=== PATIENT | male | born 1940 | race Caucasian/White ===

== ENCOUNTER → 2016-12-01 | Outpatient (CLI) | payer OTHER ==
[~2016-12-01] MED LIST: ASPI81TA48 PO; ATEN50TA PO; CYCL0.05 OPB; FEXO1TAB46 PO; GLIP-199 PO; HYG/25 PO; LISI-729 PO; MAGN200T4 PO; METF1000 PO; OMEGCAP2 PO; OMEP20CA9 PO; TRET0.0522 TOP; WLC625 PO
[2016-12-01 11:06] LABS: BLOOD UREA NITROGEN 22 mg/dl (7-18); BUN/CREATININE RATIO 21.7 (10-20)
== END | disposition home or self-care (01) ==
LOC: C.LAB 09:12
PROVIDERS: ATTEND Urology
DX: N28.1 Cyst of kidney, acquired (principal); N40.1 Benign prostatic hyperplasia with lower urinary tract symptoms

== ENCOUNTER → 2016-12-17 | Outpatient (CLI) | payer OTHER ==
[~2016-12-17] MED LIST changes: +GADAVIST IV PRN
--- NOTE | 2016-12-17 11:37 | DIAGNOSTIC IMAGING REPORT ---
ABDOMINAL MRI WITH AND WITHOUT INTRAVENOUS CONTRAST HISTORY: N28.1 Renal cyst, [id number] Benign prostatic hyperplasia wit TECHNIQUE: Multiplanar multisequence MRI of the abdomen were performed both before and after the intravenous administration of contrast to evaluate the kidneys. COMPARISON STUDY: None. FINDINGS: Multiple bilateral T2 hyperintense lesions seen throughout the kidneys. The majority of these are T1 hypointense. However, there is a 2 cm T1 hyperintense lesion within the lower pole of the right kidney and a 3.9 cm T1 hyperintense lesion within the upper pole the left kidney. No lesions demonstrate enhancement and are therefore consistent with a combination of simple and hemorrhagic/proteinaceous cyst. No solid enhancing renal masses identified. No hydronephrosis. The visualized gallbladder, spleen, pancreas, and adrenal glands are unremarkable. No retroperitoneal lymphadenopathy. A 7 mm cyst within the left hepatic lobe. IMPRESSION: Multiple bilateral renal cysts as described above. No solid enhancing renal masses. Electronically signed by: Nathan Buchanan M.D. 12/17/2016 11:35 AM Dictated Date/Time: 12/17/2016 11:28 AM
== END ==
LOC: C.MRI 08:32
PROVIDERS: ATTEND Urology
DX: N28.1 Cyst of kidney, acquired (principal); N40.1 Benign prostatic hyperplasia with lower urinary tract symptoms

== ENCOUNTER → 2017-09-30 | Outpatient (CLI) | payer OTHER ==
[~2017-09-30] MED LIST changes: -GADAVIST IV PRN; +TRET-55 TOP; -TRET0.0522 TOP
== END | disposition home or self-care (01) ==
LOC: C.LAB 10:51
PROVIDERS: ATTEND Urology
DX: N28.1 Cyst of kidney, acquired (principal)

== ENCOUNTER 2022-11-12 12:29 | Inpatient (IN) ==
[2022-11-12 13:36] LABS: Basophils # (auto) 0.03 K/uL (0.00-0.20); Basophils % (auto) 0.7 %; Eosinophils # (auto) 0.12 K/uL (0.00-0.50); Eosinophils % (auto) 2.6 %; Hematocrit (blood only) 43.9 % (42.0-52.0); Hemoglobin 15.5 g/dl (14.0-18.0); Immature Granulocytes # (auto) 0.01 K/uL (0.01-0.20); Immature Granulocytes % (auto) 0.2 %; Lymphocytes # (auto) 1.08 K/uL (1.20-3.40); Lymphocytes % (auto) 23.4 %; Mean Corpuscular Hemoglobin 33.9 pg (25.0-34.0); Mean Corpuscular Hgb Conc 35.3 g/dL (32.0-36.0); Mean Corpuscular Volume 96.1 fL (80.0-100.0); Mean Platelet Volume 10.2 fL (9.4-12.4); Monocytes # (auto) 0.39 K/uL (0.11-0.59); Monocytes % (auto) 8.5 %; Neutrophils # (auto) 2.98 K/uL (1.40-6.50); Neutrophils % (auto) 64.6 %; Platelet Count 163 K/uL (130-400); RDW Standard Deviation 45.8 fL (36.4-46.3); Red Blood Count 4.57 M/uL (4.70-6.10); White Blood Count 4.61 K/ul (4.8-10.8)
--- NOTE | 2022-11-12 13:46 | XRay Report ---
SINGLE VIEW CHEST CLINICAL HISTORY: Atypical chest pain. FINDINGS: A PA chest radiograph is compared to study dated 03/17/2013. The patient is status post midli ne sternotomy.The heart is enlarged noting atherosclerotic calcification of the thoracic aorta. The p ulmonary vasculature is noncongested. There is an indeterminant 4 cm opacity at the right lung base a t the left lung appears clear. No pleural effusion or pneumothorax is seen. The skeletal structures a re osteopenic. The bony thorax is grossly intact. IMPRESSION: 1. Cardiomegaly without radiographic evidence of congestive failure. 2. There is a 4 cm opacity at the right lung base. This is indeterminant and could represent a round pneumonia. A mass lesion is not excluded. A CT scan of the chest is recommended for further assessmen t ACT 112: Positive. There are findings on this exam that require communication between the performing entity and the patient following Patient Test Result Information Act ([place] Act 112) guidelines. Electronically signed by: Kris Gonzalez M.D. 11/12/2022 1:44 PM
[2022-11-12 14:00] LABS: Albumin Globulin Ratio 1.4 (0.9-2); Albumin Level 4.2 gm/dl (3.4-5.0); BUN Creatinine Ratio 23.8 (10-20); Bilirubin,Total 0.7 mg/dl (0.2-1.0); Calcium 9.7 mg/dl (8.6-10.3); Creatinine Clr Calc Pharmacy 49.1 ml/min; Est GFR (African American) 79.9 ml/min; Est GFR (Non-African American) 68.9 ml/min; Potassium 4.1 mmol/L (3.5-5.1); Total Protein 7.2 gm/dl (6.0-8.3)
[2022-11-12 14:06] LABS: Partial Thromboplastin Time 28.2 Seconds (21.0-31.0); Prothrombin Time 11.2 Seconds (9.0-12.0)
--- NOTE | 2022-11-12 15:14 | Emergency Department Note ---
Impression & Plan Non-ST elevation NV (NSTEMI) ED Provider Note HISTORY OF PRESENT ILLNESS: Patient is an 82-year-old male presenting for admission. 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 Patient denies any chest pain or shortness of breath. Denies any lightheadedness or dizziness. He does not have a pacemaker currently. Denies any DVT or PE history. He is not on any anticoagulation. ROS: as above PHYSICAL EXAM: Constitutional: Patient appears in no acute distress. HENT: Head: Normocephalic and atraumatic. Eyes: EOMI, PERRL Mouth/Throat: Mucous membranes moist. Neck: Trachea midline. Neck supple. Cardiovascular: RRR, No murmurs, rubs or gallops. Intact distal pulses. Pulmonary/Chest: No respiratory distress. Breath sounds clear and equal bilaterally. No wheezes or rales. Abdominal: Abdomen soft, no tenderness, rebound or guarding. Musculoskeletal: No edema, tenderness or deformity noted. Skin: Warm and dry. No rash, erythema, pallor or cyanosis Psychiatric: Appropriate mood and affect for situation. Neurological: Alert and keenly responsive. CN II-XII grossly intact, moving all extremities equally and fully. MDM: - Vitals signs showed hypertension. - History obtained via patient. Patient presents for admission. Patient was seen in cardiology clinic today and was referred to the ER for admission for pacemaker placement. Patient denies any complaints on arrival to the ER. Denies any chest pain or shortness of breath. He is not on any anticoagulation. - Chronic conditions affecting care: CAD; HTN; DM-2; HLD - Differential diagnoses include, but are not limited to: ACS; electrolyte abnormality; pneumonia; dysrhythmia - Order placed for continuous cardiac monitoring. At this time, monitor showed rate of 83 bpm with normal sinus rhythm, per my interpretation. - External medical records reviewed. Documentation from cardiology clinic note was reviewed. Per clinic note, the plan was "transfer to [facility] for inpatient evaluation and treatment, laboratory work to evaluate for underlying causes such as Lyme, resting echocardiogram to assess degree of aortic stenosis and LV systolic function prior to permanent pacemaker implantation." Per documentation, the patient had A-V dissociation on his EKG today. - EKG reviewed by myself showed normal sinus rhythm. Noted to have a first- degree heart block with an occasional PAC. Rate 81 bpm. QTc 427. No acute ischemic changes. - Laboratory workup interpreted by myself showed leukopenia (WBC 4.61); normal electrolytes; elevated troponin (22) - Lyme testing added to workup - Patient remained persistently hypertensive in ER. Given 5 mg IV hydralazine - CXR negative for pneumonia, per my interpretation. Radiology reports cardiomegaly and concern for 4 cm opacity in the right lung base which could be pneumonia versus mass lesion. - Aspirin not given to patient, as he is noted to have an allergy. 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 ASSESSMENT AND PLAN: Diagnosis: NSTEMI Plan: admit Past Med/Surg History Medical History CAD (coronary artery disease) HTN (hypertension) Hx of myocardial infarction Hyperlipidemia Osteoarthritis Statin myopathy T2DM (type 2 diabetes mellitus) Surgical History History of cataract extraction History of coronary artery bypass graft x 3 History of inguinal hernia repair Family History Father Alcoholism Brother Diabetes Mother No problems noted. Social History Smoking Status: Former smoker Tobacco Type: Cigarettes Hx Alcohol Use: No Preferred Language: Spanish Feels Safe at Home: Yes Allergies Allergies Allergy/AdvReac Type Severity Reaction Status Date / Time simvastatin Allergy Intermediate HIVES PER Verified 11/12/22 15:17 GMG acetaminophen AdvReac Severe renal Verified 11/12/22 15:17 complications PER GMG aspirin AdvReac Intermediate STOMACH Verified 11/12/22 15:17 PAIN PER GMG atorvastatin AdvReac Intermediate CRAMPING Verified 11/12/22 15:17 PER GMG cholestyramine AdvReac Intermediate KIDNEY Verified 11/12/22 15:17 PAIN PER GMG ezetimibe AdvReac Intermediate CRAMPING Verified 11/12/22 15:17 IN ANKLES, FEET TURNED INWARD PER GMG niacin AdvReac Intermediate MUSCLE Verified 11/12/22 15:17 PAIN PER [facility] Home Meds Home Medications Medication Instructions Recorded Confirmed fexofenadine 180 mg tablet 180 mg PO DAILY 02/21/20 11/12/22 (Sandee Allergy) metformin 1,000 mg tablet 1,000 mg PO BIDM 02/21/20 11/12/22 alirocumab 75 mg/mL subcutaneous 75 mg subcut Q14D 08/06/20 11/12/22 pen injector (Praluent Pen) blood sugar diagnostic (OneTouch #10 ea 08/06/20 09/30/22 Ultra Blue Test Strip) finasteride 5 mg tablet 5 mg PO DAILY 08/06/20 11/12/22 furosemide 20 mg tablet 20 mg PO DAILY 08/06/20 11/12/22 isosorbide mononitrate 60 mg 60 mg PO DAILY 08/06/20 11/12/22 tablet,extended release 24 hr magnesium oxide 200 mg PO BID 08/06/20 11/12/22 multivitamin 1 tab PO DAILY 08/06/20 11/12/22 terazosin 2 mg capsule 2 mg PO DAILY 08/06/20 11/12/22 tretinoin 0.05 % topical cream 1 applic topical HS 08/06/20 11/12/22 valsartan 320 mg tablet 160 mg PO BID 08/06/20 11/12/22 amlodipine 2.5 mg tablet 2.5 mg PO QAM 11/12/22 11/12/22 cyanocobalamin (vitamin B-12) 500 500 mcg PO DAILY 11/12/22 11/12/22 mcg tablet (Vitamin B-12) empagliflozin 25 mg tablet 25 mg PO QDL 11/12/22 11/12/22 (Jardiance) insulin aspart U-100 100 unit/mL 3 - 5 unit subcut TID 11/12/22 11/12/22 (3 mL) subcutaneous pen (Novolog FlexPen U-100 Insulin aspart) insulin glargine 100 unit/mL (3 7 unit subcut DAILY 11/12/22 11/12/22 mL) subcutaneous pen (Basaglar KwikPen U-100 Insulin) Previous Rx's Medication Instructions Recorded FreeStyle Devi 2 Sensor (flash #2 ea 10/16/20 glucose sensor) pen needle, diabetic 32 gauge x #400 ea 01/27/22" (BD Ultra-Fine Ashley Pen Needle) Results & Data (ED) Vital Signs Vital Signs - 24 hr 11/12/22 12:29 11/12/22 12:29 11/12/22 12:47 Temperature 36.6 C Temperature Source Temporal Artery Scan Pulse Rate 86 Pulse Rhythm Respiratory Rate 18 Blood Pressure 207/95 H Blood Pressure Mean 132 Pulse Oximetry 93 Oxygen Delivery Method Room Air Room Air Room Air Sepsis Recent Fever Within 48 Hours No Sepsis New/Unexplained Change in Mental Status N/A Sepsis Action Taken by Nursing No Action Required 11/12/22 12:47 Temperature Temperature Source Pulse Rate 83 Pulse Rhythm Regular Respiratory Rate 18 Blood Pressure Blood Pressure Mean Pulse Oximetry 94 Oxygen Delivery Method Room Air Sepsis Recent Fever Within 48 Hours Sepsis New/Unexplained Change in Mental Status Sepsis Action Taken by Nursing Laboratory Data 11/12/22 12:50 11/12/22 12:50 Lab Results 11/12/22 11/12/22 11/12/22 Range/Units 12:50 12:50 12:50 WBC 4.61 L (4.8-10.8) K/ul RBC 4.57 L (4.70-6.10) M/uL Hgb 15.5 (14.0-18.0) g/dl Hct 43.9 (42.0-52.0) % MCV 96.1 (80.0-100.0) fL MCH 33.9 (25.0-34.0) pg MCHC 35.3 (32.0-36.0) g/dL RDW Std Deviation 45.8 (36.4-46.3) fL RDW Coeff of Christiano 13.0 (11.5-14.5) % Plt Count 163 (130-400) K/uL MPV 10.2 (9.4-12.4) fL Immature Gran % (Auto) 0.2 % Neut % (Auto) 64.6 % Lymph % (Auto) 23.4 % [place] % (Auto) 8.5 % Eos % (Auto) 2.6 % Baso % (Auto) 0.7 % Neut # (Auto) 2.98 (1.40-6.50) K/uL Lymph # (Auto) 1.08 L (1.20-3.40) K/uL [place] # (Auto) 0.39 (0.11-0.59) K/uL Eos # (Auto) 0.12 (0.00-0.50) K/uL Baso # (Auto) 0.03 (0.00-0.20) K/uL Immature Gran # (Auto) 0.01 (0.01-0.20) K/uL PT 11.2 (9.0-12.0) Seconds INR 1.0 (0.9-1.1) APTT 28.2 (21.0-31.0) Seconds PTT Ratio 1.0 Sodium 138 (136-145) mmol/L Potassium 4.1 (3.5-5.1) mmol/L Chloride 104 (98-107) mmol/L Carbon Dioxide 26 (21-32) mmol/L Anion Gap 8 (3-11) BUN 24 H (6-23) mg/dl Creatinine 1.01 (0.6-1.4) mg/dl Est Cr Clr Drug Dosing 49.1 ml/min Est GFR ( Amer) 79.9 ml/min Est GFR (Non-Af Amer) 68.9 ml/min BUN/Creatinine Ratio 23.8 H (10-20) Glucose 114 H (70-99(Fasting)) mg/dl Calcium 9.7 (8.6-10.3) mg/dl Total Bilirubin 0.7 (0.2-1.0) mg/dl AST 21 (13-39) U/L ALT 15 (7-52) U/L Alkaline Phosphatase 77 (34-104) U/L Troponin I High Sens 22.0 H (0-20) pg/ml Total Protein 7.2 (6.0-8.3) gm/dl Albumin 4.2 (3.4-5.0) gm/dl Globulin 3.0 (2.5-4.0) gm/dl Albumin/Globulin Ratio 1.4 (0.9-2) Imaging Data Radiologist's Impression: Chest X-Ray 11/12/22 12:47 SINGLE VIEW CHEST CLINICAL HISTORY: Atypical chest pain. FINDINGS: A PA chest radiograph is compared to study dated 03/17/2013. The patient is status post midline sternotomy.The heart is enlarged noting atherosclerotic calcification of the thoracic aorta. The pulmonary vasculature is noncongested. There is an indeterminant 4 cm opacity at the right lung base at the left lung appears clear. No pleural effusion or pneumothorax is seen. The skeletal structures are osteopenic. The bony thorax is grossly intact. IMPRESSION: 1. Cardiomegaly without radiographic evidence of congestive failure. 2. There is a 4 cm opacity at the right lung base. This is indeterminant and co uld represent a round pneumonia. A mass lesion is not excluded. A CT scan of the chest is recommended for further assessment ACT 112: Positive. There are findings on this exam that require communication between the performing entity and the patient following Patient Test Result Information Act ([place] Act 112) guidelines. Electronically signed by: Kris Gonzalze M.D. 11/12/2022 1:44 PM Discharge Plan Visit Data Chief Complaint: Cardiac Assessment Stated Complaint: sent down to get pacemaker ED Provider: Lizabeth Francisco Discharge Problem: Non-ST elevation NV (NSTEMI) Forms Stand Alone Forms: [facility] Prescriptions Prescriptions: No Action (DME) pen needle, diabetic [BD Ultra-Fine Ashley Pen Needle] 32 gauge x 5/32" needle See Rx Instructions miscellaneous .MEDSUPPLY Qty: 400 3RF Rx Instructions: Inject 4 x day fexofenadine [Sandee Allergy] 180 mg tablet 180 mg PO DAILY metformin 1,000 mg tablet 1,000 mg PO BIDM magnesium oxide 400 mg magnesium capsule 200 mg PO BID finasteride 5 mg tablet 5 mg PO DAILY furosemide 20 mg tablet 20 mg PO DAILY isosorbide mononitrate 60 mg tablet extended release 24 hr 60 mg PO DAILY multivitamin Tablet 1 tab PO DAILY (DME) OneTouch Ultra Blue Test Strip Strip See Rx Instructions .ROUTE .MEDSUPPLY Qty: 10 Rx Instructions: test 2 times daily Praluent Pen 75 mg/mL pen injector 75 mg subcut Q14D Rx Instructions: inject into abdomen, thigh, or upper arm (deltoid muscle); rotate sites terazosin 2 mg capsule 2 mg PO DAILY valsartan 320 mg tablet 160 mg PO BID tretinoin 0.05 % cream 1 applic topical HS Rx Instructions: CAN MIX WITH PONDS CREAM. (DME) FreeStyle Edvi 2 Sensor Kit See Rx Instructions miscellaneous .MEDSUPPLY Qty: 2 11RF Rx Instructions: Change every 14 days to monitor blood sugars. amlodipine 2.5 mg tablet 2.5 mg PO QAM cyanocobalamin (vitamin B-12) [Vitamin B-12] 500 mcg Tablet 500 mcg PO DAILY insulin aspart U-100 [Novolog FlexPen U-100 Insulin] 100 unit/mL (3 mL) insulin pen 3 - 5 unit subcut TID MDD 18 units Rx Instructions: PER PT "TAKE 3 UNITS WITH BREAKFAST & LUNCH, THEN 5 UNITS WITH DINNER, DEPENDS ON WHAT I'M EATING". insulin glargine [Basaglar KwikPen U-100 Insulin] 100 unit/mL (3 mL) insulin pen 7 unit subcut DAILY Jardiance 25 mg tablet 25 mg PO QDL Rx Instructions: PER PT "WAS MAKING ME SICK IN THE STOMACH IF TOOK IN AM". Referrals Referrals: Smith Orozco MD [Primary Care Provider] -
[2022-11-12] MEDS ORDERED: hydrALAZINE HCL 20 MG/ML VIAL IV ONE (15:51)
--- NOTE | 2022-11-12 17:02 | History & Physical Report ---
Date of Service November 12, 2022 Assessment & Plan (1) Third degree heart block: Plan: Admit to telemetry Patient presenting by referral of outpatient cardiology office after EKG showed third-degree heart block. In the ED, repeat EKG demonstrates sinus rhythm with first-degree block and PVC Patient asymptomatic, BP stable Lyme testing negative, electrolytes acceptable Resting echo NPO after midnight for possible pacemaker Cardiology consult (2) CAD (coronary artery disease): Plan: Appears stable, no reports of chest pain Patient self stopped aspirin due to GI side effects Continue nitrate, patient is statin intolerant on Praluent injection (3) HTN (hypertension): Plan: BP elevated in ED, received IV hydralazine with improvement Continue home dose amlodipine, isosorbide, valsartan; make adjustments as needed (4) Ischemic cardiomyopathy: (5) Aortic stenosis: Plan: Echo 08/2021-EF 45 to 50%, grade 1 diastolic dysfunction, mild aortic stenosis Appears euvolemic, continue home dose Lasix (6) T2DM (type 2 diabetes mellitus): Plan: Hgb A1c 7.1 07/2022 Hold oral agents and utilize Lantus and NovoLog per protocol while hospitalized (7) Abnormal CXR: Plan: CXR shows a 4 cm opacity at the right lung base. This is indeterminant and could represent a round pneumonia. A mass lesion is not excluded. Patient denies pulmonary symptoms. Need non-emergent follow up chest CT (8) BPH with obstruction/lower urinary tract symptoms: Plan: Stable, continue finasteride and terazosin DVT PROPHYLAXIS SQ heparin, hold a.m. dose due to possible pacemaker Patient seen in collaboration with Dr. Lawrence. I spent a total of 75 minutes coordinating, documenting, and providing care for this patient excluding time spent in the performance of separately billed services. This included personally reviewing all current laboratories and imaging studies, medication reconciliation, outpatient chart review, and discussion with specialists. History of Present Illness Chief Complaint: Sent from cardiology office for evaluation of third-degree heart block Primary Care Provider: Smith Orozco MD 82-year-old male with PMH DM type II, CAD s/p CABG, BPH, HTN, ischemic cardiomyopathy EF 45 to 50%, aortic stenosis, and other problems listed below who was sent to the ED from outpatient cardiology office after EKG demonstrated third-degree heart block. History is obtained from the patient and review of outpatient PCP and cardiology records. Patient states that he was at the cardiology office today for routine visit. EKG subsequently showed third-degree heart block. Patient was sent to the ED for further evaluation. Patient reports he has been feeling well recently. He reports chronic exertional shortness of breath and fatigue which is at baseline. No chest pain or palpitations. Denies lightheadedness, dizziness, diaphoresis, syncopal events. No other recent illnesses, fevers, chills. He denies abdominal pain, nausea, vomiting, diarrhea. No urinary symptoms. In the ED, repeat EKG shows sinus rhythm with first-degree block with PVC. Patient was noted to be hypertensive and given hydralazine 5 mg IV. Allergies Allergy/AdvReac Type Severity Reaction Status Date / Time simvastatin Allergy Intermediate HIVES PER Verified 11/12/22 15:17 GMG acetaminophen AdvReac Severe renal Verified 11/12/22 15:17 complications PER GMG aspirin AdvReac Intermediate STOMACH Verified 11/12/22 15:17 PAIN PER GMG atorvastatin AdvReac Intermediate CRAMPING Verified 11/12/22 15:17 PER GMG cholestyramine AdvReac Intermediate KIDNEY Verified 11/12/22 15:17 PAIN PER GMG ezetimibe AdvReac Intermediate CRAMPING Verified 11/12/22 15:17 IN ANKLES, FEET TURNED INWARD PER GMG niacin AdvReac Intermediate MUSCLE Verified 11/12/22 15:17 PAIN PER GMG Home Medications Medication Instructions Recorded Confirmed Type fexofenadine 180 mg tablet 180 mg PO DAILY PRN Allergy 02/21/20 11/12/22 History (Sandee Allergy) Symptoms metformin 1,000 mg tablet 1,000 mg PO BIDM 02/21/20 11/12/22 History alirocumab 75 mg/mL subcutaneous 75 mg subcut Q14D 08/06/20 11/12/22 History pen injector (Praluent Pen) blood sugar diagnostic (OneTouch #10 ea 08/06/20 09/30/22 History Ultra Blue Test Strip) finasteride 5 mg tablet 5 mg PO DAILY 08/06/20 11/12/22 History furosemide 20 mg tablet 20 mg PO SUTUWEFRSA 08/06/20 11/12/22 History isosorbide mononitrate 60 mg 60 mg PO DAILY 08/06/20 11/12/22 History tablet,extended release 24 hr magnesium oxide 200 mg PO BID 08/06/20 11/12/22 History multivitamin 1 tab PO DAILY 08/06/20 11/12/22 History tretinoin 0.05 % topical cream 1 applic topical HS 08/06/20 11/12/22 History valsartan 320 mg tablet 320 mg PO DAILY 08/06/20 11/12/22 History FreeStyle Devi 2 Sensor (flash #2 ea 10/16/20 09/30/22 Rx glucose sensor) pen needle, diabetic 32 gauge x #400 ea 01/27/22 09/30/22 Rx /32" (BD Ultra-Fine Ashley Pen Needle) amlodipine 2.5 mg tablet 2.5 mg PO HS 11/12/22 11/12/22 History cyanocobalamin (vitamin B-12) 500 500 mcg PO DAILY 11/12/22 11/12/22 History mcg tablet (Vitamin B-12) empagliflozin 25 mg tablet 25 mg PO QDL 11/12/22 11/12/22 History (Jardiance) insulin aspart U-100 100 unit/mL 3 - 5 unit subcut TID 11/12/22 11/12/22 History (3 mL) subcutaneous pen (Novolog FlexPen U-100 Insulin aspart) insulin glargine 100 unit/mL (3 7 unit subcut HS 11/12/22 11/12/22 History mL) subcutaneous pen (Basaglar KwikPen U-100 Insulin) terazosin 5 mg capsule 5 mg PO DAILY 11/12/22 11/12/22 History Past Med/Surg History Medical History (Updated 11/12/22 @ 19:43 by ROSA Kaur) Aortic stenosis CAD (coronary artery disease) 1994 - [place] 2010 - cardiac cath; demonstrating widespread and greatly calcified CAD including a 70% LM stenosis, 80% mid LAD stenosis, 70% proximal LCX lesion and heavily disease distal stenosis, and a dominant RCA with occlusion with left to right filling; s/p CABG x 4 HTN (hypertension) Hyperlipidemia Ischemic cardiomyopathy Osteoarthritis Statin myopathy T2DM (type 2 diabetes mellitus) Surgical History History of cataract extraction History of inguinal hernia repair S/P CABG x 4 Family History Father , 60 Alcoholism Alcoholism Brother Diabetes Mother , 97 Old age No problems noted. Social History Smoking Status: Never smoker Tobacco Type: Cigarettes Hx Alcohol Use: No Preferred Language: Yemeni Communication Ability: Effective Manager Neonatal Required: No Beliefs That Will Affect Care: None Current Living Situation: Alone Feels Safe at Home: Yes Safety Concerns: Feels Safe At This Time Assistive Devices: Glasses Review of Systems Review of Systems: All systems reviewed & are unremarkable except as noted in HPI & below Physical Exam Physical Exam: please refer to Dr. Lawrence's addendum for physical exam Results & Data Results & Data Vital Signs (Past 12 Hours) Vital Signs Temp Pulse Resp BP Pulse Ox O2 Del Method 11/12/22 16:30 66 24 95 11/12/22 16:30 178/97 H 11/12/22 16:07 64 18 92 11/12/22 16:07 184/83 H 11/12/22 16:00 96 H 14 11/12/22 15:30 65 19 94 11/12/22 15:30 174/85 H 11/12/22 15:00 73 16 94 11/12/22 15:00 175/97 H 11/12/22 14:30 24 93 11/12/22 14:30 184/87 H 11/12/22 14:10 79 19 94 11/12/22 12:47 83 18 94 Room Air 11/12/22 12:47 Room Air 11/12/22 12:29 Room Air 11/12/22 12:29 36.6 C 86 18 207/95 H 93 Room Air Laboratory Results Short CBC 11/12/22 Range/Units 12:50 WBC 4.61 L (4.8-10.8) K/ul Hgb 15.5 (14.0-18.0) g/dl Hct 43.9 (42.0-52.0) % Plt Count 163 (130-400) K/uL BMP 11/12/22 12:50 Sodium 138 Potassium 4.1 Chloride 104 Carbon Dioxide 26 BUN 24 H Creatinine 1.01 Glucose 114 H Calcium 9.7 Liver Function 11/12/22 Range/Units 12:50 Total Bilirubin 0.7 (0.2-1.0) mg/dl AST 21 (13-39) U/L ALT 15 (7-52) U/L Alkaline Phosphatase 77 (34-104) U/L Albumin 4.2 (3.4-5.0) gm/dl Diagnostic Findings Chest X-Ray 11/12/22 12:47 SINGLE VIEW CHEST CLINICAL HISTORY: Atypical chest pain. FINDINGS: A PA chest radiograph is compared to study dated 03/17/2013. The patient is status post midline sternotomy.The heart is enlarged noting atherosclerotic calcification of the thoracic aorta. The pulmonary vasculature is noncongested. There is an indeterminant 4 cm opacity at the right lung base at the left lung appears clear. No pleural effusion or pneumothorax is seen. The skeletal structures are osteopenic. The bony thorax is grossly intact. IMPRESSION: 1. Cardiomegaly without radiographic evidence of congestive failure. 2. There is a 4 cm opacity at the right lung base. This is indeterminant and could represent a round pneumonia. A mass lesion is not excluded. A CT scan of the chest is recommended for further assessment ACT 112: Positive. There are findings on this exam that require communication between the performing entity and the patient following Patient Test Result Information Act ([place] Act 112) guidelines. Electronically signed by: Kris Gonzalez M.D. 11/12/2022 1:44 PM Code Status & VTE Plan VTE Prophylaxis Plan VTE Prophylaxis will be ordered: Yes Supervising Physician Co-Signing Physician Notes Pt seen and examined by me, care coordinated w/ L. Ling LEE, pls refer to her note above for further detail. Pt is an 82 yo M with DM type II, CAD s/p CABG, BPH, HTN, ischemic cardiomyopathy EF 45 to 50%, aortic stenosis, who was sent from outpatient cardiology office after EKG demonstrated third-degree heart block.Patient states that he was at the cardiology office today for routine visit. EKG subsequently showed third-degree heart block. Patient was sent to the ED for further evaluation. He reports chronic exertional shortness of breath and fatigue which is at baseline. No chest pain or palpitations. Denies lightheadedness, dizziness, diaphoresis, syncopal events. No other recent illnesses, fevers, chills. He is currently laying in bed in NAD. He is awake alert and answering appropriately. Lungs are clear to auscultation. Heart sounds regular w/ ectopy. Abdomen soft, nontender, nondistended. No LE edema. Moves extremities. Skin is warm and dry. In the ED, repeat EKG shows sinus rhythm with first-degree block with PVC. Patient was noted to be hypertensive and given hydralazine 5 mg IV. Cardiology consulted for further evaluation. CXR also abnormal w/ 4 cm opacity vs. mass, will obtain chest CT to further identify. Procalcitonin ordered. MD Howard
[2022-11-12 17:14] LABS: Magnesium 1.9 mg/dl (1.7-2.4)
[2022-11-12 17:21] LABS: Troponin I High Sensitivity 26.8 pg/ml (0-20)
[2022-11-12 17:26] LABS: Lyme Ab IgG w/WB Rflx Negative (Negative); Lyme Ab IgM w/WB Rflx Negative (Negative)
[2022-11-12] MEDS ORDERED: CARBOHYDRATES FOR HYPOGLYCEMIA PO PRN (18:18)
[2022-11-12] MEDS ORDERED: GLUCOSE 10 TAB/TUBE PO PRN (18:18)
[2022-11-12] MEDS ORDERED: GLUCAGON FOR INJ 1 MG VIAL SQ PRN (18:18)
[2022-11-12] MEDS ORDERED: FUROSEMIDE 20 MG TAB PO SCH (18:18)
[2022-11-12] MEDS ORDERED: ACETAMINOPHEN 325 MG TAB PO PRN (18:18)
[2022-11-12] MEDS ORDERED: GLUCOSE 40% GEL 15 GM TUBE PO PRN (18:18)
[2022-11-12] MEDS ORDERED: DEXTROSE 50% 50 ML SYRINGE IV PRN (18:18)
[2022-11-12] MEDS: INSULIN ASPART PER UNIT CHARGE SC SCH (20:29)
[2022-11-12] MEDS: amLODIPine BESYLATE 5 MG TAB PO SCH (20:30)
[2022-11-12] MEDS: LANTUS PER UNIT CHARGE SC SCH (20:30)
[2022-11-12] MEDS ORDERED: HEPARIN SOD 5,000 UNIT/0.5 ML VIAL SQ SCH (22:00)
[2022-11-13 04:35] LABS: Hematocrit (blood only) 43.7 % (42.0-52.0); Hemoglobin 15.3 g/dl (14.0-18.0); Mean Corpuscular Hemoglobin 33.8 pg (25.0-34.0); Mean Corpuscular Volume 96.7 fL (80.0-100.0); Mean Platelet Volume 10.1 fL (9.4-12.4); Platelet Count 160 K/uL (130-400); RDW Standard Deviation 46.5 fL (36.4-46.3); Red Blood Count 4.52 M/uL (4.70-6.10); White Blood Count 4.68 K/ul (4.8-10.8)
[2022-11-13 04:51] LABS: Calcium 9.2 mg/dl (8.6-10.3); Creatinine Clr Calc Pharmacy 49.5 ml/min; Est GFR (African American) 80.9 ml/min; Est GFR (Non-African American) 69.8 ml/min; Potassium 3.6 mmol/L (3.5-5.1)
[2022-11-13 07:04] LABS: Estimated Average Glucose 143 mg/dl; Hemoglobin A1C 6.6 % (4.5-5.6)
[2022-11-13] MEDS ORDERED: POTASSIUM CHLORIDE CRTAB 20 MEQ TABCR PO STA (07:27)
[2022-11-13] MEDS: INSULIN ASPART PER UNIT CHARGE SC SCH ×4 (07:28→21:22)
--- NOTE | 2022-11-13 08:13 | Cardiology Consultation ---
Date of Consultation November 13, 2022 Assessment & Plan (1) High degree atrioventricular block: (2) Ischemic cardiomyopathy: (3) Aortic stenosis: Moderate (4) HTN (hypertension): (5) Statin myopathy: (6) CAD (coronary artery disease): Status post bypass grafting 2010 Plan 82-year-old male with underlying known structural heart disease with prior coronary bypass grafting, mild LV dysfunction, moderate aortic stenosis who presented for routine cardiology appointment found to have transient high degree AV block with underlying conduction abnormalities noted on presentation ER with marked first-degree AV block intermittent second-degree AV block No evidence of acute coronary syndrome no recent fevers or infections Discussed in detail with patient and we will plan on proceeding with dual- chamber pacemaker later today Transient hypotension after a.m. medications. IV fluids to be administered and low-dose dopamine begun History of Present Illness Reason for Consultation: High degree AV block Requesting Physician: Dr. Shelton Attending Physician: Rylee Shelton MD History of Present Illness Patient is a an 82-year-old male referred for both issues and ongoing concerns 1. EKG with complete heart block with AV dissociation 2. ASCVD. Prior inferior AL in 1994 managed at [facility]. Catheterization in 2010 following abnormal nuclear stress testing demonstrating widespread and greatly calcified CAD including a 70% LM stenosis, 80% mid LAD stenosis, 70% proximal LCX lesion and heavily disease distal stenosis, and a dominant RCA with occlusion with left to right filling. 3. Status post 12/26/2010 off pump coronary artery bypass times 4 with a WHITT[place] - LAD and SVG's to the diagonal, intermediate artery, and obtuse marginal. 4. Ischemic cardiomyopathy, LVEF 45-50%. 5. Moderate valve disease, aortic stenosis and insufficiency, mitral regurgitation. 6. Labile hypertension. 7. Dyslipidemia. Intolerant to statins and ezetimibe. On Praluent. 8. Carotid artery disease. History of prior TIA with transient leg weakness. August 2021 Carotid duplex with stable internal carotid artery disease. +Heavily calcified plaque 9. Type II diabetes mellitus Patient referred for hospitalization after routine appointment at cardiology clinic yesterday. EKG done demonstrated transient third-degree AV block minimally symptomatic ventricular rate 50 Due to conduction abnormalities he was referred for hospitalization. He denies any chest pains dizziness leg syncope or near syncope though does become nauseated and occasionally lightheaded after a.m. medications. No recent fevers chills or cough. No tachypalpitations syncope or near syncope No acute weight loss or gain. No bleeding difficulties. Patient n.p.o. after midnight except for clear liquid breakfast this Allergies Allergy/AdvReac Type Severity Reaction Status Date / Time simvastatin Allergy Intermediate HIVES PER Verified 11/12/22 15:17 GMG acetaminophen AdvReac Severe renal Verified 11/12/22 15:17 complications PER GMG aspirin AdvReac Intermediate STOMACH Verified 11/12/22 15:17 PAIN PER GMG atorvastatin AdvReac Intermediate CRAMPING Verified 11/12/22 15:17 PER GMG cholestyramine AdvReac Intermediate KIDNEY Verified 11/12/22 15:17 PAIN PER GMG ezetimibe AdvReac Intermediate CRAMPING Verified 11/12/22 15:17 IN ANKLES, FEET TURNED INWARD PER GMG niacin AdvReac Intermediate MUSCLE Verified 11/12/22 15:17 PAIN PER GMG Home Medications Medication Instructions Recorded Confirmed Type fexofenadine 180 mg tablet 180 mg PO DAILY PRN Allergy 02/21/20 11/12/22 History (Snadee Allergy) Symptoms metformin 1,000 mg tablet 1,000 mg PO BIDM 02/21/20 11/12/22 History alirocumab 75 mg/mL subcutaneous 75 mg subcut Q14D 08/06/20 11/12/22 History pen injector (Praluent Pen) blood sugar diagnostic (OneTouch #10 ea 08/06/20 09/30/22 History Ultra Blue Test Strip) finasteride 5 mg tablet 5 mg PO DAILY 08/06/20 11/12/22 History furosemide 20 mg tablet 20 mg PO SUTUWEFRSA 08/06/20 11/12/22 History isosorbide mononitrate 60 mg 60 mg PO DAILY 08/06/20 11/12/22 History tablet,extended release 24 hr magnesium oxide 200 mg PO BID 08/06/20 11/12/22 History multivitamin 1 tab PO DAILY 08/06/20 11/12/22 History tretinoin 0.05 % topical cream 1 applic topical HS 08/06/20 11/12/22 History valsartan 320 mg tablet 320 mg PO DAILY 08/06/20 11/12/22 History FreeStyle Devi 2 Sensor (flash #2 ea 10/16/20 09/30/22 Rx glucose sensor) pen needle, diabetic 32 gauge x #400 ea 01/27/22 09/30/22 Rx 5/32" (BD Ultra-Fine Ashley Pen Needle) amlodipine 2.5 mg tablet 2.5 mg PO HS 11/12/22 11/12/22 History cyanocobalamin (vitamin B-12) 500 500 mcg PO DAILY 11/12/22 11/12/22 History mcg tablet (Vitamin B-12) empagliflozin 25 mg tablet 25 mg PO QDL 11/12/22 11/12/22 History (Jardiance) insulin aspart U-100 100 unit/mL 3 - 5 unit subcut TID 11/12/22 11/12/22 History (3 mL) subcutaneous pen (Novolog FlexPen U-100 Insulin aspart) insulin glargine 100 unit/mL (3 7 unit subcut HS 11/12/22 11/12/22 History mL) subcutaneous pen (Basaglar KwikPen U-100 Insulin) terazosin 5 mg capsule 5 mg PO DAILY 11/12/22 11/12/22 History Patient History Medical History Aortic stenosis CAD (coronary artery disease) 1994 - [place] 2010 - cardiac cath; demonstrating widespread and greatly calcified CAD including a 70% LM stenosis, 80% mid LAD stenosis, 70% proximal LCX lesion and heavily disease distal stenosis, and a dominant RCA with occlusion with left to right filling; s/p CABG x 4 HTN (hypertension) Hyperlipidemia Ischemic cardiomyopathy Osteoarthritis Statin myopathy T2DM (type 2 diabetes mellitus) Surgical History History of cataract extraction History of inguinal hernia repair S/P CABG x 4 Family History Father , 60 Alcoholism Alcoholism Brother Diabetes Mother , 97 Old age No problems noted. Social History Smoking Status: Never smoker Tobacco Type: Cigarettes Hx Alcohol Use: No Preferred Language: Icelandic Communication Ability: Effective Automobile Service Advisor Required: No Beliefs That Will Affect Care: None Current Living Situation: Alone Feels Safe at Home: Yes Safety Concerns: Feels Safe At This Time Assistive Devices: None Review of Systems Review of Systems: All systems reviewed & are unremarkable except as noted in HPI & below Physical Exam Constitutional: + thin; no acute distress Eyes: PERRL, conjunctivae normal, anicteric sclerae ENMT: external ear and nose normal, oropharynx normal Neck: trachea midline, no thyromegaly Respiratory: normal respiratory effort, lungs clear to auscultation Cardiovascular: Rate/Rhythm: regular rate and regular rhythm Heart Sounds: + murmur (Grade 2/6 systolic murmur, no diastolic) Vessels: no JVD Extremities: + edema (Trace pedal) Gastrointestinal (Abdomen): normal bowel sounds, soft, nontender, no hepatosplenomegaly Results & Data Vital Signs (Past 12 Hours) Vital Signs Temp Pulse Pulse Resp BP Pulse Ox O2 Del Method 11/13/22 03:00 36.5 C 43 L 18 133/63 92 Room Air 11/13/22 00:00 88 11/12/22 23:29 90 20 133/78 92 Room Air Laboratory Results Laboratory Results - last 24 hr 11/12/22 11/12/22 11/12/22 12:50 12:50 12:50 WBC 4.61 L RBC 4.57 L Hgb 15.5 Hct 43.9 MCV 96.1 MCH 33.9 MCHC 35.3 RDW Std Deviation 45.8 RDW Coeff of Christiano 13.0 Plt Count 163 MPV 10.2 Immature Gran % (Auto) 0.2 Neut % (Auto) 64.6 Lymph % (Auto) 23.4 Ness % (Auto) 8.5 Eos % (Auto) 2.6 Baso % (Auto) 0.7 Neut # (Auto) 2.98 Lymph # (Auto) 1.08 L Ness # (Auto) 0.39 Eos # (Auto) 0.12 Baso # (Auto) 0.03 Immature Gran # (Auto) 0.01 PT 11.2 INR 1.0 APTT 28.2 PTT Ratio 1.0 Sodium 138 Potassium 4.1 Chloride 104 Carbon Dioxide 26 Anion Gap 8 BUN 24 H Creatinine 1.01 Est Cr Clr Drug Dosing 49.1 Est GFR ( Amer) 79.9 Est GFR (Non-Af Amer) 68.9 BUN/Creatinine Ratio 23.8 H Glucose 114 H POC Glucose Estimat Average Glucose Hemoglobin A1c Calcium 9.7 Magnesium Total Bilirubin 0.7 AST 21 ALT 15 Alkaline Phosphatase 77 Troponin I High Sens 22.0 H Total Protein 7.2 Albumin 4.2 Globulin 3.0 Albumin/Globulin Ratio 1.4 Procalcitonin Lyme Disease IgG Ab Lyme Disease IgM Ab 11/12/22 11/12/22 11/12/22 15:38 16:43 18:38 WBC RBC Hgb Hct MCV MCH MCHC RDW Std Deviation RDW Coeff of Christiano Plt Count MPV Immature Gran % (Auto) Neut % (Auto) Lymph % (Auto) Ness % (Auto) Eos % (Auto) Baso % (Auto) Neut # (Auto) Lymph # (Auto) Ness # (Auto) Eos # (Auto) Baso # (Auto) Immature Gran # (Auto) PT INR APTT PTT Ratio Sodium Potassium Chloride Carbon Dioxide Anion Gap BUN Creatinine Est Cr Clr Drug Dosing Est GFR ( Amer) Est GFR (Non-Af Amer) BUN/Creatinine Ratio Glucose POC Glucose 113 H Estimat Average Glucose Hemoglobin A1c Calcium Magnesium 1.9 Total Bilirubin AST ALT Alkaline Phosphatase Troponin I High Sens 26.8 H Total Protein Albumin Globulin Albumin/Globulin Ratio Procalcitonin Lyme Disease IgG Ab Negative Lyme Disease IgM Ab Negative 11/12/22 11/12/22 11/13/22 19:25 20:22 04:05 WBC 4.68 L RBC 4.52 L Hgb 15.3 Hct 43.7 MCV 96.7 MCH 33.8 MCHC 35.0 RDW Std Deviation 46.5 H RDW Coeff of Christiano 13.0 Plt Count 160 MPV 10.1 Immature Gran % (Auto) Neut % (Auto) Lymph % (Auto) Ness % (Auto) Eos % (Auto) Baso % (Auto) Neut # (Auto) Lymph # (Auto) Ness # (Auto) Eos # (Auto) Baso # (Auto) Immature Gran # (Auto) PT INR APTT PTT Ratio Sodium Potassium Chloride Carbon Dioxide Anion Gap BUN Creatinine Est Cr Clr Drug Dosing Est GFR ( Amer) Est GFR (Non-Af Amer) BUN/Creatinine Ratio Glucose POC Glucose 181 H Estimat Average Glucose Hemoglobin A1c Calcium Magnesium Total Bilirubin AST ALT Alkaline Phosphatase Troponin I High Sens 30.2 H Total Protein Albumin Globulin Albumin/Globulin Ratio Procalcitonin Lyme Disease IgG Ab Lyme Disease IgM Ab 11/13/22 11/13/22 11/13/22 04:05 04:05 04:05 WBC RBC Hgb Hct MCV MCH MCHC RDW Std Deviation RDW Coeff of Christiano Plt Count MPV Immature Gran % (Auto) Neut % (Auto) Lymph % (Auto) Ness % (Auto) Eos % (Auto) Baso % (Auto) Neut # (Auto) Lymph # (Auto) Ness # (Auto) Eos # (Auto) Baso # (Auto) Immature Gran # (Auto) PT INR APTT PTT Ratio Sodium 138 Potassium 3.6 Chloride 106 Carbon Dioxide 24 Anion Gap 8 BUN 23 Creatinine 1.00 Est Cr Clr Drug Dosing 49.5 Est GFR ( Amer) 80.9 Est GFR (Non-Af Amer) 69.8 BUN/Creatinine Ratio 23.0 H Glucose 121 H POC Glucose Estimat Average Glucose 143 Hemoglobin A1c 6.6 H Calcium 9.2 Magnesium Total Bilirubin AST ALT Alkaline Phosphatase Troponin I High Sens Total Protein Albumin Globulin Albumin/Globulin Ratio Procalcitonin 0.06 Lyme Disease IgG Ab Lyme Disease IgM Ab 11/13/22 11/13/22 11/13/22 07:25 08:19 11:13 WBC RBC Hgb Hct MCV MCH MCHC RDW Std Deviation RDW Coeff of Christiano Plt Count MPV Immature Gran % (Auto) Neut % (Auto) Lymph % (Auto) Ness % (Auto) Eos % (Auto) Baso % (Auto) Neut # (Auto) Lymph # (Auto) Ness # (Auto) Eos # (Auto) Baso # (Auto) Immature Gran # (Auto) PT INR APTT PTT Ratio Sodium Potassium Chloride Carbon Dioxide Anion Gap BUN Creatinine Est Cr Clr Drug Dosing Est GFR ( Amer) Est GFR (Non-Af Amer) BUN/Creatinine Ratio Glucose POC Glucose 111 H 252 H Estimat Average Glucose Hemoglobin A1c Calcium Magnesium Total Bilirubin AST ALT Alkaline Phosphatase Troponin I High Sens Pending Total Protein Albumin Globulin Albumin/Globulin Ratio Procalcitonin Lyme Disease IgG Ab Lyme Disease IgM Ab Diagnostic Findings Echocardiogram 11/13/2022 Moderate left hypertrophy with wall motion abnormalities consistent with prior inferoposterior infarct with akinesis of the inferior wall and hypokinesis of the posterior wall, EF 4550% grade 1 diastolic dysfunction moderate aortic stenosis
[2022-11-13] MEDS: MAGNESIUM OXIDE 400 MG TAB PO SCH (08:23)
[2022-11-13] MEDS: FINASTERIDE 5 MG TAB PO SCH (08:24)
[2022-11-13] MEDS: ISOSORBIDE MONO EXTENDED REL 60 MG TABCR PO SCH (08:24)
[2022-11-13] MEDS: TERAZOSIN HCL 5 MG CAP PO SCH (08:24)
[2022-11-13] MEDS ORDERED: VALSARTAN 80 MG TAB PO SCH (09:00)
[2022-11-13] MEDS ORDERED: SODIUM CHLORIDE 0.9% 500 ML IV ONE (10:25)
[2022-11-13] MEDS ORDERED: STAT IV Infusion **Titration per Protocol STA (10:26)
[2022-11-13] MEDS ORDERED: DOPamine / D5W 400 MG/250 ML BAG IV SCH (10:30)
[2022-11-13] MEDS ORDERED: VANCOMYCIN HCL 1000MG/20ML VIAL ONE (13:10)
[2022-11-13] MEDS ORDERED: BUPIVACAINE 0.25% PF 30 ML VIAL ONE (13:10)
[2022-11-13] MEDS ORDERED: LIDOCAINE 1% LOCAL 20 ML VIAL ONE (13:10)
[2022-11-13] MEDS ORDERED: WATER, STERILE FOR INJ 10 ML VIAL ONE (13:10)
--- NOTE | 2022-11-13 15:13 | History & Physical Bridge Note ---
Date of Service November 13, 2022 History & Physical Bridge Note I have examined the patient, reviewed the History & Physical and in the interval since the performance of the History & Physical I have noted the following changes of clinical significance: pt with intermittent CHB and high degree bradycardia; recommend pacemaker prior to discharge; discussed the procedure and potential risks with the patient-he expressed an understanding and consents signed
--- NOTE | 2022-11-13 15:13 | Pre Anesthesia Assessment ---
Date of Service November 13, 2022 Pre Sedation Assessment Vital Signs Temp Pulse Pulse Resp BP BP Pulse Ox 11/13/22 14:55 101 H 14 128/73 95 11/13/22 14:30 40 L 16 11/13/22 14:26 40 L 16 11/13/22 14:26 112/56 L 11/13/22 14:20 53 L 21 11/13/22 14:20 105/53 L 11/13/22 13:35 111/49 L 11/13/22 13:35 53 L 28 H 11/13/22 13:30 56 L 30 H 11/13/22 13:30 116/51 L 11/13/22 13:25 135/67 11/13/22 13:25 79 18 11/13/22 13:20 115/56 L 11/13/22 13:20 58 L 26 H 11/13/22 13:15 129/65 11/13/22 13:15 79 16 11/13/22 13:10 115/58 L 11/13/22 13:10 52 L 16 11/13/22 13:05 117/49 L 11/13/22 13:05 56 L 22 11/13/22 13:00 71 19 11/13/22 13:00 123/56 L 11/13/22 12:55 62 22 11/13/22 12:55 111/59 L 11/13/22 12:50 63 30 H 11/13/22 12:50 121/59 L 11/13/22 12:45 121/50 L 11/13/22 12:45 66 23 11/13/22 12:41 122/63 11/13/22 12:41 54 L 19 11/13/22 12:35 62 23 11/13/22 12:35 128/63 11/13/22 12:30 65 16 11/13/22 12:30 94/55 L 11/13/22 12:26 75 15 11/13/22 12:26 144/65 H 11/13/22 12:15 78 17 11/13/22 12:15 140/71 11/13/22 12:10 136/72 11/13/22 12:10 77 25 H 11/13/22 12:00 59 L 21 11/13/22 12:00 138/70 11/13/22 11:55 65 17 11/13/22 11:55 120/56 L 11/13/22 11:50 113/57 L 11/13/22 11:50 54 L 33 H 11/13/22 11:45 78 24 11/13/22 11:45 117/57 L 11/13/22 11:41 51 L 30 H 11/13/22 11:41 109/55 L 11/13/22 11:35 105/49 L 11/13/22 11:35 54 L 29 H 11/13/22 11:30 61 35 H 11/13/22 11:30 113/60 11/13/22 11:25 115/54 L 11/13/22 11:25 58 L 33 H 11/13/22 11:20 105/49 L 11/13/22 11:20 65 29 H 11/13/22 11:16 56 L 17 11/13/22 11:16 101/54 L 11/13/22 11:10 105/61 11/13/22 11:10 74 19 11/13/22 11:05 51 L 21 11/13/22 11:05 94/39 L 11/13/22 11:01 45 L 18 11/13/22 11:01 94/49 L 11/13/22 11:00 50 L 11 L 11/13/22 10:55 39 L 13 11/13/22 10:55 111/51 L 11/13/22 10:50 45 L 19 11/13/22 10:50 112/53 L 11/13/22 10:45 43 L 22 11/13/22 10:45 98/48 L 11/13/22 10:42 41 L 16 11/13/22 10:40 51 L 20 11/13/22 10:40 93/46 L 11/13/22 10:38 49 L 25 H 11/13/22 10:36 59 L 12 11/13/22 10:35 105/49 L 11/13/22 10:35 68 16 105/49 L 11/13/22 10:30 40 L 17 11/13/22 10:30 99/46 L 11/13/22 10:25 93/45 L 11/13/22 10:25 35 L 15 11/13/22 10:19 77/42 L 11/13/22 10:19 47 L 25 H 11/13/22 10:18 82/50 L 11/13/22 10:18 49 L 18 11/13/22 10:17 53 L 19 11/13/22 10:17 79/55 L 11/13/22 10:10 43 L 19 11/13/22 10:10 84/47 L 11/13/22 10:00 43 L 18 11/13/22 09:30 62 15 11/13/22 10:15 50 L 82/50 L 11/13/22 08:00 67 11/13/22 08:24 36.8 C 63 18 176/101 H 96 11/13/22 03:00 36.5 C 43 L 18 133/63 92 11/13/22 00:00 88 11/12/22 23:29 90 20 133/78 92 11/12/22 18:18 11/12/22 19:21 36.7 C 83 18 165/82 H 92 11/12/22 18:22 36.6 C 89 20 193/109 H 95 11/12/22 17:30 75 20 95 11/12/22 17:30 182/83 H 11/12/22 17:00 58 L 19 95 11/12/22 17:00 157/83 H 11/12/22 16:30 66 24 95 11/12/22 16:30 178/97 H 11/12/22 16:07 64 18 92 11/12/22 16:07 184/83 H 11/12/22 16:00 96 H 14 11/12/22 15:30 65 19 94 11/12/22 15:30 174/85 H Pulse Ox O2 Del Method O2 Del Method 11/13/22 14:55 Room Air 11/13/22 14:30 11/13/22 14:26 11/13/22 14:26 11/13/22 14:20 11/13/22 14:20 11/13/22 13:35 11/13/22 13:35 11/13/22 13:30 11/13/22 13:30 11/13/22 13:25 11/13/22 13:25 11/13/22 13:20 11/13/22 13:20 11/13/22 13:15 11/13/22 13:15 11/13/22 13:10 11/13/22 13:10 11/13/22 13:05 11/13/22 13:05 11/13/22 13:00 11/13/22 13:00 11/13/22 12:55 11/13/22 12:55 11/13/22 12:50 11/13/22 12:50 11/13/22 12:45 11/13/22 12:45 11/13/22 12:41 11/13/22 12:41 11/13/22 12:35 11/13/22 12:35 11/13/22 12:30 11/13/22 12:30 11/13/22 12:26 11/13/22 12:26 11/13/22 12:15 11/13/22 12:15 11/13/22 12:10 11/13/22 12:10 11/13/22 12:00 11/13/22 12:00 11/13/22 11:55 11/13/22 11:55 11/13/22 11:50 11/13/22 11:50 11/13/22 11:45 11/13/22 11:45 11/13/22 11:41 11/13/22 11:41 11/13/22 11:35 11/13/22 11:35 11/13/22 11:30 11/13/22 11:30 11/13/22 11:25 11/13/22 11:25 11/13/22 11:20 11/13/22 11:20 11/13/22 11:16 11/13/22 11:16 11/13/22 11:10 11/13/22 11:10 11/13/22 11:05 11/13/22 11:05 11/13/22 11:01 11/13/22 11:01 11/13/22 11:00 11/13/22 10:55 11/13/22 10:55 11/13/22 10:50 11/13/22 10:50 11/13/22 10:45 11/13/22 10:45 11/13/22 10:42 11/13/22 10:40 11/13/22 10:40 11/13/22 10:38 11/13/22 10:36 11/13/22 10:35 11/13/22 10:35 11/13/22 10:30 11/13/22 10:30 11/13/22 10:25 11/13/22 10:25 11/13/22 10:19 11/13/22 10:19 11/13/22 10:18 11/13/22 10:18 11/13/22 10:17 11/13/22 10:17 11/13/22 10:10 11/13/22 10:10 11/13/22 10:00 11/13/22 09:30 11/13/22 10:15 11/13/22 08:00 11/13/22 08:24 Room Air 11/13/22 03:00 Room Air 11/13/22 00:00 11/12/22 23:29 Room Air 11/12/22 18:18 92 Room Air 11/12/22 19:21 Room Air 11/12/22 18:22 Room Air 11/12/22 17:30 11/12/22 17:30 11/12/22 17:00 11/12/22 17:00 11/12/22 16:30 11/12/22 16:30 11/12/22 16:07 11/12/22 16:07 11/12/22 16:00 11/12/22 15:30 11/12/22 15:30 Cardiovascular + bradycardic Respiratory normal respiratory effort, lungs clear to auscultation Pre-Sedation Airway Assessment Smoking Status: Never smoker Hx Sleep Apnea: No Short, Thick Neck: No Thyromental Distance: > or= 3.5 Finger Breadths Oral Cavity: + WNL Mallampati Class: III ASA: ASA3 NPO Status Date of Last Intake of Fluids: 11/13/22 Time of Last Intake of Fluids: 09:00 Date of Last Intake of Solid Food: 11/12/22 Time of Last Intake of Solid Foods: 20:00 Procedure Planning Contraindications for Sedation: none Current Medications Reviewed: Yes Notes The planned sedation has been discussed with the patient. Informed Consent was obtained. I have identified the patient, determined the appropriateness of sedation and have assessed the patient immediately prior to the procedure. All medicine(s) and interventions are by my order.
[2022-11-13] MEDS ORDERED: ceFAZolin 330 MG/ML 1 GM VIAL ONE (15:29)
[2022-11-13] MEDS ORDERED: MIDAZOLAM HCL 5 MG/ML 1 ML VIAL ONE (15:30)
[2022-11-13] MEDS ORDERED: fentaNYL citrate PF 100 MCG/2 ML VIAL ONE ×2 (15:30→16:24)
--- NOTE | 2022-11-13 16:49 | Operative Report ---
Post Operative Report Pre & Post Diagnosis CHB Operation Date: 11/13/22 14:00 <No data on this case meets the specified criteria> I identified the patient and participated in the time-out.: Yes Procedure Operation Date: 11/13/22 14:00 Actual Procedures p Pacer with A/V Leads (Dual) - Veena De La Torre DO Surgeon Veena De La Torre, DO Manager Data none Estimated Blood Loss 50 Findings Consistent with Post-Op Diagnosis Specimens none Description of Procedure see official report I attest to the content of the Intraoperative Record and any orders documented therein. Any exceptions are noted below.
--- NOTE | 2022-11-13 17:51 | Hospitalist Progress Note ---
Date of Service November 13, 2022 Assessment & Plan (1) Third degree heart block: Plan: Patient presenting by referral of outpatient cardiology office after EKG showed third-degree heart block. Continue to monitor on telemetry s/p device placement Lyme testing negative, electrolytes acceptable No thought to be related to ACS Cardiology on consult, s/p DcPM placement 11/13/2022 (2) CAD (coronary artery disease): Plan: Appears stable, no reports of chest pain Patient self stopped aspirin due to GI side effects -Continue IMDUR 60mg -patient is statin intolerant on Praluent injection last administered 11/08/2022 (3) HTN (hypertension): Plan: Transiently hypotensive this morning after am medications; now hypertensive s/p device placement -Resume home regimen amlodipine 2.5 qhs, IMDUR 60, Lasix (except thu/) -Reduced Valsartan dosage 320-->160 BID (4) Ischemic cardiomyopathy: Plan: 40-45% EF on ECHO 11/13/2022 (5) Aortic stenosis: Plan: Echo 08/2021-EF 45 to 50%, grade 1 diastolic dysfunction, mild aortic stenosis; appears stable on repeat ECHO Appears euvolemic, continue home dose Lasix (6) T2DM (type 2 diabetes mellitus): Plan: Hgb A1c 7.1 07/2022 Hold oral agents and utilize Lantus and NovoLog per protocol while hospitalized (7) Abnormal CXR: Plan: CXR shows a 4 cm opacity at the right lung base. This is indeterminant and could represent a round pneumonia. A mass lesion is not excluded. Patient denies pulmonary symptoms. Need non-emergent follow up chest CT (8) BPH with obstruction/lower urinary tract symptoms: Plan: Stable, continue finasteride and terazosin SCDs Dispo per Cardiology Admission and Anticipated Discharge Date Admission Date: November 12, 2022 Results & Data Results & Data Vital Signs (Past 12 Hours) Vital Signs Temp Pulse Pulse Resp BP BP Pulse Ox 11/13/22 17:29 74 11/13/22 17:14 67 17 95 11/13/22 17:14 163/84 H 11/13/22 17:12 75 18 94 11/13/22 17:12 156/84 H 11/13/22 17:10 79 18 99 11/13/22 14:55 101 H 14 128/73 95 11/13/22 14:30 40 L 16 11/13/22 14:26 40 L 16 11/13/22 14:26 112/56 L 11/13/22 14:20 53 L 21 11/13/22 14:20 105/53 L 11/13/22 13:35 111/49 L 11/13/22 13:35 53 L 28 H 11/13/22 13:30 56 L 30 H 11/13/22 13:30 116/51 L 11/13/22 13:25 135/67 11/13/22 13:25 79 18 11/13/22 13:20 115/56 L 11/13/22 13:20 58 L 26 H 11/13/22 13:15 129/65 11/13/22 13:15 79 16 11/13/22 13:10 115/58 L 11/13/22 13:10 52 L 16 11/13/22 13:05 117/49 L 11/13/22 13:05 56 L 22 11/13/22 13:00 71 19 11/13/22 13:00 123/56 L 11/13/22 12:55 62 22 11/13/22 12:55 111/59 L 11/13/22 12:50 63 30 H 11/13/22 12:50 121/59 L 11/13/22 12:45 121/50 L 11/13/22 12:45 66 23 11/13/22 12:41 122/63 11/13/22 12:41 54 L 19 11/13/22 12:35 62 23 11/13/22 12:35 128/63 11/13/22 12:30 65 16 11/13/22 12:30 94/55 L 11/13/22 12:26 75 15 11/13/22 12:26 144/65 H 11/13/22 12:15 78 17 11/13/22 12:15 140/71 11/13/22 12:10 136/72 11/13/22 12:10 77 25 H 11/13/22 12:00 59 L 21 11/13/22 12:00 138/70 11/13/22 11:55 65 17 11/13/22 11:55 120/56 L 11/13/22 11:50 113/57 L 11/13/22 11:50 54 L 33 H 11/13/22 11:45 78 24 11/13/22 11:45 117/57 L 11/13/22 11:41 51 L 30 H 11/13/22 11:41 109/55 L 11/13/22 11:35 105/49 L 11/13/22 11:35 54 L 29 H 11/13/22 11:30 61 35 H 11/13/22 11:30 113/60 11/13/22 11:25 115/54 L 11/13/22 11:25 58 L 33 H 11/13/22 11:20 105/49 L 11/13/22 11:20 65 29 H 11/13/22 11:16 56 L 17 11/13/22 11:16 101/54 L 11/13/22 11:10 105/61 11/13/22 11:10 74 19 11/13/22 11:05 51 L 21 11/13/22 11:05 94/39 L 11/13/22 11:01 45 L 18 11/13/22 11:01 94/49 L 11/13/22 11:00 50 L 11 L 11/13/22 10:55 39 L 13 11/13/22 10:55 111/51 L 11/13/22 10:50 45 L 19 11/13/22 10:50 112/53 L 11/13/22 10:45 43 L 22 11/13/22 10:45 98/48 L 11/13/22 10:42 41 L 16 11/13/22 10:40 51 L 20 11/13/22 10:40 93/46 L 11/13/22 10:38 49 L 25 H 11/13/22 10:36 59 L 12 11/13/22 10:35 105/49 L 11/13/22 10:35 68 16 105/49 L 11/13/22 10:30 40 L 17 11/13/22 10:30 99/46 L 11/13/22 10:25 93/45 L 11/13/22 10:25 35 L 15 11/13/22 10:19 77/42 L 11/13/22 10:19 47 L 25 H 11/13/22 10:18 82/50 L 11/13/22 10:18 49 L 18 11/13/22 10:17 53 L 19 11/13/22 10:17 79/55 L 11/13/22 10:10 43 L 19 11/13/22 10:10 84/47 L 11/13/22 10:00 43 L 18 11/13/22 09:30 62 15 11/13/22 10:15 50 L 82/50 L 11/13/22 08:00 67 11/13/22 08:24 36.8 C 63 18 176/101 H 96 O2 Del Method 11/13/22 17:29 11/13/22 17:14 11/13/22 17:14 11/13/22 17:12 11/13/22 17:12 11/13/22 17:10 11/13/22 14:55 Room Air 11/13/22 14:30 11/13/22 14:26 11/13/22 14:26 11/13/22 14:20 11/13/22 14:20 11/13/22 13:35 11/13/22 13:35 11/13/22 13:30 11/13/22 13:30 11/13/22 13:25 11/13/22 13:25 11/13/22 13:20 11/13/22 13:20 11/13/22 13:15 11/13/22 13:15 11/13/22 13:10 11/13/22 13:10 11/13/22 13:05 11/13/22 13:05 11/13/22 13:00 11/13/22 13:00 11/13/22 12:55 11/13/22 12:55 11/13/22 12:50 11/13/22 12:50 11/13/22 12:45 11/13/22 12:45 11/13/22 12:41 11/13/22 12:41 11/13/22 12:35 11/13/22 12:35 11/13/22 12:30 11/13/22 12:30 11/13/22 12:26 11/13/22 12:26 11/13/22 12:15 11/13/22 12:15 11/13/22 12:10 11/13/22 12:10 11/13/22 12:00 11/13/22 12:00 11/13/22 11:55 11/13/22 11:55 11/13/22 11:50 11/13/22 11:50 11/13/22 11:45 11/13/22 11:45 11/13/22 11:41 11/13/22 11:41 11/13/22 11:35 11/13/22 11:35 11/13/22 11:30 11/13/22 11:30 11/13/22 11:25 11/13/22 11:25 11/13/22 11:20 11/13/22 11:20 11/13/22 11:16 11/13/22 11:16 11/13/22 11:10 11/13/22 11:10 11/13/22 11:05 11/13/22 11:05 11/13/22 11:01 11/13/22 11:01 11/13/22 11:00 11/13/22 10:55 11/13/22 10:55 11/13/22 10:50 11/13/22 10:50 11/13/22 10:45 11/13/22 10:45 11/13/22 10:42 11/13/22 10:40 11/13/22 10:40 11/13/22 10:38 11/13/22 10:36 11/13/22 10:35 11/13/22 10:35 11/13/22 10:30 11/13/22 10:30 11/13/22 10:25 11/13/22 10:25 11/13/22 10:19 11/13/22 10:19 11/13/22 10:18 11/13/22 10:18 11/13/22 10:17 11/13/22 10:17 11/13/22 10:10 11/13/22 10:10 11/13/22 10:00 11/13/22 09:30 11/13/22 10:15 11/13/22 08:00 11/13/22 08:24 Room Air Laboratory Results Short CBC 11/13/22 Range/Units 04:05 WBC 4.68 L (4.8-10.8) K/ul Hgb 15.3 (14.0-18.0) g/dl Hct 43.7 (42.0-52.0) % Plt Count 160 (130-400) K/uL BMP 11/13/22 04:05 Sodium 138 Potassium 3.6 Chloride 106 Carbon Dioxide 24 BUN 23 Creatinine 1.00 Glucose 121 H Calcium 9.2 Diagnostic Findings No further imaging to review Medications Administered Home Medications Medication Instructions Recorded Confirmed Last Taken fexofenadine 180 mg tablet 180 mg PO DAILY PRN Allergy 02/21/20 11/12/22 11/12/22 (Sandee Allergy) Symptoms metformin 1,000 mg tablet 1,000 mg PO BIDM 02/21/20 11/12/22 11/12/22 08:00 alirocumab 75 mg/mL subcutaneous 75 mg subcut Q14D 08/06/20 11/12/22 11/08/22 pen injector (Praluent Pen) blood sugar diagnostic (OneTouch #10 ea 08/06/20 09/30/22 Unknown Ultra Blue Test Strip) finasteride 5 mg tablet 5 mg PO DAILY 08/06/20 11/12/22 11/12/22 furosemide 20 mg tablet 20 mg PO SUTUWEFRSA 08/06/20 11/12/22 11/12/22 isosorbide mononitrate 60 mg 60 mg PO DAILY 08/06/20 11/12/22 11/12/22 tablet,extended release 24 hr magnesium oxide 200 mg PO BID 08/06/20 11/12/22 11/12/22 08:00 multivitamin 1 tab PO DAILY 08/06/20 11/12/22 11/12/22 tretinoin 0.05 % topical cream 1 applic topical HS 08/06/20 11/12/22 11/11/22 valsartan 320 mg tablet 320 mg PO DAILY 08/06/20 11/12/22 11/12/22 08:00 FreeStyle Devi 2 Sensor (flash #2 ea 10/16/20 09/30/22 Unknown glucose sensor) pen needle, diabetic 32 gauge x #400 ea 01/27/22 09/30/22 Unknown " (BD Ultra-Fine Ashley Pen Needle) amlodipine 2.5 mg tablet 2.5 mg PO HS 11/12/22 11/12/22 11/12/22 cyanocobalamin (vitamin B-12) 500 500 mcg PO DAILY 11/12/22 11/12/22 11/12/22 mcg tablet (Vitamin B-12) empagliflozin 25 mg tablet 25 mg PO QDL 11/12/22 11/12/22 11/11/22 (Jardiance) insulin aspart U-100 100 unit/mL 3 - 5 unit subcut TID 11/12/22 11/12/22 11/12/22 08:00 (3 mL) subcutaneous pen (Novolog FlexPen U-100 Insulin aspart) insulin glargine 100 unit/mL (3 7 unit subcut HS 11/12/22 11/12/22 11/12/22 mL) subcutaneous pen (Basaglar KwikPen U-100 Insulin) terazosin 5 mg capsule 5 mg PO DAILY 11/12/22 11/12/22 Unknown Active Medications Generic Name Dose Route Start Last Admin Trade Name Freq PRN Reason Stop Dose Admin Amlodipine Besylate 2.5 mg 11/12/22 21:00 11/12/22 20:30 Amlodipine Besylate 5 Mg Tab PO 12/12/22 20:59 2.5 mg HS ROSALVA Administration Finasteride 5 mg 11/13/22 09:00 11/13/22 08:24 Finasteride 5 Mg Tab PO 12/13/22 08:59 5 mg DAILY ROSALVA Administration Furosemide 20 mg 11/12/22 18:18 11/12/22 19:39 Furosemide 20 Mg Tab PO 12/12/22 18:17 20 mg SUTUWEFRSA ROSALVA Administration Dopamine HCl/Dextrose 400 mg in 250 mls @ 0 mls/hr 11/13/22 10:30 11/13/22 17:23 Dopamine / D5w IV 12/13/22 10:29 0 mcg/kg/min .Q0M ROSALVA 0 mls/hr Titration Protocol 0 MCG/KG/MIN Insulin Aspart 0 units 11/12/22 21:00 11/13/22 17:20 Insulin Aspart Per Unit Charge CO 12/12/22 20:59 3 units ACHS ROSALVA Administration Insulin Glargine 7 units 11/12/22 21:00 11/12/22 20:30 Lantus Per Unit Charge CO 12/12/22 20:59 7 units HS ROSALVA Administration Isosorbide Mononitrate 60 mg 11/13/22 09:00 11/13/22 08:24 Isosorbide [place] Extended Rel 60 Mg Tabcr PO 12/13/22 08:59 60 mg DAILY ROSALVA Administration Magnesium Oxide 400 mg 11/13/22 09:00 11/13/22 08:23 Magnesium Oxide 400 Mg Tab PO 12/13/22 08:59 400 mg DAILY ROSALVA Administration Terazosin HCl 5 mg 11/13/22 09:00 11/13/22 08:24 Terazosin Hcl 5 Mg Cap PO 12/13/22 08:59 5 mg DAILY ROSALVA Administration
[2022-11-13] MEDS: amLODIPine BESYLATE 5 MG TAB PO SCH (21:20)
[2022-11-13] MEDS: LANTUS PER UNIT CHARGE SC SCH (21:22)
--- NOTE | 2022-11-13 21:30 | XRay Report ---
SINGLE VIEW CHEST CLINICAL HISTORY: Status post pacemaker implantation. FINDINGS: An AP, portable, upright chest radiograph is compared to study dated 11/12/2022. The examina tion is degraded by portable technique and patient rotation. The patient is status post midline lopez otomy. A 2-lead cardiac pacemaker has been placed. Leads project over the right atrial appendage and the right ventricle. The heart is enlarged noting atherosclerotic calcification of the thoracic aorta . The pulmonary vasculature is noncongested. A 3 cm opacity is again seen projecting over the right l raymundo base. There is bibasilar scarring/atelectasis. No airspace consolidation typical for pneumonia or large pleural effusion is identified. No pneumothorax is seen. The skeletal structures are osteopeni c. There are chronic/healed left-sided rib fractures. IMPRESSION: 1. A 2-lead cardiac pacemaker has been implanted as above. No pneumothorax is identified post procedu re. 2. Cardiomegaly without radiographic evidence of congestive failure. 3. A 3 cm nodular opacity is again seen projecting over the right lung base. A chest CT is recommende d in follow-up. 4. No airspace consolidation or large pleural effusion is identified. ACT 112: Negative or not required by law. Electronically signed by: Kris Gonzalez M.D. 11/13/2022 9:28 PM
[2022-11-14 06:38] LABS: Hematocrit (blood only) 41.9 % (42.0-52.0); Hemoglobin 14.9 g/dl (14.0-18.0); Mean Corpuscular Hemoglobin 33.9 pg (25.0-34.0); Mean Corpuscular Hgb Conc 35.6 g/dL (32.0-36.0); Mean Corpuscular Volume 95.4 fL (80.0-100.0); Platelet Count 153 K/uL (130-400); RDW Coefficient of Variation 12.8 % (11.5-14.5); RDW Standard Deviation 45.1 fL (36.4-46.3); Red Blood Count 4.39 M/uL (4.70-6.10); White Blood Count 7.69 K/ul (4.8-10.8)
[2022-11-14 06:58] LABS: BUN Creatinine Ratio 25.8 (10-20); Creatinine Clr Calc Pharmacy 55.7 ml/min; Est GFR (African American) 92.3 ml/min; Est GFR (Non-African American) 79.6 ml/min; Potassium 3.9 mmol/L (3.5-5.1)
[2022-11-14] MEDS: ISOSORBIDE MONO EXTENDED REL 60 MG TABCR PO SCH (08:39)
[2022-11-14] MEDS: MAGNESIUM OXIDE 400 MG TAB PO SCH (08:39)
[2022-11-14] MEDS: FINASTERIDE 5 MG TAB PO SCH (08:39)
[2022-11-14] MEDS: TERAZOSIN HCL 5 MG CAP PO SCH (08:39)
[2022-11-14] MEDS: INSULIN ASPART PER UNIT CHARGE SC SCH ×2 (08:39→12:53)
[2022-11-14] MEDS ORDERED: VALSARTAN 80 MG TAB PO SCH (09:00)
--- NOTE | 2022-11-14 11:08 | Cardiology Progress Note ---
Date of Service November 14, 2022 Assessment & Plan (1) High degree atrioventricular block: (2) Ischemic cardiomyopathy: (3) Aortic stenosis: Plan: Moderate (4) HTN (hypertension): (5) Statin myopathy: (6) CAD (coronary artery disease): Plan: Status post bypass grafting 2011 Plan 82-year-old male with underlying known structural heart disease with prior coronary bypass grafting, mild LV dysfunction, moderate aortic stenosis who presented for routine cardiology appointment found to have transient high degree AV block with underlying conduction abnormalities noted on presentation ER with marked first-degree AV block intermittent second-degree AV block No evidence of acute coronary syndrome no recent fevers or infections Discussed in detail with patient and we will plan on proceeding with dual- chamber pacemaker later today Transient hypotension after a.m. medications. IV fluids to be administered and low-dose dopamine begun 11/14/2022 Patient underwent dual-chamber pacemaker yesterday. Site healing well. Device functioning normally. Plan: Add low-dose beta-layne to her regimen given frequent ventricular ectopy and hypertension. Begin metoprolol succinate 12.5 mg twice per day Patient stable for discharge after device interrogation Cardiology clinic contacted to arrange wound check and device follow-up Admission and Anticipated Discharge Date Admission Date: November 12, 2022 Subjective Patient seen and examined, chart, medications, telemetry reviewed Patient feels well underwent dual-chamber pacemaker insertion yesterday with uneventfully. Pacemaker site healing well Blood pressure somewhat labile but no low pressure No nausea or vomiting slept well last night Review of Systems Review of Systems: All systems reviewed & are unremarkable except as noted in Subjective Physical Exam Constitutional: + thin; no acute distress Eyes: PERRL, conjunctivae normal, anicteric sclerae ENMT: external ear and nose normal, oropharynx normal Neck: trachea midline, no thyromegaly Respiratory: normal respiratory effort, lungs clear to auscultation Cardiovascular: Rate/Rhythm: regular rate and regular rhythm Heart Sounds: + murmur (Grade 2/6 systolic murmur, no diastolic) Vessels: no JVD Extremities: + edema (Trace pedal) Chest (Breasts): Chest: + pacemaker Gastrointestinal (Abdomen): normal bowel sounds, soft, nontender, no hepatosplenomegaly Results & Data Vital Signs (Past 12 Hours) Vital Signs Temp Pulse Pulse Resp BP Pulse Ox O2 Del Method 11/14/22 08:18 36.7 C 88 16 183/82 H 94 Room Air 11/14/22 08:00 99 H 11/14/22 03:43 36.7 C 83 16 171/85 H 92 Room Air 11/14/22 00:00 78 11/13/22 23:38 37.0 C 76 16 173/83 H 91 Room Air Laboratory Results Laboratory Results - last 24 hr 11/13/22 11/13/22 11/13/22 08:19 11:13 17:04 WBC RBC Hgb Hct MCV MCH MCHC RDW Std Deviation RDW Coeff of Christiano Plt Count MPV Sodium Potassium Chloride Carbon Dioxide Anion Gap BUN Creatinine Est Cr Clr Drug Dosing Est GFR ( Amer) Est GFR (Non-Af Amer) BUN/Creatinine Ratio Glucose POC Glucose 252 H 133 H Calcium Magnesium Troponin I High Sens 41.0 H 11/13/22 11/14/22 11/14/22 20:54 06:09 06:09 WBC 7.69 RBC 4.39 L Hgb 14.9 Hct 41.9 L MCV 95.4 MCH 33.9 MCHC 35.6 RDW Std Deviation 45.1 RDW Coeff of Christiano 12.8 Plt Count 153 MPV 10.0 Sodium 138 Potassium 3.9 Chloride 107 Carbon Dioxide 23 Anion Gap 8 BUN 23 Creatinine 0.89 Est Cr Clr Drug Dosing 55.7 Est GFR ( Amer) 92.3 Est GFR (Non-Af Amer) 79.6 BUN/Creatinine Ratio 25.8 H Glucose 133 H POC Glucose 158 H Calcium 9.0 Magnesium 2.0 Troponin I High Sens 11/14/22 08:16 WBC RBC Hgb Hct MCV MCH MCHC RDW Std Deviation RDW Coeff of Christiano Plt Count MPV Sodium Potassium Chloride Carbon Dioxide Anion Gap BUN Creatinine Est Cr Clr Drug Dosing Est GFR ( Amer) Est GFR (Non-Af Amer) BUN/Creatinine Ratio Glucose POC Glucose 149 H Calcium Magnesium Troponin I High Sens
[2022-11-14] MEDS ORDERED: METOPROLOL SUCC 25MG EXT REL TAB PO SCH (11:15)
--- NOTE | 2022-11-14 12:22 | CT Scan Report ---
CT OF THE CHEST WITHOUT IV CONTRAST CLINICAL HISTORY: Abnormal chest radiograph. COMPARISON STUDY: Chest radiograph November 13, 2022. TECHNIQUE: Axial images of the chest were obtained without IV contrast. Images were reviewed in the axial, sagittal, and coronal planes. IV contrast was not administered for this examination. Automat ed exposure control was utilized for the study. A dose lowering technique was utilized adhering to t he principles of ALARA. FINDINGS: A left subclavian pacer is in place. There is moderate cardiomegaly and extensive coronary artery catheterization. There is no pericardial effusion. Median sternotomy and postoperative findin gs from bypass grafting are noted. There is an enlarged right paratracheal lymph node on image 95 of 249 which measures 2.2 x 1.8 cm. There is a prominent subcarinal lymph node which measures 0.9 cm in short axis diameter. There is no pneumothorax. No pleural effusion is identified. Subpleural opacitie s reflect atelectasis. Note is made of a spiculated 3.5 x 2.5 cm right middle lobe mass on image 155. This corresponds to the finding on chest radiograph. There is also a suspicious irregular 8 mm nodul e along the minor fissure. Several additional smaller adjacent pleural/pulmonary nodules are noted. N o suspicious lesions within the bony thorax are noted. Water attenuation lesions within the visualize d kidneys represent cysts. An intermediate attenuation lesion arising from the upper pole of the left kidney likely reflects a proteinaceous cyst within correlating with prior MRI. There is a new 2.8 cm segment 7 hypodense mass on image 192. There is also a 1.4 cm inferior right hepatic lobe lesion on image 234 and a 1.3 cm segment 6 lesion on image 212. These were not present on prior abdominal MRI. IMPRESSION: 1. 3.5 x 2.5 cm spiculated right middle lobe mass suggestive of bronchogenic carcinoma. Pathologic ri ght paratracheal lymphadenopathy. Pulmonary consultation is recommended. 2. Multiple hepatic lesions, new since MRI of December 17, 2016. These are highly suggestive of metasta ses. 3. Multiple additional right lung nodules which measure up to 8 mm. These may represent pleural impla nts or satellite lesions. ACT 112: Positive. There are findings on this exam that require communication between the performing entity and the patient following Patient Test Result Information Act ([place] Act 112) guidelines. Electronically signed by: Justin Patel M.D. 11/14/2022 12:19 PM
--- NOTE | 2022-11-14 17:53 | Pulmonary Consultation ---
Date of Consultation November 14, 2022 Assessment & Plan (1) High degree atrioventricular block: (2) Abnormal CXR: (3) CAD (coronary artery disease): (4) T2DM (type 2 diabetes mellitus): (5) HTN (hypertension): Plan ASSESSMENT/PLAN: 1. High Degree Heart Block-Complete Heart Block -S/P Dual Chamber Pacemaker -F/U with Cardiology 2. Abnormal CXR/Chest CT Scan -Pulmonary Nodules followed since 2013 with serial scans performed at [facility] -currently RML spiculated Nodule -liver/hepatic densities -multiple right lung nodules/Right Paratracheal Lymphadenopathy -recommend PET/CT Scan -follow-up at [facility] -evaluate for bronchoscopy/EBUS/Lymph node Bx 3. Ischemic Heart Dz -f/U with Cardiology -continue home medications -ECHO: EF=45-50% with 4. DM-type II -accuchecks -continue home medications Pulmonary time spent examining and speaking to patient and his family, reviewing all of his diagnostic studies and discussing his pulmonary management exclusive any invasive procedures or family conferences today was 48 minutes. History of Present Illness Reason for Consultation: Abnormal chest CT scan showing right upper lobe spiculated density and multiple pulmonary nodules. Requesting Physician: Rylee Shelton MD Attending Physician: Rylee Shelton MD History of Present Illness Mr. Reynolds is an 82-year-old gentleman with an underlying history of ischemic cardiomyopathy, CAD, diabetes mellitus type 2 who is sent to the [facility] ED by his outpatient colorer machine after his EKG revealed complete heart block. He had been in his colorer machine for regular routine visit. Patient had dual-chamber pacemaker placed by cardiology yesterday on November 13, 2022. Patient did have a chest x-ray done on 12 November that showed a 4 cm opacity to the right lung base therefore a chest CT scan was recommended by radiology. Chest x-ray performed yesterday following the pacemaker once again showed a 3 cm nodular density projecting over the right lung base. Therefore patient underwent a chest CT scan today without contrast showing a 3.5 x 2.5 spiculated right middle lobe mass suggestive of bronchogenic carcinoma per radiology. Right paratracheal lymphadenopathy. Multiple hepatic lesions highly suggestive of metastasis according to radiology. There were also multiple additional right lung nodules measuring up to 8 mm. I did speak to Mr. Reynolds and his daughter who is in the room about him ever having pulmonary nodules or pulmonary densities in the past of which she has not stated to me that he did upon having a chest x-ray back in 2013 and he had had multiple chest x-rays and chest CT scans done at [facility] to follow these pulmonary nodules which were located mostly in the right upper lobe and left lower lobe. Since the nodules themselves had not increased in size or showing any evidence of metastasis he stated that his physician did not feel they were malignant. I explained to him that he can have his new and old chest CT scans evaluated and management performed by the [facility] pulmonary outpatient clinic. Allergies Allergy/AdvReac Type Severity Reaction Status Date / Time simvastatin Allergy Intermediate HIVES PER Verified 11/12/22 15:17 GMG acetaminophen AdvReac Severe renal Verified 11/12/22 15:17 complications PER GMG aspirin AdvReac Intermediate STOMACH Verified 11/12/22 15:17 PAIN PER GMG atorvastatin AdvReac Intermediate CRAMPING Verified 11/12/22 15:17 PER GMG cholestyramine AdvReac Intermediate KIDNEY Verified 11/12/22 15:17 PAIN PER GMG ezetimibe AdvReac Intermediate CRAMPING Verified 11/12/22 15:17 IN ANKLES, FEET TURNED INWARD PER GMG niacin AdvReac Intermediate MUSCLE Verified 11/12/22 15:17 PAIN PER GMG Home Medications Medication Instructions Recorded Confirmed Type fexofenadine 180 mg tablet 180 mg PO DAILY PRN Allergy 02/21/20 11/12/22 History (Sandee Allergy) Symptoms metformin 1,000 mg tablet 1,000 mg PO BIDM 02/21/20 11/12/22 History alirocumab 75 mg/mL subcutaneous 75 mg subcut Q14D 08/06/20 11/12/22 History pen injector (Praluent Pen) blood sugar diagnostic (OneTouch #10 ea 08/06/20 09/30/22 History Ultra Blue Test Strip) finasteride 5 mg tablet 5 mg PO DAILY 08/06/20 11/12/22 History furosemide 20 mg tablet 20 mg PO SUTUWEFRSA 08/06/20 11/12/22 History isosorbide mononitrate 60 mg 60 mg PO DAILY 08/06/20 11/12/22 History tablet,extended release 24 hr magnesium oxide 200 mg PO BID 08/06/20 11/12/22 History multivitamin 1 tab PO DAILY 08/06/20 11/12/22 History tretinoin 0.05 % topical cream 1 applic topical HS 08/06/20 11/12/22 History FreeStyle Devi 2 Sensor (flash #2 ea 10/16/20 09/30/22 Rx glucose sensor) pen needle, diabetic 32 gauge x #400 ea 01/27/22 09/30/22 Rx 32" (BD Ultra-Fine Ashley Pen Needle) amlodipine 2.5 mg tablet 2.5 mg PO HS 11/12/22 11/12/22 History cyanocobalamin (vitamin B-12) 500 500 mcg PO DAILY 11/12/22 11/12/22 History mcg tablet (Vitamin B-12) empagliflozin 25 mg tablet 25 mg PO QDL 11/12/22 11/12/22 History (Jardiance) insulin aspart U-100 100 unit/mL 3 - 5 unit subcut TID 11/12/22 11/12/22 History (3 mL) subcutaneous pen (Novolog FlexPen U-100 Insulin aspart) insulin glargine 100 unit/mL (3 7 unit subcut HS 11/12/22 11/12/22 History mL) subcutaneous pen (Basaglar KwikPen U-100 Insulin) terazosin 5 mg capsule 5 mg PO DAILY 11/12/22 11/12/22 History metoprolol succinate 25 mg 12.5 mg PO BID 30 days #30 tabs 11/14/22 Rx tablet,extended release 24 hr valsartan 80 mg tablet (Diovan) 160 mg PO BID 30 days #120 tabs 11/14/22 Rx Patient History Medical History Aortic stenosis CAD (coronary artery disease) 1994 - [place] 2010 - cardiac cath; demonstrating widespread and greatly calcified CAD including a 70% LM stenosis, 80% mid LAD stenosis, 70% proximal LCX lesion and heavily disease distal stenosis, and a dominant RCA with occlusion with left to right filling; s/p CABG x 4 HTN (hypertension) Hyperlipidemia Ischemic cardiomyopathy Osteoarthritis Statin myopathy T2DM (type 2 diabetes mellitus) Surgical History History of cataract extraction History of inguinal hernia repair S/P CABG x 4 Family History Father , 60 Alcoholism Alcoholism Brother Diabetes Mother , 97 Old age No problems noted. 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: No Beliefs That Will Affect Care: None Current Living Situation: Alone Feels Safe at Home: Yes Safety Concerns: Feels Safe At This Time Assistive Devices: None Review of Systems Review of Systems: All systems reviewed & are unremarkable except as noted in HPI & below Physical Exam Constitutional: WD/WN, vitals as above Eyes: PERRL, conjunctivae normal, anicteric sclerae ENMT: external ear and nose normal, oropharynx normal Neck: trachea midline, no thyromegaly Respiratory: normal respiratory effort, lungs clear to auscultation No cough no wheezing no rhonchi good inspiratory and expiratory effort. Cardiovascular: RRR, no murmur, no edema S1-S2 within normal limits. Gastrointestinal (Abdomen): normal bowel sounds, soft, nontender, no hepatosplenomegaly Musculoskeletal: no cyanosis or clubbing, extremities motor strength 5/5 Skin: no rashes, warm and dry Neurologic: patellar DTR's 2+ bilat, sensation intact and PERRL, EOMI, accommodation nl, no face palsy, no dysarthria Psychiatric: A+Ox3, euthymic affect Results & Data Results & Data Vital Signs (Past 12 Hours) Vital Signs Temp Pulse Pulse Resp BP Pulse Ox O2 Del Method 11/14/22 17:02 36.5 C 72 16 125/68 94 11/14/22 15:00 72 125/68 11/14/22 11:28 36.5 C 72 16 148/74 H 94 Room Air 11/14/22 08:18 36.7 C 88 16 183/82 H 94 Room Air 11/14/22 08:00 99 H Laboratory Results Laboratory Results WBC 7.69 K/ul (4.8-10.8) 11/14/22 06:09 RBC 4.39 M/uL (4.70-6.10) L 11/14/22 06:09 Hgb 14.9 g/dl (14.0-18.0) 11/14/22 06:09 Hct 41.9 % (42.0-52.0) L 11/14/22 06:09 MCV 95.4 fL (80.0-100.0) 11/14/22 06:09 MCH 33.9 pg (25.0-34.0) 11/14/22 06:09 MCHC 35.6 g/dL (32.0-36.0) 11/14/22 06:09 RDW Std Deviation 45.1 fL (36.4-46.3) 11/14/22 06:09 RDW Coeff of Christiano 12.8 % (11.5-14.5) 11/14/22 06:09 Plt Count 153 K/uL (130-400) 11/14/22 06:09 MPV 10.0 fL (9.4-12.4) 11/14/22 06:09 Immature Gran % (Auto) 0.2 % 11/12/22 12:50 Neut % (Auto) 64.6 % 11/12/22 12:50 Lymph % (Auto) 23.4 % 11/12/22 12:50 [place] % (Auto) 8.5 % 11/12/22 12:50 Eos % (Auto) 2.6 % 11/12/22 12:50 Baso % (Auto) 0.7 % 11/12/22 12:50 Neut # (Auto) 2.98 K/uL (1.40-6.50) 11/12/22 12:50 Lymph # (Auto) 1.08 K/uL (1.20-3.40) L 11/12/22 12:50 [place] # (Auto) 0.39 K/uL (0.11-0.59) 11/12/22 12:50 Eos # (Auto) 0.12 K/uL (0.00-0.50) 11/12/22 12:50 Baso # (Auto) 0.03 K/uL (0.00-0.20) 11/12/22 12:50 Immature Gran # (Auto) 0.01 K/uL (0.01-0.20) 11/12/22 12:50 PT 11.2 Seconds (9.0-12.0) 11/12/22 12:50 INR 1.0 (0.9-1.1) 11/12/22 12:50 APTT 28.2 Seconds (21.0-31.0) 11/12/22 12:50 PTT Ratio 1.0 11/12/22 12:50 Sodium 138 mmol/L (136-145) 11/14/22 06:09 Potassium 3.9 mmol/L (3.5-5.1) 11/14/22 06:09 Chloride 107 mmol/L (98-107) 11/14/22 06:09 Carbon Dioxide 23 mmol/L (21-32) 11/14/22 06:09 Anion Gap 8 (3-11) 11/14/22 06:09 BUN 23 mg/dl (6-23) 11/14/22 06:09 Creatinine 0.89 mg/dl (0.6-1.4) 11/14/22 06:09 Est Cr Clr Drug Dosing 55.7 ml/min 11/14/22 06:09 Est GFR ( Amer) 92.3 ml/min 11/14/22 06:09 Est GFR (Non-Af Amer) 79.6 ml/min 11/14/22 06:09 BUN/Creatinine Ratio 25.8 (10-20) H 11/14/22 06:09 Glucose 133 mg/dl (70-99(Fasting)) H 11/14/22 06:09 POC Glucose 241 mg/dl (70-99) H 11/14/22 12:15 Estimat Average Glucose 143 mg/dl 11/13/22 04:05 Hemoglobin A1c 6.6 % (4.5-5.6) H 11/13/22 04:05 Calcium 9.0 mg/dl (8.6-10.3) 11/14/22 06:09 Magnesium 2.0 mg/dl (1.7-2.4) 11/14/22 06:09 Total Bilirubin 0.7 mg/dl (0.2-1.0) 11/12/22 12:50 AST 21 U/L (13-39) 11/12/22 12:50 ALT 15 U/L (7-52) 11/12/22 12:50 Alkaline Phosphatase 77 U/L (34-104) 11/12/22 12:50 Troponin I High Sens 41.0 pg/ml (0-20) H 11/13/22 08:19 Total Protein 7.2 gm/dl (6.0-8.3) 11/12/22 12:50 Albumin 4.2 gm/dl (3.4-5.0) 11/12/22 12:50 Globulin 3.0 gm/dl (2.5-4.0) 11/12/22 12:50 Albumin/Globulin Ratio 1.4 (0.9-2) 11/12/22 12:50 Procalcitonin 0.06 ng/ml (0-0.5) 11/13/22 04:05 Lyme Disease IgG Ab Negative (Negative) 11/12/22 15:38 Lyme Disease IgM Ab Negative (Negative) 11/12/22 15:38 Impressions Chest X-Ray 11/13/22 19:00 SINGLE VIEW CHEST CLINICAL HISTORY: Status post pacemaker implantation. FINDINGS: An AP, portable, upright chest radiograph is compared to study dated 11/12/2022. The examination is degraded by portable technique and patient rotation. The patient is status post midline sternotomy. A 2-lead cardiac pacemaker has been placed. Leads project over the right atrial appendage and the right ventricle. The heart is enlarged noting atherosclerotic calcification of the thoracic aorta. The pulmonary vasculature is noncongested. A 3 cm opacity is again seen projecting over the right lung base. There is bibasilar scarring/atelectasis. No airspace consolidation typical for pneumonia or large pleural effusion is identified. No pneumothorax is seen. The skeletal structures are osteopenic. There are chronic/healed left-sided rib fractures. IMPRESSION: 1. A 2-lead cardiac pacemaker has been implanted as above. No pneumothorax is identified post procedure. 2. Cardiomegaly without radiographic evidence of congestive failure. 3. A 3 cm nodular opacity is again seen projecting over the right lung base. A chest CT is recommended in follow-up. 4. No airspace consolidation or large pleural effusion is identified. ACT 112: Negative or not required by law. Electronically signed by: Kris Gonzalez M.D. 11/13/2022 9:[address] 11/14/22 11:28 CT OF THE CHEST WITHOUT IV CONTRAST CLINICAL HISTORY: Abnormal chest radiograph. COMPARISON STUDY: Chest radiograph November 13, 2022. TECHNIQUE: Axial images of the chest were obtained without IV contrast. Images were reviewed in the axial, sagittal, and coronal planes. IV contrast was not administered for this examination. Automated exposure control was utilized for the study. A dose lowering technique was utilized adhering to the principles of ALARA. FINDINGS: A left subclavian pacer is in place. There is moderate cardiomegaly and extensive coronary artery catheterization. There is no pericardial effusion. Median sternotomy and postoperative findings from bypass grafting are noted. There is an enlarged right paratracheal lymph node on image 95 of 249 which measures 2.2 x 1.8 cm. There is a prominent subcarinal lymph node which measures 0.9 cm in short axis diameter. There is no pneumothorax. No pleural effusion is identified. Subpleural opacities reflect atelectasis. Note is made of a spiculated 3.5 x 2.5 cm right middle lobe mass on image 155. This corresponds to the finding on chest radiograph. There is also a suspicious irregular 8 mm nod ule along the minor fissure. Several additional smaller adjacent pleural/pulmonary nodules are noted. No suspicious lesions within the bony thorax are noted. Water attenuation lesions within the visualized kidneys represent cysts. An intermediate attenuation lesion arising from the upper pole of the left kidney likely reflects a proteinaceous cyst within correlating with prior MRI. There is a new 2.8 cm segment 7 hypodense mass on image 192. There is also a 1.4 cm inferior right hepatic lobe lesion on image 234 and a 1.3 cm segment 6 lesion on image 212. These were not present on prior abdominal MRI. IMPRESSION: 1. 3.5 x 2.5 cm spiculated right middle lobe mass suggestive of bronchogenic carcinoma. Pathologic right paratracheal lymphadenopathy. Pulmonary consultation is recommended. 2. Multiple hepatic lesions, new since MRI of December 17, 2016. These are highly suggestive of metastases. 3. Multiple additional right lung nodules which measure up to 8 mm. These may represent pleural implants or satellite lesions. ACT 112: Positive. There are findings on this exam that require communication between the performing entity and the patient following Patient Test Result Info rmation Act ([place] Act 112) guidelines. Electronically signed by: Justin Patel M.D. 11/14/2022 12:19 PM Medications Administered Home Medications Medication Instructions Recorded Confirmed Last Taken fexofenadine 180 mg tablet 180 mg PO DAILY PRN Allergy 02/21/20 11/12/22 11/12/22 (Sandee Allergy) Symptoms metformin 1,000 mg tablet 1,000 mg PO BIDM 02/21/20 11/12/22 11/12/22 08:00 alirocumab 75 mg/mL subcutaneous 75 mg subcut Q14D 08/06/20 11/12/22 11/08/22 pen injector (Praluent Pen) blood sugar diagnostic (OneTouch #10 ea 08/06/20 09/30/22 Unknown Ultra Blue Test Strip) finasteride 5 mg tablet 5 mg PO DAILY 08/06/20 11/12/22 11/12/22 furosemide 20 mg tablet 20 mg PO SUTUWEFRSA 08/06/20 11/12/22 11/12/22 isosorbide mononitrate 60 mg 60 mg PO DAILY 08/06/20 11/12/22 11/12/22 tablet,extended release 24 hr magnesium oxide 200 mg PO BID 08/06/20 11/12/22 11/12/22 08:00 multivitamin 1 tab PO DAILY 08/06/20 11/12/22 11/12/22 tretinoin 0.05 % topical cream 1 applic topical HS 08/06/20 11/12/22 11/11/22 FreeStyle Devi 2 Sensor (flash #2 ea 10/16/20 09/30/22 Unknown glucose sensor) pen needle, diabetic 32 gauge x #400 ea 01/27/22 09/30/22 Unknown " (BD Ultra-Fine Ashley Pen Needle) amlodipine 2.5 mg tablet 2.5 mg PO HS 11/12/22 11/12/22 11/12/22 cyanocobalamin (vitamin B-12) 500 500 mcg PO DAILY 11/12/22 11/12/22 11/12/22 mcg tablet (Vitamin B-12) empagliflozin 25 mg tablet 25 mg PO QDL 11/12/22 11/12/22 11/11/22 (Jardiance) insulin aspart U-100 100 unit/mL 3 - 5 unit subcut TID 11/12/22 11/12/22 11/12/22 08:00 (3 mL) subcutaneous pen (Novolog FlexPen U-100 Insulin aspart) insulin glargine 100 unit/mL (3 7 unit subcut HS 11/12/22 11/12/22 11/12/22 mL) subcutaneous pen (Basaglar KwikPen U-100 Insulin) terazosin 5 mg capsule 5 mg PO DAILY 11/12/22 11/12/22 Unknown metoprolol succinate 25 mg 12.5 mg PO BID 30 days #30 tabs 11/14/22 Unknown tablet,extended release 24 hr valsartan 80 mg tablet (Diovan) 160 mg PO BID 30 days #120 tabs 11/14/22 Unknown Active Medications Generic Name Dose Route Start Last Admin Trade Name Freq PRN Reason Stop Dose Admin Acetaminophen 650 mg 11/12/22 18:18 11/14/22 00:19 Acetaminophen 325 Mg Tab PO 12/12/22 18:17 650 mg Q4H PRN Administration Pain or Fever Amlodipine Besylate 2.5 mg 11/12/22 21:00 11/13/22 21:20 Amlodipine Besylate 5 Mg Tab PO 12/12/22 20:59 2.5 mg HS ROSALVA Administration Finasteride 5 mg 11/13/22 09:00 11/14/22 08:39 Finasteride 5 Mg Tab PO 12/13/22 08:59 5 mg DAILY ROSALVA Administration Furosemide 20 mg 11/12/22 18:18 11/12/22 19:39 Furosemide 20 Mg Tab PO 12/12/22 18:17 20 mg SUTUWEFRSA ROSALVA Administration Dopamine HCl/Dextrose 400 mg in 250 mls @ 0 mls/hr 11/13/22 10:30 11/13/22 17:23 Dopamine / D5w IV 12/13/22 10:29 0 mcg/kg/min .Q0M ROSALVA 0 mls/hr Titration Protocol 0 MCG/KG/MIN Insulin Aspart 0 units 11/12/22 21:00 11/14/22 12:53 Insulin Aspart Per Unit Charge [place] 12/12/22 20:59 10 units ACHS ROSALVA Administration Insulin Glargine 7 units 11/12/22 21:00 11/13/22 21:22 Lantus Per Unit Charge [place] 12/12/22 20:59 7 units HS ROSALVA Administration Isosorbide Mononitrate 60 mg 11/13/22 09:00 11/14/22 08:39 Isosorbide [place] Extended Rel 60 Mg Tabcr PO 12/13/22 08:59 60 mg DAILY ROSALVA Administration Magnesium Oxide 400 mg 11/13/22 09:00 11/14/22 08:39 Magnesium Oxide 400 Mg Tab PO 12/13/22 08:59 400 mg DAILY ROSALVA Administration Metoprolol Succinate 12.5 mg 11/14/22 11:15 11/14/22 11:53 Metoprolol Succ 25mg Ext Rel Tab PO 12/14/22 11:14 12.5 mg BID ROSALVA Administration Terazosin HCl 5 mg 11/13/22 09:00 11/14/22 08:39 Terazosin Hcl 5 Mg Cap PO 12/13/22 08:59 5 mg DAILY ROSALVA Administration Valsartan 160 mg 11/14/22 09:00 11/14/22 08:39 Valsartan 80 Mg Tab PO 12/14/22 08:59 160 mg BID ROSALVA Administration PG Care Time/CCT Total # of Minutes Spent Total Time Spent with Patient: Total time spent is greater than 50% in coordination of care (as documented) at patient's floor/unit and/or counseling patient: Coding Level of Care Code 02617 IN/OBS CONSULT LVL 3,45M Diagnoses High degree atrioventricular block I44.39 Abnormal CXR R93.89 CAD (coronary artery disease) I25.10 T2DM (type 2 diabetes mellitus) E11.9 HTN (hypertension) I10
--- NOTE | 2022-11-14 19:45 | Discharge Summary ---
Discharge Summary Date of Service November 14, 2022 Notes For Next Care Provider [ ] Will need Pulmonology referral given abnormal imaging with new RML spiculated nodule Medication Changes From Visit -Reduced Valsartan 320 mg BID to 160mg BID -Started Metoprolol succinate 12.5mg BID Admission HPI Per Admitting Provider 82-year-old male with PMH DM type II, CAD s/p CABG, BPH, HTN, ischemic cardiomyopathy EF 45 to 50%, aortic stenosis, and other problems listed below who was sent to the ED from outpatient cardiology office after EKG demonstrated third-degree heart block. History is obtained from the patient and review of outpatient PCP and cardiology records. Patient states that he was at the cardiology office today for routine visit. EKG subsequently showed third-degree heart block. Patient was sent to the ED for further evaluation. Patient reports he has been feeling well recently. He reports chronic exertional shortness of breath and fatigue which is at baseline. No chest pain or palpitations. Denies lightheadedness, dizziness, diaphoresis, syncopal events. No other recent illnesses, fevers, chills. He denies abdominal pain, nausea, vomiting, diarrhea. No urinary symptoms. In the ED, repeat EKG shows sinus rhythm with first-degree block with PVC. Patient was noted to be hypertensive and given hydralazine 5 mg IV. Admission Exam Per Admitting Provider Pt is an 82 yo M with DM type II, CAD s/p CABG, BPH, HTN, ischemic cardiomyopathy EF 45 to 50%, aortic stenosis, who was sent from outpatient cardiology office after EKG demonstrated third-degree heart block.Patient states that he was at the cardiology office today for routine visit. EKG subsequently showed third-degree heart block. Patient was sent to the ED for further evaluation. He reports chronic exertional shortness of breath and fatigue which is at baseline. No chest pain or palpitations. Denies lightheadedness, dizziness, diaphoresis, syncopal events. No other recent illnesses, fevers, chills. He is currently laying in bed in [facility]. He is awake alert and answering ap propriately. Lungs are clear to auscultation. Heart sounds regular w/ ectopy. Abdomen soft, nontender, nondistended. No LE edema. Moves extremities. Skin is warm and dry. In the ED, repeat EKG shows sinus rhythm with first-degree block with PVC. Patient was noted to be hypertensive and given hydralazine 5 mg IV. Cardiology consulted for further evaluation. CXR also abnormal w/ 4 cm opacity vs. mass, will obtain chest CT to further identify. Procalcitonin ordered. Principal Dx & Hospital Course #1 = Principal Diagnosis (1) Third degree heart block: Patient presented at [facility] outpatient cardiology office after EKG showed third-degree heart block. Patient was asymptomatic. Further evaluation revealed high degree atrioventicular block and pacemaker was placed 11/13. Device checked and cleared by Cardiology (2) CAD (coronary artery disease): No signs of active ACS contributing to heart block -Continue IMDUR 60mg -Resume home Praluent injections per routine schedule (3) HTN (hypertension): Patient experienced hypotension on home regimen and briefly required dobutamine. His medications were adjusted with noted improvement. -Continue home regimen amlodipine 2.5 qhs, IMDUR 60, Lasix (except mon/thur) -Reduced Valsartan dosage 320-->160 BID (4) Ischemic cardiomyopathy: 40-45% EF on ECHO 11/13/2022, stable Ectopic beats noted on telemetry -Started on metoprolol succinate 12.5mg BID (5) Aortic stenosis: Echo 08/2021-EF 45 to 50%, grade 1 diastolic dysfunction, mild aortic stenosis; appears stable on repeat ECHO Remained stable and euvolemic (6) T2DM (type 2 diabetes mellitus): Hgb A1c 7.1 07/2022 Glucose remained stable throughout admission (7) Abnormal CXR: On admission, CXR shows a 4 cm opacity at the right lung base. Patient denied any respiratory symptoms. This prompted a chest CT to be obtained, which revealed a right middle lobe spiculated nodule, scatter right lung nodules, as well as hepatic lesions. Patient reports undergoing surveillance in 2014 for lung nodules, but review of the report from patient's phone did not demonstrate the 4 cm mass present on current imaging. Pulmonology consulted and evaluated patient. Plan for outpatient follow up. Patient preferred [facility] follow up and will seek referral from PCP. (8) BPH with obstruction/lower urinary tract symptoms: Stable, continue finasteride and terazosin Discharge Exam Constitutional WD/WN, vitals as above Eyes PERRL, conjunctivae normal, anicteric sclerae ENMT external ear and nose normal, oropharynx normal Neck trachea midline, no thyromegaly Respiratory normal respiratory effort, lungs clear to auscultation Cardiovascular RRR, no murmur, no edema Gastrointestinal (Abdomen) normal bowel sounds, soft, nontender, no hepatosplenomegaly Musculoskeletal no cyanosis or clubbing, extremities motor strength 5/5 Skin no rashes, warm and dry Updated Medication List Medication Instructions Recorded Confirmed Type fexofenadine 180 mg tablet 180 mg PO DAILY PRN Allergy 02/21/20 11/12/22 History (Sandee Allergy) Symptoms metformin 1,000 mg tablet 1,000 mg PO BIDM 02/21/20 11/12/22 History alirocumab 75 mg/mL subcutaneous 75 mg subcut Q14D 08/06/20 11/12/22 History pen injector (Praluent Pen) blood sugar diagnostic (OneTouch #10 ea 08/06/20 09/30/22 History Ultra Blue Test Strip) finasteride 5 mg tablet 5 mg PO DAILY 08/06/20 11/12/22 History furosemide 20 mg tablet 20 mg PO SUTUWEFRSA 08/06/20 11/12/22 History isosorbide mononitrate 60 mg 60 mg PO DAILY 08/06/20 11/12/22 History tablet,extended release 24 hr magnesium oxide 200 mg PO BID 08/06/20 11/12/22 History multivitamin 1 tab PO DAILY 08/06/20 11/12/22 History tretinoin 0.05 % topical cream 1 applic topical HS 08/06/20 11/12/22 History FreeStyle Devi 2 Sensor (flash #2 ea 10/16/20 09/30/22 Rx glucose sensor) pen needle, diabetic 32 gauge x #400 ea 01/27/22 09/30/22 Rx 5/32" (BD Ultra-Fine Ashley Pen Needle) amlodipine 2.5 mg tablet 2.5 mg PO HS 11/12/22 11/12/22 History cyanocobalamin (vitamin B-12) 500 500 mcg PO DAILY 11/12/22 11/12/22 History mcg tablet (Vitamin B-12) empagliflozin 25 mg tablet 25 mg PO QDL 11/12/22 11/12/22 History (Jardiance) insulin aspart U-100 100 unit/mL 3 - 5 unit subcut TID 11/12/22 11/12/22 History (3 mL) subcutaneous pen (Novolog FlexPen U-100 Insulin aspart) insulin glargine 100 unit/mL (3 7 unit subcut HS 11/12/22 11/12/22 History mL) subcutaneous pen (Basaglar KwikPen U-100 Insulin) terazosin 5 mg capsule 5 mg PO DAILY 11/12/22 11/12/22 History metoprolol succinate 25 mg 12.5 mg PO BID 30 days #30 tabs 11/14/22 Rx tablet,extended release 24 hr valsartan 80 mg tablet (Diovan) 160 mg PO BID 30 days #120 tabs 11/14/22 Rx Hospital Stay Data Consultations 11/12/22 15:52 ED Decision to Admit Stat 11/12/22 18:18 Consult Cardiology Routine 11/14/22 13:07 Consult Pulmonology Routine Procedures Performed Operation Date: 11/13/22 14:00 Actual Procedures p Pacer with A/V Leads (Dual) - Veena De La Torre DO s Venogram, Unilateral - Veena De La Torre DO Diagnostic Imagining Performed 11/14/22 11:28 CT chest diagnostic wo con Routine 11/14/22 15:45 EP Lab Images for PACS Routine Pending Results Patient Have Any Pending Studies at Discharge: No Discharge Instructions Given to Patient (Per Discharging Provider) You were admitted for heart block, which means your heart was abnormally slow and required a pacemaker to be placed. It was noted that on your CXR there was an abnormal lesion, which prompted a CT scan to be obtained which revealed lesions in your right lung and on your liver that appear very suspicious. You will need to follow up with your PCP for a referral through [facility] Pulmonology for further discussion of next steps. Additionally, two medications changes as follows: -Valsartan dose was reduced from home 320 twice a day--> now a new prescription for 160mg twice a day was sent to your pharmacy -Metoprolol Succinate 12.5mg twice a day was started and sent to your pharmacy Cardiology will call you to schedule appointments for pacemaker follow up and general cardiology follow up Total Time Total Time Spent Total Time Spent (In Minutes): Time spent evaluating patient, direct bedside care, chart review, placing discharge orders, interpretation of diagnostic studies, discussion with consultants, patient, and family members, as well as other required patient management activities is 45 minutes.
--- OUTSIDE RECORDS SUMMARY | 2022-11-16 13:06 | External Medical Summary ---
Author Name Unknown Address Unknown Organization [id number]:[facility] [address] [place] [address] Laboratory Report Ordering Provider Test Date Status GONZALEZ,HOUSER 10/24/2022 08:11:27 Final Observation Date Value Abnormality Reference (Units ) Status Triglyceride 10/24/2022 08:11:27 76 <=174 ( mg/dL) Final Performing Location [facility] [address] [place] [address]
--- OUTSIDE RECORDS SUMMARY | 2022-11-16 13:06 | External Medical Summary | Summary of Care ---
Author Name Unknown Organization [facility] Address [address] [address] Phone [phone] Care Team Providers Care Orthotic/Prosthetic Practitioner Name Role Phone Smith Orozco MD Primary Care Provider Reason for Visit * Reason Comments Re-Check Encounter Details Date Type Department Care Team Description 08/12/2022 Office Visit Family Medicine [address] [phone] Smith Orozco MD [address] [place] [address] [place] [id number] Type 2 diabetes mellitus with hemoglobin A1c goal of less than 8.0% ([facility])*; DM type 2 nursing care encounter (HCC); Type 2 diabetes mellitus with stage 2 chronic kidney disease, without long-term current use of insulin ([facility]); 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 ([facility]); Edema, unspecified type; Ischemic cardiomyopathy; CKD (chronic kidney disease) stage 2, GFR 60-89 ml/min; Statin intolerance; Primary hypertension; Old OH (myocardial infarction) Allergies Active Allergy Reactions Severity Noted Date Comments Acetaminophen Renal complications 04/27/2009 Aspirin 08/13/2000 Stomach pain Cholestyramine 08/13/2000 Kidney pain Atorvastatin Calcium 04/28/2007 cramping Niacin Muscle pain 07/22/2007 Simvastatin Hives 08/13/2000 Ezetimibe 04/28/2007 Cramping ankles, turned feet inward documented as of this encounter (statuses as of 08/12/2022) Medications Medication Sig Dispensed Refills Start Date End Date Status GAVI 180 MG PO TABSIndications:All ergic rhinitis One pill by mouth once a day for allergies 30 5 07/23/2009 Active Additional Information Patient taking differently:Oral,Indications: as needed, Reported on 02/18/2022 MAGNESIUM OXIDE 200 MG PO TABSIndications:Prepress Supervisor mp in limb one tablet twice a day 60 Tab 5 07/16/2010 Active SB LOW DOSE ASA EC 81 MG PO TBECIndications:pmo , thursday Take by mouth. Indications: pmonday, thursday 0 Active MULTI-VITAMIN PO TABS one pill each day 0 Active ONETOUCH ULTRA STRPIndications:Typ e 2 diabetes mellitus with hemoglobin A1c goal of less than 8.0% ([facility]) USE ONE TEST STRIP TO TEST BLOOD SUGAR LEVELS TWICE A DAY 200 Strip 5 11/11/2019 Active OneTouch UltraSoft Lancets MISCIndications:Typ e 2 diabetes mellitus with hemoglobin A1c goal of less than 8.0% ([facility]) USE ONE LANCET TO TEST BLOOD SUGAR LEVELS TWICE A DAY 200 Each 3 11/15/2019 Active Basaglar KwikPen 100 UNIT/ML Subcutaneous Solution Pen-injector (Insulin Glargine) Inject 7 Units under the skin daily. 1 Each 0 11/20/2020 Active NovoLOG FlexPen 100 UNIT/ML Subcutaneous Solution Pen-injector (insulin aspart) Inject 4-5 Units under the skin three times a day with meals. 1 Each 0 11/20/2020 Active BD Pen Needle Ashley 2nd Gen 32G X 4 MM INJECT 4 X DAY 0 04/21/2021 Ac tive FreeStyle Devi 2 Sensor Use as directed . 0 Active Terazosin HCl 5 MG Oral Capsule (Hytrin)Indications :Ischemic cardiomyopathy Take by mouth 1 Capsule in the morning. 90 Capsule 3 11/18/2021 Active Furosemide 20 MG Oral Tablet (Lasix)Indications: Ischemic cardiomyopathy Take by mouth 1 Tablet in the morning. 90 Tablet 3 11/18/2021 Active Vitamin B 12 500 MCG Oral Tablet Take by mouth. 0 Activ e Isosorbide Mononitrate ER 60 MG Oral Tablet Extended Release 24 Hour (Imdur) TAKE 1 TABLET BY MOUTH EVERY DAY IN THE MORNING 90 Tablet 3 04/23/2022 Active Praluent 75 MG/ML Subcutaneous Solution Auto-injector (Alirocumab)Indicat ions:Dyslipidemia, goal LDL below 70,Statin intolerance,Atheros clerosis of q[place] coronary artery of [place] heart without angina pectoris,Old OH (myocardial infarction) INJECT UNDER THE SKIN 75 MG EVERY 14 DAYS . 6 mL 3 05/09/2022 Active amLODIPine Besylate 2.5 MG Oral Tablet (Norvasc)Indication s:Essential hypertension with goal blood pressure less than 140/90,Old OH (myocardial infarction) Take 1 Tablet by mouth in the morning. 90 Tablet 3 05/13/2022 Active Valsartan 320 MG Oral Tablet (Diovan)Indications :Atherosclerosis of q[place] coronary artery of [place] heart without angina pectoris,Primary hypertension Take 0.5 Tablets by mouth in the morning and 0.5 Tablets before bedtime. 90 Tablet 1 05/12/2022 Active Tretinoin 0.05 % External Cream (Retin-A)Indication s:Actinic keratosis APPLY NIGHTLY TO FACE DIRECTED,CAN MIX WITH PONDS 45 g 5 07/10/2022 Active metFORMIN HCl 1000 MG Oral Tablet (Glucophage)Indicat ions:Type 2 diabetes mellitus with diabetic nephropathy (HCC),Type 2 diabetes mellitus with hemoglobin A1c goal of less than 8.0% (HCC) TAKE 1 TABLET BY MOUTH TWICE A DAY WITH BREAKFAST AND DINNER 180 Tablet 1 07/20/2022 Active Omeprazole 20 MG Oral Capsule Delayed Release (PriLOSEC)Indicatio ns:Peptic ulcer TAKE 1 CAPSULE BY MOUTH EVERY DAY IN THE MORNING 90 Capsule 1 07/20/2022 Active Finasteride 5 MG Oral Tablet (Proscar)Indication s:BPH with obstruction/lower urinary tract symptoms TAKE 1 TABLET BY MOUTH EVERY DAY IN THE MORNING 90 Tablet 1 08/08/2022 Active Jardiance 25 MG Oral TabletIndications:T ype 2 diabetes mellitus with hemoglobin A1c goal of less than 8.0% (HCC),Type 2 diabetes mellitus with stage 2 chronic kidney disease, without long-term current use of insulin (HCC),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) Take 1 Tablet by mouth in the morning. 90 Tablet 1 08/12/2022 Active Jardiance 25 MG Oral TabletIndications:T ype 2 diabetes mellitus with hemoglobin A1c goal of less than 8.0% (HCC),Type 2 diabetes mellitus with stage 2 chronic kidney disease, without long-term current use of insulin (HCC),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) Take 1 Tablet (25 mg) by mouth in the morning. 90 Tablet 1 02/10/2022 3 Discontinu ed(Refill) documented as of this encounter (statuses as of 08/12/2022) Active Problems Problem Noted Date CKD (chronic kidney disease) stage 2, GF R 60-89 ml/min 07/31/2022 Carpal tunnel syndrome, bilateral 2020 Nonrheumatic aortic valve stenosis 12/18 Edema 12/18/2020 Type 2 diabetes mellitus wit h stage 2 chronic kidney disease and hypertension 02/18/2018 Hx of nonmelanoma skin cancer 11/19/2016 Overview: SCC L lateral neck 09/2018,SCC L posterior helix 09/2016 AK R cheek (could not R/O SCC) 11/2014 Type 2 diabetes mellitus wit h stage 2 chronic kidney disease, without long-term current use of insulin 01/24/2016 Hx of actinic keratosis 10/12/2015 Ischemic cardiomyopathy 08/22/2014 Statin intolerance 08/12/2012 Primary hypertension 11/03/2011 Overview: Per HTN Protocol #27. BPH with obstruction/lower urinary tract symptoms 11/01/2009 DYSLIPIDEMIA, GOAL LDL BELOW 70 02/23/20 09 Overview: Per Lipid Taxonomy. Type 2 diabetes mellitus with hemoglobin A1c goal of less than 8.0% 01/11/2009 Overview: Per Diabetes Taxonomy. ICD-10 update of inactive term ADVANCE DIRECTIVE INFORMATION 12/23/2006 Overview: No, Advance Directive brochure given to patient at prior appointment. Atherosclerosis of [place] co ronary artery of q[place] heart without angina pectoris 11/30/2001 GENERAL OSTEOARTHROSIS Multiple pulmonary nodules Complex renal cyst Overview: 3.8 cm; L Old OH (myocardial infarction) documented as of this encounter (statuses as of 08/12/2022) Resolved Problems Problem Noted Date Resolved Date [employer] Other*[id number] 201004/22/2016 Overview: Study Titile: Gen[employer] Markers for Patients with Cardiovascular Disease Project # [id number] PI: Baljinder Hung MD Please call [phone] with study related questions HTN, goal below 130/80 04/15/2010 2 Overview: Per HTN Protocol #27. DM TYPE 2 CAUSING RENAL DZ 01/11/200902/01 Overview: Per Diabetes Taxonomy. Added per DM w/ renal complications protocol #4 DIAB RENAL MANIF ADULT 10/06/2007 9 Overview: Per Diabetes Taxonomy. Added per DM w/ renal complications protocol #4 Seborrheic dermatitis 01/24/2002 10/12/2015 Solar lentigo 10/27/2001 04/30/2016 ACUTE OH; INFERIOR WALL;SUBSEQUENT EPISODE CARE 06/21/2013 HYPERTENSION NOS 02/06/2009 Overview: Modified per HTN protocol #16. Mixed dyslipidemia 02/22/2009 Overview: Per Lipid Taxonomy. Peptic ulcer 08/12/2017 Type 2 diabetes mellitus wit h hemoglobin A1c goal of less than 7.0% 01/11/2009 Overview: Per Diabetes Taxonomy. ICD-10 update of inactive term CKD (chronic kidney disease) stage 2, GFR 60-89 ml/min 06/26/2017 documented as of this encounter (statuses as of 08/12/2022) Immunizations Name Administration Dates Next Due COVID-19 mRNA, LNP-s, No Pre serve, 2-Dose Series (CADsurf) 01/09/2021,06/08/2020,05/18/2020 COVID-19, LNP-s, No Preserve , Jhoann-sucrose, Ages 12+ (CADsurf) 06/18/2021 Covid-19, Mrna, Lnp-s, Pf, B ivalent Booster, 30 Mcg, IM, 12 yrs and above (Pfizer) 12/17/2021 Pneumococcal Conjugate Vacc, 13 Valent (Prevnar) 10/16/2015 Pneumococcal Polysaccharide PPV23 (Pneumovax) 12/15/2006 Seasonal Influenza, Quadriva lent Hd (Fluzone Hd) 11/19/2021,12/01/2020 Seasonal Influenza, Quadriva lent, No Preserve, 6 Mons & Above, IM 11/17/2017 Seasonal Influenza, Quadriva lent, No Preserve, Adjuvanted, 65+ Yrs, IM 11/22/2019 Seasonal Influenza, Quadriva lent, No Preserve, IM 11/21/2016,11/27/2015 Seasonal Influenza, Split, I IV3, With Preserve, Inj 12/04/2014,11/23/2013,12/07/2012,11/24,11/20/2010,12/13/2009,01/10/2009 ,01/04/2008,12/15/2006,12/23/2005 Seasonal Influenza, Trivalen t, Adjuvanted, 65+ yrs 11/22/2018 TD - Tetanus/Diptheria (ADULT) 03/16/2003 TDAP (age 10 and older)(Boostrix) 08/05/2012 Varicella Zoster Vaccine (Adult) 11/15/2011 Zoster Vaccine Recombinant (Shingrix) 05/25/2019 ,03/22/2019 documented as of this encounter Social History Tobacco Use Types Packs/Day Years Used Date Smoking Tobacco: Former Cigarettes 0 Smokeless Tobacco: Never Tobacco Cessation:Counseling Given: Not Answered Comments:quit in 1971 Alcohol Use Standard Drinks/Week Comments Not Currently 0 (1 standard drink = 0.6 oz pur e alcohol) Sex Assigned at Date Recorded Not on file Job Start Date Occupation Industry Not on file Not on file Not on file documented as of this encounter Last Filed Vital Signs Vital Sign Reading Time Taken Comments Blood Pressure 120/70 08/12/2022 8:14 AM EDT Pulse 79 08/12/2022 8:14 AM EDT Temperature 36.6 C (97.9 F) 08/12/2022 8:14 AM ED T Respiratory Rate 16 08/12/2022 8:14 AM EDT Oxygen Saturation - - Inhaled Oxygen Concentration - - Weight 65 kg (143 lb 4 oz) 08/12/2022 8:14 AM ED T Height 165.1 cm (5' 5") 08/12/2022 8:14 AM EDT Body Mass Index 23.84 08/12/2022 8:14 AM EDT documented in this encounter Patient Instructions * Patient Instructions* Komal Shearer LPN - 08/12/2022 8:21 AM EDT Diabetes: Keeping Feet Healthy Inspect your feet every day for signs of a problem. Diabetes can damage nerves in your feet and cause neuropathy. This condition makes it hard for you to feel injuries or sore spots. Diabetes can also change blood flow, making it harder for small problems, like a blister, to heal properly. In fact, minor injuries can quickly become serious infections that send you to the hospital. Practice self-care to protect your feet and keep them healthy. Take Special Care Inspect your feet daily for problems such as redness, blisters, cracks, dry skin, or numbness. Use a mirror to see the bottoms of your feet. Or, ask for help. Manage your diabetes. Monitor and control your blood sugar. Take all your medications as prescribed. Avoid walking barefoot, even indoors. Wash your feet with warm water and mild soap. Dry well, especially between toes. Dont treat corns or calluses yourself. Talk to your doctor or hot box checker (a doctor who specializes in foot care) if you need assistance trimming your toenails. Use moisturizing cream or lotion if you have dry skin, but dont use it between toes. Dont use heating pads on your feet. If you have neuropathy, you could get a burn and not feel it. Stop smoking. Smoking restricts blood flow and can make it harder for wounds to heal. Have Regular Checkups Foot problems can develop quickly. So be sure to follow your healthcare teams schedule for regular checkups. During office visits, take off your shoes and socks as soon as you get in the exam room. Ask your healthcare provider to examine your feet for problems. This will make it easier to find and treat small skin irritations before they get worse. Regular checkups can also help keep track of the blood flow and feeling in your feet. If you have neuropathy, you may need to have checkups more often. Wear Proper Footwear Wearing proper footwear is very important. If areas of your feet have been damaged by too much pressure, your healthcare provider may recommend changing your footwear. In some cases, avoiding high heels or tight work boots may be all thats needed. Or, your healthcare provider may recommend special shoes or custom inserts. These help protect your feet and keep existing irritations from getting worse. If you need special footwear, ask your healthcare provider if you qualify for [employer] diabetic shoe program. Make Sure Shoes and Socks Fit Any pair of shoes--new or old--should feel comfortable as soon as you put them on. There shouldnt be any rubbing when you walk. Wear the right shoe for any activity. For instance, a running shoe is designed to keep your feet injury-free while jogging. Buy shoes at the end of the day, when your feet are larger. Make sure they provide support without feeling too loose. Make sure your socks fit, t oo. Wear soft, seamless, well-padded socks for activity. Cotton or microfiber socks are best to help to absorb sweat. To protect your feet, avoid shoes that are open-toed or open-heeled. If you have questions about what kinds of shoes and socks are best, talk to your healthcare team. Get Regular Exercise Regular exercise improves blood flow in your feet. It also increases foot strength and flexibility.Gentle exercises, like walking or riding a stationary bicycle, are best. You can also do special foot exercises. Just be sure to talk with your healthcare provider before starting any exercise program. Also mention if any exercise causes pain, redness, or other signs of foot problems. Note: If you have any kind of break in the skin of your foot or ankle, keep the area clean. Then call your doctor--especially if the area doesnt appear to be healing. [id number] [employer], [address] [place] [address], [place] [address]. All rights reserved. This information is not intended as a substitute for professional medical care. Always follow your healthcare professional's instructions. documented in this encounter Progress Notes * Smith Orozco MD - 08/12/2022 8:22 AM EDT No complaints of headache, trouble with vision or hearing. He saw dr Proctor in May so we are trying to get records. Eating well, with no bowel or bladder complaints. Denies nausea, vomiting, or diarrhea. Denies fevers, chills or sweats. Denies chest pain or palpitations. Denies shortness of breath, PND, or orthopnea. No skin rashes or breakdown. No changes in mentation. No syncope or falls. Sometimes his legs get a little puffy All others negative other than those noted in HPI. Cl is following with cardiology and derm as well. Past Medical History: Diagnosis Date Acute OH, inferior wall, subsequent episode of care ([facility]) 1994 BPH with obstruction/lower urinary tract symptoms 11/01/2009 Carpal tunnel syndrome, bilateral 02/05/2021 CKD (chronic kidney disease) stage 2, GFR 60-89 ml/min Coronary atherosclerosis of q[place] coronary artery 11/30/2001 DM type 2, goal A1c below 7 Elevated PSA 09/30/2017 PSA 7.15 Examination of eyes and vision 09/20/2013 no diabetic or hypertensive retinopathy Generalized osteoarthritis HTN, goal below 140/90 Mixed dyslipidemia Multiple pulmonary nodules 03/20/2013 Old OH (myocardial infarction) 1994 Peptic ulcer Renal mass, left 2014 3.8 cm Type 2 diabetes mellitus with hemoglobin A1c goal of less than 8.0% ([facility]) 01/11/2009 Per Diabetes Taxonomy. ICD-10 update of inactive term Past Surgical History: Procedure Laterality Date CABG, ARTERIAL, SINGLE 12/26/2010 CORONARY ARTERY BYPASS GRAFT USING ARTERY 1 GRAFT performed by BERTHA SENIOR at [facility] CABG, ARTERY-VEIN, THREE 12/26/2010 CORONARY ARTERY BYPASS GRAFT ARTERIAL AND VENOUS 3 GRAFTS performed by BERTHA SENIOR at OR [facility] CORONARY ANGIOGRAPHY W/LEFT HEART CATH 12/03/2010 CORONARY ANGIOGRAPHY W/LEFT HEART CATH performed by BALJINDER HUNG at [facility] CT CHEST W CONTRAST 07/11/2013 non calcified pulmonary nodules persist and are unchanged, calcified hile nodes unchanged, extensive atherosclerosis of cardiac vessels. CT CHEST W CONTRAST 01/04/2014 stable pulmonary nodules and granulomas, 3.8 cm complex cyst left kidney CT CHEST W CONTRAST 12/19/2014 4 mm nodule RUL, 7 mm nodule RML, stable, 3.6 cm left upper kidney cyst, stable EMG & NCV, 2 EXTREMITIES Bilateral 03/01/2021 severe Left and moderate Right carpal tunnel, chronic L C7 radiculopathy, diabetic polyneuropathy as well ENDO,VIDEO ASSIST HARVEST EREN 12/26/2010 ENDOSCOPY VIDEO ASSISTED HARVEST VEIN performed by BERTHA SENIOR at OR [facility] INFORMATION 03/16/1994 cardiac cath REMOVE CATARACT, INSERT LENS PROSTH Right 02/07/2019 right EXTRACAPSULAR CATARACT REMOVAL WITH INTRAOCULAR LENS performed by Quincy Paiz MD at OR [facility] REMOVE CATARACT, INSERT LENS PROSTH Left 03/01/2019 left EXTRACAPSULAR CATARACT REMOVAL WITH INTRAOCULAR LENS performed by Quincy Paiz MD at OR [facility] REPAIR INITIAL INGUINAL HERNIA REDUCIBLE AGE 5 OR MORE US AAA SCREEN, RADIOLOGY 08/19/2013 maximum diameter 2 cm, no AAA VASC DUPLEX CAROTID BILAT 09/22/2013 dense calcificed plaque, <50% ICA stenosis, vertbrals antegrade Review of patient's allergies indicates: Allergen Reactions Acetaminophen Renal complications Aspirin Stomach pain Cholestyramine Kidney pain Lipitor [Atorvastatin Calcium] cramping Niacin Muscle pain Simvastatin Hives Zetia [Ezetimibe] Cramping ankles, turned feet inward Social History Socioeconomic History Marital status: Spouse name: Grisel Number of children: 2 Years of education: Not on file Highest education level: Not on file Occupational History 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 Tobacco Use Smoking status: Former Years: 0.00 Types: Cigarettes Smokeless tobacco: Never Tobacco comments: quit in 1971 Vaping Use Vaping Use: Never used Substance and Sexual Activity Alcohol use: Not Currently Drug use: No Sexual activity: Not on file Other Topics Concern Not on file Social History Narrative [facility] 2 years Social Determinants of Health Financial Resource Strain: Not on file Food Insecurity: Not on file Transportation Needs: Not on file Physical Activity: Not on file Stress: Not on file Social Connections: Not on file Intimate Partner Violence: Not on file Housing Stability: Not on file Current Outpatient Medications Medication Sig Dispense Refill GAVI 180 MG PO TABS One pill by mouth once a day for allergies (Patient taking differently: Take by mouth .) 30 5 MAGNESIUM OXIDE 200 MG PO TABS one tablet twice a day 60 Tab 5 SB LOW DOSE ASA EC 81 MG PO TBEC Take by mouth. Indications: pmonday, thursday MULTI-VITAMIN PO TABS one pill each day ONETOUCH ULTRA STRP USE ONE TEST STRIP TO TEST BLOOD SUGAR LEVELS TWICE A DAY 200 Strip 5 OneTouch UltraSoft Lancets MISC USE ONE LANCET TO TEST BLOOD SUGAR LEVELS TWICE A DAY 200 Each 3 Basaglar KwikPen 100 UNIT/ML Subcutaneous Solution Pen-injector (Insulin Glargine) Inject 7 Units under the skin daily. 1 Each NovoLOG FlexPen 100 UNIT/ML Subcutaneous Solution Pen-injector (insulin aspart) Inject 4-5 Units under the skin three times a day with meals. 1 Each BD Pen Needle Ashley 2nd Gen 32G X 4 MM INJECT 4 X DAY FreeStyle Devi 2 Sensor Use as directed . Terazosin HCl 5 MG Oral Capsule (Hytrin) Take by mouth 1 Capsule in the morning. 90 Capsule 3 Furosemide 20 MG Oral Tablet (Lasix) Take by mouth 1 Tablet in the morning. 90 Tablet 3 Vitamin B 12 500 MCG Oral Tablet Take by mouth. Jardiance 25 MG Oral Tablet Take 1 Tablet (25 mg) by mouth in the morning. 90 Tablet 1 Isosorbide Mononitrate ER 60 MG Oral Tablet Extended Release 24 Hour (Imdur) TAKE 1 TABLET BY MOUTH EVERY DAY IN THE MORNING 90 Tablet 3 Praluent 75 MG/ML Subcutaneous Solution Auto-injector (Alirocumab) INJECT UNDER THE SKIN 75 MG EVERY 14 DAYS . 6 mL 3 amLODIPine Besylate 2.5 MG Oral Tablet (Norvasc) Take 1 Tablet by mouth in the morning. 90 Tablet 3 Valsartan 320 MG Oral Tablet (Diovan) Take 0.5 Tablets by mouth in the morning and 0.5 Tablets before bedtime. 90 Tablet 1 Tretinoin 0.05 % External Cream (Retin-A) APPLY NIGHTLY TO FACE DIRECTED,CAN MIX WITH PONDS 45 g 5 metFORMIN HCl 1000 MG Oral Tablet (Glucophage) TAKE 1 TABLET BY MOUTH TWICE A DAY WITH BREAKFAST AND DINNER 180 Tablet 1 Omeprazole 20 MG Oral Capsule Delayed Release (PriLOSEC) TAKE 1 CAPSULE BY MOUTH EVERY DAY IN THE MORNING 90 Capsule 1 Finasteride 5 MG Oral Tablet (Proscar) TAKE 1 TABLET BY MOUTH EVERY DAY IN THE MORNING 90 Tablet 1 No current facility-administered medications for this visit. Immunization History Administered Date(s) Administered COVID-19 mRNA, LNP-s, No Preserve, 2-Dose Series (CADsurf) 05/18/2020, 06/08/2020, 01/09/2021 COVID-19, LNP-s, No Preserve, Johann-sucrose, Ages 12+ (Pfizer) 06/18/2021 Covid-19, Mrna, Lnp-s, Pf, Bivalent Booster, 30 Mcg, IM, 12 yrs and above (Pfizer) 12/17/2021 Pneumococcal Conjugate Vacc, 13 Valent (Prevnar) 10/16/2015 Pneumococcal Polysaccharide PPV23 (Pneumovax) 04/01/2002, 12/15/2006 Seasonal Influenza, Quadrivalent Hd (Fluzone Hd) 12/01/2020, 11/19/2021 Seasonal Influenza, Quadrivalent, No Preserve, 6 Mons & Above, IM 11/17/2017 Seasonal Influenza, Quadrivalent, No Preserve, Adjuvanted, 65+ Yrs, IM 11/22/2019 Seasonal Influenza, Quadrivalent, No Preserve, IM 11/27/2015, 11/21/2016 Seasonal Influenza, Split, IIV3, With Preserve, Inj 01/05/2001, 01/19/2002, 12/29/2002, 12/25/2003, 01/10/2005, 12/23/2005, 12/15/2006, 01/04/2008, 01/10/2009, 12/13/2009, 11/20/2010, 11/25/2011,12/07/2012, 11/23/2013, 12/04/2014 Seasonal Influenza, Trivalent, Adjuvanted, 65+ yrs 11/22/2018 TD - Tetanus/Diptheria (ADULT) 03/16/2003 TDAP (age 10 and older)(Boostrix) 08/05/2012 Varicella Zoster Vaccine (Adult) 11/15/2011 Zoster Vaccine Recombinant (Shingrix) 03/22/2019, 05/25/2019 Lab Results Component Value Date/Time HEMOGLOBIN A1C 5.7 05/16/1996 10:22 AM HEMOGLOBIN A1C 8.7 (H) 02/02/1996 09:10 AM HEMOGLOBIN A1C - [facility] 7.1 (H) 07/31/2022 07:58 AM HEMOGLOBIN A1C - [facility] 6.5 (H) 02/25/2021 09:44 AM HEMOGLOBIN A1C - [facility] 7.6 (H) 06/28/2020 11:20 AM HEMOGLOBIN A1C - [facility] 7.5 (H) 03/01/2020 02:51 PM HEMOGLOBIN A1C - [facility] 7.3 (H) 08/30/2019 08:34 AM HEMOGLOBIN A1C - [facility] 7.3 (H) 03/31/2019 08:26 AM Results for orders placed or performed in visit on 07/31/22 LIPID PANEL WITH DIRECT LDL IF TG IS HIGH Result Value Ref Range Triglycerides 80 <=174 mg/dL Cholesterol 176 <200 mg/dL HDL Cholesterol 71 >39 mg/dL Non-HDL Cholesterol 105 <=159 mg/dL LDL Cholesterol 89 <=129 mg/dL Results for orders placed or performed in visit on 06/28/20 COMPREHENSIVE METABOLIC PANEL Result Value Ref Range BUN 27 (H) 6 - 20 mg/dL Creatinine 1.0 0.6 - 1.2 mg/dL Estimated Glomerular Filtration Rate 75.8 >=60.0 mL/min Sodium 141 135 - 146 mmol/L Potassium 4.8 3.5 - 5.1 mmol/L Chloride 102 98 - 107 mmol/L CO2 27 22 - 32 mmol/L Anion Gap 12 7 - 15 mmol/L Glucose 241 (H) 70 - 120 mg/dL Albumin 4.2 3.8 - 5.0 g/dL AST 22 10 - 50 U/L Alkaline Phosphatase 48 35 - 130 U/L Bilirubin, Total 0.3 <=1.2 mg/dL Calcium 10.0 8.4 - 10.2 mg/dL Protein 7.2 6.0 - 8.3 g/dL ALT 24 10 - 50 U/L Results for orders placed or performed in visit on 08/15/21 BASIC METABOLIC PANEL Result Value Ref Range BUN 29 (H) 6 - 20 mg/dL Creatinine 1.3 (H) 0.6 - 1.2 mg/dL Estimated Glomerular Filtration Rate 53 (L) >=60 mL/min Sodium 139 135 - 146 mmol/L Potassium 4.4 3.5 - 5.1 mmol/L Chloride 100 98 - 107 mmol/L CO2 29 22 - 32 mmol/L Anion Gap 10 7 - 15 mmol/L Glucose 157 (H) 70 - 120 mg/dL Calcium 9.9 8.4 - 10.2 mg/dL O: Blood pressure 120/70, pulse 79, temperature 36.6 C (97.9 F), temperature source Tympanic, resp. rate 16, height 1.651 m (5' 5"), weight 65 kg (143 lb 4 oz). General appearance: well developed, well nourished and in no acute distress. Head normocephalic andatraumatic. No facial asymmetry. Eye exam; PEERLA, EOMI. No scleral icterus or nystagmus. Conjunctiva are pink and not injected. Oropharynx: no exudate, no pharyngeal inflammation or post nasal drip.The palate is free of lesions and the uvula is normal. Trachea is in the midline. Neck supple with no adenopathy or thyromegaly. No carotid bruits. Chest expands equally and is symmetrical with normal AP diameter. Lungs clear, with no wheezes, rales, or rhonchi. Heart: S1 and S2 normal. PMI not obviously displaced. Heart regular, no murmurs, gallops, clicks or rubs. No CVA tenderness. No calf swelling or tenderness. Trace pedal edema. No skin rashes. Extremities unremarkable. * Komal Shearer LPN - 08/12/2022 8:21 AM EDT Socks and Shoes Removed for Annual Diabetic Foot Screening RIGHT FOOT: No Reddened, Cracking, Or Open Areas Noted. RIGHT Dorsalis Pedis Pulse: Palpable RIGHT Posterior Tibial Pulse: Palpable RIGHT Monofilament:Patient reports feeling monofilament pressure on plantar surface of foot LEFT FOOT: No Reddened, Cracking or Open Areas Noted. LEFT Dorsalis Pedis Pulse: Palpable LEFT Posterior Tibial Pulse: Palpable LEFT Monofilament:Patient reports feeling monofilament pressure on plantar surface of foot Do you need diabetic shoes: No DM Foot Exam completed today. Provider aware. Komal Shearer LPN documented in this encounter Nursing Notes * Komal Shearer LPN - 08/12/2022 8:15 AM EDT 6 month recheck documented in this encounter Plan of Treatment Upcoming Encounters Date Type Specialty Care Team Description 10/23/2022 Pharmacy Cardiology [facility] Cardiology [address] [facility] [place] [id number] 11/12/2022 Office Visit Cardiology Alcon Lott PA-C [address] [place] [address] 12/17/2022 Office Visit Dermatology Kim Kong MD [address] [place] [address] 02/12/2023 Office Visit Family Medicine Smith Orozco MD [address] [place] [address] [place] [address] Scheduled Orders Name Type Priority Associated Diagnoses Orde r Schedule ALBUMIN / CREATININE RATIO, URINE Lab Routine Type 2 diabetes mellitus with hemoglobin A1c goal of less than 8.0% (HCC) Expected: 08/12/2022 (Approximate), Expires: 08/12/2023 Health Maintenance Due Date Last Done Comments Depression Screening, Annual for Pts 12 and Over 08/29/2020 08/30/2019 DIABETES-EYE EXAM 03/28/2022 03/28/2021, , 11/09/2018, Additional history exists Albumin/Creatinine Ratio 05/20/2022 022, 02/25/2021, 03/01/2020, Additional history exists DTaP,Tdap,and Td Vaccines (2 - Td or Tdap) 08/05/2022 08/05/2012, 03/16/2003, 03/16/2003 HbA1c 01/31/2023 07/31/2022, 11/14, 05/20/2021, Additional history exists GFR 08/01/2023 07/31/2022, 11/14, 02/25/2021, Additional history exists Yearly B-12 08/01/2023 07/31/2022, 04/11/2020, 08/30/2019, Additional history exists DIABETES-FOOT EXAM 08/13/2023 08/12/2022, 0 08/06/2021, 03/01/2020, Additional history exists Pneumococcal Vaccine: 65+ Years Completed 10/16/2015, 12/15/2006, 04/01/2002 Zoster Vaccines Completed 05/25/2019, 09/2019, 11/15/2011 Influenza Vaccine (FLU shot) Completed 08/2021, 12/01/2020, 11/22/2019, Additional history exists COVID-19 Vaccine Completed 12/17/2021, 07/2021, 01/09/2021, Additional history exists GARDASIL-HPV IMMUNIZATION SERIES Aged Out No longer eligible based on patient's age to complete this topic Hepatitis B Aged Out No longer eligi ble based on patient's age to complete this topic MENINGOCOCCAL (MENACTRA/MENVEO) Aged Out No longer eligible based on patient's age to complete this topic documented as of this encounter Medical Devices Implanted Type Area Glass Beveller Device Identifier Shelf Expiration Date Model / Serial / Lot Band Ankur 225-704 - [id number] Implanted:Qty: 1 on 12/26/2010 at OR [facility] [place] Chest [employer] 225-291 / / [id number] Lens Intraoc 17.5 - [id number] - [id number] Implanted:Qty: 1 on 02/07/2019 by Quincy Paiz MD at OR [facility] Right: Eye [employer] 08/14/2023 [id number] / [id number] / [id number] Lens Intraoc 17.0 - [id number] - [id number] Implanted:Qty: 1 on 03/01/2019 by Quincy Paiz MD at OR [facility] Left: Eye [employer]OMB 09/12/2022 [id number] / [id number] / [id number] documented as of this encounter Visit Diagnoses Diagnosis Type 2 diabetes mellitus with hemoglobin A1c goal of less than 8.0% (HCC)- Primary DM type 2 nursing care encounter (HCC) Type II or unspecified type diabetes mellitus without mention of complication, not stated as uncontrolled Type 2 diabetes mellitus with stage 2 chronic kidney disease, without long-term current use of insulin (HCC) 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) Edema, unspecified type Ischemic cardiomyopathy Other specified forms of chronic ischemic heart disease CKD (chronic kidney disease) stage 2, GFR 60-89 ml/min Chronic kidney disease, Stage II (mild) Statin intolerance Other drug allergy Primary hypertension Unspecified essential hypertension Old [place] (myocardial infarction) Old myocardial infarction documented in this encounter Advance Directives Latest Code Status on File Code Status Date Activated Date Inactivated Comments Full Code 12/26/2010 11:49 AM 12/30/2010 3:24 PM Th is order reflects the patients wishes and were consensually agreed upon. Care Teams Orthotic/Prosthetic Practitioner Relationship Specialty Start Date End Date Smith Orozco MD [address] [place] [address] [place] [address] PCP - General Family Medicine 08/03/18 documented as of this encounter
--- OUTSIDE RECORDS SUMMARY | 2022-11-16 13:06 | External Medical Summary ---
Author Name Unknown Address Unknown Organization K01:LABORATORY [facility] - [address] [place] [address] Laboratory Report Ordering Provider Test Date Status LOLIS BRADFORD 08/12/2022 08:26:44 Final Observation Date Value Abnormality Reference (Units ) Status Albumin, Urine 08/12/2022 08:26:44 7.56 (mg/dL) Final Creatinine, Urine 08/12/2022 08:26:44 62 (mg/dL) Final Albumin/Creatinine [Mass Ratio] in Urine 08/12/2022 08:26:44 122 Above high normal <30 (mg/g Creat) Final Performing Location LAB[facility]ATORY [facility] [place] - [address] [place] [address]
--- OUTSIDE RECORDS SUMMARY | 2022-11-16 13:06 | External Medical Summary | Summary of Care ---
Author Name Unknown Organization [facility] Address [address] [facility] [address] Phone [phone] Care Team Providers Care Aerial Crop Duster Name Role Phone Smith Orozco MD Primary Care Provider Reason for Visit * Reason Comments Dosage Adjustment Via Phone (anticoag Cl inic) Hyperlipidemia Encounter Details Date Type Department Care Team Description 11/05/2022 Pharmacy Cardiology [place] [facility] [address] [place] [address] [place] [address] [facility] Cardiology [address] [facility] [place] [id number] Dyslipidemia, goal LDL below 70* Allergies Active Allergy Reactions Severity Noted Date Comments Acetaminophen Renal complications 04/27/2009 Aspirin 08/13/2000 Stomach pain Cholestyramine 08/13/2000 Kidney pain Atorvastatin Calcium 04/28/2007 cramping Niacin Muscle pain 07/22/2007 Simvastatin Hives 08/13/2000 Ezetimibe 04/28/2007 Cramping ankles, turned feet inward documented as of this encounter (statuses as of 11/05/2022) Medications Medication Sig Dispensed Refills Start Date End Date Status GAVI 180 MG PO TABSIndications:[place] rgic rhinitis One pill by mouth once a day for allergies 30 5 07/23/2009 Active Additional Information Patient taking differently:Oral,Indications: as needed, Reported on 02/18/2022 MAGNESIUM OXIDE 200 MG PO TABSIndications:Cram p in limb one tablet twice a day 60 Tab 5 07/16/2010 Active SB LOW DOSE ASA EC 81 MG PO TBECIndications:, thursday Take by mouth. Indications: pm, thursday 0 Active MULTI-VITAMIN PO TABS one pill each day 0 Active ONETOUCH ULTRA STRPIndications:Type 2 diabetes mellitus with hemoglobin A1c goal of less than 8.0% ([facility]) USE ONE TEST STRIP TO TEST BLOOD SUGAR LEVELS TWICE A DAY 200 Strip 5 11/11/2019 Active OneTouch UltraSoft Lancets MISCIndications:Type 2 diabetes mellitus with hemoglobin A1c goal of less than 8.0% ([facility]) USE ONE LANCET TO TEST [...] Active Terazosin HCl 5 MG Oral Capsule (Hytrin)Indications: Ischemic cardiomyopathy Take by mouth 1 Capsule in the morning. 90 Capsule 3 11/18/2021 Active Furosemide 20 MG Oral Tablet (Lasix)Indications:I schemic cardiomyopathy Take by mouth 1 Tablet in the morning. 90 Tablet 3 11/18/2021 Active Vitamin B 12 500 MCG Oral Tablet Take by mouth. 0 Active Isosorbide Mononitrate ER 60 MG Oral Tablet Extended Release 24 Hour (Imdur) TAKE 1 TABLET BY MOUTH EVERY DAY IN THE MORNING 90 Tablet 3 04/23/2022 Active Praluent 75 MG/ML Subcutaneous Solution Auto-injector (Alirocumab)Indicati ons:Dyslipidemia, goal LDL below 70,Statin intolerance,Atherosc lerosis of [place] coronary artery of [place] heart without angina pectoris,Old [place] (myocardial infarction) INJECT UNDER THE SKIN 75 MG EVERY 14 DAYS . 6 mL 3 05/09/2022 Active amLODIPine Besylate 2.5 MG Oral Tablet (Norvasc)Indications :Essential hypertension with goal blood pressure less than 140/90,Old [place] (myocardial infarction) Take 1 Tablet by mouth in the morning. 90 Tablet 3 05/13/2022 Active Valsartan 320 MG Oral Tablet (Diovan)Indications: Atherosclerosis of [place] coronary artery of [place] heart without angina pectoris,Primary hypertension Take 0.5 Tablets by mouth in the morning and 0.5 Tablets before bedtime. 90 Tablet 1 05/12/2022 Active Tretinoin 0.05 % External Cream (Retin-A)Indications :Actinic keratosis APPLY NIGHTLY TO FACE DIRECTED,CAN MIX WITH PONDS 45 g 5 07/10/2022 Active metFORMIN HCl 1000 MG Oral Tablet (Glucophage)Indicati ons:Type 2 diabetes mellitus with diabetic nephropathy (HCC),Type 2 diabetes mellitus with hemoglobin A1c goal of less than 8.0% (HCC) TAKE 1 TABLET BY MOUTH TWICE A DAY WITH BREAKFAST AND DINNER 180 Tablet 1 07/20/2022 Active Omeprazole 20 MG Oral Capsule Delayed Release (PriLOSEC)Indication s:Peptic ulcer TAKE 1 CAPSULE BY MOUTH EVERY DAY IN THE MORNING 90 Capsule 1 07/20/2022 Active Finasteride 5 MG Oral Tablet (Proscar)Indications :BPH with obstruction/lower urinary tract symptoms TAKE 1 TABLET BY MOUTH EVERY DAY IN THE MORNING 90 Tablet 1 08/08/2022 Active Jardiance 25 MG Oral TabletIndications:Ty pe 2 diabetes mellitus with hemoglobin A1c goal of less than 8.0% (HCC),Type 2 diabetes mellitus with stage 2 chronic kidney disease, without long-term current use of insulin (HCC),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) Take 1 Tablet by mouth in the morning. 90 Tablet 1 08/12/2022 Active documented as of this encounter (statuses as of 11/05/2022) Active Problems Problem Noted Date CKD (chronic [...] 11/01/2009 DYSLIPIDEMIA, GOAL LDL BELOW 70 02/23/20 Overview: Per Lipid Taxonomy. Type 2 diabetes mellitus with hemoglobin A1c goal of less than 8.0% 01/11/2009 Overview: Per Diabetes Taxonomy. ICD-10 update of inactive term ADVANCE DIRECTIVE INFORMATION 12/23/2006 Overview: No, Advance Directive brochure given to patient at prior appointment. Atherosclerosis of [place] co ronary artery of [place] heart without angina pectoris 11/30/2001 GENERAL OSTEOARTHROSIS Multiple pulmonary nodules Complex renal cyst Overview: 3.8 cm; L Old [place] (myocardial infarction) documented as of this encounter (statuses as of 11/05/2022) Resolved Problems Problem Noted Date Resolved Date [employer] Other*[id number] 201004/22/2016 Overview: Study Titile: Genomics Markers for Patients with Cardiovascular Disease Project # [id number] PI: Amalia Kingsley MD Please call [phone] with study related questions HTN, goal below 130/80 04/15/2010 2 Overview: Per HTN Protocol #27. DM TYPE 2 CAUSING RENAL DZ 01/11/200902/01 Overview: Per Diabetes Taxonomy. Added per DM w/ renal complications protocol #4 DIAB RENAL MANIF ADULT 10/06/2007 9 Overview: Per Diabetes Taxonomy. Added per DM w/ renal complications protocol #4 Seborrheic dermatitis 01/24/2002 10/12/2015 Solar lentigo 10/27/2001 04/30/2016 ACUTE NE; INFERIOR WALL;SUBSEQUENT EPISODE CARE 06/21/2013 HYPERTENSION NOS [...] as of this encounter (statuses as of 11/05/2022) Immunizations Name Administration Dates Next Due COVID-19 mRNA, LNP-s, No Pre serve, 2-Dose Series (Glowpoint) 01/09/2021,06/08/2020,05/18/2020 COVID-19, LNP-s, No Preserve , Johann-sucrose, Ages 12+ (Pfizer) 06/18/2021 Covid-19, Mrna, Lnp-s, Pf, B ivalent, 30 Mcg, IM, 12 yrs and above (Pfizer) 12/17/2021 Pneumococcal Conjugate Vacc, 13 Valent (Prevnar) 10/16/2015 Pneumococcal Polysaccharide PPV23 (Pneumovax) 12/15/2006 Season Influenza, Quad, PF, Adjuvanted, 65+ Yrs, IM (FLUAD) 11/22/2019 Seasonal Influenza, PF, 6 mo ns & Above, IM , (Flulaval) 11/17/2017 Seasonal Influenza, Quadriva lent Hd (Fluzone Hd) 11/19/2021,12/01/2020 Seasonal Influenza, Quadriva lent, No Preserve, IM [...] Tobacco: Former Cigarettes 0 Smokeless Tobacco: Never Comments:quit in 1971 Alcohol Use Standard Drinks/Week Comments Not Currently 0 (1 standard drink = 0.6 oz pur e alcohol) Sex Assigned at Date Recorded Not on file Job Start Date Occupation Industry Not on file Not on file Not on file documented as of this encounter Progress Notes * Aparna Helms RPh - 11/05/2022 11:05 AM EDT MTM HLD Update Latest Reference Range & Units 07/31/22 07:58 10/24/22 08:11 Triglycerides <=174 mg/dL 80 76 Cholesterol <200 mg/dL 176 147 Non-HDL Cholesterol <=159 mg/dL 105 77 HDL Cholesterol >39 mg/dL 71 70 LDL Cholesterol <=129 mg/dL 89 62 LDL improved on Praluent and now at goal. myG sent to patient. Following up with Alcon on 11/12 Will send remind me for 1 year to ensure yearly lipid panel done Aparna Helms Pharm D Clinical Pharmacist Cardiology 11/05/2022,11:09 AM documented in this encounter Plan of Treatment Upcoming Encounters Date Type Specialty Care Team Description 11/12/2022 Office Visit Cardiology Alcon Lott PA-C [address] [place] [address] 12/17/2022 [facility] [address] [facility] [address] 02/12/2023 Office Visit Family Medicine Smith Orozco MD [address] [place] [address] [place] [address] Health Maintenance Due Date Last Done Comments Depression Screening, Annual for Pts 12 and Over 08/29/2020 08/30/2019 DTaP,Tdap,and Td Vaccines (2 - Td or Tdap) 08/05/2022 08/05/2012, 03/16/2003, 03/16/2003 Influenza Vaccine (FLU shot) (#1) 2022 11/19/2021, 12/01/2020, 11/22/2019, Additional history exists HbA1c 01/31/2023 07/31/2022, 11/14, 05/20/2021, Additional history exists B-12 08/01/2023 07/31/2022, 06/15, 08/30/2019, Additional history exists Albumin/Creatinine Ratio 08/13/2023 023, 05/20/2021, 02/25/2021, Additional history exists DIABETES-FOOT EXAM 08/13/2023 08/12/2022, 0 08/06/2021, 03/01/2020, Additional history exists GFR 08/22/2023 08/21/2022, 07/14, 12/02/2021, Additional history exists DIABETES-EYE EXAM 09/22/2023 09/21/2022, , 03/23/2020, Additional history exists Pneumococcal Vaccine: 65+ Years Completed 10/16/2015, 12/15/2006, 04/01/2002 Zoster Vaccines Completed 05/25/2019, 09/2019, 11/15/2011 COVID-19 Vaccine Completed 12/17/2021, 07/2021, 01/09/2021, Additional [...] this encounter Medical Devices Implanted Type Area Metal Off Bearer Device Identifier Shelf Expiration Date Model / Serial / Lot Band Ankur 225-241 - [id number] Implanted:Qty: 1 on 12/26/2010 at [place] [facility] [place] Chest [employer] 225-241 / / [id number] Lens Intraoc 17.5 - [id number] - [id number] Implanted:Qty: 1 on 02/07/2019 by Quincy Paiz MD at OR [facility] Right: Eye [employer] 08/14/2023 [id number] / [id number] / [id number] Lens Intraoc 17.0 - [id number] - [id number] Implanted:Qty: 1 on 03/01/2019 by Quincy Paiz MD at OR [facility] Left: Eye [employer]OMB 09/12/2022 [id number] / [id number] / [id number] documented as of this encounter Visit Diagnoses Diagnosis Dyslipidemia, goal LDL below 70- Primary Other and unspecified hyperlipidemia documented in this encounter Advance Directives Latest Code Status on File Code Status Date Activated Date Inactivated Comments Full Code 12/26/2010 11:49 AM 12/30/2010 3:24 PM Th is order reflects the patients wishes and were consensually agreed upon. Care Teams Aerial Crop Duster Relationship Specialty Start Date End Date Smith Orozco MD [address] [place] [address] [place] [address] PCP - General Family Medicine 08/03/18 documented as of this encounter
--- OUTSIDE RECORDS SUMMARY | 2022-11-16 13:06 | External Medical Summary | Summary of Care ---
Author Name Unknown Organization [facility] Address [address] [facility] [place] [address] Phone [phone] Care Team Providers Care Equipment Analyst Name Role Phone Smith Orozco MD Primary Care Provider Reason for Visit * Reason Comments Outpatient Testing Encounter Details Date Type Department Care Team Description 08/21/2022 Laboratory Laboratory [address] [place] [phone] [place] [address] Essential hypertension with goal blood pressure less than 140/90 Allergies Active Allergy Reactions Severity Noted Date Comments Acetaminophen Renal complications 04/27/2009 Aspirin 08/13/2000 Stomach pain Cholestyramine 08/13/2000 Kidney pain Atorvastatin Calcium 04/28/2007 cramping Niacin Muscle pain 07/22/2007 Simvastatin Hives 08/13/2000 Ezetimibe 04/28/2007 Cramping ankles, turned feet inward documented as of this encounter (statuses as of 08/21/2022) Medications Medication Sig Dispensed Refills Start Date [...] hemoglobin A1c goal of less than 8.0% ([facility]) USE ONE TEST STRIP TO TEST BLOOD SUGAR LEVELS TWICE A DAY 200 Strip 5 11/11/2019 Active OneTouch UltraSoft Lancets MISCIndications:Type 2 diabetes mellitus with hemoglobin A1c goal of less than 8.0% ([facility]) USE ONE LANCET TO TEST BLOOD SUGAR [...] goal LDL below 70,Statin intolerance,Atherosc lerosis of [place] coronary artery of [place] heart without angina pectoris,Old [place] (myocardial infarction) INJECT UNDER THE SKIN 75 MG EVERY 14 DAYS . 6 mL 3 05/09/2022 Active amLODIPine Besylate 2.5 MG Oral Tablet (Norvasc)Indications :Essential hypertension with goal blood pressure less than 140/90,Old [place] (myocardial infarction) Take 1 Tablet by mouth in the morning. 90 Tablet 3 05/13/2022 Active Valsartan 320 MG Oral Tablet (Diovan)Indications: Atherosclerosis of [place] coronary artery of [place] heart without angina pectoris,Primary hypertension Take 0.5 [...] as of this encounter (statuses as of 08/21/2022) Active Problems Problem Noted Date CKD (chronic [...] to patient at prior appointment. Atherosclerosis of [place] co ronary artery of [place] heart without angina pectoris 11/30/2001 GENERAL OSTEOARTHROSIS Multiple pulmonary nodules Complex renal cyst Overview: 3.8 cm; L [place] (myocardial infarction) documented as of this encounter (statuses as of 08/21/2022) Resolved Problems Problem Noted Date Resolved Date [employer] Other*[id number] 201004/22/2016 Overview: Study Titile: Genomics Markers for Patients with Cardiovascular Disease Project # [id number] PI: Amalia Kingsley MD Please call [phone] with study related questions HTN, goal below 130/80 04/15/2010 2 Overview: Per HTN Protocol #27. DM TYPE 2 CAUSING RENAL DZ 01/11/200902/01 Overview: Per Diabetes Taxonomy. Added per DM w/ renal complications protocol #4 DIAB RENAL MANIF ADULT 10/06/2007 9 Overview: Per Diabetes Taxonomy. Added per DM w/ renal complications protocol #4 Seborrheic dermatitis 01/24/2002 10/12/2015 Solar lentigo 10/27/2001 04/30/2016 ACUTE [place]; INFERIOR WALL;SUBSEQUENT EPISODE CARE 06/21/2013 HYPERTENSION NOS [...] as of this encounter (statuses as of 08/21/2022) Immunizations Name Administration Dates Next Due COVID-19 mRNA, LNP-s, No Pre serve, 2-Dose Series ([employer]bo[employer]ations) 01/09/2021,06/08/2020,05/18/2020 COVID-19, LNP-s, No Preserve , Johann-sucrose, Ages 12+ (Pfizer) 06/18/2021 Covid-19, Mrna, Lnp-s, Pf, B ivalent, 30 Mcg, IM, 12 yrs and above (Turbo[employer]lations) 12/17/2021 Pneumococcal Conjugate Vacc, 13 Valent (Prevnar) [...] on file documented as of this encounter Plan of Treatment Upcoming Encounters Date Type Specialty Care Team Description 10/23/2022 Pharmacy Cardiology [facility] Cardiology [address] [place] [address] [place] [address] 11/12/2022 Office Visit Cardiology Alcon Lott PA-C [address] [place] [address] 12/17/2022 Office Visit Dermatology Kim Kong MD [address] [place] [address] 02/12/2023 Office Visit Family Medicine Smith Orozco MD [address] [place] [address] [place] [address] Pending Results Name Type Priority Associated Diagnoses Date /Time BASIC METABOLIC PANEL Lab Routine Essential hypertension with goal blood pressure less than 140/90 08/21/2022 7:39 AM EDT Health Maintenance Due Date Last Done Comments Depression Screening, Annual for Pts 12 and Over 08/29/2020 08/30/2019 DIABETES-EYE EXAM 03/28/2022 03/28/2021, , 11/09/2018, Additional history exists DTaP,Tdap,and Td Vaccines (2 - Td or Tdap) 08/05/2022 08/05/2012, 03/16/2003, 03/16/2003 HbA1c 01/31/2023 07/31/2022, 11/14, 05/20/2021, Additional history exists GFR 08/01/2023 07/31/2022, 11/14, 02/25/2021, Additional history exists Yearly B-12 08/01/2023 07/31/2022, 06/15, 08/30/2019, Additional history [...] this encounter Medical Devices Implanted Type Area Online Advertising Director Device Identifier Shelf Expiration Date Model / Serial / Lot Band Ankur 225-241 - [id number] Implanted:Qty: 1 on 12/26/2010 [place] [facility] [place] [employer] 225-522 / / [id number] Lens Intraoc 17.5 - [id number] - [id number] Implanted:Qty: 1 on 02/07/2019 by Quincy Paiz MD at OR [facility] Right: Eye [employer] 08/14/2023 [id number] / [id number] / [id number] Lens Intraoc 17.0 - [id number] - [id number] Implanted:Qty: 1 on 03/01/2019 by Quincy Paiz MD at [facility] Left: Eye [employer]OMB 09/12/2022 [id number] / [id number] / [id number] documented as of this encounter Visit Diagnoses Diagnosis Essential hypertension with goal blood pressure less than 140/90 documented in this encounter Advance Directives Latest Code Status on File Code Status Date Activated Date Inactivated Comments Full Code 12/26/2010 11:49 AM 12/30/2010 3:24 PM Th is order reflects the patients wishes and were consensually agreed upon. Care Teams Equipment Analyst Relationship Specialty Start Date End Date Smith Orozco MD [address] [place] [address] [place] [address] PCP - General Family Medicine 08/03/18 documented as of this encounter
--- OUTSIDE RECORDS SUMMARY | 2022-11-16 13:06 | External Medical Summary | Summary of Care ---
Author Name Unknown Organization [facility] Address [address] [address] Phone [phone] Care Team Providers Care Merchandise Team Manager Name Role Phone Smith Orozco MD Primary Care Provider Encounter Details Date Type Department Care Team Description 09/30/2022 Orders Only Family Medicine [address] [place] [phone] Smith Orozco MD [address] [place] [address] [place] [id number] Allergies Active Allergy Reactions Severity Noted Date Comments Acetaminophen Renal complications 04/27/2009 Aspirin 08/13/2000 Stomach pain Cholestyramine 08/13/2000 Kidney pain Atorvastatin Calcium 04/28/2007 cramping Niacin Muscle pain 07/22/2007 Simvastatin Hives 08/13/2000 Ezetimibe 04/28/2007 Cramping ankles, turned feet inward documented as of this encounter (statuses as of 09/30/2022) Medications Medication Sig Dispensed Refills Start Date [...] LOW DOSE ASA EC 81 MG PO TBECIndications:pm, thursday Take by mouth. Indications: pm, thursday 0 Active MULTI-VITAMIN PO TABS one pill each day 0 Active ONETOUCH ULTRA STRPIndications:Type 2 diabetes mellitus with hemoglobin A1c goal of less than 8.0% (HCC) USE ONE TEST STRIP TO TEST BLOOD SUGAR LEVELS TWICE A DAY 200 Strip 5 11/11/2019 Active OneTouch UltraSoft Lancets MISCIndications:Type 2 diabetes mellitus with hemoglobin A1c goal of less than 8.0% (HCC) USE ONE LANCET TO TEST BLOOD SUGAR [...] goal LDL below 70,Statin intolerance,Atherosc lerosis of [place] coronary artery of [place] heart without angina pectoris,Old [place] (myocardial infarction) INJECT UNDER THE SKIN 75 MG EVERY 14 DAYS . 6 mL 3 05/09/2022 Active amLODIPine Besylate 2.5 MG Oral Tablet (Norvasc)Indications :Essential hypertension with goal blood pressure less than 140/90,Old [place] (myocardial infarction) Take 1 Tablet by mouth in the morning. 90 Tablet 3 05/13/2022 Active Valsartan 320 MG Oral Tablet (Diovan)Indications: Atherosclerosis of [place] coronary artery of [place] heart without angina pectoris,Primary hypertension Take 0.5 [...] as of this encounter (statuses as of 09/30/2022) Active Problems Problem Noted Date CKD (chronic [...] to patient at prior appointment. Atherosclerosis of [place] co ronary artery of [place] heart without angina pectoris 11/30/2001 GENERAL OSTEOARTHROSIS Multiple pulmonary nodules Complex renal cyst Overview: 3.8 cm; L Old [place] (myocardial infarction) documented as of this encounter (statuses as of 09/30/2022) Resolved Problems Problem Noted Date Resolved Date Gen[employer] Cardio Research Other*[id number] 201004/22/2016 Overview: Study Titile: Genomics Markers for Patients with Cardiovascular Disease Project # [id number] PI: Amalia Kingsley MD Please call [phone] with study related questions HTN, goal below 130/80 04/15/2010 2 Overview: Per HTN Protocol #27. DM TYPE 2 CAUSING RENAL DZ 01/11/200902/01 Overview: Per Diabetes Taxonomy. Added per DM w/ renal complications protocol #4 DIAB RENAL MANIF ADULT 10/06/2007 9 Overview: Per Diabetes Taxonomy. Added per DM w/ renal complications protocol #4 Seborrheic dermatitis 01/24/2002 10/12/2015 Solar lentigo 10/27/2001 04/30/2016 ACUTE [place]; INFERIOR WALL;SUBSEQUENT EPISODE CARE 06/21/2013 HYPERTENSION NOS [...] as of this encounter (statuses as of 09/30/2022) Immunizations Name Administration Dates Next Due COVID-19 mRNA, LNP-s, No Pre serve, 2-Dose Series (Visual Threat) 01/09/2021,06/08/2020,05/18/2020 COVID-19, LNP-s, No Preserve , Johann-sucrose, Ages 12+ (Pfizer) 06/18/2021 Covid-19, Mrna, Lnp-s, Pf, B ivalent, 30 Mcg, IM, 12 yrs and above (Visual Threat) 12/17/2021 Pneumococcal Conjugate Vacc, 13 Valent (Prevnar) [...] Care Team Description 10/23/2022 Pharmacy Cardiology [facility] [address] [place] [address] [place] [address] 11/12/2022 Office Visit Cardiology Alcon Lott PA-C [address] [place] [address] 12/17/2022 Office Visit Dermatology Kim Kong MD [address] [place] [address] 02/12/2023 Office Visit Family Medicine Smith Orozco MD [address] [place] [address] [place] [phone] Pending Results Name Type Priority Associated Diagnoses Date /Time DIABETIC EYE EXAM Other Routine 023 Health Maintenance Due Date Last Done Comments [...] 08/22/2023 08/21/2022, 07/14, 12/02/2021, Additional history exists Pneumococcal Vaccine: 65+ Years [...] this encounter Medical Devices Implanted Type Area Nail Polish Brush Machine Feeder Device Identifier Shelf Expiration Date Model / Serial / Lot Band Ankur 225-601 - [id number] Implanted:Qty: 1 on 12/26/2010 at [place] [facility] [place] Chest [employer] 225-241 / / [id number] Lens Intraoc 17.5 - [id number] - [id number] Implanted:Qty: 1 on 02/07/2019 by Quincy Paiz MD at OR [facility] Right: Eye BAUSCH [employer] LOMB 08/14/2023 [id number] / [id number] / [id number] Lens Intraoc 17.0 - [id number] - [id number] Implanted:Qty: 1 on 03/01/2019 by Quincy Paiz MD at OR [facility] Left: Eye BAUSCH & LOMB 09/12/2022 [id number] / [id number] / [id number] documented as of this encounter Advance Directives Latest Code Status on File Code Status Date Activated Date Inactivated Comments Full Code 12/26/2010 11:49 AM 12/30/2010 3:24 PM Th is order reflects the patients wishes and were consensually agreed upon. Care Teams Merchandise Team Manager Relationship Specialty Start Date End Date Smith Orozco MD [address] [place] [address] [place] [address] PCP - General Family Medicine 08/03/18 documented as of this encounter
--- OUTSIDE RECORDS SUMMARY | 2022-11-16 13:06 | External Medical Summary | Summary of Care ---
Author Name Unknown Organization [facility] Address [address] [facility] [place] [address] Phone [phone] Care Team Providers Care University Administrative Assistant Name Role Phone Smith Orozco MD Primary Care Provider Reason for Visit * Reason Comments Outpatient Testing Encounter Details Date Type Department Care Team Description 10/24/2022 Laboratory Laboratory [address] [place] [phone] [place] [address] Dyslipidemia, goal LDL below 70 Allergies Active Allergy Reactions Severity Noted Date Comments Acetaminophen Renal complications 04/27/2009 Aspirin 08/13/2000 Stomach pain Cholestyramine 08/13/2000 Kidney pain Atorvastatin Calcium 04/28/2007 cramping Niacin Muscle pain 07/22/2007 Simvastatin Hives 08/13/2000 Ezetimibe 04/28/2007 Cramping ankles, turned feet inward documented as of this encounter (statuses as of 10/24/2022) Medications Medication Sig Dispensed Refills Start Date [...] goal LDL below 70,Statin intolerance,Atherosc lerosis of [place] coronary artery of [place] heart without angina pectoris,Old [place] (myocardial infarction) INJECT UNDER THE SKIN 75 MG EVERY 14 DAYS . 6 mL 3 05/09/2022 Active amLODIPine Besylate 2.5 MG Oral Tablet (Norvasc)Indications :Essential hypertension with goal blood pressure less than 140/90,Old [place] (myocardial infarction) Take 1 Tablet by mouth in the morning. 90 Tablet 3 05/13/2022 Active Valsartan 320 MG Oral Tablet (Diovan)Indications: Atherosclerosis of [place] coronary artery of [place] heart without angina pectoris,Primary hypertension Take 0.5 [...] as of this encounter (statuses as of 10/24/2022) Active Problems Problem Noted Date CKD (chronic [...] to patient at prior appointment. Atherosclerosis of [place] co ronary artery of [place] heart without angina pectoris 11/30/2001 GENERAL OSTEOARTHROSIS Multiple pulmonary nodules Complex renal cyst Overview: 3.8 cm; L Old [place] (myocardial infarction) documented as of this encounter (statuses as of 10/24/2022) Resolved Problems Problem Noted Date Resolved Date Genomics Cardio Research Other*[id number] 201004/22/2016 Overview: Study Titile: Genomics Markers for Patients with Cardiovascular Disease Project # [id number] PI: Amalia Kingsley MD Please call [phone] with study related questions HTN, goal below 130/80 04/15/2010 2 Overview: Per HTN Protocol #27. DM TYPE 2 CAUSING RENAL DZ 01/11/200902/01 Overview: Per Diabetes Taxonomy. Added per DM w/ renal complications protocol #4 DIAB RENAL MANIF ADULT 10/06/2007 9 Overview: Per Diabetes Taxonomy. Added per DM w/ renal complications protocol #4 Seborrheic dermatitis 01/24/2002 10/12/2015 Solar lentigo 10/27/2001 04/30/2016 ACUTE [place]; INFERIOR WALL;SUBSEQUENT EPISODE CARE 06/21/2013 HYPERTENSION NOS [...] as of this encounter (statuses as of 10/24/2022) Immunizations Name Administration Dates Next Due COVID-19 mRNA, LNP-s, No Pre serve, 2-Dose Series (Biomedix vascular solution) 01/09/2021,06/08/2020,05/18/2020 COVID-19, LNP-s, No Preserve , Johann-sucrose, Ages 12+ (Pfizer) 06/18/2021 Covid-19, Mrna, Lnp-s, Pf, B ivalent, 30 Mcg, IM, 12 yrs and above (Biomedix vascular solution) 12/17/2021 Pneumococcal Conjugate Vacc, 13 Valent (Prevnar) [...] Encounters Date Type Specialty Care Team Description 11/05/2022 Pharmacy Cardiology [facility] Cardiology [address] [place] [address] [place] [address] 11/12/2022 Office Visit Cardiology Alcon Lott PA-C [address] [place] [address] 12/17/2022 Office Visit Dermatology Kim Kong MD [address] [place] [address] 02/12/2023 Office Visit Family Medicine Smith Orozco MD [address] [place] [address] [place] [phone] Pending Results Name Type Priority Associated Diagnoses Date /Time LIPID PANEL WITH DIRECT LDL IF TG IS HIGH Lab Routine Dyslipidemia, goal LDL below 70 10/24/2022 8:11 AM EDT Health Maintenance Due Date Last [...] this encounter Medical Devices Implanted Type Area Social Director Device Identifier Shelf Expiration Date Model / Serial / Lot Band Ankur 225-241 - [id number] Implanted:Qty: 1 on 12/26/[address] [facility] [place] Chest [employer] 225-241 / / [id number] Lens Intraoc 17.5 - [id number] - [id number] Implanted:Qty: 1 on 02/07/2019 by Quincy Paiz MD at OR [facility] Right: Eye BA[employer]CH [employer] LOMB 08/14/2023 [id number] / [id number] / [id number] Lens Intraoc 17.0 - [id number] - [id number] Implanted:Qty: 1 on 03/01/2019 by Quincy Paiz MD at [facility] Left: Eye BAUSCH & LOMB 09/12/2022 [id number] / [id number] / [id number] documented as of this encounter Visit Diagnoses Diagnosis Dyslipidemia, goal LDL below 70 Other and unspecified hyperlipidemia documented in this encounter Advance Directives Latest Code Status on File Code Status Date Activated Date Inactivated Comments Full Code 12/26/2010 11:49 AM 12/30/2010 3:24 PM Th is order reflects the patients wishes and were consensually agreed upon. Care Teams University Administrative Assistant Relationship Specialty Start Date End Date Smith Orozco MD [address] [place] [address] [place] [phone] PCP - General Family Medicine 08/03/18 documented as of this encounter
--- OUTSIDE RECORDS SUMMARY | 2022-11-16 13:06 | External Medical Summary | Summary of Care ---
Author Name Unknown Organization [facility] Address [address] [facility] [place] [address] Phone [phone] Care Team Providers Care Food Preparation Supervisor Name Role Phone Suzette Danielle MD Primary Care Provider Reason for Visit * Reason Comments eRx-Medication Refill Encounter Details Date Type Department Care Team Description 08/08/2022 Refill Family Medicine [address] [phone] Suzette Danielle MD [address] [place] [address] [place] [address] BPH with obstruction/lower urinary tract symptoms Allergies Active Allergy Reactions Severity Noted Date Comments Acetaminophen Renal complications 04/27/2009 Aspirin 08/13/2000 Stomach pain Cholestyramine 08/13/2000 Kidney pain Atorvastatin Calcium 04/28/2007 cramping Niacin Muscle pain 07/22/2007 Simvastatin Hives 08/13/2000 Ezetimibe 04/28/2007 Cramping ankles, turned feet inward documented as of this encounter (statuses as of 08/08/2022) Medications Medication Sig Dispensed Refills Start Date End Date Status GAVI 180 MG PO TABSIndications:All ergic rhinitis One pill by mouth once a day for allergies 30 5 0 Active Additional Information Patient taking differently:Oral,Indications: as needed, Reported on 02/18/2022 MAGNESIUM OXIDE 200 MG PO TABSIndications:Fourchette Sewer mp in limb one tablet twice a day 60 Tab 5 1 Active SB LOW DOSE ASA EC 81 MG PO TBECIndications:pmo , thursday Take by mouth. Indications: pmonday, thursday 0 Active MULTI-VITAMIN PO TABS one pill each day 0 Active ONETOUCH ULTRA STRPIndications:Typ e 2 diabetes mellitus with hemoglobin A1c goal of less than 8.0% ([facility]) USE ONE TEST STRIP TO TEST BLOOD SUGAR LEVELS TWICE A DAY 200 Strip 5 0 Active OneTouch UltraSoft Lancets MISCIndications:Typ e 2 diabetes mellitus with hemoglobin A1c goal of less than 8.0% ([facility]) USE ONE LANCET TO TEST BLOOD SUGAR LEVELS TWICE A DAY 200 Each 3 0 Active Basaglar KwikPen 100 UNIT/ML Subcutaneous Solution Pen-injector (Insulin Glargine) Inject 7 Units under the skin daily. 1 Each 0 1 Active NovoLOG FlexPen 100 UNIT/ML Subcutaneous Solution Pen-injector (insulin aspart) Inject 4-5 Units under the skin three times a day with meals. 1 Each 0 1 Active BD Pen Needle Ashley 2nd Gen 32G X 4 MM INJECT 4 X DAY 0 2 Active FreeStyle Devi 2 Sensor Use as directed . 0 Active Terazosin HCl 5 MG Oral Capsule (Hytrin)Indications :Ischemic cardiomyopathy Take by mouth 1 Capsule in the morning. 90 Capsule 3 2 Active Furosemide 20 MG Oral Tablet (Lasix)Indications: Ischemic cardiomyopathy Take by mouth 1 Tablet in the morning. 90 Tablet 3 2 Active Vitamin B 12 500 MCG Oral Tablet Take by mouth. 0 Activ e Jardiance 25 MG Oral TabletIndications:T ype 2 diabetes mellitus with hemoglobin A1c goal of less than 8.0% ([facility]),Type 2 diabetes mellitus with stage 2 chronic kidney disease, without long-term current use of insulin ([facility]),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 ([facility]) Take 1 Tablet (25 mg) by mouth in the morning. 90 Tablet 1 2 Active Isosorbide Mononitrate ER 60 MG Oral Tablet Extended Release 24 Hour (Imdur) TAKE 1 TABLET BY MOUTH EVERY DAY IN THE MORNING 90 Tablet 3 3 Active Praluent 75 MG/ML Subcutaneous Solution Auto-injector (Alirocumab)Indicat ions:Dyslipidemia, goal LDL below 70,Statin intolerance,Atheros clerosis of [place] coronary artery of [place] heart without angina pectoris,Old [place] (myocardial infarction) INJECT UNDER THE SKIN 75 MG EVERY 14 DAYS . 6 mL 3 3 Active amLODIPine Besylate 2.5 MG Oral Tablet (Norvasc)Indication s:Essential hypertension with goal blood pressure less than 140/90,Old [place] (myocardial infarction) Take 1 Tablet by mouth in the morning. 90 Tablet 3 3 Active Valsartan 320 MG Oral Tablet (Diovan)Indications :Atherosclerosis of [place] coronary artery of [place] heart without angina pectoris,Primary hypertension Take 0.5 Tablets by mouth in the morning and 0.5 Tablets before bedtime. 90 Tablet 1 3 Active Tretinoin 0.05 % External Cream (Retin-A)Indication s:Actinic keratosis APPLY NIGHTLY TO FACE DIRECTED,CAN MIX WITH PONDS 45 g 5 3 Active metFORMIN HCl 1000 MG Oral Tablet (Glucophage)Indicat ions:Type 2 diabetes mellitus with diabetic nephropathy (HCC),Type 2 diabetes mellitus with hemoglobin A1c goal of less than 8.0% (HCC) TAKE 1 TABLET BY MOUTH TWICE A DAY WITH BREAKFAST AND DINNER 180 Tablet 1 3 Active Omeprazole 20 MG Oral Capsule Delayed Release (PriLOSEC)Indicatio ns:Peptic ulcer TAKE 1 CAPSULE BY MOUTH EVERY DAY IN THE MORNING 90 Capsule 1 3 Active Finasteride 5 MG Oral Tablet (Proscar)Indication s:BPH with obstruction/lower urinary tract symptoms TAKE 1 TABLET BY MOUTH EVERY DAY IN THE MORNING 90 Tablet 1 3 Active Finasteride 5 MG Oral Tablet (Proscar)Indication s:BPH with obstruction/lower urinary tract symptoms Take 1 Tablet (5 mg) by mouth in the morning. 90 Tablet 1 2 08/09/19 23 Discontinued documented as of this encounter (statuses as of 08/08/2022) Active Problems Problem Noted Date CKD (chronic [...] to patient at prior appointment. Atherosclerosis of [place] co ronary artery of [place] heart without angina pectoris 11/30/2001 GENERAL OSTEOARTHROSIS Multiple pulmonary nodules Complex renal cyst Overview: 3.8 cm; L Old [place] (myocardial infarction) documented as of this encounter (statuses as of 08/08/2022) Resolved Problems Problem Noted Date Resolved Date Genomics Cardio Research Other*[id number] 201004/22/2016 Overview: Study Titile: Genomics Markers for Patients with Cardiovascular Disease Project # [id number] PI: Amalia Kingsley MD Please call [phone] with study related questions HTN, goal below 130/80 04/15/2010 2 Overview: Per HTN Protocol #27. DM TYPE 2 CAUSING RENAL DZ 01/11/200902/01 Overview: Per Diabetes Taxonomy. Added per DM w/ renal complications protocol #4 DIAB RENAL MANIF ADULT 10/06/2007 Overview: Per Diabetes Taxonomy. Added per DM w/ renal complications protocol #4 Seborrheic dermatitis 01/24/2002 10/12/2015 Solar lentigo 10/27/2001 04/30/2016 ACUTE [place]; INFERIOR WALL;SUBSEQUENT EPISODE CARE 06/21/2013 HYPERTENSION NOS [...] as of this encounter (statuses as of 08/08/2022) Immunizations Name Administration Dates Next Due COVID-19 mRNA, LNP-s, No Pre serve, 2-Dose Series (360Guanxi) 01/09/2021,06/08/2020,05/18/2020 COVID-19, LNP-s, No Preserve , Johann-sucrose, Ages 12+ (Pfizer) 06/18/2021 Covid-19, Mrna, Lnp-s, Pf, B ivalent Booster, 30 Mcg, IM, 12 yrs and above (360Guanxi) 12/17/2021 Pneumococcal Conjugate Vacc, 13 Valent (Prevnar) [...] on file documented as of this encounter Miscellaneous Notes * Telephone Encounter - [facility] - 08/08/2022 1:22 PM EDTSigned Prescriptions: Disp Refills Finasteride 5 MG Oral Tablet (Proscar) 90 Tab*1 Sig: TAKE 1 TABLET BY MOUTH EVERY DAY IN THE MORNINGAuthorizing Provider: SUZETTE DANIELLE User: HUGO HARTLEY documented in this encounter Plan of Treatment Upcoming Encounters Date Type Specialty Care Team Description 08/12/2022 Office Visit Family Medicine Suzette Danielle MD [address] [place] [address] [place] [address] 10/23/2022 Pharmacy Cardiology [place] Cardiology [address] [place], [place] [address], [place] [address] 11/12/2022 Office Visit Cardiology Alcon Lott PA-C [address] [place] [address] 12/17/2022 Office Visit [facility] [address] [facility] [address] Health Maintenance Due Date Last Done Comments Depression Screening, Annual for Pts 12 and Over 08/29/2020 08/30/2019 DIABETES-EYE EXAM 03/28/2022 03/28/2021, , 11/09/2018, Additional history exists Albumin/Creatinine Ratio 05/20/2022 022, 02/25/2021, 03/01/2020, Additional history exists DTaP,Tdap,and Td Vaccines (2 - Td or Tdap) 08/05/2022 08/05/2012, 03/16/2003, 03/16/2003 DIABETES-FOOT EXAM 08/06/2022 08/06/2021, 1 05/02/2019, 01/24/2019, Additional history exists HbA1c 01/31/2023 07/31/2022, 11/14, 05/20/2021, Additional history exists GFR 08/01/2023 07/31/2022, 11/14, 02/25/2021, Additional history exists Yearly B-12 08/01/2023 07/31/2022, 06/15, 08/30/2019, Additional history exists Pneumococcal Vaccine: 65+ Years [...] encounter Medical Devices Implanted Type Area Social Problems Specialist Device Identifier Shelf Expiration Date Model / Serial / Lot Band Ankur 225-241 - [id number] Implanted:Qty: 1 on 12/26/2010 at [place] [facility] [place] Chest [employer] 225-241 / / [id number] Lens Intraoc 17.5 - [id number] - [id number] Implanted:Qty: 1 on 02/07/2019 by Quincy Paiz MD at OR [facility] Right: Eye [employer]OMB 08/14/2023 [id number] / [id number] / [id number] Lens Intraoc 17.0 - [id number] - [id number] Implanted:Qty: 1 on 03/01/2019 by Quincy Paiz MD at OR [facility] Left: Eye BAUSCH & LOMB 09/12/2022 [id number] / [id number] / [id number] documented as of this encounter Visit Diagnoses Diagnosis BPH with obstruction/lower urinary tract symptoms Hypertrophy of prostate with urinary obstruction and other lower urinary tract symptoms (LUTS) documented in this encounter Advance Directives Latest Code Status on File Code Status Date Activated Date Inactivated Comments Full Code 12/26/2010 11:49 AM 12/30/2010 3:24 PM Th is order reflects the patients wishes and were consensually agreed upon. Care Teams Food Preparation Supervisor Relationship Specialty Start Date End Date Suzette Danielle MD [address] [place] [address] [place] [address] PCP - General Family Medicine 08/03/18 documented as of this encounter
--- OUTSIDE RECORDS SUMMARY | 2022-11-16 13:06 | External Medical Summary ---
Author Name Unknown Address Unknown Organization K01:[facility] [place] - [address] [place] [address] Laboratory Report Ordering Provider Test Date Status VITOR BRANDT 08/21/2022 07:39:42 Final Observation Date Value Abnormality Reference (Units ) Status BUN 08/21/2022 07:39:42 29 Above high normal 6-20 (mg/dL) Final Creatinine 08/21/2022 07:39:42 1.3 Above high normal 0.6-1.2 (mg/dL) Final Glomerular filtration rate/1.73 sq M.predicted [Volume Rate/Area] in Serum, Plasma or Blood by Creatinine-based formula (CKD-EPI) 08/21/2022 07:39:42 55 Below low normal >=60 (mL/min) Final Performing Location [facility] [place] - [address] [place] [address]
--- OUTSIDE RECORDS SUMMARY | 2022-11-16 13:06 | External Medical Summary | Summary of Care ---
Author Name Unknown Organization [facility] Address [address] [facility] [address] Phone [phone] Care Team Providers Care Environmental Resource Specialist Name Role Phone Smith Orozco MD Primary Care Provider Reason for Visit * Reason Comments Dosage Adjustment Via Phone (anticoag Cl inic) Hyperlipidemia Encounter Details Date Type Department Care Team Description 10/23/2022 Pharmacy Cardiology [place] [facility] [address] [place] [address] [place] [address] [facility] Card[facility] [address] [facility] [place] [phone] Dyslipidemia, goal LDL below 70* Allergies Active Allergy Reactions Severity Noted Date Comments Acetaminophen Renal complications 04/27/2009 Aspirin 08/13/2000 Stomach pain Cholestyramine 08/13/2000 Kidney pain Atorvastatin Calcium 04/28/2007 cramping Niacin Muscle pain 07/22/2007 Simvastatin Hives 08/13/2000 Ezetimibe 04/28/2007 Cramping ankles, turned feet inward documented as of this encounter (statuses as of 10/22/2022) Medications Medication Sig Dispensed Refills Start Date [...] hemoglobin A1c goal of less than 8.0% ([facility]) USE ONE TEST STRIP TO TEST BLOOD SUGAR LEVELS TWICE A DAY 200 Strip 5 11/11/2019 Active OneTouch UltraSoft Lancets MISCIndications:Type 2 diabetes mellitus with hemoglobin A1c goal of less than 8.0% ([facility]) USE ONE LANCET TO TEST [...] goal LDL below 70,Statin intolerance,Atherosc lerosis of [place] coronary artery of [place] heart without angina pectoris,Old [place] (myocardial infarction) INJECT UNDER THE SKIN 75 MG EVERY 14 DAYS . 6 mL 3 05/09/2022 Active amLODIPine Besylate 2.5 MG Oral Tablet (Norvasc)Indications :Essential hypertension with goal blood pressure less than 140/90,Old [place] (myocardial infarction) Take 1 Tablet by mouth in the morning. 90 Tablet 3 05/13/2022 Active Valsartan 320 MG Oral Tablet (Diovan)Indications: Atherosclerosis of [place] coronary artery of [place] heart without angina pectoris,Primary hypertension Take 0.5 [...] as of this encounter (statuses as of 10/22/2022) Active Problems Problem Noted Date CKD (chronic [...] to patient at prior appointment. Atherosclerosis of [place] co ronary artery of [place] heart without angina pectoris 11/30/2001 GENERAL OSTEOARTHROSIS Multiple pulmonary nodules Complex renal cyst Overview: 3.8 cm; L Old [place] (myocardial infarction) documented as of this encounter (statuses as of 10/22/2022) Resolved Problems Problem Noted Date Resolved Date Genomics Cardio Research Other*[id number] 201004/22/2016 Overview: Study Titile: Genomics Markers for Patients with Cardiovascular Disease Project # [id number] PI: Amalia Kingsley MD Please call [phone] with study related questions HTN, goal below 130/80 04/15/2010 2 Overview: Per HTN Protocol #27. DM TYPE 2 CAUSING RENAL DZ 01/11/200902/01 Overview: Per Diabetes Taxonomy. Added per DM w/ renal complications protocol #4 DIAB RENAL MANIF ADULT 10/06/2007 9 Overview: Per Diabetes Taxonomy. Added per DM w/ renal complications protocol #4 Seborrheic dermatitis 01/24/2002 10/12/2015 Solar lentigo 10/27/2001 04/30/2016 ACUTE MT; INFERIOR WALL;SUBSEQUENT EPISODE CARE 06/21/2013 HYPERTENSION NOS [...] as of this encounter (statuses as of 10/22/2022) Immunizations Name Administration Dates Next Due COVID-19 mRNA, LNP-s, No Pre serve, 2-Dose Series ([place]) 01/09/2021,06/08/2020,05/18/2020 COVID-19, LNP-s, No Preserve , Johann-sucrose, Ages 12+ (Pfizer) 06/18/2021 Covid-19, Mrna, Lnp-s, Pf, B ivalent, 30 Mcg, IM, 12 yrs and above ([place]) 12/17/2021 Pneumococcal Conjugate Vacc, 13 Valent (Prevnar) [...] Progress Notes * Aparna Helms RPh - 10/22/2022 2:26 PM EDT [facility] Update Pt due for repeat lipid panel. MyG sent. Labs: Lipid panel (ordered) Follow up: 2 weeks Aparna Helms Pharm D Clinical Pharmacist Cardiology 10/22/2022,2:26 PM documented in this encounter Plan of Treatment Upcoming Encounters Date Type Specialty Care Team Description 11/05/2022 Pharmacy Cardiology [facility] Cardiology [address] [place] [address] [place] [address] 11/12/2022 Office Visit Cardiology Alcon Lott PA-C [address] [place] [address] 12/17/2022 Office Visit Dermatology Kim Kong MD [address] [facility] [place] [address] 02/12/2023 Office Visit Family Medicine Smith Orozco MD [address] [place] [address] [place] [address] Scheduled Orders Name Type Priority Associated Diagnoses Orde r Schedule LIPID PANEL WITH DIRECT LDL IF TG IS HIGH Lab Routine Dyslipidemia, goal LDL below 70 Expected: 10/23/2022, Expires: 10/23/2023 Health Maintenance Due Date Last Done Comments [...] this encounter Medical Devices Implanted Type Area Bed Setter Device Identifier Shelf Expiration Date Model / Serial / Lot Band Ankur 225-241 - [id number] Implanted:Qty: 1 on 12/26/2010 at [place] [facility] [place] Chest [employer] 225-241 / / [id number] Lens Intraoc 17.5 - [id number] - [id number] Implanted:Qty: 1 on 02/07/2019 by Quincy Paiz MD at OR [facility] Right: Eye [employer] 08/14/2023 [id number] / [id number] / [id number] Lens Intraoc 17.0 - [id number] - [id number] Implanted:Qty: 1 on 03/01/2019 by Quincy Paiz MD at OR [facility] Left: Eye [employer]OM[employer] 09/12/2022 [id number] / [id number] / [id number] documented as of this encounter Visit Diagnoses Diagnosis Dyslipidemia, goal LDL below 70- Primary Other and unspecified hyperlipidemia documented in this encounter Advance Directives Latest Code Status on File Code Status Date Activated Date Inactivated Comments Full Code 12/26/2010 11:49 AM 12/30/2010 3:24 PM Th is order reflects the patients wishes and were consensually agreed upon. Care Teams Environmental Resource Specialist Relationship Specialty Start Date End Date Smith Orozco MD [address] [place] [address] [place] [address] PCP - General Family Medicine 08/03/18 documented as of this encounter
--- OUTSIDE RECORDS SUMMARY | 2022-11-16 13:07 | External Medical Summary | Summary of Care ---
Author Name Unknown Organization [facility] Address [address] [facility] [place] [address] Phone [phone] Care Team Providers Care Manager Transport Name Role Phone Smith Orozco MD Primary Care Provider Reason for Visit * Reason Onset Date Comments Test Results 08/01/2022 Encounter Details Date Type Department Care Team Description 08/01/2022 Telephone Cardiology, [facility] [address] [place] [address] Alcon Lott PA-C [address] [place] [address] Test Results Allergies Active Allergy Reactions Severity Noted Date Comments Acetaminophen Renal complications 04/27/2009 Aspirin 08/13/2000 Stomach pain Cholestyramine 08/13/2000 Kidney pain Atorvastatin Calcium 04/28/2007 cramping Niacin Muscle pain 07/22/2007 Simvastatin Hives 08/13/2000 Ezetimibe 04/28/2007 Cramping ankles, turned feet inward documented as of this encounter (statuses as of 08/01/2022) Medications Medication Sig Dispensed Refills Start Date [...] hemoglobin A1c goal of less than 8.0% ([facility]) USE ONE TEST STRIP TO TEST BLOOD SUGAR LEVELS TWICE A DAY 200 Strip 5 11/11/2019 Active OneTouch UltraSoft Lancets MISCIndications:Type 2 diabetes mellitus with hemoglobin A1c goal of less than 8.0% ([facility]) USE ONE LANCET TO TEST [...] Oral Tablet Take by mouth. 0 Active Finasteride 5 MG Oral Tablet (Proscar)Indications :BPH with obstruction/lower urinary tract symptoms Take 1 Tablet (5 mg) by mouth in the morning. 90 Tablet 1 02/10/2022 Active Jardiance 25 MG Oral TabletIndications:Ty pe 2 diabetes mellitus with hemoglobin A1c goal of less than 8.0% ([facility]),Type 2 diabetes mellitus with stage 2 chronic kidney disease, without long-term current use of insulin (HCC),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) Take 1 Tablet (25 mg) by mouth in the morning. 90 Tablet 1 02/10/2022 Active Isosorbide Mononitrate ER 60 MG Oral Tablet Extended Release 24 Hour (Imdur) TAKE 1 TABLET BY MOUTH EVERY DAY IN THE MORNING 90 Tablet 3 04/23/2022 Active Praluent 75 MG/ML Subcutaneous Solution Auto-injector (Alirocumab)Indicati ons:Dyslipidemia, goal LDL below 70,Statin intolerance,Atherosc lerosis of [place] coronary artery of [place] heart without angina pectoris,Old ID (myocardial infarction) INJECT UNDER THE SKIN 75 MG EVERY 14 DAYS . 6 mL 3 05/09/2022 Active amLODIPine Besylate 2.5 MG Oral Tablet (Norvasc)Indications :Essential hypertension with goal blood pressure less than 140/90,Old ID (myocardial infarction) Take 1 Tablet by mouth in the morning. 90 Tablet 3 05/13/2022 Active Valsartan 320 MG Oral Tablet (Diovan)Indications: Atherosclerosis of [place] coronary artery of [place] heart without angina pectoris,Primary hypertension Take 0.5 [...] THE MORNING 90 Capsule 1 07/20/2022 Active documented as of this encounter (statuses as of 08/01/2022) Active Problems Problem Noted Date CKD (chronic [...] to patient at prior appointment. Atherosclerosis of [place] co ronary artery of [place] heart without angina pectoris 11/30/2001 GENERAL OSTEOARTHROSIS Multiple pulmonary nodules Complex renal cyst Overview: 3.8 cm; L Old ID (myocardial infarction) documented as of this encounter (statuses as of 08/01/2022) Resolved Problems Problem Noted Date Resolved Date Genomics Cardio Research Other*[id number] 201004/22/2016 Overview: Study Titile: Genomics Markers for Patients with Cardiovascular Disease Project # [id number] PI: Amalia Kingsley MD Please call [phone] with study related questions HTN, goal below 130/80 04/15/2010 2 Overview: Per HTN Protocol #27. DM TYPE 2 CAUSING RENAL DZ 01/11/200902/01 Overview: Per Diabetes Taxonomy. Added per DM w/ renal complications protocol #4 DIAB RENAL MANIF ADULT 10/06/2007 9 Overview: Per Diabetes Taxonomy. Added per DM w/ renal complications protocol #4 Seborrheic dermatitis 01/24/2002 10/12/2015 Solar lentigo 10/27/2001 04/30/2016 ACUTE ID; INFERIOR WALL;SUBSEQUENT EPISODE CARE 06/21/2013 HYPERTENSION NOS [...] as of this encounter (statuses as of 08/01/2022) Immunizations Name Administration Dates Next Due COVID-19 mRNA, LNP-s, No Pre serve, 2-Dose Series ([employer]) 01/09/2021,06/08/2020,05/18/2020 COVID-19, LNP-s, No Preserve , Johann-sucrose, Ages 12+ (Pfizer) 06/18/2021 Covid-19, Mrna, Lnp-s, Pf, B ivalent Booster, 30 Mcg, IM, 12 yrs and above ([employer]) 12/17/2021 Pneumococcal Conjugate Vacc, 13 Valent (Prevnar) [...] encounter Miscellaneous Notes * Telephone Encounter - Juan M Addison LPN - 08/01/2022 10:02 AM EDT Sent patient a [email or web address] message to make aware. Lab ordered. ----- Message from Alcon Lott PA-C sent at 07/31/2022 5:15 PM EDT ----- Metabolic panel notable for a decline in kidney function; ? secondary to being in the fasting state Increase free water intake. Repeat metabolic panel in 2 to 3 weeks documented in this encounter Plan of Treatment Upcoming Encounters Date Type Specialty Care Team Description 08/12/2022 Office Visit Family Medicine Smith Orozco MD [address] [place] [address] [place] [address] 10/23/2022 Pharmacy Cardiology [facility] [address] [place] [address] [place] [id number] 11/12/2022 Office Visit Cardiology Alcon Lott PA-C [address] [place] [address] 12/17/2022 Office Visit Dermatology Kim Kong MD [address] [facility] [place] [address] Scheduled Orders Name Type Priority Associated Diagnoses Orde r Schedule BASIC METABOLIC PANEL Lab Routine Essential hypertension with goal blood pressure less than 140/90 Expected: 08/15/2022 (Approximate), Expires: 08/02/2023 Health Maintenance Due Date Last Done Comments Depression Screening, Annual for Pts 12 and Over 08/29/2020 08/30/2019 DIABETES-EYE EXAM 03/28/2022 03/28/2021, , 11/09/2018, Additional history exists Albumin/Creatinine Ratio 05/20/2022 022, 02/25/2021, 03/01/2020, Additional history exists DTaP,Tdap,and Td Vaccines (2 - Td or Tdap) 08/05/2022 08/05/2012, 03/16/2003, 03/16/2003 DIABETES-FOOT EXAM 08/06/2022 08/06/2021, 1 05/02/2019, 01/24/2019, Additional history exists HgA1C 01/31/2023 07/31/2022, 11/14, 05/20/2021, Additional history exists GFR - Renal Function 08/01/2023 07/31/2022, 12/02/2021, 02/25/2021, Additional history exists Yearly B-12 08/01/2023 07/31/2022, /11/2020, 08/30/2019, Additional history exists Pneumococcal Vaccine: 65+ [...] this encounter Medical Devices Implanted Type Area Compressed Gas Plant Worker Device Identifier Shelf Expiration Date Model / Serial / Lot Band Ankur 225-241 - [id number] Implanted:Qty: 1 on 12/26/2010 at OR [facility] Chest [employer] 225-241 / / [id number] Lens Intraoc 17.5 - [id number] - [id number] Implanted:Qty: 1 on 02/07/2019 by Quincy Paiz MD at OR [facility] Right: Eye [employer] 08/14/2023 [id number] / [id number] / [id number] Lens Intraoc 17.0 - [id number] - [id number] Implanted:Qty: 1 on 03/01/2019 by Quincy Paiz MD at OR [facility] Left: Eye [employer]OM[employer] 09/12/2022 [id number] / [id number] / [id number] documented as of this encounter Visit Diagnoses Diagnosis Essential hypertension with goal blood pressure less than 140/90- Primary documented in this encounter Advance Directives Latest Code Status on File Code Status Date Activated Date Inactivated Comments Full Code 12/26/2010 11:49 AM 12/30/2010 3:24 PM Th is order reflects the patients wishes and were consensually agreed upon. Care Teams Manager Transport Relationship Specialty Start Date End Date Smith Orozco MD [address] [place] [address] [place] [address] PCP - General Family Medicine 08/03/18 documented as of this encounter
--- OUTSIDE RECORDS SUMMARY | 2022-11-16 13:07 | External Medical Summary | Summary of Care ---
Author Name Unknown Organization [facility] Address [address] [facility] [address] Phone [phone] Care Team Providers Care Periodicals Library Assistant Name Role Phone Smith Orozco MD Primary Care Provider Reason for Visit * Reason Onset Date Comments Precert In Process 07/28/2022 19 [place] SILVER SCRIPT PRALUENT Encounter Details Date Type Department Care Team Description 07/28/2022 Telephone Cardiology [place] [address] [place] [address] [facility] [place] [phone] Precert In Process (19 [place] SILVER SCRIPT OR... Allergies Active Allergy Reactions Severity Noted Date [...] hemoglobin A1c goal of less than 8.0% ([facility]) USE ONE TEST STRIP TO TEST BLOOD SUGAR LEVELS TWICE A DAY 200 Strip 5 11/11/2019 Active OneTouch UltraSoft Lancets MISCIndications:Type 2 diabetes mellitus with hemoglobin A1c goal of less than 8.0% ([facility]) USE ONE LANCET TO TEST BLOOD [...] hemoglobin A1c goal of less than 8.0% ([facility]),Type 2 diabetes mellitus with stage 2 [...] goal LDL below 70,Statin intolerance,Atherosc lerosis of [place] coronary artery of [place] heart without angina pectoris,Old [place] (myocardial infarction) INJECT UNDER THE SKIN 75 MG EVERY 14 DAYS . 6 mL 3 05/09/2022 Active amLODIPine Besylate 2.5 MG Oral Tablet (Norvasc)Indications :Essential hypertension with goal blood pressure less than 140/90,Old UT (myocardial infarction) Take 1 Tablet by mouth in the morning. 90 Tablet 3 05/13/2022 Active Valsartan 320 MG Oral Tablet (Diovan)Indications: Atherosclerosis of [place] coronary artery of [place] heart without angina pectoris,Primary hypertension Take 0.5 [...] hemoglobin A1c goal of less than 8.0% ([facility]) TAKE 1 TABLET BY MOUTH TWICE A [...] to patient at prior appointment. Atherosclerosis of [place] co ronary artery of [place] heart without angina pectoris 11/30/2001 GENERAL OSTEOARTHROSIS Multiple pulmonary nodules Complex renal cyst Overview: 3.8 cm; L Old [place] (myocardial infarction) documented as of this encounter (statuses as of 08/01/2022) Resolved Problems Problem Noted Date Resolved Date Genomics Cardio Research Other*[id number] 201004/22/2016 Overview: Study Titile: Genomics Markers for Patients with Cardiovascular Disease Project # [id number] PI: Amalia Kingsley MD Please call [phone] with study related questions HTN, goal below 130/80 04/15/2010 2 Overview: Per HTN Protocol #27. DM TYPE 2 CAUSING RENAL DZ 01/11/200902/01 Overview: Per Diabetes Taxonomy. Added per DM w/ renal complications protocol #4 DIAB RENAL MANIF ADULT 10/06/2007 9 Overview: Per Diabetes Taxonomy. Added per DM w/ renal complications protocol #4 Seborrheic dermatitis 01/24/2002 10/12/2015 Solar lentigo 10/27/2001 04/30/2016 ACUTE UT; INFERIOR WALL;SUBSEQUENT EPISODE CARE 06/21/2013 HYPERTENSION NOS [...] mRNA, LNP-s, No Pre serve, 2-Dose Series ([email or web address]) 01/09/2021,06/08/2020,05/18/2020 COVID-19, LNP-s, No Preserve , Johann-sucrose, Ages 12+ (Pfizer) 06/18/2021 Covid-19, Mrna, Lnp-s, Pf, B ivalent Booster, 30 Mcg, IM, 12 yrs and above ([email or web address]) 12/17/2021 Pneumococcal Conjugate Vacc, 13 Valent (Prevnar) 10/16/2015 Pneumococcal Polysaccharide PPV23 (Pneumovax) 12/15/2006,04/01/2002 Seasonal Influenza, Quadriva lent Hd (Fluzone Hd) 11/19/2021,12/01/2020 Seasonal Influenza, Quadriva lent, No Preserve, 6 Mons & Above, IM 11/17/2017 Seasonal Influenza, Quadriva lent, No Preserve, Adjuvanted, 65+ Yrs, IM 11/22/2019 Seasonal Influenza, Quadriva lent, No Preserve, IM 11/21/2016,11/27/2015 Seasonal Influenza, Split, I IV3, With Preserve, Inj 12/04/2014,11/23/2013,12/07/2012,11/14,11/20/2010,12/13/2009,01/11/20 09,01/04/2008,12/15/2006,12/23/2005,1 ,12/25/2003,12/29/2002,01/19,01/05/2001 01/19/2003 Seasonal Influenza, Trivalen t, Adjuvanted, 65+ yrs [...] encounter Miscellaneous Notes * Telephone Encounter - Aparnacarolina Helms, [facility] - 07/28/2022 12:19 PM EDT PCSK-9 Inhibitor Prior-Authorization Request Medication/Disease State Information: PCSK9 inhibitor needing prior auth: Praluent 75 mg every 2 weeks Diagnosis: Hyperlipidemia; CAD (ASCVD) Quantity (30 or 90 day): 90 days Failed or Intolerant to or Contraindicated: Lipitor-cramping Simvastatin-hives Zetia-cramping ankles LDL Goal: < 70 mg/dL Pre-Treatment LDL: 143 mg/dL Date: 07/25/16 o Submit lipid panel from 07/31 showing LDL of 89 on Praluent Current therapy: Praluent 75 mg every 2 weeks Trial of max tolerated dose of Statin and Ezetimibe: yes Lipid Panel Results: Results for orders placed or performed in visit on 01/31/13 LIPID PANEL Result Value Ref Range HOURS FASTING 12 hours Triglycerides 166 <200 mg/dL Cholesterol 197 <200 mg/dL HDL Cholesterol 46 >39 mg/dL Cholesterol-HDL Ratio 4.3 LDL Cholesterol 118 0 - 129 mg/dL Results for orders placed or performed in visit on 06/28/20 LIPID PANEL WITH DIRECT LDL IF TG IS HIGH Result Value Ref Range Triglycerides 137 <=174 mg/dL Cholesterol 167 <200 mg/dL HDL Cholesterol 66 >39 mg/dL Non-HDL Cholesterol 101 <=159 mg/dL LDL Cholesterol 74 <=129 mg/dL Route referral message to CARDIOLOGY PHARMACIST CLYDE [[id number]]. Please submit to BOTH primary insurance and secondary insurance (ex PACE/PACENET) if applicable. documented in this encounter Plan of Treatment Upcoming Encounters Date Type Specialty Care Team Description 08/12/2022 Office Visit Family Medicine Smith Orozco MD [address] [place] [address] [place] [address] 10/23/2022 Pharmacy Cardiology [facility] Cardiology [address] [place] [address] [place] [address] 11/12/2022 Office Visit Cardiology Alcon Lott PA-C [address] [place] [address] 12/17/2022 Office Visit Dermatology Kim Kong MD [address] [place] [address] Health Maintenance Due Date Last Done Comments Depression Screening, Annual for Pts 12 and Over 08/29/2020 08/30/2019 DIABETES-EYE EXAM 03/28/2022 03/28/2021, , 11/09/2018, Additional history exists Albumin/Creatinine Ratio 05/20/2022 022, 02/25/2021, 03/01/2020, Additional history exists DTaP,Tdap,and Td Vaccines (2 - Td or Tdap) 08/05/2022 08/05/2012, 03/16/2003, 03/16/2003 DIABETES-FOOT EXAM 08/06/2022 08/06/2021, 05/02/2019, 01/24/2019, Additional history exists HgA1C 01/31/2023 [...] this encounter Medical Devices Implanted Type Area Concrete Products Dispatcher Device Identifier Shelf Expiration Date Model / Serial / Lot Band Ankur 225-241 - [id number] Implanted:Qty: 1 on 12/26/2010 at [place] [facility] [place] Chest [employer] 225-241 / / [id number] Lens Intraoc 17.5 - [id number] - [id number] Implanted:Qty: 1 on 02/07/2019 by Quincy Paiz MD at OR [facility] Right: Eye [employer] 08/14/2023 [id number] / [id number] / [id number] Lens Intraoc 17.0 - [id number] - [id number] Implanted:Qty: 1 on 03/01/2019 by Quincy Paiz MD at OR [facility] Left: Eye [employer] 09/12/2022 [id number] / [id number] / [id number] documented as of this encounter Results * LIPID PANEL WITH DIRECT LDL IF TG IS HIGH (07/31/2022 7:58 AM EDT) Triglycerides 80 <=174 mg/dL 07/31/2022 3:09 PM EDT LABORATORY [facility] [place] Comment: Triglyceride Reference Ranges (mg/dL): <150 Acceptable 150-174 Borderline high 175-499 High >=500 Very high Cholesterol 176 <200 mg/dL 07/31/2022 3:09 PM EDT LABORATORY [facility] [place] Comment: Total Cholesterol Reference Ranges (mg/dL): <200 Desirable 200-239 Borderline high >=240 High HDL Cholesterol 71 >39 mg/dL 3:09 PM EDT LABORATORY [facility] [place] Comment: HDL Cholesterol Reference Ranges (mg/dL): >=60 High (Desirable) <50 Low (Undesirable) For Females <40 Low (Undesirable) For Males Non-HDL Cholesterol 105 <=159 mg/dL 07/31/2022 3:09 PM EDT LABORATORY [facility] [place] Comment: Non-HDL Cholesterol Reference Range (mg/dL): <100 Target level for high risk ASCVD patient <130 Optimal for general population 130-159 Near optimal for general population 160-189 Borderline High 190-219 High >=220 Very High LDL Cholesterol 89 <=129 mg/dL 07/31/2022 3:09 PM EDT LABORATORY [facility] [place] Comment: LDL Cholesterol Reference Ranges (mg/dL): <70 Target level for high risk ASCVD patient <100 Optimal for general population 100-129 Near optimal for general population 130-159 Borderline high 160-189 High >=190 Very high Blood Venous blood specimen / Unknown Venipuncture / Unknown 07/31/2022 7:58 AM EDT 07/31/2022 8:00 AM EDT Aparna Helms [facility] LAB BLOOD O RDERABLES LABORATORY [facility] [place] [address] [place] [address] documented in this encounter Visit Diagnoses Diagnosis Dyslipidemia, goal LDL below 70- Primary Other and unspecified hyperlipidemia documented in this encounter Advance Directives Latest Code Status on File Code Status Date Activated Date Inactivated Comments Full Code 12/26/2010 11:49 AM 12/30/2010 3:24 PM Th is order reflects the patients wishes and were consensually agreed upon. Care Teams Periodicals Library Assistant Relationship Specialty Start Date End Date Smith Orozco MD [address] [place] [address] [place] [address] PCP - General Family Medicine 08/03/18 documented as of this encounter
--- OUTSIDE RECORDS SUMMARY | 2022-11-16 13:07 | External Medical Summary | Summary of Care ---
Author Name Unknown Organization [facility] Address [address] [facility] [address] Phone [phone] Care Team Providers Care Permastone Applicator Name Role Phone Smith Orozco MD Primary Care Provider Reason for Visit * Reason Onset Date Comments Precert In Process 07/28/2022 19 [place] SILVER SCRIPT PRALUENT Precert Approved 07/28/2022 PRALUENT Encounter Details Date Type Department Care Team Description 07/28/2022 Telephone [place]iology [place] [address] [place] [address] [facility] 21 [facility] [place] [address] Precert In Process (19 NV SILVER SCRIPT DC... Allergies Active Allergy Reactions Severity Noted Date [...] hemoglobin A1c goal of less than 8.0% ([facility]) USE ONE TEST STRIP TO TEST BLOOD SUGAR LEVELS TWICE A DAY 200 Strip 5 11/11/2019 Active OneTouch UltraSoft Lancets MISCIndications:Type 2 diabetes mellitus with hemoglobin A1c goal of less than 8.0% ([facility]) USE ONE LANCET TO TEST BLOOD SUGAR [...] hemoglobin A1c goal of less than 8.0% ([facility]),Type 2 diabetes mellitus with stage 2 chronic kidney disease, without long-term current use of insulin (HCC),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 ([facility]) Take 1 Tablet (25 mg) by mouth in the morning. 90 Tablet 1 02/10/2022 Active Isosorbide Mononitrate ER 60 MG Oral Tablet Extended Release 24 Hour (Imdur) TAKE 1 TABLET BY MOUTH EVERY DAY IN THE MORNING 90 Tablet 3 04/23/2022 Active Praluent 75 MG/ML Subcutaneous Solution Auto-injector (Alirocumab)Indicati ons:Dyslipidemia, goal LDL below 70,Statin intolerance,Atherosc lerosis of [place] coronary artery of [place] heart without angina pectoris,Old MT (myocardial infarction) INJECT UNDER THE SKIN 75 MG EVERY 14 DAYS . 6 mL 3 05/09/2022 Active amLODIPine Besylate 2.5 MG Oral Tablet (Norvasc)Indications :Essential hypertension with goal blood pressure less than 140/90,Old MT (myocardial infarction) Take 1 Tablet by mouth in the morning. 90 Tablet 3 05/13/2022 Active Valsartan 320 MG Oral Tablet (Diovan)Indications: Atherosclerosis of [place] coronary artery of [place] heart without angina pectoris,Primary hypertension Take 0.5 Tablets by mouth in the morning and 0.5 Tablets before bedtime. 90 Tablet 1 05/12/2022 Active Tretinoin 0.05 % External Cream (Retin-A)Indications :Actinic keratosis APPLY NIGHTLY TO FACE DIRECTED,CAN MIX WITH PONDS 45 g 5 07/10/2022 Active metFORMIN HCl 1000 MG Oral Tablet (Glucophage)Indicati ons:Type 2 diabetes mellitus with diabetic nephropathy ([facility]),Type 2 diabetes mellitus with hemoglobin A1c goal of less than 8.0% ([facility]) TAKE 1 TABLET BY MOUTH TWICE A [...] to patient at prior appointment. Atherosclerosis of [place] co ronary artery of [place] heart without angina pectoris 11/30/2001 GENERAL OSTEOARTHROSIS Multiple pulmonary nodules Complex renal cyst Overview: 3.8 cm; L Old MT (myocardial infarction) documented as of this encounter (statuses as of 08/01/2022) Resolved Problems Problem Noted Date Resolved Date Genomics Cardio Research Other*[id number] 201004/22/2016 Overview: Study Titile: Genomics Markers for Patients with Cardiovascular Disease Project # [id number] PI: Amalia Kingsley MD Please call [phone] with study related questions HTN, goal below [...] mRNA, LNP-s, No Pre serve, 2-Dose Series (iMedicare) 01/09/2021,06/08/2020,05/18/2020 COVID-19, LNP-s, No Preserve , Johann-sucrose, Ages 12+ (Pfizer) 06/18/2021 Covid-19, Mrna, Lnp-s, Pf, B ivalent Booster, 30 Mcg, IM, 12 yrs and above (iMedicare) 12/17/2021 Pneumococcal Conjugate Vacc, 13 Valent (Prevnar) [...] encounter Miscellaneous Notes * Telephone Encounter - Aparna Helms, [facility] - 07/28/2022 12:19 PM EDT PCSK-9 Inhibitor [...] mg/dL Route referral message to CARDIOLOGY PHARMACIST [place] [[id number]]. Please submit to BOTH primary insurance and secondary insurance (ex PACE/PACENET) if applicable. documented in this encounter Plan of Treatment Upcoming Encounters Date Type Specialty Care Team Description 08/12/2022 Office Visit Family Medicine Smith Orozco MD [address] [place] [address] [place] [address] 10/23/2022 Pharmacy Cardiology [facility] Cardiology [address] [place] [address] [place] [phone] 11/12/2022 Office Visit Cardiology Alcon Lott PA-Adelfo [address] [place] [address] 12/17/2022 Office Visit [facility]atology [facility] [address] [facility] [address] Health Maintenance Due Date Last Done Comments Depression Screening, Annual for Pts 12 and Over 08/29/2020 08/30/2019 DIABETES-EYE EXAM 03/28/2022 03/28/2021, , 11/09/2018, Additional history exists Albumin/Creatinine Ratio 05/20/202205/20/2 022, 02/25/2021, 03/01/2020, Additional history exists DTaP,Tdap,and [...] encounter Medical Devices Implanted Type Area Metal Fitter Device Identifier Shelf Expiration Date Model / Serial / Lot Band [facility] 225-241 - [id number] Implanted:Qty: 1 on 12/26/2010 [place] [facility] [place] [employer] 225-241 / / [id number] Lens Intraoc 17.5 - [id number] - [id number] Implanted:Qty: 1 on 02/07/2019 by Quincy Paiz MD at OR [facility] Right: Eye BAUSCH [employer] LOMB 08/14/2023 [id number] / [id number] / [id number] Lens Intraoc 17.0 - [id number] - [id number] Implanted:Qty: 1 on 03/01/2019 by Quincy Paiz MD at OR [facility] Left: Eye BAUSCH & LOMB 09/12/2022 [id number] / [id number] / [id number] documented as of this encounter Results * LIPID PANEL WITH DIRECT LDL IF TG IS HIGH (07/31/2022 7:58 AM EDT) Triglycerides 80 <=174 mg/dL 07/31/2022 3:09 PM EDT [facility] Comment: Triglyceride Reference Ranges (mg/dL): <150 Acceptable 150-174 Borderline high 175-499 High >=500 Very high Cholesterol 176 <200 mg/dL 07/31/2022 3:09 PM EDT [facility] Comment: Total Cholesterol Reference Ranges (mg/dL): <200 Desirable 200-239 Borderline high >=240 High HDL Cholesterol 71 >39 mg/dL 3:09 PM EDT [facility] Comment: HDL Cholesterol Reference Ranges (mg/dL): >=60 High (Desirable) <50 Low (Undesirable) For Females <40 Low (Undesirable) For Males Non-HDL Cholesterol 105 <=159 mg/dL 07/31/2022 3:09 PM EDT [facility] Comment: Non-HDL Cholesterol Reference Range (mg/dL): <100 Target level for high risk ASCVD patient <130 Optimal for general population 130-159 Near optimal for general population 160-189 Borderline High 190-219 High >=220 Very High LDL Cholesterol 89 <=129 mg/dL 07/31/2022 3:09 PM EDT [facility] Comment: LDL Cholesterol Reference Ranges (mg/dL): <70 Target level for high risk ASCVD patient <100 Optimal for general population 100-129 Near optimal for general population 130-159 Borderline high 160-189 High >=190 Very high Blood Venous blood specimen / Unknown Venipuncture / Unknown 07/31/2022 7:58 AM EDT 07/31/2022 8:00 AM EDT Aparna Helms [facility] LAB BLOOD O RDERABLES LAB[facility] [address] [place] [address] documented in this encounter Visit Diagnoses Diagnosis Dyslipidemia, goal LDL below 70- Primary Other and unspecified hyperlipidemia documented in this encounter Advance Directives Latest Code Status on File Code Status Date Activated Date Inactivated Comments Full Code 12/26/2010 11:49 AM 12/30/2010 3:24 PM Th is order reflects the patients wishes and were consensually agreed upon. Care Teams Permastone Applicator Relationship Specialty Start Date End Date Smith Orozco MD [address] [place] [address] [place] [address] PCP - General Family Medicine 08/03/18 documented as of this encounter
--- OUTSIDE RECORDS SUMMARY | 2022-11-16 13:07 | External Medical Summary | Summary of Care ---
Author Name Unknown Organization [facility] Address [address] [facility] [facility] [address] Phone [phone] Care Team Providers Care Graining Machine Operator Name Role Phone Smith Orozco MD Primary Care Provider Reason for Visit * Reason Onset Date Comments Precert In Process 07/28/2022 19 [place] SILVER SCRIPT PRALUENT Encounter Details Date Type Department Care Team Description 07/28/2022 Telephone Cardiology [place] [address] [facility] [place] [address] [facility] 21 [facility] [place] [phone] Precert In Process (19 [place] SILVER SCRIPT NE... Allergies Active Allergy Reactions Severity Noted Date [...] goal of less than 8.0% ([facility]) USE ONE TEST STRIP TO TEST BLOOD SUGAR LEVELS TWICE A DAY 200 Strip 5 11/11/2019 Active OneTouch UltraSoft Lancets MISCIndications:Type 2 diabetes mellitus with hemoglobin A1c goal of less than 8.0% ([facility]) USE ONE LANCET TO TEST [...] goal of less than 8.0% ([facility]),Type 2 diabetes mellitus with stage [...] goal LDL below 70,Statin intolerance,Atherosc lerosis of [place] coronary artery of [place] heart without angina pectoris,Old [place] (myocardial infarction) INJECT UNDER THE SKIN 75 MG EVERY 14 DAYS . 6 mL 3 05/09/2022 Active amLODIPine Besylate 2.5 MG Oral Tablet (Norvasc)Indications :Essential hypertension with goal blood pressure less than 140/90,Old HI (myocardial infarction) Take 1 Tablet by mouth in the morning. 90 Tablet 3 05/13/2022 Active Valsartan 320 MG Oral Tablet (Diovan)Indications: Atherosclerosis of [place] coronary artery of [place] heart without angina pectoris,Primary hypertension Take 0.5 [...] goal of less than 8.0% ([facility]) TAKE 1 TABLET BY MOUTH TWICE [...] to patient at prior appointment. Atherosclerosis of [place] co ronary artery of [place] heart without angina pectoris 11/30/2001 GENERAL OSTEOARTHROSIS Multiple pulmonary nodules Complex renal cyst Overview: 3.8 cm; L Old HI (myocardial infarction) documented as of this encounter (statuses as of 08/01/2022) Resolved Problems Problem Noted Date Resolved Date Genomics Cardio Research Other*[id number] 201004/22/2016 Overview: Study Titile: Genomics Markers for Patients with Cardiovascular Disease Project # [id number] PI: Amalia Kingsley MD Please call [phone] with study related questions HTN, goal below 130/80 04/15/2010 2 Overview: Per HTN Protocol #27. DM TYPE 2 CAUSING RENAL DZ 01/11/200902/01 Overview: Per Diabetes Taxonomy. Added per DM w/ renal complications protocol #4 DIAB RENAL MANIF ADULT 10/06/2007 9 Overview: Per Diabetes Taxonomy. Added per DM w/ renal complications protocol #4 Seborrheic dermatitis 01/24/2002 10/12/2015 Solar lentigo 10/27/2001 04/30/2016 ACUTE HI; INFERIOR WALL;SUBSEQUENT EPISODE CARE 06/21/2013 HYPERTENSION NOS [...] mRNA, LNP-s, No Pre serve, 2-Dose Series (SessionM) 01/09/2021,06/08/2020,05/18/2020 COVID-19, LNP-s, No Preserve , Johann-sucrose, Ages 12+ (Pfizer) 06/18/2021 Covid-19, Mrna, Lnp-s, Pf, B ivalent Booster, 30 Mcg, IM, 12 yrs and above (SessionM) 12/17/2021 Pneumococcal Conjugate Vacc, 13 Valent (Prevnar) [...] Notes * Telephone Encounter - Aparnacarolina Helms, [facility] - 07/28/2022 12:19 PM EDT PCSK-9 Inhibitor [...] mg/dL Route referral message to CARDIOLOGY PHARMAC[facility] [place] [[id number]]. Please submit to BOTH primary insurance and secondary insurance (ex PACE/PACENET) if applicable. documented in this encounter Plan of Treatment Upcoming Encounters Date Type Specialty Care Team Description 08/12/2022 Office Visit Family Medicine Smith Orozco MD [address] [place] [address] [place] [address] 10/23/2022 Pharmacy Cardiology [facility] Cardiology [address] [place] [address] [place] [address] 11/12/2022 Office Visit Cardiology Alcon Lott PA-C [address] [place] [address] 12/17/2022 Office Visit Dermatology Kim Kong MD 200 [place] [address] Health Maintenance Due Date Last Done Comments [...] this encounter Medical Devices Implanted Type Area Human Resources Officer Device Identifier Shelf Expiration Date Model / Serial / Lot Band [employer] 225-241 - [id number] Implanted:Qty: 1 on 12/26/2010 [place] [facility] Chest [employer] 225-241 / / [id number] Lens Intraoc 17.5 - [id number] - [id number] Implanted:Qty: 1 on 02/07/2019 by Quincy Paiz MD at OR [facility] Right: Eye [employer]CH [employer] LOMB 08/14/2023 [id number] / [id number] / [id number] Lens Intraoc 17.0 - [id number] - [id number] Implanted:Qty: 1 on 03/01/2019 by Quincy Paiz MD at OR [facility] Left: Eye BAUSCH & LOMB 09/12/2022 [id number] / [id number] / [id number] documented as of this encounter Results * LIPID PANEL WITH DIRECT LDL IF TG IS HIGH (07/31/2022 7:58 AM EDT) Triglycerides 80 <=174 mg/dL 07/31/2022 3:09 PM EDT LABORATORY [facility] Comment: Triglyceride Reference Ranges (mg/dL): <150 Acceptable 150-174 Borderline high 175-499 High >=500 Very high Cholesterol 176 <200 mg/dL 07/31/2022 3:09 PM EDT LAB[facility]ATORY [facility] Comment: Total Cholesterol Reference Ranges (mg/dL): <200 Desirable 200-239 Borderline high >=240 High HDL Cholesterol 71 >39 mg/dL 3:09 PM EDT LABORATORY [facility] Comment: HDL Cholesterol Reference Ranges (mg/dL): >=60 High (Desirable) <50 Low (Undesirable) For Females <40 Low (Undesirable) For Males Non-HDL Cholesterol 105 <=159 mg/dL 07/31/2022 3:09 PM EDT LAB[facility]ATORY [facility] Comment: Non-HDL Cholesterol Reference Range (mg/dL): <100 Target level for high risk ASCVD patient <130 Optimal for general population 130-159 Near optimal for general population 160-189 Borderline High 190-219 High >=220 Very High LDL Cholesterol 89 <=129 mg/dL 07/31/2022 3:09 PM EDT LAB[facility]ATORY [facility] Comment: LDL Cholesterol Reference Ranges (mg/dL): <70 Target level for high risk ASCVD patient <100 Optimal for general population 100-129 Near optimal for general population 130-159 Borderline high 160-189 High >=190 Very high Blood Venous blood specimen / Unknown Venipuncture / Unknown 07/31/2022 7:58 AM EDT 07/31/2022 8:00 AM EDT Aparna Helms [facility] LAB BLOOD O RDERABLES LABORATORY [facility] [address] [place] [address] documented in this encounter Visit Diagnoses Diagnosis Dyslipidemia, goal LDL below 70- Primary Other and unspecified hyperlipidemia documented in this encounter Advance Directives Latest Code Status on File Code Status Date Activated Date Inactivated Comments Full Code 12/26/2010 11:49 AM 12/30/2010 3:24 PM Th is order reflects the patients wishes and were consensually agreed upon. Care Teams Graining Machine Operator Relationship Specialty Start Date End Date Smith Orozco MD [address] [place] [address] [place] [address] PCP - General Family Medicine 08/03/18 documented as of this encounter
--- OUTSIDE RECORDS SUMMARY | 2022-11-16 13:07 | External Medical Summary ---
Author Name Unknown Address Unknown Organization K01:LAB[facility]ATORY [facility] - [address] [place] [address] Laboratory Report Ordering Provider Test Date Status MIK ROTH 07/31/2022 07:58:01 Final Observation Date Value Abnormality Reference (Units ) Status Triglyceride 07/31/2022 07:58:01 80 <=174 ( mg/dL) Final Performing Location LABORATORY [facility] - [address] [place] [address]
--- OUTSIDE RECORDS SUMMARY | 2022-11-16 13:07 | External Medical Summary | Summary of Care ---
Author Name Unknown Organization [facility] Address [address] [facility] [address] Phone [phone] Care Team Providers Care Glass Cutter Name Role Phone Smith Orozco MD Primary Care Provider Encounter Details Date Type Department Care Team Description 07/28/2022 Telephone Cardiology [place] [facility] [address] [facility] [place] [phone] [facility] [place] [address] Allergies Active Allergy Reactions Severity Noted Date Comments Acetaminophen Renal complications 04/27/2009 Aspirin 08/13/2000 Stomach pain Cholestyramine 08/13/2000 Kidney pain Atorvastatin Calcium 04/28/2007 cramping Niacin Muscle pain 07/22/2007 Simvastatin Hives 08/13/2000 Ezetimibe 04/28/2007 Cramping ankles, turned feet inward documented as of this encounter (statuses as of 07/31/2022) Medications Medication Sig Dispensed Refills Start Date [...] PO TBECIndications:pm, thursday Take by mouth. Indications: pmond, thursday 0 Active MULTI-VITAMIN PO TABS one [...] goal LDL below 70,Statin intolerance,Atherosc lerosis of [place] coronary artery of [place] heart without angina pectoris,Old PR (myocardial infarction) INJECT UNDER THE SKIN 75 MG EVERY 14 DAYS . 6 mL 3 05/09/2022 Active amLODIPine Besylate 2.5 MG Oral Tablet (Norvasc)Indications :Essential hypertension with goal blood pressure less than 140/90,Old PR (myocardial infarction) Take 1 Tablet by mouth in the morning. 90 Tablet 3 05/13/2022 Active Valsartan 320 MG Oral Tablet (Diovan)Indications: Atherosclerosis of [place] coronary artery of [place] heart without angina pectoris,Primary hypertension Take 0.5 [...] as of this encounter (statuses as of 07/31/2022) Active Problems Problem Noted Date Carpal tunnel syndrome, bilateral 2020 Nonrheumatic aortic [...] to patient at prior appointment. Atherosclerosis of [place] co ronary artery of [place] heart without angina pectoris 11/30/2001 GENERAL OSTEOARTHROSIS Multiple pulmonary nodules Complex renal cyst Overview: 3.8 cm; L Old PR (myocardial infarction) documented as of this encounter (statuses as of 07/31/2022) Resolved Problems Problem Noted Date Resolved Date Genomics Cardio Research Other*[id number] 201004/22/2016 Overview: Study Titile: Genomics Markers for Patients with Cardiovascular Disease Project # [id number] PI: Amalia Kingsley MD Please call [phone] with study related questions HTN, goal below 130/80 04/15/2010 2 Overview: Per HTN Protocol #27. DM TYPE 2 CAUSING RENAL DZ 01/11/200902/01 Overview: Per Diabetes Taxonomy. Added per DM w/ renal complications protocol #4 DIAB RENAL MANIF ADULT 10/06/2007 9 Overview: Per Diabetes Taxonomy. Added per DM w/ renal complications protocol #4 Seborrheic dermatitis 01/24/2002 10/12/2015 Solar lentigo 10/27/2001 04/30/2016 ACUTE PR; INFERIOR WALL;SUBSEQUENT EPISODE CARE 06/21/2013 HYPERTENSION NOS [...] as of this encounter (statuses as of 07/31/2022) Immunizations Name Administration Dates Next Due COVID-19 mRNA, LNP-s, No Pre serve, 2-Dose Series (Dynasil) 01/09/2021,06/08/2020,05/18/2020 COVID-19, LNP-s, No Preserve , Johann-sucrose, Ages 12+ (Pfizer) 06/18/2021 Covid-19, Mrna, Lnp-s, Pf, B ivalent Booster, 30 Mcg, IM, 12 yrs and above (Dynasil) 12/17/2021 Pneumococcal Conjugate Vacc, 13 Valent (Prevnar) [...] Notes * Telephone Encounter - Aparna Helms, [facility] - 07/28/2022 12:19 PM EDT [...] mg/dL Route referral message to CARDIOLOGY PHARMACIST [place] [[id number]]. Please submit to BOTH primary insurance and secondary insurance (ex PACE/PACENET) if applicable. documented in this encounter Plan of Treatment Upcoming Encounters Date Type Specialty Care Team Description 08/12/2022 Office Visit Family Medicine Smith Orozco MD [address] [place] [address] [place] [address] 10/23/2022 Pharmacy Cardiology [facility] Cardiology [address] [facility] [place] [phone] 11/12/2022 Office Visit Cardiology Alcon Lott PA-C [address] [place] [address] 12/17/2022 Office Visit Dermatology Kim Kong MD [address] [facility] [address] Health Maintenance Due Date Last Done Comments [...] this encounter Medical Devices Implanted Type Area Technical Marketing Engineer Device Identifier Shelf Expiration Date Model / Serial / Lot Band [facility] 225-241 - [id number] Implanted:Qty: 1 on 12/26/2010 at [place] [facility] Chest [employer] 225-241 / / [id number] Lens Intraoc 17.5 - [id number] - [id number] Implanted:Qty: 1 on 02/07/2019 by Quincy Paiz MD at OR [facility] Right: Eye [employer]OM[employer] 08/14/2023 [id number] / [id number] / [id number] Lens Intraoc 17.0 - [id number] - [id number] Implanted:Qty: 1 on 03/01/2019 by Quincy Paiz MD at OR [facility] Left: Eye BAUSCH & LOMB 09/12/2022 [id number] / [id number] / [id number] documented as of this encounter Results * LIPID PANEL WITH DIRECT LDL IF TG IS HIGH (07/31/2022 7:58 AM EDT) Triglycerides 80 <=174 mg/dL 07/31/2022 3:09 PM EDT LABORATORY [facility] Comment: Triglyceride Reference Ranges (mg/dL): <150 Acceptable 150-174 Borderline high 175-499 High >=500 Very high Cholesterol 176 <200 mg/dL 07/31/2022 3:09 PM EDT LABORATORY [facility] Comment: Total Cholesterol Reference Ranges (mg/dL): <200 Desirable 200-239 Borderline high >=240 High HDL Cholesterol 71 >39 mg/dL 3:09 PM EDT LABORATORY [facility] Comment: HDL Cholesterol Reference Ranges (mg/dL): >=60 High (Desirable) <50 Low (Undesirable) For Females <40 Low (Undesirable) For Males Non-HDL Cholesterol 105 <=159 mg/dL 07/31/2022 3:09 PM EDT LABORATORY [facility] Comment: Non-HDL Cholesterol Reference Range (mg/dL): <100 Target level for high risk ASCVD patient <130 Optimal for general population 130-159 Near optimal for general population 160-189 Borderline High 190-219 High >=220 Very High LDL Cholesterol 89 <=129 mg/dL 07/31/2022 3:09 PM EDT LABORATORY [facility] Comment: LDL Cholesterol Reference Ranges (mg/dL): <70 Target level for high risk ASCVD patient <100 Optimal for general population 100-129 Near optimal for general population 130-159 Borderline high 160-189 High >=190 Very high Blood Venous blood specimen / Unknown Venipuncture / Unknown 07/31/2022 7:58 AM EDT 07/31/2022 8:00 AM EDT Aparna Helms [facility] LAB BLOOD O RDERABLES LABORATORY [facility] [address] [facility] [place] [address] documented in this encounter Visit Diagnoses Diagnosis Dyslipidemia, goal LDL below 70- Primary Other and unspecified hyperlipidemia documented in this encounter Advance Directives Latest Code Status on File Code Status Date Activated Date Inactivated Comments Full Code 12/26/2010 11:49 AM 12/30/2010 3:24 PM Th is order reflects the patients wishes and were consensually agreed upon. Care Teams Glass Cutter Relationship Specialty Start Date End Date Smith Orozco MD [address] [place] [address] [place] [address] PCP - General Family Medicine 08/03/18 documented as of this encounter
--- OUTSIDE RECORDS SUMMARY | 2022-11-16 13:07 | External Medical Summary | Summary of Care ---
Author Name Unknown Organization [facility] Address [address] [facility] [address] Phone [phone] Care Team Providers Care Gas Attendant Name Role Phone Smith Orozco MD Primary Care Provider Reason for Visit * Reason Onset Date Comments Precert In Process 07/28/2022 19 [place] SILVER SCRIPT PRALUENT Precert Approved 07/28/2022 PRALUENT Encounter Details Date Type Department Care Team Description 07/28/2022 Telephone Cardiology Pr[facility]ut Maguire [address] [facility] [place] [address] [facility] [place] [address] Precert In Process (19 [place] SIL[place]... Allergies Active Allergy Reactions Severity Noted Date Comments Acetaminophen Renal complications 04/27/2009 Aspirin 08/13/2000 Stomach pain Cholestyramine 08/13/2000 Kidney pain Atorvastatin Calcium 04/28/2007 cramping Niacin Muscle pain 07/22/2007 Simvastatin Hives 08/13/2000 Ezetimibe 04/28/2007 Cramping ankles, turned feet inward documented as of this encounter (statuses as of 08/06/2022) Medications Medication Sig Dispensed Refills Start Date [...] hemoglobin A1c goal of less than 8.0% ([facility]) USE ONE TEST STRIP TO TEST BLOOD SUGAR LEVELS TWICE A DAY 200 Strip 5 11/11/2019 Active OneTouch UltraSoft Lancets MISCIndications:Type 2 diabetes mellitus with hemoglobin A1c goal of less than 8.0% ([facility]) USE ONE LANCET TO TEST BLOOD SUGAR [...] hemoglobin A1c goal of less than 8.0% ([facility]),Type 2 diabetes mellitus with stage 2 chronic kidney disease, without long-term current use of insulin (HCC),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 ([facility]) Take 1 Tablet (25 mg) by mouth in the morning. 90 Tablet 1 02/10/2022 Active Isosorbide Mononitrate ER 60 MG Oral Tablet Extended Release 24 Hour (Imdur) TAKE 1 TABLET BY MOUTH EVERY DAY IN THE MORNING 90 Tablet 3 04/23/2022 Active Praluent 75 MG/ML Subcutaneous Solution Auto-injector (Alirocumab)Indicati ons:Dyslipidemia, goal LDL below 70,Statin intolerance,Atherosc lerosis of nav[place] coronary artery of navajo heart without angina pectoris,Old [place] (myocardial infarction) INJECT UNDER THE SKIN 75 MG EVERY 14 DAYS . 6 mL 3 05/09/2022 Active amLODIPine Besylate 2.5 MG Oral Tablet (Norvasc)Indications :Essential hypertension with goal blood pressure less than 140/90,Old [place] (myocardial infarction) Take 1 Tablet by mouth in the morning. 90 Tablet 3 05/13/2022 Active Valsartan 320 MG Oral Tablet (Diovan)Indications: Atherosclerosis of nav[place] coronary artery of navajo heart without angina pectoris,Primary hypertension Take 0.5 Tablets by mouth in the morning and 0.5 Tablets before bedtime. 90 Tablet 1 05/12/2022 Active Tretinoin 0.05 % External Cream (Retin-A)Indications :Actinic keratosis APPLY NIGHTLY TO FACE DIRECTED,CAN MIX WITH PONDS 45 g 5 07/10/2022 Active metFORMIN HCl 1000 MG Oral Tablet (Glucophage)Indicati ons:Type 2 diabetes mellitus with diabetic nephropathy ([facility]),Type 2 diabetes mellitus with hemoglobin A1c goal of less than 8.0% ([facility]) TAKE 1 TABLET BY MOUTH TWICE A DAY WITH BREAKFAST AND DINNER 180 Tablet 1 07/20/2022 Active Omeprazole 20 MG Oral Capsule Delayed Release (PriLOSEC)Indication s:Peptic ulcer TAKE 1 CAPSULE BY MOUTH EVERY DAY IN THE MORNING 90 Capsule 1 07/20/2022 Active documented as of this encounter (statuses as of 08/06/2022) Active Problems Problem Noted Date CKD (chronic [...] to patient at prior appointment. Atherosclerosis of [place] co ronary artery of [place] heart without angina pectoris 11/30/2001 GENERAL OSTEOARTHROSIS Multiple pulmonary nodules Complex renal cyst Overview: 3.8 cm; L Old [place] (myocardial infarction) documented as of this encounter (statuses as of 08/06/2022) Resolved Problems Problem Noted Date Resolved Date Gen[employer] Cardio Research Other*[id number] 201004/22/2016 Overview: Study Titile: Genomics Markers for Patients with Cardiovascular Disease Project # [id number] PI: Amalia Kingsley MD Please call [phone] with study related questions HTN, goal below 130/80 04/15/2010 2 Overview: Per HTN Protocol #27. DM TYPE 2 CAUSING RENAL DZ 01/11/200902/01 Overview: Per Diabetes Taxonomy. Added per DM w/ renal complications protocol #4 DIAB RENAL MANIF ADULT 10/06/2007 Overview: Per Diabetes Taxonomy. Added per DM w/ renal complications protocol #4 Seborrheic dermatitis 01/24/2002 10/12/2015 Solar lentigo 10/27/2001 04/30/2016 ACUTE [place]; INFERIOR WALL;SUBSEQUENT EPISODE CARE 06/21/2013 HYPERTENSION NOS [...] as of this encounter (statuses as of 08/06/2022) Immunizations Name Administration Dates Next Due COVID-19 mRNA, LNP-s, No Pre serve, 2-Dose Series (SnapOne) 01/09/2021,06/08/2020,05/18/2020 COVID-19, LNP-s, No Preserve , Johann-sucrose, Ages 12+ (Pfizer) 06/18/2021 Covid-19, Mrna, Lnp-s, Pf, B ivalent Booster, 30 Mcg, IM, 12 yrs and above (SnapOne) 12/17/2021 Pneumococcal Conjugate Vacc, 13 Valent (Prevnar) [...] Miscellaneous Notes * Telephone Encounter - Aparna Helms RPh - 08/06/2022 4:39 PM EDT New or re-auth: Re-authorization Approved/Denied: Approved Drug Name and Formulation: PRALUENT 75 MG ML How Prescribed(directions/sig): 75 mg every 2 weeks Day Supply: 2 PER Did you receive insurance information from outside the chart? No, received insurance information within the chart Valid auth start date: 03/16/2022 Valid auth end date: 08/01/2023 Rx Insurance Info: SILVER SCRIPT Rx Benefits Verified through/on date: [employer] 08/01/2022 Referral (TE) received from: [facility] Rx active for Praluent at [facility] * Telephone Encounter - Aparna Helms RPh - 07/28/2022 12:19 PM EDT PCSK-9 Inhibitor [...] mg/dL Route referral message to CARDIOLOGY PHARMACIST PROSPECT [[id number]]. Please submit to BOTH primary insurance and secondary insurance (ex PACE/PACENET) if applicable. documented in this encounter Plan of Treatment Upcoming Encounters Date Type Specialty Care Team Description 08/12/2022 Office Visit Family Medicine Smith Orozco MD [address] [place] [address] [place] [address] 10/23/2022 Pharmacy Cardiology [facility] [address] [place] [address] [place] [phone] 11/12/2022 Office Visit Cardiology Alcon Lott PA-Adelfo [address] [place] [address] 12/17/2022 Office Visit Dermatology Kim Kong MD [address] [facility] [place] [address] Health Maintenance Due Date Last Done Comments [...] this encounter Medical Devices Implanted Type Area Jukebox Operator Device Identifier Shelf Expiration Date Model / Serial / Lot Band Ankur 225-241 - [id number] [facility] / / [id number] Lens Intraoc 17.5 - [id number] - [id number] Implanted:Qty: 1 on 02/07/2019 by Quincy Paiz MD at OR [facility] Right: Eye [employer]OMB 08/14/2023 [id number] / [id number] / [id number] Lens Intraoc 17.0 - [id number] - [id number] Implanted:Qty: 1 on 03/01/2019 by Quincy Paiz MD at OR [facility] Left: Eye BAUSCH & LOMB 09/12/2022 [id number] / [id number] / [id number] documented as of this encounter Results * LIPID PANEL WITH DIRECT LDL IF TG IS HIGH (07/31/2022 7:58 AM EDT) Triglycerides 80 <=174 mg/dL 07/31/2022 3:09 PM EDT LAB[facility]ATORY [facility] [place] Comment: Triglyceride Reference Ranges (mg/dL): <150 Acceptable 150-174 Borderline high 175-499 High >=500 Very high Cholesterol 176 <200 mg/dL 07/31/2022 3:09 PM EDT LAB[facility]ATORY [facility] [place] Comment: Total Cholesterol Reference Ranges (mg/dL): <200 Desirable 200-239 Borderline high >=240 High HDL Cholesterol 71 >39 mg/dL 3:09 PM EDT LAB[facility]ATORY [facility] [place] Comment: HDL Cholesterol Reference Ranges (mg/dL): >=60 High (Desirable) <50 Low (Undesirable) For Females <40 Low (Undesirable) For Males Non-HDL Cholesterol 105 <=159 mg/dL 07/31/2022 3:09 PM EDT LAB[facility]ATORY [facility] [place] Comment: Non-HDL Cholesterol Reference Range (mg/dL): <100 Target level for high risk ASCVD patient <130 Optimal for general population 130-159 Near optimal for general population 160-189 Borderline High 190-219 High >=220 Very High LDL Cholesterol 89 <=129 mg/dL 07/31/2022 3:09 PM EDT LABORATORY [facility] Comment: LDL Cholesterol Reference Ranges (mg/dL): <70 Target level for high risk ASCVD patient <100 Optimal for general population 100-129 Near optimal for general population 130-159 Borderline high 160-189 High >=190 Very high Blood Venous blood specimen / Unknown Venipuncture / Unknown 07/31/2022 7:58 AM EDT 07/31/2022 8:00 AM EDT Aparna Helms [facility]OD [facility] [address] [place] [address] documented in this encounter Visit Diagnoses Diagnosis Dyslipidemia, goal LDL below 70- Primary Other and unspecified hyperlipidemia documented in this encounter Advance Directives Latest Code Status on File Code Status Date Activated Date Inactivated Comments Full Code 12/26/2010 11:49 AM 12/30/2010 3:24 PM Th is order reflects the patients wishes and were consensually agreed upon. Care Teams Gas Attendant Relationship Specialty Start Date End Date Smith Orozco MD [address] [place] [address] [place] [phone] PCP - General Family Medicine 08/03/18 documented as of this encounter
--- OUTSIDE RECORDS SUMMARY | 2022-11-16 13:07 | External Medical Summary ---
Author Name Unknown Address Unknown Organization [id number]:LABORATORY [facility] [place] - [address] [place] [address] Laboratory Report Ordering Provider Test Date Status VITOR BRANDT 07/31/2022 07:58:01 Final Observation Date Value Abnormality Reference (Units ) Status BUN 07/31/2022 07:58:01 29 Above high normal 6-20 (mg/dL) Final Creatinine 07/31/2022 07:58:01 1.3 Above high normal 0.6-1.2 (mg/dL) Final Glomerular filtration rate/1.73 sq M.predicted [Volume Rate/Area] in Serum, Plasma or Blood by Creatinine-based formula (CKD-EPI) 07/31/2022 07:58:01 53 Below low normal >=60 (mL/min) Final Performing Location LABORATORY [facility] [place] - [address] [place] [address]
--- OUTSIDE RECORDS SUMMARY | 2022-11-16 13:07 | External Medical Summary | Summary of Care ---
Author Name Unknown Organization [facility] Address [address] [facility] [address] Phone [phone] Care Team Providers Care Electric Range Servicer Name Role Phone Smith Orozco MD Primary Care Provider Reason for Visit * Reason Onset Date Comments Health Maintenance 07/21/2022 Encounter Details Date Type Department Care Team Description 07/21/2022 Telephone Family Medicine [address] [phone] Smith Orozco MD [address] [place] [address] [place] [address] Health Maintenance Allergies Active Allergy Reactions Severity Noted Date Comments Acetaminophen Renal complications 04/27/2009 Aspirin 08/13/2000 Stomach pain Cholestyramine 08/13/2000 Kidney pain Atorvastatin Calcium 04/28/2007 cramping Niacin Muscle pain 07/22/2007 Simvastatin Hives 08/13/2000 Ezetimibe 04/28/2007 Cramping ankles, turned feet inward documented as of this encounter (statuses as of 07/21/2022) Medications Medication Sig Dispensed Refills Start Date [...] hemoglobin A1c goal of less than 8.0% ([facility]) USE ONE TEST STRIP TO TEST BLOOD SUGAR LEVELS TWICE A DAY 200 Strip 5 11/11/2019 Active OneTouch UltraSoft Lancets MISCIndications:Type 2 diabetes mellitus with hemoglobin A1c goal of less than 8.0% ([facility]) USE ONE LANCET TO TEST [...] hemoglobin A1c goal of less than 8.0% ([facility]),Type 2 diabetes mellitus with stage [...] goal LDL below 70,Statin intolerance,Atherosc lerosis of caht[place] coronary artery of [place] heart without angina pectoris,Old [place] (myocardial infarction) INJECT UNDER THE SKIN 75 MG EVERY 14 DAYS . 6 mL 3 05/09/2022 Active amLODIPine Besylate 2.5 MG Oral Tablet (Norvasc)Indications :Essential hypertension with goal blood pressure less than 140/90,Old [place] (myocardial infarction) Take 1 Tablet by mouth in the morning. 90 Tablet 3 05/13/2022 Active Valsartan 320 MG Oral Tablet (Diovan)Indications: Atherosclerosis of [place] coronary artery of [place] heart without angina pectoris,Primary hypertension Take 0.5 [...] as of this encounter (statuses as of 07/21/2022) Active Problems Problem Noted Date Carpal tunnel [...] to patient at prior appointment. Atherosclerosis of [place] co ronary artery of caht[place] heart without angina pectoris 11/30/2001 GENERAL OSTEOARTHROSIS Multiple pulmonary nodules Complex renal cyst Overview: 3.8 cm; L Old [place] (myocardial infarction) documented as of this encounter (statuses as of 07/21/2022) Resolved Problems Problem Noted Date Resolved Date Genomics Cardio Research Other*[id number] 201004/22/2016 Overview: Study Titile: Genomics Markers for Patients with Cardiovascular Disease Project # [id number] PI: Amalia Kingsley MD Please call [phone] with study related questions HTN, goal below [...] as of this encounter (statuses as of 07/21/2022) Immunizations Name Administration Dates Next Due COVID-19 mRNA, LNP-s, No Pre serve, 2-Dose Series (OnRequest Images) 01/09/2021,06/08/2020,05/18/2020 COVID-19, LNP-s, No Preserve , Johann-sucrose, Ages 12+ (Pfizer) 06/18/2021 Covid-19, Mrna, Lnp-s, Pf, B ivalent Booster, 30 Mcg, IM, 12 yrs and above (OnRequest Images) 12/17/2021 Pneumococcal Conjugate Vacc, 13 Valent (Prevnar) [...] encounter Miscellaneous Notes * Telephone Encounter - Rafia Cook LPN - 07/21/2022 10:10 AM EDT Care Gaps Comprehensive Care Outreach Last Office/Telemedicine Visit: 02/10/2022 (in office), Visit date not found (telemedicine) Next Office Visit: 08/12/2022 Hemoglobin AIC Results: Lab Results Component Value Date/Time HEMOGLOBIN A1C 5.7 05/16/1996 10:22 AM HEMOGLOBIN A1C 8.7 (H) 02/02/1996 09:10 AM HEMOGLOBIN A1C - [facility] 6.5 (H) 02/25/2021 09:44 AM HEMOGLOBIN A1C - [facility] 7.6 (H) 06/28/2020 11:20 AM HEMOGLOBIN A1C - [facility] 7.5 (H) 03/01/2020 02:51 PM HEMOGLOBIN A1C - [facility] 7.3 (H) 08/30/2019 08:34 AM HEMOGLOBIN A1C - [facility] 7.3 (H) 03/31/2019 08:26 AM Reviewed Health Maintenance below: Health Maintenance Topic Date Due Depression Screening, Annual for Pts 12 and Over 08/29/2020 Yearly B-12 07/12/2021 DIABETES-EYE EXAM 03/28/2022 Albumin/Creatinine Ratio 05/20/2022 HgA1C 06/01/2022 DIABETES-FOOT EXAM 08/06/2022 DTaP,Tdap,and Td Vaccines (2 - Td or Tdap) 08/05/2022 GFR - Renal Function 12/02/2022 Labs/urine eyefoot Care Gap Outreach Action Taken: Left message documented in this encounter Plan of Treatment Upcoming Encounters Date Type Specialty Care Team Description 07/21/2022 Office Visit Dermatology Kim Kong MD [address] [place] [address] 08/12/2022 Office Visit Family Medicine Smith Orozco MD [address] [place] [address] [place] [address] 10/17/2022 Office Visit Cardiology Cecille Eldridge CRNP [address] [place] [address] 12/17/2022 Office Visit Dermatology Kim Kong MD [address] [place] [address] Health Maintenance Due Date Last Done Comments Depression Screening, Annual for Pts 12 and Over 08/29/2020 08/30/2019 Yearly B-12 07/12/2021 07/12/2020, 08/14, 08/19/2018, Additional history exists DIABETES-EYE EXAM 03/28/2022 03/28/2021, , 11/09/2018, Additional history exists Albumin/Creatinine Ratio 05/20/202205/20/2 022, 02/25/2021, 03/01/2020, Additional history exists HgA1C 06/01/2022 12/02/2021, 03/0 09/2021, 02/25/2021, Additional history exists DTaP,Tdap,and Td Vaccines (2 - Td or Tdap) 08/05/2022 08/05/2012, 03/16/2003 DIABETES-FOOT EXAM 08/06/2022 08/06/2021, 1 05/02/2019, 01/24/2019, Additional history exists GFR - Renal Function 12/02/2022 12/02/2021, 02/25/2021, 07/12/2020, Additional history exists Pneumococcal Vaccine: 65+ Years [...] this encounter Medical Devices Implanted Type Area Product Marketing Engineer Device Identifier Shelf Expiration Date Model / Serial / Lot Band Ankur 225-241 - [id number] Implanted:Qty: 1 on 12/26/2010 [place] [facility] [place] [employer] 225-241 / / [id number] Lens Intraoc 17.5 - [id number] - [id number] Implanted:Qty: 1 on 02/07/2019 by Quincy Paiz MD at OR [facility] Right: Eye BAUSCH [employer] LOMB 08/14/2023 [id number] / [id number] / [id number] Lens Intraoc 17.0 - [id number] - [id number] Implanted:Qty: 1 on 03/01/2019 by Quincy Paiz MD at OR [facility] Left: Eye BAUSCH & LOMB 09/12/2022 [id number] / [id number] / [id number] documented as of this encounter Advance Directives Latest Code Status on File Code Status Date Activated Date Inactivated Comments Full Code 12/26/2010 11:49 AM 12/30/2010 3:24 PM Th is order reflects the patients wishes and were consensually agreed upon. Care Teams Electric Range Servicer Relationship Specialty Start Date End Date Smith Orozco MD [address] [place] [address] [place] [address] PCP - General Family Medicine 08/03/18 documented as of this encounter
--- OUTSIDE RECORDS SUMMARY | 2022-11-16 13:07 | External Medical Summary ---
Author Name Unknown Address Unknown Organization K01:[facility]ATORY [facility] [place] [address] [place] [address] Laboratory Report Ordering Provider Test Date Status LOLIS BRADFORD 07/31/2022 07:58:01 Final Observation Date Value Abnormality Reference (Units ) Status Vitamin B12 07/31/2022 07:58:01 1491 Above high normal 232-1245 (pg/mL) Final Performing Location LABORATORY [facility] - [address] [place] [address]
--- OUTSIDE RECORDS SUMMARY | 2022-11-16 13:07 | External Medical Summary | Summary of Care ---
Author Name Unknown Organization [facility] Address [address] [facility] [place] [address] Phone [phone] Care Team Providers Care Appliances Sample Maker Name Role Phone Smith Orozco MD Primary Care Provider Reason for Visit * Reason Comments Outpatient Testing Encounter Details Date Type Department Care Team Description 07/31/2022 Laboratory Laboratory [address] [place] [phone] [place] [address] Encounter for long-term (current) use of other medications; 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); Type 2 diabetes mellitus with stage 2 chronic kidney disease, without long-term current use of insulin (HCC); Dyslipidemia, goal LDL below 70 Allergies Active [...] hemoglobin A1c goal of less than 8.0% ([facility]) USE ONE TEST STRIP TO TEST BLOOD SUGAR LEVELS TWICE A DAY 200 Strip 5 11/11/2019 Active OneTouch UltraSoft Lancets MISCIndications:Type 2 diabetes mellitus with hemoglobin A1c goal of less than 8.0% ([facility]) USE ONE LANCET TO TEST [...] hemoglobin A1c goal of less than 8.0% ([facility]),Type 2 diabetes mellitus with stage [...] goal LDL below 70,Statin intolerance,Atherosc lerosis of [place] coronary artery of [place] heart without angina pectoris,Old [place] (myocardial infarction) INJECT UNDER THE SKIN 75 MG EVERY 14 DAYS . 6 mL 3 05/09/2022 Active amLODIPine Besylate 2.5 MG Oral Tablet (Norvasc)Indications :Essential hypertension with goal blood pressure less than 140/90,Old [place] (myocardial infarction) Take 1 Tablet by mouth in the morning. 90 Tablet 3 05/13/2022 Active Valsartan 320 MG Oral Tablet (Diovan)Indications: Atherosclerosis of [place] coronary artery of [place] heart without angina pectoris,Primary hypertension Take 0.5 [...] hemoglobin A1c goal of less than 8.0% ([facility]) TAKE 1 TABLET BY MOUTH TWICE A [...] to patient at prior appointment. Atherosclerosis of [place] co ronary artery of [place] heart without angina pectoris 11/30/2001 GENERAL OSTEOARTHROSIS Multiple pulmonary nodules Complex renal cyst Overview: 3.8 cm; L Old [place] (myocardial infarction) documented as of this encounter (statuses as of 07/31/2022) Resolved Problems Problem Noted Date Resolved Date Genomics Cardio Research Other*[id number] 201004/22/2016 Overview: Study Titile: Genomics Markers for Patients with Cardiovascular Disease Project # [id number] PI: Amalia Kingsley MD Please call [phone] with study related questions HTN, goal below 130/80 04/15/2010 2 Overview: Per HTN Protocol #27. DM TYPE 2 CAUSING RENAL DZ 01/11/200902/01 Overview: Per Diabetes Taxonomy. Added per DM w/ renal complications protocol #4 DIAB RENAL MANIF ADULT 10/06/2007 9 Overview: Per Diabetes Taxonomy. Added per DM w/ renal complications protocol #4 Seborrheic dermatitis 01/24/2002 10/12/2015 Solar lentigo 10/27/2001 04/30/2016 ACUTE [place]; INFERIOR WALL;SUBSEQUENT EPISODE CARE 06/21/2013 HYPERTENSION NOS [...] mRNA, LNP-s, No Pre serve, 2-Dose Series ([employer] [facility]) 01/09/2021,06/08/2020,05/18/2020 COVID-19, LNP-s, No Preserve , Johann-sucrose, Ages 12+ (Pfizer) 06/18/2021 Covid-19, Mrna, Lnp-s, Pf, B ivalent Booster, 30 Mcg, IM, 12 yrs and above (Modern Message) 12/17/2021 Pneumococcal Conjugate Vacc, 13 Valent (Prevnar) [...] Office Visit Family Medicine Smith Orozco MD [address] [place] [address] [place] [address] 11/12/2022 Office Visit Cardiology Alcon Lott PA-C [address] [place] [address] 12/17/2022 Office Visit [facility] [address] Pending Results Name Type Priority Associated Diagnoses Date /Time VITAMIN B12 Lab Routine Encounter for long-term (current) use of other medications 07/31/2022 7:58 AM EDT HEMOGLOBIN A1C Lab Routine 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) Type 2 diabetes mellitus with stage 2 chronic kidney disease, without long-term current use of insulin (HCC) 07/31/2022 7:58 AM EDT LIPID PANEL WITH DIRECT LDL IF TG IS HIGH Lab Routine Dyslipidemia, goal LDL below 70 07/31/2022 7:58 AM EDT Health Maintenance Due Date Last Done Comments Depression Screening, Annual for Pts 12 and Over 08/29/2020 08/30/2019 Yearly B-12 07/12/2021 07/12/2020, 08/14, 08/19/2018, Additional history exists DIABETES-EYE EXAM 03/28/2022 03/28/2021, , 11/09/2018, Additional history exists Albumin/Creatinine Ratio 05/20/2022 03/ 022, 02/25/2021, 03/01/2020, Additional history exists HgA1C 06/01/2022 12/02/2021, 09/2021, 02/25/2021, Additional history exists DTaP,Tdap,and Td [...] this encounter Medical Devices Implanted Type Area Elevators Inspector Device Identifier Shelf Expiration Date Model / Serial / Lot Alonso Pascual 225-241 - [id number] Implanted:Qty: 1 on 12/26/2010 at [place] [facility] [place] Chest [employer] 225-113 / / [id number] Lens Intraoc 17.5 - [id number] - [id number] Implanted:Qty: 1 on 02/07/2019 by Quincy Paiz MD at [facility] Right: Eye [employer]OMB 08/14/2023 [id number] / [id number] / [id number] Lens Intraoc 17.0 - [id number] - [id number] Implanted:Qty: 1 on 03/01/2019 by Quincy Paiz MD at OR [facility] Left: Eye BAUSCH & LOMB 09/12/2022 [id number] / [id number] / [id number] documented as of this encounter Visit Diagnoses Diagnosis Encounter for long-term (current) use of other medications 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) Type 2 diabetes mellitus with stage 2 chronic kidney disease, without long-term current use of insulin (HCC) Dyslipidemia, goal LDL below 70 Other and unspecified hyperlipidemia documented in this encounter Advance Directives Latest Code Status on File Code Status Date Activated Date Inactivated Comments Full Code 12/26/2010 11:49 AM 12/30/2010 3:24 PM Th is order reflects the patients wishes and were consensually agreed upon. Care Teams Appliances Sample Maker Relationship Specialty Start Date End Date Smith Orozco MD [address] [place] [address] [place] [address] PCP - General Family Medicine 08/03/18 documented as of this encounter
--- OUTSIDE RECORDS SUMMARY | 2022-11-16 13:07 | External Medical Summary | Summary of Care ---
Author Name Unknown Organization [facility] Address [address] [facility] [place] [address] Phone [phone] Care Team Providers Care Silver Spray Worker Name Role Phone Smith Orozco MD Primary Care Provider Reason for Visit * Reason Comments Follow Up Here for lesion on l ip x years. Encounter Details Date Type Department Care Team Description 07/21/2022 [address] [facility] [place] Miller [address] [facility] [address] [facility] [place] [address] Kim Kong MD [address] [facility] [address] Lesion of lip* Allergies Active Allergy Reactions Severity Noted Date [...] hemoglobin A1c goal of less than 8.0% ([facility]) USE ONE TEST STRIP TO TEST BLOOD SUGAR LEVELS TWICE A DAY 200 Strip 5 11/11/2019 Active OneTouch UltraSoft Lancets MISCIndications:Type 2 diabetes mellitus with hemoglobin A1c goal of less than 8.0% ([facility]) USE ONE LANCET TO TEST [...] hemoglobin A1c goal of less than 8.0% ([facility]),Type 2 diabetes mellitus with stage [...] LDL below 70,Statin intolerance,Atherosc lerosis of [place] coronary artery of [place] heart without angina pectoris,Old ME (myocardial infarction) INJECT UNDER THE SKIN 75 MG EVERY 14 DAYS . 6 mL 3 05/09/2022 Active amLODIPine Besylate 2.5 MG Oral Tablet (Norvasc)Indications :Essential hypertension with goal blood pressure less than 140/90,Old ME (myocardial infarction) Take 1 Tablet by mouth in the morning. 90 Tablet 3 05/13/2022 Active Valsartan 320 MG Oral Tablet (Diovan)Indications: Atherosclerosis of [place] coronary artery of [place] heart without angina pectoris,Primary hypertension Take 0.5 [...] patient at prior appointment. Atherosclerosis of [place] co ronary artery of [place] heart without angina pectoris 11/30/2001 GENERAL OSTEOARTHROSIS Multiple pulmonary nodules Complex renal cyst Overview: 3.8 cm; L Old ME (myocardial infarction) documented as of this encounter (statuses as of 07/21/2022) Resolved Problems Problem Noted Date Resolved Date Genomics Cardio Research Other*[id number] 201004/22/2016 Overview: Study Titile: Genomics Markers for Patients with Cardiovascular Disease Project # [id number] PI: Amalia Kingsley MD Please call [phone] with study related questions HTN, goal below 130/80 04/15/2010 2 Overview: Per HTN Protocol #27. DM TYPE 2 CAUSING RENAL DZ 01/11/200902/01 Overview: Per Diabetes Taxonomy. Added per DM w/ renal complications protocol #4 DIAB RENAL MANIF ADULT 10/06/2007 9 Overview: Per Diabetes Taxonomy. Added per DM w/ renal complications protocol #4 Seborrheic dermatitis 01/24/2002 10/12/2015 Solar lentigo 10/27/2001 04/30/2016 ACUTE ME; INFERIOR WALL;SUBSEQUENT EPISODE CARE 06/21/2013 HYPERTENSION NOS [...] mRNA, LNP-s, No Pre serve, 2-Dose Series ([employer]) 01/09/2021,06/08/2020,05/18/2020 COVID-19, LNP-s, No Preserve , Johann-sucrose, Ages 12+ (Pfizer) 06/18/2021 Covid-19, Mrna, Lnp-s, Pf, B ivalent Booster, 30 Mcg, IM, 12 yrs and above ([employer]) 12/17/2021 Pneumococcal Conjugate Vacc, 13 Valent (Prevnar) [...] as of this encounter Progress Notes * Kim Kong MD - 07/21/2022 2:36 PM EDT SUBJECTIVE: History of Present Illness: Cl Reynolds is a 81 year old male seen today for follow up of lesion lip. Date Last Appointment: 06/02/2022 (in office), Visit date not found (telemedicine) Pt has noticed it for years, but still gets swollen and irritated intermittently, pt is concerned. Skin check already scheduled REVIEW OF SYSTEMS: SKIN: No other new or changing moles. HEME/LYMPH: No new or enlarging lumps or bumps. MEDICA TIONS: Current Outpatient Medications Medication Sig Dispense Refill GAVI 180 MG PO TABS One pill by mouth once a day for allergies (Patient taking differently: Take by mouth .) 30 5 MAGNESIUM OXIDE 200 MG PO TABS one tablet twice a day 60 Tab 5 SB LOW DOSE ASA EC 81 MG PO TBEC Take by mouth. Indications: pmond, thursday (Patientnot taking: Reported on 02/18/2022) MULTI-VITAMIN PO TABS one pill each day [...] 500 MCG Oral Tablet Take by mouth. Finasteride 5 MG Oral Tablet (Proscar) Take 1 Tablet (5 mg) by mouth in the morning. 90 Tablet 1 Jardiance 25 MG Oral Tablet Take 1 [...] DAY IN THE MORNING 90 Capsule 1 No current facility-administered medications for this visit. ALLERG IES: Acetaminophen, Aspirin, Cholestyramine, Lipitor [atorvastatin calcium], Niacin, Simvastatin, and Zetia [ezetimibe] OBJECTIVE: GEN: Healthy, alert, no distress, appears oriented, pleasant and cooperative. SKIN: Detailed exam of hair, face including lids and lips, oral cavity and neck completed and are normal except: 1. Lower lip mucosal - linear hypertrophic tissue with some SQ swelling, pt has also sent photos ASSESS MENT/PLAN: 1. Lip swelling and irritation, unclear if version of mucocele or other SQ growth vs. Chronic scarring like morciatio Also had Dr. Quach in Mohs surgery examine pt, and we both advise oral surgery visit for possible biopsy. Follow-up: as above There were no barriers tolearning and no other pain was related to today's visit. The patient and/or person accompanying patient demonstrates understanding of the visit and treatment. Kim Kong MD 07/21/2022 2:36 PM documented in this encounter Nursing Notes * Elda Bennett LPN - 07/21/2022 10:51 AM EDT Patient identified by name and date of . Do you have any concerns about pain management for today's visit? No Living Will or Advance Directive for Health Care as noted on problem list. [facility] is a way you can talk to your provider online through e-mail. Would you like to sign up? I can activate it for you? ALREADY ACTIVE Chief Complaint Patient presents with Follow Up Here for lesion on lip x years. documented in this encounter Plan of Treatment Upcoming Encounters Date Type Specialty Care Team Description 08/12/2022 Office Visit Family Medicine Smith Orozco MD [address] [place] [address] [place] [phone] 10/17/2022 Office Visit Cardiology Cecille Eldridge CRNP [address] [place] [phone] 12/17/2022 Office Visit Dermatology Kim Kong MD [address] [place] [address] [place] [address] Health Maintenance Due Date Last Done Comments Depression Screening, Annual for Pts 12 and Over 08/29/2020 08/30/2019 Yearly B-12 07/12/2021 07/12/2020, 08/14, 08/19/2018, Additional history exists DIABETES-EYE EXAM 03/28/2022 03/28/2021, , 11/09/2018, Additional history exists Albumin/Creatinine Ratio 05/20/2022 022, 02/25/2021, 03/01/2020, Additional history exists HgA1C [...] this encounter Medical Devices Implanted Type Area Supervisor Speech Device Identifier Shelf Expiration Date Model / Serial / Lot Band Ankur 225-241 - [id number] Implanted:Qty: 1 on 12/26/2010 at OR [facility] Chest [employer] 225-241 / / [id number] Lens Intraoc 17.5 - [id number] - [id number] Implanted:Qty: 1 on 02/07/2019 by Quincy Paiz MD at OR [facility] Right: Eye [employer] 08/14/2023 [id number] / [id number] / [id number] Lens Intraoc 17.0 - [id number] - [id number] Implanted:Qty: 1 on 03/01/2019 by Quincy Paiz MD at [facility] Left: Eye [employer]OM[employer] 09/12/2022 [id number] / [id number] / [id number] documented as of this encounter Visit Diagnoses Diagnosis Lesion of lip- Primary Diseases of lips documented in this encounter Advance Directives Latest Code Status on File Code Status Date Activated Date Inactivated Comments Full Code 12/26/2010 11:49 AM 12/30/2010 3:24 PM Th is order reflects the patients wishes and were consensually agreed upon. Care Teams Silver Spray Worker Relationship Specialty Start Date End Date Smith Orozco MD [address] [place] [address] [place] [address] PCP - General Family Medicine 08/03/18 documented as of this encounter
--- OUTSIDE RECORDS SUMMARY | 2022-11-16 13:07 | External Medical Summary | Summary of Care ---
Author Name Unknown Organization [facility] Address [address] [facility] [address] Phone [phone] Care Team Providers Care Balance Wheel Facer Name Role Phone Smith Orozco MD Primary Care Provider [phone] Reason for Visit * Reason Onset Date Comments Precert In Process 07/28/2022 19 [place] SILVER SCRIPT PRALUENT Encounter Details Date Type Department Care Team Description 07/28/2022 Telephone Cardiology [place] [facility] [address] [facility] [place] [address] [facility] [address] [facility] [place] [phone] Precert In Process (19 [place] SILVER SCRIPT MT... 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 6 mL 3 05/09/2022 Active amLODIPine Besylate 2.5 MG Oral Tablet (Norvasc)Indications :Essential hypertension with goal blood pressure less than 140/90,Old ME (myocardial infarction) Take 1 Tablet by mouth in the morning. 90 Tablet 3 05/13/2022 Active Valsartan 320 MG Oral Tablet (Diovan)Indications: Atherosclerosis of [place] coronary artery of [place] heart without angina pectoris,Primary hypertension Take 0.5 [...] A1c goal of less than 8.0% ([facility]) TAKE 1 TABLET BY MOUTH [...] to patient at prior appointment. Atherosclerosis of [place] co ronary artery of [place] heart without angina pectoris 11/30/2001 GENERAL OSTEOARTHROSIS Multiple pulmonary nodules Complex renal cyst Overview: 3.8 cm; L Old ME (myocardial infarction) documented as of this encounter (statuses as of 08/01/2022) Resolved Problems Problem Noted Date Resolved Date Genomics Cardio Research Other*[id number] 201004/22/2016 Overview: Study Titile: Genomics Markers for Patients with Cardiovascular Disease Project # [id number] PI: Amalia Kingsley MD Please call [phone] with study related questions HTN, goal below [...] mRNA, LNP-s, No Pre serve, 2-Dose Series ([employer]ist) 01/09/2021,06/08/2020,05/18/2020 COVID-19, LNP-s, No Preserve , Johann-sucrose, Ages 12+ (Pfizer) 06/18/2021 Covid-19, Mrna, Lnp-s, Pf, B ivalent Booster, 30 Mcg, IM, 12 yrs and above (makerist) 12/17/2021 Pneumococcal Conjugate Vacc, 13 Valent (Prevnar) [...] Notes * Telephone Encounter - Aparnacarolina Helms, [facility] - 07/28/2022 12:19 PM EDT PCSK-9 Inhibitor [...] mg/dL Route referral message to CARDIOLOGY PHARMACIST [place] [[id number]]. Please submit to BOTH primary insurance and secondary insurance (ex PACE/PACENET) if applicable. documented in this encounter Plan of Treatment Upcoming Encounters Date Type Specialty Care Team Description 08/12/2022 Office Visit Family Medicine Smith Orozco MD [address] [place] [address] [place] [address] 10/23/2022 Pharmacy Cardiology [facility] Card[facility] [address] [place] [address] [place] [address] 11/12/2022 Office Visit Cardiology Alcon Lott PA-C [address] [place] [address] 12/17/2022 Office Visit Dermatology Kim Kong MD [address] [facility] [place] [address] Health Maintenance Due Date Last Done Comments [...] this encounter Medical Devices Implanted Type Area Casing Cooker Device Identifier Shelf Expiration Date Model / Serial / Lot Band Ankur 225-241 - [id number] Implanted:Qty: 1 on 12/26/2010 [place] [facility] Chest [employer] 225-241 / / [id number] Lens Intraoc 17.5 - [id number] - [id number] Implanted:Qty: 1 on 02/07/2019 by Quincy Paiz MD at OR [facility] Right: Eye [employer] 08/14/2023 [id number] / [id number] / [id number] Lens Intraoc 17.0 - [id number] - [id number] Implanted:Qty: 1 on 03/01/2019 by Quincy Paiz MD at OR [facility] Left: Eye [employer] 09/12/2022 [id number] / [id number] / [id number] documented as of this encounter Results * LIPID PANEL WITH DIRECT LDL IF TG IS HIGH (07/31/2022 7:58 AM EDT) Triglycerides 80 <=174 mg/dL 07/31/2022 3:09 PM EDT [facility] Comment: Triglyceride Reference Ranges (mg/dL): <150 Acceptable 150-174 Borderline high 175-499 High >=500 Very high Cholesterol 176 <200 mg/dL 07/31/2022 3:09 PM EDT [facility] Comment: Total Cholesterol Reference Ranges (mg/dL): <200 Desirable 200-239 Borderline high >=240 High HDL Cholesterol 71 >39 mg/dL 3:09 PM EDT [facility] Comment: HDL Cholesterol Reference Ranges (mg/dL): >=60 High (Desirable) <50 Low (Undesirable) For Females <40 Low (Undesirable) For Males Non-HDL Cholesterol 105 <=159 mg/dL 07/31/2022 3:09 PM EDT [facility] Comment: Non-HDL Cholesterol Reference Range (mg/dL): <100 Target level for high risk ASCVD patient <130 Optimal for general population 130-159 Near optimal for general population 160-189 Borderline High 190-219 High >=220 Very High LDL Cholesterol 89 <=129 mg/dL 07/31/2022 3:09 PM EDT [facility] Comment: LDL Cholesterol Reference Ranges (mg/dL): <70 Target level for high risk ASCVD patient <100 Optimal for general population 100-129 Near optimal for general population 130-159 Borderline high 160-189 High >=190 Very high Blood Venous blood specimen / Unknown Venipuncture / Unknown 07/31/2022 7:58 AM EDT 07/31/2022 8:00 AM EDT Aparna Helms [facility] LAB BLOOD O RDERABLES [facility] [address] [place] [address] documented in this encounter Visit Diagnoses Diagnosis Dyslipidemia, goal LDL below 70- Primary Other and unspecified hyperlipidemia documented in this encounter Advance Directives Latest Code Status on File Code Status Date Activated Date Inactivated Comments Full Code 12/26/2010 11:49 AM 12/30/2010 3:24 PM Th is order reflects the patients wishes and were consensually agreed upon. Care Teams Balance Wheel Facer Relationship Specialty Start Date End Date Smith Orozco MD [address] [place] [address] [place] [address] PCP - General Family Medicine 08/03/18 documented as of this encounter
--- OUTSIDE RECORDS SUMMARY | 2022-11-16 13:07 | External Medical Summary ---
Author Name Unknown Address Unknown Organization K01:[facility]AT[facility] [place] - [address] [place] [address] Laboratory Report Ordering Provider Test Date Status LOLIS BRADFORD 07/31/2022 07:58:01 Final Observation Date Value Abnormality Reference (Units ) Status HbA1C 07/31/2022 07:58:01 7.1 Above high normal 4. 0-5.6 (%) Final Performing Location LABORATORY [facility] - [address] [place] [address]
--- OUTSIDE RECORDS SUMMARY | 2022-11-16 13:08 | External Medical Summary | Summary of Care ---
Author Name Unknown Organization [facility] Address [facility] [place] [address] Care Team Providers Care Milk Hauler Name Role Phone Smith Orozco MD Primary Care Provider [phone] Reason for Visit * Reason Comments eRx-Medication Refill Encounter Details Date Type Department Care Team Description 04/23/2022 Refill Cardiology, [facility] [address] [place] [id number] Karly Adler PA-C [address] [place] [phone] Allergies Active Allergy Reactions Severity Noted Date Comments Acetaminophen Renal complications 04/27/2009 Aspirin 08/13/2000 Stomach pain Cholestyramine 08/13/2000 Kidney pain Atorvastatin Calcium 04/28/2007 cramping Niacin Muscle pain 07/22/2007 Simvastatin Hives 08/13/2000 Ezetimibe 04/28/2007 Cramping ankles, turned feet inward documented as of this encounter (statuses as of 04/23/2022) Medications Medication Sig Dispensed Refills Start Date End Date Status GAVI 180 MG PO TABSIndications:All ergic rhinitis One pill by mouth once a day for allergies 30 5 0 Active Additional Information Patient taking differently:Oral,Indications: as needed, Reported on 02/18/2022 MAGNESIUM OXIDE 200 MG PO TABSIndications: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 90 Tablet 3 2 Active Praluent 75 MG/ML Subcutaneous Solution Auto-injector (Alirocumab)Indicat ions:Dyslipidemia, goal LDL below 70,Statin intolerance,Atheros clerosis of [place] coronary artery of [place] heart without angina pectoris,Old NV (myocardial infarction) Inject under the skin 75 mg every 14 days . 2 mL 11 2 Active Tretinoin 0.05 % External Cream (Retin-A)Indication s:Actinic keratosis APPLY NIGHTLY TO FACE DIRECTED,CAN MIX WITH PONDS 45 g 5 2 Active FreeStyle Devi 2 Sensor Use as directed . 0 Active Terazosin HCl 5 MG Oral Capsule (Hytrin)Indications :Ischemic cardiomyopathy Take by mouth 1 Capsule in the morning. 90 Capsule 3 2 Active Valsartan 320 MG Oral Tablet (Diovan)Indications :Atherosclerosis of [place] coronary artery of [place] heart without angina pectoris,Primary hypertension Take by mouth 0.5 Tablets in the morning AND 0.5 Tablets before bedtime. 90 Tablet 1 2 Active Furosemide 20 MG Oral Tablet (Lasix)Indications: Ischemic cardiomyopathy Take by mouth 1 Tablet in the morning. 90 Tablet 3 2 Active Omeprazole 20 MG Oral Capsule Delayed Release (PriLOSEC)Indicatio ns:Peptic ulcer TAKE BY MOUTH 1 CAPSULE IN THE MORNING. 90 Capsule 1 2 Active metFORMIN HCl 1000 MG Oral Tablet (Glucophage)Indicat ions:Type 2 diabetes mellitus with diabetic nephropathy (HCC),Type 2 diabetes mellitus with hemoglobin A1c goal of less than 8.0% (HCC) TAKE 1 TABLET BY MOUTH TWICE A DAY WITH BREAKFAST AND DINNER 180 Tablet 1 2 Active Vitamin B 12 500 MCG Oral Tablet Take by mouth. 0 Activ e Finasteride 5 MG Oral Tablet (Proscar)Indication s:BPH with obstruction/lower urinary tract symptoms Take 1 Tablet (5 mg) by mouth in the morning. 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 Atherosclerosis of [place] co ronary artery of [place] heart without angina pectoris 11/30/2001 GENERAL OSTEOARTHROSIS Multiple pulmonary nodules Complex renal cyst Overview: 3.8 cm; L Old NV (myocardial infarction) documented as of this encounter (statuses as of 04/23/2022) Resolved Problems Problem Noted Date Resolved Date [employer] Other*[id number] 201004/22/2016 Overview: Study Titile: Genomics Markers for Patients with Cardiovascular Disease Project # [id number] PI: Amalia Kingsley MD Please call [phone] with study related questions HTN, goal below 130/80 04/15/2010 2 Overview: Per HTN Protocol #27. Actinic keratosis 04/27/2009 10/12/2015 DM TYPE 2 CAUSING RENAL DZ 01/11/200902/01 Overview: Per Diabetes Taxonomy. Added per DM w/ renal complications protocol #4 DIAB RENAL MANIF ADULT 10/06/2007 9 Overview: Per Diabetes Taxonomy. Added per DM w/ renal complications protocol #4 Seborrheic dermatitis 01/24/2002 10/12/2015 Solar lentigo 10/27/2001 04/30/2016 ACUTE NV; INFERIOR WALL;SUBSEQUENT EPISODE CARE 06/21/2013 HYPERTENSION NOS [...] as of this encounter (statuses as of 04/23/2022) Immunizations Name Administration Dates Next Due COVID-19 mRNA, LNP-s, No Pre serve, 2-Dose Series ([employer]) 01/09/2021,06/08/2020,05/18/2020 COVID-19, LNP-s, No Preserve , Johann-sucrose, Ages 12+ (Pfizer) 06/18/2021 Covid-19, Mrna, Lnp-s, Pf, B ivalent Booster, 30 Mcg, IM, 12 yrs and above ([employer]) 12/17/2021 Pneumococcal Conjugate Vacc, 13 Valent (Prevnar) [...] encounter Miscellaneous Notes * Telephone Encounter - Karly Adler PA-C - 04/23/2022 10:48 AM ESTSigned Prescriptions: Disp Refills Isosorbide Mononitrate ER 60 MG Oral Table*90 Tab*3 Sig: TAKE 1 TABLET BY MOUTH EVERY DAY IN THE MORNING Authorizing Provider: KARLY ADLER * Telephone Encounter - Lizandro Em RN - 04/23/2022 9:48 AM ESTPending Prescriptions: Disp Refills Isosorbide Mononitrate ER 60 MG Oral Table*90 Tab*3 Sig: TAKE 1 TABLET BY MOUTH EVERY DAY IN THE MORNING * Telephone Encounter - Lizandro Em RN - 04/23/2022 9:47 AM EST Pending Prescriptions: Disp Refills Isosorbide Mononitrate ER 60 MG Oral Tabl*90 Tab*3 Sig: TAKE 1 TABLET BY MOUTH EVERY DAY IN THE MORNING Last Visit: 07/12/2020 (in office), Visit date not found (telemedicine) Next Visit: 05/23/2022 Last medication order date: 04/19/2021 Have you choosen a preferred pharm?? yes Patient Active Problem List Diagnosis Code GENERAL OSTEOARTHROSIS M15.9 Atherosclerosis of [place] coronary artery of [place] heart without angina pectoris I25.10 ADVANCE DIRECTIVE INFORMATION Type 2 diabetes mellitus with hemoglobin A1c goal of less than 8.0% ([facility]) E11.9 DYSLIPIDEMIA, GOAL LDL BELOW 70 E78.5 BPH with obstruction/lower urinary tract symptoms N40.1, N13.8 Primary hypertension I10 Statin intolerance Z78.9 Multiple pulmonary nodules R91.8 Ischemic cardiomyopathy I25.5 Complex renal cyst N28.1 Hx of actinic keratosis Z87.2 Type 2 diabetes mellitus with stage 2 chronic kidney disease, without long- term current use of insulin (HCC) E11.22, N18.2 Hx of nonmelanoma skin cancer Z85.828 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) E11.22, I12.9, N18.2 Old NV (myocardial infarction) I25.2 Nonrheumatic aortic valve stenosis I35.0 Edema R60.9 Carpal tunnel syndrome, bilateral G56.03 Labs: Lab Results Component Value Date/Time CREATININE 1.0 01/25/1996 10:05 AM CREATININE - [facility] 1.0 02/25/2021 09:44 AM CREATININE - [facility] 1.0 03/01/2020 02:51 PM CREATININE, RANDOM URINE - [facility] 51 02/25/2021 09:44 AM CREATININE, RANDOM URINE - [facility] 36 03/01/2020 02:51 PM CREATININE-OUTSIDE LAB 1.24 12/02/2021 12:00 AM Lab Results Component Value Date/Time POTASSIUM 4.8 01/25/1996 10:05 AM POTASSIUM - [facility] 4.4 02/25/2021 09:44 AM POTASSIUM - [facility] 4.4 03/01/2020 02:51 PM POTASSIUM, WHOLE BLOOD - [facility] 3.2 (L) 12/26/2010 11:27 AM POTASSIUM-OUTSIDE LAB 4.2 12/02/2021 12:00 AM Lab Results Component Value Date/Time TSH - [facility] 4.53 (H) 06/28/2020 11:20 AM TSH - [facility] 3.81 04/28/2018 09:11 AM TSH - OUTSIDE LAB 3.317 05/20/2021 12:00 AM Lab Results Component Value Date/Time LDL (CALCULATED) 175. (HH) 01/25/1996 10:05 AM LDL (CALCULATED)-OUTSIDE LAB 48 05/20/2021 12:00 AM LDL CHOLESTEROL (CALCULATED) - [facility] 74 06/28/2020 11:20 AM LDL CHOLESTEROL (CALCULATED) - [facility] 128 03/01/2020 02:51 PM LDL CHOLESTEROL (CALCULATED) - [facility] 102 08/19/2018 08:36 AM LDL CHOLESTEROL (DIRECT MEASURE) - [facility] NOT APPLICABLE 03/01/2020 02:51 PM LDL CHOLESTEROL (DIRECT MEASURE) - [facility] NOT APPLICABLE 08/19/2018 08:36 AM LDL CHOLESTEROL (DIRECT MEASURE) - [facility] 101 02/04/2011 04:00 PM LDL CHOLESTEROL (DIRECT MEASURE) - [facility] 144 (H) 03/01/2010 08:00 AM Lab Results Component Value Date/Time ALT 29 01/25/1996 10:05 AM ALT - [facility] 24 06/28/2020 11:20 AM ALT - [facility] 21 03/31/2019 08:26 AM Hemoglobin AIC Results: Lab Results Component Value [...] - [facility] 7.3 (H) 03/31/2019 08:26 AM documented in this encounter Plan of Treatment Upcoming Encounters Date Type Specialty Care Team Description 05/23/2022 Pharmacy Cardiology [facility] [address] [place] [id number] 06/02/2022 Office Visit Dermatology Kim Kong MD [address] [place] [address] 08/12/2022 Office Visit Family Medicine Smith Orozco MD [address] [place] [address] [place] [phone] 08/26/2022 Office Visit Cardiology Karly Adler PA-C [address] [place] [address] Health Maintenance Due Date Last Done Comments Depression Screening, Annual for Pts 12 and Over 08/29/2020 08/30/2019 Yearly B-12 07/12/2021 07/12/2020, 08/14, 08/19/2018, Additional history exists DIABETES-EYE EXAM 03/28/2022 03/28/2021, , 11/09/2018, Additional history exists Alb / Creat Ratio 05/20/2022 05/20/2021, , 03/01/2020, Additional history exists HgA1C 06/01/2022 12/02/2021, [...] this encounter Medical Devices Implanted Type Area Valuer Device Identifier Shelf Expiration Date Model / Serial / Lot Band Ankur 225-241 - [id number] [place]ed:Q[place] [facility] [place] [employer] 225-241 / / [id number] Lens Intraoc 17.5 - [id number] - [id number] Implanted:Qty: 1 on 02/07/2019 by Quincy Paiz MD at OR [facility] Right: Eye [employer] 08/14/2023 [id number] / [id number] / [id number] Lens Intraoc 17.0 - [id number] - [id number] Implanted:Qty: 1 on 03/01/2019 by Quincy Paiz MD at OR [facility] Left: Eye BAUSCH [employer] LOMB 09/12/2022 [id number] / [id number] / [id number] documented as of this encounter Advance Directives Latest Code Status on File Code Status Date Activated Date Inactivated Comments Full Code 12/26/2010 11:49 AM 12/30/2010 3:24 PM Th is order reflects the patients wishes and were consensually agreed upon. Care Teams Milk Hauler Relationship Specialty Start Date End Date Smith Orozco MD [address] [place] [address] [place] [address] PCP - General Family Medicine 08/03/18 documented as of this encounter
--- OUTSIDE RECORDS SUMMARY | 2022-11-16 13:08 | External Medical Summary | Summary of Care ---
Author Name Unknown Organization [facility] [address] [address] Phone [phone] Care Team Providers Care Web Marketing Coordinator Name Role Phone Smith Danielle MD Primary Care Provider Reason for Visit * Reason Onset Date Comments Medication Refill 07/10/2022 Encounter Details Date Type Department Care Team Description 07/10/2022 Refill Family Medicine [address] [phone] Smith Danielle MD [address] [place] [address] [place] [address] Actinic keratosis Allergies Active Allergy Reactions Severity Noted Date Comments Acetaminophen Renal complications 04/27/2009 Aspirin 08/13/2000 Stomach pain Cholestyramine 08/13/2000 Kidney pain Atorvastatin Calcium 04/28/2007 cramping Niacin Muscle pain 07/22/2007 Simvastatin Hives 08/13/2000 Ezetimibe 04/28/2007 Cramping ankles, turned feet inward documented as of this encounter (statuses as of 07/10/2022) Medications Medication Sig Dispensed Refills Start Date End Date Status GAVI 180 MG PO TABSIndications:All ergic rhinitis One pill by mouth once a day for allergies 30 5 07/23/2009 Active Additional Information Patient taking differently:Oral,Indications: as needed, Reported on 02/18/2022 MAGNESIUM OXIDE 200 MG PO TABSIndications: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 90 Tablet 3 11/18/2021 Active Omeprazole 20 MG Oral Capsule Delayed Release (PriLOSEC)Indicatio ns:Peptic ulcer TAKE BY MOUTH 1 CAPSULE IN THE MORNING. 90 Capsule 1 01/08/2022 Active metFORMIN HCl 1000 MG Oral Tablet (Glucophage)Indicat ions:Type 2 diabetes mellitus with diabetic nephropathy (HCC),Type 2 diabetes mellitus with hemoglobin A1c goal of less than 8.0% (HCC) TAKE 1 TABLET BY MOUTH TWICE A DAY WITH BREAKFAST AND DINNER 180 Tablet 1 01/08/2022 Active Vitamin B 12 500 MCG Oral Tablet Take by mouth. 0 Activ e Finasteride 5 MG Oral Tablet (Proscar)Indication s:BPH with obstruction/lower urinary tract symptoms Take 1 Tablet (5 mg) by mouth in the morning. 90 Tablet 1 02/10/2022 Active Jardiance 25 MG Oral TabletIndications:T ype [...] goal LDL below 70,Statin intolerance,Atheros clerosis of [place] coronary artery of [place] heart without angina pectoris,Old [place] (myocardial infarction) INJECT UNDER THE SKIN 75 MG EVERY 14 DAYS . 6 mL 3 05/09/2022 Active amLODIPine Besylate 2.5 MG Oral Tablet (Norvasc)Indication s:Essential hypertension with goal blood pressure less than 140/90,Old IN (myocardial infarction) Take 1 Tablet by mouth in the morning. 90 Tablet 3 05/13/2022 Active Valsartan 320 MG Oral Tablet (Diovan)Indications :Atherosclerosis of [place] coronary artery of [place] heart without angina pectoris,Primary hypertension Take 0.5 Tablets by mouth in the morning and 0.5 Tablets before bedtime. 90 Tablet 1 05/12/2022 Active Tretinoin 0.05 % External Cream (Retin-A)Indication s:Actinic keratosis APPLY NIGHTLY TO FACE DIRECTED,CAN MIX WITH PONDS 45 g 5 07/10/2022 Active Tretinoin 0.05 % External Cream (Retin-A)Indication s:Actinic keratosis APPLY NIGHTLY TO FACE DIRECTED,CAN MIX WITH PONDS 45 g 5 08/06/2021 Discontinu ed(Refill) documented as of this encounter (statuses as of 07/10/2022) Active Problems Problem Noted Date Carpal tunnel [...] to patient at prior appointment. Atherosclerosis of [place] co ronary artery of [place] heart without angina pectoris 11/30/2001 GENERAL OSTEOARTHROSIS Multiple pulmonary nodules Complex renal cyst Overview: 3.8 cm; L Old [place] (myocardial infarction) documented as of this encounter (statuses as of 07/10/2022) Resolved Problems Problem Noted Date Resolved Date [employer] Cardio Research Other*[id number] 201004/22/2016 Overview: Study Titile: Genomics Markers for Patients with Cardiovascular Disease Project # [id number] PI: Amalia Kingsley MD Please call [phone] with study related questions HTN, goal below 130/80 04/15/2010 2 Overview: Per HTN Protocol #27. DM TYPE 2 CAUSING RENAL DZ 01/11/200902/01 Overview: Per Diabetes Taxonomy. Added per DM w/ renal complications protocol #4 DIAB RENAL MANIF ADULT 10/06/2007 Overview: Per Diabetes Taxonomy. Added per DM w/ renal complications protocol #4 Seborrheic dermatitis 01/24/2002 10/12/2015 Solar lentigo 10/27/2001 04/30/2016 ACUTE IN; INFERIOR WALL;SUBSEQUENT EPISODE CARE 06/21/2013 HYPERTENSION NOS [...] as of this encounter (statuses as of 07/10/2022) Immunizations Name Administration Dates Next Due COVID-19 mRNA, LNP-s, No Pre serve, 2-Dose Series ([employer]) 01/09/2021,06/08/2020,05/18/2020 COVID-19, LNP-s, No Preserve , Johann-sucrose, Ages 12+ (Pfizer) 06/18/2021 Covid-19, Mrna, Lnp-s, Pf, B ivalent Booster, 30 Mcg, IM, 12 yrs and above ([employer]) 12/17/2021 Pneumococcal Conjugate Vacc, 13 Valent (Prevnar) [...] encounter Miscellaneous Notes * Telephone Encounter - Smith Danielle MD - 07/10/2022 1:40 PM EDTSigned Prescriptions: Disp Refills Tretinoin 0.05 % External Cream (Retin-A) 45 g 5 Sig: APPLY NIGHTLY TO FACE DIRECTED,CAN MIX WITH PONDS Authorizing Provider: SMITH DANIELLE * Telephone Encounter - Candy Daugherty RN - 07/10/2022 1:31 PM EDTPending Prescriptions: Disp Refills Tretinoin 0.05 % External Cream (Retin-A) 45 g 5 Sig: APPLY NIGHTLY TO FACE DIRECTED,CAN MIX WITH PONDS * Telephone Encounter - Candy Daugherty RN - 07/10/2022 1:30 PM EDT Pending Prescriptions: Disp Refills Tretinoin 0.05 % External Cream (Retin-A) 45 g 5 Sig: APPLY NIGHTLY TO FACE DIRECTED,CAN MIX WITH PONDS Last Visit: 02/10/2022 (in office), Visit date not found (telemedicine) Next Visit: 08/12/2022 Last date the medication was ordered: 08/04 Patient Active Problem List Diagnosis Code GENERAL OSTEOARTHROSIS M15.9 Atherosclerosis of [place] coronary artery of [place] heart without angina pectoris I25.10 ADVANCE DIRECTIVE INFORMATION Type 2 diabetes mellitus with hemoglobin A1c goal of less than 8.0% ([facility]) E11.9 DYSLIPIDEMIA, GOAL LDL BELOW 70 E78.5 [...] and hypertension (HCC) E11.22, I12.9, N18.2 Old [place] (myocardial infarction) I25.2 Nonrheumatic aortic valve stenosis [...] Description 08/12/2022 Office Visit Family Medicine Smith Danielle MD [address] [place] [address] Dr Goldberg [place] [phone] 10/17/2022 Office Visit Cardiology Cecille Eldridge CRNP [address] [place] [phone] 12/17/2022 Office Visit Dermatology Kim Kong MD [address] [place] [address] Health Maintenance Due Date Last Done Comments Depression Screening, Annual for Pts 12 and Over 08/29/2020 08/30/2019 Yearly B-12 07/12/2021 07/12/2020, 08/14, 08/19/2018, Additional history exists DIABETES-EYE EXAM 03/28/2022 03/28/2021, , 11/09/2018, Additional history exists Albumin/Creatinine Ratio 05/20/2022 03/07/2 022, 02/25/2021, 03/01/2020, Additional history exists HgA1C [...] this encounter Medical Devices Implanted Type Area Entry Level Sales Representative Device Identifier Shelf Expiration Date Model / Serial / Lot Band Ankur 225-241 - [id number] Implanted:Qty: 1 on 12/26/[address] [facility] [place] Chest [employer] 225-241 / / [id number] Lens Intraoc 17.5 - [id number] - [id number] Implanted:Qty: 1 on 02/07/2019 by Quincy Paiz MD at OR [facility] Right: Eye [employer] 08/14/2023 [id number] / [id number] / [id number] Lens Intraoc 17.0 - [id number] - [id number] Implanted:Qty: 1 on 03/01/2019 by Quincy Paiz MD at OR [facility] Left: Eye BA[employer]CH [employer]OMB 09/12/2022 [id number] / [id number] / [id number] documented as of this encounter Visit Diagnoses Diagnosis Actinic keratosis documented in this encounter Advance Directives Latest Code Status on File Code Status Date Activated Date Inactivated Comments Full Code 12/26/2010 11:49 AM 12/30/2010 3:24 PM Th is order reflects the patients wishes and were consensually agreed upon. Care Teams Web Marketing Coordinator Relationship Specialty Start Date End Date Smith Danielle MD [address] [place] [address] [place] [address] PCP - General Family Medicine 08/03/18 documented as of this encounter
--- OUTSIDE RECORDS SUMMARY | 2022-11-16 13:08 | External Medical Summary | Summary of Care ---
Author Name Unknown Organization [place] [address] Care Team Providers Care Hand Scraper Name Role Phone Smith Orozco MD Primary Care Provider [phone] Reason for Visit * Reason Comments Follow Up 6 month follow up. D enies chest pain, palpitations, SOB, dizziness and edema. Encounter Details Date Type Department Care Team Description 02/18/2022 Office Visit Cardiology [address] [place] [address] Alcon Lott PA-C [address] [facility] [place] [address] Ischemic cardiomyopathy*; Dyslipidemia, goal LDL below 70; Statin intolerance; Atherosclerosis of [place] coronary artery of [place] heart without angina pectoris; Old [place] (myocardial infarction); Essential hypertension with goal blood pressure less than 140/90; HTN, goal below 130/80; Nonrheumatic aortic valve stenosis; Asymptomatic bilateral carotid artery stenosis; Bilateral carotid bruits Allergies Active Allergy Reactions Severity Noted Date Comments Acetaminophen Renal complications 04/27/2009 Aspirin 08/13/2000 Stomach pain Cholestyramine 08/13/2000 Kidney pain Atorvastatin Calcium 04/28/2007 cramping Niacin Muscle pain 07/22/2007 Simvastatin Hives 08/13/2000 Ezetimibe 04/28/2007 Cramping ankles, turned feet inward documented as of this encounter (statuses as of 02/21/2022) Medications Medication Sig Dispensed Refills Start Date [...] hemoglobin A1c goal of less than 8.0% ([facility]) USE ONE TEST STRIP TO TEST BLOOD SUGAR LEVELS TWICE A DAY 200 Strip 5 11/11/2019 Active OneTouch UltraSoft Lancets MISCIndications:Type 2 diabetes mellitus with hemoglobin A1c goal of less than 8.0% ([facility]) USE ONE LANCET TO TEST [...] with meals. 1 Each 0 11/20/2020 Active Isosorbide Mononitrate ER 60 MG Oral Tablet Extended Release 24 Hour (Imdur) TAKE 1 TABLET BY MOUTH EVERY MORNING 90 Tablet 3 04/19/2021 Active BD Pen Needle Ashley 2nd Gen 32G X 4 MM INJECT 4 X DAY 0 04/21/2021 Ac tive amLODIPine Besylate 2.5 MG Oral Tablet (Norvasc)Indications :Essential hypertension with goal blood pressure less than 140/90,Old [place] (myocardial infarction) Take by mouth 1 Tablet in the morning. 90 Tablet 3 05/10/2021 Active Praluent 75 MG/ML Subcutaneous Solution Auto-injector (Alirocumab)Indicati ons:Dyslipidemia, goal LDL below 70,Statin intolerance,Atherosc lerosis of [place] coronary artery of [place] heart without angina pectoris,Old [place] (myocardial infarction) Inject under the skin 75 mg every 14 days . 2 mL 11 06/14/2021 Active Tretinoin 0.05 % External Cream (Retin-A)Indications :Actinic keratosis APPLY NIGHTLY TO FACE DIRECTED,CAN MIX WITH PONDS 45 g 5 08/06/2021 Active FreeStyle Devi 2 Sensor Use as directed . 0 Active Terazosin HCl 5 MG Oral Capsule (Hytrin)Indications: Ischemic cardiomyopathy Take by mouth 1 Capsule in the morning. 90 Capsule 3 11/18/2021 Active Valsartan 320 MG Oral Tablet (Diovan)Indications: Atherosclerosis of [place] coronary artery of [place] heart without angina pectoris,Primary hypertension Take by mouth 0.5 Tablets in the morning AND 0.5 Tablets before bedtime. 90 Tablet 1 11/20/2021 Active Furosemide 20 MG Oral Tablet (Lasix)Indications:I schemic cardiomyopathy Take by mouth 1 Tablet in the morning. 90 Tablet 3 11/18/2021 Active Omeprazole 20 MG Oral Capsule Delayed Release (PriLOSEC)Indication s:Peptic ulcer TAKE BY MOUTH 1 CAPSULE IN [...] the morning. 90 Tablet 1 02/10/2022 Active documented as of this encounter (statuses as of 02/21/2022) Active Problems Problem Noted Date Carpal tunnel [...] to patient at prior appointment. Atherosclerosis of [place] co ronary artery of [place] heart without angina pectoris 11/30/2001 GENERAL OSTEOARTHROSIS Multiple pulmonary nodules Complex renal cyst Overview: 3.8 cm; L Old [place] (myocardial infarction) documented as of this encounter (statuses as of 02/21/2022) Resolved Problems Problem Noted Date Resolved Date [employer] Other*[id number] 201004/22/2016 Overview: Study Titile: Genomics Markers for Patients with Cardiovascular Disease Project # [id number] PI: Amalia Kingsley MD Please call [phone] with study related questions HTN, goal below [...] as of this encounter (statuses as of 02/21/2022) Immunizations Name Administration Dates Next Due COVID-19 mRNA, LNP-s, No Pre serve, 2-Dose Series ([employer]) 01/09/2021,06/08/2020,05/18/2020 COVID-19, LNP-s, No Preserve , Johann-sucrose, Ages 12+ (Pfizer) 06/18/2021 Covid-19, Mrna, Lnp-s, Pf, B ivalent Booster, 30 Mcg, IM, 12 yrs and above ([employer]) 12/17/2021 Pneumococcal Conjugate Vacc, 13 Valent (Prevnar) [...] Sign Reading Time Taken Comments Blood Pressure 128/72 02/18/2022 8:20 AM EST Pulse 72 02/18/2022 8:20 AM EST Temperature 36.5 C (97.7 F) 02/18/2022 8:20 AM ES T Respiratory Rate 15 02/18/2022 8:20 AM EST Oxygen Saturation - - Inhaled Oxygen Concentration - - Weight 64.6 kg (142 lb 8 oz) 02/18/2022 8:20 AM EST Height - - Body Mass Index 23.71 05/17/2021 12:38 PM EST documented in this encounter Progress Notes * Alcon Lott PA-C - 02/18/2022 8:34 AM EST History of Present Illness: Mr. eRynolds is a very pleasant 81 year old male who returns today for cardiology follow-up evaluation. Patient returns today feeling relatively well from a cardiac standpoint. No overt change in exercise tolerance or functional capacity. No chest pain or angina. No palpitations. Stable exertional dyspnea. No resting dyspnea. No significant peripheral edema. No cough, orthopnea, PND, or peripheral edema. No dizziness or syncope. No melena or hematochezia. Patient Active Problem List Diagnosis Code GENERAL OSTEOARTHROSIS M15.9 Atherosclerosis of [place] coronary artery of [place] heart without angina pectoris I25.10 ADVANCE DIRECTIVE INFORMATION Type 2 diabetes mellitus with hemoglobin A1c goal of less than 8.0% ([facility]) E11.9 DYSLIPIDEMIA, GOAL LDL BELOW 70 E78.5 [...] and hypertension (HCC) E11.22, I12.9, N18.2 Old [place] (myocardial infarction) I25.2 Nonrheumatic aortic valve stenosis I35.0 Edema R60.9 Carpal tunnel syndrome, bilateral G56.03 Past Surgical History: Inguinal hernia. CABG Social History: From [place]. Lives in [place] with his . Reformed smoker. 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 Complete Review of Systems is as stated above, negative, or noncontributory. Review of patient's allergies indicates: Allergen Reactions Acetaminophen Renal complications Aspirin Stomach pain Cholestyramine Kidney pain Lipitor [Atorvastatin Calcium] cramping Niacin Muscle pain Simvastatin Hives Zetia [Ezetimibe] Cramping ankles, turned feet inward Current Outpatient Medications Medication Sig Dispense Refill MAGNESIUM OXIDE 200 MG PO TABS one tablet twice a day 60 Tab 5 MULTI-VITAMIN PO TABS one pill each day Basaglar KwikPen 100 UNIT/ML Subcutaneous Solution Pen-injector (Insulin Glargine) Inject 7 Units under the skin daily. 1 Each NovoLOG FlexPen 100 UNIT/ML Subcutaneous Solution Pen-injector (insulin aspart) Inject 4-5 Units under the skin three times a day with meals. 1 Each Isosorbide Mononitrate ER 60 MG Oral Tablet Extended Release 24 Hour (Imdur) TAKE 1 TABLET BY MOUTH EVERY MORNING 90 Tablet 3 BD Pen Needle Ashley 2nd Gen 32G X 4 MM INJECT 4 X DAY amLODIPine Besylate 2.5 MG Oral Tablet (Norvasc) Take by mouth 1 Tablet in the morning. 90 Tablet 3 Praluent 75 MG/ML Subcutaneous Solution Auto-injector (Alirocumab) Inject under the skin 75 mg every 14 days . 2 mL 11 Tretinoin 0.05 % External Cream (Retin-A) APPLY NIGHTLY TO FACE DIRECTED,CAN MIX WITH PONDS 45 g 5 FreeStyle Devi 2 Sensor Use as directed . Terazosin HCl 5 MG Oral Capsule (Hytrin) Take by mouth 1 Capsule in the morning. 90 Capsule 3 Valsartan 320 MG Oral Tablet (Diovan) Take by mouth 0.5 Tablets in the morning AND 0.5 Tablets before bedtime. 90 Tablet 1 Furosemide 20 MG Oral Tablet (Lasix) Take by mouth 1 Tablet in the morning. 90 Tablet 3 Omeprazole 20 MG Oral Capsule Delayed Release (PriLOSEC) TAKE BY MOUTH 1 CAPSULE IN THE MORNING. 90 Capsule 1 metFORMIN HCl 1000 MG Oral Tablet (Glucophage) TAKE 1 TABLET BY MOUTH TWICE A DAY WITH BREAKFAST AND DINNER 180 Tablet 1 Vitamin B 12 500 MCG Oral Tablet Take by mouth. Finasteride 5 MG Oral Tablet (Proscar) Take 1 Tablet (5 mg) by mouth in the morning. 90 Tablet 1 Jardiance 25 MG Oral Tablet Take 1 Tablet (25 mg) by mouth in the morning. 90 Tablet 1 GAVI 180 MG PO TABS One pill by mouth once a day for allergies (Patient taking differently: Take by mouth .) 30 5 SB LOW DOSE ASA EC 81 MG PO TBEC Take by mouth. Indications: pmonday, thursday (Patientnot taking: Reported on 02/18/2022) ONETOUCH ULTRA STRP USE ONE TEST STRIP TO TEST BLOOD SUGAR LEVELS TWICE A DAY 200 Strip 5 OneTouch UltraSoft Lancets MISC USE ONE LANCET TO TEST BLOOD SUGAR LEVELS TWICE A DAY 200 Each 3 No current facility-administered medications for this visit. PHYSICAL EXAMINATION BP 128/72 | Pulse 72 | Temp 36.5 C (97.7 F) | Resp 15 | Wt 64.6 kg (142 lb 8 oz) | BMI 23.71 kg/m | BSA 1.72 m Blood pressure my evaluation was 126/62 General: A&Ox3. NAD. HENT: Normocephalic. Atraumatic. Eyes: PER. Conjunctiva pink, sclera clear. Neck: Bilateral carotid bruits. No JVD. No HJR. Heart: Irregular with occasional ectopic beat. Heart rate at 60 bpm. Grade II/ systolic ejection murmur. No rub. No gallop. PMI is nondisplaced. Lungs: Clear to auscultation. Abdomen: +BS. No abdominal bruits. Soft. Nontender. No masses or organomegaly. Extremities: No edema. No clubbing. No cyanosis. Limited neurological examination is without focal deficits. Pulses: radial=2/4, posterior tibial=2/4. Data: May 20, 2021 lipid panel: Cholesterol 120. LDL 48. HDL 50. Triglycerides 111. August 15, 2021 TTE Interpretation Summary (as per Dr. Hinds): Compared to last available study, there has been no interval change. Mildly dilated LV chamber size with mild concentric LVH. Mildly reduced LV systolic function, EF 45 to 50%. There is a large sized apical, septal, anteroseptal, inferior, and posterior wall motion abnormality with mild to moderate hypokinesis. Grade 1 diastolic dysfunction. The aortic valve is mildly calcified. The aortic valve opening is mildly reduced. Mild aorticvalve stenosis is present. Mild aortic valve regurgitation is present. Mild mitral regurgitation. Mild tricuspid regurgitation ASSESSMENT: 1. ASCVD. Stable. 1. Prior inferior MN in 1994 managed at [facility]. 2. Catheterization in 2010 following abnormal nuclear stress testing demonstrating widespread and greatly calcified CAD including a 70% LM stenosis, 80% mid LAD stenosis, 70% proximal LCX lesion and heavily disease distal stenosis, and a dominant RCA with occlusion with left to right filling. 3. Status post 12/26/2010 off pump coronary artery bypass times 4 with a [place] - LAD and SVG's to the diagonal, intermediate artery, and obtuse marginal. 4. Ischemic cardiomyopathy, LVEF 45-50%. 2. Valve disease, aortic stenosis and insufficiency, mitral regurgitation. 3. Chronic bradycardia. Beta-layne intolerance. 4. Palpitations in association with sensed ectopy. 5. Labile hypertension. 6. Dyslipidemia. Intolerant to statins and ezetimibe. Lipids above were obtained in follow-up afterinitiation of Praluent, well controlled. 7. Carotid artery disease. History of prior TIA with transient leg weakness. August 2021 Carotid duplex with stable internal carotid artery disease. +Heavily calcified plaque 8. Type II diabetes mellitus. Followed by PCP. 9. BPH 10. Mild peripheral edema, chronic, stable, multifactorial. Options of management discussed with patient. Plan as outlined below. RECOMMENDATIONS/PLAN: 1. Continue current medications as prescribed. 2. Cardiology follow-up in 6 months or as needed. 3. ER with emergencies. Alcon Lott PA-C Department of Cardiology This chart was completed in part utilizing [employer] Speech Voice Recognition Software. Grammatical errors, random word insertions, prounoun errors, and incomplete sentences are an occasional consequence of this system due to software limitations, ambient noise, and hardware issues. Any formal questions or concerns about the content, text, or information contained within the body of this dictation should be directly addressed to the provider for clarification. documented in this encounter Nursing Notes * Juan M Addison LPN - 02/18/2022 8:19 AM EST Patient identified by full name and date of Chief Complaint Patient presents with Follow Up 6 month follow up. Denies chest pain, palpitations, SOB, dizziness and edema. Examination Room: 4 Name: Cl Reynolds Date of : (1940). Reason for Visit: 6 month follow up Interim Hospitalization(s): Denies Problems/Concerns: Denies Chest Pain/SOB: Denies [facility] Discussed: Not applicable [facility] is a way you can talk to your provider online through e-mail. Would you like to sign up? I can activate it for you? ALREADY ACTIVE Patient was instructed to not get up on the exam table until directed and assisted by their provider; patient is to remain seated in the chair/ wheelchair/ exam table for fall prevention and safety reasons. Patient is aware to have assistance to step down off exam table with personnel. Patient voiced full comprehension of instructions. documented in this encounter Plan of Treatment Upcoming Encounters Date Type Specialty Care Team Description 05/23/2022 Pharmacy Cardiology [facility] Cardiology [address] [place] [address] 06/02/2022 Office Visit Dermatology Kim Kong MD [address] [place] [address] 08/12/2022 Office Visit Family Medicine Smith Orozco MD [address] [place] [address] [place] [address] 08/26/2022 Office Visit Cardiology Alcon Lott PA-C [address] [facility] [place] [id number] Health Maintenance Due Date Last Done Comments Hepatitis B (1 of 3 - 3-dose series) 1940 Depression Screening, Annual for Pts 12 and Over 08/29/2020 08/30/2019 Yearly B-12 07/12/2021 07/12/2020, 08/14, 08/19/2018, Additional history exists DIABETES-HGBA1C EVERY 6 MONTHS 11/20/2021 05/20/2021, 02/25/2021, 06/28/2020, Additional history exists GFR - Renal Function 02/25/2022 02/25/2021, 07/12/2020, 06/28/2020, Additional history exists DIABETES-EYE EXAM 03/28/2022 03/28/2021, , 11/09/2018, Additional history exists Alb / Creat Ratio 05/20/2022 05/20/2021, , 03/01/2020, Additional history exists DTaP,Tdap,and Td Vaccines (2 - Td or Tdap) 08/05/2022 08/05/2012, 03/16/2003 DIABETES-FOOT EXAM 08/06/2022 08/06/2021, 1 05/02/2019, 01/24/2019, Additional history exists Pneumococcal Vaccine: 65+ Years [...] this encounter Medical Devices Implanted Type Area Curb Machine Operator Device Identifier Shelf Expiration Date Model / Serial / Lot Band Ankur 225-241 - [id number] Implanted:Qty: 1 on 12/26/2010 at [place] [facility] Chest [employer] 225-241 / / [id number] Lens Intraoc 17.5 - [id number] - [id number] Implanted:Qty: 1 on 02/07/2019 by Quincy Paiz MD at OR [facility] Right: Eye [employer] 08/14/2023 [id number] / [id number] / [id number] Lens Intraoc 17.0 - [id number] - [id number] Implanted:Qty: 1 on 03/01/2019 by Quincy Paiz MD at OR [facility] Left: Eye [employer] 09/12/2022 [id number] / [id number] / [id number] documented as of this encounter Visit Diagnoses Diagnosis Ischemic cardiomyopathy- Primary Other specified forms of chronic ischemic heart disease Dyslipidemia, goal LDL below 70 Other and unspecified hyperlipidemia Statin intolerance Other drug allergy Atherosclerosis of [place] coronary artery of [place] heart without angina pectoris [place] (myocardial infarction) Old myocardial infarction Essential hypertension with goal blood pressure less than 140/90 HTN, goal below 130/80 Unspecified essential hypertension Nonrheumatic aortic valve stenosis Aortic valve disorders Asymptomatic bilateral carotid artery stenosis Occlusion and stenosis of multiple and bilateral precerebral arteries without mention of cerebral infarction Bilateral carotid bruits documented in this encounter Advance Directives Latest Code Status on File Code Status Date Activated Date Inactivated Comments Full Code 12/26/2010 11:49 AM 12/30/2010 3:24 PM Th is order reflects the patients wishes and were consensually agreed upon. Care Teams Hand Scraper Relationship Specialty Start Date End Date Smith Orozco MD [address] [place] [address] [place] [id number] PCP - General Family Medicine 08/03/18 documented as of this encounter"
--- OUTSIDE RECORDS SUMMARY | 2022-11-16 13:08 | External Medical Summary | Summary of Care ---
Author Name Unknown Organization [place] [address] Care Team Providers Care Airplane Flight Attendant Supervisor Name Role Phone Smith Orozco MD Primary Care Provider [phone] Reason for Visit * Reason Comments eRx-Medication Refill Encounter Details Date Type Department Care Team Description 05/09/2022 Refill Cardiology [address] [place] [address] Alcon Lott PADannyC [address] [place] [address] Dyslipidemia, goal LDL below 70; Statin intolerance; Atherosclerosis of [place] coronary artery of [place] heart without angina pectoris; Old CA (myocardial infarction) Allergies Active Allergy Reactions Severity Noted Date Comments Acetaminophen Renal complications 04/27/2009 Aspirin 08/13/2000 Stomach pain Cholestyramine 08/13/2000 Kidney pain Atorvastatin Calcium 04/28/2007 cramping Niacin Muscle pain 07/22/2007 Simvastatin Hives 08/13/2000 Ezetimibe 04/28/2007 Cramping ankles, turned feet inward documented as of this encounter (statuses as of 05/09/2022) Medications Medication Sig Dispensed Refills Start Date End Date Status GAVI 180 MG PO TABSIndications:All ergic rhinitis One pill by mouth once a day for allergies 30 5 0 Active Additional Information Patient taking differently:Oral,Indications: as needed, Reported on 02/18/2022 MAGNESIUM OXIDE 200 MG PO TABSIndications: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 Indications: pmonday, thursday 0 Active MULTI-VITAMIN PO TABS one pill each day 0 Active ONETOUCH ULTRA STRPIndications:Typ e 2 diabetes mellitus with hemoglobin A1c goal of less than 8.0% ([facility]) USE ONE TEST STRIP TO TEST BLOOD SUGAR LEVELS TWICE A DAY 200 Strip 5 0 Active OneTouch UltraSoft Lancets MISCIndications:Typ e 2 diabetes mellitus with hemoglobin A1c goal of less than 8.0% ([facility]) USE ONE LANCET TO TEST [...] with goal blood pressure less than 140/90,Old [place] (myocardial infarction) Take by mouth 1 Tablet in the morning. 90 Tablet 3 2 Active Tretinoin 0.05 % External Cream (Retin-A)Indication s:Actinic keratosis APPLY NIGHTLY TO FACE DIRECTED,CAN MIX WITH PONDS 45 g 5 2 Active FreeStyle Devi 2 Sensor Use as directed . 0 Active Terazosin HCl 5 MG Oral Capsule (Hytrin)Indications :Ischemic cardiomyopathy Take by mouth 1 Capsule in the morning. 90 Capsule 3 2 Active Valsartan 320 MG Oral Tablet (Diovan)Indications :Atherosclerosis of [place] coronary artery of [place] heart without angina pectoris,Primary hypertension Take by [...] goal LDL below 70,Statin intolerance,Atheros clerosis of [place] coronary artery of [place] heart without angina pectoris,Old [place] (myocardial infarction) INJECT UNDER THE SKIN 75 MG EVERY 14 DAYS . 6 mL 3 3 Active Praluent 75 MG/ML Subcutaneous Solution Auto-injector (Alirocumab)Indicat ions:Dyslipidemia, goal LDL below 70,Statin intolerance,Atheros clerosis of [place] coronary artery of [place] heart without angina pectoris,Old [place] (myocardial infarction) Inject under the skin 75 mg every 14 days . 2 mL 11 2 05/09/19 23 Discontinued documented as of this encounter (statuses as of 05/09/2022) Active Problems Problem Noted Date Carpal tunnel [...] to patient at prior appointment. Atherosclerosis of [place] co ronary artery of [place] heart without angina pectoris 11/30/2001 GENERAL OSTEOARTHROSIS Multiple pulmonary nodules Complex renal cyst Overview: 3.8 cm; L Old [place] (myocardial infarction) documented as of this encounter (statuses as of 05/09/2022) Resolved Problems Problem Noted Date Resolved Date Genomics Cardio Research Other*[id number] 201004/22/2016 Overview: Study Titile: Genomics Markers for Patients with Cardiovascular Disease Project # [id number] PI: Amalia Kingsley MD Please call [phone] with study related questions HTN, goal below [...] 01/24/2002 10/12/2015 Solar lentigo 10/27/2001 04/30/2016 ACUTE CA; INFERIOR WALL;SUBSEQUENT EPISODE CARE 06/21/2013 HYPERTENSION NOS [...] as of this encounter (statuses as of 05/09/2022) Immunizations Name Administration Dates Next Due COVID-19 mRNA, LNP-s, No Pre serve, 2-Dose Series (YR Free) 01/09/2021,06/08/2020,05/18/2020 COVID-19, LNP-s, No Preserve , Johann-sucrose, Ages 12+ (Pfizer) 06/18/2021 Covid-19, Mrna, Lnp-s, Pf, B ivalent Booster, 30 Mcg, IM, 12 yrs and above (YR Free) 12/17/2021 Pneumococcal Conjugate Vacc, 13 Valent (Prevnar) [...] encounter Miscellaneous Notes * Telephone Encounter - Romelia Antonio PA-C - 05/09/2022 11:16 AM EST Signed Prescriptions: Disp Refills Praluent 75 MG/ML Subcutaneous Solution Au*6 mL 3 Sig: INJECT UNDER THE SKIN 75 MG EVERY 14 DAYS . Authorizing Provider: ROMELIA ANTONIO * Telephone Encounter - SHERRELL Granados - 05/09/2022 8:29 AM ESTPending Prescriptions: Disp Refills Praluent 75 MG/ML Subcutaneous Solution Au*6 mL 3 Sig: INJECT UNDER THE SKIN 75 MG EVERY 14 DAYS . * Telephone Encounter - SHERRELL Granados - 05/09/2022 8:24 AM EST Did you pend patient's preferred pharmacy and medication before forwarding?yes Pharmacy: [id number] [id number] [facility] Pending Prescriptions: Disp Refills Praluent 75 MG/ML Subcutaneous Solution A*6 mL 3 Sig: INJECT UNDER THE SKIN 75 MG EVERY 14 DAYS . Last Visit: 02/18/2022 (in office), Visit date not found (telemedicine) Next Visit: 08/26/2022 If no future appointments scheduled, and last appointment is greater than a year ago, please schedule patient for a follow-up appointment Last date the medication was ordered: 06-14-2021 Is this request for a controlled substance?No Urine Drug Screen:No results found. However, due to the size of the patient record, not all encounters were searched. Please check Results Review for a complete set of results. Patient Phone Numbers Labs: Lab Results Component Value Date/Time CREAT 1.24 12/02/2021 12:00 AM CREAT 1.0 03/01/2020 02:51 PM CREAT 1.0 01/25/1996 10:05 AM POTASSIUM 4.2 12/02/2021 12:00 AM POTASSIUM 4.4 03/01/2020 02:51 PM POTASSIUM 4.8 01/25/1996 10:05 AM TSH 3.317 05/20/2021 12:00 AM TSH 3.81 04/28/2018 09:11 AM LDLCALC 48 05/20/2021 12:00 AM LDLCALC 128 03/01/2020 02:51 PM LDLCALC 175. (HH) 01/25/1996 10:05 AM LDLDIRECT NOT APPLICABLE 03/01/2020 02:51 PM LDLDIRECT 101 02/04/2011 04:00 PM ALT 24 06/28/2020 11:20 AM ALT 21 03/31/2019 08:26 AM ALT 29 01/25/1996 10:05 AM HGBA1C 7.1 (A) 12/02/2021 12:00 AM HGBA1C 7.5 (H) 03/01/2020 02:51 PM HGBA1C 5.7 05/16/1996 10:22 AM documented in this encounter Plan of Treatment Upcoming Encounters Date Type Specialty Care Team Description 05/23/2022 Pharmacy Cardiology [facility] Cardiology Imelda [address] [place] [address] 06/02/2022 Office Visit [facility]atology [facility] [address] 08/12/2022 Office Visit Family Medicine Smith Orozco MD [address] [place] [address] [place] [address] 08/26/2022 Office Visit Cardiology Alcon Lott PA-C [address] [place] [address] Health Maintenance Due Date Last Done Comments [...] this encounter Medical Devices Implanted Type Area Pressure Vessel Inspector Device Identifier Shelf Expiration Date Model / Serial / Lot Band [facility] 225-241 - [id number] Implanted:Qty: 1 on 12/26/2010 at OR [facility] Chest [employer] 225-241 / / [id number] Lens Intraoc 17.5 - [id number] - [id number] Implanted:Qty: 1 on 02/07/2019 by Quincy Paiz MD at OR [facility] Right: Eye [employer]OM[employer] 08/14/2023 [id number] / [id number] / [id number] Lens Intraoc 17.0 - [id number] - [id number] Implanted:Qty: 1 on 03/01/2019 by Quincy Paiz MD at OR [facility] Left: Eye BAUSCH & LOMB 09/12/2022 [id number] / [id number] / [id number] documented as of this encounter Visit Diagnoses Diagnosis Dyslipidemia, goal LDL below 70 Other and unspecified hyperlipidemia Statin intolerance Other drug allergy Atherosclerosis of [place] coronary artery of [place] heart without angina pectoris Old CA (myocardial infarction) Old myocardial infarction documented in this encounter Advance Directives Latest Code Status on File Code Status Date Activated Date Inactivated Comments Full Code 12/26/2010 11:49 AM 12/30/2010 3:24 PM Th is order reflects the patients wishes and were consensually agreed upon. Care Teams Airplane Flight Attendant Supervisor Relationship Specialty Start Date End Date Smith Orozco MD [address] [place] [address] [place] [address] PCP - General Family Medicine 08/03/18 documented as of this encounter
--- OUTSIDE RECORDS SUMMARY | 2022-11-16 13:08 | External Medical Summary | Summary of Care ---
Author Name Unknown Organization [facility] Address [address] [facility] [place] [address] Phone [phone] Care Team Providers Care Alteration Hand Name Role Phone Smith Orozco MD Primary Care Provider [phone] Reason for Visit * Reason Comments Skin Check Pt here for skin rose marie ck. No new concerns. Pt states he does not need a gown. Only wants face and scalp checked today. Encounter Details Date Type Department Care Team Description 06/02/2022 Office Visit Dermatology [address] [place] [address] Kim Kong MD [address] [place] [address] [place] [address] Scar*; Hx of actinic keratosis; Hx of nonmelanoma skin cancer; AK (actinic keratosis) Allergies Active Allergy Reactions Severity Noted Date Comments Acetaminophen Renal complications 04/27/2009 Aspirin 08/13/2000 Stomach pain Cholestyramine 08/13/2000 Kidney pain Atorvastatin Calcium 04/28/2007 cramping Niacin Muscle pain 07/22/2007 Simvastatin Hives 08/13/2000 Ezetimibe 04/28/2007 Cramping ankles, turned feet inward documented as of this encounter (statuses as of 06/02/2022) Medications Medication Sig Dispensed Refills Start Date [...] hemoglobin A1c goal of less than 8.0% ([facility]) USE ONE TEST STRIP [...] 4 X DAY 0 04/21/2021 Ac tive Tretinoin 0.05 % External Cream (Retin-A)Indications :Actinic [...] artery of [place] heart without angina pectoris,Old [place] (myocardial infarction) [...] before bedtime. 90 Tablet 1 05/12/2022 Active documented as of this encounter (statuses as of 06/02/2022) Active Problems Problem Noted Date Carpal tunnel [...] as of this encounter (statuses as of 06/02/2022) Resolved Problems Problem Noted Date Resolved Date Genomics Cardio Research Other*[id number] 201004/22/2016 Overview: Study Titile: Genomics Markers for Patients with Cardiovascular Disease Project # [id number] PI: Amalia Kingsley MD Please call [phone] with study related questions HTN, goal below [...] as of this encounter (statuses as of 06/02/2022) Immunizations Name Administration Dates Next Due COVID-19 mRNA, LNP-s, No Pre serve, 2-Dose Series ([employer]) 01/09/2021,06/08/2020,05/18/2020 COVID-19, LNP-s, No Preserve , Johann-sucrose, Ages 12+ (Pfizer) 06/18/2021 Covid-19, Mrna, Lnp-s, Pf, B ivalent Booster, 30 Mcg, IM, 12 yrs and above ([employer]oov) 12/17/2021 Pneumococcal Conjugate Vacc, 13 Valent (Prevnar) [...] Progress Notes * Kim Kong MD - 06/02/2022 11:10 AM EDT SUBJECTIVE: History of Present Illness: Cl Reynolds is a 81 year old male seen today for follow up - partial skin check. Date Last Appointment: 11/25/2021 (in office), Visit date not found (telemedicine) bx last visit R brow, still scaly at times (AK with adnexal involvement). 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 Indications: pm, thursday (Patientnot taking: Reported on 02/18/2022) MULTI-VITAMIN [...] X 4 MM INJECT 4 X DAY Tretinoin 0.05 % External Cream (Retin-A) APPLY [...] 0.5 Tablets before bedtime. 90 Tablet 1 No current facility-administered medications for this visit. ALLERG IES: Acetaminophen, Aspirin, Cholestyramine, Lipitor [atorvastatin calcium], Niacin, Simvastatin, and Zetia [ezetimibe] OBJECTIVE: GEN: Healthy, alert, no distress, appears oriented, pleasant and cooperative. SKIN: Detailed exam of hair, face including lids and lips, neck, bilateral upper ext. (arm, hand, fingers) and palpation of scalp completed and are normal except: 1. Head/neck - scars 2. R lateral and mid brow, L lateral brow, vertex - keratotic pink patches with surrounding erythema Head/neck LN unremarkable ASSESS MENT/PLAN: 1. Scars - Hx NMSC - no evidence of recurrence Discussed sun protection with patient including proper use of sunscreens and protective clothing. ABCDs explained. 2. AKs and likely irritant reaction with tretinoin - ok to con't tretinoin 0.05% cream mixed with emollient each night, sunscreen daily, pt currently defers Efudex and PDT, *consider in future, perhaps Efudex/dovonex shortterm treatments. Cryosurgery explained to the patient, verbal consent obtained, patient, site and procedure verified, time-out called, and then cryotherapy was performed with Liquid Nitrogen via cryo spray unit to 4 lesions. Location noted in physical exam. Post op course explained. Follow-up: 6 months There were no barriers tolearning and no other pain was related to today's visit. The patient and/or person accompanying patient demonstrates understanding of the visit and treatment. Kim Kong MD 06/02/2022 11:10 AM documented in this encounter Nursing Notes * Patricia Daly LPN - 06/02/2022 11:01 AM EDT Patient identified by name and date of . Do you have any concerns about pain management for today's visit? No Living Will or Advance Directive for Health Care as noted on problem list. [facility] is a way you can talk to your provider online through e-mail. Would you like to sign up? I can activate it for you? ALREADY ACTIVE Chief Complaint Patient presents with Skin Check Pt here for full body skin check. No new concerns. documented in this encounter Plan of Treatment Upcoming Encounters Date Type Specialty Care Team Description 08/12/2022 Office Visit Family Medicine Smith Orozco MD [address] [place] [address] [place] [address] 08/26/2022 Office Visit Cardiology Alcon Lott PADannyC [address] [place] [address] 12/17/2022 Office Visit Dermatology Kim Kong MD [address] [facility] [place] [address] Health Maintenance Due Date Last Done Comments [...] this encounter Medical Devices Implanted Type Area Silk Screen Frame Assembler Device Identifier Shelf Expiration Date Model / Serial / Lot Band Ankur 225-241 - [id number] Implanted:Qty: 1 on 12/26/2010 at OR [facility] [place] Chest [employer] 225-241 / / [id number] Lens Intraoc 17.5 - [id number] - [id number] Implanted:Qty: 1 on 02/07/2019 by Quincy Paiz MD at OR [facility] Right: Eye [employer]CH [employer] LOMB 08/14/2023 [id number] / [id number] / [id number] Lens Intraoc 17.0 - [id number] - [id number] Implanted:Qty: 1 on 03/01/2019 by Quincy Paiz MD at OR [facility] Left: Eye BAUSCH & LOMB 09/12/2022 [id number] / [id number] / [id number] documented as of this encounter Visit Diagnoses Diagnosis Scar- Primary Scar condition and fibrosis of skin Hx of actinic keratosis Personal history of diseases of skin and subcutaneous tissue Hx of nonmelanoma skin cancer Personal history of other malignant neoplasm of skin AK (actinic keratosis) Actinic keratosis documented in this encounter Advance Directives Latest Code Status on File Code Status Date Activated Date Inactivated Comments Full Code 12/26/2010 11:49 AM 12/30/2010 3:24 PM Th is order reflects the patients wishes and were consensually agreed upon. Care Teams Alteration Hand Relationship Specialty Start Date End Date Smith Orozco MD [address] [place] [address] [place] [address] PCP - General Family Medicine 08/03/18 documented as of this encounter
--- OUTSIDE RECORDS SUMMARY | 2022-11-16 13:08 | External Medical Summary | Summary of Care ---
Author Name Unknown Organization [place] [address] Care Team Providers Care Product Representative Name Role Phone Smith Orozco MD Primary Care Provider Encounter Details Date Type Department Care Team Description 03/04/2022 Orders Only Family Medicine [address] [phone] Smith Orozco MD [address] [place], [place] [address] [address] Allergies Active Allergy Reactions Severity Noted Date Comments Acetaminophen Renal complications 04/27/2009 Aspirin 08/13/2000 Stomach pain Cholestyramine 08/13/2000 Kidney pain Atorvastatin Calcium 04/28/2007 cramping Niacin Muscle pain 07/22/2007 Simvastatin Hives 08/13/2000 Ezetimibe 04/28/2007 Cramping ankles, turned feet inward documented as of this encounter (statuses as of 03/04/2022) Medications Medication Sig Dispensed Refills Start Date [...] hemoglobin A1c goal of less than 8.0% ([facility]) USE ONE TEST STRIP TO TEST BLOOD SUGAR LEVELS TWICE A DAY 200 Strip 5 11/11/2019 Active OneTouch UltraSoft Lancets MISCIndications:Type 2 diabetes mellitus with hemoglobin A1c goal of less than 8.0% ([facility]) USE ONE LANCET TO TEST [...] less than 140/90,Old [place] (myocardial infarction) Take by mouth 1 Tablet in the morning. 90 Tablet 3 05/10/2021 Active Praluent 75 MG/ML Subcutaneous Solution Auto-injector (Alirocumab)Indicati ons:Dyslipidemia, goal LDL below 70,Statin intolerance,Atherosc lerosis of [place] coronary artery of [place] heart without angina pectoris,Old [place] (myocardial infarction) Inject under the skin 75 [...] 320 MG Oral Tablet (Diovan)Indications: Atherosclerosis of [place] coronary artery of [place] heart without angina pectoris,Primary hypertension Take by [...] as of this encounter (statuses as of 03/04/2022) Active Problems Problem Noted Date Carpal tunnel [...] to patient at prior appointment. Atherosclerosis of [place] co ronary artery of [place] heart without angina pectoris 11/30/2001 GENERAL OSTEOARTHROSIS Multiple pulmonary nodules Complex renal cyst Overview: 3.8 cm; L Old [place] (myocardial infarction) documented as of this encounter (statuses as of 03/04/2022) Resolved Problems Problem Noted Date Resolved Date Genomics Cardio Research Other*[id number] 201004/22/2016 Overview: Study Titile: Genomics Markers for Patients with Cardiovascular Disease Project # [id number] PI: Amalia Kingsley MD Please call [phone] with study related questions HTN, goal below [...] as of this encounter (statuses as of 03/04/2022) Immunizations Name Administration Dates Next Due COVID-19 mRNA, LNP-s, No Pre serve, 2-Dose Series ([employer]) 01/09/2021,06/08/2020,05/18/2020 COVID-19, LNP-s, No Preserve , Johann-sucrose, Ages 12+ (Pfizer) 06/18/2021 Covid-19, Mrna, Lnp-s, Pf, B ivalent Booster, 30 Mcg, IM, 12 yrs and above ([employer]) 12/17/2021 Pneumococcal Conjugate Vacc, 13 Valent (Prevnar) [...] Specialty Care Team Description 05/23/2022 Pharmacy Cardiology [facility] Cardiology [facility] [address] [place] [address] 06/02/2022 Office Visit Dermatology Kim Kong MD [address] [place], [place] [address] [address] 08/12/2022 Office Visit Family Medicine Smith Orozco MD [address] [place] [address] [place] [address] 08/26/2022 Office Visit Cardiology Alcon Lott PA-C [address] [place] [address] Health Maintenance Due Date Last Done Comments Depression Screening, Annual for Pts 12 and Over 08/29/2020 08/30/2019 Yearly B-12 07/12/2021 07/12/2020, 08/14, 08/19/2018, Additional history exists DIABETES-EYE EXAM 03/28/2022 03/28/2021, , 11/09/2018, Additional history exists Alb / Creat Ratio 05/20/2022 05/20/2021, , 03/01/2020, Additional history exists DIABETES-HGBA1C EVERY 6 MONTHS 06/01/2022 12/02/2021, 05/20/2021, 02/25/2021, Additional history exists DTaP,Tdap,and Td Vaccines [...] this encounter Medical Devices Implanted Type Area Trim Die Maker Device Identifier Shelf Expiration Date Model / Serial / Lot Band Ankur 225-241 - [id number] Implanted:Qty: 1 on 12/26/2010 at [place] [facility] Chest [employer] 225-241 / / [id number] Lens Intraoc 17.5 - [id number] - [id number] Implanted:Qty: 1 on 02/07/2019 by Quincy Paiz MD at OR [facility] Right: Eye BA[employer]CH [employer]OMB 08/14/2023 [id number] / [id number] / [id number] Lens Intraoc 17.0 - [id number] - [id number] Implanted:Qty: 1 on 03/01/2019 by Quincy Paiz MD at OR [facility] Left: Eye BAUSCH & LOMB 09/12/2022 [id number] / [id number] / [id number] documented as of this encounter Procedures Procedure Name Priority Date/Time Associated Diagnosis Comments CHEMISTRY-OUTSIDE Routine 12/02/2021 documented in this encounter Results * (ABNORMAL) CHEMISTRY-OUTSIDE (12/02/2021) CREATININE-OUTSID E LAB 1.24 0.6 - 1.4 MG/DL OUTSIDE LAB (SEE SCANNED REPORT) EGFR-OUTSIDE LAB 54.2 ML/MIN OUT SIDE LAB (SEE SCANNED REPORT) POTASSIUM-OUTSIDE LAB 4.2 3.5 - 5.1 MMOL/L OUTSIDE LAB (SEE SCANNED REPORT) GLUCOSE-OUTSIDE LAB 165(A) 70 - 99 MG/DL OUTSIDE LAB (SEE SCANNED REPORT) HOURS FASTING OUTSID E LAB (SEE SCANNED REPORT) TRIGLYCERIDES-OUT SIDE LAB 111 0 - 150 MG/DL OUTSIDE LAB (SEE SCANNED REPORT) CHOLESTEROL-OUTSI DE LAB OUTSIDE LAB (SEE SCANNED REPORT) HDL-OUTSIDE LAB OUTS GAVI LAB (SEE SCANNED REPORT) CHOL/HDL RATIO-OUTSIDE LAB OUTSIDE LA B (SEE SCANNED REPORT) LDL (CALCULATED)-OUTS GAVI LAB OUTSIDE LAB (SEE SCANNED REPORT) LDL (DIRECT MEASURE)-OUTSIDE LAB OUTSIDE LAB (SEE SCANNED REPORT) HEMOGLOBIN, H1V-RVBNXLA LAB 7.1(A) 4.5 - 5.6 % OUTSIDE LAB (SEE SCANNED REPORT) PHOSPHORUS-OUTSID E LAB OUTSIDE LAB (SEE SCANNED REPORT) PTH-OUTSIDE LAB OUTS GAVI LAB (SEE SCANNED REPORT) MICROALBUMIN RATIO-OUTSIDE LAB OUTSIDE LA B (SEE SCANNED REPORT) PROTEIN, UA-OUTSIDE LAB OUTSIDE LAB (SEE SCANNED REPORT) HEMOGLOBIN-OUTSID E LAB OUTSIDE LAB (SEE SCANNED REPORT) CHEMISTRY COMMENT-OUTSIDE LAB OUTSIDE LAB (SEE SCANNED REPORT) Comment:SEE SCAN: CMP, HGB A 1C, TRIGLYCERIDE (05/20/21), VIT B12 12/02/2021 History Per Patient LABORATORY OUTSIDE LAB (SEE SCANNED REPORT) documented in this encounter Advance Directives Latest Code Status on File Code Status Date Activated Date Inactivated Comments Full Code 12/26/2010 11:49 AM 12/30/2010 3:24 PM Th is order reflects the patients wishes and were consensually agreed upon. Care Teams Product Representative Relationship Specialty Start Date End Date Smith Orozco MD [address] [place] [address] [place] [id number] PCP - General Family Medicine 08/03/18 documented as of this encounter
--- OUTSIDE RECORDS SUMMARY | 2022-11-16 13:08 | External Medical Summary | Summary of Care ---
Author Name Unknown Organization [facility] Address [address] [facility] [place] [address] Phone [phone] Care Team Providers Care Terminal Manager Name Role Phone Smith Danielle MD Primary Care Provider Reason for Visit * Reason Comments eRx-Medication Refill Encounter Details Date Type Department Care Team Description 07/19/2022 Refill Family Medicine [address] [phone] Smith Danielle MD [address] [place], [place] [address] [address] Type 2 diabetes mellitus with diabetic nephropathy (HCC); Type 2 diabetes mellitus with hemoglobin A1c goal of less than 8.0% (HCC); PEPTIC ULCER NOS Allergies Active Allergy Reactions Severity Noted Date Comments Acetaminophen Renal complications 04/27/2009 Aspirin 08/13/2000 Stomach pain Cholestyramine 08/13/2000 Kidney pain Atorvastatin Calcium 04/28/2007 cramping Niacin Muscle pain 07/22/2007 Simvastatin Hives 08/13/2000 Ezetimibe 04/28/2007 Cramping ankles, turned feet inward documented as of this encounter (statuses as of 07/20/2022) Medications Medication Sig Dispensed Refills Start Date End Date Status GAVI 180 MG PO TABSIndications:All ergic rhinitis One pill by mouth once a day for allergies 30 5 0 Active Additional Information Patient taking differently:Oral,Indications: as needed, Reported on 02/18/2022 MAGNESIUM OXIDE 200 MG PO TABSIndications:Chief Of Hospital Medicine mp in limb one tablet twice a day 60 Tab 5 1 Active SB LOW DOSE ASA EC 81 MG PO TBECIndications:pmo , thursday Take by mouth. Indications: pmonday, thursday 0 Active MULTI-VITAMIN PO TABS one pill each day 0 Active ONETOUCH ULTRA STRPIndications:Typ e 2 diabetes mellitus with hemoglobin A1c goal of less than 8.0% ([facility]) USE ONE TEST STRIP TO TEST BLOOD SUGAR LEVELS TWICE A DAY 200 Strip 5 0 Active OneTouch UltraSoft Lancets MISCIndications:Typ e 2 diabetes mellitus with hemoglobin A1c goal of less than 8.0% ([facility]) USE ONE LANCET TO [...] A1c goal of less than 8.0% ([facility]),Type 2 diabetes mellitus with stage 2 chronic kidney disease, without long-term current use of insulin (HCC),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 ([facility]) Take 1 Tablet (25 mg) by mouth in the morning. 90 Tablet 1 2 Active Isosorbide Mononitrate ER 60 MG Oral Tablet Extended Release 24 Hour (Imdur) TAKE 1 TABLET BY MOUTH EVERY DAY IN THE MORNING 90 Tablet 3 3 Active Praluent 75 MG/ML Subcutaneous Solution Auto-injector (Alirocumab)Indicat ions:Dyslipidemia, goal LDL below 70,Statin intolerance,Atheros clerosis of [place] coronary artery of [place] heart without angina pectoris,[place] (myocardial infarction) INJECT UNDER THE SKIN 75 MG EVERY 14 DAYS . 6 mL 3 3 Active amLODIPine Besylate 2.5 MG Oral Tablet (Norvasc)Indication s:Essential hypertension with goal blood pressure less than 140/90,Old [place] (myocardial infarction) Take 1 Tablet by mouth in the morning. 90 Tablet 3 3 Active Valsartan 320 MG Oral Tablet (Diovan)Indications :Atherosclerosis of [place] coronary artery of [place] heart without angina pectoris,Primary hypertension Take 0.5 [...] THE MORNING 90 Capsule 1 3 Active Omeprazole 20 MG Oral Capsule Delayed Release (PriLOSEC)Indicatio ns:Peptic ulcer TAKE BY MOUTH 1 CAPSULE IN THE MORNING. 90 Capsule 1 2 07/21/19 23 Discontinued metFORMIN HCl 1000 MG Oral Tablet (Glucophage)Indicat ions:Type 2 diabetes mellitus with diabetic nephropathy (HCC),Type 2 diabetes mellitus with hemoglobin A1c goal of less than 8.0% (HCC) TAKE 1 TABLET BY MOUTH TWICE A DAY WITH BREAKFAST AND DINNER 180 Tablet 1 2 07/21/19 23 Discontinued documented as of this encounter (statuses as of 07/20/2022) Active Problems Problem Noted Date Carpal tunnel [...] to patient at prior appointment. Atherosclerosis of [place] co ronary artery of [place] heart without angina pectoris 11/30/2001 GENERAL OSTEOARTHROSIS Multiple pulmonary nodules Complex renal cyst Overview: 3.8 cm; L [place] (myocardial infarction) documented as of this encounter (statuses as of 07/20/2022) Resolved Problems Problem Noted Date Resolved Date [employer] Other*[id number] 201004/22/2016 Overview: Study Titile: Genomics Markers for Patients with Cardiovascular Disease Project # [id number] PI: Amalia Kingsley MD Please call [phone] with study related questions HTN, goal below [...] as of this encounter (statuses as of 07/20/2022) Immunizations Name Administration Dates Next Due COVID-19 mRNA, LNP-s, No Pre serve, 2-Dose Series (StatsMix) 01/09/2021,06/08/2020,05/18/2020 COVID-19, LNP-s, No Preserve , Johann-sucrose, Ages 12+ (Pfizer) 06/18/2021 Covid-19, Mrna, Lnp-s, Pf, B ivalent Booster, 30 Mcg, IM, 12 yrs and above (StatsMix) 12/17/2021 Pneumococcal Conjugate Vacc, 13 Valent (Prevnar) [...] encounter Miscellaneous Notes * Telephone Encounter - William Thompson, [facility] - 07/20/2022 7:29 PM EDT Signed Prescriptions: Disp Refills metFORMIN HCl 1000 MG Oral Tablet (Glucoph*180 Ta*1 Sig: TAKE 1 TABLET BY MOUTH TWICE A DAY WITH BREAKFAST AND DINNERAuthorizing Provider: SMITH DANIELLEUser: WILLIAM THOMPSON Omeprazole 20 MG Oral Capsule Delayed Rele*90 Cap*1 Sig: TAKE 1 CAPSULE BY MOUTH EVERY DAY IN THE MORNINGAuthorizing Provider: SMITH DANIELLE User: WILLIAM THOMPSON documented in this encounter Plan of Treatment Upcoming Encounters Date Type Specialty Care Team Description 07/21/2022 Office Visit Dermatology Kim Kong MD [address] [facility] [place] [address] 08/12/2022 Office Visit Family Medicine Smith Danielle MD [address] [place] [address] [place] [address] 10/17/2022 Office Visit Cardiology Cecille Eldridge CRNP [address] [place] [phone] 12/17/2022 Office Visit Dermatology Kim Kong MD [address] [facility] [address] Health Maintenance Due Date Last Done Comments [...] this encounter Medical Devices Implanted Type Area Drug Abuse Program Coordinator Device Identifier Shelf Expiration Date Model / Serial / Lot Band [facility] 225-241 - [id number] Implanted:Qty: 1 on 12/26/2010 at OR [facility] [place] Chest [employer] 225-241 / / [id number] Lens Intraoc 17.5 - [id number] - [id number] Implanted:Qty: 1 on 02/07/2019 by Quincy Paiz MD at OR [facility] Right: Eye [employer] 08/14/2023 [id number] / [id number] / [id number] Lens Intraoc 17.0 - [id number] - [id number] Implanted:Qty: 1 on 03/01/2019 by Quincy Paiz MD at OR [facility] Left: Eye [employer] 09/12/2022 [id number] / [id number] / [id number] documented as of this encounter Visit Diagnoses Diagnosis Type 2 diabetes mellitus with diabetic nephropathy (HCC) Type II or unspecified type diabetes mellitus with renal manifestations, not stated as uncontrolled Type 2 diabetes mellitus with hemoglobin A1c goal of less than 8.0% (HCC) PEPTIC ULCER NOS Peptic ulcer, unspecified site, unspecified as acute or chronic, without mention of hemorrhage, perforation, or obstruction documented in this encounter Advance Directives Latest Code Status on File Code Status Date Activated Date Inactivated Comments Full Code 12/26/2010 11:49 AM 12/30/2010 3:24 PM Th is order reflects the patients wishes and were consensually agreed upon. Care Teams Terminal Manager Relationship Specialty Start Date End Date Smith Danielle MD [address] [place] [address] [place] [address] PCP - General Family Medicine 08/03/18 documented as of this encounter
--- OUTSIDE RECORDS SUMMARY | 2022-11-16 13:08 | External Medical Summary | Summary of Care ---
Author Name Unknown Organization [facility] Address [address] [facility] [place] [address] Phone [phone] Care Team Providers Care Union Representative Name Role Phone Smtih Orozco MD Primary Care Provider Reason for Visit * Reason Onset Date Comments Medication Refill 05/12/2022 Encounter Details Date Type Department Care Team Description 05/12/2022 Refill Cardiology [address] [place] [address] Karly Adler PA-C [address] [place] [phone] Essential hypertension with goal blood pressure less than 140/90; 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) Allergies Active Allergy Reactions Severity Noted Date Comments Acetaminophen Renal complications 04/27/2009 Aspirin 08/13/2000 Stomach pain Cholestyramine 08/13/2000 Kidney pain Atorvastatin Calcium 04/28/2007 cramping Niacin Muscle pain 07/22/2007 Simvastatin Hives 08/13/2000 Ezetimibe 04/28/2007 Cramping ankles, turned feet inward documented as of this encounter (statuses as of 05/13/2022) Medications Medication Sig Dispensed Refills Start Date End Date Status GAVI 180 MG PO TABSIndications:All ergic rhinitis One pill by mouth once a day for allergies 30 5 07/23/2009 Active Additional Information Patient taking differently:Oral,Indications: as needed, Reported on 02/18/2022 MAGNESIUM OXIDE 200 MG PO TABSIndications: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 Indications: pmonday, thursday [...] Ac tive Tretinoin 0.05 % External Cream (Retin-A)Indication s:Actinic [...] hemoglobin A1c goal of less than 8.0% ([facility]) TAKE 1 TABLET BY MOUTH TWICE [...] hemoglobin A1c goal of less than 8.0% ([facility]),Type 2 diabetes mellitus with stage 2 chronic kidney disease, without long-term current use of insulin (HCC),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 ([facility]) Take 1 Tablet (25 mg) by mouth in the morning. 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 6 mL 3 05/09/2022 Active amLODIPine Besylate 2.5 MG Oral Tablet (Norvasc)Indication s:Essential hypertension with goal blood pressure less than 140/90,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) Take 1 Tablet by mouth in the morning. 90 Tablet 3 05/13/2022 Active Valsartan 320 MG Oral Tablet (Diovan)Indications :Atherosclerosis of [place] coronary artery of [place] heart without angina pectoris,Primary hypertension Take 0.5 Tablets by mouth in the morning and 0.5 Tablets before bedtime. 90 Tablet 1 05/12/2022 Active amLODIPine Besylate 2.5 MG Oral Tablet (Norvasc)Indication s:Essential hypertension with goal blood pressure less than 140/90,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) Take by mouth 1 Tablet in the morning. 90 Tablet 3 05/10/2021 3 Discontinu ed(Refill) documented as of this encounter (statuses as of 05/13/2022) Active Problems Problem Noted Date Carpal tunnel syndrome, bilateral 11/23/ 2021 Nonrheumatic aortic valve stenosis 12/18 Edema 12/18/2020 [...] to patient at prior appointment. Atherosclerosis of [place] co ronary artery of [place] heart without angina pectoris 11/30/2001 GENERAL OSTEOARTHROSIS Multiple pulmonary nodules Complex renal cyst Overview: 3.8 cm; L 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) documented as of this encounter (statuses as of 05/13/2022) Resolved Problems Problem Noted Date Resolved Date [employer] Cardio Research Other*[id number] 201004/22/2016 Overview: Study Titile: Genomics Markers for Patients with Cardiovascular Disease Project # [id number] PI: Amalia Kingsley MD Please call [phone] with study related questions HTN, goal below [...] 01/24/2002 10/12/2015 Solar lentigo 10/27/2001 04/30/2016 ACUTE [place]; INFERIOR WALL;SUBSEQUENT EPISODE CARE 06/21/2013 HYPERTENSION NOS [...] as of this encounter (statuses as of 05/13/2022) Immunizations Name Administration Dates Next Due COVID-19 mRNA, LNP-s, No Pre serve, 2-Dose Series (Needcheck) 01/09/2021,06/08/2020,05/18/2020 COVID-19, LNP-s, No Preserve , Johann-sucrose, Ages 12+ (Pfizer) 06/18/2021 Covid-19, Mrna, Lnp-s, Pf, B ivalent Booster, 30 Mcg, IM, 12 yrs and above (Needcheck) 12/17/2021 Pneumococcal Conjugate Vacc, 13 Valent (Prevnar) [...] Telephone Encounter - Karly Adler PA-C - 05/13/2022 4:41 PM ESTSigned Prescriptions: Disp Refills amLODIPine Besylate 2.5 MG Oral Tablet (No*90 Tab*3 Sig: Take 1 Tablet by mouth in the morning. Authorizing Provider: KARLY ADLER * Telephone Encounter - Melida Keita LPN - 05/13/2022 10:09 AM ESTPending Prescriptions: Disp Refills amLODIPine Besylate 2.5 MG Oral Tablet (No*90 Tab*3 Sig: Take 1 Tablet by mouth in the morning. * Telephone Encounter - Melida Keita LPN - 05/13/2022 10:05 AM EST Did you pend patient's preferred pharmacy and medication before forwarding?yes Pharmacy: [id number] Pending Prescriptions: Disp Refills amLODIPine Besylate 2.5 MG Oral Tablet (N*90 Tab*3 Sig: Take 1 Tablet by mouth in the morning. Last Visit: 02/18/2022 (in office), Visit date not found (telemedicine) Next Visit: 08/26/2022 If no future appointments scheduled, and last appointment is greater than a year ago, please schedule patient for a follow-up appointment Last date the medication was ordered: 05/10/2021 Is this request for a controlled substance?No [...] Specialty Care Team Description 05/23/2022 Pharmacy Cardiology [facility] Imelda [address] [place] [phone] 06/02/2022 [facility] [address] [facility] [address] 08/12/2022 Office Visit Family Medicine Smith Orozco MD [address] [place] [address] [place] [address] 08/26/2022 Office Visit Cardiology Karly Adler PA-C [address] [place] [phone] Health Maintenance Due Date Last Done Comments Depression Screening, Annual for Pts 12 and Over 08/29/2020 08/30/2019 Yearly B-12 07/12/2021 07/12/2020, 08/14, 08/19/2018, Additional history exists DIABETES-EYE EXAM 03/28/2022 03/28/2021, , 11/09/2018, Additional history exists Albumin/Creatinine Ratio 05/20/202205/20/ 022, 02/25/2021, 03/01/2020, Additional history exists HgA1C 06/01/2022 12/02/2021, 030 09/2021, 02/25/2021, Additional history exists DTaP,Tdap,and Td [...] this encounter Medical Devices Implanted Type Area Speech And Drama Teacher Device Identifier Shelf Expiration Date Model / Serial / Lot Band [facility] 225-241 - [id number] Implanted:Qty: 1 on 12[place]26/[place] [facility] [place] [employer] 225-241 / / [id number] Lens Intraoc 17.5 - [id number] - [id number] Implanted:Qty: 1 on 02/07/2019 by Quincy Paiz MD at OR [facility] Right: Eye [employer] 08/14/2023 [id number] / [id number] / [id number] Lens Intraoc 17.0 - [id number] - [id number] Implanted:Qty: 1 on 03/01/2019 by Quincy Paiz MD at OR [facility] Left: Eye [employer]OM[employer] 09/12/2022 [id number] / [id number] / [id number] documented as of this encounter Visit Diagnoses Diagnosis Essential hypertension with goal blood pressure less than 140/90 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) Old myocardial infarction documented in this encounter Advance Directives Latest Code Status on File Code Status Date Activated Date Inactivated Comments Full Code 12/26/2010 11:49 AM 12/30/2010 3:24 PM Th is order reflects the patients wishes and were consensually agreed upon. Care Teams Union Representative Relationship Specialty Start Date End Date Smith Orozco MD [address] [place] [address] [place] [address] PCP - General Family Medicine 08/03/18 documented as of this encounter
--- OUTSIDE RECORDS SUMMARY | 2022-11-16 13:08 | External Medical Summary | Summary of Care ---
Author Name Unknown Organization [place] [address] Care Team Providers Care Precast Worker Name Role Phone Smith Orozco MD Primary Care Provider + [phone] Reason for Visit * Reason Comments Re-Check Encounter Details Date Type Department Care Team Description 02/10/2022 Office Visit Family Medicine [address] [phone] Smith Orozco MD [address] [place] [address] [place] [address] Type 2 diabetes mellitus with hemoglobin A1c goal of less than 8.0% ([facility])*; Primary hypertension; Ischemic cardiomyopathy; 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); Type 2 diabetes mellitus with stage 2 chronic kidney disease, without long-term current use of insulin ([facility]); Nonrheumatic aortic valve stenosis; Statin intolerance; Dyslipidemia, goal LDL below 70; 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 ([facility]); BPH with obstruction/lower urinary tract symptoms Allergies Active Allergy Reactions Severity Noted Date Comments Acetaminophen Renal complications 04/27/2009 Aspirin 08/13/2000 Stomach pain Cholestyramine 08/13/2000 Kidney pain Atorvastatin Calcium 04/28/2007 cramping Niacin Muscle pain 07/22/2007 Simvastatin Hives 08/13/2000 Ezetimibe 04/28/2007 Cramping ankles, turned feet inward documented as of this encounter (statuses as of 02/10/2022) Medications Medication Sig Dispensed Refills Start Date End Date Status GAVI 180 MG PO TABSIndications:All ergic rhinitis One pill by mouth once a day for allergies 30 5 07/23/2009 Active Additional Information Patient taking differently:Oral,Indications: as needed, Reported on 02/02/2019 MAGNESIUM OXIDE 200 MG PO TABSIndications:Painter Interior Finish mp in limb one tablet twice a [...] tive amLODIPine Besylate 2.5 MG Oral Tablet (Norvasc)Indication s:Essential hypertension with goal blood pressure less than 140/90,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) Take by mouth 1 Tablet in the morning. 90 Tablet 3 05/10/2021 Active Praluent 75 MG/ML Subcutaneous Solution Auto-injector (Alirocumab)Indicat ions:Dyslipidemia, goal LDL below 70,Statin intolerance,Atheros clerosis of [place] coronary artery of [place] heart without angina pectoris,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) Inject under the skin 75 mg every 14 days . 2 mL 11 06/14/2021 Active Tretinoin 0.05 % External Cream (Retin-A)Indication s:Actinic keratosis APPLY NIGHTLY TO FACE DIRECTED,CAN MIX WITH PONDS 45 g 5 08/06/2021 Active FreeStyle Devi 2 Sensor Use as directed . 0 Active Terazosin HCl 5 MG Oral Capsule (Hytrin)Indications :Ischemic cardiomyopathy Take by mouth 1 Capsule in the morning. 90 Capsule 3 11/18/2021 Active Valsartan 320 MG Oral Tablet (Diovan)Indications :Atherosclerosis of [place] coronary artery of [place] heart without angina pectoris,Primary hypertension Take by mouth 0.5 Tablets in the morning AND 0.5 Tablets before bedtime. 90 Tablet 1 11/20/2021 Active Furosemide 20 MG Oral Tablet (Lasix)Indications: [...] 1 02/10/2022 Active Jardiance 25 MG Oral Tablet Take by mouth 1 Tablet in the morning. 90 Tablet 1 08/06/2021 2 Discontinu ed(Refill) Finasteride 5 MG Oral Tablet (Proscar)Indication s:BPH with obstruction/lower urinary tract symptoms TAKE 1 TABLET BY MOUTH EVERY DAY 90 Tablet 1 08/19/2021 2 Discontinu ed(Refill) documented as of this encounter (statuses as of 02/10/2022) Active Problems Problem Noted Date Carpal tunnel [...] to patient at prior appointment. Atherosclerosis of [place] co ronary artery of [place] heart without angina pectoris 11/30/2001 GENERAL OSTEOARTHROSIS Multiple pulmonary nodules Complex renal cyst Overview: 3.8 cm; L 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) documented as of this encounter (statuses as of 02/10/2022) Resolved Problems Problem Noted Date Resolved Date [employer] Other*[id number] 201004/22/2016 Overview: Study Titile: Genomics Markers for Patients with Cardiovascular Disease Project # [id number] PI: Baljinder Hung MD Please call [phone] with study related questions HTN, goal below [...] as of this encounter (statuses as of 02/10/2022) Immunizations Name Administration Dates Next Due COVID-19 mRNA, LNP-s, No Pre serve, 2-Dose Series ([employer] 01/09/2021,06/08/2020,05/18/2020 COVID-19, LNP-s, No Preserve , Johann-sucrose, Ages 12+ (Pfizer) 06/18/2021 Covid-19, Mrna, Lnp-s, Pf, B ivalent Booster, 30 Mcg, IM, 12 yrs and above ([employer] 12/17/2021 Pneumococcal Conjugate Vacc, 13 Valent (Prevnar) [...] Sign Reading Time Taken Comments Blood Pressure 136/70 02/10/2022 9:07 AM EST Pulse 74 02/10/2022 9:07 AM EST Temperature 36.4 C (97.6 F) 02/10/2022 9:07 AM ES T Respiratory Rate 16 02/10/2022 9:07 AM EST Oxygen Saturation - - Inhaled Oxygen Concentration - - Weight 65.4 kg (144 lb 2 oz) 02/10/2022 9:07 AM EST Height - - Body Mass Index 23.98 05/17/2021 12:38 PM EST documented in this encounter Progress Notes * Smith Orozco MD - 02/10/2022 9:11 AM EST Cl brings labs from [facility]. He follows with endocrine there, last a1c 7.1. He sees cardiology here. No complaints of headache, trouble with vision or hearing. Eating well, with no bowel or bladder complaints. Denies nausea, vomiting, or diarrhea. Denies fevers, chills or sweats. Denies chest pain or palpitations. Denies shortness of breath, PND, or orthopnea. No skin rashes or breakdown. No changes in mentation. No syncope or falls. Some days the legs are a little puffy at the end of the day. All others negative other than those noted in HPI. Health Maintenance addressed. Had the Coronovirus vaccine, 5 doses, had flu shot, Shingrix, the pneumonia shots Past Medical History: Diagnosis Date Acute AK, inferior wall, subsequent episode of care ([facility]) 1994 BPH with obstruction/lower urinary tract symptoms 11/01/2009 Carpal tunnel syndrome, bilateral 02/05/2021 CKD (chronic kidney disease) stage 2, GFR 60-89 ml/min Coronary atherosclerosis of [place] coronary artery 11/30/2001 DM type 2, goal A1c below 7 Elevated PSA 09/30/2017 PSA 7.15 Examination of eyes and vision 09/20/2013 no diabetic or hypertensive retinopathy Generalized osteoarthritis HTN, goal below 140/90 Mixed dyslipidemia Multiple pulmonary nodules 03/20/2013 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) 1994 Peptic ulcer Renal mass, left 2014 3.8 cm Type 2 diabetes mellitus with hemoglobin A1c goal of less than 8.0% ([facility]) 01/11/2009 Per Diabetes Taxonomy. ICD-10 update of inactive term Past Surgical History: Procedure Laterality Date CABG, ARTERIAL, SINGLE 12/26/2010 CORONARY ARTERY BYPASS GRAFT USING ARTERY 1 GRAFT performed by BERTHA SENIOR at [place] [facility] [place] CABG, ARTERY-VEIN, THREE 12/26/2010 CORONARY ARTERY BYPASS GRAFT ARTERIAL AND VENOUS 3 GRAFTS performed by BERTHA SENIOR at OR [facility] [place] CORONARY ANGIOGRAPHY W/LEFT HEART CATH 12/03/2010 CORONARY ANGIOGRAPHY W/LEFT HEART CATH performed by BALJINDER HUNG at [facility]ARDIAC [facility] [place] CT CHEST W CONTRAST 07/11/2013 non calcified [...] VEIN performed by BERTHA SENIOR at OR [facility] [facility] INFORMATION 03/16/1994 cardiac cath REMOVE CATARACT, INSERT LENS PROSTH Right 02/07/2019 right EXTRACAPSULAR CATARACT REMOVAL WITH INTRAOCULAR LENS performed by Quincy Paiz MD at OR [facility] REMOVE CATARACT, INSERT LENS PROSTH Left 03/01/2019 left EXTRACAPSULAR CATARACT REMOVAL WITH INTRAOCULAR LENS performed by Quincy Paiz MD at OR [facility] REPAIR INITIAL INGUINAL HERNIA REDUCIBLE AGE 5 [...] Concern Not on file Social History Narrative [employer] 2 years Social Determinants of Health Financial Resource Strain: Not on file Food Insecurity: Not on file Transportation Needs: Not on file Physical Activity: Not on file Stress: Not on file Social Connections: Not on file Intimate Partner Violence: Not on file Housing Stability: Not on file Current Outpatient Medications Medication Sig Dispense Refill Vitamin B 12 500 MCG Oral Tablet Take by mouth. GAVI 180 MG PO TABS One pill by mouth once a day for allergies (Patient taking differently: Take by mouth. Indications: as needed) 30 5 MAGNESIUM OXIDE 200 MG PO TABS one tablet twice a day 60 Tab 5 SB LOW DOSE ASA EC 81 MG PO TBEC Take by mouth. Indications: pmonday, day thursday MULTI-VITAMIN PO TABS one pill each [...] every 14 days . 2 mL 11 Jardiance 25 MG Oral Tablet Take by mouth 1 Tablet in the morning. 90 Tablet 1 Tretinoin 0.05 % External Cream (Retin-A) APPLY NIGHTLY TO FACE DIRECTED,CAN MIX WITH PONDS 45 g 5 FreeStyle Devi 2 Sensor Use as directed . Finasteride 5 MG Oral Tablet (Proscar) TAKE 1 TABLET BY MOUTH EVERY DAY 90 Tablet 1 Terazosin HCl 5 MG Oral Capsule (Hytrin) [...] WITH BREAKFAST AND DINNER 180 Tablet 1 No current facility-administered medications for this visit. Immunization History Administered Date(s) Administered COVID-19 mRNA, LNP-s, No Preserve, 2-Dose Series (Pfizer) 05/18/2020, 06/08/2020, 01/09/2021 COVID-19, LNP-s, No Preserve, [...] 11/15/2011 Zoster Vaccine Recombinant (Shingrix) 03/22/2019, 05/25/2019 O: Blood pressure 136/70, pulse 74, temperature 36.4 C (97.6 F), temperature source Tympanic, resp. rate 16, weight 65.4 kg (144 lb 2 oz). General appearance: well developed, well nourished [...] normal. PMI not obviously displaced. Heart regular, with a systolic murmur, no gallops, clicks or rubs. No CVA tenderness. No calf swelling or tenderness. No pedal edema. No skin rashes. Extremities unremarkable. A: Type 2 diabetes mellitus with hemoglobin A1c goal of less than 8.0% ([facility]) (Primary) Primary hypertension Ischemic cardiomyopathy 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) Type 2 diabetes mellitus with stage 2 chronic kidney disease, without long-term current use of insulin (HCC) Nonrheumatic aortic valve stenosis Statin intolerance Dyslipidemia, goal LDL below 70 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 ([facility]) BPH with obstruction/lower urinary tract symptoms - Finasteride 5 MG Oral Tablet (Proscar); Take 1 Tablet (5 mg) by mouth in the morning. Other orders - Jardiance 25 MG Oral Tablet; Take 1 Tablet (25 mg) by mouth in the morning. Continue other meds as before. Follow Up: Return in about 6 months (around 08/10/2022) for Clinic Visit. | For: Clinic Visit documented in this encounter Nursing Notes * Komal Shearer LPN - 02/10/2022 9:05 AM EST 6 month recheck documented in this encounter Plan of Treatment Upcoming Encounters Date Type Specialty Care Team Description 02/18/2022 Office Visit Cardiology Alcon Lott PA-C [address] [place] [address] 05/23/2022 Pharmacy Cardiology [facility] Imelda [address] [place] [address] 06/02/2022 Office Visit Dermatology Kim Kong MD [address] [place] [address] 08/12/2022 Office Visit Family Medicine Smith Orozco MD [address] [place] [address] [place] [address] Health Maintenance Due Date [...] this encounter Medical Devices Implanted Type Area Software Test Specialist Device Identifier Shelf Expiration Date Model / Serial / Lot Band Ankur 225-241 - [id number] Implanted:Qty: 1 on 12/26/2010 at [place] [facility] [place] Chest [employer] 225-241 / / [id number] Lens Intraoc 17.5 - [id number] - [id number] Implanted:Qty: 1 on 02/07/2019 by uQincy Paiz MD at OR [facility] Right: Eye [employer] 08/14/2023 [id number] / [id number] / [id number] Lens Intraoc 17.0 - [id number] - [id number] Implanted:Qty: 1 on 03/01/2019 by Quincy Paiz MD at OR [facility] Left: Eye [employer]OMB 09/12/2022 [id number] / [id number] / [id number] documented as of this encounter Visit Diagnoses Diagnosis Type 2 diabetes mellitus with hemoglobin A1c goal of less than 8.0% (HCC)- Primary Primary hypertension Unspecified essential hypertension Ischemic cardiomyopathy Other specified forms of chronic ischemic heart disease 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) Old myocardial infarction Type 2 diabetes mellitus with stage 2 chronic kidney disease, without long-term current use of insulin (HCC) Nonrheumatic aortic valve stenosis Aortic valve disorders Statin intolerance Other drug allergy Dyslipidemia, goal LDL below 70 Other and unspecified hyperlipidemia 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) BPH with obstruction/lower urinary tract symptoms Hypertrophy of prostate with urinary obstruction and other lower urinary tract symptoms (LUTS) documented in this encounter Advance Directives Latest Code Status on File Code Status Date Activated Date Inactivated Comments Full Code 12/26/2010 11:49 AM 12/30/2010 3:24 PM Th is order reflects the patients wishes and were consensually agreed upon. Care Teams Precast Worker Relationship Specialty Start Date End Date Smith Orozco MD [address] [place] [address] [place] [address] PCP - General Family Medicine 08/03/18 documented as of this encounter"
--- OUTSIDE RECORDS SUMMARY | 2022-11-16 13:08 | External Medical Summary | Summary of Care ---
Author Name Unknown Organization [place] [address] Care Team Providers Care Nurse Wound Care Name Role Phone Suzette Danielle MD Primary Care Provider Reason for Visit * Reason Onset Date Comments Medication Refill 05/12/2022 Encounter Details Date Type Department Care Team Description 05/12/2022 Refill Family Medicine [address] [phone] Suzette Danielle MD [address] [place], [place] [address] [address] Atherosclerosis of [place] coronary artery of [place] heart without angina pectoris; Primary hypertension Allergies Active Allergy Reactions Severity Noted Date Comments Acetaminophen Renal complications 04/27/2009 Aspirin 08/13/2000 Stomach pain Cholestyramine 08/13/2000 Kidney pain Atorvastatin Calcium 04/28/2007 cramping Niacin Muscle pain 07/22/2007 Simvastatin Hives 08/13/2000 Ezetimibe 04/28/2007 Cramping ankles, turned feet inward documented as of this encounter (statuses as of 05/12/2022) Medications Medication Sig Dispensed Refills Start Date End Date Status GAVI 180 MG PO TABSIndications:All ergic rhinitis One pill by mouth once a day for allergies 30 5 07/23/2009 Active Additional Information Patient taking differently:Oral,Indications: as needed, Reported on 02/18/2022 MAGNESIUM OXIDE 200 MG PO TABSIndications:Manager Battery mp 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 Indications: pmonday, thursday 0 Active MULTI-VITAMIN PO TABS one pill each day 0 Active ONETOUCH ULTRA STRPIndications:Typ e 2 diabetes mellitus with hemoglobin A1c goal of less than 8.0% ([facility]) USE ONE TEST STRIP TO TEST BLOOD [...] less than 140/90,Old [place] (myocardial infarction) Take by mouth 1 Tablet in the morning. 90 Tablet 3 05/10/2021 Active Tretinoin 0.05 % External Cream (Retin-A)Indication [...] goal LDL below 70,Statin intolerance,Atheros clerosis of [place] coronary artery of [place] heart without angina pectoris,Old [place] (myocardial infarction) INJECT UNDER THE SKIN 75 MG EVERY 14 DAYS . 6 mL 3 05/09/2022 Active Valsartan 320 MG Oral Tablet (Diovan)Indications :Atherosclerosis of [place] coronary artery of [place] heart without angina pectoris,Primary hypertension Take 0.5 Tablets by mouth in the morning and 0.5 Tablets before bedtime. 90 Tablet 1 05/12/2022 Active Valsartan 320 MG Oral Tablet (Diovan)Indications :Atherosclerosis of [place] coronary artery of [place] heart without angina pectoris,Primary hypertension Take by mouth 0.5 Tablets in the morning AND 0.5 Tablets before bedtime. 90 Tablet 1 11/20/2021 3 Discontinu ed(Refill) documented as of this encounter (statuses as of 05/12/2022) Active Problems Problem Noted Date Carpal tunnel [...] to patient at prior appointment. Atherosclerosis of [place] co ronary artery of [place] heart without angina pectoris 11/30/2001 GENERAL OSTEOARTHROSIS Multiple pulmonary nodules Complex renal cyst Overview: 3.8 cm; L Old [place] (myocardial infarction) documented as of this encounter (statuses as of 05/12/2022) Resolved Problems Problem Noted Date Resolved Date [employer] Card[employer] Research Other*[id number] 201004/22/2016 Overview: Study Titile: Genomics Markers for Patients with Cardiovascular Disease Project # [id number] PI: Amalia Kingsley MD Please call [phone] with study related questions HTN, goal below [...] as of this encounter (statuses as of 05/12/2022) Immunizations Name Administration Dates Next Due COVID-19 mRNA, LNP-s, No Pre serve, 2-Dose Series ([employer]) 01/09/2021,06/08/2020,05/18/2020 COVID-19, LNP-s, No Preserve , Johann-sucrose, Ages 12+ (Pfizer) 06/18/2021 Covid-19, Mrna, Lnp-s, Pf, B ivalent Booster, 30 Mcg, IM, 12 yrs and above ([employer]) 12/17/2021 Pneumococcal Conjugate Vacc, 13 Valent (Prevnar) [...] encounter Miscellaneous Notes * Telephone Encounter - Suzette Danielle MD - 05/12/2022 12:45 PM ESTSigned Prescriptions: Disp Refills Valsartan 320 MG Oral Tablet (Diovan) 90 Tab*1 Sig: Take 0.5 Tablets by mouth in the morning and 0.5 Tablets before bedtime. Authorizing Provider: SUZETTE DANIELLE * Telephone Encounter - Candy Daugherty RN - 05/12/2022 12:29 PM ESTPending Prescriptions: Disp Refills Valsartan 320 MG Oral Tablet (Diovan) 90 Tab*1 Sig: Take 0.5 Tablets by mouth in the morning and 0.5 Tablets before bedtime. * Telephone Encounter - Candy Daugherty RN - 05/12/2022 12:29 PM EST Pending Prescriptions: Disp Refills Valsartan 320 MG Oral Tablet (Diovan) 90 Tab*1 Sig: Take 0.5 Tablets by mouth in the morning and 0.5 Tablets before bedtime. Last Visit: 02/10/2022 (in office), Visit date not found (telemedicine) Next Visit: 08/12/2022 Last date the medication was ordered: 12/05 Patient Active Problem List Diagnosis Code GENERAL OSTEOARTHROSIS M15.9 Atherosclerosis of [place] coronary artery of [place] heart without angina pectoris I25.10 ADVANCE DIRECTIVE INFORMATION Type 2 diabetes mellitus with hemoglobin A1c goal of less than 8.0% ([facility]) E11.9 DYSLIPIDEMIA, GOAL LDL BELOW 70 E78.5 [...] stage 2 chronic kidney disease and hypertension ([facility]) E11.22, I12.9, N18.2 Old [place] (myocardial infarction) [...] Care Team Description 05/23/2022 Pharmacy Cardiology [facility] Cardiology Imelda [address] [place] [address] 06/02/2022 Office Visit Dermatology Kim Kong MD [address] [place] [address] [place] [address] 08/12/2022 Office Visit Family Medicine Suzette Danielle MD [address] [place] [address] [place] [address] 08/26/2022 Office Visit Cardiology Alcon Lott PA-C [address] [place] [address] Health Maintenance Due Date Last Done Comments [...] this encounter Medical Devices Implanted Type Area Dam Operator Device Identifier Shelf Expiration Date Model / Serial / Lot Band [facility] 225-241 - [id number] Implanted:Qty: 1 on 12/26/2010 at OR [facility] Chest [employer] 225-241 / / [id number] Lens Intraoc 17.5 - [id number] - [id number] Implanted:Qty: 1 on 02/07/2019 by Quincy Paiz MD at OR [facility] Right: Eye [employer] 08/14/2023 [id number] / [id number] / [id number] Lens Intraoc 17.0 - [id number] - [id number] Implanted:Qty: 1 on 03/01/2019 by Quincy Paiz MD at OR [facility] Left: Eye [employer] 09/12/2022 [id number] / [id number] / [id number] documented as of this encounter Visit Diagnoses Diagnosis Atherosclerosis of [place] coronary artery of [place] heart without angina pectoris Primary hypertension Unspecified essential hypertension documented in this encounter Advance Directives Latest Code Status on File Code Status Date Activated Date Inactivated Comments Full Code 12/26/2010 11:49 AM 12/30/2010 3:24 PM Th is order reflects the patients wishes and were consensually agreed upon. Care Teams Nurse Wound Care Relationship Specialty Start Date End Date Suzette Danielle MD [address] [place] [address] [place] [address] PCP - General Family Medicine 08/03/18 documented as of this encounter
--- OUTSIDE RECORDS SUMMARY | 2022-11-16 13:08 | External Medical Summary | Summary of Care ---
Author Name Unknown Organization [facility] Address [address] [facility] [place] [address] Phone [phone] Care Team Providers Care Master Ocean Yacht Name Role Phone Smith Orozco MD Primary Care Provider Reason for Visit * Reason Comments eRx-Medication Refill Encounter Details Date Type Department Care Team Description 05/12/2022 Refill Family Medicine [address] [phone] Smith Orozco MD [address] [place], [place] [address] [address] Atherosclerosis of [place] coronary artery of [place] heart without angina pectoris; Primary hypertension Allergies [...] goal of less than 8.0% ([facility]) USE ONE TEST STRIP TO TEST BLOOD SUGAR LEVELS TWICE A DAY 200 Strip 5 11/11/2019 Active OneTouch UltraSoft Lancets MISCIndications:Type 2 diabetes mellitus with hemoglobin A1c goal of less than 8.0% ([facility]) USE ONE LANCET TO TEST BLOOD SUGAR [...] with goal blood pressure less than 140/90,Old [place] (myocardial infarction) Take by mouth 1 Tablet in the morning. 90 Tablet 3 05/10/2021 Active Tretinoin 0.05 % External Cream (Retin-A)Indications [...] artery of [place] heart without angina pectoris,Old [place] (myocardial infarction) INJECT UNDER THE SKIN 75 MG EVERY 14 DAYS . 6 mL 3 05/09/2022 Active Valsartan 320 MG Oral Tablet (Diovan)Indications: Atherosclerosis of [place] coronary artery of [place] heart without angina pectoris,Primary hypertension Take 0.5 [...] renal cyst Overview: 3.8 cm; L Old [place] (myocardial infarction) documented as of this encounter (statuses as of 05/13/2022) Resolved Problems Problem Noted Date Resolved Date Gen[employer] Cardio Research Other*[id number] 201004/22/2016 Overview: Study Titile: Genomics Markers for Patients with Cardiovascular Disease Project # [id number] PI: Amalia Kingsley MD Please call [phone] with study related questions HTN, goal below [...] 01/24/2002 10/12/2015 Solar lentigo 10/27/2001 04/30/2016 ACUTE NH; INFERIOR WALL;SUBSEQUENT EPISODE CARE 06/21/2013 HYPERTENSION NOS [...] mRNA, LNP-s, No Pre serve, 2-Dose Series ([employer] 01/09/2021,06/08/2020,05/18/2020 COVID-19, LNP-s, No Preserve , Johann-sucrose, Ages 12+ (Pfizer) 06/18/2021 Covid-19, Mrna, Lnp-s, Pf, B ivalent Booster, 30 Mcg, IM, 12 yrs and above ([employer] 12/17/2021 Pneumococcal Conjugate Vacc, 13 Valent [...] encounter Miscellaneous Notes * Telephone Encounter - Han Hernandez [facility] ED - 05/13/2022 11:00 AM EST Refused Prescriptions: Disp Refills Valsartan 320 MG Oral Tablet (Diovan) 90 Tab*1 Sig: TAKE HALF ATABLET IN THE MORNING AND HALF A TABLET AT BEDTIMERefused By: HAN HERNANDEZ for Refusal: Duplicate Request documented in this encounter Plan of Treatment Upcoming Encounters Date Type Specialty Care Team Description 05/23/2022 Pharmacy Cardiology [facility] Cardiology [facility] [address] [facility] [address] [place] [address] 06/02/2022 Office Visit Dermatology Kim Kong MD [address] [place] [address], [place] [address] 08/12/2022 Office Visit Family Medicine Smith Orozco MD [address] [place] [address] [place] [address] 08/26/2022 Office Visit Cardiology Alcon Lott PA-C [address] [place] [address] Health Maintenance Due Date Last Done Comments [...] this encounter Medical Devices Implanted Type Area Clinical Lab Specialist Device Identifier Shelf Expiration Date Model / Serial / Lot Band Ankur 225-241 - [id number] Implanted:Qty: 1 on 12/26/2010 at OR [facility] Chest [employer] 225-241 / / [id number] Lens Intraoc 17.5 - [id number] - [id number] Implanted:Qty: 1 on 02/07/2019 by Quincy Paiz MD at OR [facility] Right: Eye [employer] 08/14/2023 [id number] / [id number] / [id number] Lens Intraoc 17.0 - [id number] - [id number] Implanted:Qty: 1 on 03/01/2019 by Quincy Paiz MD at OR [facility] Left: Eye [employer]OM[employer] 09/12/2022 [id number] / [id number] / [id number] documented as of this encounter Visit Diagnoses Diagnosis Atherosclerosis of [place] coronary artery of [place] heart without angina pectoris Primary hypertension Unspecified essential hypertension documented in this encounter Advance Directives Latest Code Status on File Code Status Date Activated Date Inactivated Comments Full Code 12/26/2010 11:49 AM 12/30/2010 3:24 PM Th is order reflects the patients wishes and were consensually agreed upon. Care Teams Master Ocean Yacht Relationship Specialty Start Date End Date Smith Orozco MD [address] [place] [address] [place] [address] PCP - General Family Medicine 08/03/18 documented as of this encounter
--- OUTSIDE RECORDS SUMMARY | 2022-11-16 13:08 | External Medical Summary | Summary of Care ---
Author Name Unknown Organization [place] [address] Care Team Providers Care Business Development Assistant Name Role Phone Smith Danielle MD Primary Care Provider [phone] Reason for Visit * Reason Comments eRx-Medication Refill Encounter Details Date Type Department Care Team Description 01/08/2022 Refill Family Medicine [address] [place] [phone] Smith Danielle MD [address] [place] [address] [place] [id number] PEPTIC ULCER NOS; Type 2 diabetes mellitus with diabetic nephropathy (HCC); Type 2 diabetes mellitus with hemoglobin A1c goal of less than 8.0% ([facility]) Allergies Active Allergy Reactions Severity Noted Date Comments Acetaminophen Renal complications 04/27/2009 Aspirin 08/13/2000 Stomach pain Cholestyramine 08/13/2000 Kidney pain Atorvastatin Calcium 04/28/2007 cramping Niacin Muscle pain 07/22/2007 Simvastatin Hives 08/13/2000 Ezetimibe 04/28/2007 Cramping ankles, turned feet inward documented as of this encounter (statuses as of 01/08/2022) Medications Medication Sig Dispensed Refills Start Date End Date Status GAVI 180 MG PO TABSIndications:All ergic rhinitis One pill by mouth once a day for allergies 30 5 0 Active Additional Information Patient taking differently: Oral, Indications: as needed, Reported on 02/02/2019 MAGNESIUM OXIDE 200 MG PO TABSIndications: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 Indications: pmonday, thursday 0 Active MULTI-VITAMIN PO TABS one pill each day 0 Active ONETOUCH ULTRA STRPIndications:Typ e 2 diabetes mellitus with hemoglobin A1c goal of less than 8.0% ([facility]) USE ONE TEST STRIP TO [...] with meals. 1 Each 0 1 Active Isosorbide Mononitrate ER 60 MG Oral Tablet Extended Release 24 Hour (Imdur) TAKE 1 TABLET BY MOUTH EVERY MORNING 90 Tablet 3 2 Active BD Pen Needle Ashley 2nd Gen 32G X 4 MM INJECT 4 X DAY 0 2 Active amLODIPine Besylate 2.5 MG Oral Tablet (Norvasc)Indication s:Essential hypertension with goal blood pressure less than 140/90,Old MD (myocardial infarction) Take by mouth 1 Tablet in the morning. 90 Tablet 3 2 Active Praluent 75 MG/ML Subcutaneous Solution Auto-injector (Alirocumab)Indicat ions:Dyslipidemia, goal LDL below 70,Statin intolerance,Atheros clerosis of [place] coronary artery of [place] heart without angina pectoris,Old MD (myocardial infarction) Inject under the skin 75 mg every 14 days . 2 mL 11 2 Active Jardiance 25 MG Oral Tablet Take by mouth 1 Tablet in the morning. 90 Tablet 1 2 Active Tretinoin 0.05 % External Cream (Retin-A)Indication s:Actinic keratosis APPLY NIGHTLY TO FACE DIRECTED,CAN MIX WITH PONDS 45 g 5 2 Active FreeStyle Devi 2 Sensor Use as directed . 0 Active Finasteride 5 MG Oral Tablet (Proscar)Indication s:BPH with obstruction/lower urinary tract symptoms TAKE 1 TABLET BY MOUTH EVERY DAY 90 Tablet 1 2 Active Terazosin HCl 5 MG Oral Capsule (Hytrin)Indications :Ischemic cardiomyopathy Take by mouth 1 Capsule in the morning. 90 Capsule 3 2 Active Valsartan 320 MG Oral Tablet (Diovan)Indications :Atherosclerosis of [place] coronary artery of [place] heart without angina pectoris,Primary hypertension Take by [...] AND DINNER 180 Tablet 1 2 Active metFORMIN HCl 1000 MG Oral Tablet (Glucophage)Indicat ions:Type 2 diabetes mellitus with diabetic nephropathy (HCC),Type 2 diabetes mellitus with hemoglobin A1c goal of less than 8.0% (HCC) TAKE 1 TABLET BY MOUTH TWICE A DAY WITH BREAKFAST AND DINNER 180 Tablet 1 2 01/09/20 22 Discontinued Omeprazole 20 MG Oral Capsule Delayed Release (PriLOSEC)Indicatio ns:Peptic ulcer Take by mouth 1 Capsule in the morning. 90 Capsule 1 2 01/09/20 22 Discontinued documented as of this encounter (statuses as of 01/08/2022) Active Problems Problem Noted Date Carpal tunnel [...] to patient at prior appointment. Atherosclerosis of [place] co ronary artery of [place] heart without angina pectoris 11/30/2001 GENERAL OSTEOARTHROSIS Multiple pulmonary nodules Complex renal cyst Overview: 3.8 cm; L Old MD (myocardial infarction) documented as of this encounter (statuses as of 01/08/2022) Resolved Problems Problem Noted Date Resolved Date Genomics Cardio Research Other*[id number] 201004/22/2016 Overview: Study Titile: Genomics Markers for Patients with Cardiovascular Disease Project # [id number] PI: Amalia Kingsley MD Please call [phone] with study related questions HTN, goal below [...] 01/24/2002 10/12/2015 Solar lentigo 10/27/2001 04/30/2016 ACUTE MD; INFERIOR WALL;SUBSEQUENT EPISODE CARE 06/21/2013 HYPERTENSION NOS [...] as of this encounter (statuses as of 01/08/2022) Immunizations Name Administration Dates Next Due COVID-19 mRNA, LNP-s, No Pre serve, 2-Dose Series ([employer] 01/09/2021,06/08/2020,05/18/2020 COVID-19, LNP-s, No Preserve , Johann-sucrose, Ages 12+ (Pfizer) 06/18/2021 Covid-19, Mrna, Lnp-s, Pf, B ivalent Booster, 30 Mcg, IM, 12 yrs and above ([employer] 12/17/2021 Pneumococcal Conjugate Vacc, 13 Valent [...] Tobacco Use Types Packs/Day Years Used Date Former Smoker 0 Smokeless Tobacco: Never Used Comments:quit in 1971 Alcohol Use Standard Drinks/Week Comments Not Currently 0 (1 standard drink = 0.6 oz pur e alcohol) Sex Assigned at Date Recorded Not on file Job Start Date Occupation Industry Not on file Not on file Not on file documented as of this encounter Miscellaneous Notes * Telephone Encounter - Andrew Todd RPh - 01/08/2022 2:25 PM EDT Signed Prescriptions: Disp Refills Omeprazole 20 MG Oral Capsule Delayed Rele*90 Cap*1 Sig: TAKE BYMOUTH 1 CAPSULE IN THE MORNING.Authorizing Provider: SMITH DANIELLE User: ANDREW TODD metFORMIN HCl 1000 MG Oral Tablet (Glucoph*180 Ta*1 Sig: TAKE 1 TABLET BY MOUTH TWICE A DAYWITH BREAKFAST AND DINNERAuthorizing Provider: SMITH DANIELLE User: ANDREW TODD documented in this encounter Plan of Treatment Upcoming Encounters Date Type Specialty Care Team Description 02/10/2022 Office Visit Family Medicine Smith Danielle MD [address] [place] [address] [place] [address] 02/18/2022 Office Visit Cardiology Alcon Lott PA-C [address] [place] [address] 05/23/2022 Pharmacy Cardiology [facility] Cardiology [facility] [address] [place] [address] 06/02/2022 Office Visit Dermatology Kim Kong MD [address] [place] [address], [place] [address] Health Maintenance Due Date Last Done Comments [...] this topic documented as of this encounter Implants Implanted Type Area Career Professional Device Identifier Shelf Expiration Date Model / Serial / Lot Marker Coronary [facility] - [id number] Implanted:Qty: 1 on 12/26/2010 at OR [facility] N/A: Heart [employer] 10/13/2013 [facility] / / [id number] Sut Steel 6 M654g - [id number] Implanted:Qty: 5 on 12/26/2010 at OR [facility] Chest DO NOT USE 10/14/2015 M654G / / [id number] Band [facility] 225-241 - [id number] Implanted:Qty: 1 on 12/26/2010 at OR [facility] Chest [employer] 225-241 / / [id number] Lens Intraoc 17.5 - [id number] - [id number] Implanted:Qty: 1 on 02/07/2019 by Quincy Paiz MD at OR [facility] Right: Eye [employer] 08/14/2023 [id number] / [id number] / [id number] Lens Intraoc 17.0 - [id number] - [id number] Implanted:Qty: 1 on 03/01/2019 by Quincy Paiz MD at OR [facility] Left: Eye [employer] 09/12/2022 [id number] / [id number] / [id number] documented as of this encounter Visit Diagnoses Diagnosis PEPTIC ULCER NOS Peptic ulcer, unspecified site, unspecified as acute or chronic, without mention of hemorrhage, perforation, or obstruction Type 2 diabetes mellitus with diabetic nephropathy (HCC) Type II or unspecified type diabetes mellitus with renal manifestations, not stated as uncontrolled Type 2 diabetes mellitus with hemoglobin A1c goal of less than 8.0% (HCC) documented in this encounter Advance Directives Documents on File Type Date 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 Advanced Directive Advanced Directive Advanced Directive Advanced Directive Advanced Directive Advanced Directive Advanced Directive Advanced Directive Advanced Directive Advanced Directive Advanced Directive Advanced Directive Advanced Directive Advanced Directive Advanced Directive Advanced Directive Advanced Directive Advanced Directive Advanced Directive Advanced Directive Advanced Directive Advanced Directive Advanced Directive Advanced Directive Advanced Directive Advanced Directive Advanced Directive Advanced Directive Advanced Directive Advanced Directive Advanced Directive Advanced Directive Advanced Directive Advanced Directive Advanced Directive Advanced Directive Advanced Directive Advanced Directive Advanced Directive Advanced Directive Advanced Directive Advanced Directive Advanced Directive Advanced Directive Advanced Directive Advanced Directive Advanced Directive Advanced Directive Advanced Directive Advanced Directive Advanced Directive Advanced Directive Advanced Directive Advanced Directive Advanced Directive Advanced Directive Advanced Directive Advanced Directive Advanced Directive Advanced Directive Advanced Directive Advanced Directive 12/24/2010 12:00 AM Advanced Directive 12/03/2010 12:00 AM Advanced Directive 12/02/2010 12:00 AM Latest Code Status on File Code Status Date Activated Date Inactivated Comments Full Code 12/26/2010 11:49 AM 12/30/2010 3:24 PM Th is order reflects the patients wishes and were consensually agreed upon. Care Teams Business Development Assistant Relationship Specialty Start Date End Date Smith Danielle MD [address] [place] [address] [place] [address] PCP - General Family Medicine 08/03/18 documented as of this encounter
--- OUTSIDE RECORDS SUMMARY | 2022-11-16 13:09 | External Medical Summary | Summary of Care ---
Author Name Unknown Organization [place] [address] Care Team Providers Care Thread Clipper Name Role Phone Smith Danielle MD Primary Care Provider [phone] Reason for Visit * Reason Comments eRx-Medication Refill Encounter Details Date Type Department Care Team Description 08/15/2021 Refill Family Medicine [address] [place] [phone] Smith Danielle MD [address] [place] [address] [place] [id number] BPH with obstruction/lower urinary tract symptoms Allergies Active Allergy Reactions Severity Noted Date Comments Acetaminophen Renal complications 04/27/2009 Aspirin 08/13/2000 Stomach pain Cholestyramine 08/13/2000 Kidney pain Atorvastatin Calcium 04/28/2007 cramping Niacin Muscle pain 07/22/2007 Simvastatin Hives 08/13/2000 Ezetimibe 04/28/2007 Cramping ankles, turned feet inward documented as of this encounter (statuses as of 08/19/2021) Medications Medication Sig Dispensed Refills Start Date End Date Status GAVI 180 MG PO TABSIndications:A llergic rhinitis One pill by mouth once a day for allergies 30 5 07/23/2009 Active Additional Information Patient taking differently: Oral, Indications: as needed, Reported on 02/02/2019 MAGNESIUM OXIDE 200 MG PO TABSIndications:C ramp in limb one tablet twice a day 60 Tab 5 07/16/2010 Active SB LOW DOSE ASA EC 81 MG PO TBECIndications:p thursday, thursday Take by mouth. Indications: pm, thursday 0 Active MULTI-VITAMIN PO TABS one pill each day 0 Active ONETOUCH ULTRA STRPIndications:T ype 2 diabetes mellitus with hemoglobin A1c goal of less than 8.0% ([facility]) USE ONE TEST STRIP TO TEST BLOOD SUGAR LEVELS TWICE A DAY 200 Strip 5 11/11/2019 Active OneTouch UltraSoft Lancets MISCIndications:T ype 2 diabetes mellitus with hemoglobin A1c goal of less than 8.0% ([facility]) USE ONE LANCET TO [...] with meals. 1 Each 0 11/20/2020 Active Terazosin HCl 5 MG Oral Capsule (Hytrin) Take 1 Cap by mouth daily. 90 Cap 3 11/20/2020 Active Furosemide 20 MG Oral Tablet (Lasix) TAKE 1 TABLET BY MOUTH EVERY DAY 90 Tab 3 12/17/2020 Active Isosorbide Mononitrate ER 60 MG Oral Tablet Extended Release 24 Hour (Imdur) TAKE 1 TABLET BY MOUTH EVERY MORNING 90 Tablet 3 04/19/2021 Active BD Pen Needle Ashley 2nd Gen 32G X 4 MM INJECT 4 X DAY 0 04/21/2021 Active amLODIPine Besylate 2.5 MG Oral Tablet (Norvasc)Indicati ons:Essential hypertension with goal blood pressure less than 140/90,Old NM (myocardial infarction) Take by mouth 1 Tablet in the morning. 90 Tablet 3 05/10/2021 Active Valsartan 320 MG Oral Tablet (Diovan)Indicatio ns:Atherosclerosi s of [place] coronary artery of [place] heart without angina pectoris,Primary hypertension Take by mouth 0.5 Tablets in the morning AND 0.5 Tablets before bedtime. 90 Tablet 1 05/24/2021 Active Praluent 75 MG/ML Subcutaneous Solution Auto-injector (Alirocumab)Indic ations:Dyslipidem ia, goal LDL below 70,Statin intolerance,Ather osclerosis of [place] coronary artery of [place] heart without angina pectoris,Old NM (myocardial infarction) Inject under the skin 75 mg every 14 days . 2 mL 11 06/14/2021 Active metFORMIN HCl 1000 MG Oral Tablet (Glucophage)Indic ations:Type 2 diabetes mellitus with diabetic nephropathy (HCC),Type 2 diabetes mellitus with hemoglobin A1c goal of less than 8.0% (HCC) TAKE 1 TABLET BY MOUTH TWICE A DAY WITH BREAKFAST AND DINNER 180 Tablet 1 07/01/2021 Active Omeprazole 20 MG Oral Capsule Delayed Release (PriLOSEC)Indicat ions:Peptic ulcer Take by mouth 1 Capsule in the morning. 90 Capsule 1 07/01/2021 Active Jardiance 25 MG Oral Tablet Take by mouth 1 Tablet in the morning. 90 Tablet 1 08/06/2021 Active Tretinoin 0.05 % External Cream (Retin-A)Indicati ons:Actinic keratosis APPLY NIGHTLY TO FACE DIRECTED,CAN MIX WITH PONDS 45 g 5 08/06/2021 Active FreeStyle Devi 2 Sensor Use as directed . 0 Active Finasteride 5 MG Oral Tablet (Proscar)Indicati ons:BPH with obstruction/lower urinary tract symptoms TAKE 1 TABLET BY MOUTH EVERY DAY 90 Tablet 1 08/19/2021 Active Finasteride 5 MG Oral Tablet (Proscar)Indicati ons:BPH with obstruction/lower urinary tract symptoms TAKE 1 TABLET BY MOUTH EVERY DAY 90 Tablet 1 02/21/2021 08/20/19 22 Discontinued Triamcinolone Acetonide 0.1 % Mouth/Throat Paste (Kenalog In Orabase)Indicatio ns:Aphthous stomatitis Apply three times a day to sores on lip 5 g 1 08/06/2021 08/17/19 22 documented as of this encounter (statuses as of 08/19/2021) Active Problems Problem Noted Date Carpal tunnel [...] to patient at prior appointment. Atherosclerosis of [place] co ronary artery of [place] heart without angina pectoris 11/30/2001 GENERAL OSTEOARTHROSIS Multiple pulmonary nodules Complex renal cyst Overview: 3.8 cm; L Old NM (myocardial infarction) documented as of this encounter (statuses as of 08/19/2021) Resolved Problems Problem Noted Date Resolved Date [employer] Other*[id number] 201004/22/2016 Overview: Study Titile: Genomics Markers for Patients with Cardiovascular Disease Project # [id number] PI: Amalia Kingsley MD Please call [phone] with study related questions HTN, goal below [...] 01/24/2002 10/12/2015 Solar lentigo 10/27/2001 04/30/2016 ACUTE NM; INFERIOR WALL;SUBSEQUENT EPISODE CARE 06/21/2013 HYPERTENSION NOS [...] as of this encounter (statuses as of 08/19/2021) Immunizations Name Administration Dates Next Due COVID-19 mRNA, LNP-s, No Pre serve, 2-Dose Series (vWise) 01/09/2021,06/08/2020,05/18/2020 COVID-19, LNP-s, No Preserve , Johann-sucrose, Ages 12+ (Pfizer) 06/18/2021 Pneumococcal Conjugate Vacc, 13 Valent (Prevnar) 10/16/2015 Pneumococcal Polysaccharide PPV23 (Pneumovax) 12/15/2006,04/01/2002 Seasonal Influenza, Quadriva lent Hd (Fluzone Hd) 12/01/2020 Seasonal Influenza, Quadriva lent, No Preserve, 6 [...] encounter Miscellaneous Notes * Telephone Encounter - Lyric Wolfe [facility] - 08/19/2021 11:08 AM EDT Signed Prescriptions: Disp Refills Finasteride 5 MG Oral Tablet (Proscar) 90 Tab*1 Sig: TAKE 1 TABLET BY MOUTH EVERY DAYAuthorizing Provider: SMITH DANIELLE User: LYRIC WOLFE------ documented in this encounter Plan of Treatment Upcoming Encounters Date Type Specialty Care Team Description 08/20/2021 Imaging Radiology 11/25/2021 Office Visit Dermatology Kim Kong MD [address] [facility] [place] [address] 02/10/2022 Office Visit Family Medicine Smith Danielle MD [address] [place] [address] [place] [phone] 02/18/2022 Office Visit Cardiology Alcon Lott PA-C [address] [facility] [place] [address] 05/23/2022 Pharmacy Cardiology [facility] Cardiology Imelda [address] [place] [address] Health Maintenance Due Date Last Done Comments Depression Screening, Annual for Pts 12 and Over 08/29/2020 08/30/2019 Yearly B-12 07/12/2021 07/12/2020, 08/14, 08/19/2018, Additional history exists DIABETES-HGBA1C EVERY 6 MONTHS 11/20/2021 05/20/2021, 02/25/2021, 06/28/2020, Additional history exists BASIC METABOLIC PANEL (BMP) FOR HTN YEARLY 02/25/2022 02/25/2021, 07/12/2020, 06/28/2020, Additional history exists DIABETES-EYE EXAM 03/28/2022 03/28/2021, , 11/09/2018, Additional history exists DIABETES-URINE ALBUMIN/CREATININE EVERY 12 MONTHS 05/20/2022 05/20/2021, 02/25/2021, 03/01/2020, Additional history exists DTaP,Tdap,and Td Vaccines (2 - Td or Tdap) 08/05/2022 08/05/2012, 03/16/2003 DIABETES-FOOT EXAM 08/06/2022 08/06/2021, 1 05/02/2019, 01/24/2019, Additional history exists Pneumococcal Vaccine: 65+ Years Completed 10/16/2015, 12/15/2006, 04/01/2002 Zoster Vaccines Completed 05/25/2019, 09/2019, 11/15/2011 Influenza Vaccine (FLU shot) Completed , 11/22/2019, 11/22/2018, Additional history exists COVID-19 Vaccine Completed 06/18/2021, , 06/08/2020, Additional history exists GARDASIL-HPV IMMUNIZATION SERIES Aged Out No longer eligible based on patient's age to complete this topic MENINGOCOCCAL (MENACTRA/MENVEO) Aged Out No longer eligible based on patient's age to complete this topic documented as of this encounter Implants Implanted Type Area Engineering Professionals Device Identifier Shelf Expiration Date Model / Serial / Lot Marker Coronary [facility] - [id number] Implanted:Qty: 1 on 12/26/2010 [place] [facility] [place]A: Heart [employer] [facility]13/[facility] / [id number] Sut Steel 6 M654g - [id number] Implanted:Qty: 5 on 12/26/2010 at [place] [facility] Chest DO NOT USE 10/14/2015 M654G / / [id number] Band Ankur 225-874 - [id number] Implanted:Qty: 1 on 12/26/2010 at [place] [facility] Chest [employer] 225-241 / / [id number] Lens Intraoc 17.5 - [id number] - [id number] Implanted:Qty: 1 on 02/07/2019 by Quincy Paiz MD at OR [facility] Right: Eye [employer] LOMB 08/14/2023 [id number] / [id number] / [id number] Lens Intraoc 17.0 - [id number] - [id number] Implanted:Qty: 1 on 03/01/2019 by Quincy Paiz MD at OR [facility] Left: Eye BAUSCH & LOMB 09/12/2022 [id number] / [id number] / [id number] documented as of this encounter Visit Diagnoses Diagnosis BPH with obstruction/lower urinary tract symptoms Hypertrophy of prostate with urinary obstruction and other lower urinary tract symptoms (LUTS) documented in this encounter Advance Directives Documents on File Type Date Recorded 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 Care Teams Thread Clipper Relationship Specialty Start Date End Date Smith Danielle MD [address] [place] [address] [place] [address] PCP - General Family Medicine 08/03/18 documented as of this encounter
--- OUTSIDE RECORDS SUMMARY | 2022-11-16 13:09 | External Medical Summary | Summary of Care ---
Author Name Unknown Organization [place] [address] Care Team Providers Care Tearoom Hostess Name Role Phone Smith Danielle MD Primary Care Provider [phone] Reason for Visit * Reason Onset Date Comments Medication Refill 11/17/2021 Encounter Details Date Type Department Care Team Description 11/17/2021 Refill Family Medicine [address] [phone] Lena Mckeon PA-C [address] [place] [address] [place] [phone] Atherosclerosis [place] coronary artery of [place] heart without angina pectoris; Primary hypertension Allergies Active Allergy Reactions Severity Noted Date Comments Acetaminophen Renal complications 04/27/2009 Aspirin 08/13/2000 Stomach pain Cholestyramine 08/13/2000 Kidney pain Atorvastatin Calcium 04/28/2007 cramping Niacin Muscle pain 07/22/2007 Simvastatin Hives 08/13/2000 Ezetimibe 04/28/2007 Cramping ankles, turned feet inward documented as of this encounter (statuses as of 11/20/2021) Medications Medication Sig Dispensed Refills Start Date End Date Status GAVI 180 MG PO TABSIndications:All ergic rhinitis One pill by mouth once a day for allergies 30 5 07/23/2009 Active Additional Information Patient taking differently: Oral, Indications: as needed, Reported on 02/02/2019 MAGNESIUM OXIDE 200 MG PO TABSIndications: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 90 Tablet 3 05/10/2021 Active Praluent 75 MG/ML Subcutaneous Solution Auto-injector (Alirocumab)Indicat ions:Dyslipidemia, goal LDL below 70,Statin intolerance,Atheros clerosis of [place] coronary artery of [place] heart without angina pectoris,Old RI (myocardial infarction) Inject under the skin 75 [...] 08/06/2021 Active Tretinoin 0.05 % External Cream (Retin-A)Indication s:Actinic keratosis APPLY NIGHTLY TO FACE DIRECTED,CAN MIX WITH PONDS 45 g 5 08/06/2021 Active FreeStyle Devi 2 Sensor Use as directed . 0 Active Finasteride 5 MG Oral Tablet (Proscar)Indication s:BPH with obstruction/lower urinary tract symptoms TAKE 1 TABLET BY MOUTH EVERY DAY 90 Tablet 1 08/19/2021 Active Terazosin HCl 5 MG Oral Capsule (Hytrin)Indications :Ischemic cardiomyopathy Take by mouth 1 Capsule in the morning. 90 Capsule 3 11/18/2021 Active Valsartan 320 MG Oral Tablet (Diovan)Indications :Atherosclerosis of [place] coronary artery of [place] heart without angina pectoris,Primary hypertension Take by mouth 0.5 Tablets in the morning AND 0.5 Tablets before bedtime. 90 Tablet 1 11/20/2021 Active Furosemide 20 MG Oral Tablet (Lasix)Indications: Ischemic cardiomyopathy Take by mouth 1 Tablet in the morning. 90 Tablet 3 11/18/2021 Active Valsartan 320 MG Oral Tablet (Diovan)Indications :Atherosclerosis of [place] coronary artery of [place] heart without angina pectoris,Primary hypertension Take by mouth 0.5 Tablets in the morning AND 0.5 Tablets before bedtime. 90 Tablet 1 05/24/2021 2 Discontinu ed(Refill) documented as of this encounter (statuses as of 11/20/2021) Active Problems Problem Noted Date Carpal tunnel [...] to patient at prior appointment. Atherosclerosis of [place] co ronary artery of [place] heart without angina pectoris 11/30/2001 GENERAL OSTEOARTHROSIS Multiple pulmonary nodules Complex renal cyst Overview: 3.8 cm; L Old RI (myocardial infarction) documented as of this encounter (statuses as of 11/20/2021) Resolved Problems Problem Noted Date Resolved Date Gen[employer] Cardio Research Other*[id number] 201004/22/2016 Overview: Study Titile: Genomics Markers for Patients with Cardiovascular Disease Project # [id number] PI: Amalia Kingsley MD Please call [phone] with study related questions HTN, goal below [...] 01/24/2002 10/12/2015 Solar lentigo 10/27/2001 04/30/2016 ACUTE RI; INFERIOR WALL;SUBSEQUENT EPISODE CARE 06/21/2013 HYPERTENSION NOS [...] as of this encounter (statuses as of 11/20/2021) Immunizations Name Administration Dates Next Due COVID-19 mRNA, LNP-s, No Pre serve, 2-Dose Series (Baidu) 01/09/2021,06/08/2020,05/18/2020 COVID-19, LNP-s, No Preserve , Johann-sucrose, [...] Telephone Encounter - Smith Danielle MD - 11/20/2021 10:16 AM EDT Signed Prescriptions: Disp Refills Valsartan 320 MG Oral Tablet (Diovan) 90 Tab*1 Sig: Take by mouth 0.5 Tablets in the morning AND 0.5 Tablets before bedtime. Authorizing Provider: SMITH DANIELLE * Telephone Encounter - Jacqueline Mccarthy LPN - 11/20/2021 9:53 AM EDT Pending Prescriptions: Disp Refills Valsartan 320 MG Oral Tablet (Diovan) 90 Tab*1 Sig: Take by mouth 0.5 Tablets in the morning AND 0.5 Tablets before bedtime. * Telephone Encounter - Jacqueline Mccarthy LPN - 11/20/2021 9:52 AM EDT Pending Prescriptions: Disp Refills Valsartan 320 MG Oral Tablet (Diovan) 90 Tab*1 Sig: Take by mouth 0.5 Tablets in the morning AND 0.5 Tablets before bedtime. Last Visit: 08/06/2021 (in office), Visit date not found (telemedicine) Next Visit: 02/10/2022 Last date the medication was ordered: 05/24/21 Patient Active Problem List Diagnosis Code GENERAL OSTEOARTHROSIS M15.9 Atherosclerosis of [place] coronary artery of [place] heart without angina pectoris I25.10 ADVANCE DIRECTIVE INFORMATION Type 2 diabetes mellitus with hemoglobin A1c goal of less than 8.0% ([facility]) E11.9 DYSLIPIDEMIA, GOAL LDL BELOW [...] and hypertension (HCC) E11.22, I12.9, N18.2 Old RI (myocardial infarction) I25.2 Nonrheumatic aortic valve stenosis I35.0 Edema R60.9 Carpal tunnel syndrome, bilateral G56.03 Labs: Lab Results Component Value Date/Time CREATININE 1.0 01/25/1996 10:05 AM CREATININE - [facility] 1.0 02/25/2021 09:44 AM CREATININE - [facility] 1.0 03/01/2020 02:51 PM CREATININE, RANDOM URINE - [facility] 51 02/25/2021 09:44 AM CREATININE, RANDOM URINE - [facility] 36 03/01/2020 02:51 PM CREATININE-OUTSIDE LAB 1.00 12/01/2016 12:00 AM Lab Results Component Value Date/Time POTASSIUM 4.8 01/25/1996 10:05 AM POTASSIUM - [facility] 4.4 02/25/2021 09:44 AM POTASSIUM - [facility] 4.4 03/01/2020 02:51 PM POTASSIUM, WHOLE BLOOD - [facility] 3.2 (L) 12/26/2010 11:27 AM Lab Results Component Value Date/Time TSH [...] Encounters Date Type Specialty Care Team Description 11/25/2021 Office Visit Dermatology Kim Kong MD [address] [facility] [place] [address] 02/10/2022 Office Visit Family Medicine Smith Danielle MD [address] [place] [address] [place] [address] 02/18/2022 Office Visit Cardiology Alcon Lott PA-C [address] [place] [address] 05/23/2022 Pharmacy Cardiology [facility] Cardiology [facility] [address] [place] [address] Health Maintenance Due Date Last Done Comments [...] Completed 05/25/2019, 09/2019, 11/15/2011 COVID-19 Vaccine Completed 06/18/2021, , 06/08/2020, Additional history exists Influenza Vaccine (FLU shot) Completed 08/2021, 12/01/2020, 11/22/2019, Additional history exists GARDASIL-HPV IMMUNIZATION SERIES Aged Out No longer eligible based on patient's age to complete this topic Hepatitis B Aged Out No longer eligi ble based on patient's age to complete this topic MENINGOCOCCAL (MENACTRA/MENVEO) Aged Out No longer eligible based on patient's age to complete this topic documented as of this encounter Implants Implanted Type Area Scaler Device Identifier Shelf Expiration Date Model / Serial / Lot Marker Coronary [facility] - [id number] Implanted:Qty: 1 on 12/26/2010 at [place] [facility] N/A: Heart [employer] 10/13/2013 [facility] / / [id number] Sut Steel 6 M654g - [id number] Implanted:Qty: 5 on 12/26/2010 at [place] [facility] Chest DO NOT USE 10/14/2015 M654G / / [id number] [facility] 225-241 - [id number] Implanted:Qty: 1 on 12/26/2010 at OR [facility] Chest [employer] 225-241 / / [id number] Lens Intraoc 17.5 - [id number] - [id number] Implanted:Qty: 1 on 02/07/2019 by Quincy Paiz MD at OR [facility] Right: Eye [employer]OM[employer] 08/14/2023 [id number] / [id number] / [id number] Lens Intraoc 17.0 - [id number] - [id number] Implanted:Qty: 1 on 03/01/2019 by Quincy Paiz MD at OR [facility] Left: Eye [employer]USCH [employer] LOMB 09/12/2022 [id number] / [id number] / [id number] documented as of this encounter Visit Diagnoses Diagnosis Atherosclerosis of [place] coronary artery of [place] heart without angina pectoris Primary hypertension Unspecified essential hypertension documented in this encounter Advance Directives Documents on File Type Date Recorded 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 Care Teams Tearoom Hostess Relationship Specialty Start Date End Date Smith Danielle MD [address] [place] [address] [place] [phone] PCP - General Family Medicine 08/03/18 documented as of this encounter
--- OUTSIDE RECORDS SUMMARY | 2022-11-16 13:09 | External Medical Summary | Summary of Care ---
Author Name Unknown Organization [place] [address] Care Team Providers Care Adult Basic Education Manager Name Role Phone Smith Orozco MD Primary Care Provider [phone] Reason for Referral * Precert (Within 10 days (routine)) - Pending Review Specialty Diagnoses / Procedures Referred By Contac t Referred To Contact Cardiac Studies Diagnoses Ischemic cardiomyopathy Nonrheumatic aortic valve stenosis Procedures ECHO, COMPLETE (2D), TRANS-THORACIC Alcon Lott PA-C [phone] [place] [id number] Referral ID Status Reason Start Date Expiration Date Visits Requested Visits Authorized Pending Review Precert 08/21/[phone] Reason for Visit * Reason Comments Follow Up 6 month follow up. D enies chest pain, palpitations, SOB, dizziness and edema. Encounter Details Date Type Department Care Team Description 08/15/2021 Office Visit Cardiology [address] [place] [address] Alcon Lott PA-C [address] [place] [id number] Dyslipidemia, goal LDL below 70*; Statin intolerance; Atherosclerosis of nulato coronary artery of [place] heart without angina pectoris; [place] (myocardial infarction); Essential hypertension with goal blood pressure less than 140/90; HTN, goal below 130/80; Ischemic cardiomyopathy; Nonrheumatic aortic valve stenosis; Asymptomatic bilateral carotid artery stenosis; Bilateral carotid bruits; Nonspecific abnormal electrocardiogram (ECG) (EKG) Allergies Active Allergy Reactions Severity Noted Date Comments Acetaminophen Renal complications 04/27/2009 Aspirin 08/13/2000 Stomach pain Cholestyramine 08/13/2000 Kidney pain Atorvastatin Calcium 04/28/2007 cramping Niacin Muscle pain 07/22/2007 Simvastatin Hives 08/13/2000 Ezetimibe 04/28/2007 Cramping ankles, turned feet inward documented as of this encounter (statuses as of 08/15/2021) Medications Medication Sig Dispensed Refills Start Date End Date Status GAVI 180 MG PO TABSIndications:Al lergic rhinitis One pill by mouth once a day for allergies 30 5 07/23/2009 Active Additional Information Patient taking differently: Oral, Indications: as needed, Reported on 02/02/2019 MAGNESIUM OXIDE 200 MG PO TABSIndications:Cr amp in limb one tablet twice a day 60 Tab 5 07/16/2010 Active SB LOW DOSE ASA EC 81 MG PO TBECIndications:pm , thursday Take by mouth. Indications: pmond, thursday 0 Active MULTI-VITAMIN PO TABS one pill each day 0 Active ONETOUCH ULTRA STRPIndications:Ty pe 2 diabetes mellitus with hemoglobin A1c goal of less than 8.0% ([facility]) USE ONE TEST STRIP TO TEST BLOOD SUGAR LEVELS TWICE A DAY 200 Strip 5 11/11/2019 Active OneTouch UltraSoft Lancets MISCIndications:Ty pe 2 diabetes mellitus with hemoglobin A1c goal of less than 8.0% ([facility]) USE ONE LANCET TO TEST BLOOD [...] EVERY DAY 90 Tab 3 12/17/2020 Active Finasteride 5 MG Oral Tablet (Proscar)Indicatio ns:BPH with obstruction/lower urinary tract symptoms TAKE 1 TABLET BY MOUTH EVERY DAY 90 Tablet 1 02/21/2021 Active Isosorbide Mononitrate ER 60 MG Oral Tablet Extended Release 24 Hour (Imdur) TAKE 1 TABLET BY MOUTH EVERY MORNING 90 Tablet 3 04/19/2021 Active BD Pen Needle Ashley 2nd Gen 32G X 4 MM INJECT 4 X DAY 0 04/21/2021 Ac tive amLODIPine Besylate 2.5 MG Oral Tablet (Norvasc)Indicatio ns:Essential hypertension with goal blood pressure less than 140/90,[place] (myocardial infarction) Take by mouth 1 Tablet in the morning. 90 Tablet 3 05/10/2021 Active Valsartan 320 MG Oral Tablet (Diovan)Indication s:Atherosclerosis of nulato coronary artery of [place] heart without angina pectoris,Primary hypertension Take by mouth 0.5 Tablets in the morning AND 0.5 Tablets before bedtime. 90 Tablet 1 05/24/2021 Active Praluent 75 MG/ML Subcutaneous Solution Auto-injector (Alirocumab)Indica tions:Dyslipidemia , goal LDL below 70,Statin intolerance,Athero sclerosis of nul[place] coronary artery of [place] heart without angina pectoris,[place] (myocardial infarction) Inject under the skin 75 mg every 14 days . 2 mL 11 06/14/2021 Active metFORMIN HCl 1000 MG Oral Tablet (Glucophage)Indica tions:Type 2 diabetes mellitus with diabetic nephropathy (HCC),Type 2 diabetes mellitus with hemoglobin A1c goal of less than 8.0% (HCC) TAKE 1 TABLET BY MOUTH TWICE A DAY WITH BREAKFAST AND DINNER 180 Tablet 1 07/01/2021 Active Omeprazole 20 MG Oral Capsule Delayed Release (PriLOSEC)Indicati ons:Peptic ulcer Take by mouth 1 Capsule in the morning. 90 Capsule 1 07/01/2021 Active Triamcinolone Acetonide 0.1 % Mouth/Throat Paste (Kenalog In Orabase)Indication s:Aphthous stomatitis Apply three times a day to sores on lip 5 g 1 08/06/2021 2 Active Jardiance 25 MG Oral Tablet Take by mouth 1 Tablet in the morning. 90 Tablet 1 08/06/2021 Active Tretinoin 0.05 % External Cream (Retin-A)Indicatio ns:Actinic keratosis APPLY NIGHTLY TO FACE DIRECTED,CAN MIX WITH PONDS 45 g 5 08/06/2021 Active FreeStyle Devi 2 Sensor Use as directed . 0 Active glipiZIDE ER 10 MG Oral Tablet Extended Release 24 Hour (Glucotrol XL)Indications:Typ e 2 diabetes mellitus with hemoglobin A1c goal of less than 8.0% (HCC) Take by mouth 1 Tablet in the morning AND 1 Tablet before bedtime. 180 Tablet 1 08/06/2021 2 Discontinue d(Patient preference/ discontinua tion) documented as of this encounter (statuses as of 08/15/2021) Active Problems Problem Noted Date Carpal tunnel [...] to patient at prior appointment. Atherosclerosis of nul[place] co ronary artery of [place]ul[place] heart without angina pectoris 11/30/2001 GENERAL OSTEOARTHROSIS Multiple pulmonary nodules Complex renal cyst Overview: 3.8 cm; L [place] (myocardial infarction) documented as of this encounter (statuses as of 08/15/2021) Resolved Problems Problem Noted Date Resolved Date [employer] Other*[id number] 201004/22/2016 Overview: Study Titile: Genomics Markers for Patients with Cardiovascular Disease Project # [id number] PI: Amalia Kingsley MD Please call [phone] with study related questions HTN, goal below [...] 01/24/2002 10/12/2015 Solar lentigo 10/27/2001 04/30/2016 ACUTE [place]; INFERIOR WALL;SUBSEQUENT EPISODE CARE 06/21/2013 HYPERTENSION NOS [...] as of this encounter (statuses as of 08/15/2021) Immunizations Name Administration Dates Next Due COVID-19 mRNA, LNP-s, No Pre serve, 2-Dose Series (Zuu Onlnine) 01/09/2021,06/08/2020,05/18/2020 COVID-19, LNP-s, No Preserve , Johann-sucrose, [...] Sign Reading Time Taken Comments Blood Pressure 116/64 08/15/2021 8:42 AM EDT Pulse 64 08/15/2021 8:42 AM EDT Temperature 36.2 C (97.1 F) 08/15/2021 8:42 AM ED T Respiratory Rate 16 08/15/2021 8:42 AM EDT Oxygen Saturation - - Inhaled Oxygen Concentration - - Weight 62.8 kg (138 lb 8 oz) 08/15/2021 8:42 AM EDT Height - - Body Mass Index 23.05 05/17/2021 12:38 PM EST documented in this encounter Progress Notes * Alcon Lott PA-C - 08/15/2021 9:00 AM EDT History of Present Illness: Mr. Reynolds is a very pleasant 81 year old male who returns today for cardiology follow-up evaluation. Patient returns today feeling relatively well from a cardiac standpoint. Notes gradual slowing with the aging process though without overt change in exercise toleranceor functional capacity. No chest pain or angina. No palpitations. Stable exertional dyspnea. No resting dyspnea. No significant peripheral edema. No cough, chest congestion, orthopnea, or PND. No dizziness or syncope. No melena or hematochezia. Systolic blood pressures on home monitoring are typically in the 130s to 140s with diastolic readings in the 70s and 80s. Heart rates on home monitoring are typically in the 50s and 60s. Blood pressure are notably less labile than in the past. Patient Active Problem List Diagnosis Code GENERAL OSTEOARTHROSIS M15.9 Atherosclerosis of n[place] coronary artery of [place] heart without angina pectoris I25.10 ADVANCE DIRECTIVE INFORMATION Type 2 diabetes mellitus with hemoglobin A1c goal of less than 8.0% ([facility]) E11.9 DYSLIPIDEMIA, GOAL LDL BELOW 70 E78.5 [...] and hypertension (HCC) E11.22, I12.9, N18.2 [place] (myocardial infarction) I25.2 Nonrheumatic aortic valve stenosis I35.0 Edema R60.9 Carpal tunnel syndrome, bilateral G56.03 Past Surgical History: Inguinal hernia. CABG Social History: From [place]. Lives in [place] with his . Reformed smoker. 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 Complete Review of Systems is as stated [...] times a day with meals. 1 Each Terazosin HCl 5 MG Oral Capsule (Hytrin) Take 1 Cap by mouth daily. 90 Cap 3 Furosemide 20 MG Oral Tablet (Lasix) TAKE 1 TABLET BY MOUTH EVERY DAY 90 Tab 3 Finasteride 5 MG Oral Tablet (Proscar) TAKE 1 TABLET BY MOUTH EVERY DAY 90 Tablet 1 Isosorbide Mononitrate ER 60 MG Oral Tablet Extended Release 24 Hour (Imdur) TAKE 1 TABLET BY MOUTH EVERY MORNING 90 Tablet 3 BD Pen Needle Ashley 2nd Gen 32G X 4 MM INJECT 4 X DAY amLODIPine Besylate 2.5 MG Oral Tablet (Norvasc) Take by mouth 1 Tablet in the morning. 90 Tablet 3 Valsartan 320 MG Oral Tablet (Diovan) Take by mouth 0.5 Tablets in the morning AND 0.5 Tablets before bedtime. 90 Tablet 1 Praluent 75 MG/ML Subcutaneous Solution Auto-injector (Alirocumab) Inject under the skin 75 mg every 14 days . 2 mL 11 metFORMIN HCl 1000 MG Oral Tablet (Glucophage) TAKE 1 TABLET BY MOUTH TWICE A DAY WITH BREAKFAST AND DINNER 180 Tablet 1 Omeprazole 20 MG Oral Capsule Delayed Release (PriLOSEC) Take by mouth 1 Capsule in the morning. 90 Capsule 1 Triamcinolone Acetonide 0.1 % Mouth/Throat Paste (Kenalog In Orabase) Apply three times a day to sores on lip 5 g 1 Jardiance 25 MG Oral Tablet Take by mouth 1 Tablet in the morning. 90 Tablet 1 Tretinoin 0.05 % External Cream (Retin-A) APPLY NIGHTLY TO FACE DIRECTED,CAN MIX WITH PONDS 45 g 5 FreeStyle Devi 2 Sensor Use as directed . SB LOW DOSE ASA EC 81 MG PO TBEC Take by mouth. Indications: pmond, thursday ONETOUCH ULTRA STRP USE ONE TEST STRIP TO TEST BLOOD SUGAR LEVELS TWICE A DAY 200 Strip 5 OneTouch UltraSoft Lancets MISC USE ONE LANCET TO TEST BLOOD SUGAR LEVELS TWICE A DAY 200 Each 3 No current facility-administered medications for this visit. PHYSICAL EXAMINATION BP 116/64 | Pulse 64 | Temp 36.2 C (97.1 F) | Resp 16 | Wt 62.8 kg (138 lb 8 oz) | BMI 23.05 kg/m | BSA 1.7 m Blood pressure my evaluation was 122/56 General: A&Ox3. NAD. HENT: Normocephalic. Atraumatic. Eyes: PER. Conjunctiva pink, sclera clear. Neck: Bilateral carotid bruits. No JVD. No HJR. Heart: Irregular with occasional ectopic beat. Heart rate at 60 bpm. Grade II/ systolic ejection murmur. No rub. No gallop. PMI is nondisplaced. Lungs: Clear to auscultation. Abdomen: +BS. No abdominal bruits. Soft. Nontender. No masses or organomegaly. Extremities: Minimal pretibial edema. No clubbing. No cyanosis. Limited neurological examination is without focal deficits. Pulses: radial=2/4, posterior tibial=2/4. Data: February 2020 carotid duplex revealed stable mild (less than 50%) left internal carotid artery stenosis. Stable moderate (50-69%) right internal carotid artery stenosis. Heavily calcified plaque appreciated bilaterally July 24, 2020 TTE Interpretation Summary (as per Dr. Hinds): Compared to last available study, there has been no interval change. Mildly dilated LV chamber. Mildly reduced LV systolic function. There is a large sized apical, septal, anteroseptal, inferior, and posterior wall motion abnormality with hypokinesis to akinesis of the segments EF 40-45%. Grade I diastolic dysfunction. The aortic valveis mildly calcified. The aortic valve opening is mildly reduced. Mild aortic valve stenosis is present. Mild aortic valve regurgitation is present. Mild mitral regurgitation. Mild tricuspid regurgitation May 20, 2021 lipid panel: Cholesterol 120. LDL 48. HDL 50. Triglycerides 111. EKG today reveals sinus rhythm at 63 bpm with a first-degree AV block. Old inferior infarct. Old anterior infarct. T wave are somewhat peaked. When compared to prior available EKGs, there was no significant change. ASSESSMENT: 1. ASCVD. Stable. 1. Prior inferior [place] in 1994 managed at [facility]. 2. Catheterization in 2010 following abnormal nuclear [...] and obtuse marginal. 4. Ischemic cardiomyopathy, LVEF 40-44%. 2. Valve disease, aortic stenosis and insufficiency, mitral regurgitation. 3. Chronic bradycardia. Beta-layne intolerance. 4. Palpitations in association with sensed ectopy. 5. Labile hypertension. 6. Dyslipidemia. Intolerant to statins and ezetimibe. Lipids above were obtained in follow-up afterinitiation of Praluent, well controlled. 7. Carotid artery disease. History of prior TIA with transient leg weakness. February 2020 Carotid duplex with stable mild (less than 50%) left internal carotid artery stenosis, stable moderate (50-69%) right internal carotid artery stenosis. Heavily calcified plaque appreciated bilaterally 8. Type II diabetes mellitus. Followed by PCP. 9. BPH 10. Mild peripheral edema, chronic, stable, multifactorial. Options of management discussed with patient. Plan as outlined below. RECOMMENDATIONS/PLAN: 1. Basic metabolic panel, RE: mildly peaked T-waves on today's EKG. 2. Bilateral carotid duplex, RE: Follow-up of the moderate internal carotid artery disease. 3. Resting echocardiography, RE: Reassessment of the valvular disease 4. Continue current medications as prescribed. 5. Cardiology follow-up in 6 months or as needed. 6. ER with emergencies. Alcon Lott PA-C Department of Cardiology This chart was completed in part utilizing [employer] Speech Voice Recognition Software. Grammatical errors, random [...] Notes * Juan M Addison LPN - 08/15/2021 8:42 AM EDT Patient identified by full name and date of Chief Complaint Patient presents with Follow Up 6 month follow up. Denies chest pain, palpitations, SOB, dizziness and edema. Examination Room: 4 Name: Cl Reynolds Date of : (1940). Reason for Visit: 6 month follow up Interim Hospitalization(s): Denies Problems/Concerns: Denies Chest Pain/SOB: Denies [facility] Discussed: Not applicable [facility] a way you can talk to [...] Encounters Date Type Specialty Care Team Description 08/15/2021 Cardiac Studies Cardiac Studies Isch emic cardiomyopathy; Nonrheumatic aortic valve stenosis 08/20/2021 Imaging Radiology 11/25/2021 Office Visit Dermatology Kim Kong MD [address] [place] [address] [place] [id number] 02/10/2022 Office Visit Family Medicine Smith Orozco MD [address] [place] [address] [place] [address] 02/18/2022 Office Visit Cardiology Alcon Lott PA-C [address] [place] [phone] 05/23/2022 Pharmacy Cardiology [facility] Cardiology [place] [address] [place] [phone] Scheduled Orders Name Type Priority Associated Diagnoses Orde r Schedule ECHO, COMPLETE (2D), TRANS-THORACIC Echocardiology Routine Ischemic cardiomyopathy Nonrheumatic aortic valve stenosis Expected: 08/21/2021, Expires: 08/14/2022 VASC DUPLEX CAROTID BILAT Medical Imaging Routine Asymptomatic bilateral carotid artery stenosis Bilateral carotid bruits Expected: 08/21/2021, Expires: 09/13/2022 EKG EKG Routine HTN, goal below 130/80 Ordered: 08/15/2021 BASIC METABOLIC PANEL Lab Routine Nonspecific abnormal electrocardiogram (ECG) (EKG) Ordered: 08/15/2021 Health Maintenance Due Date Last Done Comments [...] of this encounter Implants Implanted Type 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 Device Identifier Shelf Expiration Date Model / Serial / Lot Marker Coronary [facility] - [id number] [place] [facility] [place] [employer] 10/13/2013 [facility] / [id number] Sut Steel 6 M654g - [id number] [place]planted:Qty: 5 [place]26/[place] [facility] [place] Chest DO NOT USE 10/14/2015 M654G / / [id number] [facility] 225-241 - [id number] Implanted:Qty: 1 on 12/26/2010 [place] [facility] [place] [employer] 225-241 / / [id number] Lens Intraoc 17.5 - [id number] - [id number] Implanted:Qty: 1 on 02/07/2019 by Quincy Paiz MD at OR [facility] Right: Eye [employer] 08/14/2023 [id number] / [id number] / [id number] Lens Intraoc 17.0 - [id number] - [id number] Implanted:Qty: 1 on 03/01/2019 by Quincy Paiz MD at OR [facility] Left: Eye [employer] 09/12/2022 [id number] / [id number] / [id number] documented as of this encounter Visit Diagnoses Diagnosis Dyslipidemia, goal LDL below 70- Primary Other and unspecified hyperlipidemia Statin intolerance Other drug allergy Atherosclerosis of nul[place] coronary artery of [place] heart without angina pectoris [place] (myocardial infarction) Old myocardial infarction Essential hypertension with goal blood pressure less than 140/90 HTN, goal below 130/80 Unspecified essential hypertension Ischemic cardiomyopathy Other specified forms of chronic ischemic heart disease Nonrheumatic aortic valve stenosis Aortic valve disorders Asymptomatic bilateral carotid artery stenosis Occlusion and stenosis of multiple and bilateral precerebral arteries without mention of cerebral infarction Bilateral carotid bruits Nonspecific abnormal electrocardiogram (ECG) (EKG) Ischemic cardiomyopathy Other specified forms of chronic ischemic heart disease Nonrheumatic aortic valve stenosis Aortic valve disorders documented in this encounter Advance Directives Documents on File Type Date Recorded 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 Care Teams Adult Basic Education Manager Relationship Specialty Start Date End Date Smith Orozco MD [address] [place] [address] [place] [address] PCP - General Family Medicine 08/03/18 documented as of this encounter"
--- OUTSIDE RECORDS SUMMARY | 2022-11-16 13:09 | External Medical Summary | Summary of Care ---
Author Name Unknown Organization [place] [address] Care Team Providers Care Labor Relations Worker Name Role Phone Smith Orozco MD Primary Care Provider Reason for Visit * Reason Comments Follow Up Here for 6-9 mo uppe r body skin check. sore inside mouth x several mo. Encounter Details Date Type Department Care Team Description 11/25/2021 Office Visit Dermatology [facility] [place] [address] [facility] [place] [address] Kim Kong MD [address] [facility] [place] [address] [place] (actinic keratosis)*; Hx of nonmelanoma skin cancer; Hx of actinic keratosis; Skin tumor; Mucocele of lip Allergies Active Allergy Reactions Severity Noted Date Comments Acetaminophen Renal complications 04/27/2009 Aspirin 08/13/2000 Stomach pain Cholestyramine 08/13/2000 Kidney pain Atorvastatin Calcium 04/28/2007 cramping Niacin Muscle pain 07/22/2007 Simvastatin Hives 08/13/2000 Ezetimibe 04/28/2007 Cramping ankles, turned feet inward documented as of this encounter (statuses as of 11/25/2021) Medications Medication Sig Dispensed Refills Start Date End Date Status GAVI 180 MG PO TABSIndications:[place] rgic rhinitis One pill by mouth once a day for allergies 30 5 07/23/2009 Active Additional Information Patient taking differently: Oral, Indications: as needed, Reported on 02/02/2019 MAGNESIUM OXIDE 200 MG PO TABSIndications:Cram p [...] with goal blood pressure less than 140/90,Old [place] (myocardial infarction) Take by mouth 1 Tablet in the morning. 90 Tablet 3 05/10/2021 Active Praluent 75 MG/ML Subcutaneous Solution Auto-injector (Alirocumab)Indicati ons:Dyslipidemia, goal LDL below 70,Statin intolerance,Atherosc lerosis of [place] coronary artery of [place] heart without angina pectoris,[place] (myocardial infarction) Inject under the skin 75 [...] Oral Capsule Delayed Release (PriLOSEC)Indication s:Peptic ulcer Take by mouth 1 Capsule in the morning. 90 Capsule 1 07/01/2021 Active Jardiance 25 MG Oral Tablet Take by mouth 1 Tablet in the morning. 90 Tablet 1 08/06/2021 Active Tretinoin 0.05 % External Cream (Retin-A)Indications [...] 320 MG Oral Tablet (Diovan)Indications: Atherosclerosis of [place] coronary artery of [place] heart without angina pectoris,Primary hypertension Take by mouth 0.5 Tablets in the morning AND 0.5 Tablets before bedtime. 90 Tablet 1 11/20/2021 Active Furosemide 20 MG Oral Tablet (Lasix)Indications:I schemic cardiomyopathy Take by mouth 1 Tablet in the morning. 90 Tablet 3 11/18/2021 Active documented as of this encounter (statuses as of 11/25/2021) Active Problems Problem Noted Date Carpal tunnel [...] to patient at prior appointment. Atherosclerosis of [place] co ronary artery of [place] heart without angina pectoris 11/30/2001 GENERAL OSTEOARTHROSIS Multiple pulmonary nodules Complex renal cyst Overview: 3.8 cm; L Old [place] (myocardial infarction) documented as of this encounter (statuses as of 11/25/2021) Resolved Problems Problem Noted Date Resolved Date Genomics Cardio Research Other*[id number] 201004/22/2016 Overview: Study Titile: Genomics Markers for Patients with Cardiovascular Disease Project # [id number] PI: Amalia Kingsley MD Please call [phone] with study related questions HTN, goal below [...] 01/24/2002 10/12/2015 Solar lentigo 10/27/2001 04/30/2016 ACUTE [place]; INFERIOR WALL;SUBSEQUENT EPISODE CARE 06/21/2013 HYPERTENSION NOS [...] as of this encounter (statuses as of 11/25/2021) Immunizations Name Administration Dates Next Due COVID-19 mRNA, LNP-s, No Pre serve, 2-Dose Series (InvenQuery) 01/09/2021,06/08/2020,05/18/2020 COVID-19, LNP-s, No Preserve , Johann-sucrose, [...] Progress Notes * Kim Kong MD - 11/25/2021 10:12 AM EDT SUBJECTIVE: History of Present Illness: Cl Reynolds is a 81 year old male seen today for follow up - skin check (partial, declines gown). Date Last Appointment: 04/29/2021 (in office), Visit date not found (telemedicine) Nonhealing spot on lip x months, uses salt water with some improvement. Hx AK and NMSC - SCC L [...] Capsule in the morning. 90 Capsule 1 Jardiance 25 MG Oral Tablet Take [...] Tablet in the morning. 90 Tablet 3 No current facility-administered medications for this visit. ALLERG IES: Acetaminophen, Aspirin, Cholestyramine, Lipitor [atorvastatin calcium], Niacin, Simvastatin, and Zetia [ezetimibe] OBJECTIVE: GEN: Healthy, alert, no distress, appears oriented, pleasant and cooperative. SKIN: Detailed exam of hair, face including lids and lips, neck and palpation of scalp completed and are normal except: 1. Lower lip mucosa - 4 mm fleshy pink dermal papule with nearby erosion 2. R lateral brow - keratotic pink papule, about 4 mm 3. Scars - L neck, L ear 4. [place] (2), R midbrow - keratotic pink papules ASSESS MENT/PLAN: 1. Mucocele likely, explained natural history, pt declines oral surgery consult, he will let us know if changing, consider bx if clinical pattern changes, R/O SCC 2. AK vs. NMSC - Biopsy (tangential) of the lesion noted above to establish and confirm diagnosis. The procedure, risks, benefits, alternatives and expected outcomes were discussed with the patient and consent was obtained for the procedure and relevant photos. Time out called. Patient identified, procedure verified, site identified and verified. Patient and staff present in agreement. Area prepped with alcohol and anesthetized with 0.5% lidocaine with epinephrine at 1:200,000 concentration. Biopsy of lesion performed. 20% AlCl and bandaging applied. Specimen sent to pathology. Patient instructed in routine post-op care. *curetted afterward - hold billing for path, final length of wound 6 mm 3. Scars - Hx NMSC - no evidence of recurrence Discussed sun protection with patient including proper use of sunscreens and protective clothing. ABCDs explained. 4. AKs - Cryosurgery explained to the patient, verbal consent obtained, patient, site and procedureverified, time-out called, and then cryotherapy was performed with Liquid Nitrogen via cryo spray unit to 3 lesions. Location noted in physical exam. Post op course explained. Consider blue light (hx in past) Follow-up: 6 months There were no barriers tolearning and no other pain was related to today's visit. The patient and/or person accompanying patient demonstrates understanding of the visit and treatment. Kim Kong MD 11/25/2021 10:12 AM documented in this encounter Nursing Notes * Elda Bennett LPN - 11/25/2021 10:05 AM EDT Patient identified by name and date of . Do you have any concerns about pain management for today's visit? No Living Will or Advance Directive for Health Care as noted on problem list. [facility] is a way you can talk to your provider online through e-mail. Would you like to sign up? I can activate it for you? ALREADY ACTIVE Chief Complaint Patient presents with Follow Up Here for 6-9 mo upper body skin check. sore inside mouth x several mo. documented in this encounter Plan of Treatment Upcoming Encounters Date Type Specialty Care Team Description 02/10/2022 Office Visit Family Medicine Smith Orozco MD [address] [place] [address] [place] [phone] 02/18/2022 Office Visit Cardiology Alcon Lott PA-C [address] [place] [address] 05/23/2022 Pharmacy Cardiology [facility] Cardiology Imelda [address] [place] [address] 06/02/2022 Office Visit Dermatology Kim Kong MD [address] [place] [address], [place] [address] Scheduled Orders Name Type Priority Associated Diagnoses Orde r Schedule SURGICAL PATHOLOGY Pathology Routine Skin tumor Ordered: 11/25/2021 Health Maintenance Due Date Last Done Comments [...] of this encounter Implants Implanted Type Area Punchboard Stuffer Device Identifier Shelf Expiration Date Model / Serial / Lot Marker Coronary [facility] - [id number] Implanted:Qty: 1 on 12[place] [facility] [place] Heart [employer] 10/13/2013 [facility] / / [id number] Sut Steel 6 M654g - [id number] Implanted:Qty: 5 on 12/26/2010 [place] [facility] [place] Chest DO NOT USE 10/14/2015 M654G / / [id number] Alonso [facility] 225-241 - [id number] Implanted:Qty: 1 on 12/26/2010 at [place] [facility] [place] Chest [employer] 225-241 / / [id number] Lens Intraoc 17.5 - [id number] - [id number] Implanted:Qty: 1 on 02/07/2019 by Quincy Paiz MD at OR [facility] Right: Eye [employer] 08/14/2023 [id number] / [id number] / [id number] Lens Intraoc 17.0 - [id number] - [id number] Implanted:Qty: 1 on 03/01/2019 by Quincy Paiz MD at OR [facility] Left: Eye [employer]OMB 09/12/2022 [id number] / [id number] / [id number] documented as of this encounter Visit Diagnoses Diagnosis AK (actinic keratosis)- Primary Actinic keratosis Hx of nonmelanoma skin cancer Personal history of other malignant neoplasm of skin Hx of actinic keratosis Personal history of diseases of skin and subcutaneous tissue Skin tumor Neoplasm of uncertain behavior of skin Mucocele of lip Diseases of lips documented in this encounter Advance Directives Documents on File Type Date Recorded Patient [employer] Advanced Operator Maintainer Expl 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 Care Teams Labor Relations Worker Relationship Specialty Start Date End Date Smith Orozco MD [address] [place] [address] [place] [phone] PCP - General Family Medicine 08/03/18 documented as of this encounter
--- OUTSIDE RECORDS SUMMARY | 2022-11-16 13:09 | External Medical Summary | Summary of Care ---
Author Name Unknown Organization [facility] Address [facility] [place] [address] Care Team Providers Care Vehicle Trimmer Name Role Phone Smith Orozco MD Primary Care Provider Encounter Details Date Type Department Care Team Description 12/17/2021 Immunization [facility] [place] [address] [place] [phone] [facility] Covid19 Vaccine [address] [place] [address] Arrived Allergies Active Allergy Reactions Severity Noted Date Comments Acetaminophen Renal complications 04/27/2009 Aspirin 08/13/2000 Stomach pain Cholestyramine 08/13/2000 Kidney pain Atorvastatin Calcium 04/28/2007 cramping Niacin Muscle pain 07/22/2007 Simvastatin Hives 08/13/2000 Ezetimibe 04/28/2007 Cramping ankles, turned feet inward documented as of this encounter (statuses as of 12/17/2021) Medications Medication Sig Dispensed Refills Start Date [...] DOSE ASA EC 81 MG PO TBECIndications:pm day, thursday Take by mouth. Indications: pmonday, thursday [...] with goal blood pressure less than 140/90,Old [place] (myocardial infarction) Take by mouth 1 Tablet in the morning. 90 Tablet 3 05/10/2021 Active Praluent 75 MG/ML Subcutaneous Solution Auto-injector (Alirocumab)Indicati ons:Dyslipidemia, goal LDL below 70,Statin intolerance,Atherosc lerosis of [place] coronary artery of [place] heart without angina pectoris,Old [place] (myocardial infarction) Inject under the skin 75 [...] 320 MG Oral Tablet (Diovan)Indications: Atherosclerosis of [place] coronary artery of [place] heart without angina pectoris,Primary hypertension Take by mouth 0.5 Tablets in the morning AND 0.5 Tablets before bedtime. 90 Tablet 1 11/20/2021 Active Furosemide 20 MG Oral Tablet (Lasix)Indications:I schemic cardiomyopathy Take by mouth 1 Tablet in the morning. 90 Tablet 3 11/18/2021 Active documented as of this encounter (statuses as of 12/17/2021) Active Problems Problem Noted Date Carpal tunnel [...] to patient at prior appointment. Atherosclerosis of [place] co ronary artery of [place] heart without angina pectoris 11/30/2001 GENERAL OSTEOARTHROSIS Multiple pulmonary nodules Complex renal cyst Overview: 3.8 cm; L Old [place] (myocardial infarction) documented as of this encounter (statuses as of 12/17/2021) Resolved Problems Problem Noted Date Resolved Date Genomics Cardio Research Other*[id number] 201004/22/2016 Overview: Study Titile: Genomics Markers for Patients with Cardiovascular Disease Project # [id number] PI: Amalia Kingsley MD Please call [phone] with study related questions HTN, goal below [...] 01/24/2002 10/12/2015 Solar lentigo 10/27/2001 04/30/2016 ACUTE [place]; INFERIOR WALL;SUBSEQUENT EPISODE CARE 06/21/2013 HYPERTENSION NOS [...] as of this encounter (statuses as of 12/17/2021) Immunizations Name Administration Dates Next Due COVID-19 mRNA, LNP-s, No Pre serve, 2-Dose Series (FanFueled) 01/09/2021,06/08/2020,05/18/2020 COVID-19, LNP-s, No Preserve , Johann-sucrose, [...] Office Visit Family Medicine Smith Orozco MD [address] [place] [address] [place] [phone] 02/18/2022 Office Visit Cardiology Alcon Lott PA-C [address] [place] [address] 05/23/2022 Pharmacy Cardiology [facility] Cardiology [facility] [address] [place] [address] 06/02/2022 Office Visit Dermatology Kim Kong MD [address] [place] [address], [place] [address] Health Maintenance Due Date Last Done Comments Depression Screening, Annual for Pts 12 and Over 08/29/2020 08/30/2019 Yearly B-12 07/12/2021 07/12/2020, 08/14, 08/19/2018, Additional history exists COVID-19 Vaccine (5 - Booster for Pfizer series) 08/13/2021 12/17/2021, 06/18/2021, 01/09/2021, Additional history exists DIABETES-HGBA1C EVERY 6 MONTHS [...] of this encounter Implants Implanted Type Area Foundation Relations Manager Device Identifier Shelf Expiration Date Model / Serial / Lot Marker Coronary [facility] - [id number] [place]:Q[place] 1 [place] [facility] [place] [employer] 10/13/2013 [facility] / / [id number] Sut Steel 6 M654g - [id number] Implanted:Qty: 5 on 12/26/2010 [place] [facility] [place] DO NOT USE 10/14/2015 M654G / / [id number] Alonso [facility] 225-241 - [id number] Implanted:Qty: 1 on 12/26/2010 [place] [facility] [place] Chest [employer] 225-241 / / [id number] Lens Intraoc 17.5 - [id number] - [id number] Implanted:Qty: 1 on 02/07/2019 by Quincy Paiz MD at [facility] Right: Eye [employer]OM[employer] 08/14/2023 [id number] / [id number] / [id number] Lens Intraoc 17.0 - [id number] - [id number] Implanted:Qty: 1 on 03/01/2019 by Quincy Paiz MD at OR [facility] Left: Eye [employer]OMB 09/12/2022 [id number] / [id number] / [id number] documented as of this encounter Advance Directives Documents on File Type Date Recorded 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 Care Teams Vehicle Trimmer Relationship Specialty Start Date End Date Smith Orozco MD [address] [place] [address] [place] [address] PCP - General Family Medicine 08/03/18 documented as of this encounter
--- OUTSIDE RECORDS SUMMARY | 2022-11-16 13:09 | External Medical Summary | Summary of Care ---
Author Name Unknown Organization [place] [address] Care Team Providers Care Business System Consultant Name Role Phone Smith Orozco MD Primary Care Provider [phone] Reason for Visit * Reason Comments Follow Up Here for 6-9 mo uppe r body skin check. sore inside mouth x several mo. Encounter Details Date Type Department Care Team Description 11/25/2021 Office Visit Dermatology [facility] [place] [address] [facility] [place] [address] Kim Kong MD [address] [place] [address] [place] (actinic keratosis)*; Hx of nonmelanoma skin [...] with goal blood pressure less than 140/90,Old [place] (myocardial infarction) Take by mouth 1 Tablet in the morning. 90 Tablet 3 05/10/2021 Active Praluent 75 MG/ML Subcutaneous Solution Auto-injector (Alirocumab)Indicati ons:Dyslipidemia, goal LDL below 70,Statin intolerance,Atherosc lerosis of [place] coronary artery of [place] heart without angina pectoris,Old [place] (myocardial infarction) Inject under the skin 75 [...] 320 MG Oral Tablet (Diovan)Indications: Atherosclerosis of [place] coronary artery of [place] heart without angina pectoris,Primary hypertension Take by [...] to patient at prior appointment. Atherosclerosis of [place] co ronary artery of [place] heart without angina pectoris 11/30/2001 GENERAL OSTEOARTHROSIS Multiple pulmonary nodules Complex renal cyst Overview: 3.8 cm; L Old CT (myocardial infarction) documented as of this encounter (statuses as of 11/25/2021) Resolved Problems Problem Noted Date Resolved Date Genomics Cardio Research Other*[id number] 201004/22/2016 Overview: Study Titile: Genomics Markers for Patients with Cardiovascular Disease Project # [id number] PI: Amalia Kingsley MD Please call [phone] with study related questions HTN, goal below [...] 01/24/2002 10/12/2015 Solar lentigo 10/27/2001 04/30/[address]; INFERIOR WALL;SUBSEQUENT EPISODE CARE 06/21/2013 HYPERTENSION NOS [...] mRNA, LNP-s, No Pre serve, 2-Dose Series ([employer]) 01/09/2021,06/08/2020,05/18/2020 COVID-19, LNP-s, No Preserve , Johann-sucrose, [...] Scars - L neck, L ear 4. [place] (2), R midbrow - keratotic pink papules ASSESS MENT/PLAN: 1. Mucocele likely, explained natural history, pt declines oral surgery consult, he will let us know if changing, consider bx if clinical pattern changes, R/O SCC 2. [place] vs. NMSC - Shave of the lesion noted above to remove and confirm diagnosis. The procedure, risks, benefits, alternatives and expected outcomes were discussed with the patient and consent was obtained. Time out called. Patient identified, procedure verified, site identified and verified. Patient and staff present in agreement. Area prepped with alcohol and anesthetized using 0.5% lidocaine with epinephrine at 1:200,000 concentration. Shave of lesion performed. 20% AlCl and bandaging [...] Office Visit Family Medicine Smith Orozco MD [address] [place] [address] [place] [phone] 02/18/2022 Office Visit Cardiology Alcon Lott PA-C [address] [place] [address] 05/23/2022 Pharmacy Cardiology [facility] Cardiology [facility] [address] [place] [address] 06/02/2022 Office Visit [facility]at[facility] [address] Scheduled Orders Name Type Priority Associated Diagnoses [...] of this encounter Implants Implanted Type Area Meat Wrapper Device Identifier Shelf Expiration Date Model / Serial / Lot Marker Coronary [facility] - [id number] [place]ed:Q[place] [facility] [place] Heart [employer] 10/13/2013 [facility] / / [id number] Sut Steel 6 M654g - [id number] Implanted:Qty: 5 on 12/26/2010 [place] [facility] [place] DO NOT USE 10/14/2015 M654G / / [id number] Alonso [facility] 225-241 - [id number] Implanted:Qty: 1 on 12/26/2010 [place] [facility] [place] Chest [employer] 225-241 / / [id number] Lens Intraoc 17.5 - [id number] - [id number] Implanted:Qty: 1 on 02/07/2019 by Quincy Paiz MD at [place] [facility] Right: Eye [employer]OM[employer] 08/14/2023 [id number] / [id number] / [id number] Lens Intraoc 17.0 - [id number] - [id number] Implanted:Qty: 1 on 03/01/2019 by Quincy Paiz MD at [place] [facility] Left: Eye [employer]OMB 09/12/2022 [id number] / [id number] / [id number] documented as of this encounter Visit Diagnoses [...] Documents on File Type Date Recorded Patient Stand In Expl 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 Care Teams Business System Consultant Relationship Specialty Start Date End Date Smith Oroczo MD [address] [place] [address] [place] [address] PCP - General Family Medicine 08/03/18 documented as of this encounter
--- OUTSIDE RECORDS SUMMARY | 2022-11-16 13:09 | External Medical Summary | Summary of Care ---
Author Name Unknown Organization [place] [address] Care Team Providers Care Carpenter Mate Name Role Phone Smith Orozco MD Primary Care Provider + [phone] Encounter Details Date Type Department Care Team Description 12/09/2021 Scan Encounter [facility] Medicine [address] [id number] Smith Orozco MD [address] [place] [address] [place] [address] <No scans attached> Allergies Active Allergy Reactions Severity Noted Date Comments Acetaminophen Renal complications 04/27/2009 Aspirin 08/13/2000 Stomach pain Cholestyramine 08/13/2000 Kidney pain Atorvastatin Calcium 04/28/2007 cramping Niacin Muscle pain 07/22/2007 Simvastatin Hives 08/13/2000 Ezetimibe 04/28/2007 Cramping ankles, turned feet inward documented as of this encounter (statuses as of 12/10/2021) Medications Medication Sig Dispensed Refills Start Date [...] LOW DOSE ASA EC 81 MG PO TBECIndications:pmon day, thursday Take by mouth. Indications: pm, thursday [...] with goal blood pressure less than 140/90,Old [place] (myocardial infarction) Take by mouth 1 Tablet in the morning. 90 Tablet 3 05/10/2021 Active Praluent 75 MG/ML Subcutaneous Solution Auto-injector (Alirocumab)Indicati ons:Dyslipidemia, goal LDL below 70,Statin intolerance,Atherosc lerosis of [place] coronary artery of [place] heart without angina pectoris,Old [place] (myocardial infarction) Inject under the skin 75 [...] 320 MG Oral Tablet (Diovan)Indications: Atherosclerosis of [place] coronary artery of [place] heart without angina pectoris,Primary hypertension Take by mouth 0.5 Tablets in the morning AND 0.5 Tablets before bedtime. 90 Tablet 1 11/20/2021 Active Furosemide 20 MG Oral Tablet (Lasix)Indications:I schemic cardiomyopathy Take by mouth 1 Tablet in the morning. 90 Tablet 3 11/18/2021 Active documented as of this encounter (statuses as of 12/10/2021) Active Problems Problem Noted Date Carpal tunnel [...] to patient at prior appointment. Atherosclerosis of [place] co ronary artery of [place] heart without angina pectoris 11/30/2001 GENERAL OSTEOARTHROSIS Multiple pulmonary nodules Complex renal cyst Overview: 3.8 cm; L Old [place] (myocardial infarction) documented as of this encounter (statuses as of 12/10/2021) Resolved Problems Problem Noted Date Resolved Date Genomics Cardio Research Other*[id number] 201004/22/2016 Overview: Study Titile: Genomics Markers for Patients with Cardiovascular Disease Project # [id number] PI: Amalia Kingsley MD Please call [phone] with study related questions HTN, goal below [...] 01/24/2002 10/12/2015 Solar lentigo 10/27/2001 04/30/2016 ACUTE [place]; INFERIOR WALL;SUBSEQUENT EPISODE CARE 06/21/2013 HYPERTENSION NOS [...] as of this encounter (statuses as of 12/10/2021) Immunizations Name Administration Dates Next Due COVID-19 mRNA, LNP-s, No Pre serve, 2-Dose Series (Parascale) 01/09/2021,06/08/2020,05/18/2020 COVID-19, LNP-s, No Preserve , Johann-sucrose, [...] Office Visit Family Medicine Smith Orozco MD [address] [place] [address] [place] [address] 02/18/2022 Office Visit Cardiology Alcon Lott PA-C [address] [place] [address] 05/23/2022 Pharmacy Cardiology [facility] Cardiology [facility] [address] [place] [address] 06/02/2022 Office Visit Dermatology Kim Kong MD [address] [place] [address], [place] [address] Health Maintenance Due Date Last Done Comments Depression Screening, Annual for Pts 12 and Over 08/29/2020 08/30/2019 Yearly B-12 07/12/2021 07/12/2020, 08/14, 08/19/2018, Additional history exists COVID-19 Vaccine (5 - Booster for Pfizer series) 08/13/2021 06/18/2021, 01/09/2021, 06/08/2020, Additional history exists DIABETES-HGBA1C EVERY 6 MONTHS [...] of this encounter Implants Implanted Type Area Sales Clerk Device Identifier Shelf Expiration Date Model / Serial / Lot Marker Coronary [facility] - [id number] Implanted:Qty: 1 on 12/26/2010 at [place] [facility] N/A: Heart [employer] 10/13/2013 AM-SD / / [id number] Sut Steel 6 M654g - [id number] Implanted:Qty: 5 on 12/26/2010 at [place] [facility] Chest DO NOT USE 10/14/2015 M654G / / [id number] Alonso [place] 225-241 - [id number] Implanted:Qty: 1 on 12/26/2010 at [place] [facility] Chest [employer] 225-241 / / [id number] Lens Intraoc 17.5 - [id number] - [id number] Implanted:Qty: 1 on 02/07/2019 by Quincy Paiz MD at OR [facility] Right: Eye BAUSCH & LOMB 08/14/2023 [id number] / [id number] / [id number] Lens Intraoc 17.0 - [id number] - [id number] Implanted:Qty: 1 on 03/01/2019 by Quincy Paiz MD at OR [facility] Left: Eye BAUSCH & LOMB 09/12/2022 [id number] / [id number] / [id number] documented as of this encounter Advance Directives Documents on File Type Date Recorded Patient Stitchdown Toe Former Expl 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 Care Teams Carpenter Mate Relationship Specialty Start Date End Date Smith Orozco MD [address] [place] [address] [place] [address] PCP - General Family Medicine 08/03/18 documented as of this encounter
--- OUTSIDE RECORDS SUMMARY | 2022-11-16 13:09 | External Medical Summary | Summary of Care ---
Author Name Unknown Organization [facility] Address [facility] [place] [address] Care Team Providers Care Lye Boiler Name Role Phone Smith Orozco MD Primary Care Provider Reason for Visit * Reason Onset Date Comments Medication Refill 11/17/2021 Encounter Details Date Type Department Care Team Description 11/17/2021 Refill Cardiology [address] [place] [phone] Karly Adler PA-C [address] [facility] [place] [address] Ischemic cardiomyopathy* Allergies Active Allergy Reactions Severity Noted Date Comments Acetaminophen Renal complications 04/27/2009 Aspirin 08/13/2000 Stomach pain Cholestyramine 08/13/2000 Kidney pain Atorvastatin Calcium 04/28/2007 cramping Niacin Muscle pain 07/22/2007 Simvastatin Hives 08/13/2000 Ezetimibe 04/28/2007 Cramping ankles, turned feet inward documented as of this encounter (statuses as of 11/18/2021) Medications Medication Sig Dispensed Refills Start Date End Date Status GAVI 180 MG PO TABSIndications:All ergic rhinitis One pill by mouth once a day for allergies 30 5 07/23/2009 Active Additional Information Patient taking differently: Oral, Indications: as needed, Reported on 02/02/2019 MAGNESIUM OXIDE 200 MG PO TABSIndications:Ribbon Lap Machine Tender mp in limb one tablet twice a [...] with goal blood pressure less than 140/90,Old [place] (myocardial infarction) Take by mouth 1 Tablet in the morning. 90 Tablet 3 05/10/2021 Active Valsartan 320 MG Oral Tablet (Diovan)Indications :Atherosclerosis of [place] coronary artery of [place] heart without angina pectoris,Primary hypertension Take by mouth 0.5 Tablets in the morning AND 0.5 Tablets before bedtime. 90 Tablet 1 05/24/2021 Active Praluent 75 MG/ML Subcutaneous Solution Auto-injector (Alirocumab)Indicat ions:Dyslipidemia, goal LDL below 70,Statin intolerance,Atheros clerosis of [place] coronary artery of [place] heart without angina pectoris,Old [place] (myocardial infarction) Inject under the skin 75 [...] the morning. 90 Tablet 3 11/18/2021 Active Terazosin HCl 5 MG Oral Capsule (Hytrin) Take 1 Cap by mouth daily. 90 Cap 3 11/20/2020 2 Discontinu ed(Refill) Furosemide 20 MG Oral Tablet (Lasix) TAKE 1 TABLET BY MOUTH EVERY DAY 90 Tab 3 12/17/2020 2 Discontinu ed(Refill) documented as of this encounter (statuses as of 11/18/2021) Active Problems Problem Noted Date Carpal tunnel [...] to patient at prior appointment. Atherosclerosis of [place] co ronary artery of [place] heart without angina pectoris 11/30/2001 GENERAL OSTEOARTHROSIS Multiple pulmonary nodules Complex renal cyst Overview: 3.8 cm; L Old [place] (myocardial infarction) documented as of this encounter (statuses as of 11/18/2021) Resolved Problems Problem Noted Date Resolved Date Genomics Cardio Research Other*[id number] 201004/22/2016 Overview: Study Titile: Genomics Markers for Patients with Cardiovascular Disease Project # [id number] PI: Amalia Kingsley MD Please call [phone] with study related questions HTN, goal below [...] 01/24/2002 10/12/2015 Solar lentigo 10/27/2001 04/30/2016 ACUTE [place]; INFERIOR WALL;SUBSEQUENT EPISODE CARE 06/21/2013 HYPERTENSION NOS [...] as of this encounter (statuses as of 11/18/2021) Immunizations Name Administration Dates Next Due COVID-19 mRNA, LNP-s, No Pre serve, 2-Dose Series ([employer]) 01/09/2021,06/08/2020,05/18/2020 COVID-19, LNP-s, No Preserve , Johann-sucrose, [...] Telephone Encounter - Karly Adler PA-C - 11/18/2021 9:45 AM EDT Signed Prescriptions: Disp Refills Terazosin HCl 5 MG Oral Capsule (Hytrin) 90 Cap*3 Sig: Take by mouth 1 Capsule in the morning. Authorizing Provider: KARLY ADLER Furosemide 20 MG Oral Tablet (Lasix) 90 Tab*3 Sig: Take by mouth 1 Tablet in the morning. Authorizing Provider: KARLY ADLER < BR> * Telephone Encounter - Melida Keita LPN - 11/18/2021 2:24 AM EDT Pending Prescriptions: Disp Refills Terazosin HCl 5 MG Oral Capsule (Hytrin) 90 Cap*3 Sig: Take by mouth 1 Capsule in the morning. Furosemide 20 MG Oral Tablet (Lasix) 90 Tab*3 Sig: Take by mouth 1 Tablet in the morning. * Telephone Encounter - Melida KeitaKYLE - 11/18/2021 2:23 AM EDT Did you pend patient's preferred pharmacy and medication before forwarding?yes Pharmacy: [id number] [id number] [facility] Pending Prescriptions: Disp Refills Terazosin HCl 5 MG Oral Capsule (Hytrin) 90 Cap*3 Sig: Take by mouth 1 Capsule in the morning. Furosemide 20 MG Oral Tablet (Lasix) 90 Tab*3 Sig: Take by mouth 1 Tablet in the morning. Last Visit: 08/15/2021 (in office), Visit date not found (telemedicine) Next Visit: 02/18/2022 If no future appointments scheduled, and last appointment is greater than a year ago, please schedule patient for a follow-up appointment Last date the medication was ordered: 12/17/2020 Is this request for a controlled substance?No Urine Drug Screen:No results found. However, due to the size of the patient record, not all encounters were searched. Please check Results Review for a complete set of results. Patient Phone Numbers Labs: Lab Results Component Value Date/Time CREAT 1.0 02/25/2021 09:44 AM CREAT 1.0 03/01/2020 02:51 PM CREAT 1.0 01/25/1996 10:05 AM POTASSIUM 4.4 02/25/2021 09:44 AM POTASSIUM 4.4 03/01/2020 02:51 PM POTASSIUM [...] 29 01/25/1996 10:05 AM HGBA1C 7.1 (A) 05/20/2021 12:00 AM HGBA1C 7.5 (H) 03/01/2020 02:51 PM HGBA1C 5.7 05/16/1996 10:22 AM documented in this encounter Plan of Treatment Upcoming Encounters Date Type Specialty Care Team Description 11/25/2021 Office [facility] [address] 02/10/2022 Office Visit Family Medicine Smith Orozco MD [address] [place] [address] [place] [phone] 02/18/2022 Office Visit Cardiology Karly Adler PA-C [address] [place] [address] 05/23/2022 Pharmacy Cardiology [facility] Cardiology [facility] [address] [place] [address] Health Maintenance Due Date Last Done Comments Depression Screening, Annual for Pts 12 and Over 08/29/2020 08/30/2019 Yearly B-12 07/12/2021 07/12/2020, 08/14, 08/19/2018, Additional history exists Influenza Vaccine (FLU shot) (#1) 2021 12/01/2020, 11/22/2019, 11/22/2018, Additional history exists DIABETES-HGBA1C EVERY 6 MONTHS [...] of this encounter Implants Implanted Type Area Dispensary Clerk Device Identifier Shelf Expiration Date Model / Serial / Lot Marker Coronary [facility] - [id number] Implanted:Qty: 1 on 12/26/2010 at [place] [facility] N/A: Heart [employer] 10/13/2013 [facility] / / [id number] Sut Steel 6 M654g - [id number] Implanted:Qty: 5 on 12/26/2010 at [place] [facility] Chest DO NOT USE 10/14/2015 M654G / / [id number] Alonso Pascual 225-241 - [id number] Implanted:Qty: 1 on 12/26/2010 at OR [facility] Chest [employer] 225-241 / / [id number] Lens Intraoc 17.5 - [id number] - [id number] Implanted:Qty: 1 on 02/07/2019 by Quincy Paiz MD at OR [facility] Right: Eye BAUSCH [employer] LOMB 08/14/2023 [id number] / [id number] / [id number] Lens Intraoc 17.0 - [id number] - [id number] Implanted:Qty: 1 on 03/01/2019 by Quincy Paiz MD at OR [facility] Left: Eye BAUSCH & LOMB 09/12/2022 [id number] / [id number] / [id number] documented as of this encounter Visit Diagnoses Diagnosis Ischemic cardiomyopathy- Primary Other specified forms of chronic ischemic heart disease documented in this encounter Advance Directives Documents on File Type Date Recorded Patient Sole Tier Expl 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 Care Teams Lye Boiler Relationship Specialty Start Date End Date Smith Orozco MD [address] [place] [address] [place] [address] PCP - General Family Medicine 08/03/18 documented as of this encounter
--- OUTSIDE RECORDS SUMMARY | 2022-11-16 13:09 | External Medical Summary | Summary of Care ---
Author Name Unknown Organization [place] [address] Care Team Providers Care Mail Sorter Name Role Phone Smith Orozco MD Primary Care Provider Reason for Visit * Reason Onset Date Comments Test Results Biopsy 11/29/2021 Encounter Details Date Type Department Care Team Description 11/29/[address] [facility] [address] [facility] [place] [address] Kim Kong MD [facility] [address] Test Results Biopsy Allergies Active Allergy Reactions Severity Noted Date Comments Acetaminophen Renal complications 04/27/2009 Aspirin 08/13/2000 Stomach pain Cholestyramine 08/13/2000 Kidney pain Atorvastatin Calcium 04/28/2007 cramping Niacin Muscle pain 07/22/2007 Simvastatin Hives 08/13/2000 Ezetimibe 04/28/2007 Cramping ankles, turned feet inward documented as of this encounter (statuses as of 11/29/2021) Medications Medication Sig Dispensed Refills Start Date [...] with goal blood pressure less than 140/90,Old [place] (myocardial infarction) Take by mouth 1 Tablet in the morning. 90 Tablet 3 05/10/2021 Active Praluent 75 MG/ML Subcutaneous Solution Auto-injector (Alirocumab)Indicati ons:Dyslipidemia, goal LDL below 70,Statin intolerance,Atherosc lerosis of [place] coronary artery of [place] heart without angina pectoris,Old [place] (myocardial infarction) Inject under the skin 75 [...] 320 MG Oral Tablet (Diovan)Indications: Atherosclerosis of [place] coronary artery of [place] heart without angina pectoris,Primary hypertension Take by mouth 0.5 Tablets in the morning AND 0.5 Tablets before bedtime. 90 Tablet 1 11/20/2021 Active Furosemide 20 MG Oral Tablet (Lasix)Indications:I schemic cardiomyopathy Take by mouth 1 Tablet in the morning. 90 Tablet 3 11/18/2021 Active documented as of this encounter (statuses as of 11/29/2021) Active Problems Problem Noted Date Carpal tunnel [...] to patient at prior appointment. Atherosclerosis of [place] co ronary artery of [place] heart without angina pectoris 11/30/2001 GENERAL OSTEOARTHROSIS Multiple pulmonary nodules Complex renal cyst Overview: 3.8 cm; L Old [place] (myocardial infarction) documented as of this encounter (statuses as of 11/29/2021) Resolved Problems Problem Noted Date Resolved Date Genomics Cardio Research Other*[id number] 201004/22/2016 Overview: Study Titile: Genomics Markers for Patients with Cardiovascular Disease Project # [id number] PI: Amalia Kingsley MD Please call [phone] with study related questions HTN, goal below [...] 01/24/2002 10/12/2015 Solar lentigo 10/27/2001 04/30/2016 ACUTE [place]; INFERIOR WALL;SUBSEQUENT EPISODE CARE 06/21/2013 HYPERTENSION NOS [...] as of this encounter (statuses as of 11/29/2021) Immunizations Name Administration Dates Next Due COVID-19 mRNA, LNP-s, No Pre serve, 2-Dose Series (Virtual Paper) 01/09/2021,06/08/2020,05/18/2020 COVID-19, LNP-s, No Preserve , Johann-sucrose, [...] encounter Miscellaneous Notes * Telephone Encounter - Merry Ba LPN - 11/29/2021 11:24 AM EDT Patient aware of results. Area healing well. * Telephone Encounter - Merry Ba LPN - 11/29/2021 9:35 AM EDT Tried to reach patient, voicemail cut off. Will try again later. * Telephone Encounter - Amber Bradford LPN - 11/29/2021 7:16 AM EDT ----- Message from Kim Kong MD sent at 11/28/2021 7:21 PM EDT ----- Patient Phone Numbers Please call pt - precancer on brow, curetted afterward, will observe, pt follows every 6 months A. Skin, right lateral brow: Actinic keratosis, with adnexal involvement documented in this encounter Plan of Treatment Upcoming Encounters Date Type Specialty Care Team Description 02/10/2022 Office Visit Family Medicine Smith Orozco MD [address] [place] [address] [place] [address] 02/18/2022 Office Visit Cardiology Alcon Lott PA-C [address] [place] [address] 05/23/2022 Pharmacy Cardiology [facility] Cardiology [facility] [address] [place] [address] 06/02/2022 Office Visit Dermatology Kim Kong MD [address] [place], [place] [address] [address] Health Maintenance Due Date Last Done Comments [...] of this encounter Implants Implanted Type Area Maintenance Analyst Device Identifier Shelf Expiration Date Model / Serial / Lot Marker Coronary [facility] - [id number] Implanted:Qty: 1 on 12/26/2010 [place] [facility] [place]A: Heart [employer] 10/13/2013 [facility] / / [id number] Sut Steel 6 M654g - [id number] Implanted:Qty: 5 on 12/26/2010 at [place] [facility] [place] Chest DO NOT USE 10/14/2015 M654G / / [id number] Band Ankur 225-241 - [id number] Implanted:Qty: 1 on 12/26/2010 at [place] [facility] [place] Chest [employer] 225-241 / / [id number] Lens Intraoc 17.5 - [id number] - [id number] Implanted:Qty: 1 on 02/07/2019 by Quincy Paiz MD at OR [facility] Right: Eye BAUSCH & LOMB 08/14/2023 [id number] / [id number] / [id number] Lens Intraoc 17.0 - [id number] - [id number] Implanted:Qty: 1 on 03/01/2019 by Quincy Paiz MD at OR [facility] Left: Eye BAUSCH & LOMB 09/12/2022 [id number] / [id number] / [id number] documented as of this encounter Advance Directives Documents on File Type Date Recorded 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 Care Teams Mail Sorter Relationship Specialty Start Date End Date Smith Orozco MD [address] [place] [address] [place] [address] PCP - General Family Medicine 08/03/18 documented as of this encounter
--- OUTSIDE RECORDS SUMMARY | 2022-11-16 13:09 | External Medical Summary | Summary of Care ---
Author Name Unknown Organization [place] [address] Care Team Providers Care Daycare Provider Name Role Phone Smith Orozco MD Primary Care Provider Reason for Visit * Reason Onset Date Comments Test Results Biopsy 11/29/2021 Encounter Details Date Type Department Care Team Description 11/29/2021 Telephone Dermatology [facility] [place] [address] Kim Kong MD [facility] [address] Test Results Biopsy Allergies Active Allergy Reactions [...] goal LDL below 70,Statin intolerance,Atherosc lerosis of [place] coronary artery of [place] heart without angina pectoris,Old [place] (myocardial infarction) [...] 320 MG Oral Tablet (Diovan)Indications: Atherosclerosis of [place] coronary artery of [place] heart without angina pectoris,Primary hypertension Take by [...] to patient at prior appointment. Atherosclerosis of [place] co ronary artery of [place] heart without angina pectoris 11/30/2001 GENERAL OSTEOARTHROSIS Multiple pulmonary nodules Complex renal cyst Overview: 3.8 cm; L Old [place] (myocardial infarction) documented as of this encounter (statuses as of 11/29/2021) Resolved Problems Problem Noted Date Resolved Date Genomics Cardio Research Other*[id number] 201004/22/2016 Overview: Study Titile: Genomics Markers for Patients with Cardiovascular Disease Project # [id number] PI: Amalia Kingsley MD Please call [phone] with study related questions HTN, goal below [...] mRNA, LNP-s, No Pre serve, 2-Dose Series (Omnisens) 01/09/2021,06/08/2020,05/18/2020 COVID-19, LNP-s, No Preserve , Johann-sucrose, [...] Office Visit Family Medicine Smith Orozco MD [address] [place] [address] [place] [address] 02/18/2022 Office Visit Cardiology Alcon Lott PA-C [address] [place] [address] 05/23/2022 Pharmacy Cardiology [facility] Cardiology [facility] [address] [place] [address] 06/02/2022 Office Visit Dermatology Kim Kong MD [address] [place], [place] [address] [address] Health Maintenance Due Date Last Done Comments [...] of this encounter Implants Implanted Type Area Product Safety Associate Device Identifier Shelf Expiration Date Model / Serial / Lot Marker Coronary [facility]-Sd - [id number] Implanted:Qty: 1 on 12/26/2010 at OR [facility] N/A: Heart [employer] 10/13/2013 [facility] / / [id number] Sut Steel 6 M654g - [id number] Implanted:Qty: 5 on 12/26/2010 at OR [facility] Chest DO NOT USE 10/14/2015 M654G / / [id number] Alonso Pascual 225-367 - [id number] Implanted:Qty: 1 on 12/26/2010 at OR [facility] Chest [employer] 225-241 / / [id number] Lens Intraoc 17.5 - [id number] - [id number] Implanted:Qty: 1 on 02/07/2019 by Quincy Paiz MD at OR [facility] Right: Eye [employer]USCH [employer] LOMB 08/14/2023 [id number] / [id number] / [id number] Lens Intraoc 17.0 - [id number] - [id number] Implanted:Qty: 1 on 03/01/2019 by Quincy Paiz MD at OR [facility] Left: Eye [employer]USCH [employer] LOMB 09/12/2022 [id number] / [id number] / [id number] documented as of this encounter Advance Directives Documents on File Type Date Recorded 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 Care Teams Daycare Provider Relationship Specialty Start Date End Date Smith Orozco MD [address] [place] [address] [place] [address] PCP - General Family Medicine 08/03/18 documented as of this encounter
--- OUTSIDE RECORDS SUMMARY | 2022-11-16 13:09 | External Medical Summary | Summary of Care ---
Author Name Unknown Organization [facility] Address [facility] [place] [address] Care Team Providers Care Rn Anesthetist Name Role Phone Smith Orozco MD Primary Care Provider Reason for Visit * Reason Onset Date Comments Medication Administration 11/19/2021 Flu an d/or Pneumo Inj Encounter Details Date Type Department Care Team Description 11/19/2021 Immunization Ancillary [address] [place] [address] [facility] [address] [place] [address] Need for prophylactic vaccination and inoculation against influenza Allergies Active Allergy Reactions Severity Noted Date Comments Acetaminophen Renal complications 04/27/2009 Aspirin 08/13/2000 Stomach pain Cholestyramine 08/13/2000 Kidney pain Atorvastatin Calcium 04/28/2007 cramping Niacin Muscle pain 07/22/2007 Simvastatin Hives 08/13/2000 Ezetimibe 04/28/2007 Cramping ankles, turned feet inward documented as of this encounter (statuses as of 11/19/2021) Medications Medication Sig Dispensed Refills Start Date [...] 05/10/2021 Active Valsartan 320 MG Oral Tablet (Diovan)Indications: Atherosclerosis of [place] coronary artery of [place] heart without angina pectoris,Primary hypertension Take by mouth 0.5 Tablets in the morning AND 0.5 Tablets before bedtime. 90 Tablet 1 05/24/2021 Active Praluent 75 MG/ML Subcutaneous Solution Auto-injector (Alirocumab)Indicati ons:Dyslipidemia, goal LDL below 70,Statin intolerance,Atherosc lerosis of [place] coronary artery of [place] heart without angina pectoris,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) [...] as of this encounter (statuses as of 11/19/2021) Active Problems Problem Noted Date Carpal tunnel [...] to patient at prior appointment. Atherosclerosis of [place] co ronary artery of [place] heart without angina pectoris 11/30/2001 GENERAL OSTEOARTHROSIS Multiple pulmonary nodules Complex renal cyst Overview: 3.8 cm; L 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) documented as of this encounter (statuses as of 11/19/2021) Resolved Problems Problem Noted Date Resolved Date Genomics Cardio Research Other*[id number] 201004/22/2016 Overview: Study Titile: Genomics Markers for Patients with Cardiovascular Disease Project # [id number] PI: Amalia Kingsley MD Please call [phone] with study related questions HTN, goal below [...] as of this encounter (statuses as of 11/19/2021) Immunizations Name Administration Dates Next Due COVID-19 mRNA, LNP-s, No Pre serve, 2-Dose Series (Pfizer) 01/09/2021,06/08/2020,05/18/2020 COVID-19, LNP-s, No Preserve , Johann-sucrose, [...] as of this encounter Progress Notes * Melida Beverly LPN - 11/19/2021 12:09 PM EDT PRE - ADMINISTRATION DOCUMENTATION Are you experiencing any cold symptoms or fever? No Have you had Guillain-[place] Syndrome (an illness that causes paralysis) within the last 6 weeks? No Have you had the flu shot in the past? YES Have you ever had a reaction to the flu shot? No Melida Beverly LPN, 11/19/2021 12:09 PM Immunization Administration Documentation Time Out Procedure Performed: Yes Patient Identified (Ask Name/Date of ): Yes Does the patient have a fever greater than 101 degrees today? No Patient allergic to latex? No VFC Stock: No Immunization(s) verified: Yes, Immunization Name: Flu, VIS Sheet(s) given: Yes Verified Side and Site: Yes Verified Shot(s) with Parent(s)/Patient: Yes documented in this encounter Plan of Treatment Upcoming Encounters Date Type Specialty Care Team Description 11/25/2021 Office Visit Dermatology Kim Kong MD [address] [place] [address], [place] [address] 02/10/2022 Office Visit Family Medicine Smith Orozco MD [address] [place] [address] [place] [address] 02/18/2022 Office Visit Cardiology Alcon Lott PA-C [address] [place] [address] 05/23/2022 Pharmacy Cardiology [facility] Cardiology [facility] [address] [place] [address] Health Maintenance Due Date Last Done Comments [...] of this encounter Implants Implanted Type Area Vp Foundation Device Identifier Shelf Expiration Date Model / Serial / Lot Marker Coronary [facility] - [id number] Implanted:Qty: 1 on 12/26/2010 at OR [facility] N/A: Heart [employer] 10/13/2013 [facility] / / [id number] Sut Steel 6 M654g - [id number] Implanted:Qty: 5 on 12/26/2010 at OR [facility] Chest DO NOT USE 10/14/2015 M654G / / [id number] Alonso Pascual 225-634 - [id number] Implanted:Qty: 1 on 12/26/2010 at OR [facility] Chest [employer] 225-241 / / [id number] Lens Intraoc 17.5 - [id number] - [id number] Implanted:Qty: 1 on 02/07/2019 by Quincy Paiz MD at OR [facility] Right: Eye [employer] 08/14/2023 [id number] / [id number] / [id number] Lens Intraoc 17.0 - [id number] - [id number] Implanted:Qty: 1 on 03/01/2019 by Quincy Paiz MD at OR [facility] Left: Eye [employer]OM[employer] 09/12/2022 [id number] / [id number] / [id number] documented as of this encounter Visit Diagnoses Diagnosis Need for prophylactic vaccination and inoculation against influenza documented in this encounter Advance Directives Documents on File Type Date Recorded 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 Care Teams Rn Anesthetist Relationship Specialty Start Date End Date Smith Orozco MD [address] [place] [address] [place] [id number] PCP - General Family Medicine 08/03/18 documented as of this encounter
--- OUTSIDE RECORDS SUMMARY | 2022-11-16 13:10 | External Medical Summary | Summary of Care ---
Author Name Unknown Organization [place] [address] Care Team Providers Care Insurance Defense Paralegal Name Role Phone Smith Orozco MD Primary Care Provider Reason for Visit * Reason Comments eRx-Medication Refill Encounter Details Date Type Department Care Team Description 06/05/2021 Refill Cardiology, [facility] [address] [place] [address] Karly Adler PA-C [address] [place] [address] Dyslipidemia, goal LDL below 70*; Atherosclerosis of [place] coronary artery of [place] heart without angina pectoris; Old [place] (myocardial infarction); Statin intolerance Allergies Active Allergy Reactions Severity Noted Date Comments Acetaminophen Renal complications 04/27/2009 Aspirin 08/13/2000 Stomach pain Cholestyramine 08/13/2000 Kidney pain Atorvastatin Calcium 04/28/2007 cramping Niacin Muscle pain 07/22/2007 Simvastatin Hives 08/13/2000 Ezetimibe 04/28/2007 Cramping ankles, turned feet inward documented as of this encounter (statuses as of 06/06/2021) Medications Medication Sig Dispensed Refills Start Date [...] TABS one pill each day 0 Active tretinoin (RETIN-A) 0.05 % creamIndications: Actinic keratosis APPLY NIGHTLY TO FACE DIRECTED,CAN MIX WITH PONDS 45 g 5 03/28/2019 Active Sweetwater EnergyTOUCH ULTRA STRPIndications:T ype 2 diabetes mellitus with hemoglobin A1c goal of less than 8.0% (HCC) USE ONE TEST STRIP TO TEST BLOOD SUGAR LEVELS TWICE A DAY 200 Strip 5 11/11/2019 Active EvisorsTouch UltraSoft Lancets MISCIndications:T ype 2 diabetes mellitus with hemoglobin A1c goal of less than 8.0% (HCC) USE ONE LANCET TO TEST BLOOD SUGAR LEVELS TWICE A DAY 200 Each 3 11/15/2019 Active glipiZIDE ER 10 MG Oral Tablet Extended Release 24 Hour (Glucotrol XL)Indications:Ty pe 2 diabetes mellitus with hemoglobin A1c goal of less than 8.0% (HCC) TAKE 1 TABLET BY MOUTH TWICE A DAY 180 Tab 1 08/09/2020 Active Jardiance 25 MG Oral Tablet Take 1 Tab by mouth daily. 0 08/06/2020 Active metFORMIN HCl 1000 MG Oral Tablet (Glucophage)Indic ations:Type 2 diabetes mellitus with diabetic nephropathy (HCC),Type 2 diabetes mellitus with hemoglobin A1c goal of less than 8.0% (HCC) TAKE 1 TABLET BY MOUTH TWICE A DAY WITH BREAKFAST AND DINNER 180 Tab 2 10/04/2020 Active Basaglar KwikPen 100 UNIT/ML Subcutaneous Solution [...] EVERY DAY 90 Tab 3 12/17/2020 Active Omeprazole 20 MG Oral Capsule Delayed Release (PriLOSEC)Indicat ions:Peptic ulcer Take 1 Cap by mouth daily. 90 Cap 1 01/07/2021 Active Finasteride 5 MG Oral Tablet (Proscar)Indicati [...] less than 140/90,Old [place] (myocardial infarction) Take by mouth 1 Tablet in the morning. 90 Tablet 3 05/10/2021 Active Valsartan 320 MG Oral Tablet (Diovan)Indicatio ns:Atherosclerosi s of [place] coronary artery of [place] heart without angina pectoris,Primary hypertension Take by mouth 0.5 Tablets in the morning AND 0.5 Tablets before bedtime. 90 Tablet 1 05/24/2021 Active Praluent 75 MG/ML Subcutaneous Solution Auto-injector (Alirocumab)Indic ations:Atheroscle rosis of [place] coronary artery of [place] heart without angina pectoris,Dyslipid emia, goal LDL below 70,Old [place] (myocardial infarction),Stati n intolerance INJECT 75 MG UNDER THE SKIN EVERY 14 DAYS. 1 mL 3 06/06/2021 Active Praluent 75 MG/ML Subcutaneous Solution Auto-injector (Alirocumab)Indic ations:Atheroscle rosis of [place] coronary artery of [place] heart without angina pectoris,Dyslipid emia, goal LDL below 70,Old [place] (myocardial infarction),Stati n intolerance Inject 75 mg under the skin every 14 days. 3 mL 3 07/12/2020 2 Discontinued documented as of this encounter (statuses as of 06/06/2021) Active Problems Problem Noted Date Carpal tunnel [...] to patient at prior appointment. Atherosclerosis of [place] co ronary artery of [place] heart without angina pectoris 11/30/2001 GENERAL OSTEOARTHROSIS Multiple pulmonary nodules Complex renal cyst Overview: 3.8 cm; L Old [place] (myocardial infarction) documented as of this encounter (statuses as of 06/06/2021) Resolved Problems Problem Noted Date Resolved Date Genomics Cardio Research Other*[id number] 201004/22/2016 Overview: Study Titile: Genomics Markers for Patients with Cardiovascular Disease Project # [id number] PI: Amalia Kingsley MD Please call [phone] with study related questions HTN, goal below [...] as of this encounter (statuses as of 06/06/2021) Immunizations Name Administration Dates Next Due COVID-19 mRNA, LNP-s, No Pre serve, 2-Dose Series (Voucheres) 01/09/2021,06/08/2020,05/18/2020 Pneumococcal Conjugate Vacc, 13 Valent (Prevnar) 10/16/2015 [...] Telephone Encounter - Karly Adler PA-C - 06/06/2021 3:53 PM EDT Signed Prescriptions: Disp Refills Praluent 75 MG/ML Subcutaneous Solution Au*1 mL 3 Sig: INJECT 75 MG UNDER THE SKIN EVERY 14 DAYS. Authorizing Provider: KARLY ADLER * Telephone Encounter - Melida Keita LPN - 06/06/2021 3:24 PM EDT Pending Prescriptions: Disp Refills Praluent 75 MG/ML Subcutaneous Solution A* 3 Sig: INJECT 75 MG UNDER THE SKIN EVERY 14 DAYS. * Telephone Encounter - Melida Keita LPN - 06/06/2021 3:21 PM EDT Pending Prescriptions: Disp Refills Praluent 75 MG/ML Subcutaneous Solution A* 3 Sig: INJECT 75 MG UNDER THE SKIN EVERY 14 DAYS. Last Visit: 07/12/2020 (in office), Visit date not found (telemedicine) Next Visit: Visit date not found If no future appointments scheduled, and last appointment is greater than a year ago, please schedule patient for a follow-up appointment Last date the medication was ordered: 07/12/2020 Pharmacy: [id number] [id number] [facility] Is this request for a controlled substance?No Urine Drug Screen:No results found for this or any previous visit. Patient Phone Numbers Labs: Lab Results Component Value Date/Time CREAT 1.0 02/25/2021 09:44 AM CREAT 1.0 03/01/2020 02:51 PM CREAT 1.0 01/25/1996 10:05 AM POTASSIUM 4.4 02/25/2021 09:44 AM POTASSIUM 4.4 03/01/2020 02:51 PM POTASSIUM 4.8 01/25/1996 10:05 AM TSH 4.53 (H) 06/28/2020 11:20 AM TSH 3.81 04/28/2018 09:11 AM LDLCALC 74 06/28/2020 11:20 AM LDLCALC 128 03/01/2020 02:51 PM LDLCALC 175. (HH) 01/25/1996 10:05 AM LDLDIRECT NOT APPLICABLE 03/01/2020 02:51 PM LDLDIRECT 101 02/04/2011 04:00 PM ALT 24 06/28/2020 11:20 AM ALT 21 03/31/2019 08:26 AM ALT 29 01/25/1996 10:05 AM HGBA1C 6.5 (H) 02/25/2021 09:44 AM HGBA1C 7.5 (H) 03/01/2020 02:51 PM HGBA1C 5.7 05/16/1996 10:22 AM documented in this encounter Plan of Treatment Upcoming Encounters Date Type Specialty Care Team Description 07/17/2021 Hospital Encounter Surgery Santosh Thomason MD [address] [place] [address] 07/17/2021 Surgery Surgery Santosh Thomason MD [address] [place] [address] NEUROPLASTY MEDIAN NERVE AT CARPAL TUNNEL 08/06/2021 Office Visit Family Medicine Smith Orozco MD [address] [place] [address] [place] [address] 08/14/2021 Office Visit Orthopedics Santosh Thomason MD [address] [place] [address] 08/15/2021 Office Visit Cardiology Karly Adler PA-C [address] [place] [address] 11/25/2021 Office Visit Dermatology Kim Kong MD [address] [place] [address], [place] [address] Scheduled Procedures Name Priority Associated Diagnoses Date/Ti me NEUROPLASTY MEDIAN NERVE AT CARPAL TUNNEL Carpal tunnel syndrome of left wrist 07/17/2021 8:00 AM EDT Health Maintenance Due Date Last Done Comments Depression Screening, Annual for Pts 12 and Over 08/29/2020 08/30/2019 DIABETES-FOOT EXAM 03/01/2021 03/01/2020, 1 03/26/2018, 02/18/2018, Additional history exists DIABETES-EYE EXAM 03/23/2021 03/23/2020, , 11/05/2017, Additional history exists Yearly B-12 07/12/2021 07/12/2020, 08/14, 08/19/2018, Additional history exists DIABETES-HGBA1C EVERY 6 MONTHS 08/26/2021 02/25/2021, 06/28/2020, 03/01/2020, Additional history exists BASIC METABOLIC PANEL (BMP) FOR HTN YEARLY 02/25/2022 02/25/2021, 07/12/2020, 06/28/2020, Additional history exists DIABETES-URINE ALBUMIN/CREATININE EVERY 12 MONTHS 02/25/2022 02/25/2021, 03/01/2020, 08/12/2017, Additional history exists DTaP,Tdap,and Td Vaccines (2 - Td or Tdap) 08/05/2022 08/05/2012, 03/16/2003 Pneumococcal Vaccine: 65+ Years Completed 10/16/2015, 12/15/2006, 04/01/2002 Zoster Vaccines Completed 05/25/2019, 09/2019, 11/15/2011 Influenza Vaccine (FLU shot) Completed , 11/22/2019, 11/22/2018, Additional history exists COVID-19 Vaccine Completed 01/09/2021, , 05/18/2020 GARDASIL-HPV IMMUNIZATION SERIES Aged Out No longer eligible based on patient's age to complete this topic MENINGOCOCCAL (MENACTRA/MENVEO) Aged Out No longer eligible based on patient's age to complete this topic documented as of this encounter Implants Implanted Type Area Matcher Leather Parts Device Identifier Shelf Expiration Date Model / Serial / Lot Marker Coronary [facility] - [id number] Implanted:Qty: 1 on 12/26/2010 at OR [facility] N/A: Heart [employer] 10/13/2013 [facility] / / [id number] Sut Steel 6 M654g - [id number] Implanted:Qty: 5 on 12/26/2010 at OR [facility] Chest DO NOT USE 10/14/2015 M654G / / [id number] Band Ankur 225-241 - [id number] Implanted:Qty: 1 on 12/26/2010 at OR [facility] Chest [employer] 225-178 / / [id number] Lens Intraoc 17.5 - [id number] - [id number] Implanted:Qty: 1 on 02/07/2019 by Quincy Paiz MD at OR [facility] Right: Eye [employer] 08/14/2023 [id number] / [id number] / [id number] Lens Intraoc 17.0 - [id number] - [id number] Implanted:Qty: 1 on 03/01/2019 by Quincy Paiz MD at OR [facility] Left: Eye [employer]OM[employer] 09/12/2022 [id number] / [id number] / [id number] documented as of this encounter Visit Diagnoses Diagnosis Dyslipidemia, goal LDL below 70- Primary Other and unspecified hyperlipidemia Atherosclerosis of [place] coronary artery of [place] heart without angina pectoris Old [place] (myocardial infarction) Old myocardial infarction Statin intolerance Other drug allergy Carpal tunnel syndrome of left wrist Carpal tunnel syndrome documented in this encounter Advance Directives Documents on File Type Date Recorded 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 Care Teams Insurance Defense Paralegal Relationship Specialty Start Date End Date Smith Orozco MD PCP - General Family Medicine 08/03/18 documented as of this encounter
--- OUTSIDE RECORDS SUMMARY | 2022-11-16 13:10 | External Medical Summary | Summary of Care ---
Author Name Unknown [facility] [place] [address] Care Team Providers Care Medical Housekeeper Name Role Phone Smith Orozco MD Primary Care Provider Reason for Visit * Reason Comments Follow Up CTS B/L left worse t olivera right Bracing at night x 2 mths Diabetiic A1C 6.5 02/25/21 Encounter Details Date Type Department Care Team Description 05/17/2021 Office Visit Orthopaedics [facility] [address] [place] [address] Santosh Thomason MD [address] [facility] [place] [address] Carpal tunnel syndrome, bilateral* Allergies Active Allergy Reactions Severity Noted Date Comments Acetaminophen Renal complications 04/27/2009 Aspirin 08/13/2000 Stomach pain Cholestyramine 08/13/2000 Kidney pain Atorvastatin Calcium 04/28/2007 cramping Niacin Muscle pain 07/22/2007 Simvastatin Hives 08/13/2000 Ezetimibe 04/28/2007 Cramping ankles, turned feet inward documented as of this encounter (statuses as of 05/17/2021) Medications Medication Sig Dispensed Refills Start Date [...] day 0 Active tretinoin (RETIN-A) 0.05 % creamIndications:Act inic keratosis APPLY NIGHTLY TO FACE DIRECTED,CAN MIX WITH PONDS 45 g 5 03/28/2019 Active Cooledge LightingTOUCH ULTRA STRPIndications:Type 2 diabetes mellitus with hemoglobin A1c goal of less than 8.0% (HCC) USE ONE TEST STRIP TO TEST BLOOD SUGAR LEVELS TWICE A DAY 200 Strip 5 11/11/2019 Active WyzerrTouch UltraSoft Lancets MISCIndications:Type 2 diabetes mellitus with hemoglobin A1c goal of less than 8.0% (HCC) USE ONE LANCET TO TEST BLOOD SUGAR LEVELS TWICE A DAY 200 Each 3 11/15/2019 Active Praluent 75 MG/ML Subcutaneous Solution Auto-injector (Alirocumab)Indicati ons:Atherosclerosis of [place] coronary artery of [place] heart without angina pectoris,Dyslipidemi a, goal LDL below 70,Old [place] (myocardial infarction),Statin intolerance Inject 75 mg under the skin every 14 days. 3 mL 3 07/12/2020 Active glipiZIDE ER 10 MG Oral Tablet Extended Release 24 Hour (Glucotrol XL)Indications:Type 2 diabetes mellitus with hemoglobin A1c goal [...] Capsule Delayed Release (PriLOSEC)Indication s:Peptic ulcer Take 1 Cap by mouth daily. 90 Cap 1 01/07/2021 Active Finasteride 5 MG Oral Tablet (Proscar)Indications :BPH with obstruction/lower urinary tract symptoms TAKE 1 TABLET BY MOUTH EVERY DAY 90 Tablet 1 02/21/2021 Active Valsartan 320 MG Oral Tablet (Diovan)Indications: Atherosclerosis of [place] coronary artery of [place] heart without angina pectoris,Primary hypertension Take 0.5 Tablets by mouth 2 times a day. 90 Tablet 1 02/28/2021 Active Isosorbide Mononitrate ER 60 MG Oral [...] the morning. 90 Tablet 3 05/10/2021 Active documented as of this encounter (statuses as of 05/17/2021) Active Problems Problem Noted Date Carpal tunnel [...] to patient at prior appointment. Atherosclerosis of [place] co ronary artery of [place] heart without angina pectoris 11/30/2001 GENERAL OSTEOARTHROSIS Multiple pulmonary nodules Complex renal cyst Overview: 3.8 cm; L Old [place] (myocardial infarction) documented as of this encounter (statuses as of 05/17/2021) Resolved Problems Problem Noted Date Resolved Date Genomics Cardio Research Other*[id number] 201004/22/2016 Overview: Study Titile: Genomics Markers for Patients with Cardiovascular Disease Project # [id number] PI: Amalia Kingsley MD Please call [phone] with study related questions HTN, goal below [...] as of this encounter (statuses as of 05/17/2021) Immunizations Name Administration Dates Next Due COVID-19 mRNA, LNP-s, No Pre serve, 2-Dose Series (Pfizer) 01/09/2021,06/08/2020,05/18/2020 Pneumococcal Conjugate Vacc, 13 Valent (Prevnar) [...] Former Smoker 0 Smokeless Tobacco: Never Used Tobacco Cessation:Counseling Given: No Comments:quit in 1971 Alcohol Use Standard Drinks/Week Comments Not Currently 0 (1 standard drink = 0.6 oz pur e alcohol) Sex Assigned at Date Recorded Not on file Job Start Date Occupation Industry Not on file Not on file Not on file documented as of this encounter Last Filed Vital Signs Vital Sign Reading Time Taken Comments Blood Pressure - - Pulse - - Temperature 35.5 C (95.9 F) 05/17/2021 12:[address] Respiratory Rate - - Oxygen Saturation - - Inhaled Oxygen Concentration - - Weight 64 kg (141 lb) 05/17/2021 12:38 PM EST Height 165.1 cm (5' 5") 05/17/2021 12:38 PM EST Body Mass Index 23.46 05/17/2021 12:38 PM EST documented in this encounter Progress Notes * Santosh Thomason MD - 05/17/2021 12:47 PM EST He is seen for follow-up regarding his carpal tunnels. He has been wearing splints at night but they are not affording him any relief. Patient Active Problem List Diagnosis Code GENERAL OSTEOARTHROSIS M15.9 Atherosclerosis of [place] coronary artery of [place] heart without angina pectoris I25.10 ADVANCE DIRECTIVE INFORMATION Type 2 diabetes mellitus with hemoglobin A1c goal of less than 8.0% ([facility]) E11.9 DYSLIPIDEMIA, GOAL LDL BELOW 70 [...] and hypertension (HCC) E11.22, I12.9, N18.2 Old [place] (myocardial infarction) I25.2 Nonrheumatic aortic valve stenosis I35.0 Edema R60.9 Carpal tunnel syndrome, bilateral G56.03 Current Outpatient Medications Medication Sig Dispense Refill [...] MULTI-VITAMIN PO TABS one pill each day tretinoin (RETIN-A) 0.05 % cream APPLY NIGHTLY TO FACE DIRECTED,CAN MIX WITH PONDS 45 g 5 ONETOUCH ULTRA STRP USE ONE TEST STRIP TO TEST BLOOD SUGAR LEVELS TWICE A DAY 200 Strip 5 OneTouch UltraSoft Lancets MISC USE ONE LANCET TO TEST BLOOD SUGAR LEVELS TWICE A DAY 200 Each 3 Praluent 75 MG/ML Subcutaneous Solution Auto-injector (Alirocumab) Inject 75 mg under the skin every 14 days. 3 mL 3 glipiZIDE ER 10 MG Oral Tablet Extended Release 24 Hour (Glucotrol XL) TAKE 1 TABLET BY MOUTH TWICE A DAY 180 Tab 1 Jardiance 25 MG Oral Tablet Take 1 Tab by mouth daily. metFORMIN HCl 1000 MG Oral Tablet (Glucophage) TAKE 1 TABLET BY MOUTH TWICE A DAY WITH BREAKFAST AND DINNER 180 Tab 2 Basaglar KwikPen 100 UNIT/ML Subcutaneous Solution Pen-injector [...] BY MOUTH EVERY DAY 90 Tab 3 Omeprazole 20 MG Oral Capsule Delayed Release (PriLOSEC) Take 1 Cap by mouth daily. 90 Cap 1 Finasteride 5 MG Oral Tablet (Proscar) TAKE 1 TABLET BY MOUTH EVERY DAY 90 Tablet 1 Valsartan 320 MG Oral Tablet (Diovan) Take 0.5 Tablets by mouth 2 times a day. 90 Tablet 1 Isosorbide Mononitrate ER 60 [...] No current facility-administered medications for this visit. Review of patient's allergies indicates: Allergen Reactions Acetaminophen Renal complications Aspirin Stomach pain Cholestyramine Kidney pain Lipitor [Atorvastatin Calcium] cramping Niacin Muscle pain Simvastatin Hives Zetia [Ezetimibe] Cramping ankles, turned feet inward Past Medical History: Diagnosis Date Acute IA, inferior wall, subsequent episode of care ([facility]) 1994 BPH with obstruction/lower urinary tract symptoms 11/01/2009 Carpal tunnel syndrome, bilateral 02/05/2021 CKD (chronic kidney disease) stage 2, GFR 60-89 ml/min Coronary atherosclerosis of [place] coronary artery 11/30/2001 DM type 2, goal A1c below 7 Elevated PSA 09/30/2017 PSA 7.15 Examination of eyes and vision 09/20/2013 no diabetic or hypertensive retinopathy Generalized osteoarthritis HTN, goal below 140/90 Mixed dyslipidemia Multiple pulmonary nodules 03/20/2013 Old IA (myocardial infarction) 1994 Peptic ulcer Renal mass, left 2014 3.8 cm Type 2 diabetes mellitus with hemoglobin A1c goal of less than 8.0% ([facility]) 01/11/2009 Per Diabetes Taxonomy. ICD-10 update of inactive term Social History Tobacco Use Smoking status: Former Smoker Years: 0.00 Smokeless tobacco: Never Used Tobacco comment: quit in 1971 Substance Use Topics Alcohol use: Not Currently Vaping/E-Cigarette Use Vaping/E-Cigarette Use Never User Vaping/E-Cigarette Substances Vaping/E-Cigarette Devices PHYSICAL EXAM: Subjective sensation is abnormal in the left thumb index and middle fingers. There is mild weakness of abduction of the left thumb without any thenar atrophy. ASSESSMENT: Bilateral carpal tunnel syndrome, worse on the left. PLAN: We discussed options. He does not want a steroid injection and requested release of his left carpal tunnel. 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 Risks, benefits, alternatives and realistic expectations were explained in detail. I plan release of his right carpal tunnel under local anesthesia and have also recommended tenosynovial biopsy for amyloid. Santosh Thomason MD documented in this encounter Nursing Notes * Vanessa Elder LPN - 05/17/2021 12:37 PM EST F/u CTS B/L left worse than right Bracing at night x 2 mths Diabetiic A1C 6.5 02/25/21 documented in this encounter Plan of Treatment Upcoming Encounters Date Type Specialty Care Team Description 08/06/2021 Office Visit Family Medicine Smith Orozco MD [address] [place] [address] [place] [id number] 08/15/2021 Office Visit [facility] [place] [address] 11/25/2021 Office Visit Dermatology Kim Kong MD [address] [facility] [place] [address] Health Maintenance Due Date Last Done Comments [...] of this encounter Implants Implanted Type Area Financial Services Specialist Device Identifier Shelf Expiration Date Model / Serial / Lot Marker Coronary [facility] - [id number] Implanted:Qty: 1 on 12/26/2010 at OR [facility] N/A: Heart [employer] 10/13/2013 [facility] / / [id number] Sut Steel 6 M654g - [id number] Implanted:Qty: 5 on 12/26/2010 at OR [facility] Chest DO NOT USE 10/14/2015 M654G / / [id number] [facility] 225-241 - [id number] Implanted:Qty: 1 on 12/26/2010 at OR [facility] Chest [employer] 225-241 / / [id number] Lens Intraoc 17.5 - [id number] - [id number] Implanted:Qty: 1 on 02/07/2019 by Quincy Paiz MD at OR [facility] Right: Eye [employer]US[employer] LOMB 08/14/2023 [id number] / [id number] / [id number] Lens Intraoc 17.0 - [id number] - [id number] Implanted:Qty: 1 on 03/01/2019 by Quincy Paiz MD at OR 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 Care Teams Medical Housekeeper Relationship Specialty Start Date End Date Smith Orozco MD PCP - General Family Medicine 08/03/18 documented as of this encounter
--- OUTSIDE RECORDS SUMMARY | 2022-11-16 13:10 | External Medical Summary | Summary of Care ---
Author Name Unknown Organization [place] [address] Care Team Providers Care Extras Casting Director Name Role Phone Smith Orozco MD Primary Care Provider + [phone] Encounter Details Date Type Department Care Team Description 05/22/2021 Scan Encounter [facility] Medicine [address] [phone] Smith Orozco MD [address] [place] [address] [place] [address] <No scans attached> Allergies Active Allergy Reactions Severity Noted Date Comments Acetaminophen Renal complications 04/27/2009 Aspirin 08/13/2000 Stomach pain Cholestyramine 08/13/2000 Kidney pain Atorvastatin Calcium 04/28/2007 cramping Niacin Muscle pain 07/22/2007 Simvastatin Hives 08/13/2000 Ezetimibe 04/28/2007 Cramping ankles, turned feet inward documented as of this encounter (statuses as of 05/23/2021) Medications Medication Sig Dispensed Refills Start Date [...] WITH PONDS 45 g 5 03/28/2019 Active ONETOUCH ULTRA STRPIndications:Type 2 diabetes mellitus [...] MG/ML Subcutaneous Solution Auto-injector (Alirocumab)Indicati ons:Atherosclerosis of [place] coronary artery of [place] heart without angina pectoris,Dyslipidemi a, goal LDL below 70,Old [place] (myocardial infarction),Statin intolerance Inject 75 mg under [...] 320 MG Oral Tablet (Diovan)Indications: Atherosclerosis of [place] coronary artery of [place] heart without angina pectoris,Primary hypertension Take 0.5 [...] as of this encounter (statuses as of 05/23/2021) Active Problems Problem Noted Date Carpal tunnel [...] to patient at prior appointment. Atherosclerosis of [place] co ronary artery of [place] heart without angina pectoris 11/30/2001 GENERAL OSTEOARTHROSIS Multiple pulmonary nodules Complex renal cyst Overview: 3.8 cm; L Old RI (myocardial infarction) documented as of this encounter (statuses as of 05/23/2021) Resolved Problems Problem Noted Date Resolved Date Genomics Cardio Research Other*[id number] 201004/22/2016 Overview: Study Titile: Genomics Markers for Patients with Cardiovascular Disease Project # [id number] PI: Amalia Kingsley MD Please call [phone] with study related questions HTN, goal below [...] as of this encounter (statuses as of 05/23/2021) Immunizations Name Administration Dates Next Due COVID-19 [...] 0 Smokeless Tobacco: Never Used Comments:quit in 1972 Alcohol Use Standard Drinks/Week Comments Not Currently [...] Surgery Santosh Thomason MD [address] [place] [address] 07/17/2021 Surgery Surgery Santosh Thomason MD [address] [place] [address] NEUROPLASTY MEDIAN NERVE AT CARPAL TUNNEL 07/24/2021 Office Visit Orthopedics Santosh Thomason MD [address] [place] [address] 08/06/2021 Office Visit Family Medicine Smith Orozco MD [address] [place] [address] [place] [address] 08/15/2021 Office Visit Cardiology Alcno Lott PA-C [address] [place] [address] 11/25/2021 Office Visit Dermatology Kim Kong MD [address] [place] [address], [place] [address] Scheduled Procedures Name Priority Associated Diagnoses Date/Ti [...] of this encounter Implants Implanted Type Area Transformer Mechanic Device Identifier Shelf Expiration Date Model / Serial / Lot Marker Coronary [facility] - [id number] Implanted:Qty: 1 on 12/26/[address] [facility] [place]/A: Heart [employer] 10/13/2013 [facility] / / [id number] Sut Steel 6 M654g - [id number] Implanted:Qty: 5 on 12/26/[address] [facility] Chest DO NOT USE 10/14/2015 M654G / / [id number] Alonso Pascual 225-720 - [id number] Implanted:Qty: 1 on 12/26/[address] 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 Care Teams Extras Casting Director Relationship Specialty Start Date End Date Smith Orozco MD PCP - General Family Medicine 08/03/18 documented as of this encounter
--- OUTSIDE RECORDS SUMMARY | 2022-11-16 13:10 | External Medical Summary | Summary of Care ---
Author Name Unknown Organization [place] [address] Care Team Providers Care Linux Solaris Administrator Name Role Phone Smith Orozco MD Primary Care Provider Encounter Details Date Type Department Care Team Description 07/24/2021 Orders Only Family Medicine [address] [phone] Smith Orozco MD [address] [place], [place] [address] [address] Allergies Active Allergy Reactions Severity Noted Date Comments Acetaminophen Renal complications 04/27/2009 Aspirin 08/13/2000 Stomach pain Cholestyramine 08/13/2000 Kidney pain Atorvastatin Calcium 04/28/2007 cramping Niacin Muscle pain 07/22/2007 Simvastatin Hives 08/13/2000 Ezetimibe 04/28/2007 Cramping ankles, turned feet inward documented as of this encounter (statuses as of 07/24/2021) Medications Medication Sig Dispensed Refills Start Date End Date Status GAVI 180 MG PO TABSIndications:All ergic rhinitis One pill by mouth once a day for allergies 30 5 07/23/2009 Active Additional Information Patient taking differently: Oral, Indications: as needed, Reported on 02/02/2019 MAGNESIUM OXIDE 200 MG PO TABSIndications:District Operations Manager mp in limb one tablet twice a day 60 Tab 5 07/16/2010 Active SB LOW DOSE ASA EC 81 MG PO TBECIndications:pmo nday, thursday Take by mouth. Indications: pmond, thursday 0 Active MULTI-VITAMIN PO TABS one pill each day 0 Active tretinoin (RETIN-A) 0.05 % creamIndications:Ac tinic keratosis APPLY NIGHTLY TO FACE DIRECTED,CAN MIX WITH PONDS 45 g 5 03/28/2019 Active ONETOUCH ULTRA STRPIndications:Typ e 2 diabetes mellitus with hemoglobin A1c goal of less than 8.0% ([facility]) USE ONE TEST STRIP TO TEST BLOOD SUGAR LEVELS TWICE A DAY 200 Strip 5 11/11/2019 Active OneTouch UltraSoft Lancets MISCIndications:Typ e 2 diabetes mellitus with hemoglobin A1c goal of less than 8.0% ([facility]) USE ONE LANCET TO TEST BLOOD SUGAR LEVELS TWICE A DAY 200 Each 3 11/15/2019 Active glipiZIDE ER 10 MG Oral Tablet Extended Release 24 Hour (Glucotrol XL)Indications:Type 2 diabetes mellitus with hemoglobin A1c goal of less than 8.0% ([facility]) TAKE 1 TABLET BY MOUTH TWICE A DAY 180 Tab 1 08/09/2020 Active Jardiance 25 MG Oral Tablet Take 1 Tab by mouth daily. 0 08/06/2020 Active Basaglar KwikPen 100 UNIT/ML Subcutaneous Solution [...] 12/17/2020 Active Finasteride 5 MG Oral Tablet (Proscar)Indication [...] 320 MG Oral Tablet (Diovan)Indications :Atherosclerosis of [place] coronary artery of [place] heart without angina pectoris,Primary hypertension Take by mouth 0.5 Tablets in the morning AND 0.5 Tablets before bedtime. 90 Tablet 1 05/24/2021 Active Praluent 75 MG/ML Subcutaneous Solution Auto-injector (Alirocumab)Indicat ions:Dyslipidemia, goal LDL below 70,Statin intolerance,Atheros clerosis of [place] coronary artery of [place] heart without angina pectoris,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) [...] the morning. 90 Capsule 1 07/01/2021 Active documented as of this encounter (statuses as of 07/24/2021) Active Problems Problem Noted Date Carpal tunnel [...] to patient at prior appointment. Atherosclerosis of [place] co ronary artery of [place] heart without angina pectoris 11/30/2001 GENERAL OSTEOARTHROSIS Multiple pulmonary nodules Complex renal cyst Overview: 3.8 cm; L 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) documented as of this encounter (statuses as of 07/24/2021) Resolved Problems Problem Noted Date Resolved Date Genomics Cardio Research Other*[id number] 201004/22/2016 Overview: Study Titile: Genomics Markers for Patients with Cardiovascular Disease Project # [id number] PI: Amalia Kingsley MD Please call [phone] with study related questions HTN, goal below [...] as of this encounter (statuses as of 07/24/2021) Immunizations Name Administration Dates Next Due COVID-19 mRNA, LNP-s, No Pre serve, 2-Dose Series (Zokos) 01/09/2021,06/08/2020,05/18/2020 COVID-19, LNP-s, No Preserve , Johann-sucrose, [...] Office Visit Family Medicine Smith Orozco MD [address] [place] [address] [place] [address] 08/15/2021 Office Visit Cardiology Alcon Lott PA-C [address] [place] [address] 11/25/2021 Office Visit Dermatology Kim Kong MD [address] [place] [address] 05/23/[address] [facility] Cardiology [facility] [address] [place] [address] Health Maintenance Due Date Last Done Comments Depression Screening, Annual for Pts 12 and Over 08/29/2020 08/30/2019 DIABETES-FOOT EXAM 03/01/2021 03/01/2020, 1 03/26/2018, 02/18/2018, Additional history exists Yearly B-12 07/12/2021 07/12/2020, [...] of this encounter Implants Implanted Type Area Upholstery Mechanic Device Identifier Shelf Expiration Date Model / Serial / Lot Marker Coronary [facility] - [id number] Implanted:Qty: 1 on 12/26/2010 at OR [facility] N/A: Heart [employer] 10/13/2013 [facility] / / [id number] Sut Steel 6 M654g - [id number] Implanted:Qty: 5 on 12/26/2010 at OR [facility] Chest DO NOT USE 10/14/2015 M654G / / [id number] Alonso Larsonham 225-241 - [id number] Implanted:Qty: 1 on 12/26/2010 at OR [facility] Chest [employer] 225-241 / / [id number] Lens Intraoc 17.5 - [id number] - [id number] Implanted:Qty: 1 on 02/07/2019 by Quincy Paiz MD at OR [facility] Right: Eye [employer]CH [employer] LOMB 08/14/2023 [id number] / [id number] / [id number] Lens Intraoc 17.0 - [id number] - [id number] Implanted:Qty: 1 on 03/01/2019 by Quincy Paiz MD at OR [facility] Left: Eye BAUSCH & LOMB 09/12/2022 [id number] / [id number] / [id number] documented as of this encounter Procedures Procedure Name Priority Date/Time Associated Diagnosis Comments DIABETIC EYE EXAM Routine 03/28/2021 documented in this encounter Results * DIABETIC EYE EXAM (03/28/2021) Specimen Narrative Performing Organization Address City/State/[facility] Co de Phone Number OUTSIDE LAB (SEE SCANNED REPORT) documented in this encounter Advance Directives Documents on File Type Date Recorded 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 Care Teams Linux Solaris Administrator Relationship Specialty Start Date End Date Smith Orozco MD [address] [place] [address] [place] [address] PCP - General Family Medicine 08/03/18 documented as of this encounter
--- OUTSIDE RECORDS SUMMARY | 2022-11-16 13:10 | External Medical Summary | Summary of Care ---
Author Name Unknown Organization [facility] Address [place] [address] Care Team Providers Care Body Shop Manager Name Role Phone Smith Orozco MD Primary Care Provider [phone] Reason for Visit * Reason Comments Follow Up CTS B/L left worse t olivera right Bracing at night x 2 mths Diabetiic A1C 6.5 02/25/21 Encounter Details Date Type Department Care Team Description 05/17/2021 Office Visit Orthopaedics [facility] [address] [place] [address] Santosh Thomason MD [address] [facility] [place] [address] Carpal tunnel syndrome, bilateral* Allergies Active Allergy [...] WITH PONDS 45 g 5 03/28/2019 Active SynackTOUCH ULTRA STRPIndications:Type 2 diabetes mellitus with hemoglobin A1c goal of less than 8.0% (HCC) USE ONE TEST STRIP TO TEST BLOOD SUGAR LEVELS TWICE A DAY 200 Strip 5 11/11/2019 Active RealiusTouch UltraSoft Lancets MISCIndications:Type 2 diabetes mellitus with hemoglobin A1c goal of less than 8.0% (HCC) USE ONE LANCET TO TEST BLOOD SUGAR LEVELS TWICE A DAY 200 Each 3 11/15/2019 Active Praluent 75 MG/ML Subcutaneous Solution Auto-injector (Alirocumab)Indicati ons:Atherosclerosis of [place] coronary artery of [place] heart without angina pectoris,Dyslipidemi a, goal LDL below 70,Old [place] (myocardial infarction),Statin intolerance Inject 75 mg under [...] Oral Tablet (Diovan)Indications: Atherosclerosis of [place] coronary artery of [place] heart without angina pectoris,Primary hypertension Take 0.5 [...] with goal blood pressure less than 140/90,Old [place] (myocardial infarction) Take by mouth 1 Tablet [...] at prior appointment. Atherosclerosis of [place] co ronary artery of [place] heart without angina pectoris 11/30/2001 GENERAL OSTEOARTHROSIS Multiple pulmonary nodules Complex renal cyst Overview: 3.8 cm; L Old [place] (myocardial infarction) documented as of this encounter (statuses as of 05/17/2021) Resolved Problems Problem Noted Date Resolved Date Genomics Cardio Research Other*[id number] 201004/22/2016 Overview: Study Titile: Genomics Markers for Patients with Cardiovascular Disease Project # [id number] PI: Amalia Kingsley MD Please call [phone] with study related questions HTN, goal below [...] 01/24/2002 10/12/2015 Solar lentigo 10/27/2001 04/30/2016 ACUTE AR; INFERIOR WALL;SUBSEQUENT EPISODE CARE 06/21/2013 HYPERTENSION NOS [...] Diagnosis Code GENERAL OSTEOARTHROSIS M15.9 Atherosclerosis of [place] coronary artery of [place] heart without angina pectoris I25.10 ADVANCE DIRECTIVE INFORMATION Type 2 diabetes mellitus with hemoglobin A1c goal of less than 8.0% ([facility]) E11.9 DYSLIPIDEMIA, GOAL LDL BELOW 70 E78.5 [...] and hypertension (HCC) E11.22, I12.9, N18.2 Old [place] (myocardial infarction) I25.2 Nonrheumatic aortic valve stenosis [...] inward Past Medical History: Diagnosis Date Acute AR, inferior wall, subsequent episode of care ([facility]) 1994 BPH with obstruction/lower urinary tract symptoms 11/01/2009 Carpal tunnel syndrome, bilateral 02/05/2021 CKD (chronic kidney disease) stage 2, GFR 60-89 ml/min Coronary atherosclerosis of [place] coronary artery 11/30/2001 DM type 2, goal A1c below 7 Elevated PSA 09/30/2017 PSA 7.15 Examination of eyes and vision 09/20/2013 no diabetic or hypertensive retinopathy Generalized osteoarthritis HTN, goal below 140/90 Mixed dyslipidemia Multiple pulmonary nodules 03/20/2013 Old AR (myocardial infarction) 1994 Peptic ulcer Renal mass, left 2014 3.8 cm Type 2 diabetes mellitus with hemoglobin A1c goal of less than 8.0% ([facility]) 01/11/2009 Per Diabetes Taxonomy. ICD-10 update of [...] Hospital Encounter Surgery Santosh Thomason MD [address] [place] [address] 07/24/2021 Office Visit Orthopedics Santosh Thomason MD [address] [place] [address] 08/06/2021 Office Visit Family Medicine Smith Orozco MD [address] [place] [address] [place] [phone] 08/15/2021 Office Visit Cardiology Alcon Lott PA-C [address] [place] [address] 11/25/2021 Office Visit Dermatology Kim Kong MD [address] [place] [address], [place] [address] Scheduled Procedures Name Priority Associated Diagnoses Date/Ti me NEUROPLASTY MEDIAN NERVE AT CARPAL TUNNEL Carpal tunnel syndrome of left wrist Health Maintenance Due Date Last Done Comments [...] of this encounter Implants Implanted Type Area Turner In Device Identifier Shelf Expiration Date Model / Serial / Lot Marker Coronary [facility] - [id number] Implanted:Qty: 1 on 12[place] [facility] Heart [employer] 10/13/2013 [facility] / / [id number] Sut Steel 6 M654g - [id number] Implanted:Qty: 5 on 12/26/2010 [place] [facility] Chest DO NOT USE 10/14/2015 M654G / / [id number] Band [facility] 225-178 - [id number] Implanted:Qty: 1 on 12/26/2010 at [place] [facility] Chest [employer] 225-052 / / [id number] Lens Intraoc 17.5 - [id number] - [id number] Implanted:Qty: 1 on 02/07/2019 by Quincy Paiz MD at OR [facility] Right: Eye [employer] 08/14/2023 [id number] / [id number] / [id number] Lens Intraoc 17.0 - [id number] - [id number] Implanted:Qty: 1 on 03/01/2019 by Quincy Paiz MD at OR [facility] Left: Eye [employer] LOMB 09/12/2022 [id number] / [id number] / [id number] documented as of this encounter Visit Diagnoses Diagnosis Carpal tunnel syndrome, bilateral- Primary Carpal tunnel syndrome documented in this encounter Advance Directives Documents on File Type Date Recorded Patient Body Shop Manager Expl 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 and were consensually agreed upon. Care Teams Body Shop Manager Relationship Specialty Start Date End Date Smith Orozco MD PCP - General Family Medicine 08/03/18 documented as of this encounter
--- OUTSIDE RECORDS SUMMARY | 2022-11-16 13:10 | External Medical Summary | Summary of Care ---
Author Name Unknown Organization [place] [address] Care Team Providers Care Lock Technician Name Role Phone Smith Danielle MD Primary Care Provider Reason for Visit * Reason Onset Date Comments Medication Refill 06/29/2021 Encounter Details Date Type Department Care Team Description 06/29/2021 Refill Family Medicine [address] [phone] Smith Danielle MD [address] [place], [place] [address] [id number] Type 2 diabetes mellitus with diabetic nephropathy (HCC); Type 2 diabetes mellitus with hemoglobin A1c goal of less than 8.0% ([facility]); PEPTIC ULCER NOS Allergies Active Allergy Reactions Severity Noted Date Comments Acetaminophen Renal complications 04/27/2009 Aspirin 08/13/2000 Stomach pain Cholestyramine 08/13/2000 Kidney pain Atorvastatin Calcium 04/28/2007 cramping Niacin Muscle pain 07/22/2007 Simvastatin Hives 08/13/2000 Ezetimibe 04/28/2007 Cramping ankles, turned feet inward documented as of this encounter (statuses as of 07/01/2021) Medications Medication Sig Dispensed Refills Start Date [...] day 0 Active tretinoin (RETIN-A) 0.05 % creamIndications:A ctinic keratosis APPLY NIGHTLY TO FACE DIRECTED,CAN MIX WITH PONDS 45 g 5 03/28/2019 Active ONETOUCH ULTRA STRPIndications:Ty pe 2 diabetes mellitus with hemoglobin A1c goal of less than 8.0% ([facility]) USE ONE TEST STRIP TO TEST BLOOD SUGAR LEVELS TWICE A DAY 200 Strip 5 11/11/2019 Active IMScoutingTouch UltraSoft Lancets MISCIndications:Ty pe 2 diabetes mellitus [...] than 8.0% ([facility]) TAKE 1 TABLET BY MOUTH [...] with goal blood pressure less than 140/90,Old [place] (myocardial infarction) Take by mouth 1 Tablet in the morning. 90 Tablet 3 05/10/2021 Active Valsartan 320 MG Oral Tablet (Diovan)Indication s:Atherosclerosis of [place] coronary artery of [place] heart without angina pectoris,Primary hypertension Take by mouth 0.5 Tablets in the morning AND 0.5 Tablets before bedtime. 90 Tablet 1 05/24/2021 Active Praluent 75 MG/ML Subcutaneous Solution Auto-injector (Alirocumab)Indica tions:Dyslipidemia , goal LDL below 70,Statin intolerance,Athero sclerosis of [place] coronary artery of [place] heart without angina pectoris,Old [place] (myocardial infarction) Inject under the skin 75 [...] the morning. 90 Capsule 1 07/01/2021 Active metFORMIN HCl 1000 MG Oral Tablet (Glucophage)Indica tions:Type 2 diabetes mellitus with diabetic nephropathy (HCC),Type 2 diabetes mellitus with hemoglobin A1c goal of less than 8.0% (HCC) TAKE 1 TABLET BY MOUTH TWICE A DAY WITH BREAKFAST AND DINNER 180 Tab 2 10/04/2020 2 Discontinue d(Refill) Omeprazole 20 MG Oral Capsule Delayed Release (PriLOSEC)Indicati ons:Peptic ulcer Take 1 Cap by mouth daily. 90 Cap 1 01/07/2021 2 Discontinue d(Refill) documented as of this encounter (statuses as of 07/01/2021) Active Problems Problem Noted Date Carpal tunnel [...] to patient at prior appointment. Atherosclerosis of [place] co ronary artery of [place] heart without angina pectoris 11/30/2001 GENERAL OSTEOARTHROSIS Multiple pulmonary nodules Complex renal cyst Overview: 3.8 cm; L Old [place] (myocardial infarction) documented as of this encounter (statuses as of 07/01/2021) Resolved Problems Problem Noted Date Resolved Date Genomics Cardio Research Other*[id number] 201004/22/2016 Overview: Study Titile: Genomics Markers for Patients with Cardiovascular Disease Project # [id number] PI: Amalia Kingsley MD Please call [phone] with study related questions HTN, goal below [...] 01/24/2002 10/12/2015 Solar lentigo 10/27/2001 04/30/2016 ACUTE LA; INFERIOR WALL;SUBSEQUENT EPISODE CARE 06/21/2013 HYPERTENSION NOS [...] as of this encounter (statuses as of 07/01/2021) Immunizations Name Administration Dates Next Due COVID-19 mRNA, LNP-s, No Pre serve, 2-Dose Series (Sciences-U) 01/09/2021,06/08/2020,05/18/2020 COVID-19, LNP-s, No Preserve , Johann-sucrose, [...] Telephone Encounter - Smith Danielle MD - 07/01/2021 10:23 AM EDT Signed Prescriptions: Disp Refills metFORMIN HCl 1000 MG Oral Tablet (Glucoph*180 Ta*1 Sig: TAKE 1 TABLET BY MOUTH TWICE A DAY WITH BREAKFAST AND DINNER Authorizing Provider: SMITH DANIELLE Omeprazole 20 MG Oral Capsule Delayed Rele*90 Cap*1 Sig: Take by mouth 1 Capsule in the morning. Authorizing Provider: SMITH DANIELLE * Telephone Encounter - Jacqueline Mccarthy LPN - 07/01/2021 10:20 AM EDT Pending Prescriptions: Disp Refills metFORMIN HCl 1000 MG Oral Tablet (Glucop*180 Ta*1 Sig: TAKE 1 TABLET BY MOUTH TWICE A DAY WITH BREAKFAST AND DINNER Omeprazole 20 MG Oral Capsule Delayed Rel*90 Cap*1 Sig: Take by mouth 1 Capsule in the morning. * Telephone Encounter - Jacqueline Mccarthy LPN - 07/01/2021 10:19 AM EDT Pending Prescriptions: Disp Refills metFORMIN HCl 1000 MG Oral Tablet (Glucop*180 Ta*1 Sig: TAKE 1 TABLET BY MOUTH TWICE A DAY WITH BREAKFAST AND DINNER Omeprazole 20 MG Oral Capsule Delayed Rel*90 Cap*1 Sig: Take by mouth 1 Capsule in the morning. Last Visit: 02/05/2021 (in office), Visit date not found (telemedicine) Next Visit: 08/06/2021 Last date the medication was ordered: 10/04/20 and 01/07/21 Patient Active Problem List Diagnosis Code GENERAL OSTEOARTHROSIS M15.[address] [place] coronary artery of [place] heart without angina pectoris I25.10 ADVANCE DIRECTIVE INFORMATION Type 2 diabetes mellitus with hemoglobin A1c goal of less than 8.0% ([facility]) E11.9 DYSLIPIDEMIA, GOAL LDL BELOW 70 E78.5 BPH with obstruction/lower urinary tract symptoms N40.1, N13.8 Primary hypertension I10 Statin intolerance Z78.9 Multiple pulmonary nodules R91.8 Ischemic cardiomyopathy I25.5 Complex renal cyst N28.1 Hx of actinic keratosis Z87.2 Type 2 diabetes mellitus with stage 2 chronic kidney disease, without long- term current use of insulin ([facility]) E11.22, N18.2 Hx of nonmelanoma skin cancer Z85.828 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 ([facility]) E11.22, I12.9, N18.2 Old [place] (myocardial infarction) I25.2 Nonrheumatic aortic valve stenosis [...] Description 08/06/2021 Office Visit Family Medicine Smith Danielle MD [address] [place] [address] [place] [address] 08/15/2021 Office Visit Cardiology Alcon Lott PA-Adelfo [address] [place] [address] 11/25/2021 Office Visit Dermatology Kim Kong MD [address] [place], [place] [address] [address] 05/23/2022 Pharmacy Cardiology [facility] Cardiology [facility] [address] [place] [address] Health Maintenance Due Date Last Done Comments [...] of this encounter Implants Implanted Type Area Technician Assistant Device Identifier Shelf Expiration Date Model / Serial / Lot Marker Coronary [facility] - [id number] Implanted:Qty: 1 [place] [facility] [place] Heart [employer] 10/13/2013 [facility] / / [id number] Sut Steel 6 M654g - [id number] Implanted:Qty: 5 on 12/26/2010 [place] [facility] [place] Chest DO NOT USE 10/14/2015 M654G / / [id number] Band [facility] 225-044 - [id number] Implanted:Qty: 1 on 12/26/2010 [place] [facility] [place] Chest [employer] 225-632 / / [id number] Lens Intraoc 17.5 - [id number] - [id number] Implanted:Qty: 1 on 02/07/2019 by Quincy Paiz MD at OR [facility] Right: Eye [employer]OM[employer] 08/14/2023 [id number] / [id number] / [id number] Lens Intraoc 17.0 - [id number] - [id number] Implanted:Qty: 1 on 03/01/2019 by Quincy Paiz MD at OR [facility] Left: Eye [employer]OM[employer] 09/12/2022 [id number] / [id number] / [id number] documented as of this encounter Visit Diagnoses [...] obstruction documented in this encounter Advance Directives Documents on File Type Date Recorded 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 Care Teams Lock Technician Relationship Specialty Start Date End Date Smith Danielle MD [address] [place] [address] [place] [address] PCP - General Family Medicine 08/03/18 documented as of this encounter
--- OUTSIDE RECORDS SUMMARY | 2022-11-16 13:10 | External Medical Summary | Summary of Care ---
Author Name Unknown Organization [facility] Address [place] [address] Care Team Providers Care Dump Grader Name Role Phone Smith Orozco MD Primary Care Provider Reason for Visit * Reason Comments Follow Up CTS B/L left worse t olivera right Bracing at night x 2 mths Diabetiic A1C 6.5 02/25/21 Encounter Details Date Type Department Care Team Description 05/17/2021 Office Visit Orthopaedics [facility] [address] [place] [address] Santosh Thomason MD 132 [facility] [place] [address] Carpal tunnel syndrome, bilateral* Allergies Active Allergy [...] WITH PONDS 45 g 5 03/28/2019 Active Busy MoosTOUCH ULTRA STRPIndications:Type 2 diabetes mellitus with hemoglobin A1c goal of less than 8.0% (HCC) USE ONE TEST STRIP TO TEST BLOOD SUGAR LEVELS TWICE A DAY 200 Strip 5 11/11/2019 Active Axis ThreeTouch UltraSoft Lancets MISCIndications:Type 2 diabetes mellitus with hemoglobin A1c goal of less than 8.0% (HCC) USE ONE LANCET TO TEST BLOOD SUGAR LEVELS TWICE A DAY 200 Each 3 11/15/2019 Active Praluent 75 MG/ML Subcutaneous Solution Auto-injector (Alirocumab)Indicati ons:Atherosclerosis of [place] coronary artery of [place] heart without angina pectoris,Dyslipidemi a, goal LDL below 70,Old [place] (myocardial infarction),Statin intolerance Inject 75 mg under [...] 320 MG Oral Tablet (Diovan)Indications: Atherosclerosis of [place] coronary artery of [place] heart without angina pectoris,Primary hypertension Take 0.5 [...] to patient at prior appointment. Atherosclerosis of [place] co ronary artery of [place] heart without angina pectoris 11/30/2001 GENERAL OSTEOARTHROSIS Multiple pulmonary nodules Complex renal cyst Overview: 3.8 cm; L Old [place] (myocardial infarction) documented as of this encounter (statuses as of 05/17/2021) Resolved Problems Problem Noted Date Resolved Date Genomics Cardio Research Other*[id number] 201004/22/2016 Overview: Study Titile: Genomics Markers for Patients with Cardiovascular Disease Project # [id number] PI: Amalia Kingsley MD Please call [phone] with study related questions HTN, goal below [...] Diagnosis Code GENERAL OSTEOARTHROSIS M15.9 Atherosclerosis of [place] coronary artery of [place] heart without angina pectoris I25.10 ADVANCE DIRECTIVE INFORMATION Type 2 diabetes mellitus with hemoglobin A1c goal of less than 8.0% ([facility]) E11.9 DYSLIPIDEMIA, GOAL LDL BELOW [...] and hypertension (HCC) E11.22, I12.9, N18.2 Old [place] (myocardial infarction) I25.2 Nonrheumatic aortic valve stenosis [...] inward Past Medical History: Diagnosis Date Acute CA, inferior wall, subsequent episode of care ([facility]) 1994 BPH with obstruction/lower urinary tract symptoms 11/01/2009 Carpal tunnel syndrome, bilateral 02/05/2021 CKD (chronic kidney disease) stage 2, GFR 60-89 ml/min Coronary atherosclerosis of [place] coronary artery 11/30/2001 DM type 2, goal A1c below 7 Elevated PSA 09/30/2017 PSA 7.15 Examination of eyes and vision 09/20/2013 no diabetic or hypertensive retinopathy Generalized osteoarthritis HTN, goal below 140/90 Mixed dyslipidemia Multiple pulmonary nodules 03/20/2013 Old CA (myocardial infarction) 1994 Peptic ulcer Renal mass, left 2014 3.8 cm Type 2 diabetes mellitus with hemoglobin A1c goal of less than 8.0% ([facility]) 01/11/2009 Per Diabetes Taxonomy. ICD-10 [...] Visit Family Medicine Smith Orozco MD [address] [place] [address] [place] [phone] 08/15/2021 Office Visit Cardiology Alcon Lott [facility]C [facility] [place] [address] 11/25/2021 Office Visit Dermatology Kim Kong MD [address] [facility] [place] [address] Health Maintenance Due Date Last Done Comments [...] of this encounter Implants Implanted Type Area Guest Services Officer Device Identifier Shelf Expiration Date Model / Serial / Lot Marker Coronary [facility] - [id number] [place]:Q[place] [facility] [place] [employer] 10/13/2013 [facility] / / [id number] Sut Steel 6 M654g - [id number] [place]planted:Qty: 5 on 12[place]26/2010 [place] [facility] [place] DO NOT USE 10/14/2015 M654G / / [id number] [facility] 225-241 - [id number] Implanted:Qty: 1 on 12/26/2010 [place] [facility] [place] Chest [employer] 225-241 / / [id number] Lens Intraoc 17.5 - [id number] - [id number] Implanted:Qty: 1 on 02/07/2019 by Quincy Paiz MD at OR [facility] Right: Eye [employer] 08/14/2023 [id number] / [id number] / [id number] Lens Intraoc 17.0 - [id number] - [id number] Implanted:Qty: 1 on 03/01/2019 by Quinyc Paiz MD at OR [facility] Left: Eye [employer] LOMB 09/12/2022 [id number] / [id number] / [id number] documented as of this encounter Visit Diagnoses Diagnosis Carpal tunnel syndrome, bilateral- Primary Carpal tunnel syndrome documented in this encounter Advance Directives Documents on File Type Date Recorded 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 Care Teams Dump Grader Relationship Specialty Start Date End Date Smith Orozco MD PCP - General Family Medicine 08/03/18 documented as of this encounter
--- OUTSIDE RECORDS SUMMARY | 2022-11-16 13:10 | External Medical Summary | Summary of Care ---
Author Name Unknown Organization [facility] Address [facility] [place] [address] Care Team Providers Care Manager Of Selection And Assessment Name Role Phone Smith Orozco MD Primary Care Provider Encounter Details Date Type Department Care Team Description 06/18/2021 Immunization Ancillary [place] [address] [place] [address] [facility] Covid Vaccine [address] [place] [address] Encounter for immunization* Allergies Active Allergy Reactions Severity Noted Date Comments Acetaminophen Renal complications 04/27/2009 Aspirin 08/13/2000 Stomach pain Cholestyramine 08/13/2000 Kidney pain Atorvastatin Calcium 04/28/2007 cramping Niacin Muscle pain 07/22/2007 Simvastatin Hives 08/13/2000 Ezetimibe 04/28/2007 Cramping ankles, turned feet inward documented as of this encounter (statuses as of 06/18/2021) Medications Medication Sig Dispensed Refills Start Date [...] PO TBECIndications:pm, thursday Take by mouth. Indications: pmonday, thursday [...] hemoglobin A1c goal of less than 8.0% ([facility]) TAKE 1 TABLET BY MOUTH TWICE [...] with goal blood pressure less than 140/90,Old [place] (myocardial infarction) Take by mouth 1 Tablet in the morning. 90 Tablet 3 05/10/2021 Active Valsartan 320 MG Oral Tablet (Diovan)Indications: Atherosclerosis of [place] coronary artery of [place] heart without angina pectoris,Primary hypertension Take by mouth 0.5 Tablets in the morning AND 0.5 Tablets before bedtime. 90 Tablet 1 05/24/2021 Active Praluent 75 MG/ML Subcutaneous Solution Auto-injector (Alirocumab)Indicati ons:Dyslipidemia, goal LDL below 70,Statin intolerance,Atherosc lerosis of [place] coronary artery of [place] heart without angina pectoris,Old [place] (myocardial infarction) Inject under the skin 75 mg every 14 days . 2 mL 11 06/14/2021 Active documented as of this encounter (statuses as of 06/18/2021) Active Problems Problem Noted Date Carpal tunnel [...] to patient at prior appointment. Atherosclerosis of [place] co ronary artery of [place] heart without angina pectoris 11/30/2001 GENERAL OSTEOARTHROSIS Multiple pulmonary nodules Complex renal cyst Overview: 3.8 cm; L Old [place] (myocardial infarction) documented as of this encounter (statuses as of 06/18/2021) Resolved Problems Problem Noted Date Resolved Date [employer] Other*[id number] 201004/22/2016 Overview: Study Titile: Gen[employer] Markers for Patients with Cardiovascular Disease Project # [id number] PI: Amalia Kingsley MD Please call [phone] with study related questions HTN, goal below [...] 01/24/2002 10/12/2015 Solar lentigo 10/27/2001 04/30/2016 ACUTE [place]; INFERIOR WALL;SUBSEQUENT EPISODE CARE 06/21/2013 HYPERTENSION NOS [...] as of this encounter (statuses as of 06/18/2021) Immunizations Name Administration Dates Next Due COVID-19 [...] Surgery Santosh Thomason MD [address] [place] [address] 07/17/2021 Surgery Surgery Santosh Thomason MD [address] [place] [address] NEUROPLASTY MEDIAN NERVE AT CARPAL TUNNEL 08/06/2021 Office Visit Family Medicine Smith Orozco MD [address] [place] [address] [place] [address] 08/14/2021 Office Visit Orthopedics Santosh Thomason MD [address] [place] [address] 08/15/2021 Office Visit Cardiology Alcon Lott PA-C [address] [place] [address] 11/25/2021 Office Visit Dermatology Kim Kong MD [address] [place] [address] 05/23/2022 Pharmacy Cardiology [facility] Cardiology [facility] [address] [place] [address] Scheduled Procedures Name Priority Associated Diagnoses Date/Ti [...] this encounter Implants Implanted Type Area Sales Expert Device Identifier Shelf Expiration Date Model / Serial / Lot Marker Coronary [facility] - [id number] Implanted:Qty: 1 on 12/26/2010 at OR [facility] N/A: Heart [employer] 10/13/2013 AM-SD / / [id number] Sut Steel 6 M654g - [id number] Implanted:Qty: 5 on 12/26/2010 at OR [facility] Chest DO NOT USE 10/14/2015 M654G / / [id number] [facility] 225-241 - [id number] Implanted:Qty: 1 on 12/26/2010 at OR [facility] Chest [employer] 225-241 / / [id number] Lens Intraoc 17.5 - [id number] - [id number] Implanted:Qty: 1 on 02/07/2019 by Quincy Paiz MD at OR [facility] Right: Eye [employer] 08/14/2023 [id number] / [id number] / [id number] Lens Intraoc 17.0 - [id number] - [id number] Implanted:Qty: 1 on 03/01/2019 by Quincy Paiz MD at OR [facility] Left: Eye [employer]OM[employer] 09/12/2022 [id number] / [id number] / [id number] documented as of this encounter Visit Diagnoses Diagnosis Encounter for immunization- Primary Need for other specified prophylactic vaccination against single bacterial disease Carpal tunnel syndrome of left wrist Carpal tunnel syndrome documented in this encounter Advance Directives Documents on File Type Date Recorded 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 Care Teams Manager Of Selection And Assessment Relationship Specialty Start Date End Date Smith Orozco MD [address] [place] [address] [place] [address] PCP - General Family Medicine 08/03/18 documented as of this encounter
--- OUTSIDE RECORDS SUMMARY | 2022-11-16 13:10 | External Medical Summary | Summary of Care ---
Author Name Unknown Organization [place] [address] Care Team Providers Care Manager Information Name Role Phone Smith Orozco MD Primary Care Provider [phone] Encounter Details Date Type Department Care Team Description 06/17/2021 Orders Only Family Medicine [address] [phone] Smith Orozco MD [address] [place], [place] [address] [address] Allergies Active Allergy Reactions Severity Noted Date Comments Acetaminophen Renal complications 04/27/2009 Aspirin 08/13/2000 Stomach pain Cholestyramine 08/13/2000 Kidney pain Atorvastatin Calcium 04/28/2007 cramping Niacin Muscle pain 07/22/2007 Simvastatin Hives 08/13/2000 Ezetimibe 04/28/2007 Cramping ankles, turned feet inward documented as of this encounter (statuses as of 06/17/2021) Medications Medication Sig Dispensed Refills Start Date [...] less than 140/90,Old [place] (myocardial infarction) Take by mouth 1 Tablet in the morning. 90 Tablet 3 05/10/2021 Active Valsartan 320 MG Oral Tablet (Diovan)Indications: Atherosclerosis of [place] coronary artery of [place] heart without angina pectoris,Primary hypertension Take by mouth 0.5 Tablets in the morning AND 0.5 Tablets before bedtime. 90 Tablet 1 05/24/2021 Active Praluent 75 MG/ML Subcutaneous Solution Auto-injector (Alirocumab)Indicati ons:Dyslipidemia, goal LDL below 70,Statin intolerance,Atherosc lerosis of [place] coronary artery of [place] heart without angina pectoris,Old [place] (myocardial infarction) Inject under the skin 75 mg every 14 days . 2 mL 11 06/14/2021 Active documented as of this encounter (statuses as of 06/17/2021) Active Problems Problem Noted Date Carpal tunnel [...] to patient at prior appointment. Atherosclerosis of [place] co ronary artery of [place] heart without angina pectoris 11/30/2001 GENERAL OSTEOARTHROSIS Multiple pulmonary nodules Complex renal cyst Overview: 3.8 cm; L Old [place] (myocardial infarction) documented as of this encounter (statuses as of 06/17/2021) Resolved Problems Problem Noted Date Resolved Date [employer] Cardio Research Other*[id number] 201004/22/2016 Overview: Study Titile: Genomics Markers for Patients with Cardiovascular Disease Project # [id number] PI: Amalia Kingsley MD Please call [phone] with study related questions HTN, goal below [...] as of this encounter (statuses as of 06/17/2021) Immunizations Name Administration Dates Next Due COVID-19 [...] Encounters Date Type Specialty Care Team Description 06/18/2021 Immunization [place]illary [place], Covid19 Vaccine Mo [address] [place] [address] [place] [address] 07/17/2021 Hospital Encounter Surgery Santosh Thomason MD [address] [place] [address] 07/17/2021 Surgery Surgery Santosh Thomason MD [address] [place] [address] NEUROPLASTY MEDIAN NERVE AT CARPAL TUNNEL 08/06/2021 Office Visit Family Medicine Smith Orozco MD [address] [place] [address] [place] [address] 08/14/2021 Office Visit Orthopedics Santosh Thomason MD [address] [place] [address] 08/15/2021 Office Visit Cardiology Alcon Lott PA-C [address] [place] [address] 11/25/2021 Office Visit Dermatology Kim Kong MD [address] [place] [address], [place] [address] 05/23/2022 Pharmacy Cardiology [facility] Cardiology Imelda [address] [place] [address] Scheduled Procedures Name Priority Associated Diagnoses Date/Ti [...] history exists DIABETES-HGBA1C EVERY 6 MONTHS 08/26/2021 05/20/2021, 02/25/2021, 06/28/2020, Additional history exists BASIC METABOLIC PANEL (BMP) FOR HTN YEARLY 02/25/2022 02/25/2021, 07/12/2020, 06/28/2020, Additional history exists DIABETES-URINE ALBUMIN/CREATININE EVERY 12 MONTHS 02/25/2022 05/20/2021, 02/25/2021, 03/01/2020, Additional history exists DTaP,Tdap,and [...] of this encounter Implants Implanted Type Area Bridge Game Director Device Identifier Shelf Expiration Date Model / Serial / Lot Marker Coronary [facility] - [id number] Implanted:Qty: 1 on 12/26/2010 at [place] [facility] N/A: Heart [employer] 10/13/2013 AM-SD / / [id number] Sut Steel 6 M654g - [id number] Implanted:Qty: 5 on 12/26/2010 at OR [facility] Chest DO NOT USE 10/14/2015 M654G / / [id number] [facility] 225-241 - [id number] Implanted:Qty: 1 on 12/26/2010 at OR [facility] Chest [employer] 225-241 / / [id number] Lens Intraoc 17.5 - [id number] - [id number] Implanted:Qty: 1 on 02/07/2019 by Quincy Paiz MD at OR [facility] Right: Eye [employer] 08/14/2023 [id number] / [id number] / [id number] Lens Intraoc 17.0 - [id number] - [id number] Implanted:Qty: 1 on 03/01/2019 by Quincy Paiz MD at OR [facility] Left: Eye [employer]OM[employer] 09/12/2022 [id number] / [id number] / [id number] documented as of this encounter Procedures Procedure Name Priority Date/Time Associated Diagnosis Comments CHEMISTRY-OUTSIDE Routine 05/20/2021 TSH Routine 05/20/2021 documented in this encounter Results * TSH (05/20/2021) TSH - OUTSIDE LAB 3.317 0.300 - 4.500 UIU/ML OUTSIDE LAB (SEE SCANNED REPORT) Specimen Blood - Venous blood specime n (specimen) Narrative OUTSIDE LAB (SEE SCANNED REPORT) * (ABNORMAL) CHEMISTRY-OUTSIDE (05/20/2021) CREATININE-OUTSIDE LAB OUTSIDE LAB (SEE SCANNED REPORT) EGFR-OUTSIDE LAB OUTSIDE LAB (SEE SCANNED REPORT) POTASSIUM-OUTSIDE LAB OUTSID E LAB (SEE SCANNED REPORT) GLUCOSE-OUTSIDE LAB OUTSIDE LAB (SEE SCANNED REPORT) HOURS FASTING OUTSIDE LAB (S EE SCANNED REPORT) TRIGLYCERIDES-OUTSIDE LAB 111 0 - 150 MG/DL OUTSIDE LAB (SEE SCANNED REPORT) CHOLESTEROL-OUTSIDE LAB 120 0 - 200 MG/DL OUTSIDE LAB (SEE SCANNED REPORT) HDL-OUTSIDE LAB 50 MG/DL OUTSIDE LAB (SEE SCANNED REPORT) CHOL/HDL RATIO-OUTSIDE LAB 2.4 0 - 5 OUTSIDE LAB (SEE SCANNED REPORT) LDL (CALCULATED)-OUTSIDE LAB 48 MG/DL OUTSIDE LAB (SEE SCANNED REPORT) LDL (DIRECT MEASURE)-OUTSIDE LAB OUTSIDE LAB (SEE SCANNED REPORT) HEMOGLOBIN, B4Q-CKYTPHY LAB 7.1(A) 4.5 - 5.6 % OUTSIDE LAB (SEE SCANNED REPORT) PHOSPHORUS-OUTSIDE LAB OUTSIDE LAB (SEE SCANNED REPORT) PTH-OUTSIDE LAB OUTSIDE LAB (SEE SCANNED REPORT) MICROALBUMIN RATIO-OUTSIDE LAB 249.7(A) 0 - 30 MCG/MG OUTSIDE LAB (SEE SCANNED REPORT) PROTEIN, UA-OUTSIDE LAB OUTSIDE LAB (SEE SCANNED REPORT) HEMOGLOBIN-OUTSIDE LAB OUTSIDE LAB (SEE SCANNED REPORT) CHEMISTRY COMMENT-OUTSIDE LAB Comment:SEE SCAN: HA1C, LIPIDS, MICROALB/CR OUTSIDE LAB (SEE SCANNED REPORT) Specimen Narrative OUTSIDE LAB (SEE SCANNED REPORT) documented in this encounter Advance Directives Documents on File Type Date Recorded 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 Care Teams Manager Information Relationship Specialty Start Date End Date Smith Orozco MD [address] [place] [address] [place] [address] PCP - General Family Medicine 08/03/18 documented as of this encounter
--- OUTSIDE RECORDS SUMMARY | 2022-11-16 13:10 | External Medical Summary | Summary of Care ---
Author Name Unknown Organization [place] [address] Care Team Providers [employer] Flatbed Truck Driver Name Role Phone Smith Orozco MD Primary Care Provider + [phone] Reason for Referral * Medication Prior Authorization - Pending Review Specialty Diagnoses / Procedures Referred By Vinicio teixeira Referred To Contact Diagnoses Actinic keratosis Smith Orozco MD [address] [place] [address] [place] [id number] Referral ID Status Reason Start Date Expiration Date V isits Requested Visits Authorized [id number] Pending Review 999 999 Reason for Visit * Reason Comments Re-Check Encounter Details Date Type Department Care Team Description 08/06/2021 Office Visit Family Medicine [address] [place] [phone] Smith Orozco MD [address] [place] [address] [place] [id number] Type 2 diabetes mellitus with stage 2 chronic kidney disease, without long-term current use of insulin (HCC)*; 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); DM type 2 nursing care encounter (HCC); Encounter for long-term (current) use of other medications; Atherosclerosis of [place] coronary artery of [place] heart without angina pectoris; Dyslipidemia, goal LDL below 70; Statin intolerance; Type 2 diabetes mellitus with hemoglobin A1c goal of less than 8.0% ([facility]); Aphthous stomatitis; Actinic keratosis Allergies Active Allergy Reactions Severity Noted Date Comments Acetaminophen Renal complications 04/27/2009 Aspirin 08/13/2000 Stomach pain Cholestyramine 08/13/2000 Kidney pain Atorvastatin Calcium 04/28/2007 cramping Niacin Muscle pain 07/22/2007 Simvastatin Hives 08/13/2000 Ezetimibe 04/28/2007 Cramping ankles, turned feet inward documented as of this encounter (statuses as of 08/06/2021) Medications Medication Sig Dispensed Refills Start Date [...] goal of less than 8.0% ([facility]) USE ONE TEST STRIP TO TEST BLOOD SUGAR LEVELS TWICE A DAY 200 Strip 5 11/11/2019 Active OneTouch UltraSoft Lancets MISCIndications:Ty pe 2 diabetes mellitus with hemoglobin A1c goal of less than 8.0% ([facility]) USE ONE LANCET TO TEST BLOOD SUGAR [...] 320 MG Oral Tablet (Diovan)Indication s:Atherosclerosis of [place] coronary artery of [place] heart without angina pectoris,Primary hypertension Take by mouth 0.5 Tablets in the morning AND 0.5 Tablets before bedtime. 90 Tablet 1 05/24/2021 Active Praluent 75 MG/ML Subcutaneous Solution Auto-injector (Alirocumab)Indica tions:Dyslipidemia , goal LDL below 70,Statin intolerance,Athero sclerosis of [place] coronary artery of [place] heart without angina pectoris,Old NE (myocardial infarction) [...] sores on lip 5 g 1 08/06/2021 Active Jardiance 25 MG Oral Tablet Take by mouth 1 Tablet in the morning. 90 Tablet 1 08/06/2021 Active glipiZIDE ER 10 MG Oral Tablet Extended Release 24 Hour (Glucotrol XL)Indications:Typ e 2 diabetes mellitus with hemoglobin A1c goal of less than 8.0% (HCC) Take by mouth 1 Tablet in the morning AND 1 Tablet before bedtime. 180 Tablet 1 08/06/2021 Active Tretinoin 0.05 % External Cream (Retin-A)Indicatio ns:Actinic keratosis APPLY NIGHTLY TO FACE DIRECTED,CAN MIX WITH PONDS 45 g 5 08/06/2021 Active tretinoin (RETIN-A) 0.05 % creamIndications:A ctinic keratosis APPLY NIGHTLY TO FACE DIRECTED,CAN MIX WITH PONDS 45 g 5 03/28/2019 2 Discontinue d(Refill) glipiZIDE ER 10 MG Oral Tablet Extended Release 24 Hour (Glucotrol XL)Indications:Typ e 2 diabetes mellitus with hemoglobin A1c goal of less than 8.0% (HCC) TAKE 1 TABLET BY MOUTH TWICE A DAY 180 Tab 1 08/09/2020 2 Discontinue d(Refill) Jardiance 25 MG Oral Tablet Take 1 Tab by mouth daily. 0 08/06/2020 2 Discontinue d(Refill) documented as of this encounter (statuses as of 08/06/2021) Active Problems Problem Noted Date Carpal tunnel [...] as of this encounter (statuses as of 08/06/2021) Resolved Problems Problem Noted Date Resolved Date Genomics Cardio Research Other*[id number] 201004/22/2016 Overview: Study Titile: Genomics Markers for Patients with Cardiovascular Disease Project # [id number] PI: Baljinder Hung MD Please call [phone] with study related questions HTN, goal below [...] as of this encounter (statuses as of 08/06/2021) Immunizations Name Administration Dates Next Due COVID-19 mRNA, LNP-s, No Pre serve, 2-Dose Series (Message Missile) 01/09/2021,06/08/2020,05/18/2020 COVID-19, LNP-s, No Preserve , Johann-sucrose, [...] Sign Reading Time Taken Comments Blood Pressure 128/70 08/06/2021 7:36 AM EDT Pulse 68 08/06/2021 7:36 AM EDT Temperature 35.8 C (96.4 F) 08/06/2021 7:36 AM ED T Respiratory Rate 16 08/06/2021 7:36 AM EDT Oxygen Saturation - - Inhaled Oxygen Concentration - - Weight 63.6 kg (140 lb 4 oz) 08/06/2021 7:36 AM EDT Height - - Body Mass Index 23.34 05/17/2021 12:38 PM EST documented in this encounter Patient Instructions * Patient Instructions* Komal Shearer LPN - 08/06/2021 7:37 AM EDT Diabetes: Keeping Feet Healthy Inspect [...] calluses yourself. Talk to your doctor or nursing home assistant (a doctor who specializes in foot care) [...] Shoes and Socks Fit Any pair of shoesnew or oldshould feel comfortable as soon as you put them on. There shouldnt be any rubbing when you walk. Wear the right shoe for any activity. For instance, a running shoeis designed to keep your feet injury-free while jogging. Buy shoes at the end of the day, when yourfeet are larger. Make sure they provide support without feeling too loose. Make sure your socks fit, too. Wear soft, seamless, well-padded socks for activity. [...] keep the area clean. Then call your doctorespecially if the area doesnt appear to be healing. [phone] [employer], [address] [place] [address], [place] [address]. All rights reserved. This information is not intended as a substitute for professional medical care. Always follow your healthcare professional's instructions. documented in this encounter Progress Notes * Komal Shearer LPN - 08/06/2021 7:37 AM EDT Socks and Shoes Removed for [...] monofilament pressure on plantar surface of foot DM Foot Exam completed today. Provider aware. Komal Shearer LPN * Smith Orozco MD - 08/06/2021 7:31 AM EDT No complaints of headache, trouble with vision or hearing. Eating well, with no bowel or bladder complaints. He has these sores on his lower lip, says he has gotten them before and they are a little better. Denies chest pain or palpitations. Denies shortness of breath, PND, or orthopnea. He does see cardiology too. No skin rashes or breakdown. No changes in mentation. No syncope or falls. He seessomeone for his diabetes, says he will get labs there, not today. All others negative other than those noted in HPI. Health Maintenance addressed. Had the Coronovirus vaccine, 4 doses Past Medical History: Diagnosis Date Acute NE, inferior wall, subsequent episode of care ([facility]) 1994 BPH with obstruction/lower urinary tract symptoms 11/01/2009 Carpal tunnel syndrome, bilateral 02/05/2021 CKD (chronic kidney disease) stage 2, GFR 60-89 ml/min Coronary atherosclerosis of [place] coronary artery 11/30/2001 DM type 2, goal A1c below 7 Elevated PSA 09/30/2017 PSA 7.15 Examination of eyes and vision 09/20/2013 no diabetic or hypertensive retinopathy Generalized osteoarthritis HTN, goal below 140/90 Mixed dyslipidemia Multiple pulmonary nodules 03/20/2013 Old NE (myocardial infarction) 1994 Peptic ulcer Renal mass, left 2014 3.8 cm Type 2 diabetes mellitus with hemoglobin A1c goal of less than 8.0% ([facility]) 01/11/2009 Per Diabetes Taxonomy. ICD-10 update of inactive term Past Surgical History: Procedure Laterality Date CABG, ARTERIAL, SINGLE 12/26/2010 CORONARY ARTERY BYPASS GRAFT USING ARTERY 1 GRAFT performed [place]ERTHA SENIOR [place] [facility] [place] CABG, ARTERY-VEIN, THREE 12/26/2010 CORONARY ARTERY BYPASS GRAFT ARTERIAL AND VENOUS 3 GRAFTS performed by BERTHA SENIOR [place] [facility] [place] CORONARY ANGIOGRAPHY W/LEFT HEART CATH 12/03/2010 CORONARY ANGIOGRAPHY W/LEFT HEART CATH performed by BALJINDER HUNG at [facility] [place] CHEST W CONTRAST [...] VEIN performed by BERTHA SENIOR at OR [facility] INFORMATION 03/16/1994 cardiac cath REMOVE CATARACT, INSERT LENS PROSTH Right 02/07/2019 right EXTRACAPSULAR CATARACT REMOVAL WITH INTRAOCULAR LENS performed by Quincy Paiz MD at OR [facility] REMOVE CATARACT, INSERT LENS PROSTH Left 03/01/2019 left EXTRACAPSULAR CATARACT REMOVAL WITH INTRAOCULAR LENS performed by Quincy Paiz MD at OR [facility] REPAIR INITIAL INGUINAL HERNIA REDUCIBLE AGE 5 [...] 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 Tobacco Use Smoking status: Former Smoker Years: 0.00 Smokeless tobacco: Never Used Tobacco comment: quit in 1971 Vaping Use Vaping Use: Never used Substance and Sexual Activity Alcohol use: Not Currently Drug use: No Sexual activity: Not on file Other Topics Concern Not on file Social History Narrative [facility] 2 years Social Determinants of Health Financial [...] DAY 200 Strip 5 OneTouch UltraSoft Lancets [facility] USE ONE LANCET TO TEST BLOOD SUGAR LEVELS TWICE A DAY 200 Each 3 glipiZIDE ER 10 MG Oral Tablet Extended Release 24 Hour (Glucotrol XL) TAKE 1 TABLET BY MOUTH TWICE A DAY 180 Tab 1 Jardiance 25 MG Oral Tablet Take 1 Tab by mouth daily. Basaglar KwikPen 100 UNIT/ML Subcutaneous Solution Pen-injector [...] Capsule in the morning. 90 Capsule 1 No current facility-administered medications for this visit. Immunization History Administered Date(s) Administered COVID-19 mRNA, LNP-s, No Preserve, 2-Dose Series (Message Missile) 05/18/2020, 06/08/2020, 01/09/2021 COVID-19, LNP-s, No Preserve, Johann-sucrose, Ages 12+ (Pfizer) 06/18/2021 Pneumococcal Conjugate Vacc, 13 Valent (Prevnar) 10/16/2015 Pneumococcal Polysaccharide PPV23 (Pneumovax) 04/01/2002, 12/15/2006 Seasonal Influenza, Quadrivalent Hd (Fluzone Hd) 12/01/2020 Seasonal Influenza, Quadrivalent, No Preserve, 6 Mons [...] <=159 mg/dL LDL Cholesterol 74 <=129 mg/dL Results for orders placed or performed in visit on 02/25/21 BASIC METABOLIC PANEL Result Value Ref Range BUN 19 6 - 20 mg/dL Creatinine 1.0 0.6 - 1.2 mg/dL Estimated Glomerular Filtration Rate 69 >=60 mL/min Sodium 139 135 - 146 mmol/L Potassium 4.4 3.5 - 5.1 mmol/L Chloride 101 98 - 107 mmol/L CO2 28 22 - 32 mmol/L Anion Gap 10 7 - 15 mmol/L Glucose 114 70 - 120 mg/dL Calcium 9.8 8.4 - 10.2 mg/dL Lab Results Component Value Date/Time TSH - [facility] 4.53 (H) 06/28/2020 11:20 AM TSH - [facility] 3.81 04/28/2018 09:11 AM TSH - [facility] 4.73 (H) 03/18/2018 08:29 AM TSH - [facility] 3.86 08/22/2013 11:51 AM TSH - OUTSIDE LAB 3.317 05/20/2021 12:00 AM O: Blood pressure 128/70, pulse 68, temperature 35.8 C (96.4 F), temperature source Tympanic, resp. rate 16, weight 63.6 kg (140 lb 4 oz). General appearance: well developed, well nourished and in no acute distress. Head normocephalic andatraumatic. No facial asymmetry. Eye exam; PEERLA, EOMI. No scleral icterus or nystagmus. Conjunctiva are pink and not injected. Oropharynx: no exudate, some swelling without actual ulceration of thelower lip. Trachea is in the midline. Neck supple with no adenopathy or thyromegaly. No carotid bruits. Chest expands equally and is symmetrical with normal AP diameter. Lungs clear, with no wheezes,rales, or rhonchi. Heart: S1 and S2 normal. PMI not obviously displaced. Heart regular, with soft systolic murmur. No CVA tenderness. No calf swelling or tenderness. No pedal edema. No skin rashes. Extremities unremarkable. A: Type 2 diabetes mellitus with stage 2 chronic kidney disease, without long- term current use of insulin (HCC) (Primary) - HEMOGLOBIN A1C; Future; Expected date: 08/06/2021 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) - HEMOGLOBIN A1C; Future; Expected date: 08/06/2021 DM type 2 nursing care encounter (HCC) - DIABETES FOOT EXAM Encounter for long-term (current) use of other medications - VITAMIN B12; Future; Expected date: 08/06/2021 Atherosclerosis of [place] coronary artery of [place] heart without angina pectoris Dyslipidemia, goal LDL below 70 Statin intolerance Type 2 diabetes mellitus with hemoglobin A1c goal of less than 8.0% ([facility]) - glipiZIDE ER 10 MG Oral Tablet Extended Release 24 Hour (Glucotrol XL); Take by mouth 1 Tablet inthe morning AND 1 Tablet before bedtime. Aphthous stomatitis - Triamcinolone Acetonide 0.1 % Mouth/Throat Paste (Kenalog In Orabase); Apply three times a day tosores on lip Actinic keratosis - Tretinoin 0.05 % External Cream (Retin-A); APPLY NIGHTLY TO FACE DIRECTED,CAN MIX WITH PONDS Other orders - Jardiance 25 MG Oral Tablet; Take by mouth 1 Tablet in the morning. Continue other meds as before. Follow Up: Return in about 6 months (around 02/06/2022) for Clinic Visit. | For: Clinic Visit documented in this encounter Nursing Notes * Komal Shearer LPN - 08/06/2021 7:34 AM EDT 6 month recheck Blisters in mouth documented in this encounter Plan of Treatment Upcoming Encounters Date Type Specialty Care Team Description 08/15/2021 Office Visit Cardiology Alcon Lott PA-C [address] [facility] [place] [address] 11/25/2021 Office Visit Dermatology Kim Kong MD [address] [place], [place] [address] [address] 02/10/2022 Office Visit Family Medicine Smith Orozco MD [address] [place] [address] [place] [address] 05/23/2022 Pharmacy Cardiology [facility] Cardiology Imel[place] [address] [place] [address] Scheduled Orders Name Type Priority Associated Diagnoses Orde r Schedule VITAMIN B12 Lab Routine Encounter for long-term (current) use of other medications Expected: 08/06/2021 (Approximate), Expires: 08/06/2022 HEMOGLOBIN A1C Lab Routine 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) Type 2 diabetes mellitus with stage 2 chronic kidney disease, without long-term current use of insulin (HCC) Expected: 08/06/2021 (Approximate), Expires: 08/06/2022 Health Maintenance Due Date Last Done Comments [...] of this encounter Implants Implanted Type Area Bookkeeping Clerks Supervisor Device Identifier Shelf Expiration Date Model / Serial / Lot Marker Coronary Am-Sd - [id number] [place]planted:Q[place] 1 on 12[place] [facility] [place]A: Heart [employer] 10/13/2013 AM-SD / / [id number] Sut Steel 6 M654g - [id number] Implanted:Qty: 5 on 12/26/2010 [place] [facility] [place] Chest DO NOT USE 10/14/2015 M654G / / [id number] Band [facility] 225-241 - [id number] Implanted:Qty: 1 on 12/26/2010 at [place] [facility] [place] Chest [employer] 225-241 / / [id number] Lens Intraoc 17.5 - [id number] - [id number] Implanted:Qty: 1 on 02/07/2019 by Quincy Paiz MD at OR [facility] Right: Eye [employer] LOMB 08/14/2023 [id number] / [id number] / [id number] Lens Intraoc 17.0 - [id number] - [id number] Implanted:Qty: 1 on 03/01/2019 by Quincy Paiz MD at OR [facility] Left: Eye BAUSCH [employer] LOMB 09/12/2022 [id number] / [id number] / [id number] documented as of this encounter Visit Diagnoses Diagnosis Type 2 diabetes mellitus with stage 2 chronic kidney disease, without long-term current use of insulin (HCC)- Primary 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) DM type 2 nursing care encounter (HCC) Type II or unspecified type diabetes mellitus without mention of complication, not stated as uncontrolled Encounter for long-term (current) use of other medications Atherosclerosis of [place] coronary artery of [place] heart without angina pectoris Dyslipidemia, goal LDL below 70 Other and unspecified hyperlipidemia Statin intolerance Other drug allergy Type 2 diabetes mellitus with hemoglobin A1c goal of less than 8.0% (HCC) Aphthous stomatitis Oral aphthae Actinic keratosis documented in this encounter Advance Directives Documents on File Type Date Recorded Patient Group Reservations Coordinator Expl 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
--- OUTSIDE RECORDS SUMMARY | 2022-11-16 13:10 | External Medical Summary | Summary of Care ---
Author Name Unknown Organization [place] [address] Care Team Providers Care [employer] Blind Machine Operator Name Role Phone Smith Orozco MD Primary Care Provider [phone] Reason for Visit * Reason Onset Date Comments Appointment 06/20/2021 Encounter Details Date Type Department Care Team Description 06/20/2021 Telephone Orthopaedics [facility] [address] [facility] [place] [address] Services, Scheduling [address] [place] [address] Appointment Allergies Active Allergy Reactions Severity Noted Date Comments Acetaminophen Renal complications 04/27/2009 Aspirin 08/13/2000 Stomach pain Cholestyramine 08/13/2000 Kidney pain Atorvastatin Calcium 04/28/2007 cramping Niacin Muscle pain 07/22/2007 Simvastatin Hives 08/13/2000 Ezetimibe 04/28/2007 Cramping ankles, turned feet inward documented as of this encounter (statuses as of 06/20/2021) Medications Medication Sig Dispensed Refills Start Date [...] hemoglobin A1c goal of less than 8.0% ([facility]) TAKE 1 TABLET BY MOUTH [...] 320 MG Oral Tablet (Diovan)Indications: Atherosclerosis of [place] coronary artery of [place] heart without angina pectoris,Primary hypertension Take by mouth 0.5 Tablets in the morning AND 0.5 Tablets before bedtime. 90 Tablet 1 05/24/2021 Active Praluent 75 MG/ML Subcutaneous Solution Auto-injector (Alirocumab)Indicati ons:Dyslipidemia, goal LDL below 70,Statin intolerance,Atherosc lerosis of [place] coronary artery of [place] heart without angina pectoris,Old [place] (myocardial infarction) Inject under the skin 75 mg every 14 days . 2 mL 11 06/14/2021 Active documented as of this encounter (statuses as of 06/20/2021) Active Problems Problem Noted Date Carpal tunnel [...] to patient at prior appointment. Atherosclerosis of [place] co ronary artery of [place] heart without angina pectoris 11/30/2001 GENERAL OSTEOARTHROSIS Multiple pulmonary nodules Complex renal cyst Overview: 3.8 cm; L Old SD (myocardial infarction) documented as of this encounter (statuses as of 06/20/2021) Resolved Problems Problem Noted Date Resolved Date Genomics Cardio Research Other*[id number] 201004/22/2016 Overview: Study Titile: Genomics Markers for Patients with Cardiovascular Disease Project # [id number] PI: Amalia Kingsley MD Please call [phone] with study related questions HTN, goal below [...] as of this encounter (statuses as of 06/20/2021) Immunizations Name Administration Dates Next Due COVID-19 mRNA, LNP-s, No Pre serve, 2-Dose Series (Animal Cell [employer]rapies) 01/09/2021,06/08/2020,05/18/2020 COVID-19, LNP-s, No Preserve , Johann-sucrose, [...] encounter Miscellaneous Notes * Telephone Encounter - LIANA Whelan - 06/20/2021 9:57 AM EDT Blaire/Amanda- can you please assist with cancelling surgery? Thank you! * Telephone Encounter - LIANA Mosley - 06/20/2021 8:23 AM EDT Good morning, Patient called to let you know he does not want to have surgery at this time and would like to cancel 07/17/21 and 08/14/21. Thank you documented in this encounter Plan of Treatment Upcoming Encounters Date Type Specialty Care Team Description 07/17/2021 Hospital Encounter Surgery Santosh Thomason MD [address] [place] [address] 07/17/2021 Surgery Surgery Santosh Thomason MD [address] [place] [address] NEUROPLASTY MEDIAN NERVE AT CARPAL TUNNEL 08/06/2021 Office Visit Family Medicine Smith Orozco MD [address] [place] [address] [place] [address] 08/15/2021 Office Visit Cardiology Alcon Lott PA-C [address] [place] [address] 11/25/2021 Office Visit Dermatology Kim Kong MD [address] [place] [address] [place] [address] 05/23/2022 Pharmacy Cardiology [facility] Cardiology Imelda [address] [place] [address] Scheduled Procedures Name Priority Associated Diagnoses Date/Ti [...] of this encounter Implants Implanted Type Area Asbestos Wire Finisher Device Identifier Shelf Expiration Date Model / Serial / Lot Marker Coronary [facility] - [id number] Implanted:Qty[place] 1 [place] [facility] [place] Heart [employer] 10/13/2013 [facility] / / [id number] Sut Steel 6 M654g - [id number] Implanted:Qty: 5 on 12[place]26/2010 [place] [facility] [place] DO NOT USE 10/14/2015 M654G / / [id number] Band [employer] 225-521 - [id number] Implanted:Qty: 1 on 12/26/2010 [place] [facility] [place] Chest [employer] 225-241 / / [id number] Lens Intraoc 17.5 - [id number] - [id number] Implanted:Qty: 1 on 02/07/2019 by Quincy Paiz MD at OR [facility] Right: Eye BAUSCH [employer] LOMB 08/14/2023 [id number] / [id number] / [id number] Lens Intraoc 17.0 - [id number] - [id number] Implanted:Qty: 1 on 03/01/2019 by Quincy Paiz MD at OR [facility] Left: Eye BAUSCH & LOMB 09/12/2022 [id number] / [id number] / [id number] documented as of this encounter Advance Directives Documents on File Type Date Recorded Patient Medicare Sales Representative Expl 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 Care Teams Venetian Blind Machine Operator Relationship Specialty Start Date End Date Smith Orozco MD [address] [place] [address] [place] [address] PCP - General Family Medicine 08/03/18 documented as of this encounter
--- OUTSIDE RECORDS SUMMARY | 2022-11-16 13:11 | External Medical Summary | Summary of Care ---
Author Name Unknown Organization [place] [address] Care Team Providers Care Toddler Teacher Name Role Phone Smith Orozco MD Primary Care Provider [phone] Encounter Details Date Type Department Care Team Description 04/16/2021 Patient Reported Data Patient Survey Ortho OBERD Allergies Active Allergy Reactions Severity Noted Date Comments Acetaminophen Renal complications 04/27/2009 Aspirin 08/13/2000 Stomach pain Cholestyramine 08/13/2000 Kidney pain Atorvastatin Calcium 04/28/2007 cramping Niacin Muscle pain 07/22/2007 Simvastatin Hives 08/13/2000 Ezetimibe 04/28/2007 Cramping ankles, turned feet inward documented as of this encounter (statuses as of 04/16/2021) Medications Medication Sig Dispensed Refills Start Date [...] TBECIndications:pmon day, thursday Take by mouth. Indications: pmonday, [...] A DAY 200 Strip 5 11/11/2019 Active LiveHotSpotTouch UltraSoft Lancets MISCIndications:Type 2 diabetes mellitus with hemoglobin A1c goal of less than 8.0% (HCC) USE ONE LANCET TO TEST BLOOD SUGAR LEVELS TWICE A DAY 200 Each 3 11/15/2019 Active Isosorbide Mononitrate ER 60 MG Oral Tablet Extended Release 24 Hour (Imdur) Take 1 Tab by mouth daily. In the morning 90 Tab 3 05/03/2020 Active Praluent 75 MG/ML Subcutaneous Solution Auto-injector (Alirocumab)Indicati ons:Atherosclerosis of [place] coronary artery of [place] heart without angina pectoris,Dyslipidemi a, goal LDL below 70,Old [place] (myocardial infarction),Statin intolerance Inject 75 mg under [...] Tab by mouth daily. 0 08/06/2020 Active amLODIPine Besylate 5 MG Oral Tablet (Norvasc)Indications :Essential hypertension with goal blood pressure less than 140/90,Old [place] (myocardial infarction) Take 0.5 Tabs by mouth daily. 90 Tab 3 08/28/2020 Active metFORMIN HCl 1000 MG Oral Tablet [...] 320 MG Oral Tablet (Diovan)Indications: Atherosclerosis of [place] coronary artery of [place] heart without angina pectoris,Primary hypertension Take 0.5 Tablets by mouth 2 times a day. 90 Tablet 1 02/28/2021 Active documented as of this encounter (statuses as of 04/16/2021) Active Problems Problem Noted Date Carpal tunnel [...] to patient at prior appointment. Atherosclerosis of [place] co ronary artery of [place] heart without angina pectoris 11/30/2001 GENERAL OSTEOARTHROSIS Multiple pulmonary nodules Complex renal cyst Overview: 3.8 cm; L Old [place] (myocardial infarction) documented as of this encounter (statuses as of 04/16/2021) Resolved Problems Problem Noted Date Resolved Date Gen[employer] Cardio Research Other*[id number] 201004/22/2016 Overview: Study Titile: Genomics Markers for Patients with Cardiovascular Disease Project # [id number] PI: Amalia Kingsley MD Please call [phone] with study related questions HTN, goal below [...] 01/24/2002 10/12/2015 Solar lentigo 10/27/2001 04/30/2016 ACUTE VT; INFERIOR WALL;SUBSEQUENT EPISODE CARE 06/21/2013 HYPERTENSION NOS [...] as of this encounter (statuses as of 04/16/2021) Immunizations Name Administration Dates Next Due COVID-19 [...] Encounters Date Type Specialty Care Team Description 04/19/2021 Office Visit Orthopedics Santosh Thomason MD [address] [place] [address] 04/29/2021 Office Visit Dermatology Kim Kong MD [address] [place] [address] 08/06/2021 Office Visit Family Medicine Smith Orozco MD [address] [place] [address] [place] [address] 08/15/2021 Office Visit Cardiology Alcon Lott PA-C [address] [facility] [place] [address] Health Maintenance Due Date Last Done Comments Depression Screening, Annual for Pts 12 and Over 08/29/2020 08/30/2019 DIABETES-FOOT EXAM 03/01/2021 03/01/2020, 1 03/26/2018, 02/18/2018, Additional history exists DIABETES-EYE EXAM 03/23/2021 03/23/2020, , 11/05/2017, Additional history exists Yearly B-12 07/12/2021 07/12/2020, 08/14, 08/19/2018, Additional history exists DIABETES-HGBA1C EVERY 6 MONTHS 08/26/2021 02/25/2021, 06/28/2020, 03/01/2020, Additional history exists DIABETES-URINE ALBUMIN/CREATININE EVERY 12 [...] of this encounter Implants Implanted Type Area Teller Device Identifier Shelf Expiration Date Model / Serial / Lot Marker Coronary [facility] - [id number] [place] [facility] [place] [facility] [employer] [facility] / [id number] Sut Steel 6 M654g - [id number] Implanted:Qty: 5 on [place] [facility] [place] DO NOT USE 10/14/2015 M654G / / [id number] Band Ankur 225-241 - [id number] Implanted:Qty: 1 on 12/26/2010 [place] [facility] [place] Chest [employer] 225-241 / / [id number] Lens Intraoc 17.5 - [id number] - [id number] Implanted:Qty: 1 on 02/07/2019 by Quincy Paiz MD at OR [facility] Right: Eye BAUSCH [employer] LOMB 08/14/2023 [id number] / [id number] / [id number] Lens Intraoc 17.0 - [id number] - [id number] Implanted:Qty: 1 on 03/01/2019 by Quincy Paiz MD at OR [facility] Left: Eye BAUSCH & LOMB 09/12/2022 [id number] / [id number] / [id number] documented as of this encounter Advance Directives Documents on File Type Date Recorded 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 Care Teams Toddler Teacher Relationship Specialty Start Date End Date Smith Orozco MD PCP - General Family Medicine 08/03/18 documented as of this encounter
--- OUTSIDE RECORDS SUMMARY | 2022-11-16 13:11 | External Medical Summary | Summary of Care ---
Author Name Unknown Organization [place] [address] Care Team Providers Care Staffing Assistant Name Role Phone Smith Orozco MD Primary Care Provider Encounter Details Date Type Department Care Team Description 05/14/2021 Patient Reported Data Patient Survey Ortho OBERD Allergies Active Allergy Reactions Severity Noted Date Comments Acetaminophen Renal complications 04/27/2009 Aspirin 08/13/2000 Stomach pain Cholestyramine 08/13/2000 Kidney pain Atorvastatin Calcium 04/28/2007 cramping Niacin Muscle pain 07/22/2007 Simvastatin Hives 08/13/2000 Ezetimibe 04/28/2007 Cramping ankles, turned feet inward documented as of this encounter (statuses as of 05/14/2021) Medications Medication Sig Dispensed Refills Start Date [...] A DAY 200 Strip 5 11/11/2019 Active [employer]Touch UltraSoft Lancets MISCIndications:Type 2 diabetes mellitus with hemoglobin A1c goal of less than 8.0% (HCC) USE ONE LANCET TO TEST BLOOD SUGAR LEVELS TWICE A DAY 200 Each 3 11/15/2019 Active Praluent 75 MG/ML Subcutaneous Solution Auto-injector (Alirocumab)Indicati ons:Atherosclerosis of [place] coronary artery of [place] heart without angina pectoris,Dyslipidemi a, goal LDL below 70,Old [place] (myocardial infarction),Statin intolerance Inject 75 mg under [...] 320 MG Oral Tablet (Diovan)Indications: Atherosclerosis of [place] coronary artery of [place] heart without angina pectoris,Primary hypertension Take 0.5 [...] with goal blood pressure less than 140/90,Old [place] (myocardial infarction) Take by mouth 1 Tablet in the morning. 90 Tablet 3 05/10/2021 Active documented as of this encounter (statuses as of 05/14/2021) Active Problems Problem Noted Date Carpal tunnel [...] to patient at prior appointment. Atherosclerosis of [place] co ronary artery of [place] heart without angina pectoris 11/30/2001 GENERAL OSTEOARTHROSIS Multiple pulmonary nodules Complex renal cyst Overview: 3.8 cm; L Old [place] (myocardial infarction) documented as of this encounter (statuses as of 05/14/2021) Resolved Problems Problem Noted Date Resolved Date Genomics Cardio Research Other*[id number] 201004/22/2016 Overview: Study Titile: Genomics Markers for Patients with Cardiovascular Disease Project # [id number] PI: Amalia Kingsley MD Please call [phone] with study related questions HTN, goal below [...] 01/24/2002 10/12/2015 Solar lentigo 10/27/2001 04/30/2016 ACUTE DE; INFERIOR WALL;SUBSEQUENT EPISODE CARE 06/21/2013 HYPERTENSION NOS [...] as of this encounter (statuses as of 05/14/2021) Immunizations Name Administration Dates Next Due COVID-19 [...] Encounters Date Type Specialty Care Team Description 05/17/2021 Office Visit Orthopedics Santosh Thomason MD [address] [facility] [place] [address] 08/06/2021 Office Visit Family Medicine Smith Orzoco MD [address] [place] [address] [place] [address] 08/15/2021 Office Visit Cardiology Alcon Lott PA-C [address] [facility] [place] [address] 11/25/2021 Office Visit Dermatology Kim Kong MD [address] [facility] [place] [address] Health Maintenance Due Date Last Done Comments [...] of this encounter Implants Implanted Type Area Rn Hedis Device Identifier Shelf Expiration Date Model / Serial / Lot Marker Coronary [facility] - [id number] [place]ed:Q[place] 1 [place] [facility] [place] Heart [employer] 10/13/2013 [facility] / / [id number] Sut Steel 6 M654g - [id number] Implanted:Qty: 5 on [place]2010 [place] [facility] [place] DO NOT USE 10/14/2015 M654G / / [id number] Band Ankur 225-241 - [id number] Implanted:Qty: 1 [place] [facility] [place] [employer] 225-241 / / [id number] Lens Intraoc 17.5 - [id number] - [id number] Implanted:Qty: 1 on 02/07/2019 by Quincy Paiz MD at OR [facility] Right: Eye BAUSCH & LOMB 08/14/2023 [id number] / [id number] / [id number] Lens Intraoc 17.0 - [id number] - [id number] Implanted:Qty: 1 on 03/01/2019 by Quincy Paiz MD at OR [facility] Left: Eye BAUSCH & LOMB 09/12/2022 [id number] / [id number] / [id number] documented as of this encounter Advance Directives Documents on File Type Date Recorded Patient Supervisor Coating Expl 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 Care Teams Staffing Assistant Relationship Specialty Start Date End Date Smith Orozco MD PCP - General Family Medicine 08/03/18 documented as of this encounter
--- OUTSIDE RECORDS SUMMARY | 2022-11-16 13:11 | External Medical Summary | Summary of Care ---
Author Name Unknown Organization [place] [address] Care Team Providers Care Foreign Language Professor Name Role Phone Smith Orozco MD Primary [...] A DAY 200 Strip 5 11/11/2019 Active ScreachTVTouch UltraSoft Lancets MISCIndications:Type 2 diabetes mellitus with hemoglobin A1c goal of less than 8.0% (HCC) USE ONE LANCET TO TEST BLOOD SUGAR LEVELS TWICE A DAY 200 Each 3 11/15/2019 Active Praluent 75 MG/ML Subcutaneous Solution Auto-injector (Alirocumab)Indicati ons:Atherosclerosis of [place] coronary artery of [place] heart without angina pectoris,Dyslipidemi a, goal LDL below 70,Old [place] (myocardial infarction),Statin intolerance Inject 75 mg under [...] 320 MG Oral Tablet (Diovan)Indications: Atherosclerosis of [place] coronary artery of [place] heart without angina pectoris,Primary hypertension Take 0.5 [...] less than 140/90,Old [place] (myocardial infarction) Take by mouth 1 Tablet [...] to patient at prior appointment. Atherosclerosis of [place] co ronary artery of [place] heart without angina pectoris 11/30/2001 GENERAL OSTEOARTHROSIS Multiple pulmonary nodules Complex renal cyst Overview: 3.8 cm; L Old [place] (myocardial infarction) documented as of this encounter (statuses as of 05/14/2021) Resolved Problems Problem Noted Date Resolved Date Genomics Cardio Research Other*[id number] 201004/22/2016 Overview: Study Titile: Genomics Markers for Patients with Cardiovascular Disease Project # [id number] PI: Amalia Kingsley MD Please call [phone] with study related questions HTN, goal below [...] Office Visit Orthopedics Santosh Thomason MD [address] [facility] [place] [address] 08/06/2021 Office Visit Family Medicine Smith Orozco MD [address] [place] [address] [place] [address] 08/15/2021 Office Visit Cardiology Alcon Lott PA-C [address] [place] [address] 11/25/2021 Office Visit [facility]atology [facility] [address] Health Maintenance Due Date Last Done Comments [...] of this encounter Implants Implanted Type Area Rotary Envelope Machine Operator Device Identifier Shelf Expiration Date Model / Serial / Lot Marker Coronary [facility] - [id number] Implanted:Qty: 1 on 12/26/2010 [place] [facility] [place]A: Heart [employer] 10/13/2013 [facility] / / [id number] Sut Steel 6 M654g - [id number] Implanted:Qty: 5 on 12/26/2010 [place] [facility] [place] Chest DO NOT USE 10/14/2015 M654G / / [id number] Band Ankur 225-241 - [id number] Implanted:Qty: 1 on 12/26/2010 [place] [facility] [place] Chest [employer] 225-241 / / [id number] Lens Intraoc 17.5 - [id number] - [id number] Implanted:Qty: 1 on 02/07/2019 by Quincy Paiz MD at OR [facility] Right: Eye BA[employer]CH [employer] LOMB 08/14/2023 [id number] / [id number] / [id number] Lens Intraoc 17.0 - [id number] - [id number] Implanted:Qty: 1 on 03/01/2019 by Quincy Paiz MD at OR [facility] Left: Eye BAUSCH [employer] LOMB 09/12/2022 [id number] / [id number] / [id number] documented as of this encounter Advance Directives Documents on File Type Date Recorded Patient Acid Splicer Expl 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 Care Teams Foreign Language Professor Relationship Specialty Start Date End Date Smith Orozco MD PCP - General Family Medicine 08/03/18 documented as of this encounter
--- OUTSIDE RECORDS SUMMARY | 2022-11-16 13:11 | External Medical Summary | Summary of Care ---
Author Name Unknown Organization [facility] Address [facility] [place] [address] Care Team Providers Care Hardwood Flooring Specialist Name Role Phone Smith Orozco MD Primary Care Provider Reason for Visit * Reason Comments eRx-Medication Refill Encounter Details Date Type Department Care Team Description 04/18/2021 Refill Cardiology, [facility] [address] [place] [address] Karly Adler PA-C [address] [place] [address] Allergies Active Allergy Reactions Severity Noted Date Comments Acetaminophen Renal complications 04/27/2009 Aspirin 08/13/2000 Stomach pain Cholestyramine 08/13/2000 Kidney pain Atorvastatin Calcium 04/28/2007 cramping Niacin Muscle pain 07/22/2007 Simvastatin Hives 08/13/2000 Ezetimibe 04/28/2007 Cramping ankles, turned feet inward documented as of this encounter (statuses as of 04/19/2021) Medications Medication Sig Dispensed Refills Start Date [...] TBECIndications:p thursday, thursday Take by mouth. Indications: pmay, thursday 0 Active MULTI-VITAMIN PO TABS one pill each day 0 Active tretinoin (RETIN-A) 0.05 % creamIndications: Actinic keratosis APPLY NIGHTLY TO FACE DIRECTED,CAN MIX WITH PONDS 45 g 5 03/28/2019 Active ONETOUCH ULTRA STRPIndications:T ype 2 diabetes [...] Subcutaneous Solution Auto-injector (Alirocumab)Indic ations:Atheroscle rosis of [place] coronary artery of [place] heart without angina pectoris,Dyslipid emia, goal LDL below 70,Old [place] (myocardial infarction),Stati n intolerance Inject 75 mg [...] Active amLODIPine Besylate 5 MG Oral Tablet (Norvasc)Indicati ons:Essential hypertension with goal blood pressure less than 140/90,Old MS (myocardial infarction) Take 0.5 Tabs by mouth [...] 02/21/2021 Active Valsartan 320 MG Oral Tablet (Diovan)Indicatio ns:Atherosclerosi s of [place] coronary artery of [place] heart without angina pectoris,Primary hypertension Take 0.5 Tablets by mouth 2 times a day. 90 Tablet 1 02/28/2021 Active Isosorbide Mononitrate ER 60 MG Oral Tablet Extended Release 24 Hour (Imdur) TAKE 1 TABLET BY MOUTH EVERY MORNING 90 Tablet 3 04/19/2021 Active Isosorbide Mononitrate ER 60 MG Oral Tablet Extended Release 24 Hour (Imdur) Take 1 Tab by mouth daily. In the morning 90 Tab 3 05/03/2020 2 Discontinued documented as of this encounter (statuses as of 04/19/2021) Active Problems Problem Noted Date Carpal tunnel [...] to patient at prior appointment. Atherosclerosis of [place] co ronary artery of [place] heart without angina pectoris 11/30/2001 GENERAL OSTEOARTHROSIS Multiple pulmonary nodules Complex renal cyst Overview: 3.8 cm; L Old [place] (myocardial infarction) documented as of this encounter (statuses as of 04/19/2021) Resolved Problems Problem Noted Date Resolved Date Genomics Cardio Research Other*[id number] 201004/22/2016 Overview: Study Titile: Genomics Markers for Patients with Cardiovascular Disease Project # [id number] PI: Amalia Kingsley MD Please call [phone] with study related questions HTN, goal below [...] as of this encounter (statuses as of 04/19/2021) Immunizations Name Administration Dates Next Due COVID-19 mRNA, LNP-s, No Pre serve, 2-Dose Series ([employer]) 01/09/2021,06/08/2020,05/18/2020 Pneumococcal Conjugate Vacc, 13 Valent (Prevnar) [...] Telephone Encounter - Karly Adler PA-C - 04/19/2021 3:49 PM EST Signed Prescriptions: Disp Refills Isosorbide Mononitrate ER 60 MG Oral Table*90 Tab*3 Sig: TAKE 1 TABLET BY MOUTH EVERY MORNING Authorizing Provider: KARLY ADLER * Telephone Encounter - Lizandro Em RN - 04/19/2021 9:47 AM EST Pending Prescriptions: Disp Refills Isosorbide Mononitrate ER 60 MG Oral Tabl*90 Tab*3 Sig: TAKE 1 TABLET BY MOUTH EVERY MORNING * Telephone Encounter - Lizandro Em RN - 04/19/2021 9:46 AM EST Pending Prescriptions: Disp Refills Isosorbide Mononitrate ER 60 MG Oral Tabl*90 Tab*3 Sig: TAKE 1 TABLET BY MOUTH EVERY MORNING Last Visit: 07/12/2020 Next Visit: Visit date not found Last medication order date: 05/03/2020 Have you choosen a preferred pharm?? yes Patient Active Problem List Diagnosis Code GENERAL OSTEOARTHROSIS M15.9 Atherosclerosis of [place] coronary artery of [place] heart without angina pectoris I25.10 ADVANCE DIRECTIVE INFORMATION Type 2 diabetes mellitus with hemoglobin A1c goal of less than 8.0% ([facility]) E11.9 DYSLIPIDEMIA, GOAL LDL BELOW 70 E78.5 BPH with obstruction/lower urinary tract symptoms N40.1, N13.8 Primary hypertension I10 Statin intolerance Z78.9 Multiple pulmonary nodules R91.8 Ischemic cardiomyopathy I25.5 Complex renal cyst N28.1 Hx of actinic keratosis Z87.2 Type 2 diabetes mellitus with stage 2 chronic kidney disease, without long- term current use of insulin ([facility]) E11.22, N18.2 Hx of nonmelanoma skin cancer Z85.828 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 ([facility]) E11.22, I12.9, N18.2 Old MS (myocardial infarction) I25.2 Nonrheumatic aortic valve stenosis [...] TSH - [facility] 3.81 04/28/2018 09:11 AM Lab Results Component Value Date/Time LDL (CALCULATED) 175. (HH) 01/25/1996 10:05 AM LDL CHOLESTEROL (CALCULATED) - [facility] 74 [...] Encounters Date Type Specialty Care Team Description 04/29/2021 Office Visit Dermatology Kim Kong MD [address] [place] [address] 05/17/2021 Office Visit Orthopedics Santosh Thomason MD [address] [place] [address] 08/06/2021 Office Visit Family Medicine Smith Orozco MD [address] [place] [address] [place] [id number] 08/15/2021 Office Visit Cardiology Karly Adler PA-C [address] [facility] [place] [address] Health Maintenance Due Date Last Done Comments [...] this encounter Implants Implanted Type Area Sales Support Representative Device Identifier Shelf Expiration Date Model / Serial / Lot Marker Coronary [facility] - [id number] Implanted:Qty: 1 [place] [facility] [place] Heart [employer] 10/13/2013 [facility] / / [id number] Sut Steel 6 M654g - [id number] Implanted:Qty: 5 on 12[place]26/2010 [place] [facility] [place] DO NOT USE 10/14/2015 M654G / / [id number] Alonso Pascual 225-106 - [id number] Implanted:Qty: 1 on 12/26/2010 [place] [facility] [place] Chest [employer] 225-241 / / [id number] Lens Intraoc 17.5 - [id number] - [id number] Implanted:Qty: 1 on 02/07/2019 by Quincy Paiz MD at OR [facility] Right: Eye [employer]OM[employer] 08/14/2023 [id number] / [id number] / [id number] Lens Intraoc 17.0 - [id number] - [id number] Implanted:Qty: 1 on 03/01/2019 by Quincy Paiz MD at OR [facility] Left: Eye [employer]USCH [employer] LOMB 09/12/2022 [id number] / [id number] / [id number] documented as of this encounter Advance Directives Documents on File Type Date Recorded 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 Care Teams Hardwood Flooring Specialist Relationship Specialty Start Date End Date Smith Orozco MD PCP - General Family Medicine 08/03/18 documented as of this encounter
--- OUTSIDE RECORDS SUMMARY | 2022-11-16 13:11 | External Medical Summary | Summary of Care ---
Author Name Unknown Organization [place] [address] Care Team Providers Care Systems Integration Advisor Name Role Phone Smith Orozco MD Primary [...] A DAY 200 Strip 5 11/11/2019 Active LineHopTouch UltraSoft Lancets MISCIndications:Type 2 diabetes mellitus with [...] MG/ML Subcutaneous Solution Auto-injector (Alirocumab)Indicati ons:Atherosclerosis of [place] coronary artery of [place] heart without angina pectoris,Dyslipidemi a, goal LDL below 70,[place] (myocardial infarction),Statin intolerance Inject 75 mg under [...] less than 140/90,[place] (myocardial infarction) Take 0.5 Tabs by mouth [...] 320 MG Oral Tablet (Diovan)Indications: Atherosclerosis of [place] coronary artery of [place] heart without angina pectoris,Primary hypertension Take 0.5 [...] to patient at prior appointment. Atherosclerosis of [place] co ronary artery of [place] heart without angina pectoris 11/30/2001 GENERAL OSTEOARTHROSIS Multiple pulmonary nodules Complex renal cyst Overview: 3.8 cm; L [place] (myocardial infarction) documented as of this encounter (statuses as of 04/16/2021) Resolved Problems Problem Noted Date Resolved Date Genomics Cardio Research Other*[id number] 201004/22/2016 Overview: Study Titile: Genomics Markers for Patients with Cardiovascular Disease Project # [id number] PI: Amalia Kingsley MD Please call [phone] with study related questions HTN, goal below [...] Orthopedics Santosh Thomason MD [address] [place] [address] 04/29/2021 Office Visit Dermatology Kim Kong MD 200 [place] [address] 08/06/2021 Office Visit Family Medicine Smith Orozco MD [address] [place] [address] [place] [address] 08/15/2021 Office Visit Cardiology Alcon Ltot PA-C 132 [facility] [place] [address] Health Maintenance Due Date Last Done Comments [...] of this encounter Implants Implanted Type Area Cutter Head Sharpener Device Identifier Shelf Expiration Date Model / Serial / Lot Marker Coronary [facility] - [id number] Implanted:Qty: 1 on 12[place]/2010 [place] [facility] [place]A: Heart [employer] [facility]13/[facility] / [id number] Sut Steel 6 M654g - [id number] Implanted:Qty: 5 on 12/26/2010 at [place] [facility] Chest DO NOT USE 10/14/2015 M654G / / [id number] Band Ankur 225-241 - [id number] Implanted:Qty: 1 on 12/26/2010 at [place] [facility] Chest [employer] 225-241 / / [id number] Lens Intraoc 17.5 - [id number] - [id number] Implanted:Qty: 1 on 02/07/2019 by Quincy Paiz MD at OR [facility] Right: Eye BAUSCH & LOMB 08/14/2023 [id number] / [id number] / [id number] Lens Intraoc 17.0 - [id number] - [id number] Implanted:Qty: 1 on 03/01/2019 by Quincy Paiz MD at OR [facility] Left: Eye BAUSCH & LOMB 09/12/2022 [id number] / [id number] / [id number] documented as of this encounter Advance Directives Documents on File Type Date Recorded Patient Pull Worker Expl 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 Care Teams Systems Integration Advisor Relationship Specialty Start Date End Date Smith Orozco MD PCP - General Family Medicine 08/03/18 documented as of this encounter
--- OUTSIDE RECORDS SUMMARY | 2022-11-16 13:11 | External Medical Summary | Summary of Care ---
Author Name Unknown Organization [place] [address] Care Team Providers Care Member Service Specialist Name Role Phone Smith Orozco MD Primary Care Provider [phone] Reason for Visit * Reason Onset Date Comments Health Maintenance 05/14/2021 Encounter Details Date Type Department Care Team Description 05/14/2021 Telephone Family Medicine [address] [phone] Smith Orozco MD [address] [place] [address] [place] [address] Health Maintenance Allergies Active Allergy Reactions Severity [...] MG/ML Subcutaneous Solution Auto-injector (Alirocumab)Indicati ons:Atherosclerosis of [place] coronary artery of [place] heart without angina pectoris,Dyslipidemi a, goal LDL below 70,[place] (myocardial infarction),Statin intolerance Inject 75 mg under [...] 320 MG Oral Tablet (Diovan)Indications: Atherosclerosis of [place] coronary artery of [place] heart without angina pectoris,Primary hypertension Take 0.5 [...] less than 140/90,[place] (myocardial infarction) Take by mouth 1 Tablet [...] to patient at prior appointment. Atherosclerosis of [place] co ronary artery of [place] heart without angina pectoris 11/30/2001 GENERAL OSTEOARTHROSIS Multiple pulmonary nodules Complex renal cyst Overview: 3.8 cm; L [place] (myocardial infarction) documented as of this encounter (statuses as of 05/14/2021) Resolved Problems Problem Noted Date Resolved Date Genomics Cardio Research Other*[id number] 201004/22/2016 Overview: Study Titile: Genomics Markers for Patients with Cardiovascular Disease Project # [id number] PI: Amalia Kingsley MD Please call [phone] with study related questions HTN, goal below [...] encounter Miscellaneous Notes * Telephone Encounter - Tatum Schmitt LPN - 05/14/2021 8:32 AM EST Care Gaps Comprehensive Care Outreach Last Office/Telemedicine Visit: 02/05/2021 (in office), Visit date not found (telemedicine) Last Office/Telemedine Visit Annual Wellness: Next Office Visit: 08/06/2021 Reviewed Health Maintenance below: Health Maintenance Care needs: Frequency: Last completed: Due next: Yearly Foot Exam 1 Year 03/01/2020 03/01/2021 Dilated Eye Exam (By Eye Doctor Or Retinal Camera) 1 Year 03/23/2020 03/23/2021 Yearly B-12 Vitamin Test 1 Year 07/12/2020 07/12/2021 A1c Blood Sugar Test - Every 6 Months 6 Months 02/25/2021 08/26/2021 Care Gap Outreach Action Taken: Spoke to patient Requested eye exam from [facility] Patient is having labs done through [facility] documented in this encounter Plan of Treatment Upcoming Encounters Date Type Specialty Care Team Description 05/17/2021 Office Visit Orthopedics Santosh Thomason MD [address] [place] [address] 08/06/2021 Office Visit Family Medicine Smith Orozco MD [address] [place] [address] [place] [address] 08/15/2021 Office Visit Cardiology Alcon Lott PA-C [address] [place] [address] 11/25/2021 Office Visit Dermatology Kim Kong MD [address] [place] [address] [place] [address] Health Maintenance Due Date Last Done Comments [...] of this encounter Implants Implanted Type Area Executive Director Sheltered Workshop Device Identifier Shelf Expiration Date Model / Serial / Lot Marker Coronary Am-Sd - [id number] Implanted:Qty: 1 on 12/26/2010 at [place] [facility] N/A: Heart [employer] 10/13/2013 [facility] / / [id number] Sut Steel 6 M654g - [id number] Implanted:Qty: 5 on 12/26/2010 at OR [facility] Chest DO NOT USE 10/14/2015 M654G / / [id number] [facility] 225-416 - [id number] Implanted:Qty: 1 on 12/26/2010 at OR [facility] Chest [employer] 225-241 / / [id number] Lens Intraoc 17.5 - [id number] - [id number] Implanted:Qty: 1 on 02/07/2019 by Quincy Paiz MD at OR [facility] Right: Eye BAUSCH & LOMB 08/14/2023 [id number] / [id number] / [id number] Lens Intraoc 17.0 - [id number] - [id number] Implanted:Qty: 1 on 03/01/2019 by Quincy Paiz MD at OR [facility] Left: Eye BAUSCH & LOMB 09/12/2022 [id number] / [id number] / [id number] documented as of this encounter Advance Directives Documents on File Type Date Recorded Patient Collaborative Teacher Expl 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 Care Teams Member Service Specialist Relationship Specialty Start Date End Date Smith Orozco MD PCP - General Family Medicine 08/03/18 documented as of this encounter
--- OUTSIDE RECORDS SUMMARY | 2022-11-16 13:11 | External Medical Summary | Summary of Care ---
Author Name Unknown Organization [place] [address] Care Team Providers Care Machinery Repair Maintenance Supervisor Name Role Phone Smith Orozco MD Primary Care Provider Reason for Visit * Reason Comments Follow Up Patient declines upp er body skin check today, would just like face/scalp checked. Hx AK and NMSC. No new areas of concern. Encounter Details Date Type Department Care Team Description 04/29/2021 Office Visit Dermatology [facility] [place] [address] [facility] [place] [address] Kim Kong MD [facility] [address] Scar*; Hx of nonmelanoma skin cancer; Hx of actinic keratosis; AK (actinic keratosis) Allergies Active Allergy Reactions Severity Noted Date Comments Acetaminophen Renal complications 04/27/2009 Aspirin 08/13/2000 Stomach pain Cholestyramine 08/13/2000 Kidney pain Atorvastatin Calcium 04/28/2007 cramping Niacin Muscle pain 07/22/2007 Simvastatin Hives 08/13/2000 Ezetimibe 04/28/2007 Cramping ankles, turned feet inward documented as of this encounter (statuses as of 04/29/2021) Medications Medication Sig Dispensed Refills Start Date [...] A DAY 200 Strip 5 11/11/2019 Active GenoTouch UltraSoft Lancets MISCIndications:Type 2 diabetes mellitus with hemoglobin A1c goal of less than 8.0% ([facility]) USE ONE LANCET TO TEST BLOOD SUGAR LEVELS TWICE A DAY 200 Each 3 11/15/2019 Active Praluent 75 MG/ML Subcutaneous Solution Auto-injector (Alirocumab)Indicati ons:Atherosclerosis of [place] coronary artery of [place] heart without angina pectoris,Dyslipidemi a, goal LDL below 70,[place] (myocardial infarction),Statin intolerance Inject 75 mg under the skin every 14 days. 3 mL 3 07/12/2020 Active glipiZIDE ER 10 MG Oral Tablet Extended Release 24 Hour (Glucotrol XL)Indications:Type 2 diabetes mellitus with hemoglobin A1c goal of less than 8.0% ([facility]) TAKE 1 TABLET BY MOUTH TWICE A DAY 180 Tab 1 08/09/2020 Active Jardiance 25 MG Oral Tablet Take 1 Tab by mouth daily. 0 08/06/2020 Active amLODIPine Besylate 5 MG Oral Tablet (Norvasc)Indications :Essential hypertension with goal blood pressure less than 140/90,[place] (myocardial infarction) Take 0.5 Tabs by mouth daily. 90 Tab 3 08/28/2020 Active metFORMIN HCl 1000 MG Oral Tablet (Glucophage)Indicati ons:Type 2 diabetes mellitus with diabetic nephropathy (HCC),Type 2 diabetes mellitus with hemoglobin A1c goal of less than 8.0% ([facility]) TAKE 1 TABLET BY MOUTH TWICE [...] 320 MG Oral Tablet (Diovan)Indications: Atherosclerosis of [place] coronary artery of [place] heart without angina pectoris,Primary hypertension Take 0.5 Tablets by mouth 2 times a day. 90 Tablet 1 02/28/2021 Active Isosorbide Mononitrate ER 60 MG Oral Tablet Extended Release 24 Hour (Imdur) TAKE 1 TABLET BY MOUTH EVERY MORNING 90 Tablet 3 04/19/2021 Active BD Pen Needle Ashley 2nd Gen 32G X 4 MM INJECT 4 X DAY 0 04/21/2021 Ac tive documented as of this encounter (statuses as of 04/29/2021) Active Problems Problem Noted Date Carpal tunnel [...] to patient at prior appointment. Atherosclerosis of [place] co ronary artery of [place] heart without angina pectoris 11/30/2001 GENERAL OSTEOARTHROSIS Multiple pulmonary nodules Complex renal cyst Overview: 3.8 cm; L [place] (myocardial infarction) documented as of this encounter (statuses as of 04/29/2021) Resolved Problems Problem Noted Date Resolved Date Genomics Cardio Research Other*[id number] 201004/22/2016 Overview: Study Titile: Genomics Markers for Patients with Cardiovascular Disease Project # [id number] PI: Amalia Kingsley MD Please call [phone] with study related questions HTN, goal below [...] as of this encounter (statuses as of 04/29/2021) Immunizations Name Administration Dates Next Due COVID-19 mRNA, LNP-s, No Pre serve, 2-Dose Series (Pollen - Social Platform) 01/09/2021,06/08/2020,05/18/2020 Pneumococcal Conjugate Vacc, 13 Valent (Prevnar) [...] Progress Notes * Kim Kong MD - 04/29/2021 10:03 AM EST SUBJECTIVE: History of Present Illness: Cl Reynolds is a 80 year old male seen today for follow up - check face/scalp, pt declines gown. Date Last Appointment: 11/01/2020. Nonhealing spot R brow x months, cryo not curative. 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 Indications: pmond, day thursday MULTI-VITAMIN PO TABS one pill each day tretinoin (RETIN-A) 0.05 % cream APPLY NIGHTLY TO FACE DIRECTED,CAN MIX WITH PONDS 45 g 5 ONETOUCH ULTRA STRP USE ONE TEST STRIP TO TEST BLOOD SUGAR LEVELS TWICE A DAY 200 Strip 5 OneTouch UltraSoft Lancets [facility] USE ONE LANCET TO TEST BLOOD SUGAR [...] Tablet Take 1 Tab by mouth daily. amLODIPine Besylate 5 MG Oral Tablet (Norvasc) Take 0.5 Tabs by mouth daily. 90 Tab 3 metFORMIN HCl 1000 MG Oral Tablet (Glucophage) [...] X 4 MM INJECT 4 X DAY No current facility-administered medications for this visit. ALLERG IES: Acetaminophen, Aspirin, Cholestyramine, Lipitor [atorvastatin calcium], Niacin, Simvastatin, and Zetia [ezetimibe] OBJECTIVE: GEN: Healthy, alert, no distress, appears oriented, pleasant and cooperative. SKIN: Detailed exam of hair, face including lids and lips, neck and palpation of scalp completed and are normal except: 1. L neck, L ear - scars 2. R lateral brow - keratotic pink patch ASSESS MENT/PLAN: 1. Scars - Hx NMSC - no evidence of recurrence Discussed sun protection with patient including proper use of sunscreens and protective clothing. ABCDs explained. 2. AK, likely involving follicles, offered cryo, Efudex, blue light, pt still prefers cryo - Cryosurgery explained to the patient, verbal consent obtained, patient, site and procedure verified, time-out called, and then cryotherapy was performed with Liquid Nitrogen via cryo spray unit to 1 lesions. Location noted in physical exam. Post op course explained. *bx if persistent next visit Follow-up: 6-9 months check upper body There were no barriers tolearning and no other pain was related to today's visit. The patient and/or person accompanying patient demonstrates understanding of the visit and treatment. Kim Kong MD 04/29/2021 10:03 AM documented in this encounter Nursing Notes * Candi Kraft LPN - 04/29/2021 9:53 AM EST Patient identified by name and date of . Do you have any concerns about pain management for today's visit? No Living Will or Advance Directive for Health Care as noted on problem list. [facility] is a way you can talk to your provider online through e-mail. Would you like to sign up? I can activate it for you? ALREADY ACTIVE Chief Complaint Patient presents with Follow Up Patient declines upper body skin check today, would just like face/scalp checked. Hx AK and NMSC. No new areas of concern. documented in this encounter Plan of Treatment Upcoming Encounters Date Type Specialty Care Team Description 05/17/2021 Office Visit Orthopedics Santosh Thomason MD [address] [place] [address] 08/06/2021 Office Visit Family Medicine Smith Orozco MD [address] [place] [address] [place] [address] 08/15/2021 Office Visit Cardiology Alcon Lott PA-C [address] [place] [address] 11/25/2021 Office Visit Dermatology Kim Kong MD [address] [place] [address], [place] [id number] Health Maintenance Due Date Last Done Comments [...] of this encounter Implants Implanted Type Area Asparagus Buncher Device Identifier Shelf Expiration Date Model / Serial / Lot Marker Coronary [facility] - [id number] Implanted:Qty[place] 1 [place] [facility] Heart [employer] 10/13/2013 [facility] / / [id number] Sut Steel 6 M654g - [id number] Implanted:Qty: 5 on 12/26/2010 [place] [facility] Chest DO NOT USE 10/14/2015 M654G / / [id number] [facility] [place] 225-679 - [id number] Implanted:Qty: 1 on 12/26/2010 [place] [facility] Chest [employer] 225-241 / / [id number] Lens Intraoc 17.5 - [id number] - [id number] Implanted:Qty: 1 on 02/07/2019 by Quincy Paiz MD at OR [facility] Right: Eye BAUSCH & LOMB 08/14/2023 [id number] / [id number] / [id number] Lens Intraoc 17.0 - [id number] - [id number] Implanted:Qty: 1 on 03/01/2019 by Quincy Paiz MD at OR [facility] Left: Eye BAUSCH & LOMB 09/12/2022 [id number] / [id number] / [id number] documented as of this encounter Visit Diagnoses Diagnosis Scar- Primary Scar condition and fibrosis of skin Hx of nonmelanoma skin cancer Personal history of other malignant neoplasm of skin Hx of actinic keratosis Personal history of diseases of skin and subcutaneous tissue [place] (actinic keratosis) Actinic keratosis documented in this encounter Advance Directives Documents on File Type Date Recorded Patient Urban Forester Expl 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 Care Teams Machinery Repair Maintenance Supervisor Relationship Specialty Start Date End Date Smith Orozco MD PCP - General Family Medicine 08/03/18 documented as of this encounter
--- OUTSIDE RECORDS SUMMARY | 2022-11-16 13:11 | External Medical Summary | Summary of Care ---
Author Name Unknown Organization [place] [address] Care Team Providers Care Fence Installer Helper Name Role Phone Smith Orozco MD Primary [...] A DAY 200 Strip 5 11/11/2019 Active Simply MeasuredTouch UltraSoft Lancets MISCIndications:Type 2 diabetes mellitus with [...] MG/ML Subcutaneous Solution Auto-injector (Alirocumab)Indicati ons:Atherosclerosis of [place] coronary artery of [place] heart without angina pectoris,Dyslipidemi a, goal LDL below 70,[place] (myocardial infarction),Statin intolerance Inject 75 mg under [...] with goal blood pressure less than 140/90,[place] (myocardial infarction) Take 0.5 Tabs by mouth [...] 320 MG Oral Tablet (Diovan)Indications: Atherosclerosis of [place] coronary artery of [place] heart without angina pectoris,Primary hypertension Take 0.5 [...] to patient at prior appointment. Atherosclerosis of [place] co ronary artery of [place] heart without angina pectoris 11/30/2001 GENERAL OSTEOARTHROSIS Multiple pulmonary nodules Complex renal cyst Overview: 3.8 cm; L [place] (myocardial infarction) documented as of this encounter (statuses as of 04/16/2021) Resolved Problems Problem Noted Date Resolved Date Genomics Cardio Research Other*[id number] 201004/22/2016 Overview: Study Titile: Genomics Markers for Patients with Cardiovascular Disease Project # [id number] PI: Amalia Kingsley MD Please call [phone] with study related questions HTN, goal below [...] 01/24/2002 10/12/2015 Solar lentigo 10/27/2001 04/30/2016 ACUTE [place]; INFERIOR WALL;SUBSEQUENT EPISODE CARE 06/21/2013 HYPERTENSION NOS [...] Orthopedics Santosh Thomason MD [address] [place] [address] 04/29/2021 Office Visit Dermatology Kim Kong MD 200 [place] [address] 08/06/2021 Office Visit Family Medicine Smith Orozco MD [address] [place] [address] [place] [address] 08/15/2021 Office Visit Cardiology Alcon Lott PA-C 132 [facility] [place] [address] Health Maintenance Due Date Last Done Comments [...] of this encounter Implants Implanted Type Area Strategic Insights Lead Device Identifier Shelf Expiration Date Model / Serial / Lot Marker Coronary [facility] - [id number] Implanted:Qty: 1 [place] [facility]: Heart [employer] [facility]/13/[facility] / [id number] Sut Steel 6 M654g - [id number] Implanted:Qty: 5 on 12/26/2010 [place] [facility] Chest DO NOT USE 10/14/2015 M654G / / [id number] Band Ankur 225-241 - [id number] Implanted:Qty: 1 on 12/26/2010 [place] [facility] Chest [employer] 225-241 / / [id number] Lens Intraoc 17.5 - [id number] - [id number] Implanted:Qty: 1 on 02/07/2019 by Quincy Paiz MD at OR [facility] Right: Eye BAUSCH & LOMB 08/14/2023 [id number] / [id number] / [id number] Lens Intraoc 17.0 - [id number] - [id number] Implanted:Qty: 1 on 03/01/2019 by Quincy Paiz MD at OR [facility] Left: Eye BAUSCH & LOMB 09/12/2022 [id number] / [id number] / [id number] documented as of this encounter Advance Directives Documents on File Type Date Recorded Patient Cruller Maker Expl 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 and were consensually agreed upon. Care Teams Fence Installer Helper Relationship Specialty Start Date End Date Smith Orozco MD PCP - General Family Medicine 08/03/18 documented as of this encounter
--- OUTSIDE RECORDS SUMMARY | 2022-11-16 13:11 | External Medical Summary | Summary of Care ---
Author Name Unknown Organization [place] [address] Care Team Providers Care Textile Technical Officer Name Role Phone Smith Orozco MD Primary [...] A DAY 200 Strip 5 11/11/2019 Active AgentrunTouch UltraSoft Lancets MISCIndications:Type 2 diabetes mellitus with hemoglobin A1c goal of less than 8.0% (HCC) USE ONE LANCET TO TEST BLOOD SUGAR LEVELS TWICE A DAY 200 Each 3 11/15/2019 Active Praluent 75 MG/ML Subcutaneous Solution Auto-injector (Alirocumab)Indicati ons:Atherosclerosis of [place] coronary artery of [place] heart without angina pectoris,Dyslipidemi a, goal LDL below 70,Old MD (myocardial infarction),Statin intolerance Inject 75 mg under [...] 320 MG Oral Tablet (Diovan)Indications: Atherosclerosis of [place] coronary artery of [place] heart without angina pectoris,Primary hypertension Take 0.5 [...] to patient at prior appointment. Atherosclerosis of [place] co ronary artery of [place] heart without angina pectoris 11/30/2001 GENERAL OSTEOARTHROSIS Multiple pulmonary nodules Complex renal cyst Overview: 3.8 cm; L Old [place] (myocardial infarction) documented as of this encounter (statuses as of 05/14/2021) Resolved Problems Problem Noted Date Resolved Date Genomics Cardio Research Other*[id number] 201004/22/2016 Overview: Study Titile: Genomics Markers for Patients with Cardiovascular Disease Project # [id number] PI: Amalia Kingsley MD Please call [phone] with study related questions HTN, goal below [...] Office Visit Orthopedics Santosh Thomason MD [address] [facility] [place] [address] 08/06/2021 Office Visit Family Medicine Smith Orozco MD [address] [place] [address] [place] [address] 08/15/2021 Office Visit Cardiology Alcon Lott PA-C [address] [facility] [place] [address] 11/25/2021 Office Visit Dermatology Kim Kong MD 200 [facility] [place] [address] Health Maintenance Due Date Last Done Comments [...] of this encounter Implants Implanted Type Area Apparatus Lineman Device Identifier Shelf Expiration Date Model / Serial / Lot Marker Coronary [facility] - [id number] Implanted:Qty: 1 on 12/26/2010 at OR [facility] N/A: Heart [employer] 10/13/2013 AM-SD / / [id number] Sut Steel 6 M654g - [id number] Implanted:Qty: 5 on 12/26/2010 at OR [facility] Chest DO NOT USE 10/14/2015 M654G / / [id number] Band Ankur 225-241 - [id number] Implanted:Qty: 1 on 12/26/2010 at OR [facility] Chest [employer] 225-241 / / [id number] Lens Intraoc 17.5 - [id number] - [id number] Implanted:Qty: 1 on 02/07/2019 by Quincy Paiz MD at OR [facility] Right: Eye BAUSCH & LOMB 08/14/2023 [id number] / [id number] / [id number] Lens Intraoc 17.0 - [id number] - [id number] Implanted:Qty: 1 on 03/01/2019 by Quincy Paiz MD at OR [facility] Left: Eye BAUSCH & LOMB 09/12/2022 [id number] / [id number] / [id number] documented as of this encounter Advance Directives Documents on File Type Date Recorded Patient Blueprint Processor Expl 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 Care Teams Textile Technical Officer Relationship Specialty Start Date End Date Smith Orozco MD PCP - General Family Medicine 08/03/18 documented as of this encounter
--- OUTSIDE RECORDS SUMMARY | 2022-11-16 13:11 | External Medical Summary | Summary of Care ---
Author Name Unknown Organization [place] [address] Care Team Providers Care Bulk Delivery Driver Name Role Phone Smith Orozco MD Primary Care Provider [phone] Encounter Details Date Type Department Care Team [...] A DAY 200 Strip 5 11/11/2019 Active WoozworldTouch UltraSoft Lancets MISCIndications:Type 2 diabetes mellitus with hemoglobin A1c goal of less than 8.0% (HCC) USE ONE LANCET TO TEST BLOOD SUGAR LEVELS TWICE A DAY 200 Each 3 11/15/2019 Active Praluent 75 MG/ML Subcutaneous Solution Auto-injector (Alirocumab)Indicati ons:Atherosclerosis of k[place] coronary artery of k[place] heart without angina pectoris,Dyslipidemi a, goal LDL below 70,Old [place] (myocardial infarction),Statin intolerance Inject 75 mg under [...] 320 MG Oral Tablet (Diovan)Indications: Atherosclerosis of k[place] coronary artery of k[place] heart without angina pectoris,Primary hypertension Take 0.5 [...] to patient at prior appointment. Atherosclerosis of [place] co ronary artery of kake heart without angina pectoris 11/30/2001 GENERAL OSTEOARTHROSIS Multiple pulmonary nodules Complex renal cyst Overview: 3.8 cm; L Old [place] (myocardial infarction) documented as of this encounter (statuses as of 05/14/2021) Resolved Problems Problem Noted Date Resolved Date Genomics Cardio Research Other*[id number] 201004/22/2016 Overview: Study Titile: Genomics Markers for Patients with Cardiovascular Disease Project # [id number] PI: Amalia Kingsley MD Please call [phone] with study related questions HTN, goal below [...] Office Visit Orthopedics Santosh Thomason MD 132 [facility] [place] [address] 08/06/2021 Office Visit Family Medicine Smith Orozco MD [address] [place] [address] [place] [address] 08/15/2021 Office Visit Cardiology Alcon Lott PA-C [address] [facility] [place] [address] 11/25/2021 Office Visit Dermatology Kim Kong MD 200 [facility] [place] [address] Health Maintenance Due Date Last Done Comments [...] of this encounter Implants Implanted Type Area Editorial Assistant Device Identifier Shelf Expiration Date Model / Serial / Lot Marker Coronary [facility] - [id number] Implanted:Qty: 1 on 12/[place] [facility] [place]: Heart [employer] 10/13/2013 AM-SD / / [id number] Sut Steel 6 M654g - [id number] Implanted:Qty: 5 on 12/26/2010 [place] [facility] Chest DO NOT USE 10/14/2015 M654G / / [id number] Band Ankur 225-241 - [id number] Implanted:Qty: 1 on 12/26/2010 [place] [facility] Chest [employer] 225-241 / / [id number] Lens Intraoc 17.5 - [id number] - [id number] Implanted:Qty: 1 on 02/07/2019 by Quincy Paiz MD at OR [facility] Right: Eye BAUSCH & LOMB 08/14/2023 [id number] / [id number] / [id number] Lens Intraoc 17.0 - [id number] - [id number] Implanted:Qty: 1 on 03/01/2019 by Quincy Paiz MD at OR [facility] Left: Eye BAUSCH & LOMB 09/12/2022 [id number] / [id number] / [id number] documented as of this encounter Advance Directives Documents on File Type Date Recorded Patient Salesperson Meats Expl 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 Care Teams Bulk Delivery Driver Relationship Specialty Start Date End Date Smith Orozco MD PCP - General Family Medicine 08/03/18 documented as of this encounter
--- OUTSIDE RECORDS SUMMARY | 2022-11-16 13:11 | External Medical Summary | Summary of Care ---
Author Name Unknown Organization [place] [address] Care Team Providers Care Demolition Engineer Name Role Phone Smith Orozco MD Primary [...] A DAY 200 Strip 5 11/11/2019 Active FAB BAGTouch UltraSoft Lancets MISCIndications:Type 2 diabetes mellitus with hemoglobin A1c goal of less than 8.0% (HCC) USE ONE LANCET TO TEST BLOOD SUGAR LEVELS TWICE A DAY 200 Each 3 11/15/2019 Active Praluent 75 MG/ML Subcutaneous Solution Auto-injector (Alirocumab)Indicati ons:Atherosclerosis of [place] coronary artery of [place] heart without angina pectoris,Dyslipidemi a, goal LDL below 70,Old [place] (myocardial infarction),Statin intolerance Inject 75 mg under [...] 320 MG Oral Tablet (Diovan)Indications: Atherosclerosis of [place] coronary artery of [place] heart without angina pectoris,Primary hypertension Take 0.5 [...] with goal blood pressure less than 140/90,Old [place] (myocardial infarction) Take by mouth 1 Tablet [...] to patient at prior appointment. Atherosclerosis of [place] co ronary artery of [place]ash[place] heart without angina pectoris 11/30/2001 GENERAL OSTEOARTHROSIS Multiple pulmonary nodules Complex renal cyst Overview: 3.8 cm; L Old [place] (myocardial infarction) documented as of this encounter (statuses as of 05/14/2021) Resolved Problems Problem Noted Date Resolved Date Genomics Cardio Research Other*[id number] 201004/22/2016 Overview: Study Titile: Genomics Markers for Patients with Cardiovascular Disease Project # [id number] PI: Amalia Kingsley MD Please call [phone] with study related questions HTN, goal below [...] 01/24/2002 10/12/2015 Solar lentigo 10/27/2001 04/30/2016 ACUTE PA; INFERIOR WALL;SUBSEQUENT EPISODE CARE 06/21/2013 HYPERTENSION NOS [...] Visit Orthopedics Santosh Thomason MD 132 [facility] [place] [address] 08/06/2021 Office Visit Family Medicine Smith Orozco MD [address] [place] [address] [place] [address] 08/15/2021 Office Visit Cardiology Alcon Lott PA-C [address] [facility] [place] [address] 11/25/2021 Office Visit Dermatology Kim Kong MD 200 [facility] [place] [address] Health Maintenance Due Date Last Done Comments [...] of this encounter Implants Implanted Type Area Housekeeper Hospital Device Identifier Shelf Expiration Date Model / Serial / Lot Marker Coronary [facility] - [id number] Implanted:Qty: 1 on 12/26/2010 at [place] [facility] N/A: Heart [employer] 10/13/2013 AM-SD / / [id number] Sut Steel 6 M654g - [id number] Implanted:Qty: 5 on 12/26/2010 at OR [facility] Chest DO NOT USE 10/14/2015 M654G / / [id number] Band Ankur 225-241 - [id number] Implanted:Qty: 1 on 12/26/2010 at OR [facility] Chest [employer] 225-241 / / [id number] Lens Intraoc 17.5 - [id number] - [id number] Implanted:Qty: 1 on 02/07/2019 by Quincy Paiz MD at OR [facility] Right: Eye BAUSCH & LOMB 08/14/2023 [id number] / [id number] / [id number] Lens Intraoc 17.0 - [id number] - [id number] Implanted:Qty: 1 on 03/01/2019 by Quincy Paiz MD at OR [facility] Left: Eye BAUSCH & LOMB 09/12/2022 [id number] / [id number] / [id number] documented as of this encounter Advance Directives Documents on File Type Date Recorded Patient Automotive Brake Technician Expl 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 Care Teams Demolition Engineer Relationship Specialty Start Date End Date Smith Orozco MD PCP - General Family Medicine 08/03/18 documented as of this encounter
--- OUTSIDE RECORDS SUMMARY | 2022-11-16 13:11 | External Medical Summary | Summary of Care ---
Author Name Unknown Organization [place] [address] Care Team Providers Care Payable Representative Name Role Phone Smith Orozco MD [...] A DAY 200 Strip 5 11/11/2019 Active FlatFrog LaboratoriesTouch UltraSoft Lancets MISCIndications:Type 2 diabetes mellitus with hemoglobin A1c goal of less than 8.0% (HCC) USE ONE LANCET TO TEST BLOOD SUGAR LEVELS TWICE A DAY 200 Each 3 11/15/2019 Active Praluent 75 MG/ML Subcutaneous Solution Auto-injector (Alirocumab)Indicati ons:Atherosclerosis of [place] coronary artery of [place] heart without angina pectoris,Dyslipidemi a, goal LDL [...] 320 MG Oral Tablet (Diovan)Indications: Atherosclerosis of [place] coronary artery of [place] heart without angina pectoris,Primary hypertension Take 0.5 [...] less than 140/90,Old [place] (myocardial infarction) Take by mouth 1 Tablet [...] to patient at prior appointment. Atherosclerosis of [place] co ronary artery of [place] heart without angina pectoris 11/30/2001 GENERAL OSTEOARTHROSIS Multiple pulmonary nodules Complex renal cyst Overview: 3.8 cm; L Old [place] (myocardial infarction) documented as of this encounter (statuses as of 05/14/2021) Resolved Problems Problem Noted Date Resolved Date Genomics Cardio Research Other*[id number] 201004/22/2016 Overview: Study Titile: Genomics Markers for Patients with Cardiovascular Disease Project # [id number] PI: Amalia Kingsley MD Please call [phone] with study related questions HTN, goal below [...] Office Visit Orthopedics Santosh Thomason MD [address] [facility] [place] [address] 08/06/2021 Office Visit Family Medicine Smith Orozco MD [address] [place] [address] [place] [address] 08/15/2021 Office Visit Cardiology Alcon Lott PA-C [address] [facility] [place] [address] 11/25/2021 Office Visit Dermatology Kim Kong MD [address] [facility] [place] [address] Health Maintenance Due Date Last Done Comments [...] of this encounter Implants Implanted Type Area Statuary Painter Device Identifier Shelf Expiration Date Model / Serial / Lot Marker Coronary [facility] - [id number] Implanted:Qty: 1 on 12/26/2010 [place] [facility] [place] Heart [employer] 10/13/2013 AM-SD / / [id number] Sut Steel 6 M654g - [id number] Implanted:Qty: 5 on 12/26/2010 [place] [facility] Chest DO NOT USE 10/14/2015 M654G / / [id number] Band Ankur 225-241 - [id number] Implanted:Qty: 1 on 12/26/2010 [place] [facility] Chest [employer] 225-241 / / [id number] Lens Intraoc 17.5 - [id number] - [id number] Implanted:Qty: 1 on 02/07/2019 by Quincy Paiz MD at OR [facility] Right: Eye BAUSCH & LOMB 08/14/2023 [id number] / [id number] / [id number] Lens Intraoc 17.0 - [id number] - [id number] Implanted:Qty: 1 on 03/01/2019 by Quincy Paiz MD at OR [facility] Left: Eye BAUSCH & LOMB 09/12/2022 [id number] / [id number] / [id number] documented as of this encounter Advance Directives Documents on File Type Date Recorded Patient Loan Officer Assistant Expl 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 Care Teams Payable Representative Relationship Specialty Start Date End Date Smith Orozco MD PCP - General Family Medicine 08/03/18 documented as of this encounter
--- OUTSIDE RECORDS SUMMARY | 2022-11-16 13:11 | External Medical Summary | Summary of Care ---
Author Name Unknown Organization [place] [address] Care Team Providers Care Sweet Pickled Fruit Maker Name Role Phone Smith Orozco MD [...] A DAY 200 Strip 5 11/11/2019 Active GIVVERTouch UltraSoft Lancets MISCIndications:Type 2 diabetes mellitus with [...] MG/ML Subcutaneous Solution Auto-injector (Alirocumab)Indicati ons:Atherosclerosis of [place] coronary artery of [place] heart without angina pectoris,Dyslipidemi a, goal LDL [...] 320 MG Oral Tablet (Diovan)Indications: Atherosclerosis of [place] coronary artery of [place] heart [...] Noted Date Resolved Date Genomics Cardio Research Other*[id number] 201004/22/2016 Overview: Study Titile: Genomics Markers for Patients with Cardiovascular Disease Project # [id number] PI: Amalia Kingsley MD Please call [phone] with study related questions HTN, goal below [...] Orthopedics Santosh Thomason MD 132 [place] [address] 04/29/2021 Office Visit Dermatology Kim Kong MD 200 [place] [address] 08/06/2021 Office Visit Family Medicine Smith Orozco MD [address] [place] [address] [place] [address] 08/15/2021 Office Visit Cardiology Alcon Lott PA-C 132 [facility] [place] [address] Health Maintenance Due Date Last Done Comments [...] of this encounter Implants Implanted Type Area Dispatcher Ship Pilot Device Identifier Shelf Expiration Date Model / Serial / Lot Marker Coronary [facility] - [id number] Implanted:Qty: 1 on 12/26/2010 at [place] [facility] N/A: Heart [employer] 10/13/2013 [facility] / [id number] Sut Steel 6 M654g - [id number] Implanted:Qty: 5 on 12/26/2010 at OR [facility] Chest DO NOT USE 10/14/2015 M654G / / [id number] Band Ankur 225-241 - [id number] Implanted:Qty: 1 on 12/26/2010 at OR [facility] Chest [employer] 225-241 / / [id number] Lens Intraoc 17.5 - [id number] - [id number] Implanted:Qty: 1 on 02/07/2019 by Quincy Paiz MD at OR [facility] Right: Eye BAUSCH & LOMB 08/14/2023 [id number] / [id number] / [id number] Lens Intraoc 17.0 - [id number] - [id number] Implanted:Qty: 1 on 03/01/2019 by Quincy Paiz MD at OR [facility] Left: Eye BAUSCH & LOMB 09/12/2022 [id number] / [id number] / [id number] documented as of this encounter Advance Directives Documents on File Type Date Recorded Patient Blood Bank Credit Clerk Expl 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 Care Teams Sweet Pickled Fruit Maker Relationship Specialty Start Date End Date Smith Orozco MD PCP - General Family Medicine 08/03/18 documented as of this encounter
--- OUTSIDE RECORDS SUMMARY | 2022-11-16 13:12 | External Medical Summary | Summary of Care ---
Author Name Unknown Organization [place] [address] Care Team Providers Care Pocket Stitcher Name Role Phone Smith Orozco MD Primary Care Provider + [phone] Reason for Visit * Reason Comments NEW PATIENT CTS b/l * Evaluate & Treat - Unlimited Visits (Within 10 days (routine)) - Pending Review Specialty Diagnoses / Procedures Referred By Vinicio teixeira Referred To Contact Orthopaedic Surgery / Orthopedics Diagnoses Bilateral carpal tunnel syndrome Smith Orozco MD [address] [place] [address] [place] [address] Referral ID Status Reason Start Date Expiration Date Visits Requested Visits Authorized [id number] Pending Review Specialty Services Required 03/18/2021 1 1 Encounter Details Date Type Department Care Team Description 03/20/2021 Office Visit Orthopaedics [facility] [address] [address] Santosh Thomason MD [address] [address] Carpal tunnel syndrome, bilateral* Allergies Active Allergy Reactions Severity Noted Date Comments Acetaminophen Renal complications 04/27/2009 Aspirin 08/13/2000 Stomach pain Cholestyramine 08/13/2000 Kidney pain Atorvastatin Calcium 04/28/2007 cramping Niacin Muscle pain 07/22/2007 Simvastatin Hives 08/13/2000 Ezetimibe 04/28/2007 Cramping ankles, turned feet inward documented as of this encounter (statuses as of 03/20/2021) Medications Medication Sig Dispensed Refills Start Date [...] A1c goal of less than 8.0% ([facility]) USE ONE TEST STRIP TO TEST BLOOD SUGAR LEVELS TWICE A DAY 200 Strip 5 11/11/2019 Active OneTouch UltraSoft Lancets MISCIndications:Type 2 diabetes mellitus with hemoglobin A1c goal of less than 8.0% ([facility]) USE ONE LANCET TO TEST BLOOD SUGAR LEVELS TWICE A DAY 200 Each 3 11/15/2019 Active Isosorbide Mononitrate ER 60 MG Oral Tablet Extended Release 24 Hour (Imdur) Take 1 Tab by mouth daily. In the morning 90 Tab 3 05/03/2020 Active Praluent 75 MG/ML Subcutaneous Solution Auto-injector (Alirocumab)Indicati ons:Atherosclerosis of [place] coronary artery of [place] heart without angina pectoris,Dyslipidemi a, goal LDL below 70,Old [place] (myocardial infarction),Statin intolerance Inject 75 mg under [...] with goal blood pressure less than 140/90,Old [place] (myocardial infarction) Take 0.5 Tabs by mouth [...] MG Oral Tablet (Diovan)Indications: Atherosclerosis of [place] coronary artery of [place] heart without angina pectoris,Primary hypertension Take 0.5 Tablets by mouth 2 times a day. 90 Tablet 1 02/28/2021 Active documented as of this encounter (statuses as of 03/20/2021) Active Problems Problem Noted Date Carpal tunnel [...] patient at prior appointment. Atherosclerosis of [place] co ronary artery of [place] heart without angina pectoris 11/30/2001 GENERAL OSTEOARTHROSIS Multiple pulmonary nodules Complex renal cyst Overview: 3.8 cm; L Old [place] (myocardial infarction) documented as of this encounter (statuses as of 03/20/2021) Resolved Problems Problem Noted Date Resolved Date Genomics Cardio Research Other*[id number] 201004/22/2016 Overview: Study Titile: Genomics Markers for Patients with Cardiovascular Disease Project # [id number] PI: Baljinder Hung MD Please call [phone] with study related questions HTN, goal below [...] 01/24/2002 10/12/2015 Solar lentigo 10/27/2001 04/30/2016 ACUTE [place]; INFERIOR WALL;SUBSEQUENT EPISODE CARE 06/21/2013 HYPERTENSION NOS [...] as of this encounter (statuses as of 03/20/2021) Immunizations Name Administration Dates Next Due COVID-19 mRNA, LNP-s, No Pre serve, 2-Dose Series (Apalya) 01/09/2021,06/08/2020,05/18/2020 Pneumococcal Conjugate Vacc, 13 Valent (Prevnar) [...] Pressure - - Pulse - - Temperature 35.6 C (96 F) 03/20/2021 12:36 PM EST Respiratory Rate - - Oxygen Saturation - - Inhaled Oxygen Concentration - - Weight 64 kg (141 lb) 03/20/2021 12:36 PM EST Height 165.1 cm (5' 5") 03/20/2021 12:36 PM EST Body Mass Index 23.46 03/20/2021 12:36 PM EST documented in this encounter Progress Notes * Santosh Thomason MD - 03/20/2021 1:03 PM EST HISTORY & PHYSICAL EXAMINATION - Hand Surgery Name: Cl Reynolds Date: 03/20/2021 Time: 1:03 PM Date and Time Patient was Seen: 03/20/2021 at 1:03 PM PRESENTING PROBLEM: Numbness in both hands. HPI: The patient is an 80-year-old [id number] retired man who is a type 2 diabetic. He is seen today at the recommendation of Dr. Smith Orozco for evaluation numbness in both hands. Symptoms are worse at night and when he drives. Symptoms have been present for a year. Is left side is worse than his right. He recently had electrical studies. He has not had any treatment for this. Dr. Orozco's notes were reviewed. PAST MEDICAL HISTORY: Past Medical History: Diagnosis Date Acute TX, inferior wall, subsequent episode of care ([facility]) 1994 BPH with obstruction/lower urinary tract symptoms 11/01/2009 Carpal tunnel syndrome, bilateral 02/05/2021 CKD (chronic kidney disease) stage 2, GFR 60-89 ml/min Coronary atherosclerosis of [place] coronary artery 11/30/2001 DM type 2, goal A1c below 7 Elevated PSA 09/30/2017 PSA 7.15 Examination of eyes and vision 09/20/2013 no diabetic or hypertensive retinopathy Generalized osteoarthritis HTN, goal below 140/90 Mixed dyslipidemia Multiple pulmonary nodules 03/20/2013 Old [place] (myocardial infarction) 1994 Peptic ulcer Renal mass, left 2014 3.8 cm Type 2 diabetes mellitus with hemoglobin A1c goal of less than 8.0% ([facility]) 01/11/2009 Per Diabetes Taxonomy. ICD-10 update of inactive term Patient Active Problem List Diagnosis Code GENERAL OSTEOARTHROSIS M15.9 Atherosclerosis of [place] coronary artery of [place] heart without angina pectoris I25.10 ADVANCE DIRECTIVE INFORMATION Type 2 diabetes mellitus with hemoglobin A1c goal of less than 8.0% ([facility]) E11.9 DYSLIPIDEMIA, GOAL LDL BELOW 70 E78.5 BPH with obstruction/lower urinary tract symptoms N40.1, N13.8 Primary hypertension I10 Statin intolerance Z78.9 Multiple pulmonary nodules R91.8 Ischemic cardiomyopathy I25.5 Complex renal cyst N28.1 Hx of actinic keratosis Z87.2 Type 2 diabetes mellitus with stage 2 chronic kidney disease, without long- term current use of insulin ([facility]) E11.22, N18.2 Hx of nonmelanoma skin cancer Z85.828 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) E11.22, I12.9, N18.2 Old [place] (myocardial infarction) I25.2 Nonrheumatic aortic valve stenosis I35.0 Edema R60.9 Carpal tunnel syndrome, bilateral G56.03 PAST SURGICAL HISTORY: Past Surgical History: Procedure Laterality Date CABG, ARTERIAL, SINGLE 12/26/2010 CORONARY ARTERY BYPASS GRAFT USING ARTERY 1 GRAFT performed by BERTHA SENIOR at OR [facility] CABG, ARTERY-VEIN, THREE 12/26/2010 CORONARY ARTERY BYPASS GRAFT ARTERIAL AND VENOUS 3 GRAFTS performed by BERTHA SENIOR at OR [facility] CORONARY ANGIOGRAPHY W/LEFT HEART CATH 12/03/2010 CORONARY ANGIOGRAPHY W/LEFT HEART CATH performed by BALJINDER HUNG at [facility]ARDI[facility]S [facility] CT CHEST W CONTRAST 07/11/2013 [...] VEIN performed by BERTHA SENIOR at OR [facility] INFORMATION 03/16/1994 cardiac cath REMOVE CATARACT, INSERT LENS PROSTH Right 02/07/2019 right EXTRACAPSULAR CATARACT REMOVAL WITH INTRAOCULAR LENS performed by Quincy Paiz MD at OR [facility] REMOVE CATARACT, INSERT LENS PROSTH Left 03/01/2019 left EXTRACAPSULAR CATARACT REMOVAL WITH INTRAOCULAR LENS performed by Quincy Paiz MD at OR [facility] REPAIR INITIAL INGUINAL HERNIA REDUCIBLE AGE 5 OR MORE US AAA SCREEN, RADIOLOGY 08/19/2013 maximum diameter 2 cm, no AAA VASC DUPLEX CAROTID BILAT 09/22/2013 dense calcificed plaque, <50% ICA stenosis, vertbrals antegrade FAMILY HISTORY: Family History Problem Relation Age of Onset Cancer Grandfather (Maternal) stomach Cancer Aunt (Unspecified) stomach Diabetes Brother Other (HTN) Brother Other (Other) Brother denies any family history of skin diseases or skin cancer SOCIAL HISTORY: Social History Tobacco Use Smoking status: Former Smoker Years: 0.00 Smokeless tobacco: Never Used Tobacco comment: quit in 1971 Vaping Use Vaping Use: Never used Substance Use Topics Alcohol use: Not Currently Drug use: No MARITAL STATUS: CURRENT MEDICATIONS: Current Outpatient Medications Medication Sig Dispense Refill [...] LEVELS TWICE A DAY 200 Each 3 Isosorbide Mononitrate ER 60 MG Oral Tablet Extended Release 24 Hour (Imdur) Take 1 Tab by mouth daily. In the morning 90 Tab 3 Praluent 75 MG/ML Subcutaneous Solution Auto-injector [...] 2 times a day. 90 Tablet 1 No current facility-administered medications for this visit. ALLERGIES: Acetaminophen, Aspirin, Cholestyramine, Lipitor [atorvastatin calcium], Niacin, Simvastatin, and Zetia [ezetimibe] ROS: Negative for GI, , Cardiac, Respioratory and Neurologic complains. Remainder of systems negative. PHYSICAL EXAMINATION: General: Well developed, well nourished. Neuro: Awake, alert, and oriented. Heart & Lungs OK Extremities: There is average motion of the elbows forearms wrist. Subjective sensation is abnormalin the left thumb index and middle fingers. Static 2 point discrimination is normal. There is mild weakness of abduction both thumbs without any thenar atrophy. There is good capillary refill. Electrical studies performed by Dr. Jacob on March 07, 2021 are interpreted as showing bilateral carpal tunnel syndrome, left greater than right. IMPRESSION: Bilateral carpal tunnel syndrome. I think it is a bit more severe on the left which corresponds with the electrical findings. PLAN: We discussed options. I recommended that he be treated with braces at night for a month. Follow-up will be at that time for re-evaluation. Thank you for this consultation. Patient Active Problem List Diagnosis Code GENERAL OSTEOARTHROSIS M15.9 Atherosclerosis of [place] coronary artery of [place] heart without angina pectoris I25.10 ADVANCE DIRECTIVE INFORMATION Type 2 diabetes mellitus with hemoglobin A1c goal of less than 8.0% (HCC) E11.9 DYSLIPIDEMIA, GOAL LDL BELOW 70 E78.5 [...] and hypertension (HCC) E11.22, I12.9, N18.2 Old [place] (myocardial infarction) I25.2 Nonrheumatic aortic valve stenosis I35.0 Edema R60.9 Carpal tunnel syndrome, bilateral G56.03 Santosh Thomason MD documented in this encounter Nursing Notes * Vanessa Elder LPN - 03/20/2021 12:37 PM EST Patient presents today as new patient, for CTS b/L x years documented in this encounter Plan of Treatment Upcoming Encounters Date Type Specialty Care Team Description 04/19/2021 Office Visit Orthopedics Santosh Thomason MD [address] [place] [address] 04/29/2021 Office Visit Dermatology Kim Kong MD [address] [place] [address] 08/06/2021 Office Visit Family Medicine Smith Orozco MD [address] [facility] [place] [address] 08/15/2021 Office Visit Cardiology Alcon Lott PA-C [address] [facility] [place] [address] Scheduled Referrals Name Type Priority Associated Diagnoses Order Schedule ORTHOPAEDICS REFERRAL OP Referral Within 10 days (routine) Bilateral carpal tunnel syndrome Ordered: 03/18/2021 Health Maintenance Due Date Last Done Comments Depression Screening, Annual for Pts 12 and Over 08/29/2020 08/30/2019 DIABETES-FOOT EXAM 03/01/2021 03/01/2020, 1 03/26/2018, 02/18/2018, Additional history exists DIABETES-EYE EXAM 03/23/2021 03/23/2020, , 11/05/2017, Additional history exists Yearly B-12 07/12/2021 07/12/2020, 08/14, 08/19/2018, Additional history exists DIABETES-HGBA1C EVERY 6 MONTHS 08/26/2021 02/25/2021, 06/28/2020, 03/01/2020, Additional history exists DTaP,Tdap,and Td Vaccines [...] of this encounter Implants Implanted Type Area Film Laboratory Technician Device Identifier Shelf Expiration Date Model / Serial / Lot Marker Coronary [facility] - [id number] Implanted:Qty: 1 on 12/26/2010 at OR [facility] N/A: Heart [employer] 10/13/2013 [facility] / / [id number] Sut Steel 6 M654g - [id number] Implanted:Qty: 5 on 12/26/2010 at OR [facility] Chest DO NOT USE 10/14/2015 M654G / / [id number] Band Ankur 225-241 - [id number] Implanted:Qty: 1 on 12/26/2010 at OR [facility] Chest [employer] 225-241 / / [id number] Lens Intraoc 17.5 - [id number] - [id number] Implanted:Qty: 1 on 02/07/2019 by Quincy Paiz MD at OR [facility] Right: Eye [employer] LOMB 08/14/2023 [id number] / [id number] / [id number] Lens Intraoc 17.0 - [id number] - [id number] Implanted:Qty: 1 on 03/01/2019 by Quincy Paiz MD at OR [facility] Left: Eye BAUSCH & LOMB 09/12/2022 [id number] / [id number] / [id number] documented as of this encounter Visit Diagnoses Diagnosis Carpal tunnel syndrome, bilateral- Primary Carpal tunnel syndrome documented in this encounter Advance Directives Documents on File Type Date Recorded Patient Primary Class Teacher Expl 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 and were consensually agreed upon. Care Teams Pocket Stitcher Relationship Specialty Start Date End Date Smiht Orozco MD PCP - General Family Medicine 08/03/18 documented as of this encounter
--- OUTSIDE RECORDS SUMMARY | 2022-11-16 13:12 | External Medical Summary | Summary of Care ---
Author Name Unknown Organization [place] [address] Care Team Providers Care Hydroelectric Station Chief Name Role Phone Smith Orozco MD Primary Care Provider [phone] Encounter Details Date Type Department Care Team [...] A DAY 200 Strip 5 11/11/2019 Active Nordic RiverTouch UltraSoft Lancets MISCIndications:Type 2 diabetes mellitus with [...] MG/ML Subcutaneous Solution Auto-injector (Alirocumab)Indicati ons:Atherosclerosis of [place] coronary artery of [place] heart without angina pectoris,Dyslipidemi a, goal LDL below 70,Old [place] (myocardial infarction),Statin intolerance Inject 75 mg under [...] with goal blood pressure less than 140/90,Old [place] (myocardial infarction) Take 0.5 Tabs by mouth [...] renal cyst Overview: 3.8 cm; L Old [place] (myocardial infarction) documented as of this encounter (statuses as of 04/16/2021) Resolved Problems Problem Noted Date Resolved Date Genomics Cardio Research Other*[id number] 201004/22/2016 Overview: Study Titile: Genomics Markers for Patients with Cardiovascular Disease Project # [id number] PI: Amalia Kingsley MD Please call [phone] with study related questions HTN, goal below [...] 01/24/2002 10/12/2015 Solar lentigo 10/27/2001 04/30/2016 ACUTE [place]; INFERIOR WALL;SUBSEQUENT EPISODE CARE 06/21/2013 HYPERTENSION NOS [...] Orthopedics Santosh Thomason MD [address] [address] 04/29/2021 Office Visit Dermatology Kim Kong MD [address] [place] [address] 08/06/2021 Office Visit Family Medicine Smith Orozco MD [address] [place] [address] [place] [address] 08/15/2021 Office Visit Cardiology Alcon Lott PA-C [address] [facility] [place] [address] Health Maintenance Due Date Last Done Comments [...] of this encounter Implants Implanted Type Area Cloth Neutralizer Device Identifier Shelf Expiration Date Model / Serial / Lot Marker Coronary [facility] - [id number] Implanted:Qty: 1 on 12/26/2010 at OR [facility] N/A: Heart [employer] 10/13/[facility] [id number] Sut Steel 6 M654g - [id number] Implanted:Qty: 5 on 12/26/2010 at OR [facility] Chest DO NOT USE 10/14/2015 M654G / / [id number] Band Ankur 225-241 - [id number] Implanted:Qty: 1 on 12/26/2010 at OR [facility] Chest [employer] 225-241 / / [id number] Lens Intraoc 17.5 - [id number] - [id number] Implanted:Qty: 1 on 02/07/2019 by Quincy Paiz MD at OR [facility] Right: Eye BAUSCH & LOMB 08/14/2023 [id number] / [id number] / [id number] Lens Intraoc 17.0 - [id number] - [id number] Implanted:Qty: 1 on 03/01/2019 by Quincy Paiz MD at OR [facility] Left: Eye [employer] LOMB 09/12/2022 [id number] / [id number] / [id number] documented as of this encounter Advance Directives Documents on File Type Date Recorded 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 Care Teams Hydroelectric Station Chief Relationship Specialty Start Date End Date Smith Orozco MD PCP - General Family Medicine 08/03/18 documented as of this encounter
--- OUTSIDE RECORDS SUMMARY | 2022-11-16 13:12 | External Medical Summary | Summary of Care ---
Author Name Unknown Organization [place] [address] Care Team Providers Care National Account Director Name Role Phone Smith Orozco MD [...] A DAY 200 Strip 5 11/11/2019 Active VisualnestTouch UltraSoft Lancets MISCIndications:Type 2 diabetes mellitus with [...] MG/ML Subcutaneous Solution Auto-injector (Alirocumab)Indicati ons:Atherosclerosis of [place] coronary artery of [place] heart without angina pectoris,Dyslipidemi a, goal LDL [...] less than 140/90,Old [place] (myocardial infarction) Take 0.5 Tabs by mouth [...] 320 MG Oral Tablet (Diovan)Indications: Atherosclerosis of [place] coronary artery of [place] heart without angina pectoris,Primary hypertension Take 0.5 [...] to patient at prior appointment. Atherosclerosis of [place] co ronary artery of [place] heart without angina pectoris 11/30/2001 GENERAL OSTEOARTHROSIS Multiple pulmonary nodules Complex renal cyst Overview: 3.8 cm; L Old [place] (myocardial infarction) documented as of this encounter (statuses as of 04/16/2021) Resolved Problems Problem Noted Date Resolved Date Genomics Cardio Research Other*[id number] 201004/22/2016 Overview: Study Titile: Genomics Markers for Patients with Cardiovascular Disease Project # [id number] PI: Amalia Kingsley MD Please call [phone] with study related questions HTN, goal below [...] Orthopedics Santosh Thomason MD [address] [address] 04/29/2021 Office Visit Dermatology Kim Kong MD [address] [place] [address] 08/06/2021 Office Visit Family Medicine Smith Orozco MD [address] [place] [address] [place] [address] 08/15/2021 Office Visit Cardiology Alcon Lott PA-C [address] [facility] [place] [address] Health Maintenance Due Date Last Done Comments [...] of this encounter Implants Implanted Type Area Cathode Builder Device Identifier Shelf Expiration Date Model / Serial / Lot Marker Coronary [facility] - [id number] Implanted:Qty: 1 on 12/26/2010 at OR [facility] N/A: Heart [employer] [facility]13/[facility] [id number] Sut Steel 6 M654g - [id number] Implanted:Qty: 5 on 12/26/2010 at OR [facility] Chest DO NOT USE 10/14/2015 M654G / / [id number] Band Ankur 225-241 - [id number] Implanted:Qty: 1 on 12/26/2010 at OR [facility] Chest [employer] 225-241 / / [id number] Lens Intraoc 17.5 - [id number] - [id number] Implanted:Qty: 1 on 02/07/2019 by Quincy Paiz MD at OR [facility] Right: Eye BAUSCH & LOMB 08/14/2023 [id number] / [id number] / [id number] Lens Intraoc 17.0 - [id number] - [id number] Implanted:Qty: 1 on 03/01/2019 by Quincy Paiz MD at OR [facility] Left: Eye [employer]USCH [employer] LOMB 09/12/2022 [id number] / [id number] / [id number] documented as of this encounter Advance Directives Documents on File Type Date Recorded Patient Fluid Dynamicist Expl 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 Care Teams National Account Director Relationship Specialty Start Date End Date Smith Orozco MD PCP - General Family Medicine 08/03/18 documented as of this encounter
--- OUTSIDE RECORDS SUMMARY | 2022-11-16 13:12 | External Medical Summary | Summary of Care ---
Author Name Unknown Organization [place] [address] Care Team Providers Care Blanket Cutter Hand Name Role Phone Smith Danielle MD Primary Care Provider Reason for Visit * Reason Comments eRx-Medication Refill Encounter Details Date Type Department Care Team Description 02/21/2021 Refill Family Medicine [address] [place] [address] Lena Mckeon PA-C [address] [place] [address] [place] [address] Encounter for long-term (current) use of medications*; BPH with obstruction/lower urinary tract symptoms Allergies Active Allergy Reactions Severity Noted Date Comments Acetaminophen Renal complications 04/27/2009 Aspirin 08/13/2000 Stomach pain Cholestyramine 08/13/2000 Kidney pain Atorvastatin Calcium 04/28/2007 cramping Niacin Muscle pain 07/22/2007 Simvastatin Hives 08/13/2000 Ezetimibe 04/28/2007 Cramping ankles, turned feet inward documented as of this encounter (statuses as of 02/28/2021) Medications Medication Sig Dispensed Refills Start Date [...] TBECIndications:p thursday, thursday Take by mouth. Indications: pmonday, thursday 0 Active MULTI-VITAMIN PO TABS one pill each day 0 Active tretinoin (RETIN-A) 0.05 % creamIndications: Actinic keratosis APPLY NIGHTLY TO FACE DIRECTED,CAN MIX WITH PONDS 45 g 5 03/28/2019 Active BoxVenturesTOUCH ULTRA STRPIndications:T ype 2 diabetes mellitus with hemoglobin A1c goal of less than 8.0% ([facility]) USE ONE TEST STRIP TO TEST BLOOD SUGAR LEVELS TWICE A DAY 200 Strip 5 11/11/2019 Active EverZeroTouch UltraSoft Lancets MISCIndications:T ype 2 diabetes mellitus [...] Subcutaneous Solution Auto-injector (Alirocumab)Indic ations:Atheroscle rosis of [place] coronary artery of [place] heart without angina pectoris,Dyslipid emia, goal LDL below 70,Old [place] (myocardial infarction),Stati n intolerance Inject 75 mg under the skin every 14 days. 3 mL 3 07/12/2020 Active glipiZIDE ER 10 MG Oral Tablet Extended Release 24 Hour (Glucotrol XL)Indications:Ty pe 2 diabetes mellitus with hemoglobin A1c goal of less than 8.0% ([facility]) TAKE 1 TABLET BY MOUTH TWICE A DAY 180 Tab 1 08/09/2020 Active Jardiance 25 MG Oral Tablet Take 1 Tab by mouth daily. 0 08/06/2020 Active amLODIPine Besylate 5 MG Oral Tablet (Norvasc)Indicati ons:Essential hypertension with goal blood pressure less than 140/90,Old [place] (myocardial infarction) Take 0.5 Tabs by mouth [...] EVERY DAY 90 Tablet 1 02/21/2021 Active Finasteride 5 MG Oral Tablet (Proscar)Indicati ons:BPH with obstruction/lower urinary tract symptoms TAKE 1 TABLET BY MOUTH EVERY DAY 90 Tab 1 08/27/2020 1 Discontinued Valsartan 320 MG Oral TabletIndications :Atherosclerosis of [place] coronary artery of [place] heart without angina pectoris,Primary hypertension Take 1 Tab by mouth daily. 90 Tab 1 09/01/2020 1 Discontinued documented as of this encounter (statuses as of 02/28/2021) Active Problems Problem Noted Date Carpal tunnel [...] to patient at prior appointment. Atherosclerosis of [place] co ronary artery of [place] heart without angina pectoris 11/30/2001 GENERAL OSTEOARTHROSIS Multiple pulmonary nodules Complex renal cyst Overview: 3.8 cm; L Old [place] (myocardial infarction) documented as of this encounter (statuses as of 02/28/2021) Resolved Problems Problem Noted Date Resolved Date Gen[employer] Cardio Research Other*[id number] 201004/22/2016 Overview: Study Titile: Genomics Markers for Patients with Cardiovascular Disease Project # [id number] PI: Amalia Kingsley MD Please call [phone] with study related questions HTN, goal below [...] as of this encounter (statuses as of 02/28/2021) Immunizations Name Administration Dates Next Due COVID-19 mRNA, LNP-s, No Pre serve, 2-Dose Series (EchoFirst) 01/09/2021,06/08/2020,05/18/2020 Pneumococcal Conjugate Vacc, 13 Valent (Prevnar) [...] encounter Miscellaneous Notes * Telephone Encounter - Matthew Mena [facility] - 02/28/2021 2:11 PM EST Call to pt to discuss need for PSA. Just had other PCP ordered labs done within the last few days. Notation states he gets PSA via [facility]. Confirmed with pt he has done with his outside Urologist, but wasn't sure of his/her name as his previous provider recently retired. Had it done within the last year. Results not found per review of Epic. Pt would like to continue to have monitored by them. If levels are needed for future refills will need requested from that provider. Thanks, Matthew Mena Pharm.D. Clinical Pharmacist [facility] [phone] 02/28/2021, 2:14 PM * Telephone Encounter - Matthew Mena [facility] - 02/21/2021 1:58 PM EST Signed Prescriptions: Disp Refills Finasteride 5 MG Oral Tablet (Proscar) 90 Tab*1 Sig: TAKE 1 TABLET BY MOUTH EVERY DAY Authorizing Provider: SMITH DANIELLE Ordering User: MATTHEW MENA * Telephone Encounter - Matthew Mena [facility] - 02/21/2021 1:55 PM EST Provided 90 days supply with 1 refill(s) until upcoming appointment. Per refill protocol patient should have PSA on file within past year. Lab work ordered (AMP report and protocol medications checked). Please contact patient to advise of labs. Fasting is not required. Advise to obtain labs before hisscheduled office visit. Thanks, Matthew Mena Pharm.D. Clinical Pharmacist Telepharmacy [phone] 02/21/2021, 1:57 PM documented in this encounter Plan of Treatment Upcoming Encounters Date Type Specialty Care Team Description 03/07/2021 NeuroDiagnostic Study Neurophysiology Marito Jacob DO [address] [facility] [place] [phone] 04/29/2021 Office Visit Dermatology Kim Kong MD [address] [place] [phone] 08/06/2021 Office Visit Family Medicine Smith Danielle MD [address] [place] [address] [place] [phone] 08/15/2021 Office Visit Cardiology Alcon Lott PA-Adelfo [address] [facility] [place] [address] Health Maintenance Due Date Last Done Comments *DEPRESSION SCREENING,ANNUAL FOR PTS 12 AND OVER 02/20/2019 DIABETES-FOOT EXAM 03/01/2021 03/01/2020, 1 03/26/2018, 02/18/2018, [...] exists COVID-19 Vaccine Completed 01/09/2021, , 05/18/2020 MENINGOCOCCAL (MENACTRA/MENVEO) Aged Out No longer eligible based on patient's age to complete this topic documented as of this encounter Implants Implanted Type Area Pensionholder Information Clerk Device Identifier Shelf Expiration Date Model / Serial / Lot Marker Coronary Am-Sd - [id number] Implanted:Qty: 1 on 12/26/2010 at OR [facility] N/A: Heart [employer] 10/13/2013 AM-SD / / [id number] Sut Steel 6 M654g - [id number] Implanted:Qty: 5 on 12/26/2010 at OR [facility] Chest DO NOT USE 10/14/2015 M654G / / [id number] Alonso [facility] 225-241 - [id number] Implanted:Qty: 1 on 12/26/2010 at OR [facility] Chest [employer] 225-241 / / [id number] Lens Intraoc 17.5 - [id number] - [id number] Implanted:Qty: 1 on 02/07/2019 by Quincy Paiz MD at OR [facility] Right: Eye [employer]OM[employer] 08/14/2023 [id number] / [id number] / [id number] Lens Intraoc 17.0 - [id number] - [id number] Implanted:Qty: 1 on 03/01/2019 by Quincy Paiz MD at OR [facility] Left: Eye BAUSCH & LOMB 09/12/2022 [id number] / [id number] / [id number] documented as of this encounter Visit Diagnoses Diagnosis Encounter for long-term (current) use of medications- Primary Encounter for long-term (current) use of other medications BPH with obstruction/lower urinary tract symptoms Hypertrophy of prostate with urinary obstruction and other lower urinary tract symptoms (LUTS) documented in this encounter Advance Directives Documents on File Type Date Recorded 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 Care Teams Blanket Cutter Hand Relationship Specialty Start Date End Date Smith Danielle MD PCP - General Family Medicine 08/03/18 documented as of this encounter
--- OUTSIDE RECORDS SUMMARY | 2022-11-16 13:12 | External Medical Summary ---
Author Name Unknown Address Unknown Organization K01:[facility]ATORY [facility] - [address] [place] [address] Laboratory Report Ordering Provider Test Date Status SELENE BRANDTO 02/25/2021 09:44:58 Final Observation Date Value Abnormality Reference (Units ) Status Magnesium 02/25/2021 09:44:58 2.1 1.5-2.6 (m g/dL) Final Performing Location [facility] - [address] [place] [address]
--- OUTSIDE RECORDS SUMMARY | 2022-11-16 13:12 | External Medical Summary | Summary of Care ---
Author Name Unknown Organization [place] [address] Care Team Providers Care Instructor Nurse Name Role Phone Smith Orozco MD Primary Care Provider Encounter Details Date Type Department Care Team Description 02/26/2021 Scan Encounter [facility] Medicine [address] [phone] Smith Orozco MD [address] [place] [address] [place] [address] <No scans attached> Allergies Active Allergy Reactions Severity Noted Date Comments Acetaminophen Renal complications 04/27/2009 Aspirin 08/13/2000 Stomach pain Cholestyramine 08/13/2000 Kidney pain Atorvastatin Calcium 04/28/2007 cramping Niacin Muscle pain 07/22/2007 Simvastatin Hives 08/13/2000 Ezetimibe 04/28/2007 Cramping ankles, turned feet inward documented as of this encounter (statuses as of 02/27/2021) Medications Medication Sig Dispensed Refills Start Date [...] MG/ML Subcutaneous Solution Auto-injector (Alirocumab)Indicati ons:Atherosclerosis of [place] coronary artery of [place] heart without angina pectoris,Dyslipidemi a, goal [...] less than 140/90,Old [place] (myocardial infarction) Take 0.5 Tabs by mouth daily. 90 Tab 3 08/28/2020 Active Valsartan 320 MG Oral TabletIndications:At herosclerosis of [place] coronary artery of [place] heart without angina pectoris,Primary hypertension Take 1 Tab by mouth daily. 90 Tab 1 09/01/2020 Active metFORMIN HCl 1000 MG Oral Tablet [...] EVERY DAY 90 Tablet 1 02/21/2021 Active documented as of this encounter (statuses as of 02/27/2021) Active Problems Problem Noted Date Carpal tunnel [...] to patient at prior appointment. Atherosclerosis of [place] co ronary artery of [place] heart without angina pectoris 11/30/2001 GENERAL OSTEOARTHROSIS Multiple pulmonary nodules Complex renal cyst Overview: 3.8 cm; L Old [place] (myocardial infarction) documented as of this encounter (statuses as of 02/27/2021) Resolved Problems Problem Noted Date Resolved Date Genomics Cardio Research Other*[id number] 201004/22/2016 Overview: Study Titile: Genomics Markers for Patients with Cardiovascular Disease Project # [id number] PI: Amalia Kingsley MD Please call [phone] with study related questions HTN, goal below [...] as of this encounter (statuses as of 02/27/2021) Immunizations Name Administration Dates Next Due COVID-19 mRNA, LNP-s, No Pre serve, 2-Dose Series ([employer]) 01/09/2021,06/08/2020,05/18/2020 Pneumococcal Conjugate Vacc, 13 Valent (Prevnar) [...] Encounters Date Type Specialty Care Team Description 02/28/2021 Office Visit Cardiology Alcon Lott PA-C [address] [place] [address] 03/07/2021 NeuroDiagnostic Study Neurophysiology Marito Jacob DO [address] [facility] [place] [address] 04/29/2021 Office Visit Dermatology Kim Kong MD [address] [place] [phone] 08/06/2021 Office Visit Family Medicine Smith Orozco MD [address] [place] [address] [place] [phone] Health Maintenance Due Date Last Done Comments [...] of this encounter Implants Implanted Type Area Restorative Care Technician Device Identifier Shelf Expiration Date Model / Serial / Lot Marker Coronary [facility] - [id number] Implanted:Qty: 1 on 12/26/2010 at OR [facility] N/A: Heart [employer] 10/13/2013 [facility] / / [id number] Sut Steel 6 M654g - [id number] Implanted:Qty: 5 on 12/26/2010 at OR [facility] Chest DO NOT USE 10/14/2015 M654G / / [id number] Band Ankur 225-676 - [id number] Implanted:Qty: 1 on 12/26/2010 at OR [facility] Chest [employer] 225-241 / / [id number] Lens Intraoc 17.5 - [id number] - [id number] Implanted:Qty: 1 on 02/07/2019 by Quincy Paiz MD at OR [facility] Right: Eye [employer] LOMB 08/14/2023 [id number] / [id number] / [id number] Lens Intraoc 17.0 - [id number] - [id number] Implanted:Qty: 1 on 03/01/2019 by Quincy Paiz MD at OR [facility] Left: Eye [employer]USCH [employer] LOMB 09/12/2022 [id number] / [id number] / [id number] documented as of this encounter Advance Directives Documents on File Type Date Recorded Patient Helminthologist Expl 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 Care Teams Instructor Nurse Relationship Specialty Start Date End Date Smith Orozco MD PCP - General Family Medicine 08/03/18 documented as of this encounter
--- OUTSIDE RECORDS SUMMARY | 2022-11-16 13:12 | External Medical Summary | Summary of Care ---
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 ([facility]); Encounter for monitoring diuretic therapy; Edema, unspecified type; Hypomagnesemia Allergies Active Allergy Reactions Severity Noted Date Comments Acetaminophen Renal complications 04/27/2009 Aspirin 08/13/2000 Stomach pain Cholestyramine 08/13/2000 Kidney pain Atorvastatin Calcium 04/28/2007 cramping Niacin Muscle pain 07/22/2007 Simvastatin Hives 08/13/2000 Ezetimibe 04/28/2007 Cramping ankles, turned feet inward documented as of this encounter (statuses as of 02/25/2021) Medications Medication Sig Dispensed Refills Start Date [...] MG/ML Subcutaneous Solution Auto-injector (Alirocumab)Indicati ons:Atherosclerosis of [place] coronary artery of [place] heart without angina pectoris,Dyslipidemi a, goal LDL below 70,Old [place] (myocardial infarction),Statin intolerance Inject 75 mg under [...] with goal blood pressure less than 140/90,Old [place] (myocardial infarction) Take 0.5 Tabs by mouth daily. 90 Tab 3 08/28/2020 Active Valsartan 320 MG Oral TabletIndications:At herosclerosis of [place] coronary artery of [place] heart without angina pectoris,Primary hypertension Take 1 [...] as of this encounter (statuses as of 02/25/2021) Active Problems Problem Noted Date Carpal tunnel [...] patient at prior appointment. Atherosclerosis of [place] co ronary artery of [place] heart without angina pectoris 11/30/2001 GENERAL OSTEOARTHROSIS Multiple pulmonary nodules Complex renal cyst Overview: 3.8 cm; L Old [place] (myocardial infarction) documented as of this encounter (statuses as of 02/25/2021) Resolved Problems Problem Noted Date Resolved Date Genomics Cardio Research Other*[id number] 201004/22/2016 Overview: Study Titile: Genomics Markers for Patients with Cardiovascular Disease Project # [id number] PI: Amalia Kingsley MD Please call [phone] with study related questions HTN, goal below [...] 01/24/2002 10/12/2015 Solar lentigo 10/27/2001 04/30/2016 ACUTE [place]; INFERIOR WALL;SUBSEQUENT EPISODE CARE 06/21/2013 HYPERTENSION NOS [...] as of this encounter (statuses as of 02/25/2021) Immunizations Name Administration Dates Next Due COVID-19 [...] Alcon Lott PA-C [address] [place] [address] 03/07/2021 NeuroDiagnostic Study Neurophysiology Marito Jacob DO [address] [place] [address] 04/29/2021 Office Visit Dermatology Kim Kong MD [address] [place] [address] 08/06/2021 Office Visit Family Medicine Smith Orozco MD [address] [place] [address] [place] [address] Pending Results Name Type Priority Associated Diagnoses Date /Time HEMOGLOBIN A1C Lab Routine Type 2 diabetes mellitus with hemoglobin A1c goal of less than 8.0% ([facility]) 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 ([facility]) 02/25/2021 9:44 AM EST ALBUMIN / CREATININE RATIO, URINE Lab Routine Type 2 diabetes mellitus with hemoglobin A1c goal of less than 8.0% ([facility]) 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 ([facility]) 02/25/2021 9:44 AM EST BASIC METABOLIC PANEL Lab Routine Encounter for monitoring diuretic therapy Edema, unspecified type 02/25/2021 9:44 AM EST MAGNESIUM Lab Routine Hypomagnesemia 02/25/2021 9:44 AM EST Health Maintenance Due Date Last Done Comments *DEPRESSION SCREENING,ANNUAL FOR PTS 12 AND OVER 02/20/2019 DIABETES-HGBA1C EVERY 6 MONTHS 12/28/2020 06/28/2020, 03/01/2020, 08/30/2019, Additional history exists DIABETES-FOOT EXAM 03/01/2021 03/01/2020, 1 03/26/2018, 02/18/2018, Additional history exists DIABETES-EYE EXAM 03/23/2021 03/23/2020, , 11/05/2017, Additional history exists Yearly B-12 07/12/2021 07/12/2020, 08/14, 08/19/2018, Additional history exists DTaP,Tdap,and Td Vaccines (2 [...] of this encounter Implants Implanted Type Area Shredded Filler Hopper Feeder Device Identifier Shelf Expiration Date Model / Serial / Lot Marker Coronary [facility] - [id number] Implanted:Qty: 1 on 12/26/2010 at OR [facility] N/A: Heart [employer] 10/13/2013 [facility] / / [id number] Sut Steel 6 M654g - [id number] Implanted:Qty: 5 on 12/26/2010 at OR [facility] Chest DO NOT USE 10/14/2015 M654G / / [id number] Band [facility] 225-828 - [id number] Implanted:Qty: 1 on 12/26/2010 at OR [facility] Chest [employer] 225-241 / / [id number] Lens Intraoc 17.5 - [id number] - [id number] Implanted:Qty: 1 on 02/07/2019 by Quincy Paiz MD at OR [facility] Right: Eye [employer] LOMB 08/14/2023 [id number] / [id number] / [id number] Lens Intraoc 17.0 - [id number] - [id number] Implanted:Qty: 1 on 03/01/2019 by Quincy Paiz MD at OR [facility] Left: Eye [employer] LOMB 09/12/2022 [id number] / [id number] / [id number] documented as of this encounter Visit Diagnoses Diagnosis Type 2 diabetes mellitus with hemoglobin A1c goal of less than 8.0% (HCC) 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 Care Teams Testing Tech Relationship Specialty Start Date End Date Smith Orozco MD PCP - General Family Medicine 08/03/18 documented as of this encounter
--- OUTSIDE RECORDS SUMMARY | 2022-11-16 13:12 | External Medical Summary ---
Author Name Unknown Address Unknown Organization K01:[facility] [place] [address] [place] [address] Laboratory Report Ordering Provider Test Date Status LOLIS BRADFORD 02/25/2021 09:44:58 Final Observation Date Value Abnormality Reference (Units ) Status HbA1C 02/25/2021 09:44:58 6.5 Above high normal 4. 0-5.6 (%) Final Performing Location [facility] - [address] [place] [address]
--- OUTSIDE RECORDS SUMMARY | 2022-11-16 13:12 | External Medical Summary | Summary of Care ---
Author Name Unknown Organization [place] [address] Care Team Providers Care Advertising Supervisor Name Role Phone Smith Danielle MD Primary Care Provider Reason for Visit * Reason Comments eRx-Medication Refill Encounter Details Date Type Department Care Team Description 02/21/2021 Refill Family Medicine [address] [place] [address] Lena Mckeon PA-C [address] [place] [address] [place] [address] Encounter for long-term (current) use of medications*; BPH with obstruction/lower urinary tract symptoms Allergies Active Allergy Reactions Severity Noted Date Comments Acetaminophen Renal complications 04/27/2009 Aspirin 08/13/2000 Stomach pain Cholestyramine 08/13/2000 Kidney pain Atorvastatin Calcium 04/28/2007 cramping Niacin Muscle pain 07/22/2007 Simvastatin Hives 08/13/2000 Ezetimibe 04/28/2007 Cramping ankles, turned feet inward documented as of this encounter (statuses as of 02/26/2021) Medications Medication Sig Dispensed Refills Start Date [...] A DAY 200 Strip 5 11/11/2019 Active ComHearTouch UltraSoft Lancets MISCIndications:T ype 2 diabetes mellitus [...] Subcutaneous Solution Auto-injector (Alirocumab)Indic ations:Atheroscle rosis of [place] coronary artery of [place] heart without angina pectoris,Dyslipid emia, goal LDL below 70,Old [place] (myocardial infarction),Stati n intolerance Inject 75 mg [...] with goal blood pressure less than 140/90,Old [place] (myocardial infarction) Take 0.5 Tabs by mouth daily. 90 Tab 3 08/28/2020 Active Valsartan 320 MG Oral TabletIndications :Atherosclerosis of [place] coronary artery of [place] heart without angina pectoris,Primary hypertension Take 1 [...] MOUTH EVERY DAY 90 Tab 1 08/27/2020 Discontinued documented as of this encounter (statuses as of 02/26/2021) Active Problems Problem Noted Date Carpal tunnel [...] to patient at prior appointment. Atherosclerosis of [place] co ronary artery of [place] heart without angina pectoris 11/30/2001 GENERAL OSTEOARTHROSIS Multiple pulmonary nodules Complex renal cyst Overview: 3.8 cm; L Old [place] (myocardial infarction) documented as of this encounter (statuses as of 02/26/2021) Resolved Problems Problem Noted Date Resolved Date Genomics Cardio Research Other*[id number] 201004/22/2016 Overview: Study Titile: Genomics Markers for Patients with Cardiovascular Disease Project # [id number] PI: Amalia Kingsley MD Please call [phone] with study related questions HTN, goal below [...] 01/24/2002 10/12/2015 Solar lentigo 10/27/2001 04/30/2016 ACUTE [place]; INFERIOR WALL;SUBSEQUENT EPISODE CARE 06/21/2013 HYPERTENSION NOS [...] as of this encounter (statuses as of 02/26/2021) Immunizations Name Administration Dates Next Due COVID-19 mRNA, LNP-s, No Pre serve, 2-Dose Series (BoostUp) 01/09/2021,06/08/2020,05/18/2020 Pneumococcal Conjugate Vacc, 13 Valent (Prevnar) [...] Thanks, Matthew Mena Pharm.D. Clinical Pharmacist Telepharmacy [phone] 02/21/2021, 1:57 PM documented in this encounter Plan of Treatment Upcoming Encounters Date Type Specialty Care Team Description 02/28/2021 Office Visit Cardiology Alcon Lott PA-C [address] [facility] [place] [address] 03/07/2021 NeuroDiagnostic Study Neurophysiology Marito Jacob, DO [address] [place] [address] 04/29/2021 Office Visit Dermatology Kim Kong MD [address] [place] [address] 08/06/2021 Office Visit Family Medicine Smith Danielle MD [address] [place] [address] [place] [address] Health Maintenance Due Date [...] of this encounter Implants Implanted Type Area Contact Manager Device Identifier Shelf Expiration Date Model / Serial / Lot Marker Coronary Amgm-Sd - [id number] [place]planted:Qty: 1 on [place] [facility] [place] Heart [employer] 10/13/2013 [facility]-[place] / / [id number] Sut Steel 6 M654g - [id number] Implanted:Qty: 5 on 12[place]/2010 [place] [facility] [place] Chest DO NOT USE 10/14/2015 M654G / / [id number] Alonso [place] 225-365 - [id number] Implanted:Qty: 1 on 12/26/2010 [place] [facility] [place] Chest [employer] 225-241 / / [id number] Lens Intraoc 17.5 - [id number] - [id number] Implanted:Qty: 1 on 02/07/2019 by Quincy Piaz MD at OR [facility] Right: Eye [employer] LOMB 08/14/2023 [id number] / [id number] / [id number] Lens Intraoc 17.0 - [id number] - [id number] Implanted:Qty: 1 on 03/01/2019 by Quincy Paiz MD at OR [facility] Left: Eye BAUSCH & LOMB 09/12/2022 [id number] / [id number] / [id number] documented as of this encounter Visit Diagnoses Diagnosis Encounter for long-term (current) use of medications- Primary Encounter for long-term (current) use of other medications BPH with obstruction/lower urinary tract symptoms Hypertrophy of prostate with urinary obstruction and other lower urinary tract symptoms (LUTS) documented in this encounter Advance Directives Documents on File Type Date Recorded Patient Global Compensation Director Expl 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 Care Teams Advertising Supervisor Relationship Specialty Start Date End Date Smith Danielle MD PCP - General Family Medicine 08/03/18 documented as of this encounter
--- OUTSIDE RECORDS SUMMARY | 2022-11-16 13:12 | External Medical Summary | Summary of Care ---
Author Name Unknown Organization [place] [address] Care Team Providers Care Paper Bag Making Machinist Name Role Phone Smith Orozco MD Primary Care Provider Reason for Visit * Reason Onset Date Comments FYI 02/26/2021 Encounter Details Date Type Department Care Team Description 02/26/2021 Telephone Family Medicine [address] [phone] Smith Orozco MD [address] [place], [place] [address] [address] FYI Allergies Active Allergy Reactions Severity Noted Date [...] MG/ML Subcutaneous Solution Auto-injector (Alirocumab)Indicati ons:Atherosclerosis of [place] coronary artery of [place] heart without angina pectoris,Dyslipidemi a, goal LDL below 70,Old [place] (myocardial infarction),Statin intolerance Inject 75 mg under [...] with goal blood pressure less than 140/90,Old [place] (myocardial infarction) Take 0.5 Tabs by mouth daily. 90 Tab 3 08/28/2020 Active Valsartan 320 MG Oral TabletIndications:At herosclerosis of [place] coronary artery of [place] heart without angina pectoris,Primary hypertension Take 1 [...] to patient at prior appointment. Atherosclerosis of [place] co ronary artery of [place] heart without angina pectoris 11/30/2001 GENERAL OSTEOARTHROSIS Multiple pulmonary nodules Complex renal cyst Overview: 3.8 cm; L Old [place] (myocardial infarction) documented as of this encounter (statuses as of 02/26/2021) Resolved Problems Problem Noted Date Resolved Date Genomics Cardio Research Other*[id number] 201004/22/2016 Overview: Study Titile: Genomics Markers for Patients with Cardiovascular Disease Project # [id number] PI: Amalia Kingsley MD Please call [phone] with study related questions HTN, goal below [...] 01/24/2002 10/12/2015 Solar lentigo 10/27/2001 04/30/2016 ACUTE [place]; INFERIOR WALL;SUBSEQUENT EPISODE CARE 06/21/2013 HYPERTENSION NOS [...] encounter Miscellaneous Notes * Telephone Encounter - Candy Daugherty RN - 02/26/2021 5:11 PM EST Order cancelled * Telephone Encounter - LIANA Hooper - 02/26/2021 1:04 PM EST Patient stopped in the office today and wanted to speak to delinquency prevention officer, she was not able to talkwith patient at that time. I was told to give patient the privacy number and have him call. I got this repose back "[12:58 PM] Betty Amin, I am reaching out from the Privacy office. Cl Reynolds just called our hotline regarding a concern of a lab order in his record. There is a future order for PSA that he wants removed as he has these completed at [facility] and his insurance will not pay for both [facility] and [facility] complete them. Our office would not be able to assist in this matter. Perhaps you can send a message to his current PCP to make him aware of the patient's request. We don't work on these on the clinical end so would not be able to assist in this matter. I apologize!" documented in this encounter Plan of Treatment Upcoming Encounters Date Type Specialty Care Team Description 02/28/2021 Office Visit Cardiology Alcon Lott PA-C [address] [facility] [place] [address] 03/07/2021 NeuroDiagnostic Study Neurophysiology Marito Jacob DO [address] [place] [address] 04/29/2021 Office Visit Dermatology Kim Kong MD [address] [place] [address] 08/06/2021 Office Visit Family Medicine Smith Orozco MD [address] [place] [address] [place] [address] Health Maintenance Due Date Last Done Comments [...] of this encounter Implants Implanted Type Area It Support Engineer Device Identifier Shelf Expiration Date Model / Serial / Lot Marker Coronary [facility]-Sd - [id number] Implanted:Qty: 1 on 12/26/2010 at [place] [facility] [place] N/A: Heart [employer] 10/13/2013 AM-SD / / [id number] Sut Steel 6 M654g - [id number] Implanted:Qty: 5 on 12/26/2010 at [place] [facility] [place] Chest DO NOT USE 10/14/2015 M654G / / [id number] Band Ankur 225-963 - [id number] Implanted:Qty: 1 on 12/26/2010 at [place] [facility] [place] Chest [employer] 225-429 / / [id number] Lens Intraoc 17.5 - [id number] - [id number] Implanted:Qty: 1 on 02/07/2019 by Quincy Paiz MD at OR [facility] Right: Eye [employer]USCH [employer] LOMB 08/14/2023 [id number] / [id number] / [id number] Lens Intraoc 17.0 - [id number] - [id number] Implanted:Qty: 1 on 03/01/2019 by Quincy Paiz MD at OR [facility] Left: Eye [employer]CH [employer] LOMB 09/12/2022 [id number] / [id number] / [id number] documented as of this encounter Advance Directives Documents on File Type Date Recorded Patient Food Processing Scientist Expl 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 Care Teams Paper Bag Making Machinist Relationship Specialty Start Date End Date Smith Orozco MD PCP - General Family Medicine 08/03/18 documented as of this encounter
--- OUTSIDE RECORDS SUMMARY | 2022-11-16 13:12 | External Medical Summary ---
Author Name Unknown Address Unknown Organization K01:[facility] [place] - [address] [place] [address] Laboratory Report Ordering Provider Test Date Status VITOR BRANDT 02/25/2021 09:44:58 Final Observation Date Value Abnormality Reference (Units ) Status BUN 02/25/2021 09:44:58 19 6-20 (mg/dL) Final Creatinine 02/25/2021 09:44:58 1.0 0.6-1.2 (mg/dL) Final Glomerular filtration rate/1.73 sq M.predicted [Volume Rate/Area] in Serum, Plasma or Blood by Creatinine-based formula (CKD-EPI) 02/25/2021 09:44:58 69 >=60 (mL/min) Final Performing Location [facility] [place] - [address] [place] [address]
--- OUTSIDE RECORDS SUMMARY | 2022-11-16 13:12 | External Medical Summary | Summary of Care ---
Author Name Unknown Organization [place] [address] Care Team Providers Care Subway Repair Supervisor Name Role Phone Smith Orozco MD Primary Care Provider Reason for Visit * Reason Comments EMG Encounter Details Date Type Department Care Team Description 03/07/2021 NeuroDiagnostic Study Neurophysiology Imelda Tran Ralph [address] [facility] [place] [address] Marito Jacob, DO [address] [place] [address] Arrived Allergies Active Allergy Reactions Severity Noted Date Comments Acetaminophen Renal complications 04/27/2009 Aspirin 08/13/2000 Stomach pain Cholestyramine 08/13/2000 Kidney pain Atorvastatin Calcium 04/28/2007 cramping Niacin Muscle pain 07/22/2007 Simvastatin Hives 08/13/2000 Ezetimibe 04/28/2007 Cramping ankles, turned feet inward documented as of this encounter (statuses as of 03/07/2021) Medications Medication Sig Dispensed Refills Start Date [...] MG/ML Subcutaneous Solution Auto-injector (Alirocumab)Indicati ons:Atherosclerosis of [place] coronary artery of [place] heart without angina pectoris,Dyslipidemi a, goal LDL below 70,Old [place] (myocardial infarction),Statin intolerance Inject 75 mg under [...] less than 140/90,Old [place] (myocardial infarction) Take 0.5 Tabs by mouth [...] 320 MG Oral Tablet (Diovan)Indications: Atherosclerosis of [place] coronary artery of [place] heart without angina pectoris,Primary hypertension Take 0.5 Tablets by mouth 2 times a day. 90 Tablet 1 02/28/2021 Active documented as of this encounter (statuses as of 03/07/2021) Active Problems Problem Noted Date Carpal tunnel [...] to patient at prior appointment. Atherosclerosis of [place] co ronary artery of [place] heart without angina pectoris 11/30/2001 GENERAL OSTEOARTHROSIS Multiple pulmonary nodules Complex renal cyst Overview: 3.8 cm; L Old [place] (myocardial infarction) documented as of this encounter (statuses as of 03/07/2021) Resolved Problems Problem Noted Date Resolved Date Genomics Cardio Research Other*[id number] 201004/22/2016 Overview: Study Titile: Genomics Markers for Patients with Cardiovascular Disease Project # [id number] PI: Amalia Kingsley MD Please call [phone] with study related questions HTN, goal below [...] as of this encounter (statuses as of 03/07/2021) Immunizations Name Administration Dates Next Due COVID-19 [...] as of this encounter Progress Notes * Marito Sahniley Nidia, DO - 03/07/2021 11:36 AM EST [facility] Electromyography Report Name: Cl Reynolds Date of : 1940 (80 year old) Sex: male Tech: Miladis Schofield-Ray Referring Physician: Smith Orozco MD Examining Physician: Marito Jacob DO Examination Date: 03/07/2021 Ht Readings from Last 1 Encounters: 03/01/20 1.651 m (5' 5") Wt Readings from Last 1 Encounters: 02/28/21 64.4 kg (141 lb 14.4 oz) Impression: Abnormal study. This electrodiagnostic study is most consistent with followin. Severe left median neuropathy at the wrist (carpal tunnel syndrome). 2. Moderate to severe right median neuropathy at the wrist (carpal tunnel syndrome). 3. 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 4. Chronic left C7 radiculopathy. History and Physical examination: An 80-year-old male referred for evaluation of numbness in both hands. He is right-handed. Symptoms are worse in the left hand. He does have history of type 2 diabetes. Examination demonstrates thenar muscle atrophy. EMG/NCS performed for evaluation of median neuropathy. Nerve Conduction Studies Examination Findings: Nerve conduction studies were performed in the bilateral upper extremities. The left median sensorynerve response was absent. The right median sensory nerve study showed a prolonged peak latency, reduced amplitude, and slow conduction velocity. The bilateral ulnar sensory nerve study showed prolonged peak latencies, normal amplitudes, and slow conduction velocities. The radial sensory nerve study showed a normal peak latency, reduced amplitude, normal conduction velocity. The left median motornerve study showed a prolonged distal latency, normal amplitude, slow conduction velocity. The right median motor nerve study showed a prolonged distal latency, normal amplitude, slow conduction velocity. The left ulnar motor nerve study showed a normal distal latency, normal amplitude, and slow conduction velocity across the elbow. The right ulnar motor nerve study showed a normal distal latency, normal amplitude, and normal conduction velocity. Please see the attached document for raw data or the scanned document in EPIC. Reference values are from the [facility] normative data guidelines that are attached at the end ofthis document. Electromyography Examination Findings: Needle examination was performed with a disposable concentric needle electrode in selected muscles of the left upper extremity, as recorded in the tables. No abnormal spontaenous activity was seen. The abductor pollicis brevis and triceps brachii muscles demonstrated normal to mildly increased sizeand mildly reduced recruitment. The motor unit action potentials in the other muscles tested demonstrated normal size, duration, and recruitment. Please see the attached document for raw data or the scanned document in EPIC. The study was done with a concentric needle examination. Marito Jacob DO documented in this encounter Plan of Treatment Upcoming Encounters Date Type Specialty Care Team Description 04/29/2021 Office Visit Dermatology Kim Kong MD [address] [place], [place] [address] [address] 08/06/2021 Office Visit Family Medicine Smith Orozco MD [address] [place] [address] [place] [address] 08/15/2021 Office Visit Cardiology Alcon Lott PA-C [address] [facility] [place] [address] Health Maintenance Due Date Last Done Comments [...] of this encounter Implants Implanted Type Area E Tailer Device Identifier Shelf Expiration Date Model / Serial / Lot Marker Coronary [facility]-Sd - [id number] Implanted:Qty: 1 on [place] [facility] [place]: Heart [employer] 10/13/2013 [facility] / / [id number] Sut Steel 6 M654g - [id number] Implanted:Qty: 5 on 12/26/2010 [place] [facility] Chest DO NOT USE 10/14/2015 M654G / / [id number] Band [facility] 225-241 - [id number] Implanted:Qty: 1 on 12/26/2010 [place] [facility] [employer] 225-241 / / [id number] Lens Intraoc 17.5 - [id number] - [id number] Implanted:Qty: 1 on 02/07/2019 by Quincy Paiz MD at OR [facility] Right: Eye [employer] LOMB 08/14/2023 [id number] / [id number] / [id number] Lens Intraoc 17.0 - [id number] - [id number] Implanted:Qty: 1 on 03/01/2019 by Quincy Paiz MD at OR [facility] Left: Eye BAUSCH & LOMB 09/12/2022 [id number] / [id number] / [id number] documented as of this encounter Visit Diagnoses Diagnosis Numbness and tingling in both hands- Primary documented in this encounter Advance Directives Documents on File Type Date Recorded Patient Bus Starter Expl 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 Care Teams Subway Repair Supervisor Relationship Specialty Start Date End Date Smith Orozco MD PCP - General Family Medicine 08/03/18 documented as of this encounter
--- OUTSIDE RECORDS SUMMARY | 2022-11-16 13:12 | External Medical Summary | Summary of Care ---
Author Name Unknown Organization [place] [address] Care Team Providers Care Sap Portal Developer Name Role Phone Smith Orozco MD Primary Care Provider Reason for Visit * Reason Comments Follow Up 6 month follow up. 1 04/16/20 blood pressure was low- 92/52 2 hours after- during that time soft stool, throwing up, sweating and weren't feeling well. No episodes since. Encounter Details Date Type Department Care Team Description 02/28/2021 Office Visit Cardiology [address] [place] [id number] Alcon Lott PA-C [address] [facility] [place] [address] Edema, unspecified type*; HTN, goal below 130/80; Old [place] (myocardial infarction); Statin intolerance; Atherosclerosis of [place] coronary artery of [place] heart without angina pectoris; Dyslipidemia, goal LDL below 70; Ischemic cardiomyopathy; Nonrheumatic aortic valve stenosis; Primary hypertension Allergies Active Allergy Reactions Severity [...] WITH PONDS 45 g 5 03/28/2019 Active OctavianTOUCH ULTRA STRPIndications:T ype 2 diabetes mellitus with hemoglobin A1c goal of less than 8.0% (HCC) USE ONE TEST STRIP TO TEST BLOOD SUGAR LEVELS TWICE A DAY 200 Strip 5 11/11/2019 Active Ping4Touch UltraSoft Lancets MISCIndications:T ype 2 diabetes mellitus [...] Subcutaneous Solution Auto-injector (Alirocumab)Indic ations:Atheroscle rosis of [place] coronary artery of [place] heart without angina pectoris,Dyslipid emia, goal LDL below 70,Old [place] (myocardial infarction),Stati n intolerance Inject 75 mg [...] with goal blood pressure less than 140/90,Old [place] (myocardial infarction) Take 0.5 Tabs by mouth [...] MG Oral Tablet (Diovan)Indicatio ns:Atherosclerosi s of [place] coronary artery of [place] heart without angina pectoris,Primary hypertension Take 0.5 Tablets by mouth 2 times a day. 90 Tablet 1 02/28/2021 Active Valsartan 320 MG Oral TabletIndications :Atherosclerosis of [place] coronary artery of [place] heart without angina pectoris,Primary hypertension Take 1 [...] to patient at prior appointment. Atherosclerosis of [place] co ronary artery of [place] heart without angina pectoris 11/30/2001 GENERAL OSTEOARTHROSIS Multiple pulmonary nodules Complex renal cyst Overview: 3.8 cm; L Old [place] (myocardial infarction) documented as of this encounter (statuses as of 02/28/2021) Resolved Problems Problem Noted Date Resolved Date Genomics Cardio Research Other*[id number] 201004/22/2016 Overview: Study Titile: Genomics Markers for Patients with Cardiovascular Disease Project # [id number] PI: Amalia Kingsley MD Please call [phone] with study related questions HTN, goal below [...] 01/24/2002 10/12/2015 Solar lentigo 10/27/2001 04/30/2016 ACUTE W[place]; INFERIOR WALL;SUBSEQUENT EPISODE CARE 06/21/2013 HYPERTENSION NOS [...] mRNA, LNP-s, No Pre serve, 2-Dose Series (SourceNinja) 01/09/2021,06/08/2020,05/18/2020 Pneumococcal Conjugate Vacc, 13 Valent (Prevnar) [...] Sign Reading Time Taken Comments Blood Pressure 128/74 02/28/2021 8:51 AM EST Pulse 72 02/28/2021 8:51 AM EST Temperature 36 C (96.8 F) 02/28/2021 8:51 AM EST Respiratory Rate 15 02/28/2021 8:51 AM EST Oxygen Saturation - - Inhaled Oxygen Concentration - - Weight 64.4 kg (141 lb 14.4 oz) 02/28/2021 8:51 AM EST Height - - Body Mass Index 23.61 03/01/2020 2:27 PM EST documented in this encounter Progress Notes * Alcon Lott PA-C - 02/28/2021 9:00 AM EST History of Present Illness: Mr. Reynolds is a very pleasant 80 year old male who returns today for cardiology follow-up evaluation. Labile BP's on home monitoring. High upon waking around 5:30 AM, hypotensive around 7-8 AM and mild to moderately elevated throughout the day and evening. No angina. No palpitations. No unusual shortness of breath. Peripheral edema has improved. No orthopnea or PND. No syncope. No melena or hematochezia. Patient Active Problem List Diagnosis Code GENERAL OSTEOARTHROSIS M15.9 Atherosclerosis of [place] coronary artery of [place] heart without angina pectoris I25.10 ADVANCE DIRECTIVE [...] and hypertension (HCC) E11.22, I12.9, N18.2 Old [place] (myocardial infarction) I25.2 Nonrheumatic aortic valve stenosis I35.0 Edema R60.9 Carpal tunnel syndrome, bilateral G56.03 Past Surgical History: Inguinal hernia. CABG Social History: From [place]. Lives in [place] with his . Reformed smoker. 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 Complete Review of Systems is as stated [...] TBEC Take by mouth. Indications: pmonday, day sandra MULTI-VITAMIN PO TABS one pill each day [...] 2 times a day. 90 Tablet 1 GAVI 180 MG PO TABS One pill by mouth once a day for allergies (Patient taking differently: Take by mouth. Indications: as needed) 30 5 No current facility-administered medications for this visit. PHYSICAL EXAMINATION BP 128/74 | Pulse 72 | Temp 36 C (96.8 F) | Resp 15 | Wt 64.4 kg (141 lb 14.4 oz) | BMI 23.61 kg/m | BSA 1.72 m | BP on my examination was 110/62 via the right arm General: A&Ox3. NAD. HENT: Normocephalic. Atraumatic. Eyes: PER. Conjunctiva pink, sclera clear. Neck: Bilateral carotid bruits. No JVD. No HJR. Heart: Irregular with occasional ectopic beat. Heart rate at 60 bpm. Grade II/ systolic ejection murmur. No rub. No gallop. PMI is nondisplaced. Lungs: Clear to auscultation. Abdomen: +BS. No abdominal bruits. Soft. Nontender. No masses or organomegaly. Extremities: Mild pretibial edema. No clubbing. No cyanosis. Limited [...] present. Mild mitral regurgitation. Mild tricuspid regurgitation Component 02/25/2021 BUN 19 Creatinine 1.0 Estimated Glomerular Filtration Rate 69 Sodium 139 Potassium 4.4 Chloride 101 CO2 28 Anion Gap 10 Glucose 114 Calcium 9.8 Magnesium 2.1 ASSESSMENT: 1. Labile hypertension. 2. ASCVD 1. Prior inferior WV in 1994 managed at [facility]. 2. Catheterization in 2010 following abnormal nuclear [...] obtuse marginal. 4. Ischemic cardiomyopathy, LVEF 40-44%. 3. Mixed valve disease, aortic stenosis and insufficiency, mitral regurgitation. 4. Bradycardia. Beta-layne intolerance. 5. Palpitations in association with sensed ectopy. 6. Dyslipidemia. Documented statin intolerance and Zetia. 7. Carotid artery disease. History of prior TIA with transient leg weakness. January 2019 Carotid Duplex with 50 to 69% CRISTI stenosis, mild (<50%) LICA. 8. Type II diabetes mellitus. Followed by PCP. 9. BPH 10. Mild peripheral edema. Options of management discussed with patient. Plan as outlined below. RECOMMENDATIONS/PLAN: Increase isosorbide mononitrate back to 60 mg/day in the morning. Change valsartan from 320 mg in the morning to 160 mg twice per day. Carotid duplex and resting echocardiography to be arranged at next evaluation. Routine cardiology follow-up in 6 months time or as needed. ER with emergencies. Alcon Lott PA-C Department of Cardiology This chart was completed in part utilizing MyEveTab Speech Voice Recognition Software. Grammatical errors, random [...] Notes * Juan M Addison LPN - 02/28/2021 8:50 AM EST Patient identified by full name and date of Chief Complaint Patient presents with Follow Up 6 month follow up. 02/13/21 blood pressure was low- 92/52 2 hours after- during that time soft stool, throwing up, sweating and weren't feeling well. No episodes since. Examination Room: 3 Name: Cl Reynolds Date of : (1940). Reason for Visit: 6 month follow up Interim Hospitalization(s): Denies Problems/Concerns: See chief complaint Chest Pain/SOB: See chief complaint [facility] Discussed: Not applicable [...] Team Description 03/07/2021 NeuroDiagnostic Study Neurophysiology Marito Jacob, DO [address] [facility] [place] [address] 04/29/2021 Office Visit Dermatology Kim Kong MD [address] [place] [address] 08/06/2021 Office Visit Family Medicine Smith Orozco MD [address] [place] [address] [place] [address] 08/15/2021 Office Visit Cardiology Alcon Lott PADannyC [address] [facility] [place] [address] Health Maintenance Due Date Last Done Comments [...] of this encounter Implants Implanted Type Area Quality Review Specialist Device Identifier Shelf Expiration Date Model / Serial / Lot Marker Coronary Amgm-Sd - [id number] [place] 1 [place] [facility] [place] Heart [employer] 10/13/2013 [facility] / / [id number] Sut Steel 6 M654g - [id number] Implanted:Qty: 5 on 12[place]26[place]2010 [place] [facility] [place] Chest DO NOT USE 10/14/2015 M654G / / [id number] Band Ankur 225-907 - [id number] Implanted:Qty: 1 on 12/26/2010 [place] [facility] [place] Chest [employer] 225-241 / / [id number] Lens Intraoc 17.5 - [id number] - [id number] Implanted:Qty: 1 on 02/07/2019 by Quincy Paiz MD at OR [facility] Right: Eye [employer]OM[employer] 08/14/2023 [id number] / [id number] / [id number] Lens Intraoc 17.0 - [id number] - [id number] Implanted:Qty: 1 on 03/01/2019 by Quincy Paiz MD at OR [facility] Left: Eye BA[employer]CH [employer] LOMB 09/12/2022 [id number] / [id number] / [id number] documented as of this encounter Visit Diagnoses Diagnosis Edema, unspecified type- Primary HTN, goal below 130/80 Unspecified essential hypertension Old [place] (myocardial infarction) Old myocardial infarction Statin intolerance Other drug allergy Atherosclerosis of [place] coronary artery of [place] heart without angina pectoris Dyslipidemia, goal LDL below 70 Other and unspecified hyperlipidemia Ischemic cardiomyopathy Other specified forms of chronic ischemic heart disease Nonrheumatic aortic valve stenosis Aortic valve disorders Primary hypertension Unspecified essential hypertension documented in this encounter Advance Directives Documents on File Type Date Recorded Patient Hand Icer Expl 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 Care Teams Sap Portal Developer Relationship Specialty Start Date End Date Smith Orozco MD PCP - General Family Medicine 08/03/18 documented as of this encounter"
--- OUTSIDE RECORDS SUMMARY | 2022-11-16 13:12 | External Medical Summary ---
Author Name Unknown Address Unknown Organization K01:[facility] [place] [address] [place] [address] Laboratory Report Ordering Provider Test Date Status LOLIS BRADFORD 02/25/2021 09:44:58 Final Observation Date Value Abnormality Reference (Units ) Status Albumin, Urine 02/25/2021 09:44:58 23.83 (mg/dL) Final Creatinine, Urine 02/25/2021 09:44:58 51 (mg/dL) Final Albumin/Creatinine [Mass Ratio] in Urine 02/25/2021 09:44:58 467 Above high normal <30 (mg/g Creat) Final Performing Location [facility] [place] - [address] [place] [address]
--- OUTSIDE RECORDS SUMMARY | 2022-11-16 13:13 | External Medical Summary | Summary of Care ---
Author Name Unknown Organization [place] [address] Care Team Providers Care Check Inspector Name Role Phone Smith Danielle MD Primary Care Provider Reason for Visit * Reason Onset Date Comments Medication Refill 01/05/2021 Encounter Details Date Type Department Care Team Description 01/05/2021 Refill Family Medicine [address] [id number] Pierre Nath MD [address] [place] [address] [place] [address] PEPTIC ULCER NOS Allergies Active Allergy Reactions Severity Noted Date Comments Acetaminophen Renal complications 04/27/2009 Aspirin 08/13/2000 Stomach pain Cholestyramine 08/13/2000 Kidney pain Atorvastatin Calcium 04/28/2007 cramping Niacin Muscle pain 07/22/2007 Simvastatin Hives 08/13/2000 Ezetimibe 04/28/2007 Cramping ankles, turned feet inward documented as of this encounter (statuses as of 01/07/2021) Medications Medication Sig Dispensed Refills Start Date [...] TBECIndications:pm , thursday Take by mouth. Indications: pmonday, thursday 0 Active MULTI-VITAMIN PO TABS one pill each day 0 Active tretinoin (RETIN-A) 0.05 % creamIndications:A ctinic keratosis APPLY NIGHTLY TO FACE DIRECTED,CAN MIX WITH PONDS 45 g 5 03/28/2019 Active ONETOUCH ULTRA STRPIndications:Ty pe 2 diabetes mellitus with hemoglobin A1c goal of less than 8.0% ([facility]) USE ONE TEST STRIP TO TEST BLOOD SUGAR LEVELS TWICE A DAY 200 Strip 5 11/11/2019 Active OneTouch UltraSoft Lancets MISCIndications:Ty pe 2 diabetes mellitus with hemoglobin A1c goal of less than 8.0% ([facility]) USE ONE LANCET TO TEST BLOOD SUGAR LEVELS TWICE A DAY 200 Each 3 11/15/2019 Active Isosorbide Mononitrate ER 60 MG Oral Tablet Extended Release 24 Hour (Imdur) Take 1 Tab by mouth daily. In the morning 90 Tab 3 05/03/2020 Active Praluent 75 MG/ML Subcutaneous Solution Auto-injector (Alirocumab)Indica tions:Atherosclero sis of [place] coronary artery of [place] heart without angina pectoris,Dyslipide yasmin, goal LDL below 70,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),Statin intolerance Inject 75 mg under the skin every 14 days. 3 mL 3 07/12/2020 Active glipiZIDE ER 10 MG Oral Tablet Extended Release 24 Hour (Glucotrol XL)Indications:Typ e 2 diabetes mellitus with hemoglobin A1c goal of less than 8.0% ([facility]) TAKE 1 TABLET BY MOUTH TWICE A DAY 180 Tab 1 08/09/2020 Active Additional Information Patient not taking. Reported on 12/18/2020 Finasteride 5 MG Oral Tablet (Proscar)Indicatio ns:BPH with obstruction/lower urinary tract symptoms TAKE 1 TABLET BY MOUTH EVERY DAY 90 Tab 1 08/27/2020 Active Jardiance 25 MG Oral Tablet Take 1 Tab by mouth daily. 0 08/06/2020 Active amLODIPine Besylate 5 MG Oral Tablet (Norvasc)Indicatio ns:Essential hypertension with goal blood pressure less than 140/90,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) Take 0.5 Tabs by mouth daily. 90 Tab 3 08/28/2020 Active Valsartan 320 MG Oral TabletIndications: Atherosclerosis of [place] coronary artery of [place] heart without angina pectoris,Primary hypertension Take 1 [...] UNIT/ML Subcutaneous Solution Pen-injector (Insulin Glargine) Inject 9 Units under the skin daily. 1 Each [...] EVERY DAY 90 Tab 3 12/17/2020 Active hydrALAZINE HCl 25 MG Oral Tablet (Apresoline) Take 0.5 Tabs by mouth 2 times a day. 31 Tab 5 01/03/2021 Active Omeprazole 20 MG Oral Capsule Delayed Release (PriLOSEC)Indicati ons:Peptic ulcer Take 1 Cap by mouth daily. 90 Cap 1 01/07/2021 Active Omeprazole 20 MG Oral Capsule Delayed Release (PriLOSEC)Indicati ons:Peptic ulcer TAKE 1 CAPSULE BY MOUTH EVERY DAY 90 Cap 1 07/08/2020 Discontinue d(Refill) documented as of this encounter (statuses as of 01/07/2021) Active Problems Problem Noted Date Nonrheumatic aortic valve stenosis 12/18 Edema 12/18/2020 [...] to patient at prior appointment. Atherosclerosis of [place] co ronary artery of [place] heart without angina pectoris 11/30/2001 GENERAL OSTEOARTHROSIS Multiple pulmonary nodules Complex renal cyst Overview: 3.8 cm; L 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) documented as of this encounter (statuses as of 01/07/2021) Resolved Problems Problem Noted Date Resolved Date Genomics Cardio Research Other*[id number] 201004/22/2016 Overview: Study Titile: Genomics Markers for Patients with Cardiovascular Disease Project # [id number] PI: Amalia Kingsley MD Please call [phone] with study related questions HTN, goal below [...] as of this encounter (statuses as of 01/07/2021) Immunizations Name Administration Dates Next Due COVID-19 mRNA, LNP-s, No Pre serve, 2-Dose Series (SoBiz10) 06/08/2020,05/18/2020 Pneumococcal Conjugate Vacc, 13 Valent (Prevnar) 10/16/2015 [...] Never Used Comments:quit in 1971 Alcohol Use Drinks/Week oz/Week Comments Not Currently Sex Assigned at Date Recorded Not on file Job Start Date Occupation Industry Not on file Not on file Not on file documented as of this encounter Miscellaneous Notes * Telephone Encounter - Smith Danielle MD - 01/07/2021 12:00 PM EDT Signed Prescriptions: Disp Refills Omeprazole 20 MG Oral Capsule Delayed Rele*90 Cap 1 Sig: Take 1 Cap by mouth daily. Authorizing Provider: SMITH DANIELLE * Telephone Encounter - Jacqueline Mccarthy LPN - 01/07/2021 11:31 AM EDT Pending Prescriptions: Disp Refills Omeprazole 20 MG Oral Capsule Delayed Rel*90 Cap 1 Sig: Take 1 Cap by mouth daily. * Telephone Encounter - Jacqueline Mccarthy LPN - 01/07/2021 11:31 AM EDT Pending Prescriptions: Disp Refills Omeprazole 20 MG Oral Capsule Delayed Rel*90 Cap 1 Sig: Take 1 Cap by mouth daily. Last Office/Telemedicine Visit: 08/20/2020 02/05/2021 Last date the medication was ordered: 07/08/2020 Patient Active Problem List Diagnosis Code GENERAL OSTEOARTHROSIS M15.9 Atherosclerosis of [place] coronary artery of [place] heart without angina pectoris I25.10 ADVANCE DIRECTIVE INFORMATION Type 2 diabetes mellitus with hemoglobin A1c goal of less than 8.0% ([facility]) E11.9 DYSLIPIDEMIA, GOAL LDL BELOW 70 E78.5 BPH with obstruction/lower urinary tract symptoms N40.1, N13.8 Primary hypertension I10 Statin intolerance Z78.9 Multiple pulmonary nodules R91.8 Ischemic cardiomyopathy I25.5 Complex renal cyst N28.1 Hx of actinic keratosis Z87.2 Type 2 diabetes mellitus with stage 2 chronic kidney disease, without long- term current use of insulin ([facility]) E11.22, N18.2 Hx of nonmelanoma skin cancer Z85.828 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) E11.22, I12.9, N18.2 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) I25.2 Nonrheumatic aortic valve stenosis I35.0 Edema R60.9 Labs: Lab Results Component Value Date/Time CREATININE 1.0 01/25/1996 10:05 AM CREATININE - [facility] 1.0 07/12/2020 09:54 AM CREATININE - [facility] 1.0 03/01/2020 02:51 PM CREATININE, RANDOM URINE - [facility] 36 03/01/2020 02:51 PM CREATININE-OUTSIDE LAB 1.00 12/01/2016 Lab Results Component Value Date/Time POTASSIUM 4.8 01/25/1996 10:05 AM POTASSIUM - [facility] 4.4 07/12/2020 09:54 AM POTASSIUM - [facility] 4.4 03/01/2020 02:51 [...] 02/02/1996 09:10 AM HEMOGLOBIN A1C - [facility] 7.6 (H) 06/28/2020 11:20 AM HEMOGLOBIN A1C - [facility] 7.5 (H) 03/01/2020 02:51 PM HEMOGLOBIN A1C - [facility] 7.3 (H) 08/30/2019 08:34 AM HEMOGLOBIN A1C - [facility] 7.3 (H) 03/31/2019 08:26 AM documented in this encounter Plan of Treatment Upcoming Encounters Date Type Specialty Care Team Description 02/05/2021 Office Visit Family Medicine Smith Danielle MD [address] [place] [address] [place] [address] [phone] 02/28/2021 Office Visit Cardiology Alcon Lott PA-C [address] [facility] [place] [address] [phone] 04/29/2021 Office Visit Dermatology Kim Kong MD [address] [place], [place] [address] [address] [phone] Health Maintenance Due Date Last Done Comments *DEPRESSION SCREENING,ANNUAL FOR PTS 12 AND OVER 02/20/2019 COVID-19 Vaccine (3 - Pfizer booster) 12/09/2020 06/08/2020, 05/18/2020 DIABETES-HGBA1C EVERY 6 MONTHS 12/28/2020 06/28/2020, 03/01/2020, 08/30/2019, Additional history exists DIABETES-FOOT EXAM 03/01/2021 03/01/2020, 1 03/26/2018, 02/18/2018, Additional history exists DIABETES-EYE EXAM 03/23/2021 03/23/2020, , 11/05/2017, Additional history exists Yearly B-12 07/12/2021 07/12/2020, 08/14, 08/19/2018, Additional history exists DTaP,Tdap,and Td Vaccines (2 - Td) 08/05/2022 08/05/2012, 03/16/2003 Pneumococcal Vaccine: 65+ Years Completed 10/16/2015, 12/15/2006, 04/01/2002 Zoster Vaccines Completed 05/25/2019, 09/2019, 11/15/2011 Influenza Vaccine (FLU shot) Completed , 11/22/2019, 11/22/2018, Additional history exists MENINGOCOCCAL (MENACTRA/MENVEO) Aged Out No longer eligible based on patient's age to complete this topic documented as of this encounter Implants Implanted Type Area Regulatory Compliance Manager Device Identifier Shelf Expiration Date Model / Serial / Lot Marker Coronary [facility]-Sd - [id number] Implanted:Qty: 1 on 12/26/2010 at [place] [facility] [place] N/A: Heart [employer] 10/13/2013 [facility] / / [id number] Sut Steel 6 M654g - [id number] Implanted:Qty: 5 on 12/26/2010 at [place] [facility] [place] Chest DO NOT USE 10/14/2015 M654G / / [id number] [facility] 225-241 - [id number] Implanted:Qty: 1 on 12/26/2010 at OR [facility] [place] Chest [employer] 225-241 / / [id number] Lens Intraoc 17.5 - [id number] - [id number] Implanted:Qty: 1 on 02/07/2019 by Quincy Paiz MD at OR [facility] Right: Eye [employer] 08/14/2023 [id number] / [id number] / [id number] Lens Intraoc 17.0 - [id number] - [id number] Implanted:Qty: 1 on 03/01/2019 by Quincy Paiz MD at OR [facility] Left: Eye [employer]OMB 09/12/2022 [id number] / [id number] / [id number] documented as of this encounter Visit Diagnoses Diagnosis PEPTIC ULCER NOS Peptic ulcer, unspecified site, unspecified as acute or chronic, without mention of hemorrhage, perforation, or obstruction documented in this encounter Advance Directives Documents on File Type Date Recorded Patient Talent Engineer Expl anation Advanced Directive Advanced Directive Advanced Directive 12/02/2010 12:00 AM Advanced Directive 12/03/2010 12:00 AM Advanced Directive 12/24/2010 12:00 AM Advanced Directive Advanced Directive Advanced Directive Advanced [...] Directive Advanced Directive Advanced Directive Advanced Directive Latest Code Status on File Code Status Date Activated Date Inactivated Comments Full Code 12/26/2010 11:49 AM 12/30/2010 3:24 PM Th is order reflects the patients wishes and were consensually agreed upon.
--- OUTSIDE RECORDS SUMMARY | 2022-11-16 13:13 | External Medical Summary | Summary of Care ---
Author Name Unknown Organization [facility] Address [place] [address] Care Team Providers Care Best Second Jobs Name Role Phone Smith Orozco MD Primary Care Provider Reason for Visit * Reason Comments eRx-Medication Refill Encounter Details Date Type Department Care Team Description 12/16/2020 Refill Cardiology, [facility] [address] [place] [address] Anson Banegas DO [address] [place] [address] [phone] Allergies Active Allergy Reactions Severity Noted Date Comments Acetaminophen Renal complications 04/27/2009 Aspirin 08/13/2000 Stomach pain Cholestyramine 08/13/2000 Kidney pain Atorvastatin Calcium 04/28/2007 cramping Niacin Muscle pain 07/22/2007 Simvastatin Hives 08/13/2000 Ezetimibe 04/28/2007 Cramping ankles, turned feet inward documented as of this encounter (statuses as of 12/17/2020) Medications Medication Sig Dispensed Refills Start Date [...] ([facility]) USE ONE LANCET TO TEST BLOOD SUGAR LEVELS TWICE A DAY 200 Each 3 11/15/2019 Active Isosorbide Mononitrate ER 60 MG Oral Tablet Extended Release 24 Hour (Imdur) Take 1 Tab by mouth daily. In the morning 90 Tab 3 05/03/2020 Active Omeprazole 20 MG Oral Capsule Delayed Release (PriLOSEC)Indicat ions:Peptic ulcer TAKE 1 CAPSULE BY MOUTH EVERY DAY 90 Cap 1 07/08/2020 Active Praluent 75 MG/ML Subcutaneous Solution Auto-injector (Alirocumab)Indic ations:Atheroscle rosis of [place] coronary artery of [place] heart without angina pectoris,Dyslipid emia, goal LDL below 70,[place] (myocardial infarction),Stati n intolerance Inject 75 mg under the skin every 14 days. 3 mL 3 07/12/2020 Active glipiZIDE ER 10 MG Oral Tablet Extended Release 24 Hour (Glucotrol XL)Indications:Ty pe 2 diabetes mellitus with hemoglobin A1c goal of less than 8.0% ([facility]) TAKE 1 TABLET BY MOUTH TWICE A DAY 180 Tab 1 08/09/2020 Active Finasteride 5 MG Oral Tablet (Proscar)Indicati ons:BPH with obstruction/lower urinary tract symptoms TAKE 1 TABLET BY MOUTH EVERY DAY 90 Tab 1 08/27/2020 Active Jardiance 25 MG Oral Tablet Take 1 Tab by mouth daily. 0 08/06/2020 Active amLODIPine Besylate 5 MG Oral Tablet (Norvasc)Indicati ons:Essential hypertension with goal blood pressure less than 140/90,[place] (myocardial infarction) Take 0.5 Tabs by mouth daily. 90 Tab 3 08/28/2020 Active Valsartan 320 MG Oral TabletIndications :Atherosclerosis of [place] coronary artery of [place] heart without angina pectoris,Primary hypertension Take 1 [...] EVERY DAY 90 Tab 3 12/17/2020 Active Furosemide 20 MG Oral Tablet (Lasix) Take 1 Tab by mouth daily. 30 Tab 5 06/28/2020 1 Discontinued documented as of this encounter (statuses as of 12/17/2020) Active Problems Problem Noted Date Type 2 diabetes mellitus wit h stage [...] as of this encounter (statuses as of 12/17/2020) Resolved Problems Problem Noted Date Resolved Date [employer] Other*[id number] 201004/22/2016 Overview: Study Titile: Genomics Markers for Patients with Cardiovascular Disease Project # [id number] PI: Amalia Kingsley MD Please call [phone] with study related questions HTN, goal below [...] as of this encounter (statuses as of 12/17/2020) Immunizations Name Administration Dates Next Due COVID-19 mRNA, LNP-s, No Pre serve, 2-Dose Series (Pfizer) 06/08/2020,05/18/2020 Pneumococcal Conjugate Vacc, 13 Valent (Prevnar) [...] Telephone Encounter - Karly Adler PA-C - 12/17/2020 12:39 PM EDT Signed Prescriptions: Disp Refills Furosemide 20 MG Oral Tablet (Lasix) 90 Tab 3 Sig: TAKE 1 TABLET BY MOUTH EVERY DAY Authorizing Provider: KARLY ADLER * Telephone Encounter - Lizandro Em RN - 12/17/2020 8:28 AM EDT Pending Prescriptions: Disp Refills Furosemide 20 MG Oral Tablet (Lasix) [Pha*90 Tab 3 Sig: TAKE 1 TABLET BY MOUTH EVERY DAY * Telephone Encounter - Lizandro Em RN - 12/17/2020 8:26 AM EDT Pending Prescriptions: Disp Refills Furosemide 20 MG Oral Tablet (Lasix) [Pha*90 Tab 3 Sig: TAKE 1 TABLET BY MOUTH EVERY DAY Last Office/Telemedicine Visit: 07/12/2020 Visit date not found Last medication order date: 06/28/2020 Have you choosen a preferred pharm?? yes Patient Active Problem List Diagnosis Code GENERAL OSTEOARTHROSIS M15.9 Atherosclerosis of [place] coronary artery of [place] heart without angina pectoris I25.10 ADVANCE DIRECTIVE INFORMATION Type 2 diabetes mellitus with hemoglobin A1c goal of less than 8.0% ([facility]) E11.9 DYSLIPIDEMIA, GOAL LDL BELOW [...] and hypertension (HCC) E11.22, I12.9, N18.2 [place] (myocardial infarction) I25.2 Labs: Lab Results Component Value Date/Time CREATININE [...] Encounters Date Type Specialty Care Team Description 12/18/2020 Office Visit Cardiology Karly Adler PA-C [address] [place] [address] [phone] 02/05/2021 Office Visit Family Medicine Smith Orozco MD [address] [place] [address] [place] [address] [phone] 02/28/2021 Office Visit Cardiology Karly Adler PA-C [address] [place] [address] [phone] 04/29/2021 Office Visit Dermatology Kim Kong MD [address] [place] [address], [place] [address] [phone] Health Maintenance Due Date Last Done Comments *DEPRESSION SCREENING,ANNUAL FOR PTS 12 AND OVER 02/20/2019 *NEPHROLOGY REFERRAL DUE TO RESISTANT HTN 11/23/2020 DIABETES-HGBA1C EVERY 6 MONTHS 12/28/2020 06/28/2020, 03/01/2020, [...] Completed 05/25/2019, 09/2019, 11/15/2011 COVID-19 Vaccine Completed 06/08/2020, 05/18/2020 Influenza Vaccine (FLU shot) Completed , 11/22/2019, 11/22/2018, Additional history exists MENINGOCOCCAL (MENACTRA/MENVEO) Aged Out No longer eligible based on patient's age to complete this topic documented as of this encounter Implants Implanted Type Area Water Carter Device Identifier Shelf Expiration Date Model / Serial / Lot Marker Coronary [facility]-Sd - [id number] Implanted:Qty: 1 on 12/26/2010 at OR [facility] N/A: Heart [employer] 10/13/2013 [facility] / / [id number] Sut Steel 6 M654g - [id number] Implanted:Qty: 5 on 12/26/2010 at OR [facility] Chest DO NOT USE 10/14/2015 M654G / / [id number] [facility]onso [facility] 225-241 - [id number] Implanted:Qty: 1 on 12/26/2010 at OR [facility] Chest [employer] 225-241 / / [id number] Lens Intraoc 17.5 - [id number] - [id number] Implanted:Qty: 1 on 02/07/2019 by Quincy Paiz MD at OR [facility] Right: Eye [employer] LOMB 08/14/2023 [id number] / [id number] / [id number] Lens Intraoc 17.0 - [id number] - [id number] Implanted:Qty: 1 on 03/01/2019 by Quincy Paiz MD at OR [facility] Left: Eye [employer]CH [employer] LOMB 09/12/2022 [id number] / [id number] / [id number] documented as of this encounter Advance Directives Documents on File Type Date Recorded Patient Surgery Nurse Expl 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
--- OUTSIDE RECORDS SUMMARY | 2022-11-16 13:13 | External Medical Summary | Summary of Care ---
Author Name Unknown Organization [place] [address] Care Team Providers Care Flour Mixer Name Role Phone Smith Orozco MD Primary Care Provider + [phone] Reason for Visit * Reason Comments Re-Check Encounter Details Date Type Department Care Team Description 02/05/2021 Office Visit Family Medicine [address] [phone] Smith Orozco MD [address] [place] [address] [place] [address] Type 2 diabetes mellitus with hemoglobin A1c goal of less than 8.0% ([facility])*; DM type 2 nursing care encounter ([facility]); Atherosclerosis of [place] coronary artery of [place] heart without angina pectoris; Dyslipidemia, goal LDL below 70; Ischemic cardiomyopathy; [place] (myocardial infarction); Primary hypertension; 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 ([facility]); Carpal tunnel syndrome, bilateral Allergies Active Allergy Reactions Severity Noted Date Comments Acetaminophen Renal complications 04/27/2009 Aspirin 08/13/2000 Stomach pain Cholestyramine 08/13/2000 Kidney pain Atorvastatin Calcium 04/28/2007 cramping Niacin Muscle pain 07/22/2007 Simvastatin Hives 08/13/2000 Ezetimibe 04/28/2007 Cramping ankles, turned feet inward documented as of this encounter (statuses as of 02/05/2021) Medications Medication Sig Dispensed Refills Start Date [...] WITH PONDS 45 g 5 03/28/2019 Active GladitoodTOUCH ULTRA STRPIndications:Ty pe 2 diabetes mellitus with hemoglobin A1c goal of less than 8.0% (HCC) USE ONE TEST STRIP TO TEST BLOOD SUGAR LEVELS TWICE A DAY 200 Strip 5 11/11/2019 Active YogomeTouch UltraSoft Lancets MISCIndications:Ty pe 2 diabetes mellitus [...] Subcutaneous Solution Auto-injector (Alirocumab)Indica tions:Atherosclero sis of [place] coronary artery of [place] heart without angina pectoris,Dyslipide yasmin, goal LDL below 70,[place] (myocardial infarction),Statin [...] 08/09/2020 Active Finasteride 5 MG Oral Tablet (Proscar)Indicatio [...] Valsartan 320 MG Oral TabletIndications: Atherosclerosis of [place] coronary artery of [place] heart without angina pectoris,Primary hypertension Take 1 [...] mouth daily. 90 Cap 1 01/07/2021 Active hydrALAZINE HCl 25 MG Oral Tablet (Apresoline) Take 0.5 Tabs by mouth 2 times a day. 31 Tab 5 01/03/2021 Discontinue d(Patient preference/ discontinua tion) documented as of this encounter (statuses as of 02/05/2021) Active Problems Problem Noted Date Carpal tunnel [...] to patient at prior appointment. Atherosclerosis of [place] co ronary artery of [place] heart without angina pectoris 11/30/2001 GENERAL OSTEOARTHROSIS Multiple pulmonary nodules Complex renal cyst Overview: 3.8 cm; L [place] (myocardial infarction) documented as of this encounter (statuses as of 02/05/2021) Resolved Problems Problem Noted Date Resolved Date [employer] Cardio Research Other*[id number] 201004/22/2016 Overview: Study Titile: Genomics Markers for Patients with Cardiovascular Disease Project # [id number] PI: Baljinder Hung MD Please call [phone] with study related questions HTN, goal below [...] as of this encounter (statuses as of 02/05/2021) Immunizations Name Administration Dates Next Due COVID-19 mRNA, LNP-s, No Pre serve, 2-Dose Series ([employer]) 01/09/2021,06/08/2020,05/18/2020 Pneumococcal Conjugate Vacc, 13 Valent (Prevnar) [...] Sign Reading Time Taken Comments Blood Pressure 136/82 02/05/2021 4:00 PM EST Pulse 72 02/05/2021 4:00 PM EST Temperature 36.1 C (97 F) 02/05/2021 4:00 PM EST Respiratory Rate 16 02/05/2021 4:00 PM EST Oxygen Saturation - - Inhaled Oxygen Concentration - - Weight 64.9 kg (143 lb 2 oz) 02/05/2021 4:00 PM EST Height - - Body Mass Index 23.82 03/01/2020 2:27 PM EST documented in this encounter Progress Notes * Smith Orozco MD - 02/05/2021 4:02 PM EST Cl has been doing well with his sugars. He sees endocrine and recent A1c is 6.7 No complaints ofheadache, trouble with vision or hearing. Eating well, with no bowel or bladder complaints. Denies chest pain or palpitations. Denies shortness of breath, PND, or orthopnea. No skin rashes or breakdown. No changes in mentation. Denies nausea, vomiting, or diarrhea. Denies fevers, chills or sweats. He does complain of bilateral pain, tingling, numbness in both hands. Median nerve distribution. He is right handed. No syncope or falls. All others negative other than those noted in HPI. Health Maintenance addressed. Had the Coronovirus vaccine. Had flu and Shingrix shots Past Medical History: Diagnosis Date Acute [place], inferior wall, subsequent episode of care ([facility]) 1994 BPH with obstruction/lower urinary tract symptoms 11/01/2009 CKD (chronic kidney disease) stage 2, GFR 60-89 ml/min Coronary atherosclerosis of [place] coronary artery 11/30/2001 DM type 2, goal A1c below 7 Elevated PSA 09/30/2017 PSA 7.15 Examination of eyes and vision 09/20/13 no diabetic or hypertensive retinopathy Generalized osteoarthritis HTN, goal below 140/90 Mixed dyslipidemia Multiple pulmonary nodules 03/20/13 [place] (myocardial infarction) 1994 Peptic ulcer Renal mass, left 2014 3.8 cm Type 2 diabetes mellitus with hemoglobin A1c goal of less than 8.0% (HCC) 01/11/2009 Per Diabetes Taxonomy. ICD-10 update of inactive term Past Surgical History: Procedure Laterality Date CABG, ARTERIAL, SINGLE 12/26/2010 CORONARY ARTERY BYPASS GRAFT USING ARTERY 1 GRAFT performed by BERTHA SENIOR at OR [facility] CABG, ARTERY-VEIN, THREE 12/26/2010 CORONARY ARTERY BYPASS GRAFT ARTERIAL AND VENOUS 3 GRAFTS performed by BERTHA SENIOR at OR [facility] CORONARY ANGIOGRAPHY W/LEFT HEART CATH 12/03/2010 CORONARY ANGIOGRAPHY W/LEFT HEART CATH performed by BALJINDER HUNG at CARDIAC LABS [facility] CT CHEST W CONTRAST 07/11/13 non calcified pulmonary nodules persist and are unchanged, calcified hile nodes unchanged, extensive atherosclerosis of cardiac vessels. CT CHEST W CONTRAST 01/04/14 stable pulmonary nodules and granulomas, 3.8 cm complex cyst left kidney CT CHEST W CONTRAST 12/19/14 4 mm nodule RUL, 7 mm nodule RML, stable, 3.6 cm left upper kidney cyst, stable ENDO,VIDEO ASSIST HARVEST EREN 12/26/2010 ENDOSCOPY VIDEO ASSISTED HARVEST VEIN performed by BERTHA SENIOR at OR [facility] INFORMATION 1994 cardiac cath REMOVE CATARACT, INSERT LENS PROSTH Right 02/07/2019 right EXTRACAPSULAR CATARACT REMOVAL WITH INTRAOCULAR LENS performed by Quincy Paiz MD at OR [facility] REMOVE CATARACT, INSERT LENS PROSTH Left 03/01/2019 left EXTRACAPSULAR CATARACT REMOVAL WITH INTRAOCULAR LENS performed by Quincy Paiz MD at OR [facility] REPAIR INITIAL INGUINAL HERNIA REDUCIBLE AGE 5 OR MORE US AAA SCREEN, RADIOLOGY 08/19/13 maximum diameter 2 cm, no AAA VASC DUPLEX CAROTID BILAT 09/22/13 dense calcificed plaque, <50% ICA stenosis, vertbrals [...] Current Outpatient Medications Medication Sig Dispense Refill amLODIPine Besylate 5 MG Oral Tablet (Norvasc) Take 0.5 Tabs by mouth daily. 90 Tab 3 Basaglar KwikPen 100 UNIT/ML Subcutaneous Solution Pen-injector (Insulin Glargine) Inject 9 Units under the skin daily. 1 Each GAVI 180 MG PO TABS One pill [...] 1 TABLET BY MOUTH TWICE A DAY (Patient not taking: Reported on 12/18/2020) 180 Tab 1 Finasteride 5 MG Oral Tablet (Proscar) TAKE 1 TABLET BY MOUTH EVERY DAY 90 Tab 1 Jardiance 25 MG Oral Tablet Take 1 Tab by mouth daily. Valsartan 320 MG Oral Tablet Take 1 Tab by mouth daily. 90 Tab 1 metFORMIN HCl 1000 MG Oral Tablet (Glucophage) TAKE 1 TABLET BY MOUTH TWICE A DAY WITH BREAKFAST AND DINNER 180 Tab 2 NovoLOG FlexPen 100 UNIT/ML Subcutaneous Solution Pen-injector (insulin aspart) Inject 4-5 Units under the skin three times a day with meals. 1 Each Terazosin HCl 5 MG Oral Capsule (Hytrin) Take 1 Cap by mouth daily. 90 Cap 3 Furosemide 20 MG Oral Tablet (Lasix) TAKE 1 TABLET BY MOUTH EVERY DAY 90 Tab 3 hydrALAZINE HCl 25 MG Oral Tablet (Apresoline) Take 0.5 Tabs by mouth 2 times a day. 31 Tab 5 Omeprazole 20 MG Oral Capsule Delayed Release (PriLOSEC) Take 1 Cap by mouth daily. 90 Cap 1 No current facility-administered medications for this visit. Immunization History Administered Date(s) Administered COVID-19 mRNA, LNP-s, No Preserve, 2-Dose Series (ZendyPlace) 05/18/2020, 06/08/2020 Pneumococcal Conjugate Vacc, 13 Valent (Prevnar) 10/16/2015 [...] g/dL ALT 24 10 - 50 U/L Lab Results Component Value Date/Time TSH - [facility] 4.53 (H) 06/28/2020 11:20 AM TSH - [facility] 3.81 04/28/2018 09:11 AM TSH - [facility] 4.73 (H) 03/18/2018 08:29 AM TSH - [facility] 3.86 08/22/2013 11:51 AM O: Blood pressure 136/82, pulse 72, temperature 36.1 C (97 F), temperature source Tympanic, resp. rate 16, weight 64.9 kg (143 lb 2 oz). General appearance: well developed, [...] tenderness. No pedal edema. No skin rashes. 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 Follow Up: Return in about 6 months (around 08/05/2021) for Clinic Visit. | For: Clinic Visit documented in this encounter Nursing Notes * Komal Shearer LPN - 02/05/2021 3:59 PM EST 6 month recheck C/o carpal tunnel bilateral hands He said he had hemoglobin A1C done 01/16/21 6.7 documented in this encounter Plan of Treatment Upcoming Encounters Date Type Specialty Care Team Description 02/28/2021 Office Visit Cardiology Alcon Lott PA-C [address] [place] [address] 03/07/2021 NeuroDiagnostic Study Neurophysiology Marito Jacob DO [address] [place] [address] 04/29/2021 Office Visit Dermatology Kim Kong MD [address] [place] [address] 08/06/2021 Office Visit Family Medicine Smith Orozco MD [address] [place] [address] [place] [phone] Scheduled Orders Name Type Priority Associated Diagnoses Orde r Schedule HEMOGLOBIN A1C Lab Routine Type 2 diabetes mellitus with hemoglobin A1c goal of less than 8.0% (HCC) 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) Expected: 02/05/2021 (Approximate), Expires: 02/05/2022 ALBUMIN / CREATININE RATIO, URINE Lab Routine Type 2 diabetes mellitus with hemoglobin A1c goal of less than 8.0% (HCC) 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) Expected: 02/05/2021 (Approximate), Expires: 02/05/2022 Health Maintenance Due Date Last Done Comments [...] of this encounter Implants Implanted Type Area Ironmolder Device Identifier Shelf Expiration Date Model / Serial / Lot Marker Coronary [facility] - [id number] Implanted:Qty: 1 on 12/26/2010 at OR [facility] N/A: Heart [employer] 10/13/2013 [facility] / / [id number] Sut Steel 6 M654g - [id number] Implanted:Qty: 5 on 12/26/2010 at OR [facility] Chest DO NOT USE 10/14/2015 M654G / / [id number] [employer]onso [facility] 225-241 - [id number] Implanted:Qty: 1 on 12/26/2010 at OR [facility] Chest [employer] 225-241 / / [id number] Lens Intraoc 17.5 - [id number] - [id number] Implanted:Qty: 1 on 02/07/2019 by Quincy Paiz MD at OR [facility] Right: Eye [employer] LOMB 08/14/2023 [id number] / [id number] / [id number] Lens Intraoc 17.0 - [id number] - [id number] Implanted:Qty: 1 on 03/01/2019 by Quincy Paiz MD at OR [facility] Left: Eye [employer] LOMB 09/12/2022 [id number] / [id number] / [id number] documented as of this encounter Visit Diagnoses Diagnosis Type 2 diabetes mellitus with hemoglobin A1c goal of less than 8.0% (HCC)- Primary DM type 2 nursing care encounter (HCC) Type II or unspecified type diabetes mellitus without mention of complication, not stated as uncontrolled Atherosclerosis of [place] coronary artery of [place] heart without angina pectoris Dyslipidemia, goal LDL below 70 Other and unspecified hyperlipidemia Ischemic cardiomyopathy Other specified forms of chronic ischemic heart disease [place] (myocardial infarction) Old myocardial infarction Primary hypertension Unspecified essential hypertension 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 Care Teams Flour Mixer Relationship Specialty Start Date End Date Smith Orozco MD PCP - General Family Medicine 08/03/18 documented as of this encounter"
--- OUTSIDE RECORDS SUMMARY | 2022-11-16 13:13 | External Medical Summary | Summary of Care ---
Author Name Unknown Organization [place] [address] Care Team Providers Care Supervisor [employer] Name Role Phone Smith Orozco MD Primary Care Provider + [phone] Reason for Visit * Reason Comments Follow Up Encounter Details Date Type Department Care Team Description 12/18/2020 Office Visit Cardiology [address] [place] [id number] Alcon Lott PA-C [address] [facility] [place] [address] [phone] Essential hypertension with goal blood pressure less than 140/90*; Old CA (myocardial infarction); Dyslipidemia, goal LDL below 70; Atherosclerosis of [place] coronary artery of [place] heart without angina pectoris; Statin intolerance; Ischemic cardiomyopathy; Edema, unspecified type; Nonrheumatic aortic valve stenosis Allergies Active Allergy Reactions Severity Noted Date Comments Acetaminophen Renal complications 04/27/2009 Aspirin 08/13/2000 Stomach pain Cholestyramine 08/13/2000 Kidney pain Atorvastatin Calcium 04/28/2007 cramping Niacin Muscle pain 07/22/2007 Simvastatin Hives 08/13/2000 Ezetimibe 04/28/2007 Cramping ankles, turned feet inward documented as of this encounter (statuses as of 12/20/2020) Medications Medication Sig Dispensed Refills Start Date [...] of less than 8.0% ([facility]) USE ONE TEST STRIP TO TEST BLOOD SUGAR LEVELS TWICE A DAY 200 Strip 5 11/11/2019 Active OneTouch UltraSoft Lancets MISCIndications:Type 2 diabetes mellitus with hemoglobin A1c goal of less than 8.0% ([facility]) USE ONE LANCET TO TEST BLOOD [...] MG/ML Subcutaneous Solution Auto-injector (Alirocumab)Indicati ons:Atherosclerosis of [place] coronary artery of [place] heart without angina pectoris,Dyslipidemi a, goal LDL [...] on 12/18/2020 Finasteride 5 MG Oral Tablet (Proscar)Indications :BPH with obstruction/lower urinary tract symptoms TAKE 1 TABLET BY MOUTH EVERY DAY 90 Tab 1 08/27/2020 Active Jardiance 25 MG Oral Tablet Take 1 Tab by mouth daily. 0 08/06/2020 Active amLODIPine Besylate 5 MG Oral Tablet (Norvasc)Indications :Essential hypertension with goal blood pressure less than 140/90,Old [place] (myocardial infarction) Take 0.5 Tabs by mouth daily. 90 Tab 3 08/28/2020 Active Valsartan 320 MG Oral TabletIndications:At herosclerosis of [place] coronary artery of [place] heart without angina pectoris,Primary hypertension Take 1 [...] EVERY DAY 90 Tab 3 12/17/2020 Active documented as of this encounter (statuses as of 12/20/2020) Active Problems Problem Noted Date Nonrheumatic aortic [...] to patient at prior appointment. Atherosclerosis of [place] co ronary artery of [place] heart without angina pectoris 11/30/2001 GENERAL OSTEOARTHROSIS Multiple pulmonary nodules Complex renal cyst Overview: 3.8 cm; L Old CA (myocardial infarction) documented as of this encounter (statuses as of 12/20/2020) Resolved Problems Problem Noted Date Resolved Date Genomics Cardio Research Other*[id number] 201004/22/2016 Overview: Study Titile: Genomics Markers for Patients with Cardiovascular Disease Project # [id number] PI: Amalia Kingsley MD Please call [phone] with study related questions HTN, goal below [...] as of this encounter (statuses as of 12/20/2020) Immunizations Name Administration Dates Next Due COVID-19 [...] Given: No Comments:quit in 1971 Alcohol Use Drinks/Week oz/Week Comments Not Currently Sex Assigned at Date Recorded Not on file Job Start Date Occupation Industry Not on file Not on file Not on file documented as of this encounter Last Filed Vital Signs Vital Sign Reading Time Taken Comments Blood Pressure 132/68 12/18/2020 11:43 AM EDT Pulse 68 12/18/2020 11:43 AM EDT Temperature 35.7 C (96.3 F) 12/18/2020 11:43 AM E DT Respiratory Rate 16 12/18/2020 11:43 AM EDT Oxygen Saturation - - Inhaled Oxygen Concentration - - Weight 64.5 kg (142 lb 3.2 oz) 12/18/2020 11:43 AM EDT Height - - Body Mass Index 23.66 03/01/2020 2:27 PM EST documented in this encounter Progress Notes * Alcon Lott PA-C - 12/18/2020 11:59 AM EDT History of Present Illness: Mr. Reynolds is a very pleasant 80 year old male who returns today for cardiology follow-up, evaluation of hypertension. He was last seen in this office on November 20, 2020, presenting at that time with uncontrolled hypertension primarily in the morning and evening. Terazosin was increased to 5 mg/day without difficulty other than perhaps some mild lower extremity peripheral edema. He returns today noting persistently elevated blood pressure readings at 5:30 AM, well controlled blood pressure readings at 11:30 AM, well controlled blood pressure readings at 4:30 PM, and elevated blood pressure readings at again at 8:30 PM. The accuracy of his home blood pressure c uff is questionable with variable blood pressure readings notably observed today. His home blood pressure monitors never been verified. His blood pressure on presentation initially was 132/68 then 102/60 followed by a reading of 112/64. No chest pain, palpitations, unusual shortness of breath, cough, chest congestion, orthopnea, or PND. No headaches or unilateral complaints. No lightheadedness, dizziness, near syncope, or syncope. No melena, hematochezia, or hematuria. Patient Active Problem List Diagnosis Code GENERAL OSTEOARTHROSIS M15.9 Atherosclerosis of [place] coronary artery of [place] heart without angina pectoris I25.10 ADVANCE DIRECTIVE INFORMATION Type 2 diabetes mellitus with hemoglobin A1c goal of less than 8.0% ([facility]) E11.9 DYSLIPIDEMIA, GOAL LDL BELOW 70 [...] I12.9, N18.2 Old CA (myocardial infarction) I25.2 Past Surgical History: Inguinal hernia. CABG Social History: From [place]. Lives in [place] with his . Reformed smoker. 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 Complete Review of Systems is as stated above, negative, or noncontributory. Review of patient's allergies indicates: Allergen Reactions Acetaminophen Renal complications Aspirin Stomach pain Cholestyramine Kidney pain Lipitor [Atorvastatin Calcium] cramping Niacin Muscle pain Simvastatin Hives Zetia [Ezetimibe] Cramping ankles, turned feet inward Current Outpatient Medications Medication Sig Dispense Refill Furosemide 20 MG Oral Tablet (Lasix) TAKE 1 TABLET BY MOUTH EVERY DAY 90 Tab 3 Basaglar KwikPen 100 UNIT/ML Subcutaneous Solution Pen-injector (Insulin Glargine) Inject 9 Units under the skin daily. 1 Each NovoLOG FlexPen 100 UNIT/ML Subcutaneous Solution Pen-injector (insulin aspart) Inject 4-5 Units under the skin three times a day with meals. 1 Each Terazosin HCl 5 MG Oral Capsule (Hytrin) Take 1 Cap by mouth daily. 90 Cap 3 metFORMIN HCl 1000 MG Oral Tablet (Glucophage) TAKE 1 TABLET BY MOUTH TWICE A DAY WITH BREAKFAST AND DINNER 180 Tab 2 Valsartan 320 MG Oral Tablet Take 1 Tab by mouth daily. 90 Tab 1 amLODIPine Besylate 5 MG Oral Tablet (Norvasc) Take 0.5 Tabs by mouth daily. 90 Tab 3 Jardiance 25 MG Oral Tablet Take 1 Tab by mouth daily. Finasteride 5 MG Oral Tablet (Proscar) TAKE 1 TABLET BY MOUTH EVERY DAY 90 Tab 1 Praluent 75 MG/ML Subcutaneous Solution Auto-injector (Alirocumab) Inject 75 mg under the skin every 14 days. 3 mL 3 Omeprazole 20 MG Oral Capsule Delayed Release (PriLOSEC) TAKE 1 CAPSULE BY MOUTH EVERY DAY 90 Cap 1 Isosorbide Mononitrate ER 60 MG Oral Tablet Extended Release 24 Hour (Imdur) Take 1 Tab by mouth daily. In the morning 90 Tab 3 tretinoin (RETIN-A) 0.05 % cream APPLY NIGHTLY TO FACE DIRECTED,CAN MIX WITH PONDS 45 g 5 MULTI-VITAMIN PO TABS one pill each day SB LOW DOSE ASA EC 81 MG PO TBEC Take by mouth. Indications: pmond, thursday MAGNESIUM OXIDE 200 MG PO TABS one tablet twice a day 60 Tab 5 GAVI 180 MG PO TABS One pill by mouth once a day for allergies (Patient taking differently: Take by mouth. Indications: as needed) 30 5 glipiZIDE ER 10 MG Oral Tablet Extended Release 24 Hour (Glucotrol XL) TAKE 1 TABLET BY MOUTH TWICEA DAY (Patient not taking: Reported on 12/18/2020) 180 Tab 1 OneTouch UltraSoft Lancets MISC USE ONE LANCET TO TEST BLOOD SUGAR LEVELS TWICE A DAY 200 Each 3 ONETOUCH ULTRA STRP USE ONE TEST STRIP TO TEST BLOOD SUGAR LEVELS TWICE A DAY 200 Strip 5 PHYSICAL EXAMINATION BP 132/68 (BP Site: Left Arm, BP Position: Sitting, BP Cuff Size: Regular) | Pulse 68 | Temp 35.7 C (96.3 F) | Resp 16 | Wt 64.5 kg (142 lb 3.2 oz) | BMI 23.66 kg/m | BSA 1.72 m | General: A&Ox3. NAD. HENT: Normocephalic. Atraumatic. Eyes: [...] present. Mild mitral regurgitation. Mild tricuspid regurgitation Laboratory work from October 10, 2020 reviewed. Sodium 139. Potassium 4.0. Chloride 105. Bicarb 27. BUN 26. Creatinine 1.23. Glucose 185. ASSESSMENT: 1. Labile hypertension, as detailed above. 2. ASCVD 1. Prior inferior CA in 1994 managed at [facility]. 2. Catheterization in 2010 following abnormal nuclear [...] with patient. Plan as outlined below. RECOMMENDATIONS/PLAN: The patient's medications will be continued as presently prescribed. He will return with his home blood pressure monitor for verification as well as repeat assessment, includingevaluation via automatic blood pressure monitoring. Further recommendations to come. Cardiology follow-up as scheduled or as needed. ER with emergencies. Alcon Lott PA-C Department of Cardiology Home blood pressure monitor was verified as accurate, with very similar readings obtained today viamanual evaluation as well as Dynamap. Amlodipine will be switched to the evening in an attempt to smooth out blood pressure readings. If blood pressure remains elevated would consider retrial of amlodipine at 5 mg/day, perhaps with an additional furosemide tablet a couple days per week, as discussed. Hydralazine may be a future option as well. This chart was completed in part utilizing [email or web address] Speech Voice Recognition Software. Grammatical errors, random [...] documented in this encounter Nursing Notes * Suzan Alcantar RN - 12/18/2020 11:45 AM EDT Examination Room: 3 Name: Cl Reynolds Date of : (1940). Reason for Visit: Follow up Interim Hospitalization(s): No Problems/Concerns: Monitoring bp at home, still fluctuating with readings. Denies symptoms. Chest Pain/SOB: Deneis [facility] way you can [...] Description 02/05/2021 Office Visit Family Medicine Smith Orozco MD [address] [place] [address] [place] [address] 02/28/2021 Office Visit Cardiology Alcon Lott PA-C [address] [place] [address] [phone] 04/29/2021 Office [facility] [address] [phone] Health Maintenance Due Date Last Done Comments [...] of this encounter Implants Implanted Type Area Staffing Clerk Device Identifier Shelf Expiration Date Model / Serial / Lot Marker Coronary Am-Sd - [id number] Implanted:Qty: 1 on 12/26/2010 at OR [facility] N/A: Heart [employer] 10/13/2013 [employer] / / [id number] Sut Steel 6 M654g - [id number] Implanted:Qty: 5 on 12/26/2010 at OR [facility] Chest DO NOT USE 10/14/2015 M654G / / [id number] Alonso Pascual 225-381 - [id number] Implanted:Qty: 1 on 12/26/2010 at OR [facility] Chest [employer] 225-241 / / [id number] Lens Intraoc 17.5 - [id number] - [id number] Implanted:Qty: 1 on 02/07/2019 by Quincy Paiz MD at OR [facility] Right: Eye [employer]OM[employer] 08/14/2023 [id number] / [id number] / [id number] Lens Intraoc 17.0 - [id number] - [id number] Implanted:Qty: 1 on 03/01/2019 by Quincy Paiz MD at OR [facility] Left: Eye [employer]OMB 09/12/2022 [id number] / [id number] / [id number] documented as of this encounter Visit Diagnoses Diagnosis Essential hypertension with goal blood pressure less than 140/90- Primary Old CA (myocardial infarction) Old myocardial infarction Dyslipidemia, goal LDL below 70 Other and unspecified hyperlipidemia Atherosclerosis of [place] coronary artery of [place] heart without angina pectoris Statin intolerance Other drug allergy Ischemic cardiomyopathy Other specified forms of chronic ischemic heart disease Edema, unspecified type Nonrheumatic aortic valve stenosis Aortic valve disorders documented in this encounter Advance Directives Documents on File Type Date Recorded 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
--- OUTSIDE RECORDS SUMMARY | 2022-11-16 13:13 | External Medical Summary | Summary of Care ---
Author Name Unknown Organization [facility] Address [facility] [place] [address] Care Team Providers Care Vehicle Detailer Name Role Phone Smith Orozco MD Primary Care Provider Reason for Visit * Reason Onset Date Comments Blood Pressure Check Blood Pressure Check 12/18/2020 Encounter Details Date Type Department Care Team Description 12/18/2020 Nurse Only Cardiology [address] [place] [address] [place], Nurse Cardiology [address] [place] [address] [phone] Blood Pressure Check; Blood Pressure Check Allergies Active Allergy Reactions Severity Noted Date Comments Acetaminophen Renal complications 04/27/2009 Aspirin 08/13/2000 Stomach pain Cholestyramine 08/13/2000 Kidney pain Atorvastatin Calcium 04/28/2007 cramping Niacin Muscle pain 07/22/2007 Simvastatin Hives 08/13/2000 Ezetimibe 04/28/2007 Cramping ankles, turned feet inward documented as of this encounter (statuses as of 12/18/2020) Medications Medication Sig Dispensed Refills Start Date [...] hemoglobin A1c goal of less than 8.0% ([facility]) USE ONE TEST STRIP TO TEST BLOOD SUGAR LEVELS TWICE A DAY 200 Strip 5 11/11/2019 Active OneTouch UltraSoft Lancets MISCIndications:Type 2 diabetes mellitus with hemoglobin A1c goal of less than 8.0% ([facility]) USE ONE LANCET TO TEST BLOOD SUGAR [...] MG/ML Subcutaneous Solution Auto-injector (Alirocumab)Indicati ons:Atherosclerosis of [place] coronary artery of [place] heart without angina pectoris,Dyslipidemi a, goal LDL below 70,Old [place] (myocardial infarction),Statin intolerance Inject 75 mg under the skin every 14 days. 3 mL 3 07/12/2020 Active glipiZIDE ER 10 MG Oral Tablet Extended Release 24 Hour (Glucotrol XL)Indications:Type 2 diabetes mellitus with hemoglobin A1c goal of less than 8.0% ([facility]) TAKE 1 TABLET BY MOUTH TWICE A [...] less than 140/90,Old [place] (myocardial infarction) Take 0.5 Tabs by mouth daily. 90 Tab 3 08/28/2020 Active Valsartan 320 MG Oral TabletIndications:At herosclerosis of [place] coronary artery of [place] heart without angina pectoris,Primary hypertension Take 1 [...] as of this encounter (statuses as of 12/18/2020) Active Problems Problem Noted Date Nonrheumatic aortic [...] as of this encounter (statuses as of 12/18/2020) Resolved Problems Problem Noted Date Resolved Date Genomics Cardio Research Other*[id number] 201004/22/2016 Overview: Study Titile: Genomics Markers for Patients with Cardiovascular Disease Project # [id number] PI: Amalia Kingsley MD Please call [phone] with study related questions HTN, goal below [...] as of this encounter (statuses as of 12/18/2020) Immunizations Name Administration Dates Next Due COVID-19 [...] Sign Reading Time Taken Comments Blood Pressure 140/64 12/18/2020 2:11 PM EDT Pulse 63 12/18/2020 2:11 PM EDT Temperature - - Respiratory Rate - - Oxygen Saturation - - Inhaled Oxygen Concentration - - Weight - - Height - - Body Mass Index - - documented in this encounter Progress Notes * Suzan Alcantar RN - 12/18/2020 2:11 PM EDT Cl Reynolds presented for blood pressure check per provider orders. The blood pressure was obtained using the left arm in the sitting position using a adult cuff. The results were charted in Vital Signs. BP 140/64 (BP Site: Left Arm, BP Position: Sitting, BP Cuff Size: Regular) | Pulse 63 Patient bp with home arm cuff: 1st attempt: 161/90 HR 67 2nd attempt (5 minutes later): 153/88 HR 66 Office Dynamap: 153/73 HR 63 Nurse manual check x 3: 133/70 140/68 140/64 documented in this encounter Plan of Treatment Upcoming Encounters Date Type Specialty Care Team Description 02/05/2021 Office Visit Family Medicine Smith Orozco MD [address] [place] [address] [place] [address] 02/28/2021 Office Visit Cardiology Alcon Lott PA-C 132 [facility] [place] [address] [phone] 04/29/2021 Office Visit Dermatology Kim Kong MD [facility] [place] [address] [phone] Scheduled Orders Name Type Priority Associated Diagnoses Orde r Schedule BLOOD PRESSURE Procedures Routine HTN, goal below 130/80 Ordered: 12/18/2020 Health Maintenance Due Date Last Done Comments [...] of this encounter Implants Implanted Type Area Rental Car Porter Device Identifier Shelf Expiration Date Model / Serial / Lot Marker Coronary [facility] - [id number] Implanted:Qty: 1 on 12/26/2010 at OR [facility] N/A: Heart [employer] 10/13/2013 [facility] / / [id number] Sut Steel 6 M654g - [id number] Implanted:Qty: 5 on 12/26/2010 at OR [facility] Chest DO NOT USE 10/14/2015 M654G / / [id number] Alonso Pascual 225-241 - [id number] Implanted:Qty: 1 on 12/26/2010 at OR [facility] Chest [employer] 225-241 / / [id number] Lens Intraoc 17.5 - [id number] - [id number] Implanted:Qty: 1 on 02/07/2019 by Quincy Paiz MD at OR [facility] Right: Eye [employer] 08/14/2023 [id number] / [id number] / [id number] Lens Intraoc 17.0 - [id number] - [id number] Implanted:Qty: 1 on 03/01/2019 by Quincy Paiz MD at OR [facility] Left: Eye [employer]OM[employer] 09/12/2022 [id number] / [id number] / [id number] documented as of this encounter Visit Diagnoses Diagnosis HTN, goal below 130/80- Primary Unspecified essential hypertension documented in this encounter Advance Directives Documents on File Type Date Recorded Patient [address] Vendor Expl 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
--- OUTSIDE RECORDS SUMMARY | 2022-11-16 13:13 | External Medical Summary | Summary of Care ---
Author Name Unknown Organization [facility] Address [facility] [place] [address] Care Team Providers Care Manager Respiratory Care Name Role Phone Smith Orozco MD Primary Care Provider [phone] Encounter Details Date Type Department Care Team Description 12/01/2020 Immunization Ancillary [address] [place] [address] [place], [facility] [address] [place] [address] [phone] Arrived Allergies Active Allergy Reactions Severity Noted Date Comments Acetaminophen Renal complications 04/27/2009 Aspirin 08/13/2000 Stomach pain Cholestyramine 08/13/2000 Kidney pain Atorvastatin Calcium 04/28/2007 cramping Niacin Muscle pain 07/22/2007 Simvastatin Hives 08/13/2000 Ezetimibe 04/28/2007 Cramping ankles, turned feet inward documented as of this encounter (statuses as of 12/01/2020) Medications Medication Sig Dispensed Refills Start Date [...] goal of less than 8.0% ([facility]) USE ONE TEST STRIP TO TEST BLOOD SUGAR LEVELS TWICE A DAY 200 Strip 5 11/11/2019 Active OneTouch UltraSoft Lancets MISCIndications:Type 2 diabetes mellitus with hemoglobin A1c goal of less than 8.0% ([facility]) USE ONE LANCET TO TEST BLOOD SUGAR LEVELS TWICE A DAY 200 Each 3 11/15/2019 Active Isosorbide Mononitrate ER 60 MG Oral Tablet Extended Release 24 Hour (Imdur) Take 1 Tab by mouth daily. In the morning 90 Tab 3 05/03/2020 Active Furosemide 20 MG Oral Tablet (Lasix) Take 1 Tab by mouth daily. 30 Tab 5 06/28/2020 Active Omeprazole 20 MG Oral Capsule Delayed Release (PriLOSEC)Indication s:Peptic ulcer TAKE 1 CAPSULE BY MOUTH EVERY DAY 90 Cap 1 07/08/2020 Active Praluent 75 MG/ML Subcutaneous Solution Auto-injector (Alirocumab)Indicati ons:Atherosclerosis of [place] coronary artery of [place] heart without angina pectoris,Dyslipidemi a, goal LDL below 70,Old [place] (myocardial infarction),Statin intolerance Inject 75 mg under the skin every 14 days. 3 mL 3 07/12/2020 Active glipiZIDE ER 10 MG Oral Tablet Extended Release 24 Hour (Glucotrol XL)Indications:Type 2 diabetes mellitus with hemoglobin A1c goal of less than 8.0% ([facility]) TAKE 1 TABLET BY MOUTH TWICE A DAY 180 Tab 1 08/09/2020 Active Finasteride 5 MG Oral Tablet (Proscar)Indications :BPH with obstruction/lower urinary tract symptoms TAKE 1 TABLET BY MOUTH EVERY DAY 90 Tab 1 08/27/2020 Active Jardiance 25 MG Oral Tablet Take 1 Tab by mouth daily. 0 08/06/2020 Active amLODIPine Besylate 5 MG Oral Tablet (Norvasc)Indications :Essential hypertension with goal blood pressure less than 140/90,Old [place] (myocardial infarction) Take 0.5 Tabs by mouth daily. 90 Tab 3 08/28/2020 Active Valsartan 320 MG Oral TabletIndications:At herosclerosis of [place] coronary artery of [place] heart without angina pectoris,Primary hypertension Take 1 [...] mouth daily. 90 Cap 3 11/20/2020 Active documented as of this encounter (statuses as of 12/01/2020) Active Problems Problem Noted Date Type 2 [...] to patient at prior appointment. Atherosclerosis of [place] co ronary artery of [place] heart without angina pectoris 11/30/2001 GENERAL OSTEOARTHROSIS Multiple pulmonary nodules Complex renal cyst Overview: 3.8 cm; L Old [place] (myocardial infarction) documented as of this encounter (statuses as of 12/01/2020) Resolved Problems Problem Noted Date Resolved Date Genomics Cardio Research Other*[id number] 201004/22/2016 Overview: Study Titile: Genomics Markers for Patients with Cardiovascular Disease Project # [id number] PI: Amalia Kingsley MD Please call [phone] with study related questions HTN, goal below [...] as of this encounter (statuses as of 12/01/2020) Immunizations Name Administration Dates Next Due COVID-19 [...] Care Team Description 12/18/2020 Office Visit Cardiology Alcon Lott PA-C 132 [facility] [place] [address] [phone] 01/22/2021 Office Visit Family Medicine Smith Orozco MD [address] [place] [address] [place] [address] [phone] 02/28/2021 Office Visit Cardiology [facility]con [facility]ott [facility]C [facility] [place] [address] [phone] 04/29/2021 Office Visit Dermatology Kim Kong MD [facility] [place] [address] [phone] Health Maintenance Due Date Last Done Comments [...] of this encounter Implants Implanted Type Area Chemical Manager Device Identifier Shelf Expiration Date Model / Serial / Lot Marker Coronary Amgm-Sd - [id number] Implanted:Qty: 1 on 12/26/2010 at OR [facility] N/A: Heart [employer] 10/13/2013 AM-SD / / [id number] Sut Steel 6 M654g - [id number] Implanted:Qty: 5 on 12/26/2010 at OR [facility] Chest DO NOT USE 10/14/2015 M654G / / [id number] Band Ankur 225-831 - [id number] Implanted:Qty: 1 on 12/26/2010 at OR [facility] Chest [employer] 225-241 / / [id number] Lens Intraoc 17.5 - [id number] - [id number] Implanted:Qty: 1 on 02/07/2019 by Quincy Paiz MD at OR [facility] Right: Eye [employer] 08/14/2023 [id number] / [id number] / [id number] Lens Intraoc 17.0 - [id number] - [id number] Implanted:Qty: 1 on 03/01/2019 by Quincy Paiz MD at OR [facility] Left: Eye [employer] 09/12/2022 [id number] / [id number] / [id number] documented as of this encounter Advance Directives Documents on File Type Date Recorded Patient Orthophotography Technician Expl 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
--- OUTSIDE RECORDS SUMMARY | 2022-11-16 13:13 | External Medical Summary | Summary of Care ---
Author Name Unknown Organization [place] [address] Care Team Providers Care Bicycle Mechanic Name Role Phone Smith Orozco MD Primary Care Provider [phone] Encounter Details Date Type Department Care Team Description 10/16/2020 Scan Encounter Unspecified Department <No scans attached> Allergies Active Allergy Reactions Severity Noted Date Comments Acetaminophen Renal complications 04/27/2009 Aspirin 08/13/2000 Stomach pain Cholestyramine 08/13/2000 Kidney pain Atorvastatin Calcium 04/28/2007 cramping Niacin Muscle pain 07/22/2007 Simvastatin Hives 08/13/2000 Ezetimibe 04/28/2007 Cramping ankles, turned feet inward documented as of this encounter (statuses as of 10/18/2020) Medications Medication Sig Dispensed Refills Start Date [...] A1c goal of less than 8.0% (FORMERLY [facility]) USE ONE TEST STRIP TO TEST BLOOD SUGAR LEVELS TWICE A DAY 200 Strip 5 11/11/2019 Active TareasPlusTouch UltraSoft Lancets MISCIndications:Type 2 diabetes mellitus with hemoglobin A1c goal of less than 8.0% ([facility]ER[facility]) USE ONE LANCET TO TEST BLOOD SUGAR [...] MG/ML Subcutaneous Solution Auto-injector (Alirocumab)Indicati ons:Atherosclerosis of [place] coronary artery of [place] heart without angina pectoris,Dyslipidemi a, goal LDL below 70,[place] (myocardial infarction),Statin intolerance Inject 75 mg under the skin every 14 days. 3 mL 3 07/12/2020 Active glipiZIDE ER 10 MG Oral Tablet Extended Release 24 Hour (Glucotrol XL)Indications:Type 2 diabetes mellitus with hemoglobin A1c goal of less than 8.0% ([facility]) TAKE 1 TABLET BY MOUTH TWICE A DAY 180 Tab 1 08/09/2020 Active Finasteride 5 MG Oral Tablet (Proscar)Indications :BPH with obstruction/lower urinary tract symptoms TAKE 1 TABLET BY MOUTH EVERY DAY 90 Tab 1 08/27/2020 Active Terazosin HCl 2 MG Oral CapsuleIndications:A therosclerosis of [place] coronary artery of [place] heart without angina pectoris,BPH with obstruction/lower urinary tract symptoms,Essential hypertension with goal blood pressure less than 140/90 TAKE 1 CAPSULE BY MOUTH EVERYDAY AT BEDTIME 90 Cap 1 08/27/2020 Active Jardiance 25 MG Oral Tablet Take 1 Tab by mouth daily. 0 08/06/2020 Active amLODIPine Besylate 5 MG Oral Tablet (Norvasc)Indications :Essential hypertension with goal blood pressure less than 140/90,Old [place] (myocardial infarction) Take 0.5 Tabs by mouth daily. 90 Tab 3 08/28/2020 Active Valsartan 320 MG Oral TabletIndications:At herosclerosis of [place] coronary artery of [place] heart without angina pectoris,Primary hypertension Take 1 Tab by mouth daily. 90 Tab 1 09/01/2020 Active metFORMIN HCl 1000 MG Oral Tablet (Glucophage)Indicati ons:Type 2 diabetes mellitus with diabetic nephropathy (HCC),Type 2 diabetes mellitus with hemoglobin A1c goal of less than 8.0% (HCC) TAKE 1 TABLET BY MOUTH TWICE A DAY WITH BREAKFAST AND DINNER 180 Tab 2 10/04/2020 Active documented as of this encounter (statuses as of 10/18/2020) Active Problems Problem Noted Date Type 2 [...] to patient at prior appointment. Atherosclerosis of [place] co ronary artery of [place] heart without angina pectoris 11/30/2001 GENERAL OSTEOARTHROSIS Multiple pulmonary nodules Complex renal cyst Overview: 3.8 cm; L [place] (myocardial infarction) documented as of this encounter (statuses as of 10/18/2020) Resolved Problems Problem Noted Date Resolved Date Genomics Cardio Research Other*[id number] 201004/22/2016 Overview: Study Titile: Genomics Markers for Patients with Cardiovascular Disease Project # [id number] PI: Amalia Kingsley MD Please call [phone] with study related questions HTN, goal below [...] as of this encounter (statuses as of 10/18/2020) Immunizations Name Administration Dates Next Due COVID-19 mRNA, LNP-s, No Pre serve, 2-Dose Series (ReturnHauler) 06/08/2020,05/18/2020 Pneumococcal Conjugate Vacc, 13 Valent (Prevnar) 10/16/2015 Pneumococcal Polysaccharide PPV23 (Pneumovax) 12/15/2006,04/01/2002 Seasonal Influenza, Quadriva lent, No Preserve, 6 [...] in 1971 Alcohol Use Drinks/Week oz/Week Comments Yes rarely Sex Assigned at Date Recorded Not on file Job Start Date Occupation Industry Not on file Not on file Not on file documented as of this encounter Plan of Treatment Upcoming Encounters Date Type Specialty Care Team Description 11/01/2020 [facility] [address] [facility] [address] [phone] 01/22/2021 Office Visit Family Medicine Smith Orozco MD [address] [place] [address] [place] [address] 02/28/2021 Office Visit Cardiology Alcon Lott PA-C [address] [place] [address] [phone] Health Maintenance Due Date Last Done Comments *DEPRESSION SCREENING,ANNUAL FOR PTS 12 AND OVER 02/20/2019 Influenza Vaccine (FLU shot) (#1) 2020 11/22/2019, 11/22/2018, 11/17/2017, Additional history exists DIABETES-HGBA1C EVERY 6 MONTHS 12/28/2020 06/28/2020, 03/01/2020, [...] 09/2019, 11/15/2011 COVID-19 Vaccine Completed 06/08/2020, 05/18/2020 MENINGOCOCCAL (MENACTRA/MENVEO) Aged Out No longer eligible based on patient's age to complete this topic documented as of this encounter Implants Implanted Type Area Assembler Device Identifier Shelf Expiration Date Model / Serial / Lot Marker Coronary [facility]-Sd - [id number] Implanted:Qty: 1 on 12/26/2010 at OR [facility] N/A: Heart [employer] 10/13/2013 [facility] / / [id number] Sut Steel 6 M654g - [id number] Implanted:Qty: 5 on 12/26/2010 at OR [facility] Chest DO NOT USE 10/14/2015 M654G / / [id number] Alonso [place] 225-241 - [id number] Implanted:Qty: 1 on 12/26/2010 at OR [facility] Chest [employer] 225-241 / / [id number] Lens Intraoc 17.5 - [id number] - [id number] Implanted:Qty: 1 on 02/07/2019 by Quincy Paiz MD at OR [facility] Right: Eye [employer] LOMB 08/14/2023 [id number] / [id number] / [id number] Lens Intraoc 17.0 - [id number] - [id number] Implanted:Qty: 1 on 03/01/2019 by Quincy Paiz MD at OR [facility] Left: Eye BAUSCH [employer] LOMB 09/12/2022 [id number] / [id number] / [id number] documented as of this encounter Advance Directives Documents on File Type Date Recorded 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
--- OUTSIDE RECORDS SUMMARY | 2022-11-16 13:13 | External Medical Summary | Summary of Care ---
Author Name Unknown Organization [place] [address] Care Team Providers Care Director Of Public Health Name Role Phone Smith Danielle MD Primary Care Provider [phone] Reason for Visit * Reason Comments eRx-Medication Refill Encounter Details Date Type Department Care Team Description 10/03/2020 Refill Family Medicine [address] [place] [address] Smith Danielle MD [address] [place] [address] [place] [address] Type 2 diabetes mellitus with diabetic nephropathy ([facility]); Type 2 diabetes mellitus with hemoglobin A1c goal of less than 8.0% ([facility]) Allergies Active Allergy Reactions Severity Noted Date Comments Acetaminophen Renal complications 04/27/2009 Aspirin 08/13/2000 Stomach pain Cholestyramine 08/13/2000 Kidney pain Atorvastatin Calcium 04/28/2007 cramping Niacin Muscle pain 07/22/2007 Simvastatin Hives 08/13/2000 Ezetimibe 04/28/2007 Cramping ankles, turned feet inward documented as of this encounter (statuses as of 10/04/2020) Medications Medication Sig Dispensed Refills Start Date [...] A DAY 200 Strip 5 11/11/2019 Active Arc SolutionsTouch UltraSoft Lancets MISCIndications:T ype 2 diabetes mellitus [...] Subcutaneous Solution Auto-injector (Alirocumab)Indic ations:Atheroscle rosis of [place] coronary artery of [place] heart without angina pectoris,Dyslipid emia, goal LDL [...] 08/27/2020 Active Terazosin HCl 2 MG Oral CapsuleIndication s:Atherosclerosis of [place] coronary artery of [place] heart without angina pectoris,BPH with obstruction/lower urinary tract symptoms,Essentia l hypertension with goal blood pressure less than [...] Valsartan 320 MG Oral TabletIndications :Atherosclerosis of [place] coronary artery of [place] heart without angina pectoris,Primary hypertension Take 1 Tab by mouth daily. 90 Tab 1 09/01/2020 Active metFORMIN HCl 1000 MG Oral Tablet (Glucophage)Indic ations:Type 2 diabetes mellitus with diabetic nephropathy (HCC),Type 2 diabetes mellitus with hemoglobin A1c goal of less than 8.0% (HCC) TAKE 1 TABLET BY MOUTH TWICE A DAY WITH BREAKFAST AND DINNER 180 Tab 2 10/04/2020 Active metFORMIN HCl 1000 MG Oral Tablet (GLUCOPHAGE)Indic ations:Type 2 diabetes mellitus with diabetic nephropathy (HCC),Type 2 diabetes mellitus with hemoglobin A1c goal of less than 8.0% (HCC) Take 1 Tab by mouth 2 times a day with morning and evening meals. 180 Tab 1 03/01/2020 1 Discontinued documented as of this encounter (statuses as of 10/04/2020) Active Problems Problem Noted Date Type 2 [...] to patient at prior appointment. Atherosclerosis of [place] co ronary artery of [place] heart without angina pectoris 11/30/2001 GENERAL OSTEOARTHROSIS Multiple pulmonary nodules Complex renal cyst Overview: 3.8 cm; L Old [place] (myocardial infarction) documented as of this encounter (statuses as of 10/04/2020) Resolved Problems Problem Noted Date Resolved Date Genomics Cardio Research Other*[id number] 201004/22/2016 Overview: Study Titile: Genomics Markers for Patients with Cardiovascular Disease Project # [id number] PI: Amalia Kingsley MD Please call [phone] with study related questions HTN, goal below [...] as of this encounter (statuses as of 10/04/2020) Immunizations Name Administration Dates Next Due COVID-19 [...] encounter Miscellaneous Notes * Telephone Encounter - Jayna Diaz [facility] - 10/04/2020 7:05 AM EDT Signed Prescriptions: Disp Refills metFORMIN HCl 1000 MG Oral Tablet (Glucoph*180 Tab2 Sig: TAKE 1 TABLET BY MOUTH TWICE A DAY WITH BREAKFAST AND DINNERAuthorizing Provider: SMITH DANIELLE AOrderingUser: JAYNA DIAZ documented in this encounter Plan of Treatment Upcoming Encounters Date Type Specialty Care Team Description 11/01/2020 Office Visit Dermatology Kim Kong MD [address] [place], [place] [id number] 01/22/2021 Office Visit Family Medicine Smith Danielle MD [address] [place] [address] [place] [address] 02/28/2021 Office Visit Cardiology Alcon Lott PA-C [address] [facility] [place] [address] Health Maintenance Due Date Last Done Comments [...] of this encounter Implants Implanted Type Area Security And Privacy Consultant Device Identifier Shelf Expiration Date Model / Serial / Lot Marker Coronary Am-Sd - [id number] Implanted:Qty: 1 on 12/26/2010 at [place] [facility] N/A: Heart [employer] 10/13/2013 [employer]-SD / / [id number] Sut Steel 6 M654g - [id number] Implanted:Qty: 5 on 12/26/2010 at OR [facility] Chest DO NOT USE 10/14/2015 M654G / / [id number] Alonso [facility] 225-241 - [id number] Implanted:Qty: 1 on 12/26/2010 at OR [facility] Chest [employer] 225-241 / / [id number] Lens Intraoc 17.5 - [id number] - [id number] Implanted:Qty: 1 on 02/07/2019 by Quincy Paiz MD at OR [facility] Right: Eye [employer]CH [employer] LOMB 08/14/2023 [id number] / [id number] / [id number] Lens Intraoc 17.0 - [id number] - [id number] Implanted:Qty: 1 on 03/01/2019 by Quincy Paiz MD at OR [facility] Left: Eye BAUSCH [employer] LOMB 09/12/2022 [id number] / [id number] / [id number] documented as of this encounter Visit Diagnoses Diagnosis Type 2 diabetes mellitus with diabetic nephropathy (HCC) Type II or unspecified type diabetes mellitus with renal manifestations, not stated as uncontrolled Type 2 diabetes mellitus with hemoglobin A1c goal of less than 8.0% (HCC) documented in this encounter Advance Directives Documents on File Type Date Recorded 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
--- OUTSIDE RECORDS SUMMARY | 2022-11-16 13:13 | External Medical Summary | Summary of Care ---
Author Name Unknown Organization [place] [address] Care Team Providers Care Bench Loom Weaver Name Role Phone Smith Danielle MD Primary Care Provider Reason for Visit * Reason Onset Date Comments Medication Refill 08/31/2020 Encounter Details Date Type Department Care Team Description 08/31/2020 Refill Internal Medicine [address] [place] [address] Smith Danielle MD [address] [place] [address] [place] [address] [phone] Atherosclerosis of [place] coronary artery of [place] heart without angina pectoris; Primary hypertension Allergies Active Allergy Reactions Severity Noted Date Comments Acetaminophen Renal complications 04/27/2009 Aspirin 08/13/2000 Stomach pain Cholestyramine 08/13/2000 Kidney pain Atorvastatin Calcium 04/28/2007 cramping Niacin Muscle pain 07/22/2007 Simvastatin Hives 08/13/2000 Ezetimibe 04/28/2007 Cramping ankles, turned feet inward documented as of this encounter (statuses as of 09/01/2020) Medications Medication Sig Dispensed Refills Start Date [...] A DAY 200 Strip 5 11/11/2019 Active YodleeTouch UltraSoft Lancets MISCIndications:Ty pe 2 diabetes mellitus with hemoglobin A1c goal of less than 8.0% (HCC) USE ONE LANCET TO TEST BLOOD SUGAR LEVELS TWICE A DAY 200 Each 3 11/15/2019 Active metFORMIN HCl 1000 MG Oral Tablet (GLUCOPHAGE)Indica tions:Type 2 diabetes mellitus with diabetic nephropathy (HCC),Type 2 diabetes mellitus with hemoglobin A1c goal of less than 8.0% (HCC) Take 1 Tab by mouth 2 times a day with morning and evening meals. 180 Tab 1 03/01/2020 Active Isosorbide Mononitrate ER 60 MG Oral [...] Subcutaneous Solution Auto-injector (Alirocumab)Indica tions:Atherosclero sis of [place] coronary artery of [place] heart without angina pectoris,Dyslipide yasmin, goal LDL below 70,Old [place] (myocardial infarction),Statin intolerance Inject 75 mg under [...] 08/27/2020 Active Terazosin HCl 2 MG Oral CapsuleIndications :Atherosclerosis of [place] coronary artery of [place] heart without angina pectoris,BPH with obstruction/lower urinary [...] less than 140/90,Old [place] (myocardial infarction) Take 0.5 Tabs by mouth daily. 90 Tab 3 08/28/2020 Active Valsartan 320 MG Oral TabletIndications: Atherosclerosis of [place] coronary artery of [place] heart without angina pectoris,Primary hypertension Take 1 Tab by mouth daily. 90 Tab 1 09/01/2020 Active Valsartan 320 MG Oral TabletIndications: Atherosclerosis of [place] coronary artery of [place] heart without angina pectoris,Primary hypertension Take 1 Tab by mouth daily. 90 Tab 1 03/01/2020 Discontinue d(Refill) documented as of this encounter (statuses as of 09/01/2020) Active Problems Problem Noted Date Type 2 [...] to patient at prior appointment. Atherosclerosis of [place] co ronary artery of [place] heart without angina pectoris 11/30/2001 GENERAL OSTEOARTHROSIS Multiple pulmonary nodules Complex renal cyst Overview: 3.8 cm; L Old [place] (myocardial infarction) documented as of this encounter (statuses as of 09/01/2020) Resolved Problems Problem Noted Date Resolved Date Genomics Cardio Research Other*[id number] 201004/22/2016 Overview: Study Titile: Genomics Markers for Patients with Cardiovascular Disease Project # [id number] PI: Amalia Kingsley MD Please call [phone] with study related questions HTN, goal below [...] as of this encounter (statuses as of 09/01/2020) Immunizations Name Administration Dates Next Due COVID-19 mRNA, LNP-s, No Pre serve, 2-Dose Series (deltamethod) 06/08/2020,05/18/2020 Pneumococcal Conjugate Vacc, 13 Valent (Prevnar) [...] Telephone Encounter - Smith Danielle MD - 09/01/2020 9:46 AM EDT Signed Prescriptions: Disp Refills Valsartan 320 MG Oral Tablet 90 Tab 1 Sig: Take 1 Tab by mouth daily. Authorizing Provider: SMITH DANIELLE * Telephone Encounter - Candy Daugherty RN - 09/01/2020 9:35 AM EDT Pending Prescriptions: Disp Refills Valsartan 320 MG Oral Tablet 90 Tab 1 Sig: Take 1 Tab by mouth daily. * Telephone Encounter - Candy Daugherty RN - 09/01/2020 9:33 AM EDT Pending Prescriptions: Disp Refills Valsartan 320 MG Oral Tablet 90 Tab 1 Sig: Take 1 Tab by mouth daily. Last Office/Telemedicine Visit: 03/01/2020 Next Office Visit: No Future Appointments If no future appointments scheduled, and last appointment is greater than a year ago, please schedule patient for a follow-up appointment Last date the medication was ordered: 03/04 Pharmacy: [id number] Is this request for a controlled substance?No Urine Drug Screen:No results found for this or any previous visit. Patient Phone Numbers Labs: Lab Results Component Value Date/Time CREAT 1.0 07/12/2020 09:54 AM CREAT 1.0 03/01/2020 02:51 PM CREAT 1.0 01/25/1996 10:05 AM POTASSIUM 4.4 07/12/2020 09:54 AM POTASSIUM 4.4 03/01/2020 02:51 PM POTASSIUM [...] AM ALT 29 01/25/1996 10:05 AM HGBA1C 7.6 (H) 06/28/2020 11:20 AM HGBA1C 7.5 (H) 03/01/2020 02:51 PM HGBA1C 5.7 05/16/1996 10:22 AM documented in this encounter Plan of Treatment Upcoming Encounters Date Type Specialty Care Team Description 11/01/2020 Office Visit Dermatology Kim Kong MD 200 [place] [address] [phone] 01/22/2021 Office Visit Family Medicine Smith Danielle MD [address] [place] [address] [place] [address] 02/28/2021 Office Visit Cardiology Alcon Lott PA-C 132 [facility] [place] [address] [phone] Health Maintenance Due Date Last Done Comments [...] 09/2019, 11/15/2011 Influenza Vaccine (FLU shot) Completed 10/2019, 11/22/2018, 11/17/2017, Additional history exists COVID-19 Vaccine Completed 06/08/2020, 05/18/2020 MENINGOCOCCAL (MENACTRA/MENVEO) Aged Out No longer eligible based on patient's age to complete this topic documented as of this encounter Implants Implanted Type Area Merchant Miller Device Identifier Shelf Expiration Date Model / Serial / Lot Marker Coronary Am-Sd - [id number] Implanted:Qty: 1 on 12/26/2010 at [place] [facility] N/A: Heart [employer] 10/13/2013 AM-SD / / [id number] Sut Steel 6 M654g - [id number] Implanted:Qty: 5 on 12/26/2010 at [place] [facility] Chest DO NOT USE 10/14/2015 M654G / / [id number] Alonso [facility] 225-241 - [id number] Implanted:Qty: 1 on 12/26/2010 at [place] [facility] Chest [employer] 225-241 / / [id number] Lens Intraoc 17.5 - [id number] - [id number] Implanted:Qty: 1 on 02/07/2019 by Quincy Paiz MD at [place] [facility] Right: Eye [employer] LOMB 08/14/2023 [id number] / [id number] / [id number] Lens Intraoc 17.0 - [id number] - [id number] Implanted:Qty: 1 on 03/01/2019 by Quincy Paiz MD at OR [facility] Left: Eye BAUSCH [employer] LOMB 09/12/2022 [id number] / [id number] / [id number] documented as of this encounter Visit Diagnoses Diagnosis Atherosclerosis of [place] coronary artery of [place] heart without angina pectoris Primary hypertension Unspecified essential hypertension documented in this encounter Advance Directives Documents on File Type Date Recorded 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
--- OUTSIDE RECORDS SUMMARY | 2022-11-16 13:13 | External Medical Summary | Summary of Care ---
Author Name Unknown Organization [place] [address] Care Team Providers Care Vamper Name Role Phone Smith Orozco MD Primary Care Provider [phone] Encounter Details Date Type Department Care Team Description 01/22/2021 Scan Encounter [facility] Medicine [address] [address] Smith Orozco MD [address] [place] [address] [place] [address] <No scans attached> Allergies Active Allergy Reactions Severity Noted Date Comments Acetaminophen Renal complications 04/27/2009 Aspirin 08/13/2000 Stomach pain Cholestyramine 08/13/2000 Kidney pain Atorvastatin Calcium 04/28/2007 cramping Niacin Muscle pain 07/22/2007 Simvastatin Hives 08/13/2000 Ezetimibe 04/28/2007 Cramping ankles, turned feet inward documented as of this encounter (statuses as of 01/23/2021) Medications Medication Sig Dispensed Refills Start Date [...] TBECIndications:pmon day, thursday Take by mouth. Indications: pmond, thursday [...] MG/ML Subcutaneous Solution Auto-injector (Alirocumab)Indicati ons:Atherosclerosis of [place] coronary artery of [place] heart without angina pectoris,Dyslipidemi a, goal LDL below 70,Old [place] (myocardial infarction),Statin [...] Valsartan 320 MG Oral TabletIndications:At herosclerosis of [place] coronary artery of [place] heart without angina pectoris,Primary hypertension Take 1 [...] mouth daily. 90 Cap 1 01/07/2021 Active documented as of this encounter (statuses as of 01/23/2021) Active Problems Problem Noted Date Nonrheumatic aortic [...] to patient at prior appointment. Atherosclerosis of [place] co ronary artery of [place] heart without angina pectoris 11/30/2001 GENERAL OSTEOARTHROSIS Multiple pulmonary nodules Complex renal cyst Overview: 3.8 cm; L [place] (myocardial infarction) documented as of this encounter (statuses as of 01/23/2021) Resolved Problems Problem Noted Date Resolved Date Genomics Cardio Research Other*[id number] 201004/22/2016 Overview: Study Titile: Genomics Markers for Patients with Cardiovascular Disease Project # [id number] PI: Amalia Kingsley MD Please call [phone] with study related questions HTN, goal below [...] as of this encounter (statuses as of 01/23/2021) Immunizations Name Administration Dates Next Due COVID-19 mRNA, LNP-s, No Pre serve, 2-Dose Series (Promobucket) 06/08/2020,05/18/2020 Pneumococcal Conjugate Vacc, 13 Valent (Prevnar) [...] Office Visit Family Medicine Smith Orozco MD [address] [place] [address] [place] [address] 02/28/2021 Office Visit Cardiology Alcon Lott PA-C [address] [facility] [place] [address] 04/29/2021 Office Visit Dermatology Kim Kong MD 200 [facility] [place] [address] Health Maintenance Due Date Last Done Comments *DEPRESSION SCREENING,ANNUAL FOR PTS 12 AND OVER 02/20/2019 COVID-19 Vaccine (3 - Booster for Pfizer series) 12/09/2020 06/08/2020, 05/18/2020 DIABETES-HGBA1C EVERY 6 MONTHS [...] of this encounter Implants Implanted Type Area Boiler Operator Helper Device Identifier Shelf Expiration Date Model / Serial / Lot Marker Coronary [facility] - [id number] Implanted:Qty: 1 on 12/26/2010 at [place] [facility] N/A: Heart [employer] 10/13/2013 [facility] / / [id number] Sut Steel 6 M654g - [id number] Implanted:Qty: 5 on 12/26/2010 at [place] [facility] Chest DO NOT USE 10/14/2015 M654G / / [id number] Band [employer] 225-241 - [id number] Implanted:Qty: 1 on 12/26/2010 at [place] [facility] Chest [employer] 225-241 / / [id number] Lens Intraoc 17.5 - [id number] - [id number] Implanted:Qty: 1 on 02/07/2019 by Quincy Paiz MD at OR [facility] Right: Eye [employer]OMB 08/14/2023 [id number] / [id number] / [id number] Lens Intraoc 17.0 - [id number] - [id number] Implanted:Qty: 1 on 03/01/2019 by Quincy Paiz MD at OR [facility] Left: Eye [employer]OMB 09/12/2022 [id number] / [id number] / [id number] documented as of this encounter Advance Directives Documents on File Type Date Recorded 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 Care Teams Vamper Relationship Specialty Start Date End Date Smith Orozco MD PCP - General Family Medicine 08/03/18 documented as of this encounter
--- OUTSIDE RECORDS SUMMARY | 2022-11-16 13:13 | External Medical Summary | Summary of Care ---
Author Name Unknown Organization [facility] Address [place] [address] Care Team Providers Care State Farm Agent Team Member Name Role Phone Smith Orozco MD Primary Care Provider [phone] Reason for Visit * Reason Comments Skin Check skin check - Hx of S CC and AK - area over R eye that crusty and slightly painful. Encounter Details Date Type Department Care Team Description 11/01/2020 Office Visit Dermatology [facility] [place] [address] [facility] [place] [address] Kmi Kong MD [address] [place] [address] [phone] [place] (actinic keratosis)*; Hx of actinic keratosis; Hx of nonmelanoma skin cancer; Scar; Photoaged skin Allergies Active Allergy Reactions Severity Noted Date Comments Acetaminophen Renal complications 04/27/2009 Aspirin 08/13/2000 Stomach pain Cholestyramine 08/13/2000 Kidney pain Atorvastatin Calcium 04/28/2007 cramping Niacin Muscle pain 07/22/2007 Simvastatin Hives 08/13/2000 Ezetimibe 04/28/2007 Cramping ankles, turned feet inward documented as of this encounter (statuses as of 11/06/2020) Medications Medication Sig Dispensed Refills Start Date [...] MG/ML Subcutaneous Solution Auto-injector (Alirocumab)Indicati ons:Atherosclerosis of [place] coronary artery of [place] heart without angina pectoris,Dyslipidemi a, goal LDL [...] HCl 2 MG Oral CapsuleIndications:A therosclerosis of [place] coronary artery of [place] heart without angina pectoris,BPH with obstruction/lower urinary [...] Valsartan 320 MG Oral TabletIndications:At herosclerosis of [place] coronary artery of [place] heart without angina pectoris,Primary hypertension Take 1 [...] as of this encounter (statuses as of 11/06/2020) Active Problems Problem Noted Date Type 2 [...] as of this encounter (statuses as of 11/06/2020) Resolved Problems Problem Noted Date Resolved Date Genomics Cardio Research Other*[id number] 201004/22/2016 Overview: Study Titile: Genomics Markers for Patients with Cardiovascular Disease Project # [id number] PI: Amalia Kingsley MD Please call [phone] with study related questions HTN, goal below [...] as of this encounter (statuses as of 11/06/2020) Immunizations Name Administration Dates Next Due COVID-19 [...] Progress Notes * Kim Kong MD - 11/01/2020 11:44 AM EDT SUBJECTIVE: History of Present Illness: Cl Reynolds is a 80 year old male seen today for follow up - check head/neck (pt defers gown again). Last Office/Telemedicine Visit: 04/26/2020. New spots on scalp and R face x months. 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 HEME/LYMPH: No new or enlarging lumps or bumps. MEDICA TIONS: Current Outpatient Medications Medication Sig Dispense Refill metFORMIN HCl 1000 MG Oral Tablet (Glucophage) [...] BY MOUTH EVERY DAY 90 Tab 1 Terazosin HCl 2 MG Oral Capsule TAKE 1 CAPSULE BY MOUTH EVERYDAY AT BEDTIME 90 Cap 1 glipiZIDE ER 10 MG Oral Tablet Extended Release 24 Hour (Glucotrol XL) TAKE 1 TABLET BY MOUTH TWICEA DAY 180 Tab 1 Praluent 75 MG/ML Subcutaneous Solution Auto-injector (Alirocumab) Inject 75 mg under the skin every 14 days. 3 mL 3 Omeprazole 20 MG Oral Capsule Delayed Release (PriLOSEC) TAKE 1 CAPSULE BY MOUTH EVERY DAY 90 Cap 1 Furosemide 20 MG Oral Tablet (Lasix) Take 1 Tab by mouth daily. 30 Tab 5 Isosorbide Mononitrate ER 60 MG Oral Tablet Extended Release 24 Hour (Imdur) Take 1 Tab by mouth daily. In the morning 90 Tab 3 OneTouch UltraSoft Lancets MISC USE ONE LANCET TO TEST BLOOD SUGAR LEVELS TWICE A DAY 200 Each 3 ONETOUCH ULTRA STRP USE ONE TEST STRIP TO TEST BLOOD SUGAR LEVELS TWICE A DAY 200 Strip 5 tretinoin (RETIN-A) 0.05 % cream APPLY NIGHTLY TO FACE DIRECTED,CAN MIX WITH PONDS 45 g 5 MULTI-VITAMIN PO TABS one pill each day SB LOW DOSE ASA EC 81 MG PO TBEC Take by mouth. Indications: , thursday MAGNESIUM OXIDE 200 MG PO TABS one tablet twice a day 60 Tab 5 GAVI 180 MG PO TABS One pill by mouth once a day for allergies (Patient taking differently: Takeby mouth. Indications: as needed) 30 5 ALLERG IES: Acetaminophen, Aspirin, Cholestyramine, Lipitor [atorvastatin calcium], Niacin, Simvastatin, and Zetia [ezetimibe] OBJECTIVE: GEN: Healthy, alert, no distress, appears oriented, pleasant and cooperative. SKIN: Detailed exam of hair, face including lids and lips, neck and palpation of scalp completed and are normal except: 1. Vertex, R lateral brow, R adventist, L lateral neck - keratotic pink papules 2. Scar - L neck, L ear ASSESS MENT/PLAN: 1. Actinic keratoses - Cryosurgery explained to the patient, verbal consent obtained, patient, siteand procedure verified, time-out called, and then cryotherapy was performed with Liquid Nitrogen via cryo spray unit to 4 lesions. Location noted in physical exam. Post op course explained. Resume tretinoin nightly to whole face 2. Scars - Hx NMSC - no evidence of recurrence Discussed sun protection with patient including proper use of sunscreens and protective clothing. ABCDs explained. Follow-up: 6-9 months check upper body There were no barriers tolearning and no other pain was related to today's visit. The patient and/or person accompanying patient demonstrates understanding of the visit and treatment. Kim Kong MD 11/01/2020 11:44 AM documented in this encounter Nursing Notes * Ca Ambrosio LPN - 11/01/2020 11:27 AM EDT skin check - Hx of SCC and AK - area over R eye that crusty and slightly painful. documented in this encounter Plan of Treatment Upcoming Encounters Date Type Specialty Care Team Description 01/22/2021 Office Visit Family Medicine Smith Orozco MD [address] [place] [address] [place] [address] 02/28/2021 Office Visit Cardiology Alcon Lott PA-C [address] [facility] [place] [address] [phone] 04/29/2021 [facility] [address] [facility] [address] [phone] Health Maintenance Due Date Last Done Comments [...] of this encounter Implants Implanted Type Area Seam Stayer Device Identifier Shelf Expiration Date Model / Serial / Lot Marker Coronary [facility]-Sd - [id number] Implanted:Qty: 1 on 12/26/2010 at OR [facility] N/A: Heart [employer] 10/13/2013 AM-SD / / [id number] Sut Steel 6 M654g - [id number] Implanted:Qty: 5 on 12/26/2010 at OR [facility] Chest DO NOT USE 10/14/2015 M654G / / [id number] Alonso Pascual 225-077 - [id number] Implanted:Qty: 1 on 12/26/2010 at OR [facility] Chest [employer] 225-241 / / [id number] Lens Intraoc 17.5 - [id number] - [id number] Implanted:Qty: 1 on 02/07/2019 by Quincy Paiz MD at OR [facility] Right: Eye [employer]OM[employer] 08/14/2023 [id number] / [id number] / [id number] Lens Intraoc 17.0 - [id number] - [id number] Implanted:Qty: 1 on 03/01/2019 by Quincy Paiz MD at OR [facility] Left: Eye [employer]CH [employer] LOMB 09/12/2022 [id number] / [id number] / [id number] documented as of this encounter Visit Diagnoses Diagnosis AK (actinic keratosis)- Primary Actinic keratosis Hx of actinic keratosis Personal history of diseases of skin and subcutaneous tissue Hx of nonmelanoma skin cancer Personal history of other malignant neoplasm of skin Scar Scar condition and fibrosis of skin Photoaged skin Other dermatitis due to solar radiation documented in this encounter Advance Directives Documents on File Type Date Recorded 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
--- OUTSIDE RECORDS SUMMARY | 2022-11-16 13:13 | External Medical Summary | Summary of Care ---
Author Name Unknown Organization [place] [address] Care Team Providers Care Case Planner Name Role Phone Smith Orozco MD Primary Care Provider [phone] Reason for Visit * Reason Comments Follow Up Blood pressure has b een running high since last appointment. Denies any other cardiac complaints. Encounter Details Date Type Department Care Team Description 11/20/2020 Office Visit Cardiology [address] [place] [address] Alcon Lott PA-C [address] [facility] [place] [address] [phone] Essential hypertension with goal blood pressure less than 140/90*; Old [place] (myocardial infarction); Dyslipidemia, goal LDL below 70; Atherosclerosis of [place] coronary artery of [place] heart without angina pectoris; Statin intolerance; Ischemic cardiomyopathy Allergies Active Allergy Reactions Severity Noted Date Comments Acetaminophen Renal complications 04/27/2009 Aspirin 08/13/2000 Stomach pain Cholestyramine 08/13/2000 Kidney pain Atorvastatin Calcium 04/28/2007 cramping Niacin Muscle pain 07/22/2007 Simvastatin Hives 08/13/2000 Ezetimibe 04/28/2007 Cramping ankles, turned feet inward documented as of this encounter (statuses as of 11/23/2020) Medications Medication Sig Dispensed Refills Start Date [...] Subcutaneous Solution Auto-injector (Alirocumab)Indic ations:Atheroscle rosis of [place] coronary artery of [place] heart without angina pectoris,Dyslipid emia, goal LDL below 70,Old [place] (myocardial infarction),Stati n intolerance Inject 75 mg [...] Valsartan 320 MG Oral TabletIndications :Atherosclerosis of [place] coronary artery of [place] heart without angina pectoris,Primary hypertension Take 1 [...] mouth daily. 90 Cap 3 11/20/2020 Active Terazosin HCl 2 MG Oral CapsuleIndication s:Atherosclerosis of [place] coronary artery of [place] heart without angina pectoris,BPH with obstruction/lower urinary tract symptoms,Essentia l hypertension with goal blood pressure less than 140/90 TAKE 1 CAPSULE BY MOUTH EVERYDAY AT BEDTIME 90 Cap 1 08/27/2020 1 Discontinued documented as of this encounter (statuses as of 11/23/2020) Active Problems Problem Noted Date Type 2 [...] to patient at prior appointment. Atherosclerosis of [place] co ronary artery of [place] heart without angina pectoris 11/30/2001 GENERAL OSTEOARTHROSIS Multiple pulmonary nodules Complex renal cyst Overview: 3.8 cm; L Old [place] (myocardial infarction) documented as of this encounter (statuses as of 11/23/2020) Resolved Problems Problem Noted Date Resolved Date Genomics Cardio Research Other*[id number] 201004/22/2016 Overview: Study Titile: Genomics Markers for Patients with Cardiovascular Disease Project # [id number] PI: Amalia Kingsley MD Please call [phone] with study related questions HTN, goal below [...] as of this encounter (statuses as of 11/23/2020) Immunizations Name Administration Dates Next Due COVID-19 mRNA, LNP-s, No Pre serve, 2-Dose Series (iList) 06/08/2020,05/18/2020 Pneumococcal Conjugate Vacc, 13 Valent (Prevnar) [...] Sign Reading Time Taken Comments Blood Pressure 160/84 11/20/2020 10:06 AM EDT Pulse 68 11/20/2020 10:06 AM EDT Temperature 36 C (96.8 F) 11/20/2020 10:06 AM EDT Respiratory Rate 16 11/20/2020 10:06 AM EDT Oxygen Saturation - - Inhaled Oxygen Concentration - - Weight 62.8 kg (138 lb 6.4 oz) 11/20/2020 10:06 AM EDT Height - - Body Mass Index 23.03 03/01/2020 2:27 PM EST documented in this encounter Progress Notes * Alcon Lott PA-C - 11/20/2020 10:16 AM EDT History of Present Illness: Mr. Reynolds is a very pleasant 80 year old male here today for evaluation of hypertension. He notes that his blood pressure has been running high since last evaluation onAugust 28, 2020. Amlodipine decreased to 2.5 mg/day on August 28, 2020, with resolution of the lower extremity peripheral edema. He reports BP of 175/98 this morning. His blood pressure will typically improve throughout the day. No hypotension. He notes no systolic BP readings under 140 for the last 30days. No chest pain. No palpitations. No unusual shortness of breath. He reports his fluid situation os good. No cough, chest congestion, orthopnea, or PND. No lightheadedness, dizziness, near syncope, or syncope. No melena, hematochezia, or hematuria. No headaches or unilateral complaints. No visual changes. No amaurosis fugax. Patient Active Problem List Diagnosis Code GENERAL OSTEOARTHROSIS M15.9 Atherosclerosis of [place] coronary artery of [place] heart without angina pectoris I25.10 ADVANCE DIRECTIVE [...] and hypertension (HCC) E11.22, I12.9, N18.2 [place] (myocardial infarction) I25.2 Past Surgical History: Inguinal hernia. CABG Social History: From [place]. Lives in [place] with his . Reformed smoker. 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 Complete Review of Systems is as stated above, negative, or noncontributory. Review of patient's allergies indicates: Allergen Reactions Acetaminophen Renal complications Aspirin Stomach pain Cholestyramine Kidney pain Lipitor [Atorvastatin Calcium] cramping Niacin Muscle pain Simvastatin Hives Zetia [Ezetimibe] Cramping ankles, turned feet inward Current Outpatient Medications Medication Sig Dispense Refill Basaglar KwikPen 100 UNIT/ML Subcutaneous Solution Pen-injector (Insulin Glargine) Inject underthe skin. 1 Each NovoLOG FlexPen 100 UNIT/ML Subcutaneous Solution Pen-injector (insulin aspart) Inject under the skin. 1 Each Terazosin HCl 5 MG Oral [...] TBEC Take by mouth. Indications: pm, thursday MAGNESIUM OXIDE 200 MG PO TABS one tablet twice a day 60 Tab 5 GAVI 180 MG PO TABS One pill by mouth once a day for allergies (Patient taking differently: Take by mouth. Indications: as needed) 30 5 glipiZIDE ER 10 MG Oral Tablet Extended Release 24 Hour (Glucotrol XL) TAKE 1 TABLET BY MOUTH TWICEA DAY 180 Tab 1 PHYSICAL EXAMINATION BP 160/84 | Pulse 68 | Temp 36 C (96.8 F) | Resp 16 | Wt 62.8 kg (138 lb 6.4 oz) | BMI 23.03 kg/m | BSA 1.7 m | General: A&Ox3. NAD. HENT: Normocephalic. [...] 1.23. Glucose 185. ASSESSMENT: 1. Labile hypertension, uncontrolled. 2. ASCVD 1. Prior inferior [place] in 1994 managed at [facility]. 2. Catheterization in 2010 following abnormal [...] patient. Plan as outlined below. RECOMMENDATIONS/PLAN: 1. Increase terazosin to 5 mg at bedtime 2. If the above is not well-tolerated and/or additional blood pressure control is needed, would addhydralazine next, as discussed 3. Routine Cardiology follow-up in 4-6 weeks or as needed. 4. ER with emergencies. Alcon Lott PA-C Department of Cardiology This chart was completed in part utilizing [employer] Speech Voice Recognition Software. Grammatical errors, random [...] Notes * Juan M Addison LPN - 11/20/2020 10:05 AM EDT Patient identified by full name and date of . Chief Complaint Patient presents with Follow Up Blood pressure has been running high since last appointment. Denies any other cardiac complaints. Examination Room: 3 Name: Cl Reynolds Date of : (1940). Reason for Visit: BP issues Interim Hospitalization(s): Denies Problems/Concerns: See chief complaint Chest Pain/SOB: Denies [facility] is a way you can [...] Cardiology Alcon Lott PA-C [address] [place] [address] [phone] 01/22/2021 Office Visit Family Medicine Smith Orozco MD [address] [place] [address] [place] [address] [phone] 02/28/2021 Office Visit Cardiology Alcon Lott PA-C [address] [place] [address] [phone] 04/29/2021 Office Visit Dermatology Kim Kong MD [address] [place] [address] [phone] Health Maintenance Due Date Last Done Comments [...] of this encounter Implants Implanted Type Area Progress Clerk Device Identifier Shelf Expiration Date Model / Serial / Lot Marker Coronary Am-Sd - [id number] Implanted:Qty: 1 on 12/26/2010 at OR [facility] N/A: Heart [employer] 10/13/2013 AMGM-SD / / [id number] Sut Steel 6 M654g - [id number] Implanted:Qty: 5 on 12/26/2010 at OR [facility] Chest DO NOT USE 10/14/2015 M654G / / [id number] Band Ankur 225-013 - [id number] Implanted:Qty: 1 on 12/26/2010 at OR [facility] Chest [employer] 225-002 / / [id number] Lens Intraoc 17.5 - [id number] - [id number] Implanted:Qty: 1 on 02/07/2019 by Quincy Paiz MD at OR [facility] Right: Eye [employer]OM[employer] 08/14/2023 [id number] / [id number] / [id number] Lens Intraoc 17.0 - [id number] - [id number] Implanted:Qty: 1 on 03/01/2019 by Quincy Paiz MD at OR [facility] Left: Eye [employer]CH [employer] LOMB 09/12/2022 [id number] / [id number] / [id number] documented as of this encounter Visit Diagnoses Diagnosis Essential hypertension with goal blood pressure less than 140/90- Primary Old [place] (myocardial infarction) Old myocardial infarction Dyslipidemia, goal LDL below 70 Other and unspecified hyperlipidemia Atherosclerosis of [place] coronary artery of [place] heart without angina pectoris Statin intolerance Other drug allergy Ischemic cardiomyopathy Other specified forms of chronic ischemic heart disease documented in this encounter Advance Directives Documents on File Type Date Recorded Patient Continuing Education Director Expl 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
--- OUTSIDE RECORDS SUMMARY | 2022-11-16 13:14 | External Medical Summary | Summary of Care ---
Author Name Unknown Organization [place] [address] Care Team Providers Care Unit Trust Manager Name Role Phone Smith Orozco MD Primary Care Provider + [phone] Reason for Referral * Precert (Within 10 days (routine)) Status Reason Specialty Diagnoses / Procedures Referred By Contact Referred To Contact Pending Review Precert Cardiac Studies Diagnoses Edema, unspecified type Murmur, cardiac Procedures ECHO, COMPLETE (2D), TRANS-THORACIC Alcon Lott PA-C [address] [place] [address] Electronically signed by Alcon Lott PA-C at Reason for Visit * Reason Comments Follow Up Encounter Details Date Type Department Care Team Description 07/12/2020 Office Visit Cardiology, [facility] [address] [place] [address] Alcon Lott PA-C [address] [facility] [address] [place] [address] [phone] Dyslipidemia, goal LDL below 70*; Atherosclerosis of [place] coronary artery of [place] heart without angina pectoris; Old HI (myocardial infarction); Type 2 diabetes mellitus with hemoglobin A1c goal of less than 8.0% (HCC); Statin intolerance; Edema, unspecified type; Murmur, cardiac; Elevated MCV; Encounter for monitoring diuretic therapy Allergies Active Allergy Reactions Severity Noted Date Comments Acetaminophen Renal complications 04/27/2009 Aspirin 08/13/2000 Stomach pain Cholestyramine 08/13/2000 Kidney pain Atorvastatin Calcium 04/28/2007 cramping Niacin Muscle pain 07/22/2007 Simvastatin Hives 08/13/2000 Ezetimibe 04/28/2007 Cramping ankles, turned feet inward documented as of this encounter (statuses as of 07/15/2020) Medications Medication Sig Dispensed Refills Start Date [...] hemoglobin A1c goal of less than 8.0% ([facility]) USE ONE TEST STRIP TO TEST BLOOD SUGAR LEVELS TWICE A DAY 200 Strip 5 11/11/2019 Active OneTouch UltraSoft Lancets MISCIndications:Ty pe 2 diabetes mellitus with hemoglobin A1c goal of less than 8.0% ([facility]) USE ONE LANCET TO TEST BLOOD SUGAR LEVELS TWICE A DAY 200 Each 3 11/15/2019 Active glipiZIDE ER 10 MG Oral Tablet Extended Release 24 Hour (GLUCOTROL XL)Indications:Typ e 2 diabetes mellitus with hemoglobin A1c goal of less than 8.0% (HCC) Take 1 Tab by mouth 2 times a day. 180 Tab 1 02/13/2020 Active Finasteride 5 MG Oral Tablet (PROSCAR)Indicatio ns:BPH with obstruction/lower urinary tract symptoms Take 1 Tab by mouth daily. 90 Tab 1 03/01/2020 Active metFORMIN HCl 1000 MG Oral Tablet (GLUCOPHAGE)Indica tions:Type 2 diabetes mellitus with diabetic nephropathy (HCC),Type 2 diabetes mellitus with hemoglobin A1c goal of less than 8.0% ([facility]) Take 1 Tab by mouth 2 times a day with morning and evening meals. 180 Tab 1 03/01/2020 Active Terazosin HCl 2 MG Oral CapsuleIndications :Atherosclerosis of [place] coronary artery of [place] heart without angina pectoris,BPH with obstruction/lower urinary tract symptoms,Essential hypertension with goal blood pressure less than 140/90 Take 1 Cap by mouth at bedtime. 90 Cap 1 03/01/2020 Active Valsartan 320 MG Oral TabletIndications: Atherosclerosis of [place] coronary artery of [place] heart without angina pectoris,Primary hypertension Take 1 Tab by mouth daily. 90 Tab 1 03/01/2020 Active amLODIPine Besylate 5 MG Oral Tablet (Norvasc)Indicatio ns:Essential hypertension with goal blood pressure less than 140/90,Old HI (myocardial infarction) Take 1 Tab by mouth daily. 90 Tab 3 05/03/2020 Active Isosorbide Mononitrate ER 60 MG Oral [...] Subcutaneous Solution Auto-injector (Alirocumab)Indica tions:Atherosclero sis of [place] coronary artery of [place] heart without angina pectoris,Dyslipide yasmin, goal LDL below 70,Old HI (myocardial infarction),Type 2 diabetes mellitus with hemoglobin A1c goal of less than 8.0% ([facility]),Statin intolerance Inject 75 mg under the skin every 14 days. 3 mL 3 06/29/2020 1 Discontinue d(Refill) Praluent 75 MG/ML Subcutaneous Solution Auto-injector (Alirocumab)Indica tions:Atherosclero sis of [place] coronary artery of [place] heart without angina pectoris,Dyslipide yasmin, goal LDL below 70,Old HI (myocardial infarction),Statin intolerance Inject 75 mg under the skin every 14 days. 3 mL 3 07/12/2020 1 Discontinue d(Refill) documented as of this encounter (statuses as of 07/15/2020) Active Problems Problem Noted Date Type 2 [...] as of this encounter (statuses as of 07/15/2020) Resolved Problems Problem Noted Date Resolved Date [employer] Other*[id number] 201004/22/2016 Overview: Study Titile: Genomics Markers for Patients with Cardiovascular Disease Project # [id number] PI: Amalia Kingsley MD Please call [phone] with study related questions HTN, goal below [...] as of this encounter (statuses as of 07/15/2020) Immunizations Name Administration Dates Next Due Pneumococcal Conjugate Vacc, 13 Valent (Prevnar) 10/16/2015 Pneumococcal Polysaccharide PPV23 (Pneumovax) 12/15/2006,04/01/2002 Seasonal Influenza, Quadriva lent, No Preserve, 6 Mons & Above, IM 11/17/2017 Seasonal Influenza, Quadriva lent, No Preserve, Adjuvanted, 65+ Yrs, IM 11/22/2019 Seasonal Influenza, Quadriva lent, No Preserve, IM 11/21/2016,11/27/2015 Seasonal Influenza, Trivalen t, Adjuvanted, 65+ yrs 11/22/2018 Seasonal Influenza, Trivalen t, with Preserve, 3yr & Above, Split 12/04/2014,11/23/2013,12/07/2012,11/14,11/20/2010,12/13/2009,01/11/20 09,01/04/2008,12/15/2006,12/23/2005,1 ,12/25/2003,12/29/2002,01/19,01/05/2001 01/19/2003 TD - Tetanus/Diptheria (ADULT) 03/16/2003 TDAP (age 10 and older)(Boostrix) 08/05/2012 Varicella Zoster Vaccine (Adult) 11/15/2011 Zoster Vaccine Recombinant (Shingrix) 05/25/2019 ,03/22/2019 documented as of this encounter Social History Tobacco Use Types Packs/Day Years Used Date Former Smoker 0 Smokeless Tobacco: Never Used Tobacco Cessation:Counseling Given: Yes Comments:quit in 1971 Alcohol Use Drinks/Week oz/Week Comments Yes rarely Sex Assigned at Date Recorded Not on file Job Start Date Occupation Industry Not on file Not on file Not on file documented as of this encounter Last Filed Vital Signs Vital Sign Reading Time Taken Comments Blood Pressure 126/64 07/12/2020 8:57 AM EDT Pulse 68 07/12/2020 8:57 AM EDT Temperature 35.8 C (96.4 F) 07/12/2020 8:57 AM ED T Respiratory Rate 14 07/12/2020 8:57 AM EDT Oxygen Saturation - - Inhaled Oxygen Concentration - - Weight 63.9 kg (140 lb 12.8 oz) 07/12/2020 8:57 AM EDT Height - - Body Mass Index 23.43 03/01/2020 2:27 PM EST documented in this encounter Progress Notes * Alcon Lott PA-C - 07/12/2020 9:21 AM EDT History of Present Illness: Mr. Reynolds is a very pleasant 79 year old male who I last on April2019. At that time he complained of lower extremity peripheral edema. Amlodipine was decreased to 5mg/day, concurrently adding isosorbide for additional blood pressure control. He was evaluated by Dr. Banegas on June 29, 2019 due to persistent lower extremity peripheral edema and was prescribed furo semide at 20 mg/day. Patient notes improvement in blood pressure following the addition of furosemide with systolic readings dropping approximately 10 points and diastolic readings dropping 7 points on average. Edema has improved some but not resolved. Weight is down 3 lb from last evaluation. 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 Notes ongoing difficulty receiving Praluent from the pharmacy. No angina. He has not experienced any change in his exercise tolerance or overall functional status. No sublingual nitroglycerin use. No tachypalpitations. No chest congestion, orthopnea, or PND. No fevers or chills. Nonight sweats. No epistaxis. No hemoptysis. No melena or hematochezia. No dysuria. No hematuria. No rash. No headaches or unilateral complaints. No amaurosis fugax. Patient received COVID-19 vaccinations on May 18, 2020 and June 08, 2020. Patient Active Problem List Diagnosis Code GENERAL OSTEOARTHROSIS M15.9 Atherosclerosis of [place] coronary artery of [place] heart without angina pectoris I25.10 ADVANCE DIRECTIVE INFORMATION Type 2 diabetes mellitus with hemoglobin A1c goal of less than 8.0% ([facility]) E11.9 DYSLIPIDEMIA, GOAL LDL BELOW 70 [...] and hypertension (HCC) E11.22, I12.9, N18.2 Old HI (myocardial infarction) I25.2 Past Surgical History: Inguinal hernia. CABG Social History: From [place]. Lives in [place] with his . Reformed smoker. 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 Complete Review of Systems is as stated above, negative, or noncontributory. Review of patient's allergies indicates: Allergen Reactions Acetaminophen Renal complications Aspirin Stomach pain Cholestyramine Kidney pain Lipitor [Atorvastatin Calcium] cramping Niacin Muscle pain Simvastatin Hives Zetia [Ezetimibe] Cramping ankles, turned feet inward Current Outpatient Medications Medication Sig Dispense Refill Praluent 75 MG/ML Subcutaneous Solution Auto-injector (Alirocumab) Inject 75 mg under the skin every 14 days. 3 mL 3 Omeprazole 20 MG Oral Capsule Delayed Release (PriLOSEC) TAKE 1 CAPSULE BY MOUTH EVERY DAY 90 Cap 1 Furosemide 20 MG Oral Tablet (Lasix) Take 1 Tab by mouth daily. 30 Tab 5 amLODIPine Besylate 5 MG Oral Tablet (Norvasc) Take 1 Tab by mouth daily. 90 Tab 3 Isosorbide Mononitrate ER 60 MG Oral Tablet Extended Release 24 Hour (Imdur) Take 1 Tab by mouth daily. In the morning 90 Tab 3 Finasteride 5 MG Oral Tablet (PROSCAR) Take 1 Tab by mouth daily. 90 Tab 1 metFORMIN HCl 1000 MG Oral Tablet (GLUCOPHAGE) Take 1 Tab by mouth 2 times a day with morning and evening meals. 180 Tab 1 Terazosin HCl 2 MG Oral Capsule Take 1 Cap by mouth at bedtime. 90 Cap 1 Valsartan 320 MG Oral Tablet Take 1 Tab by mouth daily. 90 Tab 1 glipiZIDE ER 10 MG Oral Tablet Extended Release 24 Hour (GLUCOTROL XL) Take 1 Tab by mouth 2 times a day. 180 Tab 1 OneTouch UltraSoft Lancets MISC [...] Take by mouth. Indications: pmonday, day thursday MAGNESIUM OXIDE 200 MG PO TABS one tablet twice a day 60 Tab 5 GAVI 180 MG PO TABS One pill by mouth once a day for allergies (Patient taking differently: Take by mouth. Indications: as needed) 30 5 PHYSICAL EXAMINATION BP 126/64 (BP Site: Left Arm, BP Position: Sitting, BP Cuff Size: Large) | Pulse 68 | Temp 35.8 C(96.4 F) | Resp 14 | Wt 63.9 kg (140 lb 12.8 oz) | BMI 23.43 kg/m | BSA 1.71 m | General: A&Ox3. NAD. HEENT: Normocephalic. Atraumatic. PER. Conjunctiva pink, sclera clear. Neck: Bilateral carotid bruits. No JVD. No HJR. Heart: Irregular with occasional ectopic beat. Heart rate in the 60s. Grade II/ systolic ejectionmurmur. No rub. No gallop. PMI is nondisplaced. Lungs: Clear to auscultation. Abdomen: +BS. No abdominal bruits. Soft. Nontender. No masses or organomegaly. Extremities: Trace to 1+ pitting edema bilaterally. No clubbing. No cyanosis. Limited neurological examination is without focal deficits. Pulses: radial=2/4, posterior tibial=2/4. Data: August 11, 2019 TTE Interpretation Summary (as per Dr. Hinds): Compared to last available study, there has been no interval change. Normal LV chamber size. Normal wall thickness in segments with normal wall motion. Moderately reduced LV systolic function, EF 40 to 45%. There is a large sized apical,septal, anteroseptal, inferior, and posterior wall motion abnormality with hypokinesis to akinesis of the segments. Grade 1 diastolic dysfunction. Mildly calcified aortic valve with mild aortic stenosis and mild aortic regurgitation. Mild mitral regurgitation. Mild tricuspid regurgitation. February 2020 carotid duplex revealed stable mild (less than 50%) left internal carotid artery stenosis. Stable moderate (50-69%) right internal carotid artery stenosis. Heavily calcified plaque appreciated bilaterally ASSESSMENT: 1. ASCVD 1. Prior inferior HI in 1994 managed at [facility]. 2. Catheterization in 2010 following abnormal [...] marginal. 4. Ischemic cardiomyopathy, LVEF 40-44%. 2. Mixed valve disease, aortic stenosis and insufficiency, mitral regurgitation. 3. Labile hypertension. Blood pressure acceptably controlled at home and on evaluation today. 4. Bradycardia. Beta-layne intolerance. 5. Palpitations in association with sensed ectopy. 6. Dyslipidemia. Documented statin intolerance and Zetia. 7. Carotid artery disease. History of prior TIA with transient leg weakness. January 2019 Carotid Duplex with 50 to 69% CRISTI stenosis, mild (<50%) LICA. 8. Type II diabetes mellitus. Followed by PCP. 9. BPH 10. 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 Plan as outlined below. RECOMMENDATIONS/PLAN: 1. Follow-up laboratory work today 2. Refer for resting echocardiography given the volume overload, mixed valvular disease follow-up 3. Continue as presently prescribed for now, pending the above. 4. Praluent refilled as requested once again Instructions written. Benefits, use, and risks of the above explained. Cardiology follow-up with the above, in 6 weeks, or as needed. ER with emergencies. Alcon Lott PA-C Department of Cardiology I spent a total of 40 minutes on the date of service in preparation, delivery, and documentation ofthe care provided to Cl Reynolds excluding any time spent in the performance of separately billed services. This chart was completed in part utilizing [employer] Speech Voice Recognition Software. Grammatical errors, random [...] documented in this encounter Nursing Notes * Maged Marie LPN - 07/12/2020 8:59 AM EDT Examination Room: 3 Name: Cl Reynolds Date of : (1940) Reason for Visit: f/u Interim Hospitalization(s): denies Problems/Concerns: LE edema still present Chest Pain/SOB: denies My [facility] a way you can [...] Encounters Date Type Specialty Care Team Description 07/24/2020 Cardiac Studies Cardiac Studies [address] [place] [address] [phone] 08/20/2020 Office Visit Family Medicine Smith Orozco MD [address] [facility] [place] [address] [phone] 08/28/2020 Office Visit Cardiology Alcon Lott PA-C [email or web address] [place] [address] 11/01/2020 Office Visit Dermatology Kim Kong MD [address] [facility] [place] [address] [phone] 11/06/2020 Office Visit Cardiology Alcon Lott PA-C [address] [place] [address] [phone] Scheduled Orders Name Type Priority Associated Diagnoses Orde r Schedule ECHO, COMPLETE (2D), TRANS-THORACIC Echocardiology Routine Edema, unspecified type Murmur, cardiac Expected: 07/13/2020 (Approximate), Expires: 07/12/2021 Health Maintenance Due Date Last Done Comments *DEPRESSION SCREENING,ANNUAL FOR PTS 12 AND OVER 02/20/2019 *NEPHROLOGY REFERRAL DUE TO RESISTANT HTN 06/30/2020 DIABETES-HGBA1C EVERY 6 MONTHS 12/28/2020 06/28/2020, 03/01/2020, [...] Completed 10/2019, 11/22/2018, 11/17/2017, Additional history exists MENINGOCOCCAL (MENACTRA/MENVEO) Aged Out No longer eligible based on patient's age to complete this topic documented as of this encounter Implants Implanted Type Area Mucker [place] Device Identifier Shelf Expiration Date Model / Serial / Lot Marker Coronary Am-Sd - [id number] Implanted:Qty: 1 on 12/26/2010 at [place] [facility] N/A: Heart [employer] 10/13/2013 AM-SD / / [id number] Sut Steel 6 M654g - [id number] Implanted:Qty: 5 on 12/26/2010 at OR [facility] Chest DO NOT USE 10/14/2015 M654G / / [id number] Band Ankur 225-241 - [id number] Implanted:Qty: 1 on 12/26/2010 at OR [facility] Chest [employer] 225-241 / / [id number] Lens Intraoc 17.5 - [id number] - [id number] Implanted:Qty: 1 on 02/07/2019 by Quincy Paiz MD at OR [facility] Right: Eye [employer] 08/14/2023 [id number] / [id number] / [id number] Lens Intraoc 17.0 - [id number] - [id number] Implanted:Qty: 1 on 03/01/2019 by Quincy Paiz MD at OR [facility] Left: Eye [employer] 09/12/2022 [id number] / [id number] / [id number] documented as of this encounter Results * FOLIC ACID (07/12/2020 9:54 AM EDT) Folic Acid >20.0 >4.5 ng/mL [facility] Specimen Blood - Venous blood specime n (specimen) [facility] [address] [place] [address] * VITAMIN B12 (07/12/2020 9:54 AM EDT) Vitamin B12 1,002 232-1,245 pg/mL [facility] Specimen Blood - Venous blood specime n (specimen) Performing Organization Address [facility] de Phone Number [facility] [address] [place] [address] * MAGNESIUM (07/12/2020 9:54 AM EDT) Magnesium 1.9 1.5 - 2.6 mg/dL [facility] Specimen Blood - Venous blood specime n (specimen) Performing Organization Address [facility] de Phone Number [facility] [address] [place] [address] * BASIC METABOLIC PANEL (07/12/2020 9:54 AM EDT) BUN 27(H) 6 - 20 mg/dL [facility] Creatinine 1.0 0.6 - 1.2 mg/dL [facility] Estimated Glomerular Filtration Rate 73.9Comment:If patient is , multiply estimated GFR by 1.159. >=60.0 mL/min [facility] Sodium 137 135 - 146 mmol/L [facility] Potassium 4.4 3.5 - 5.1 mmol/L [facility] Chloride 100 98 - 107 mmol/L [facility] CO2 27 22 - 32 mmol/L [facility] Anion Gap 10 7 - 15 mmol/L [facility] Glucose 208(H) 70 - 120 mg/dL [facility] Calcium 10.0 8.4 - 10.2 mg/dL [facility] Specimen Blood - Venous blood specime n (specimen) Performing Organization Address [facility] de Phone Number [facility] [address] [place] [address] documented in this encounter Visit Diagnoses Diagnosis Dyslipidemia, goal LDL below 70- Primary Other and unspecified hyperlipidemia Atherosclerosis of [place] coronary artery of [place] heart without angina pectoris Old HI (myocardial infarction) Old myocardial infarction Type 2 diabetes mellitus with hemoglobin A1c goal of less than 8.0% ([facility]) Statin intolerance Other drug allergy Edema, unspecified type Murmur, cardiac Undiagnosed cardiac murmurs Elevated MCV Other abnormality of red blood cells Encounter for monitoring diuretic therapy Encounter for therapeutic drug monitoring documented in this encounter Advance Directives Documents on File Type Date Recorded 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
--- OUTSIDE RECORDS SUMMARY | 2022-11-16 13:14 | External Medical Summary | Summary of Care ---
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 Name Role Phone Smith Orozco MD Primary Care Provider + [phone] Reason for Visit * Reason Comments Re-Check Encounter Details Date Type Department Care Team Description 08/20/2020 Office Visit Family Medicine [address] [phone] Smith Orozco MD [address] [place] [address] [place] [address] Type 2 diabetes mellitus with hemoglobin A1c goal of less than 8.0% ([facility])*; Primary hypertension; Ischemic cardiomyopathy; Type 2 diabetes mellitus with stage 2 chronic kidney disease, without long-term current use of insulin ([facility]); 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 ([facility]); Statin intolerance Allergies Active Allergy Reactions Severity Noted Date Comments Acetaminophen Renal complications 04/27/2009 Aspirin 08/13/2000 Stomach pain Cholestyramine 08/13/2000 Kidney pain Atorvastatin Calcium 04/28/2007 cramping Niacin Muscle pain 07/22/2007 Simvastatin Hives 08/13/2000 Ezetimibe 04/28/2007 Cramping ankles, turned feet inward documented as of this encounter (statuses as of 08/20/2020) Medications Medication Sig Dispensed Refills Start Date [...] A DAY 200 Each 3 11/15/2019 Active Finasteride 5 MG Oral Tablet (PROSCAR)Indications :BPH with obstruction/lower urinary tract symptoms Take 1 Tab by mouth daily. 90 Tab 1 03/01/2020 Active metFORMIN HCl 1000 MG Oral Tablet (GLUCOPHAGE)Indicati ons:Type 2 diabetes mellitus with diabetic nephropathy (HCC),Type 2 diabetes mellitus with hemoglobin A1c goal of less than 8.0% (HCC) Take 1 Tab by mouth 2 times a day with morning and evening meals. 180 Tab 1 03/01/2020 Active Terazosin HCl 2 MG Oral CapsuleIndications:A therosclerosis of red cliff coronary artery of red cliff heart without angina pectoris,BPH with obstruction/lower urinary tract symptoms,Essential hypertension with goal blood pressure less than 140/90 Take 1 Cap by mouth at bedtime. 90 Cap 1 03/01/2020 Active Valsartan 320 MG Oral TabletIndications:At herosclerosis of red cliff coronary artery of red cliff heart without angina pectoris,Primary hypertension Take 1 Tab by mouth daily. 90 Tab 1 03/01/2020 Active Isosorbide Mononitrate ER [...] MG/ML Subcutaneous Solution Auto-injector (Alirocumab)Indicati ons:Atherosclerosis of red cliff coronary artery of red cliff heart without angina pectoris,Dyslipidemi a, goal LDL below 70,Old HI (myocardial infarction),Statin intolerance Inject 75 mg under the skin every 14 days. 3 mL 3 07/12/2020 Active Empagliflozin 10 MG Oral Tablet (Jardiance)Indicatio ns:Type 2 diabetes mellitus with stage 2 chronic kidney disease, without long-term current use of insulin (HCC) Take 1 Tab by mouth daily. 30 Tab 5 07/16/2020 Active amLODIPine Besylate 5 MG Oral Tablet (Norvasc)Indications :Essential hypertension with goal blood pressure less than 140/90,Old HI (myocardial infarction) Take 1 Tab by mouth daily. 90 Tab 3 07/18/2020 Active glipiZIDE ER 10 MG Oral Tablet Extended Release 24 Hour (Glucotrol XL)Indications:Type 2 diabetes mellitus with hemoglobin A1c goal of less than 8.0% (HCC) TAKE 1 TABLET BY MOUTH TWICE A DAY 180 Tab 1 08/09/2020 Active documented as of this encounter (statuses as of 08/20/2020) Active Problems Problem Noted Date Type 2 [...] to patient at prior appointment. Atherosclerosis of red cliff co ronary artery of red cliff heart without angina pectoris 11/30/2001 GENERAL OSTEOARTHROSIS Multiple pulmonary nodules Complex renal cyst Overview: 3.8 cm; L Old HI (myocardial infarction) documented as of this encounter (statuses as of 08/20/2020) Resolved Problems Problem Noted Date Resolved Date [employer] Other*[id number] 201004/22/2016 Overview: Study Titile: Genomics Markers for Patients with Cardiovascular Disease Project # [id number] PI: Baljinder Hung MD Please call [phone] with study related questions HTN, goal below [...] as of this encounter (statuses as of 08/20/2020) Immunizations Name Administration Dates Next Due COVID-19 [...] Sign Reading Time Taken Comments Blood Pressure 124/64 08/20/2020 11:56 AM EDT Pulse 72 08/20/2020 11:56 AM EDT Temperature 36.7 C (98 F) 08/20/2020 11:56 AM EDT Respiratory Rate 12 08/20/2020 11:56 AM EDT Oxygen Saturation - - Inhaled Oxygen Concentration - - Weight 63 kg (139 lb) 08/20/2020 11:56 AM EDT Height - - Body Mass Index 23.13 03/01/2020 2:27 PM EST documented in this encounter Progress Notes * Smith Orozco MD - 08/20/2020 12:01 PM EDT Cl feels he is doing ok. He follows with cardiology and they stopped his Toprol in 2016, and he has been fine. He says his sugars are good at home. Denies nausea, vomiting, or diarrhea. Denies fevers, chills or sweats. No complaints of headache, trouble with vision or hearing. Eating well, with no bowel or bladder complaints. Denies chest pain or palpitations. Denies shortness of breath, PND, or orthopnea. No skin rashes or breakdown. No changes in mentation. All others negative other than those noted in HPI. Health Maintenance addressed. Had the Coronovirus shots Past Medical History: Diagnosis Date Acute HI, inferior wall, subsequent episode of care ([facility]) 1994 BPH with obstruction/lower urinary tract symptoms 11/01/2009 CKD (chronic kidney disease) stage 2, GFR 60-89 ml/min Coronary atherosclerosis of red cliff coronary artery 11/30/2001 DM type 2, goal A1c below 7 Elevated PSA 09/30/2017 PSA 7.15 Examination of eyes and vision 09/20/13 no diabetic or hypertensive retinopathy Generalized osteoarthritis HTN, goal below 140/90 Mixed dyslipidemia Multiple pulmonary nodules 03/20/13 Old HI (myocardial infarction) 1994 Peptic ulcer Renal mass, left 2014 3.8 cm Type 2 diabetes mellitus with hemoglobin A1c goal of less than 8.0% ([facility]) 01/11/2009 Per Diabetes Taxonomy. ICD-10 update of inactive term Past Surgical History: Procedure Laterality Date CABG, ARTERIAL, SINGLE 12/26/2010 CORONARY ARTERY BYPASS GRAFT USING ARTERY 1 GRAFT performed by BERTHA SENIOR at OR [facility] CABG, ARTERY-VEIN, THREE 12/26/2010 CORONARY ARTERY BYPASS GRAFT ARTERIAL AND VENOUS 3 GRAFTS performed by BERTHA SENIOR at OR [facility] CORONARY ANGIOGRAPHY W/LEFT HEART CATH 12/03/2010 CORONARY ANGIOGRAPHY W/LEFT HEART CATH performed by BALJINDER HUNG at [facility] CT CHEST W CONTRAST 07/11/13 non calcified [...] performed by BERTHA SENIOR at OR [facility] INFORMATION 1994 cardiac cath REMOVE CATARACT, INSERT LENS PROSTH Right 02/07/2019 right EXTRACAPSULAR CATARACT REMOVAL WITH INTRAOCULAR LENS performed by Quincy Paiz MD at OR [facility] REMOVE CATARACT, INSERT LENS PROSTH Left 03/01/2019 left EXTRACAPSULAR CATARACT REMOVAL WITH INTRAOCULAR LENS performed by Quincy Paiz MD at OR [facility] REPAIR INITIAL INGUINAL HERNIA REDUCIBLE AGE 5 [...] Occupational History 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 Social Needs Financial resource strain: Not on file Food insecurity Worry: Not on file Inability: Not on file Transportation needs Medical: Not on file Non-medical: Not on file Tobacco Use Smoking status: Former Smoker Years: 0.00 Smokeless tobacco: Never Used Tobacco comment: quit in 1971 Substance and Sexual Activity Alcohol use: Yes Comment: rarely Drug use: No Sexual activity: Not on file Lifestyle Physical activity Days per week: Not on file Minutes per session: Not on file Stress: Not on file Relationships Social connections Talks on phone: Not on file Gets together: Not on file Attends lutheran service: Not on file Active member of club or organization: Not on file Attends meetings of clubs or organizations: Not on file Relationship status: Not on file Intimate partner violence Fear of current or ex partner: Not on file Emotionally abused: Not on file Physically abused: Not on file Forced sexual activity: Not on file Other Topics Concern Not on file Social History Narrative [employer] 2 years Vaping/E-Cigarette Use Vaping/E-Cigarette Substances Vaping/E-Cigarette Devices Current Outpatient Medications Medication Sig Dispense Refill glipiZIDE ER 10 MG Oral Tablet Extended Release 24 Hour (Glucotrol XL) TAKE 1 TABLET BY MOUTH TWICEA DAY 180 Tab 1 amLODIPine Besylate 5 MG Oral Tablet (Norvasc) Take 1 Tab by mouth daily. 90 Tab 3 Empagliflozin 10 MG Oral Tablet (Jardiance) Take 1 Tab by mouth daily. 30 Tab 5 Praluent 75 MG/ML Subcutaneous Solution Auto-injector (Alirocumab) [...] Tab by mouth daily. 90 Tab 1 OneTouch UltraSoft Lancets MISC USE [...] TBEC Take by mouth. Indications: pmonday, thursday MAGNESIUM OXIDE 200 MG PO TABS one tablet twice a day 60 Tab 5 GAVI 180 MG PO TABS One pill by mouth once a day for allergies (Patient taking differently: Takeby mouth. Indications: as needed) 30 5 Immunization History Administered Date(s) Administered Pneumococcal Conjugate Vacc, 13 Valent (Prevnar) 10/16/2015 Pneumococcal Polysaccharide PPV23 (Pneumovax) 04/01/2002, 12/15/2006 Seasonal Influenza, Quadrivalent, No Preserve, 6 Mons [...] orders placed or performed in visit on 07/12/20 BASIC METABOLIC PANEL Result Value Ref Range BUN 27 (H) 6 - 20 mg/dL Creatinine 1.0 0.6 - 1.2 mg/dL Estimated Glomerular Filtration Rate 73.9 >=60.0 mL/min Sodium 137 135 - 146 mmol/L Potassium 4.4 3.5 - 5.1 mmol/L Chloride 100 98 - 107 mmol/L CO2 27 22 - 32 mmol/L Anion Gap 10 7 - 15 mmol/L Glucose 208 (H) 70 - 120 mg/dL Calcium 10.0 8.4 - 10.2 mg/dL Lab Results Component Value Date/Time TSH - [facility] 4.53 (H) 06/28/2020 11:20 AM TSH - [facility] 3.81 04/28/2018 09:11 AM TSH - [facility] 4.73 (H) 03/18/2018 08:29 AM TSH - [facility] 3.86 08/22/2013 11:51 AM CBC Results: Results for orders placed or performed in visit on 06/28/20 CBC Result Value Ref Range WBC 4.85 4.00 - 10.80 K/uL RBC 4.08 (L) 4.50 - 5.25 M/uL HGB 14.1 14.0 - 16.8 g/dL HCT 40.9 40.0 - 48.4 % MCV 100.2 (H) 82.0 - 99.5 fL MCH 34.6 (H) 27.0 - 34.0 pg MCHC 34.5 32.0 - 36.0 g/dL RDW 12.2 11.5 - 15.5 % Plt 159 140 - 400 K/uL MPV 9.9 6.6 - 11.1 fL O: Blood pressure 124/64, pulse 72, temperature 36.7 C (98 F), temperature source Tympanic, resp. rate 12, weight 63 kg (139 lb). General appearance: well developed, well nourished and [...] S2 normal. PMI not obviously displaced. Heart regular With a murmur heard at apex and 2RICS, no gallops, clicks or rubs. No CVA tenderness. No calf swelling or tenderness. No pedal edema. No skin rashes. Extremities unremarkable. A: Type 2 diabetes mellitus with hemoglobin A1c goal of less than 8.0% (HCC) (Primary) Primary hypertension Ischemic cardiomyopathy Type 2 diabetes mellitus with stage 2 chronic kidney disease, without long-term current use of insulin (HCC) 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) Statin intolerance Continue other meds as before. Labs due next time. Follow Up: Return in about 5 months (around 01/20/2021) for Clinic Visit. | For: Clinic Visit Follow Up: Return in about 5 months (around 01/20/2021) for Clinic Visit. | For: Clinic Visit documented in this encounter Nursing Notes * Komal Shearer LPN - 08/20/2020 11:49 AM EDT 6 month recheck Got covid shots. documented in this encounter Plan of Treatment Upcoming Encounters Date Type Specialty Care Team Description 08/28/2020 Office Visit Cardiology Alcon Lott PA-C [address] [facility] [place] [address] [phone] 11/01/2020 [facility] [address] [facility] [address] [phone] 11/06/2020 Office Visit Cardiology Alcon Lott PA-C [address] [facility] [place] [address] [phone] 01/22/2021 Office Visit Family Medicine Smith Orozco MD [address] [place] [address] [place] [address] [phone] Health Maintenance Due Date Last Done Comments [...] of this encounter Implants Implanted Type Area Tobacco Sieve Operator Device Identifier Shelf Expiration Date Model / Serial / Lot Marker Coronary Am-Sd - [id number] Implanted:Qty: 1 on 12/26/2010 at OR [facility] N/A: Heart [employer] 10/13/2013 AM-SD / / [id number] Sut Steel 6 M654g - [id number] Implanted:Qty: 5 on 12/26/2010 at OR [facility] Chest DO NOT USE 10/14/2015 M654G / / [id number] [facility] 026-775 - [id number] Implanted:Qty: 1 on 12/26/2010 at OR [facility] Chest [employer] 225-241 / / [id number] Lens Intraoc 17.5 - [id number] - [id number] Implanted:Qty: 1 on 02/07/2019 by Quincy Paiz MD at OR [facility] Right: Eye [employer] 08/14/2023 [id number] / [id number] / [id number] Lens Intraoc 17.0 - [id number] - [id number] Implanted:Qty: 1 on 03/01/2019 by Quincy Paiz MD at OR [facility] Left: Eye [employer]OM[employer] 09/12/2022 [id number] / [id number] / [id number] documented as of this encounter Visit Diagnoses Diagnosis Type 2 diabetes mellitus with hemoglobin A1c goal of less than 8.0% (HCC)- Primary Primary hypertension Unspecified essential hypertension Ischemic cardiomyopathy Other specified forms of chronic ischemic heart disease Type 2 diabetes mellitus with stage 2 chronic kidney disease, without long-term current use of insulin (HCC) 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) Statin intolerance Other drug allergy documented in this encounter Advance Directives Documents on File Type Date 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
--- OUTSIDE RECORDS SUMMARY | 2022-11-16 13:14 | External Medical Summary ---
Author Name Unknown Address Unknown Organization K01:[facility] [address] [place] [address] Laboratory Report Ordering Provider Test Date Status VITOR BRANDT 07/12/2020 09:54:07 Final Observation Date Value Abnormality Reference (Units ) Status Magnesium 07/12/2020 09:54:07 1.9 1.5-2.6 (m g/dL) Final Performing Location [facility] [address] [place] [address]
--- OUTSIDE RECORDS SUMMARY | 2022-11-16 13:14 | External Medical Summary ---
Author Name Unknown Address Unknown Organization K0G:[facility] - [address] [place] [address] Laboratory Report Ordering Provider Test Date Status VITOR BRANDT 07/12/2020 09:54:07 Final Observation Date Value Abnormality Reference (Units ) Status BUN 07/12/2020 09:54:07 27 Above high normal 6-20 (mg/dL) Final Creatinine 07/12/2020 09:54:07 1.0 0.6-1.2 (mg/dL) Final Glomerular filtration rate/1.73 sq M.predicted [Volume Rate/Area] in Serum, Plasma or Blood by Creatinine-based formula (CKD-EPI) 07/12/2020 09:54:07 73.9 >=60.0 (mL/min) Final Performing Location [facility] - [address] [place] [address]
--- OUTSIDE RECORDS SUMMARY | 2022-11-16 13:14 | External Medical Summary | Summary of Care ---
Author Name Unknown Organization [place] [address] Care Team Providers Care Telecom Field Technician Name Role Phone Smith Orozco MD Primary Care Provider Encounter Details Date Type Department Care Team Description 08/06/2020 Scan Encounter Unspecified Department <No scans attached> Allergies Active Allergy Reactions Severity Noted Date Comments Acetaminophen Renal complications 04/27/2009 Aspirin 08/13/2000 Stomach pain Cholestyramine 08/13/2000 Kidney pain Atorvastatin Calcium 04/28/2007 cramping Niacin Muscle pain 07/22/2007 Simvastatin Hives 08/13/2000 Ezetimibe 04/28/2007 Cramping ankles, turned feet inward documented as of this encounter (statuses as of 08/08/2020) Medications Medication Sig Dispensed Refills Start Date [...] Oral Tablet Extended Release 24 Hour (GLUCOTROL XL)Indications:Type 2 diabetes mellitus with hemoglobin A1c goal of less than 8.0% (HCC) Take 1 Tab by mouth 2 times a day. 180 Tab 1 02/13/2020 Active Finasteride 5 MG Oral Tablet (PROSCAR)Indications [...] HCl 2 MG Oral CapsuleIndications:A therosclerosis of wiyot coronary artery of wiyot heart without angina pectoris,BPH with obstruction/lower urinary tract symptoms,Essential hypertension with goal blood pressure less than 140/90 Take 1 Cap by mouth at bedtime. 90 Cap 1 03/01/2020 Active Valsartan 320 MG Oral TabletIndications:At herosclerosis of wiyot coronary artery of wiyot heart without angina pectoris,Primary hypertension Take 1 [...] MG/ML Subcutaneous Solution Auto-injector (Alirocumab)Indicati ons:Atherosclerosis of wiyot coronary artery of wiyot heart without angina pectoris,Dyslipidemi a, goal LDL below 70,Old [place] (myocardial infarction),Statin intolerance Inject 75 mg under [...] less than 140/90,Old GA (myocardial infarction) Take 1 Tab by mouth daily. 90 Tab 3 07/18/2020 Active documented as of this encounter (statuses as of 08/08/2020) Active Problems Problem Noted Date Type 2 [...] to patient at prior appointment. Atherosclerosis of wiyot co ronary artery of wiyot heart without angina pectoris 11/30/2001 GENERAL OSTEOARTHROSIS Multiple pulmonary nodules Complex renal cyst Overview: 3.8 cm; L Old [place] (myocardial infarction) documented as of this encounter (statuses as of 08/08/2020) Resolved Problems Problem Noted Date Resolved Date [employer] Card[employer] Research Other*[id number] 201004/22/2016 Overview: Study Titile: Genomics Markers for Patients with Cardiovascular Disease Project # [id number] PI: Amalia Kingsley MD Please call [phone] with study related questions HTN, goal below [...] as of this encounter (statuses as of 08/08/2020) Immunizations Name Administration Dates Next Due Pneumococcal [...] Encounters Date Type Specialty Care Team Description 08/20/2020 Office Visit Family Medicine Smith Orozco MD [address] [place] [address] [place] [address] [phone] 08/28/2020 Office Visit Cardiology Alcon Lott PA-C [address] [place] [address] [phone] 11/01/2020 Office Visit Dermatology Kim Kong MD [address] [place], [place] [address] [address] [phone] 11/06/2020 Office Visit Cardiology Alcon Lott PA-C [address] [place] [address] [phone] Health Maintenance Due Date Last Done Comments COVID-19 Vaccine (1) 1952 *DEPRESSION SCREENING,ANNUAL FOR PTS 12 AND OVER [...] of this encounter Implants Implanted Type Area Wet And Dry Sugar Bin Operator Device Identifier Shelf Expiration Date Model / Serial / Lot Marker [facility] [id number] Implanted:Qty: 1 on 12/26/2010 at OR [facility] N/A: Heart [employer] 10/13/2013 [facility] / / [id number] Sut Steel 6 M654g - [id number] Implanted:Qty: 5 on 12/26/2010 at OR [facility] Chest DO NOT USE 10/14/2015 M654G / / [id number] Alonso Pascual 225-222 - [id number] Implanted:Qty: 1 on 12/26/2010 at OR [facility] Chest [employer] 225-004 / / [id number] Lens Intraoc 17.5 - [id number] - [id number] Implanted:Qty: 1 on 02/07/2019 by Quincy Paiz MD at OR [facility] Right: Eye [employer] 08/14/2023 [id number] / [id number] / [id number] Lens Intraoc 17.0 - [id number] - [id number] Implanted:Qty: 1 on 03/01/2019 by Quincy Paiz MD at OR [facility] Left: Eye [employer]OM[employer] 09/12/2022 [id number] / [id number] / [id number] documented as of this encounter Advance Directives Documents on File Type Date 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
--- OUTSIDE RECORDS SUMMARY | 2022-11-16 13:14 | External Medical Summary | Summary of Care ---
Author Name Unknown Organization [place] [address] Care Team Providers Care Stock Taker Name Role Phone Smith Danielle MD Primary Care Provider [phone] Reason for Visit * Reason Comments eRx-Medication Refill Encounter Details Date Type Department Care Team Description 08/09/2020 Refill Internal Medicine [address] [place] [address] Smith Danielle MD [address] [place] [address] [place] [address] [phone] Type 2 diabetes mellitus with hemoglobin A1c goal of less than 8.0% ([facility]) Allergies Active Allergy Reactions Severity Noted Date Comments Acetaminophen Renal complications 04/27/2009 Aspirin 08/13/2000 Stomach pain Cholestyramine 08/13/2000 Kidney pain Atorvastatin Calcium 04/28/2007 cramping Niacin Muscle pain 07/22/2007 Simvastatin Hives 08/13/2000 Ezetimibe 04/28/2007 Cramping ankles, turned feet inward documented as of this encounter (statuses as of 08/09/2020) Medications Medication Sig Dispensed Refills Start Date [...] 11/15/2019 Active Finasteride 5 MG Oral Tablet (PROSCAR)Indicati ons:BPH with obstruction/lower urinary tract symptoms Take 1 [...] 03/01/2020 Active Terazosin HCl 2 MG Oral CapsuleIndication s:Atherosclerosis of jamul coronary artery of jamul heart without angina pectoris,BPH with obstruction/lower urinary tract symptoms,Essentia l hypertension with goal blood pressure less than 140/90 Take 1 Cap by mouth at bedtime. 90 Cap 1 03/01/2020 Active Valsartan 320 MG Oral TabletIndications :Atherosclerosis of jamul coronary artery of jamul heart without angina pectoris,Primary hypertension Take 1 [...] Subcutaneous Solution Auto-injector (Alirocumab)Indic ations:Atheroscle rosis of jamul coronary artery of jamul heart without angina pectoris,Dyslipid emia, goal LDL below 70,Old [place] (myocardial infarction),Stati n intolerance Inject 75 mg under the skin every 14 days. 3 mL 3 07/12/2020 Active Empagliflozin 10 MG Oral Tablet (Jardiance)Indica tions:Type 2 diabetes mellitus with stage 2 chronic kidney disease, without long-term current use of insulin (HCC) Take 1 Tab by mouth daily. 30 Tab 5 07/16/2020 Active amLODIPine Besylate 5 MG Oral Tablet (Norvasc)Indicati ons:Essential hypertension with goal blood pressure less than 140/90,Old [place] (myocardial infarction) Take 1 Tab by mouth daily. 90 Tab 3 07/18/2020 Active glipiZIDE ER 10 MG Oral Tablet Extended Release 24 Hour (Glucotrol XL)Indications:Ty pe 2 diabetes mellitus with hemoglobin A1c goal of less than 8.0% (HCC) TAKE 1 TABLET BY MOUTH TWICE A DAY 180 Tab 1 08/09/2020 Active glipiZIDE ER 10 MG Oral Tablet Extended Release 24 Hour (GLUCOTROL XL)Indications:Ty pe 2 diabetes mellitus with hemoglobin A1c goal of less than 8.0% (HCC) Take 1 Tab by mouth 2 times a day. 180 Tab 1 02/13/2020 1 Discontinued documented as of this encounter (statuses as of 08/09/2020) Active Problems Problem Noted Date Type 2 [...] symptoms 11/01/2009 DYSLIPIDEMIA, GOAL LDL BELOW 70 12/10/20 09 Overview: Per Lipid Taxonomy. Type 2 diabetes mellitus with hemoglobin A1c goal of less than 8.0% 01/11/2009 Overview: Per Diabetes Taxonomy. ICD-10 update of inactive term ADVANCE DIRECTIVE INFORMATION 12/23/2006 Overview: No, Advance Directive brochure given to patient at prior appointment. Atherosclerosis of jamul co ronary artery of jamul heart without angina pectoris 11/30/2001 GENERAL OSTEOARTHROSIS Multiple pulmonary nodules Complex renal cyst Overview: 3.8 cm; L Old [place] (myocardial infarction) documented as of this encounter (statuses as of 08/09/2020) Resolved Problems Problem Noted Date Resolved Date Genomics Cardio Research Other*[id number] 201004/22/2016 Overview: Study Titile: Genomics Markers for Patients with Cardiovascular Disease Project # [id number] PI: Amalia Kingsley MD Please call [phone] with study related questions HTN, goal below [...] as of this encounter (statuses as of 08/09/2020) Immunizations Name Administration Dates Next Due Pneumococcal [...] Miscellaneous Notes * Telephone Encounter - Matthew Mobley [facility] - 08/09/2020 1:21 PM EDT Signed Prescriptions: Disp Refills glipiZIDE ER 10 MG Oral Tablet Extended Re*180 Tab1 Sig: TAKE 1 TABLET BY MOUTH TWICE A DAYAuthorizing Provider: SMITH DANIELLE User: MATTHEW MOBLEY------- * Telephone Encounter - Matthew Mobley [facility] - 08/09/2020 1:18 PM EDT Pending Prescriptions: Disp Refills glipiZIDE ER 10 MG Oral Tablet Extended R*180 Tab1 Sig: TAKE 1 TABLET BY MOUTH TWICE A DAY Last Office/Telemedicine Visit: 03/01/2020 Next Office Visit: No Future Appointments If no future appointments scheduled, and last appointment is greater than a year ago, please schedule patient for a follow-up appointment Last date the medication was ordered: Pharmacy: [id number] Is this request for a controlled [...] Description 08/20/2020 Office Visit Family Medicine Smith Danielle MD [address] [place] [address] Dr Goldberg [place] [phone] 08/28/2020 Office Visit Cardiology Alcon Lott PA-C [address] [place] [phone] 11/01/2020 Office Visit Dermatology Kim Kong MD [address] [place] [address], [place] [address] [phone] 11/06/2020 Office Visit Cardiology Alcon Lott PA-C [address] [place] [address] [phone] Health Maintenance Due Date Last Done Comments [...] this encounter Implants Implanted Type Area Guest Associate Device Identifier Shelf Expiration Date Model / Serial / Lot Marker Coronary [facility]-Sd - [id number] Implanted:Qty: 1 on 12/26/2010 at [place] [facility] [place] N/A: Heart [employer] 10/13/2013 [facility] / / [id number] Sut Steel 6 M654g - [id number] Implanted:Qty: 5 on 12/26/2010 at OR [facility] [place] Chest DO NOT USE 10/14/2015 M654G / / [id number] Band [facility] 225-241 - [id number] Implanted:Qty: 1 on 12/26/2010 at OR [facility] [place] Chest [employer] 225-241 / / [id number] Lens Intraoc 17.5 - [id number] - [id number] Implanted:Qty: 1 on 02/07/2019 by Quincy Paiz MD at OR [facility] Right: Eye [employer] 08/14/2023 [id number] / [id number] / [id number] Lens Intraoc 17.0 - [id number] - [id number] Implanted:Qty: 1 on 03/01/2019 by Quincy Paiz MD at OR [facility] Left: Eye BAUSCH & LOMB 09/12/2022 [id number] / [id number] / [id number] documented as of this encounter Visit Diagnoses Diagnosis Type 2 diabetes mellitus with hemoglobin A1c goal of less than 8.0% (HCC) documented in this encounter Advance Directives Documents on File Type Date Recorded Patient Records Administrator Expl 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
--- OUTSIDE RECORDS SUMMARY | 2022-11-16 13:14 | External Medical Summary | Summary of Care ---
Author Name Unknown Organization [facility] Address [place] [address] Care Team Providers Care Three Dimensional Map Modeler Name Role Phone Smith Orozco MD Primary Care Provider Reason for Visit * Reason Onset Date Comments Medication Refill 07/12/2020 Encounter Details Date Type Department Care Team Description 07/12/2020 Refill Cardiology, [facility] [address] [facility] [place] [address] Karly Adler PA-C [address] [facility] [place] [address] [phone] Atherosclerosis of [place] coronary artery of [place] heart without angina pectoris; Dyslipidemia, goal LDL below 70; Old [place] (myocardial infarction); Statin intolerance Allergies Active Allergy Reactions Severity Noted Date Comments Acetaminophen Renal complications 04/27/2009 Aspirin 08/13/2000 Stomach pain Cholestyramine 08/13/2000 Kidney pain Atorvastatin Calcium 04/28/2007 cramping Niacin Muscle pain 07/22/2007 Simvastatin Hives 08/13/2000 Ezetimibe 04/28/2007 Cramping ankles, turned feet inward documented as of this encounter (statuses as of 07/12/2020) Medications Medication Sig Dispensed Refills Start Date [...] WITH PONDS 45 g 5 03/28/2019 Active [email or web address] ULTRA STRPIndications:Ty pe 2 diabetes mellitus with hemoglobin A1c goal of less than 8.0% (HCC) USE ONE TEST STRIP TO TEST BLOOD SUGAR LEVELS TWICE A DAY 200 Strip 5 11/11/2019 Active FIGHTER InteractiveTouch UltraSoft Lancets MISCIndications:Ty pe 2 diabetes mellitus [...] HCl 2 MG Oral CapsuleIndications :Atherosclerosis of [place] coronary artery of [place] heart without angina pectoris,BPH with obstruction/lower urinary tract symptoms,Essential hypertension with goal blood pressure less than 140/90 Take 1 Cap by mouth at bedtime. 90 Cap 1 03/01/2020 Active Valsartan 320 MG Oral TabletIndications: Atherosclerosis of [place] coronary artery of [place] heart without angina pectoris,Primary hypertension Take 1 Tab by mouth daily. 90 Tab 1 03/01/2020 Active amLODIPine Besylate 5 MG Oral Tablet (Norvasc)Indicatio ns:Essential hypertension with goal blood pressure less than 140/90,Old [place] (myocardial infarction) Take 1 Tab by mouth [...] Subcutaneous Solution Auto-injector (Alirocumab)Indica tions:Atherosclero sis of [place] coronary artery of [place] heart without angina pectoris,Dyslipide yasmin, goal LDL below 70,Old [place] (myocardial infarction),Statin intolerance Inject 75 mg under the skin every 14 days. 3 mL 3 07/12/2020 Active Praluent 75 MG/ML Subcutaneous Solution Auto-injector (Alirocumab)Indica tions:Atherosclero sis of [place] coronary artery of [place] heart without angina pectoris,Dyslipide yasmin, goal LDL below 70,Old KS (myocardial infarction),Statin intolerance Inject 75 mg under the skin every 14 days. 3 mL 3 07/12/2020 1 Discontinue d(Refill) documented as of this encounter (statuses as of 07/12/2020) Active Problems Problem Noted Date Type 2 [...] to patient at prior appointment. Atherosclerosis of [place] co ronary artery of [place] heart without angina pectoris 11/30/2001 GENERAL OSTEOARTHROSIS Multiple pulmonary nodules Complex renal cyst Overview: 3.8 cm; L Old KS (myocardial infarction) documented as of this encounter (statuses as of 07/12/2020) Resolved Problems Problem Noted Date Resolved Date Genomics Cardio Research Other*[id number] 201004/22/2016 Overview: Study Titile: Genomics Markers for Patients with Cardiovascular Disease Project # [id number] PI: Amalia Kingsley MD Please call [phone] with study related questions HTN, goal below [...] as of this encounter (statuses as of 07/12/2020) Immunizations Name Administration Dates Next Due Pneumococcal [...] encounter Miscellaneous Notes * Telephone Encounter - Lester Zayas [facility] - 07/12/2020 2:40 PM EDT Signed Prescriptions: Disp Refills Praluent 75 MG/ML Subcutaneous Solution Au*3 mL 3 Sig: Inject 75 mg under the skin every 14 days. Authorizing Provider: KARLY ADLER Ordering User: LESTER ZAAYS * Telephone Encounter - Riya Chanel TECH - 07/12/2020 11:28 AM EDT [facility] forwarded praluent prescription to [facility] per prev note and per rx. The office should follow up with this Pharmacy to ensure they have contacted patient. Thank you. Riya Chanel [facility] 07/12/2020, 11:28 AM documented in this encounter Plan of Treatment Upcoming Encounters Date Type Specialty Care Team Description 07/24/2020 Cardiac Studies Cardiac Studies [address] [place] [address] 08/20/2020 Office Visit Family Medicine Smith Orozco MD [address] [place] [address] [place] [address] 08/28/2020 Office Visit Cardiology Karly Adler PA-C [address] [place] [address] [phone] 11/01/2020 Office Visit Dermatology Kim Kong MD [address] [place], [place] [address] [address] [phone] 11/06/2020 Office Visit Cardiology Karly Adler PA-C [address] [place] [address] Health Maintenance Due Date Last Done Comments *DEPRESSION SCREENING,ANNUAL FOR PTS 12 AND OVER 02/20/2019 *NEPHROLOGY REFERRAL DUE TO RESISTANT HTN 06/30/2020 Yearly B-12 08/29/2020 08/30/2019, 08/2018, 08/12/2017 DIABETES-HGBA1C EVERY 6 MONTHS 12/28/2020 06/28/2020, 03/01/2020, 08/30/2019, Additional history exists DIABETES-FOOT EXAM 03/01/2021 03/01/2020, 1 03/26/2018, 02/18/2018, Additional history exists DIABETES-EYE EXAM 03/23/2021 03/23/2020, , 11/05/2017, Additional history exists DTaP,Tdap,and Td Vaccines (2 - Td) 08/05/2022 08/05/2012, 03/16/2003 Pneumococcal Vaccine: 65+ Years Completed 10/16/2015, 12/15/2006, 04/01/2002 Zoster Vaccines Completed 05/25/2019, 09/2019, 11/15/2011 Influenza Vaccine (FLU shot) Completed 10/2019, 11/22/2018, 11/17/2017, Additional history exists MENINGOCOCCAL (MENACTRA/MENVEO) Aged Out No longer eligible based on patient's age to complete this topic documented as of this encounter Implants Implanted Type Area Supervisor Hide House Device Identifier Shelf Expiration Date Model / Serial / Lot Marker Coronary [facility]-Sd - [id number] Implanted:Qty: 1 on 12/26/2010 at OR [facility] [place] N/A: Heart [employer] 10/13/2013 [facility] / / [id number] Sut Steel 6 M654g - [id number] Implanted:Qty: 5 on 12/26/2010 at OR [facility] Chest DO NOT USE 10/14/2015 M654G / / [id number] Alonso Pascual 225-879 - [id number] Implanted:Qty: 1 on 12/26/2010 at OR [facility] Chest [employer] 225-419 / / [id number] Lens Intraoc 17.5 - [id number] - [id number] Implanted:Qty: 1 on 02/07/2019 by Quincy Paiz MD at OR [facility] Right: Eye [employer]OM[employer] 08/14/2023 [id number] / [id number] / [id number] Lens Intraoc 17.0 - [id number] - [id number] Implanted:Qty: 1 on 03/01/2019 by Quincy Paiz MD at OR [facility] Left: Eye BAUSCH & LOMB 09/12/2022 [id number] / [id number] / [id number] documented as of this encounter Visit Diagnoses Diagnosis Atherosclerosis of [place] coronary artery of [place] heart without angina pectoris Dyslipidemia, goal LDL below 70 Other and unspecified hyperlipidemia Old KS (myocardial infarction) Old myocardial infarction Statin intolerance Other drug allergy documented in this encounter Advance Directives Documents on File Type Date Recorded 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
--- OUTSIDE RECORDS SUMMARY | 2022-11-16 13:14 | External Medical Summary ---
Author Name Unknown Address Unknown Organization K01:[facility] [place] [address] [place] [address] Laboratory Report Ordering Provider Test Date Status VITOR BRANDT 07/12/2020 09:54:07 Final Observation Date Value Abnormality Reference (Units ) Status Folic Acid 07/12/2020 09:54:07 >20.0 >4.5 (ng/ mL) Final Performing Location [facility] - [address] [place] [address]
--- OUTSIDE RECORDS SUMMARY | 2022-11-16 13:14 | External Medical Summary | Summary of Care ---
Author Name Unknown Organization [place] [address] Care Team Providers Care Aviation Manager Name Role Phone Smith Danielle MD Primary Care Provider Reason for Visit * Reason Comments eRx-Medication Refill Encounter Details Date Type Department Care Team Description 07/07/2020 Refill Internal Medicine [address] [place] [address] Pierre Nath MD [address] [place] [address] [place] [address] [phone] PEPTIC ULCER NOS Allergies Active Allergy Reactions Severity Noted Date Comments Acetaminophen Renal complications 04/27/2009 Aspirin 08/13/2000 Stomach pain Cholestyramine 08/13/2000 Kidney pain Atorvastatin Calcium 04/28/2007 cramping Niacin Muscle pain 07/22/2007 Simvastatin Hives 08/13/2000 Ezetimibe 04/28/2007 Cramping ankles, turned feet inward documented as of this encounter (statuses as of 07/08/2020) Medications Medication Sig Dispensed Refills Start Date [...] 02/13/2020 Active Finasteride 5 MG Oral Tablet (PROSCAR)Indicati [...] HCl 2 MG Oral CapsuleIndication s:Atherosclerosis of [place] coronary artery of [place] heart without angina pectoris,BPH with obstruction/lower urinary tract symptoms,Essentia l hypertension with goal blood pressure less than 140/90 Take 1 Cap by mouth at bedtime. 90 Cap 1 03/01/2020 Active Valsartan 320 MG Oral TabletIndications :Atherosclerosis of [place] coronary artery of [place] heart without angina pectoris,Primary hypertension Take 1 [...] mouth daily. 30 Tab 5 06/28/2020 Active Praluent 75 MG/ML Subcutaneous Solution Auto-injector (Alirocumab)Indic ations:Atheroscle rosis of [place] coronary artery of [place] heart without angina pectoris,Dyslipid emia, goal LDL below 70,Old [place] (myocardial infarction),Type 2 diabetes mellitus with hemoglobin A1c goal of less than 8.0% ([facility]),Statin intolerance Inject 75 mg under the skin every 14 days. 3 mL 3 06/29/2020 Active Omeprazole 20 MG Oral Capsule Delayed Release (PriLOSEC)Indicat ions:Peptic ulcer TAKE 1 CAPSULE BY MOUTH EVERY DAY 90 Cap 1 07/08/2020 Active Omeprazole 20 MG Oral Capsule Delayed Release (PriLOSEC)Indicat ions:Peptic ulcer Take 1 Cap by mouth daily. 90 Cap 1 01/16/2020 1 Discontinued documented as of this encounter (statuses as of 07/08/2020) Active Problems Problem Noted Date Type 2 [...] to patient at prior appointment. Atherosclerosis of [place] co ronary artery of [place] heart without angina pectoris 11/30/2001 GENERAL OSTEOARTHROSIS Multiple pulmonary nodules Complex renal cyst Overview: 3.8 cm; L Old [place] (myocardial infarction) documented as of this encounter (statuses as of 07/08/2020) Resolved Problems Problem Noted Date Resolved Date Genomics Cardio Research Other*[id number] 201004/22/2016 Overview: Study Titile: Genomics Markers for Patients with Cardiovascular Disease Project # [id number] PI: Amalia Kingsley MD Please call [phone] with study related questions HTN, goal below [...] as of this encounter (statuses as of 07/08/2020) Immunizations Name Administration Dates Next Due Pneumococcal [...] encounter Miscellaneous Notes * Telephone Encounter - Fadi Wilson, [facility] - 07/08/2020 1:16 PM EDT Signed Prescriptions: Disp Refills Omeprazole 20 MG Oral Capsule Delayed Rele*90 Cap 1 Sig: TAKE 1 CAPSULE BY MOUTH EVERY DAYAuthorizing Provider: SMITH DANIELLE [facility] User: FADI WILSON--- documented in this encounter Plan of Treatment Upcoming Encounters Date Type Specialty Care Team Description 07/12/2020 Office Visit Cardiology Alcon Lott PA-C [address] [place] [address] [phone] 08/20/2020 Office Visit Internal Medicine Smith Danielle MD [address] [place] [address] [place] [address] 11/01/2020 Office Visit Dermatology Kim Kong MD [address] [place] [address], [place] [address] [phone] 11/06/2020 Office Visit Cardiology Alcon Lott PA-C [address] [place] [address] [phone] Health Maintenance Due Date Last Done Comments *DEPRESSION SCREENING,ANNUAL FOR PTS 12 AND OVER 02/20/2019 *NEPHROLOGY REFERRAL DUE TO RESISTANT HTN 06/30/2020 Yearly B-12 08/29/2020 08/30/2019, 0608/2018, 08/12/2017 DIABETES-HGBA1C EVERY 6 MONTHS 12/28/2020 06/28/2020, [...] of this encounter Implants Implanted Type Area Gun Examiner Device Identifier Shelf Expiration Date Model / Serial / Lot Marker Coronary [facility]-Sd - [id number] [place]planted:Qty[place] 1 [place] 12[place] [facility] [place]: Heart [employer] 10/13/2013 [facility] / / [id number] Sut Steel 6 M654g - [id number] Implanted:Qty: 5 on 12/26/2010 [place] [facility] [place] DO NOT USE 10/14/2015 M654G / / [id number] Band [place] 225-241 - [id number] Implanted:Qty: 1 on 12/26/2010 [place] [facility] [place] Chest [employer] 225-241 / / [id number] Lens Intraoc 17.5 - [id number] - [id number] Implanted:Qty: 1 on 02/07/2019 by Quincy Paiz MD at OR [facility] Right: Eye [employer] LOMB 08/14/2023 [id number] / [id number] / [id number] Lens Intraoc 17.0 - [id number] - [id number] Implanted:Qty: 1 on 03/01/2019 by Quincy Paiz MD at OR [facility] Left: Eye [employer]CH [employer] LOMB 09/12/2022 [id number] / [id number] / [id number] documented as of this encounter Visit Diagnoses Diagnosis PEPTIC ULCER NOS Peptic ulcer, unspecified site, unspecified as acute or chronic, without mention of hemorrhage, perforation, or obstruction documented in this encounter Advance Directives Documents on File Type Date Recorded 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
--- OUTSIDE RECORDS SUMMARY | 2022-11-16 13:14 | External Medical Summary | Summary of Care ---
Author Name Unknown Organization [place] [address] Care Team Providers Care Service Consultant Name Role Phone Smith Orozco MD Primary Care Provider [phone] Reason for Visit * Reason Comments Follow Up 6 week follow up. Re cent echo and blood work were good. Very little improvement in LE edema. Encounter Details Date Type Department Care Team Description 08/28/2020 Office Visit Cardiology [address] [place] [address] Alcon oLtt PA-C [address] [facility] [place] [address] [phone] Edema, unspecified type*; Essential hypertension with goal blood pressure less than 140/90; Old PA (myocardial infarction); Dyslipidemia, goal LDL below 70; Atherosclerosis of [place] coronary artery of [place] heart without angina pectoris; Statin intolerance; Type 2 diabetes mellitus with hemoglobin A1c goal of less than 8.0% ([facility]); Ischemic cardiomyopathy Allergies Active Allergy Reactions Severity Noted Date Comments Acetaminophen Renal complications 04/27/2009 Aspirin 08/13/2000 Stomach pain Cholestyramine 08/13/2000 Kidney pain Atorvastatin Calcium 04/28/2007 cramping Niacin Muscle pain 07/22/2007 Simvastatin Hives 08/13/2000 Ezetimibe 04/28/2007 Cramping ankles, turned feet inward documented as of this encounter (statuses as of 08/30/2020) Medications Medication Sig Dispensed Refills Start Date [...] DIRECTED,CAN MIX WITH PONDS 45 g 5 0 Active ONETOUCH ULTRA STRPIndications:T ype 2 diabetes mellitus with hemoglobin A1c goal of less than 8.0% (HCC) USE ONE TEST STRIP TO TEST BLOOD SUGAR LEVELS TWICE A DAY 200 Strip 5 0 Active OneTouch UltraSoft Lancets MISCIndications:T ype 2 diabetes mellitus with hemoglobin A1c goal of less than 8.0% (HCC) USE ONE LANCET TO TEST BLOOD SUGAR LEVELS TWICE A DAY 200 Each 3 0 Active metFORMIN HCl 1000 MG Oral Tablet (GLUCOPHAGE)Indic ations:Type 2 diabetes mellitus with diabetic nephropathy (HCC),Type 2 diabetes mellitus with hemoglobin A1c goal of less than 8.0% (HCC) Take 1 Tab by mouth 2 times a day with morning and evening meals. 180 Tab 1 0 Active Valsartan 320 MG Oral TabletIndications :Atherosclerosis of [place] coronary artery of [place] heart without angina pectoris,Primary hypertension Take 1 Tab by mouth daily. 90 Tab 1 0 Active Isosorbide Mononitrate ER 60 MG Oral Tablet Extended Release 24 Hour (Imdur) Take 1 Tab by mouth daily. In the morning 90 Tab 3 1 Active Furosemide 20 MG Oral Tablet (Lasix) Take 1 Tab by mouth daily. 30 Tab 5 1 Active Omeprazole 20 MG Oral Capsule Delayed Release (PriLOSEC)Indicat ions:Peptic ulcer TAKE 1 CAPSULE BY MOUTH EVERY DAY 90 Cap 1 1 Active Praluent 75 MG/ML Subcutaneous Solution Auto-injector (Alirocumab)Indic ations:Atheroscle rosis of [place] coronary artery of [place] heart without angina pectoris,Dyslipid emia, goal LDL below 70,Old PA (myocardial infarction),Stati n intolerance Inject 75 mg under the skin every 14 days. 3 mL 3 1 Active glipiZIDE ER 10 MG Oral Tablet Extended Release 24 Hour (Glucotrol XL)Indications:Ty pe 2 diabetes mellitus with hemoglobin A1c goal of less than 8.0% (HCC) TAKE 1 TABLET BY MOUTH TWICE A DAY 180 Tab 1 1 Active Finasteride 5 MG Oral Tablet (Proscar)Indicati ons:BPH with obstruction/lower urinary tract symptoms TAKE 1 TABLET BY MOUTH EVERY DAY 90 Tab 1 1 Active Terazosin HCl 2 MG Oral CapsuleIndication s:Atherosclerosis of [place] coronary artery of [place] heart without angina pectoris,BPH with obstruction/lower urinary tract symptoms,Essentia l hypertension with goal blood pressure less than 140/90 TAKE 1 CAPSULE BY MOUTH EVERYDAY AT BEDTIME 90 Cap 1 1 Active Jardiance 25 MG Oral Tablet Take 1 Tab by mouth daily. 0 1 Active amLODIPine Besylate 5 MG Oral Tablet (Norvasc)Indicati ons:Essential hypertension with goal blood pressure less than 140/90,Old PA (myocardial infarction) Take 0.5 Tabs by mouth daily. 90 Tab 3 1 Active Empagliflozin 10 MG Oral Tablet (Jardiance)Indica tions:Type 2 diabetes mellitus with stage 2 chronic kidney disease, without long-term current use of insulin (HCC) Take 1 Tab by mouth daily. 30 Tab 5 1 08/29/19 21 Discontinued(Med ication/Dose Changed) amLODIPine Besylate 5 MG Oral Tablet (Norvasc)Indicati ons:Essential hypertension with goal blood pressure less than 140/90,Old PA (myocardial infarction) Take 1 Tab by mouth daily. 90 Tab 3 1 08/29/19 21 Discontinued documented as of this encounter (statuses as of 08/30/2020) Active Problems Problem Noted Date Type 2 [...] to patient at prior appointment. Atherosclerosis of [place] co ronary artery of [place] heart without angina pectoris 11/30/2001 GENERAL OSTEOARTHROSIS Multiple pulmonary nodules Complex renal cyst Overview: 3.8 cm; L Old PA (myocardial infarction) documented as of this encounter (statuses as of 08/30/2020) Resolved Problems Problem Noted Date Resolved Date [employer] Other*[id number] 201004/22/2016 Overview: Study Titile: Genomics Markers for Patients with Cardiovascular Disease Project # [id number] PI: Amalia Kingsley MD Please call [phone] with study related questions HTN, goal below [...] as of this encounter (statuses as of 08/30/2020) Immunizations Name Administration Dates Next Due COVID-19 mRNA, LNP-s, No Pre serve, 2-Dose Series (Albumatic) 06/08/2020,05/18/2020 Pneumococcal Conjugate Vacc, 13 Valent (Prevnar) [...] Reading Time Taken Comments Blood Pressure 126/64 08/28/2020 10:55 AM EDT Pulse 68 08/28/2020 10:55 AM EDT Temperature 36.2 C (97.2 F) 08/28/2020 10:55 AM E DT Respiratory Rate 14 08/28/2020 10:55 AM EDT Oxygen Saturation - - Inhaled Oxygen Concentration - - Weight 62.9 kg (138 lb 9.6 oz) 08/28/2020 10:55 AM EDT Height - - Body Mass Index 23.06 03/01/2020 2:27 PM EST documented in this encounter Progress Notes * Alcon Lott PA-C - 08/28/2020 11:11 AM EDT History of Present Illness: Mr. Reynolds is a very pleasant 80 year old male who returns today for close cardiology follow-up. He notes mild bilateral lower extremity peripheral edema that minimally improves overnight but is does not resolve. He notes improvement in BP following the addition of Jardiance on 08/07/2020. His most recent metabolic panel was obtained at [facility] and is summarized below. No chest congestion, orthopnea, or PND. Weight is down 2 lb from last evaluation in this office. No angina. He has not experienced any change in his exercise tolerance or overall functional status. No sublingual nitroglycerin use. No tachypalpitations. No fevers or chills. No night sweats. No epistaxis. No hemoptysis. No melena or hematochezia. No dysuria. No hematuria. No rash. No headaches or unilateral complaints. No amaurosis fugax. Patient received COVID-19 vaccinations on May 18, 2020 and June 08, 2020. Patient Active Problem List Diagnosis Code GENERAL OSTEOARTHROSIS M15.9 Atherosclerosis of [place] coronary artery of [place] heart without angina pectoris I25.10 ADVANCE DIRECTIVE INFORMATION Type 2 diabetes mellitus with hemoglobin A1c goal of less than 8.0% ([facility]) E11.9 DYSLIPIDEMIA, GOAL LDL BELOW 70 E78.5 [...] and hypertension (HCC) E11.22, I12.9, N18.2 Old PA (myocardial infarction) I25.2 Past Surgical History: Inguinal hernia. CABG Social History: From [place]. Lives in [place] with his . Reformed smoker. 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 Complete Review of Systems is as stated [...] MOUTH TWICE A DAY 180 Tab 1 Praluent 75 MG/ML [...] daily. In the morning 90 Tab 3 metFORMIN HCl 1000 MG Oral Tablet (GLUCOPHAGE) Take 1 Tab by mouth 2 times a day with morning and evening meals. 180 Tab 1 Valsartan 320 MG Oral Tablet Take [...] needed) 30 5 PHYSICAL EXAMINATION BP 126/64 | Pulse 68 | Temp 36.2 C (97.2 F) | Resp 14 | Wt 62.9 kg (138 lb 9.6 oz) | BMI 23.06 kg/m | BSA 1.7 m | BP on my evaluation was 110/58 via the right arm using the wall mounted cuff General: A&Ox3. NAD. HEENT: Normocephalic. Atraumatic. PER. Conjunctiva pink, sclera clear. Neck: Bilateral carotid bruits. No JVD. No HJR. Heart: Irregular with occasional ectopic beat. Heart rate in the 60s. Grade II/ systolic ejectionmurmur. No rub. No gallop. PMI is nondisplaced. Lungs: Clear to auscultation. Abdomen: +BS. No abdominal bruits. Soft. Nontender. No masses or organomegaly. Extremities: Trace to 1+ pitting edema more towards the lower end of the estimate. No clubbing. No cyanosis. Limited neurological examination [...] present. Mild mitral regurgitation. Mild tricuspid regurgitation Metabolic panel obtained at [facility] on August 21, 2020 demonstrated the following: Sodium 140. Potassium 4.3. Chloride 107. Bicarb 26. BUN 33. Creatinine 1.21. Calcium 9.4 ASSESSMENT: 1. ASCVD 1. Prior inferior PA in 1994 managed at [facility]. 2. Catheterization in 2010 following abnormal nuclear [...] patient. Plan as outlined below. RECOMMENDATIONS/PLAN: 1. Decrease amlodipine dosing from 5 mg/day to 2.5 mg/day. 2. Patient encouraged to stay well hydrated. 3. Continue all other medications/therapies as prescribed. 4. Routine Cardiology follow-up in 4-6 months or as needed. 5. ER with emergencies. Alcon Lott PA-C Department of Cardiology This chart was completed in part utilizing [employer] Speech Voice Recognition Software. Grammatical errors, random [...] Notes * Juan M Addison LPN - 08/28/2020 10:54 AM EDT Patient identified by full name and date of Chief Complaint Patient presents with Follow Up 6 week follow up. Recent echo and blood work were good. Very little improvement in LE edema. Examination Room: 3 Name: Cl Reynolds Date of : (1940). Reason for Visit: Follow up Interim Hospitalization(s): Denies Problems/Concerns: See chief complaint Chest Pain/SOB: See chief complaint [facility] you can [...] 11/01/2020 Office Visit Dermatology Kim Kong MD [address] [place], [place] [address] [address] [phone] 01/22/2021 Office Visit Family Medicine Smith Orozco MD [address] [place] [address] [place] [address] [phone] 02/28/2021 Office Visit Cardiology Alcon Lott PA-C [address] [facility] [place] [address] [phone] Health Maintenance Due Date Last Done Comments [...] of this encounter Implants Implanted Type Area Dormitory Supervisor Device Identifier Shelf Expiration Date Model / Serial / Lot Marker Coronary Am-Sd - [id number] Implanted:Qty: 1 on 12/26/2010 at [place] [facility] [place]/A: Heart [employer] 10/13/2013 [employer]-SD / / [id number] Sut Steel 6 M654g - [id number] Implanted:Qty: 5 on 12/26/2010 at [place] [facility] Chest DO NOT USE 10/14/2015 M654G / / [id number] Band Ankur 225-861 - [id number] Implanted:Qty: 1 on 12/26/2010 at [place] [facility] Chest [employer] 225-475 / / [id number] Lens Intraoc 17.5 - [id number] - [id number] Implanted:Qty: 1 on 02/07/2019 by Quincy Paiz MD at OR [facility] Right: Eye [employer]OM[employer] 08/14/2023 [id number] / [id number] / [id number] Lens Intraoc 17.0 - [id number] - [id number] Implanted:Qty: 1 on 03/01/2019 by Quincy Paiz MD at OR [facility] Left: Eye [employer] LOMB 09/12/2022 [id number] / [id number] / [id number] documented as of this encounter Visit Diagnoses Diagnosis Edema, unspecified type- Primary Essential hypertension with goal blood pressure less than 140/90 Old PA (myocardial infarction) Old myocardial infarction Dyslipidemia, goal LDL below 70 Other and unspecified hyperlipidemia Atherosclerosis of [place] coronary artery of [place] heart without angina pectoris Statin intolerance Other drug allergy Type 2 diabetes mellitus with hemoglobin A1c goal of less than 8.0% (HCC) Ischemic cardiomyopathy Other specified forms of chronic ischemic heart disease documented in this encounter Advance Directives Documents on File Type Date Recorded Patient Milieu Counselor Expl 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
--- OUTSIDE RECORDS SUMMARY | 2022-11-16 13:14 | External Medical Summary | Summary of Care ---
Author Name Unknown Organization [place] [address] Care Team Providers Care Paraprofessional Interpreter Name Role Phone Smith Orozco MD Primary Care Provider Reason for Visit * Reason Comments Medication Refill Encounter Details Date Type Department Care Team Description 07/05/2020 [address] [facility] [place] [address] Medication, Mtm Specialty Refill, [address] [place] [address] [phone] Encounter for medication refill* Allergies Active Allergy Reactions Severity Noted Date Comments Acetaminophen Renal complications 04/27/2009 Aspirin 08/13/2000 Stomach pain Cholestyramine 08/13/2000 Kidney pain Atorvastatin Calcium 04/28/2007 cramping Niacin Muscle pain 07/22/2007 Simvastatin Hives 08/13/2000 Ezetimibe 04/28/2007 Cramping ankles, turned feet inward documented as of this encounter (statuses as of 07/05/2020) Medications Medication Sig Dispensed Refills Start Date [...] A DAY 200 Each 3 11/15/2019 Active Omeprazole 20 MG Oral Capsule Delayed Release (PriLOSEC)Indication s:Peptic ulcer Take 1 Cap by mouth daily. 90 Cap 1 01/16/2020 Active glipiZIDE ER 10 MG Oral Tablet [...] HCl 2 MG Oral CapsuleIndications:A therosclerosis of [place] coronary artery of [place] heart without angina pectoris,BPH with obstruction/lower urinary tract symptoms,Essential hypertension with goal blood pressure less than 140/90 Take 1 Cap by mouth at bedtime. 90 Cap 1 03/01/2020 Active Valsartan 320 MG Oral TabletIndications:At herosclerosis of [place] coronary artery of [place] heart without angina pectoris,Primary hypertension Take 1 Tab by mouth daily. 90 Tab 1 03/01/2020 Active amLODIPine Besylate 5 MG Oral Tablet (Norvasc)Indications :Essential hypertension with goal blood pressure less than 140/90,Old [place] (myocardial infarction) Take 1 Tab by mouth [...] MG/ML Subcutaneous Solution Auto-injector (Alirocumab)Indicati ons:Atherosclerosis of [place] coronary artery of [place] heart without angina pectoris,Dyslipidemi a, goal LDL below 70,Old [place] (myocardial infarction),Type 2 diabetes mellitus with hemoglobin A1c goal of less than 8.0% ([facility]),Statin intolerance Inject 75 mg under the skin every 14 days. 3 mL 3 06/29/2020 Active documented as of this encounter (statuses as of 07/05/2020) Active Problems Problem Noted Date Type 2 [...] to patient at prior appointment. Atherosclerosis of [place] co ronary artery of [place] heart without angina pectoris 11/30/2001 GENERAL OSTEOARTHROSIS Multiple pulmonary nodules Complex renal cyst Overview: 3.8 cm; L Old [place] (myocardial infarction) documented as of this encounter (statuses as of 07/05/2020) Resolved Problems Problem Noted Date Resolved Date [employer] Cardio Research Other*[id number] 201004/22/2016 Overview: Study Titile: Genomics Markers for Patients with Cardiovascular Disease Project # [id number] PI: Amalia Kingsley MD Please call [phone] with study related questions HTN, goal below [...] as of this encounter (statuses as of 07/05/2020) Immunizations Name Administration Dates Next Due Pneumococcal [...] as of this encounter Progress Notes * Beatris Mcgraw PHARM Tech - 07/05/2020 3:39 PM EDT Pt no longer wants to get this refilled through us. Beatris Mcgraw Cad Programmer [facility] 07/05/2020, 3:41 PM documented in this encounter Plan of Treatment Upcoming Encounters Date Type Specialty Care Team Description 07/12/2020 Office Visit Cardiology Alcon Lott PA-C [address] [facility] [place] [address] [phone] 08/20/2020 Office Visit Internal Medicine Smith Orozco MD [address] [place] [address] [place] [address] 11/01/2020 Office Visit Dermatology Kim Kong MD [address] [facility] [place] [address] [phone] 11/06/2020 Office Visit Cardiology Alcon Lott PA-C [facility] [place] [address] [phone] Health Maintenance Due Date Last Done Comments [...] of this encounter Implants Implanted Type Area Solar Installation Foreman Device Identifier Shelf Expiration Date Model / Serial / Lot Marker Coronary [facility] - [id number] Implanted:Qty: 1 on 12/26/2010 at OR [facility] [place] N/A: Heart [employer] 10/13/2013 [facility]-SD / / [id number] Sut Steel 6 M654g - [id number] Implanted:Qty: 5 on 12/26/2010 at OR [facility] [place] Chest DO NOT USE 10/14/2015 M654G / / [id number] Alonso Pascual 225-000 - [id number] Implanted:Qty: 1 on 12/26/2010 at OR [facility] [place] Chest [employer] 225-241 / / [id number] Lens Intraoc 17.5 - [id number] - [id number] Implanted:Qty: 1 on 02/07/2019 by Quincy Paiz MD at OR [facility] Right: Eye [employer]OMB 08/14/2023 [id number] / [id number] / [id number] Lens Intraoc 17.0 - [id number] - [id number] Implanted:Qty: 1 on 03/01/2019 by Quincy Paiz MD at OR [facility] Left: Eye [employer]CH [employer]OMB 09/12/2022 [id number] / [id number] / [id number] documented as of this encounter Visit Diagnoses Diagnosis Encounter for medication refill- Primary Issue of repeat prescriptions documented in this encounter Advance Directives Documents on File Type Date Recorded Patient Medical Biller Coder Expl 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
--- OUTSIDE RECORDS SUMMARY | 2022-11-16 13:14 | External Medical Summary | Summary of Care ---
Author Name Unknown Organization [place] [address] Care Team Providers Care Telephone Interceptor Operator Name Role Phone Smith Orozco MD Primary Care Provider Reason for Visit * Reason Comments eRx-Medication Refill Encounter Details Date Type Department Care Team Description 08/24/2020 Refill Family Medicine [address] [place] [address] Smith Orozco MD [address] [place] [address] [place] [address] BPH with obstruction/lower urinary tract symptoms; Atherosclerosis of [place] coronary artery of [place] heart without angina pectoris; Essential hypertension with goal blood pressure less than 140/90 Allergies Active Allergy Reactions Severity Noted Date Comments Acetaminophen Renal complications 04/27/2009 Aspirin 08/13/2000 Stomach pain Cholestyramine 08/13/2000 Kidney pain Atorvastatin Calcium 04/28/2007 cramping Niacin Muscle pain 07/22/2007 Simvastatin Hives 08/13/2000 Ezetimibe 04/28/2007 Cramping ankles, turned feet inward documented as of this encounter (statuses as of 08/27/2020) Medications Medication Sig Dispensed Refills Start Date [...] A DAY 200 Strip 5 11/11/2019 Active InSeT SystemsTouch UltraSoft Lancets MISCIndications:T ype 2 diabetes mellitus [...] evening meals. 180 Tab 1 03/01/2020 Active Valsartan 320 MG Oral TabletIndications :Atherosclerosis of [place] coronary artery of [place] heart without angina pectoris,Primary hypertension Take 1 [...] Subcutaneous Solution Auto-injector (Alirocumab)Indic ations:Atheroscle rosis of [place] coronary artery of [place] heart without angina pectoris,Dyslipid emia, goal LDL [...] less than 140/90,Old [place] (myocardial infarction) Take 1 Tab by mouth [...] HCl 2 MG Oral CapsuleIndication s:Atherosclerosis of [place] coronary artery of [place] heart without angina pectoris,BPH with obstruction/lower urinary tract symptoms,Essentia l hypertension with goal blood pressure less than 140/90 TAKE 1 CAPSULE BY MOUTH EVERYDAY AT BEDTIME 90 Cap 1 08/27/2020 Active Finasteride 5 MG Oral Tablet (PROSCAR)Indicati ons:BPH with obstruction/lower urinary tract symptoms Take 1 Tab by mouth daily. 90 Tab 1 03/01/2020 1 Discontinued Terazosin HCl 2 MG Oral CapsuleIndication s:Atherosclerosis of [place] coronary artery of [place] heart without angina pectoris,BPH with obstruction/lower urinary tract symptoms,Essentia l hypertension with goal blood pressure less than 140/90 Take 1 Cap by mouth at bedtime. 90 Cap 1 03/01/2020 1 Discontinued documented as of this encounter (statuses as of 08/27/2020) Active Problems Problem Noted Date Type 2 [...] to patient at prior appointment. Atherosclerosis of [place] co ronary artery of [place] heart without angina pectoris 11/30/2001 GENERAL OSTEOARTHROSIS Multiple pulmonary nodules Complex renal cyst Overview: 3.8 cm; L Old [place] (myocardial infarction) documented as of this encounter (statuses as of 08/27/2020) Resolved Problems Problem Noted Date Resolved Date Genomics Cardio Research Other*[id number] 201004/22/2016 Overview: Study Titile: Genomics Markers for Patients with Cardiovascular Disease Project # [id number] PI: Amalia Kingsley MD Please call [phone] with study related questions HTN, goal below [...] as of this encounter (statuses as of 08/27/2020) Immunizations Name Administration Dates Next Due COVID-19 mRNA, LNP-s, No Pre serve, 2-Dose Series (Xanic) 06/08/2020,05/18/2020 Pneumococcal Conjugate Vacc, 13 Valent (Prevnar) [...] encounter Miscellaneous Notes * Telephone Encounter - Gautam Tubbs PA-C - 08/27/2020 11:43 AM EDT Signed Prescriptions: Disp Refills Finasteride 5 MG Oral Tablet (Proscar) 90 Tab 1 Sig: TAKE 1 TABLET BY MOUTH EVERY DAY Authorizing Provider: GAUTAM TUBBS Terazosin HCl 2 MG Oral Capsule 90 Cap 1 Sig: TAKE 1 CAPSULE BY MOUTH EVERYDAY AT BEDTIME Authorizing Provider: GAUTAM TUBBS < BR> * Telephone Encounter - Matthew Mena RPh - 08/24/2020 2:42 PM EDT Pending Prescriptions: Disp Refills Finasteride 5 MG Oral Tablet (Proscar) [P*90 Tab 1 Sig: TAKE 1 TABLET BY MOUTH EVERY DAY Terazosin HCl 2 MG Oral Capsule [Pharmacy*90 Cap 1 Sig: TAKE 1 CAPSULE BY MOUTH EVERYDAY AT BEDTIME * Telephone Encounter - Matthew Mena RPh - 08/24/2020 2:42 PM EDT [facility] to [facility] refills for this class of medication per refillprotocol. Please approve if appropriate. Thanks, Matthew Mena PharmJomarD. Clinical Pharmacist Telepharmacy 08/24/2020, 2:42 PM Pending Prescriptions: Disp Refills Finasteride 5 MG Oral Tablet (Proscar) [P*90 Tab 1 Sig: TAKE 1 TABLET BY MOUTH EVERY DAY Terazosin HCl 2 MG Oral Capsule [Pharmacy*90 Cap 1 Sig: TAKE 1 CAPSULE BY MOUTH EVERYDAY AT BEDTIME Last Office/Telemedicine Visit: 08/20/2020 Next Office Visit: 01/22/2021 Scheduled Provider(s): Smith Orozco MD If no future appointments scheduled, and last appointment is greater than a year ago, please schedule patient for a follow-up appointment Last date the medication was ordered: 03/01/2020 Pharmacy: [id number] [facility] Is this request for a controlled substance?No [...] Cardiology Alcon Lott PA-C [address] [place] [address] [phone] 11/01/2020 Office Visit Dermatology Kim Kong MD [address] [facility] [address] [phone] 11/06/2020 Office Visit Cardiology Alcon Lott PA-C [address] [place] [address] [phone] 01/22/2021 Office Visit Family Medicine Smith Orozco MD [address] [place] [address] [place] [address] [phone] Health Maintenance Due Date Last Done Comments [...] of this encounter Implants Implanted Type Area Home Health Clinician Device Identifier Shelf Expiration Date Model / Serial / Lot Marker Coronary Am-Sd - [id number] Implanted:Qty: 1 on 12/26/2010 at OR [facility] N/A: Heart [employer] 10/13/2013 AM-SD / / [id number] Sut Steel 6 M654g - [id number] Implanted:Qty: 5 on 12/26/2010 at OR [facility] Chest DO NOT USE 10/14/2015 M654G / / [id number] [facility] 225-241 - [id number] Implanted:Qty: 1 on 12/26/2010 at OR [facility] Chest [employer] 225-241 / / [id number] Lens Intraoc 17.5 - [id number] - [id number] Implanted:Qty: 1 on 02/07/2019 by Quincy Paiz MD at OR [facility] Right: Eye [employer]CH [employer] LOMB 08/14/2023 [id number] / [id number] / [id number] Lens Intraoc 17.0 - [id number] - [id number] Implanted:Qty: 1 on 03/01/2019 by Quincy Paiz MD at OR [facility] Left: Eye BAUSCH & LOMB 09/12/2022 [id number] / [id number] / [id number] documented as of this encounter Visit Diagnoses Diagnosis BPH with obstruction/lower urinary tract symptoms Hypertrophy of prostate with urinary obstruction and other lower urinary tract symptoms (LUTS) Atherosclerosis of [place] coronary artery of [place] heart without angina pectoris Essential hypertension with goal blood pressure less than 140/90 documented in this encounter Advance Directives Documents on File Type Date Recorded Patient Senior Compliance Analyst Expl 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
--- OUTSIDE RECORDS SUMMARY | 2022-11-16 13:14 | External Medical Summary | Summary of Care ---
Author Name Unknown Organization [place] [address] Care Team Providers Care Mathematical Scientist Name Role Phone Smith Orozco MD Primary Care Provider Reason for Visit * Reason Onset Date Comments Advice 07/16/2020 Encounter Details Date Type Department Care Team Description 07/16/2020 Telephone Family Medicine [address] [address] Smith Orozco MD [address] [place] [address] [place] [address] Advice Allergies Active Allergy Reactions Severity Noted Date Comments Acetaminophen Renal complications 04/27/2009 Aspirin 08/13/2000 Stomach pain Cholestyramine 08/13/2000 Kidney pain Atorvastatin Calcium 04/28/2007 cramping Niacin Muscle pain 07/22/2007 Simvastatin Hives 08/13/2000 Ezetimibe 04/28/2007 Cramping ankles, turned feet inward documented as of this encounter (statuses as of 07/19/2020) Medications Medication Sig Dispensed Refills Start Date [...] HCl 2 MG Oral CapsuleIndication s:Atherosclerosis of [place] coronary artery of [place] heart without angina pectoris,BPH with obstruction/lower urinary tract symptoms,Essentia l hypertension with goal blood pressure less than 140/90 Take 1 Cap by mouth at bedtime. 90 Cap 1 03/01/2020 Active Valsartan 320 MG Oral TabletIndications :Atherosclerosis of [place] coronary artery of [place] heart without angina pectoris,Primary hypertension Take 1 [...] Subcutaneous Solution Auto-injector (Alirocumab)Indic ations:Atheroscle rosis of [place] coronary artery of [place] heart without angina pectoris,Dyslipid emia, goal LDL below 70,Old [place] (myocardial infarction),Stati n intolerance Inject 75 mg [...] than 140/90,Old [place] (myocardial infarction) Take 1 Tab by mouth daily. 90 Tab 3 05/03/2020 1 Discontinued documented as of this encounter (statuses as of 07/19/2020) Active Problems Problem Noted Date Type 2 [...] to patient at prior appointment. Atherosclerosis of [place] co ronary artery of [place] heart without angina pectoris 11/30/2001 GENERAL OSTEOARTHROSIS Multiple pulmonary nodules Complex renal cyst Overview: 3.8 cm; L Old [place] (myocardial infarction) documented as of this encounter (statuses as of 07/19/2020) Resolved Problems Problem Noted Date Resolved Date Genomics Cardio Research Other*[id number] 201004/22/2016 Overview: Study Titile: Genomics Markers for Patients with Cardiovascular Disease Project # [id number] PI: Amalia Kingsley MD Please call [phone] with study related questions HTN, goal below [...] as of this encounter (statuses as of 07/19/2020) Immunizations Name Administration Dates Next Due Pneumococcal [...] encounter Miscellaneous Notes * Telephone Encounter - Komal Shearer LPN - 07/19/2020 2:08 PM EDT Pt said he is seeing a clinical staff educator and wants to wait before takng this jardiance. * Telephone Encounter - Komal Shearer LPN - 07/17/2020 9:14 AM EDT Lm for pt to call. * Telephone Encounter - Smith Orozco MD - 07/16/2020 3:52 PM EDT We can add Jardiance. He is 7.6, not that bad. Continue the other pills and take this once a day. * Telephone Encounter - Komal Shearer LPN - 07/16/2020 3:08 PM EDT Refer to [facility]? * Telephone Encounter - Cheyenne Ansari OSA - 07/16/2020 12:37 PM EDT Pt is calling requesting to see someone about his high diabetes. Wants to speak w/ someone to control this. Pt states he is not seeing [facility] for this. Please advise- Pt's call back # is [phone] documented in this encounter Plan of Treatment Upcoming Encounters Date Type Specialty Care Team Description 07/24/2020 Cardiac Studies Cardiac Studies [address] [place] [address] [phone] 08/20/2020 Office Visit Family Medicine Smith Orozco MD [address] [place] [address] [place] [address] [phone] 08/28/2020 Office Visit Cardiology Alcon Lott PA-C [address] [facility] [place] [address] [phone] 11/01/2020 Office Visit Dermatology Kim Kong MD [facility] [place] [address] [phone] 11/06/2020 Office Visit Cardiology Alcon Lott [facility] [place] [address] [phone] Health Maintenance Due Date Last Done Comments [...] of this encounter Implants Implanted Type Area Aviation Operations Specialist Device Identifier Shelf Expiration Date Model / Serial / Lot Marker Coronary Amgm-Sd - [id number] Implanted:Qty: 1 on 12/26/2010 [place] [facility] [place]A: Heart [employer] 10/13/2013 AMGM-SD / / [id number] Sut Steel 6 M654g - [id number] Implanted:Qty: 5 on 12/26/2010 at [place] [facility] Chest DO NOT USE 10/14/2015 M654G / / [id number] Band [place] 225-804 - [id number] Implanted:Qty: 1 on 12/26/[address] [facility] [employer] 225-241 / / [id number] Lens Intraoc 17.5 - [id number] - [id number] Implanted:Qty: 1 on 02/07/2019 by Quincy Paiz MD at OR [facility] Right: Eye [employer] LOMB 08/14/2023 [id number] / [id number] / [id number] Lens Intraoc 17.0 - [id number] - [id number] Implanted:Qty: 1 on 03/01/2019 by Quincy Paiz MD at OR [facility] Left: Eye BAUSCH & LOMB 09/12/2022 [id number] / [id number] / [id number] documented as of this encounter Visit Diagnoses Diagnosis Type 2 diabetes mellitus with stage 2 chronic kidney disease, without long-term current use of insulin (HCC)- Primary documented in this encounter Advance Directives Documents on File Type Date Recorded Patient Quality Assurance Expl 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
--- OUTSIDE RECORDS SUMMARY | 2022-11-16 13:14 | External Medical Summary ---
Author Name Unknown Address Unknown Organization K01:[facility] - [address] [place] [address] Laboratory Report Ordering Provider Test Date Status VITOR BRANDT 07/12/2020 09:54:07 Final Observation Date Value Abnormality Reference (Units ) Status Vitamin B12 07/12/2020 09:54:07 1002 232-1,24 5 (pg/mL) Final Performing Location [facility] - [address] [place] [address]
--- OUTSIDE RECORDS SUMMARY | 2022-11-16 13:14 | External Medical Summary | Summary of Care ---
Author Name Unknown Organization [place] [address] Care Team Providers Care Code Enforcement Officer Name Role Phone Smith Orozco MD Primary Care Provider Reason for Visit * Reason Comments eRx-Medication Refill Encounter Details Date Type Department Care Team Description 07/18/2020 Refill Cardiology [address] [place] [id number] Karly Adler PA-C [address] [facility] [place] [address] [phone] Essential hypertension with goal blood pressure less than 140/90; Old [place] (myocardial infarction) Allergies Active Allergy Reactions Severity Noted Date Comments Acetaminophen Renal complications 04/27/2009 Aspirin 08/13/2000 Stomach pain Cholestyramine 08/13/2000 Kidney pain Atorvastatin Calcium 04/28/2007 cramping Niacin Muscle pain 07/22/2007 Simvastatin Hives 08/13/2000 Ezetimibe 04/28/2007 Cramping ankles, turned feet inward documented as of this encounter (statuses as of 07/18/2020) Medications Medication Sig Dispensed Refills Start Date [...] A DAY 200 Strip 5 11/11/2019 Active ZeePearlTouch UltraSoft Lancets MISCIndications:T ype 2 diabetes mellitus [...] HCl 2 MG Oral CapsuleIndication s:Atherosclerosis of [place] coronary artery of [place] heart without angina pectoris,BPH with obstruction/lower urinary tract symptoms,Essent[place] l hypertension with goal blood pressure less than 140/90 Take 1 Cap by mouth at bedtime. 90 Cap 1 03/01/2020 Active Valsartan 320 MG Oral TabletIndications :Atherosclerosis of [place] coronary artery of [place] heart without angina pectoris,Primary hypertension Take [...] Subcutaneous Solution Auto-injector (Alirocumab)Indic ations:Atheroscle rosis of [place] coronary artery of [place] heart without angina pectoris,Dyslipid emia, goal LDL below 70,Old [place] (myocardial infarction),Stati n intolerance Inject 75 mg [...] than 140/90,Old [place] (myocardial infarction) Take 1 Tab by mouth daily. 90 Tab 3 07/18/2020 Active amLODIPine Besylate 5 MG Oral Tablet (Norvasc)Indicati ons:Essential hypertension with goal blood pressure less than 140/90,Old [place] (myocardial infarction) Take 1 Tab by mouth daily. 90 Tab 3 05/03/2020 1 Discontinued documented as of this encounter (statuses as of 07/18/2020) Active Problems Problem Noted Date Type 2 [...] to patient at prior appointment. Atherosclerosis of [place] co ronary artery of [place] heart without angina pectoris 11/30/2001 GENERAL OSTEOARTHROSIS Multiple pulmonary nodules Complex renal cyst Overview: 3.8 cm; L Old [place] (myocardial infarction) documented as of this encounter (statuses as of 07/18/2020) Resolved Problems Problem Noted Date Resolved Date Genomics Cardio Research Other*[id number] 201004/22/2016 Overview: Study Titile: Genomics Markers for Patients with Cardiovascular Disease Project # [id number] PI: Amalia Kingsley MD Please call [phone] with study related questions HTN, goal below [...] as of this encounter (statuses as of 07/18/2020) Immunizations Name Administration Dates Next Due Pneumococcal [...] Telephone Encounter - Karly Adler PA-C - 07/18/2020 2:03 PM EDT Signed Prescriptions: Disp Refills amLODIPine Besylate 5 MG Oral Tablet (Norv*90 Tab 3 Sig: Take 1 Tab by mouth daily. Authorizing Provider: KARLY ADLER * Telephone Encounter - Suzan Alcantar RN - 07/18/2020 12:36 PM EDT Pending Prescriptions: Disp Refills amLODIPine Besylate 5 MG Oral Tablet (Nor*90 Tab 3 Sig: Take 1 Tab by mouth daily. * Telephone Encounter - Suzan Alcantar RN - 07/18/2020 12:35 PM EDT Pending Prescriptions: Disp Refills amLODIPine Besylate 5 MG Oral Tablet (Nor*180 Tab1 Sig: TAKE 1 TABLET BY MOUTH TWICE A DAY Last Office/Telemedicine Visit: 10/13/2019 Next Office Visit: 08/28/2020 Scheduled Provider(s): Karly Adler PA-C If no future appointments scheduled, and last appointment is greater than a year ago, please schedule patient for a follow-up appointment Last date the medication was ordered: Pharmacy: [id number] Is this request for a controlled [...] Team Description 07/24/2020 Cardiac Studies Cardiac Studies [address] [place] [address] [phone] 08/20/2020 Office Visit Family Medicine Smith Orozco MD [address] [place] [address] [place] [address] [phone] 08/28/2020 Office Visit Cardiology Karly Adler PA-C [address] [place] [address] [phone] 11/01/2020 Office Visit Dermatology Kim Kong MD [address] [place] [address] [place] [address] [phone] 11/06/2020 Office Visit Cardiology Karly Adler PA-C [address] [place] [address] [phone] Health Maintenance Due Date Last Done Comments [...] of this encounter Implants Implanted Type Area Retail Delivery Driver Device Identifier Shelf Expiration Date Model / Serial / Lot Marker [facility]-Sd - [id number] Implanted:Qty: 1 on 12/26/2010 at OR [facility] N/A: Heart [employer] 10/13/2013 [facility]-SD / / [id number] Sut Steel 6 M654g - [id number] Implanted:Qty: 5 on 12/26/2010 at OR [facility] Chest DO NOT USE 10/14/2015 M654G / / [id number] Alonso Pascual 225-040 - [id number] Implanted:Qty: 1 on 12/26/2010 at OR [facility] Chest [employer] 225-697 / / [id number] Lens Intraoc 17.5 - [id number] - [id number] Implanted:Qty: 1 on 02/07/2019 by Quincy Paiz MD at OR [facility] Right: Eye [employer]USCH [employer] LOMB 08/14/2023 [id number] / [id number] / [id number] Lens Intraoc 17.0 - [id number] - [id number] Implanted:Qty: 1 on 03/01/2019 by Quincy Paiz MD at OR [facility] Left: Eye BAUSCH & LOMB 09/12/2022 [id number] / [id number] / [id number] documented as of this encounter Visit Diagnoses Diagnosis Essential hypertension with goal blood pressure less than 140/90 Old [place] (myocardial infarction) Old myocardial infarction documented in this encounter Advance Directives Documents on File Type Date Recorded Patient Manager Program Expl 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
--- OUTSIDE RECORDS SUMMARY | 2022-11-16 13:15 | External Medical Summary | Summary of Care ---
Author Name Unknown Organization [place] [address] Care Team Providers Care Asian Studies Program Chair Name Role Phone Smith Orozco MD Primary Care Provider + [phone] Reason for Visit * Reason Comments Follow Up Encounter Details Date Type Department Care Team Description 06/28/2020 Office Visit Cardiology, [facility] [address] [place] [address] Anson Banegas DO [address] [place] [place] [address] [phone] Ischemic cardiomyopathy*; Type 2 diabetes mellitus with hemoglobin A1c goal of less than 8.0% ([facility]); Atherosclerosis of nikolski coronary artery of nikolski heart without angina pectoris; Dyslipidemia, goal LDL below 70; Old MN (myocardial infarction); Statin intolerance; Essential hypertension with goal blood pressure less than 140/90 Allergies Active Allergy Reactions Severity Noted Date Comments Acetaminophen Renal complications 04/27/2009 Aspirin 08/13/2000 Stomach pain Cholestyramine 08/13/2000 Kidney pain Atorvastatin Calcium 04/28/2007 cramping Niacin Muscle pain 07/22/2007 Simvastatin Hives 08/13/2000 Ezetimibe 04/28/2007 Cramping ankles, turned feet inward documented as of this encounter (statuses as of 06/28/2020) Medications Medication Sig Dispensed Refills Start Date [...] HCl 2 MG Oral CapsuleIndications:A therosclerosis of nikolski coronary artery of nikolski heart without angina pectoris,BPH with obstruction/lower urinary tract symptoms,Essential hypertension with goal blood pressure less than 140/90 Take 1 Cap by mouth at bedtime. 90 Cap 1 03/01/2020 Active Valsartan 320 MG Oral TabletIndications:At herosclerosis of nikolski coronary artery of nikolski heart without angina pectoris,Primary hypertension Take 1 Tab by mouth daily. 90 Tab 1 03/01/2020 Active amLODIPine Besylate 5 MG Oral Tablet (Norvasc)Indications :Essential hypertension with goal blood pressure less than 140/90,Old MN (myocardial infarction) Take 1 Tab by mouth daily. 90 Tab 3 05/03/2020 Active Isosorbide Mononitrate ER 60 MG Oral Tablet Extended Release 24 Hour (Imdur) Take 1 Tab by mouth daily. In the morning 90 Tab 3 05/03/2020 Active Praluent 75 MG/ML Subcutaneous Solution Auto-injector (Alirocumab)Indicati ons:Atherosclerosis of nikolski coronary artery of nikolski heart without angina pectoris,Dyslipidemi a, goal LDL below 70,Old MN (myocardial infarction),Type 2 diabetes mellitus with hemoglobin A1c goal of less than 8.0% ([facility]),Statin intolerance Inject 75 mg under the skin every 14 days. 3 mL 3 06/04/2020 Active Furosemide 20 MG Oral Tablet (Lasix) Take 1 Tab by mouth daily. 30 Tab 5 06/28/2020 Active documented as of this encounter (statuses as of 06/28/2020) Active Problems Problem Noted Date Type 2 [...] as of this encounter (statuses as of 06/28/2020) Resolved Problems Problem Noted Date Resolved Date [employer] Other*[id number] 201004/22/2016 Overview: Study Titile: Genomics Markers for Patients with Cardiovascular Disease Project # [id number] PI: Baljinder Hung MD Please call [phone] with study related questions HTN, goal below [...] as of this encounter (statuses as of 06/28/2020) Immunizations Name Administration Dates Next Due Pneumococcal [...] Sign Reading Time Taken Comments Blood Pressure 142/86 06/28/2020 10:52 AM EDT Pulse 66 06/28/2020 10:52 AM EDT Temperature 36.6 C (97.9 F) 06/28/2020 10:52 AM E DT Respiratory Rate 12 06/28/2020 10:52 AM EDT Oxygen Saturation - - Inhaled Oxygen Concentration - - Weight 65.1 kg (143 lb 8 oz) 06/28/2020 10:52 AM EDT Height - - Body Mass Index 23.88 03/01/2020 2:27 PM EST documented in this encounter Progress Notes * Anson Banegas, DO - 06/28/2020 11:15 AM EDT Cardiology Outpatient Follow-up Cl Reynolds is a 79 year old male who is seen for follow-up of hypertension. HPI: This is a 79-year-old male patient with a history of ischemic heart disease dating back to 1994. Heis a type 2 diabetic with an intolerance to statin medications and was recently started on Praluent. He has difficult to control hypertension and has an intolerance to beta-blockers due to bradycardia. He has been treated with vasodilators including valsartan, amlodipine, isosorbide mononitrate andis on terazosin for his prostate. He has been having problems with lower extremity edema and recently his amlodipine dosage was decreased and the isosorbide mononitrate was added. The patient has hadno relief in regard to his lower extremity edema and states it actually has worsened since the change in medications. He also monitors his blood pressure closely and this soon as he had the change inmedication his blood pressure has been consistently in the 140 to 160 range systolic. He has no cardiac complaints today. Past Medical History: Diagnosis Date Acute MN, inferior wall, subsequent episode of care ([facility]) 1994 BPH with obstruction/lower urinary tract symptoms 11/01/2009 CKD (chronic kidney disease) stage 2, GFR 60-89 ml/min Coronary atherosclerosis of nikolski coronary artery 11/30/2001 DM type 2, goal A1c below 7 Elevated PSA 09/30/2017 PSA 7.15 Examination of eyes and vision 09/20/13 no diabetic or hypertensive retinopathy Generalized osteoarthritis HTN, goal below 140/90 Mixed dyslipidemia Multiple pulmonary nodules 03/20/13 Old MN (myocardial infarction) 1994 Peptic ulcer Renal mass, left 2014 3.8 cm Type 2 diabetes mellitus with hemoglobin A1c goal of less than 8.0% ([facility]) 01/11/2009 Per Diabetes Taxonomy. ICD-10 update of inactive term Patient Active Problem List Diagnosis Code GENERAL OSTEOARTHROSIS M15.9 Atherosclerosis of nikolski coronary artery of nikolski heart without angina pectoris I25.10 ADVANCE DIRECTIVE [...] I12.9, N18.2 Old MN (myocardial infarction) I25.2 Past Surgical History: Procedure Laterality Date CABG, ARTERIAL, SINGLE 12/26/2010 CORONARY ARTERY BYPASS GRAFT USING ARTERY 1 GRAFT performed by BERTHA SENIOR at OR [facility] CABG, ARTERY-VEIN, THREE 12/26/2010 CORONARY ARTERY BYPASS GRAFT ARTERIAL AND VENOUS 3 GRAFTS performed by BERTHA SENIOR at OR [facility] CORONARY ANGIOGRAPHY W/LEFT HEART CATH 12/03/2010 CORONARY ANGIOGRAPHY W/LEFT HEART CATH performed by BALJINDER HUNG at CARDIAC LABS [facility] CT CHEST W CONTRAST 07/11/13 non calcified [...] VEIN performed by BERTHA SENIOR at OR [facility] INFORMATION 1995 cardiac cath REMOVE CATARACT, INSERT LENS PROSTH Right 02/07/2019 right EXTRACAPSULAR CATARACT REMOVAL WITH INTRAOCULAR LENS performed by Quincy Paiz MD at OR [facility] REMOVE CATARACT, INSERT LENS PROSTH Left 03/01/2019 left EXTRACAPSULAR CATARACT REMOVAL WITH INTRAOCULAR LENS performed by Quincy Paiz MD at OR [facility] REPAIR INITIAL INGUINAL HERNIA REDUCIBLE AGE 5 OR MORE US AAA SCREEN, RADIOLOGY 08/19/13 maximum diameter 2 cm, no AAA VASC DUPLEX CAROTID BILAT 09/22/13 dense calcificed plaque, <50% ICA stenosis, vertbrals antegrade Family History Problem Relation Age of Onset Cancer Grandfather (Maternal) stomach Cancer Aunt (Unspecified) stomach Diabetes Brother Other (HTN) Brother Other (Other) Brother denies any family history of skin diseases or skin cancer Social History Tobacco Use Smoking status: Former Smoker Years: 0.00 Smokeless tobacco: Never Used Tobacco comment: quit in 1971 Substance Use Topics Alcohol use: Yes Comment: rarely Drug use: No Vaping/E-Cigarette Use Vaping/E-Cigarette Substances Vaping/E-Cigarette Devices Review of patient's allergies indicates: Allergen Reactions Acetaminophen Renal complications Aspirin Stomach pain Cholestyramine Kidney pain Lipitor [Atorvastatin Calcium] cramping Niacin Muscle pain Simvastatin Hives Zetia [Ezetimibe] Cramping ankles, turned feet inward Current Outpatient Medications Medication Sig Dispense Refill Furosemide 20 MG Oral Tablet (Lasix) Take 1 Tab by mouth daily. 30 Tab 5 Praluent 75 MG/ML Subcutaneous Solution Auto-injector (Alirocumab) Inject 75 mg under the skin every 14 days. 3 mL 3 amLODIPine Besylate 5 MG Oral Tablet (Norvasc) [...] 2 times a day. 180 Tab 1 Omeprazole 20 MG Oral Capsule Delayed Release (PriLOSEC) Take 1 Cap by mouth daily. 90 Cap 1 OneTouch UltraSoft Lancets MISC USE ONE [...] by mouth. Indications: as needed) 30 5 ROS: Review of Systems: See HPI for pertinent positives. All other 11 point review of systems is negative. PHYSICAL EXAMINATION BP 142/86 | Pulse 66 | Temp 36.6 C (97.9 F) (Tympanic) | Resp 12 | Wt 65.1 kg (143 lb 8 oz) | BMI 23.88 kg/m | BSA 1.73 m Body mass index is 23.88 kg/m. General: no acute distress and stated age Head: normocephalic, no masses, lesions, tenderness or abnormalities Eyes: conjunctiva are pink and non-injected, sclera clear Neck: supple, no adenopathy, no bruits, normal jugular venous pulse, no hepatojugular reflux Chest: normal shape and normal respiratory effort Lungs: clear to auscultation and percussion Cardiac Exam: - regular rate & rhythm, systolic murmur left sternal border radiating to the carotids - normal S1, normal S2 Pulses: 2(+) throughout Abdomen: abdomen soft, non-tender, no abnormal masses and no hepatosplenomegaly Musculoskeletal: no gait disturbance, no joint inflammation, no deforming arthritis Extremities: Bilateral lower extremity edema to the knees Neuro: grossly normal exam Laboratory Data Review: No recent labs Impression: 1. Coronary artery disease status post coronary artery bypass surgery in 2010 2. Previous inferior wall myocardial infarction 1994 3. Ischemic cardiomyopathy with an estimated left ventricular ejection fraction of 40-44% 4. Mild aortic stenosis and mild mitral regurgitation 5. Hypertension 6. Intolerance to beta- blockers 7. Diabetes mellitus Plan: I think the patient's lower extremity edema is multifactorial including his ischemic heart disease and medications. He is also hypertensive at home and in the clinic today. The patient has not had any recent lab work and I took the liberty of obtaining a CBC, CMP, TSH, lipid panel and hemoglobin A1c. I also started him on Lasix 20 mg daily which should help to treat his lower extremity edema and hypertension. He will have follow-up in the next 1-2 weeks so that we can monitor his progress. This chart was completed in part utilizing i[employer] Speech Voice Recognition Software. Grammatical errors, random word insertions, prounoun errors, and incomplete sentences are an occasional consequence of this system due to software limitations, ambient noise, and hardware issues. Any formal questions or concerns about the content, text, or information contained within the body of this dictation should be directly addressed to the provider for clarification. Anson Banegas DO Cardiology, [facility] [address] [facility] [place] [address] 06/28/2020 documented in this encounter Nursing Notes * Violet Rodriguez LPN - 06/28/2020 10:51 AM EDT Pt here for c/o edema and increased bp, Positive for non pitting bilateral lower ext documented in this encounter Plan of Treatment Upcoming Encounters Date Type Specialty Care Team Description 07/05/2020 Pharmacy Pharmacy Medication, [facility] Refill, [facility] [address] [address] 07/12/2020 Office Visit Cardiology Alcon Lott PA-C [address] [facility] [place] [place] [address] [phone] 08/30/2020 Office Visit Internal Medicine Smith Orozco MD [address] [place] [address] [place] [place] [address] [phone] 11/01/2020 Office Visit Dermatology Kim Kong MD [address] [place] [address] [place] [address] [phone] 11/06/2020 Office Visit Cardiology Alcon Lott PA-C [address] [facility] [place] [place] [address] [phone] 02/05/2021 Pharmacy Pharmacy Medication, [facility], [place] [address] [phone] Pending Results Name Type Priority Associated Diagnoses Date /Time COMPREHENSIVE METABOLIC PANEL Lab Routine Type 2 diabetes mellitus with hemoglobin A1c goal of less than 8.0% (HCC) Atherosclerosis of nikolski coronary artery of nikolski heart without angina pectoris Dyslipidemia, goal LDL below 70 Old MN (myocardial infarction) Statin intolerance Ischemic cardiomyopathy Essential hypertension with goal blood pressure less than 140/90 06/28/2020 11:20 AM EDT LIPID PANEL WITH DIRECT LDL IF TG IS HIGH Lab Routine Type 2 diabetes mellitus with hemoglobin A1c goal of less than 8.0% (HCC) Atherosclerosis of nikolski coronary artery of nikolski heart without angina pectoris Dyslipidemia, goal LDL below 70 Old MN (myocardial infarction) Statin intolerance Ischemic cardiomyopathy Essential hypertension with goal blood pressure less than 140/90 06/28/2020 11:20 AM EDT TSH Lab Routine Type 2 diabetes mellitus with hemoglobin A1c goal of less than 8.0% (HCC) Atherosclerosis of nikolski coronary artery of nikolski heart without angina pectoris Dyslipidemia, goal LDL below 70 Old MN (myocardial infarction) Statin intolerance Ischemic cardiomyopathy Essential hypertension with goal blood pressure less than 140/90 06/28/2020 11:20 AM EDT HEMOGLOBIN A1C Lab Routine Type 2 diabetes mellitus with hemoglobin A1c goal of less than 8.0% (HCC) Atherosclerosis of nikolski coronary artery of nikolski heart without angina pectoris Dyslipidemia, goal LDL below 70 Old MN (myocardial infarction) Statin intolerance Ischemic cardiomyopathy Essential hypertension with goal blood pressure less than 140/90 06/28/2020 11:20 AM EDT Scheduled Orders Name Type Priority Associated Diagnoses Orde r Schedule COMPREHENSIVE METABOLIC PANEL Lab Routine Type 2 diabetes mellitus with hemoglobin A1c goal of less than 8.0% (HCC) Atherosclerosis of nikolski coronary artery of nikolski heart without angina pectoris Dyslipidemia, goal LDL below 70 Old MN (myocardial infarction) Statin intolerance Ischemic cardiomyopathy Essential hypertension with goal blood pressure less than 140/90 Expected: 06/28/2020, Expires: 10/28/2020 LIPID PANEL WITH DIRECT LDL IF TG IS HIGH Lab Routine Type 2 diabetes mellitus with hemoglobin A1c goal of less than 8.0% (HCC) Atherosclerosis of nikolski coronary artery of nikolski heart without angina pectoris Dyslipidemia, goal LDL below 70 Old MN (myocardial infarction) Statin intolerance Ischemic cardiomyopathy Essential hypertension with goal blood pressure less than 140/90 Expected: 06/28/2020, Expires: 10/28/2020 TSH Lab Routine Type 2 diabetes mellitus with hemoglobin A1c goal of less than 8.0% (HCC) Atherosclerosis of nikolski coronary artery of nikolski heart without angina pectoris Dyslipidemia, goal LDL below 70 Old MN (myocardial infarction) Statin intolerance Ischemic cardiomyopathy Essential hypertension with goal blood pressure less than 140/90 Expected: 06/28/2020, Expires: 10/28/2020 HEMOGLOBIN A1C Lab Routine Type 2 diabetes mellitus with hemoglobin A1c goal of less than 8.0% (HCC) Atherosclerosis of nikolski coronary artery of nikolski heart without angina pectoris Dyslipidemia, goal LDL below 70 Old MN (myocardial infarction) Statin intolerance Ischemic cardiomyopathy Essential hypertension with goal blood pressure less than 140/90 Expected: 06/28/2020, Expires: 10/28/2020 Health Maintenance Due Date Last Done Comments *DEPRESSION SCREENING,ANNUAL FOR PTS 12 AND OVER 02/20/2019 Yearly B-12 08/29/2020 08/30/2019, 08/2018, 08/12/2017 DIABETES-HGBA1C EVERY 6 MONTHS 08/30/2020 03/01/2020, 08/30/2019, 03/31/2019, Additional history exists DIABETES-FOOT EXAM 03/01/2021 03/01/2020, [...] of this encounter Implants Implanted Type Area Program Planner Device Identifier Shelf Expiration Date Model / Serial / Lot Marker Coronary Amgm-Sd - [id number] Implanted:Qty: 1 on 12/26/[address] [facility] N/A: Heart [employer] 10/13/2013 [facility] / / [id number] Sut Steel 6 M654g - [id number] Implanted:Qty: 5 on 12/26/[address] [facility] Chest DO NOT USE 10/14/2015 [id number] / / [id number] Band Ankur [id number] - [id number] Implanted:Qty: 1 on 12/26/[address] [facility] Chest [employer] 225-241 / / [id number] Lens Intraoc 17.5 - [id number] - [id number] Implanted:Qty: 1 on 02/07/2019 by Quincy Paiz MD at OR [facility] Right: Eye [employer] 08/14/2023 [id number] / [id number] / [id number] Lens Intraoc 17.0 - [id number] - [id number] Implanted:Qty: 1 on 03/01/2019 by Quincy Paiz MD at OR [facility] Left: Eye [employer] 09/12/2022 [id number] / [id number] / [id number] documented as of this encounter Results * CBC (06/28/2020 11:20 AM EDT) WBC 4.85 4.00 - 10.80 K/uL [facility] 57-10 RBC 4.08(L) 4.50 - 5.25 M/uL [facility] 57-10 HGB 14.1 14.0 - 16.8 g/dL [facility] 57-10 HCT 40.9 40.0 - 48.4 % [facility] 57-10 MCV 100.2(H) 82.0 - 99.5 fL [facility] 57-10 MCH 34.6(H) 27.0 - 34.0 pg [facility] 57-10 MCHC 34.5 32.0 - 36.0 g/dL [facility] 57-10 RDW 12.2 11.5 - 15.5 % [facility] 57-10 Plt 159 140 - 400 K/uL [facility] 57-10 MPV 9.9 6.6 - 11.1 fL [facility] 57-10 Specimen Blood - Venous blood specime n (specimen) [facility] 57-10 [address] [place] [address] documented in this encounter Visit Diagnoses Diagnosis Ischemic cardiomyopathy- Primary Other specified forms of chronic ischemic heart disease Type 2 diabetes mellitus with hemoglobin A1c goal of less than 8.0% (HCC) Atherosclerosis of nikolski coronary artery of nikolski heart without angina pectoris Dyslipidemia, goal LDL below 70 Other and unspecified hyperlipidemia Old MN (myocardial infarction) Old myocardial infarction Statin intolerance Other drug allergy Essential hypertension with goal blood pressure less than 140/90 documented in this encounter Advance Directives Documents on File Type Date Recorded Patient Molder Feeder Expl 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
--- OUTSIDE RECORDS SUMMARY | 2022-11-16 13:15 | External Medical Summary | Summary of Care ---
Author Name Unknown Organization [place] [address] Care Team Providers Care Supervisor Throwing Department Name Role Phone Smith Orozco MD Primary Care Provider Encounter Details Date Type Department Care Team Description 06/08/2020 Orders Only Internal Medicine [address] [place] [address] Smith Orozco MD [address] [place] [address] [place] [address] [phone] Allergies Active Allergy Reactions Severity Noted Date Comments Acetaminophen Renal complications 04/27/2009 Aspirin 08/13/2000 Stomach pain Cholestyramine 08/13/2000 Kidney pain Atorvastatin Calcium 04/28/2007 cramping Niacin Muscle pain 07/22/2007 Simvastatin Hives 08/13/2000 Ezetimibe 04/28/2007 Cramping ankles, turned feet inward documented as of this encounter (statuses as of 06/08/2020) Medications Medication Sig Dispensed Refills Start Date [...] HCl 2 MG Oral CapsuleIndications:A therosclerosis of [place] coronary artery of [place] heart without angina pectoris,BPH with obstruction/lower urinary tract symptoms,Essential hypertension with goal blood pressure less than 140/90 Take 1 Cap by mouth at bedtime. 90 Cap 1 03/01/2020 Active Valsartan 320 MG Oral TabletIndications:At herosclerosis of [place] coronary artery of [place] heart without angina pectoris,Primary hypertension Take 1 Tab by mouth daily. 90 Tab 1 03/01/2020 Active amLODIPine Besylate 5 MG Oral Tablet (Norvasc)Indications :Essential hypertension with goal blood pressure less than 140/90,Old [place] (myocardial infarction) Take 1 Tab by mouth daily. 90 Tab 3 05/03/2020 Active Isosorbide Mononitrate ER 60 MG Oral Tablet Extended Release 24 Hour (Imdur) Take 1 Tab by mouth daily. In the morning 90 Tab 3 05/03/2020 Active Praluent 75 MG/ML Subcutaneous Solution Auto-injector (Alirocumab)Indicati ons:Atherosclerosis of [place] coronary artery of [place] heart without angina pectoris,Dyslipidemi a, goal LDL below 70,Old [place] (myocardial infarction),Type 2 diabetes mellitus with hemoglobin A1c goal of less than 8.0% (HCC),Statin intolerance Inject 75 mg under the skin every 14 days. 3 mL 3 06/04/2020 Active documented as of this encounter (statuses as of 06/08/2020) Active Problems Problem Noted Date Type 2 [...] to patient at prior appointment. Atherosclerosis of [place] co ronary artery of [place] heart without angina pectoris 11/30/2001 GENERAL OSTEOARTHROSIS Multiple pulmonary nodules Complex renal cyst Overview: 3.8 cm; L Old [place] (myocardial infarction) documented as of this encounter (statuses as of 06/08/2020) Resolved Problems Problem Noted Date Resolved Date Genomics Cardio Research Other*[id number] 201004/22/2016 Overview: Study Titile: Genomics Markers for Patients with Cardiovascular Disease Project # [id number] PI: Amalia Kingsley MD Please call [phone] with study related questions HTN, goal below [...] as of this encounter (statuses as of 06/08/2020) Immunizations Name Administration Dates Next Due Pneumococcal [...] Encounters Date Type Specialty Care Team Description 06/27/2020 Pharmacy Pharmacy Medication, [facility] Specialty Refill, [facility] [address] [place] [address] [phone] 08/30/2020 Office Visit Internal Medicine Smith Orozco MD [address] [place] [address] [place] [address] [phone] 11/01/2020 Office Visit Dermatology Kim Kong MD [address] [place] [address] [phone] 11/06/2020 Office Visit Cardiology Alcon Lott PA-Adelfo 132 [facility] [place] [address] [phone] 02/05/2021 Pharmacy Pharmacy Medication, [facility] Specialty, [facility] [address] [address] [phone] Health Maintenance Due Date Last Done Comments *DEPRESSION SCREENING,ANNUAL FOR PTS 12 AND OVER 02/20/2019 Yearly B-12 08/29/2020 08/30/2019, 06/0 08/2018, 08/12/2017 DIABETES-HGBA1C EVERY 6 MONTHS 08/30/2020 03/01/2020, 08/30/2019, 03/31/2019, Additional history exists DIABETES-FOOT EXAM 03/01/2021 03/01/2020, 1 03/26/2018, 02/18/2018, Additional history exists DIABETES-EYE EXAM 06/08/2021 03/23/2020, , 11/05/2017, Additional history exists DTaP,Tdap,and [...] of this encounter Implants Implanted Type Area Php Wordpress Developer Device Identifier Shelf Expiration Date Model / Serial / Lot Marker [facility] [id number] Implanted:Qty: 1 on 12/26/2010 at [place] [facility] [place] N/A: Heart [employer] 10/13/2013 [facility] / / [id number] Sut Steel 6 M654g - [id number] Implanted:Qty: 5 on 12/26/2010 at [place] [facility] [place] Chest DO NOT USE 10/14/2015 M654G / / [id number] Band [facility] 225-000 - [id number] Implanted:Qty: 1 on 12/26/2010 at [place] [facility] [place] Chest [employer] 225-241 / / [id number] Lens Intraoc 17.5 - [id number] - [id number] Implanted:Qty: 1 on 02/07/2019 by Quincy Paiz MD at [place] [facility] Right: Eye [employer] LOMB 08/14/2023 [id number] / [id number] / [id number] Lens Intraoc 17.0 - [id number] - [id number] Implanted:Qty: 1 on 03/01/2019 by Quincy Paiz MD at OR [facility] Left: Eye BAUSCH [employer] LOMB 09/12/2022 [id number] / [id number] / [id number] documented as of this encounter Procedures Procedure Name Priority Date/Time Associated Diagnosis Comments DIABETIC EYE EXAM Routine 03/23/2020 documented in this encounter Results * DIABETIC EYE EXAM (03/23/2020) Specimen Narrative Performed At OUTSIDE LAB (SEE SCANNED REPORT) documented in this encounter Advance Directives Documents on File Type Date Recorded Patient Lead Infrastructure Architect Expl 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
--- OUTSIDE RECORDS SUMMARY | 2022-11-16 13:15 | External Medical Summary ---
Author Name Unknown Address Unknown Organization K01:[facility] - [address] [place] [address] Laboratory Report Ordering Provider Test Date Status IZABELA CHO 06/28/2020 11:20:14 Final Observation Date Value Abnormality Reference (Units ) Status Triglyceride 06/28/2020 11:20:14 137 <=174 ( mg/dL) Final Performing Location [facility] - [address] [place] [address]
--- OUTSIDE RECORDS SUMMARY | 2022-11-16 13:15 | External Medical Summary | Summary of Care ---
Author Name Unknown Organization [place] [address] Care Team Providers Care Roll Clamp Operator Name Role Phone Smith Orozco MD Primary Care Provider Reason for Visit * Reason Comments Medication Refill Encounter Details Date Type Department Care Team Description 06/01/2020 [facility]acy [facility] [address] [place] [address] Medication, [facility]tm Specialty Refill, [address] [place] [address] [phone] Encounter for medication refill* Allergies Active Allergy Reactions Severity Noted Date Comments Acetaminophen Renal complications 04/27/2009 Aspirin 08/13/2000 Stomach pain Cholestyramine 08/13/2000 Kidney pain Atorvastatin Calcium 04/28/2007 cramping Niacin Muscle pain 07/22/2007 Simvastatin Hives 08/13/2000 Ezetimibe 04/28/2007 Cramping ankles, turned feet inward documented as of this encounter (statuses as of 06/04/2020) Medications Medication Sig Dispensed Refills Start Date [...] HCl 2 MG Oral CapsuleIndications:A therosclerosis of [place] coronary artery of [place] heart without angina pectoris,BPH with obstruction/lower urinary tract symptoms,Essential hypertension with goal blood pressure less than 140/90 Take 1 Cap by mouth at bedtime. 90 Cap 1 03/01/2020 Active Valsartan 320 MG Oral TabletIndications:At herosclerosis of [place] coronary artery of [place] heart without angina pectoris,Primary hypertension Take 1 [...] MG/ML Subcutaneous Solution Auto-injector (Alirocumab)Indicati ons:Atherosclerosis of [place] coronary artery of [place] heart without angina pectoris,Dyslipidemi a, goal LDL below 70,Old [place] (myocardial infarction),Type 2 diabetes mellitus with hemoglobin A1c goal of less than 8.0% (HCC),Statin intolerance Inject 75 mg under the skin every 14 days. 2 mL 11 05/09/2020 Active documented as of this encounter (statuses as of 06/04/2020) Active Problems Problem Noted Date Type 2 [...] to patient at prior appointment. Atherosclerosis of [place] co ronary artery of [place] heart without angina pectoris 11/30/2001 GENERAL OSTEOARTHROSIS Multiple pulmonary nodules Complex renal cyst Overview: 3.8 cm; L Old [place] (myocardial infarction) documented as of this encounter (statuses as of 06/04/2020) Resolved Problems Problem Noted Date Resolved Date Genomics Cardio Research Other*[id number] 201004/22/2016 Overview: Study Titile: Genomics Markers for Patients with Cardiovascular Disease Project # [id number] PI: Amalia Kingsley MD Please call [phone] with study related questions HTN, goal below [...] as of this encounter (statuses as of 06/04/2020) Immunizations Name Administration Dates Next Due Pneumococcal [...] as of this encounter Progress Notes * Jackeline Cody OSA - 06/04/2020 9:09 AM EDT 1st Attempt to refill praluent, no answer on preferred phone number. [phone] [facility] 2nd attempt to reach patient is scheduled in 7 days | 1 week. Jackeline Cody Shaper Set Up Operator [facility] Specialty RX 06/04/2020,9:11 AM documented in this encounter Plan of Treatment Upcoming Encounters Date Type Specialty Care Team Description 06/11/2020 Pharmacy Pharmacy Medication, [facility] Specialty Refill, [address] [address] [phone] 08/30/2020 Office Visit Internal Medicine Smith Orozco MD [address] [place] [address] [place] [address] [phone] 11/01/2020 Office Visit Dermatology Kim Kong MD [address] [place] [address], [place] [address] [phone] 11/06/2020 Office Visit Cardiology Alcon Lott PA-C 132 [facility] [place] [address] [phone] 02/05/2021 Pharmacy Pharmacy Medication, [facility] Specialty, [address] [address] [phone] Health Maintenance Due Date Last Done Comments *DEPRESSION SCREENING,ANNUAL FOR PTS 12 AND OVER 02/20/2019 DIABETES-EYE EXAM 11/10/2019 11/09/2018, , 10/10/2015, Additional history exists Yearly B-12 08/29/2020 08/30/2019, 08/2018, 08/12/2017 DIABETES-HGBA1C EVERY 6 MONTHS 08/30/2020 03/01/2020, 08/30/2019, 03/31/2019, Additional history exists DIABETES-FOOT EXAM 03/01/2021 03/01/2020, 1 03/26/2018, 02/18/2018, Additional history exists DTaP,Tdap,and Td Vaccines (2 - Td) 08/05/2022 08/05/2012, 03/16/2003 Pneumococcal Vaccine: 65+ Years Completed 10/16/2015, 12/15/2006, 04/01/2002 Zoster Vaccines Completed 05/25/2019, 09/2019, 11/15/2011 Influenza Vaccine (FLU shot) Completed 10/2019, 11/22/2018, 11/17/2017, Additional history exists MENINGOCOCCAL (MENACTRA/MENVEO) Aged Out No longer eligible based on patient's age to complete this topic documented as of this encounter Implants Implanted Type Area Creative Writing Teacher Device Identifier Shelf Expiration Date Model / Serial / Lot Marker Coronary [facility]-Sd - [id number] Implanted:Qty: 1 [place] [facility] [place] Heart [employer] 10/13/2013 [facility] / / [id number] Sut Steel 6 M654g - [id number] Implanted:Qty: 5 on 12/26/2010 [place] [facility] [place] Chest DO NOT USE 10/14/2015 M654G / / [id number] Alonso Pascual 225-273 - [id number] Implanted:Qty: 1 on 12/26/2010 [place] [facility] [place] Chest [employer] 225-377 / / [id number] Lens Intraoc 17.5 - [id number] - [id number] Implanted:Qty: 1 on 02/07/2019 by Quincy Paiz MD at OR [facility] Right: Eye [employer]CH [employer] LOMB 08/14/2023 [id number] / [id number] / [id number] Lens Intraoc 17.0 - [id number] - [id number] Implanted:Qty: 1 on 03/01/2019 by Quincy Paiz MD at OR [facility] Left: Eye BA[employer]CH [employer] LOMB 09/12/2022 [id number] / [id number] / [id number] documented as of this encounter Visit Diagnoses Diagnosis Encounter for medication refill- Primary Issue of repeat prescriptions documented in this encounter Advance Directives Documents on File Type Date Recorded 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
--- OUTSIDE RECORDS SUMMARY | 2022-11-16 13:15 | External Medical Summary | Summary of Care ---
Author Name Unknown Organization [place] [address] Care Team Providers Care Hospitalist Medical Director Name Role Phone Smith Orozco MD Primary Care Provider Reason for Visit * Reason Comments Medication Refill Encounter Details Date Type Department Care Team Description 06/27/2020 [facility]acy [facility], [address] [place] [address] Medication, [facility]tm Specialty Refill, [address] [place] [address] [phone] Encounter for medication refill* Allergies Active Allergy [...] HCl 2 MG Oral CapsuleIndications:A therosclerosis of [place] coronary artery of [place] heart without angina pectoris,BPH with obstruction/lower urinary tract symptoms,Essential hypertension with goal blood pressure less than 140/90 Take 1 Cap by mouth at bedtime. 90 Cap 1 03/01/2020 Active Valsartan 320 MG Oral TabletIndications:At herosclerosis of [place] coronary artery of [place] heart without angina pectoris,Primary hypertension Take 1 Tab by mouth daily. 90 Tab 1 03/01/2020 Active amLODIPine Besylate 5 MG Oral Tablet (Norvasc)Indications :Essential hypertension with goal blood pressure less than 140/90,Old [place] (myocardial infarction) Take 1 Tab by mouth daily. 90 Tab 3 05/03/2020 Active Isosorbide Mononitrate ER 60 MG Oral Tablet Extended Release 24 Hour (Imdur) Take 1 Tab by mouth daily. In the morning 90 Tab 3 05/03/2020 Active Praluent 75 MG/ML Subcutaneous Solution Auto-injector (Alirocumab)Indicati ons:Atherosclerosis of [place] coronary artery of [place] heart without angina pectoris,Dyslipidemi a, goal LDL below 70,Old [place] (myocardial infarction),Type 2 diabetes mellitus with hemoglobin [...] to patient at prior appointment. Atherosclerosis of [place] co ronary artery of qagan [place] heart without angina pectoris 11/30/2001 GENERAL OSTEOARTHROSIS Multiple pulmonary nodules Complex renal cyst Overview: 3.8 cm; L Old [place] (myocardial infarction) documented as of this encounter (statuses as of 06/28/2020) Resolved Problems Problem Noted Date Resolved Date Genomics Cardio Research Other*[id number] 201004/22/2016 Overview: Study Titile: Genomics Markers for Patients with Cardiovascular Disease Project # [id number] PI: Amalia Kingsley MD Please call [phone] with study related questions HTN, goal below [...] Progress Notes * Jackeline Cody OSA - 06/28/2020 10:19 AM EDT 1st Attempt to refill praluent, no answer on preferred phone number. [phone] left [facility] 2nd attempt to reach patient is scheduled in 7 days | 1 week. Jackeline Cody Glass Blowing Lathe Operator [facility] Specialty RX 06/28/2020,10:20 AM documented in this encounter Plan of Treatment Upcoming Encounters Date Type Specialty Care Team Description 07/05/2020 Pharmacy Pharmacy Medication, [facility] Specialty Refill, [address] [place] [address] [phone] 08/30/2020 Office Visit Internal Medicine Smith Orozco MD [address] [place] [address] [place] [address] 11/01/2020 Office Visit Dermatology Kim Kong MD [address] [facility] [place] [address] [phone] 11/06/2020 Office Visit Cardiology Alcon Lott PA-C 132 [facility] [place] [address] [phone] 02/05/2021 Pharmacy Pharmacy Medication, [facility] Specialty, [address] [place] [address] Health Maintenance Due Date Last Done Comments [...] of this encounter Implants Implanted Type Area Shipping Associate Device Identifier Shelf Expiration Date Model / Serial / Lot Marker Coronary Amgm-Sd - [id number] [place]:Q[place] [facility] [place] Heart [employer] 10/13/2013 AM-[place] / / [id number] Sut Steel 6 M654g - [id number] Implanted:Qty: 5 on 12/26/2010 [place] [facility] [place] DO NOT USE 10/14/2015 M654G / / [id number] Band Ankur 225-241 - [id number] Implanted:Qty: 1 on 12/26/2010 [place] [facility] [place] [employer] 225-241 / / [id number] Lens Intraoc 17.5 - [id number] - [id number] Implanted:Qty: 1 on 02/07/2019 by Quincy Paiz MD at OR [facility] Right: Eye [employer]OMB 08/14/2023 [id number] / [id number] / [id number] Lens Intraoc 17.0 - [id number] - [id number] Implanted:Qty: 1 on 03/01/2019 by Quincy Paiz MD at OR [facility] Left: Eye [employer]OMB 09/12/2022 [id number] / [id number] / [id number] documented as of this encounter Visit Diagnoses Diagnosis Encounter for medication refill- Primary Issue of repeat prescriptions documented in this encounter Advance Directives Documents on File Type Date Recorded 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
--- OUTSIDE RECORDS SUMMARY | 2022-11-16 13:15 | External Medical Summary | Summary of Care ---
Author Name Unknown Organization [place] [address] Care Team Providers Care Resp Therapist Name Role Phone Smith Orozco MD Primary Care Provider [phone] Reason for Visit * Reason Comments Medication Refill Encounter Details Date Type Department Care Team Description 06/01/2020 [facility], [address] [place] [address] Medication, [facility] Specialty Refill, [address] [place] [address] [phone] Encounter for medication refill* Allergies Active Allergy [...] HCl 2 MG Oral CapsuleIndications:A therosclerosis of [place] coronary artery of [place] heart without angina pectoris,BPH with obstruction/lower urinary [...] angina pectoris,Dyslipidemi a, goal LDL below 70,Old [place] (myocardial infarction),Type 2 diabetes mellitus with hemoglobin [...] Noted Date Resolved Date Genomics Cardio Research Other*[id number] 201004/22/2016 Overview: Study Titile: Genomics Markers for Patients with Cardiovascular Disease Project # [id number] PI: Amalia Kingsley MD Please call [phone] with study related questions HTN, goal below [...] Notes * Jackeline Cody OSA - 06/04/2020 11:34 AM EDT [facility] REFILL CALL NOTE Cl Ramírez Rodolfo [id number] Patient is a 79 year old male on the schedule today for a telephone call concerning their refill ofpraluent. Spoke to patient via incoming call Does patient have any questions regarding medication(s)? no Is patient having difficulty taking medication(s) as prescribed? no Any medication changes (including OTC/herbals)? Did not ask. Any new co-morbidities? no Patient account of regimen effectiveness: improvement in condition/symptoms Does patient have any concerns or complaints regarding possible side effects of medication(s)? no How much medication does patient have left in present supply? 0 Would patient like to schedule refill of medication today which will be shipped when patient has approximately 1 week left on present supply? yes Shipment date: 06-05-20 Delivery method:UPS Location Medication Delivered too? Home Discussed copay of prescription?:yes; patient verbalized understanding Discussed outstanding balance?:no Discussed payment options?:yes; patient verbalized understanding, bill to be sent to patient home Medication shipped to:[address] [facility], [place] [address] Does the patient have any signs or symptoms of infection? no Satisfaction survey: na Patient reminded that they will be receiving a telephone call from pharmacy to schedule their next refill when they have approximately 1 week of medication remaining. In the interim, patient advised to call pharmacy should they have any questions or concerns. LIANA Carroll 06/04/2020, 11:34 AM * Jackeline Cody OSA - 06/04/2020 9:09 AM EDT 1st Attempt to refill praluent, no answer on preferred phone number. [phone] left [facility] 2nd attempt to reach patient is scheduled in 7 days | 1 week. Jackeline Cody Marketing Community Liaison [facility] Specialty RX 06/04/2020,9:11 AM documented in this encounter Plan of Treatment Upcoming Encounters Date Type Specialty Care Team Description 06/11/2020 Pharmacy Pharmacy Medication, [facility] Specialty Refill, [facility] [address] [address] [phone] 08/30/2020 Office Visit Internal Medicine Smith Orozco MD [address] [place] [address] [place] [address] [phone] 11/01/2020 Office Visit Dermatology Kim Kong MD 200 [place] [address] [phone] 11/06/2020 Office Visit Cardiology Alcon Lott PA-Adelfo 132 [facility] [place] [address] [phone] 02/05/2021 Pharmacy Pharmacy Medication, Mt Specialty, [facility] [address] [address] [phone] Health Maintenance Due Date Last Done Comments *DEPRESSION SCREENING,ANNUAL FOR PTS 12 AND OVER 02/20/2019 DIABETES-EYE EXAM 11/10/2019 11/09/2018, , 10/10/2015, Additional history exists Yearly B-12 08/29/2020 08/30/2019, 0608/2018, 08/12/2017 DIABETES-HGBA1C EVERY 6 MONTHS 08/30/2020 03/01/2020, [...] of this encounter Implants Implanted Type Area Manufacturing Cost Estimator Device Identifier Shelf Expiration Date Model / Serial / Lot Marker Coronary [facility] - [id number] [place] [facility] [place] [employer] 10/13/2013 [facility] / / [id number] Sut Steel 6 M654g - [id number] [place]planted:Qty[place] 5 [place] 12[place] [facility] [place] DO NOT USE 10/14/2015 M654G / / [id number] [facility] 225-241 - [id number] Implanted:Qty: 1 on 12/26/2010 [place] [facility] [place] [employer] 225-241 / / [id number] Lens Intraoc 17.5 - [id number] - [id number] Implanted:Qty: 1 on 02/07/2019 by Quincy Paiz MD at OR [facility] Right: Eye [employer]CH [employer] LOMB 08/14/2023 [id number] / [id number] / [id number] Lens Intraoc 17.0 - [id number] - [id number] Implanted:Qty: 1 on 03/01/2019 by Quincy Paiz MD at OR [facility] Left: Eye [employer]OMB 09/12/2022 [id number] / [id number] / [id number] documented as of this encounter Visit Diagnoses Diagnosis Encounter for medication refill- Primary Issue of repeat prescriptions documented in this encounter Advance Directives Documents on File Type Date Recorded 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
--- OUTSIDE RECORDS SUMMARY | 2022-11-16 13:15 | External Medical Summary ---
Author Name Unknown Address Unknown Organization K0G:[facility] [address] [place] [address] Laboratory Report Ordering Provider Test Date Status IZABELA CHO 06/28/2020 11:20:15 Final Observation Date Value Abnormality Reference (Units ) Status BUN 06/28/2020 11:20:15 27 Above high normal 6-20 (mg/dL) Final Creatinine 06/28/2020 11:20:15 1.0 0.6-1.2 (mg/dL) Final Glomerular filtration rate/1.73 sq M.predicted [Volume Rate/Area] in Serum, Plasma or Blood by Creatinine-based formula (CKD-EPI) 06/28/2020 11:20:15 75.8 >=60.0 (mL/min) Final Performing Location [facility] [address] - [address] [place] [address]
--- OUTSIDE RECORDS SUMMARY | 2022-11-16 13:15 | External Medical Summary | Summary of Care ---
Author Name Unknown Organization [place] [address] Care Team Providers Care Ware Tester Name Role Phone Smith Orozco MD Primary Care Provider [phone] Reason for Visit * Reason Onset Date Comments Medication Refill 05/08/2020 Encounter Details Date Type Department Care Team Description 05/08/2020 Refill Cardiology, [facility] [address] [facility] [place] [address] Wen Linda PA-C [address] [facility] [place] [id number] Atherosclerosis of big [place] coronary artery of big [place] heart without angina pectoris; Dyslipidemia, goal LDL below 70; Old MA (myocardial infarction); Type 2 diabetes mellitus with hemoglobin A1c goal of less than 8.0% ([facility]); Statin intolerance Allergies Active Allergy Reactions Severity Noted Date Comments Acetaminophen Renal complications 04/27/2009 Aspirin 08/13/2000 Stomach pain Cholestyramine 08/13/2000 Kidney pain Atorvastatin Calcium 04/28/2007 cramping Niacin Muscle pain 07/22/2007 Simvastatin Hives 08/13/2000 Ezetimibe 04/28/2007 Cramping ankles, turned feet inward documented as of this encounter (statuses as of 05/09/2020) Medications Medication Sig Dispensed Refills Start Date [...] DOSE ASA EC 81 MG PO TBECIndications:pm on, thursday Take by mouth. Indications: pmond, thursday [...] 2 MG Oral CapsuleIndications :Atherosclerosis of [place] coronary artery of [place] heart without angina pectoris,BPH with obstruction/lower urinary tract symptoms,Essential hypertension with goal blood pressure less than 140/90 Take 1 Cap by mouth at bedtime. 90 Cap 1 03/01/2020 Active Valsartan 320 MG Oral TabletIndications: Atherosclerosis of [place] coronary artery of [place] heart without angina pectoris,Primary hypertension Take 1 Tab by mouth daily. 90 Tab 1 03/01/2020 Active amLODIPine Besylate 5 MG Oral Tablet (Norvasc)Indicatio ns:Essential hypertension with goal blood pressure less than 140/90,Old MA (myocardial infarction) Take 1 Tab by mouth daily. 90 Tab 3 05/03/2020 Active Isosorbide Mononitrate ER 60 MG Oral Tablet Extended Release 24 Hour (Imdur) Take 1 Tab by mouth daily. In the morning 90 Tab 3 05/03/2020 Active Praluent 75 MG/ML Subcutaneous Solution Auto-injector (Alirocumab)Indica tions:Atherosclero sis of [place] coronary artery of [place] heart without angina pectoris,Dyslipide yasmin, goal LDL below 70,Old MA (myocardial infarction),Type 2 diabetes mellitus with hemoglobin A1c goal of less than 8.0% (HCC),Statin intolerance Inject 75 mg under the skin every 14 days. 2 mL 11 05/09/2020 Active Praluent 75 MG/ML Subcutaneous Solution Auto-injector (Alirocumab)Indica tions:Atherosclero sis of [place] coronary artery of [place] heart without angina pectoris,Dyslipide yasmin, goal LDL below 70,Old MA (myocardial infarction),Type 2 diabetes mellitus with hemoglobin A1c goal of less than 8.0% (HCC),Statin intolerance Inject 75 mg under the skin every 14 days. 2 mL 11 05/04/2020 1 Discontinue d(Refill) documented as of this encounter (statuses as of 05/09/2020) Active Problems Problem Noted Date Type 2 [...] patient at prior appointment. Atherosclerosis of [place] co ronary artery of big sandy heart without angina pectoris 11/30/2001 GENERAL OSTEOARTHROSIS Multiple pulmonary nodules Complex renal cyst Overview: 3.8 cm; L Old MA (myocardial infarction) documented as of this encounter (statuses as of 05/09/2020) Resolved Problems Problem Noted Date Resolved Date [employer] Other*[id number] 201004/22/2016 Overview: Study Titile: Genomics Markers for Patients with Cardiovascular Disease Project # [id number] PI: Amalia Kingsley MD Please call [phone] with study related questions HTN, goal below [...] 01/24/2002 10/12/2015 Solar lentigo 10/27/2001 04/30/2016 ACUTE MA; INFERIOR WALL;SUBSEQUENT EPISODE CARE 06/21/2013 HYPERTENSION NOS [...] as of this encounter (statuses as of 05/09/2020) Immunizations Name Administration Dates Next Due Pneumococcal [...] Telephone Encounter - Karly Adler PA-C - 05/09/2020 10:37 AM EST Signed Prescriptions: Disp Refills Praluent 75 MG/ML Subcutaneous Solution Au*2 mL 11 Sig: Inject 75 mg under the skin every 14 days. Authorizing Provider: KARLY ADLER * Telephone Encounter - Jayna Quintana [facility] - 05/09/2020 10:33 AM EST Pending Prescriptions: Disp Refills Praluent 75 MG/ML Subcutaneous Solution A*2 mL 11 Sig: Inject 75 mg under the skin every 14 days. * Telephone Encounter - Angelia Chavez, public transit specialist - 05/08/2020 8:42 AM EST Please reroute RX to [id number] Pending Prescriptions: Disp Refills Praluent 75 MG/ML Subcutaneous Solution A*2 mL 11 Sig: Inject 75 mg under the skin every 14 days. Last Office/Telemedicine Visit: 03/01/2020 Next Office Visit: 08/30/2020 Scheduled Provider(s): Smith Orozco MD If no future appointments scheduled, and last appointment is greater than a year ago, please schedule patient for a follow-up appointment Last date the medication was ordered: 05/04/2020 Patient Phone Numbers Labs: Lab Results Component Value Date/Time CREAT 1.0 03/01/2020 02:51 PM CREAT 1.0 01/25/1996 10:05 AM POTASSIUM 4.4 03/01/2020 02:51 PM POTASSIUM 4.8 01/25/1996 10:05 AM TSH 3.81 04/28/2018 09:11 AM LDLCALC 128 03/01/2020 02:51 PM LDLCALC 175. (HH) 01/25/1996 10:05 AM LDLDIRECT NOT APPLICABLE 03/01/2020 02:51 PM LDLDIRECT 101 02/04/2011 04:00 PM ALT 21 03/31/2019 08:26 AM ALT 29 01/25/1996 10:05 AM HGBA1C 7.5 (H) 03/01/2020 02:51 PM HGBA1C 5.7 05/16/1996 10:22 AM documented in this encounter Plan of Treatment Upcoming Encounters Date Type Specialty Care Team Description 06/01/2020 Pharmacy Pharmacy Medication, [facility] Refill, [address] [address] [phone] 08/30/2020 Office Visit Internal Medicine Smith Orozco MD [address] [place] [address] [place] [address] [phone] 11/01/2020 Office Visit Dermatology Kim Kong MD [address] [place] [address], [place] [address] [phone] 11/06/2020 Office Visit Cardiology Karly Adler PA-C [address] [facility] [place] [address] [phone] 02/05/2021 Pharmacy Pharmacy Medication, [facility], [address] [address] [phone] Health Maintenance Due Date Last Done Comments [...] of this encounter Implants Implanted Type Area Room Service Associate Device Identifier Shelf Expiration Date Model / Serial / Lot Marker Coronary [facility]-Sd - [id number] Implanted:Qty: 1 on 12/26/2010 at OR [facility] N/A: Heart [employer] 10/13/2013 AM-SD / / [id number] Sut Steel 6 M654g - [id number] Implanted:Qty: 5 on 12/26/2010 at OR [facility] Chest DO NOT USE 10/14/2015 M654G / / [id number] Band Ankur 225-241 - [id number] Implanted:Qty: 1 on 12/26/2010 at OR [facility] Chest [employer] 225-241 / / [id number] Lens Intraoc 17.5 - [id number] - [id number] Implanted:Qty: 1 on 02/07/2019 by Quincy Paiz MD at OR [facility] Right: Eye [employer] 08/14/2023 [id number] / [id number] / [id number] Lens Intraoc 17.0 - [id number] - [id number] Implanted:Qty: 1 on 03/01/2019 by Quincy Paiz MD at OR [facility] Left: Eye [employer]CH [employer] LOMB 09/12/2022 [id number] / [id number] / [id number] documented as of this encounter Visit Diagnoses Diagnosis Atherosclerosis of big sandy coronary artery of big sandy heart without angina pectoris Dyslipidemia, goal LDL below 70 Other and unspecified hyperlipidemia Old MA (myocardial infarction) Old myocardial infarction Type 2 diabetes mellitus with hemoglobin A1c goal of less than 8.0% (HCC) Statin intolerance Other drug allergy documented in this encounter Advance Directives Documents on File Type Date Recorded Patient Clinical Manager Home Care Expl 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
--- OUTSIDE RECORDS SUMMARY | 2022-11-16 13:15 | External Medical Summary | Summary of Care ---
Author Name Unknown Organization [facility] Address [facility] [place] [address] Care Team Providers Care Popcorn Attendant Name Role Phone Smith Orozco MD Primary Care Provider Reason for Visit * Reason Onset Date Comments Medication Pre-auth 05/04/2020 Encounter Details Date Type Department Care Team Description 05/04/2020 Telephone Cardiology, [facility] [address] [place] [address] Wen Linda PA-C [address] [place] [address] Medication Pre-auth Allergies Active Allergy Reactions Severity Noted Date Comments Acetaminophen Renal complications 04/27/2009 Aspirin 08/13/2000 Stomach pain Cholestyramine 08/13/2000 Kidney pain Atorvastatin Calcium 04/28/2007 cramping Niacin Muscle pain 07/22/2007 Simvastatin Hives 08/13/2000 Ezetimibe 04/28/2007 Cramping ankles, turned feet inward documented as of this encounter (statuses as of 05/31/2020) Medications Medication Sig Dispensed Refills Start Date [...] HCl 2 MG Oral CapsuleIndications:A therosclerosis of [place] coronary artery of [place] heart without angina pectoris,BPH with obstruction/lower urinary tract symptoms,Essential hypertension with goal blood pressure less than 140/90 Take 1 Cap by mouth at bedtime. 90 Cap 1 03/01/2020 Active Valsartan 320 MG Oral TabletIndications:At herosclerosis of [place] coronary artery of [place] heart without angina pectoris,Primary hypertension Take 1 Tab by mouth daily. 90 Tab 1 03/01/2020 Active amLODIPine Besylate 5 MG Oral Tablet (Norvasc)Indications :Essential hypertension with goal blood pressure less than 140/90,Old [place] (myocardial infarction) Take 1 Tab by mouth daily. 90 Tab 3 05/03/2020 Active Isosorbide Mononitrate ER 60 MG Oral Tablet Extended Release 24 Hour (Imdur) Take 1 Tab by mouth daily. In the morning 90 Tab 3 05/03/2020 Active documented as of this encounter (statuses as of 05/31/2020) Active Problems Problem Noted Date Type 2 [...] to patient at prior appointment. Atherosclerosis of [place] co ronary artery of [place] heart without angina pectoris 11/30/2001 GENERAL OSTEOARTHROSIS Multiple pulmonary nodules Complex renal cyst Overview: 3.8 cm; L Old [place] (myocardial infarction) documented as of this encounter (statuses as of 05/31/2020) Resolved Problems Problem Noted Date Resolved Date [employer] Cardio Research Other*[id number] 201004/22/2016 Overview: Study Titile: Genomics Markers for Patients with Cardiovascular Disease Project # [id number] PI: Amalia Kingsley MD Please call [phone] with study related questions HTN, goal below [...] as of this encounter (statuses as of 05/31/2020) Immunizations Name Administration Dates Next Due Pneumococcal [...] encounter Miscellaneous Notes * Telephone Encounter - Suzan Alcantar RN - 05/04/2020 2:36 PM EST Prior auth for Praluent approved. Valid 02/04/2020 - 05/04/2021. * Telephone Encounter - Suzan Alcantar RN - 05/04/2020 2:25 PM EST Prior auth initiated via CoverMyMeds. Will await decision. * Telephone Encounter - Yumiko Mckeon PHARM Tech - 05/04/2020 2:01 PM EST Patient needs a prior authorization for their Praluent through their [facility] insurance. BIN: [id number] PCN: [id number] ID: [id number] GROUP: [id number] Target ship date is n/a. Thank you very much, Yumiko Mckeon Youth Care Specialist III [facility] 05/04/2020,2:01 PM documented in this encounter Plan of Treatment Upcoming Encounters Date Type Specialty Care Team Description 06/01/2020 Pharmacy Pharmacy Medication, [facility] Refill, [facility] [address] [facility] [address] 08/30/2020 Office Visit Internal Medicine Smith Orozco MD [address] [place] [address] [place] [address] [phone] 11/01/2020 Office Visit Dermatology Kim Kong MD [address] [place] [address] [place] [address] [phone] 11/06/2020 Office Visit Cardiology Alcon Lott PA-C [address] [facility] [place] [address] [phone] 02/05/2021 Pharmacy Pharmacy Medication, [facility] Specialty, [address] [place] [address] [phone] Health Maintenance Due Date Last Done Comments [...] of this encounter Implants Implanted Type Area Field Education Director Device Identifier Shelf Expiration Date Model / Serial / Lot Marker Coronary Amgm-Sd - [id number] Implanted:Qty: 1 on 12/26/2010 at OR [facility] N/A: Heart [employer] 10/13/2013 AMGM-SD / / [id number] Sut Steel 6 M654g - [id number] Implanted:Qty: 5 on 12/26/2010 at OR [facility] Chest DO NOT USE 10/14/2015 M654G / / [id number] Band Ankur 008-807 - [id number] Implanted:Qty: 1 on 12/26/2010 at OR [facility] Chest [employer] 225-241 / / [id number] Lens Intraoc 17.5 - [id number] - [id number] Implanted:Qty: 1 on 02/07/2019 by Quincy Paiz MD at OR [facility] Right: Eye [employer] 08/14/2023 [id number] / [id number] / [id number] Lens Intraoc 17.0 - [id number] - [id number] Implanted:Qty: 1 on 03/01/2019 by Quincy Paiz MD at OR [facility] Left: Eye [employer]OM[employer] 09/12/2022 [id number] / [id number] / [id number] documented as of this encounter Advance Directives Documents on File Type Date Recorded Patient Environmental Services Lead Expl 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
--- OUTSIDE RECORDS SUMMARY | 2022-11-16 13:15 | External Medical Summary | Summary of Care ---
Author Name Unknown Organization [place] [address] Care Team Providers Care Security Consultant Name Role Phone Smith Orozco MD Primary Care Provider + [phone] Reason for Visit * Reason Comments Follow Up Encounter Details Date Type Department Care Team Description 06/28/2020 Office Visit Cardiology, [facility] [address] [place] [address] Anson Banegas DO [address] [place] [address] [phone] Ischemic cardiomyopathy*; Type 2 diabetes mellitus with hemoglobin A1c goal of less than 8.0% ([facility]); Atherosclerosis of [place] coronary artery of [place] heart without angina pectoris; Dyslipidemia, goal LDL below 70; Old [place] (myocardial infarction); Statin intolerance; Essential hypertension with [...] HCl 2 MG Oral CapsuleIndications:A therosclerosis of [place] coronary artery of [place] heart without angina pectoris,BPH with obstruction/lower urinary tract symptoms,Essential hypertension with goal blood pressure less than 140/90 Take 1 Cap by mouth at bedtime. 90 Cap 1 03/01/2020 Active Valsartan 320 MG Oral TabletIndications:At herosclerosis of [place] coronary artery of [place] heart without angina pectoris,Primary hypertension Take 1 Tab by mouth daily. 90 Tab 1 03/01/2020 Active amLODIPine Besylate 5 MG Oral Tablet (Norvasc)Indications :Essential hypertension with goal blood pressure less than 140/90,Old [place] (myocardial infarction) Take 1 Tab by mouth daily. 90 Tab 3 05/03/2020 Active Isosorbide Mononitrate ER 60 MG Oral Tablet Extended Release 24 Hour (Imdur) Take 1 Tab by mouth daily. In the morning 90 Tab 3 05/03/2020 Active Praluent 75 MG/ML Subcutaneous Solution Auto-injector (Alirocumab)Indicati ons:Atherosclerosis of [place] coronary artery of [place] heart without angina pectoris,Dyslipidemi a, goal LDL below 70,Old [place] (myocardial infarction),Type 2 diabetes mellitus with hemoglobin A1c goal of less than 8.0% ([facility]),Statin intolerance Inject 75 mg under the [...] to patient at prior appointment. Atherosclerosis of [place] co ronary artery of [place] heart without angina pectoris 11/30/2001 GENERAL OSTEOARTHROSIS Multiple pulmonary nodules Complex renal cyst Overview: 3.8 cm; L Old [place] (myocardial infarction) documented as of this encounter (statuses as of 06/28/2020) Resolved Problems Problem Noted Date Resolved Date Genomics Cardio Research Other*[id number] 201004/22/2016 Overview: Study Titile: Genomics Markers for Patients with Cardiovascular Disease Project # [id number] PI: Baljinder Hung MD Please call [phone] with study related questions HTN, goal below [...] today. Past Medical History: Diagnosis Date Acute [place], inferior wall, subsequent episode of care ([facility]) 1994 BPH with obstruction/lower urinary tract symptoms 11/01/2009 CKD (chronic kidney disease) stage 2, GFR 60-89 ml/min Coronary atherosclerosis of [place] coronary artery 11/30/2001 DM type 2, goal A1c below 7 Elevated PSA 09/30/2017 PSA 7.15 Examination of eyes and vision 09/20/13 no diabetic or hypertensive retinopathy Generalized osteoarthritis HTN, goal below 140/90 Mixed dyslipidemia Multiple pulmonary nodules 03/20/13 Old [place] (myocardial infarction) 1994 Peptic ulcer Renal mass, left 2014 3.8 cm Type 2 diabetes mellitus with hemoglobin A1c goal of less than 8.0% ([facility]) 01/11/2009 Per Diabetes Taxonomy. ICD-10 update of inactive term Patient Active Problem List Diagnosis Code GENERAL OSTEOARTHROSIS M15.9 Atherosclerosis of [place] coronary artery of [place] heart without angina pectoris I25.10 ADVANCE DIRECTIVE [...] and hypertension (HCC) E11.22, I12.9, N18.2 Old [place] (myocardial infarction) I25.2 Past Surgical History: Procedure Laterality Date CABG, ARTERIAL, SINGLE 12/26/2010 CORONARY ARTERY BYPASS GRAFT USING ARTERY 1 GRAFT performed by BERTHA SENIOR at OR [facility] CABG, ARTERY-VEIN, THREE 12/26/2010 CORONARY ARTERY BYPASS GRAFT ARTERIAL AND VENOUS 3 GRAFTS performed by BERTHA SENIOR at OR [facility] CORONARY ANGIOGRAPHY W/LEFT HEART CATH 12/03/2010 CORONARY ANGIOGRAPHY W/LEFT HEART CATH performed by BALJINDER HUNG at CARDIAC LABS [facility] CT CHEST W CONTRAST 07/11/13 non calcified [...] VEIN performed by BERTHA SENIOR at OR [facility] INFORMATION 1995 cardiac cath REMOVE CATARACT, INSERT LENS PROSTH Right 02/07/2019 right EXTRACAPSULAR CATARACT REMOVAL WITH INTRAOCULAR LENS performed by Quincy Paiz MD at OR [facility] REMOVE CATARACT, INSERT LENS PROSTH Left 03/01/2019 left EXTRACAPSULAR CATARACT REMOVAL WITH INTRAOCULAR LENS performed by Quincy Paiz MD at OR [facility] REPAIR INITIAL INGUINAL HERNIA REDUCIBLE AGE [...] This chart was completed in part utilizing [employer] Speech Voice Recognition Software. Grammatical errors, random word insertions, prounoun errors, and incomplete sentences are an occasional consequence of this system due to software limitations, ambient noise, and hardware issues. Any formal questions or concerns about the content, text, or information contained within the body of this dictation should be directly addressed to the provider for clarification. Anson Banegas DO Cardiology, [facility] [address] [place] [address] 06/28/2020 documented in this encounter Nursing Notes * Violet Rodriguez LPN - 06/28/2020 10:51 AM EDT Pt here for c/o edema and increased bp, Positive for non pitting bilateral lower ext documented in this encounter Plan of Treatment Upcoming Encounters Date Type Specialty Care Team Description 07/05/2020 Pharmacy Pharmacy Medication, [facility] Refill, [facility] [address] [address] 07/12/2020 Office Visit Cardiology Alcon Lott PA-C [address] [facility] [address] [place] [address] [phone] 08/30/2020 Office Visit Internal Medicine Smith Orozco MD [address] [place] [address] [place] [place] [address] [phone] 11/01/2020 Office Visit Dermatology Kim Kong MD [address] [place] [address] [place] [address] [phone] 11/06/2020 Office Visit Cardiology Alcon Lott PA-C 132 [facility] [place] [place] [address] [phone] 02/05/2021 Pharmacy Pharmacy Medication, [facility] [place] [address] [phone] Pending Results Name Type Priority Associated Diagnoses Date /Time COMPREHENSIVE METABOLIC PANEL Lab Routine Type 2 diabetes mellitus with hemoglobin A1c goal of less than 8.0% (HCC) Atherosclerosis of [place] coronary artery of [place] heart without angina pectoris Dyslipidemia, goal LDL below 70 Old [place] (myocardial infarction) Statin intolerance Ischemic cardiomyopathy Essential hypertension with goal blood pressure less than 140/90 06/28/2020 11:20 AM EDT LIPID PANEL WITH DIRECT LDL IF TG IS HIGH Lab Routine Type 2 diabetes mellitus with hemoglobin A1c goal of less than 8.0% (HCC) Atherosclerosis of [place] coronary artery of [place] heart without angina pectoris Dyslipidemia, goal LDL below 70 Old [place] (myocardial infarction) Statin intolerance Ischemic cardiomyopathy Essential hypertension with goal blood pressure less than 140/90 06/28/2020 11:20 AM EDT TSH Lab Routine Type 2 diabetes mellitus with hemoglobin A1c goal of less than 8.0% (HCC) Atherosclerosis of [place] coronary artery of [place] heart without angina pectoris Dyslipidemia, goal LDL below 70 Old [place] (myocardial infarction) Statin intolerance Ischemic cardiomyopathy Essential hypertension with goal blood pressure less than 140/90 06/28/2020 11:20 AM EDT HEMOGLOBIN A1C Lab Routine Type 2 diabetes mellitus with hemoglobin A1c goal of less than 8.0% (HCC) Atherosclerosis of [place] coronary artery of [place] heart without angina pectoris Dyslipidemia, goal LDL below 70 Old [place] (myocardial infarction) Statin intolerance Ischemic cardiomyopathy Essential hypertension with goal blood pressure less than 140/90 06/28/2020 11:20 AM EDT Scheduled Orders Name Type Priority Associated Diagnoses Orde r Schedule COMPREHENSIVE METABOLIC PANEL Lab Routine Type 2 diabetes mellitus with hemoglobin A1c goal of less than 8.0% (HCC) Atherosclerosis of [place] coronary artery of [place] heart without angina pectoris Dyslipidemia, goal LDL below 70 Old [place] (myocardial infarction) Statin intolerance Ischemic cardiomyopathy Essential hypertension with goal blood pressure less than 140/90 Expected: 06/28/2020, Expires: 10/28/2020 LIPID PANEL WITH DIRECT LDL IF TG IS HIGH Lab Routine Type 2 diabetes mellitus with hemoglobin A1c goal of less than 8.0% (HCC) Atherosclerosis of [place] coronary artery of [place] heart without angina pectoris Dyslipidemia, goal LDL below 70 Old [place] (myocardial infarction) Statin intolerance Ischemic cardiomyopathy Essential hypertension with goal blood pressure less than 140/90 Expected: 06/28/2020, Expires: 10/28/2020 TSH Lab Routine Type 2 diabetes mellitus with hemoglobin A1c goal of less than 8.0% (HCC) Atherosclerosis of [place] coronary artery of [place] heart without angina pectoris Dyslipidemia, goal LDL below 70 Old [place] (myocardial infarction) Statin intolerance Ischemic cardiomyopathy Essential hypertension with goal blood pressure less than 140/90 Expected: 06/28/2020, Expires: 10/28/2020 HEMOGLOBIN A1C Lab Routine Type 2 diabetes mellitus with hemoglobin A1c goal of less than 8.0% (HCC) Atherosclerosis of [place] coronary artery of [place] heart without angina pectoris Dyslipidemia, goal LDL below 70 Old [place] (myocardial infarction) Statin intolerance Ischemic cardiomyopathy Essential [...] of this encounter Implants Implanted Type Area Screw Machine Operator Single Spindle Device Identifier Shelf Expiration Date Model / Serial / Lot Marker Coronary Amgm-Sd - [id number] Implanted:Qty: 1 on 12/26/2010 at OR [facility] N/A: Heart [employer] 10/13/2013 [facility] / / [id number] Sut Steel 6 M654g - [id number] Implanted:Qty: 5 on 12/26/2010 at OR [facility] Chest DO NOT USE 10/14/2015 M654G / / [id number] Band Ankur 225241 - [id number] Implanted:Qty: 1 on 12/26/2010 at OR [facility] Chest [employer] 225-241 / / [id number] Lens Intraoc 17.5 - [id number] - [id number] Implanted:Qty: 1 on 02/07/2019 by Quincy Paiz MD at OR [facility] Right: Eye [employer] 08/14/2023 [id number] / [id number] / [id number] Lens Intraoc 17.0 - [id number] - [id number] Implanted:Qty: 1 on 03/01/2019 by Quincy Paiz MD at OR [facility] Left: Eye [employer]OM[employer] 09/12/2022 [id number] / [id number] / [id number] documented as of this encounter Results * CBC (06/28/2020 11:20 AM EDT) WBC 4.85 4.00 - 10.80 K/uL [facility] [place] [facility]10 RBC 4.08(L) 4.50 - 5.25 M/uL [facility]10 HGB 14.1 14.0 - 16.8 g/dL [facility]10 HCT 40.9 40.0 - 48.4 % [facility] 57-10 MCV 100.2(H) 82.0 - 99.5 fL [...] [facility] 57-10 [address] [place] [address] documented in this encounter Visit Diagnoses Diagnosis Ischemic cardiomyopathy- Primary Other specified forms of chronic ischemic heart disease Type 2 diabetes mellitus with hemoglobin A1c goal of less than 8.0% (HCC) Atherosclerosis of [place] coronary artery of [place] heart without angina pectoris Dyslipidemia, goal LDL below 70 Other and unspecified hyperlipidemia Old [place] (myocardial infarction) Old myocardial infarction Statin intolerance Other drug allergy Essential hypertension with goal blood pressure less than 140/90 documented in this encounter Advance Directives Documents on File Type Date Recorded Patient Pharmacy Picking Technician Expl 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
--- OUTSIDE RECORDS SUMMARY | 2022-11-16 13:15 | External Medical Summary ---
Author Name Unknown Address Unknown Organization [id number]:LABORATORY [facility] - [address] [place] [address] Laboratory Report Ordering Provider Test Date Status DEREK CHOKO 06/28/2020 11:20:14 Final Observation Date Value Abnormality Reference (Units ) Status TSH 06/28/2020 11:20:14 4.53 Above high normal 0. 27-4.20 (uIU/mL) Final Performing Location LABORATORY C - [address] [place] [address]
--- OUTSIDE RECORDS SUMMARY | 2022-11-16 13:15 | External Medical Summary | Summary of Care ---
Author Name Unknown Organization [place] [address] Care Team Providers Care Order Picker Name Role Phone Smith Orozco MD Primary Care Provider [phone] Reason for Visit * Reason Comments Medication Refill Encounter Details Date Type Department Care Team Description 07/05/2020 Pharmacy [facility], [address] [place] [address] Medication, [facility] Special[facility] Refill, [address] [place] [address] [phone] Encounter for medication refill* Allergies Active Allergy [...] HCl 2 MG Oral CapsuleIndications:A therosclerosis of [place] coronary artery of [place] heart without angina pectoris,BPH with obstruction/lower urinary tract symptoms,Essential hypertension with goal blood pressure less than 140/90 Take 1 Cap by mouth at bedtime. 90 Cap 1 03/01/2020 Active Valsartan 320 MG Oral TabletIndications:At herosclerosis of [place] coronary artery of [place] heart without angina pectoris,Primary hypertension Take 1 Tab by mouth daily. 90 Tab 1 03/01/2020 Active amLODIPine Besylate 5 MG Oral Tablet (Norvasc)Indications :Essential hypertension with goal blood pressure less than 140/90,Old [place] (myocardial infarction) Take 1 Tab by mouth [...] MG/ML Subcutaneous Solution Auto-injector (Alirocumab)Indicati ons:Atherosclerosis of [place] coronary artery of [place] heart without angina pectoris,Dyslipidemi a, goal LDL below 70,Old [place] (myocardial infarction),Type 2 diabetes mellitus with hemoglobin A1c goal of less than 8.0% ([facility]),Statin intolerance Inject 75 mg under the [...] renal cyst Overview: 3.8 cm; L Old [place] (myocardial infarction) documented as of this encounter (statuses as of 07/05/2020) Resolved Problems Problem Noted Date Resolved Date Genomics Cardio Research Other*[id number] 201004/22/2016 Overview: Study Titile: Genomics Markers for Patients with Cardiovascular Disease Project # [id number] PI: Amalia Kingsley MD Please call [phone] with study related questions HTN, goal below [...] 01/24/2002 10/12/2015 Solar lentigo 10/27/2001 04/30/2016 ACUTE ND; INFERIOR WALL;SUBSEQUENT EPISODE CARE 06/21/2013 HYPERTENSION NOS [...] get this refilled through us. Beatris Mcgraw Bit And Shank Department Supervisor [facility] 07/05/2020, 3:41 PM documented in this encounter Plan of Treatment Upcoming Encounters Date Type Specialty Care Team Description 07/12/2020 Office Visit Cardiology Alcon Lott PA-C 132 [facility] [place] [address] [phone] 08/20/2020 Office Visit Internal Medicine Smith Orozco MD [address] [place] [address] [place] [address] 11/01/2020 Office Visit Dermatology Kim Kong MD [address] [facility] [place] [address] [phone] 11/06/2020 Office Visit Cardiology Aclon Lott PA-C [facility] [place] [address] [phone] Health Maintenance Due Date Last Done Comments [...] of this encounter Implants Implanted Type Area Student Success Counselor Device Identifier Shelf Expiration Date Model / Serial / Lot Marker Coronary [facility] - [id number] Implanted:Qty: 1 on 12/26/2010 at [place] [facility] N/A: Heart [employer] 10/13/2013 [facility] / / [id number] Sut Steel 6 M654g - [id number] Implanted:Qty: 5 on 12/26/2010 at [place] [facility] Chest DO NOT USE 10/14/2015 M654G / / [id number] Alonso Pascual 225-573 - [id number] Implanted:Qty: 1 on 12/26/2010 at OR [facility] Chest [employer] 225-241 / / [id number] Lens Intraoc 17.5 - [id number] - [id number] Implanted:Qty: 1 on 02/07/2019 by Quincy Paiz MD at OR [facility] Right: Eye [employer]OM[employer] 08/14/2023 [id number] / [id number] / [id number] Lens Intraoc 17.0 - [id number] - [id number] Implanted:Qty: 1 on 03/01/2019 by Quincy Paiz MD at OR [facility] Left: Eye [employer]OM[employer] 09/12/2022 [id number] / [id number] / [id number] documented as of this encounter Visit Diagnoses Diagnosis Encounter for medication refill- Primary Issue of repeat prescriptions documented in this encounter Advance Directives Documents on File Type Date Recorded Patient Manager Administration Expl 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
--- OUTSIDE RECORDS SUMMARY | 2022-11-16 13:15 | External Medical Summary ---
Author Name Unknown Address Unknown Organization K01:[facility] [place] [address] [place] [address] Laboratory Report Ordering Provider Test Date Status IZABELA CHO 06/28/2020 11:20:13 Final Observation Date Value Abnormality Reference (Units ) Status HbA1C 06/28/2020 11:20:13 7.6 Above high normal 4. 0-5.6 (%) Final Performing Location [facility] - [address] [place] [address]
--- OUTSIDE RECORDS SUMMARY | 2022-11-16 13:15 | External Medical Summary | Summary of Care ---
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 Name Role Phone Smith Orozco MD Primary Care Provider Reason for Visit * Reason Comments Medication Refill Encounter Details Date Type Department Care Team Description 07/05/2020 Pharmacy [facility], [address] [place] [address] Medication, [facility] Specialty Refill, [address] [place] [address] [phone] Encounter for medication refill* Allergies Active Allergy [...] HCl 2 MG Oral CapsuleIndications:A therosclerosis of [place] coronary artery of [place] heart without angina pectoris,BPH with obstruction/lower urinary tract symptoms,Essential hypertension with goal blood pressure less than 140/90 Take 1 Cap by mouth at bedtime. 90 Cap 1 03/01/2020 Active Valsartan 320 MG Oral TabletIndications:At herosclerosis of [place] coronary artery of [place] heart without angina pectoris,Primary hypertension Take 1 [...] MG/ML Subcutaneous Solution Auto-injector (Alirocumab)Indicati ons:Atherosclerosis of [place] coronary artery of [place] heart without angina pectoris,Dyslipidemi a, goal LDL below 70,Old [place] (myocardial infarction),Type 2 diabetes mellitus with hemoglobin A1c goal of less than 8.0% ([facility]),Statin intolerance Inject 75 mg under the skin [...] to patient at prior appointment. Atherosclerosis of [place] co ronary artery of [place] heart without angina pectoris 11/30/2001 GENERAL OSTEOARTHROSIS Multiple pulmonary nodules Complex renal cyst Overview: 3.8 cm; L Old [place] (myocardial infarction) documented as of this encounter (statuses as of 07/05/2020) Resolved Problems Problem Noted Date Resolved Date Genomics Cardio Research Other*[id number] 201004/22/2016 Overview: Study Titile: Genomics Markers for Patients with Cardiovascular Disease Project # [id number] PI: Amalia Kingsley MD Please call [phone] with study related questions HTN, goal below [...] get this refilled through us. Beatris Mcgraw Chemist [facility] 07/05/2020, 3:41 PM documented in this encounter Plan of Treatment Upcoming Encounters Date Type Specialty Care Team Description 07/12/2020 Office Visit Cardiology Alcon Lott PA-C 132 [facility] [place] [address] [phone] 08/20/2020 Office Visit Internal Medicine Smith Orozco MD [address] [place] [address] [place] [address] 11/01/2020 Office Visit Dermatology Kim Kong MD [address] [facility] [place] [address] [phone] 11/06/2020 Office Visit Cardiology Alcon Lott PA-C [facility] [place] [address] [phone] Health Maintenance Due Date Last Done Comments [...] of this encounter Implants Implanted Type Area Network Technician Device Identifier Shelf Expiration Date Model / Serial / Lot Marker Coronary [facility] - [id number] Implanted:Qty: 1 on 12/26/2010 at [place] [facility] N/A: Heart [employer] 10/13/2013 [facility] / / [id number] Sut Steel 6 M654g - [id number] Implanted:Qty: 5 on 12/26/2010 at [place] [facility] Chest DO NOT USE 10/14/2015 M654G / / [id number] Alonso Pascual 225-310 - [id number] Implanted:Qty: 1 on 12/26/2010 at OR [facility] Chest [employer] 225-241 / / [id number] Lens Intraoc 17.5 - [id number] - [id number] Implanted:Qty: 1 on 02/07/2019 by Quincy Paiz MD at OR [facility] Right: Eye [employer] 08/14/2023 [id number] / [id number] / [id number] Lens Intraoc 17.0 - [id number] - [id number] Implanted:Qty: 1 on 03/01/2019 by Quincy Paiz MD at OR [facility] Left: Eye [employer]OM[employer] 09/12/2022 [id number] / [id number] / [id number] documented as of this encounter Visit Diagnoses Diagnosis Encounter for medication refill- Primary Issue of repeat prescriptions documented in this encounter Advance Directives Documents on File Type Date Recorded 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
--- OUTSIDE RECORDS SUMMARY | 2022-11-16 13:15 | External Medical Summary ---
Author Name Unknown Address Unknown Organization K0G[facility] [address] [place] [address] Laboratory Report Ordering Provider Test Date Status IZABELA CHO 06/28/2020 11:20:13 Final Observation Date Value Abnormality Reference (Units ) Status WBC, Total 06/28/2020 11:20:13 4.85 4.00-10.8 0 (K/uL) Final RBC 06/28/2020 11:20:13 4.08 Below low normal 4.5 0-5.25 (M/uL) Final Hemoglobin 06/28/2020 11:20:13 14.1 14.0-16.8 (g/dL) Final HCT 06/28/2020 11:20:13 40.9 40.0-48.4 (%) Final MCV 06/28/2020 11:20:13 100.2 Above high normal 82 .0-99.5 (fL) Final MCH 06/28/2020 11:20:13 34.6 Above high normal 27 .0-34.0 (pg) Final MCHC 06/28/2020 11:20:13 34.5 32.0-36.0 (g/dL) Final RDW 06/28/2020 11:20:13 12.2 11.5-15.5 (%) Final Platelets 06/28/2020 11:20:13 159 140-400 (K /uL) Final MPV 06/28/2020 11:20:13 9.9 6.6-11.1 ( fL) Final Performing Location LABORATORY [facility]-[address] 0 - [address] [place] [address]
--- OUTSIDE RECORDS SUMMARY | 2022-11-16 13:16 | External Medical Summary | Summary of Care ---
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 He put tretinoin cream on. Encounter Details Date Type Department Care Team Description 04/26/2020 Office Visit Dermatology [facility] [address] [place] [address] Kim Kong MD [address] [place] [address] [phone] AK (actinic keratosis)*; Hx of actinic keratosis; Scar; Hx of nonmelanoma skin cancer; Open comedone Allergies Active Allergy Reactions Severity Noted Date Comments Acetaminophen Renal complications 04/27/2009 Aspirin 08/13/2000 Stomach pain Cholestyramine 08/13/2000 Kidney pain Atorvastatin Calcium 04/28/2007 cramping Niacin Muscle pain 07/22/2007 Simvastatin Hives 08/13/2000 Ezetimibe 04/28/2007 Cramping ankles, turned feet inward documented as of this encounter (statuses as of 04/26/2020) Medications Medication Sig Dispensed Refills Start Date [...] mouth daily. 90 Cap 1 01/16/2020 Active amLODIPine Besylate 5 MG Oral Tablet (NORVASC)Indications :Essential hypertension with goal blood pressure less than 140/90,Old [place] (myocardial infarction) TAKE 1 TABLET BY MOUTH TWICE A DAY 180 Tab 1 01/20/2020 Active glipiZIDE ER 10 MG Oral Tablet [...] HCl 2 MG Oral CapsuleIndications:A therosclerosis of [place] coronary artery of [place] heart without angina pectoris,BPH with obstruction/lower urinary tract symptoms,Essential hypertension with goal blood pressure less than 140/90 Take 1 Cap by mouth at bedtime. 90 Cap 1 03/01/2020 Active Valsartan 320 MG Oral TabletIndications:At herosclerosis of kar[place] coronary artery of [place] heart without angina pectoris,Primary hypertension Take 1 Tab by mouth daily. 90 Tab 1 03/01/2020 Active documented as of this encounter (statuses as of 04/26/2020) Active Problems Problem Noted Date Type 2 [...] to patient at prior appointment. Atherosclerosis of kar[place] co ronary artery of [place] heart without angina pectoris 11/30/2001 GENERAL OSTEOARTHROSIS Multiple pulmonary nodules Complex renal cyst Overview: 3.8 cm; L Old HI (myocardial infarction) documented as of this encounter (statuses as of 04/26/2020) Resolved Problems Problem Noted Date Resolved Date Genomics Cardio Research Other*[id number] 201004/22/2016 Overview: Study Titile: Genomics Markers for Patients with Cardiovascular Disease Project # [id number] PI: Amalia Kingsley MD Please call [phone] with study related questions HTN, goal below [...] as of this encounter (statuses as of 04/26/2020) Immunizations Name Administration Dates Next Due Pneumococcal [...] Pressure - - Pulse - - Temperature 36.2 C (97.1 F) 04/26/2020 10:[address] Respiratory Rate - - Oxygen Saturation - - Inhaled Oxygen Concentration - - Weight - - Height - - Body Mass Index - - documented in this encounter Progress Notes * Kim Kong MD - 04/26/2020 10:36 AM EST SUBJECTIVE: History of Present Illness: Cl Reynolds is a 79 year old male seen today for follow up - skin check (partial, pt declines gown). Last Office/Telemedicine Visit: 11/11/2019. New spot on L cheek x likely weeks, sore, won't heal. 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 HEME/LYMPH: No new or enlarging lumps or bumps. MEDICA TIONS: Current Outpatient Medications Medication Sig Dispense Refill Finasteride 5 MG Oral Tablet (PROSCAR) Take [...] 2 times a day. 180 Tab 1 amLODIPine Besylate 5 MG Oral Tablet (NORVASC) TAKE 1 TABLET BY MOUTH TWICE A DAY 180 Tab 1 Omeprazole 20 MG Oral [...] completed and are normal except: 1. L occipital scalp - open comedone 2. L cheek lateral - keratotic pink patch, slightly edematous; tiny keratotic pink papule R crown 3. Scar - L lateral neck and L posterior helix ASSESS MENT/PLAN: 1. Open comedone - Benign nature was discussed and no further intervention needed. Advised to call with any changes. 2. AKs - Cryosurgery explained to the patient, verbal consent obtained, patient, site and procedureverified, time-out called, and then cryotherapy was performed with Liquid Nitrogen via cryo spray unit to 2 lesions. Location noted in physical exam. Post op course explained. Follow with Efudex cream nightly for 2 weeks, pt aware of irritation SE, then revert to nightly tretinoin to whole face again 3. Scars - Hx NMSC - no evidence of recurrence Discussed sun protection with patient including proper use of sunscreens and protective clothing. ABCDs explained. Follow-up: 6 months, sooner if L cheek recalcitrant There were no barriers tolearning and no other pain was related to today's visit. The patient and/or person accompanying patient demonstrates understanding of the visit and treatment. Kim Kong MD 04/26/2020 10:36 AM documented in this encounter Nursing Notes * Merry Ba LPN - 04/26/2020 10:37 AM EST Patient identified by name and date of . Do you have any concerns about pain management for today's visit? No Living Will or Advance Directive for Health Care as noted on problem list. [employer] is a way you can talk to your provider online through e-mail. Would you like to sign up? I can activate it for you? ALREADY ACTIVE Chief Complaint Patient presents with Follow Up Patient here for a red dry spot on his left jaw he's had for a while but is becoming itchy and sorein the past 4-5 days. He put tretinoin cream on. documented in this encounter Plan of Treatment Upcoming Encounters Date Type Specialty Care Team Description 05/03/2020 Office Visit Cardiology Alcon Lott PA-C [address] [facility] [place] [address] 08/30/2020 Office Visit Internal Medicine Smith Orozco MD [address] [place] [address] [place] [address] 11/01/2020 Office Visit Dermatology Kim Kong MD [address] [place] [address] [place] [address] [phone] Health Maintenance Due Date Last Done Comments [...] of this encounter Implants Implanted Type Area Fittings Tightener Device Identifier Shelf Expiration Date Model / Serial / Lot Marker Coronary [facility] - [id number] [place] [facility] [place] Heart [employer] 10/13/2013 AM-SD / / [id number] Sut Steel 6 M654g - [id number] [place]planted:Qty: 5 on 12[place]26/2010 [place] [facility] [place] Chest DO NOT USE 10/14/2015 M654G / / [id number] [facility] 225-241 - [id number] Implanted:Qty: 1 on 12/26/2010 [place] [facility] [place] Chest [employer] 225-241 / / [id number] Lens Intraoc 17.5 - [id number] - [id number] Implanted:Qty: 1 on 02/07/2019 by Quincy Paiz MD at OR [facility] Right: Eye [employer]USCH [employer] LOMB 08/14/2023 [id number] / [id number] / [id number] Lens Intraoc 17.0 - [id number] - [id number] Implanted:Qty: 1 on 03/01/2019 by Quincy Paiz MD at OR [facility] Left: Eye BAUSCH [employer] LOMB 09/12/2022 [id number] / [id number] / [id number] documented as of this encounter Visit Diagnoses Diagnosis AK (actinic keratosis)- Primary Actinic keratosis Hx of actinic keratosis Personal history of diseases of skin and subcutaneous tissue Scar Scar condition and fibrosis of skin Hx of nonmelanoma skin cancer Personal history of other malignant neoplasm of skin Open comedone Other acne documented in this encounter Advance Directives Documents on File Type Date Recorded 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
--- OUTSIDE RECORDS SUMMARY | 2022-11-16 13:16 | External Medical Summary | Summary of Care ---
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 Name Role Phone Smith Orozco MD Primary Care Provider [phone] Encounter Details Date Type Department Care Team Description 02/21/2020 Scan Encounter Unspecified Department <No scans attached> Allergies Active Allergy Reactions Severity Noted Date Comments Acetaminophen Renal complications 04/27/2009 Aspirin 08/13/2000 Stomach pain Cholestyramine 08/13/2000 Kidney pain Atorvastatin Calcium 04/28/2007 cramping Niacin Muscle pain 07/22/2007 Simvastatin Hives 08/13/2000 Ezetimibe 04/28/2007 Cramping ankles, turned feet inward documented as of this encounter (statuses as of 02/22/2020) Medications Medication Sig Dispensed Refills Start Date [...] TABS one pill each day 0 Active Terazosin HCl 2 MG CapsuleIndications:A therosclerosis of [place] coronary artery of [place] heart without angina pectoris,BPH with obstruction/lower urinary tract symptoms,Essential hypertension with goal blood pressure less than 140/90 Take 1 Cap by mouth at bedtime. 90 Cap 3 03/21/2019 Active tretinoin (RETIN-A) 0.05 % creamIndications:Act inic keratosis APPLY NIGHTLY TO FACE DIRECTED,CAN MIX WITH PONDS 45 g 5 03/28/2019 Active finasteride (PROSCAR) 5 MG TabletIndications:BP H with obstruction/lower urinary tract symptoms Take 1 Tab by mouth daily. 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 180 Tab 1 08/30/2019 Active Valsartan 320 MG TabletIndications:At herosclerosis of [place] coronary artery of [place] heart without angina pectoris,Primary hypertension Take 1 Tab by mouth daily. 90 Tab 1 09/01/2019 Active ONETOUCH ULTRA STRPIndications:Type 2 diabetes mellitus [...] pressure less than 140/90,Old [place] (myocardial infarction) TAKE 1 TABLET BY MOUTH TWICE A DAY 180 Tab 1 01/20/2020 Active glipiZIDE ER 10 MG Oral Tablet Extended Release 24 Hour (GLUCOTROL XL)Indications:Type 2 diabetes mellitus with hemoglobin A1c goal of less than 8.0% (HCC) Take 1 Tab by mouth 2 times a day. 180 Tab 1 02/13/2020 Active documented as of this encounter (statuses as of 02/22/2020) Active Problems Problem Noted Date Type 2 [...] to patient at prior appointment. Atherosclerosis of [place] co ronary artery of [place] shosh[place] heart without angina pectoris 11/30/2001 GENERAL OSTEOARTHROSIS Multiple pulmonary nodules Complex renal cyst Overview: 3.8 cm; L Old IA (myocardial infarction) documented as of this encounter (statuses as of 02/22/2020) Resolved Problems Problem Noted Date Resolved Date Genomics Cardio Research Other*[id number] 201004/22/2016 Overview: Study Titile: Genomics Markers for Patients with Cardiovascular Disease Project # [id number] PI: Amalia Kingsley MD Please call [phone] with study related questions HTN, goal below [...] as of this encounter (statuses as of 02/22/2020) Immunizations Name Administration Dates Next Due Pneumococcal [...] Assigned at Date Recorded Not on file documented as of this encounter Plan of Treatment Upcoming Encounters Date Type Specialty Care Team Description 03/01/2020 Office Visit Internal Medicine Smith Orozco MD [address] [place] [address] [place] [address] 04/24/2020 Office Visit Cardiology Alcon Lott PA-C [address] [facility] [place] [address] [phone] 06/29/2020 Office Visit Dermatology Kim Kong MD [address] [facility] [place] [address] [phone] Health Maintenance Due Date Last Done Comments *DEPRESSION SCREENING,ANNUAL FOR PTS 12 AND OVER 02/20/2019 DIABETES-EYE EXAM 11/10/2019 11/09/2018, , 10/10/2015, Additional history exists DIABETES-FOOT EXAM 01/25/2020 01/24/2019, 1 04/21/2017, 01/30/2017, Additional history exists DIABETES-HGBA1C EVERY 6 MONTHS 02/29/2020 08/30/2019, 03/31/2019, 08/19/2018, Additional history exists Yearly B-12 08/29/2020 08/30/2019, 08/2018, 08/12/2017 DTaP,Tdap,and Td Vaccines (2 - Td) 08/05/2022 08/05/2012, 03/16/2003 Pneumococcal Vaccine: 65+ Years Completed 10/16/2015, 12/15/2006, 04/01/2002 Zoster Vaccines Completed 05/25/2019, 09/2019, 11/15/2011 Influenza Vaccine (FLU shot) Completed 10/2019, 11/22/2018, 11/17/2017, Additional history exists MENINGOCOCCAL (MENACTRA/MENVEO) Aged Out No longer eligible based on patient's age to complete this topic documented as of this encounter Implants Implanted Type Area Electric Motor Tester Assembler Device Identifier Shelf Expiration Date Model / Serial / Lot Marker Coronary Am-Sd - [id number] Implanted:Qty: 1 on 12/26/2010 [place] [facility] [place]: Heart [employer] 10/13/2013 AM-SD / / [id number] Sut Steel 6 M654g - [id number] Implanted:Qty: 5 on 12/26/2010 [place] [facility] [place] Chest DO NOT USE 10/14/2015 M654G / / [id number] Band [employer] 225-312 - [id number] Implanted:Qty: 1 on 12/26/2010 [place] [facility] [place] Chest [employer] 225-241 / / [id number] Lens Intraoc 17.5 - [id number] - [id number] Implanted:Qty: 1 on 02/07/2019 by Quincy aPiz MD at OR [facility] Right: Eye BAUSCH [employer] LOMB 08/14/2023 [id number] / [id number] / [id number] Lens Intraoc 17.0 - [id number] - [id number] Implanted:Qty: 1 on 03/01/2019 by Quincy Paiz MD at OR [facility] Left: Eye BA[employer]CH [employer] LOMB 09/12/2022 [id number] / [id number] / [id number] documented as of this encounter Advance Directives Documents on File Type Date Recorded 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
--- OUTSIDE RECORDS SUMMARY | 2022-11-16 13:16 | External Medical Summary | Summary of Care ---
Author Name Unknown Organization [place] [address] Care Team Providers Care Driver Utility Worker Name Role Phone Smith Orozco MD Primary Care Provider [phone] Reason for Visit * Reason Comments Medication Administration Medication Administration Flu and/or Pne umo Inj Encounter Details Date Type Department Care Team Description 11/22/2019 Nurse Only Ancillary [address] [place] [id number] [facility] [address] [place] [id number] Medication Administration; Medication Admi... Allergies Active Allergy Reactions Severity Noted Date Comments Acetaminophen Renal complications 04/27/2009 Aspirin 08/13/2000 Stomach pain Cholestyramine 08/13/2000 Kidney pain Atorvastatin Calcium 04/28/2007 cramping Niacin Muscle pain 07/22/2007 Simvastatin Hives 08/13/2000 Ezetimibe 04/28/2007 Cramping ankles, turned feet inward documented as of this encounter (statuses as of 11/22/2019) Medications Medication Sig Dispensed Refills Start Date End Date Status GAVI 180 MG PO TABSIndications:[place] rgic rhinitis One pill by mouth once a day for allergies 30 5 07/23/2009 Active Additional Information Patient taking differently: Oral, Indications: as needed, Reported on 02/02/2019 8:51 AM MAGNESIUM OXIDE 200 MG PO TABSIndications:Cram p in limb one tablet twice a day 60 Tab 5 07/16/2010 Active SB LOW DOSE ASA EC 81 MG PO TBECIndications:pm, thursday Take by mouth. Indications: pmond, thursday 0 Active MULTI-VITAMIN PO TABS one pill each day 0 Active Terazosin HCl 2 MG CapsuleIndications:A therosclerosis of [place] coronary artery of [place] heart without angina pectoris,BPH with obstruction/lower urinary tract symptoms,Essential hypertension with goal blood pressure less than 140/90 Take 1 Cap by mouth at bedtime. 90 Cap 3 03/21/2019 Active tretinoin (RETIN-A) 0.05 % creamIndications:Act inic keratosis APPLY NIGHTLY TO FACE DIRECTED,CAN MIX WITH PONDS 45 g 5 03/28/2019 Active omeprazole (PRILOSEC) 20 MG CPDRIndications:Pept ic ulcer Take 1 Cap by mouth daily. 90 Cap 1 07/18/2019 Active amLODIPine (NORVASC) 5 MG TabletIndications:Es sential hypertension with goal blood pressure less than 140/90,Old [place] (myocardial infarction) Take 1 Tab by mouth 2 times a day. 180 Tab 1 07/29/2019 Active glipiZIDE XL (GLUCOTROL XL) 10 MG [id number]:Type 2 diabetes mellitus with hemoglobin A1c goal of less than 8.0% (HCC) Take 1 Tab by mouth 2 times a day. 180 Tab 1 08/15/2019 Active finasteride (PROSCAR) 5 MG TabletIndications:BP H [...] Active Valsartan 320 MG TabletIndications:At herosclerosis of [place] coronary artery of [place] heart without angina pectoris,Primary hypertension Take 1 [...] A DAY 200 Each 3 11/15/2019 Active documented as of this encounter (statuses as of 11/22/2019) Active Problems Problem Noted Date Type 2 [...] as of this encounter (statuses as of 11/22/2019) Resolved Problems Problem Noted Date Resolved Date Genomics Cardio Research Other*[id number] 201004/22/2016 Overview: Study Titile: Genomics Markers for Patients with Cardiovascular Disease Project # [id number] PI: Amalia Kingsley MD Please call [phone] with study related questions HTN, goal below [...] as of this encounter (statuses as of 11/22/2019) Immunizations Name Administration Dates Next Due Pneumococcal [...] file Not on file Not on file Travel History Travel Start Travel End COVID-19 Exposure Response Date Recorded In the last month, have you been in contact with someone who was confirmed or suspected to have Coronavirus / COVID-19? No / Unsure 11/22/2019 8:10 AM EDT documented as of this encounter Patient Instructions * Patient Instructions* Citlaly Wills CCMA - 11/22/2019 8:16 AM EDT ~~PATIENT INSTRUCTIONS FOR FLU SHOT~~ Possible side effects of influenza vaccine, (flu shot), are usually mild and include: 1. Soreness or redness at injection site 2. Low grade fever 3. Body aches You may use Tylenol/Acetaminophen as needed for these symptoms. LET YOUR DOCTOR KNOW IMMEDIATELY IF YOU HAVE DIFFICULTY BREATHING OR SWALLOWING, EXPERIENCE ITCHINGOF FEET OR HANDS, HAVE SWELLING OF EYES, FACE OR INSIDE OF NOSE. documented in this encounter Progress Notes * Citlaly Wills CCMA - 11/22/2019 8:14 AM EDT PRE - ADMINISTRATION DOCUMENTATION Are you allergic to latex? No Are you experiencing any cold symptoms or fever? No Have you had Guillain-Brazoria Syndrome (an illness that causes paralysis) within the last 6 weeks? No Have you had the flu shot in the past? YES Have you ever had a reaction to the flu shot? No EBONY Giles, 11/22/2019 8:14 AM Immunization Administration Documentation Time Out Procedure Performed: [...] Encounters Date Type Specialty Care Team Description 02/14/2020 Imaging Radiology 03/01/2020 Office Visit Internal Medicine Smith Orozco MD [address] [place] [address] [place] [address] [phone] 04/24/2020 Office Visit Cardiology Alcon Lott PA-C [address] [facility] [place] [address] [phone] 06/29/2020 [facility] [address] [phone] Health Maintenance Due Date Last Done Comments *DEPRESSION SCREENING,ANNUAL FOR PTS 12 AND OVER 02/20/2019 Influenza Vaccine (FLU shot) (#1) 2019 11/22/2018, 11/17/2017, 11/21/2016, Additional history exists DIABETES-EYE EXAM 11/10/2019 11/09/2018, , 10/10/2015, Additional history exists DIABETES-FOOT EXAM 01/25/2020 01/24/2019, 1 04/21/2017, 01/30/2017, Additional history exists DIABETES-HGBA1C EVERY 6 MONTHS 02/29/2020 08/30/2019, 03/31/2019, 08/19/2018, Additional history exists Yearly B-12 08/29/2020 08/30/2019, 08/2018, 08/12/2017 DTaP,Tdap,and Td Vaccines (2 - Td) 08/05/2022 08/05/2012, 03/16/2003 Pneumococcal Vaccine: 65+ Years Completed 10/16/2015, 12/15/2006, 04/01/2002 Zoster Vaccines Completed 05/25/2019, 09/2019, 11/15/2011 MENINGOCOCCAL (MENACTRA/MENVEO) Aged Out No longer eligible based on patient's age to complete this topic documented as of this encounter Implants Implanted Type Area Direct Support Worker Device Identifier Shelf Expiration Date Model / Serial / Lot Marker Coronary Am-Sd - [id number] Implanted:Qty: 1 on 12/26/2010 at [place] [facility] [place] N/A: Heart [employer] 10/13/2013 AMGM-SD / / [id number] Sut Steel 6 M654g - [id number] Implanted:Qty: 5 on 12/26/2010 at [place] [facility] [place] Chest DO NOT USE 10/14/2015 M654G / / [id number] [facility] 225-241 - [id number] Implanted:Qty: 1 on 12/26/2010 at [place] [facility] [place] Chest [employer] 225-241 / / [id number] Lens Intraoc 17.5 - [id number] - [id number] Implanted:Qty: 1 on 02/07/2019 by Quincy Paiz MD at OR [facility] Right: Eye [employer]CH [employer] LOMB 08/14/2023 [id number] / [id number] / [id number] Lens Intraoc 17.0 - [id number] - [id number] Implanted:Qty: 1 on 03/01/2019 by Quincy Paiz MD at OR [facility] Left: Eye BAUSCH [employer] LOMB 09/12/2022 [id number] / [id number] / [id number] documented as of this encounter Visit Diagnoses Diagnosis Need for prophylactic vaccination and inoculation against influenza- Primary documented in this encounter Advance Directives Documents on File Type Date Recorded 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
--- OUTSIDE RECORDS SUMMARY | 2022-11-16 13:16 | External Medical Summary ---
Author Name Unknown Address [facility] [address] [place] [id number] Phone Organization K01:[place] [address] [place] [id number] Laboratory Report Ordering Provider Test Date Status LOLIS BRADFORD 03/01/2020 14:51:00 Final Observation Date Value Abnormality Reference (Units ) Status Albumin, Urine 03/01/2020 22:36 13.28 (mg/dL) Final Creatinine [Moles/volume] in Urine 03/01/2020 22:36 36 (mg/dL) Final Microalbumin / Creatinine Ratio 03/01/2020 22:36 369 Above high normal <30 (mg/g creat) Final Performing Location [facility] [address] [facility] [address]
--- OUTSIDE RECORDS SUMMARY | 2022-11-16 13:16 | External Medical Summary | Summary of Care ---
Author Name Unknown Organization [place] [address] Care Team Providers Care Conservation Engineer Name Role Phone Smith Orozco MD Primary Care Provider + [phone] Reason for Visit * Reason Comments Re-Check Encounter Details Date Type Department Care Team Description 03/01/2020 Office Visit Internal Medicine [address] [address] Smith Orozco MD [address] [place] [address] [place] [address] [phone] Type 2 diabetes mellitus with diabetic nephropathy (HCC)*; DM type 2 nursing care encounter (HCC); BPH with obstruction/lower urinary tract symptoms; Type 2 diabetes mellitus with hemoglobin A1c goal of less than 8.0% (HCC); Atherosclerosis of enterprise coronary artery of enterprise heart without angina pectoris; Essential hypertension with goal blood pressure less than 140/90; Primary hypertension; Dyslipidemia, goal LDL below 70; Ischemic cardiomyopathy; Multiple pulmonary nodules; Old WA (myocardial infarction); Statin intolerance Allergies Active Allergy Reactions Severity Noted Date Comments Acetaminophen Renal complications 04/27/2009 Aspirin 08/13/2000 Stomach pain Cholestyramine 08/13/2000 Kidney pain Atorvastatin Calcium 04/28/2007 cramping Niacin Muscle pain 07/22/2007 Simvastatin Hives 08/13/2000 Ezetimibe 04/28/2007 Cramping ankles, turned feet inward documented as of this encounter (statuses as of 03/01/2020) Medications Medication Sig Dispensed Refills Start Date [...] Active amLODIPine Besylate 5 MG Oral Tablet (NORVASC)Indicatio ns:Essential hypertension with goal blood pressure less than 140/90,Old WA (myocardial infarction) TAKE 1 TABLET BY MOUTH [...] HCl 2 MG Oral CapsuleIndications :Atherosclerosis of enterprise coronary artery of enterprise heart without angina pectoris,BPH with obstruction/lower urinary tract symptoms,Essential hypertension with goal blood pressure less than 140/90 Take 1 Cap by mouth at bedtime. 90 Cap 1 03/01/2020 Active Valsartan 320 MG Oral TabletIndications: Atherosclerosis of enterprise coronary artery of enterprise heart without angina pectoris,Primary hypertension Take 1 Tab by mouth daily. 90 Tab 1 03/01/2020 Active Terazosin HCl 2 MG CapsuleIndications :Atherosclerosis of enterprise coronary artery of enterprise heart without angina pectoris,BPH with obstruction/lower urinary tract symptoms,Essential hypertension with goal blood pressure less than 140/90 Take 1 Cap by mouth at bedtime. 90 Cap 3 03/21/2019 0 Discontinue d(Refill) finasteride (PROSCAR) 5 MG TabletIndications: BPH with obstruction/lower urinary tract symptoms Take 1 Tab by mouth daily. 90 Tab 1 08/30/2019 0 Discontinue d(Refill) MetFORMIN (GLUCOPHAGE) 1000 MG TabletIndications: Type 2 diabetes mellitus with diabetic nephropathy (HCC),Type 2 diabetes mellitus with hemoglobin A1c goal of less than 8.0% (HCC) Take 1 Tab by mouth 2 times a day with morning and evening meals. 180 Tab 1 08/30/2019 0 Discontinue d(Refill) Valsartan 320 MG Oral TabletIndications: Atherosclerosis of enterprise coronary artery of enterprise heart without angina pectoris,Primary hypertension TAKE 1 TABLET BY MOUTH EVERY DAY 90 Tab 0 02/29/2020 0 Discontinue d(Refill) documented as of this encounter (statuses as of 03/01/2020) Active Problems Problem Noted Date Type 2 [...] to patient at prior appointment. Atherosclerosis of enterprise co ronary artery of enterprise heart without angina pectoris 11/30/2001 GENERAL OSTEOARTHROSIS Multiple pulmonary nodules Complex renal cyst Overview: 3.8 cm; L Old WA (myocardial infarction) documented as of this encounter (statuses as of 03/01/2020) Resolved Problems Problem Noted Date Resolved Date [employer] Other*[id number] 201004/22/2016 Overview: Study Titile: Gen[employer] Markers for Patients with Cardiovascular Disease Project # [id number] PI: Baljinder Hung MD Please call [phone] with study related questions HTN, goal below [...] as of this encounter (statuses as of 03/01/2020) Immunizations Name Administration Dates Next Due Pneumococcal [...] Sign Reading Time Taken Comments Blood Pressure 132/64 03/01/2020 2:27 PM EST Pulse 68 03/01/2020 2:27 PM EST Temperature 36.6 C (97.8 F) 03/01/2020 2:27 PM ES T Respiratory Rate 14 03/01/2020 2:27 PM EST Oxygen Saturation - - Inhaled Oxygen Concentration - - Weight 67.6 kg (149 lb) 03/01/2020 2:27 PM EST Height 165.1 cm (5' 5") 03/01/2020 2:27 PM EST Body Mass Index 24.79 03/01/2020 2:27 PM EST documented in this encounter Patient Instructions * Patient Instructions* Komal Shearer, SUCTION PLATE ROLLER HAND - 03/01/2020 2:31 PM EST Diabetes: Keeping Feet Healthy Inspect your feet [...] calluses yourself. Talk to your doctor or bandage winding machine operator (a doctor who specializes in foot care) [...] the area doesnt appear to be healing. [id number] [employer], [address] [place] [address], [place] [address]. All rights reserved. This information is not intended as a substitute for professional medical care. Always follow your healthcare professional's instructions. documented in this encounter Progress Notes * Smith Orozco MD - 03/01/2020 2:33 PM EST Cl is here for recheck. He has been tried and statins and can't take them. He could not tolerate3 different beta blockers either. He has the history of pulmonary nodules and would like a CXR. No complaints of headache, trouble with vision or hearing. Eating well, with no bowel or bladder complaints. Denies chest pain or palpitations. Denies shortness of breath, PND, or orthopnea. No skin rashes or breakdown. No changes in mentation. The rest of a 10 point review of systems is negative. Sometimes his feet swell a little bit. Health Maintenance addressed. Had flu and shingles shots, colonoscopy was 2012 and he is aged out. Past Medical History: Diagnosis Date Acute WA, inferior wall, subsequent episode of care ([facility]) 1994 BPH with obstruction/lower urinary tract symptoms 11/01/2009 CKD (chronic kidney disease) stage 2, GFR 60-89 ml/min Coronary atherosclerosis of enterprise coronary artery 11/30/2001 DM type 2, goal A1c below 7 Elevated PSA 09/30/2017 PSA 7.15 Examination of eyes and vision 09/20/13 no diabetic or hypertensive retinopathy Generalized osteoarthritis HTN, goal below 140/90 Mixed dyslipidemia Multiple pulmonary nodules 03/20/13 Old WA (myocardial infarction) 1994 Peptic ulcer Renal mass, left 2014 3.8 cm Type 2 diabetes mellitus with hemoglobin A1c goal of less than 8.0% ([facility]) 01/11/2009 Per Diabetes Taxonomy. ICD-10 update of inactive term Past Surgical History: Procedure Laterality Date CABG, ARTERIAL, SINGLE 12/26/2010 CORONARY ARTERY BYPASS GRAFT USING ARTERY 1 GRAFT performed by BERTHA SENIOR at OR [facility] CABG, ARTERY-VEIN, THREE 12/26/2010 CORONARY ARTERY BYPASS GRAFT ARTERIAL AND VENOUS 3 GRAFTS performed by BERTHA SENIOR at OR [facility] CORONARY ANGIOGRAPHY W/LEFT HEART CATH 12/03/2010 CORONARY ANGIOGRAPHY W/LEFT HEART CATH performed by BALJINDER HUNG at [facility] CT CHEST W CONTRAST 07/11/13 non calcified [...] performed by BERTHA SENIOR at OR [facility] INFORMATION 1994 cardiac cath REMOVE CATARACT, INSERT LENS PROSTH Right 02/07/2019 right EXTRACAPSULAR CATARACT REMOVAL WITH INTRAOCULAR LENS performed by Quincy Paiz MD at OR [facility] REMOVE CATARACT, INSERT LENS PROSTH Left 03/01/2019 left EXTRACAPSULAR CATARACT REMOVAL WITH INTRAOCULAR LENS performed by Quincy Paiz MD at OR [facility] REPAIR INITIAL INGUINAL HERNIA REDUCIBLE AGE [...] file Gets together: Not on file Attends restorationist service: Not on file Active member of [...] Current Outpatient Medications Medication Sig Dispense Refill Valsartan 320 MG Oral Tablet TAKE 1 TABLET BY MOUTH EVERY DAY 90 Tab 0 glipiZIDE ER 10 MG Oral Tablet Extended Release 24 Hour (GLUCOTROL XL) Take 1 Tab by mouth 2 times a day. 180 Tab 1 amLODIPine Besylate 5 MG Oral Tablet (NORVASC) TAKE 1 TABLET BY MOUTH TWICE A DAY 180 Tab 1 Omeprazole 20 MG Oral Capsule Delayed Release (PriLOSEC) Take 1 Cap by mouth daily. 90 Cap 1 finasteride (PROSCAR) 5 MG Tablet Take 1 Tab by mouth daily. 90 Tab 1 MetFORMIN (GLUCOPHAGE) 1000 MG Tablet Take 1 Tab by mouth 2 times a day with morning and evening meals. 180 Tab 1 Terazosin HCl 2 MG Capsule Take 1 Cap by mouth at bedtime. 90 Cap 3 MULTI-VITAMIN PO TABS one pill each day SB LOW DOSE ASA EC 81 MG PO TBEC Take by mouth. Indications: pmonday, day thursday MAGNESIUM OXIDE 200 MG PO TABS one tablet twice a day 60 Tab 5 OneTouch UltraSoft Lancets MISC USE ONE LANCET TO TEST BLOOD SUGAR LEVELS TWICE A DAY 200 Each 3 ONETOUCH ULTRA STRP USE ONE TEST STRIP TO TEST BLOOD SUGAR LEVELS TWICE A DAY 200 Strip 5 tretinoin (RETIN-A) 0.05 % cream APPLY NIGHTLY TO FACE DIRECTED,CAN MIX WITH PONDS 45 g 5 GAVI 180 MG PO TABS One [...] No Preserve, IM 11/27/2015, 11/21/2016 Seasonal Influenza, Trivalent, Adjuvanted, 65+ yrs 11/22/2018 Seasonal Influenza, Trivalent, with Preserve, 3yr & Above, Split 01/05/2001, 01/19/2002, 12/29/2002, 12/25/2003, 01/10/2005, 12/23/2005, 12/15/2006, 01/04/2008, 01/10/2009, 12/13/2009, 11/20/2010, 11/25/2011, 12/07/2012, 11/23/2013, 12/04/2014 TD - Tetanus/Diptheria (ADULT) 03/16/2003 TDAP (age 10 and older)(Boostrix) 08/05/2012 Varicella Zoster Vaccine (Adult) 11/15/2011 Zoster Vaccine Recombinant (Shingrix) 03/22/2019, 05/25/2019 LIPID PANEL WITH DIRECT LDL IF TG ABOVE 150 MG/DL Lucía Dt/Tm Resulted Value Status HOURS FASTING (hours) 08/19/18 8:36A 08/19/18 NOT FASTING C TRIGLYCERIDES (mg/dL) 08/19/18 8:36A 08/19/18 95 F CHOLESTEROL (mg/dL) 08/19/18 8:36A 08/19/18 176 F HDL (mg/dL) 08/19/18 8:36A 08/19/18 55 F CHOL/HDL RATIO ( ) 08/19/18 8:36A 08/19/18 3.2 F LDL (CALCULATED) (mg/dL) 08/19/18 8:36A 08/19/18 102 F LDL DIRECT(REFLEX) (mg/dL) 08/19/18 8:36A 08/19/18 F Value: NOT APPLICABLE HEMOGLOBIN, A1C(%) Lucía Dt/Tm Resulted Value Status 08/30/19 8:34A 08/30/19 7.3* FINAL 03/31/19 8:26A 03/31/19 7.3* FINAL 08/19/18 8:36A 08/19/18 6.9* FINAL O: Blood pressure 132/64, pulse 68, temperature 36.6 C (97.8 F), temperature source Tympanic, resp. rate 14, height 1.651 m (5' 5"), weight 67.6 kg (149 lb). General appearance: well developed, well nourished and in no acute distress. Head normocephalic andatraumatic. No facial asymmetry. Eye exam; PEERLA, EOMI. No scleral icterus or nystagmus. Conjunctiva are pink and not injected. Oropharynx: no exudate, no pharyngeal inflammation or post nasal drip.The palate is free of lesions and the uvula is normal. . Trachea is in the midline. Neck supple [...] unremarkable. A: Type 2 diabetes mellitus with diabetic nephropathy (HCC) (Primary) - metFORMIN HCl 1000 MG Oral Tablet (GLUCOPHAGE); Take 1 Tab by mouth 2 times a day with morning and evening meals. DM type 2 nursing care encounter ([facility]) - DIABETES FOOT EXAM BPH with obstruction/lower urinary tract symptoms - Finasteride 5 MG Oral Tablet (PROSCAR); Take 1 Tab by mouth daily. - Terazosin HCl 2 MG Oral Capsule; Take 1 Cap by mouth at bedtime. Type 2 diabetes mellitus with hemoglobin A1c goal of less than 8.0% ([facility]) - metFORMIN HCl 1000 MG Oral Tablet (GLUCOPHAGE); Take 1 Tab by mouth 2 times a day with morning and evening meals. Atherosclerosis of enterprise coronary artery of enterprise heart without angina pectoris - Terazosin HCl 2 MG Oral Capsule; Take 1 Cap by mouth at bedtime. - Valsartan 320 MG Oral Tablet; Take 1 Tab by mouth daily. Essential hypertension with goal blood pressure less than 140/90 - Terazosin HCl 2 MG Oral Capsule; Take 1 Cap by mouth at bedtime. Primary hypertension - Valsartan 320 MG Oral Tablet; Take 1 Tab by mouth daily. Dyslipidemia, goal LDL below 70 Ischemic cardiomyopathy Multiple pulmonary nodules - XR CHEST 2 VIEWS Old WA (myocardial infarction) Statin intolerance * Komal Shearer LPN - 03/01/2020 2:30 PM EST Socks and Shoes Removed for Annual Diabetic [...] Nursing Notes * Komal Shearer LPN - 03/01/2020 2:25 PM EST 6 month recheck Discuss follow up for his lungs. documented in this encounter Plan of Treatment Upcoming Encounters Date Type Specialty Care Team Description 04/24/2020 [facility] [address] [facility] [address] 06/29/2020 Office Visit Dermatology Kim Kong MD [address] [place] [address] [place] [address] [phone] 08/30/2020 Office Visit Internal Medicine Smith Orozco MD [address] [place] [address] [place] [address] Pending Results Name Type Priority Associated Diagnoses Date /Time XR CHEST 2 VIEWS Medical Imaging Routine Multiple pulmonary nodules 03/01/2020 2:55 PM EST Health Maintenance Due Date Last Done Comments *DEPRESSION SCREENING,ANNUAL FOR PTS 12 AND OVER 02/20/2019 DIABETES-EYE EXAM 11/10/2019 11/09/2018, , 10/10/2015, Additional history exists DIABETES-HGBA1C EVERY 6 MONTHS 02/29/2020 08/30/2019, 03/31/2019, 08/19/2018, Additional history exists Yearly B-12 08/29/2020 08/30/2019, 08/2018, 08/12/2017 DIABETES-FOOT EXAM 03/01/2021 03/01/2020, 1 03/26/2018, 02/18/2018, [...] of this encounter Implants Implanted Type Area Ground Support Equipment Assembler Device Identifier Shelf Expiration Date Model / Serial / Lot Marker [facility] - [id number] Implanted:Qty: 1 on 12/26/2010 at OR [facility] N/A: Heart [employer] 10/13/2013 [facility] / / [id number] Sut [employer] 6 M654g - [id number] Implanted:Qty: 5 on 12/26/2010 at OR [facility] Chest DO NOT USE 10/14/2015 M654G / / [id number] Band Ankur 225-241 - [id number] Implanted:Qty: 1 on 12/26/2010 at OR [facility] Chest [employer] 225-937 / / [id number] Lens Intraoc 17.5 - [id number] - [id number] Implanted:Qty: 1 on 02/07/2019 by Quincy Paiz MD at OR [facility] Right: Eye [employer] 08/14/2023 [id number] / [id number] / [id number] Lens Intraoc 17.0 - [id number] - [id number] Implanted:Qty: 1 on 03/01/2019 by Quincy Paiz MD at OR [facility] Left: Eye [employer] 09/12/2022 [id number] / [id number] / [id number] documented as of this encounter Visit Diagnoses Diagnosis Type 2 diabetes mellitus with diabetic nephropathy (HCC)- Primary Type II or unspecified type diabetes mellitus with renal manifestations, not stated as uncontrolled DM type 2 nursing care encounter (HCC) Type II or unspecified type diabetes mellitus without mention of complication, not stated as uncontrolled BPH with obstruction/lower urinary tract symptoms Hypertrophy of prostate with urinary obstruction and other lower urinary tract symptoms (LUTS) Type 2 diabetes mellitus with hemoglobin A1c goal of less than 8.0% ([facility]) Atherosclerosis of enterprise coronary artery of enterprise heart without angina pectoris Essential hypertension with goal blood pressure less than 140/90 Primary hypertension Unspecified essential hypertension Dyslipidemia, goal LDL below 70 Other and unspecified hyperlipidemia Ischemic cardiomyopathy Other specified forms of chronic ischemic heart disease Multiple pulmonary nodules Other nonspecific abnormal finding of lung field Old [place] (myocardial infarction) Old myocardial infarction Statin intolerance Other drug allergy documented in this encounter Advance Directives Documents on File Type Date Recorded 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
--- OUTSIDE RECORDS SUMMARY | 2022-11-16 13:16 | External Medical Summary ---
Author Name Unknown Address [address] [id number] Phone Organization K01:[facility] [address] [id number] Laboratory Report Ordering Provider Test Date Status MASON CLOUDKOBI 03/01/2020 14:51:00 Final Observation Date Value Abnormality Reference (Units ) Status HbA1C 03/01/2020 22:21 7.5 Above high normal 4.0-5 .6 (%) Final Performing Location [facility] [address] [facility] [address]
--- OUTSIDE RECORDS SUMMARY | 2022-11-16 13:16 | External Medical Summary ---
Author Name Unknown Address [address] [place] [address] [place] [address] Phone Organization K08:[address] [place] [address] Laboratory Report Ordering Provider Test Date Status MNII CLOUD 03/01/2020 14:51:00 Final Observation Date Value Abnormality Reference (Units) Status Fasting status - Reported 03/01/2020 14:57 NOT FASTING (hours) Final Triglyceride 03/01/2020 22:17 191 Above high normal 0-174 (mg/dL) Final Performing Location [address] [place] [address]
--- OUTSIDE RECORDS SUMMARY | 2022-11-16 13:16 | External Medical Summary | Summary of Care ---
Author Name Unknown Organization [place] [address] Care Team Providers Care Childrens Club Attendant Name Role Phone Smith Danielle MD Primary Care Provider [phone] Reason for Visit * Reason Onset Date Comments Medication Refill 02/12/2020 Encounter Details Date Type Department Care Team Description 02/12/2020 Refill Internal Medicine [address] [address] Smith Danielle MD [address] [place] [address] [place] [id number] Type 2 diabetes mellitus with hemoglobin A1c goal of less than 8.0% ([facility]) Allergies Active Allergy Reactions Severity Noted Date Comments Acetaminophen Renal complications 04/27/2009 Aspirin 08/13/2000 Stomach pain Cholestyramine 08/13/2000 Kidney pain Atorvastatin Calcium 04/28/2007 cramping Niacin Muscle pain 07/22/2007 Simvastatin Hives 08/13/2000 Ezetimibe 04/28/2007 Cramping ankles, turned feet inward documented as of this encounter (statuses as of 02/13/2020) Medications Medication Sig Dispensed Refills Start Date [...] day 0 Active Terazosin HCl 2 MG CapsuleIndications :Atherosclerosis of [place] coronary artery of [place] heart without angina pectoris,BPH with obstruction/lower urinary tract symptoms,Essential hypertension with goal blood pressure less than 140/90 Take 1 Cap by mouth at bedtime. 90 Cap 3 03/21/2019 Active tretinoin (RETIN-A) 0.05 % creamIndications:A ctinic keratosis APPLY NIGHTLY TO FACE DIRECTED,CAN MIX WITH PONDS 45 g 5 03/28/2019 Active finasteride (PROSCAR) 5 MG TabletIndications: BPH with obstruction/lower urinary tract symptoms Take 1 Tab by mouth daily. 90 Tab 1 08/30/2019 Active MetFORMIN (GLUCOPHAGE) 1000 MG TabletIndications: Type 2 diabetes mellitus with diabetic nephropathy (HCC),Type 2 diabetes mellitus with hemoglobin A1c goal of less than 8.0% (HCC) Take 1 Tab by mouth 2 times a day with morning and evening meals. 180 Tab 1 08/30/2019 Active Valsartan 320 MG TabletIndications: Atherosclerosis of [place] coronary artery of [place] heart without angina pectoris,Primary hypertension Take 1 Tab by mouth daily. 90 Tab 1 09/01/2019 Active ONETOUCH ULTRA STRPIndications:Ty pe 2 diabetes [...] pressure less than 140/90,Old [place] (myocardial infarction) TAKE 1 TABLET BY MOUTH TWICE A DAY 180 Tab 1 01/20/2020 Active glipiZIDE ER 10 MG Oral Tablet Extended Release 24 Hour (GLUCOTROL XL)Indications:Typ e 2 diabetes mellitus with hemoglobin A1c goal of less than 8.0% (HCC) Take 1 Tab by mouth 2 times a day. 180 Tab 1 02/13/2020 Active glipiZIDE XL (GLUCOTROL XL) 10 MG WQ11Staksqxscqw:Ty pe 2 diabetes mellitus with hemoglobin A1c goal of less than 8.0% (HCC) Take 1 Tab by mouth 2 times a day. 180 Tab 1 08/15/2019 0 Discontinue d(Refill) documented as of this encounter (statuses as of 02/13/2020) Active Problems Problem Noted Date Type 2 [...] to patient at prior appointment. Atherosclerosis of [place] co ronary artery of [place] heart without angina pectoris 11/30/2001 GENERAL OSTEOARTHROSIS Multiple pulmonary nodules Complex renal cyst Overview: 3.8 cm; L Old [place] (myocardial infarction) documented as of this encounter (statuses as of 02/13/2020) Resolved Problems Problem Noted Date Resolved Date [employer] Other*[id number] 201004/22/2016 Overview: Study Titile: Genomics Markers for Patients with Cardiovascular Disease Project # [id number] PI: Amalia Kingsley MD Please call [phone] with study related questions HTN, goal below [...] as of this encounter (statuses as of 02/13/2020) Immunizations Name Administration Dates Next Due Pneumococcal [...] Telephone Encounter - Smith Danielle MD - 02/13/2020 4:34 PM EST Signed Prescriptions: Disp Refills glipiZIDE ER 10 MG Oral Tablet Extended Re*180 Tab1 Sig: Take 1 Tab by mouth 2 times a day. Authorizing Provider: SMITH DANIELLE * Telephone Encounter - Tracie Suárez LPN - 02/13/2020 4:19 PM EST Pending Prescriptions: Disp Refills glipiZIDE ER 10 MG Oral Tablet Extended R*180 Tab1 Sig: Take 1 Tab by mouth 2 times a day. Last Office/Telemedicine Visit: 08/30/2019 Next Office Visit: 03/01/2020 Scheduled Provider(s): Smith Danielle MD Last date the medication was ordered: 08/15/19 Patient Active Problem List Diagnosis Code GENERAL OSTEOARTHROSIS M15.9 Atherosclerosis of [place] coronary artery of [place] heart without angina pectoris I25.10 ADVANCE DIRECTIVE INFORMATION Type 2 diabetes mellitus with hemoglobin A1c goal of less than 8.0% ([facility]) E11.9 DYSLIPIDEMIA, GOAL LDL BELOW [...] I12.9, N18.2 Old [place] (myocardial infarction) I25.2 Labs: CREATININE(mg/dL) Lucía Dt/Tm Resulted Value Status 08/30/19 8:34A 08/30/19 1.0 FINAL POTASSIUM(mmol/L) Lucía Dt/Tm Resulted Value Status 08/30/19 8:34A 08/30/19 4.4 FINAL TSH(uIU/mL) Lucía Dt/Tm Resulted Value Status 04/28/18 9:11A 04/28/18 3.81 FINAL LDL (CALCULATED)(mg/dL) Lucía Dt/Tm Resulted Value Status 08/19/18 8:36A 08/19/18 102 EDITED LDL DIRECT(REFLEX)(mg/dL) Lucía Dt/Tm Resulted Value Status Value: NOT APPLICABLE ALT(U/L) Lucía Dt/Tm Resulted Value Status 03/31/19 8:26A 03/31/19 21 FINAL Hemoglobin AIC Results: HEMOGLOBIN, A1C(%) Lucía Dt/Tm Resulted Value Status 08/30/19 8:34A 08/30/19 7.3* FINAL 03/31/19 8:26A 03/31/19 7.3* FINAL 08/19/18 8:36A 08/19/18 6.9* FINAL * Telephone Encounter - Tracie Suárez LPN - 02/13/2020 4:19 PM EST Message from [employer]: Refills have been requested for the following medications: glipiZIDE XL (GLUCOTROL XL) 10 MG TB24 [Smith Danielle MD] Preferred pharmacy: [facility] [id number] documented in this encounter Plan of Treatment Upcoming Encounters Date Type Specialty Care Team Description 02/14/2020 Imaging Radiology 03/01/2020 Office Visit Internal Medicine Smith Danielle MD [address] [place] [address] [place] [address] [phone] 04/24/2020 Office Visit Cardiology Alcon Lott PA-C [address] [facility] [place] [address] [phone] 06/29/2020 Office Visit Dermatology Kim Kong MD [address] [place] [address] [place] [address] [phone] Health Maintenance Due Date Last Done Comments [...] of this encounter Implants Implanted Type Area Certified Nutritionist Device Identifier Shelf Expiration Date Model / Serial / Lot Marker Coronary [facility] - [id number] Implanted:Qty: 1 on 12/26/2010 at [place] [facility] N/A: Heart [employer] 10/13/2013 AM-SD / / [id number] Sut Steel 6 M654g - [id number] Implanted:Qty: 5 on 12/26/2010 at OR [facility] Chest DO NOT USE 10/14/2015 M654G / / [id number] [place] 225-241 - [id number] Implanted:Qty: 1 on 12/26/2010 at OR [facility] Chest [employer] 225-241 / / [id number] Lens Intraoc 17.5 - [id number] - [id number] Implanted:Qty: 1 on 02/07/2019 by Quincy Paiz MD at OR [facility] Right: Eye [employer] 08/14/2023 [id number] / [id number] / [id number] Lens Intraoc 17.0 - [id number] - [id number] Implanted:Qty: 1 on 03/01/2019 by Quincy Pazi MD at OR [facility] Left: Eye [employer]OM[employer] 09/12/2022 [id number] / [id number] / [id number] documented as of this encounter Visit Diagnoses Diagnosis Type 2 diabetes mellitus with hemoglobin A1c goal of less than 8.0% (HCC) documented in this encounter Advance Directives Documents on File Type Date Recorded 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
--- OUTSIDE RECORDS SUMMARY | 2022-11-16 13:16 | External Medical Summary | Summary of Care ---
Author Name Unknown Organization [place] [address] Care Team Providers Care Water Resources Program Director Name Role Phone Smith Orozco MD Primary Care Provider [phone] Reason for Visit * Reason Onset Date Comments Medication Refill 01/13/2020 Encounter Details Date Type Department Care Team Description 01/13/2020 Refill Internal Medicine [address] [address] Smith Orozco MD [address] [place] [address] [facility] [id number] PEPTIC ULCER NOS Allergies Active Allergy Reactions Severity Noted Date Comments Acetaminophen Renal complications 04/27/2009 Aspirin 08/13/2000 Stomach pain Cholestyramine 08/13/2000 Kidney pain Atorvastatin Calcium 04/28/2007 cramping Niacin Muscle pain 07/22/2007 Simvastatin Hives 08/13/2000 Ezetimibe 04/28/2007 Cramping ankles, turned feet inward documented as of this encounter (statuses as of 01/16/2020) Medications Medication Sig Dispensed Refills Start Date [...] Terazosin HCl 2 MG CapsuleIndications :Atherosclerosis of [place] coronary artery of [place] heart without angina pectoris,BPH with obstruction/lower urinary tract symptoms,Essential hypertension with goal blood pressure less than 140/90 Take 1 Cap by mouth at bedtime. 90 Cap 3 03/21/2019 Active tretinoin (RETIN-A) 0.05 % creamIndications:A ctinic keratosis APPLY NIGHTLY TO FACE DIRECTED,CAN MIX WITH PONDS 45 g 5 03/28/2019 Active amLODIPine (NORVASC) 5 MG TabletIndications: Essential hypertension with goal blood pressure less than 140/90,Old [place] (myocardial infarction) Take 1 Tab by mouth 2 times a day. 180 Tab 1 07/29/2019 Active glipiZIDE XL (GLUCOTROL XL) 10 MG TV58Brzdaxzqypi:Ty pe 2 diabetes mellitus with hemoglobin A1c goal of less than 8.0% (HCC) Take 1 Tab by mouth 2 times a day. 180 Tab 1 08/15/2019 Active finasteride (PROSCAR) 5 MG TabletIndications: BPH [...] Active Valsartan 320 MG TabletIndications: Atherosclerosis of [place] coronary artery of [place] heart without angina pectoris,Primary hypertension Take 1 [...] mouth daily. 90 Cap 1 01/16/2020 Active omeprazole (PRILOSEC) 20 MG CPDRIndications:Pe ptic ulcer Take 1 Cap by mouth daily. 90 Cap 1 07/18/2019 0 Discontinue d(Refill) documented as of this encounter (statuses as of 01/16/2020) Active Problems Problem Noted Date Type 2 [...] to patient at prior appointment. Atherosclerosis of [place] co ronary artery of [place] heart without angina pectoris 11/30/2001 GENERAL OSTEOARTHROSIS Multiple pulmonary nodules Complex renal cyst Overview: 3.8 cm; L Old [place] (myocardial infarction) documented as of this encounter (statuses as of 01/16/2020) Resolved Problems Problem Noted Date Resolved Date Gen[employer] Cardio Research Other*[id number] 201004/22/2016 Overview: Study Titile: Genomics Markers for Patients with Cardiovascular Disease Project # [id number] PI: Amalia Kingsley MD Please call [phone] with study related questions HTN, goal below [...] 01/24/2002 10/12/2015 Solar lentigo 10/27/2001 04/30/2016 ACUTE VA; INFERIOR WALL;SUBSEQUENT EPISODE CARE 06/21/2013 HYPERTENSION NOS [...] as of this encounter (statuses as of 01/16/2020) Immunizations Name Administration Dates Next Due Pneumococcal [...] encounter Miscellaneous Notes * Telephone Encounter - Chencho Nath MD - 01/16/2020 1:43 PM EST Signed Prescriptions: Disp Refills Omeprazole 20 MG Oral Capsule Delayed Rele*90 Cap 1 Sig: Take 1 Cap by mouth daily. Authorizing Provider: CHENCHO NATH * Telephone Encounter - Kasey Rosales LPN - 01/16/2020 8:40 AM EST Pending Prescriptions: Disp Refills Omeprazole 20 MG Oral Capsule Delayed Rel*90 Cap 1 Sig: Take 1 Cap by mouth daily. Last Office/Telemedicine Visit: 08/30/2019 Next Office Visit: 03/01/2020 Scheduled Provider(s): Smith Orozco MD Last date the medication was ordered: 07/18/19 Patient Active Problem List Diagnosis Code GENERAL OSTEOARTHROSIS M15.9 Atherosclerosis of [place] coronary artery of [place] heart without angina pectoris I25.10 ADVANCE DIRECTIVE [...] and hypertension (HCC) E11.22, I12.9, N18.2 Old [place] (myocardial infarction) I25.2 Labs: CREATININE(mg/dL) Lucía Dt/Tm [...] 08/19/18 6.9* FINAL * Telephone Encounter - Kasey Rosales LPN - 01/16/2020 8:40 AM EST Message from [employer]: Refills have been requested for the following medications: omeprazole (PRILOSEC) 20 MG CPDR [Smith Orozco MD] Preferred pharmacy: [facility] #[id number] documented in this encounter Plan of Treatment Upcoming Encounters Date Type Specialty Care Team Description 02/14/2020 Imaging Radiology 03/01/2020 Office Visit Internal Medicine Smith Orozco MD [address] [place] [address] [place] [id number] 04/24/2020 Office Visit Cardiology [facility]con Lott [facility]C [facility] [address] [phone] 06/29/2020 Office Visit Dermatology Kim Kong MD [address] [place] [address] [phone] Health Maintenance Due Date Last Done Comments [...] of this encounter Implants Implanted Type Area Customer Quality Specialist Device Identifier Shelf Expiration Date Model / Serial / Lot Marker Coronary [facility] - [id number] Implanted:Qty: 1 on 12/26/2010 [place] [facility] [place]A: Heart [employer] 10/13/2013 [facility] / / [id number] Sut Steel 6 M654g - [id number] Implanted:Qty: 5 on 12/26/2010 at [place] [facility] Chest DO NOT USE 10/14/2015 M654G / / [id number] [facility] 225-241 - [id number] Implanted:Qty: 1 on 12/26/2010 at [place] [facility] Chest [employer] 225-241 / / [id number] Lens Intraoc 17.5 - [id number] - [id number] Implanted:Qty: 1 on 02/07/2019 by Quincy Paiz MD at OR [facility] Right: Eye [employer] 08/14/2023 [id number] / [id number] / [id number] Lens Intraoc 17.0 - [id number] - [id number] Implanted:Qty: 1 on 03/01/2019 by Quincy Paiz MD at OR [facility] Left: Eye [employer]OM[employer] 09/12/2022 [id number] / [id number] / [id number] documented as of this encounter Visit Diagnoses Diagnosis PEPTIC ULCER NOS Peptic ulcer, unspecified site, unspecified as acute or chronic, without mention of hemorrhage, perforation, or obstruction documented in this encounter Advance Directives Documents on File Type Date Recorded 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
--- OUTSIDE RECORDS SUMMARY | 2022-11-16 13:16 | External Medical Summary | Summary of Care ---
Author Name Unknown Organization [place] [address] Care Team Providers Care Computer Equipment Installer Name Role Phone Smith Orozco MD Primary Care Provider [phone] Reason for Visit * Reason Comments eRx-Medication Refill Encounter Details Date Type Department Care Team Description 01/20/2020 Refill Cardiology [address] [id number] Karly Adler PA-Adelfo [address] [place] [address] [phone] Essential hypertension with goal blood pressure less than 140/90; Old [place] (myocardial infarction) Allergies Active Allergy Reactions Severity Noted Date Comments Acetaminophen Renal complications 04/27/2009 Aspirin 08/13/2000 Stomach pain Cholestyramine 08/13/2000 Kidney pain Atorvastatin Calcium 04/28/2007 cramping Niacin Muscle pain 07/22/2007 Simvastatin Hives 08/13/2000 Ezetimibe 04/28/2007 Cramping ankles, turned feet inward documented as of this encounter (statuses as of 01/20/2020) Medications Medication Sig Dispensed Refills Start Date [...] day 0 Active Terazosin HCl 2 MG CapsuleIndication s:Atherosclerosis of [place] coronary artery of [place] heart without angina pectoris,BPH with obstruction/lower urinary tract symptoms,Essentia l hypertension with goal blood pressure less than 140/90 Take 1 Cap by mouth at bedtime. 90 Cap 3 03/21/2019 Active tretinoin (RETIN-A) 0.05 % creamIndications: Actinic keratosis APPLY NIGHTLY TO FACE DIRECTED,CAN MIX WITH PONDS 45 g 5 03/28/2019 Active glipiZIDE XL (GLUCOTROL XL) 10 MG JI49Rcqqmyrmfop:T ype 2 diabetes mellitus with hemoglobin A1c goal of less than 8.0% (HCC) Take 1 Tab by mouth 2 times a day. 180 Tab 1 08/15/2019 Active finasteride (PROSCAR) 5 MG TabletIndications :BPH with obstruction/lower urinary tract symptoms Take 1 Tab by mouth daily. 90 Tab 1 08/30/2019 Active MetFORMIN (GLUCOPHAGE) 1000 MG TabletIndications :Type 2 diabetes mellitus with diabetic nephropathy (HCC),Type 2 diabetes mellitus with hemoglobin A1c goal of less than 8.0% (HCC) Take 1 Tab by mouth 2 times a day with morning and evening meals. 180 Tab 1 08/30/2019 Active Valsartan 320 MG TabletIndications :Atherosclerosis of [place] coronary artery of [place] heart without angina pectoris,Primary hypertension Take 1 Tab by mouth daily. 90 Tab 1 09/01/2019 Active ONETOUCH ULTRA STRPIndications:T ype 2 diabetes [...] Active amLODIPine Besylate 5 MG Oral Tablet (NORVASC)Indicati ons:Essential hypertension with goal blood pressure less than 140/90,Old [place] (myocardial infarction) TAKE 1 TABLET BY MOUTH TWICE A DAY 180 Tab 1 01/20/2020 Active amLODIPine (NORVASC) 5 MG TabletIndications :Essential hypertension with goal blood pressure less than 140/90,Old [place] (myocardial infarction) Take 1 Tab by mouth 2 times a day. 180 Tab 1 07/29/2019 0 Discontinued documented as of this encounter (statuses as of 01/20/2020) Active Problems Problem Noted Date Type 2 [...] to patient at prior appointment. Atherosclerosis of [place] co ronary artery of [place] heart without angina pectoris 11/30/2001 GENERAL OSTEOARTHROSIS Multiple pulmonary nodules Complex renal cyst Overview: 3.8 cm; L Old [place] (myocardial infarction) documented as of this encounter (statuses as of 01/20/2020) Resolved Problems Problem Noted Date Resolved Date Genomics Cardio Research Other*[id number] 201004/22/2016 Overview: Study Titile: Genomics Markers for Patients with Cardiovascular Disease Project # [id number] PI: Amalia Kingsley MD Please call [phone] with study related questions HTN, goal below [...] 01/24/2002 10/12/2015 Solar lentigo 10/27/2001 04/30/2016 ACUTE DC; INFERIOR WALL;SUBSEQUENT EPISODE CARE 06/21/2013 HYPERTENSION NOS [...] as of this encounter (statuses as of 01/20/2020) Immunizations Name Administration Dates Next Due Pneumococcal [...] with Preserve, 3yr & Above, Split 12/04/2014,11/23/2013,12/07/2012,11/14,11/20/2010,12/13/2009,01/11/20 09,01/04/2008,12/15/2006,12/23/2005,,12/25/2003,12/29/2002,01/19,01/05/2001 01/19/2003 TD - Tetanus/Diptheria (ADULT) 03/16/2003 TDAP [...] Telephone Encounter - Karly Adler PA-C - 01/20/2020 11:43 AM EST Signed Prescriptions: Disp Refills amLODIPine Besylate 5 MG Oral Tablet (NORV*180 Tab1 Sig: TAKE 1 TABLET BY MOUTH TWICE A DAY Authorizing Provider: KARLY ADLER * Telephone Encounter - Juan M Addison LPN - 01/20/2020 9:41 AM EST Pending Prescriptions: Disp Refills amLODIPine Besylate 5 MG Oral Tablet (NOR*180 Tab1 Sig: TAKE 1 TABLET BY MOUTH TWICE A DAY * Telephone Encounter - Juan M Addison LPN - 01/20/2020 9:40 AM EST Pending Prescriptions: Disp Refills amLODIPine Besylate 5 MG Oral Tablet (NOR*180 Tab1 Sig: TAKE 1 TABLET BY MOUTH TWICE A DAY Last Office/Telemedicine Visit: 10/13/2019 Next Office Visit: 04/24/2020 Scheduled Provider(s): Karly Adler PA-C If no future appointments scheduled, and last appointment is greater than a year ago, please schedule patient for a follow-up appointment Last date the medication was ordered: 07/29/19 Pharmacy: [id number] [id number] [facility] Is this request for a controlled substance?No Urine Drug Screen:No results found for this or any previous visit. Patient Phone Numbers Labs: Lab Results Component Value Date/Time CREAT 1.0 08/30/2019 08:34 AM POTASSIUM 4.4 08/30/2019 08:34 AM TSH 3.81 04/28/2018 09:11 AM LDLCALC 102 08/19/2018 08:36 AM LDLDIRECT 101 02/04/2011 04:00 PM ALT 21 03/31/2019 08:26 AM HGBA1C 7.3 (H) 08/30/2019 08:34 AM documented in this encounter Plan of Treatment Upcoming Encounters Date Type Specialty Care Team Description 02/14/2020 Imaging Radiology 03/01/2020 Office Visit Internal Medicine Smith Orozco MD [address] [place] [address] [place] [address] [phone] 04/24/2020 Office Visit Cardiology Karly Adler PA-C [address] [facility] [place] [address] [phone] 06/29/2020 Office Visit Dermatology Kim Kong MD [address] [place] [address] [place] [address] [phone] Health Maintenance Due Date Last Done Comments [...] of this encounter Implants Implanted Type Area Nursing Student Device Identifier Shelf Expiration Date Model / Serial / Lot Marker Coronary [facility] - [id number] Implanted:Qty: 1 on 12/26/2010 [place] [facility] N/A: Heart [employer] 10/13/2013 [facility] / / [id number] Sut Steel 6 M654g - [id number] Implanted:Qty: 5 on 12/26/2010 [place] [facility] Chest DO NOT USE 10/14/2015 M654G / / [id number] [facility] 225-241 - [id number] Implanted:Qty: 1 on 12/26/2010 at [place] [facility] Chest [employer] 225-241 / / [id number] Lens Intraoc 17.5 - [id number] - [id number] Implanted:Qty: 1 on 02/07/2019 by Quincy Paiz MD at OR [facility] Right: Eye [employer] 08/14/2023 [id number] / [id number] / [id number] Lens [employer]oc 17.0 - [id number] - [id number] Implanted:Qty: 1 on 03/01/2019 by Quincy Paiz MD at OR [facility] Left: Eye [employer] 09/12/2022 [id number] / [id number] / [id number] documented as of this encounter Visit Diagnoses Diagnosis Essential hypertension with goal blood pressure less than 140/90 Old [place] (myocardial infarction) Old myocardial infarction documented in this encounter Advance Directives Documents on File Type Date Recorded Patient Hat Model Expl 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
--- OUTSIDE RECORDS SUMMARY | 2022-11-16 13:16 | External Medical Summary | Summary of Care ---
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 Crew Worker Name Role Phone Smith Orozco MD Primary Care Provider Encounter Details Date Type Department Care Team Description 03/01/2020 Documentation Laboratory, [address] [place] [address] [place] [address] [phone] Type 2 diabetes mellitus with hemoglobin A1c goal of less than 8.0% ([facility])*; Dyslipidemia, goal LDL below 70; Encounter for long-term (current) use of medications Allergies Active Allergy Reactions Severity Noted Date Comments Acetaminophen Renal complications 04/27/2009 Aspirin 08/13/2000 Stomach pain Cholestyramine 08/13/2000 Kidney pain Atorvastatin Calcium 04/28/2007 cramping Niacin Muscle pain 07/22/2007 Simvastatin Hives 08/13/2000 Ezetimibe 04/28/2007 Cramping ankles, turned feet inward documented as of this encounter (statuses as of 03/05/2020) Medications Medication Sig Dispensed Refills Start Date [...] pressure less than 140/90,Old [place] (myocardial infarction) TAKE 1 TABLET BY MOUTH [...] HCl 2 MG Oral CapsuleIndications:A therosclerosis of nez perce coronary artery of nez perce heart without angina pectoris,BPH with obstruction/lower urinary tract symptoms,Essential hypertension with goal blood pressure less than 140/90 Take 1 Cap by mouth at bedtime. 90 Cap 1 03/01/2020 Active Valsartan 320 MG Oral TabletIndications:At herosclerosis of nez perce coronary artery of nez perce heart without angina pectoris,Primary hypertension Take 1 Tab by mouth daily. 90 Tab 1 03/01/2020 Active documented as of this encounter (statuses as of 03/05/2020) Active Problems Problem Noted Date Type 2 [...] to patient at prior appointment. Atherosclerosis of [place]z perce co ronary artery of nez perce heart without angina pectoris 11/30/2001 GENERAL OSTEOARTHROSIS Multiple pulmonary nodules Complex renal cyst Overview: 3.8 cm; L Old [place] (myocardial infarction) documented as of this encounter (statuses as of 03/05/2020) Resolved Problems Problem Noted Date Resolved Date Genomics Cardio Research Other*[id number] 201004/22/2016 Overview: Study Titile: Genomics Markers for Patients with Cardiovascular Disease Project # [id number] PI: Amalia Kingsley MD Please call [phone] with study related questions HTN, goal below [...] as of this encounter (statuses as of 03/05/2020) Immunizations Name Administration Dates Next Due Pneumococcal [...] on file documented as of this encounter Nursing Notes * Data, Entry - 03/02/2020 5:32 AM EST Automated conversion to a Documentation Encounter documented in this encounter Plan of Treatment Upcoming Encounters Date Type Specialty Care Team Description 04/24/2020 Office Visit Cardiology Alcon Lott PA-C [address] [facility] [place] [address] [phone] 06/29/2020 Office Visit Dermatology [facility] Kong [facility] [address] [facility] [address] [phone] 08/30/2020 Office Visit Internal Medicine Smith Orozco MD [address] [place] [address] [place] [address] [phone] Health Maintenance Due Date Last Done Comments [...] of this encounter Implants Implanted Type Area Access Clerk Device Identifier Shelf Expiration Date Model / Serial / Lot Marker Coronary [facility]-S[facility] - [id number] Implanted:Qty: 1 on 12/26/2010 at OR [facility] N/A: Heart [employer] 10/13/2013 AM-SD / / [id number] Sut Steel 6 M654g - [id number] Implanted:Qty: 5 on 12/26/2010 at OR [facility] Chest DO NOT USE 10/14/2015 M654G / / [id number] Band Ankur 225-241 - [id number] Implanted:Qty: 1 on 12/26/2010 at OR [facility] Chest [employer] 225-241 / / [id number] Lens Intraoc 17.5 - [id number] - [id number] Implanted:Qty: 1 on 02/07/2019 by Quincy Paiz MD at OR [facility] Right: Eye [employer]USCH [employer] LOMB 08/14/2023 [id number] / [id number] / [id number] Lens Intraoc 17.0 - [id number] - [id number] Implanted:Qty: 1 on 03/01/2019 by Quincy aPiz MD at OR [facility] Left: Eye BAUSCH [employer] LOMB 09/12/2022 [id number] / [id number] / [id number] documented as of this encounter Procedures Procedure Name Priority Date/Time Associated Diagnosis Comments LIPID PANEL WITH DIRECT LDL IF TRIGLYCERIDE IS ELEVATED Routine 03/01/2020 2:51 PM EST Dyslipidemia, goal LDL below 70 Type 2 diabetes mellitus with hemoglobin A1c goal of less than 8.0% (HCC) HEMOGLOBIN A1C Routine 03/01/2020 2:51 PM EST Type 2 diabetes mellitus with hemoglobin A1c goal of less than 8.0% (HCC) BASIC METAB PANEL, BMP Routine 03/01/2020 2:51 PM EST Encounter for long-term (current) use of medications ALBUMIN / CREATININE RATIO, URINE Routine 03/01/2020 2:51 PM EST Type 2 diabetes mellitus with hemoglobin A1c goal of less than 8.0% (HCC) documented in this encounter Results * BASIC METAB PANEL, BMP (03/01/2020 2:51 PM EST) BUN 33(H) 6 - 20 mg/dL [facility] CREATININE 1.0 0.6 - 1.2 mg/dL [facility] E GLOM FILT RATE >60.0Comment:If patient is , multiply estimated GFR by 1.159. >60 [facility] SODIUM 140 135 - 146 mmol/L [facility] POTASSIUM 4.4 3.5 - 5.1 mmol/L [facility] CHLORIDE 103 98 - 107 mmol/L [facility] CO2 23 22 - 32 mmol/L [facility] ANION GAP 14 7 - 15 mmol/L [facility] GLUCOSE 109 70 - 120 mg/dL [facility] CALCIUM 10.2 8.4 - 10.2 mg/dL [facility] Specimen [facility] [address] [place] [address] * LIPID PANEL WITH DIRECT LDL IF TRIGLYCERIDE IS ELEVATED (03/01/2020 2:51 PM EST) HOURS FASTING NOT FASTING hours [facility] TRIGLYCERIDES 191(H) Comment: Triglyceride Reference Ranges (mg/dL) <150 Acceptable 150-174 Borderline high 175-499 High >=500 Very high 0 - 174 mg/dL [facility] CHOLESTEROL 225(H) Comment: Total Cholesterol Reference Ranges (mg/dL) <200 Desirable 200-239 Borderline high >=240 High <200 mg/dL [facility] HDL 59 Comment: HDL Cholesterol Reference Ranges (mg/dL) >=60 High (Desirable) <50 Low (Undesirable) For Females <40 Low (Undesirable) For Males >39 mg/dL [facility] NON-HDL CHOLESTEROL 166(H) Comment: Non-HDL Cholesterol Reference Range (mg/dL) <100 Target level for high risk ASCVD patient <130 Optimal for general population 130-159 Near optimal for general population 160-189 Borderline High 190-219 High >=220 Very High 0 - 159 mg/dL [facility] LDL (CALCULATED) 128 Comment: LDL Cholesterol Reference Ranges (mg/dL) <70 Target level for high risk ASCVD patient <100 Optimal for general population 100-129 Near optimal for general population 130-159 Borderline high 160-189 High >=190 Very high 0 - 129 mg/dL [facility] LDL DIRECT(REFLEX) NOT APPLICABLE 0 - 129 mg/dL [facility] Specimen Performing Organization Address [facility] Co de Phone Number [facility] [address] [place] [address] [address] * HEMOGLOBIN A1C (03/01/2020 2:51 PM EST) HEMOGLOBIN, A1C 7.5(H) Comment: The use of HbA1c to monitor glycemic status is based on normal hemoglobin and HbA composition. This test should not be used in patients with abnormal hemoglobin that affects the half life of the red blood cell or the in vivo glycation rates. 4.0 - 5.6 % [facility] EST AVG GLUCOSE 169(H) <126 [facility] Specimen Performing Organization Address [facility] Co de Phone Number [facility] [address] [place] [address] * ALBUMIN / CREATININE RATIO, URINE (03/01/2020 2:51 PM EST) ALBUMIN, RD URINE 13.28 mg/dL [facility] CREATININE, RD URINE 36 mg/dL [facility] MICROALBUMIN RATIO 369(H) Comment: Normal: <30 mg/g creatinine High: 30-300 mg/g creatinine Very High: >300 mg/g creatinine Nephrotic: >2200 mg/g creatinine <30 mg/g creat [facility] Specimen Performing Organization Address [facility] Co de Phone Number [facility] [address] [place] [address] documented in this encounter Visit Diagnoses Diagnosis Type 2 diabetes mellitus with hemoglobin A1c goal of less than 8.0% (HCC)- Primary Dyslipidemia, goal LDL below 70 Other and unspecified hyperlipidemia Encounter for long-term (current) use of medications Encounter for long-term (current) use of other medications documented in this encounter Advance Directives Documents on File Type Date Recorded 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
--- OUTSIDE RECORDS SUMMARY | 2022-11-16 13:16 | External Medical Summary | Summary of Care ---
Author Name Unknown Organization [place] [address] Care Team Providers Care Rn Pool Name Role Phone Smith Orozco MD Primary Care Provider + [phone] Reason for Visit * Reason Comments Re-Check Encounter Details Date Type Department Care Team Description 03/01/2020 Office Visit Internal Medicine [address] [address] Smtih Orozco MD [address] [place] [address] [place] [address] [phone] Type 2 diabetes mellitus with diabetic nephropathy (HCC)*; DM type 2 nursing care encounter (HCC); BPH with obstruction/lower urinary tract symptoms; Type 2 diabetes mellitus with hemoglobin A1c goal of less than 8.0% (HCC); Atherosclerosis of atka coronary artery of atka heart without angina pectoris; Essential hypertension with goal blood pressure less than 140/90; Primary hypertension; Dyslipidemia, goal LDL below 70; Ischemic cardiomyopathy; Multiple pulmonary nodules; Old WI (myocardial infarction); Statin intolerance Allergies Active Allergy [...] pressure less than 140/90,Old WI (myocardial infarction) TAKE 1 TABLET BY MOUTH [...] HCl 2 MG Oral CapsuleIndications :Atherosclerosis of [place] coronary artery of [place] heart without angina pectoris,BPH with obstruction/lower urinary tract symptoms,Essential hypertension with goal blood pressure less than 140/90 Take 1 Cap by mouth at bedtime. 90 Cap 1 03/01/2020 Active Valsartan 320 MG Oral TabletIndications: Atherosclerosis of [place] coronary artery of [place] heart without angina pectoris,Primary hypertension Take 1 Tab by mouth daily. 90 Tab 1 03/01/2020 Active Terazosin HCl 2 MG CapsuleIndications :Atherosclerosis of [place] coronary artery of [place]ka heart without angina pectoris,BPH with obstruction/lower urinary [...] Valsartan 320 MG Oral TabletIndications: Atherosclerosis of [place] coronary artery of atka heart without angina pectoris,Primary hypertension TAKE 1 [...] Noted Date Resolved Date Genomics Cardio Research Other*[id number] 201004/22/2016 Overview: Study Titile: Genomics Markers for Patients with Cardiovascular Disease Project # [id number] PI: Baljinder Hung MD Please call [phone] with study related questions HTN, goal below [...] Patient Instructions * Patient Instructions* Komal Shearer, CHARGER - 03/01/2020 2:31 PM EST Diabetes: Keeping [...] calluses yourself. Talk to your doctor or counter professional (a doctor who specializes in foot care) [...] the area doesnt appear to be healing. [phone] [employer], [address] [place] [address], [place] [address]. All rights reserved. This information is not [...] out. Past Medical History: Diagnosis Date Acute WI, inferior wall, subsequent episode of care ([facility]) 1994 BPH with obstruction/lower urinary tract symptoms 11/01/2009 CKD (chronic kidney disease) stage 2, GFR 60-89 ml/min Coronary atherosclerosis of atka coronary artery 11/30/2001 DM type 2, goal A1c below 7 Elevated PSA 09/30/2017 PSA 7.15 Examination of eyes and vision 09/20/13 no diabetic or hypertensive retinopathy Generalized osteoarthritis HTN, goal below 140/90 Mixed dyslipidemia Multiple pulmonary nodules 03/20/13 Old WI (myocardial infarction) 1994 Peptic ulcer Renal mass, left 2014 3.8 cm Type 2 diabetes mellitus with hemoglobin A1c goal of less than 8.0% ([facility]) 01/11/2009 Per Diabetes Taxonomy. ICD-10 update of inactive term Past Surgical History: Procedure Laterality Date CABG, ARTERIAL, SINGLE 12/26/2010 CORONARY ARTERY BYPASS GRAFT USING ARTERY 1 GRAFT performed by BERTHA SENIOR at OR [facility] CABG, ARTERY-VEIN, THREE 12/26/2010 CORONARY ARTERY BYPASS GRAFT ARTERIAL AND VENOUS 3 GRAFTS performed by BERTHA SENIOR at OR [facility] CORONARY ANGIOGRAPHY W/LEFT HEART CATH 12/03/2010 CORONARY ANGIOGRAPHY W/LEFT HEART CATH performed by BALJINDER HUNG at [facility]ARD[facility] CT CHEST W CONTRAST 07/11/13 non calcified [...] VEIN performed by BERTHA SENIOR at OR [facility] INFORMATION 1994 cardiac cath REMOVE CATARACT, INSERT LENS PROSTH Right 02/07/2019 right EXTRACAPSULAR CATARACT REMOVAL WITH INTRAOCULAR LENS performed by Quincy Paiz MD at OR [facility] REMOVE CATARACT, INSERT LENS PROSTH Left 03/01/2019 left EXTRACAPSULAR CATARACT REMOVAL WITH INTRAOCULAR LENS performed by Quincy Paiz MD at OR [facility] REPAIR INITIAL INGUINAL HERNIA REDUCIBLE AGE [...] file Gets together: Not on file Attends spiritism service: Not on file Active member of [...] meals. DM type 2 nursing care encounter ([facility]) - DIABETES FOOT EXAM BPH with obstruction/lower urinary tract symptoms - Finasteride 5 MG Oral Tablet (PROSCAR); Take 1 Tab by mouth daily. - Terazosin HCl 2 MG Oral Capsule; Take 1 Cap by mouth at bedtime. Type 2 diabetes mellitus with hemoglobin A1c goal of less than 8.0% ([facility]) - metFORMIN HCl 1000 MG Oral Tablet (GLUCOPHAGE); Take 1 Tab by mouth 2 times a day with morning and evening meals. Atherosclerosis of atka coronary artery of atka heart without angina pectoris - Terazosin HCl [...] nodules - XR CHEST 2 VIEWS Old WI (myocardial infarction) Statin intolerance * Komal Shearer [...] Office Visit Cardiology Alcon Lott PA-C [address] [facility] [address] 06/29/2020 Office Visit Dermatology Kim Kong MD [address] [place] [address] [place] [address] [phone] 08/30/2020 Office Visit Internal Medicine Smith Orozco MD [address] [place] [address] [place] [address] Pending Results Name Type [...] of this encounter Implants Implanted Type Area Medicine Assistant Device Identifier Shelf Expiration Date Model / Serial / Lot Marker Coronary [facility] - [id number] Implanted:Qty: 1 on 12/26/2010 at OR [facility] N/A: Heart [employer] 10/13/2013 [facility] / / [id number] Sut Steel 6 M654g - [id number] Implanted:Qty: 5 on 12/26/2010 at OR [facility] Chest DO NOT USE 10/14/2015 M654G / / [id number] Band Ankur 225-241 - [id number] Implanted:Qty: 1 on 12/26/2010 at OR [facility] Chest [employer] 225-105 / / [id number] Lens Intraoc 17.5 - [id number] - [id number] Implanted:Qty: 1 on 02/07/2019 by Quincy Paiz MD at OR [facility] Right: Eye [employer]OM[employer] 08/14/2023 [id number] / [id number] / [id number] Lens Intraoc 17.0 - [id number] - [id number] Implanted:Qty: 1 on 03/01/2019 by Quincy Paiz MD at OR [facility] Left: Eye BA[employer]CH [employer] LOMB 09/12/2022 [id number] / [id number] / [id number] documented as of this encounter Visit Diagnoses [...] than 8.0% ([facility]) Atherosclerosis of atka coronary artery of atka heart without angina pectoris Essential hypertension with goal blood pressure less than 140/90 Primary hypertension Unspecified essential hypertension Dyslipidemia, goal LDL below 70 Other and unspecified hyperlipidemia Ischemic cardiomyopathy Other specified forms of chronic ischemic heart disease Multiple pulmonary nodules Other nonspecific abnormal finding of lung field Old [place] (myocardial infarction) Old myocardial infarction Statin intolerance Other drug allergy documented in this encounter Advance Directives Documents on File Type Date Recorded 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
--- OUTSIDE RECORDS SUMMARY | 2022-11-16 13:16 | External Medical Summary | Summary of Care ---
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 Mechanic Name Role Phone Smith Orozco MD Primary Care Provider [phone] Reason for Visit * Reason Onset Date Comments Medication Pre-auth 05/03/2020 Encounter Details Date Type Department Care Team Description 05/03/2020 Telephone Cardiology, [facility] [address] [place] [address] Alcon Lott PA-C [address] [facility] [place] [address] [phone] Medication Pre-auth Allergies Active Allergy Reactions Severity Noted Date Comments Acetaminophen Renal complications 04/27/2009 Aspirin 08/13/2000 Stomach pain Cholestyramine 08/13/2000 Kidney pain Atorvastatin Calcium 04/28/2007 cramping Niacin Muscle pain 07/22/2007 Simvastatin Hives 08/13/2000 Ezetimibe 04/28/2007 Cramping ankles, turned feet inward documented as of this encounter (statuses as of 05/04/2020) Medications Medication Sig Dispensed Refills Start Date [...] HCl 2 MG Oral CapsuleIndications :Atherosclerosis of [place] coronary artery of [place] heart without angina pectoris,BPH with obstruction/lower urinary tract symptoms,Essential hypertension with goal blood pressure less than 140/90 Take 1 Cap by mouth at bedtime. 90 Cap 1 03/01/2020 Active Valsartan 320 MG Oral TabletIndications: Atherosclerosis of [place] coronary artery of [place] heart without angina pectoris,Primary hypertension Take 1 [...] Subcutaneous Solution Auto-injector (Alirocumab)Indica tions:Atherosclero sis of [place] coronary artery of [place] heart without angina pectoris,Dyslipide yasmin, goal LDL below 70,Old [place] (myocardial infarction),Type 2 diabetes mellitus with hemoglobin A1c goal of less than 8.0% ([facility]),Statin intolerance Inject 75 mg under the skin every 14 days. 2 mL 11 05/04/2020 Active Repatha SureClick 140 MG/ML Subcutaneous Solution Auto-injector (evolocumab)Indica tions:Statin intolerance,Dyslip idemia, goal LDL below 70 Inject 140 mg under the skin every 14 days. Remove from refrigerator 30 minutes prior to injection. 2 Each 11 05/03/2020 1 Discontinue d(Medicatio n/Dose Changed) documented as of this encounter (statuses as of 05/04/2020) Active Problems Problem Noted Date Type 2 [...] to patient at prior appointment. Atherosclerosis of [place] co ronary artery of [place] heart without angina pectoris 11/30/2001 GENERAL OSTEOARTHROSIS Multiple pulmonary nodules Complex renal cyst Overview: 3.8 cm; L Old [place] (myocardial infarction) documented as of this encounter (statuses as of 05/04/2020) Resolved Problems Problem Noted Date Resolved Date Genomics Cardio Research Other*[id number] 201004/22/2016 Overview: Study Titile: Genomics Markers for Patients with Cardiovascular Disease Project # [id number] PI: Amalia Kingsley MD Please call [phone] with study related questions HTN, goal below [...] as of this encounter (statuses as of 05/04/2020) Immunizations Name Administration Dates Next Due Pneumococcal [...] encounter Miscellaneous Notes * Telephone Encounter - Wen Linda PA-C - 05/04/2020 12:54 PM EST Script signed in coverage for Jovi Lott PA-C It automatically sent to [facility] specialty pharmacy, despite selecting retail. Please notify them to forward script. * Telephone Encounter - Suzan Alcantar RN - 05/04/2020 9:24 AM EST Further documentation received on prior auth. Praluent preferred drug for formulary. Praluent pended, please sign if agreeable. Pended to retail (local) pharmacy as [facility] does not dispense from specialty pharmacy any longer, preferred is retail. * Telephone Encounter - Suzan Alcantar RN - 05/03/2020 2:59 PM EST Prior authorization initiated via CoverMyMeds. Will await decision. Praluent may be preferred agent for plan. * Telephone Encounter - Riya Chanel TECH - 05/03/2020 1:57 PM EST Prior authorization is needed for repatha through [facility] insurance. ID: [id number], BIN [id number], PCN [id number], GRP [id number] Thank you. Riya Chanel [facility] 05/03/2020,1:58 PM documented in this encounter Plan of Treatment Upcoming Encounters Date Type Specialty Care Team Description 08/30/2020 Office Visit Internal Medicine Smith Orozco MD [address] [place] [address] [place] [address] 11/01/2020 Office Visit Dermatology Kim Kong MD [address] [place] [address], [place] [address] [phone] 11/06/2020 Office Visit Cardiology Alcon Lott PA-Adelfo [address] [facility] [place] [address] Health Maintenance Due Date Last Done [...] of this encounter Implants Implanted Type Area Glass Furnace Tender Device Identifier Shelf Expiration Date Model / Serial / Lot Marker Coronary [facility] - [id number] Implanted:Qty: 1 on 12/26/2010 at OR [facility] N/A: Heart [employer] 10/13/2013 AM-SD / / [id number] Sut Steel 6 M654g - [id number] Implanted:Qty: 5 on 12/26/2010 at OR [facility] Chest DO NOT USE 10/14/2015 M654G / / [id number] Band Ankur 225-241 - [id number] Implanted:Qty: 1 on 12/26/2010 at OR [facility] Chest [employer] 225-241 / / [id number] Lens Intraoc 17.5 - [id number] - [id number] Implanted:Qty: 1 on 02/07/2019 by Quincy Paiz MD at OR [facility] Right: Eye [employer]CH [employer] LOMB 08/14/2023 [id number] / [id number] / [id number] Lens Intraoc 17.0 - [id number] - [id number] Implanted:Qty: 1 on 03/01/2019 by Quincy Paiz MD at OR [facility] Left: Eye [employer]CH [employer] LOMB 09/12/2022 [id number] / [id number] / [id number] documented as of this encounter Visit Diagnoses Diagnosis Atherosclerosis of [place] coronary artery of [place] heart without angina pectoris- Primary Dyslipidemia, goal LDL below 70 Other and unspecified hyperlipidemia Old [place] (myocardial infarction) Old myocardial infarction Type 2 diabetes mellitus with hemoglobin A1c goal of less than 8.0% (HCC) Statin intolerance Other drug allergy documented in this encounter Advance Directives Documents on File Type Date Recorded 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
--- OUTSIDE RECORDS SUMMARY | 2022-11-16 13:16 | External Medical Summary | Summary of Care ---
Author Name Unknown Organization [place] [address] Care Team Providers Care Bead Picker Name Role Phone Smith Orozco MD Primary Care Provider Reason for Visit * Reason Comments Follow Up Encounter Details Date Type Department Care Team Description 05/03/2020 Office Visit Cardiology, [facility] [address] [place] [address] Alcon Lott PA-C [address] [place] [address] [phone] Ischemic cardiomyopathy*; Old VA (myocardial infarction); Statin intolerance; Atherosclerosis of [place] coronary artery of [place] heart without angina pectoris; Dyslipidemia, goal LDL below 70; Asymptomatic bilateral carotid artery stenosis; HTN, goal below 130/80; Essential hypertension with goal blood pressure less than 140/90 Allergies Active Allergy Reactions Severity Noted Date Comments Acetaminophen Renal complications 04/27/2009 Aspirin 08/13/2000 Stomach pain Cholestyramine 08/13/2000 Kidney pain Atorvastatin Calcium 04/28/2007 cramping Niacin Muscle pain 07/22/2007 Simvastatin Hives 08/13/2000 Ezetimibe 04/28/2007 Cramping ankles, turned feet inward documented as of this encounter (statuses as of 05/07/2020) Medications Medication Sig Dispensed Refills Start Date End Date Status GAVI 180 MG PO TABSIndications: Allergic rhinitis One pill by mouth once a day for allergies 30 5 0 Active Additional Information Patient taking differently: Oral, Indications: as needed, Reported on 02/02/2019 MAGNESIUM OXIDE 200 MG PO TABSIndications: Cramp in limb one tablet twice a day 60 Tab 5 1 Active SB LOW DOSE ASA EC 81 MG PO TBECIndications: pmond, thursday Take by mouth. Indications: pmond, thursday 0 Active MULTI-VITAMIN PO TABS one pill each day 0 Active tretinoin (RETIN-A) 0.05 % creamIndications :Actinic keratosis APPLY NIGHTLY TO FACE DIRECTED,CAN MIX WITH PONDS 45 g 5 0 Active ONETOUCH ULTRA STRPIndications: Type 2 diabetes mellitus with hemoglobin A1c goal of less than 8.0% ([facility]) USE ONE TEST STRIP TO TEST BLOOD SUGAR LEVELS TWICE A DAY 200 Strip 5 0 Active OneTouch UltraSoft Lancets MISCIndications: Type 2 diabetes mellitus with hemoglobin A1c goal of less than 8.0% ([facility]) USE ONE LANCET TO TEST BLOOD SUGAR LEVELS TWICE A DAY 200 Each 3 0 Active Omeprazole 20 MG Oral Capsule Delayed Release (PriLOSEC)Indica tions:Peptic ulcer Take 1 Cap by mouth daily. 90 Cap 1 0 Active glipiZIDE ER 10 MG Oral Tablet Extended Release 24 Hour (GLUCOTROL XL)Indications:T ype 2 diabetes mellitus with hemoglobin A1c goal of less than 8.0% (HCC) Take 1 Tab by mouth 2 times a day. 180 Tab 1 0 Active Finasteride 5 MG Oral Tablet (PROSCAR)Indicat ions:BPH with obstruction/lowe r urinary tract symptoms Take 1 Tab by mouth daily. 90 Tab 1 0 Active metFORMIN HCl 1000 MG Oral Tablet (GLUCOPHAGE)Tracy cations:Type 2 diabetes mellitus with diabetic nephropathy (HCC),Type 2 diabetes mellitus with hemoglobin A1c goal of less than 8.0% (HCC) Take 1 Tab by mouth 2 times a day with morning and evening meals. 180 Tab 1 0 Active Terazosin HCl 2 MG Oral CapsuleIndicatio ns:Atheroscleros is of [place] coronary artery of [place] heart without angina pectoris,BPH with obstruction/lowe r urinary tract symptoms,Essenti al hypertension with goal blood pressure less than 140/90 Take 1 Cap by mouth at bedtime. 90 Cap 1 0 Active Valsartan 320 MG Oral TabletIndication s:Atherosclerosi s of [place] coronary artery of [place] heart without angina pectoris,Primary hypertension Take 1 Tab by mouth daily. 90 Tab 1 0 Active amLODIPine Besylate 5 MG Oral Tablet (Norvasc)Indicat ions:Essential hypertension with goal blood pressure less than 140/90,Old VA (myocardial infarction) Take 1 Tab by mouth daily. 90 Tab 3 1 Active Isosorbide Mononitrate ER 60 MG Oral Tablet Extended Release 24 Hour (Imdur) Take 1 Tab by mouth daily. In the morning 90 Tab 3 1 Active amLODIPine Besylate 5 MG Oral Tablet (NORVASC)Indicat ions:Essential hypertension with goal blood pressure less than 140/90,Old VA (myocardial infarction) TAKE 1 TABLET BY MOUTH TWICE A DAY 180 Tab 1 0 05/03/19 21 Discontinued Repatha SureClick 140 MG/ML Subcutaneous Solution Auto-injector (evolocumab)Tracy cations:Statin intolerance,Dysl ipidemia, goal LDL below 70 Inject 140 mg under the skin every 14 days. Remove from refrigerator 30 minutes prior to injection. 2 Each 11 1 05/04/19 21 Discontinued(Med ication/Dose Changed) documented as of this encounter (statuses as of 05/07/2020) Active Problems Problem Noted Date Type 2 [...] to patient at prior appointment. Atherosclerosis of [place] co ronary artery of [place] heart without angina pectoris 11/30/2001 GENERAL OSTEOARTHROSIS Multiple pulmonary nodules Complex renal cyst Overview: 3.8 cm; L Old VA (myocardial infarction) documented as of this encounter (statuses as of 05/07/2020) Resolved Problems Problem Noted Date Resolved Date [employer] Other*[id number] 201004/22/2016 Overview: Study Titile: [employer] Markers for Patients with Cardiovascular Disease Project # [id number] PI: Amalia Kingsley MD Please call [phone] with study related questions HTN, goal below [...] as of this encounter (statuses as of 05/07/2020) Immunizations Name Administration Dates Next Due Pneumococcal [...] Sign Reading Time Taken Comments Blood Pressure 144/72 05/03/2020 9:19 AM EST Pulse 66 05/03/2020 9:19 AM EST Temperature 35.8 C (96.4 F) 05/03/2020 9:19 AM ES T Respiratory Rate 14 05/03/2020 9:19 AM EST Oxygen Saturation - - Inhaled Oxygen Concentration - - Weight 67.1 kg (148 lb) 05/03/2020 9:19 AM EST Height - - Body Mass Index 24.63 03/01/2020 2:27 PM EST documented in this encounter Progress Notes * Alcon Lott PA-C - 05/03/2020 9:28 AM EST History of Present Illness: Mr. Reynolds is a very pleasant 79 year old male here today for routinecardiology follow-up. The patient has been feeling relatively well from a cardiac standpoint. His only complaint voiced is that of a dull pain in the left lower back/flank area approximately 2 to 3 weeks ago, occurring at rest, lasting 10 minutes, aided by laying down. He mentions this today as he has in the cardiology office the believes this may have been a muscle spasm. It was certainly unlikehis prior angina. He has been active since that time without any difficulty. He has not had any exertional chest pain. He has not experienced any change in his exercise tolerance or overall functional status. No sublingual nitroglycerin use. No palpitations. No new or worsening shortness of breath,cough, chest congestion, orthopnea, or PND however he does note increased bilateral lower extremityperipheral edema since last evaluation. No periods of immobility, injury, etc. no dizziness or lightheadedness. No near syncope or syncope. No fevers or chills. No night sweats. No epistaxis. No hemop tysis. No melena or hematochezia. No dysuria. No hematuria. Stable nocturia every 2 hours. No rash.No headaches or unilateral complaints. No amaurosis fugax. Home systolic blood pressure readings are relatively well controlled, typically 109 to 140 in the mornings, 120s to 165 in the evenings. Diastolic readings are always in the 60s to low 80's Patient Active Problem List Diagnosis Code GENERAL OSTEOARTHROSIS M15.9 Atherosclerosis of [place] coronary artery of [place] heart without angina pectoris I25.10 ADVANCE DIRECTIVE INFORMATION Type 2 diabetes mellitus with hemoglobin A1c goal of less than 8.0% ([facility]) E11.9 DYSLIPIDEMIA, GOAL LDL BELOW [...] I12.9, N18.2 Old VA (myocardial infarction) I25.2 Past Surgical History: Inguinal hernia. CABG Social History: From [place]. Lives in [place] with his . Reformed smoker. 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 Complete Review of Systems is as stated [...] PO TBEC Take by mouth. Indications: pmonday, wedday sandra MAGNESIUM OXIDE 200 MG PO TABS one tablet twice a day 60 Tab 5 GAVI 180 MG PO TABS One pill by mouth once a day for allergies (Patient taking differently: Take by mouth. Indications: as needed) 30 5 PHYSICAL EXAMINATION BP 144/72 (BP Site: Left Arm, BP Position: Sitting, BP Cuff Size: Large) | Pulse 66 | Temp 35.8 C(96.4 F) (Tympanic) | Resp 14 | Wt 67.1 kg (148 lb) | BMI 24.63 kg/m | BSA 1.75 m | Blood pressure my evaluation was 150/74, equal in both arms General: A&Ox3. NAD. HEENT: Normocephalic. Atraumatic. PER. Conjunctiva pink, sclera clear. Neck: Bilateral carotid bruits. No JVD. No HJR. Heart: Irregular with occasional ectopic beat. Heart rate in the 60s. Grade II/ systolic ejectionmurmur. No rub. No gallop. PMI is nondisplaced. Lungs: Clear to auscultation. Abdomen: +BS. No abdominal bruits. Soft. Nontender. No masses or organomegaly. Extremities: 1 to 2+ pitting edema bilaterally. No clubbing. No cyanosis. [...] artery stenosis. Heavily calcified plaque appreciated bilaterally EKG today demonstrates sinus rhythm at 64 bpm with a prolonged first-degree AV block, rightward axis, old anterior infarct, stable inferior T-wave abnormality suggesting ischemia. QTc is 406 ms. Component 08/19/2018 03/01/2020 HOURS FASTING NOT FASTING NOT FASTING Triglycerides 95 191 (H) Cholesterol 176 225 (H) HDL Cholesterol 55 59 Cholesterol-HDL Ratio 3.2 LDL Cholesterol 102 128 NON-HDL CHOLESTEROL 166 (H) ASSESSMENT: 1. ASCVD 1. Prior inferior VA in 1994 managed at [facility]. 2. Catheterization in 2010 following [...] Followed by PCP. 9. BPH 10. Volume overload Options of management discussed with patient. Plan as outlined below. RECOMMENDATIONS/PLAN: 1. Decrease amlodipine from 5 mg twice per day to 5 mg once a day. 2. Initiate Imdur 30 mg/day x1 week then 60 mg/day. 3. Explore Evolocumab (Repatha) 140 mg SubQ every two weeks 1. Fasting lipid profile and LFTs in 8 to 12 weeks if covered in tolerated. 4. Resting echocardiography to be arranged at next evaluation Instructions written. Benefits, use, and risks of the above explained. Medication list updated. Prescription for isosorbide sent to the pharmacy of his choice electronically. Repatha training pen reviewed with patient today. Cardiology follow-up with the above, routinely in 6 months, or as needed. ER with emergencies. Alcon Lott PA-C Department of Cardiology I spent a total of 50 minutes on the date of service in preparation, delivery, and documentation ofthe care provided to Cl Reynolds excluding any time spent in the performance of separately billed services. This chart was completed in part utilizing [employer] Voice Recognition Software. Grammatical errors, random word insertions, prounoun errors, and incomplete sentences are an occasional consequence of this system due to software limitations, ambient noise, and hardware issues. Any formal questions or concerns about the content, text, or information contained within the body of this dictation should be directly addressed to the provider for clarification. documented in this encounter Procedure Notes * Tulio Mcadams DO - 05/03/2020 9:33 AM EST Associated Order(s): EKG REASON FOR STUDY: ischemic cardiomyopathy, HTN CONCLUSIONS: Sinus rhythm with 1st degree AV block Rightward axis Anterior infarct (cited on or before 18-DEC-2010) T wave abnormality, consider inferior ischemia Abnormal ECG When compared with ECG of 31-MAR-2019 07:48, Nonspecific T wave abnormality no longer evident in Lateral leads Ventricular Rate: 64 Atrial Rate: 64 ME Interval: 290 QRS Duration: 118 QT/QTc: 394/406 ms P-R-T [place]: 60 : 91 : -27 degrees documented in this encounter Nursing Notes * Maged Marie LPN - 05/03/2020 9:20 AM EST Examination Room: 2 Name: Cl Reynolds Date of : (1940) Reason for Visit: f/u Interim Hospitalization(s): denies Problems/Concerns: reports dull ache in L kidney area approx 2wks ago, concerned it may be heart related Chest Pain/SOB: denies My [facility] is a [...] Office Visit Internal Medicine Smith Orozco MD [address] [place] [address] [place] [address] [phone] 11/01/2020 Office Visit Dermatology Kim Kong MD [address] [place] [address] [facility] [place] [address] [phone] 11/06/2020 Office Visit Cardiology Alcon Lott PA-C [address] [facility] [place] [address] [phone] Scheduled Orders Name Type Priority Associated Diagnoses Orde r Schedule LIPID PANEL WITH DIRECT LDL IF TG IS HIGH Lab Routine Statin intolerance Dyslipidemia, goal LDL below 70 Expected: 07/31/2020, Expires: 05/03/2021 COMPREHENSIVE METABOLIC PANEL Lab Routine Statin intolerance Dyslipidemia, goal LDL below 70 Expected: 07/31/2020, Expires: 05/03/2021 Health Maintenance Due Date Last Done Comments [...] of this encounter Implants Implanted Type Area 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/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 Device Identifier Shelf Expiration Date Model / Serial / Lot Marker Coronary [facility] - [id number] Implanted:Qty: 1 on 12/26/2010 at OR [facility] N/A: Heart [employer] 10/13/2013 AM-SD / / [id number] Sut Steel 6 M654g - [id number] Implanted:Qty: 5 on 12/26/2010 at OR [facility] Chest DO NOT USE 10/14/2015 M654G / / [id number] [facility] [id number] - [id number] Implanted:Qty: 1 on 12/26/2010 at OR [facility] Chest [employer] [id number] / / [id number] Lens Intraoc 17.5 - [id number] - [id number] Implanted:Qty: 1 on 02/07/2019 by Quincy Paiz MD at OR [facility] Right: Eye [employer] 08/14/2023 [id number] / [id number] / [id number] Lens Intraoc 17.0 - [id number] - [id number] Implanted:Qty: 1 on 03/01/2019 by Quincy Paiz MD at OR [facility] Left: Eye [employer] 09/12/2022 [id number] / [id number] / [id number] documented as of this encounter Procedures Procedure Name Priority Date/Time Associated Diagnosis Comments ME ECG ROUTINE ECG W/LEAST 12 LDS TRCG ONLY W/O I&R Routine 05/03/2020 9:33 AM EST Ischemic cardiomyopathy Old VA (myocardial infarction) documented in this encounter Results * EKG (05/03/2020 9:33 AM EST) Specimen Procedure Note Tulio Mcadams DO - 05/03/2020 9:33 AM EST REASON FOR STUDY: ischemic cardiomyopathy, HTN CONCLUSIONS: Sinus rhythm with 1st degree AV block Rightward axis Anterior infarct (cited on or before 18-DEC-2010) T wave abnormality, consider inferior ischemia Abnormal ECG When compared with ECG of 31-MAR-2019 07:48, Nonspecific T wave abnormality no longer evident in Lateral leads Ventricular Rate: 64 Atrial Rate: 64 ME Interval: 290 QRS Duration: 118 QT/QTc: 394/406 ms P-R-T [place]: 60 : 91 : -27 degrees [facility] documented in this encounter Visit Diagnoses Diagnosis Ischemic cardiomyopathy- Primary Other specified forms of chronic ischemic heart disease Old VA (myocardial infarction) Old myocardial infarction Statin intolerance Other drug allergy Atherosclerosis of [place] coronary artery of [place] heart without angina pectoris Dyslipidemia, goal LDL below 70 Other and unspecified hyperlipidemia Asymptomatic bilateral carotid artery stenosis Occlusion and stenosis of multiple and bilateral precerebral arteries without mention of cerebral infarction HTN, goal below 130/80 Unspecified essential hypertension Essential hypertension with goal blood pressure less than 140/90 documented in this encounter Advance Directives Documents on File Type Date Recorded 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
--- OUTSIDE RECORDS SUMMARY | 2022-11-16 13:16 | External Medical Summary | Summary of Care ---
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 Role Phone Smith Orozco MD Primary Care Provider Reason for Visit * Reason Comments Medication Refill Medication Management Encounter Details Date Type Department Care Team Description 05/08/2020 Pharmacy [facility], [address] [place] [address] Medication, [facility], [address] [place] [address] [phone] Encounter for medication refill* Allergies Active Allergy Reactions Severity Noted Date Comments Acetaminophen Renal complications 04/27/2009 Aspirin 08/13/2000 Stomach pain Cholestyramine 08/13/2000 Kidney pain Atorvastatin Calcium 04/28/2007 cramping Niacin Muscle pain 07/22/2007 Simvastatin Hives 08/13/2000 Ezetimibe 04/28/2007 Cramping ankles, turned feet inward documented as of this encounter (statuses as of 05/08/2020) Medications Medication Sig Dispensed Refills Start Date [...] HCl 2 MG Oral CapsuleIndications:A therosclerosis of [place] coronary artery of [place] heart without angina pectoris,BPH with obstruction/lower urinary tract symptoms,Essential hypertension with goal blood pressure less than 140/90 Take 1 Cap by mouth at bedtime. 90 Cap 1 03/01/2020 Active Valsartan 320 MG Oral TabletIndications:At herosclerosis of [place] coronary artery of [place] heart without angina pectoris,Primary hypertension Take 1 Tab by mouth daily. 90 Tab 1 03/01/2020 Active amLODIPine Besylate 5 MG Oral Tablet (Norvasc)Indications :Essential hypertension with goal blood pressure less than 140/90,Old [place] (myocardial infarction) Take 1 Tab by mouth daily. 90 Tab 3 05/03/2020 Active Isosorbide Mononitrate ER 60 MG Oral Tablet Extended Release 24 Hour (Imdur) Take 1 Tab by mouth daily. In the morning 90 Tab 3 05/03/2020 Active Praluent 75 MG/ML Subcutaneous Solution Auto-injector (Alirocumab)Indicati ons:Atherosclerosis of [place] coronary artery of [place] heart without angina pectoris,Dyslipidemi a, goal LDL below 70,Old IL (myocardial infarction),Type 2 diabetes mellitus with hemoglobin A1c goal of less than 8.0% (HCC),Statin intolerance Inject 75 mg under the skin every 14 days. 2 mL 11 05/04/2020 Active documented as of this encounter (statuses as of 05/08/2020) Active Problems Problem Noted Date Type 2 [...] to patient at prior appointment. Atherosclerosis of [place] co ronary artery of [place] heart without angina pectoris 11/30/2001 GENERAL OSTEOARTHROSIS Multiple pulmonary nodules Complex renal cyst Overview: 3.8 cm; L Old IL (myocardial infarction) documented as of this encounter (statuses as of 05/08/2020) Resolved Problems Problem Noted Date Resolved Date Gen[employer] Card[employer] Research Other*[id number] 201004/22/2016 Overview: Study Titile: Genomics Markers for Patients with Cardiovascular Disease Project # [id number] PI: Amalia Kingsley MD Please call [phone] with study related questions HTN, goal below [...] 01/24/2002 10/12/2015 Solar lentigo 10/27/2001 04/30/2016 ACUTE IL; INFERIOR WALL;SUBSEQUENT EPISODE CARE 06/21/2013 HYPERTENSION NOS [...] as of this encounter (statuses as of 05/08/2020) Immunizations Name Administration Dates Next Due Pneumococcal [...] as of this encounter Progress Notes * Anson Barber, [facility] - 05/08/2020 5:19 PM EST Medication Therapy Management Specialty Pharmacy Assessment Initial Note Name: Cl Reynolds Patient is a 79 year old male presently being assessed for Cardiovascular/Lipid Lowering. After providing patient with a thorough explanation and introduction to program, patient opts out of counseling only. Indication for treatment:: cardiovascular Indication confirmed with patient? yes. Other pertinent diagnoses: HTN. Date of diagnosis: unsure. Drug allergies: yes: In chart Depression Screenin. Little interest or pleasure in doing things - 0 2. Feeling down, depressed or hopeless - 0 Scoring for each: Not at all = 0, Several days = 1, More than half the days = 2, Nearly every day =3 Current medication regimen for above noted indication: Praluent Formulation: pen Date of initiation of present therapy: approximately 05/11. Is this a new therapy? yes Stop date for present therapy: unsure. Prior DMARD Therapy: Prior history of DMARD? No Drug Interactions: Has physician reviewed with patient which medications have the potential to interact with? yes. Assessment of education: basic understanding. Education provided today: yes; verbal. Appropriate Lab Monitoring: Applicable lab values: Yes, HOURS FASTING hours NOT FASTING R5500 Triglycerides 0 - 174 mg/dL 191High GCHEM1 Comment: Triglyceride Reference Ranges (mg/dL) <150 Acceptable 150-174 Borderline high 175-499 High >=500 Very high Cholesterol <200 mg/dL 225High GCHEM1 Comment: Total Cholesterol Reference Ranges (mg/dL) <200 Desirable 200-239 Borderline high >=240 High HDL Cholesterol >39 mg/dL 59 GCHEM1 Comment: HDL Cholesterol Reference Ranges (mg/dL) >=60 High (Desirable) <50 Low (Undesirable) For Females <40 Low (Undesirable) For Males NON-HDL CHOLESTEROL 0 - 159 mg/dL 166High GCHEM1 Comment: Non-HDL Cholesterol Reference Range (mg/dL) <100 Target level for high risk ASCVD patient <130 Optimal for general population 130-159 Near optimal for general population 160-189 Borderline High 190-219 High >=220 Very High LDL Cholesterol 0 - 129 mg/dL 128 GCHEM1 Comment: LDL Cholesterol Reference Ranges (mg/dL) <70 Target level for high risk ASCVD patient <100 Optimal for general population 100-129 Near optimal for general population 130-159 Borderline high 160-189 High >=190 Very high LDL Cholesterol (Direct Measure) 0 - 129 mg/dL NOT APPLICABLE GCHEM1 Specimen Collected: 03/01/20 14:51 Last Resulted: 03/01/20 22:17 Next scheduled labs: unknown. Concomitant Medication(s): Current prescription medications being used for above noted indication: Praluent Current prescription medications for other indications: medlist updated in EHR OTC medications/herbal remedies: medlist updated in EHR Has the patient previously been treated for this condition? Yes Therapies previously tried for above noted indication: Statins,zetia; discontinued due to: Inefficacy statins Impairment: Number of work/school days missed in last month due to above noted condition: 0. Number of days less productive in last 3 months due to above noted condition: 0. Findings/recommendations: Intervention: initial onboarding: no issues [facility] has the following health concerns regarding this patient: none. Necessary equipment or supplies: not applicable. Dietary/nutritional needs: not applicable. Safety measures: not applicable. Intervention/information provided today: patient education .. Expected outcomes/goals: lower ldl Is patient agreeable to recommendations/changes made: not applicable. Care Coordination with treating physician/care providers: not applicable. Does patient agree to follow up: yes; patient verbalized understanding. Follow-up with patient to assess intervention taken: not applicable Next follow-up date: 9 months Proposed date of plan of care goal completion/target met, if applicable: n/a Medication Shipment Information: Prior authorization date: not applicable Discussed delivery procedure? yes; patient verbalized understanding Location Medication Delivered too? Home Discussed refill procedure? yes; patient verbalized understanding Discussed copay of prescription? yes; patient verbalized understanding Discussed payment options? yes; patient verbalized understanding Shipment date: 05/10 Patient advised signature required upon receipt of shipment? not applicable Medication to be shipped to: [address] [place] [address] Other supplies/information provided to patient with shipment: n/a Patient gave clinic permission to discuss care with family member/caregiver: no Miscellaneous Clinic Notes: not applicable Anson Barber [facility] Clinical Pharmacist 05/08/2020, 5:20 PM documented in this encounter Plan of Treatment Upcoming Encounters Date Type Specialty Care Team Description 06/01/2020 Pharmacy Pharmacy Medication, [facility] [address] [phone] 08/30/2020 Office Visit Internal Medicine Smith Orozco MD [address] [place] [address] [place] [address] [phone] 11/01/2020 Office Visit Dermatology Kim Kong MD [address] [place] [address] [phone] 11/06/2020 Office Visit Cardiology Alcon Lott [facility] [address] [facility] [address] [phone] 02/05/2021 Pharmacy Pharmacy Medication, [facility] [address] [phone] Health Maintenance Due Date Last Done Comments [...] of this encounter Implants Implanted Type Area Infantry Officer Device Identifier Shelf Expiration Date Model / Serial / Lot Marker Coronary [facility] - [id number] [place]ed:[place] 1 [place] [facility] [place] Heart [employer] 10/13/2013 AM-SD / / [id number] Sut Steel 6 M654g - [id number] Implanted:Qty: 5 on 12/26/2010 [place] [facility] [place] Chest DO NOT USE 10/14/2015 M654G / / [id number] Alonso [place] 225-241 - [id number] Implanted:Qty: 1 on 12/26/2010 [place] [facility] [place] [employer] 225-241 / / [id number] Lens Intraoc 17.5 - [id number] - [id number] Implanted:Qty: 1 on 02/07/2019 by Quincy aPiz MD at OR [facility] Right: Eye [employer]OM[employer] 08/14/2023 [id number] / [id number] / [id number] Lens Intraoc 17.0 - [id number] - [id number] Implanted:Qty: 1 on 03/01/2019 by Quincy Paiz MD at OR [facility] Left: Eye [employer] LOMB 09/12/2022 [id number] / [id number] / [id number] documented as of this encounter Visit Diagnoses Diagnosis Encounter for medication refill- Primary Issue of repeat prescriptions documented in this encounter Advance Directives Documents on File Type Date Recorded 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
--- OUTSIDE RECORDS SUMMARY | 2022-11-16 13:16 | External Medical Summary ---
Author Name Unknown Address [address] [facility] [place] [address] Phone Organization K01:[facility] [address] [id number] Laboratory Report Ordering Provider Test Date Status MASON CLOUDKOBI 03/01/2020 14:51:00 Final Observation Date Value Abnormality Reference (Units ) Status BUN 03/01/2020 22:17 33 Above high normal 6-20 (mg/dL) Final Creatinine 03/01/2020 22:17 1.0 0.6-1.2 (mg/ dL) Final E Glom Filt Rate 03/01/2020 22:17 >60.0 >60 Final Performing Location [facility] [address] [facility] [address]
--- OUTSIDE RECORDS SUMMARY | 2022-11-16 13:17 | External Medical Summary | Summary of Care ---
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 Name Role Phone Smith Danielle MD Primary Care Provider Reason for Visit * Reason Comments Pt Portal Med Renewal Encounter Details Date Type Department Care Team Description 08/15/2019 Refill Internal Medicine [address] [address] Smith Danielle MD [address] [place] [address] [place] [address] [phone] Type 2 diabetes mellitus with hemoglobin A1c goal of less than 8.0% ([facility]) Allergies Active Allergy Reactions Severity Noted Date Comments Acetaminophen Renal complications 04/27/2009 Aspirin 08/13/2000 Stomach pain Cholestyramine 08/13/2000 Kidney pain Atorvastatin Calcium 04/28/2007 cramping Niacin Muscle pain 07/22/2007 Simvastatin Hives 08/13/2000 Ezetimibe 04/28/2007 Cramping ankles, turned feet inward documented as of this encounter (statuses as of 08/15/2019) Medications Medication Sig Dispensed Refills Start Date End Date Status GAVI 180 MG PO TABSIndications:Al lergic rhinitis One pill by mouth once a day for allergies 30 5 07/23/2009 Active Additional Information Patient taking differently: Oral, Indications: as needed, Reported on 02/02/2019 8:51 AM MAGNESIUM OXIDE 200 MG PO TABSIndications:Cr amp in limb one tablet twice a day 60 Tab 5 07/16/2010 Active SB LOW DOSE ASA EC 81 MG PO TBECIndications:pm , thursday Take by mouth. Indications: pmond, thursday 0 Active MULTI-VITAMIN PO TABS one pill each day 0 Active ONETOUCH ULTRASOFT LANCETS MISCIndications:Ty pe 2 diabetes mellitus with hemoglobin A1c goal of less than 8.0% (HCC) USE ONE LANCET TO TEST BLOOD SUGAR LEVELS TWICE A DAY 300 Each 3 08/24/2018 Active ONETOUCH ULTRA BLUE STRPIndications:Ty pe 2 diabetes mellitus with hemoglobin A1c goal of less than 8.0% (HCC) USE ONE TEST STRIP TO TEST BLOOD SUGAR LEVELS TWICE A DAY 300 Strip 3 08/24/2018 Active losartan (COZAAR) 50 MG TabletIndications: HTN, goal below 140/80 Take 1 Tab by mouth 2 times a day. 180 Tab 1 03/21/2019 Active finasteride (PROSCAR) 5 MG TabletIndications: BPH with obstruction/lower urinary tract symptoms Take 1 Tab by mouth daily. 90 Tab 1 03/21/2019 Active Terazosin HCl 2 MG CapsuleIndications :Atherosclerosis of [place] of [place] coronary artery of [place] of [place] heart without angina pectoris,BPH with obstruction/lower urinary tract symptoms,Essential hypertension with goal blood pressure less than 140/90 Take 1 Cap by mouth at bedtime. 90 Cap 3 03/21/2019 Active tretinoin (RETIN-A) 0.05 % creamIndications:A ctinic keratosis APPLY NIGHTLY TO FACE DIRECTED,CAN MIX WITH PONDS 45 g 5 03/28/2019 Active MetFORMIN (GLUCOPHAGE) 1000 MG TabletIndications: Type 2 diabetes mellitus with diabetic nephropathy (HCC),Type 2 diabetes mellitus with hemoglobin A1c goal of less than 8.0% (HCC) TAKE 1 TABLET BY MOUTH TWICE A DAY WITH MEALS 180 Tab 1 04/19/2019 Active omeprazole (PRILOSEC) 20 MG CPDRIndications:Pe ptic ulcer Take 1 Cap by mouth daily. 90 Cap 1 07/18/2019 Active amLODIPine (NORVASC) 5 MG TabletIndications: Essential hypertension with goal blood pressure less than 140/90,Old [place] (myocardial infarction) Take 1 Tab by mouth 2 times a day. 180 Tab 1 07/29/2019 Active glipiZIDE XL (GLUCOTROL XL) 10 MG [id number]:Ty pe 2 diabetes mellitus with hemoglobin A1c goal of less than 8.0% (HCC) Take 1 Tab by mouth 2 times a day. 180 Tab 1 08/15/2019 Active glipiZIDE XL (GLUCOTROL XL) 10 MG [id number]:Ty pe 2 diabetes mellitus with hemoglobin A1c goal of less than 8.0% (HCC) TAKE 1 TABLET BY MOUTH TWICE A DAY 180 Tab 1 02/05/2019 0 Discontinue d(Refill) documented as of this encounter (statuses as of 08/15/2019) Active Problems Problem Noted Date Type 2 diabetes mellitus wit h stage 2 chronic kidney disease and hypertension 02/18/2018 Hx of nonmelanoma skin cancer 11/19/2016 Overview: L superior posterior helix SCC 09/2016 Type 2 diabetes mellitus wit h stage 2 chronic kidney disease, without long-term current use of insulin 01/24/2016 Hx of actinic keratosis 10/12/2015 Ischemic cardiomyopathy 08/22/2014 Statin intolerance 08/12/2012 Essential hypertension with goal blood p ressure less than 140/90 11/03/2011 Overview: Per HTN Protocol #27. BPH with obstruction/lower urinary tract symptoms 11/01/2009 DYSLIPIDEMIA, GOAL LDL BELOW 70 02/23/20 Overview: Per Lipid Taxonomy. Type 2 diabetes mellitus with hemoglobin A1c goal of less than 8.0% 01/11/2009 Overview: Per Diabetes Taxonomy. ICD-10 update of inactive term ADVANCE DIRECTIVE INFORMATION 12/23/2006 Overview: No, Advance Directive brochure given to patient at prior appointment. Atherosclerosis of [place] co ronary artery of [place] heart without angina pectoris 11/30/2001 GENERAL OSTEOARTHROSIS Multiple pulmonary nodules Complex renal cyst Overview: 3.8 cm; L Old [place] (myocardial infarction) documented as of this encounter (statuses as of 08/15/2019) Resolved Problems Problem Noted Date Resolved Date Genomics Cardio Research Other*[id number] 201004/22/2016 Overview: Study Titile: Genomics Markers for Patients with Cardiovascular Disease Project # [id number] PI: Amalia Kingsley MD Please call [phone] with study related questions HTN, goal below [...] as of this encounter (statuses as of 08/15/2019) Immunizations Name Administration Dates Next Due Pneumococcal Conjugate Vacc, 13 Valent (Prevnar) 10/16/2015 Pneumococcal Polysaccharide PPV23 (Pneumovax) 12/15/2006,04/01/2002 Seasonal Influenza, Quadriva lent, No Preserve, 6 Mons & Above, IM 11/17/2017 Seasonal Influenza, Quadriva lent, No Preserve, IM 11/21/2016,11/27/2015 Seasonal Influenza, Trivalen t, Adjuvanted, 65+ yrs 11/22/2018 Seasonal Influenza, Trivalen t, with Preserve, 3yr & Above, Split 12/04/2014,11/23/2013,12/07/2012,11/14,11/20/2010,12/13/2009,01/11/20 09,01/04/2008,12/15/2006,12/23/2005,1 ,12/25/2003,12/29/2002,01/19,01/05/2001 01/19/2003 TD - Tetanus/Diptheria (ADULT) 03/16/2003 TDAP (age 10 and older)(Boostrix) 08/05/2012 Varicella Zoster Vaccine (Adult) 11/15/2011 documented as of this encounter Social History [...] have Coronavirus / COVID-19? No / Unsure 08/11/2019 7:44 AM EDT documented as of this encounter Miscellaneous Notes * Telephone Encounter - Smith Danielle MD - 08/15/2019 3:13 PM EDT Signed Prescriptions: Disp Refills glipiZIDE XL (GLUCOTROL XL) 10 MG TB24 180 Tab1 Sig: Take 1 Tab by mouth 2 times a day. Authorizing Provider: SMITH DANIELLE * Telephone Encounter - Kasey Rosales LPN - 08/15/2019 2:36 PM EDT Pending Prescriptions: Disp Refills glipiZIDE XL (GLUCOTROL XL) 10 MG TB24 180 Tab1 Sig: Take 1 Tab by mouth 2 times a day. Last Office/Telemedicine Visit: 02/01/2019 Next Office Visit: 08/30/2019 Scheduled Provider(s): Smith Danielle MD Last date the medication was ordered: 02/05/19 Patient Active Problem List Diagnosis Code GENERAL OSTEOARTHROSIS M15.9 Atherosclerosis of [place] of [place] coronary artery of [place] heart without angina pectoris I25.10 ADVANCE DIRECTIVE INFORMATION Type 2 diabetes mellitus with hemoglobin A1c goal of less than 8.0% (HCC) E11.9 DYSLIPIDEMIA, GOAL LDL BELOW 70 E78.5 BPH with obstruction/lower urinary tract symptoms N40.1, N13.8 Essential hypertension with goal blood pressure less than 140/90 I10 Statin intolerance Z78.9 Multiple pulmonary nodules R91.8 Ischemic cardiomyopathy I25.5 Complex renal cyst N28.1 Hx of actinic keratosis Z87.2 Type 2 diabetes mellitus with stage 2 chronic kidney disease, without long- term current use of insulin (HCC) E11.22, N18.2 Hx of nonmelanoma skin cancer Z85.828 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) E11.22, I12.9, N18.2 Old DC (myocardial infarction) I25.2 Labs: CREATININE(mg/dL) Lucía Dt/Tm Resulted Value Status 03/31/19 8:26A 03/31/19 0.9 FINAL POTASSIUM(mmol/L) Lucía Dt/Tm Resulted Value Status 03/31/19 8:26A 03/31/19 4.4 FINAL TSH(uIU/mL) Lucía Dt/Tm Resulted Value Status 04/28/18 9:11A 04/28/18 3.81 FINAL LDL (CALCULATED)(mg/dL) Lucía Dt/Tm Resulted Value Status 08/19/18 8:36A 08/19/18 102 EDITED LDL DIRECT(REFLEX)(mg/dL) Lucía Dt/Tm Resulted Value Status Value: NOT APPLICABLE ALT(U/L) Lucía Dt/Tm Resulted Value Status 03/31/19 8:26A 03/31/19 21 FINAL Hemoglobin AIC Results: HEMOGLOBIN, A1C(%) Lucía Dt/Tm Resulted Value Status 03/31/19 8:26A 03/31/19 7.3* FINAL 08/19/18 8:36A 08/19/18 6.9* FINAL 02/18/18 11:12A 02/18/18 7.1* FINAL * Telephone Encounter - Kasey Rosales LPN - 08/15/2019 2:36 PM EDT Message from [employer]: Cl Reynolds would like a refill of the following medications: glipiZIDE XL (GLUCOTROL XL) 10 MG TB24 [Smith Danielle MD] Preferred pharmacy: [id number] [address] documented in this encounter Plan of Treatment Upcoming Encounters Date Type Specialty Care Team Description 08/30/2019 Office Visit Internal Medicine Smith Danielle MD [address] [place] [address] [place] [address] 09/29/2019 Office Visit Cardiology Alcon Lott PA-C [address] [facility] [place] [address] 11/11/2019 Office Visit Dermatology Kim Kong MD [address] [place] [address] [place] [address] [phone] 02/14/2020 Imaging Radiology Health Maintenance Due Date Last Done Comments Zoster Vaccines (2 of 3) 01/10/2012 11/15/2011 *DEPRESSION SCREENING,ANNUAL FOR PTS 12 AND OVER 02/20/2019 Yearly B-12 08/20/2019 08/19/2018, 08/12/2017 DIABETES-HGBA1C EVERY 6 MONTHS 09/29/2019 03/31/2019, 08/19/2018, 02/18/2018, Additional history exists DIABETES-EYE EXAM 11/10/2019 11/09/2018, , 10/10/2015, Additional history exists DIABETES-FOOT EXAM 01/25/2020 01/24/2019, 1 04/21/2017, 01/30/2017, Additional history exists DTaP,Tdap,and Td Vaccines (2 - Td) 08/05/2022 08/05/2012, 03/16/2003 Pneumococcal Vaccine: 65+ Years Completed 10/16/2015, 12/15/2006, 04/01/2002 Influenza Vaccine (FLU shot) Completed 11/2018, 11/17/2017, 11/21/2016, Additional history exists MENINGOCOCCAL (MENACTRA/MENVEO) Aged Out No longer eligible based on patient's age to complete this topic documented as of this encounter Implants Implanted Type Area Rasper Machine Operator Device Identifier Shelf Expiration Date Model / Serial / Lot Marker Coronary [facility] - [id number] Implanted:Qty: 1 on 12/26/2010 at OR [place] N/A: Heart [employer] 10/13/2013 [facility] / / [id number] Sut Steel 6 M654g - [id number] Implanted:Qty: 5 on 12/26/2010 at OR [place] Chest DO NOT USE 10/14/2015 M654G / / [id number] Alonso [facility] 225-241 - [id number] Implanted:Qty: 1 on 12/26/2010 at OR [place] Chest [employer] 225-241 / / [id number] Lens Intraoc 17.5 - [id number] - [id number] Implanted:Qty: 1 on 02/07/2019 by Quincy Paiz MD at [place] [facility] Right: Eye [employer]OM[employer] 08/14/2023 [id number] / [id number] / [id number] Lens Intraoc 17.0 - [id number] - [id number] Implanted:Qty: 1 on 03/01/2019 by Quincy Paiz MD at OR [facility] Left: Eye [employer] LOMB 09/12/2022 [id number] / [id number] / [id number] documented as of this encounter Visit Diagnoses Diagnosis Type 2 diabetes mellitus with hemoglobin A1c goal of less than 8.0% (HCC) documented in this encounter Advance Directives Documents on File Type Date Recorded 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
--- OUTSIDE RECORDS SUMMARY | 2022-11-16 13:17 | External Medical Summary | Summary of Care ---
Author Name Unknown Organization [place] [address] Care Team Providers Care Landscape Architect Name Role Phone Smith Orozco MD Primary Care Provider + [phone] Reason for Visit * Reason Comments Follow Up Patient here for an AK check on his face. He declines a FSE today. He denies new or changing lesions on his face or arms. Encounter Details Date Type Department Care Team Description 11/11/2019 Office Visit Dermatology [facility] [address] [place] [address] Kim Kong MD [address] [place] [address] [id number] AK (actinic keratosis)*; Hx of actinic keratosis; Hx of nonmelanoma skin cancer; Scar; Photoaged skin Allergies Active Allergy Reactions Severity Noted Date Comments Acetaminophen Renal complications 04/27/2009 Aspirin 08/13/2000 Stomach pain Cholestyramine 08/13/2000 Kidney pain Atorvastatin Calcium 04/28/2007 cramping Niacin Muscle pain 07/22/2007 Simvastatin Hives 08/13/2000 Ezetimibe 04/28/2007 Cramping ankles, turned feet inward documented as of this encounter (statuses as of 11/11/2019) Medications Medication Sig Dispensed Refills Start Date [...] each day 0 Active ONETOUCH ULTRASOFT LANCETS MISCIndications:Type 2 diabetes mellitus with hemoglobin A1c goal of less than 8.0% (FORM[facility]LY [facility]) USE ONE LANCET TO TEST BLOOD SUGAR LEVELS TWICE A DAY 300 Each 3 08/24/2018 Active ONETOUCH ULTRA BLUE STRPIndications:Type 2 diabetes mellitus with hemoglobin A1c goal of less than 8.0% ([facility]) USE ONE TEST STRIP TO TEST BLOOD SUGAR LEVELS TWICE A DAY 300 Strip 3 08/24/2018 Active Terazosin HCl 2 MG CapsuleIndications:A therosclerosis of [place] coronary artery of [place] heart without angina pectoris,BPH with obstruction/lower urinary [...] less than 140/90,Old [place] (myocardial infarction) Take 1 Tab by mouth 2 times a day. 180 Tab 1 07/29/2019 Active glipiZIDE XL (GLUCOTROL XL) 10 MG [id number]:Type 2 diabetes mellitus with hemoglobin A1c goal of less than 8.0% ([facility]) Take 1 Tab by mouth 2 times [...] Active Valsartan 320 MG TabletIndications:At herosclerosis of [place] coronary artery of [place] heart without angina pectoris,Primary hypertension Take 1 Tab by mouth daily. 90 Tab 1 09/01/2019 Active documented as of this encounter (statuses as of 11/11/2019) Active Problems Problem Noted Date Type 2 [...] to patient at prior appointment. Atherosclerosis of [place] co ronary artery of [place] heart without angina pectoris 11/30/2001 GENERAL OSTEOARTHROSIS Multiple pulmonary nodules Complex renal cyst Overview: 3.8 cm; L Old [place] (myocardial infarction) documented as of this encounter (statuses as of 11/11/2019) Resolved Problems Problem Noted Date Resolved Date Genomics Cardio Research Other*[id number] 201004/22/2016 Overview: Study Titile: Genomics Markers for Patients with Cardiovascular Disease Project # [id number] PI: Amalia Kingsley MD Please call [phone] with study related questions HTN, goal below [...] as of this encounter (statuses as of 11/11/2019) Immunizations Name Administration Dates Next Due Pneumococcal [...] have Coronavirus / COVID-19? No / Unsure 11/11/2019 9:55 AM EDT documented as of this encounter Last Filed Vital Signs Vital Sign Reading Time Taken Comments Blood Pressure - - Pulse - - Temperature 36.5 C (97.7 F) 11/11/2019 10:12 AM E DT Respiratory Rate - - Oxygen Saturation - - Inhaled Oxygen Concentration - - Weight - - Height - - Body Mass Index - - documented in this encounter Progress Notes * Kim Kong MD - 11/11/2019 10:26 AM EDT SUBJECTIVE: History of Present Illness: Cl Reynolds is a 79 year old male seen today for follow up - skin check (partial, pt always defers gown). No new concerns. 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 HEME/LYMPH: No new or enlarging lumps or bumps. MEDICA TIONS: Current Outpatient Medications Medication Sig Dispense Refill Valsartan 320 MG Tablet Take 1 Tab by mouth daily. 90 Tab 1 finasteride (PROSCAR) 5 MG Tablet Take 1 Tab by mouth daily. 90 Tab 1 MetFORMIN (GLUCOPHAGE) 1000 MG Tablet Take 1 Tab by mouth 2 times a day with morning and evening meals. 180 Tab 1 glipiZIDE XL (GLUCOTROL XL) 10 MG TB24 Take 1 Tab by mouth 2 times a day. 180 Tab 1 amLODIPine (NORVASC) 5 MG Tablet Take 1 Tab by mouth 2 times a day. 180 Tab 1 omeprazole (PRILOSEC) 20 MG CPDR Take 1 Cap by mouth daily. 90 Cap 1 tretinoin (RETIN-A) 0.05 % cream APPLY NIGHTLY TO FACE DIRECTED,CAN MIX WITH PONDS 45 g 5 Terazosin HCl 2 MG Capsule Take 1 Cap by mouth at bedtime. 90 Cap 3 ONETOUCH ULTRA BLUE STRP USE ONE TEST STRIP TO TEST BLOOD SUGAR LEVELS TWICE A DAY 300 Strip 3 ONETOUCH ULTRASOFT LANCETS MISC USE ONE LANCET TO TEST BLOOD SUGAR LEVELS TWICE A DAY 300 Each 3 MULTI-VITAMIN PO TABS one pill each day SB LOW DOSE ASA EC 81 MG PO TBEC Take by mouth. Indications: pm, thursday MAGNESIUM OXIDE 200 MG PO TABS one tablet twice a day 60 Tab 5 GAVI 180 MG PO TABS One pill by mouth once a day for allergies (Patient taking differently: Takeby mouth. Indications: as needed) 30 5 ALLERG IES: Acetaminophen; Aspirin; Cholestyramine; Lipitor [atorvastatin calcium]; Niacin; Simvastatin; and Zetia [ezetimibe] OBJECTIVE: GEN: Healthy, alert, no distress, appears oriented, pleasant and cooperative. SKIN: Detailed exam of hair, face including lids and lips, neck, bilateral upper ext. (arm, hand, fingers) and palpation of scalp completed and are normal except: 1. R lateral brow (2) - keratotic pink papules 2. L neck, L ear - scars ASSESS MENT/PLAN: 1. Actinic keratoses - Cryosurgery explained to the patient, verbal consent obtained, patient, siteand procedure verified, time-out called, and then cryotherapy was performed with Liquid Nitrogen via cryo spray unit to 2 lesions. Location noted in physical exam. Post op course explained. 2. Scars - Hx NMSC - no evidence of recurrence Discussed sun protection with patient including proper use of sunscreens and protective clothing. ABCDs explained. *photodamaged skin, no outlier outlier lesions Follow-up: 6 months There were no barriers tolearning and no other pain was related to today's visit. The patient and/or person accompanying patient demonstrates understanding of the visit and treatment. Kim Kong MD 11/11/2019 10:26 AM documented in this encounter Nursing Notes * Merry Ba LPN - 11/11/2019 10:13 AM EDT Patient identified by name and date of . Do you have any concerns about pain management for today's visit? No Living Will or Advance Directive for Health Care as noted on problem list. [facility] is a way you can talk to your provider online through e-mail. Would you like to sign up? I can activate it for you? ALREADY ACTIVE Chief Complaint Patient presents with Follow Up Patient here for an AK check on his face. He declines a FSE today. He denies new or changing lesions on his face or arms. documented in this encounter Plan of Treatment Upcoming Encounters Date Type Specialty Care Team Description 02/14/2020 Imaging Radiology 03/01/2020 Office Visit Internal Medicine Smith Orozco MD [address] [place] [address] [place] [id number] 04/24/2020 Office Visit Cardiology Alcon Lott PA-C [address] [place] [address] [phone] 06/29/2020 Office Visit Dermatology Kim Kong MD [address] [place] [address] [place] [address] [phone] Scheduled Orders Name Type Priority Associated Diagnoses Orde r Schedule DESTRUCTION PREMALIGNANT LESION 1ST Procedures Routine AK (actinic keratosis) Ordered: 11/11/2019 DESTRUCTION PREMALIGNANT LESION 2-14 EA Procedures Routine AK (actinic keratosis) Ordered: 11/11/2019 Health Maintenance Due Date Last Done Comments *DEPRESSION SCREENING,ANNUAL FOR PTS 12 AND OVER 02/20/2019 DIABETES-EYE EXAM 11/10/2019 11/09/2018, , 10/10/2015, Additional history exists Influenza Vaccine (FLU shot) (#1) 2019 11/22/2018, 11/17/2017, 11/21/2016, Additional history exists DIABETES-FOOT EXAM 01/25/2020 01/24/2019, [...] of this encounter Implants Implanted Type Area Felt Hooker Device Identifier Shelf Expiration Date Model / Serial / Lot Marker Coronary Amgm-Sd - [id number] Implanted:Qty: 1 on 12/26/2010 at OR [facility] [place] N/A: Heart [employer] 10/13/2013 AM[employer]-SD / / [id number] Sut Steel 6 M654g - [id number] Implanted:Qty: 5 on 12/26/2010 at OR [facility] [place] Chest DO NOT USE 10/14/2015 M654G / / [id number] Alonso [place] 225241 - [id number] Implanted:Qty: 1 on 12/26/2010 at OR [facility] [place] Chest [employer] 225-241 / / [id number] Lens Intraoc 17.5 - [id number] - [id number] Implanted:Qty: 1 on 02/07/2019 by Quincy Paiz MD at OR [facility] Right: Eye [employer]OM[employer] 08/14/2023 [id number] / [id number] / [id number] Lens Intraoc 17.0 - [id number] - [id number] Implanted:Qty: 1 on 03/01/2019 by Quincy Paiz MD at OR [facility] Left: Eye BAUSCH & LOMB 09/12/2022 [id number] / [id number] / [id number] documented as of this encounter Visit Diagnoses [...] Documents on File Type Date Recorded Patient Credit Card Control Clerk Expl 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
--- OUTSIDE RECORDS SUMMARY | 2022-11-16 13:17 | External Medical Summary | Summary of Care ---
Author Name Unknown Organization [place] [address] Care Team Providers Care Card Placer Name Role Phone Smith Orozco MD Primary Care Provider + [phone] Reason for Visit * Reason Comments Med Request Encounter Details Date Type Department Care Team Description 09/13/2019 Telephone Internal Medicine [address] [address] Smith Orozco MD [address] [place] [address] [place] [address] [phone] Med Request Allergies Active Allergy Reactions Severity Noted Date Comments Acetaminophen Renal complications 04/27/2009 Aspirin 08/13/2000 Stomach pain Cholestyramine 08/13/2000 Kidney pain Atorvastatin Calcium 04/28/2007 cramping Niacin Muscle pain 07/22/2007 Simvastatin Hives 08/13/2000 Ezetimibe 04/28/2007 Cramping ankles, turned feet inward documented as of this encounter (statuses as of 09/13/2019) Medications Medication Sig Dispensed Refills Start Date [...] Terazosin HCl 2 MG CapsuleIndications:A therosclerosis of [place] coronary artery of [place] heart without angina pectoris,BPH with obstruction/lower urinary [...] Active glipiZIDE XL (GLUCOTROL XL) 10 MG AE08Quzkyvefoxe:Type 2 diabetes mellitus with hemoglobin A1c goal of less than 8.0% (FORMER[facility]) Take 1 Tab by mouth 2 times [...] Active Valsartan 320 MG TabletIndications:At herosclerosis of [place] coronary artery of [place] heart without angina pectoris,Primary hypertension Take 1 Tab by mouth daily. 90 Tab 1 09/01/2019 Active documented as of this encounter (statuses as of 09/13/2019) Active Problems Problem Noted Date Type 2 [...] as of this encounter (statuses as of 09/13/2019) Resolved Problems Problem Noted Date Resolved Date Genomics Cardio Research Other*[id number] 201004/22/2016 Overview: Study Titile: Genomics Markers for Patients with Cardiovascular Disease Project # [id number] PI: Amalia Kingsley MD Please call [phone] with study related questions HTN, goal below [...] as of this encounter (statuses as of 09/13/2019) Immunizations Name Administration Dates Next Due Pneumococcal [...] have Coronavirus / COVID-19? No / Unsure 08/30/2019 8:19 AM EDT documented as of this encounter Miscellaneous Notes * Telephone Encounter - Komal Shearer LPN - 09/13/2019 11:55 AM EDT [facility] get [facility] losartan. Pt aware and will get the valsartan for $18 per 90 day supply. He said he can't go to another pharmacy. [facility] Pt willget valsartan. * Telephone Encounter - Melida Goldstein PHARM Tech - 09/13/2019 11:08 AM EDT Pt calling to request refills for Losartan 50mg. Upon chart review, medication is listed as discontinued, with discontinuation reason as "Formulary / Cost". Please advise if you wish to continue thistherapy for the patient. Patient can be reached at [phone] for any further questions or concerns. Thank you, Melida Goldstein Showroom Sales Assistant [facility] 09/13/2019, 11:08 AM documented in this encounter Plan of Treatment Upcoming Encounters Date Type Specialty Care Team Description 10/13/2019 Office Visit Cardiology Alcon Lott PA-C [address] [facility] [place] [address] [phone] 11/11/2019 Office Visit Dermatology Kim Kong MD [address] [facility] [place] [address] [phone] 02/14/2020 Imaging Radiology 03/01/2020 Office Visit Internal Medicine Smith Orozco MD [address] [place] [address] [place] [address] [phone] Health Maintenance Due Date Last Done Comments [...] Completed 11/2018, 11/17/2017, 11/21/2016, Additional history exists Zoster Vaccines Completed 05/25/2019, 09/2019, 11/15/2011 MENINGOCOCCAL (MENACTRA/MENVEO) Aged Out No longer eligible based on patient's age to complete this topic documented as of this encounter Implants Implanted Type Area Jig Borer Device Identifier Shelf Expiration Date Model / Serial / Lot Marker Coronary [facility] - [id number] Implanted:Qty: 1 on 12/26/[address] [facility] N/A: Heart [employer] 10/13/2013 [facility] / / [id number] Sut Steel 6 M654g - [id number] Implanted:Qty: 5 on 12/26/[address] [facility] Chest DO NOT USE 10/14/2015 M654G / / [id number] Alonso [facility] 225-029 - [id number] Implanted:Qty: 1 on 12/26/[address] [facility] Chest [employer] 225-241 / / [id number] Lens Intraoc 17.5 - [id number] - [id number] Implanted:Qty: 1 on 02/07/2019 by Quincy Paiz MD at OR [facility] Right: Eye [employer]OMB 08/14/2023 [id number] / [id number] / [id number] Lens Intraoc 17.0 - [id number] - [id number] Implanted:Qty: 1 on 03/01/2019 by Quincy Paiz MD at OR [facility] Left: Eye [employer]OMB 09/12/2022 [id number] / [id number] / [id number] documented as of this encounter Advance Directives Documents on File Type Date Recorded Patient Traffic Sign Supervisor Expl 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
--- OUTSIDE RECORDS SUMMARY | 2022-11-16 13:17 | External Medical Summary | Summary of Care ---
Author Name Unknown Organization [place] [address] Care Team Providers Care Talent Development Specialist Name Role Phone Smith Danielle MD Primary Care Provider Reason for Visit * Reason Comments Pt Portal Med Renewal Encounter Details Date Type Department Care Team Description 07/18/2019 Refill Internal Medicine [address] [id number] Pierre Nath MD [address] [place] [address] [place] [id number] PEPTIC ULCER NOS Allergies Active Allergy Reactions Severity Noted Date Comments Acetaminophen Renal complications 04/27/2009 Aspirin 08/13/2000 Stomach pain Cholestyramine 08/13/2000 Kidney pain Atorvastatin Calcium 04/28/2007 cramping Niacin Muscle pain 07/22/2007 Simvastatin Hives 08/13/2000 Ezetimibe 04/28/2007 Cramping ankles, turned feet inward documented as of this encounter (statuses as of 07/18/2019) Medications Medication Sig Dispensed Refills Start Date [...] A DAY 300 Strip 3 08/24/2018 Active amLODIPine (NORVASC) 5 MG Tablet TAKE 1 TABLET BY MOUTH TWICE A DAY 180 Tab 1 02/03/2019 Active glipiZIDE XL (GLUCOTROL XL) 10 MG BT48Wooilplpxwa:Ty pe 2 diabetes mellitus with hemoglobin A1c goal of less than 8.0% (HCC) TAKE 1 TABLET BY MOUTH TWICE A DAY 180 Tab 1 02/05/2019 Active losartan (COZAAR) 50 MG TabletIndications: HTN, goal below 140/80 Take 1 Tab by mouth 2 times a day. 180 Tab 1 03/21/2019 Active finasteride (PROSCAR) 5 MG TabletIndications: BPH with obstruction/lower urinary tract symptoms Take 1 Tab by mouth daily. 90 Tab 1 03/21/2019 Active Terazosin HCl 2 MG CapsuleIndications :Atherosclerosis of [place] coronary artery of the [place] heart without angina pectoris,BPH [...] mouth daily. 90 Cap 1 07/18/2019 Active omeprazole (PRILOSEC) 20 MG CPDRIndications:Pe ptic ulcer Take 1 Cap by mouth daily. 90 Cap 1 01/21/2019 0 Discontinue d(Refill) documented as of this encounter (statuses as of 07/18/2019) Active Problems Problem Noted Date Type 2 [...] to patient at prior appointment. Atherosclerosis of the [place] co ronary artery of the [place] heart without angina pectoris 11/30/2001 GENERAL OSTEOARTHROSIS Multiple pulmonary nodules Complex renal cyst Overview: 3.8 cm; L Old [place] (myocardial infarction) documented as of this encounter (statuses as of 07/18/2019) Resolved Problems Problem Noted Date Resolved Date Genomics Cardio Research Other*[id number] 201004/22/2016 Overview: Study Titile: Genomics Markers for Patients with Cardiovascular Disease Project # [id number] PI: Amalia Kingsley MD Please call [phone] with study related questions HTN, goal below [...] as of this encounter (statuses as of 07/18/2019) Immunizations Name Administration Dates Next Due Pneumococcal [...] file Travel History Travel Start Travel End documented as of this encounter Miscellaneous Notes * Telephone Encounter - Smith Danielle MD - 07/18/2019 10:40 AM EDT Signed Prescriptions: Disp Refills omeprazole (PRILOSEC) 20 MG CPDR 90 Cap 1 Sig: Take 1 Cap by mouth daily. Authorizing Provider: SMITH DANIELLE * Telephone Encounter - Kasey Rosales LPN - 07/18/2019 10:38 AM EDT Pending Prescriptions: Disp Refills omeprazole (PRILOSEC) 20 MG CPDR 90 Cap 1 Sig: Take 1 Cap by mouth daily. Last Office/Telemedicine Visit: 02/01/2019 Next Office Visit: 08/04/2019 Scheduled Provider(s): Smith Danielle MD Last date the medication was ordered: 01/21/19 Patient Active Problem List Diagnosis Code GENERAL OSTEOARTHROSIS M15.9 Atherosclerosis of the [place] coronary artery of the [place] heart without angina pectoris I25.10 ADVANCE DIRECTIVE [...] and hypertension (HCC) E11.22, I12.9, N18.2 Old [place] (myocardial infarction) I25.2 Labs: CREATININE(mg/dL) Lucía Dt/Tm [...] Telephone Encounter - Kasey Rosales LPN - 07/18/2019 10:38 AM EDT Message from [place]: Cl Reynolds would like a refill of the following medications: omeprazole (PRILOSEC) 20 MG CPDR [Pierre Nath MD] Preferred pharmacy: [id number] documented in this encounter Plan of Treatment Upcoming Encounters Date Type Specialty Care Team Description 08/04/2019 Office Visit Internal Medicine Smith Danielle MD [address] [place] [address] [place] [address] [phone] 08/11/2019 Cardiac Studies Cardiac Studies [facility] President Sales And Marketing[address] [place] [address] [phone] 09/29/2019 Office Visit Cardiology Alcon Lott PA-C [address] [place] [address] [phone] 11/11/2019 Office Visit Dermatology Kim Kong MD [address] [place] [address], [place] [address] [phone] 02/14/2020 Imaging Radiology Health Maintenance Due Date [...] of this encounter Implants Implanted Type Area Roll Scale Worker Device Identifier Shelf Expiration Date Model / Serial / Lot Marker Coronary [facility]-Sd - [id number] Implanted:Qty: 1 on 12[place] [facility] [place]A: Heart [employer] 10/13/2013 [facility] / / [id number] Sut Steel 6 M654g - [id number] Implanted:Qty: 5 on 12/26/2010 [place] [facility] Chest DO NOT USE 10/14/2015 M654G / / [id number] [facility] 225-241 - [id number] Implanted:Qty: 1 on 12/26/2010 [place] [facility] Chest [employer] 225-241 / / [id number] Lens Intraoc 17.5 - [id number] - [id number] Implanted:Qty: 1 on 02/07/2019 by Quincy Paiz MD at OR [facility] Right: Eye [employer]OM[employer] 08/14/2023 [id number] / [id number] / [id number] Lens Intraoc 17.0 - [id number] - [id number] Implanted:Qty: 1 on 03/01/2019 by Quincy Paiz MD at OR [facility] Left: Eye [employer]OMB 09/12/2022 [id number] / [id number] / [id number] documented as of this encounter Visit Diagnoses Diagnosis PEPTIC ULCER NOS Peptic ulcer, unspecified site, unspecified as acute or chronic, without mention of hemorrhage, perforation, or obstruction documented in this encounter Advance Directives Documents on File Type Date Recorded Patient City Magistrate Expl 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
--- OUTSIDE RECORDS SUMMARY | 2022-11-16 13:17 | External Medical Summary | Summary of Care ---
Author Name Unknown Organization [place] [address] Care Team Providers Care Senior Communications Specialist Name Role Phone Smith Orozco MD Primary Care Provider [phone] Reason for Visit * Reason Comments Re-Check Encounter Details Date Type Department Care Team Description 08/30/2019 Office Visit Internal Medicine [address] [address] Smith Orozco MD [address] [place] [address] [place] [address] [phone] Type 2 diabetes mellitus with hemoglobin A1c goal of less than 8.0% ([facility])*; Type 2 diabetes mellitus with stage 2 chronic kidney disease, without long-term current use of insulin (HCC); BPH with obstruction/lower urinary tract symptoms; HTN, goal below 140/80; Type 2 diabetes mellitus with diabetic nephropathy ([facility]); Atherosclerosis of s[place] tribe coronary artery of [place] heart without angina pectoris; [place] (myocardial infarction); Primary hypertension; 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); Encounter for long-term (current) use of other medications Allergies Active Allergy Reactions Severity Noted Date Comments Acetaminophen Renal complications 04/27/2009 Aspirin 08/13/2000 Stomach pain Cholestyramine 08/13/2000 Kidney pain Atorvastatin Calcium 04/28/2007 cramping Niacin Muscle pain 07/22/2007 Simvastatin Hives 08/13/2000 Ezetimibe 04/28/2007 Cramping ankles, turned feet inward documented as of this encounter (statuses as of 08/30/2019) Medications Medication Sig Dispensed Refills Start Date [...] less than 8.0% ([facility]) USE ONE LANCET TO TEST BLOOD SUGAR LEVELS TWICE A DAY 300 Each 3 08/24/2018 Active ONETOUCH ULTRA BLUE STRPIndications:Ty pe 2 diabetes mellitus with hemoglobin A1c goal of less than 8.0% ([facility]) USE ONE TEST STRIP TO TEST BLOOD SUGAR LEVELS TWICE A DAY 300 Strip 3 08/24/2018 Active Terazosin HCl 2 MG CapsuleIndications :Atherosclerosis of [place] coronary artery of [place] tribe heart without angina pectoris,BPH with obstruction/lower urinary tract symptoms,Essential hypertension with goal blood pressure less than 140/90 Take 1 Cap by mouth at bedtime. 90 Cap 3 03/21/2019 Active tretinoin (RETIN-A) 0.05 % creamIndications:A ctinic keratosis APPLY NIGHTLY TO FACE DIRECTED,CAN MIX WITH PONDS 45 g 5 03/28/2019 Active omeprazole (PRILOSEC) 20 MG CPDRIndications:Pe ptic ulcer Take 1 Cap by mouth daily. 90 Cap 1 07/18/2019 Active amLODIPine (NORVASC) 5 MG TabletIndications: Essential hypertension with goal blood pressure less than 140/90,Old [place] (myocardial infarction) Take 1 Tab by mouth 2 times a day. 180 Tab 1 07/29/2019 Active glipiZIDE XL (GLUCOTROL XL) 10 MG [id number]:Ty pe 2 diabetes mellitus with hemoglobin A1c goal of less than 8.0% ([facility]) Take 1 Tab by mouth 2 times a day. 180 Tab 1 08/15/2019 Active finasteride (PROSCAR) 5 MG TabletIndications: BPH with obstruction/lower urinary tract symptoms Take 1 Tab by mouth daily. 90 Tab 1 08/30/2019 Active losartan (COZAAR) 50 MG TabletIndications: Primary hypertension Take 1 Tab by mouth 2 times a day. 180 Tab 1 08/30/2019 Active MetFORMIN (GLUCOPHAGE) 1000 MG TabletIndications: Type 2 diabetes mellitus with diabetic nephropathy (HCC),Type 2 diabetes mellitus with hemoglobin A1c goal of less than 8.0% (HCC) Take 1 Tab by mouth 2 times a day with morning and evening meals. 180 Tab 1 08/30/2019 Active losartan (COZAAR) 50 MG TabletIndications: HTN, goal below 140/80 Take 1 Tab by mouth 2 times a day. 180 Tab 1 03/21/2019 0 Discontinue d(Refill) finasteride (PROSCAR) 5 MG TabletIndications: BPH with obstruction/lower urinary tract symptoms Take 1 Tab by mouth daily. 90 Tab 1 03/21/2019 0 Discontinue d(Refill) MetFORMIN (GLUCOPHAGE) 1000 MG TabletIndications: Type 2 diabetes mellitus with diabetic nephropathy (HCC),Type 2 diabetes mellitus with hemoglobin A1c goal of less than 8.0% (HCC) TAKE 1 TABLET BY MOUTH TWICE A DAY WITH MEALS 180 Tab 1 04/19/2019 0 Discontinue d(Refill) documented as of this encounter (statuses as of 08/30/2019) Active Problems Problem Noted Date Type 2 [...] to patient at prior appointment. Atherosclerosis of s[place] tribe co ronary artery of s[place] tribe heart without angina pectoris 11/30/2001 GENERAL OSTEOARTHROSIS Multiple pulmonary nodules Complex renal cyst Overview: 3.8 cm; L [place] (myocardial infarction) documented as of this encounter (statuses as of 08/30/2019) Resolved Problems Problem Noted Date Resolved Date [employer] Other*[id number] 201004/22/2016 Overview: Study Titile: Genomics Markers for Patients with Cardiovascular Disease Project # [id number] PI: Baljidner Hung MD Please call [phone] with study related questions HTN, goal below [...] as of this encounter (statuses as of 08/30/2019) Immunizations Name Administration Dates Next Due Pneumococcal [...] Sign Reading Time Taken Comments Blood Pressure 132/72 08/30/2019 8:25 AM EDT Pulse 72 08/30/2019 8:25 AM EDT Temperature 35.7 C (96.3 F) 08/30/2019 8:25 AM ED T Respiratory Rate 16 08/30/2019 8:25 AM EDT Oxygen Saturation - - Inhaled Oxygen Concentration - - Weight 64.9 kg (143 lb) 08/30/2019 8:25 AM EDT Height - - Body Mass Index 24.55 03/01/2019 6:34 AM EST documented in this encounter Progress Notes * Smith Orozco MD - 08/30/2019 8:27 AM EDT No complaints of headache, trouble with vision or hearing. Eating well, with no bowel or bladder complaints. Denies chest pain or palpitations. He sees cardiology and they do not have him on a beta layne. He can't tolerate statins. Denies shortness of breath, PND, or orthopnea. Feet not swelling. Sleeping well. No skin rashes or breakdown. No changes in mentation. The rest of a 10 point review of systems is negative. Health Maintenance addressed. Had his shots Past Medical History: Diagnosis Date Acute [place], inferior wall, subsequent episode of care ([facility]) 1994 BPH with obstruction/lower urinary tract symptoms 11/01/2009 CKD (chronic kidney disease) stage 2, GFR 60-89 ml/min Coronary atherosclerosis of siletz tribe coronary artery 11/30/2001 DM type 2, goal A1c below 7 Elevated PSA 09/30/2017 PSA 7.15 Examination of eyes and vision 09/20/13 no diabetic or hypertensive retinopathy Generalized osteoarthritis HTN, goal below 140/90 Mixed dyslipidemia Multiple pulmonary nodules 03/20/13 [place] (myocardial infarction) 1994 Peptic ulcer Renal mass, left 2014 3.8 cm Type 2 diabetes mellitus with hemoglobin A1c goal of less than 8.0% ([facility]) 01/11/2009 Per Diabetes Taxonomy. ICD-10 update of inactive term Past Surgical History: Procedure Laterality Date CABG, ARTERIAL, SINGLE 12/26/2010 CORONARY ARTERY BYPASS GRAFT USING ARTERY 1 GRAFT performed by BERTHA SENIOR at OR [facility] CABG, ARTERY-VEIN, THREE 12/26/2010 CORONARY ARTERY BYPASS GRAFT ARTERIAL AND VENOUS 3 GRAFTS performed by BERTHA SENIOR at OR [facility] CORONARY ANGIOGRAPHY W/LEFT HEART CATH 12/03/2010 CORONARY ANGIOGRAPHY W/LEFT HEART CATH performed by BALJINDER HUNG at CARDIAC LABS [facility] CT CHEST W CONTRAST 07/11/13 non calcified [...] VEIN performed by BERTHA SENIOR at OR [facility] INFORMATION 1994 cardiac cath REMOVE CATARACT, INSERT LENS PROSTH Right 02/07/2019 right EXTRACAPSULAR CATARACT REMOVAL WITH INTRAOCULAR LENS performed by Quincy Paiz MD at OR [facility] REMOVE CATARACT, INSERT LENS PROSTH Left 03/01/2019 left EXTRACAPSULAR CATARACT REMOVAL WITH INTRAOCULAR LENS performed by Quincy Paiz MD at OR [facility] REPAIR INITIAL INGUINAL HERNIA REDUCIBLE AGE 5 [...] Financial resource strain: Not on file Food insecurity: Worry: Not on file Inability: Not on file Transportation needs: Medical: Not on file Non-medical: Not on file Tobacco Use Smoking status: Former Smoker Years: 0.00 Smokeless tobacco: Never Used Tobacco comment: quit in 1971 Substance and Sexual Activity Alcohol use: Yes Comment: rarely Drug use: No Sexual activity: Not on file Lifestyle Physical activity: Days per week: Not on file Minutes per session: Not on file Stress: Not on file Relationships Social connections: Talks on phone: Not on file Gets together: Not on file Attends jewish service: Not on file Active member of club or organization: Not on file Attends meetings of clubs or organizations: Not on file Relationship status: Not on file Intimate partner violence: Fear of current or ex partner: Not on file Emotionally abused: Not on file Physically abused: Not on file Forced sexual activity: Not on file Other Topics Concern Not on file Social History Narrative [employer] 2 years Vaping/E-Cigarette Use Vaping/E-Cigarette Substances Vaping/E-Cigarette Devices Current Outpatient Medications Medication Sig Dispense Refill finasteride (PROSCAR) 5 MG Tablet Take 1 Tab by mouth daily. 90 Tab 1 losartan (COZAAR) 50 MG Tablet Take 1 Tab by mouth 2 times a day. 180 Tab 1 MetFORMIN (GLUCOPHAGE) 1000 MG Tablet [...] by mouth. Indications: as needed) 30 5 HEMOGLOBIN, A1C(%) Lucía Dt/Tm Resulted Value Status 03/31/19 8:26A 03/31/19 7.3* FINAL 08/19/18 8:36A 08/19/18 6.9* FINAL 02/18/18 11:12A 02/18/18 7.1* FINAL LIPID PANEL WITH DIRECT LDL IF TG [...] 08/19/18 8:36A 08/19/18 F Value: NOT APPLICABLE O: Blood pressure 132/72, pulse 72, temperature 35.7 C (96.3 F), temperature source Tympanic, resp. rate 16, weight 64.9 kg (143 lb). General appearance: well developed, well nourished and in no acute distress. Head normocephalic andatraumatic. No facial asymmetry. Eye exam; PEERLA, EOMI. No scleral icterus or nystagmus. Conjunctiva are pink and not injected. TMs and canals normal. No wax. Trachea is in the midline. Neck supple [...] pedal edema. No skin rashes. Extremities unremarkable. . A: Type 2 diabetes mellitus with hemoglobin A1c goal of less than 8.0% ([facility]) (Primary) - MetFORMIN (GLUCOPHAGE) 1000 MG Tablet; Take 1 Tab by mouth 2 times a day with morning and eveningmeals. - HEMOGLOBIN A1C; Future; Expected date: 08/30/2019 - HEMOGLOBIN A1C Type 2 diabetes mellitus with stage 2 chronic kidney disease, without long-term current use of insulin (HCC) - HEMOGLOBIN A1C; Future; Expected date: 08/30/2019 - HEMOGLOBIN A1C BPH with obstruction/lower urinary tract symptoms - finasteride (PROSCAR) 5 MG Tablet; Take 1 Tab by mouth daily. HTN, goal below 140/80 Type 2 diabetes mellitus with diabetic nephropathy (HCC) - MetFORMIN (GLUCOPHAGE) 1000 MG Tablet; Take 1 Tab by mouth 2 times a day with morning and eveningmeals. - HEMOGLOBIN A1C; Future; Expected date: 08/30/2019 - HEMOGLOBIN A1C Atherosclerosis of s[place]tz tribe coronary artery of siletz tribe heart without angina pectoris [place] (myocardial infarction) Primary hypertension - losartan (COZAAR) 50 MG Tablet; Take 1 Tab by mouth 2 times a day. - BASIC METAB PANEL, BMP; Future; Expected date: 08/30/2019 - BASIC METAB PANEL, BMP 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) - BASIC METAB PANEL, BMP; Future; Expected date: 08/30/2019 - HEMOGLOBIN A1C; Future; Expected date: 08/30/2019 - HEMOGLOBIN A1C - BASIC METAB PANEL, BMP Encounter for long-term (current) use of other medications - VITAMIN B12; Future; Expected date: 08/30/2019 - VITAMIN B12 Follow Up: Return in about 6 months (around 02/29/2020). Continue other meds as before. documented in this encounter Nursing Notes * Komal Shearer LPN - 08/30/2019 8:23 AM EDT 6 month recheck Doing well. documented in this encounter Plan of Treatment Upcoming Encounters Date Type Specialty Care Team Description 09/29/2019 Office Visit Cardiology [facility]con Lott [facility]C [address] [address] [phone] 11/11/2019 Office Visit Dermatology Kim Kong MD [address] [place] [address] [phone] 02/14/2020 Imaging Radiology Pending Results Name Type Priority Associated Diagnoses Date /Time VITAMIN B12 Lab Routine Encounter for long-term (current) use of other medications 08/30/2019 8:34 AM EDT BASIC METAB PANEL, BMP Lab Routine Primary hypertension 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) 08/30/2019 8:34 AM EDT HEMOGLOBIN A1C Lab Routine Type 2 diabetes mellitus with stage 2 chronic kidney disease, without long-term current use of insulin (HCC) Type 2 diabetes mellitus with diabetic nephropathy (HCC) Type 2 diabetes mellitus with hemoglobin A1c goal of less than 8.0% (HCC) 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) 08/30/2019 8:34 AM EDT Scheduled Orders Name Type Priority Associated Diagnoses Orde r Schedule VITAMIN B12 Lab Routine Encounter for long-term (current) use of other medications Expected: 08/30/2019 (Approximate), Expires: 08/29/2020 BASIC METAB PANEL, BMP Lab Routine Primary hypertension 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) Expected: 08/30/2019 (Approximate), Expires: 08/29/2020 HEMOGLOBIN A1C Lab Routine Type 2 diabetes mellitus with stage 2 chronic kidney disease, without long-term current use of insulin (HCC) Type 2 diabetes mellitus with diabetic nephropathy (HCC) Type 2 diabetes mellitus with hemoglobin A1c goal of less than 8.0% (HCC) 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) Expected: 08/30/2019 (Approximate), Expires: 08/29/2020 Health Maintenance Due Date Last Done Comments [...] of this encounter Implants Implanted Type Area Geologic Technician Device Identifier Shelf Expiration Date Model / Serial / Lot Marker Coronary [facility] - [id number] Implanted:Qty: 1 on 12/26/2010 at OR [facility] N/A: Heart [employer] 10/13/2013 [facility] / / [id number] Sut Steel 6 M654g - [id number] Implanted:Qty: 5 on 12/26/2010 at OR [facility] Chest DO NOT USE 10/14/2015 M654G / / [id number] Band Ankur 225-533 - [id number] Implanted:Qty: 1 on 12/26/2010 at OR [facility] Chest [employer] 225-241 / / [id number] Lens Intraoc 17.5 - [id number] - [id number] Implanted:Qty: 1 on 02/07/2019 by Quicny Paiz MD at OR [facility] Right: Eye [employer] 08/14/2023 [id number] / [id number] / [id number] Lens Intraoc 17.0 - [id number] - [id number] Implanted:Qty: 1 on 03/01/2019 by Quincy Paiz MD at OR [facility] Left: Eye [employer] 09/12/2022 [id number] / [id number] / [id number] documented as of this encounter Visit Diagnoses Diagnosis Type 2 diabetes mellitus with hemoglobin A1c goal of less than 8.0% ([facility])- Primary Type 2 diabetes mellitus with stage 2 chronic kidney disease, without long-term current use of insulin ([facility]) BPH with obstruction/lower urinary tract symptoms Hypertrophy of prostate with urinary obstruction and other lower urinary tract symptoms (LUTS) HTN, goal below 140/80 Unspecified essential hypertension Type 2 diabetes mellitus with diabetic nephropathy (HCC) Type II or unspecified type diabetes mellitus with renal manifestations, not stated as uncontrolled Atherosclerosis of siletz tribe coronary artery of sile[place] tribe heart without angina pectoris Old [place] (myocardial infarction) Old myocardial infarction Primary hypertension Unspecified essential hypertension 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
--- OUTSIDE RECORDS SUMMARY | 2022-11-16 13:17 | External Medical Summary | Summary of Care ---
Author Name Unknown Organization [place] [address] Care Team Providers Care Rn Palliative Name Role Phone Smith Orozco MD Primary Care Provider Reason for Visit * Reason Comments Medication Question Encounter Details Date Type Department Care Team Description 09/13/2019 Telephone Internal Medicine [address] [address] Smith Orozco MD [address] [place] [address] [place] [address] [phone] Medication Question Allergies Active Allergy Reactions Severity Noted Date [...] Terazosin HCl 2 MG CapsuleIndications:A therosclerosis of [place] coronary artery of [place] heart without angina pectoris,BPH with obstruction/lower urinary [...] Active glipiZIDE XL (GLUCOTROL XL) 10 MG [id number]:Type 2 diabetes mellitus with hemoglobin A1c goal of less than 8.0% ([facility]) Take 1 Tab by mouth 2 times [...] Active Valsartan 320 MG TabletIndications:At herosclerosis of [place] coronary artery of [place] heart without angina pectoris,Primary hypertension Take 1 [...] to patient at prior appointment. Atherosclerosis of [place] co ronary artery of [place] heart without angina pectoris 11/30/2001 GENERAL OSTEOARTHROSIS Multiple pulmonary nodules Complex renal cyst Overview: 3.8 cm; L [place] (myocardial infarction) documented as of this encounter (statuses as of 09/13/2019) Resolved Problems Problem Noted Date Resolved Date [employer] Cardio Research Other*[id number] 201004/22/2016 Overview: Study Titile: Genomics Markers for Patients with Cardiovascular Disease Project # [id number] PI: Amalia Kingsley MD Please call [phone] with study related questions HTN, goal below [...] Encounter - Komal Shearer LPN - 09/13/2019 11:56 AM EDT Spoke to pt. Losartan is on back order. Pt aware. valsasartan is at pharmacy. * Telephone Encounter - Melida Goldstein PHARM Tech - 09/13/2019 11:11 AM EDT Pt calling stating he was trying to fill a medication online and he notice a medication he never took or been on before in his medication list, which is Valsartan 320mg, pt wants to make sure that, that medication is supposed to be on his medication list, because he states doctor never told him about going on something else, please advise pt with this answer at [phone]. Thank you, Melida Goldstein Card Puncher [employer] 09/13/2019, 11:13 AM documented in this encounter Plan of Treatment Upcoming Encounters Date Type Specialty Care Team Description 10/13/2019 Office Visit [facility]iology [facility] [address] [facility] [address] [phone] 11/11/2019 Office Visit Dermatology [facility] [address] [facility] [address] [phone] 02/14/2020 Imaging Radiology 03/01/2020 Office Visit Internal Medicine Smith Orozco MD [address] [place] [address] [place] [id number] Health Maintenance Due Date Last Done Comments [...] this encounter Implants Implanted Type Area Senior Adults Director Device Identifier Shelf Expiration Date Model / Serial / Lot Marker Coronary [facility] - [id number] [place]planted:Q[place] 1 [place] [facility] [place]A: Heart [employer] 10/13/2013 [facility] / / [id number] Sut Steel 6 M654g - [id number] Implanted:Qty: 5 on 12/26/2010 [place] [facility] Chest DO NOT USE 10/14/2015 M654G / / [id number] Alonso [facility] 225-241 - [id number] Implanted:Qty: 1 on 12/26/2010 at [place] [facility] Chest [employer] 225-241 / / [id number] Lens Intraoc 17.5 - [id number] - [id number] Implanted:Qty: 1 on 02/07/2019 by Quincy Paiz MD at OR [facility] Right: Eye [employer] 08/14/2023 [id number] / [id number] / [id number] Lens Intraoc 17.0 - [id number] - [id number] Implanted:Qty: 1 on 03/01/2019 by Quincy Paiz MD at OR [facility] Left: Eye [employer] 09/12/2022 [id number] / [id number] / [id number] documented as of this encounter Advance Directives Documents on File Type Date Recorded Patient Vp Packaging Expl 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
--- OUTSIDE RECORDS SUMMARY | 2022-11-16 13:17 | External Medical Summary | Summary of Care ---
Author Name Unknown Organization [place] [address] Care Team Providers Care Multi Slide Machine Tender Name Role Phone Smith Danielle MD Primary Care Provider [phone] Reason for Visit * Reason Comments eRx-Medication Refill Encounter Details Date Type Department Care Team Description 11/11/2019 Refill Internal Medicine [address] [address] Smith Danielle MD [address] [place] [address] [place] [address] [phone] Type 2 diabetes mellitus with hemoglobin A1c goal of less than 8.0% ([facility]) Allergies Active Allergy Reactions Severity Noted Date [...] 8:51 AM MAGNESIUM OXIDE 200 MG PO TABSIndications:C ramp in limb one tablet twice a day 60 Tab 5 07/16/2010 Active SB LOW DOSE ASA EC 81 MG PO TBECIndications:p thursday, thursday Take by mouth. Indications: pmond, thursday 0 Active MULTI-VITAMIN PO TABS one pill each day 0 Active ONETOUCH ULTRASOFT LANCETS MISCIndications:T ype 2 diabetes mellitus with hemoglobin A1c goal of less than 8.0% (HCC) USE ONE LANCET TO TEST BLOOD SUGAR LEVELS TWICE A DAY 300 Each 3 08/24/2018 Active Terazosin HCl 2 MG CapsuleIndication s:Atherosclerosis of [place] coronary artery of [place] heart without angina pectoris,BPH with obstruction/lower urinary tract symptoms,Essentia l hypertension with goal blood pressure less than 140/90 Take 1 Cap by mouth at bedtime. 90 Cap 3 03/21/2019 Active tretinoin (RETIN-A) 0.05 % creamIndications: Actinic keratosis APPLY NIGHTLY TO FACE DIRECTED,CAN MIX WITH PONDS 45 g 5 03/28/2019 Active omeprazole (PRILOSEC) 20 MG CPDRIndications:P eptic ulcer Take 1 Cap by mouth daily. 90 Cap 1 07/18/2019 Active amLODIPine (NORVASC) 5 MG TabletIndications :Essential hypertension with goal blood pressure less than 140/90,Old [place] (myocardial infarction) Take 1 Tab by mouth 2 times a day. 180 Tab 1 07/29/2019 Active glipiZIDE XL (GLUCOTROL XL) 10 MG [id number]:T ype 2 diabetes mellitus with hemoglobin A1c [...] Active Valsartan 320 MG TabletIndications :Atherosclerosis of [place] coronary artery of [place] heart without angina pectoris,Primary hypertension Take 1 Tab by mouth daily. 90 Tab 1 09/01/2019 Active ONETOUCH ULTRA STRPIndications:T ype 2 diabetes mellitus with hemoglobin A1c goal of less than 8.0% (HCC) USE ONE TEST STRIP TO TEST BLOOD SUGAR LEVELS TWICE A DAY 200 Strip 5 11/11/2019 Active ONETOUCH ULTRA BLUE STRPIndications:T ype 2 diabetes mellitus with hemoglobin A1c goal of less than 8.0% (HCC) USE ONE TEST STRIP TO TEST BLOOD SUGAR LEVELS TWICE A DAY 300 Strip 3 08/24/2018 0 Discontinued documented as of this encounter [...] to patient at prior appointment. Atherosclerosis of [place] co ronary artery of [place] heart without angina pectoris 11/30/2001 GENERAL OSTEOARTHROSIS Multiple pulmonary nodules Complex renal cyst Overview: 3.8 cm; L Old [place] (myocardial infarction) documented as of this encounter (statuses as of 11/11/2019) Resolved Problems Problem Noted Date Resolved Date Gen[employer] Cardio Research Other*[id number] 201004/22/2016 Overview: Study Titile: Genomics Markers for Patients with Cardiovascular Disease Project # [id number] PI: Amalia Kingsley MD Please call [phone] with study related questions HTN, goal below [...] encounter Miscellaneous Notes * Telephone Encounter - Taylor Yu RPh - 11/11/2019 2:23 PM EDT Signed Prescriptions: Disp Refills ONETOUCH ULTRA STRP 200 St*5 Sig: USE ONE TEST STRIP TO TEST BLOOD SUGAR LEVELS TWICE A DAYAuthorizing Provider: SMITH DANIELLE User: TAYLOR YU------ documented in this encounter Plan of Treatment Upcoming Encounters Date Type Specialty Care Team Description 02/14/2020 Imaging Radiology 03/01/2020 Office Visit Internal Medicine Smith Danielle MD [address] [place] [address] [place] [address] [phone] 04/24/2020 Office Visit Cardiology Alcon Lott PA-C [address] [facility] [place] [address] [phone] 06/29/2020 Office Visit Dermatology Kim Kong MD [address] [place], [place] [address] [address] [phone] Health Maintenance Due Date Last Done Comments [...] of this encounter Implants Implanted Type Area Examiner Of Currency Device Identifier Shelf Expiration Date Model / Serial / Lot Marker Coronary [facility] - [id number] Implanted:Qty: 1 on 12/26/2010 at OR [place] N/A: Heart [employer] 10/13/2013 [facility] / / [id number] Sut Steel 6 M654g - [id number] Implanted:Qty: 5 on 12/26/2010 at OR [place] Chest DO NOT USE 10/14/2015 M654G / / [id number] Alonso Pascual 225-598 - [id number] Implanted:Qty: 1 on 12/26/2010 at OR [place] Chest [employer] 225-241 / / [id number] Lens Intraoc 17.5 - [id number] - [id number] Implanted:Qty: 1 on 02/07/2019 by Quincy Paiz MD at OR [facility] Right: Eye BAUSCH [employer] LOMB 08/14/2023 [id number] / [id number] / [id number] Lens Intraoc 17.0 - [id number] - [id number] Implanted:Qty: 1 on 03/01/2019 by Quincy Paiz MD at OR [facility] Left: Eye BAUSCH & LOMB 09/12/2022 [id number] / [id number] / [id number] documented as of this encounter Visit Diagnoses Diagnosis Type 2 diabetes mellitus with hemoglobin A1c goal of less than 8.0% (HCC) documented in this encounter Advance Directives Documents on File Type Date Recorded Patient Leaf Conditioner Helper Expl 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
--- OUTSIDE RECORDS SUMMARY | 2022-11-16 13:17 | External Medical Summary ---
Author Name Unknown Address [address] [facility]22 Phone Organization K01:[facility] [address] [place] [id number] Laboratory Report Ordering Provider Test Date Status LOLIS BRADFORD 08/30/2019 08:34:00 Final Observation Date Value Abnormality Reference (Units ) Status BUN 08/30/2019 15:04 24 Above high normal 6-20 (mg/dL) Final Creatinine 08/30/2019 15:04 1.0 0.6-1.2 (mg/ dL) Final E Glom Filt Rate 08/30/2019 15:04 >60.0 >60 Final Performing Location [facility] [address] [facility] [address]
--- OUTSIDE RECORDS SUMMARY | 2022-11-16 13:17 | External Medical Summary | Summary of Care ---
Author Name Unknown Organization [place] [address] Care Team Providers Care Handcrew Foreman Name Role Phone Smith Danielle MD Primary Care Provider [phone] Reason for Visit * Reason Comments Appointment Encounter Details Date Type Department Care Team Description 08/02/2019 Telephone Internal Medicine [address] [address] Smith Danielle MD [address] [place] [address] [place] [address] [phone] Appointment Allergies Active Allergy Reactions Severity Noted Date Comments Acetaminophen Renal complications 04/27/2009 Aspirin 08/13/2000 Stomach pain Cholestyramine 08/13/2000 Kidney pain Atorvastatin Calcium 04/28/2007 cramping Niacin Muscle pain 07/22/2007 Simvastatin Hives 08/13/2000 Ezetimibe 04/28/2007 Cramping ankles, turned feet inward documented as of this encounter (statuses as of 08/02/2019) Medications Medication Sig Dispensed Refills Start Date [...] of less than 8.0% ([facility]) USE ONE LANCET TO TEST BLOOD SUGAR LEVELS TWICE A DAY 300 Each 3 08/24/2018 Active ONETOUCH ULTRA BLUE STRPIndications:Type 2 diabetes mellitus with hemoglobin A1c goal of less than 8.0% (HCC) USE ONE TEST STRIP TO TEST BLOOD SUGAR LEVELS TWICE A DAY 300 Strip 3 08/24/2018 Active glipiZIDE XL (GLUCOTROL XL) 10 MG [id number]:Type 2 diabetes mellitus with hemoglobin A1c goal of less than 8.0% (HCC) TAKE 1 TABLET BY MOUTH TWICE A DAY 180 Tab 1 02/05/2019 Active losartan (COZAAR) 50 MG TabletIndications:HT N, goal below 140/80 Take 1 Tab by mouth 2 times a day. 180 Tab 1 03/21/2019 Active finasteride (PROSCAR) 5 MG TabletIndications:BP H with obstruction/lower urinary tract symptoms Take 1 Tab by mouth daily. 90 Tab 1 03/21/2019 Active Terazosin HCl 2 MG CapsuleIndications:A therosclerosis of [place] coronary artery of [place] heart without angina pectoris,BPH with obstruction/lower urinary tract symptoms,Essential hypertension with goal blood pressure less than 140/90 Take 1 Cap by mouth at bedtime. 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 90 Cap 1 07/18/2019 Active amLODIPine (NORVASC) 5 MG TabletIndications:Es sential hypertension with goal blood pressure less than 140/90,Old [place] (myocardial infarction) Take 1 Tab by mouth 2 times a day. 180 Tab 1 07/29/2019 Active documented as of this encounter (statuses as of 08/02/2019) Active Problems Problem Noted Date Type 2 [...] to patient at prior appointment. Atherosclerosis of [place] co ronary artery of [place] heart without angina pectoris 11/30/2001 GENERAL OSTEOARTHROSIS Multiple pulmonary nodules Complex renal cyst Overview: 3.8 cm; L [place] (myocardial infarction) documented as of this encounter (statuses as of 08/02/2019) Resolved Problems Problem Noted Date Resolved Date Genomics Cardio Research Other*[id number] 201004/22/2016 Overview: Study Titile: Genomics Markers for Patients with Cardiovascular Disease Project # [id number] PI: Amalia Kingsley MD Please call [phone] with study related questions HTN, goal below [...] as of this encounter (statuses as of 08/02/2019) Immunizations Name Administration Dates Next Due Pneumococcal [...] encounter Miscellaneous Notes * Telephone Encounter - Cassie Stover OSA - 08/02/2019 10:40 AM EDT Called and left message on HIPAA compliant voicemail for patient changing their appointment to at [address] DANIELLE at [place]. documented in this encounter Plan of Treatment Upcoming Encounters Date Type Specialty Care Team Description 08/11/2019 Cardiac Studies Cardiac Studies [place], Director Of Medical Review [address] [place] [address] [phone] 08/30/2019 Office Visit Internal Medicine Smith Danielle MD [address] [place] [address] [place] [address] [phone] 09/29/2019 Office Visit Cardiology Alcon Lott PA-C 132 [facility] [place] [address] [phone] 11/11/2019 Office Visit Dermatology Kim Kong [facility] [address] [facility] [address] [phone] 02/14/2020 Imaging Radiology Health Maintenance Due Date [...] of this encounter Implants Implanted Type Area Armor Reconnaissance Vehicle Crewman Device Identifier Shelf Expiration Date Model / Serial / Lot Marker Coronary [facility] - [id number] Implanted:Qty: 1 on 12/26/2010 at OR [facility] N/A: Heart [employer] 10/13/2013 [facility] / / [id number] Sut Steel 6 M654g - [id number] Implanted:Qty: 5 on 12/26/2010 at OR [facility] Chest DO NOT USE 10/14/2015 M654G / / [id number] Band Ankur 225-241 - [id number] Implanted:Qty: 1 on 12/26/2010 at OR [facility] Chest [employer] 225-241 / / [id number] Lens Intraoc 17.5 - [id number] - [id number] Implanted:Qty: 1 on 02/07/2019 by Quincy Paiz MD at [place] [facility] Right: Eye BAUSCH & LOMB 08/14/2023 [id number] / [id number] / [id number] Lens Intraoc 17.0 - [id number] - [id number] Implanted:Qty: 1 on 03/01/2019 by Quincy Paiz MD at OR [facility] Left: Eye BAUSCH & LOMB 09/12/2022 [id number] / [id number] / [id number] documented as of this encounter Advance Directives Documents on File Type Date Recorded Patient Student Liaison Officer Expl 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
--- OUTSIDE RECORDS SUMMARY | 2022-11-16 13:17 | External Medical Summary | Summary of Care ---
Author Name Unknown Organization [place] [address] Care Team Providers Care Tetryl Blender Operator Name Role Phone Smith Orozco MD Primary Care Provider [phone] Reason for Visit * Reason Comments Pt Portal Med Renewal Encounter Details Date Type Department Care Team Description 07/29/2019 Refill Cardiology [address] [address] Karly Adler PA-Adelfo [address] [facility] [place] [address] [phone] Essential hypertension with goal blood pressure less than 140/90*; Old [place] (myocardial infarction) Allergies Active Allergy Reactions Severity Noted Date Comments Acetaminophen Renal complications 04/27/2009 Aspirin 08/13/2000 Stomach pain Cholestyramine 08/13/2000 Kidney pain Atorvastatin Calcium 04/28/2007 cramping Niacin Muscle pain 07/22/2007 Simvastatin Hives 08/13/2000 Ezetimibe 04/28/2007 Cramping ankles, turned feet inward documented as of this encounter (statuses as of 07/29/2019) Medications Medication Sig Dispensed Refills Start Date [...] Active glipiZIDE XL (GLUCOTROL XL) 10 MG [id number]:Ty pe 2 diabetes mellitus with hemoglobin A1c [...] Terazosin HCl 2 MG CapsuleIndications :Atherosclerosis of [place] coronary artery of [place] heart without angina pectoris,BPH with obstruction/lower urinary [...] a day. 180 Tab 1 07/29/2019 Active amLODIPine (NORVASC) 5 MG Tablet TAKE 1 TABLET BY MOUTH TWICE A DAY 180 Tab 1 02/03/2019 0 Discontinue d(Refill) documented as of this encounter (statuses as of 07/29/2019) Active Problems Problem Noted Date Type 2 [...] to patient at prior appointment. Atherosclerosis of [place] co ronary artery of [place] heart without angina pectoris 11/30/2001 GENERAL OSTEOARTHROSIS Multiple pulmonary nodules Complex renal cyst Overview: 3.8 cm; L [place] (myocardial infarction) documented as of this encounter (statuses as of 07/29/2019) Resolved Problems Problem Noted Date Resolved Date Genomics Cardio Research Other*[id number] 201004/22/2016 Overview: Study Titile: Genomics Markers for Patients with Cardiovascular Disease Project # [id number] PI: Amalia Kingsley MD Please call [phone] with study related questions HTN, goal below [...] as of this encounter (statuses as of 07/29/2019) Immunizations Name Administration Dates Next Due Pneumococcal [...] Telephone Encounter - Karly Adler PA-C - 07/29/2019 9:01 AM EDT Signed Prescriptions: Disp Refills amLODIPine (NORVASC) 5 MG Tablet 180 Tab1 Sig: Take 1 Tab by mouth 2 times a day. Authorizing Provider: KARLY ADLER * Telephone Encounter - Maged Marie LPN - 07/29/2019 8:50 AM EDT Pending Prescriptions: Disp Refills amLODIPine (NORVASC) 5 MG Tablet 180 Tab1 Sig: Take 1 Tab by mouth 2 times a day. Last Office/Telemedicine Visit: 03/31/2019 Next Office Visit: 09/29/2019 Scheduled Provider(s): Karly Adler PA-C If no future appointments scheduled, and last appointment is greater than a year ago, please schedule patient for a follow-up appointment Last date the medication was ordered: 02/03/2019 Pharmacy: [id number] Is this request for a controlled substance?No Urine Drug Screen:No results found for this or any previous visit. Patient Phone Numbers Labs: Lab Results Component Value Date/Time CREAT 0.9 03/31/2019 08:26 AM POTASSIUM 4.4 03/31/2019 08:26 AM TSH 3.81 04/28/2018 09:11 AM LDLCALC 102 08/19/2018 08:36 AM LDLDIRECT 101 02/04/2011 04:00 PM ALT 21 03/31/2019 08:26 AM HGBA1C 7.3 (H) 03/31/2019 08:26 AM * Telephone Encounter - Maged Marie LPN - 07/29/2019 8:50 AM EDT Message from [facility]: Cl Reynolds would like a refill of the following medications: amLODIPine (NORVASC) 5 MG Tablet [Karly Adler PA-C] Preferred pharmacy: [id number] documented in this encounter Plan of Treatment Upcoming Encounters Date Type Specialty Care Team Description 08/04/2019 Office Visit Internal Medicine Smith Orozco MD [address] [place] [address] [place] [address] [phone] 08/11/2019 Cardiac Studies Cardiac Studies [address] [place] [address] [phone] 09/29/2019 Office Visit Cardiology Karly Adler [facility]C [facility] [address] 11/11/2019 Office Visit Dermatology Kim Kong MD [address] [place] [address] [phone] 02/14/2020 Imaging Radiology Health Maintenance Due Date [...] of this encounter Implants Implanted Type Area Pulmonology Physician Device Identifier Shelf Expiration Date Model / Serial / Lot Marker Coronary [facility] - [id number] Implanted:Qty: 1 on 12/26/[address] [facility] N/A: Heart [employer] 10/13/2013 [facility]-[place] / / [id number] Sut Steel 6 M654g - [id number] Implanted:Qty: 5 on 12/26/[address] [facility] Chest DO NOT USE 10/14/2015 M654G / / [id number] Band Ankur 225-241 - [id number] Implanted:Qty: 1 on 12/26/[address] [facility] Chest [employer] 225-241 / / [id number] Lens Intraoc 17.5 - [id number] - [id number] Implanted:Qty: 1 on 02/07/2019 by Quincy Paiz MD at OR [facility] Right: Eye BAUSCH & LOMB 08/14/2023 [id number] / [id number] / [id number] Lens Intraoc 17.0 - [id number] - [id number] Implanted:Qty: 1 on 03/01/2019 by Quincy Paiz MD at OR [facility] Left: Eye BAUSCH & LOMB 09/12/2022 [id number] / [id number] / [id number] documented as of this encounter Visit Diagnoses Diagnosis Essential hypertension with goal blood pressure less than 140/90- Primary [place] (myocardial infarction) Old myocardial infarction documented in this encounter Advance Directives Documents on File Type Date Recorded Patient Cap Blocker Expl 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
--- OUTSIDE RECORDS SUMMARY | 2022-11-16 13:17 | External Medical Summary | Summary of Care ---
Author Name Unknown Organization [place] [address] Care Team Providers Care Strategic Partnership Specialist Name Role Phone Smith Danielle MD Primary Care Provider Reason for Visit * Reason Comments eRx-Medication Refill Encounter Details Date Type Department Care Team Description 11/15/2019 Refill Internal Medicine [address] [address] Smith Danielle MD [address] [place] [address] [place] [address] [phone] Type 2 diabetes mellitus with hemoglobin A1c goal of less than 8.0% ([facility]) Allergies Active Allergy Reactions Severity Noted Date Comments Acetaminophen Renal complications 04/27/2009 Aspirin 08/13/2000 Stomach pain Cholestyramine 08/13/2000 Kidney pain Atorvastatin Calcium 04/28/2007 cramping Niacin Muscle pain 07/22/2007 Simvastatin Hives 08/13/2000 Ezetimibe 04/28/2007 Cramping ankles, turned feet inward documented as of this encounter (statuses as of 11/15/2019) Medications Medication Sig Dispensed Refills Start Date [...] Terazosin HCl 2 MG CapsuleIndication s:Atherosclerosis of [place] coronary artery of [place] heart without angina pectoris,BPH with obstruction/lower urinary [...] less than 140/90,Old [place] (myocardial infarction) Take 1 Tab by mouth 2 times a day. 180 Tab 1 07/29/2019 Active glipiZIDE XL (GLUCOTROL XL) 10 MG GF74Mjuuubkwfyq:T ype 2 diabetes mellitus with hemoglobin A1c [...] Active Valsartan 320 MG TabletIndications :Atherosclerosis of [place] coronary artery of [place] heart without angina pectoris,Primary hypertension Take 1 [...] A DAY 200 Each 3 11/15/2019 Active ONETOUCH ULTRASOFT LANCETS MISCIndications:T ype 2 diabetes mellitus with hemoglobin A1c goal of less than 8.0% (HCC) USE ONE LANCET TO TEST BLOOD SUGAR LEVELS TWICE A DAY 300 Each 3 08/24/2018 0 Discontinued documented as of this encounter (statuses as of 11/15/2019) Active Problems Problem Noted Date Type 2 [...] to patient at prior appointment. Atherosclerosis of [place] co ronary artery of [place] heart without angina pectoris 11/30/2001 GENERAL OSTEOARTHROSIS Multiple pulmonary nodules Complex renal cyst Overview: 3.8 cm; L [place] (myocardial infarction) documented as of this encounter (statuses as of 11/15/2019) Resolved Problems Problem Noted Date Resolved Date Genomics Cardio Research Other*[id number] 201004/22/2016 Overview: Study Titile: Genomics Markers for Patients with Cardiovascular Disease Project # [id number] PI: Amalia Kingsley MD Please call [phone] with study related questions HTN, goal below [...] as of this encounter (statuses as of 11/15/2019) Immunizations Name Administration Dates Next Due Pneumococcal [...] encounter Miscellaneous Notes * Telephone Encounter - Robert Yu [facility] ED - 11/15/2019 10:13 AM EDT Signed Prescriptions: Disp Refills OneTouch UltraSoft Lancets MISC 200 Ea*3 Sig: USE ONE LANCET TO TEST BLOOD SUGAR LEVELS TWICE A DAYAuthorizing Provider: SMITH DANIELLE User: GREGORY YU AN documented in this encounter Plan of Treatment Upcoming Encounters Date Type Specialty Care Team Description 02/14/2020 Imaging Radiology 03/01/2020 Office Visit Internal Medicine Smith Danielle MD [address] [place] [address] [place] [address] [phone] 04/24/2020 Office Visit Cardiology Alcon Lott PA-C [address] [place] [address] [phone] 06/29/2020 Office Visit Dermatology Kim Kong MD [address] [place] [address] [place] [address] [phone] Health Maintenance Due Date Last Done Comments [...] of this encounter Implants Implanted Type Area Ceramic Tile Installer Device Identifier Shelf Expiration Date Model / Serial / Lot Marker Coronary [facility] - [id number] Implanted:Qty: 1 on 12/26/[place] [facility] [place]/A: Heart [employer] 10/13/2013 [facility] / / [id number] Sut Steel 6 M654g - [id number] Implanted:Qty: 5 on 12/26/2010 [place] [facility] Chest DO NOT USE 10/14/2015 M654G / / [id number] Band [facility] 225-137 - [id number] Implanted:Qty: 1 on 12/26/2010 at [place] [facility] Chest [employer] 225-241 / / [id number] Lens Intraoc 17.5 - [id number] - [id number] Implanted:Qty: 1 on 02/07/2019 by Quincy Paiz MD at OR [facility] Right: Eye [employer]USCH [employer] LOMB 08/14/2023 [id number] / [id number] / [id number] Lens Intraoc 17.0 - [id number] - [id number] Implanted:Qty: 1 on 03/01/2019 by Quincy Paiz MD at OR [facility] Left: Eye BAUSCH & LOMB 09/12/2022 [id number] / [id number] / [id number] documented as of this encounter Visit Diagnoses Diagnosis Type 2 diabetes mellitus with hemoglobin A1c goal of less than 8.0% (HCC) documented in this encounter Advance Directives Documents on File Type Date Recorded Patient Zmt Operator Expl 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
--- OUTSIDE RECORDS SUMMARY | 2022-11-16 13:17 | External Medical Summary ---
Author Name Unknown Address [facility] [address] [place] [id number] Phone Organization K01:[place] [address] [address] [facility] [address] Laboratory Report Ordering Provider Test Date Status LOLIS BRADFORD 08/30/2019 08:34:00 Final Observation Date Value Abnormality Reference (Units ) Status Vitamin B12 08/30/2019 15:41 [phone] (p g/mL) Final Performing Location [place] [address] [address] [facility] [address]
--- OUTSIDE RECORDS SUMMARY | 2022-11-16 13:17 | External Medical Summary | Summary of Care ---
Author Name Unknown Organization [facility] Address [facility] [place] [address] Care Team Providers Care Land Leasing Information Clerk Name Role Phone Smith Orozco MD Primary Care Provider Reason for Visit * Reason Comments Cardiac Test Cardiology Study Echo Encounter Details Date Type Department Care Team Description 08/11/2019 Cardiac Studies Cardiac Studies [address] [place] [address] [place], Frit Mixer [address] [place] [id number] Nonrheumatic aortic valve stenosis* Allergies Active Allergy Reactions Severity Noted Date Comments Acetaminophen Renal complications 04/27/2009 Aspirin 08/13/2000 Stomach pain Cholestyramine 08/13/2000 Kidney pain Atorvastatin Calcium 04/28/2007 cramping Niacin Muscle pain 07/22/2007 Simvastatin Hives 08/13/2000 Ezetimibe 04/28/2007 Cramping ankles, turned feet inward documented as of this encounter (statuses as of 08/11/2019) Medications Medication Sig Dispensed Refills Start Date [...] goal of less than 8.0% ([facility]) USE ONE LANCET TO TEST BLOOD SUGAR LEVELS TWICE A DAY 300 Each 3 08/24/2018 Active ONETOUCH ULTRA BLUE STRPIndications:Type 2 diabetes mellitus with hemoglobin A1c goal of less than 8.0% ([facility]) USE ONE TEST STRIP TO TEST BLOOD SUGAR LEVELS TWICE A DAY 300 Strip 3 08/24/2018 Active glipiZIDE XL (GLUCOTROL XL) 10 MG [id number]:Type 2 diabetes mellitus with hemoglobin A1c goal of less than 8.0% ([facility]) TAKE 1 TABLET BY MOUTH TWICE [...] Terazosin HCl 2 MG CapsuleIndications:A therosclerosis of [place] coronary artery of [place] heart without angina pectoris,BPH with obstruction/lower urinary [...] goal of less than 8.0% ([facility]) TAKE 1 TABLET BY MOUTH TWICE A DAY WITH MEALS 180 Tab 1 04/19/2019 Active omeprazole (PRILOSEC) 20 MG CPDRIndications:Pept ic ulcer Take 1 Cap by mouth daily. 90 Cap 1 07/18/2019 Active amLODIPine (NORVASC) 5 MG TabletIndications:Es sential hypertension with goal blood pressure less than 140/90,Old IA (myocardial infarction) Take 1 Tab by mouth 2 times a day. 180 Tab 1 07/29/2019 Active documented as of this encounter (statuses as of 08/11/2019) Active Problems Problem Noted Date Type 2 [...] to patient at prior appointment. Atherosclerosis of [place] co ronary artery of [place] heart without angina pectoris 11/30/2001 GENERAL OSTEOARTHROSIS Multiple pulmonary nodules Complex renal cyst Overview: 3.8 cm; L Old IA (myocardial infarction) documented as of this encounter (statuses as of 08/11/2019) Resolved Problems Problem Noted Date Resolved Date Gen[employer] Cardio Research Other*[id number] 201004/22/2016 Overview: Study Titile: Genomics Markers for Patients with Cardiovascular Disease Project # [id number] PI: Amalia Kingsley MD Please call [phone] with study related questions HTN, goal below [...] as of this encounter (statuses as of 08/11/2019) Immunizations Name Administration Dates Next Due Pneumococcal [...] AM EDT documented as of this encounter Progress Notes * Robert Pryor RN - 08/11/2019 8:57 AM EDT Echo completed today by instrumentation technologist per provider order. Definity ultrasound contrast employed to enhance left ventricular endocardial border definition. Verbal informed consent was obtained from patient for use of Definity ultrasound contrast. IV access obtained right forearm area using # 22 gauge device under aseptic technique with one attempt made. Sterile dressing applied. Catheter flushed with NSS to assure patency. At conclusion of imaging, IV access discontinued with catheter removed intact. Sterile dressing applied. No bruising, bleeding, or hematoma noted at site. Definity one vial diluted in NSS to total volume of 10 ml. Total of 3.0 ml of solution solution administered during imaging. Patient asymptomatic at time of departure from department. Definity [facility] [phone]; Lot [id number]; Exp. [id number]. documented in this encounter Plan of Treatment Upcoming Encounters Date Type Specialty Care Team Description 08/30/2019 Office Visit Internal Medicine Smith Orozco MD [address] [place] [address] [place] [address] 09/29/2019 Office Visit Cardiology Alcon Lott [facility]C [address] [facility] [address] [phone] 11/11/2019 Office Visit Dermatology Kim Kong MD [address] [facility] [place], [place] [address] [phone] 02/14/2020 Imaging Radiology Health Maintenance Due Date [...] of this encounter Implants Implanted Type Area Pulp Maker Device Identifier Shelf Expiration Date Model / Serial / Lot Marker Coronary [facility]-Sd - [id number] Implanted:Qty: 1 on 12/26/2010 at OR [facility] N/A: Heart [employer] 10/13/2013 [employer] / / [id number] Sut Steel 6 M654g - [id number] Implanted:Qty: 5 on 12/26/2010 at OR [facility] Chest DO NOT USE 10/14/2015 M654G / / [id number] [facility] 225-241 - [id number] Implanted:Qty: 1 on 12/26/2010 at OR [facility] Chest [employer] 225-241 / / [id number] Lens Intraoc 17.5 - [id number] - [id number] Implanted:Qty: 1 on 02/07/2019 by Quincy Paiz MD at OR [facility] Right: Eye [employer] 08/14/2023 [id number] / [id number] / [id number] Lens Intraoc 17.0 - [id number] - [id number] Implanted:Qty: 1 on 03/01/2019 by Quincy Paiz MD at OR [facility] Left: Eye [employer] 09/12/2022 [id number] / [id number] / [id number] documented as of this encounter Visit Diagnoses Diagnosis Nonrheumatic aortic valve stenosis- Primary Aortic valve disorders documented in this encounter Advance Directives Documents on File Type Date Recorded Patient Window Maker Expl 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
--- OUTSIDE RECORDS SUMMARY | 2022-11-16 13:17 | External Medical Summary | Summary of Care ---
Author Name Unknown Organization [place] [address] Care Team Providers Care Bottle Packer Name Role Phone Smith Orozco MD Primary Care Provider + [phone] Reason for Visit * Reason Comments Follow Up Encounter Details Date Type Department Care Team Description 10/13/2019 Office Visit Cardiology [address] [id number] Alcon Lott PA-Adelfo [address] [place] [address] [phone] Ischemic cardiomyopathy*; Essential hypertension with goal blood pressure less than 140/90; Statin intolerance; Bradycardia; Atherosclerosis of [place] coronary artery of [place] heart without angina pectoris; Asymptomatic bilateral carotid artery stenosis; Dyslipidemia, goal LDL below 70; Old VT (myocardial infarction) Allergies Active Allergy Reactions Severity Noted Date Comments Acetaminophen Renal complications 04/27/2009 Aspirin 08/13/2000 Stomach pain Cholestyramine 08/13/2000 Kidney pain Atorvastatin Calcium 04/28/2007 cramping Niacin Muscle pain 07/22/2007 Simvastatin Hives 08/13/2000 Ezetimibe 04/28/2007 Cramping ankles, turned feet inward documented as of this encounter (statuses as of 10/13/2019) Medications Medication Sig Dispensed Refills Start Date [...] ([facility]) USE ONE LANCET TO TEST BLOOD SUGAR LEVELS TWICE A DAY 300 Each 3 08/24/2018 Active ONETOUCH ULTRA BLUE STRPIndications:Type 2 diabetes mellitus with hemoglobin A1c goal of less than 8.0% ([facility]) USE ONE TEST STRIP TO TEST BLOOD SUGAR LEVELS TWICE A DAY 300 Strip 3 08/24/2018 Active Terazosin HCl 2 MG CapsuleIndications:A therosclerosis of [place] coronary artery of [...] Active glipiZIDE XL (GLUCOTROL XL) 10 MG [id number]:Type 2 diabetes mellitus with hemoglobin A1c goal of less than 8.0% ([facility]) Take 1 Tab by mouth [...] Active Valsartan 320 MG TabletIndications:At herosclerosis of [place] coronary artery of [place] heart without angina pectoris,Primary hypertension Take 1 Tab by mouth daily. 90 Tab 1 09/01/2019 Active documented as of this encounter (statuses as of 10/13/2019) Active Problems Problem Noted Date Type 2 [...] as of this encounter (statuses as of 10/13/2019) Resolved Problems Problem Noted Date Resolved Date Genomics Cardio Research Other*[id number] 201004/22/2016 Overview: Study Titile: Genomics Markers for Patients with Cardiovascular Disease Project # [id number] PI: Amalia Kingsley MD Please call [phone] with study related questions HTN, goal below [...] as of this encounter (statuses as of 10/13/2019) Immunizations Name Administration Dates Next Due Pneumococcal [...] have Coronavirus / COVID-19? No / Unsure 10/13/2019 9:01 AM EDT documented as of this encounter Last Filed Vital Signs Vital Sign Reading Time Taken Comments Blood Pressure 140/70 10/13/2019 9:14 AM EDT Pulse 64 10/13/2019 9:14 AM EDT Temperature 35.8 C (96.5 F) 10/13/2019 9:14 AM ED T Respiratory Rate 14 10/13/2019 9:14 AM EDT Oxygen Saturation - - Inhaled Oxygen Concentration - - Weight 64 kg (141 lb 3.2 oz) 10/13/2019 9:14 AM EDT Height - - Body Mass Index 24.24 03/01/2019 6:34 AM EST documented in this encounter Progress Notes * Alcon Lott PA-C - 10/13/2019 9:20 AM EDT History of Present Illness: Mr. Reynolds is a very pleasant 79 year old male here today for cardiology follow-up evaluation. BP well controlled on home monitoring except for an episode of asymptomatic hypotension in the morning of September 24, 2019. No change in exercise tolerance. No chest pain. No tac hypalpitations. No unusual shortness of breath. Minimal edema. No dizziness, near syncope, or syncope. No epistaxis, hemoptysis, melena, hematochezia, or hematuria. Rare headache, not requiring intervention. No visual changes. No amaurosis fugax. Interim medication changes included changing Losartan to valsartan. Patient Active Problem List Diagnosis Code GENERAL OSTEOARTHROSIS M15.9 Atherosclerosis of [place] coronary artery of [place] heart without angina pectoris I25.10 ADVANCE DIRECTIVE INFORMATION Type 2 diabetes mellitus with hemoglobin A1c goal of less than 8.0% ([facility]) E11.9 DYSLIPIDEMIA, GOAL LDL [...] and hypertension (HCC) E11.22, I12.9, N18.2 Old VT (myocardial infarction) I25.2 Past Surgical History: Inguinal hernia. CABG Social History: From [place]. Lives in [place] with his . Reformed smoker. 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 Complete Review of Systems is as stated [...] Cap by mouth daily. 90 Cap 1 Terazosin HCl 2 MG Capsule Take 1 Cap by mouth at bedtime. 90 Cap 3 MULTI-VITAMIN PO TABS one pill each day SB LOW DOSE ASA EC 81 MG PO TBEC Take by mouth. Indications: pmonday, wednesday sandra MAGNESIUM OXIDE 200 MG PO TABS one tablet twice a day 60 Tab 5 GAVI 180 MG PO TABS One pill by mouth once a day for allergies (Patient taking differently: Take by mouth. Indications: as needed) 30 5 tretinoin (RETIN-A) 0.05 % cream APPLY NIGHTLY TO FACE DIRECTED,CAN MIX WITH PONDS 45 g 5 ONETOUCH ULTRA BLUE STRP USE ONE TEST STRIP TO TEST BLOOD SUGAR LEVELS TWICE A DAY 300 Strip 3 ONETOUCH ULTRASOFT LANCETS [facility] USE ONE LANCET TO TEST BLOOD SUGAR LEVELS TWICE A DAY 300 Each 3 PHYSICAL EXAMINATION BP 140/70 | Pulse 64 | Temp 96.5 | Resp 14 | Wt 141 lbs 3.2 oz (64.048kg) | BMI 24.24 kg/m | BSA 1.7 m | BP on my examination as 124/60 via the left arm using the wall mounted cuff with drop to 108/62 General: A&Ox3. NAD. HEENT: Normocephalic. Atraumatic. PER. Conjunctiva pink, sclera clear. Neck: Bilateral carotid bruits. No JVD. No HJR. Heart: Regular at 60 bpm. Grade II/ systolic ejection murmur. No rub. No gallop. PMI is nondisplaced. Lungs: Clear to auscultation. Abdomen: +BS. No abdominal bruits. Soft. Nontender. No masses or organomegaly. Extremities: No clubbing, cyanosis, or edema. Limited neurological examination is without focal deficits. Pulses: radial=2/4, posterior tibial=2/4. Data: Component 08/19/2018 HOURS FASTING NOT FASTING TRIGLYCERIDES 95 CHOLESTEROL 176 HDL-CHOLESTEROL 55 CHOL/HDL RATIO 3.2 LDL (CALCULATED) 102 August 11, 2019 TTE Interpretation Summary (as [...] regurgitation. Mild mitral regurgitation. Mild tricuspid regurgitation. ASSESSMENT: 1. ASCVD 1. Prior inferior VT in 1994 managed at [facility]. 2. Catheterization in 2010 following abnormal nuclear [...] obtuse marginal. 4. Ischemic cardiomyopathy, LVEF 40-44%. 5. Volume status appears mildly hypovolemic due to limited oral intake of water. 2. Mixed valve disease, aortic stenosis and insufficiency, mitral regurgitation. 3. Labile hypertension. Blood pressure acceptably controlled at home and on evaluation today. 4. Bradycardia. Beta-layne intolerance. 5. Prior palpitations in association with sensed ectopy, quiescent. 6. Dyslipidemia. Documented statin intolerance and Zetia. 7. Carotid artery disease. History of prior TIA with transient leg weakness. January 2019 Carotid Duplex with 50 to 69% CRISTI stenosis, mild (<50%) LICA. 8. Type II diabetes mellitus. Followed by PCP. 9. BPH RECOMMENDATIONS/PLAN: 1. Increase free water intake 2. If symptomatic hypotension/orthostasis observed would reduce versus discontinue terozosin. 3. Carotid duplex in January 2020. 4. Routine cardiology follow-up in 6 months or as needed. 5. ER with emergencies. Alcon Lott PA-C Department of Cardiology documented in this encounter Nursing Notes * Suzan Alcantar RN - 10/13/2019 9:15 AM EDT Examination Room: 4 Name: Cl Reynolds Date of : (1940). Reason for Visit: Follow up Interim Hospitalization(s): No Problems/Concerns: States feeling well, overall. Denies having any current cardiac concerns. Chest Pain/SOB: Denies [facility] is a way you can talk to your provider online through e-mail. Would you like to sign up? I can activate it for you? ALREADY ACTIVE documented in this encounter Plan of Treatment Upcoming Encounters Date Type Specialty Care Team Description 11/11/2019 Office Visit Dermatology Kim Kong MD [address] [place] [address] [place] [address] 02/14/2020 Imaging Radiology 03/01/2020 Office Visit Internal Medicine Smith Orozco MD [address] [place] [address] [place] [address] [phone] 04/24/2020 Office Visit Cardiology Alcon Lott PA-C [address] [facility] [place] [address] [phone] Health Maintenance Due Date Last Done Comments [...] of this encounter Implants Implanted Type Area Medical Technician Device Identifier Shelf Expiration Date Model / Serial / Lot Marker Coronary [facility]-Sd - [id number] Implanted:Qty: 1 on 12/26/2010 at [place] [facility] [place] N/A: Heart [employer] 10/13/2013 AM-SD / / [id number] Sut Steel 6 M654g - [id number] Implanted:Qty: 5 on 12/26/2010 at [place] [facility] [place] Chest DO NOT USE 10/14/2015 M654G / / [id number] [employer] 225-668 - [id number] Implanted:Qty: 1 on 12/26/2010 at [place] [facility] [place] Chest [employer] 225-693 / / [id number] Lens Intraoc 17.5 - [id number] - [id number] Implanted:Qty: 1 on 02/07/2019 by Quincy Paiz MD at OR [facility] Right: Eye [employer] 08/14/2023 [id number] / [id number] / [id number] Lens Intraoc 17.0 - [id number] - [id number] Implanted:Qty: 1 on 03/01/2019 by Quincy Paiz MD at OR [facility] Left: Eye [employer] 09/12/2022 [id number] / [id number] / [id number] documented as of this encounter Visit Diagnoses Diagnosis Ischemic cardiomyopathy- Primary Other specified forms of chronic ischemic heart disease Essential hypertension with goal blood pressure less than 140/90 Statin intolerance Other drug allergy Bradycardia Other specified cardiac dysrhythmias Atherosclerosis of [place] coronary artery of [place] heart without angina pectoris Asymptomatic bilateral carotid artery stenosis Occlusion and stenosis of multiple and bilateral precerebral arteries without mention of cerebral infarction Dyslipidemia, goal LDL below 70 Other and unspecified hyperlipidemia Old VT (myocardial infarction) Old myocardial infarction documented in this encounter Advance Directives Documents on File Type Date Recorded 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
--- OUTSIDE RECORDS SUMMARY | 2022-11-16 13:17 | External Medical Summary ---
Author Name Unknown Address [facility] [place] [id number] Phone Organization K01:[place] [address] [address] [place] [id number] Laboratory Report Ordering Provider Test Date Status LOLIS BRADFORD 08/30/2019 08:34:00 Final Observation Date Value Abnormality Reference (Units ) Status HbA1C 08/30/2019 15:32 7.3 Above high normal 4.0-5 .6 (%) Final Performing Location [facility] [address] [facility] [address]
--- OUTSIDE RECORDS SUMMARY | 2022-11-16 13:18 | External Medical Summary | Summary of Care ---
Author Name Unknown Organization [place] [address] Care Team Providers Care Sash Finisher Name Role Phone Smith Danielle MD Primary Care Provider [phone] Reason for Visit * Reason Comments Pt Portal Med Renewal Encounter Details Date Type Department Care Team Description 03/18/2019 Refill Internal Medicine [address] [address] Stefania Ibarra PA-C [address] [place] [address] [place] [id number] HTN, goal below 140/80 Allergies Active Allergy Reactions Severity Noted Date Comments Acetaminophen Renal complications 04/27/2009 Aspirin 08/13/2000 Stomach pain Cholestyramine 08/13/2000 Kidney pain Atorvastatin Calcium 04/28/2007 cramping Niacin Muscle pain 07/22/2007 Simvastatin Hives 08/13/2000 Ezetimibe 04/28/2007 Cramping ankles, turned feet inward documented as of this encounter (statuses as of 03/21/2019) Medications Medication Sig Dispensed Refills Start Date End Date Status GAVI 180 MG PO TABSIndications:Al lergic rhinitis One pill by mouth once a day for allergies 30 5 07/23/2009 Active Additional information Patient taking differently: Oral, Indications: as needed, [...] DIRECTED,CAN MIX WITH PONDS 45 g 5 03/25/2017 Active ONETOUCH ULTRASOFT LANCETS MISCIndications:Ty pe 2 diabetes mellitus with hemoglobin A1c goal of less than 8.0% ([facility]) USE ONE LANCET TO TEST BLOOD SUGAR LEVELS TWICE A DAY 300 Each 3 08/24/2018 Active ONETOUCH ULTRA BLUE STRPIndications:Ty pe 2 diabetes mellitus with hemoglobin A1c goal of less than 8.0% (HCC) USE ONE TEST STRIP TO TEST BLOOD SUGAR LEVELS TWICE A DAY 300 Strip 3 08/24/2018 Active MetFORMIN (GLUCOPHAGE) 1000 MG TabletIndications: Type 2 diabetes mellitus with diabetic nephropathy (HCC),Type 2 diabetes mellitus with hemoglobin A1c goal of less than 8.0% (HCC) TAKE 1 TABLET BY MOUTH TWICE A DAY WITH MEALS 180 Tab 1 10/12/2018 Active omeprazole (PRILOSEC) 20 MG CPDRIndications:Pe ptic ulcer Take 1 Cap by mouth daily. 90 Cap 1 01/21/2019 Active amLODIPine (NORVASC) 5 MG Tablet TAKE 1 TABLET BY MOUTH TWICE A DAY 180 Tab 1 02/03/2019 Active glipiZIDE XL (GLUCOTROL XL) 10 MG [id number]:Ty pe 2 diabetes mellitus with hemoglobin A1c goal of less than 8.0% ([facility]) TAKE 1 TABLET BY MOUTH TWICE A DAY 180 Tab 1 02/05/2019 Active losartan (COZAAR) 50 MG TabletIndications: HTN, goal below 140/80 Take 1 Tab by mouth 2 times a day. 180 Tab 1 03/21/2019 Active Terazosin HCl 2 MG CapsuleIndications :Atherosclerosis of [place] coronary artery of council heart without angina pectoris,BPH with obstruction/lower urinary tract symptoms,Essential hypertension with goal blood pressure less than 140/90 Take 1 Cap by mouth at bedtime. 90 Cap 3 03/21/2019 Active losartan (COZAAR) 50 MG TabletIndications: HTN, goal below 140/80 TAKE ONE TABLET BY MOUTH TWICE A DAY 180 Tab 1 09/03/2018 0 Discontinue d(Refill) finasteride (PROSCAR) 5 MG TabletIndications: BPH with obstruction/lower urinary tract symptoms TAKE 1 TABLET BY MOUTH DAILY. 90 Tab 1 09/03/2018 0 Discontinue d(Refill) documented as of this encounter (statuses as of 03/21/2019) Active Problems Problem Noted Date Type 2 [...] to patient at prior appointment. Atherosclerosis of [place] co ronary artery of council heart without angina pectoris 11/30/2001 GENERAL OSTEOARTHROSIS Multiple pulmonary nodules Complex renal cyst Overview: 3.8 cm; L Old [place] (myocardial infarction) documented as of this encounter (statuses as of 03/21/2019) Resolved Problems Problem Noted Date Resolved Date [employer] Card[employer] Research Other*[id number] 201004/22/2016 Overview: Study Titile: Genomics Markers for Patients with Cardiovascular Disease Project # [id number] PI: Amalia Kingsley MD Please call [phone] with study related questions HTN, goal below [...] as of this encounter (statuses as of 03/21/2019) Immunizations Name Administration Dates Next Due Pneumococcal [...] Never Used Comments:quit in 1972 Alcohol Use Drinks/Week oz/Week Comments Yes rarely Sex Assigned at Date Recorded Not on file Job Start Date Occupation Industry Not on file Not on file Not on file Travel History Travel Start Travel End documented as of this encounter Miscellaneous Notes * Telephone Encounter - Smith Danielle MD - 03/21/2019 10:23 AM EST Signed Prescriptions: Disp Refills losartan (COZAAR) 50 MG Tablet 180 Tab1 Sig: Take 1 Tab by mouth 2 times a day. Authorizing Provider: SMITH DANIELLE * Telephone Encounter - Kasey Rosales LPN - 03/21/2019 9:36 AM EST Pending Prescriptions: Disp Refills losartan (COZAAR) 50 MG Tablet 180 Tab1 Sig: Take 1 Tab by mouth 2 times a day. Last Office Visit: 02/01/2019 Next Office Visit: 08/04/2019 Scheduled Provider(s): Smith Danielle MD Last date the medication was ordered: 09/03/18 Patient Active Problem List Diagnosis Code GENERAL OSTEOARTHROSIS M15.9 Atherosclerosis of council coronary artery of [place] heart without angina pectoris I25.10 ADVANCE DIRECTIVE INFORMATION Type 2 diabetes mellitus with hemoglobin A1c goal of less than 8.0% ([facility]) E11.9 DYSLIPIDEMIA, GOAL LDL BELOW 70 [...] I12.9, N18.2 Old [place] (myocardial infarction) I25.2 Labs: CREATININE(mg/dL) Lucía Dt/Tm Resulted Value Status 03/18/18 8:29A 03/18/18 1.1 FINAL POTASSIUM(mmol/L) Lucía Dt/Tm Resulted Value Status 03/18/18 8:29A 03/18/18 4.2 FINAL TSH(uIU/mL) Lucía Dt/Tm Resulted Value Status 04/28/18 9:11A 04/28/18 3.81 FINAL LDL (CALCULATED)(mg/dL) Lucía Dt/Tm Resulted Value Status 08/19/18 8:36A 08/19/18 102 EDITED LDL DIRECT(REFLEX)(mg/dL) Lucía Dt/Tm Resulted Value Status Value: NOT APPLICABLE ALT(U/L) Lucía Dt/Tm Resulted Value Status 03/18/18 8:29A 03/18/18 16 FINAL Hemoglobin AIC Results: HEMOGLOBIN, A1C(%) Lucía Dt/Tm Resulted Value Status 08/19/18 8:36A 08/19/18 6.9* FINAL 02/18/18 11:12A 02/18/18 7.1* FINAL 08/12/17 2:08P 08/12/17 7.0* FINAL * Telephone Encounter - Kasey Rosales LPN - 03/21/2019 9:36 AM EST Message from [employer]: Cl Reynolds would like a refill of the following medications: losartan (COZAAR) 50 MG Tablet [MAKI BoneC] Preferred pharmacy: [facility] [id number] documented in this encounter Plan of Treatment Upcoming Encounters Date Type Specialty Care Team Description 03/23/2019 [facility] [address] [phone] 03/31/2019 Office Visit Cardiology Alcon Lott PA-C [address] [facility] [place] [address] 08/04/2019 Office Visit Internal Medicine Smith Danielle MD [address] [place] [address] [place] [address] 02/14/2020 Imaging Radiology Health Maintenance Due Date Last Done Comments Zoster Vaccines (2 of 3) 01/10/2012 11/15/2011 DIABETES-HGBA1C EVERY 6 MONTHS 02/18/2019 08/19/2018, 02/18/2018, 08/12/2017, Additional history exists *DEPRESSION SCREENING,ANNUAL FOR PTS 12 AND OVER 02/20/2019 *BASIC METABOLIC PANEL (BMP) FOR HTN YEARLY 03/20/2019 Yearly B-12 08/20/2019 08/19/2018, 08/12/2017 DIABETES-EYE EXAM 11/10/2019 11/09/2018, , 10/10/2015, Additional history exists DIABETES-FOOT EXAM 01/25/2020 01/24/2019, 1 04/21/2017, 01/30/2017, Additional history exists DTaP,Tdap,and Td Vaccines (2 - Td) 08/05/2022 08/05/2012, 03/16/2003 Pneumococcal Vaccine: 65+ Years Completed 10/16/2015, 12/15/2006, 04/01/2002 Influenza Vaccine (FLU shot) Completed 11/2018, 11/17/2017, 11/21/2016, Additional history exists MENINGOCOCCAL (MENACTRA) Aged Out No longer eligible based on patient's age to complete this topic documented as of this encounter Implants Implanted Type Area Registered Dental Assistant Rda Device Identifier Shelf Expiration Date Model / Serial / Lot Marker [facility] - [id number] Implanted:Qty: 1 on 12/26/2010 at OR [facility] N/A: Heart [employer] 10/13/2013 [facility] / / [id number] Sut Steel 6 M654g - [id number] Implanted:Qty: 5 on 12/26/2010 at OR [facility] Chest DO NOT USE 10/14/2015 M654G / / [id number] [facility] 225-241 - [id number] Implanted:Qty: 1 on 12/26/2010 at OR [facility] Chest [employer] 225-241 / / [id number] Lens Intraoc 17.5 - [id number] - [id number] Implanted:Qty: 1 on 02/07/2019 by Quincy Paiz MD at OR [facility] Right: Eye [employer]OM[employer] 08/14/2023 [id number] / [id number] / [id number] Lens Intraoc 17.0 - [id number] - [id number] Implanted:Qty: 1 on 03/01/2019 by Quincy Paiz MD at OR [facility] Left: Eye BAUSCH & LOMB 09/12/2022 [id number] / [id number] / [id number] documented as of this encounter Visit Diagnoses Diagnosis HTN, goal below 140/80 Unspecified essential hypertension documented in this encounter Advance Directives Documents on File Type Date Recorded 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
--- OUTSIDE RECORDS SUMMARY | 2022-11-16 13:18 | External Medical Summary | Summary of Care ---
Author Name Unknown Organization [place] [address] Care Team Providers Care Certified Registered Locksmith Name Role Phone Smith Orozco MD Primary Care Provider Reason for Visit * Reason Comments Encounter Created in Error Encounter Details Date Type Department Care Team Description 04/13/2019 Telephone Internal Medicine [address] [address] Smith Orozco MD [address] [place] [address] [place] [address] [phone] Encounter Created in Error Allergies Active Allergy Reactions Severity Noted Date Comments Acetaminophen Renal complications 04/27/2009 Aspirin 08/13/2000 Stomach pain Cholestyramine 08/13/2000 Kidney pain Atorvastatin Calcium 04/28/2007 cramping Niacin Muscle pain 07/22/2007 Simvastatin Hives 08/13/2000 Ezetimibe 04/28/2007 Cramping ankles, turned feet inward documented as of this encounter (statuses as of 04/13/2019) Medications Medication Sig Dispensed Refills Start Date [...] 3 08/24/2018 Active MetFORMIN (GLUCOPHAGE) 1000 MG TabletIndications:Ty pe 2 diabetes mellitus with diabetic nephropathy ([facility]),Type 2 diabetes mellitus with hemoglobin A1c goal of less than 8.0% ([facility]) TAKE 1 TABLET BY MOUTH TWICE A DAY WITH MEALS 180 Tab 1 10/12/2018 Active omeprazole (PRILOSEC) 20 MG CPDRIndications:Pept ic ulcer Take 1 Cap by mouth daily. 90 Cap 1 01/21/2019 Active amLODIPine (NORVASC) 5 MG Tablet TAKE 1 TABLET BY MOUTH TWICE A DAY 180 Tab 1 02/03/2019 Active glipiZIDE XL (GLUCOTROL XL) 10 MG AP59Vmgscgqjgdy:Type 2 diabetes mellitus with hemoglobin A1c goal [...] Terazosin HCl 2 MG CapsuleIndications:A therosclerosis of [place] coronary artery of [place] heart without angina pectoris,BPH with obstruction/lower urinary tract symptoms,Essential hypertension with goal blood pressure less than 140/90 Take 1 Cap by mouth at bedtime. 90 Cap 3 03/21/2019 Active tretinoin (RETIN-A) 0.05 % creamIndications:Act inic keratosis APPLY NIGHTLY TO FACE DIRECTED,CAN MIX WITH PONDS 45 g 5 03/28/2019 Active documented as of this encounter (statuses as of 04/13/2019) Active Problems Problem Noted Date Type 2 [...] to patient at prior appointment. Atherosclerosis of [place] co ronary artery of [place] heart without angina pectoris 11/30/2001 GENERAL OSTEOARTHROSIS Multiple pulmonary nodules Complex renal cyst Overview: 3.8 cm; L Old [place] (myocardial infarction) documented as of this encounter (statuses as of 04/13/2019) Resolved Problems Problem Noted Date Resolved Date Gen[employer] Cardio Research Other*[id number] 201004/22/2016 Overview: Study Titile: Genomics Markers for Patients with Cardiovascular Disease Project # [id number] PI: Amalia Kingsley MD Please call [phone] with study related questions HTN, goal below [...] as of this encounter (statuses as of 04/13/2019) Immunizations Name Administration Dates Next Due Pneumococcal [...] Travel End documented as of this encounter Plan of Treatment Upcoming Encounters Date Type Specialty Care Team Description 08/02/2019 Cardiac Studies Cardiac Studies [address] [place] [address] 08/04/2019 Office Visit Internal Medicine Smith Orozco MD [address] [place] [address] Dr GARC[place], [place] [address] 09/29/2019 Office Visit Cardiology Alcon Lott PA-C [address] [place] [address] [phone] 11/11/2019 Office Visit Dermatology Kim Kong MD [address] [place] [address] [phone] 02/14/2020 Imaging Radiology Health Maintenance Due Date [...] of this encounter Implants Implanted Type Area Botany Technician Device Identifier Shelf Expiration Date Model / Serial / Lot Marker Coronary Am-Sd - [id number] Implanted:Qty: 1 on 12/26/2010 at OR [facility] N/A: Heart [employer] 10/13/2013 AM-SD / / [id number] Sut Steel 6 M654g - [id number] Implanted:Qty: 5 on 12/26/2010 at OR [facility] Chest DO NOT USE 10/14/2015 M654G / / [id number] [facility] 225-241 - [id number] Implanted:Qty: 1 on 12/26/2010 at OR [facility] Chest [employer] 225-241 / / [id number] Lens Intraoc 17.5 - [id number] - [id number] Implanted:Qty: 1 on 02/07/2019 by Quincy Paiz MD at OR [facility] Right: Eye [employer]OM[employer] 08/14/2023 [id number] / [id number] / [id number] Lens Intraoc 17.0 - [id number] - [id number] Implanted:Qty: 1 on 03/01/2019 by Quincy Paiz MD at OR [facility] Left: Eye [employer] LOMB 09/12/2022 [id number] / [id number] / [id number] documented as of this encounter Advance Directives Documents on File Type Date Recorded 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
--- OUTSIDE RECORDS SUMMARY | 2022-11-16 13:18 | External Medical Summary | Summary of Care ---
Author Name Unknown Organization [facility] Address [facility] [place] [address] Care Team Providers Care Vice President Tax Name Role Phone Smith Orozco MD Primary Care Provider [phone] Encounter Details Date Type Department Care Team Description 03/28/2019 Orders Only Cardiology, [facility] [address] [place] [address] Alcon Lott PA-Adelfo [address] [facility] [place] [address] [phone] Ischemic cardiomyopathy* Allergies Active Allergy Reactions Severity Noted Date Comments Acetaminophen Renal complications 04/27/2009 Aspirin 08/13/2000 Stomach pain Cholestyramine 08/13/2000 Kidney pain Atorvastatin Calcium 04/28/2007 cramping Niacin Muscle pain 07/22/2007 Simvastatin Hives 08/13/2000 Ezetimibe 04/28/2007 Cramping ankles, turned feet inward documented as of this encounter (statuses as of 03/28/2019) Medications Medication Sig Dispensed Refills Start Date [...] g 5 03/25/2017 Active ONETOUCH ULTRASOFT LANCETS MISCIndications:Type 2 diabetes mellitus with hemoglobin A1c goal of less than 8.0% ([facility]) USE ONE LANCET TO TEST BLOOD SUGAR LEVELS TWICE A DAY 300 Each 3 08/24/2018 Active ONETOUCH ULTRA BLUE STRPIndications:Type 2 diabetes mellitus with hemoglobin A1c goal of less than 8.0% ([facility]) USE ONE TEST STRIP TO TEST BLOOD SUGAR LEVELS TWICE A DAY 300 Strip 3 08/24/2018 Active MetFORMIN (GLUCOPHAGE) 1000 MG TabletIndications:Ty pe 2 diabetes mellitus with diabetic nephropathy ([facility]),Type 2 diabetes mellitus with hemoglobin A1c goal of less than 8.0% ([facility]) TAKE 1 TABLET BY MOUTH TWICE A DAY WITH MEALS 180 Tab 1 10/12/2018 Active omeprazole (PRILOSEC) 20 MG CPDRIndications:Pept ic ulcer Take 1 Cap by mouth daily. 90 Cap 1 01/21/2019 Active amLODIPine (NORVASC) 5 MG Tablet TAKE 1 TABLET BY MOUTH TWICE A DAY 180 Tab 1 02/03/2019 Active glipiZIDE XL (GLUCOTROL XL) 10 MG RZ48Ojwmsxqdgsq:Type 2 diabetes mellitus with hemoglobin A1c goal of less than 8.0% ([facility]) TAKE 1 TABLET BY MOUTH TWICE [...] Terazosin HCl 2 MG CapsuleIndications:A therosclerosis of [place] coronary artery of [place] heart without angina pectoris,BPH with obstruction/lower urinary tract symptoms,Essential hypertension with goal blood pressure less than 140/90 Take 1 Cap by mouth at bedtime. 90 Cap 3 03/21/2019 Active documented as of this encounter (statuses as of 03/28/2019) Active Problems Problem Noted Date Type 2 [...] patient at prior appointment. Atherosclerosis of [place] co ronary artery of [place] heart without angina pectoris 11/30/2001 GENERAL OSTEOARTHROSIS Multiple pulmonary nodules Complex renal cyst Overview: 3.8 cm; L Old [place] (myocardial infarction) documented as of this encounter (statuses as of 03/28/2019) Resolved Problems Problem Noted Date Resolved Date Gen[employer] Cardio Research Other*[id number] 201004/22/2016 Overview: Study Titile: Genomics Markers for Patients with Cardiovascular Disease Project # [id number] PI: Amalia Kingsley MD Please call [phone] with study related questions HTN, goal below [...] as of this encounter (statuses as of 03/28/2019) Immunizations Name Administration Dates Next Due Pneumococcal [...] Encounters Date Type Specialty Care Team Description 03/31/2019 Office Visit Cardiology Alcon Lott PA-C [address] [place] [address] [place] [address] [phone] 08/04/2019 Office Visit Internal Medicine Smith Orozco MD [address] [place] [address] [place] [address] [phone] 11/11/2019 Office Visit Dermatology Kim Kong MD [facility] [place] [address] [phone] 02/14/2020 Imaging Radiology Scheduled Orders Name Type Priority Associated Diagnoses Orde r Schedule EKG EKG Routine Ischemic cardiomyopathy Expected: 03/31/2019, Expires: 05/27/2019 Health Maintenance Due Date Last Done Comments [...] of this encounter Implants Implanted Type Area Restaurant Lead Device Identifier Shelf Expiration Date Model / Serial / Lot Marker Coronary Am-Sd - [id number] Implanted:Qty: 1 on 12/26/2010 at OR [facility] N/A: Heart [employer] 10/13/2013 AM-SD / / [id number] Sut Steel 6 M654g - [id number] Implanted:Qty: 5 on 12/26/2010 at OR [facility] Chest DO NOT USE 10/14/2015 M654G / / [id number] Alonso Ankur 661-912 - [id number] Implanted:Qty: 1 on 12/26/2010 at OR [facility] Chest [employer] 225-241 / / [id number] Lens Intraoc 17.5 - [id number] - [id number] Implanted:Qty: 1 on 02/07/2019 by Quincy Paiz MD at OR [facility] Right: Eye [employer]OM[employer] 08/14/2023 [id number] / [id number] / [id number] Lens Intraoc 17.0 - [id number] - [id number] Implanted:Qty: 1 on 03/01/2019 by Quincy Paiz MD at OR [facility] Left: Eye [employer] LOMB 09/12/2022 [id number] / [id number] / [id number] documented as of this encounter Visit Diagnoses Diagnosis Ischemic cardiomyopathy- Primary Other specified forms of chronic ischemic heart disease documented in this encounter Advance Directives Documents on File Type Date Recorded 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
--- OUTSIDE RECORDS SUMMARY | 2022-11-16 13:18 | External Medical Summary | Summary of Care ---
Author Name Unknown Organization [place] [address] Care Team Providers Care Dish Carrier Name Role Phone Smith Orozco MD Primary Care Provider + [phone] Reason for Visit * Reason Comments Pt Portal Med Renewal Encounter Details Date Type Department Care Team Description 03/18/2019 Refill [address] [id number] Karly Adler PA-Adelfo [address] [place] [address] [phone] Atherosclerosis of [place] coronary artery of [place] heart without angina pectoris; BPH with obstruction/lower urinary tract symptoms; Essential hypertension with goal blood pressure less [...] TWICE A DAY 180 Tab 1 09/03/2018 Active finasteride (PROSCAR) 5 MG TabletIndications: BPH with obstruction/lower urinary tract symptoms TAKE 1 TABLET BY MOUTH DAILY. 90 Tab 1 09/03/2018 Active MetFORMIN (GLUCOPHAGE) 1000 MG TabletIndications: Type [...] Active glipiZIDE XL (GLUCOTROL XL) 10 MG [id number]:Ty pe 2 diabetes mellitus with hemoglobin A1c goal of less than 8.0% (HCC) TAKE 1 TABLET BY MOUTH TWICE A DAY 180 Tab 1 02/05/2019 Active Terazosin HCl 2 MG CapsuleIndications :Atherosclerosis of [place] coronary artery of [place] heart without angina pectoris,BPH with obstruction/lower urinary tract symptoms,Essential hypertension with goal blood pressure less than 140/90 Take 1 Cap by mouth at bedtime. 90 Cap 3 03/21/2019 Active Terazosin HCl 2 MG CapsuleIndications :Atherosclerosis of [place] coronary artery of [place] heart without angina pectoris,BPH with obstruction/lower urinary tract symptoms,Essential hypertension with goal blood pressure less than 140/90 TAKE 1 CAP BY MOUTH AT BEDTIME. 90 Cap 3 02/16/2018 0 Discontinue d(Refill) documented as of this [...] Noted Date Resolved Date [employer] Card[employer] Research Other*[id number] 201004/22/2016 Overview: Study Titile: Genomics Markers for Patients with Cardiovascular Disease Project # [id number] PI: Amalia Kingsley MD Please call [phone] with study related questions HTN, goal below [...] Telephone Encounter - Karly Adler PA-C - 03/21/2019 9:21 AM EST Signed Prescriptions: Disp Refills Terazosin HCl 2 MG Capsule 90 Cap 3 Sig: Take 1 Cap by mouth at bedtime. Authorizing Provider: KARLY ADLER * Telephone Encounter - Suzan Alcantar RN - 03/21/2019 8:44 AM EST Pending Prescriptions: Disp Refills Terazosin HCl 2 MG Capsule 90 Cap 3 Sig: Take 1 Cap by mouth at bedtime. Last Office Visit: 09/28/2018 Next Office Visit: 03/31/2019 Scheduled Provider(s): Karly Adler PA-C Last medication order date: Have you choosen a preferred pharm?? 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 ([facility]) E11.22, I12.9, N18.2 Old [place] (myocardial infarction) [...] 08/12/17 7.0* FINAL * Telephone Encounter - Suzan Alcantar RN - 03/21/2019 8:44 AM EST Message from [employer]: Cl Reynolds would like a refill of the following medications: Terazosin HCl 2 MG Capsule [Karly Adler PA-C] Preferred pharmacy: [id number] documented in this encounter Plan of Treatment Upcoming Encounters Date Type Specialty Care Team Description 03/23/2019 Office Visit Dermatology Kim Kong MD [address] [place] [address] [phone] 03/31/2019 Office Visit Cardiology Karly Adler PA-C 132 [place] [address] [phone] 08/04/2019 Office Visit Internal Medicine Smith Orozco MD [address] [place] [address] [place] [address] [phone] 02/14/2020 Imaging Radiology Health Maintenance Due Date [...] of this encounter Implants Implanted Type Area Seismograph Chief Device Identifier Shelf Expiration Date Model / Serial / Lot Marker Coronary Am-Sd - [id number] Implanted:Qty: 1 on 12/26/2010 [place] [facility] [place]/A: Heart [employer] 10/13/2013 AM-[place] / / [id number] Sut Steel 6 M654g - [id number] Implanted:Qty: 5 on 12/26/2010 at [place] [facility] Chest DO NOT USE 10/14/2015 M654G / / [id number] Alonso [facility] 225-241 - [id number] Implanted:Qty: 1 on 12/26/2010 at [place] [facility] Chest [employer] 225-241 / / [id number] Lens Intraoc 17.5 - [id number] - [id number] Implanted:Qty: 1 on 02/07/2019 by Quincy Paiz MD at OR [facility] Right: Eye [employer] 08/14/2023 [id number] / [id number] / [id number] Lens Intraoc 17.0 - [id number] - [id number] Implanted:Qty: 1 on 03/01/2019 by Quincy Paiz MD at OR [facility] Left: Eye [employer] LOMB 09/12/2022 [id number] / [id number] / [id number] documented as of this encounter Visit Diagnoses Diagnosis Atherosclerosis of [place] coronary artery of [place] heart without angina pectoris BPH with obstruction/lower urinary tract symptoms Hypertrophy of prostate with urinary obstruction and other lower urinary tract symptoms (LUTS) Essential hypertension with goal blood pressure less than 140/90 documented in this encounter Advance Directives Documents on File Type Date Recorded 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
--- OUTSIDE RECORDS SUMMARY | 2022-11-16 13:18 | External Medical Summary ---
Author Name Unknown Address Unknown Organization R:IT USE ONLY!!! Laboratory Report Ordering Provider Test Date Status TRINI CHACON 03/01/2019 06:45:00 Final Observation Date Value Abnormality Reference Status Glucose Point of Care 03/01/2019 06:48 187 Above high normal 70-120 Final Performing Location IT USE ONLY!!!
--- OUTSIDE RECORDS SUMMARY | 2022-11-16 13:18 | External Medical Summary | Summary of Care ---
Author Name Unknown Organization [facility] [place] [address] Care Team Providers Care Plaster Mixer Name Role Phone Smith Danielle MD Primary Care Provider Reason for Visit * Reason Comments Pt Portal Med Renewal Medication Refill Encounter Details Date Type Department Care Team Description 03/28/2019 Refill Dermatology [facility] [address] [place] [address] Smith Danielle MD [address] [place] [address] [place] [address] [phone] Actinic keratosis Allergies Active Allergy Reactions Severity Noted Date Comments Acetaminophen Renal complications 04/27/2009 Aspirin 08/13/2000 Stomach pain Cholestyramine 08/13/2000 Kidney pain Atorvastatin Calcium 04/28/2007 cramping Niacin Muscle pain 07/22/2007 Simvastatin Hives 08/13/2000 Ezetimibe 04/28/2007 Cramping ankles, turned feet inward documented as of this encounter (statuses as of 04/04/2019) Medications Medication Sig Dispensed Refills Start Date [...] Active glipiZIDE XL (GLUCOTROL XL) 10 MG [id number]:Ty pe 2 diabetes mellitus with hemoglobin A1c goal of less than 8.0% ([facility]) TAKE 1 TABLET BY MOUTH [...] Terazosin HCl 2 MG CapsuleIndications :Atherosclerosis of [place] coronary artery of [place] heart without angina pectoris,BPH with obstruction/lower urinary tract symptoms,Essential hypertension with goal blood pressure less than 140/90 Take 1 Cap by mouth at bedtime. 90 Cap 3 03/21/2019 Active tretinoin (RETIN-A) 0.05 % creamIndications:A ctinic keratosis APPLY NIGHTLY TO FACE DIRECTED,CAN MIX WITH PONDS 45 g 5 03/28/2019 Active tretinoin (RETIN-A) 0.05 % creamIndications:A ctinic keratosis APPLY NIGHTLY TO FACE DIRECTED,CAN MIX WITH PONDS 45 g 5 03/25/2017 0 Discontinue d(Refill) documented as of this encounter (statuses as of 04/04/2019) Active Problems Problem Noted Date Type 2 [...] to patient at prior appointment. Atherosclerosis of [place] co ronary artery of [place] heart without angina pectoris 11/30/2001 GENERAL OSTEOARTHROSIS Multiple pulmonary nodules Complex renal cyst Overview: 3.8 cm; L Old [place] (myocardial infarction) documented as of this encounter (statuses as of 04/04/2019) Resolved Problems Problem Noted Date Resolved Date Genomics Cardio Research Other*[id number] 201004/22/2016 Overview: Study Titile: Genomics Markers for Patients with Cardiovascular Disease Project # [id number] PI: Amalia Kingsley MD Please call [phone] with study related questions HTN, goal below [...] as of this encounter (statuses as of 04/04/2019) Immunizations Name Administration Dates Next Due Pneumococcal [...] encounter Miscellaneous Notes * Telephone Encounter - Elías Moore CPhT - 04/04/2019 1:53 PM EST Electron Beam Operator calling from [facility] regarding an authorization for the pt's Tretinoin. Electron Beam Operator asked if pt has diagnosis of acne vulgaris. I advised they do not and provided the diagnosis of actinic keratosis as is associated with the medication order. Electron Beam Operator had no further questions at this time. Thanks, Elías Moore CPhT Household Coordinator GOWEX 04/04/2019, 1:54 PM * Telephone Encounter - Smith Danielle MD - 03/28/2019 3:05 PM EST Signed Prescriptions: Disp Refills tretinoin (RETIN-A) 0.05 % cream 45 g 5 Sig: APPLY NIGHTLY TO FACE DIRECTED,CAN MIX WITH PONDS Authorizing Provider: SMITH DANIELLE * Telephone Encounter - Elvis Benavides LPN - 03/28/2019 2:45 PM EST Pending Prescriptions: Disp Refills tretinoin (RETIN-A) 0.05 % cream 45 g 5 Sig: APPLY NIGHTLY TO FACE DIRECTED,CAN MIX WITH PONDS Last Office Visit: 02/01/2019 Next Office Visit: 08/04/2019 Last date the medication was ordered: 03/25/2017 Patient Active Problem List Diagnosis Code GENERAL OSTEOARTHROSIS M15.9 Atherosclerosis of [place] coronary artery of [place] heart without angina pectoris I25.10 ADVANCE DIRECTIVE [...] and hypertension (HCC) E11.22, I12.9, N18.2 Old [place] (myocardial infarction) I25.2 Labs: CREATININE(mg/dL) Lucía Dt/Tm [...] 08/12/17 7.0* FINAL * Telephone Encounter - Elvis Benavides LPN - 03/28/2019 2:45 PM EST Message from [employer]: Cl Reynolds would like a refill of the following medications: tretinoin (RETIN-A) 0.05 % cream [Smith Danielle MD] Preferred pharmacy: [id number] documented in this encounter Plan of Treatment Upcoming Encounters Date Type Specialty Care Team Description 08/02/2019 Cardiac Studies Cardiac Studies [address] [place] [address] [phone] 08/04/2019 Office Visit Internal Medicine Smith Danielle MD [address] [place] [address] [place] [address] [phone] 09/29/2019 Office Visit Cardiology Alcon Lott PA-C 132 [facility] [place] [address] [phone] 11/11/2019 Office Visit Dermatology Kim Kong MD [address] [place] [address], [place] [address] [phone] 02/14/2020 Imaging Radiology Health Maintenance Due Date [...] of this encounter Implants Implanted Type Area Dry Press Operator Helper Device Identifier Shelf Expiration Date Model / Serial / Lot Marker Coronary [facility] - [id number] Implanted:Qty: 1 on [place] [facility] [place]A: Heart [employer] 10/13/2013 [facility] / / [id number] Sut Steel 6 M654g - [id number] Implanted:Qty: 5 on 12/26/2010 [place] [facility] Chest DO NOT USE 10/14/2015 M654G / / [id number] Band Ankur 555-361 - [id number] Implanted:Qty: 1 on 12/26/2010 [place] [facility] Chest [employer] 225-568 / / [id number] Lens Intraoc 17.5 - [id number] - [id number] Implanted:Qty: 1 on 02/07/2019 by Quincy Paiz MD at OR [facility] Right: Eye [employer] 08/14/2023 [id number] / [id number] / [id number] Lens Intraoc 17.0 - [id number] - [id number] Implanted:Qty: 1 on 03/01/2019 by Quincy Paiz MD at OR [facility] Left: Eye [employer]OM[employer] 09/12/2022 [id number] / [id number] / [id number] documented as of this encounter Visit Diagnoses Diagnosis Actinic keratosis documented in this encounter Advance Directives Documents on File Type Date Recorded Patient Electron Beam Operator Expl 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
--- OUTSIDE RECORDS SUMMARY | 2022-11-16 13:18 | External Medical Summary | Summary of Care ---
Author Name Unknown Organization [place] [address] Care Team Providers Care Instructor Kindergarten Name Role Phone Smith Danielle MD Primary Care Provider Reason for Visit * Reason Comments Pt Portal Med Renewal Encounter Details Date Type Department Care Team Description 03/28/2019 Refill Dermatology [facility] [address] [facility] [place] [address] Smith Danielle MD [address] [place] [address] [place] [address] [phone] Actinic keratosis Allergies Active Allergy Reactions Severity [...] Active glipiZIDE XL (GLUCOTROL XL) 10 MG EB99Zyxczyaewyf:Ty pe 2 diabetes mellitus with hemoglobin A1c goal of less than 8.0% ([facility]) TAKE 1 TABLET BY MOUTH [...] Terazosin HCl 2 MG CapsuleIndications :Atherosclerosis of [place] coronary artery of [place] heart without angina pectoris,BPH with obstruction/lower urinary [...] to patient at prior appointment. Atherosclerosis of [place] co ronary artery of [place] heart without angina pectoris 11/30/2001 GENERAL OSTEOARTHROSIS Multiple pulmonary nodules Complex renal cyst Overview: 3.8 cm; L Old [place] (myocardial infarction) documented as of this encounter (statuses as of 03/28/2019) Resolved Problems Problem Noted Date Resolved Date Genomics Cardio Research Other*[id number] 201004/22/2016 Overview: Study Titile: Genomics Markers for Patients with Cardiovascular Disease Project # [id number] PI: Amalia Kingsley MD Please call [phone] with study related questions HTN, goal below 130/80 04/15/2010 2 Overview: Per HTN Protocol #27. Actinic keratosis 04/27/2009 10/12/2015 DM TYPE 2 CAUSING RENAL DZ 01/11/200902/01 Overview: Per Diabetes Taxonomy. Added per DM w/ renal complications protocol #4 DIAB RENAL MANIF ADULT 10/06/2007 10/29/200 9 Overview: Per Diabetes Taxonomy. Added per [...] Diagnosis Code GENERAL OSTEOARTHROSIS M15.9 Atherosclerosis of [place] coronary artery of [place] heart without angina pectoris I25.10 ADVANCE DIRECTIVE INFORMATION Type 2 diabetes mellitus with hemoglobin A1c goal of less than 8.0% ([facility]) E11.9 DYSLIPIDEMIA, GOAL LDL BELOW [...] and hypertension (HCC) E11.22, I12.9, N18.2 Old [place] (myocardial infarction) I25.2 Labs: CREATININE(mg/dL) Lucía Dt/Tm [...] - 03/28/2019 2:45 PM EST Message from [facility]: Cl Ramírez Rodolfo would like a refill of the following medications: tretinoin (RETIN-A) 0.05 % cream [Smith Danielle MD] [facility]: [id number] documented in this encounter Plan of Treatment Upcoming Encounters Date Type Specialty Care Team Description 03/31/2019 Office Visit [facility]C [facility] [address] [phone] 08/04/2019 Office Visit Internal Medicine Smith Danielle MD [address] [place] [address] [place] [address] 11/11/2019 Office Visit [facility] [address] [facility] [address] [phone] 02/14/2020 Imaging Radiology Health Maintenance Due Date [...] of this encounter Implants Implanted Type Area Label Fuser Tender Device Identifier Shelf Expiration Date Model / Serial / Lot Marker Coronary [facility] - [id number] Implanted:Qty: 1 on 12/26/2010 at [place] [facility] [place] N/A: Heart [employer] 10/13/2013 [facility] / / [id number] Sut Steel 6 M654g - [id number] Implanted:Qty: 5 on 12/26/2010 at OR [facility] Chest DO NOT USE 10/14/2015 M654G / / [id number] [facility] 225-241 - [id number] Implanted:Qty: 1 on 12/26/2010 at OR [facility] Chest [employer] 225-241 / / [id number] Lens Intraoc 17.5 - [id number] - [id number] Implanted:Qty: 1 on 02/07/2019 by Quincy Paiz MD at OR [facility] Right: Eye [employer] 08/14/2023 [id number] / [id number] / [id number] Lens Intraoc 17.0 - [id number] - [id number] Implanted:Qty: 1 on 03/01/2019 by Quincy Paiz MD at OR [facility] Left: Eye [employer] 09/12/2022 [id number] / [id number] / [id number] documented as of this encounter Visit Diagnoses Diagnosis Actinic keratosis documented in this encounter Advance Directives Documents on File Type Date Recorded Patient Barrel Racer Expl 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
--- OUTSIDE RECORDS SUMMARY | 2022-11-16 13:18 | External Medical Summary ---
Author Name Unknown Address [facility] [place] [address] Phone Organization K01:[facility] [address] [place] [id number] Laboratory Report Ordering Provider Test Date Status VITOR BRANDT 03/31/2019 08:26:00 Final Observation Date Value Abnormality Reference (Units ) Status BUN 03/31/2019 14:52 27 Above high normal 6-20 (mg/dL) Final Creatinine 03/31/2019 14:52 0.9 0.6-1.2 (mg/ dL) Final E Glom Filt Rate 03/31/2019 14:52 >60.0 >60 Final Performing Location [facility] [address] [facility] [address]
--- OUTSIDE RECORDS SUMMARY | 2022-11-16 13:18 | External Medical Summary ---
Author Name Unknown Address [facility] N [facility] [place] [address] Phone Organization K01:[place] [address] [address] [facility] [place] [address] Laboratory Report Ordering Provider Test Date Status SELENE BRANDTO 03/31/2019 08:26:00 Final Observation Date Value Abnormality Reference (Units ) Status Magnesium 03/31/2019 14:52 2.1 1.5-2.6 (mg/d L) Final Performing Location [address] [address]
--- OUTSIDE RECORDS SUMMARY | 2022-11-16 13:18 | External Medical Summary ---
Author Name Unknown Address [facility] [address] [place] [id number] Phone Organization K01:[place] [address] [address] [place] [id number] Laboratory Report Ordering Provider Test Date Status VITOR BRANDT 03/31/2019 08:26:00 Final Observation Date Value Abnormality Reference (Units ) Status HbA1C 03/31/2019 14:58 7.3 Above high normal 4.0-5 .6 (%) Final Performing Location [facility] [address] [facility] [address]
--- OUTSIDE RECORDS SUMMARY | 2022-11-16 13:18 | External Medical Summary ---
Author Name Unknown Address [facility] [address] [facility] [place] [address] Phone Organization K01:[place] [address] [address] [place] [id number] Laboratory Report Ordering Provider Test Date Status VITOR BRANDT 03/31/2019 08:26:00 Final Observation Date Value Abnormality Reference (Units ) Status WBC, Total 03/31/2019 14:52 5.27 4.00-10.80 (K/uL) Final RBC 03/31/2019 14:52 4.33 Below low normal 4.50-5.25 (M/uL) Final Hemoglobin 03/31/2019 14:52 14.4 14.0-16.8 (g/dL) Final HCT 03/31/2019 14:52 42.3 40.0-48.4 (%) Final MCV 03/31/2019 14:52 97.7 82.0-99.5 (fL) Final MCH 03/31/2019 14:52 33.3 27.0-34.0 (pg) Final MCHC 03/31/2019 14:52 34.0 32.0-36.0 (g/dL) Final RDW 03/31/2019 14:52 12.4 11.5-15.5 (%) Final Platelets 03/31/2019 14:52 179 140-400 (K/uL) Final MPV 03/31/2019 14:52 10.2 6.6-11.1 (fL) Final nRBC/100 WBC Bld Auto-Rto 03/31/2019 14:52 0 0 (/100 WBCs) Final Performing Location [address] [address]
--- OUTSIDE RECORDS SUMMARY | 2022-11-16 13:18 | External Medical Summary | Summary of Care ---
Author Name Unknown Organization [place] [address] Care Team Providers Care Clinical Coder Name Role Phone Smith Danielle MD Primary Care Provider [phone] Reason for Visit * Reason Comments Follow Up pt here for a upper body skin check- denies new or changing nevi. Encounter Details Date Type Department Care Team Description 03/23/2019 Office Visit Dermatology [facility] [address] [place] [address] Kim Kong MD [address] [place] [address] [phone] Scar*; Hx of nonmelanoma skin cancer; Hx of actinic keratosis; AK (actinic keratosis) Allergies Active Allergy Reactions Severity Noted Date Comments Acetaminophen Renal complications 04/27/2009 Aspirin 08/13/2000 Stomach pain Cholestyramine 08/13/2000 Kidney pain Atorvastatin Calcium 04/28/2007 cramping Niacin Muscle pain 07/22/2007 Simvastatin Hives 08/13/2000 Ezetimibe 04/28/2007 Cramping ankles, turned feet inward documented as of this encounter (statuses as of 03/23/2019) Medications Medication Sig Dispensed Refills Start Date [...] of less than 8.0% ([facility]) USE ONE LANCET TO TEST BLOOD SUGAR LEVELS TWICE A DAY 300 Each 3 08/24/2018 Active ONETOUCH ULTRA BLUE STRPIndications:Type 2 diabetes mellitus with hemoglobin A1c goal of less than 8.0% ([facility]) USE ONE TEST STRIP TO TEST BLOOD SUGAR LEVELS TWICE A DAY 300 Strip 3 08/24/2018 Active MetFORMIN (GLUCOPHAGE) 1000 MG TabletIndications:Ty pe 2 diabetes mellitus with diabetic nephropathy ([facility]),Type 2 diabetes mellitus with hemoglobin A1c [...] Active glipiZIDE XL (GLUCOTROL XL) 10 MG [id number]:Type 2 diabetes mellitus with hemoglobin A1c goal of less than 8.0% ([facility]) TAKE 1 TABLET BY MOUTH TWICE [...] Terazosin HCl 2 MG CapsuleIndications:A therosclerosis of [place] coronary artery of [place] heart without angina pectoris,BPH with obstruction/lower urinary tract symptoms,Essential hypertension with goal blood pressure less than 140/90 Take 1 Cap by mouth at bedtime. 90 Cap 3 03/21/2019 Active documented as of this encounter (statuses as of 03/23/2019) Active Problems Problem Noted Date Type 2 [...] as of this encounter (statuses as of 03/23/2019) Resolved Problems Problem Noted Date Resolved Date Genomics Cardio Research Other*[id number] 201004/22/2016 Overview: Study Titile: Genomics Markers for Patients with Cardiovascular Disease Project # [id number] PI: Amalia Kingsley MD Please call [phone] with study related questions HTN, goal below [...] as of this encounter (statuses as of 03/23/2019) Immunizations Name Administration Dates Next Due Pneumococcal [...] Travel End documented as of this encounter Progress Notes * Kim Kong MD - 03/23/2019 9:32 PM EST SUBJECTIVE: History of Present Illness: Cl Reynolds is a 78 year old male seen today for follow up - skin check (partial, pt still defers gown). Last Office Visit: 10/04/2018. No new concerns. Still using tretinon, uses on face nightly and lately to R elbow - helping AKs per pt. Hx Efudex. 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 HEME/LYMPH: No new or enlarging lumps or bumps. MEDICA TIONS: Current Outpatient Medications Medication Sig Dispense Refill finasteride (PROSCAR) 5 MG Tablet Take 1 Tab by mouth daily. 90 Tab 1 losartan (COZAAR) 50 MG Tablet Take 1 Tab by mouth 2 times a day. 180 Tab 1 Terazosin HCl 2 MG Capsule Take 1 Cap by mouth at bedtime. 90 Cap 3 glipiZIDE XL (GLUCOTROL XL) 10 MG TB24 TAKE 1 TABLET BY MOUTH TWICE A DAY 180 Tab 1 amLODIPine (NORVASC) 5 MG Tablet TAKE 1 TABLET BY MOUTH TWICE A DAY 180 Tab 1 omeprazole (PRILOSEC) 20 MG CPDR Take 1 Cap by mouth daily. 90 Cap 1 MetFORMIN (GLUCOPHAGE) 1000 MG Tablet TAKE 1 TABLET BY MOUTH TWICE A DAY WITH MEALS 180 Tab 1 freshbagTOSayduck ULTRA BLUE STRP USE ONE TEST STRIP TO TEST BLOOD SUGAR LEVELS TWICE A DAY 300 Strip 3 ONETOUCH ULTRASOFT LANCETS MISC USE ONE LANCET TO TEST BLOOD SUGAR LEVELS TWICE A DAY 300 Each 3 tretinoin (RETIN-A) 0.05 % cream APPLY [...] lids and lips, neck and palpation of scalp, arms completed and are normal except: 1. R forearm - vague pink patches, L superior helix - keratotic pink papule 2. Scars - face ASSESS MENT/PLAN: 1. R ear AK - Cryosurgery explained to the patient, verbal consent obtained, patient, site and procedure verified, time-out called, and then cryotherapy was performed with Liquid Nitrogen via cryo spray unit to 1 lesions. Location noted in physical exam. Post op course explained. Arm AK is vague, pt can use the Efudex instead of tretinoin nightly for 1-2 weeks more, then D/C 2. Scars - Hx NMSC - no evidence of recurrence Discussed sun protection with patient including proper use of sunscreens and protective clothing. ABCDs explained. Follow-up: 6 months skin check and LN exam There were no barriers tolearning and no other pain was related to today's visit. The patient and/or person accompanying patient demonstrates understanding of the visit and treatment. Kim Kong MD 03/23/2019 9:33 PM Ref: SELF[[id number]] NO STREET ADDRESS AVAILABLE None (office) None (fax) PCP: SMITH DANIELLE [address] [place] [address] [place] [address] documented in this encounter Nursing Notes * Shayne Rodríguez, KYLE - 03/23/2019 9:39 AM EST Patient identified by name and date. Chief Complaint Patient presents with Follow Up pt here for a upper body skin check- denies new or changing nevi. Declines gown Patient identified by name and date of . [facility] is a way you can talk to your provider online through e-mail. Would you like to sign up? I can activate it for you? YES documented in this encounter Plan of Treatment Upcoming Encounters Date Type Specialty Care Team Description 03/31/2019 Office Visit Cardiology Alcon Lott PA-C [address] [place] [address] [phone] 08/04/2019 Office Visit Internal Medicine Smith Danielle MD [address] [place] [address] [place] [address] 11/11/2019 Office Visit Dermatology Kim Kong MD [address] [facility] [place] [address] [phone] 02/14/2020 Imaging Radiology Scheduled Orders Name Type Priority Associated Diagnoses Orde r Schedule DESTRUCTION PREMALIGNANT LESION 1ST Procedures Routine AK (actinic keratosis) Ordered: 03/23/2019 Health Maintenance Due Date Last Done Comments [...] of this encounter Implants Implanted Type Area Assessor Device Identifier Shelf Expiration Date Model / Serial / Lot Marker Coronary Am-Sd - [id number] Implanted:Qty: 1 on 12/26/2010 at OR [facility] N/A: Heart [employer] 10/13/2013 AMGM-SD / / [id number] Sut Steel 6 M654g - [id number] Implanted:Qty: 5 on 12/26/2010 at OR [facility] Chest DO NOT USE 10/14/2015 M654G / / [id number] Band Ankur 225-241 - [id number] Implanted:Qty: 1 on 12/26/2010 at OR [facility] Chest [employer] 225-241 / / [id number] Lens Intraoc 17.5 - [id number] - [id number] Implanted:Qty: 1 on 02/07/2019 by Quincy Paiz MD at OR [facility] Right: Eye [employer] 08/14/2023 [id number] / [id number] / [id number] Lens Intraoc 17.0 - [id number] - [id number] Implanted:Qty: 1 on 03/01/2019 by Quincy Paiz MD at OR [facility] Left: Eye [employer] LOMB 09/12/2022 [id number] / [id number] / [id number] documented as of this encounter Visit Diagnoses Diagnosis Scar- Primary Scar condition and fibrosis of skin Hx of nonmelanoma skin cancer Personal history of other malignant neoplasm of skin Hx of actinic keratosis Personal history of diseases of skin and subcutaneous tissue AK (actinic keratosis) Actinic keratosis documented in this encounter Advance Directives Documents on File Type Date Recorded Patient Chairman And Ceo Expl 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
--- OUTSIDE RECORDS SUMMARY | 2022-11-16 13:18 | External Medical Summary | Summary of Care ---
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[facility]); Type 2 diabetes mellitus with hemoglobin A1c goal of less than 8.0% ([facility]) Allergies Active Allergy Reactions Severity Noted Date Comments Acetaminophen Renal complications 04/27/2009 Aspirin 08/13/2000 Stomach pain Cholestyramine 08/13/2000 Kidney pain Atorvastatin Calcium 04/28/2007 cramping Niacin Muscle pain 07/22/2007 Simvastatin Hives 08/13/2000 Ezetimibe 04/28/2007 Cramping ankles, turned feet inward documented as of this encounter (statuses as of 04/19/2019) Medications Medication Sig Dispensed Refills Start Date [...] of less than 8.0% ([facility]) USE ONE LANCET TO TEST BLOOD SUGAR LEVELS TWICE A DAY 300 Each 3 08/24/2018 Active ONETOUCH ULTRA BLUE STRPIndications:T ype 2 diabetes mellitus with hemoglobin A1c goal of less than 8.0% ([facility]) USE ONE TEST STRIP TO TEST BLOOD SUGAR LEVELS TWICE A DAY 300 Strip 3 08/24/2018 Active omeprazole (PRILOSEC) 20 MG CPDRIndications:P eptic ulcer Take 1 Cap by mouth daily. 90 Cap 1 01/21/2019 Active amLODIPine (NORVASC) 5 MG Tablet TAKE 1 TABLET BY MOUTH TWICE A DAY 180 Tab 1 02/03/2019 Active glipiZIDE XL (GLUCOTROL XL) 10 MG NF42Cihrnbtuhfz:T ype 2 diabetes mellitus with hemoglobin A1c goal of less than 8.0% ([facility]) TAKE 1 TABLET BY MOUTH TWICE A DAY 180 Tab 1 02/05/2019 Active losartan (COZAAR) 50 MG TabletIndications :HTN, goal below 140/80 Take 1 Tab by mouth 2 times a day. 180 Tab 1 03/21/2019 Active finasteride (PROSCAR) 5 MG TabletIndications :BPH with obstruction/lower urinary tract symptoms Take 1 Tab by mouth daily. 90 Tab 1 03/21/2019 Active Terazosin HCl 2 MG CapsuleIndication s:Atherosclerosis of [place] coronary artery of [place] heart without angina pectoris,BPH with obstruction/lower urinary tract symptoms,Essentia l hypertension with goal blood pressure less than 140/90 Take 1 Cap by mouth at bedtime. 90 Cap 3 03/21/2019 Active tretinoin (RETIN-A) 0.05 % creamIndications: Actinic keratosis APPLY NIGHTLY TO FACE DIRECTED,CAN MIX WITH PONDS 45 g 5 03/28/2019 Active MetFORMIN (GLUCOPHAGE) 1000 MG TabletIndications :Type 2 diabetes mellitus with diabetic nephropathy (HCC),Type 2 diabetes mellitus with hemoglobin A1c goal of less than 8.0% (HCC) TAKE 1 TABLET BY MOUTH TWICE A DAY WITH MEALS 180 Tab 1 04/19/2019 Active MetFORMIN (GLUCOPHAGE) 1000 MG TabletIndications :Type 2 diabetes mellitus with diabetic nephropathy (HCC),Type 2 diabetes mellitus with hemoglobin A1c goal of less than 8.0% (HCC) TAKE 1 TABLET BY MOUTH TWICE A DAY WITH MEALS 180 Tab 1 10/12/2018 0 Discontinued documented as of this encounter (statuses as of 04/19/2019) Active Problems Problem Noted Date Type 2 [...] to patient at prior appointment. Atherosclerosis of [place] co ronary artery of [place] heart without angina pectoris 11/30/2001 GENERAL OSTEOARTHROSIS Multiple pulmonary nodules Complex renal cyst Overview: 3.8 cm; L Old [place] (myocardial infarction) documented as of this encounter (statuses as of 04/19/2019) Resolved Problems Problem Noted Date Resolved Date Genomics Cardio Research Other*[id number] 201004/22/2016 Overview: Study Titile: Genomics Markers for Patients with Cardiovascular Disease Project # [id number] PI: Amalia Kingsley MD Please call [phone] with study related questions HTN, goal below [...] as of this encounter (statuses as of 04/19/2019) Immunizations Name Administration Dates Next Due Pneumococcal [...] Miscellaneous Notes * Telephone Encounter - Fadi Wilson [facility] - 04/19/2019 4:04 PM EST Signed Prescriptions: Disp Refills MetFORMIN (GLUCOPHAGE) 1000 MG Tablet 180 Tab1 Sig: TAKE 1 TABLET BY MOUTH TWICE A DAY WITH MEALSAuthorizing Provider: SMITH DANIELLE AOrjeanne User: FADI WILSON documented in this encounter Plan of Treatment Upcoming Encounters Date Type Specialty Care Team Description 08/02/2019 Cardiac Studies Cardiac Studies [facility] Anesthesia Technician[address] [place] [address] 08/04/2019 Office Visit Internal Medicine Smith Danielle MD [address] [place] [address] [place] [address] [phone] 09/29/2019 Office Visit [facility]iology [facility] [address] [facility] [address] 11/11/2019 Office Visit Dermatology Kim Kong MD [address] [place] [address] [phone] 02/14/2020 Imaging Radiology Health Maintenance Due Date [...] this encounter Implants Implanted Type Area Quality Technician Fiberglass Device Identifier Shelf Expiration Date Model / Serial / Lot Marker Coronary Am-Sd - [id number] [place]planted:Qty: 1 on 12/26/2010 [place] [facility] [place]A: Heart [employer] 10/13/2013 AM-SD / / [id number] Sut Steel 6 M654g - [id number] Implanted:Qty: 5 on 12/26/2010 [place] [facility] Chest DO NOT USE 10/14/2015 M654G / / [id number] [facility] 225-241 - [id number] Implanted:Qty: 1 on 12/26/2010 [place] [facility] Chest [employer] 225-241 / / [id number] Lens Intraoc 17.5 - [id number] - [id number] Implanted:Qty: 1 on 02/07/2019 by Quincy Paiz MD at OR [facility] Right: Eye [employer]CH [employer] LOMB 08/14/2023 [id number] / [id number] / [id number] Lens Intraoc 17.0 - [id number] - [id number] Implanted:Qty: 1 on 03/01/2019 by Quincy Paiz MD at OR [facility] Left: Eye BAUSCH [employer] LOMB 09/12/2022 [id number] / [id number] / [id number] documented as of this encounter Visit Diagnoses Diagnosis Type 2 diabetes mellitus with diabetic nephropathy (HCC) Type II or unspecified type diabetes mellitus with renal manifestations, not stated as uncontrolled Type 2 diabetes mellitus with hemoglobin A1c goal of less than 8.0% (HCC) documented in this encounter Advance Directives Documents on File Type Date Recorded Patient Food And Beverage Operations Manager Expl 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
--- OUTSIDE RECORDS SUMMARY | 2022-11-16 13:18 | External Medical Summary | Summary of Care ---
Author Name Unknown Organization [place] [address] Care Team Providers Care Claims Supervisor Name Role Phone Smith Orozco MD Primary Care Provider [phone] Reason for Visit * Reason Comments Medication Question Encounter Details Date Type Department Care Team Description 04/04/2019 Telephone Internal Medicine [address] [address] Smith Orozco MD [address] [place] [address] [place] [address] [phone] Medication Question Allergies Active Allergy Reactions Severity [...] hemoglobin A1c goal of less than 8.0% ([facility]) USE ONE LANCET TO TEST BLOOD SUGAR LEVELS TWICE A DAY 300 Each 3 08/24/2018 Active ONETOUCH ULTRA BLUE STRPIndications:Type 2 diabetes mellitus with hemoglobin A1c goal of less than 8.0% ([facility]) USE ONE TEST STRIP TO TEST BLOOD SUGAR LEVELS TWICE A DAY 300 Strip 3 08/24/2018 Active MetFORMIN (GLUCOPHAGE) 1000 MG TabletIndications:Ty pe 2 diabetes mellitus with diabetic nephropathy ([facility]),Type 2 diabetes mellitus with hemoglobin A1c goal of less than 8.0% ([facility]) TAKE 1 TABLET BY MOUTH TWICE A DAY WITH MEALS 180 Tab 1 10/12/2018 Active omeprazole (PRILOSEC) 20 MG CPDRIndications:Pept ic ulcer Take 1 Cap by mouth daily. 90 Cap 1 01/21/2019 Active amLODIPine (NORVASC) 5 MG Tablet TAKE 1 TABLET BY MOUTH TWICE A DAY 180 Tab 1 02/03/2019 Active glipiZIDE XL (GLUCOTROL XL) 10 MG IS00Nlpfexbpxtb:Type 2 diabetes mellitus with hemoglobin A1c goal of less than 8.0% ([facility]) TAKE 1 TABLET BY MOUTH TWICE [...] Terazosin HCl 2 MG CapsuleIndications:A therosclerosis of [place] coronary artery of [place] heart without angina pectoris,BPH with obstruction/lower urinary [...] to patient at prior appointment. Atherosclerosis of [place] co ronary artery of [place] heart without angina pectoris 11/30/2001 GENERAL OSTEOARTHROSIS Multiple pulmonary nodules Complex renal cyst Overview: 3.8 cm; L Old [place] (myocardial infarction) documented as of this encounter (statuses as of 04/04/2019) Resolved Problems Problem Noted Date Resolved Date Genomics Cardio Research Other*[id number] 201004/22/2016 Overview: Study Titile: Genomics Markers for Patients with Cardiovascular Disease Project # [id number] PI: Amalia Kingsley MD Please call [phone] with study related questions HTN, goal below [...] encounter Miscellaneous Notes * Telephone Encounter - Erick Lopez, [facility] - 04/04/2019 6:04 PM EST Actinic keratosis [L57.0] Given to Andrew at [facility]. Prior auth questions bypassable. Approved. Thanks and have a great day, Erick Lopez Clinical Pharmacist Pharmacy Refill Call Center 04/04/2019, 6:05 PM * Telephone Encounter - Mateo Oshea CPhT - 04/04/2019 6:01 PM EST Pt insurance needing clinical information Retin-A [facility]red to [facility] to discuss ThanksJeremy ([facility] Graduate Internship Refill Call Center 04/04/2019, 6:02 PM documented in this encounter Plan of Treatment Upcoming Encounters Date Type Specialty Care Team Description 08/02/2019 Cardiac Studies Cardiac Studies [address] [place] [address] 08/04/2019 Office Visit Internal Medicine Smith Orozco MD [address] [place] [address] [place] [address] 09/29/2019 Office Visit Cardiology Alcon Lott PA-C [address] [facility] [place] [address] 11/11/2019 Office Visit Dermatology Kim Kong MD [address] [facility] [place] [address] [phone] 02/14/2020 Imaging Radiology Health Maintenance Due Date [...] of this encounter Implants Implanted Type Area Manager Private Device Identifier Shelf Expiration Date Model / Serial / Lot Marker Coronary [facility]-Sd - [id number] Implanted:Qty: 1 on 12/26/2010 at [place] [facility] N/A: Heart [employer] 10/13/2013 [facility] / / [id number] Sut Steel 6 M654g - [id number] Implanted:Qty: 5 on 12/26/2010 at [place] [facility] Chest DO NOT USE 10/14/2015 M654G / / [id number] [facility] 225-241 - [id number] Implanted:Qty: 1 on 12/26/2010 at [place] [facility] Chest [employer] 225-241 / / [id number] Lens Intraoc 17.5 - [id number] - [id number] Implanted:Qty: 1 on 02/07/2019 by Quincy Paiz MD at OR [facility] Right: Eye [employer]OM[employer] 08/14/2023 [id number] / [id number] / [id number] Lens Intraoc 17.0 - [id number] - [id number] Implanted:Qty: 1 on 03/01/2019 by Quincy Paiz MD at OR [facility] Left: Eye [employer]OM[employer] 09/12/2022 [id number] / [id number] / [id number] documented as of this encounter Advance Directives Documents on File Type Date Recorded 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
--- OUTSIDE RECORDS SUMMARY | 2022-11-16 13:18 | External Medical Summary | Summary of Care ---
Author Name Unknown Organization [facility] [address] Care Team Providers Care Semiconductor Development Technician Name Role Phone Smith Danielle MD Primary Care Provider + [phone] Reason for Visit * Reason Comments Pt Portal Med Renewal Encounter Details Date Type Department Care Team Description 03/18/2019 Refill Internal Medicine [address] [address] Stefania Ibarra PA-C [address] [place] [address] [place] [id number] BPH with obstruction/lower urinary tract symptoms Allergies [...] Active glipiZIDE XL (GLUCOTROL XL) 10 MG [id number]:Ty pe 2 diabetes mellitus with hemoglobin A1c goal of less than 8.0% ([facility]) TAKE 1 TABLET BY MOUTH TWICE A DAY 180 Tab 1 02/05/2019 Active finasteride (PROSCAR) 5 MG TabletIndications: BPH with obstruction/lower urinary tract symptoms Take 1 Tab by mouth daily. 90 Tab 1 03/21/2019 Active Terazosin HCl 2 MG CapsuleIndications :Atherosclerosis of [place] coronary artery of [place] heart without angina pectoris,BPH with obstruction/lower urinary [...] to patient at prior appointment. Atherosclerosis of [place] co ronary artery of [place] heart without angina pectoris 11/30/2001 GENERAL OSTEOARTHROSIS Multiple pulmonary nodules Complex renal cyst Overview: 3.8 cm; L Old CA (myocardial infarction) documented as of this encounter (statuses as of 03/21/2019) Resolved Problems Problem Noted Date Resolved Date Genomics Cardio Research Other*[id number] 201004/22/2016 Overview: Study Titile: Genomics Markers for Patients with Cardiovascular Disease Project # [id number] PI: Amalia Kingsley MD Please call [phone] with study related questions HTN, goal below [...] 10:23 AM EST Signed Prescriptions: Disp Refills finasteride (PROSCAR) 5 MG Tablet 90 Tab 1 Sig: Take 1 Tab by mouth daily. Authorizing Provider: SMITH DANIELLE * Telephone Encounter - Kasey Rosales LPN - 03/21/2019 9:35 AM EST Pending Prescriptions: Disp Refills finasteride (PROSCAR) 5 MG Tablet 90 Tab 1 Sig: Take 1 Tab by mouth daily. Last Office Visit: 02/01/2019 Next Office Visit: 08/04/2019 Scheduled Provider(s): Smith Danielle MD Last date the medication was ordered: 09/03/18 Patient Active Problem List Diagnosis Code GENERAL OSTEOARTHROSIS M15.9 Atherosclerosis of [place] coronary artery of [place] heart without angina pectoris I25.10 ADVANCE DIRECTIVE INFORMATION Type 2 diabetes mellitus with hemoglobin A1c goal of less than 8.0% ([facility]) E11.9 DYSLIPIDEMIA, GOAL LDL BELOW 70 E78.5 [...] I12.9, N18.2 Old CA (myocardial infarction) I25.2 Labs: CREATININE(mg/dL) Lucía Dt/Tm [...] Encounter - Kasey Rosales LPN - 03/21/2019 9:35 AM EST Message from [facility] [facility]: Cl Reynolds would like a refill of the following medications: finasteride (PROSCAR) 5 MG Tablet [MAKI BoneC] Preferred pharmacy: [id number] documented in this encounter Plan of Treatment Upcoming Encounters Date Type Specialty Care Team Description 03/23/2019 [facility] [address] [phone] 03/31/2019 Office Visit Cardiology Alcon Lott PA-C [address] [facility] [place] [address] 08/04/2019 Office Visit Internal Medicine Smith Danielle MD [address] [place] [address] [place] [address] 02/14/2020 Imaging Radiology Health [...] of this encounter Implants Implanted Type Area Tower Technician Device Identifier Shelf Expiration Date Model / Serial / Lot Marker Coronary [facility] - [id number] Implanted:Qty: 1 on 12/26/[address] [facility] N/A: Heart [employer] 10/13/2013 [facility] / / [id number] Sut Steel 6 M654g - [id number] Implanted:Qty: 5 on 12/26/[address] [facility] Chest DO NOT USE 10/14/2015 M654G / / [id number] Alonso [place] 225-241 - [id number] Implanted:Qty: 1 on 12/26/[address] [facility] Chest [employer] 225-241 / / [id number] Lens Intraoc 17.5 - [id number] - [id number] Implanted:Qty: 1 on 02/07/2019 by Quincy Paiz MD at OR [facility] Right: Eye [employer] 08/14/2023 [id number] / [id number] / [id number] Lens Intraoc 17.0 - [id number] - [id number] Implanted:Qty: 1 on 03/01/2019 by Quincy Paiz MD at OR [facility] Left: Eye [employer]OM[employer] 09/12/2022 [id number] / [id number] / [id number] documented as of this encounter Visit Diagnoses Diagnosis BPH with obstruction/lower urinary tract symptoms Hypertrophy of prostate with urinary obstruction and other lower urinary tract symptoms (LUTS) documented in this encounter Advance Directives Documents on File Type Date Recorded Patient Hide Dropper Expl 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
--- OUTSIDE RECORDS SUMMARY | 2022-11-16 13:18 | External Medical Summary | Summary of Care ---
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 Name Role Phone Smith Orozco MD Primary Care Provider [phone] Reason for Referral * Precert (Routine) Status Reason Specialty Diagnoses / Procedures Referred By Contact Referred To Contact Pending Review Precert Cardiac Studies Diagnoses Nonrheumatic aortic valve stenosis Procedures ECHO, COMPLETE (2D), TRANS-THORACIC Alcon Lott PA-C [address] [place] [address] Reason for Visit * Reason Comments Follow Up Encounter Details Date Type Department Care Team Description 03/31/2019 Office Visit Cardiology [address] [address] Alcon Lott PA-C [address] [place] [address] [phone] Atherosclerosis of [place] coronary artery of [place] heart without angina pectoris*; Ischemic cardiomyopathy; Essential hypertension with goal blood pressure less than 140/90; Asymptomatic bilateral carotid artery stenosis; Statin intolerance; Bradycardia; 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); Dyslipidemia, goal LDL below 70; Bilateral carotid bruits; Hypomagnesemia; HTN, goal below 130/80; Dizziness; Nonrheumatic aortic valve stenosis Allergies Active Allergy Reactions Severity Noted Date Comments Acetaminophen Renal complications 04/27/2009 Aspirin 08/13/2000 Stomach pain Cholestyramine 08/13/2000 Kidney pain Atorvastatin Calcium 04/28/2007 cramping Niacin Muscle pain 07/22/2007 Simvastatin Hives 08/13/2000 Ezetimibe 04/28/2007 Cramping ankles, turned feet inward documented as of this encounter (statuses as of 03/31/2019) Medications Medication Sig Dispensed Refills Start Date [...] Active glipiZIDE XL (GLUCOTROL XL) 10 MG [id number]:Type 2 diabetes mellitus with hemoglobin A1c goal [...] Terazosin HCl 2 MG CapsuleIndications:A therosclerosis of [place] coronary artery of [place] heart without angina pectoris,BPH with obstruction/lower urinary tract symptoms,Essential hypertension with goal blood pressure less than 140/90 Take 1 Cap by mouth at bedtime. 90 Cap 3 03/21/2019 Active tretinoin (RETIN-A) 0.05 % creamIndications:Act inic keratosis APPLY NIGHTLY TO FACE DIRECTED,CAN MIX WITH PONDS 45 g 5 03/28/2019 Active documented as of this encounter (statuses as of 03/31/2019) Active Problems Problem Noted Date Type 2 [...] to patient at prior appointment. 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) documented as of this encounter (statuses as of 03/31/2019) Resolved Problems Problem Noted Date Resolved Date Genomics Cardio Research Other*[id number] 201004/22/2016 Overview: Study Titile: Genomics Markers for Patients with Cardiovascular Disease Project # [id number] PI: Amalia Kingsley MD Please call [phone] with study related questions HTN, goal below [...] as of this encounter (statuses as of 03/31/2019) Immunizations Name Administration Dates Next Due Pneumococcal [...] Travel End documented as of this encounter Last Filed Vital Signs Vital Sign Reading Time Taken Comments Blood Pressure 130/66 03/31/2019 7:52 AM EST Pulse 64 03/31/2019 7:52 AM EST Temperature - - Respiratory Rate 14 03/31/2019 7:52 AM EST Oxygen Saturation - - Inhaled Oxygen Concentration - - Weight 64.8 kg (142 lb 14.4 oz) 03/31/2019 7:52 AM EST Height - - Body Mass Index 24.53 03/01/2019 6:34 AM EST documented in this encounter Progress Notes * Alcon Lott PA-C - 03/31/2019 7:52 AM EST History of Present Illness: Mr. Reynolds is a very pleasant 78 year old male here today for cardiology follow-up evaluation Two spells. Episode of dizziness in January. He notes putting in a water line, digging and shoveling in a trench all morning. He notes getting real dizzy for about 10 minutes. Notes sitting down, taking a break, and feeling better. BP and blood glucose were OK. The next day he also got dizzy with positional change. Notes not drinking enough water. + Constipation. + Concentrated urine. On 02/07/2019, the day after cataract extraction, while sitting at home watching television on evening, he had pain in the left arm. He notes that it felt sore, somewhat funny in the left shoulder. SBP up to 179 at that time. He notes taking his PM medications at that time with improvement. He notes then calling in a night and feeling well thereafter. He has been active to his level of preference since without difficulty. No exertional chest pain. No palpitations. No increased exertional shortness of breath. No overt change in exercise tolerance. Stable mild left greater than right lower exremity edema that is nonexistent in the AM. No orthopnea or PND. No syncope. No fevers or chills. No reported melena or hematochezia. Patient Active Problem List Diagnosis Code GENERAL OSTEOARTHROSIS M15.9 Atherosclerosis of [place] coronary artery of [place] heart without angina pectoris I25.10 ADVANCE DIRECTIVE INFORMATION Type 2 diabetes mellitus with hemoglobin A1c goal of less than 8.0% ([facility]) E11.9 DYSLIPIDEMIA, GOAL LDL BELOW [...] I12.9, N18.2 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) I25.2 Past Surgical History: Inguinal hernia. CABG Social History: From [place]. Lives in [place] with his . Reformed smoker. 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 Review of patient's allergies indicates: Allergen Reactions Acetaminophen Renal complications Aspirin Stomach pain Cholestyramine Kidney pain Lipitor [Atorvastatin Calcium] cramping Niacin Muscle pain Simvastatin Hives Zetia [Ezetimibe] Cramping ankles, turned feet inward Current Outpatient Medications Medication Sig Dispense Refill tretinoin (RETIN-A) 0.05 % cream APPLY NIGHTLY TO FACE DIRECTED,CAN MIX WITH PONDS 45 g 5 finasteride (PROSCAR) 5 MG Tablet Take 1 [...] A DAY WITH MEALS 180 Tab 1 MULTI-VITAMIN PO TABS one pill each day SB LOW DOSE ASA EC 81 MG PO TBEC Take by mouth. Indications: pmond, day thursday MAGNESIUM OXIDE 200 MG PO TABS one tablet twice a day 60 Tab 5 GAVI 180 MG PO TABS One pill by mouth once a day for allergies (Patient taking differently: Take by mouth. Indications: as needed) 30 5 ONETOUCH ULTRA BLUE STRP USE ONE TEST STRIP TO TEST BLOOD SUGAR LEVELS TWICE A DAY 300 Strip 3 ONETOUCH ULTRASOFT LANCETS MISC USE ONE LANCET TO TEST BLOOD SUGAR LEVELS TWICE A DAY 300 Each 3 PHYSICAL EXAMINATION BP 130/66 | Pulse 64 | Resp 14 | Wt 142 lbs 14.4 oz (64.819kg) | BMI 24.53 kg/m | BSA 1.71 m | General: [...] deficits. Pulses: radial=2/4, posterior tibial=2/4. Data: August 03, 2018 TTE Interpretation Summary (as per Dr. Dietrich): The wall thickness is normal in segments with normal wall motion. There is a large sized apical, septal, anteroseptal, inferior, and posterior wall motion abnormality with hypokinesis to akinesis of the segments. The qualitative LV ejection fraction is 40-44% (mildly reduced). The aortic valve is mildly calcified. Mild aortic valve stenosis is present. Mild aortic valve regurgitation is present. Mild mitral regurgitation is present.Compared to the prior study dated 02/27/2017 there has been no significant interval change. Component 08/19/2018 HOURS FASTING NOT FASTING TRIGLYCERIDES 95 CHOLESTEROL 176 HDL-CHOLESTEROL 55 CHOL/HDL RATIO 3.2 LDL (CALCULATED) 102 ASSESSMENT: 1. Episode of dizziness in January suggestive of volume depletion, symptomatic orthostasis. 2. Episode of resting left arm/shouder pain in January, as detailed above. 3. Labile hypertension. Blood pressure has been well controlled on home monitoring and again here today. 4. ASCVD 1. Prior inferior AK in 1994 managed at [facility]. 2. Catheterization in 2010 [...] marginal. 4. Ischemic cardiomyopathy, LVEF 40-44%. 5. Normovolemic. 5. Valve disease 1. Mild aortic stenosis and insufficiency, mild mitral regurgitation 2. Compensated volume status 6. Bradycardia. Beta-layne intolerance. 7. Prior palpitations in association with sensed ectopy, quiescent. 8. Dyslipidemia. Documented statin intolerance and Zetia. 9. Type II diabetes mellitus. Followed by PCP. 10. Carotid artery disease. History of prior TIA with transient leg weakness. January 2019 CarotidDuplex with 50 to 69% CRISTI stenosis, mild (<50%) LICA. 11. BPH RECOMMENDATIONS/PLAN: Same medications for now. Increase free water intake. Laboratory work today. Zio monitor to be obtained if/when recurrent dizziness spells occur. Repeat resting echocardiographyin July. Repeat carotid duplex in January 2020. Routine cardiology follow-up in 6 months or as needed. ER with emergencies. Alcon Lott PA-C Department of Cardiology documented in this encounter Nursing Notes * Suzan Alcantar RN - 03/31/2019 7:54 AM EST Examination Room: 2 Name: Cl Reynolds Date of : (1940). Reason for Visit: Follow up Interim Hospitalization(s): No Problems/Concerns: Few months ago noting episode of extreme dizziness/pre- syncope. Also noting episode of left arm pain for about 30 minutes in January with elevated bp response. Chest Pain/SOB: Denies chest pain/discomfort or shortness of breath. [facility] is a way you can talk to your provider online through e-mail. Would you like to sign up? I can activate it for you? ALREADY ACTIVE documented in this encounter Plan of Treatment Upcoming Encounters Date Type Specialty Care Team Description 08/02/2019 Cardiac Studies Cardiac Studies [facility] [place] [address] [phone] 08/04/2019 Office Visit Internal Medicine Smith Orozco MD [address] [place] [address] [place] [address] [phone] 09/29/2019 Office Visit Cardiology Alcon Lott PA-C [address] [facility] [place] [address] [phone] 11/11/2019 Office Visit Dermatology Kim Kong MD [address] [facility] [place] [address] [phone] 02/14/2020 Imaging Radiology Pending Results Name Type Priority Associated Diagnoses Date /Time CBC Lab Routine HTN, goal below 130/80 03/31/2019 8:26 AM EST COMPR METAB PANEL Lab Routine HTN, goal below 130/80 03/31/2019 8:26 AM EST MAGNESIUM Lab Routine Hypomagnesemia 03/31/2019 8:26 AM EST HEMOGLOBIN A1C Lab Routine Dizziness 03/31/2019 8:26 AM EST Scheduled Orders Name Type Priority Associated Diagnoses Orde r Schedule CBC Lab Routine HTN, goal below 130/80 Expected: 03/31/2019 (Approximate), Expires: 06/30/2019 COMPR METAB PANEL Lab Routine HTN, goal below 130/80 Expected: 03/31/2019 (Approximate), Expires: 06/30/2019 MAGNESIUM Lab Routine Hypomagnesemia Expected: 03/31/2019 (Approximate), Expires: 06/30/2019 ECHO, COMPLETE (2D), TRANS-THORACIC Echocardiology Routine Nonrheumatic aortic valve stenosis Expected: 07/30/2019, Expires: 09/29/2019 HEMOGLOBIN A1C Lab Routine Dizziness Expected: 03/31/2019 (Approximate), Expires: 06/30/2019 Health Maintenance Due Date Last Done Comments [...] of this encounter Implants Implanted Type Area Baller Tender Device Identifier Shelf Expiration Date Model / Serial / Lot Marker Coronary [facility] - [id number] Implanted:Qty: 1 on 12/26/2010 at [place] [facility] N/A: Heart [employer] 10/13/2013 [facility] / / [id number] Sut Steel 6 M654g - [id number] Implanted:Qty: 5 on 12/26/2010 at [place] [facility] Chest DO NOT USE 10/14/2015 M654G / / [id number] lAonso Pascual 225-252 - [id number] Implanted:Qty: 1 on 12/26/2010 at [place] [facility] Chest [employer] 225-171 / / [id number] Lens Intraoc 17.5 - [id number] - [id number] Implanted:Qty: 1 on 02/07/2019 by Quincy Paiz MD at OR [facility] Right: Eye [employer] 08/14/2023 [id number] / [id number] / [id number] Lens Intraoc 17.0 - [id number] - [id number] Implanted:Qty: 1 on 03/01/2019 by Quincy Paiz MD at OR [facility] Left: Eye [employer] 09/12/2022 [id number] / [id number] / [id number] documented as of this encounter Visit Diagnoses Diagnosis Atherosclerosis of [place] coronary artery of [place] heart without angina pectoris- Primary Ischemic cardiomyopathy Other specified forms of chronic ischemic heart disease Essential hypertension with goal blood pressure less than 140/90 Asymptomatic bilateral carotid artery stenosis Occlusion and stenosis of multiple and bilateral precerebral arteries without mention of cerebral infarction Statin intolerance Other drug allergy Bradycardia Other specified cardiac dysrhythmias 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) Old myocardial infarction Dyslipidemia, goal LDL below 70 Other and unspecified hyperlipidemia Bilateral carotid bruits Hypomagnesemia Disorders of magnesium metabolism HTN, goal below 130/80 Unspecified essential hypertension Dizziness Dizziness and giddiness Nonrheumatic aortic valve stenosis Aortic valve disorders documented in this encounter Advance Directives Documents on File Type Date Recorded Patient Vp Ancillary Expl 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
--- OUTSIDE RECORDS SUMMARY | 2022-11-16 13:19 | External Medical Summary | Summary of Care ---
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 Name Role Phone Smith Danielle MD Primary Care Provider Reason for Visit * Reason Comments eRx-Medication Refill Encounter Details Date Type Department Care Team Description 10/11/2018 Refill Internal Medicine [address] [address] Smith Danielle MD [address] [place] [address] [place] [address] [phone] Type 2 diabetes mellitus with diabetic nephropathy ([facility]); Type 2 diabetes mellitus with hemoglobin A1c goal of less than 8.0% ([facility]ER[facility]) Allergies Active Allergy Reactions Severity Noted Date Comments Acetaminophen Renal complications 04/27/2009 Aspirin 08/13/2000 Stomach pain Cholestyramine 08/13/2000 Kidney pain Atorvastatin Calcium 04/28/2007 cramping Niacin Muscle pain 07/22/2007 Simvastatin Hives 08/13/2000 Ezetimibe 04/28/2007 Cramping ankles, turned feet inward documented as of this encounter (statuses as of 10/12/2018) Medications Medication Sig Dispensed Refills Start Date End Date Status GAVI 180 MG PO TABSIndications:Al lergic rhinitis One pill by mouth once a day for allergies 30 5 07/23/2009 Active MAGNESIUM OXIDE 200 MG PO TABSIndications:Cr amp in limb one tablet twice a day 60 Tab 5 07/16/2010 Active SB LOW DOSE ASA EC 81 MG PO TBEC one tab three times weekly 0 Active MULTI-VITAMIN PO TABS one pill each day 0 Active tretinoin (RETIN-A) 0.05 % creamIndications:A ctinic keratosis APPLY NIGHTLY TO FACE DIRECTED,CAN MIX WITH PONDS 45 g 5 03/25/2017 Active Terazosin HCl 2 MG CapsuleIndications :Atherosclerosis of [place] coronary artery of [place] heart without angina pectoris,BPH with obstruction/lower urinary tract symptoms,Essential hypertension with goal blood pressure less than 140/90 TAKE 1 CAP BY MOUTH AT BEDTIME. 90 Cap 3 02/16/2018 Active glimepiride (AMARYL) 1 MG TabletIndications: Type 2 diabetes mellitus with stage 2 chronic kidney disease, without long-term current use of insulin (HCC) Take 1 Tab by mouth daily. with the first main meal of the day for diabetes 90 Tab 1 02/19/2018 Active omeprazole (PRILOSEC) 20 MG CPDRIndications:Pe ptic ulcer TAKE ONE CAPSULE BY MOUTH DAILY ONE HOUR PRIOR TO THE FIRST MEAL OF THE DAY 90 Cap 1 07/19/2018 Active glipiZIDE XL (GLUCOTROL XL) 10 MG [id number]:Ty pe 2 diabetes mellitus with hemoglobin A1c goal of less than 8.0% (HCC) Take 1 Tab by mouth 2 times a day. 180 Tab 1 08/04/2018 Active amLODIPine (NORVASC) 5 MG Tablet Take 1 Tab by mouth 2 times a day. 180 Tab 1 08/13/2018 Active ONETOUCH ULTRASOFT LANCETS MISCIndications:Ty pe 2 [...] WITH MEALS 180 Tab 1 10/12/2018 Active MetFORMIN (GLUCOPHAGE) 1000 MG TabletIndications: Type 2 diabetes mellitus with diabetic nephropathy (HCC),Type 2 diabetes mellitus with hemoglobin A1c goal of less than 8.0% (HCC) TAKE 1 TABLET BY MOUTH TWICE A DAY WITH MEALS 180 Tab 1 04/21/2018 9 Discontinued documented as of this encounter (statuses as of 10/12/2018) Active Problems Problem Noted Date Type 2 [...] 70 02/23/20 09 Overview: Per Lipid Taxonomy. DM TYPE 2 CAUSING RENAL DZ 01/11/2009 Overview: Per Diabetes Taxonomy. Added per DM w/ renal complications protocol #4 Type 2 diabetes mellitus with hemoglobin A1c goal of less than 8.0% 01/11/2009 Overview: Per Diabetes Taxonomy. ICD-10 update of inactive term ADVANCE DIRECTIVE INFORMATION 12/23/2006 Overview: No, Advance Directive brochure given to patient at prior appointment. Atherosclerosis of [place] co ronary artery of [place] heart without angina pectoris 11/30/2001 GENERAL OSTEOARTHROSIS Multiple pulmonary nodules Complex renal cyst Overview: 3.8 cm; L Old [place] (myocardial infarction) documented as of this encounter (statuses as of 10/12/2018) Resolved Problems Problem Noted Date Resolved Date [employer] Other*[id number] 201004/22/2016 Overview: Study Titile: Genomics Markers for Patients with Cardiovascular Disease Project # [id number] PI: Amalia Kingsley MD Please call [phone] with study related questions HTN, goal below 130/80 04/15/2010 2 Overview: Per HTN Protocol #27. Actinic keratosis 04/27/2009 10/12/2015 DIAB RENAL MANIF ADULT 10/06/2007 9 Overview: Per Diabetes Taxonomy. Added per DM w/ renal complications protocol #4 Seborrheic dermatitis 01/24/2002 10/12/2015 Solar lentigo 10/27/2001 04/30/2016 ACUTE NC; INFERIOR WALL;SUBSEQUENT EPISODE CARE 06/21/2013 HYPERTENSION NOS [...] as of this encounter (statuses as of 10/12/2018) Immunizations Name Administration Dates Next Due Pneumococcal Conjugate Vacc, 13 Valent (Prevnar) 10/16/2015 Pneumococcal Polysaccharide PPV23 (Pneumovax) 12/15/2006,04/01/2002 Seasonal Influenza, Quadriva lent, No Preserve, 6 Mons & Above, IM 11/17/2017 Seasonal Influenza, Quadriva lent, No Preserve, IM 11/21/2016,11/27/2015 Seasonal Influenza, Trivalen t, with Preserve, 3yr [...] Notes * Telephone Encounter - Matthew Mobley RPh - 10/12/2018 9:18 AM EDT Signed Prescriptions: Disp Refills MetFORMIN (GLUCOPHAGE) 1000 MG Tablet 180 Tab1 Sig: TAKE 1 TABLET BY MOUTH TWICE A DAY WITH MEALSAuthorizing Provider: SMITH DANIELLE User: MATTHEW MOBLEY- * Telephone Encounter - Matthew Mobley RPh - 10/12/2018 9:17 AM EDT Pending Prescriptions: Disp Refills MetFORMIN (GLUCOPHAGE) 1000 MG Tablet [Ph*180 Tab1 Sig: TAKE 1 TABLET BY MOUTH TWICE A DAY WITH MEALS Last Office Visit: 08/19/2018 Next Office Visit: 02/21/2019 Scheduled Provider(s): Smith Danielle MD If no future appointments scheduled, and last appointment is greater than a year ago, please schedule patient for a follow-up appointment Last date the medication was ordered: 04/21/18 Patient Phone Numbers Labs: Lab Results Component Value Date/Time CREAT 1.1 03/18/2018 08:29 AM POTASSIUM 4.2 03/18/2018 08:29 AM TSH 3.81 04/28/2018 09:11 AM LDLCALC 102 08/19/2018 08:36 AM LDLDIRECT 101 02/04/2011 04:00 PM ALT 16 03/18/2018 08:29 AM HGBA1C 6.9 (H) 08/19/2018 08:36 AM documented in this encounter Plan of Treatment Upcoming Encounters Date Type Specialty Care Team Description 02/08/2019 Imaging Radiology 02/21/2019 Office Visit Internal Medicine Smith Danielle MD [address] [place] [address] [place] [address] [phone] 03/23/2019 Office Visit Dermatology Kim Kong MD [address] [place] [address] [phone] 03/31/2019 Office Visit Cardiology Alcon Lott PA-C [address] [facility] [place] [address] [phone] Health Maintenance Due Date Last Done Comments Influenza Vaccine (FLU shot) (#1) 2018 11/17/2017, 11/21/2016, 11/27/2015, Additional history exists DIABETES-EYE EXAM 11/05/2018 11/05/2017, , 09/26/2014, Additional history exists DIABETES-FOOT EXAM 02/18/2019 02/18/2018, 1 04/01/2016, 01/24/2016, Additional history exists DIABETES-HGBA1C EVERY 6 MONTHS 02/18/2019 08/19/2018, 02/18/2018, 08/12/2017, Additional history exists Yearly B-12 08/20/2019 08/19/2018, 08/12/2017 DTaP,Tdap,and Td Vaccines (2 - Td) 08/05/2022 08/05/2012, 03/16/2003 PNEUMOCOCCAL ADULT 65 YRS AND OVER Completed 10/16/2015, 12/15/2006, 04/01/2002 MENINGOCOCCAL (MENACTRA) Aged Out No longer eligible based on patient's age to complete this topic documented as of this encounter Implants Implanted Type Area Degreaser Device Identifier Shelf Expiration Date Model / Serial / Lot Marker Coronary Am-Sd - [id number] Implanted:Qty: 1 on 12/26/2010 at OR [facility] N/A: Heart [employer] 10/13/2013 AMGM-SD / / [id number] Sut Steel 6 M654g - [id number] Implanted:Qty: 5 on 12/26/2010 at OR [facility] Chest DO NOT USE 10/14/2015 M654G / / [id number] 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
--- OUTSIDE RECORDS SUMMARY | 2022-11-16 13:19 | External Medical Summary | Summary of Care ---
Author Name Unknown Organization [place] [address] Care Team Providers Care Assembly Person Name Role Phone Smith Orozco MD Primary Care Provider + [phone] Reason for Visit * Reason Comments Left Without Being Seen Encounter Details Date Type Department Care Team Description 01/24/2019 Office Visit Internal Medicine [address] [place] [address] Lena Mckeon PA-C [address] [place] [address] [place] [phone] DM type 2 nursing care encounter ([facility])*; Left without being seen Allergies Active Allergy Reactions Severity Noted Date Comments Acetaminophen Renal complications 04/27/2009 Aspirin 08/13/2000 Stomach pain Cholestyramine 08/13/2000 Kidney pain Atorvastatin Calcium 04/28/2007 cramping Niacin Muscle pain 07/22/2007 Simvastatin Hives 08/13/2000 Ezetimibe 04/28/2007 Cramping ankles, turned feet inward documented as of this encounter (statuses as of 01/24/2019) Medications Medication Sig Dispensed Refills Start Date End Date Status GAVI 180 MG PO TABSIndications:[place] rgic rhinitis One pill by mouth once a day for allergies 30 5 07/23/2009 Active MAGNESIUM OXIDE 200 MG PO TABSIndications:Cram p [...] 5 03/25/2017 Active Terazosin HCl 2 MG CapsuleIndications:A therosclerosis of [place] coronary artery of [place] heart without angina pectoris,BPH with obstruction/lower urinary tract symptoms,Essential hypertension with goal blood pressure less than 140/90 TAKE 1 CAP BY MOUTH AT BEDTIME. 90 Cap 3 02/16/2018 Active glimepiride (AMARYL) 1 MG TabletIndications:Ty pe 2 diabetes mellitus with stage 2 chronic kidney disease, without long-term current use of insulin (HCC) Take 1 Tab by mouth daily. with the first main meal of the day for diabetes 90 Tab 1 02/19/2018 Active Additional information Patient not taking. Reported on 01/24/2019 9:49 AM glipiZIDE XL (GLUCOTROL XL) 10 MG [id number]:Type 2 diabetes mellitus with hemoglobin A1c goal of less than 8.0% (HCC) Take 1 Tab by mouth 2 times a day. 180 Tab 1 08/04/2018 Active amLODIPine (NORVASC) 5 MG Tablet Take 1 Tab by mouth 2 times a day. 180 Tab 1 08/13/2018 Active ONETOUCH ULTRASOFT LANCETS MISCIndications:Type 2 diabetes [...] 3 08/24/2018 Active losartan (COZAAR) 50 MG TabletIndications:HT N, goal below 140/80 TAKE ONE TABLET BY MOUTH TWICE A DAY 180 Tab 1 09/03/2018 Active finasteride (PROSCAR) 5 MG TabletIndications:BP H with obstruction/lower urinary tract symptoms TAKE 1 TABLET BY MOUTH DAILY. 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 90 Cap 1 01/21/2019 Active documented as of this encounter (statuses as of 01/24/2019) Active Problems Problem Noted Date Type 2 [...] to patient at prior appointment. Atherosclerosis of [place] co ronary artery of [place] heart without angina pectoris 11/30/2001 GENERAL OSTEOARTHROSIS Multiple pulmonary nodules Complex renal cyst Overview: 3.8 cm; L Old [place] (myocardial infarction) documented as of this encounter (statuses as of 01/24/2019) Resolved Problems Problem Noted Date Resolved Date [employer] Cardio Research Other*[id number] 201004/22/2016 Overview: Study Titile: Genomics Markers for Patients with Cardiovascular Disease Project # [id number] PI: Amalia Kingsley MD Please call [phone] with study related questions HTN, goal below 130/80 04/15/2010 2 Overview: Per HTN Protocol #27. Actinic keratosis 04/27/2009 10/12/2015 DIAB RENAL MANIF ADULT 10/06/2007 9 Overview: Per Diabetes Taxonomy. Added per DM w/ renal complications protocol #4 Seborrheic dermatitis 01/24/2002 10/12/2015 Solar lentigo 10/27/2001 04/30/2016 ACUTE SC; INFERIOR WALL;SUBSEQUENT EPISODE CARE 06/21/2013 HYPERTENSION NOS [...] as of this encounter (statuses as of 01/24/2019) Immunizations Name Administration Dates Next Due Pneumococcal [...] Sign Reading Time Taken Comments Blood Pressure 124/68 01/24/2019 9:49 AM EST Pulse 68 01/24/2019 9:49 AM EST Temperature 36.7 C (98 F) 01/24/2019 9:49 AM EST Respiratory Rate 12 01/24/2019 9:49 AM EST Oxygen Saturation - - Inhaled Oxygen Concentration - - Weight 63.5 kg (140 lb) 01/24/2019 9:49 AM EST Height - - Body Mass Index 24.03 08/19/2018 8:16 AM EDT documented in this encounter Patient Instructions * Patient Instructions* Janell Stover LPN - 01/24/2019 9:53 AM EST Diabetes: Keeping Feet Healthy Inspect your [...] calluses yourself. Talk to your doctor or reinsurance accountant (a doctor who specializes in foot care) [...] the area doesnt appear to be healing. [id number] [employer], [address] [place] [address], [place] [address]. All rights reserved. This information is not intended as a substitute for professional medical care. Always follow your healthcare professional's instructions. documented in this encounter Progress Notes * Lena Mckeon PA-C - 01/24/2019 10:15 AM EST Exam not done today. Will reschedule. * Janell Stover LPN - 01/24/2019 9:53 AM EST DM Foot Exam completed today. Provider aware. Janell Stover LPN Socks and Shoes Removed for Annual Diabetic [...] monofilament pressure on plantar surface of foot Patient left without being seen by the provider. documented in this encounter Nursing Notes * Janell Stover LPN - 01/24/2019 9:50 AM EST Pt is here for check up , pt said his right ear needs checked for wax , can't hear well at times , he also has had 2 episodes of dizziness , when he got up and moved to fast and then it Seem to go awayand also after he waited to get up the next time it was ok Pt said he called about getting pre op for cataracts and they told him this is all they had, Pt surgery is not until 02-07-19 and 03-01-19 Seem to early for clearance documented in this encounter Plan of Treatment Upcoming Encounters Date Type Specialty Care Team Description 02/01/2019 Office Visit Internal Medicine Lena Mckeon PA-C [address] [place] [address] [place] [address] [phone] 02/07/2019 Hospital Encounter Surgery Quincy Paiz MD [address] [address] [phone] 02/07/2019 Surgery Surgery Quincy Paiz MD [address] [place] [address] right EXTRACAPSULAR CATARACT REMOVAL WITH INTRAOCULAR LENS 02/08/2019 Imaging Radiology 03/01/2019 Hospital Encounter Surgery Quincy Paiz MD [address] [address] 03/01/2019 Surgery Surgery Quincy Paiz MD [address] [place] [address] left EXTRACAPSULAR CATARACT REMOVAL WITH INTRAOCULAR LENS 03/23/2019 Office Visit Dermatology Kim Kong MD [address] [place] [address] [phone] 03/31/2019 Office Visit Cardiology Alcon Lott PA-C [address] [facility] [place] [address] [phone] Health Maintenance Due Date Last Done Comments DIABETES-FOOT EXAM 02/18/2019 02/18/2018, 1 04/01/2016, 01/24/2016, Additional history exists DIABETES-HGBA1C EVERY 6 MONTHS 02/18/2019 08/19/2018, 02/18/2018, 08/12/2017, Additional history exists Yearly B-12 08/20/2019 08/19/2018, 08/12/2017 DIABETES-EYE EXAM 11/10/2019 11/09/2018, , 10/10/2015, Additional history exists DTaP,Tdap,and Td Vaccines (2 - Td) 08/05/2022 08/05/2012, 03/16/2003 Pneumococcal Vaccine: 65+ Years Completed 10/16/2015, 12/15/2006, 04/01/2002 Influenza Vaccine (FLU shot) Completed 11/2018, 11/17/2017, 11/21/2016, Additional history exists MENINGOCOCCAL (MENACTRA) Aged Out No longer eligible based on patient's age to complete this topic documented as of this encounter Implants Implanted Type Area Auto Salvage Worker Device Identifier Shelf Expiration Date Model / Serial / Lot Marker Coronary Am-Sd - [id number] Implanted:Qty: 1 on 12/26/2010 [place] [facility] [place]A: Heart [employer] 10/13/2013 AM-SD / / [id number] Sut Steel 6 M654g - [id number] Implanted:Qty: 5 on 12/26/2010 at [place] [facility] Chest DO NOT USE 10/14/2015 M654G / / [id number] 225-241 - [id number] Implanted:Qty: 1 on 12/26/2010 at [place] [facility] Chest [employer] 225-241 / / [id number] documented as of this encounter Visit Diagnoses Diagnosis DM type 2 nursing care encounter (HCC)- Primary Type II or unspecified type diabetes mellitus without mention of complication, not stated as uncontrolled Left without being seen documented in this encounter Advance Directives Documents on File Type Date Recorded Patient Redye Hand Expl 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
--- OUTSIDE RECORDS SUMMARY | 2022-11-16 13:19 | External Medical Summary | Summary of Care ---
Author Name Unknown Organization [place] [address] Care Team Providers Care Rail Operator Name Role Phone Smith Orozco MD Primary Care Provider + [phone] Reason for Visit * Reason Comments Follow Up Encounter Details Date Type Department Care Team Description 09/28/2018 Office Visit Cardiology [address] [id number] Alcon Lott PA-dAelfo [address] [place] [address] [phone] Ischemic cardiomyopathy*; Asymptomatic bilateral carotid artery stenosis; Atherosclerosis of tangirnaq coronary artery of tangirnaq heart without angina pectoris; Essential hypertension with goal blood pressure less than 140/90; Statin intolerance; Bradycardia; Old SC (myocardial infarction); Dyslipidemia, goal LDL below 70; Bilateral carotid bruits Allergies Active Allergy Reactions Severity Noted Date Comments Acetaminophen Renal complications 04/27/2009 Aspirin 08/13/2000 Stomach pain Cholestyramine 08/13/2000 Kidney pain Atorvastatin Calcium 04/28/2007 cramping Niacin Muscle pain 07/22/2007 Simvastatin Hives 08/13/2000 Ezetimibe 04/28/2007 Cramping ankles, turned feet inward documented as of this encounter (statuses as of 09/28/2018) Medications Medication Sig Dispensed Refills Start Date End Date Status GAVI 180 MG PO TABSIndications:Aller gic rhinitis One pill by mouth once a day for allergies 30 5 07/23/2009 Active MAGNESIUM OXIDE 200 MG PO TABSIndications:Cramp in limb one tablet twice a day 60 Tab 5 07/16/2010 Active SB LOW DOSE ASA EC 81 MG PO TBEC one tab three times weekly 0 Active MULTI-VITAMIN PO TABS one pill each day 0 Active tretinoin (RETIN-A) 0.05 % creamIndications:Acti rene keratosis APPLY NIGHTLY TO FACE DIRECTED,CAN MIX WITH PONDS 45 g 5 03/25/2017 Active Terazosin HCl 2 MG CapsuleIndications:At herosclerosis of tangirnaq coronary artery of tangirnaq heart without angina pectoris,BPH with obstruction/lower urinary tract symptoms,Essential hypertension with goal blood pressure less than 140/90 TAKE 1 CAP BY MOUTH AT BEDTIME. 90 Cap 3 02/16/2018 Active glimepiride (AMARYL) 1 MG TabletIndications:Typ e 2 diabetes mellitus with stage 2 chronic kidney disease, without long-term current use of insulin (HCC) Take 1 Tab by mouth daily. 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),Type 2 diabetes mellitus with hemoglobin A1c goal of less than 8.0% (HCC) TAKE 1 TABLET BY MOUTH TWICE A DAY WITH MEALS 180 Tab 1 04/21/2018 Active omeprazole (PRILOSEC) 20 MG CPDRIndications:Pepti c ulcer TAKE ONE CAPSULE BY MOUTH DAILY ONE HOUR PRIOR TO THE FIRST MEAL OF THE DAY 90 Cap 1 07/19/2018 Active glipiZIDE XL (GLUCOTROL XL) 10 MG [id number]:Type 2 diabetes mellitus with hemoglobin A1c goal of less than 8.0% ([facility]) Take 1 Tab by [...] 3 08/24/2018 Active losartan (COZAAR) 50 MG TabletIndications:HTN , goal below 140/80 TAKE ONE TABLET BY MOUTH TWICE A DAY 180 Tab 1 09/03/2018 Active finasteride (PROSCAR) 5 MG TabletIndications:BPH with obstruction/lower urinary tract symptoms TAKE 1 TABLET BY MOUTH DAILY. 90 Tab 1 09/03/2018 Active documented as of this encounter (statuses as of 09/28/2018) Active Problems Problem Noted Date Type 2 [...] BELOW 70 02/23/20 Overview: Per Lipid Taxonomy. DM TYPE 2 CAUSING RENAL DZ 01/11/2009 Overview: Per Diabetes Taxonomy. Added per DM w/ renal complications protocol #4 Type 2 diabetes mellitus with hemoglobin A1c goal of less than 8.0% 01/11/2009 Overview: Per Diabetes Taxonomy. ICD-10 update of inactive term ADVANCE DIRECTIVE INFORMATION 12/23/2006 Overview: No, Advance Directive brochure given to patient at prior appointment. Atherosclerosis of tangirnaq co ronary artery of tangirnaq heart without angina pectoris 11/30/2001 GENERAL OSTEOARTHROSIS Multiple pulmonary nodules Complex renal cyst Overview: 3.8 cm; L Old SC (myocardial infarction) documented as of this encounter (statuses as of 09/28/2018) Resolved Problems Problem Noted Date Resolved Date Genomics Cardio Research Other*[id number] 201004/22/2016 Overview: Study Titile: Genomics Markers for Patients with Cardiovascular Disease Project # [id number] PI: Amalia Kingsley MD Please call [phone] with study related questions HTN, goal below [...] as of this encounter (statuses as of 09/28/2018) Immunizations Name Administration Dates Next Due Pneumococcal [...] Used Tobacco Cessation:Counseling Given: No Comments:quit in 1972 Alcohol Use Drinks/Week oz/Week Comments Yes rarely Sex Assigned at Date Recorded Not on file Job Start Date Occupation Industry Not on file Not on file Not on file Travel History Travel Start Travel End documented as of this encounter Last Filed Vital Signs Vital Sign Reading Time Taken Comments Blood Pressure 128/70 09/28/2018 7:53 AM EDT Pulse 60 09/28/2018 7:53 AM EDT Temperature - - Respiratory Rate 14 09/28/2018 7:53 AM EDT Oxygen Saturation - - Inhaled Oxygen Concentration - - Weight 64.2 kg (141 lb 9.6 oz) 09/28/2018 7:53 A M EDT Height - - Body Mass Index 24.31 08/19/2018 8:16 AM EDT documented in this encounter Progress Notes * Alcon Lott PA-C - 09/28/2018 7:56 AM EDT History of Present Illness: Mr. Reynolds is a very pleasant 78 year old male here today for cardiology follow-up. Notes remodeling his bedroom, putting in new insulation, without difficulty. No complaints or concerns. No interim ER evaluations or hospitalizations. BP well controlled on home monitoring. No chest pain, palpitations, or shortness of breath. No cough, orthopnea, PND, or peripheral edema. Weight is down three pounds from last evaluation in this office. No lightheadedness, dizziness,near syncope, or syncope. No excessive bruising or bleeding noted. No headaches or unilateral issues to suggest TIA/CVA. Patient Active Problem List Diagnosis Code GENERAL OSTEOARTHROSIS M15.9 Atherosclerosis of tangirnaq coronary artery of tangirnaq heart without angina pectoris I25.10 ADVANCE DIRECTIVE INFORMATION DM TYPE 2 CAUSING RENAL DZ E11.29 Type 2 diabetes mellitus with hemoglobin A1c [...] and hypertension (HCC) E11.22, I12.9, N18.2 Old SC (myocardial infarction) I25.2 Past Surgical History: Inguinal hernia. CABG Social History: From [place]. Lives in [place] with his . Reformed smoker. 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 Review of patient's allergies indicates: Allergen Reactions Acetaminophen Renal complications Aspirin Stomach pain Cholestyramine Kidney pain Lipitor [Atorvastatin Calcium] cramping Niacin Muscle pain Simvastatin Hives Zetia [Ezetimibe] Cramping ankles, turned feet inward Current Outpatient Medications Medication Sig Dispense Refill finasteride (PROSCAR) 5 MG Tablet TAKE 1 TABLET BY MOUTH DAILY. 90 Tab 1 losartan (COZAAR) 50 MG Tablet TAKE ONE TABLET BY MOUTH TWICE A DAY 180 Tab 1 ONETOUCH ULTRA BLUE STRP USE ONE TEST STRIP TO TEST BLOOD SUGAR LEVELS TWICE A DAY 300 Strip 3 ONETOUCH ULTRASOFT LANCETS MISC USE ONE LANCET TO TEST BLOOD SUGAR LEVELS TWICE A DAY 300 Each 3 amLODIPine (NORVASC) 5 MG Tablet Take 1 Tab by mouth 2 times a day. 180 Tab 1 glipiZIDE XL (GLUCOTROL XL) 10 MG TB24 Take 1 Tab by mouth 2 times a day. 180 Tab 1 omeprazole (PRILOSEC) 20 MG CPDR TAKE ONE CAPSULE BY MOUTH DAILY ONE HOUR PRIOR TO THE FIRST MEAL OF THE DAY 90 Cap 1 MetFORMIN (GLUCOPHAGE) 1000 MG Tablet TAKE 1 TABLET BY MOUTH TWICE A DAY WITH MEALS 180 Tab 1 Terazosin HCl 2 MG Capsule TAKE 1 CAP BY MOUTH AT BEDTIME. 90 Cap 3 tretinoin (RETIN-A) 0.05 % cream APPLY NIGHTLY TO FACE DIRECTED,CAN MIX WITH PONDS 45 g 5 MULTI-VITAMIN PO TABS one pill each day SB LOW DOSE ASA EC 81 MG PO TBEC one tab three times weekly MAGNESIUM OXIDE 200 MG PO TABS one tablet twice a day 60 Tab 5 GAVI 180 MG PO TABS One pill by mouth once a day for allergies 30 5 glimepiride (AMARYL) 1 MG Tablet Take 1 Tab by mouth daily. with the first main meal of the day fordiabetes (Patient not taking: Reported on 09/28/2018) 90 Tab 1 PHYSICAL EXAMINATION BP 128/70 | Pulse 60 | Resp 14 | Wt 141 lbs 9.6 oz (64.229kg) | BMI 24.31 kg/m | BSA 1.7 m | BP on my examination was 130/66, equal in both arms General: A&Ox3. NAD. [...] focal deficits. Pulses: radial=2/4, posterior tibial=2/4. Data: July 2018 carotid duplex revealed 50 to 69% CRISTI stenosis, mild (<50%) LICA. August 03, 2018 TTE Interpretation Summary (as [...] there has been no significant interval change. ASSESSMENT: 1. Labile hypertension. BP well controlled today and on home monitoring. 2. ASCVD, ischemic cardiomyopathy with past inferior SC in 1994 managed at [facility]. 3. Catheterization in 2010 following abnormal nuclear stress testing demonstrating widespread and greatly calcified CAD including a 70% LM stenosis, 80% mid LAD stenosis, 70% proximal LCX lesion and heavily disease distal stenosis, and a dominant RCA with occlusion with left to right filling. 4. Status post 12/26/2010 off pump coronary artery bypass times 4 with a WHITT[place] - LAD and SVG's to the diagonal, intermediate artery, and obtuse marginal. 5. Ischemic cardiomyopathy, LVEF 40-44%. 6. Normovolemic. 7. Mild aortic stenosis. 8. Mild aortic insufficiency. 9. Mild mitral regurgitation 10. Compensated volume status. 11. Bradycardia. Beta-layne intolerance. 12. Prior palpitations in association with sensed ectopy, quiescent. 13. Dyslipidemia. Documented statin intolerance and Zetia. 14. Type II diabetes mellitus. Followed by PCP. 15. Carotid artery disease. History of prior TIA with transient leg weakness. 16. BPH RECOMMENDATIONS/PLAN: Continue as prescribed. Repeat carotid duplex in January 2019. Repeat TTE inMay 2009. Routine cardiology follow-up in 6 months or as needed. ER with emergencies. Alcon Lott PA-C Department of Cardiology documented in this encounter Nursing Notes * Suzan Alcantar RN - 09/28/2018 7:55 AM EDT Examination Room: 3 Name: Cl [...] Encounters Date Type Specialty Care Team Description 10/04/2018 Office Visit Dermatology Kim Kong MD [address] [facility] [place] [address] [phone] 02/08/2019 Imaging Radiology 02/21/2019 Office Visit Internal Medicine Smith Orozco MD [address] [place] [address] [place] [id number] 03/31/2019 Office Visit Cardiology Alcon Lott PA-C [address] [facility] [place] [address] Health Maintenance Due Date [...] of this encounter Implants Implanted Type Area Carver Hand Device Identifier Shelf Expiration Date Model / Serial / Lot Marker Coronary Amgm-Sd - [id number] Implanted:Qty: 1 on 12/26/2010 at OR [facility] [place] N/A: Heart [employer] 10/13/2013 AMGM-SD / / [id number] Sut Steel 6 M654g - [id number] Implanted:Qty: 5 on 12/26/2010 at OR [facility] [place] Chest DO NOT USE 10/14/2015 M654G / / [id number] [facility] 225-708 - [id number] Implanted:Qty: 1 on 12/26/2010 at OR [facility] [place] Chest [employer] 225-849 / / [id number] documented as of this encounter Visit Diagnoses Diagnosis Ischemic cardiomyopathy- Primary Other specified forms of chronic ischemic heart disease Asymptomatic bilateral carotid artery stenosis Occlusion and stenosis of multiple and bilateral precerebral arteries without mention of cerebral infarction Atherosclerosis of tangirnaq coronary artery of tangirnaq heart without angina pectoris Essential hypertension with goal blood pressure less than 140/90 Statin intolerance Other drug allergy Bradycardia Other specified cardiac dysrhythmias Old SC (myocardial infarction) Old myocardial infarction Dyslipidemia, goal LDL below 70 Other and unspecified hyperlipidemia Bilateral carotid bruits documented in this encounter Advance Directives Documents on File Type Date Recorded 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
--- OUTSIDE RECORDS SUMMARY | 2022-11-16 13:19 | External Medical Summary | Summary of Care ---
Author Name Unknown Organization [place] [address] Care Team Providers Care Senior Catering Sales Manager Name Role Phone Smith Orozco MD Primary Care Provider + [phone] Reason for Visit * Reason Comments Pt Portal Med Renewal Encounter Details Date Type Department Care Team Description 02/08/2019 Refill Cardiology [address] [address] Alcon Lott [facility]Adelfo [address] [facility] [address] [phone] Essential hypertension with goal blood pressure less than 140/90*; Ischemic cardiomyopathy Allergies Active Allergy Reactions Severity Noted Date Comments Acetaminophen Renal complications 04/27/2009 Aspirin 08/13/2000 Stomach pain Cholestyramine 08/13/2000 Kidney pain Atorvastatin Calcium 04/28/2007 cramping Niacin Muscle pain 07/22/2007 Simvastatin Hives 08/13/2000 Ezetimibe 04/28/2007 Cramping ankles, turned feet inward documented as of this encounter (statuses as of 02/08/2019) Medications Medication Sig Dispensed Refills Start Date [...] Terazosin HCl 2 MG CapsuleIndications: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 90 Cap 3 02/16/2018 Active ONETOUCH ULTRASOFT LANCETS MISCIndications:Type 2 diabetes [...] Active glipiZIDE XL (GLUCOTROL XL) 10 MG [id number]:Type 2 diabetes mellitus with hemoglobin A1c goal of less than 8.0% ([facility]) TAKE 1 TABLET BY MOUTH TWICE A DAY 180 Tab 1 02/05/2019 Active documented as of this encounter (statuses as of 02/08/2019) Active Problems Problem Noted Date Type 2 [...] to patient at prior appointment. Atherosclerosis of sycuan co ronary artery of sycuan heart without angina pectoris 11/30/2001 GENERAL OSTEOARTHROSIS Multiple pulmonary nodules Complex renal cyst Overview: 3.8 cm; L Old CA (myocardial infarction) documented as of this encounter (statuses as of 02/08/2019) Resolved Problems Problem Noted Date Resolved Date Genomics Cardio Research Other*[id number] 201004/22/2016 Overview: Study Titile: Genomics Markers for Patients with Cardiovascular Disease Project # [id number] PI: Amalia Kingsley MD Please call [phone] with study related questions HTN, goal below [...] as of this encounter (statuses as of 02/08/2019) Immunizations Name Administration Dates Next Due Pneumococcal [...] encounter Miscellaneous Notes * Telephone Encounter - Maged Marie LPN - 02/08/2019 10:42 AM EST Med sent to pharmacy on 02/03/19. * Telephone Encounter - Maged Marie LPN - 02/08/2019 10:42 AM EST Message from [facility]: Cl Reynolds would like a refill of the following medications: amLODIPine (NORVASC) 5 MG Tablet [Alcon Lott PA-C] Preferred pharmacy: [id number] Medication renewals requested in this message routed separately: glipiZIDE XL (GLUCOTROL XL) 10 MG TB24 [Smith Orozco MD] documented in this encounter Plan of Treatment Upcoming Encounters Date Type Specialty Care Team Description 03/01/2019 Hospital Encounter Surgery Quincy Paiz MD [address] [address] [phone] 03/01/2019 Surgery Surgery Quincy Paiz MD [facility] [place] [address] [address] [phone] left EXTRACAPSULAR CATARACT REMOVAL WITH INTRAOCULAR LENS 03/23/2019 Office Visit Dermatology Kim Kong MD [address] [place] [address] [phone] 03/31/2019 Office Visit Cardiology Alcon Lott PA-C [address] [place] [address] [phone] 08/04/2019 Office Visit Internal Medicine Smith Orozco MD [address] [place] [address] [place] [address] [phone] Health Maintenance Due Date Last Done Comments DIABETES-HGBA1C EVERY 6 MONTHS 02/18/2019 08/19/2018, 02/18/2018, [...] of this encounter Implants Implanted Type Area System Development Manager Device Identifier Shelf Expiration Date Model / Serial / Lot Marker Coronary Am-Sd - [id number] Implanted:Qty: 1 on 12/26/2010 at OR [facility] N/A: Heart [employer] 10/13/2013 AM-SD / / [id number] Sut Steel 6 M654g - [id number] Implanted:Qty: 5 on 12/26/2010 at OR [facility] Chest DO NOT USE 10/14/2015 M654G / / [id number] Alonso [facility] 225-024 - [id number] Implanted:Qty: 1 on 12/26/2010 at OR [facility] Chest [employer] 225-711 / / [id number] Lens Intraoc 17.5 - [id number] - [id number] Implanted:Qty: 1 on 02/07/2019 by Quincy Paiz MD at OR [facility] Right: Eye [employer]OM[employer] 08/14/2023 [id number] / [id number] / [id number] documented as of this encounter Visit Diagnoses Diagnosis Essential hypertension with goal blood pressure less than 140/90- Primary Ischemic cardiomyopathy Other specified forms of chronic ischemic heart disease documented in this encounter Advance Directives Documents on File Type Date Recorded Patient Algorithm Design Engineer Expl anation Advanced Directive Advanced [...]
--- OUTSIDE RECORDS SUMMARY | 2022-11-16 13:19 | External Medical Summary | Summary of Care ---
Author Name Unknown Organization [place] [address] Care Team Providers Care Scalping Machine Operator Name Role Phone Smith Danielle MD Primary Care Provider + [phone] Reason for Visit * Reason Comments Follow Up Patient here for his skin check with hx of NMSC-SCC and AK. He has a raised, scabbed growth on his left neck for the past few months that is tender at times. Encounter Details Date Type Department Care Team Description 10/04/2018 Office Visit Dermatology [facility] [address] [place] [address] Kim Kong MD [address] [place] [address] [phone] Skin tumor*; Scar; Hx of actinic keratosis; Hx of nonmelanoma skin cancer Allergies Active Allergy Reactions Severity Noted Date Comments Acetaminophen Renal complications 04/27/2009 Aspirin 08/13/2000 Stomach pain Cholestyramine 08/13/2000 Kidney pain Atorvastatin Calcium 04/28/2007 cramping Niacin Muscle pain 07/22/2007 Simvastatin Hives 08/13/2000 Ezetimibe 04/28/2007 Cramping ankles, turned feet inward documented as of this encounter (statuses as of 10/05/2018) Medications Medication Sig Dispensed Refills Start Date [...] Terazosin HCl 2 MG CapsuleIndications:At herosclerosis of hoopa coronary artery of hoopa heart without angina pectoris,BPH with obstruction/lower urinary [...] Active glipiZIDE XL (GLUCOTROL XL) 10 MG [id number]:Type 2 diabetes mellitus with hemoglobin A1c goal [...] hemoglobin A1c goal of less than 8.0% ([facility]) USE ONE TEST STRIP TO [...] as of this encounter (statuses as of 10/05/2018) Active Problems Problem Noted Date Type 2 [...] to patient at prior appointment. Atherosclerosis of hoopa co ronary artery of hoopa heart without angina pectoris 11/30/2001 GENERAL OSTEOARTHROSIS Multiple pulmonary nodules Complex renal cyst Overview: 3.8 cm; L Old CT (myocardial infarction) documented as of this encounter (statuses as of 10/05/2018) Resolved Problems Problem Noted Date Resolved Date Genomics Cardio Research Other*[id number] 201004/22/2016 Overview: Study Titile: Genomics Markers for Patients with Cardiovascular Disease Project # [id number] PI: Amalia Kingsley MD Please call [phone] with study related questions HTN, goal below [...] as of this encounter (statuses as of 10/05/2018) Immunizations Name Administration Dates Next Due Pneumococcal [...] Travel End documented as of this encounter Patient Instructions * Patient Instructions* Kim Kong MD - 10/04/2018 11:16 AM EDT Skin Surgery Wound Care Instructions CHANGE DRESSING ONCE DAILY 1. Wash hands and remove the original dressing(s) in 12-24 hours. 2. Gently clean wound(s) with soap and water. Rinse with water and pat the wound dry. 3. Apply a thin layer of Vaseline ointment with a Q-tip. 4. Cover with a bandage if area(s) is not on the face or scalp. A dressing is not required on the face or scalp. Use non-adherent dressing and paper tape if you are sensitive to band-aid adhesive sensitive. WHAT TO EXPECT AFTER SURGERY: 1. Swelling and redness may occur around the wound for several days. If the procedure(s) was around the eye, skin around the eyes is often quite swollen and discolored for several days. 2. Shave biopsy sites will have a yellow center and thin red rim surrounding it. 3. Drainage is to be expected. The drainage may be yellow-green and have a slight odor. As long as the wound itself is healing, you do not have to be concerned about the drainage. 4. If bleeding occurs, apply FIRM CONSTANT PRESSURE to the dressing with fingertips and a dry, clean wash cloth for 20 - 30 minutes. No peeking to see if bleeding has stopped. 5. If you have any concerns about the healing wound, please call at: [place] office or [facility] office documented in this encounter Progress Notes * Kim Kong MD - 10/04/2018 11:16 AM EDT SUBJECTIVE: History of Present Illness: Cl Reynolds is a 78 year old male seen today for follow up - skin check (partial). Last OfficeVisit: 01/11/2018. Scaly spots remain on face, new one developed on L neck since last visit, sore at times. Hx NMSC, AK, uses tretinoin nightly SCC L posterior helix 09/2016 AK R cheek (could not R/O SCC) 11/2014 Works outdoors often REVIEW OF SYSTEMS: SKIN: [...] A DAY WITH MEALS 180 Tab 1 glimepiride (AMARYL) 1 MG Tablet Take 1 Tab by mouth daily. with the first main meal of the day fordiabetes (Patient not taking: Reported on 09/28/2018) 90 Tab 1 Terazosin HCl 2 MG Capsule [...] once a day for allergies 30 5 ALLERG IES: Acetaminophen; Aspirin; Cholestyramine; Lipitor [atorvastatin calcium]; Niacin; Simvastatin; and Zetia [ezetimibe] OBJECTIVE: GEN: Healthy, alert, no distress, appears oriented, pleasant and cooperative. SKIN: Detailed exam of hair, face including lids and lips, neck and palpation of scalp completed and are normal except: 1. L lateral neck - 3 mm eroded scaly pink papule 2. Scar - L posterior helix ASSESS MENT/PLAN: 1. AK vs. NMSC - Biopsy of the lesion noted above to establish [...] path, final length of wound 6 mm 2. Scar - Hx NMSC - no evidence of recurrence Discussed sun protection with patient including proper use of sunscreens and protective clothing. ABCDs explained., *actinic damage on face, no overt lesions today - con't tretinoin cream nightly to whole face Follow-up: 6 months skin check There were no barriers tolearning and no other pain was related to today's visit. The patient and/or person accompanying patient demonstrates understanding of the visit and treatment. Kim Kong MD 10/04/2018 11:16 AM Ref: SELF[[id number]] NO STREET ADDRESS AVAILABLE None (office) None (fax) PCP: SMITH DANIELLE [address] [place] [address] [place] [address] [phone] documented in this encounter Nursing Notes * Merry Ba, KYLE - 10/04/2018 9:31 AM EDT Do you have any concerns about pain management for today's visit? No Living Will or Advance Directive for Health Care as noted on problem list. [facility] is a way you can talk to your provider on line through e-mail. Would you like to sign up? I can activate it for you? ALREADY ACTIVE Chief Complaint Patient presents with Follow Up Patient here for his skin check with hx of NMSC-SCC and AK. He has a raised, scabbed growth on his left neck for the past few months that is tender at times. documented in this encounter Plan of Treatment Upcoming Encounters Date Type Specialty Care Team Description 02/08/2019 Imaging Radiology 02/21/2019 Office Visit Internal Medicine Smith Danielle MD [address] [place] [address] [place] [address] [phone] 03/23/2019 Office Visit Dermatology Kim Kong MD 200 [place] [address] [phone] 03/31/2019 Office Visit Cardiology Alcon Lott PA-C 132 [facility] [place] [address] [phone] Pending Results Name Type Priority Associated Diagnoses Date /Time SURGICAL PATHOLOGY Pathology Routine Skin tumor 10/04/2018 5:27 PM EDT Health Maintenance Due Date Last Done [...] of this encounter Implants Implanted Type Area Industrial Truck Operator Device Identifier Shelf Expiration Date Model / Serial / Lot Marker Coronary Amgm-Sd - [id number] Implanted:Qty: 1 on 12/26/2010 at [place] [facility] [place] N/A: Heart [employer] 10/13/2013 [facility] / / [id number] Sut Steel 6 M654g - [id number] Implanted:Qty: 5 on 12/26/2010 at [place] [facility] [place] Chest DO NOT USE 10/14/2015 M654G / / [id number] Alonso Pascual 225-107 - [id number] Implanted:Qty: 1 on 12/26/2010 at [place] [facility] [place] Chest [employer] 225-241 / / [id number] documented as of this encounter Procedures Procedure Name Priority Date/Time Associated Diagnosis Comments DERM IMAGE (SITE) Routine 10/04/2018 Skin tumor documented in this encounter Results * DERM IMAGE (SITE) (10/04/2018) Specimen Narrative Performed At documented in this encounter Visit Diagnoses Diagnosis Skin tumor- Primary Neoplasm of uncertain behavior of skin Scar Scar condition and fibrosis of skin Hx of actinic keratosis Personal history of diseases of skin and subcutaneous tissue Hx of nonmelanoma skin cancer Personal history of other malignant neoplasm of skin documented in this encounter Advance Directives Documents on File Type Date Recorded Patient Phd Intern Expl 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
--- OUTSIDE RECORDS SUMMARY | 2022-11-16 13:19 | External Medical Summary | Summary of Care ---
Author Name Unknown Organization [place] [address] Care Team Providers Care Supervisor Electric Motor Testing Name Role Phone Smith Orozco MD Primary Care Provider + [phone] Encounter Details Date Type Department Care Team Description 11/17/2018 Orders Only Internal Medicine [address] [address] Smith Orozco MD [address] [place] [address] [place] [address] [phone] Allergies Active Allergy Reactions Severity Noted Date Comments Acetaminophen Renal complications 04/27/2009 Aspirin 08/13/2000 Stomach pain Cholestyramine 08/13/2000 Kidney pain Atorvastatin Calcium 04/28/2007 cramping Niacin Muscle pain 07/22/2007 Simvastatin Hives 08/13/2000 Ezetimibe 04/28/2007 Cramping ankles, turned feet inward documented as of this encounter (statuses as of 11/17/2018) Medications Medication Sig Dispensed Refills Start Date [...] Terazosin HCl 2 MG CapsuleIndications:At herosclerosis of nez perce coronary artery of [...] 1 02/19/2018 Active omeprazole (PRILOSEC) 20 MG CPDRIndications:Pepti c ulcer TAKE ONE CAPSULE BY MOUTH DAILY ONE HOUR PRIOR TO THE FIRST MEAL OF THE DAY 90 Cap 1 07/19/2018 Active glipiZIDE XL (GLUCOTROL XL) 10 MG [id number]:Type 2 diabetes mellitus with hemoglobin A1c goal of less than 8.0% ([facility]) Take 1 Tab by mouth 2 [...] 1 09/03/2018 Active MetFORMIN (GLUCOPHAGE) 1000 MG TabletIndications: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),Type 2 diabetes mellitus with hemoglobin A1c goal of less than 8.0% (HCC) TAKE 1 TABLET BY MOUTH TWICE A DAY WITH MEALS 180 Tab 1 10/12/2018 Active documented as of this encounter (statuses as of 11/17/2018) Active Problems Problem Noted Date Type 2 [...] as of this encounter (statuses as of 11/17/2018) Resolved Problems Problem Noted Date Resolved Date Genomics Cardio Research Other*[id number] 201004/22/2016 Overview: Study Titile: Genomics Markers for Patients with Cardiovascular Disease Project # [id number] PI: Amalia Kingsley MD Please call [phone] with study related questions HTN, goal below [...] as of this encounter (statuses as of 11/17/2018) Immunizations Name Administration Dates Next Due Pneumococcal [...] Visit Internal Medicine Smith Orozco MD [address] [place] [address] [place] [address] 03/23/2019 Office Visit Dermatology Kim Kong MD 200 [place] [address] [phone] 03/31/2019 Office Visit Cardiology Alcon Lott PA-C [address] [facility] [place] [address] [phone] Health Maintenance Due Date Last Done Comments DIABETES-EYE EXAM 11/05/2018 11/05/2017, , 09/26/2014, Additional history exists Influenza Vaccine (FLU shot) (#1) 2018 11/17/2017, 11/21/2016, 11/27/2015, Additional history exists DIABETES-FOOT EXAM 02/18/2019 02/18/2018, [...] of this encounter Implants Implanted Type Area Knit Goods Mender Device Identifier Shelf Expiration Date Model / Serial / Lot Marker Coronary Am-Sd - [id number] Implanted:Qty: 1 on 12/26/2010 [place] [facility] [place]A: Heart [employer] 10/13/2013 [facility]-SD / / [id number] Sut Steel 6 M654g - [id number] Implanted:Qty: 5 on 12/26/2010 at [place] [facility] [place] Chest DO NOT USE 10/14/2015 M654G / / [id number] Alonso Pascual 225-719 - [id number] Implanted:Qty: 1 on 12/26/2010 at [place] [facility] [place] Chest [employer] 225-900 / / [id number] documented as of this encounter Procedures Procedure Name Priority Date/Time Associated Diagnosis Comments DIABETIC EYE EXAM Routine 11/09/2018 documented in this encounter Results * DIABETIC EYE EXAM (11/09/2018) Specimen Narrative Performed At Performing Organization Address City/State/Zipcod e Phone Number OUTSIDE LAB (SEE SCANNED REPORT) documented in this encounter Advance Directives Documents on File Type Date Recorded Patient Blueprint Developer Expl 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
--- OUTSIDE RECORDS SUMMARY | 2022-11-16 13:19 | External Medical Summary | Summary of Care ---
Author Name Unknown Organization [place] [address] Care Team Providers Care Link Cutter Name Role Phone Smith Orozco MD Primary Care Provider [phone] Reason for Visit * Reason Comments eRx-Medication Refill Encounter Details Date Type Department Care Team Description 02/03/2019 Refill [address] [id number] Karly Adler PAJennifer [address] [facility] [place] [address] [phone] Allergies Active Allergy Reactions Severity Noted Date Comments Acetaminophen Renal complications 04/27/2009 Aspirin 08/13/2000 Stomach pain Cholestyramine 08/13/2000 Kidney pain Atorvastatin Calcium 04/28/2007 cramping Niacin Muscle pain 07/22/2007 Simvastatin Hives 08/13/2000 Ezetimibe 04/28/2007 Cramping ankles, turned feet inward documented as of this encounter (statuses as of 02/03/2019) Medications Medication Sig Dispensed Refills Start Date [...] Terazosin HCl 2 MG CapsuleIndications :Atherosclerosis of [place] coronary artery of [place] heart without angina pectoris,BPH with obstruction/lower urinary tract symptoms,Essential hypertension with goal blood pressure less than 140/90 TAKE 1 CAP BY MOUTH AT BEDTIME. 90 Cap 3 02/16/2018 Active glipiZIDE XL (GLUCOTROL XL) 10 MG [id number]:Ty pe 2 diabetes mellitus with hemoglobin A1c goal of less than 8.0% (HCC) Take 1 Tab by mouth 2 times a day. 180 Tab 1 08/04/2018 Active ONETOUCH ULTRASOFT LANCETS MISCIndications:Ty pe 2 [...] A DAY 180 Tab 1 02/03/2019 Active amLODIPine (NORVASC) 5 MG Tablet Take 1 Tab by mouth 2 times a day. 180 Tab 1 08/13/2018 9 Discontinue d(Refill) documented as of this encounter (statuses as of 02/03/2019) Active Problems Problem Noted Date Type 2 [...] to patient at prior appointment. Atherosclerosis of [place] co ronary artery of venet[place] heart without angina pectoris 11/30/2001 GENERAL OSTEOARTHROSIS Multiple pulmonary nodules Complex renal cyst Overview: 3.8 cm; L [facility] (my[facility] infarction) documented as of this encounter (statuses as of 02/03/2019) Resolved Problems Problem Noted Date Resolved Date Genomics Cardio Research Other*[id number] 201004/22/2016 Overview: Study Titile: Genomics Markers for Patients with Cardiovascular Disease Project # [id number] PI: Amalia Kingsley MD Please call [phone] with study related questions HTN, goal below [...] as of this encounter (statuses as of 02/03/2019) Immunizations Name Administration Dates Next Due Pneumococcal [...] Telephone Encounter - Karly Adler PA-C - 02/03/2019 1:51 PM EST Signed Prescriptions: Disp Refills amLODIPine (NORVASC) 5 MG Tablet 180 Tab1 Sig: TAKE 1 TABLET BY MOUTH TWICE A DAY Authorizing Provider: KARLY ADLER * Telephone Encounter - Melida Fajardo [facility] - 02/03/2019 1:50 PM EST Pending Prescriptions: Disp Refills amLODIPine (NORVASC) 5 MG Tablet [Pharmac*180 Tab1 Sig: TAKE 1 TABLET BY MOUTH TWICE A DAY * Telephone Encounter - Melida Fajardo [facility] - 02/03/2019 1:48 PM EST Pending Prescriptions: Disp Refills amLODIPine (NORVASC) 5 MG Tablet [Pharmac*180 Tab1 Sig: TAKE 1 TABLET BY MOUTH TWICE A DAY Last Office Visit: 02/01/2019 Next Office Visit: 08/04/2019 Scheduled Provider(s): Smith Orozco MD If no future appointments scheduled, and last appointment is greater than a year ago, please schedule patient for a follow-up appointment Last date the medication was ordered: 08/13/18 Pharmacy: [id number] Is this request for a controlled substance?No Urine Drug Screen:No results found for this or any previous visit. Patient Phone Numbers [place] [phone] Labs: Lab Results Component Value Date/Time CREAT 1.1 03/18/2018 08:29 AM POTASSIUM 4.2 03/18/2018 08:29 AM TSH 3.81 04/28/2018 09:11 AM LDLCALC 102 08/19/2018 08:36 AM LDLDIRECT 101 02/04/2011 04:00 PM ALT 16 03/18/2018 08:29 AM HGBA1C 6.9 (H) 08/19/2018 08:36 AM documented in this encounter Plan of Treatment Upcoming Encounters Date Type Specialty Care Team Description 02/07/2019 Hospital Encounter Surgery Quincy Paiz MD [address] [address] [address] [phone] 02/07/2019 Surgery Surgery Quincy Paiz MD [address] [address] [phone] right EXTRACAPSULAR CATARACT REMOVAL WITH INTRAOCULAR LENS 02/08/2019 Imaging Radiology 03/01/2019 Hospital Encounter Surgery Quincy Paiz MD [address] [place] [address] [address] [phone] 03/01/2019 Surgery Surgery Quincy Paiz MD [address] [address] [phone] EXTRACAPSULAR CATARACT REMOVAL WITH INTRAOCULAR LENS 03/23/2019 Office Visit Dermatology Kim Kong MD 200 [facility] [place] [place] [address] [phone] 03/31/2019 Office Visit Cardiology Karly Adler PA-C 132 [facility] [place] [address] [phone] 08/04/2019 Office Visit Internal Medicine Smith Orozco MD [address] [place] [address] [place] [address] [phone] Health Maintenance Due Date Last Done Comments [...] of this encounter Implants Implanted Type Area Gameroom Technician Device Identifier Shelf Expiration Date Model / Serial / Lot Marker [facility] [id number] Implanted:Qty: 1 on 12/26/2010 at [place] [facility] [place] N/A: Heart [employer] 10/13/2013 [facility] / / [id number] Sut Steel 6 M654g - [id number] Implanted:Qty: 5 on 12/26/2010 at [place] [facility] [place] Chest DO NOT USE 10/14/2015 M654G / / [id number] Band Ankur 225-172 - [id number] Implanted:Qty: 1 on 12/26/2010 at [place] [facility] [place] Chest [employer] 225-218 / / [id number] documented as of this encounter Advance Directives Documents on File Type Date Recorded Patient Steam Flattener Expl 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
--- OUTSIDE RECORDS SUMMARY | 2022-11-16 13:19 | External Medical Summary | Summary of Care ---
Author Name Unknown Organization [place] [address] Care Team Providers Care Senior Support Analyst Name Role Phone Smith Danielle MD Primary Care Provider Reason for Visit * Reason Comments eRx-Medication Refill Encounter Details Date Type Department Care Team Description 02/05/2019 Refill Internal Medicine [address] [address] Smith Danielle MD [address] [place] [address] [place] [address] [phone] Type 2 diabetes mellitus with hemoglobin A1c goal of less than 8.0% ([facility]) Allergies Active Allergy Reactions Severity Noted Date Comments Acetaminophen Renal complications 04/27/2009 Aspirin 08/13/2000 Stomach pain Cholestyramine 08/13/2000 Kidney pain Atorvastatin Calcium 04/28/2007 cramping Niacin Muscle pain 07/22/2007 Simvastatin Hives 08/13/2000 Ezetimibe 04/28/2007 Cramping ankles, turned feet inward documented as of this encounter (statuses as of 02/05/2019) Medications Medication Sig Dispensed Refills Start Date [...] Terazosin HCl 2 MG CapsuleIndications :Atherosclerosis of [place] coronary artery of [place] heart without angina pectoris,BPH with obstruction/lower urinary tract symptoms,Essential hypertension with goal blood pressure less than 140/90 TAKE 1 CAP BY MOUTH AT BEDTIME. 90 Cap 3 02/16/2018 Active ONETOUCH ULTRASOFT LANCETS MISCIndications:Ty pe 2 [...] Active glipiZIDE XL (GLUCOTROL XL) 10 MG AZ62Zkszcqhnqnk:Ty pe 2 diabetes mellitus with hemoglobin A1c goal of less than 8.0% (HCC) TAKE 1 TABLET BY MOUTH TWICE A DAY 180 Tab 1 02/05/2019 Active glipiZIDE XL (GLUCOTROL XL) 10 MG [id number]:Ty pe 2 diabetes mellitus with hemoglobin A1c goal of less than 8.0% (HCC) Take 1 Tab by mouth 2 times a day. 180 Tab 1 08/04/2018 9 Discontinue d(Refill) documented as of this encounter (statuses as of 02/05/2019) Active Problems Problem Noted Date Type 2 [...] to patient at prior appointment. Atherosclerosis of [place] co ronary artery of [place] heart without angina pectoris 11/30/2001 GENERAL OSTEOARTHROSIS Multiple pulmonary nodules Complex renal cyst Overview: 3.8 cm; L Old [place] (myocardial infarction) documented as of this encounter (statuses as of 02/05/2019) Resolved Problems Problem Noted Date Resolved Date Genomics Cardio Research Other*[id number] 201004/22/2016 Overview: Study Titile: Genomics Markers for Patients with Cardiovascular Disease Project # [id number] PI: Amalia Kingsley MD Please call [phone] with study related questions HTN, goal below [...] as of this encounter (statuses as of 02/05/2019) Immunizations Name Administration Dates Next Due Pneumococcal [...] Miscellaneous Notes * Telephone Encounter - Erick Lopez [facility] - 02/05/2019 1:02 PM EST Signed Prescriptions: Disp Refills glipiZIDE XL (GLUCOTROL XL) 10 MG TB24 180 Tab1 Sig: TAKE 1 TABLET BY MOUTH TWICE A DAYAuthorizing Provider: SMITH DANIELLE User: ERICK LOPEZ--- documented in this encounter Plan of Treatment Upcoming Encounters Date Type Specialty Care Team Description 02/07/2019 Hospital Encounter Surgery Quincy Paiz MD [address] [place] [address] [address] [phone] 02/07/2019 Surgery Surgery Quincy Paiz MD [address] [address] [phone] right EXTRACAPSULAR CATARACT REMOVAL WITH INTRAOCULAR LENS 02/08/2019 Imaging Radiology 03/01/2019 Hospital Encounter Surgery Quincy Paiz MD [address] [address] [phone] 03/01/2019 Surgery Surgery Quincy Paiz MD [address] [address] [phone] left EXTRACAPSULAR CATARACT REMOVAL WITH INTRAOCULAR LENS 03/23/2019 Office Visit Dermatology Kim Kong MD [address] [place] [address] [phone] 03/31/2019 Office Visit Cardiology Alcon Lott PA-C 132 [facility] [place] [address] [phone] 08/04/2019 Office Visit Internal Medicine Smith Danielle MD [address] [place] [address] [place] [address] [phone] Health Maintenance Due Date Last Done Comments [...] of this encounter Implants Implanted Type Area 5Th Grade Teacher Device Identifier Shelf Expiration Date Model / Serial / Lot Marker Coronary [facility]-Sd - [id number] Implanted:Qty: 1 on 12/26/2010 [place] [facility] [place]A: Heart [employer] 10/13/2013 [facility] / / [id number] Sut Steel 6 M654g - [id number] Implanted:Qty: 5 on 12/26/2010 [place] [facility] [place] Chest DO NOT USE 10/14/2015 M654G / / [id number] Alonso Pascual 225-163 - [id number] Implanted:Qty: 1 on 12/26/2010 [place] [facility] [place] Chest [employer] 225-104 / / [id number] documented as of this encounter Visit Diagnoses Diagnosis Type 2 diabetes mellitus with hemoglobin A1c goal of less than 8.0% (HCC) documented in this encounter Advance Directives Documents on File Type Date Recorded 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
--- OUTSIDE RECORDS SUMMARY | 2022-11-16 13:19 | External Medical Summary | Summary of Care ---
Author Name Unknown Organization [place] [address] Care Team Providers Care Type Copy Examiner Name Role Phone Smith Orozco MD Primary Care Provider [phone] Reason for Visit * Reason Comments pre-op exam Encounter Details Date Type Department Care Team Description 02/01/2019 Office Visit Internal Medicine [address] [address] Lena Mckeon PA-C [address] [place] [address] [place] [address] Preop examination*; Type 2 diabetes mellitus with hemoglobin A1c goal of less than 8.0% ([facility]); Ischemic cardiomyopathy; Type 2 diabetes mellitus with stage 2 chronic kidney disease, without long-term current use of insulin ([facility]); GENERAL OSTEOARTHROSIS; Atherosclerosis of [place] coronary artery of [place] heart without angina pectoris; Dyslipidemia, goal LDL below 70; BPH with obstruction/lower urinary tract symptoms; Essential hypertension with goal blood pressure less than 140/90; 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 ([facility]) Allergies Active Allergy Reactions Severity Noted Date Comments Acetaminophen Renal complications 04/27/2009 Aspirin 08/13/2000 Stomach pain Cholestyramine 08/13/2000 Kidney pain Atorvastatin Calcium 04/28/2007 cramping Niacin Muscle pain 07/22/2007 Simvastatin Hives 08/13/2000 Ezetimibe 04/28/2007 Cramping ankles, turned feet inward documented as of this encounter (statuses as of 02/01/2019) Medications Medication Sig Dispensed Refills Start Date [...] Terazosin HCl 2 MG CapsuleIndications :Atherosclerosis of [place] coronary artery of [place] heart without angina pectoris,BPH with obstruction/lower urinary tract symptoms,Essential hypertension with goal blood pressure less than 140/90 TAKE 1 CAP BY MOUTH AT BEDTIME. 90 Cap 3 02/16/2018 Active glipiZIDE XL (GLUCOTROL XL) 10 MG [id number]:Ty pe 2 diabetes mellitus with hemoglobin A1c [...] mouth daily. 90 Cap 1 01/21/2019 Active glimepiride (AMARYL) 1 MG TabletIndications: Type 2 diabetes mellitus with stage 2 chronic kidney disease, without long-term current use of insulin (HCC) Take 1 Tab by mouth daily. with the first main meal of the day for diabetes 90 Tab 1 02/19/2018 02/01/2019 Discontinue d(Medicatio n List Clean Up) documented as of this encounter (statuses as of 02/01/2019) Active Problems Problem Noted Date Type 2 [...] to patient at prior appointment. Atherosclerosis of [place] co ronary artery of [place] heart without angina pectoris 11/30/2001 GENERAL OSTEOARTHROSIS Multiple pulmonary nodules Complex renal cyst Overview: 3.8 cm; L Old [place] (myocardial infarction) documented as of this encounter (statuses as of 02/01/2019) Resolved Problems Problem Noted Date Resolved Date [employer] Cardio Research Other*[id number] 201004/22/2016 Overview: Study Titile: Genomics Markers for Patients with Cardiovascular Disease Project # [id number] PI: Amalia Kingsley MD Please call [phone] with study related questions HTN, goal below [...] as of this encounter (statuses as of 02/01/2019) Immunizations Name Administration Dates Next Due Pneumococcal [...] Sign Reading Time Taken Comments Blood Pressure 114/64 02/01/2019 8:22 AM EST Pulse 64 02/01/2019 8:22 AM EST Temperature 36.1 C (97 F) 02/01/2019 8:22 AM EST Respiratory Rate 12 02/01/2019 8:22 AM EST Oxygen Saturation - - Inhaled Oxygen Concentration - - Weight 64 kg (141 lb) 02/01/2019 8:22 AM EST Height - - Body Mass Index 24.2 08/19/2018 8:16 AM EDT documented in this encounter Progress Notes * Lena Mckeon PA-C - 02/01/2019 8:26 AM EST Nursing Notes: Janell Stover, KYLE 02/01/19 0825 Signed Pt is here for pre op for cataract surgery , right one 02-07-19 and the left 03-01-[address] Paiz Pt here today for preop for cataracts. He is having both eyes done within the next 30 days. Pt withPM Hof reflux, DM, BPH, HTN, CAD, CKD, dyslipidemia, cardiomyopathy. Pt has no issues at this time. Review of patient's allergies indicates: Allergen Reactions Acetaminophen Renal complications Aspirin Stomach pain Cholestyramine Kidney pain Lipitor [Atorvastatin Calcium] cramping Niacin Muscle pain Simvastatin Hives Zetia [Ezetimibe] Cramping ankles, turned feet inward Current Outpatient Medications Medication Sig Dispense Refill omeprazole (PRILOSEC) 20 MG CPDR Take 1 Cap by mouth daily. 90 Cap 1 MetFORMIN (GLUCOPHAGE) 1000 MG Tablet TAKE 1 TABLET BY MOUTH TWICE A DAY WITH MEALS 180 Tab 1 finasteride (PROSCAR) 5 MG Tablet TAKE 1 [...] once a day for allergies 30 5 Past Medical History: Diagnosis Date Acute VT, inferior wall, subsequent episode of care ([facility]) 1994 BPH with obstruction/lower urinary tract symptoms 11/01/2009 CKD (chronic kidney disease) stage 2, GFR 60-89 ml/min Coronary atherosclerosis of [place] coronary artery 11/30/2001 DM type 2, goal A1c below 7 Elevated PSA 09/30/2017 PSA 7.15 Examination of eyes and vision 09/20/13 no diabetic or hypertensive retinopathy Generalized osteoarthritis HTN, goal below 140/90 Mixed dyslipidemia Multiple pulmonary nodules 03/20/13 Old [place] (myocardial infarction) 1994 Peptic ulcer Renal mass, left 2014 3.8 cm Type 2 diabetes mellitus with hemoglobin A1c goal of less than 8.0% ([facility]) 01/11/2009 Per Diabetes Taxonomy. ICD-10 update of inactive term Social History Socioeconomic History Marital status: Spouse [...] file Gets together: Not on file Attends shinto service: Not on file Active member of [...] file Social History Narrative [employer] 2 years O:Blood pressure 114/64, pulse 64, temperature 36.1 C (97 F), temperature source Tympanic, resp. rate 12, weight 64 kg (141 lb). GENERAL: alert, healthy and no distress NECK: supple, no adenopathy, no bruits, thyroid normal size, non-tender, without nodularity EYES: PERRLA, Conjunctiva are pink and non-injected, sclera clear EARS: External ears normal, Canals clear, TM's Normal NOSE: no mucosal erythema, no mucosal edema, no purulent discharge OROPHARYNX: no exudate, no erythema, lips, buccal mucosa, and tongue normal and mucous membranes are moist HEART: regular rate & rhythm, no murmurs and no gallops LUNGS: chest symmetric with normal AP diameter, no chest deformities noted, no chest wall tenderness, lungs clear to auscultation ABDOMEN: abdomen soft, non-tender, normal bowel sounds and no masses or organomegaly A:Preop examination (Primary) Type 2 diabetes mellitus with hemoglobin A1c goal of less than 8.0% (HCC) Ischemic cardiomyopathy Type 2 diabetes mellitus with stage 2 chronic kidney disease, without long-term current use of insulin (HCC) GENERAL OSTEOARTHROSIS Atherosclerosis of [place] coronary artery of [place] heart without angina pectoris Dyslipidemia, goal LDL below 70 BPH with obstruction/lower urinary tract symptoms Essential hypertension with goal blood pressure less than 140/90 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) Form filled out. Cleared for surgery. Any questions/problems, please call. Follow Up: Return PRN. Lena Mckeon PA-C documented in this encounter Nursing Notes * Janell Stover, BANKING PARALEGAL - 02/01/2019 8:23 AM EST Pt is here for pre op for cataract surgery , right one 02-07-19 and the left 03-01-[address] Paiz documented in this encounter Plan of Treatment Upcoming Encounters Date Type Specialty Care Team Description 02/07/2019 Hospital Encounter Surgery Quincy Paiz MD [address] [address] [phone] 02/07/2019 Surgery Surgery Quincy Paiz MD [address] [address] [phone] right EXTRACAPSULAR CATARACT REMOVAL WITH INTRAOCULAR LENS 02/08/2019 Imaging Radiology 03/01/2019 Hospital Encounter Surgery Quincy Paiz MD [address] [address] [phone] 03/01/2019 Surgery Surgery Quincy Paiz MD [address] [address] [phone] left EXTRACAPSULAR CATARACT REMOVAL WITH INTRAOCULAR LENS 03/23/2019 Office Visit Dermatology Kim Kong MD [address] [place] [address] [phone] 03/31/2019 Office Visit Cardiology Alcon Lott PA-C [address] [facility] [place] [address] [phone] 08/04/2019 Office Visit Internal Medicine Smith Orozco MD [address] [place] [address] [place] [id number] Health Maintenance Due Date Last Done Comments [...] of this encounter Implants Implanted Type Area Community Pharmacist Device Identifier Shelf Expiration Date Model / Serial / Lot Marker [facility] - [id number] Implanted:Qty: 1 on 12/26/2010 [place] [facility] N/A: Heart [employer] 10/13/2013 [facility] / / [id number] Sut Steel 6 M654g - [id number] Implanted:Qty: 5 on 12/26/2010 at [place] [facility] Chest DO NOT USE 10/14/2015 M654G / / [id number] Band Ankur 225-767 - Implanted:Qty: 1 on 12/26/2010 at [place] [facility] Chest [employer] 225-241 / / [id number] documented as of this encounter Visit Diagnoses Diagnosis Preop examination- Primary Preoperative examination, unspecified Type 2 diabetes mellitus with hemoglobin A1c goal of less than 8.0% (HCC) Ischemic cardiomyopathy Other specified forms of chronic ischemic heart disease Type 2 diabetes mellitus with stage 2 chronic kidney disease, without long-term current use of insulin (HCC) GENERAL OSTEOARTHROSIS Generalized osteoarthrosis, unspecified site Atherosclerosis of [place] coronary artery of [place] heart without angina pectoris Dyslipidemia, goal LDL below 70 Other and unspecified hyperlipidemia BPH with obstruction/lower urinary tract symptoms Hypertrophy of prostate with urinary obstruction and other lower urinary tract symptoms (LUTS) Essential hypertension with goal blood pressure less than 140/90 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) documented in this encounter Advance Directives Documents on File Type Date Recorded 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
--- OUTSIDE RECORDS SUMMARY | 2022-11-16 13:19 | External Medical Summary | Summary of Care ---
Author Name Unknown Organization [place] [address] Care Team Providers Care Video Effects Editor Name Role Phone Smith Orozco MD Primary Care Provider Encounter Details Date Type Department Care Team Description 02/22/2019 Scan Encounter Unspecified Department <No scans attached> Allergies Active Allergy Reactions Severity Noted Date Comments Acetaminophen Renal complications 04/27/2009 Aspirin 08/13/2000 Stomach pain Cholestyramine 08/13/2000 Kidney pain Atorvastatin Calcium 04/28/2007 cramping Niacin Muscle pain 07/22/2007 Simvastatin Hives 08/13/2000 Ezetimibe 04/28/2007 Cramping ankles, turned feet inward documented as of this encounter (statuses as of 02/23/2019) Medications Medication Sig Dispensed Refills Start Date [...] Terazosin HCl 2 MG CapsuleIndications:A therosclerosis of [place] coronary artery of [place] heart without angina pectoris,BPH with obstruction/lower urinary tract symptoms,Essential hypertension with goal blood pressure less than 140/90 TAKE 1 CAP BY MOUTH AT BEDTIME. 90 Cap 3 02/16/2018 Active ONETOUCH ULTRASOFT LANCETS MISCIndications:Type 2 diabetes mellitus with hemoglobin A1c goal of less than 8.0% ([facility]) USE ONE LANCET TO TEST BLOOD SUGAR LEVELS TWICE A DAY 300 Each 3 08/24/2018 Active ONETOUCH ULTRA BLUE STRPIndications:Type 2 diabetes mellitus with hemoglobin A1c goal of less than 8.0% ([facility]) USE ONE TEST STRIP TO [...] goal of less than 8.0% ([facility]) TAKE 1 TABLET BY MOUTH TWICE A DAY WITH MEALS 180 Tab 1 10/12/2018 Active omeprazole (PRILOSEC) 20 MG CPDRIndications:Pept ic ulcer Take 1 Cap by mouth daily. 90 Cap 1 01/21/2019 Active amLODIPine (NORVASC) 5 MG Tablet TAKE 1 TABLET BY MOUTH TWICE A DAY 180 Tab 1 02/03/2019 Active glipiZIDE XL (GLUCOTROL XL) 10 MG [id number]:Type 2 diabetes mellitus with hemoglobin A1c goal of less than 8.0% ([facility]) TAKE 1 TABLET BY MOUTH TWICE A DAY 180 Tab 1 02/05/2019 Active documented as of this encounter (statuses as of 02/23/2019) Active Problems Problem Noted Date Type 2 [...] as of this encounter (statuses as of 02/23/2019) Resolved Problems Problem Noted Date Resolved Date Gen[employer] Cardio Research Other*[id number] 201004/22/2016 Overview: Study Titile: Genomics Markers for Patients with Cardiovascular Disease Project # [id number] PI: Amalia Kingsley MD Please call [phone] with study related questions HTN, goal below [...] as of this encounter (statuses as of 02/23/2019) Immunizations Name Administration Dates Next Due Pneumococcal [...] Encounter Surgery Quincy Paiz MD [address] [place] [address], [place] [address] [phone] 03/01/2019 Surgery Surgery Quincy Paiz MD [address] [place] [address], [place] [address] left EXTRACAPSULAR CATARACT REMOVAL WITH INTRAOCULAR LENS 03/23/2019 Office Visit Dermatology Kim Kong MD [address] [place] [address] [phone] 03/31/2019 Office Visit Cardiology Alcon Lott PA-C [address] [place] [address] [phone] 08/04/2019 Office Visit Internal Medicine Smith Orozco MD [address] [place] [address] [place] [address] [phone] 02/14/2020 Imaging Radiology Health Maintenance Due Date Last Done Comments Zoster Vaccines (2 of 3) 01/10/2012 11/15/2011 DIABETES-HGBA1C EVERY 6 MONTHS 02/18/2019 08/19/2018, 02/18/2018, 08/12/2017, Additional history exists *DEPRESSION SCREENING,ANNUAL FOR PTS 12 AND OVER 02/20/2019 Yearly B-12 08/20/2019 08/19/2018, 08/12/2017 DIABETES-EYE EXAM [...] of this encounter Implants Implanted Type Area First Aid Teacher Device Identifier Shelf Expiration Date Model / Serial / Lot Marker Coronary Am-Sd - [id number] Implanted:Qty: 1 on 12/26/2010 at OR [facility] N/A: Heart [employer] 10/13/2013 AM-[facility] / / [id number] Sut Steel 6 M654g - [id number] Implanted:Qty: 5 on 12/26/2010 at [place] [facility] Chest DO NOT USE 10/14/2015 M654G / / [id number] Alonso [facility] 225-482 - [id number] Implanted:Qty: 1 on 12/26/2010 at OR [facility] Chest [employer] 225-520 / / [id number] Lens Intraoc 17.5 - [id number] - [id number] Implanted:Qty: 1 on 02/07/2019 by Quincy Paiz MD at OR [facility] Right: Eye [employer]OM[employer] 08/14/2023 [id number] / [id number] / [id number] documented as of this encounter Advance Directives Documents on File Type Date Recorded Patient Medical Technologist Prn Expl 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
--- OUTSIDE RECORDS SUMMARY | 2022-11-16 13:19 | External Medical Summary | Summary of Care ---
Author Name Unknown Organization [place] [address] Care Team Providers Care Lodge Attendant Name Role Phone Smith Orozco MD Primary Care Provider Reason for Visit * Reason Comments Pt Portal Med Renewal Encounter Details Date Type Department Care Team Description 01/20/2019 Refill Internal Medicine [address] [address] Smith Orozco MD [address] [place] [address] [place] [address] [phone] PEPTIC ULCER NOS Allergies Active Allergy Reactions Severity Noted Date Comments Acetaminophen Renal complications 04/27/2009 Aspirin 08/13/2000 Stomach pain Cholestyramine 08/13/2000 Kidney pain Atorvastatin Calcium 04/28/2007 cramping Niacin Muscle pain 07/22/2007 Simvastatin Hives 08/13/2000 Ezetimibe 04/28/2007 Cramping ankles, turned feet inward documented as of this encounter (statuses as of 01/21/2019) Medications Medication Sig Dispensed Refills Start Date [...] Terazosin HCl 2 MG CapsuleIndications :Atherosclerosis of [place] coronary artery of [place] heart without angina pectoris,BPH with obstruction/lower urinary [...] Additional information Patient not taking. Reported on 09/28/2018 7:55 AM glipiZIDE XL (GLUCOTROL XL) 10 MG [id number]:Ty pe 2 diabetes mellitus with hemoglobin A1c [...] mouth daily. 90 Cap 1 01/21/2019 Active omeprazole (PRILOSEC) 20 MG CPDRIndications:Pe ptic ulcer TAKE ONE CAPSULE BY MOUTH DAILY ONE HOUR PRIOR TO THE FIRST MEAL OF THE DAY 90 Cap 1 07/19/2018 9 Discontinue d(Refill) documented as of this encounter (statuses as of 01/21/2019) Active Problems Problem Noted Date Type 2 [...] as of this encounter (statuses as of 01/21/2019) Resolved Problems Problem Noted Date Resolved Date Genomics Cardio Research Other*[id number] 201004/22/2016 Overview: Study Titile: Genomics Markers for Patients with Cardiovascular Disease Project # [id number] PI: Amalia Kingsley MD Please call [phone] with study related questions HTN, goal below [...] as of this encounter (statuses as of 01/21/2019) Immunizations Name Administration Dates Next Due Pneumococcal [...] encounter Miscellaneous Notes * Telephone Encounter - Pierre Nath MD - 01/21/2019 12:38 PM EST Signed Prescriptions: Disp Refills omeprazole (PRILOSEC) 20 MG CPDR 90 Cap 1 Sig: Take 1 Cap by mouth daily. Authorizing Provider: PIERRE NATH * Telephone Encounter - Claudia Zuniga LPN - 01/21/2019 8:59 AM EST Pending Prescriptions: Disp Refills omeprazole (PRILOSEC) 20 MG CPDR 90 Cap 1 Last Office Visit: 08/19/2018 Next Office Visit: 01/24/2019 Scheduled Provider(s): Lena Mckeon PA-C Last date the medication was ordered: 07.29.18 Patient Active Problem List Diagnosis Code GENERAL OSTEOARTHROSIS M15.9 Atherosclerosis of [place] coronary artery of [place] heart without angina pectoris I25.10 ADVANCE DIRECTIVE [...] and hypertension (HCC) E11.22, I12.9, N18.2 [place] (myocardial infarction) I25.2 Labs: CREATININE(mg/dL) Lucía Dt/Tm [...] 08/12/17 7.0* FINAL * Telephone Encounter - Claudia Zuniga LPN - 01/21/2019 8:58 AM EST Message from [facility]: Cl Reynolds would like a refill of the following medications: omeprazole (PRILOSEC) 20 MG CPDR [Smith Orozco MD] Preferred pharmacy: [id number] documented in this encounter Plan of Treatment Upcoming Encounters Date Type Specialty Care Team Description 01/24/2019 Office Visit Internal Medicine Lena Mckeon, JESSICA [address] [place] [address] Dr [place], [place] [address] [phone] 02/07/2019 Hospital Encounter Surgery Quincy Paiz MD [address] [address] [phone] 02/07/2019 Surgery Surgery Quincy Paiz MD [address] [address] [phone] right EXTRACAPSULAR CATARACT REMOVAL WITH INTRAOCULAR LENS 02/08/2019 Imaging Radiology 03/01/2019 Hospital Encounter Surgery Quincy Paiz MD [address] [address] [phone] 03/01/2019 Surgery Surgery Quincy Paiz MD [address] [address] [phone] left EXTRACAPSULAR CATARACT REMOVAL WITH INTRAOCULAR LENS 03/23/2019 Office Visit Dermatology Kim Kong MD [address] [place] [address] [phone] 03/31/2019 Office Visit Cardiology Alcon Lott PA-Adelfo [address] [facility] [place] [address] [phone] Health Maintenance Due Date Last Done Comments [...] of this encounter Implants Implanted Type Area Director Of Loss Prevention Device Identifier Shelf Expiration Date Model / Serial / Lot Marker Coronary [facility]-Sd - [id number] Implanted:Qty: 1 on 12/26/2010 [place] [facility] [place] N/A: Heart [employer] 10/13/2013 AM-[place] / / [id number] Sut Steel 6 M654g - [id number] Implanted:Qty: 5 on 12/26/2010 at [place] [facility] [place] Chest DO NOT USE 10/14/2015 M654G / / [id number] Band Ankur 225-787 - [id number] Implanted:Qty: 1 on 12/26/2010 at [place] [facility] [place] Chest [employer] 960-356 / / [id number] documented as of this encounter Visit Diagnoses Diagnosis PEPTIC ULCER NOS Peptic ulcer, unspecified site, unspecified as acute or chronic, without mention of hemorrhage, perforation, or obstruction documented in this encounter Advance Directives Documents on File Type Date Recorded 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
--- OUTSIDE RECORDS SUMMARY | 2022-11-16 13:19 | External Medical Summary | Summary of Care ---
Author Name Unknown Organization [facility] Address [facility] [place] [address] Care Team Providers Care Men'S Basketball Coach Name Role Phone Smiht Orozco MD Primary Care Provider [phone] Reason for Visit * Reason Comments Medication Administration Flu and/or Pne umo Inj Encounter Details Date Type Department Care Team Description 11/22/2018 Immunization/In jection Ancillary [address] [place] [address] [place] [address] [place] [id number] Need for prophylactic vaccination and inoculation against influenza* Allergies Active Allergy Reactions Severity Noted Date Comments Acetaminophen Renal complications 04/27/2009 Aspirin 08/13/2000 Stomach pain Cholestyramine 08/13/2000 Kidney pain Atorvastatin Calcium 04/28/2007 cramping Niacin Muscle pain 07/22/2007 Simvastatin Hives 08/13/2000 Ezetimibe 04/28/2007 Cramping ankles, turned feet inward documented as of this encounter (statuses as of 11/22/2018) Medications Medication Sig Dispensed Refills Start Date [...] Terazosin HCl 2 MG CapsuleIndications:At herosclerosis of inupiat coronary artery of inupiat heart without angina pectoris,BPH with obstruction/lower urinary [...] Active glipiZIDE XL (GLUCOTROL XL) 10 MG [id number]:Type 2 diabetes mellitus with hemoglobin A1c goal of less than 8.0% ([facility]) Take 1 Tab by mouth 2 times a day. 180 Tab 1 08/04/2018 Active amLODIPine (NORVASC) 5 MG Tablet Take 1 Tab by mouth 2 times a day. 180 Tab 1 08/13/2018 Active ONETOUCH ULTRASOFT LANCETS MISCIndications:Type 2 diabetes mellitus with hemoglobin A1c goal of less than 8.0% ([facility]) USE ONE LANCET TO TEST BLOOD SUGAR LEVELS TWICE A DAY 300 Each 3 08/24/2018 Active ONETOUCH ULTRA BLUE STRPIndications:Type 2 diabetes mellitus with hemoglobin A1c goal of less than 8.0% ([facility]) USE ONE TEST STRIP TO TEST BLOOD [...] as of this encounter (statuses as of 11/22/2018) Active Problems Problem Noted Date Type 2 [...] to patient at prior appointment. Atherosclerosis of inupiat co ronary artery of inupiat heart without angina pectoris 11/30/2001 GENERAL OSTEOARTHROSIS Multiple pulmonary nodules Complex renal cyst Overview: 3.8 cm; L [place] (myocardial infarction) documented as of this encounter (statuses as of 11/22/2018) Resolved Problems Problem Noted Date Resolved Date Genomics Cardio Research Other*[id number] 201004/22/2016 Overview: Study Titile: Genomics Markers for Patients with Cardiovascular Disease Project # [id number] PI: Amalia Kingsley MD Please call [phone] with study related questions HTN, goal below [...] as of this encounter (statuses as of 11/22/2018) Immunizations Name Administration Dates Next Due Pneumococcal [...] Pressure - - Pulse - - Temperature 36 C (96.8 F) 11/22/2018 8:45 AM EDT Respiratory Rate - - Oxygen Saturation - - Inhaled Oxygen Concentration - - Weight - - Height - - Body Mass Index - - documented in this encounter Progress Notes * Ginny Hall LPN - 11/22/2018 8:45 AM EDT PRE - ADMINISTRATION DOCUMENTATION Are you allergic to latex? No Are you experiencing any cold symptoms or fever? No Have you had Guillain-[place] Syndrome (an illness that causes paralysis)? No Have you had the flu shot in the past? YES Have you ever had a reaction to the flu shot? No Ginny Hall LPN, 11/22/2018 8:45 AM Immunization Administration Documentation Time Out Procedure Performed: Yes Patient Identified (Ask Name/Date of ): Does the patient have a fever greater [...] Office Visit Internal Medicine Smith Orozco MD [address] [place] [address] [place] [address] [phone] 03/23/2019 Office Visit Dermatology Kim Kong MD [address] [place], [place] [address] [address] [phone] 03/31/2019 Office Visit Cardiology Alcon Lott PA-C [address] [facility] [place] [address] [phone] Health Maintenance Due Date Last Done Comments [...] of this encounter Implants Implanted Type Area Rolls Mill Operator Device Identifier Shelf Expiration Date Model / Serial / Lot Marker Coronary Am-Sd - [id number] Implanted:Qty: 1 on 12/26/2010 at OR [facility] N/A: Heart [employer] 10/13/2013 [facility] / / [id number] Sut Steel 6 M654g - [id number] Implanted:Qty: 5 on 12/26/2010 at OR [facility] Chest DO NOT USE 10/14/2015 M654G / / [id number] Band Ankur 225-794 - [id number] Implanted:Qty: 1 on 12/26/2010 at OR [facility] Chest [employer] 225-241 / / [id number] documented as of this encounter Visit Diagnoses Diagnosis Need for prophylactic vaccination and inoculation against influenza- Primary documented in this encounter Advance Directives Documents on File Type Date Recorded 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
--- OUTSIDE RECORDS SUMMARY | 2022-11-16 13:19 | External Medical Summary | Summary of Care ---
Author Name Unknown Organization [facility] Address [facility] [place] [address] Care Team Providers Care Meat Smoker Name Role Phone Smith Orozco MD Primary Care Provider [phone] Reason for Visit * Reason Comments Test Results Encounter Details Date Type Department Care Team Description 02/09/2019 Telephone Cardiology, [facility] [address] [place] [address] Alcon Lott PA-C [address] [facility] [place] [address] [phone] Test Results Allergies Active Allergy Reactions Severity Noted Date Comments Acetaminophen Renal complications 04/27/2009 Aspirin 08/13/2000 Stomach pain Cholestyramine 08/13/2000 Kidney pain Atorvastatin Calcium 04/28/2007 cramping Niacin Muscle pain 07/22/2007 Simvastatin Hives 08/13/2000 Ezetimibe 04/28/2007 Cramping ankles, turned feet inward documented as of this encounter (statuses as of 02/17/2019) Medications Medication Sig Dispensed Refills Start Date [...] Terazosin HCl 2 MG CapsuleIndications:A therosclerosis of august[place] coronary artery of august[place] heart without angina pectoris,BPH with obstruction/lower urinary [...] Active glipiZIDE XL (GLUCOTROL XL) 10 MG [id number]:Type 2 diabetes mellitus with hemoglobin A1c goal of less than 8.0% ([facility]) TAKE 1 TABLET BY MOUTH TWICE A DAY 180 Tab 1 02/05/2019 Active documented as of this encounter (statuses as of 02/17/2019) Active Problems Problem Noted Date Type 2 [...] to patient at prior appointment. Atherosclerosis of augustine co ronary artery of augustine heart without angina pectoris 11/30/2001 GENERAL OSTEOARTHROSIS Multiple pulmonary nodules Complex renal cyst Overview: 3.8 cm; L [place] (myocardial infarction) documented as of this encounter (statuses as of 02/17/2019) Resolved Problems Problem Noted Date Resolved Date Genomics Cardio Research Other*[id number] 201004/22/2016 Overview: Study Titile: Genomics Markers for Patients with Cardiovascular Disease Project # [id number] PI: Amalia Kingsley MD Please call [phone] with study related questions HTN, goal below [...] as of this encounter (statuses as of 02/17/2019) Immunizations Name Administration Dates Next Due Pneumococcal [...] encounter Miscellaneous Notes * Telephone Encounter - Kerri Mckinley OSA - 02/14/2019 10:37 AM EST Appt 02/14/20 @ 930 in MoV. MyG sent to notify. * Telephone Encounter - Suzan Alcantar RN - 02/09/2019 11:50 AM EST MyG sent with results. Order pended for 1 year repeat. * Telephone Encounter - Suzan Alcantar RN - 02/09/2019 11:49 AM EST ----- Message from Alcon Lott PA-C sent at 02/08/2019 12:38 PM EST ----- Relatively stable - 50 to 69% CRISTI stenosis, mild (<50%) LICA. Repeat duplex in 12 months documented in this encounter Plan of Treatment Upcoming Encounters Date Type Specialty Care Team Description 03/01/2019 Hospital Encounter Surgery Quincy Paiz MD [facility] [place] [address] [address] [phone] 03/01/2019 Surgery Surgery Quincy Paiz MD [address] [address] [phone] EXTRACAPSULAR CATARACT REMOVAL WITH INTRAOCULAR LENS 03/23/2019 Office Visit Dermatology Kim Kong MD [address] [place] [address] [phone] 03/31/2019 Office Visit Cardiology [facility]ott [facility]C [facility] [address] [phone] 08/04/2019 Office Visit Internal Medicine Smith Orozco MD [address] [place] [address] [place] [address] [phone] 02/14/2020 Imaging Radiology Scheduled Orders Name Type Priority Associated Diagnoses Orde r Schedule VASC DUPLEX CAROTID BILAT Medical Imaging Routine Carotid stenosis, non-symptomatic Expected: 02/10/2020, Expires: 08/09/2020 Health Maintenance Due Date Last Done Comments [...] of this encounter Implants Implanted Type Area Branch Manager Trainee Device Identifier Shelf Expiration Date Model / Serial / Lot Marker Coronary [facility]-Sd - [id number] Implanted:Q[place]: 1 on 12/26/2010 [place] [facility] [place]A: Heart [employer] 10/13/2013 [facility] / / [id number] Sut Steel 6 M654g - [id number] Implanted:Qty: 5 on 12/26/2010 [place] [facility] [place] Chest DO NOT USE 10/14/2015 M654G / / [id number] Al[facility] 225-360 - [id number] Implanted:Qty: 1 on 12/26/2010 [place] [facility] [place] Chest [employer] 225-241 / / [id number] Lens Intraoc 17.5 - [id number] - [id number] Implanted:Qty: 1 on 02/07/2019 by Quincy Paiz MD at [facility] Right: Eye [employer] 08/14/2023 [id number] / [id number] / [id number] documented as of this encounter Visit Diagnoses Diagnosis Carotid stenosis, non-symptomatic- Primary Occlusion and stenosis of carotid artery without mention of cerebral infarction documented in this encounter Advance Directives Documents on File Type Date Recorded 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
--- OUTSIDE RECORDS SUMMARY | 2022-11-16 13:19 | External Medical Summary ---
Author Name Unknown Address Unknown Organization R:IT USE ONLY!!! Laboratory Report Ordering Provider Test Date Status TRINI CHACON 02/07/2019 06:46:00 Final Observation Date Value Abnormality Reference Status Glucose Point of Care 02/07/2019 15:44 170 Above high normal 70-120 Final Performing Location IT USE ONLY!!!
--- OUTSIDE RECORDS SUMMARY | 2022-11-16 13:20 | External Medical Summary | Summary of Care ---
Author Name Unknown Organization [place] [address] Care Team Providers Care Piping Blocker Name Role Phone Smith Orozco MD Primary Care Provider [phone] Reason for Visit * Reason Comments eRx-Medication Refill Encounter Details Date Type Department Care Team Description 09/03/2018 Refill Internal Medicine [address] [address] Smith Orozco MD [address] [place] [address] [place] [address] [phone] HTN, goal below 140/80; BPH with obstruction/lower urinary tract symptoms Allergies Active Allergy Reactions Severity Noted Date Comments Acetaminophen Renal complications 04/27/2009 Aspirin 08/13/2000 Stomach pain Cholestyramine 08/13/2000 Kidney pain Atorvastatin Calcium 04/28/2007 cramping Niacin Muscle pain 07/22/2007 Simvastatin Hives 08/13/2000 Ezetimibe 04/28/2007 Cramping ankles, turned feet inward documented as of this encounter (statuses as of 09/03/2018) Medications Medication Sig Dispensed Refills Start Date [...] Terazosin HCl 2 MG CapsuleIndications :Atherosclerosis of alat[place] coronary artery of [place] heart without angina pectoris,BPH with obstruction/lower urinary [...] 1 02/19/2018 Active MetFORMIN (GLUCOPHAGE) 1000 MG TabletIndications: Type 2 diabetes mellitus with diabetic nephropathy (HCC),Type 2 diabetes mellitus with hemoglobin A1c goal of less than 8.0% (HCC) TAKE 1 TABLET BY MOUTH TWICE A DAY WITH MEALS 180 Tab 1 04/21/2018 Active omeprazole (PRILOSEC) 20 MG CPDRIndications:Pe ptic ulcer TAKE ONE CAPSULE BY MOUTH DAILY ONE HOUR PRIOR TO THE FIRST MEAL OF THE DAY 90 Cap 1 07/19/2018 Active glipiZIDE XL (GLUCOTROL XL) 10 MG [id number]:Ty pe 2 diabetes mellitus with hemoglobin A1c [...] MOUTH DAILY. 90 Tab 1 09/03/2018 Active losartan (COZAAR) 50 MG TabletIndications: HTN, goal below 140/80 TAKE ONE TABLET BY MOUTH TWICE A DAY 180 Tab 1 03/17/2018 9 Discontinued finasteride (PROSCAR) 5 MG TabletIndications: BPH with obstruction/lower urinary tract symptoms TAKE 1 TABLET BY MOUTH DAILY. 90 Tab 1 03/17/2018 9 Discontinued documented as of this encounter (statuses as of 09/03/2018) Active Problems Problem Noted Date Type 2 [...] to patient at prior appointment. Atherosclerosis of [place] co ronary artery of al[place] heart without angina pectoris 11/30/2001 GENERAL OSTEOARTHROSIS Multiple pulmonary nodules Complex renal cyst Overview: 3.8 cm; L Old [place] (myocardial infarction) documented as of this encounter (statuses as of 09/03/2018) Resolved Problems Problem Noted Date Resolved Date Genomics Cardio Research Other*[id number] 201004/22/2016 Overview: Study Titile: Genomics Markers for Patients with Cardiovascular Disease Project # [id number] PI: Amalia Kingsley MD Please call [phone] with study related questions HTN, goal below [...] as of this encounter (statuses as of 09/03/2018) Immunizations Name Administration Dates Next Due Pneumococcal [...] encounter Miscellaneous Notes * Telephone Encounter - Stefania Bar PA-C - 09/03/2018 12:20 PM EDT Signed Prescriptions: Disp Refills losartan (COZAAR) 50 MG Tablet 180 Tab1 Sig: TAKE ONE TABLET BY MOUTH TWICE A DAY Authorizing Provider: STEFANIA BAR finasteride (PROSCAR) 5 MG Tablet 90 Tab 1 Sig: TAKE 1 TABLET BY MOUTH DAILY. Authorizing Provider: STEFANIA BAR * Telephone Encounter - Kasey Rosales LPN - 09/03/2018 12:02 PM EDT Pending Prescriptions: Disp Refills losartan (COZAAR) 50 MG Tablet [Pharmacy *180 Tab1 Sig: TAKE ONE TABLET BY MOUTH TWICE A DAY finasteride (PROSCAR) 5 MG Tablet [Pharma*90 Tab 1 Sig: TAKE 1 TABLET BY MOUTH DAILY. * Telephone Encounter - Kasey Rosales LPN - 09/03/2018 12:01 PM EDT Pending Prescriptions: Disp Refills losartan (COZAAR) 50 MG Tablet [Pharmacy *180 Tab1 Sig: TAKE ONE TABLET BY MOUTH TWICE A DAY finasteride (PROSCAR) 5 MG Tablet [Pharma*90 Tab 1 Sig: TAKE 1 TABLET BY MOUTH DAILY. Last Office Visit: 08/19/2018 Next Office Visit: 02/21/2019 Scheduled Provider(s): Smith Orozco MD Last date the medication was ordered: 03/17/18 Patient Active Problem List Diagnosis Code GENERAL OSTEOARTHROSIS M15.9 Atherosclerosis of alat[place] coronary artery of alat[place] heart without angina pectoris I25.10 ADVANCE DIRECTIVE [...] and hypertension (HCC) E11.22, I12.9, N18.2 [place] (myocardial infarction) I25.2 Labs: CREATININE(mg/dL) Lucía Dt/Tm [...] 7.1* FINAL 08/12/17 2:08P 08/12/17 7.0* FINAL documented in this encounter Plan of Treatment Upcoming Encounters Date Type Specialty Care Team Description 09/28/2018 Office Visit Cardiology Alcon Lott PA-C [address] [facility] [place] [address] 10/04/2018 Office Visit Dermatology Kim Kong MD [facility] [address] [phone] 02/08/2019 Imaging Radiology 02/21/2019 Office Visit Internal Medicine Smith Orozco MD [address] [place] [address] [place] [address] Health Maintenance Due Date Last Done Comments DIABETES-EYE EXAM 11/05/2018 11/05/2017, , 09/26/2014, Additional history exists DIABETES-FOOT EXAM 02/18/2019 02/18/2018, 1 04/01/2016, 01/24/2016, Additional history exists DIABETES-HGBA1C EVERY 6 MONTHS 02/18/2019 08/19/2018, 02/18/2018, 08/12/2017, Additional history exists Yearly B-12 08/20/2019 08/19/2018, 08/12/2017 DTaP,Tdap,and Td Vaccines (2 - Td) 08/05/2022 08/05/2012, 03/16/2003 PNEUMOCOCCAL ADULT 65 YRS AND OVER Completed 10/16/2015, 12/15/2006, 04/01/2002 Influenza Vaccine (FLU shot) Completed 06/2017, 11/21/2016, 11/27/2015, Additional history exists MENINGOCOCCAL (MENACTRA) Aged Out No longer eligible based on patient's age to complete this topic documented as of this encounter Implants Implanted Type Area Parking Enforcement Specialist Device Identifier Shelf Expiration Date Model / Serial / Lot Marker Coronary [facility]-Sd - [id number] Implanted:Qty: 1 on 12/26/2010 at [place] [facility] [place] N/A: Heart [employer] 10/13/2013 [facility] / / [id number] Sut Steel 6 M654g - [id number] Implanted:Qty: 5 on 12/26/2010 at [place] [facility] Chest DO NOT USE 10/14/2015 M654G / / [id number] Band Ankur 225-331 - [id number] Implanted:Qty: 1 on 12/26/2010 at [place] [facility] Chest [employer] 225-092 / / [id number] documented as of this encounter Visit Diagnoses Diagnosis HTN, goal below 140/80 Unspecified essential hypertension BPH with obstruction/lower urinary tract symptoms Hypertrophy of prostate with urinary obstruction and other lower urinary tract symptoms (LUTS) documented in this encounter Advance Directives Documents on File Type Date Recorded 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
--- OUTSIDE RECORDS SUMMARY | 2022-11-16 13:20 | External Medical Summary | Summary of Care ---
Author Name Unknown Organization [place] [address] Care Team Providers Care Marketing Communication Manager Name Role Phone Smith Danielle MD Primary Care Provider [phone] Reason for Visit * Reason Comments eRx-Medication Refill Medication Refill Encounter Details Date Type Department Care Team Description 08/24/2018 Refill Internal Medicine [address] [address] Smith Danielle MD [address] [place] [address] [place] [id number] Type 2 diabetes mellitus with hemoglobin A1c goal of less than 8.0% ([facility]) Allergies Active Allergy Reactions Severity Noted Date Comments Acetaminophen Renal complications 04/27/2009 Aspirin 08/13/2000 Stomach pain Cholestyramine 08/13/2000 Kidney pain Atorvastatin Calcium 04/28/2007 cramping Niacin Muscle pain 07/22/2007 Simvastatin Hives 08/13/2000 Ezetimibe 04/28/2007 Cramping ankles, turned feet inward documented as of this encounter (statuses as of 08/26/2018) Medications Medication Sig Dispensed Refills Start Date [...] Terazosin HCl 2 MG CapsuleIndications :Atherosclerosis of [place] coronary artery of [place] heart without angina pectoris,BPH with obstruction/lower urinary [...] for diabetes 90 Tab 1 02/19/2018 Active losartan (COZAAR) 50 MG TabletIndications: HTN, goal below 140/80 TAKE ONE TABLET BY MOUTH TWICE A DAY 180 Tab 1 03/17/2018 Active finasteride (PROSCAR) 5 MG TabletIndications: BPH with obstruction/lower urinary tract symptoms TAKE 1 TABLET BY MOUTH DAILY. 90 Tab 1 03/17/2018 Active MetFORMIN (GLUCOPHAGE) 1000 MG TabletIndications: Type [...] Active glipiZIDE XL (GLUCOTROL XL) 10 MG [id number]:Ty pe 2 diabetes mellitus with hemoglobin A1c [...] A DAY 300 Strip 3 08/24/2018 Active ONETOUCH ULTRASOFT LANCETS MISCIndications:Ty pe 2 diabetes mellitus with hemoglobin A1c goal of less than 8.0% (HCC) USE TO TEST DIRECTED 2 TIMES A DAY. 200 Each 5 07/30/2017 9 Discontinued ONETOUCH ULTRA BLUE STRPIndications:Ty pe 2 diabetes mellitus with hemoglobin A1c goal of less than 8.0% (HCC) USE TO TEST TWICE A DAY DX: E11.9 200 Strip 5 07/30/2017 9 Discontinued documented as of this encounter (statuses as of 08/26/2018) Active Problems Problem Noted Date Type 2 [...] at prior appointment. Atherosclerosis of [place] co ronary artery of [place] heart without angina pectoris 11/30/2001 GENERAL OSTEOARTHROSIS Multiple pulmonary nodules Complex renal cyst Overview: 3.8 cm; L Old MA (myocardial infarction) documented as of this encounter (statuses as of 08/26/2018) Resolved Problems Problem Noted Date Resolved Date [employer] Cardio Research Other*[id number] 201004/22/2016 Overview: Study Titile: Genomics Markers for Patients with Cardiovascular Disease Project # [id number] PI: Amalia Kingsley MD Please call [phone] with study related questions HTN, goal below [...] as of this encounter (statuses as of 08/26/2018) Immunizations Name Administration Dates Next Due Pneumococcal [...] encounter Miscellaneous Notes * Telephone Encounter - Carolyn Aviles PHARM Tech - 08/26/2018 9:53 AM EDT Pt called to see how many test strips doctor ordered. Explained 300 strips for a 3 month supply that actually would be a little more then needed. He is going to call [facility] and find out why they only gave him 100 test strips. Thank you Carolyn Aviles Centrifugal Casting Machine Operator Refill Call Center 08/26/2018, 9:54 AM * Telephone Encounter - Smith Danielle MD - 08/24/2018 11:09 AM EDT Signed Prescriptions: Disp Refills ONETOUCH ULTRASOFT LANCETS MISC 300 Ea*3 Sig: USE ONE LANCET TO TEST BLOOD SUGAR LEVELS TWICE A DAY Authorizing Provider: SMITH DANIELLE ONETOUCH ULTRA BLUE STRP 300 St*3 Sig: USE ONE TEST STRIP TO TEST BLOOD SUGAR LEVELS TWICE A DAY Authorizing Provider: SMITH DANIELLE * Telephone Encounter - Janell Stover LPN - 08/24/2018 10:41 AM EDT Pending Prescriptions: Disp Refills ONETOUCH ULTRASOFT LANCETS MISC [Pharmacy*300 Ea*3 Sig: USE ONE LANCET TO TEST BLOOD SUGAR LEVELS TWICE A DAY ONETOUCH ULTRA BLUE STRP [Pharmacy Med Na*300 St*3 Sig: USE ONE TEST STRIP TO TEST BLOOD SUGAR LEVELS TWICE A DAY * Telephone Encounter - Kasey Rosales LPN - 08/24/2018 10:40 AM EDT Pending Prescriptions: Disp Refills ONETOUCH ULTRASOFT LANCETS MISC [Pharmacy*300 Ea*3 Sig: USE ONE LANCET TO TEST BLOOD SUGAR LEVELS TWICE A DAY ONETOUCH ULTRA BLUE STRP [Pharmacy Med Na*300 St*3 Sig: USE ONE TEST STRIP TO TEST BLOOD SUGAR LEVELS TWICE A DAY * Telephone Encounter - Kasey Rosales LPN - 08/24/2018 10:39 AM EDT Pending Prescriptions: Disp Refills ONETOUCH ULTRASOFT LANCETS MISC [Pharmacy*300 Ea*3 Sig: USE ONE LANCET TO TEST BLOOD SUGAR LEVELS TWICE A DAY ONETOUCH ULTRA BLUE STRP [Pharmacy Med Na*300 St*3 Sig: USE ONE TEST STRIP TO TEST BLOOD SUGAR LEVELS TWICE A DAY Last Office Visit: 08/19/2018 Next Office Visit: 02/21/2019 Scheduled Provider(s): Smith Danielle MD Last date the medication was ordered: 07/30/17 Patient Active Problem List Diagnosis Code GENERAL OSTEOARTHROSIS M15.9 Atherosclerosis of [place] coronary artery of [place] heart without angina pectoris I25.10 ADVANCE DIRECTIVE INFORMATION DM TYPE 2 CAUSING RENAL DZ E11.29 Type 2 diabetes mellitus with hemoglobin A1c goal of less than 8.0% ([facility]) E11.9 DYSLIPIDEMIA, GOAL LDL BELOW 70 [...] and hypertension (HCC) E11.22, I12.9, N18.2 Old MA (myocardial infarction) I25.2 Labs: CREATININE(mg/dL) Lucía Dt/Tm [...] Office Visit Cardiology Alcon Lott PA-C [address] [facility] [place] [address] 10/04/2018 Office Visit Dermatology Kim Kong MD [address] [place] [address] [place] [address] [phone] 02/08/2019 Imaging Radiology 02/21/2019 Office Visit Internal Medicine Smith Danielle MD [address] [place] [address] [place] [address] [phone] Health Maintenance Due Date Last Done Comments [...] of this encounter Implants Implanted Type Area Material Preparation Worker Device Identifier Shelf Expiration Date Model / Serial / Lot Marker Coronary Am-Sd - [id number] Implanted:Qty: 1 on 12/26/2010 at OR [facility] N/A: Heart [employer] 10/13/2013 [employer]-SD / / [id number] Sut Steel 6 M654g - [id number] Implanted:Qty: 5 on 12/26/2010 at OR [facility] Chest DO NOT USE 10/14/2015 M654G / / [id number] Band Ankur 225-241 - [id number] Implanted:Qty: 1 on 12/26/2010 at OR [facility] Chest [employer] 225-055 / / [id number] documented as of this encounter Visit Diagnoses Diagnosis Type 2 diabetes mellitus with hemoglobin A1c goal of less than 8.0% (HCC) documented in this encounter Advance Directives Documents on File Type Date Recorded Patient Coordinator Of Rehabilitation Services Expl 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
--- OUTSIDE RECORDS SUMMARY | 2022-11-16 13:20 | External Medical Summary | Summary of Care ---
Author Name Unknown Organization [place] [address] Care Team Providers Care Event Marketing Assistant Name Role Phone Smith Orozco MD Primary Care Provider [phone] Reason for Visit * Reason Comments Medication Refill Encounter Details Date Type Department Care Team Description 08/12/2018 Refill Internal Medicine [address] [address] Smith Orozco MD [address] [place] [address] [place] [address] [phone] Allergies Active Allergy Reactions Severity Noted Date Comments Acetaminophen Renal complications 04/27/2009 Aspirin 08/13/2000 Stomach pain Cholestyramine 08/13/2000 Kidney pain Atorvastatin Calcium 04/28/2007 cramping Niacin Muscle pain 07/22/2007 Simvastatin Hives 08/13/2000 Ezetimibe 04/28/2007 Cramping ankles, turned feet inward documented as of this encounter (statuses as of 08/13/2018) Medications Medication Sig Dispensed Refills Start Date End Date Status GAVI 180 MG PO TABSIndications:All ergic rhinitis One pill by mouth once a day for allergies 30 5 07/23/2009 Active MAGNESIUM OXIDE 200 MG PO TABSIndications:Jewel Staker mp in limb one tablet twice a day 60 Tab 5 07/16/2010 Active SB LOW DOSE ASA EC 81 MG PO TBEC one tab three times weekly 0 Active MULTI-VITAMIN PO TABS one pill each day 0 Active tretinoin (RETIN-A) 0.05 % creamIndications:Ac tinic keratosis APPLY NIGHTLY TO FACE DIRECTED,CAN MIX WITH PONDS 45 g 5 03/25/2017 Active ONETOUCH ULTRASOFT LANCETS MISCIndications:Typ e 2 diabetes mellitus with hemoglobin A1c goal of less than 8.0% (HCC) USE TO TEST DIRECTED 2 TIMES A DAY. 200 Each 5 07/30/2017 Active ONETOUCH ULTRA BLUE STRPIndications:Typ e 2 diabetes mellitus with hemoglobin A1c goal of less than 8.0% (HCC) USE TO TEST TWICE A DAY DX: E11.9 200 Strip 5 07/30/2017 Active Terazosin HCl 2 MG CapsuleIndications: Atherosclerosis of [place] coronary artery of [place] heart without angina pectoris,BPH with obstruction/lower urinary tract symptoms,Essential hypertension with goal blood pressure less than 140/90 TAKE 1 CAP BY MOUTH AT BEDTIME. 90 Cap 3 02/16/2018 Active Meloxicam 7.5 MG TabletIndications:G eneralized osteoarthritis Take 1 Tab by mouth daily. for pain. 30 Tab 5 02/18/2018 Active glimepiride (AMARYL) 1 MG TabletIndications:T ype 2 diabetes mellitus with stage 2 chronic kidney disease, without long-term current use of insulin (HCC) Take 1 Tab by mouth daily. with the first main meal of the day for diabetes 90 Tab 1 02/19/2018 Active losartan (COZAAR) 50 MG TabletIndications:H TN, goal below 140/80 TAKE ONE TABLET BY MOUTH TWICE A DAY 180 Tab 1 03/17/2018 Active finasteride (PROSCAR) 5 MG TabletIndications:B PH with obstruction/lower urinary tract symptoms TAKE 1 TABLET BY MOUTH DAILY. 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 180 Tab 1 08/04/2018 Active amLODIPine (NORVASC) 5 MG Tablet Take 1 Tab by mouth 2 times a day. 180 Tab 1 08/13/2018 Active amLODIPine (NORVASC) 5 MG Tablet TAKE 1 TABLET BY MOUTH TWICE A DAY 180 Tab 1 02/16/2018 9 Discontinued documented as of this encounter (statuses as of 08/13/2018) Active Problems Problem Noted Date Type 2 [...] brochure given to patient at prior appointment. CORONARY ATHEROSCLER. OF [place] CORONARY VESSEL 11/30/2001 GENERAL OSTEOARTHROSIS Multiple pulmonary nodules Complex renal cyst Overview: 3.8 cm; L documented as of this encounter (statuses as of 08/13/2018) Resolved Problems Problem Noted Date Resolved Date Genomics Cardio Research Other*[id number] 201004/22/2016 Overview: Study Titile: Genomics Markers for Patients with Cardiovascular Disease Project # [id number] PI: Amalia Kingsley MD Please call [phone] with study related questions HTN, goal below [...] as of this encounter (statuses as of 08/13/2018) Immunizations Name Administration Dates Next Due Pneumococcal [...] Telephone Encounter - Karly Adler PA-C - 08/13/2018 8:25 AM EDT Signed Prescriptions: Disp Refills amLODIPine (NORVASC) 5 MG Tablet 180 Tab1 Sig: Take 1 Tab by mouth 2 times a day. Authorizing Provider: KARLY ADLER * Telephone Encounter - Chica Mcknight RP - 08/12/2018 6:50 PM EDT Pending Prescriptions: Disp Refills amLODIPine (NORVASC) 5 MG Tablet 180 Tab1 Sig: Take 1 Tab by mouth 2 times a day. * Telephone Encounter - Chica Mcknight RP - 08/12/2018 6:50 PM EDT Patient requesting refills for amlodipine. As per protocol, refill pharmacists only permitted to authorize prescriptions written by family practice PCPs. Please approve if appropriate. Thanks, Chica Mcknight, RadhaD, MS Clinical Pharmacist Telepharmacy 08/12/2018 6:50 PM * Telephone Encounter - Kisha Marie CPhT - 08/12/2018 7:34 AM EDT Pending Prescriptions: Disp Refills amLODIPine (NORVASC) 5 MG Tablet 180 Tab1 Sig: Take 1 Tab by mouth 2 times a day. Last Office Visit: 02/18/2018 Next Office Visit: 08/19/2018 Scheduled Provider(s): Smith Orozco MD If no future appointments scheduled, and last appointment is greater than a year ago, please schedule patient for a follow-up appointment Last date the medication was ordered: 02/16/2018 Patient Phone Numbers Labs: Lab Results Component Value Date/Time CREAT 1.1 03/18/2018 08:29 AM POTASSIUM 4.2 03/18/2018 08:29 AM TSH 3.81 04/28/2018 09:11 AM LDLCALC 123 08/12/2017 02:08 PM LDLDIRECT 101 02/04/2011 04:00 PM ALT 16 03/18/2018 08:29 AM HGBA1C 7.1 (H) 02/18/2018 11:12 AM documented in this encounter Plan of Treatment Upcoming Encounters Date Type Specialty Care Team Description 08/19/2018 Office Visit Internal Medicine Smith Orozco MD [address] [place] [address] [place] [phone] 09/28/2018 Office Visit Cardiology Karly Adler PA-C [address] [facility] [place] [address] [phone] 10/04/2018 Office Visit Dermatology Kim Kong MD [address] [place] [address] [place] [address] [phone] 02/08/2019 Imaging Radiology Health Maintenance Due Date Last Done Comments FOBT ANNUALLY,AGES 18-90 11/18/2013 013, 11/27/2010, 11/22/2009, Additional history exists DIABETES-EYE EXAM 10/09/2016 10/10/2015, , 09/20/2013, Additional history exists Yearly B-12 08/12/2018 08/12/2017 DIABETES-HGBA1C EVERY 6 MONTHS 08/19/2018 02/18/2018, 08/12/2017, 10/27/2016, Additional history exists DIABETES-FOOT EXAM 02/18/2019 02/18/2018, 1 04/01/2016, 01/24/2016, Additional history exists DTaP,Tdap,and Td Vaccines (2 - Td) 08/05/2022 08/05/2012, 03/16/2003 PNEUMOCOCCAL ADULT 65 YRS AND OVER Completed 10/16/2015, 12/15/2006, 04/01/2002 Influenza Vaccine (FLU shot) Completed 06/2017, 11/21/2016, 11/27/2015, Additional history exists MENINGOCOCCAL (MENACTRA) Aged Out No longer eligible based on patient's age to complete this topic documented as of this encounter Implants Implanted Type Area Teacher Industrial Arts Device Identifier Shelf Expiration Date Model / Serial / Lot Marker Coronary [facility]-Sd - [id number] Implanted:Qty: 1 on 12/26/2010 at OR [facility] N/A: Heart [employer] 10/13/2013 [facility] / / [id number] Sut Steel 6 M654g - [id number] Implanted:Qty: 5 on 12/26/2010 at OR [facility] Chest DO NOT USE 10/14/2015 M654G / / [id number] Band Ankur 225-241 - [id number] Implanted:Qty: 1 on 12/26/2010 at OR [facility] Chest [employer] 225-241 / / [id number] documented as of this encounter Advance Directives Documents on File Type Date Recorded 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
--- OUTSIDE RECORDS SUMMARY | 2022-11-16 13:20 | External Medical Summary | Summary of Care ---
Author Name Unknown Organization [place] [address] Care Team Providers Care Machine Folder Name Role Phone Smith Orozco MD Primary Care Provider [phone] Reason for Referral * Precert (Routine) Status Reason Specialty Diagnoses / Procedures Referred By Contact Referred To Contact Pending Review Precert Cardiac Studies Diagnoses Ischemic cardiomyopathy Procedures ECHO, COMPLETE (2D), TRANS-THORACIC Alcon Lott PA-C [address] [facility] [place] [address] Reason for Visit * Reason Comments Cardiology Study Echo Encounter Details Date Type Department Care Team Description 08/03/2018 Cardiac Studies Cardiac Studies [address] [place] [address] [place], Retort Engineer [address] [place] [address] [place] [phone] Ischemic cardiomyopathy* Allergies Active Allergy Reactions Severity Noted Date Comments Acetaminophen Renal complications 04/27/2009 Aspirin 08/13/2000 Stomach pain Cholestyramine 08/13/2000 Kidney pain Atorvastatin Calcium 04/28/2007 cramping Niacin Muscle pain 07/22/2007 Simvastatin Hives 08/13/2000 Ezetimibe 04/28/2007 Cramping ankles, turned feet inward documented as of this encounter (statuses as of 08/03/2018) Medications Medication Sig Dispensed Refills Start Date End Date Status GAVI 180 MG PO TABSIndications:Allerg ic rhinitis One pill by mouth once a day for allergies 30 5 07/23/2009 Active MAGNESIUM OXIDE 200 MG PO TABSIndications:Cramp in limb one tablet twice a day 60 Tab 5 07/16/2010 Active SB LOW DOSE ASA EC 81 MG PO TBEC one tab three times weekly 0 Active MULTI-VITAMIN PO TABS one pill each day 0 Active tretinoin (RETIN-A) 0.05 % creamIndications:Actin ic keratosis APPLY NIGHTLY TO FACE DIRECTED,CAN MIX WITH PONDS 45 g 5 03/25/2017 Active ONETOUCH ULTRASOFT LANCETS MISCIndications:Type 2 diabetes mellitus with hemoglobin A1c goal of less than 8.0% (HCC) USE TO TEST DIRECTED 2 TIMES A DAY. 200 Each 5 07/30/2017 Active ONETOUCH ULTRA BLUE STRPIndications:Type 2 diabetes mellitus with hemoglobin A1c goal of less than 8.0% (HCC) USE TO TEST TWICE A DAY DX: E11.9 200 Strip 5 07/30/2017 Active glipiZIDE XL (GLUCOTROL XL) 10 MG [id number]:Type 2 diabetes mellitus with hemoglobin A1c goal of less than 8.0% (HCC) TAKE 1 TABLET BY MOUTH TWICE A DAY 180 Tab 1 02/16/2018 Active amLODIPine (NORVASC) 5 MG Tablet TAKE 1 TABLET BY MOUTH TWICE A DAY 180 Tab 1 02/16/2018 Active Terazosin HCl 2 MG CapsuleIndications:Ath erosclerosis of [place] coronary artery of [place] heart without angina pectoris,BPH with obstruction/lower urinary tract symptoms,Essential hypertension with goal blood pressure less than 140/90 TAKE 1 CAP BY MOUTH AT BEDTIME. 90 Cap 3 02/16/2018 Active Meloxicam 7.5 MG TabletIndications:Gene ralized osteoarthritis Take 1 Tab by mouth daily. for pain. 30 Tab 5 02/18/2018 Active glimepiride (AMARYL) 1 MG TabletIndications:Type 2 diabetes mellitus with stage 2 chronic kidney disease, without long-term current use of insulin (HCC) Take 1 Tab by mouth daily. with the first main meal of the day for diabetes 90 Tab 1 02/19/2018 Active losartan (COZAAR) 50 MG TabletIndications:HTN, goal below 140/80 TAKE ONE TABLET BY MOUTH TWICE A DAY 180 Tab 1 03/17/2018 Active finasteride (PROSCAR) 5 MG TabletIndications:BPH with obstruction/lower urinary tract symptoms TAKE 1 TABLET BY MOUTH DAILY. 90 Tab 1 03/17/2018 Active MetFORMIN (GLUCOPHAGE) 1000 MG TabletIndications:Type 2 diabetes mellitus with diabetic nephropathy (HCC),Type 2 diabetes mellitus with hemoglobin A1c goal of less than 8.0% (HCC) TAKE 1 TABLET BY MOUTH TWICE A DAY WITH MEALS 180 Tab 1 04/21/2018 Active omeprazole (PRILOSEC) 20 MG CPDRIndications:Peptic ulcer TAKE ONE CAPSULE BY MOUTH DAILY ONE HOUR PRIOR TO THE FIRST MEAL OF THE DAY 90 Cap 1 07/19/2018 Active documented as of this encounter (statuses as of 08/03/2018) Active Problems Problem Noted Date Type 2 [...] patient at prior appointment. CORONARY ATHEROSCLER. OF [place] CORONARY VESSEL 11/30/2001 GENERAL OSTEOARTHROSIS Multiple pulmonary nodules Complex renal cyst Overview: 3.8 cm; L documented as of this encounter (statuses as of 08/03/2018) Resolved Problems Problem Noted Date Resolved Date Gen[employer] Cardio Research Other*[id number] 201004/22/2016 Overview: Study Titile: Genomics Markers for Patients with Cardiovascular Disease Project # [id number] PI: Amalia Kingsley MD Please call [phone] with study related questions HTN, goal below [...] as of this encounter (statuses as of 08/03/2018) Immunizations Name Administration Dates Next Due Pneumococcal [...] as of this encounter Progress Notes * Laura Beltrán TECH - 08/03/2018 8:32 AM EDT Echo completed today by pv design and installation technician per provider order. documented in this encounter Plan of Treatment Upcoming Encounters Date Type Specialty Care Team Description 08/03/2018 Imaging Radiology 08/19/2018 Office Visit Internal Medicine Smith Orozco MD [address] [place] [address] [place] [address] 09/28/2018 Office Visit Cardiology Alcon Lott PA-C [address] [facility] [place] [address] [phone] 10/04/2018 Office Visit Dermatology Kim Kong MD [address] [place] [address] [phone] Health Maintenance Due Date Last Done Comments [...] this encounter Implants Implanted Type Area Electric Sign Assembler Device Identifier Shelf Expiration Date Model / Serial / Lot Marker Coronary [facility]-Sd - [id number] Implanted:Qty: 1 on 12/26/2010 at OR [facility] N/A: Heart [employer] 10/13/2013 [employer]-SD / / [id number] Sut Steel 6 M654g - [id number] Implanted:Qty: 5 on 12/26/2010 at OR [facility] Chest DO NOT USE 10/14/2015 M654G / / [id number] Band Ankur 225-241 - [id number] Implanted:Qty: 1 on 12/26/2010 at OR [facility] Chest [employer] 225-547 / / [id number] documented as of this encounter Visit Diagnoses Diagnosis Ischemic cardiomyopathy- Primary Other specified forms of chronic ischemic heart disease documented in this encounter Advance Directives Documents on File Type Date Recorded Patient Television Cable Installer Expl 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
--- OUTSIDE RECORDS SUMMARY | 2022-11-16 13:20 | External Medical Summary ---
Author Name Unknown Address [address] [place] [address] [place] [address] Phone Organization K08:[address] [place] [address] Laboratory Report Ordering Provider Test Date Status LOLIS BRADFORD 08/19/2018 08:36:00 Correction Observation Date Value Abnormality Reference Status Fasting status Patient Ql Reported 08/19/2018 08:48 NOT FASTING Correction Performing Location [address] [place] [address]
--- OUTSIDE RECORDS SUMMARY | 2022-11-16 13:20 | External Medical Summary ---
Author Name Unknown Address [address] [facility] [place] [address] Phone Organization K01:[facility] [address] [place] [address] Laboratory Report Ordering Provider Test Date Status LOLIS BRADFORD 08/19/2018 08:36:00 Final Observation Date Value Abnormality Reference Status HbA1C 08/19/2018 15:15 6.9 Above high normal 4.0-5 .6 Final Performing Location [facility] [address] [place] [address]
--- OUTSIDE RECORDS SUMMARY | 2022-11-16 13:20 | External Medical Summary ---
Author Name Unknown Address [address] [place] [phone] Phone Organization K01:[facility] [address] [place] [id number] Laboratory Report Ordering Provider Test Date Status LOLIS BRADFORD 08/19/2018 08:36:00 Final Observation Date Value Abnormality Reference Status Vitamin B12 08/19/2018 16:04 [phone] F inal Performing Location [facility] [address] [facility] [address]
--- OUTSIDE RECORDS SUMMARY | 2022-11-16 13:20 | External Medical Summary | Summary of Care ---
Author Name Unknown Organization [place] [address] Care Team Providers Care Xm1 Tank Driver Name Role Phone Suzette Danielle MD Primary Care Provider Unava ilable Reason for Visit * Reason Comments eRx-Medication Refill Encounter Details Date Type Department Care Team Description 07/17/2018 Refill Internal Medicine [address] [address] Suzette Danielle MD [address] [place] [address] [place] [address] [phone] PEPTIC ULCER NOS Allergies Active Allergy Reactions Severity Noted Date Comments Acetaminophen Renal complications 04/27/2009 Aspirin 08/13/2000 Stomach pain Cholestyramine 08/13/2000 Kidney pain Atorvastatin Calcium 04/28/2007 cramping Niacin Muscle pain 07/22/2007 Simvastatin Hives 08/13/2000 Ezetimibe 04/28/2007 Cramping ankles, turned feet inward documented as of this encounter (statuses as of 07/19/2018) Medications Medication Sig Dispensed Refills Start Date End Date Status GAVI 180 MG PO TABSIndications:All ergic rhinitis One pill by mouth once a day for allergies 30 5 07/23/2009 Active MAGNESIUM OXIDE 200 MG PO TABSIndications: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 one tablet twice a [...] Active glipiZIDE XL (GLUCOTROL XL) 10 MG [id number]:Typ e 2 diabetes mellitus with hemoglobin A1c goal of less than 8.0% (HCC) TAKE 1 TABLET BY MOUTH TWICE A DAY 180 Tab 1 02/16/2018 Active amLODIPine (NORVASC) 5 MG Tablet TAKE 1 TABLET BY MOUTH TWICE A DAY 180 Tab 1 02/16/2018 Active Terazosin HCl 2 MG CapsuleIndications: Atherosclerosis of [place] coronary artery of [place] heart without angina pectoris,BPH with obstruction/lower urinary [...] THE DAY 90 Cap 1 07/19/2018 Active omeprazole (PRILOSEC) 20 MG CPDRIndications:Pep tic ulcer TAKE ONE CAPSULE BY MOUTH DAILY ONE HOUR PRIOR TO THE FIRST MEAL OF THE DAY 90 Cap 1 12/18/2017 9 Discontinued documented as of this encounter (statuses as of 07/19/2018) Active Problems Problem Noted Date Type 2 [...] patient at prior appointment. CORONARY ATHEROSCLER. OF [place] CORONARY VESSEL 11/30/2001 GENERAL OSTEOARTHROSIS Multiple pulmonary nodules Complex renal cyst Overview: 3.8 cm; L documented as of this encounter (statuses as of 07/19/2018) Resolved Problems Problem Noted Date Resolved Date [employer] Other*[id number] 201004/22/2016 Overview: Study Titile: Genomics Markers for Patients with Cardiovascular Disease Project # [id number] PI: Amalia Kingsley MD Please call [phone] with study related questions HTN, goal below 130/80 04/15/2010 08/23/201 2 Overview: Per HTN Protocol #27. Actinic [...] as of this encounter (statuses as of 07/19/2018) Immunizations Name Dates Previously Given Next Due Pneumococcal Conjugate Vacc, 13 Valent (Prevnar) 10/16/2015 Pneumococcal Polysaccharide PPV23 (Pneumovax) 12/15/2006,04/01/2002 Seasonal Influenza, Quadriva lent, No Preserve, 6 Mons & Above, IM 11/17/2017 Seasonal Influenza, Quadriva lent, No Preserve, IM 11/21/2016,11/27/2015 Seasonal Influenza, Trivalen t, with Preserve, 3yr & Above, Split 12/04/2014,11/23/2013,12/07/2012,,11/20/2010,12/13/2009,12/15,01/04/2008,12/15/2006,2005,01/10/2005,12/25/2003,12/30/19 03,01/19/2002,01/05/2001 01/19/2003 TD - Tetanus/Diptheria (ADULT) 03/16/2003 TDAP [...] Telephone Encounter - Suzette Danielle MD - 07/19/2018 11:52 AM EDT Signed Prescriptions: Disp Refills omeprazole (PRILOSEC) 20 MG CPDR 90 Cap 1 Sig: TAKE ONE CAPSULE BY MOUTH DAILY ONE HOUR PRIOR TO THE FIRST MEAL OF THE DAY Authorizing Provider: SUZETTE DANIELLE * Telephone Encounter - Ginny Hall LPN - 07/19/2018 11:20 AM EDT Pending Prescriptions: Disp Refills omeprazole (PRILOSEC) 20 MG CPDR [Pharmac*90 Cap 1 Sig: TAKE ONE CAPSULE BY MOUTH DAILY ONE HOUR PRIOR TO THE FIRST MEAL OF THE DAY * Telephone Encounter - Kasye Rosales LPN - 07/19/2018 10:55 AM EDT Pending Prescriptions: Disp Refills omeprazole (PRILOSEC) 20 MG CPDR [Pharmac*90 Cap 3 Sig: TAKE ONE CAPSULE BY MOUTH DAILY ONE HOUR PRIOR TO THE FIRST MEAL OF THE DAY * Telephone Encounter - Kasey Rosales, KYLE - 07/19/2018 10:54 AM EDT Pending Prescriptions: Disp Refills omeprazole (PRILOSEC) 20 MG CPDR [Pharmac*90 Cap 1 Sig: TAKE ONE CAPSULE BY MOUTH DAILY ONE HOUR PRIOR TO THE FIRST MEAL OF THE DAY Last Office Visit: 02/18/2018 Next Office Visit: 08/19/2018 Scheduled Provider(s): Suzette Danielle MD Last date the medication was ordered: 12/18/17 Patient Active Problem List Diagnosis Code GENERAL OSTEOARTHROSIS M15.9 CORONARY ATHEROSCLER. OF [place] CORONARY VESSEL I25.10 ADVANCE DIRECTIVE INFORMATION DM TYPE 2 [...] disease and hypertension (HCC) E11.22, I12.9, N18.2 Labs: CREATININE(mg/dL) Lucía Dt/Tm Resulted Value Status 03/18/18 8:29A 03/18/18 1.1 FINAL POTASSIUM(mmol/L) Lucía Dt/Tm Resulted Value Status 03/18/18 8:29A 03/18/18 4.2 FINAL TSH(uIU/mL) Lucía Dt/Tm Resulted Value Status 04/28/18 9:11A 04/28/18 3.81 FINAL LDL (CALCULATED)(mg/dL) Lucía Dt/Tm Resulted Value Status 08/12/17 2:08P 08/12/17 123 FINAL LDL DIRECT(REFLEX)(mg/dL) Lucía Dt/Tm Resulted Value Status 08/12/17 2:08P 08/12/17 FINAL Value: NOT APPLICABLE ALT(U/L) Lucía Dt/Tm Resulted Value Status 03/18/18 8:29A 03/18/18 16 FINAL Hemoglobin AIC Results: HEMOGLOBIN, A1C(%) Lucía Dt/Tm Resulted Value Status 02/18/18 11:12A 02/18/18 7.1* FINAL 08/12/17 2:08P 08/12/17 7.0* FINAL 10/27/16 9:32A 10/27/16 6.4 FINAL documented in this encounter Plan of Treatment Upcoming Encounters Date Type Specialty Care Team Description 08/03/2018 Cardiac Studies Cardiac Studies [address] [place] [address] [phone] 08/03/2018 Imaging Radiology 08/19/2018 Office Visit Internal Medicine Suzette Danielle MD [address] [place] [address] [place] [address] [phone] 09/28/2018 Office Visit Cardiology Alcon Lott PA-Adelfo [address] [facility] [place] [address] [phone] 10/04/2018 Office Visit Dermatology Kim Kong MD [address] [place] [address] [phone] Health Maintenance Due Date Last Done Comments [...] of this encounter Implants Implanted Type Area Steam Engineer Device Identifier Shelf Expiration Date Model / Serial / Lot Marker Coronary Am-Sd - [id number] Implanted:Qty: 1 on 12/26/2010 N/A: Heart [employer] 10/13/2013 AM-[place] / / [id number] Sut Steel 6 M654g - [id number] Implanted:Qty: 5 on 12/26/2010 Chest DO NOT USE 10/14/2015 M654G / / [id number] [facility] 225-663 - [id number] Implanted:Qty: 1 on 12/26/2010 Chest [employer] 225-956 / / [id number] documented as of this encounter Visit Diagnoses Diagnosis PEPTIC ULCER NOS Peptic ulcer, unspecified site, unspecified as acute or chronic, without mention of hemorrhage, perforation, or obstruction documented in this encounter Advance Directives Patient has advance care planning documents, and code status on file. For more information, please contact: [place] [address] Latest Code Status on File Code Status Date Activated Date Inactivated Comments Full Code 12/26/2010 11:49 AM 12/30/2010 3:24 PM Th is order reflects the patients wishes and were consensually agreed upon.
--- OUTSIDE RECORDS SUMMARY | 2022-11-16 13:20 | External Medical Summary | Summary of Care ---
Author Name Unknown Organization [place] [address] Care Team Providers Care Pinball Machine Repairer Name Role Phone Smith Orozco MD Primary Care Provider Unava ilable Reason for Visit * Reason Comments Previsit Planning Encounter Details Date Type Department Care Team Description 07/14/2018 Telephone Internal Medicine [address] [address] Smith Orozco MD [address] [place] [address] [place] [address] [phone] Previsit Planning Allergies Active Allergy Reactions Severity Noted Date Comments Acetaminophen Renal complications 04/27/2009 Aspirin 08/13/2000 Stomach pain Cholestyramine 08/13/2000 Kidney pain Atorvastatin Calcium 04/28/2007 cramping Niacin Muscle pain 07/22/2007 Simvastatin Hives 08/13/2000 Ezetimibe 04/28/2007 Cramping ankles, turned feet inward documented as of this encounter (statuses as of 07/14/2018) Medications Medication Sig Dispensed Refills Start Date [...] DX: E11.9 200 Strip 5 07/30/2017 Active omeprazole (PRILOSEC) 20 MG CPDRIndications:Peptic ulcer TAKE ONE CAPSULE BY MOUTH DAILY ONE HOUR PRIOR TO THE FIRST MEAL OF THE DAY 90 Cap 1 12/18/2017 Active glipiZIDE XL (GLUCOTROL XL) 10 MG [id number]:Type 2 diabetes mellitus with hemoglobin A1c goal of less than 8.0% (HCC) TAKE 1 TABLET BY MOUTH TWICE A DAY 180 Tab 1 02/16/2018 Active amLODIPine (NORVASC) 5 MG Tablet TAKE 1 TABLET BY MOUTH TWICE A DAY 180 Tab 1 02/16/2018 Active Terazosin HCl 2 MG CapsuleIndications:Ath erosclerosis of [place] coronary artery of [place] heart without angina pectoris,BPH with obstruction/lower urinary [...] WITH MEALS 180 Tab 1 04/21/2018 Active documented as of this encounter (statuses as of 07/14/2018) Active Problems Problem Noted Date Type 2 [...] patient at prior appointment. CORONARY ATHEROSCLER. OF [place] CORONARY VESSEL 11/30/2001 GENERAL OSTEOARTHROSIS Multiple pulmonary nodules Complex renal cyst Overview: 3.8 cm; L documented as of this encounter (statuses as of 07/14/2018) Resolved Problems Problem Noted Date Resolved Date [employer] Card[employer] Research Other*[id number] 201004/22/2016 Overview: Study Titile: Genomics Markers for Patients with Cardiovascular Disease Project # [id number] PI: Amalia Kingsley MD Please call [phone] with study related questions HTN, goal below [...] as of this encounter (statuses as of 07/14/2018) Immunizations Name Dates Previously Given Next Due [...] encounter Miscellaneous Notes * Telephone Encounter - Mayela Razo LPN - 07/14/2018 8:27 AM EDT Patient contacted for Care Gaps Comprehensive Care Outreach. Last Office Visit: 02/18/2018 Next Office Visit: 08/19/2018 Scheduled Provider(s): Smith Orozco MD Health Maintenance Due Topic Date Due FOBT ANNUALLY,AGES 18-90 11/18/2013 DIABETES-EYE EXAM 10/09/2016 Outreach action taken: Labs Reminder: FOBT Procedures Reminder: Diabetic Eye Exam Contacted: Spoke with patient - Records requested from Dr. Proctor. 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 documented in this encounter Plan of Treatment Upcoming Encounters Date Type Specialty Care Team Description 08/03/2018 Cardiac Studies Cardiac Studies [address] [place] [address] [phone] 08/03/2018 Imaging Radiology 08/19/2018 Office Visit Internal Medicine Smith Orozco MD [address] [place] [address] [place] [address] [phone] 09/28/2018 Office Visit Cardiology Alcon Lott PA-Adelfo [address] [facility] [place] [address] [phone] 10/04/2018 Office Visit Dermatology Kim Kong MD [address] [place] [address] [phone] Health Maintenance Due Date Last Done Comments [...] of this encounter Implants Implanted Type Area Acoustic Intelligence Specialist Device Identifier Shelf Expiration Date Model / Serial / Lot Marker Coronary [facility] - [id number] Implanted:Qty: 1 on 12/26/2010 N/A: Heart [employer] 10/13/2013 [facility] / / [id number] Sut Steel 6 M654g - [id number] Implanted:Qty: 5 on 12/26/2010 Chest DO NOT USE 10/14/2015 M654G / / [id number] Band [facility] 225-241 - [id number] Implanted:Qty: 1 on 12/26/2010 Chest [employer] 225-241 / / [id number] documented as of this encounter Advance Directives Patient has advance care planning documents, and code status on file. For more information, please contact: [place] [address] Latest Code Status on File Code Status Date Activated Date Inactivated Comments Full Code 12/26/2010 11:49 AM 12/30/2010 3:24 PM Th is order reflects the patients wishes and were consensually agreed upon.
--- OUTSIDE RECORDS SUMMARY | 2022-11-16 13:20 | External Medical Summary | Summary of Care ---
Author Name Unknown Organization [place] [address] Care Team Providers Care Electronic Prepress System Operator Name Role Phone Smith Orozco MD Primary Care Provider Reason for Visit * Reason Comments Outpatient Testing Encounter Details Date Type Department Care Team Description 08/19/2018 Telephone Internal Medicine [address] [address] Smith Orozco MD [address] [place] [address] [place] [address] [phone] Outpatient Testing Allergies Active Allergy Reactions Severity Noted Date Comments Acetaminophen Renal complications 04/27/2009 Aspirin 08/13/2000 Stomach pain Cholestyramine 08/13/2000 Kidney pain Atorvastatin Calcium 04/28/2007 cramping Niacin Muscle pain 07/22/2007 Simvastatin Hives 08/13/2000 Ezetimibe 04/28/2007 Cramping ankles, turned feet inward documented as of this encounter (statuses as of 08/19/2018) Medications Medication Sig Dispensed Refills Start Date [...] 5 07/30/2017 Active Terazosin HCl 2 MG CapsuleIndications:At herosclerosis of [place] coronary artery of [place] heart without angina pectoris,BPH with obstruction/lower urinary [...] 1 02/19/2018 Active losartan (COZAAR) 50 MG TabletIndications:HTN , goal below 140/80 TAKE ONE TABLET BY MOUTH TWICE A DAY 180 Tab 1 03/17/2018 Active finasteride (PROSCAR) 5 MG TabletIndications:BPH with obstruction/lower urinary tract symptoms TAKE 1 TABLET BY MOUTH DAILY. 90 Tab 1 03/17/2018 Active MetFORMIN (GLUCOPHAGE) 1000 MG TabletIndications:Typ e [...] Active glipiZIDE XL (GLUCOTROL XL) 10 MG [id number]:Type 2 diabetes mellitus with hemoglobin A1c goal of less than 8.0% (HCC) Take 1 Tab by mouth 2 times a day. 180 Tab 1 08/04/2018 Active amLODIPine (NORVASC) 5 MG Tablet Take 1 Tab by mouth 2 times a day. 180 Tab 1 08/13/2018 Active documented as of this encounter (statuses as of 08/19/2018) Active Problems Problem Noted Date Type 2 [...] to patient at prior appointment. Atherosclerosis of [place] co ronary artery of [place] heart without angina pectoris 11/30/2001 GENERAL OSTEOARTHROSIS Multiple pulmonary nodules Complex renal cyst Overview: 3.8 cm; L Old ID (myocardial infarction) documented as of this encounter (statuses as of 08/19/2018) Resolved Problems Problem Noted Date Resolved Date Gen[employer] Cardio Research Other*[id number] 201004/22/2016 Overview: Study Titile: Genomics Markers for Patients with Cardiovascular Disease Project # [id number] PI: Amalia Kingsley MD Please call [phone] with study related questions HTN, goal below [...] as of this encounter (statuses as of 08/19/2018) Immunizations Name Administration Dates Next Due Pneumococcal [...] encounter Miscellaneous Notes * Telephone Encounter - Yohana Alcantara RN - 08/19/2018 3:53 PM EDT Noted. It will be collected at the next office visit. * Telephone Encounter - Komal Shearer LPN - 08/19/2018 3:26 PM EDT Amrita from [facility] lab called. The cap from the urine container came off during transport. Urine spilled. Unable to do urine test. She didn't say wether pt was contacted or not. documented in this encounter Plan of Treatment Upcoming Encounters Date Type Specialty Care Team Description 09/28/2018 Office Visit Cardiology Alcon Lott PA-C [address] [place] [address] [phone] 10/04/2018 Office Visit Dermatology Kim Kong MD [address] [place] [address] [phone] 02/08/2019 Imaging Radiology 02/21/2019 Office Visit Internal Medicine Smith Orozco MD [address] [place] [address] [place] [phone] Health Maintenance Due Date Last Done Comments Yearly B-12 08/12/2018 08/12/2017 DIABETES-HGBA1C EVERY 6 MONTHS 08/19/2018 02/18/2018, 08/12/2017, 10/27/2016, Additional history exists DIABETES-EYE EXAM 11/05/2018 11/05/2017, [...] of this encounter Implants Implanted Type Area Food Service Clerk Device Identifier Shelf Expiration Date Model / Serial / Lot Marker Coronary Amgm-Sd - [id number] [place]planted:Q[place]: 1 [place] 12/26/2010 [place] [facility]A: Heart [employer] 10/13/2013 [facility] / / [id number] Sut Steel 6 M654g - [id number] Implanted:Qty: 5 on 12/26/2010 [place] [facility] Chest DO NOT USE 10/14/2015 M654G / / [id number] Band [place] 225-335 - [id number] Implanted:Qty: 1 on 12/26/2010 [place] [facility] Chest [employer] 225-822 / / [id number] documented as of this encounter Advance Directives Documents on File Type Date Recorded Patient Apron Trimmer Expl 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
--- OUTSIDE RECORDS SUMMARY | 2022-11-16 13:20 | External Medical Summary | Summary of Care ---
Author Name Unknown Organization [place] [address] Care Team Providers Care Computer Forensics Technician Name Role Phone Smith Danielle MD Primary Care Provider + [phone] Reason for Visit * Reason Comments eRx-Medication Refill Encounter Details Date Type Department Care Team Description 08/24/2018 Refill Internal Medicine [address] [address] Smith Danielle MD [address] [place] [address] [place] [address] [phone] Type 2 diabetes mellitus with hemoglobin A1c goal of less than 8.0% ([facility]) Allergies Active Allergy Reactions Severity Noted Date Comments Acetaminophen Renal complications 04/27/2009 Aspirin 08/13/2000 Stomach pain Cholestyramine 08/13/2000 Kidney pain Atorvastatin Calcium 04/28/2007 cramping Niacin Muscle pain 07/22/2007 Simvastatin Hives 08/13/2000 Ezetimibe 04/28/2007 Cramping ankles, turned feet inward documented as of this encounter (statuses as of 08/24/2018) Medications Medication Sig Dispensed Refills Start Date End Date Status GVAI 180 MG PO TABSIndications:Al lergic rhinitis One [...] Terazosin HCl 2 MG CapsuleIndications :Atherosclerosis of [place] coronary artery of [place] heart without angina pectoris,BPH with obstruction/lower urinary [...] Active glipiZIDE XL (GLUCOTROL XL) 10 MG [id number]:Ty pe 2 diabetes mellitus with hemoglobin A1c [...] as of this encounter (statuses as of 08/24/2018) Active Problems Problem Noted Date Type 2 [...] to patient at prior appointment. Atherosclerosis of [place] co ronary artery of [place] heart without angina pectoris 11/30/2001 GENERAL OSTEOARTHROSIS Multiple pulmonary nodules Complex renal cyst Overview: 3.8 cm; L Old MS (myocardial infarction) documented as of this encounter (statuses as of 08/24/2018) Resolved Problems Problem Noted Date Resolved Date [employer] Cardio Research Other*[id number] 201004/22/2016 Overview: Study Titile: Genomics Markers for Patients with Cardiovascular Disease Project # [id number] PI: Amalia Kingsley MD Please call [phone] with study related questions HTN, goal below [...] as of this encounter (statuses as of 08/24/2018) Immunizations Name Administration Dates Next Due Pneumococcal [...] Diagnosis Code GENERAL OSTEOARTHROSIS M15.9 Atherosclerosis of [place] coronary artery of [place] heart without angina pectoris I25.10 ADVANCE DIRECTIVE [...] and hypertension (HCC) E11.22, I12.9, N18.2 Old [place] (myocardial infarction) I25.2 Labs: CREATININE(mg/dL) Lucía Dt/Tm [...] [address] [facility] [place] [address] 10/04/2018 Office Visit Dermatology Kim Kong MD [address] [place] [address] [place] [phone] 02/08/2019 Imaging Radiology 02/21/2019 Office Visit Internal Medicine Smith Danielle MD [address] [place] [address] [place] [address] Health Maintenance Due Date [...] of this encounter Implants Implanted Type Area Cleaning Handyman Device Identifier Shelf Expiration Date Model / Serial / Lot Marker Coronary [facility] - [id number] Implanted:Qty: 1 on 12[place]26/2010 [place] [facility] [place]A: Heart [employer] 10/13/2013 [facility] / / [id number] Sut Steel 6 M654g - [id number] Implanted:Qty: 5 on 12/26/2010 [place] [facility] Chest DO NOT USE 10/14/2015 M654G / / [id number] Band [place] 225-241 - [id number] Implanted:Qty: 1 on 12/26/2010 [place] [facility] Chest [employer] 225-008 / / [id number] documented as of this encounter Visit Diagnoses Diagnosis Type 2 diabetes mellitus with hemoglobin A1c goal of less than 8.0% (HCC) documented in this encounter Advance Directives Documents on File Type Date Recorded Patient C Software Engineer Expl 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
--- OUTSIDE RECORDS SUMMARY | 2022-11-16 13:20 | External Medical Summary | Summary of Care ---
Author Name Unknown Organization [facility] Address [facility] [place] [address] Care Team Providers Care Home Specialist Name Role Phone Smith Orozco MD Primary Care Provider + [phone] Reason for Visit * Reason Comments Test Results Encounter Details Date Type Department Care Team Description 08/05/2018 Telephone Cardiology, [facility] [address] [place] [address] Alcon Lott PA-C [address] [facility] [place] [place] [address] [phone] Test Results Allergies Active Allergy Reactions Severity Noted Date Comments Acetaminophen Renal complications 04/27/2009 Aspirin 08/13/2000 Stomach pain Cholestyramine 08/13/2000 Kidney pain Atorvastatin Calcium 04/28/2007 cramping Niacin Muscle pain 07/22/2007 Simvastatin Hives 08/13/2000 Ezetimibe 04/28/2007 Cramping ankles, turned feet inward documented as of this encounter (statuses as of 08/30/2018) Medications Medication Sig Dispensed Refills Start Date [...] 5 03/25/2017 Active Terazosin HCl 2 MG CapsuleIndications:Ath erosclerosis of eagle coronary artery of eagle heart without angina pectoris,BPH with obstruction/lower urinary tract symptoms,Essential hypertension with goal blood pressure less than 140/90 TAKE 1 CAP BY MOUTH AT BEDTIME. 90 Cap 3 02/16/2018 Active glimepiride (AMARYL) 1 MG TabletIndications:Type 2 [...] Active glipiZIDE XL (GLUCOTROL XL) 10 MG DT28Ckkhcelsihs:Type 2 diabetes mellitus with hemoglobin A1c goal of less than 8.0% (HCC) Take 1 Tab by mouth 2 times a day. 180 Tab 1 08/04/2018 Active documented as of this encounter (statuses as of 08/30/2018) Active Problems Problem Noted Date Type 2 [...] to patient at prior appointment. Atherosclerosis of eagle co ronary artery of eagle heart without angina pectoris 11/30/2001 GENERAL OSTEOARTHROSIS Multiple pulmonary nodules Complex renal cyst Overview: 3.8 cm; L Old LA (myocardial infarction) documented as of this encounter (statuses as of 08/30/2018) Resolved Problems Problem Noted Date Resolved Date [employer] Card[employer] Research Other*[id number] 201004/22/2016 Overview: Study Titile: Genomics Markers for Patients with Cardiovascular Disease Project # [id number] PI: Amalia Kingsley MD Please call [phone] with study related questions HTN, goal below [...] as of this encounter (statuses as of 08/30/2018) Immunizations Name Administration Dates Next Due Pneumococcal [...] Telephone Encounter - Kerri Mckinley OSA - 08/10/2018 10:40 AM EDT Spoke with pt. Agreeable to appt. * Telephone Encounter - Kerri Mckinley OSA - 08/10/2018 9:33 AM EDT LMOM for pt to return call. Secured 02/08/19 @ 930 for carotid in [place]. * Telephone Encounter - Amee Voss RN - 08/05/2018 11:12 AM EDT Sent my g to pt. Order placed for study. Scheduling please assist in scheduling for carotid duplex in 6 months. Thank you. * Telephone Encounter - Amee Voss RN - 08/05/2018 11:09 AM EDT ----- Message from Alcon Lott PA-C sent at 08/04/2018 5:10 PM EDT ----- Carotid duplex shows 50 to 69% CRISTI stenosis, mild (<50%) LICA. Repeat duplex in 6 months documented in this encounter Plan of Treatment Upcoming Encounters Date Type Specialty Care Team Description 09/28/2018 Office Visit Cardiology Alcon Lott PA-C [address] [facility] [place] [address] [phone] 10/04/2018 Office Visit Dermatology Kim Kong MD [address] [place] [address] [phone] 02/08/2019 Imaging Radiology 02/21/2019 Office Visit Internal Medicine Smith Orozco MD [address] [place] [address] [place] [address] Scheduled Orders Name Type Priority Associated Diagnoses Orde r Schedule VASC DUPLEX CAROTID BILAT Medical Imaging Routine Carotid stenosis, non-symptomatic Expected: 02/05/2019 (Approximate), Expires: 09/05/2020 Health Maintenance Due Date Last Done Comments [...] of this encounter Implants Implanted Type Area District Sales Leader Device Identifier Shelf Expiration Date Model / Serial / Lot Marker Coronary [facility] - [id number] [place]planted:Q[place] 1 [place] [facility] [place] Heart [employer] 10/13/2013 [facility] / / [id number] Sut Steel 6 M654g - [id number] Implanted:Qty: 5 on 12[place]26/2010 [place] [facility] [place] Chest DO NOT USE 10/14/2015 M654G / / [id number] Band Ankur 225-241 - [id number] Implanted:Qty: 1 on 12/26/2010 [place] [facility] [place] Chest [employer] 225-228 / / [id number] documented as of this encounter Visit Diagnoses Diagnosis Carotid stenosis, non-symptomatic- Primary Occlusion and stenosis of carotid artery without mention of cerebral infarction documented in this encounter Advance Directives Documents on File Type Date 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
--- OUTSIDE RECORDS SUMMARY | 2022-11-16 13:20 | External Medical Summary | Summary of Care ---
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)*; DM type 2 nursing care encounter (HCC); Atherosclerosis of redding coronary artery of redding heart without angina pectoris; Type 2 diabetes mellitus with hemoglobin A1c goal of less than 8.0% (HCC); Ischemic cardiomyopathy; Type 2 diabetes mellitus with stage 2 chronic kidney disease, without long-term current use of insulin (HCC); GENERAL OSTEOARTHROSIS; Dyslipidemia, goal LDL below 70; Essential hypertension with goal blood pressure less than 140/90; Old IA (myocardial infarction); Encounter for long-term (current) use of other [...] 07/23/2009 Active MAGNESIUM OXIDE 200 MG PO TABSIndications:Rayon Tester mp in limb one tablet twice a day 60 Tab 5 07/16/2010 Active SB LOW DOSE ASA EC 81 MG PO TBEC one tab three times weekly 0 Active MULTI-VITAMIN PO TABS one pill each day 0 Active tretinoin (RETIN-A) 0.05 % creamIndications:Ac tinic keratosis APPLY NIGHTLY TO FACE DIRECTED,CAN MIX WITH PONDS 45 g 03/25/2017 Active GoPlanit ULTRASOFT LANCETS MISCIndications:Typ e 2 diabetes mellitus with hemoglobin A1c goal of less than 8.0% ([facility]) USE TO TEST DIRECTED 2 TIMES A DAY. 200 Each 07/30/2017 Active AuctionPayTOUCH ULTRA BLUE STRPIndications:Typ e 2 diabetes mellitus with hemoglobin A1c goal of less than 8.0% ([facility]) USE TO TEST TWICE A DAY DX: E11.9 200 Strip 07/30/2017 Active Terazosin HCl 2 MG CapsuleIndications: Atherosclerosis of redding coronary artery of redding heart without angina pectoris,BPH with obstruction/lower urinary tract symptoms,Essential hypertension with goal blood pressure less than 140/90 TAKE 1 CAP BY MOUTH AT BEDTIME. 90 Cap 3 02/16/2018 Active glimepiride (AMARYL) 1 MG TabletIndications:T ype [...] Active glipiZIDE XL (GLUCOTROL XL) 10 MG [id number]:Typ e 2 diabetes mellitus with hemoglobin A1c goal of less than 8.0% (HCC) Take 1 Tab by mouth 2 times a day. 180 Tab 1 08/04/2018 Active amLODIPine (NORVASC) 5 MG Tablet Take 1 Tab by mouth 2 times a day. 180 Tab 1 08/13/2018 Active Meloxicam 7.5 MG TabletIndications:G eneralized osteoarthritis Take 1 Tab by mouth daily. for pain. 30 Tab 5 02/18/2018 9 Discontinued documented as of this encounter [...] to patient at prior appointment. Atherosclerosis of redding co ronary artery of redding heart without angina pectoris 11/30/2001 GENERAL OSTEOARTHROSIS Multiple pulmonary nodules Complex renal cyst Overview: 3.8 cm; L Old IA (myocardial infarction) documented as of this encounter (statuses as of 08/19/2018) Resolved Problems Problem Noted Date Resolved Date Genomics Cardio Research Other*[id number] 201004/22/2016 Overview: Study Titile: Genomics Markers for Patients with Cardiovascular Disease Project # [id number] PI: Baljinder Hung MD Please call [phone] with study related questions HTN, goal below [...] Sign Reading Time Taken Comments Blood Pressure 114/70 08/19/2018 8:16 AM EDT Pulse 68 08/19/2018 8:16 AM EDT Temperature 35.9 C (96.7 F) 08/19/2018 8:16 AM ED T Respiratory Rate 12 08/19/2018 8:16 AM EDT Oxygen Saturation - - Inhaled Oxygen Concentration - - Weight 64.4 kg (142 lb) 08/19/2018 8:16 AM EDT Height 162.6 cm (5' 4") 08/19/2018 8:16 AM EDT Body Mass Index 24.37 08/19/2018 8:16 AM EDT documented in this encounter Progress Notes * Smith Orozco MD - 08/19/2018 8:18 AM EDT Cl sees cardiology and has been doing well. He used to be on a beta layne and it was stopped and I am not sure why. Maybe fatigue?? He will see the eye people in October. He is still really active. No complaints of headache, trouble with vision or hearing. Eating well, with no bowel or bladder complaints. Denies chest pain or palpitations. Denies shortness of breath, PND, or orthopnea. No skin rashes or breakdown. No changes in mentation. The rest of a 10 point review of systems is negative. He will see cardiology again in September. Past Medical History: Diagnosis Date Acute IA, inferior wall, subsequent episode of care ([facility]) 1994 BPH with obstruction/lower urinary tract symptoms 11/01/2009 CKD (chronic kidney disease) stage 2, GFR 60-89 ml/min Coronary atherosclerosis of redding coronary artery 11/30/2001 DM type 2, goal A1c below 7 Elevated PSA 09/30/2017 PSA 7.15 Examination of eyes and vision 09/20/13 no diabetic or hypertensive retinopathy Generalized osteoarthritis HTN, goal below 140/90 Mixed dyslipidemia Multiple pulmonary nodules 03/20/13 Old IA (myocardial infarction) 1994 Peptic ulcer Renal mass, left 2014 3.8 cm Type 2 diabetes mellitus with hemoglobin A1c goal of less than 8.0% (HCC) 01/11/2009 Per Diabetes Taxonomy. ICD-10 update of inactive term Past Surgical History: Procedure Laterality Date CABG, ARTERIAL, SINGLE 12/26/2010 CORONARY ARTERY BYPASS GRAFT USING ARTERY 1 GRAFT performed by BERTHA SENIOR at [place] [facility] [place] CABG, ARTERY-VEIN, THREE 12/26/2010 CORONARY ARTERY BYPASS GRAFT ARTERIAL AND VENOUS 3 GRAFTS performed by BERTHA SENIOR at [place] [facility] [place] CORONARY ANGIOGRAPHY W/LEFT HEART CATH 12/03/2010 CORONARY ANGIOGRAPHY W/LEFT HEART CATH performed by BALJINDER HUNG at CARDIAC [facility] [place] [place] CHEST W CONTRAST 07/11/13 non calcified [...] VEIN performed by BERTHA SENIOR at [place] [facility] INFORMATION 1994 cardiac cath REPAIR INITIAL INGUINAL HERNIA REDUCIBLE AGE 5 [...] file Gets together: Not on file Attends latter-day service: Not on file Active member of [...] Concern Not on file Social History Narrative Not on file Current Outpatient Medications Medication Sig Dispense Refill amLODIPine (NORVASC) 5 MG Tablet Take 1 [...] MOUTH TWICE A DAY 180 Tab 1 Terazosin HCl 2 MG Capsule TAKE 1 CAP BY MOUTH AT BEDTIME. 90 Cap 3 ONETOUCH ULTRA BLUE STRP USE TO TEST TWICE A DAY DX: E11.9 200 Strip 5 ONETOUCH ULTRASOFT LANCETS MISC USE TO TEST DIRECTED 2 TIMES A DAY. 200 Each 5 tretinoin (RETIN-A) 0.05 % cream APPLY [...] first main meal of the day fordiabetes 90 Tab 1 Immunization History Administered Date(s) Administered Pneumococcal Conjugate Vacc, 13 Valent (Prevnar) 10/16/2015 Pneumococcal Polysaccharide PPV23 (Pneumovax) 04/01/2002, 12/15/2006 Seasonal Influenza, Quadrivalent, No Preserve, 6 Mons & Above, IM 11/17/2017 Seasonal Influenza, Quadrivalent, No Preserve, IM 11/27/2015, 11/21/2016 Seasonal Influenza, Trivalent, with Preserve, 3yr & Above, Split 01/05/2001, 01/19/2002, 12/29/2002, 12/25/2003, 01/10/2005, 12/23/2005, 12/15/2006, 01/04/2008, 01/10/2009, 12/13/2009, 11/20/2010, 11/25/2011, 12/07/2012, 11/23/2013, 12/04/2014 TD - Tetanus/Diptheria (ADULT) 03/16/2003 TDAP (age 10 and older)(Boostrix) 08/05/2012 Varicella Zoster Vaccine (Adult) 11/15/2011 HEMOGLOBIN, A1C(%) Lucía Dt/Tm Resulted Value Status 02/18/18 11:12A 02/18/18 7.1* FINAL 08/12/17 2:08P 08/12/17 7.0* FINAL 10/27/16 9:32A 10/27/16 6.4 FINAL LIPID PANEL WITH DIRECT LDL IF TG ABOVE 400 MG/DL Lucía Dt/Tm Resulted Value Status HOURS FASTING (hours) 08/12/17 2:08P 08/12/17 F Value: PATIENT NOT FASTING TRIGLYCERIDES (mg/dL) 08/12/17 2:08P 08/12/17 143 F CHOLESTEROL (mg/dL) 08/12/17 2:08P 08/12/17 208* F HDL (mg/dL) 08/12/17 2:08P 08/12/17 56 F CHOL/HDL RATIO ( ) 08/12/17 2:08P 08/12/17 3.7 F LDL (CALCULATED) (mg/dL) 08/12/17 2:08P 08/12/17 123 F LDL DIRECT(REFLEX) (mg/dL) 08/12/17 2:08P 08/12/17 F Value: NOT APPLICABLE O: Blood pressure 114/70, pulse 68, temperature 35.9 C (96.7 F), temperature source Tympanic, resp. rate 12, height (!) 1.626 m (5' 4"), weight 64.4 kg (142 lb). General appearance: well developed, well nourished and in no acute distress. Head normocephalic andatraumatic. No facial asymmetry. Eye exam; PEERLA, EOMI. No scleral icterus or nystagmus. Conjunctiva are pink and not injected. Oropharynx: no exudate, normal teeth and no pharyngeal inflammation. The palate has no lesions and the uvula is normal. . Trachea is in the midline. Neck supple with no adenopathy or thyromegaly. No carotid bruits. Chest expands equally. Lungs clear, with no wheezes, rales, or rhonchi. Heart: S1 and S2 normal. PMI not obviously displaced. Heart regular, no murmurs, gallops, clicks or rubs. No CVA tenderness. No calf swelling or tenderness. No pedal edema. No skin rashes. Extremities unremarkable. 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) (Primary) - ALBUMIN / CREATININE RATIO, URINE; Future; Expected date: 08/19/2018 - HEMOGLOBIN A1C; Future; Expected date: 08/19/2018 - LIPID PANEL WITH DIRECT LDL IF TG ABOVE 150 MG/DL; Future; Expected date: 08/19/2018 DM type 2 nursing care encounter (HCC) Atherosclerosis of redding coronary artery of redding heart without angina pectoris - LIPID PANEL WITH DIRECT LDL IF TG ABOVE 150 MG/DL; Future; Expected date: 08/19/2018 Type 2 diabetes mellitus with hemoglobin A1c goal of less than 8.0% (HCC) Ischemic cardiomyopathy - LIPID PANEL WITH DIRECT LDL IF TG ABOVE 150 MG/DL; Future; Expected date: 08/19/2018 Type 2 diabetes mellitus with stage 2 chronic kidney disease, without long-term current use of insulin (HCC) GENERAL OSTEOARTHROSIS Dyslipidemia, goal LDL below 70 - LIPID PANEL WITH DIRECT LDL IF TG ABOVE 150 MG/DL; Future; Expected date: 08/19/2018 Essential hypertension with goal blood pressure less than 140/90 Old IA (myocardial infarction) Encounter for long-term (current) use of other medications - VITAMIN B12; Future; Expected date: 08/19/2018 RTO 6 mos * Janell Stover LPN - 08/19/2018 8:13 AM EDT Hemoglobin a1c ordered today. Provider aware. Janell Stover LPN documented in this encounter Nursing Notes * Janell Stover LPN - 08/19/2018 8:18 AM EDT Pt is here for 6 month checkup Pt is doing well no issue today Pt said he is not due for the colonoscopy documented in this encounter Miscellaneous Notes * Addendum Note - Jacqueline Trotter PBT - 08/19/2018 8:39 AM EDT Addended by: JACQUELINE TROTTER on: 08/19/2018 08:39 AM Modules accepted: Orders documented in this encounter Plan of Treatment Upcoming Encounters Date Type Specialty Care Team Description 09/28/2018 Office Visit Cardiology Alcon Lott PA-C [address] [facility] [place] [address] [phone] 10/04/2018 [facility] [address] [phone] 02/08/2019 Imaging Radiology Pending Results Name Type Priority Associated Diagnoses Date /Time ALBUMIN / CREATININE RATIO, URINE Lab Routine 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) 08/19/2018 8:36 AM EDT HEMOGLOBIN A1C Lab Routine 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) 08/19/2018 8:36 AM EDT LIPID PANEL WITH DIRECT LDL IF TG ABOVE 150 MG/DL Lab Routine Atherosclerosis of redding coronary artery of redding heart without angina pectoris Ischemic cardiomyopathy Dyslipidemia, goal LDL below 70 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) 08/19/2018 8:36 AM EDT VITAMIN B12 Lab Routine Encounter for long-term (current) use of other medications 08/19/2018 8:36 AM EDT Scheduled Orders Name Type Priority Associated Diagnoses Orde r Schedule ALBUMIN / CREATININE RATIO, URINE Lab Routine 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) Expected: 08/19/2018 (Approximate), Expires: 08/19/2019 HEMOGLOBIN A1C Lab Routine 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) Expected: 08/19/2018 (Approximate), Expires: 08/19/2019 LIPID PANEL WITH DIRECT LDL IF TG ABOVE 150 MG/DL Lab Routine Atherosclerosis of redding coronary artery of redding heart without angina pectoris Ischemic cardiomyopathy Dyslipidemia, goal LDL below 70 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) Expected: 08/19/2018, Expires: 08/20/2019 VITAMIN B12 Lab Routine Encounter for long-term (current) use of other medications Expected: 08/19/2018 (Approximate), Expires: 08/19/2019 Health Maintenance Due Date Last Done Comments [...] of this encounter Implants Implanted Type 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 Record 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 Device Identifier Shelf Expiration Date Model / Serial / Lot Marker Coronary [facility] - [id number] Implanted:Qty: 1 on 12/26/2010 [place] [facility] [place]/A: Heart [employer] 10/13/2013 [facility] / / [id number] Sut Steel 6 M654g - [id number] Implanted:Qty: 5 on 12/26/2010 [place] [facility] [place] Chest DO NOT USE 10/14/2015 M654G / / [id number] Band Ankur 225-875 - [id number] Implanted:Qty: 1 on 12/26/2010 at [place] [facility] [place] Chest [employer] 225-649 / / [id number] documented as of this encounter Visit Diagnoses Diagnosis 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)- Primary DM type 2 nursing care encounter (HCC) Type II or unspecified type diabetes mellitus without mention of complication, not stated as uncontrolled Atherosclerosis of redding coronary artery of redding heart without angina pectoris Type 2 diabetes mellitus with hemoglobin A1c goal of less than 8.0% (HCC) Ischemic cardiomyopathy Other specified forms of chronic ischemic heart disease Type 2 diabetes mellitus with stage 2 chronic kidney disease, without long-term current use of insulin (HCC) GENERAL OSTEOARTHROSIS Generalized osteoarthrosis, unspecified site Dyslipidemia, goal LDL below 70 Other and unspecified hyperlipidemia Essential hypertension with goal blood pressure less than 140/90 Old IA (myocardial infarction) Old myocardial infarction Encounter for long-term (current) use of other medications documented in this encounter Advance Directives Documents on File Type Date Recorded 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
--- OUTSIDE RECORDS SUMMARY | 2022-11-16 13:20 | External Medical Summary | Summary of Care ---
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)*; DM type 2 nursing care encounter (HCC); Atherosclerosis of [place] coronary artery of [place] heart without angina pectoris; Type 2 diabetes mellitus with hemoglobin A1c goal of less than 8.0% (HCC); Ischemic cardiomyopathy; Type 2 diabetes mellitus with stage 2 chronic kidney disease, without long-term current use of insulin (HCC); GENERAL OSTEOARTHROSIS; Dyslipidemia, goal LDL below 70; Essential hypertension with goal blood pressure less than 140/90; Old [place] (myocardial infarction); Encounter for long-term (current) use [...] 07/23/2009 Active MAGNESIUM OXIDE 200 MG PO TABSIndications: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 200 Each 07/30/2017 Active MochilaTOUCH ULTRA BLUE STRPIndications:Typ e 2 diabetes mellitus with hemoglobin A1c goal of less than 8.0% ([facility]) USE TO TEST TWICE A DAY DX: E11.9 200 Strip 07/30/2017 Active Terazosin HCl 2 MG CapsuleIndications: Atherosclerosis of [place] coronary artery of [place] heart without angina pectoris,BPH with obstruction/lower urinary [...] Active glipiZIDE XL (GLUCOTROL XL) 10 MG [id number]:Typ e 2 diabetes mellitus with hemoglobin A1c [...] to patient at prior appointment. Atherosclerosis of [place] co ronary artery of [place] heart without angina pectoris 11/30/2001 GENERAL OSTEOARTHROSIS Multiple pulmonary nodules Complex renal cyst Overview: 3.8 cm; L Old [place] (myocardial infarction) documented as of this encounter (statuses as of 08/19/2018) Resolved Problems Problem Noted Date Resolved Date Gen[employer] Cardio Research Other*[id number] 201004/22/2016 Overview: Study Titile: Genomics Markers for Patients with Cardiovascular Disease Project # [id number] PI: Baljinder Hung MD Please call [phone] with study related questions HTN, goal below [...] September. Past Medical History: Diagnosis Date Acute OK, inferior wall, subsequent episode of care ([facility]) 1994 BPH with obstruction/lower urinary tract symptoms 11/01/2009 CKD (chronic kidney disease) stage 2, GFR 60-89 ml/min Coronary atherosclerosis of [place] coronary artery 11/30/2001 DM type 2, goal A1c below 7 Elevated PSA 09/30/2017 PSA 7.15 Examination of eyes and vision 09/20/13 no diabetic or hypertensive retinopathy Generalized osteoarthritis HTN, goal below 140/90 Mixed dyslipidemia Multiple pulmonary nodules 03/20/13 Old [place] (myocardial infarction) 1994 Peptic ulcer Renal mass, left 2014 3.8 cm Type 2 diabetes mellitus with hemoglobin A1c goal of less than 8.0% (HCC) 01/11/2009 Per Diabetes Taxonomy. ICD-10 update of inactive term Past Surgical History: Procedure Laterality Date CABG, ARTERIAL, SINGLE 12/26/2010 CORONARY ARTERY BYPASS GRAFT USING ARTERY 1 GRAFT performed by BERTHA SENIOR at [place] [facility] CABG, ARTERY-VEIN, THREE 12/26/2010 CORONARY ARTERY BYPASS GRAFT ARTERIAL AND VENOUS 3 GRAFTS performed by BERTHA SENIOR at OR [facility] CORONARY ANGIOGRAPHY W/LEFT HEART CATH 12/03/2010 CORONARY ANGIOGRAPHY W/LEFT HEART CATH performed by BALJINDER HUNG at [facility]ARDIAC [facility] CT CHEST W CONTRAST 07/11/13 non calcified [...] VEIN performed by BERTHA SENIOR at OR [facility] INFORMATION 1994 cardiac cath REPAIR INITIAL INGUINAL [...] file Gets together: Not on file Attends baptism service: Not on file Active member of [...] 2 nursing care encounter (HCC) Atherosclerosis of [place] coronary artery of [place] heart without angina pectoris - LIPID PANEL [...] goal blood pressure less than 140/90 [place] (myocardial infarction) Encounter for long-term (current) use [...] [facility] [place] [address] [phone] 10/04/2018 Office Visit Dermatology Kim Kong MD [address] [address] [phone] 02/08/2019 Imaging Radiology Pending Results Name Type [...] ABOVE 150 MG/DL Lab Routine Atherosclerosis of [place] coronary artery of [place] heart without angina pectoris Ischemic cardiomyopathy Dyslipidemia, [...] ABOVE 150 MG/DL Lab Routine Atherosclerosis of [place] coronary artery of [place] heart without angina pectoris Ischemic cardiomyopathy Dyslipidemia, [...] of this encounter Implants Implanted Type Area Milk Drying Machine Operator Device Identifier Shelf Expiration Date Model / Serial / Lot Marker Coronary [facility] - [id number] Implanted:Qty: 1 on 12/26/2010 at OR [facility] N/A: Heart [employer] 10/13/2013 [facility] / / [id number] Sut Steel 6 M654g - [id number] Implanted:Qty: 5 on 12/26/2010 at OR [facility] Chest DO NOT USE 10/14/2015 M654G / / [id number] Band Ankur 225-873 - [id number] Implanted:Qty: 1 on 12/26/2010 at OR [facility] Chest [employer] 225-523 / / [id number] documented as of this encounter Visit Diagnoses Diagnosis 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
--- OUTSIDE RECORDS SUMMARY | 2022-11-16 13:20 | External Medical Summary | Summary of Care ---
Author Name Unknown Organization [place] [address] Care Team Providers Care Site Surveyor Name Role Phone Smith Danielle MD Primary Care Provider [phone] Reason for Visit * Reason Comments Medication Refill Encounter Details Date Type Department Care Team Description 08/04/2018 Refill Internal Medicine [address] [address] Smith Danielle MD [address] [place] [address] [place] [address] [phone] Type 2 diabetes mellitus with hemoglobin A1c goal of less than 8.0% ([facility]) Allergies Active Allergy Reactions Severity Noted Date Comments Acetaminophen Renal complications 04/27/2009 Aspirin 08/13/2000 Stomach pain Cholestyramine 08/13/2000 Kidney pain Atorvastatin Calcium 04/28/2007 cramping Niacin Muscle pain 07/22/2007 Simvastatin Hives 08/13/2000 Ezetimibe 04/28/2007 Cramping ankles, turned feet inward documented as of this encounter (statuses as of 08/04/2018) Medications Medication Sig Dispensed Refills Start Date End Date Status GAVI 180 MG PO TABSIndications:All ergic rhinitis One pill by mouth once a day for allergies 30 5 07/23/2009 Active MAGNESIUM OXIDE 200 MG PO TABSIndications:De Icer mp in limb one tablet twice a [...] DX: E11.9 200 Strip 5 07/30/2017 Active amLODIPine (NORVASC) 5 MG Tablet TAKE 1 TABLET BY MOUTH TWICE A DAY 180 Tab 1 02/16/2018 Active Terazosin HCl 2 MG CapsuleIndications: Atherosclerosis of [place] coronary artery of [place] heart without angina pectoris,BPH with obstruction/lower urinary [...] Active glipiZIDE XL (GLUCOTROL XL) 10 MG [id number]:Typ e 2 diabetes mellitus with hemoglobin A1c goal of less than 8.0% (HCC) Take 1 Tab by mouth 2 times a day. 180 Tab 1 08/04/2018 Active glipiZIDE XL (GLUCOTROL XL) 10 MG [id number]:Typ e 2 diabetes mellitus with hemoglobin A1c goal of less than 8.0% (HCC) TAKE 1 TABLET BY MOUTH TWICE A DAY 180 Tab 1 02/16/2018 9 Discontinued documented as of this encounter (statuses as of 08/04/2018) Active Problems Problem Noted Date Type 2 [...] patient at prior appointment. CORONARY ATHEROSCLER. OF [place] CORONARY VESSEL 11/30/2001 GENERAL OSTEOARTHROSIS Multiple pulmonary nodules Complex renal cyst Overview: 3.8 cm; L documented as of this encounter (statuses as of 08/04/2018) Resolved Problems Problem Noted Date Resolved Date Genomics Cardio Research Other*[id number] 201004/22/2016 Overview: Study Titile: Genomics Markers for Patients with Cardiovascular Disease Project # [id number] PI: Amalia Kingsley MD Please call [phone] with study related questions HTN, goal below [...] as of this encounter (statuses as of 08/04/2018) Immunizations Name Administration Dates Next Due Pneumococcal [...] Telephone Encounter - Smith Danielle MD - 08/04/2018 2:27 PM EDT Signed Prescriptions: Disp Refills glipiZIDE XL (GLUCOTROL XL) 10 MG TB24 180 Tab1 Sig: Take 1 Tab by mouth 2 times a day. Authorizing Provider: SMITH DANIELLE * Telephone Encounter - Lavinia Soto LPN - 08/04/2018 1:53 PM EDT Pending Prescriptions: Disp Refills glipiZIDE XL (GLUCOTROL XL) 10 MG TB24 180 Tab1 Sig: Take 1 Tab by mouth 2 times a day. * Telephone Encounter - Arlette Shah OSA - 08/04/2018 1:43 PM EDT Pending Prescriptions: Disp Refills glipiZIDE XL (GLUCOTROL XL) 10 MG TB24 180 Tab1 Sig: Take 1 Tab by mouth 2 times a day. Last Office Visit: 02/18/2018 Next Office Visit: 08/19/2018 Scheduled Provider(s): Smith Danielle MD If no future appointments scheduled, and last appointment is greater than a year ago, please schedule patient for a follow-up appointment Last date the medication was ordered: 02/16/18 Patient Phone Numbers Labs: Lab Results Component [...] Description 08/19/2018 Office Visit Internal Medicine Smith Danielle MD [address] [place] [address] [place] [id number] 09/28/2018 Office Visit Cardiology Alcon Lott PA-C [address] [facility] [place] [address] [phone] 10/04/2018 Office Visit Dermatology Kim Kong MD [address] [place] [address] [phone] Health Maintenance Due Date Last Done Comments [...] of this encounter Implants Implanted Type Area Fly Maker Device Identifier Shelf Expiration Date Model / Serial / Lot Marker Coronary [facility] - [id number] Implanted:Qty: 1 on 12/26/2010 at [place] [facility] N/A: Heart [employer] 10/13/2013 [facility] / / [id number] Sut Steel 6 M654g - [id number] Implanted:Qty: 5 on 12/26/2010 at OR [facility] Chest DO NOT USE 10/14/2015 M654G / / [id number] Band Ankur 225-241 - [id number] Implanted:Qty: 1 on 12/26/2010 at OR [facility] Chest [employer] 225-311 / / [id number] documented as of this encounter Visit Diagnoses Diagnosis Type 2 diabetes mellitus with hemoglobin A1c goal of less than 8.0% (HCC) documented in this encounter Advance Directives Documents on File Type Date Recorded 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
--- OUTSIDE RECORDS SUMMARY | 2022-11-16 13:20 | External Medical Summary | Summary of Care ---
Author Name Unknown Organization [place] [address] Care Team Providers Care Architect Intern Name Role Phone Smith Orozco MD Primary Care Provider [phone] Encounter Details Date Type Department Care Team Description 08/13/2018 Orders Only Internal Medicine [address] [address] Smith Orozco MD [address] [place] [address] [place] [address] [phone] Allergies Active Allergy Reactions Severity Noted Date [...] 5 07/30/2017 Active Terazosin HCl 2 MG CapsuleIndications:Ath erosclerosis of [place] coronary artery of [place] heart without angina pectoris,BPH with obstruction/lower urinary [...] Active glipiZIDE XL (GLUCOTROL XL) 10 MG [id number]:Type 2 diabetes mellitus with hemoglobin A1c goal [...] patient at prior appointment. CORONARY ATHEROSCLER. OF [place] CORONARY VESSEL 11/30/2001 GENERAL OSTEOARTHROSIS Multiple pulmonary nodules Complex renal cyst Overview: 3.8 cm; L documented as of this encounter (statuses as of 08/13/2018) Resolved Problems Problem Noted Date Resolved Date Genomics Cardio Research Other*[id number] 201004/22/2016 Overview: Study Titile: Genomics Markers for Patients with Cardiovascular Disease Project # [id number] PI: Amalia Kingsley MD Please call [phone] with study related questions HTN, goal below [...] Office Visit Internal Medicine Smith Orozco MD [address] [place] [address] [place] [address] 09/28/2018 Office Visit Cardiology Alcon Lott PA-C [address] [place] [address] [phone] 10/04/2018 Office Visit Dermatology Kim Kong MD [address] [facility] [place] [address] [phone] 02/08/2019 Imaging Radiology Health Maintenance Due Date [...] of this encounter Implants Implanted Type Area Criminal Lawyer Device Identifier Shelf Expiration Date Model / Serial / Lot Marker Coronary [facility] - [id number] Implanted:Qty: 1 on 12/26/2010 at OR [facility] N/A: Heart [employer] 10/13/2013 [facility] / / [id number] Sut Steel 6 M654g - [id number] Implanted:Qty: 5 on 12/26/2010 at OR [facility] Chest DO NOT USE 10/14/2015 M654G / / [id number] Band Ankur 225-292 - [id number] Implanted:Qty: 1 on 12/26/2010 at OR [facility] [employer] 225-353 / / [id number] documented as of this encounter Procedures Procedure Name Priority Date/Time Associated Diagnosis Comments DIABETIC EYE EXAM Routine 11/05/2017 documented in this encounter Results * DIABETIC EYE EXAM (11/05/2017) Specimen Narrative Performed At Performing Organization Address City/State/Zipcod e Phone Number OUTSIDE LAB (SEE SCANNED REPORT) documented in this encounter Advance Directives Documents on File Type Date Recorded Patient Manager Application Development Expl 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
--- OUTSIDE RECORDS SUMMARY | 2022-11-16 13:21 | External Medical Summary ---
Author Name Unknown Address [facility] [address] [facility] [place] [address] Phone Organization K01:[facility] [address] [facility] [place] [address] Laboratory Report Ordering Provider Test Date Status SELENE BRANDTO 03/18/2018 08:29:00 Final Observation Date Value Abnormality Reference Status Magnesium 03/18/2018 16:51 1.8 1.5-2.6 Fin al Performing Location [address] [place] [address]
--- OUTSIDE RECORDS SUMMARY | 2022-11-16 13:21 | External Medical Summary | Summary of Care ---
Author Name Unknown Organization [place] [address] Care Team Providers Care Manager Of Software Development Name Role Phone Smith Danielle MD Primary Care Provider [phone] Reason for Visit * Reason Comments eRx-Medication Refill Encounter Details Date Type Department Care Team Description 03/17/2018 Refill Internal Medicine [address] [place] [id number] Smith Danielle MD [address] [place] [address] [place] [id number] HTN, goal below 140/80; BPH with obstruction/lower urinary tract symptoms Allergies Active Allergy Reactions Severity Noted Date Comments Acetaminophen Renal complications 04/27/2009 Aspirin 08/13/2000 Stomach pain Cholestyramine 08/13/2000 Kidney pain Atorvastatin Calcium 04/28/2007 cramping Niacin Muscle pain 07/22/2007 Simvastatin Hives 08/13/2000 Ezetimibe 04/28/2007 Cramping ankles, turned feet inward as of this encounter Medications Medication Sig Dispensed Refills Start Date End Date Status GAVI 180 MG PO TABSIndications:All ergic rhinitis One pill by mouth once a day for allergies 30 5 07/23/2009 Active MAGNESIUM OXIDE 200 MG PO TABSIndications: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 one tablet twice a [...] DX: E11.9 200 Strip 5 07/30/2017 Active MetFORMIN (GLUCOPHAGE) 1000 MG TabletIndications: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),Type 2 diabetes mellitus with hemoglobin A1c goal of less than 8.0% (HCC) TAKE 1 TABLET BY MOUTH TWICE A DAY WITH MEALS 180 Tab 1 10/19/2017 Active omeprazole (PRILOSEC) 20 MG CPDRIndications:Pep tic ulcer TAKE ONE CAPSULE BY MOUTH DAILY ONE HOUR PRIOR TO THE FIRST MEAL OF THE DAY 90 Cap 1 12/18/2017 Active glipiZIDE XL (GLUCOTROL XL) 10 MG [id number]:Typ e 2 diabetes mellitus with hemoglobin A1c goal of less than 8.0% (HCC) TAKE 1 TABLET BY MOUTH TWICE A DAY 180 Tab 1 02/16/2018 Active amLODIPine (NORVASC) 5 MG Tablet TAKE 1 TABLET BY MOUTH TWICE A DAY 180 Tab 1 02/16/2018 Active Terazosin HCl 2 MG CapsuleIndications: Atherosclerosis of [place] coronary artery of [place] heart without angina pectoris,BPH with obstruction/lower urinary [...] MOUTH DAILY. 90 Tab 1 03/17/2018 Active finasteride (PROSCAR) 5 MG TabletIndications:B PH with obstruction/lower urinary tract symptoms TAKE 1 TABLET BY MOUTH DAILY. 90 Tab 1 09/22/2017 9 Discontinued losartan (COZAAR) 50 MG TabletIndications:H TN, goal below 140/80 TAKE ONE TABLET BY MOUTH TWICE A DAY 180 Tab 1 09/22/2017 9 Discontinued as of this encounter Active Problems Problem Noted Date Type 2 [...] patient at prior appointment. CORONARY ATHEROSCLER. OF [place] CORONARY VESSEL 11/30/2001 GENERAL OSTEOARTHROSIS Multiple pulmonary nodules Complex renal cyst Overview: 3.8 cm; L as of this encounter Resolved Problems Problem Noted Date Resolved Date Genomics Cardio Research Other*[id number] 201004/22/2016 Overview: Study Titile: Genomics Markers for Patients with Cardiovascular Disease Project # [id number] PI: Amalia Kingsley MD Please call [phone] with study related questions HTN, goal below [...] disease) stage 2, GFR 60-89 ml/min 06/26/2017 as of this encounter Immunizations Name Dates Previously Given Next Due [...] older)(Boostrix) 08/05/2012 Varicella Zoster Vaccine (Adult) 11/15/2011 as of this encounter Social History Tobacco Use Types Packs/Day Years Used Date Former Smoker 0 Smokeless Tobacco: Never Used Comments:quit in 1971 Alcohol Use Drinks/Week oz/Week Comments Yes rarely Sex Assigned at Date Recorded Not on file Job Start Date Occupation Industry Not on file Not on file Not on file Travel History Travel Start Travel End as of this encounter Miscellaneous Notes * Telephone Encounter - Smith Danielle MD - 03/17/2018 12:07 PM EST Signed Prescriptions: Disp Refills losartan (COZAAR) 50 MG Tablet 180 Tab1 Sig: TAKE ONE TABLET BY MOUTH TWICE A DAY Authorizing Provider: SMITH DANIELLE finasteride (PROSCAR) 5 MG Tablet 90 Tab 1 Sig: TAKE 1 TABLET BY MOUTH DAILY. Authorizing Provider: SMITH DANIELLE * Telephone Encounter - Kerri Ferreira LPN - 03/17/2018 10:29 AM EST Pending Prescriptions: Disp Refills losartan (COZAAR) 50 MG Tablet [Pharmacy *180 Tab1 Sig: TAKE ONE TABLET BY MOUTH TWICE A DAY finasteride (PROSCAR) 5 MG Tablet [Pharma*90 Tab 1 Sig: TAKE 1 TABLET BY MOUTH DAILY. * Telephone Encounter - Kerri Ferreira LPN - 03/17/2018 10:28 AM EST Pending Prescriptions: Disp Refills losartan (COZAAR) 50 MG Tablet [Pharmacy *180 Tab1 Sig: TAKE ONE TABLET BY MOUTH TWICE A DAY finasteride (PROSCAR) 5 MG Tablet [Pharma*90 Tab 1 Sig: TAKE 1 TABLET BY MOUTH DAILY. Last Office Visit: 02/18/2018 Next Office Visit: 08/19/2018 Scheduled Provider(s): Smith Danielle MD Last date the medication was ordered: 09/22/17 Patient Active Problem List Diagnosis Code GENERAL OSTEOARTHROSIS M15.9 CORONARY ATHEROSCLER. 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 ([facility]) E11.22, I12.9, N18.2 Labs: CREATININE(mg/dL) Lucía Dt/Tm Resulted Value Status 08/12/17 2:08P 08/12/17 1.1 FINAL POTASSIUM(mmol/L) Lucía Dt/Tm Resulted Value Status 08/12/17 2:08P 08/12/17 4.2 FINAL TSH(uIU/mL) Lucía Dt/Tm Resulted Value Status 08/22/13 11:51A 08/22/13 3.86 FINAL LDL (CALCULATED)(mg/dL) Lucía Dt/Tm Resulted Value Status 08/12/17 2:08P 08/12/17 123 FINAL LDL DIRECT(REFLEX)(mg/dL) Lucía Dt/Tm Resulted Value Status 08/12/17 2:08P 08/12/17 FINAL Value: NOT APPLICABLE ALT(U/L) Lucía Dt/Tm Resulted Value Status 07/08/13 7:57A 07/08/13 22 FINAL Hemoglobin AIC Results: HEMOGLOBIN, A1C(%) Lucía Dt/Tm Resulted Value Status 02/18/18 11:12A 02/18/18 7.1* FINAL 08/12/17 2:08P 08/12/17 7.0* FINAL 10/27/16 9:32A 10/27/16 6.4 FINAL in this encounter Plan of Treatment Upcoming Encounters Date Type Specialty Care Team Description 03/18/2018 Office Visit Cardiology Alcon Lott PA-Adelfo [address] [place] [address] [phone] 08/02/2018 Office Visit Dermatology Kim Kong MD [address] [place] [address] [phone] 08/19/2018 Office Visit Internal Medicine Smith Danielle MD [address] [place] [address] [place] [address] Health Maintenance Due Date Last Done Comments FOBT ANNUALLY,AGES 18-90 11/18/2013 013, 11/27/2010, 11/22/2009, Additional history exists DIABETES-EYE EXAM 10/09/2016 10/10/2015, , 09/20/2013, Additional history exists Yearly B-12 08/12/2018 08/12/2017 DIABETES-HGBA1C EVERY 6 MONTHS 08/19/2018 1 04/21/2017, 08/12/2017, 10/27/2016, Additional history exists DIABETES-FOOT EXAM 02/18/2019 02/18/2018, 1 04/01/2016, 01/24/2016, Additional history exists DTaP,Tdap,and Td Vaccines (2 - Td) 08/05/20222012, 03/16/2003 PNEUMOCOCCAL ADULT 65 YRS AND OVER Completed 10/16/2015, 12/15/2006, 04/01/2002 Influenza Vaccine (FLU shot) Completed 06/2017, 11/21/2016, 11/27/2015, Additional history exists as of this encounter Implants Implanted Type Area Gifts Officer Device Identifier Shelf Expiration Date Model / Serial / Lot Marker Coronary [employer]Sd - [id number] Implanted:Qty: 1 on 12/26/2010 N/A: Heart [employer] 10/13/2013 [facility] / / [id number] Sut Steel 6 M654g - [id number] Implanted:Qty: 5 on 12/26/2010 Chest DO NOT USE 10/14/2015 M654G / / [id number] Band [facility] 225-241 - [id number] Implanted:Qty: 1 on 12/26/2010 Chest [employer] 225-241 / / [id number] as of this encounter Visit Diagnoses Diagnosis HTN, goal below 140/80 Unspecified essential hypertension BPH with obstruction/lower urinary tract symptoms Hypertrophy of prostate with urinary obstruction and other lower urinary tract symptoms (LUTS) in this encounter Advance Directives Patient has advance care planning documents, and code status on file. For more information, please contact: [place] [address] Latest Code Status on File Code Status Date Activated Date Inactivated Comments Full Code 12/26/2010 11:49 AM 12/30/2010 3:24 PM Th is order reflects the patients wishes and were consensually agreed upon.
--- OUTSIDE RECORDS SUMMARY | 2022-11-16 13:21 | External Medical Summary ---
Author Name Unknown Address [address] [facility] [place] [phone] Phone Organization K01:[facility] [address] [place] [id number] Laboratory Report Ordering Provider Test Date Status VITOR BRANDT 03/18/2018 08:29:00 Final Observation Date Value Abnormality Reference Status BUN 03/18/2018 16:51 27 Above high normal 6-20 Final Creatinine 03/18/2018 16:51 1.1 0.6-1.2 Fi nal Performing Location [facility] [address] [facility] [address]
--- OUTSIDE RECORDS SUMMARY | 2022-11-16 13:21 | External Medical Summary ---
Author Name Unknown Address [address] [facility] [place] [address] Phone Organization K01:[facility] [address] [facility] [place] [address] Laboratory Report Ordering Provider Test Date Status LOLIS BRADFORD 02/18/2018 11:12:00 Final Observation Date Value Abnormality Reference Status HbA1C 02/18/2018 22:10 7.1 Above high normal 4.0-5 .6 Final Performing Location [facility] [address] [facility] [place] [address]
--- OUTSIDE RECORDS SUMMARY | 2022-11-16 13:21 | External Medical Summary | Summary of Care ---
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 Name Role Phone Smith Orozco MD Primary Care Provider [phone] Reason for Visit * Reason Comments eRx-Medication Refill Encounter Details Date Type Department Care Team Description 02/16/2018 Refill Cardiology [address] [address] Karly Adler PA-Adelfo [address] [place] [address] [phone] Atherosclerosis of [place] coronary artery of [place] heart without angina pectoris; BPH with obstruction/lower [...] Each 5 07/30/2017 Active ONETOUCH ULTRA BLUE STRPIndications:Ty pe 2 diabetes mellitus with hemoglobin A1c goal of less than 8.0% (HCC) USE TO TEST TWICE A DAY DX: E11.9 200 Strip 5 07/30/2017 Active finasteride (PROSCAR) 5 MG TabletIndications: BPH with obstruction/lower urinary tract symptoms TAKE 1 TABLET BY MOUTH DAILY. 90 Tab 1 09/22/2017 Active losartan (COZAAR) 50 MG TabletIndications: HTN, goal below 140/80 TAKE ONE TABLET BY MOUTH TWICE A DAY 180 Tab 1 09/22/2017 Active MetFORMIN (GLUCOPHAGE) 1000 MG TabletIndications: Type 2 diabetes mellitus with diabetic nephropathy (HCC),Type 2 diabetes mellitus with hemoglobin A1c goal of less than 8.0% (HCC) TAKE 1 TABLET BY MOUTH TWICE A DAY WITH MEALS 180 Tab 1 10/19/2017 Active omeprazole (PRILOSEC) 20 MG CPDRIndications:Pe ptic ulcer TAKE ONE CAPSULE BY MOUTH DAILY ONE HOUR PRIOR TO THE FIRST MEAL OF THE DAY 90 Cap 1 12/18/2017 Active amLODIPine (NORVASC) 5 MG Tablet TAKE 1 TABLET BY MOUTH TWICE A DAY 180 Tab 1 02/16/2018 Active Terazosin HCl 2 MG CapsuleIndications :Atherosclerosis of [place] coronary artery of [place] heart without angina pectoris,BPH with obstruction/lower urinary tract symptoms,Essential hypertension with goal blood pressure less than 140/90 TAKE 1 CAP BY MOUTH AT BEDTIME. 90 Cap 3 02/16/2018 Active terazosin 2 MG CapsuleIndications :Atherosclerosis of [place] coronary artery of [place] heart without angina pectoris,BPH with obstruction/lower urinary tract symptoms,Essential hypertension with goal blood pressure less than 140/90 Take 1 Cap by mouth at bedtime. 90 Cap 3 03/05/2017 8 Discontinued amLODIPine (NORVASC) 5 MG Tablet Take 1 Tab by mouth 2 times a day. 180 Tab 1 09/03/2017 8 Discontinued as of this encounter Active Problems Problem Noted Date Hx of nonmelanoma skin cancer 11/19/2016 Overview: [...] patient at prior appointment. CORONARY ATHEROSCLER. OF [place] CORONARY VESSEL 11/30/2001 GENERAL OSTEOARTHROSIS Multiple pulmonary nodules Complex renal cyst Overview: 3.8 cm; L as of this encounter Resolved Problems Problem Noted Date Resolved Date [employer] Other*[id number] 201004/22/2016 Overview: Study Titile: [employer] Markers for Patients with Cardiovascular Disease Project # [id number] PI: Amalia Kingsley MD Please call [phone] with study related questions HTN, goal below [...] Telephone Encounter - Karly Adler PA-C - 02/16/2018 11:04 AM EST Signed Prescriptions: Disp Refills amLODIPine (NORVASC) 5 MG Tablet 180 Tab1 Sig: TAKE 1 TABLET BY MOUTH TWICE A DAY Authorizing Provider: KARLY ADLER Terazosin HCl 2 MG Capsule 90 Cap 3 Sig: TAKE 1 CAP BY MOUTH AT BEDTIME. Authorizing Provider: KARLY ADLER * Telephone Encounter - Suzan Alcantar RN - 02/16/2018 9:34 AM EST Pending Prescriptions: Disp Refills amLODIPine (NORVASC) 5 MG Tablet [Pharmac*180 Tab1 Sig: TAKE 1 TABLET BY MOUTH TWICE A DAY Terazosin HCl 2 MG Capsule [Pharmacy Med *90 Cap 3 Sig: TAKE 1 CAP BY MOUTH AT BEDTIME. * Telephone Encounter - Tracie Suárez LPN - 02/16/2018 9:28 AM EST Pending Prescriptions: Disp Refills amLODIPine (NORVASC) 5 MG Tablet [Pharmac*180 Tab1 Sig: TAKE 1 TABLET BY MOUTH TWICE A DAY Terazosin HCl 2 MG Capsule [Pharmacy Med *90 Cap 3 Sig: TAKE 1 CAP BY MOUTH AT BEDTIME. * Telephone Encounter - Tracie Suárez LPN - 02/16/2018 9:28 AM EST Pending Prescriptions: Disp Refills amLODIPine (NORVASC) 5 MG Tablet [Pharmac*180 Tab1 Sig: TAKE 1 TABLET BY MOUTH TWICE A DAY Terazosin HCl 2 MG Capsule [Pharmacy Med *90 Cap 3 Sig: TAKE 1 CAP BY MOUTH AT BEDTIME. Last Office Visit: 09/03/2017 Next Office Visit: 03/18/2018 Scheduled Provider(s): Karly Adler PA-C Last date the medication was ordered: 03/05/17, 09/03/17 Patient Active Problem List Diagnosis Code GENERAL OSTEOARTHROSIS M15.9 CORONARY ATHEROSCLER. OF [place] CORONARY VESSEL I25.10 ADVANCE DIRECTIVE INFORMATION DM TYPE 2 CAUSING RENAL DZ E11.29 Type 2 diabetes mellitus with hemoglobin A1c goal of less than 8.0% ([facility]) E11.9 DYSLIPIDEMIA, GOAL LDL BELOW 70 E78.5 BPH with obstruction/lower urinary tract symptoms N40.1, N13.8 Essential hypertension with goal blood pressure less than 140/90 I10 Statin intolerance Z78.9 Multiple pulmonary nodules R91.8 Ischemic cardiomyopathy I25.5 Complex renal cyst N28.1 Hx of actinic keratosis Z87.2 Type 2 diabetes mellitus with stage 2 chronic kidney disease, without long- term current use of insulin ([facility]) E11.22, N18.2 Hx of nonmelanoma skin cancer Z85.828 Labs: CREATININE(mg/dL) Lucía Dt/Tm Resulted Value Status [...] HEMOGLOBIN, A1C(%) Lucía Dt/Tm Resulted Value Status 08/12/17 2:08P 08/12/17 7.0* FINAL 10/27/16 9:32A 10/27/16 6.4 FINAL 07/25/16 8:23A 07/25/16 7.0* FINAL in this encounter Plan of Treatment Upcoming Encounters Date Type Specialty Care Team Description 02/18/2018 Office Visit Internal Medicine Smith Orozco MD [address] [place] [address] [place] [id number] 03/18/2018 Office Visit Cardiology Karly Adler PA-C [address] [facility] [place] [address] 08/02/2018 Office Visit Dermatology Kim Kong MD [address] [place] [address], [place] [address] [phone] Health Maintenance Due Date Last Done Comments FOBT ANNUALLY,AGES 18-90 11/18/2013 013, 11/27/2010, 11/22/2009, Additional history exists DIABETES-EYE EXAM 10/09/2016 10/10/2015, , 09/20/2013, Additional history exists DIABETES-FOOT EXAM 01/30/2018 01/30/2017, 1 03/25/2015, 04/17/2015, Additional history exists *DEPRESSION SCREENING, [facility] [place] FOR PTS 18 AND OVER 02/01/2018 DIABETES-HGBA1C EVERY 6 MONTHS 02/12/2018 0 08/12/2017, 10/27/2016, 07/25/2016, Additional history exists Yearly B-12 08/12/2018 08/12/2017 DTaP,Tdap,and Td Vaccines (2 - Td) 08/05/20222012, 03/16/2003 PNEUMOCOCCAL ADULT 65 YRS AND OVER Completed 10/16/2015, 12/15/2006, 04/01/2002 Influenza Vaccine (FLU shot) Completed 06/2017, 11/21/2016, 11/27/2015, Additional history exists as of this encounter Implants Implanted Type Area Time Cycle Operator Device Identifier Shelf Expiration Date Model / Serial / Lot Marker Coronary AmNuvosun-Sd - [id number] Implanted:Qty: 1 on 12/26/2010 N/A: Heart [employer] 10/13/2013 AM-SD / / [id number] Sut Steel 6 M654g - [id number] Implanted:Qty: 5 on 12/26/2010 Chest DO NOT USE 10/14/2015 M654G / / [id number] Band Ankur 225-241 - [id number] Implanted:Qty: 1 on 12/26/2010 Chest [employer] 225-241 / / [id number] as of this encounter Visit Diagnoses Diagnosis Atherosclerosis of [place] coronary artery of [place] heart without angina pectoris BPH with obstruction/lower urinary tract symptoms Hypertrophy of prostate with urinary obstruction and other lower urinary tract symptoms (LUTS) Essential hypertension with goal blood pressure less than 140/90 in this encounter Advance Directives Patient has advance care planning documents, and code status on file. For more information, please contact: [place] [address] Latest Code Status on File Code Status Date Activated Date Inactivated Comments Full Code 12/26/2010 11:49 AM 12/30/2010 3:24 PM Th is order reflects the patients wishes and were consensually agreed upon.
--- OUTSIDE RECORDS SUMMARY | 2022-11-16 13:21 | External Medical Summary | Summary of Care ---
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 Name Role Phone Smith Orozco MD Primary Care Provider Reason for Referral * Precert (Routine) Status Reason Specialty Diagnoses / Procedures Referred By Contact Referred To Contact Pending Review Precert Cardiac Studies Diagnoses Ischemic cardiomyopathy Procedures ECHO, COMPLETE (2D), TRANS-THORACIC Alcon Lott PA-C [address] [place] [address] Reason for Visit * Reason Comments Follow Up 6 month return Encounter Details Date Type Department Care Team Description 03/18/2018 Office Visit Cardiology [address] [address] Alcon Lott PA-C [address] [place] [address] [phone] Atherosclerosis of [place] coronary artery of [place] heart without angina pectoris*; Essential hypertension with goal blood pressure less than 140/90; Ischemic cardiomyopathy; Dyslipidemia, goal LDL below 70; Statin intolerance; Hypomagnesemia; Tingling of both upper extremities; Bilateral carotid bruits Allergies Active Allergy Reactions [...] WITH PONDS 45 g 5 03/25/2017 Active Aventa TechnologiesTOUCH ULTRASOFT LANCETS MISCIndications:Type 2 diabetes mellitus with hemoglobin A1c goal of less than 8.0% (HCC) USE TO TEST DIRECTED 2 TIMES A DAY. 200 Each 5 07/30/2017 Active Aventa TechnologiesTOUCH ULTRA BLUE STRPIndications:Type 2 diabetes mellitus with hemoglobin A1c goal of less than 8.0% (HCC) USE TO TEST TWICE A DAY DX: E11.9 200 Strip 5 07/30/2017 Active MetFORMIN (GLUCOPHAGE) 1000 MG TabletIndications:Type 2 diabetes mellitus with diabetic nephropathy (HCC),Type 2 diabetes mellitus with hemoglobin A1c goal of less than 8.0% (HCC) TAKE 1 TABLET BY MOUTH TWICE A DAY WITH MEALS 180 Tab 1 10/19/2017 Active omeprazole (PRILOSEC) 20 MG CPDRIndications:Peptic ulcer TAKE ONE CAPSULE BY MOUTH DAILY ONE HOUR PRIOR TO THE FIRST MEAL OF THE DAY 90 Cap 1 12/18/2017 Active glipiZIDE XL (GLUCOTROL XL) 10 MG [id number]:Type 2 diabetes mellitus with hemoglobin A1c goal of less than 8.0% (HCC) TAKE 1 TABLET BY MOUTH TWICE A DAY 180 Tab 1 02/16/2018 Active amLODIPine (NORVASC) 5 MG Tablet TAKE 1 TABLET BY MOUTH TWICE A DAY 180 Tab 1 02/16/2018 Active Terazosin HCl 2 MG CapsuleIndications:Ath erosclerosis of [place] coronary artery of [place] heart without angina pectoris,BPH with obstruction/lower [...] MOUTH DAILY. 90 Tab 1 03/17/2018 Active as of this encounter Active Problems Problem [...] patient at prior appointment. CORONARY ATHEROSCLER. OF [place] CORONARY VESSEL 11/30/2001 GENERAL OSTEOARTHROSIS Multiple pulmonary nodules Complex renal cyst Overview: 3.8 cm; L as of this encounter Resolved Problems Problem Noted Date Resolved Date [employer] Other*[id number] 201004/22/2016 Overview: Study Titile: Genomics Markers for Patients with Cardiovascular Disease Project # [id number] PI: Amalia Kingsley MD Please call [phone] with study related questions HTN, goal below [...] Start Travel End as of this encounter Last Filed Vital Signs Vital Sign Reading Time Taken Blood Pressure 128/74 03/18/2018 7:52 AM EST Pulse 56 03/18/2018 7:52 AM EST Temperature - - Respiratory Rate 16 03/18/2018 7:52 AM EST Oxygen Saturation - - Inhaled Oxygen Concentration - - Weight 65.3 kg (144 lb) 03/18/2018 7:52 AM EST Height - - Body Mass Index 23.96 03/18/2018 7:52 AM EST in this encounter Progress Notes * Alcon Lott PA-C - 03/18/2018 8:00 AM EST History of Present Illness: Mr. Reynolds is a very pleasant 77 year old male here today for routinecardiology follow-up. No complaints or concerns. No interim ER evaluations or hospitalizations. No chest pain, palpitations, or unusual shortness of breath. He notes transient peripheral edema with prior titration of terazosin, resolving after approximately one week. No cough, orthopnea, or PND. Nolightheadedness, dizziness, near syncope, or true syncope reported. No excessive bruising or bleeding noted. Bilateral upper extremity numbness occurring without rhyme or reason, in a pattern consistent with carpal tunnel. Patient Active Problem List Diagnosis Code GENERAL OSTEOARTHROSIS M15.9 CORONARY ATHEROSCLER. OF [place] CORONARY VESSEL I25.10 ADVANCE DIRECTIVE INFORMATION DM [...] disease and hypertension (HCC) E11.22, I12.9, N18.2 Past Surgical History: Inguinal hernia. CABG Social History: From [place]. Lives in [place] with his . Reformed smoker. 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 Review of patient's allergies indicates: Allergen Reactions [...] MOUTH TWICE A DAY 180 Tab 1 glimepiride (AMARYL) 1 MG Tablet Take 1 Tab by mouth daily. with the first main meal of the dayfor diabetes 90 Tab 1 Meloxicam 7.5 MG Tablet Take 1 Tab by mouth daily. for pain. 30 Tab 5 amLODIPine (NORVASC) 5 MG Tablet TAKE 1 TABLET BY MOUTH TWICE A DAY 180 Tab 1 glipiZIDE XL (GLUCOTROL XL) 10 MG TB24 TAKE 1 TABLET BY MOUTH TWICE A DAY 180 Tab 1 Terazosin HCl 2 MG Capsule TAKE 1 CAP BY MOUTH AT BEDTIME. 90 Cap 3 omeprazole (PRILOSEC) 20 MG CPDR TAKE ONE CAPSULE BY MOUTH DAILY ONE HOUR PRIOR TO THE FIRST MEAL OF THE DAY 90 Cap 1 MetFORMIN (GLUCOPHAGE) 1000 MG Tablet TAKE 1 TABLET BY MOUTH TWICE A DAY WITH MEALS 180 Tab 1 ONETOUCH ULTRA BLUE STRP USE TO TEST TWICE A DAY DX: E11.9 200 Strip 5 ONETOUCH ULTRASOFT LANCETS [facility] USE TO TEST DIRECTED 2 TIMES A [...] once a day for allergies 30 5 PHYSICAL EXAMINATION BP 128/74 | Pulse 56 | Resp 16 | Wt 144 lbs (65.318kg) | BMI 23.96 kg/m | BSA 1.73 m | BP on my examination was 126/58 via the right arm using the wall mounted cuff General: A&Ox3. NAD. HEENT: Normocephalic. Atraumatic. PER. Conjunctiva pink, sclera clear. Neck: Bilateral carotid bruits. No JVD. No HJR. Heart: Regular at 56 bpm. Grade II/ systolic ejection murmur. No rub. No gallop. PMI is nondisplaced. Lungs: Clear to auscultation. Abdomen: +BS. No abdominal bruits. Soft. Nontender. No masses or organomegaly. Extremities: No clubbing, cyanosis, or edema. Limited neurological examination is without focal deficits. Pulses: radial=2/4, posterior tibial=2/4. Data: August 2014 Carotid Duplex Impression: Right carotid artery duplex examination indicates evidence of <50% stenosis of the internal carotid artery. Left carotid artery duplex examination indicates evidence of 50% stenosis of the internal carotid artery February 27, 2017 TTE Interpretation Summary (as per Dr. Dietrich): The wall thickness is mildly increased in segments with normal wall motion. There is a large sized septal, anteroseptal, inferior, and posterior wall motion abnormality with hypokinesis to akinesis of the segments. The left ventricular systolic function is mildly reduced. The qualitativeLV ejection fraction is 45-49%(mildly reduced). Aortic stenosis is absent. Moderate aortic valve regurgitation is present. There are two separate aortic insufficiency jets. Mild mitral regurgitation is present. Trace tricuspid regurgitation is present. Compared to the prior study dated 08/29/2014, there has been no significant interval change. EKG today demonstrates sinus bradycardia at 54 bpm with a first degree AV block, nonspecific intraventricular conduction block, old inferior and anterior infarcts. QTc: 400 ms. ASSESSMENT: 1. Labile hypertension. 2. ASCVD, ischemic cardiomyopathy with past inferior IL in 1994 managed at [facility]. 3. Catheterization in 2010 following abnormal [...] and obtuse marginal. 5. Ischemic cardiomyopathy, LVEF 45-49%. 6. Normovolemic. 7. Moderate aortic insufficiency. 8. Compensated volume status. 9. Palpitations in association with sensed ectopy. 10. Dyslipidemia. Documented statin intolerance. 11. Type II diabetes mellitus. Followed by PCP. 12. Carotid artery disease. History of prior TIA with transient leg weakness. 13. BPH Stable ASCVD. BP is well controlled today as well as on home monitoring. Volume status is compensated. Palpitations have been quiescent. Options discussed. Plan agreed upon as detailed below. RECOMMENDATIONS/PLAN: 1. Non-fasting laboratory work today 2. Bilateral carotid duplex prior to next cardiology follow-up, RE: Bilateral carotid bruits, mild disease in August 2014 3. Resting echocardiogram just prior to next evaluation, RE: Reassess LV systolic function and valvular status. 4. Routine cardiology follow-up in 6 months or as needed. 5. ER with emergencies. Alcon Lott PA-C Department of Cardiology in this encounter Procedure Notes * Jatin Dietrich DO - 03/18/2018 7:51 AM EST Associated Order(s): EKG REASON FOR STUDY: HTN CONCLUSIONS: Sinus bradycardia with 1st degree AV block Inferior infarct (cited on or before 18-DEC-2010) Anterior infarct (cited on or before 18-DEC-2010) Abnormal ECG When compared with ECG of 05-MAR-2017 09:52, No significant change was found Ventricular Rate: 54 Atrial Rate: 54 ND Interval: 282 QRS Duration: 122 QT/QTc: 422/400 ms P-R-T [place]: 57 : 66 : -23 degrees in this encounter Nursing Notes * Arlette Fung RN - 03/18/2018 7:52 AM EST Examination Room: 3 Name: Cl Reynolds Date of : (1940). Reason for Visit: 6 month return Interim Hospitalization(s): Denied Problems/Concerns: No cardiac problems voiced Chest Pain/SOB: Denied [facility] is a way you can talk to your provider online through e-mail. Would you like to sign up? I can activate it for you? IN PROCESS in this encounter Miscellaneous Notes * Result Alcon Trinidad PA-C - 03/18/2018 6:35 PM EST Random glucose 234 mg/dL Mildly abnormal TSH. Normal free T4. Check TSH & Free T4 in 6 weeks All other labs stable in this encounter Plan of Treatment Upcoming Encounters Date Type Specialty Care Team Description 08/03/2018 Cardiac Studies Cardiac Studies [place], Traffic Enumerator [address] [place] [address] 08/03/2018 Imaging Radiology 08/19/2018 Office Visit Internal Medicine Smith Orozco MD [address] [facility] [place] [address] [phone] 09/28/2018 Office Visit Cardiology Alcon Lott PA-C [address] [place] [address] [phone] 10/04/2018 Office Visit Dermatology Kim Kong MD [address] [facility] [place] [address] [phone] Scheduled Tests Name Priority Associated Diagnoses Order S chedule VASC DUPLEX CAROTID BILAT Routine Bilateral carotid bruits Expected: 04/18/2018 (Approximate), Expires: 09/15/2018 ECHO, COMPLETE (2D), TRANS-THORACIC Routine Ischemic cardiomyopathy Expected: 04/18/2018 (Approximate), Expires: 09/15/2018 Health Maintenance Due Date Last Done Comments [...] of this encounter Implants Implanted Type Area Labels Molder Device Identifier Shelf Expiration Date Model / Serial / Lot Marker Coronary [employer]-Sd - [id number] Implanted:Qty: 1 on 12/26/2010 N/A: Heart [employer] 10/13/2013 AMGM-SD / / [id number] Sut Steel 6 M654g - [id number] Implanted:Qty: 5 on 12/26/2010 Chest DO NOT USE 10/14/2015 M654G / / [id number] [employer] 225-241 - [id number] Implanted:Qty: 1 on 12/26/2010 Chest [employer] 225-241 / / [id number] as of this encounter Procedures Procedure Name Priority Date/Time Associated Diagnosis Comments TSH W/FT4 IF TSH IS INDICATED Routine 03/18/2018 8:29 AM EST Tingling of both upper extremities COMPR METAB PANEL Routine 03/18/2018 8:2 9 AM EST Tingling of both upper extremities CBC Routine 03/18/2018 8:29 AM EST Essential hypertension with goal blood pressure less than 140/90 MAGNESIUM Routine 03/18/2018 8:29 AM EST Hypomagnesemia Tingling of both upper extremities EKG Routine 03/18/2018 7:51 AM EST Essential hypertension with goal blood pressure less than 140/90 in this encounter Results * MAGNESIUM (03/18/2018 8:29 AM EST) MAGNESIUM 1.8 1.5 - 2.6 mg/dL [facility] Performing Organization Address City/State/Zipcod e Phone Number [facility], [address] [place] [address] * COMPR METAB PANEL (03/18/2018 8:29 AM EST) BUN 27(H) 6 - 20 mg/dL [facility] CREATININE 1.1 Comment: GFR should be used to assess renal function.Plasma/Seru m creatinine may not be able to properly reflect renal function in some cases. 0.6 - 1.2 mg/dL [facility] E GLOM FILT RATE >60.0Comment:If puja ent is , multiply estimated GFR by 1.159. >60 [facility] SODIUM 138 135 - 146 mmol/L [facility] POTASSIUM 4.2 3.5 - 5.1 mmol/L [facility] CHLORIDE 100 98 - 107 mmol/L [facility] CO2 26 22 - 32 mmol/L [facility] ANION GAP 12 7 - 15 mmol/L [facility] GLUCOSE 234(H) 70 - 120 mg/dL [facility] ALBUMIN 4.2 3.8 - 5.0 g/dL [facility] AST 21 10 - 50 U/L [facility] ALKALINE PHOSPHATASE 46 0 - 153 U/L [facility] BILIRUBIN, TOTAL 0.3 0 - 1.2 mg/dL [facility] CALCIUM 9.7 8.4 - 10.2 mg/dL [facility] PROTEIN 6.9 6.0 - 8.3 g/dL [facility] ALT 16 10 - 50 U/L [facility] Performing Organization Address City/[facility] e Phone Number [facility], [address] [place] [address] * TSH W/FT4 IF TSH IS INDICATED (03/18/2018 8:29 AM EST) TSH 4.73(H) 0.27 - 4.2 uIU/mL [facility] FREE T4 REFLEXIVE 0.982 0.9 - 1.7 ng/dL [facility] Performing Organization Address City/[facility] Phone Number [facility], [address] [place] [address] * CBC (03/18/2018 8:29 AM EST) WBC 4.13 4.00 - 10.80 K/uL [facility] RBC 4.21(L) 4.50 - 5.25 M/uL [facility] HGB 14.1 14.0 - 16.8 g/dL [facility] HCT 40.5 40.0 - 48.4 % [facility] MCV 96.2 82.0 - 99.5 fL [facility] MCH 33.5 27.0 - 34.0 pg [facility] MCHC 34.8 32.0 - 36.0 g/dL [facility] RDW 12.2 11.5 - 15.5 % [facility] PLATELET COUNT 168 140 - 400 K/uL [facility] MPV 10.0 6.6 - 11.1 fL [facility] Performing Organization Address [facility] e Phone Number [facility], [address] [place] [address] * EKG (03/18/2018 7:51 AM EST) Procedure Note Jatin Dietrich, DO - 03/18/2018 7:51 AM EST REASON FOR STUDY: HTN CONCLUSIONS: Sinus bradycardia with 1st degree AV block Inferior infarct (cited on or before 18-DEC-2010) Anterior infarct (cited on or before 18-DEC-2010) Abnormal ECG When compared with ECG of 05-MAR-2017 09:52, No significant change was found Ventricular Rate: 54 Atrial Rate: 54 ND Interval: 282 QRS Duration: 122 QT/QTc: 422/400 ms P-R-T [place]: 57 : 66 : -23 degrees Performing Organization Address City/[facility] e Phone Number [facility] CARDIOLOGY in this encounter Visit Diagnoses Diagnosis Atherosclerosis of [place] coronary artery of [place] heart without angina pectoris- Primary Essential hypertension with goal blood pressure less than 140/90 Ischemic cardiomyopathy Other specified forms of chronic ischemic heart disease Dyslipidemia, goal LDL below 70 Other and unspecified hyperlipidemia Statin intolerance Other drug allergy Hypomagnesemia Disorders of magnesium metabolism Tingling of both upper extremities Bilateral carotid bruits in this encounter Advance Directives Patient has advance care planning documents, and code status on file. For more information, please contact: [place] [id number] Latest Code Status on File Code Status Date Activated Date Inactivated Comments Full Code 12/26/2010 11:49 AM 12/30/2010 3:24 PM Th is order reflects the patients wishes and were consensually agreed upon."
--- OUTSIDE RECORDS SUMMARY | 2022-11-16 13:21 | External Medical Summary | Summary of Care ---
Author Name Unknown Organization [place] [address] Care Team Providers Care Check Writing Machine Operator Name Role Phone Smith Orozco MD Primary Care Provider Encounter Details Date Type Department Care Team Description 03/22/2018 Result Scan Unspecified Department <No scans attached> Allergies Active [...] MIX WITH PONDS 45 g 03/25/2017 Active ONETOUCH ULTRASOFT LANCETS MISCIndications:Type 2 diabetes mellitus with hemoglobin A1c goal of less than 8.0% (HCC) USE TO TEST DIRECTED 2 TIMES A DAY. 200 Each 07/30/2017 Active ONETOUCH ULTRA BLUE STRPIndications:Type 2 [...] Active glipiZIDE XL (GLUCOTROL XL) 10 MG [id number]:Type 2 diabetes mellitus with hemoglobin A1c goal of less than 8.0% ([facility]) TAKE 1 TABLET BY MOUTH TWICE A DAY 180 Tab 1 02/16/2018 Active amLODIPine (NORVASC) 5 MG Tablet TAKE 1 TABLET BY MOUTH TWICE A DAY 180 Tab 1 02/16/2018 Active Terazosin HCl 2 MG CapsuleIndications:Ath erosclerosis of [place] coronary artery of [place] heart without angina pectoris,BPH with obstruction/lower urinary [...] patient at prior appointment. CORONARY ATHEROSCLER. OF [place] CORONARY VESSEL 11/30/2001 GENERAL OSTEOARTHROSIS Multiple pulmonary nodules Complex renal cyst Overview: 3.8 cm; L as of this encounter Resolved Problems Problem Noted Date Resolved Date [employer] Card[employer] Research Other*[id number] 201004/22/2016 Overview: Study Titile: Genomics Markers for Patients with Cardiovascular Disease Project # [id number] PI: Amalia Kingsley MD Please call [phone] with study related questions HTN, goal below [...] Start Travel End as of this encounter Plan of Treatment Upcoming Encounters Date Type Specialty Care Team Description 08/03/2018 Cardiac Studies Cardiac Studies [address] [place] [address] 08/03/2018 Imaging Radiology 08/19/2018 Office Visit Internal Medicine Smith Orozco MD [address] [place] [address] [place] [address] [phone] 09/28/2018 Office Visit Cardiology Alcon Lott PA-C [address] [facility] [place] [address] [phone] 10/04/2018 Office Visit Dermatology Kim Kong MD [address] [place] [address] [address] [place] [address] [phone] Health Maintenance Due Date Last Done Comments [...] of this encounter Implants Implanted Type Area Government Auditor Device Identifier Shelf Expiration Date Model / Serial / Lot Marker Coronary [facility]-Sd - [id number] Implanted:Qty: 1 on 12/26/2010 N/A: Heart [employer] 10/13/2013 AM-SD / / [id number] Sut [employer] 6 M654g - [id number] Implanted:Qty: 5 on 12/26/2010 Chest DO NOT USE 10/14/2015 M654G / / [id number] [facility] 225-241 - [id number] Implanted:Qty: 1 on 12/26/2010 Chest [employer] 225-241 / / [id number] as of this encounter Procedures Procedure Name Priority Date/Time Associated Diagnosis Comments OUTSIDE LAB RESULTS 03/22/2018 in this encounter Results * OUTSIDE LAB RESULTS (03/22/2018) Narrative Performed At in this encounter Advance Directives Patient has advance care planning documents, and code status on file. For more information, please contact: [place] [phone] Latest Code Status on File Code Status Date Activated Date Inactivated Comments Full Code 12/26/2010 11:49 AM 12/30/2010 3:24 PM Th is order reflects the patients wishes and were consensually agreed upon.
--- OUTSIDE RECORDS SUMMARY | 2022-11-16 13:21 | External Medical Summary | Summary of Care ---
Author Name Unknown Organization [place] [address] Care Team Providers Care Medical Authorization Specialist Name Role Phone Smith Orozco MD Primary Care Provider + [phone] Reason for Visit * Reason Comments Re-Check Encounter Details Date Type Department Care Team Description 02/18/2018 Office Visit Internal Medicine [address] [address] Smith Orozco MD [address] [place] [address] [facility] [id number] Type 2 diabetes mellitus with stage 2 chronic kidney disease, without long-term current use of insulin ([facility])*; DM type 2 nursing care encounter ([facility]); Atherosclerosis of wiyot coronary artery of wiyot heart without angina pectoris; Type 2 diabetes mellitus with hemoglobin A1c goal of less than 8.0% ([facility]); Generalized osteoarthritis Allergies Active Allergy Reactions Severity Noted Date [...] WITH PONDS 45 g 5 03/25/2017 Active CallAppTOUCH ULTRASOFT LANCETS MISCIndications:Type 2 diabetes mellitus with hemoglobin A1c goal of less than 8.0% (HCC) USE TO TEST DIRECTED 2 TIMES A DAY. 200 Each 5 07/30/2017 Active ONETOUCH ULTRA BLUE STRPIndications:Type 2 diabetes mellitus with hemoglobin A1c goal of less than 8.0% (HCC) USE TO TEST TWICE A DAY DX: E11.9 200 Strip 5 07/30/2017 Active finasteride (PROSCAR) 5 MG TabletIndications:BPH with obstruction/lower urinary tract symptoms TAKE 1 TABLET BY MOUTH DAILY. 90 Tab 1 09/22/2017 Active losartan (COZAAR) 50 MG TabletIndications:HTN, goal below 140/80 TAKE ONE TABLET BY MOUTH TWICE A DAY 180 Tab 1 09/22/2017 Active MetFORMIN (GLUCOPHAGE) 1000 MG TabletIndications:Type 2 [...] Active glipiZIDE XL (GLUCOTROL XL) 10 MG [id number]:Type 2 diabetes mellitus with hemoglobin A1c goal of less than 8.0% (HCC) TAKE 1 TABLET BY MOUTH TWICE A DAY 180 Tab 1 02/16/2018 Active amLODIPine (NORVASC) 5 MG Tablet TAKE 1 TABLET BY MOUTH TWICE A DAY 180 Tab 1 02/16/2018 Active Terazosin HCl 2 MG CapsuleIndications:Ath erosclerosis of wiyot coronary artery of wiyot heart without angina pectoris,BPH with obstruction/lower urinary tract symptoms,Essential hypertension with goal blood pressure less than 140/90 TAKE 1 CAP BY MOUTH AT BEDTIME. 90 Cap 3 02/16/2018 Active Meloxicam 7.5 MG TabletIndications:Gene ralized osteoarthritis Take 1 Tab by mouth daily. for pain. 30 Tab 5 02/18/2018 Active as of this encounter Active Problems [...] patient at prior appointment. CORONARY ATHEROSCLER. OF [place] CORONARY VESSEL 11/30/2001 GENERAL OSTEOARTHROSIS Multiple pulmonary nodules Complex renal cyst Overview: 3.8 cm; L as of this encounter Resolved Problems Problem Noted Date Resolved Date [employer] Card[employer] Research Other*[id number] 201004/22/2016 Overview: Study Titile: Genomics Markers for Patients with Cardiovascular Disease Project # [id number] PI: Baljinder Hung MD Please call [phone] with study related questions HTN, goal below [...] Vital Sign Reading Time Taken Blood Pressure 122/72 02/18/2018 10:40 AM EST Pulse 68 02/18/2018 10:40 AM EST Temperature 36.1 C (97 F) 02/18/2018 10: 40 AM EST Respiratory Rate 12 02/18/2018 10:4 0 AM EST Oxygen Saturation - - Inhaled Oxygen Concentration - - Weight 64 kg (141 lb) 02/18/2018 10:40 AM EST Height - - Body Mass Index 23.46 02/18/2018 10:40 AM EST in this encounter Patient Instructions * Patient Instructions* Janell Stover, KYLE - 02/18/2018 10:43 AM EST Diabetes: Keeping Feet Healthy Inspect [...] calluses yourself. Talk to your doctor or sort line worker (a doctor who specializes in foot care) [...] the area doesnt appear to be healing. [phone] [employer], [address] [place] [address], [place] [address]. All rights reserved. This information is not intended as a substitute for professional medical care. Always follow your healthcare professional's instructions. in this encounter Progress Notes * Smith Orozco MD - 02/18/2018 10:43 AM EST No complaints of headache, trouble with vision or hearing. Eating well, with no bowel or bladder complaints. Denies chest pain or palpitations. Denies shortness of breath, PND, or orthopnea. He does see cardiology. He has been unable to tolerate statins. No skin rashes or breakdown. He does have some generalized joint aches and pains and the hands get pretty stiff. Dr Rodríguez is watching is risingPSA. No changes in mentation. The rest of a 10 point review of systems is negative. Health Maintenance addressed. Had flu shot does not need colonoscopy. Past Medical History: Diagnosis Date Acute [place], inferior wall, subsequent episode of care ([facility]) 1994 BPH with obstruction/lower urinary tract symptoms 11/01/2009 CKD (chronic kidney disease) stage 2, GFR 60-89 ml/min Coronary atherosclerosis of wiyot coronary artery 11/30/2001 DM type 2, goal A1c below 7 Elevated PSA 09/30/2017 PSA 7.15 Examination of eyes and vision 09/20/13 no diabetic or hypertensive retinopathy Generalized osteoarthritis HTN, goal below 140/90 Mixed dyslipidemia Multiple pulmonary nodules 03/20/13 Peptic ulcer Renal mass, left 2014 3.8 cm Type 2 diabetes mellitus with hemoglobin A1c goal of less than 8.0% ([facility]) 01/11/2009 Per Diabetes Taxonomy. ICD-10 update of inactive term Past Surgical History: Procedure Laterality Date CABG, ARTERIAL, SINGLE 12/26/2010 CORONARY ARTERY BYPASS GRAFT USING ARTERY 1 GRAFT performed by ISH SENIOR at OR [facility] [place] CABG, ARTERY-VEIN, THREE 12/26/2010 CORONARY ARTERY BYPASS GRAFT ARTERIAL AND VENOUS 3 GRAFTS performed by ISH SENIOR at OR [facility] [place] CORONARY ANGIOGRAPHY W/LEFT HEART CATH 12/03/2010 CORONARY ANGIOGRAPHY W/LEFT HEART CATH performed by BALJINDER HUNG at [facility] [place] CORONARY ANGIOGRAPHY W/LEFT HEART CATH 12/03/2010 Performed by Baljinder Hung MD at [facility] [place] CORONARY ARTERY BYPASS GRAFT ARTERIAL AND VENOUS 3 GRAFTS 12/26/2010 Performed by Ish Senior MD at [facility] CORONARY ARTERY BYPASS GRAFT USING ARTERY 1 GRAFT N/A 12/26/2010 Performed by Ish Senior MD at OR [facility] [place] CT CHEST W CONTRAST 07/11/13 non calcified [...] ENDOSCOPY VIDEO ASSISTED HARVEST VEIN performed by ISH SENIOR at OR [facility] [place] [place] ENDOSCOPY VIDEO ASSISTED HARVEST VEIN 12/26/2010 Performed by Ish Senior MD at OR [facility] INFORMATION 1994 cardiac cath REPAIR INITIAL INGUINAL [...] file Highest education level: Not on file Social Needs Financial resource strain: Not on file Food insecurity - worry: Not on file Food insecurity - inability: Not on file Transportation needs - medical: Not on file Transportation needs - non-medical: Not on file Occupational History Occupation: retired [...] Dispense Refill amLODIPine (NORVASC) 5 MG Tablet TAKE 1 [...] once a day for allergies 30 5 Immunization History Administered Date(s) Administered [...] 6.4 FINAL 07/25/16 8:23A 07/25/16 7.0* FINAL LIPID PANEL WITH DIRECT LDL IF [...] 08/12/17 2:08P 08/12/17 F Value: NOT APPLICABLE PSA-OUTSIDE LAB(NG/ML) Lucía Dt/Tm Resulted Value Status 09/30/17 10/02/17 7.150* FINAL 12/01/16 12/03/16 1.730 FINAL 06/29/14 8:27A 06/29/14 3.46 FINAL O: Blood pressure 122/72, pulse 68, temperature 36.1 C (97 F), temperature source Tympanic, resp. rate 12, weight 64 kg (141 lb). No carotid bruits. Neck is supple without adenopathy or thyromegaly. Chest is symmetrical and movesnormally. The lungs are clear without wheezes, rales, rhonchi or rubs, and the heart is regular without murmurs or gallops, or ectopy. PMI not displaced. No edema A: E11.22, N18.2 Type 2 diabetes mellitus with stage 2 chronic kidney disease, without long-term current use of insulin ([facility]) (primary encounter diagnosis) Plan: Hemoglobin a1c E11.9 Dm type 2 nursing care encounter ([facility]) Plan: Diabetes foot exam I25.10 Atherosclerosis of wiyot coronary artery of wiyot heart without angina pectoris E11.9 Type 2 diabetes mellitus with hemoglobin a1c goal of less than 8.0% ([facility]) M15.9 Generalized osteoarthritis Plan: Meloxicam 7.5 mg po tabs Sig:Take 1 tab by mouth daily. for pain. Follow up: Return in about 6 months (around 08/19/2018). Continue other meds as before. * Janell Stover LPN - 02/18/2018 10:42 AM EST Socks and Shoes Removed for Annual Diabetic Foot Screening RIGHT FOOT: No Reddened, Cracking, Or Open Areas Noted. RIGHT Dorsalis Pedis Pulse: Palpable RIGHT Posterior Tibial Pulse: Palpable RIGHT Monofilament:Patient reports feeling monofilament pressure on plantar surface of foot LEFT FOOT: No Reddened, Cracking or Open Areas Noted. LEFT Dorsalis Pedis Pulse: Palpable LEFT Posterior Tibial Pulse: Palpable LEFT Monofilament: Patient reports feeling monofilament pressure on plantar surface of foot DM Foot Exam completed today. Provider aware. Janell Stover LPN in this encounter Nursing Notes * Janell Stover LPN - 02/18/2018 10:45 AM EST Pt is here for check up , pt is having issue with arthritis , all over in this encounter Plan of Treatment Upcoming Encounters Date Type Specialty Care Team Description 02/18/2018 Office Visit Internal Medicine Smith Orozco MD [address] [place] [address] [place] [id number] Type 2 diabetes mellitus with stage 2 chronic kidney disease, without long-term current use of insulin ([facility])*; DM type 2 nursing care encounter ([facility]); Atherosclerosis of wiyot coronary artery of wiyot heart without angina pectoris; Type 2 diabetes mellitus with hemoglobin A1c goal of less than 8.0% ([facility]); Generalized osteoarthritis 03/18/2018 Office Visit Cardiology Alcon Lott PA-C [address] [facility] [place] [address] [phone] 08/02/2018 Office Visit Dermatology Kim Kong MD [address] [facility] [place] [address] [phone] Scheduled Tests Name Priority Associated Diagnoses Order S chedule HEMOGLOBIN A1C Routine Type 2 diabetes mellitus with stage 2 chronic kidney disease, without long-term current use of insulin (HCC) Expected: 02/18/2018 (Approximate), Expires: 02/18/2019 Health Maintenance Due Date Last Done Comments [...] of this encounter Implants Implanted Type Area Social Work Program Coordinator Device Identifier Shelf Expiration Date Model / Serial / Lot Marker Coronary Amgm-Sd - [id number] Implanted:Qty: 1 on 12/26/2010 N/A: Heart [employer] 10/13/2013 AMGM-SD / / [id number] Sut Steel 6 M654g - [id number] Implanted:Qty: 5 on 12/26/2010 Chest DO NOT USE 10/14/2015 M654G / / [id number] Alonso Pascual 225-241 - [id number] Implanted:Qty: 1 on 12/26/2010 Chest [employer] 225-677 / / [id number] as of this encounter Visit Diagnoses Diagnosis Type 2 diabetes mellitus with stage 2 chronic kidney disease, without long-term current use of insulin (HCC)- Primary DM type 2 nursing care encounter (HCC) Type II or unspecified type diabetes mellitus without mention of complication, not stated as uncontrolled Atherosclerosis of wiyot coronary artery of wiyot heart without angina pectoris Type 2 diabetes mellitus with hemoglobin A1c goal of less than 8.0% (HCC) Generalized osteoarthritis Generalized osteoarthrosis, unspecified site in this encounter Advance Directives Patient has advance care planning documents, and code status on file. For more information, please contact: [place] [phone] Latest Code Status on File Code Status Date Activated Date Inactivated Comments Full Code 12/26/2010 11:49 AM 12/30/2010 3:24 PM Th is order reflects the patients wishes and were consensually agreed upon.
--- OUTSIDE RECORDS SUMMARY | 2022-11-16 13:21 | External Medical Summary | Summary of Care ---
Author Name Unknown Organization [place] [address] Care Team Providers Care Curer Acid Drum Name Role Phone Smith Orozco MD Primary Care Provider + [phone] Reason for Visit * Reason Comments Re-Check Encounter Details Date Type Department Care Team Description 02/18/2018 Office Visit Internal Medicine [address] [address] Smith Orozco MD [address] [place] [address] [facility] [id number] Type 2 diabetes mellitus with stage 2 chronic kidney disease, without long-term current use of insulin ([facility])*; DM type 2 nursing care encounter ([facility]); Atherosclerosis of [place] coronary artery of [place] heart without angina pectoris; Type 2 diabetes mellitus with hemoglobin A1c goal of less than 8.0% ([facility]); Generalized osteoarthritis Allergies Active Allergy Reactions Severity [...] WITH PONDS 45 g 5 03/25/2017 Active [employer] AngelTOUCH ULTRASOFT LANCETS MISCIndications:Type 2 diabetes mellitus with [...] Active glipiZIDE XL (GLUCOTROL XL) 10 MG [id number]:Type 2 diabetes mellitus with hemoglobin A1c goal of less than 8.0% (HCC) TAKE 1 TABLET BY MOUTH TWICE A DAY 180 Tab 1 02/16/2018 Active amLODIPine (NORVASC) 5 MG Tablet TAKE 1 TABLET BY MOUTH TWICE A DAY 180 Tab 1 02/16/2018 Active Terazosin HCl 2 MG CapsuleIndications:Ath erosclerosis of [place] coronary artery of [place] heart without angina pectoris,BPH with obstruction/lower urinary [...] patient at prior appointment. CORONARY ATHEROSCLER. OF [place] CORONARY VESSEL 11/30/2001 GENERAL OSTEOARTHROSIS Multiple pulmonary nodules Complex renal cyst Overview: 3.8 cm; L as of this encounter Resolved Problems Problem Noted Date Resolved Date [employer] Cardio Research Other*[id number] 201004/22/2016 Overview: Study Titile: Genomics Markers for Patients with Cardiovascular Disease Project # [id number] PI: Baljinder Hung MD Please call [phone] with study related questions HTN, goal below [...] calluses yourself. Talk to your doctor or highway engineer (a doctor who specializes in foot care) [...] the area doesnt appear to be healing. [phone] [employer], [address] [place] [address], [place] [address]. All rights reserved. This information is not [...] colonoscopy. Past Medical History: Diagnosis Date Acute [place], inferior wall, subsequent episode of care ([facility]) 1994 BPH with obstruction/lower urinary tract symptoms 11/01/2009 CKD (chronic kidney disease) stage 2, GFR 60-89 ml/min Coronary atherosclerosis of [place] coronary artery 11/30/2001 DM type 2, goal [...] USING ARTERY 1 GRAFT performed by ISH BECKMAN at [place] [facility] [place] CABG, ARTERY-VEIN, THREE 12/26/2010 CORONARY ARTERY BYPASS GRAFT ARTERIAL AND VENOUS 3 GRAFTS performed by ISH BECKMAN at [place] [facility] [place] CORONARY ANGIOGRAPHY W/LEFT HEART CATH 12/03/2010 CORONARY ANGIOGRAPHY W/LEFT HEART CATH performed by BALJINDER HUNG at [facility] CORONARY ANGIOGRAPHY W/LEFT HEART CATH 12/03/2010 Performed by Baljinder Hnug MD at [facility] CORONARY ARTERY BYPASS GRAFT ARTERIAL AND VENOUS 3 GRAFTS 12/26/2010 Performed by Ish Beckman MD at [facility] CORONARY ARTERY BYPASS GRAFT USING ARTERY 1 GRAFT N/A 12/26/2010 Performed by Ish Beckman MD at OR [facility] [place] CHEST W CONTRAST 07/11/13 non calcified [...] VIDEO ASSISTED HARVEST VEIN performed by ISH BECKMAN at [place] [facility] [place] ENDOSCOPY VIDEO ASSISTED HARVEST VEIN 12/26/2010 Performed by Ish Beckman MD at OR [facility] INFORMATION 1994 cardiac cath REPAIR INITIAL INGUINAL [...] disease, without long-term current use of insulin ([facility]) (primary encounter diagnosis) Plan: Hemoglobin a1c E11.9 Dm type 2 nursing care encounter ([facility]) Plan: Diabetes foot exam I25.10 Atherosclerosis of [place] coronary artery of [place] heart without angina pectoris E11.9 Type 2 diabetes mellitus with hemoglobin a1c goal of less than 8.0% ([facility]) M15.9 Generalized osteoarthritis Plan: Meloxicam [...] arthritis , all over in this encounter Miscellaneous Notes * Addendum Note - Jacqueline Trotter PBT - 02/18/2018 11:23 AM EST Addended by: JACQUELINE TROTTER on: 02/18/2018 11:23 AM Modules accepted: Orders in this encounter Plan of Treatment Upcoming Encounters Date Type Specialty Care Team Description 03/18/2018 Office Visit Cardiology Alcon Lott PA-C [address] [place] [address] [place] [address] [phone] 08/02/2018 Office Visit Dermatology Kim Kong MD [address] [place] [address] [phone] Pending Results Name Priority Associated Diagnoses Date/Ti me HEMOGLOBIN A1C Routine Type 2 diabetes mellitus with stage 2 chronic kidney disease, without long-term current use of insulin (HCC) 02/18/2018 11:12 AM EST Scheduled Tests Name Priority Associated Diagnoses Order [...] 03/25/2015, 04/17/2015, Additional history exists *DEPRESSION SCREENING, MARIXAUA Felicia FOR PTS 18 AND OVER 02/01/2018 DIABETES-HGBA1C EVERY 6 MONTHS 02/12/2018 0 08/12/2017, 10/27/2016, 07/25/2016, Additional history exists Yearly B-12 08/12/2018 08/12/2017 DTaP,Tdap,and Td Vaccines (2 - Td) 08/05/20222012, 03/16/2003 PNEUMOCOCCAL ADULT 65 YRS AND OVER Completed 10/16/2015, 12/15/2006, 04/01/2002 Influenza Vaccine (FLU shot) Completed 06/2017, 11/21/2016, 11/27/2015, Additional history exists as of this encounter Implants Implanted Type Area Peer Health Promoter Device Identifier Shelf Expiration Date Model / Serial / Lot Marker Coronary Am-Sd - [id number] Implanted:Qty: 1 on 12/26/2010 N/A: Heart [employer] 10/13/2013 AMGM-SD / / [id number] Sut Steel 6 M654g - [id number] Implanted:Qty: 5 on 12/26/2010 Chest DO NOT USE 10/14/2015 M654G / / [id number] [facility] 225-624 - [id number] Implanted:Qty: 1 on 12/26/2010 Chest [employer] 225-329 / / [id number] as of this encounter Visit Diagnoses Diagnosis Type 2 diabetes mellitus with stage 2 chronic kidney disease, without long-term current use of insulin (HCC)- Primary DM type 2 nursing care encounter (HCC) Type II or unspecified type diabetes mellitus without mention of complication, not stated as uncontrolled Atherosclerosis of [place] coronary artery of [place] heart without angina pectoris Type 2 diabetes mellitus with hemoglobin A1c goal of less than 8.0% (HCC) Generalized osteoarthritis Generalized osteoarthrosis, unspecified site in this encounter Advance Directives Patient has advance care planning documents, and code status on file. For more information, please contact: [place] [phone] Latest Code Status on File Code Status Date Activated Date Inactivated Comments Full Code 12/26/2010 11:49 AM 12/30/2010 3:24 PM Th is order reflects the patients wishes and were consensually agreed upon.
--- OUTSIDE RECORDS SUMMARY | 2022-11-16 13:21 | External Medical Summary ---
Author Name Unknown Address [address] [facility] [place] [phone] Phone Organization K01:[facility] [address] [place] [id number] Laboratory Report Ordering Provider Test Date Status VITOR BRANDT 04/28/2018 09:11:00 Final Observation Date Value Abnormality Reference Status T4, Free 04/28/2018 14:33 1.05 0.9-1.7 Fin al Performing Location [facility] [address] [facility] [address]
--- OUTSIDE RECORDS SUMMARY | 2022-11-16 13:21 | External Medical Summary | Summary of Care ---
Author Name Unknown Organization [place] [address] Care Team Providers Care Director Of Marketing Name Role Phone Smith Danielle MD Primary Care Provider Reason for Visit * Reason Comments eRx-Medication Refill Encounter Details Date Type Department Care Team Description 02/16/2018 Refill Internal Medicine [address] [place] [address] Smith Danielle MD [address] [place] [address] [facility] [id number] Type 2 diabetes mellitus with hemoglobin A1c goal of less than 8.0% (HCC) Allergies Active Allergy Reactions Severity Noted Date [...] TABS one pill each day 0 Active terazosin 2 MG CapsuleIndications :Atherosclerosis of [place] coronary artery of [place] heart without angina pectoris,BPH with obstruction/lower urinary tract symptoms,Essential hypertension with goal blood pressure less than 140/90 Take 1 Cap by mouth at bedtime. 90 Cap 3 03/05/2017 Active tretinoin (RETIN-A) 0.05 % creamIndications:A ctinic [...] 07/30/2017 Active amLODIPine (NORVASC) 5 MG Tablet Take 1 Tab by mouth 2 times a day. 180 Tab 1 09/03/2017 Active finasteride (PROSCAR) 5 MG TabletIndications: BPH [...] Active glipiZIDE XL (GLUCOTROL XL) 10 MG [id number]:Ty pe 2 diabetes mellitus with hemoglobin A1c goal of less than 8.0% (HCC) TAKE 1 TABLET BY MOUTH TWICE A DAY 180 Tab 1 02/16/2018 Active glipiZIDE XL (GLUCOTROL XL) 10 MG [id number]:Ty pe 2 diabetes mellitus with hemoglobin A1c goal of less than 8.0% (HCC) TAKE ONE TABLET BY MOUTH TWICE A DAY 180 Tab 1 11/23/2017 8 Discontinued as of this encounter Active [...] patient at prior appointment. CORONARY ATHEROSCLER. OF [place] CORONARY VESSEL 11/30/2001 GENERAL OSTEOARTHROSIS Multiple pulmonary nodules Complex renal cyst Overview: 3.8 cm; L as of this encounter Resolved Problems Problem Noted Date Resolved Date [employer] Other*[id number] 201004/22/2016 Overview: Study Titile: Genomics Markers for Patients with Cardiovascular Disease Project # [id number] PI: Amalia Kingsley MD Please call [phone] with study related questions HTN, goal below [...] Telephone Encounter - Smith Danielle MD - 02/16/2018 9:36 AM EST Signed Prescriptions: Disp Refills glipiZIDE XL (GLUCOTROL XL) 10 MG TB24 180 Tab1 Sig: TAKE 1 TABLET BY MOUTH TWICE A DAY Authorizing Provider: SMITH DANIELLE * Telephone Encounter - Tracie Suárez, KYLE - 02/16/2018 9:27 AM EST Pending Prescriptions: Disp Refills glipiZIDE XL (GLUCOTROL XL) 10 MG TB24 [P*180 Tab1 Sig: TAKE 1 TABLET BY MOUTH TWICE A DAY * Telephone Encounter - Tracie Suárez, KYLE - 02/16/2018 9:27 AM EST Pending Prescriptions: Disp Refills glipiZIDE XL (GLUCOTROL XL) 10 MG TB24 [P*180 Tab1 Sig: TAKE 1 TABLET BY MOUTH TWICE A DAY Last Office Visit: 08/12/2017 Next Office Visit: 02/18/2018 Scheduled Provider(s): Smith Danielle MD Last date the medication was ordered: 11/23/17 Patient Active Problem List Diagnosis Code GENERAL OSTEOARTHROSIS M15.9 CORONARY ATHEROSCLER. OF [place] CORONARY VESSEL I25.10 ADVANCE DIRECTIVE INFORMATION DM [...] Status 08/12/17 2:08P 08/12/17 1.1 FINAL POTASSIUM(mmol/L) [facility] Dt/Tm Resulted Value Status 08/12/17 2:08P 08/12/17 4.2 FINAL TSH(uIU/mL) [facility] Dt/Tm Resulted Value Status 08/22/13 11:51A 08/22/13 3.86 FINAL LDL (CALCULATED)(mg/dL) [facility] Dt/Tm Resulted Value Status 08/12/17 2:08P 08/12/17 123 FINAL LDL DIRECT(REFLEX)(mg/dL) [facility] Dt/Tm Resulted Value Status 08/12/17 2:08P 08/12/17 FINAL Value: NOT APPLICABLE ALT(U/L) [facility] Dt/Tm Resulted Value Status 07/08/13 7:57A 07/08/13 22 FINAL Hemoglobin AIC Results: HEMOGLOBIN, A1C(%) [facility] Dt/Tm Resulted Value Status 08/12/17 2:08P 08/12/17 7.0* FINAL 10/27/16 9:32A 10/27/16 6.4 FINAL 07/25/16 8:23A 07/25/16 7.0* FINAL in this encounter Plan of Treatment Upcoming Encounters Date Type Specialty Care Team Description 02/18/2018 Office Visit Internal Medicine Smith Danielle MD [address] [place] [address] [place] [address] [phone] 03/18/2018 Office Visit Cardiology Alcon Lott PA-C [address] [facility] [place] [address] [phone] 08/02/2018 Office Visit Dermatology Kim Kong MD [address] [facility] [place] [address] [phone] Health Maintenance Due Date Last Done Comments FOBT ANNUALLY,AGES 18-90 11/18/2013 013, 11/27/2010, 11/22/2009, Additional history exists DIABETES-EYE EXAM 10/09/2016 10/10/2015, , 09/20/2013, Additional history exists DIABETES-FOOT EXAM 01/30/2018 01/30/2017, 1 03/25/2015, 04/17/2015, Additional history exists *DEPRESSION SCREENINGROC FOR PTS 18 AND OVER 02/01/2018 DIABETES-HGBA1C EVERY 6 MONTHS 02/12/2018 0 08/12/2017, 10/27/2016, 07/25/2016, Additional history exists Yearly B-12 08/12/2018 08/12/2017 DTaP,Tdap,and Td Vaccines (2 - Td) 08/05/20222012, 03/16/2003 PNEUMOCOCCAL ADULT 65 YRS AND OVER Completed 10/16/2015, 12/15/2006, 04/01/2002 Influenza Vaccine (FLU shot) Completed 06/2017, 11/21/2016, 11/27/2015, Additional history exists as of this encounter Implants Implanted Type Area Wound/Ostomy Nurse Device Identifier Shelf Expiration Date Model / Serial / Lot Marker Coronary Am-Sd - [id number] Implanted:Qty: 1 on 12/26/2010 N/A: Heart [employer] 10/13/2013 AM-SD / / [id number] Sut Steel 6 M654g - [id number] Implanted:Qty: 5 on 12/26/2010 Chest DO NOT USE 10/14/2015 M654G / / [id number] Alonso Ankur 225-241 - [id number] Implanted:Qty: 1 on 12/26/2010 Chest [employer] 225-241 / / [id number] as of this encounter Visit Diagnoses Diagnosis Type 2 diabetes mellitus with hemoglobin A1c goal of less than 8.0% (HCC) in this encounter Advance Directives Patient has advance care planning documents, and code status on file. For more information, please contact: [place] [phone] Latest Code Status on File Code Status Date Activated Date Inactivated Comments Full Code 12/26/2010 11:49 AM 12/30/2010 3:24 PM Th is order reflects the patients wishes and were consensually agreed upon.
--- OUTSIDE RECORDS SUMMARY | 2022-11-16 13:21 | External Medical Summary | Summary of Care ---
Author Name Unknown Organization [place] [address] Care Team Providers Care Count Room Clerk Name Role Phone Smith Orozco MD Primary Care Provider Encounter Details Date Type Department Care Team Description 04/01/2018 Scan Encounter Unspecified Department <No scans attached> [...] Active glipiZIDE XL (GLUCOTROL XL) 10 MG [id number]:Type 2 diabetes mellitus with hemoglobin A1c goal of less than 8.0% ([facility]) TAKE 1 TABLET BY MOUTH TWICE A DAY 180 Tab 1 02/16/2018 Active amLODIPine (NORVASC) 5 MG Tablet TAKE 1 TABLET BY MOUTH TWICE A DAY 180 Tab 1 02/16/2018 Active Terazosin HCl 2 MG CapsuleIndications:Ath erosclerosis of [place] coronary artery of [place] heart without angina pectoris,BPH with obstruction/lower urinary [...] patient at prior appointment. CORONARY ATHEROSCLER. OF [place] CORONARY VESSEL 11/30/2001 GENERAL OSTEOARTHROSIS Multiple pulmonary nodules Complex renal cyst Overview: 3.8 cm; L as of this encounter Resolved Problems Problem Noted Date Resolved Date [employer] Card[employer] Other*[id number] 201004/22/2016 Overview: Study Titile: Genomics Markers for Patients with Cardiovascular Disease Project # [id number] PI: Amalia Kingsley MD Please call [phone] with study related questions HTN, goal below [...] Team Description 08/03/2018 Cardiac Studies Cardiac Studies [address] [place] [address] 08/03/2018 Imaging Radiology 08/19/2018 Office Visit Internal Medicine Smith Orozco MD [address] [place] [address] [place] [address] [phone] 09/28/2018 Office Visit Cardiology Alcon Lott PA-C [address] [facility] [place] [address] [phone] 10/04/2018 Office Visit Dermatology Kim Kong MD [address] [place] [address] [phone] Health Maintenance Due Date Last Done Comments [...] of this encounter Implants Implanted Type Area Dynamics Ax Solution Architect Device Identifier Shelf Expiration Date Model / Serial / Lot Marker Coronary [facility]-Sd - [id number] Implanted:Qty: 1 on 12/26/2010 N/A: Heart [employer] 10/13/2013 [facility] / / [id number] Sut Steel 6 M654g - [id number] Implanted:Qty: 5 on 12/26/2010 Chest DO NOT USE 10/14/2015 M654G / / [id number] Band [facility] 225-241 - [id number] Implanted:Qty: 1 on 12/26/2010 Chest [employer] 225-241 / / [id number] as of this encounter Advance Directives Patient has advance care planning documents, and code status on file. For more information, please contact: [place] [phone] Latest Code Status on File Code Status Date Activated Date Inactivated Comments Full Code 12/26/2010 11:49 AM 12/30/2010 3:24 PM Th is order reflects the patients wishes and were consensually agreed upon.
--- OUTSIDE RECORDS SUMMARY | 2022-11-16 13:21 | External Medical Summary | Summary of Care ---
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[facility]); Type 2 diabetes mellitus with hemoglobin A1c goal of less than 8.0% ([facility]) Allergies Active Allergy Reactions Severity Noted Date Comments Acetaminophen Renal complications 04/27/2009 Aspirin 08/13/2000 Stomach pain Cholestyramine 08/13/2000 Kidney pain Atorvastatin Calcium 04/28/2007 cramping Niacin Muscle pain 07/22/2007 Simvastatin Hives 08/13/2000 Ezetimibe 04/28/2007 Cramping ankles, turned feet inward documented as of this encounter (statuses as of 04/21/2018) Medications Medication Sig Dispensed Refills Start Date End Date Status GAVI 180 MG PO TABSIndications:All ergic rhinitis One pill by mouth once a day for allergies 30 5 07/23/2009 Active MAGNESIUM OXIDE 200 MG PO TABSIndications:Convalescent Sitter mp in limb one tablet twice a [...] 200 Each 07/30/2017 Active ONETOUCH ULTRA BLUE STRPIndications:Typ e 2 diabetes mellitus with hemoglobin A1c goal of less than 8.0% (HCC) USE TO TEST TWICE A DAY DX: E11.9 200 Strip 5 07/30/2017 Active omeprazole (PRILOSEC) 20 MG CPDRIndications:Pep tic ulcer TAKE ONE CAPSULE BY MOUTH DAILY ONE HOUR PRIOR TO THE FIRST MEAL OF THE DAY 90 Cap 1 12/18/2017 Active glipiZIDE XL (GLUCOTROL XL) 10 MG [id number]:Typ e 2 diabetes mellitus with hemoglobin A1c goal of less than 8.0% (HCC) TAKE 1 TABLET BY MOUTH TWICE A DAY 180 Tab 1 02/16/2018 Active amLODIPine (NORVASC) 5 MG Tablet TAKE 1 TABLET BY MOUTH TWICE A DAY 180 Tab 1 02/16/2018 Active Terazosin HCl 2 MG CapsuleIndications: Atherosclerosis of [place] coronary artery of [place] heart without angina pectoris,BPH with obstruction/lower urinary [...] WITH MEALS 180 Tab 1 04/21/2018 Active MetFORMIN (GLUCOPHAGE) 1000 MG TabletIndications: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),Type 2 diabetes mellitus with hemoglobin A1c goal of less than 8.0% (HCC) TAKE 1 TABLET BY MOUTH TWICE A DAY WITH MEALS 180 Tab 1 10/19/2017 9 Discontinued documented as of this encounter (statuses as of 04/21/2018) Active Problems Problem Noted Date Type 2 [...] patient at prior appointment. CORONARY ATHEROSCLER. OF [place] CORONARY VESSEL 11/30/2001 GENERAL OSTEOARTHROSIS Multiple pulmonary nodules Complex renal cyst Overview: 3.8 cm; L documented as of this encounter (statuses as of 04/21/2018) Resolved Problems Problem Noted Date Resolved Date [employer] Cardio Research Other*[id number] 201004/22/2016 Overview: Study Titile: Genomics Markers for Patients with Cardiovascular Disease Project # [id number] PI: Amalia Kingsley MD Please call [phone] with study related questions HTN, goal below [...] as of this encounter (statuses as of 04/21/2018) Immunizations Name Dates Previously Given Next Due [...] Telephone Encounter - Suzette Danielle MD - 04/21/2018 12:15 PM EST Signed Prescriptions: Disp Refills MetFORMIN (GLUCOPHAGE) 1000 MG Tablet 180 Tab1 Sig: TAKE 1 TABLET BY MOUTH TWICE A DAY WITH MEALS Authorizing Provider: SUZETTE DANIELLE * Telephone Encounter - Kerri Ferreira LPN - 04/21/2018 10:50 AM EST Pending Prescriptions: Disp Refills MetFORMIN (GLUCOPHAGE) 1000 MG Tablet [Ph*180 Tab1 Sig: TAKE 1 TABLET BY MOUTH TWICE A DAY WITH MEALS * Telephone Encounter - Kerri Ferreira LPN - 04/21/2018 10:49 AM EST Pending Prescriptions: Disp Refills MetFORMIN (GLUCOPHAGE) 1000 MG Tablet [Ph*180 Tab1 Sig: TAKE 1 TABLET BY MOUTH TWICE A DAY WITH MEALS Last Office Visit: 02/18/2018 Next Office Visit: 08/19/2018 Scheduled Provider(s): Suzette Danielle MD Last date the medication was ordered: 10/19/17 Patient Active Problem List Diagnosis Code GENERAL OSTEOARTHROSIS M15.9 CORONARY ATHEROSCLER. OF [place] CORONARY VESSEL I25.10 ADVANCE DIRECTIVE INFORMATION DM [...] without long- term current use of insulin ([facility]) E11.22, N18.2 Hx of nonmelanoma skin cancer Z85.828 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 ([facility]) E11.22, I12.9, N18.2 Labs: CREATININE(mg/dL) [facility] Dt/Tm Resulted Value Status 03/18/18 8:29A 03/18/18 1.1 FINAL POTASSIUM(mmol/L) [facility] Dt/Tm Resulted Value Status 03/18/18 8:29A 03/18/18 4.2 FINAL TSH(uIU/mL) [facility] Dt/Tm Resulted Value Status 03/18/18 8:29A 03/18/18 4.73* FINAL LDL (CALCULATED)(mg/dL) [facility] Dt/Tm Resulted Value [...] Team Description 08/03/2018 Cardiac Studies Cardiac Studies [address] [place] [address] [phone] 08/03/2018 Imaging Radiology 08/19/2018 Office Visit Internal Medicine Suzette Danielle MD [address] [place] [address] [place] [address] [phone] 09/28/2018 Office Visit Cardiology Alcon Lott PA-C [address] [facility] [place] [address] 10/04/2018 Office Visit Dermatology Kim Kong MD [address] [place] [address], [place] [address] [phone] Health Maintenance Due Date Last Done Comments [...] of this encounter Implants Implanted Type Area Trimming Machine Set Up Operator Device Identifier Shelf Expiration Date Model / Serial / Lot Marker Coronary Am-Sd - [id number] Implanted:Qty: 1 on 12/26/2010 N/A: Heart [employer] 10/13/2013 [employer]-SD / / [id number] Sut Steel 6 M654g - [id number] Implanted:Qty: 5 on 12/26/2010 Chest DO NOT USE 10/14/2015 M654G / / [id number] Band [facility] 225-241 - [id number] Implanted:Qty: 1 on 12/26/2010 Chest [employer] 225-708 / / [id number] documented as of this encounter Visit Diagnoses Diagnosis Type 2 diabetes mellitus with diabetic nephropathy (HCC) Type II or unspecified type diabetes mellitus with renal manifestations, not stated as uncontrolled Type 2 diabetes mellitus with hemoglobin A1c goal of less than 8.0% (HCC) documented in this encounter Advance Directives Patient has advance care planning documents, and code status on file. For more information, please contact: [place] [phone] Latest Code Status on File Code Status Date Activated Date Inactivated Comments Full Code 12/26/2010 11:49 AM 12/30/2010 3:24 PM Th is order reflects the patients wishes and were consensually agreed upon.
--- OUTSIDE RECORDS SUMMARY | 2022-11-16 13:21 | External Medical Summary | Summary of Care ---
Author Name Unknown Organization [place] [address] Phone Care Team Providers Care Laminating Machine Feeder Name Role Phone Smith Danielle MD Primary Care Provider Reason for Visit * Reason Comments eRx-Medication Refill Encounter Details Date Type Department Care Team Description 12/18/2017 Refill Internal Medicine [address] [address] Smith Danielle MD [address] [place] [address] [place] [address] [phone] PEPTIC ULCER NOS Allergies Active Allergy Reactions Severity Noted Date Comments Acetaminophen Renal complications 04/27/2009 Aspirin 08/13/2000 Stomach pain Cholestyramine 08/13/2000 Kidney pain Atorvastatin Calcium 04/28/2007 cramping Niacin Muscle pain 07/22/2007 Simvastatin Hives 08/13/2000 Ezetimibe 04/28/2007 Cramping ankles, turned feet inward as of this encounter Medications Prescription Sig. Disp. Refills Start Date End Date Status GAVI 180 MG PO TABSIndications:Al lergic rhinitis One pill by mouth once a day for allergies 30 5 07/23/2009 Active MAGNESIUM OXIDE 200 MG PO TABSIndications:Cr amp in limb one tablet twice a day 60 Tab 5 07/16/2010 Active SB LOW DOSE ASA EC 81 MG PO TBEC one tab three times weekly Active MULTI-VITAMIN PO TABS one pill each day Active terazosin 2 MG CapsuleIndications :Atherosclerosis of [place] coronary artery of [place] [...] WITH MEALS 180 Tab 1 10/19/2017 Active glipiZIDE XL (GLUCOTROL XL) 10 MG [id number]:Ty pe 2 diabetes mellitus with hemoglobin A1c goal of less than 8.0% (HCC) TAKE ONE TABLET BY MOUTH TWICE A DAY 180 Tab 1 11/23/2017 Active omeprazole (PRILOSEC) 20 MG CPDRIndications:Pe ptic ulcer TAKE ONE CAPSULE BY MOUTH DAILY ONE HOUR PRIOR TO THE FIRST MEAL OF THE DAY 90 Cap 1 12/18/2017 Active omeprazole (PRILOSEC) 20 MG CPDRIndications:Pe ptic ulcer TAKE ONE CAPSULE BY MOUTH DAILY ONE HOUR PRIOR TO THE FIRST MEAL OF THE DAY 90 Cap 1 07/07/2017 8 Discontinued as of this encounter Active Problems Problem Noted Date Hx of nonmelanoma skin cancer 11/19/2016 Overview: L superior posterior helix SCC 09/2016 Type 2 diabetes mellitus wit h stage 2 chronic kidney disease, without long-term current use of insulin (HCC) 01/24/2016 Hx of actinic keratosis 10/12/2015 Ischemic [...] goal of less than 8.0% ([facility]) 01/11/2009 Overview: Per Diabetes Taxonomy. ICD-10 update of inactive term ADVANCE DIRECTIVE INFORMATION 12/23/2006 Overview: No, Advance Directive brochure given to patient at prior appointment. CORONARY ATHEROSCLER. OF [place] CORONARY VESSEL 11/30/2001 GENERAL OSTEOARTHROSIS Multiple pulmonary nodules Complex renal cyst Overview: 3.8 cm; L as of this encounter Resolved Problems Problem Noted Date Resolved Date [employer] Card[employer] Research Other*[id number] 201004/22/2016 Overview: Study Titile: Genomics Markers for Patients with Cardiovascular Disease Project # [id number] PI: Amalia Kingsley MD Please call [phone] with study related questions HTN, goal below [...] hemoglobin A1c goal of less than 7.0% ([facility]) 01/11/2009 Overview: Per Diabetes Taxonomy. ICD-10 update [...] Assigned at Date Recorded Not on file as of this encounter Miscellaneous Notes * Telephone Encounter - Smith Danielle MD - 12/18/2017 11:38 AM EDT Signed Prescriptions: Disp Refills omeprazole (PRILOSEC) 20 MG CPDR 90 Cap 1 Sig: TAKE ONE CAPSULE BY MOUTH DAILY ONE HOUR PRIOR TO THE FIRST MEAL OF THE DAY Authorizing Provider: SMITH DANIELLE * Telephone Encounter - Tracie Suárez LPN - 12/18/2017 11:00 AM EDT Pending Prescriptions: Disp Refills omeprazole (PRILOSEC) 20 MG CPDR [Pharmac*90 Cap 1 Sig: TAKE ONE CAPSULE BY MOUTH DAILY ONE HOUR PRIOR TO THE FIRST MEAL OF THE DAY * Telephone Encounter - Tracie Suárez LPN - 12/18/2017 11:00 AM EDT Formatting of this note may be different from the original. Pending Prescriptions: Disp Refills omeprazole (PRILOSEC) 20 MG CPDR [Pharmac*90 Cap 1 Sig: TAKE ONE CAPSULE BY MOUTH DAILY ONE HOUR PRIOR TO THE FIRST MEAL OF THE DAY Last Office Visit: 08/12/2017 Next Office Visit: 02/15/2018 Scheduled Provider(s): Smith Danielle MD Last date the medication was ordered: 07/07/17 Patient Active Problem List Diagnosis Code GENERAL OSTEOARTHROSIS M15.9 CORONARY ATHEROSCLER. OF [place] CORONARY VESSEL I25.10 ADVANCE DIRECTIVE INFORMATION DM TYPE 2 CAUSING RENAL DZ E11.29 Type 2 diabetes mellitus with hemoglobin A1c goal of less than 8.0% ([facility]) E11.9 DYSLIPIDEMIA, GOAL LDL BELOW [...] term current use of insulin ([facility]) E11.22, N18.2 Hx of nonmelanoma [...] Encounters Date Type Specialty Care Team Description 01/11/2018 Office Visit Dermatology Kim Kong MD [address] [place] [address] [phone] 02/15/2018 Office Visit Internal Medicine Smith Danielle MD [address] [place] [address] [place] [address] [phone] 03/18/2018 Office Visit Cardiology Alcon Lott PAJennifer [address] [facility] [place] [address] [phone] Health Maintenance Due Date Last Done Comments FOBT ANNUALLY,AGES 18-100 11/18/20132012, 11/27/2010, 11/22/2009, Additional history exists DIABETES-EYE EXAM 10/09/2016 10/10/2015, , 09/20/2013, Additional history exists DIABETES-FOOT EXAM 01/30/2018 01/30/2017, 1 03/25/2015, 04/17/2015, Additional history exists DIABETES-HGBA1C EVERY 6 MONTHS 02/12/2018 0 08/12/2017, 10/27/2016, 07/25/2016, Additional history exists Yearly B-12 08/12/2018 08/12/2017 DTaP,Tdap,and Td Vaccines (2 - Td) 08/05/20222012, 03/16/2003 PNEUMOCOCCAL ADULT 65 YRS AND OVER Completed 10/16/2015, 12/15/2006, 04/01/2002 Influenza Vaccine (FLU shot) Completed 06/2017, 11/21/2016, 11/27/2015, Additional history exists as of this encounter Implants Implanted Type Area System Controller Device Identifier Expiration Date Model / Serial / Lot Marker Coronary Am-Sd - [id number] Implanted:Qty: 1 on 12/26/2010 N/A: Heart [employer] 10/13/2013 [employer]SD / / [id number] Sut Steel 6 M654g - [id number] Implanted:Qty: 5 on 12/26/2010 Chest DO NOT USE 10/14/2015 M654G / / [id number] [facility] 434-968 - [id number] Implanted:Qty: 1 on 12/26/2010 [facility]47-084 / / [id number] as of this encounter Visit Diagnoses Diagnosis PEPTIC ULCER NOS Peptic ulcer, unspecified site, unspecified as acute or chronic, without mention of hemorrhage, perforation, or obstruction in this encounter
--- OUTSIDE RECORDS SUMMARY | 2022-11-16 13:21 | External Medical Summary ---
Author Name Unknown Address [facility] [address] [id number] Phone Organization K01:[facility] [address] [id number] Laboratory Report Ordering Provider Test Date Status VITOR BRANDT 03/18/2018 08:29:00 Final Observation Date Value Abnormality Reference Status TSH 03/18/2018 17:27 4.73 Above high normal 0.27- 4.2 Final T4, Free 03/18/2018 18:02 0.982 0.9-1.7 Fin al Performing Location [facility] [address] [facility] [address]
--- OUTSIDE RECORDS SUMMARY | 2022-11-16 13:21 | External Medical Summary | Summary of Care ---
Author Name Unknown Organization [place] [address] Care Team Providers Care Flower Cheniller Name Role Phone Smith Orozco MD Primary Care Provider [phone] Reason for Visit * Reason Comments Test Results Encounter Details Date Type Department Care Team Description 03/19/2018 Telephone Cardiology, [facility] [address] [place] [address] Alcon Lott PA-C [address] [place] [address] [phone] Test Results Allergies Active Allergy Reactions Severity [...] WITH PONDS 45 g 5 03/25/2017 Active PervacioTOUCH ULTRASOFT LANCETS MISCIndications:Type 2 diabetes mellitus with [...] Active glipiZIDE XL (GLUCOTROL XL) 10 MG [id number]:Type 2 diabetes mellitus with hemoglobin A1c goal of less than 8.0% (HCC) TAKE 1 TABLET BY MOUTH TWICE A DAY 180 Tab 1 02/16/2018 Active amLODIPine (NORVASC) 5 MG Tablet TAKE 1 TABLET BY MOUTH TWICE A DAY 180 Tab 1 02/16/2018 Active Terazosin HCl 2 MG CapsuleIndications:Ath erosclerosis of [place] coronary artery of [place] heart [...] patient at prior appointment. CORONARY ATHEROSCLER. OF [place] CORONARY VESSEL 11/30/2001 GENERAL OSTEOARTHROSIS Multiple pulmonary nodules Complex renal cyst Overview: 3.8 cm; L as of this encounter Resolved Problems Problem Noted Date Resolved Date [employer] Card[employer] Research Other*[id number] 201004/22/2016 Overview: Study Titile: Genomics Markers for Patients with Cardiovascular Disease Project # [id number] PI: Amalia Kingsley MD Please call [phone] with study related questions HTN, goal below [...] encounter Miscellaneous Notes * Telephone Encounter - Caron Mota LPN - 03/19/2018 2:36 PM EST Spoke with patient by phone. Verbalized understanding Agreed to plan of care. Orders placed * Telephone Encounter - Caron Mota LPN - 03/19/2018 2:30 PM EST ----- Message from Alcon Lott PA-C sent at 03/18/2018 6:35 PM EST ----- Random glucose 234 mg/dL Mildly abnormal TSH. Normal free T4. Check TSH & Free T4 in 6 weeks All other labs stable in this encounter Plan of Treatment Upcoming Encounters Date Type Specialty Care Team Description 08/03/2018 Cardiac Studies Cardiac Studies [place] [place] [place] [address] 08/03/2018 Imaging Radiology 08/19/2018 Office Visit Internal Medicine Smith Orozco MD [address] [place] [address] [place] [address] [phone] 09/28/2018 Office Visit Cardiology Alcon Lott PA-C 132 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) Expected: 04/30/2018 (Approximate), Expires: 04/19/2019 T4, FREE Routine 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) Expected: 04/30/2018 (Approximate), Expires: 04/19/2019 Health Maintenance Due Date Last Done Comments [...] of this encounter Implants Implanted Type Area Special Effects Artist Device Identifier Shelf Expiration Date Model / Serial / Lot Marker Coronary Am-Sd - [id number] Implanted:Qty: 1 on 12/26/2010 N/A: Heart [employer] 10/13/2013 [facility] / / [id number] Sut Steel 6 M654g - [id number] Implanted:Qty: 5 on 12/26/2010 Chest DO NOT USE 10/14/2015 M654G / / [id number] Band Ankur 225-241 - [id number] Implanted:Qty: 1 on 12/26/2010 Chest [employer] 225-241 / / [id number] as of this encounter Visit Diagnoses Diagnosis 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)- Primary in this encounter Advance Directives Patient has advance care planning documents, and code status on file. For more information, please contact: [place] [address] Latest Code Status on File Code Status Date Activated Date Inactivated Comments Full Code 12/26/2010 11:49 AM 12/30/2010 3:24 PM Th is order reflects the patients wishes and were consensually agreed upon.
--- OUTSIDE RECORDS SUMMARY | 2022-11-16 13:21 | External Medical Summary ---
Author Name Unknown Address [address] [facility] [place] [address] Phone Organization K01:[facility] [address] [place] [address] Laboratory Report Ordering Provider Test Date Status VITOR BRANDT 03/18/2018 08:29:00 Final Observation Date Value Abnormality Reference Status WBC, Total 03/18/2018 15:00 4.13 4.00-10.80 F inal RBC 03/18/2018 15:00 4.21 Below low normal 4.50-5 .25 Final Hemoglobin 03/18/2018 15:00 14.1 14.0-16.8 Fi nal HCT 03/18/2018 15:00 40.5 40.0-48.4 Fin al MCV 03/18/2018 15:00 96.2 82.0-99.5 Fin al MCH 03/18/2018 15:00 33.5 27.0-34.0 Fin al MCHC 03/18/2018 15:00 34.8 32.0-36.0 Fin al RDW 03/18/2018 15:00 12.2 11.5-15.5 Fin al Platelets 03/18/2018 15:00 168 140-400 Fin al MPV 03/18/2018 15:00 10.0 6.6-11.1 Fin al Performing Location [facility] [address] [facility] [place] [address]
--- OUTSIDE RECORDS SUMMARY | 2022-11-16 13:21 | External Medical Summary ---
Author Name Unknown Address [facility] [address] [facility] [place] [address] Phone Organization K01:[facility] [address] [facility] [place] [address] Laboratory Report Ordering Provider Test Date Status VITOR BRANDT 04/28/2018 09:11:00 Final Observation Date Value Abnormality Reference Status TSH 04/28/2018 14:33 3.81 0.27-4.2 Fin al Performing Location [address] [address]
--- OUTSIDE RECORDS SUMMARY | 2022-11-16 13:22 | External Medical Summary | Summary of Care ---
Author Name Unknown Organization [place] [address] Phone Care Team Providers Care Nut Former Name Role Phone Smith Danielle MD Primary Care Provider [phone] Reason for Visit * Reason Comments eRx-Medication Refill Encounter Details Date Type Department Care Team Description 09/21/2017 Refill Internal Medicine [address] [address] Smith Danielle MD [address] [place] [address] [place] [address] [phone] BPH with obstruction/lower urinary tract symptoms*;HTN, goal below 140/80 Allergies Active Allergy Reactions [...] Active terazosin 2 MG CapsuleIndications :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 90 Cap 3 03/05/2017 Active tretinoin (RETIN-A) 0.05 % creamIndications:A ctinic keratosis APPLY NIGHTLY TO FACE DIRECTED,CAN MIX WITH PONDS 45 g 5 03/25/2017 Active MetFORMIN (GLUCOPHAGE) 1000 MG TabletIndications: Type 2 diabetes mellitus with diabetic nephropathy (HCC),Type 2 diabetes mellitus with hemoglobin A1c goal of less than 8.0% (HCC) TAKE 1 TABLET BY MOUTH TWICE A DAY WITH MEALS 180 Tab 1 04/17/2017 Active glipiZIDE XL (GLUCOTROL XL) 10 MG [id number]:Ty pe 2 diabetes mellitus with hemoglobin A1c goal of less than 8.0% (HCC) TAKE 1 TABLET BY MOUTH 2 TIMES A DAY 180 Tab 1 06/01/2017 Active omeprazole (PRILOSEC) 20 MG CPDRIndications:Pe ptic ulcer TAKE ONE CAPSULE BY MOUTH DAILY ONE HOUR PRIOR TO THE FIRST MEAL OF THE DAY 90 Cap 1 07/07/2017 Active ONETOUCH ULTRASOFT LANCETS MISCIndications:Ty pe 2 [...] A DAY 180 Tab 1 09/22/2017 Active losartan (COZAAR) 50 MG TabletIndications: HTN, goal below 140/80 TAKE ONE TABLET BY MOUTH TWICE A DAY 180 Tab 3 09/29/2016 8 Discontinued finasteride (PROSCAR) 5 MG Tablet TAKE 1 TABLET BY MOUTH DAILY. 90 Tab 1 03/30/2017 8 Discontinued as of this encounter Active [...] 8.0% ([facility]) 01/11/2009 Overview: Per Diabetes Taxonomy. ICD-10 update of inactive term ADVANCE DIRECTIVE INFORMATION 12/23/2006 Overview: No, Advance Directive brochure given to patient at prior appointment. CORONARY ATHEROSCLER. OF [place] CORONARY VESSEL 11/30/2001 GENERAL OSTEOARTHROSIS Multiple pulmonary nodules Complex renal cyst Overview: 3.8 cm; L as of this encounter Resolved Problems Problem Noted Date Resolved Date Gen[employer] Cardio Research Other*[id number] 201004/22/2016 Overview: Study Titile: Genomics Markers for Patients with Cardiovascular Disease Project # [id number] PI: Amalia Kingsley MD Please call [phone] with study related questions HTN, goal below [...] hemoglobin A1c goal of less than 7.0% ([facility]) 01/11/2009 Overview: Per Diabetes Taxonomy. ICD-10 update of inactive term CKD (chronic kidney disease) stage 2, GFR 60-89 ml/min 06/26/2017 as of this encounter Immunizations Name Dates Previously Given Next Due Pneumococcal Conjugate Vacc, 13 Valent (Prevnar) 10/16/2015 Pneumococcal Polyvalent Vacc (Pneumovax) 12/15/2006,04/01/2002 Seasonal Influenza, Quadriva lent, No Preserve, IM 11/21/2016,11/27/2015 Seasonal Influenza, Trivalen t, with Preserve, 3yr & Above, Split 12/04/2014,11/23/2013,12/07/2012,01/2012,11/20/2010,12/13/2009,2008,01/04/2008,12/15/2006, 6,01/10/2005,12/25/2003,12/29/2002,1 03/21/2001,01/05/2001 01/19/2003 TD - Tetanus/Diptheria (ADULT) 03/16/2003 TDAP [...] Telephone Encounter - Smith Danielle MD - 09/22/2017 9:50 AM EDT Signed Prescriptions: Disp Refillsfinasteride (PROSCAR) 5 MG Tablet 90 Tab 1 Sig: TAKE 1 TABLET BY MOUTH DAILY.Authorizing Provider: SMITH DANIELLE losartan (COZAAR) 50 MG Tablet 180 Wcr0Mgw: TAKE ONE TABLET BY MOUTH TWICE A DAY Authorizing Provider: SMITH DANIELLE * Telephone Encounter - Selam Vickers, KYLE - 09/22/2017 8:46 AM EDT Pending Prescriptions: Disp Refills finasteride (PROSCAR) 5 MG Tablet [Pharma*90 Tab 3 Sig: TAKE 1 TABLET BY MOUTH DAILY. losartan (COZAAR) 50 MG Tablet [Pharmacy *180 Tab3 Sig: TAKE ONE TABLET BY MOUTH TWICE A DAY * Telephone Encounter - Selam Vickers, KYLE - 09/22/2017 8:45 AM EDT Pending Prescriptions: Disp Refills finasteride (PROSCAR) 5 MG Tablet [Pharma*90 Tab 3 Sig: TAKE 1 TABLET BY MOUTH DAILY. losartan (COZAAR) 50 MG Tablet [Pharmacy *180 Tab3 Sig: TAKE ONE TABLET BY MOUTH TWICE A DAY Last Office Visit: 08/12/2017 Next Office Visit: 02/15/2018 Scheduled Provider(s): Smith Danielle MD lr 03-30-17 and 09-29-16 in this encounter Plan of Treatment Upcoming Encounters Date Type Specialty Care Team Description 01/11/2018 Office Visit Dermatology Kim Kong MD [address] [place] [address], [place] [address] [phone] 02/15/2018 Office Visit Internal Medicine Smith Danielle MD [address] [place] [address] [place] [address] [phone] 03/18/2018 Office Visit Cardiology Alcon Lott PA-C 132 [facility] [place] [address] Health Maintenance Due Date Last Done Comments FOBT ANNUALLY,AGES 18-100 11/18/20132012, 11/27/2010, 11/22/2009, Additional history exists DIABETES-EYE EXAM 10/09/2016 10/10/2015, , 09/20/2013, Additional history exists Influenza Vaccine (FLU shot) (#1) 2017 11/21/2016, 11/27/2015, 12/04/2014, Additional history exists DIABETES-FOOT EXAM 01/30/2018 01/30/2017, 1 03/25/2015, 04/17/2015, Additional history exists DIABETES-HGBA1C EVERY 6 MONTHS 02/12/2018 0 08/12/2017, 10/27/2016, 07/25/2016, Additional history exists DIABETES-LDL EVERY 12 MONTHS 08/12/2018, 07/25/2016, 02/14/2015, Additional history exists DIABETES-URINE MICROALBUMIN EVERY 12 MONTHS 08/12/2018 08/12/2017, 10/27/2016, 09/18/2016, Additional history exists Yearly B-12 08/12/2018 08/12/2017 DTaP,Tdap,and Td Vaccines (2 - Td) 08/05/20222012, 03/16/2003 PNEUMOCOCCAL ADULT 65 YRS AND OVER Completed 10/16/2015, 12/15/2006, 04/01/2002 as of this encounter Implants Implanted Type Area Washtub Worker Device Identifier Expiration Date Model / Serial / Lot Marker Coronary Am-Sd - [id number] Implanted:Qty: 1 on 12/26/2010 N/A: Heart [employer] 10/13/2013 [employer] / / [id number] Sut Steel 6 M654g - [id number] Implanted:Qty: 5 on 12/26/2010 Chest DO NOT USE 10/14/2015 M654G / / [id number] [facility] 225-241 - [id number] Implanted:Qty: 1 on 12/26/2010 Chest [employer] 225-590 / / [id number] as of this encounter Visit Diagnoses Diagnosis BPH with obstruction/lower u rinary tract symptoms - Primary Hypertrophy of prostate with urinary obstruction and other lower urinary tract symptoms (LUTS) HTN, goal below 140/80 Unspecified essential hypertension in this encounter
--- OUTSIDE RECORDS SUMMARY | 2022-11-16 13:22 | External Medical Summary ---
Author Name Unknown Address [address] [place] [address] [place] [address] Phone Organization K08:[address] [place] [address] Laboratory Report Ordering Provider Test Date Status LOLIS BRADFORD 08/12/2017 14:08:00 Final Observation Date Value Abnormality Reference Status Fasting status - Reported 08/12/2017 14:16 PATIENT NOT FASTING Final Triglyceride 08/12/2017 22:22 143 <200 Final Performing Location [address] [place] [address]
--- OUTSIDE RECORDS SUMMARY | 2022-11-16 13:22 | External Medical Summary ---
Author Name Unknown Address [address] [place] [id number] Phone Organization K01:[facility] [address] [place] [id number] Laboratory Report Ordering Provider Test Date Status LOLIS BRADFORD 08/12/2017 14:08:00 Final Observation Date Value Abnormality Reference Status BUN 08/12/2017 22:22 33 Above high normal 6-20 Final Creatinine 08/12/2017 22:22 1.1 0.6-1.2 Fi nal Performing Location [facility] [address] [facility] [address]
--- OUTSIDE RECORDS SUMMARY | 2022-11-16 13:22 | External Medical Summary | Summary of Care ---
Author Name Unknown Organization [place] [address] Phone Care Team Providers Care Gold Tooler Name Role Phone Smith Orozco MD Primary Care Provider [phone] Reason for Visit * Reason Comments MEDICATION ADMINISTRATION Flu and/or Pne umo Inj Encounter Details Date Type Department Care Team Description 11/17/2017 Immunization/In jection Ancillary [address] [place] [address] [place] [address] [place] [address] [phone] Need for prophylactic vaccination and inoculation against [...] pill each day Active terazosin 2 MG CapsuleIndications:At herosclerosis of [place] coronary artery of [place] heart without angina pectoris,BPH with obstruction/lower urinary tract symptoms,Essential hypertension with goal blood pressure less than 140/90 Take 1 Cap by mouth at bedtime. 90 Cap 3 03/05/2017 Active tretinoin (RETIN-A) 0.05 % creamIndications:Acti rene keratosis APPLY NIGHTLY TO FACE DIRECTED,CAN MIX WITH PONDS 45 g 5 03/25/2017 Active glipiZIDE XL (GLUCOTROL XL) 10 MG [id number]:Type 2 diabetes mellitus with hemoglobin A1c goal of less than 8.0% (HCC) TAKE 1 TABLET BY MOUTH 2 TIMES A DAY 180 Tab 1 06/01/2017 Active omeprazole (PRILOSEC) 20 MG CPDRIndications:Pepti c ulcer TAKE ONE CAPSULE BY MOUTH DAILY ONE HOUR PRIOR TO THE FIRST MEAL OF THE DAY 90 Cap 1 07/07/2017 Active ONETOUCH ULTRASOFT LANCETS MISCIndications:Type 2 diabetes [...] 1 09/03/2017 Active finasteride (PROSCAR) 5 MG TabletIndications:BPH with obstruction/lower urinary tract symptoms TAKE 1 TABLET BY MOUTH DAILY. 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 ICD-10 update of inactive term ADVANCE DIRECTIVE INFORMATION 12/23/2006 Overview: No, Advance Directive brochure given to patient at prior appointment. CORONARY ATHEROSCLER. OF [place] CORONARY VESSEL 11/30/2001 GENERAL OSTEOARTHROSIS Multiple pulmonary nodules Complex renal cyst Overview: 3.8 cm; L as of this encounter Resolved Problems Problem Noted Date Resolved Date [employer] Cardio Research Other*[id number] 201004/22/2016 Overview: Study Titile: Genomics Markers for Patients with Cardiovascular Disease Project # [id number] PI: Amalia Kingsley MD Please call [phone] with study related questions HTN, goal below 130/80 04/15/2010 2 Overview: Per HTN Protocol #27. Actinic keratosis 04/27/2009 10/12/2015 DIAB RENAL MANIF ADULT 10/06/2007 9 Overview: Per Diabetes Taxonomy. Added per DM w/ renal complications protocol #4 Seborrheic dermatitis 01/24/2002 10/12/2015 Solar lentigo 10/27/2001 04/30/2016 ACUTE MO; INFERIOR WALL;SUBSEQUENT EPISODE CARE 06/21/2013 HYPERTENSION NOS 02/06/2009 Overview: Modified per HTN protocol #16. Mixed dyslipidemia 02/22/2009 Overview: Per Lipid Taxonomy. Peptic ulcer 08/12/2017 Type 2 diabetes mellitus wit h hemoglobin A1c goal of less than 7.0% ([facility]) 01/11/2009 Overview: Per Diabetes Taxonomy. [...] Not on file as of this encounter Progress Notes * Janell Stover LPN - 11/17/2017 9:54 AM EDT PRE - ADMINISTRATION DOCUMENTATION Are you allergic to latex? No Are you experiencing any cold symptoms or fever? No Have you had Guillain-Dresden Syndrome (an illness that causes paralysis)? No Have you had the flu shot in the past? YES Have you ever had a reaction to the flu shot? No Janell Stover LPN, 11/17/2017 9:54 AM Immunization Administration Documentation Time Out Procedure Performed: Yes Patient Identified (Ask Name/Date of ): Yes Does the patient have a fever greater than 101 degrees today? No Patient allergic to latex? No VFC Stock: No Immunization(s) verified: Yes, Immunization Name: Flu, VIS Sheet(s) given: Yes Verified Side and Site: Yes Verified Shot(s) with Parent(s)/Patient: Yes in this encounter Plan of Treatment Upcoming Encounters Date Type Specialty Care Team Description 01/11/2018 Office Visit Dermatology Kim Kong MD [address] [place] [address] [phone] 02/15/2018 Office Visit Internal Medicine Smith Orozco MD [address] [place] [address] [place] [address] [phone] 03/18/2018 Office Visit Cardiology Alcon Lott PA-C [address] [facility] [place] [address] [phone] Health Maintenance Due Date Last Done Comments Zoster Vaccines HMT (2 of 3) 01/10/2012 11/15/2011 FOBT ANNUALLY,AGES 18-100 11/18/20132012, 11/27/2010, 11/22/2009, Additional history exists DIABETES-EYE EXAM 10/09/2016 10/10/2015, , 09/20/2013, Additional history exists Influenza Vaccine (FLU shot) (#1) 2017 11/21/2016, 11/27/2015, 12/04/2014, Additional history exists DIABETES-FOOT EXAM 01/30/2018 01/30/2017, 1 03/25/2015, 04/17/2015, Additional history exists DIABETES-HGBA1C EVERY 6 MONTHS 02/12/2018 0 08/12/2017, 10/27/2016, 07/25/2016, Additional history exists DIABETES-LDL EVERY 12 MONTHS 08/12/2018, 07/25/2016, 02/14/2015, Additional history exists Yearly B-12 08/12/2018 08/12/2017 DTaP,Tdap,and Td Vaccines (2 - Td) 08/05/20222012, 03/16/2003 PNEUMOCOCCAL ADULT 65 YRS AND OVER Completed 10/16/2015, 12/15/2006, 04/01/2002 as of this encounter Implants Implanted Type Area Shipping Inspector Device Identifier Expiration Date Model / Serial / Lot Marker Coronary Am-Sd - [id number] Implanted:Qty: 1 on 12/26/2010 N/A: Heart [employer] 10/13/2013 [employer] / / [id number] Sut Steel 6 M654g - [id number] Implanted:Qty: 5 on 12/26/2010 Chest DO NOT USE 10/14/2015 M654G / / [id number] [facility] 225-241 - [id number] Implanted:Qty: 1 on 12/26/2010 Chest [employer] 225-288 / / [id number] as of this encounter Visit Diagnoses Diagnosis Need for prophylactic vaccin ation and inoculation against influenza - Primary in this encounter
--- OUTSIDE RECORDS SUMMARY | 2022-11-16 13:22 | External Medical Summary ---
Author Name Unknown Address [address] [facility] [place] [address] Phone Organization K01:[facility] [address] [place] [id number] Laboratory Report Ordering Provider Test Date Status LOLIS BRADFORD 08/12/2017 14:08:00 Final Observation Date Value Abnormality Reference Status Albumin, Urine 08/12/2017 22:17 24.99 Final Creatinine [Moles/volume] in Urine 08/12/2017 22:17 103 Final Microalbumin / Creatinine Ratio 08/12/2017 22:17 243 Above high normal <30 Final Performing Location [facility] [address] [facility] [address]
--- OUTSIDE RECORDS SUMMARY | 2022-11-16 13:22 | External Medical Summary | Summary of Care ---
Author Name Unknown Organization [place] [address] Phone Care Team Providers Care Shroud Line Tier Name Role Phone Smith Orozco MD Primary Care Provider [phone] Reason for Referral * Evaluate & Treat - Unlimited Visits (Within 10 days (routine)) Status Reason Specialty Diagnoses / Procedures Referred By Contact Referred To Contact Authorized Specialty Services Required Optometry Diagnoses DM type 2 nursing care encounter (HCC) Smith Orozco MD [address] [place] [address] [place] [address] Reason for Visit * Reason Comments STATUS CHECK Encounter Details Date Type Department Care Team Description 08/12/2017 Office Visit Internal Medicine [address] [address] Smith Orozco MD [address] [place] [address] [place] [address] [phone] Type 2 diabetes mellitus with stage 2 chronic kidney disease, without long-term current use of insulin ([facility])*;DM type 2 nursing care encounter ([facility]);Atherosclerosis of [place] coronary artery of [place] heart without angina pectoris;Type 2 diabetes mellitus with hemoglobin A1c goal of less than 8.0% (HCC);Essential hypertension with goal blood pressure less than 140/90;Encounter for long-term (current) drug use Allergies Active Allergy Reactions Severity Noted Date [...] PO TABS one pill each day Active losartan (COZAAR) 50 MG TabletIndications:HTN , goal below 140/80 TAKE ONE TABLET BY MOUTH TWICE A DAY 180 Tab 3 09/29/2016 Active terazosin 2 MG CapsuleIndications:At herosclerosis of [place] coronary artery of [place] heart without angina pectoris,BPH with obstruction/lower urinary tract symptoms,Essential hypertension with goal blood pressure less than 140/90 Take 1 Cap by mouth at bedtime. 90 Cap 3 03/05/2017 Active tretinoin (RETIN-A) 0.05 % creamIndications:Acti rene keratosis APPLY NIGHTLY TO FACE DIRECTED,CAN MIX WITH PONDS 45 g 5 03/25/2017 Active finasteride (PROSCAR) 5 MG Tablet TAKE 1 TABLET BY MOUTH DAILY. 90 Tab 1 03/30/2017 Active amLODIPine (NORVASC) 5 MG TabletIndications:HTN , goal below 140/80 Take 1 Tab by mouth daily. 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 ICD-10 update of inactive term ADVANCE DIRECTIVE INFORMATION 12/23/2006 Overview: No, Advance Directive brochure given to patient at prior appointment. CORONARY ATHEROSCLER. OF [place] CORONARY VESSEL 11/30/2001 GENERAL OSTEOARTHROSIS Multiple pulmonary nodules Complex renal cyst Overview: 3.8 cm; L as of this encounter Resolved Problems Problem Noted Date Resolved Date [employer] Other*[id number] 201004/22/2016 Overview: Study Titile: Gen[employer] Markers for Patients with Cardiovascular Disease Project # [id number] PI: Baljinder Hung MD Please call [phone] with study related questions HTN, goal below [...] hemoglobin A1c goal of less than 7.0% (HCC) 01/11/2009 Overview: Per Diabetes Taxonomy. ICD-10 update [...] Not on file as of this encounter Last Filed Vital Signs Vital Sign Reading Time Taken Blood Pressure 128/62 08/12/2017 1:41 PM EDT Pulse 64 08/12/2017 1:41 PM EDT Temperature 35.8 C (96.5 F) 08/12/2017 1 :41 PM EDT Respiratory Rate 12 08/12/2017 1:41 PM EDT Oxygen Saturation - - Inhaled Oxygen Concentration - - Weight 63.5 kg (140 lb) 08/12/2017 1:41 PM EDT Height 165.1 cm (5' 5") 08/12/2017 1:41 PM EDT Body Mass Index 23.3 08/12/2017 1:41 PM EDT in this encounter Instructions * Patient Instructions - Yohana Alcantara RN - 08/12/2017 1:43 PM EDT Dear Cl Reynolds, The care of your Diabetes is very important to us. A yearly diabetic eye exam is important to protect your vision. Please tell your Eye Doctor to fax or mail us the results of your Diabetic Eye Exam at your next visit. Our Address and Fax Number are listed below to help. Thank you for helping us to improve your Diabetes Care Our Office Address and Fax Number: Smith Orozco MD [facility] Internal Medicine [place] [address] in this encounter Progress Notes * Smith Orozco MD - 08/12/2017 1:54 PM EDT Formatting of this note may be different from the original. No complaints of headache, trouble with vision or hearing. Eating well, with no bowel or bladder complaints. Denies chest pain or palpitations. Denies shortness of breath, PND, or orthopnea. No skin rashes or breakdown. He is very busy outside, now that it is warmer outside. No changes in mentation. The rest of a 10 point review of systems is negative. Past Medical History: Diagnosis Date Acute [place], inferior wall, subsequent episode of care (HCC) 1994 BPH with obstruction/lower urinary tract symptoms 11/01/2009 CKD (chronic kidney disease) stage 2, GFR 60-89 ml/min Coronary atherosclerosis of [place] coronary artery 11/30/2001 DM type 2, goal A1c below 7 Examination of eyes and vision 09/20/13 no [...] [place] [facility] [place], ARTERY-VEIN, THREE 12/26/2010 CORONARY ARTERY BYPASS GRAFT ARTERIAL AND VENOUS 3 GRAFTS performed [place]ERTHA SENIOR [place] [facility] [place]ONARY ANGIOGRAPHY W/LEFT HEART CATH 12/03/2010 CORONARY ANGIOGRAPHY W/LEFT HEART CATH performed by BALJINDER HUNG at [place] [facility] [place]ST [...] VEIN performed by BERTHA SENIOR [place] [facility] [place] IN[place] 1994 cardiac cath [...] Cramping ankles, turned feet inward Social History Social History Marital status: Spouse name: Grisel Number of children: 2 Years of education: N/A 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 Social History Main Topics Smoking status: Former Smoker Years: 0.00 Smokeless tobacco: Never Used Comment: quit in 1971 Alcohol use Yes Comment: rarely Drug use: No Sexual activity: Not on file Other Topics Concern Not on file Social History Narrative Current Outpatient Prescriptions Medication Sig Dispense Refill amLODIPine (NORVASC) 5 MG Tablet Take 1 Tab by mouth daily. 90 Tab 1 finasteride (PROSCAR) 5 MG Tablet TAKE 1 TABLET BY MOUTH DAILY. 90 Tab 1 glipiZIDE XL (GLUCOTROL XL) 10 MG TB24 TAKE 1 TABLET BY MOUTH 2 TIMES A DAY 180 Tab 1 losartan (COZAAR) 50 MG Tablet TAKE ONE TABLET BY MOUTH TWICE A DAY 180 Tab 3 MAGNESIUM OXIDE 200 MG PO TABS one tablet twice a day 60 Tab 5 MetFORMIN (GLUCOPHAGE) 1000 MG Tablet TAKE 1 TABLET BY MOUTH TWICE A DAY WITH MEALS 180 Tab 1 MULTI-VITAMIN PO TABS one pill each day omeprazole (PRILOSEC) 20 MG CPDR TAKE ONE CAPSULE BY MOUTH DAILY ONE HOUR PRIOR TO THE FIRST MEAL OF THE DAY 90 Cap 1 ONETOUCH ULTRA BLUE STRP USE TO TEST TWICE A DAY DX: E11.9 200 Strip 5 ONETOUCH ULTRASOFT LANCETS MISC USE TO TEST DIRECTED 2 TIMES A DAY. 200 Each 5 SB LOW DOSE ASA EC 81 MG PO TBEC one tab three times weekly terazosin 2 MG Capsule Take 1 Cap by mouth at bedtime. 90 Cap 3 tretinoin (RETIN-A) 0.05 % cream APPLY NIGHTLY TO FACE DIRECTED,CAN MIX WITH PONDS 45 g 5 GAVI 180 MG PO TABS One pill by mouth once a day for allergies 30 5 Immunization History Administered Date(s) Administered Pneumococcal Conjugate Vacc, 13 Valent (Prevnar) 10/16/2015 Pneumococcal Polyvalent Vacc (Pneumovax) 04/01/2002, 12/15/2006 Seasonal Influenza, Quadrivalent, No Preserve, IM 11/27/2015, 11/21/2016 Seasonal Influenza, Trivalent, with Preserve, 3yr & Above, Split 01/05/2001, 01/19/2002, 12/29/2002, 12/25/2003, 01/10/2005, 12/23/2005, 12/15/2006, 01/04/2008, 01/10/2009, 12/13/2009, 11/20/2010, 11/25/2011, 12/07/2012, 11/23/2013, 12/04/2014 TD - Tetanus/Diptheria (ADULT) 03/16/2003 TDAP (age 10 and older)(Boostrix) 08/05/2012 Varicella Zoster Vaccine (Adult) 11/15/2011 HEMOGLOBIN, A1C(%) [facility] Dt/Tm Resulted Value Status 10/27/16 9:32A 10/27/16 6.4 FINAL 07/25/16 8:23A 07/25/16 7.0* FINAL 01/24/16 9:17A 01/24/16 6.6* FINAL LIPID PANEL WITH DIRECT LDL IF TG ABOVE 400 MG/DL [facility] Dt/Tm Resulted Value Status HOURS FASTING (hours) 07/25/16 8:23A 07/25/16 F Value: PATIENT NOT FASTING TRIGLYCERIDES (mg/dL) 07/25/16 8:23A 07/25/16 147 F CHOLESTEROL (mg/dL) 07/25/16 8:23A 07/25/16 229* F HDL (mg/dL) 07/25/16 8:23A 07/25/16 57 F CHOL/HDL RATIO ( ) 07/25/16 8:23A 07/25/16 4.0 F LDL (CALCULATED) (mg/dL) 07/25/16 8:23A 07/25/16 143* F LDL DIRECT(REFLEX) (mg/dL) 07/25/16 8:23A 07/25/16 F Value: NOT APPLICABLE O: Blood pressure 128/62, pulse 64, temperature 35.8 C (96.5 F), resp. rate 12, height 1.651 m (5' 5"), weight 63.5 kg (140 lb). General appearance: well developed, well nourished [...] edema. No skin rashes. Extremities unremarkable. A: E11.22, N18.2 Type 2 diabetes mellitus with stage 2 chronic kidney disease, without long-term current use of insulin ([facility]) (primary encounter diagnosis) Plan: Hemoglobin a1c Lipid panel with direct ldl if tg above 400 mg/dl Basic metab panel, bmp Albumin / creatinine ratio, urine Hemoglobin a1c Lipid panel with direct ldl if tg above 400 mg/dl Basic metab panel, bmp Albumin / creatinine ratio, urine E11.9 Dm type 2 nursing care encounter ([facility]) Plan: Optometry (diabetes-extended) referral op I25.10 Atherosclerosis of [place] coronary artery of [place] heart without angina pectoris E11.9 Type 2 diabetes mellitus with hemoglobin a1c goal of less than 8.0% ([facility]) I10 Essential hypertension with goal blood pressure less than 140/90 Plan: Basic metab panel, bmp Basic metab panel, bmp Z79.899 Encounter for long-term (current) drug use Plan: Vitamin b12 Vitamin b12 Follow up: Return in about 6 months (around 02/12/2018). Continue other meds as before. * Yohana Alcantara RN - 08/12/2017 1:43 PM EDT The importance of having a yearly diabetic eye exam has been discussed with patient. Order and Referral placed along with patient instructions. Provider made aware. Yohana Alcantara RN in this encounter Nursing Notes * Yohana Alcantara RN - 08/12/2017 1:41 PM EDT 6 month check. in this encounter Plan of Treatment Upcoming Encounters Date Type Specialty Care Team Description 09/03/2017 Office Visit Cardiology Alcon Lott PA-C [address] [facility] [place] [address] [phone] 01/11/2018 Office Visit Dermatology Kim Kong MD [address] [place] [address] [place] [address] [phone] Pending Results Name Priority Associated Diagnoses Date/Ti me VITAMIN B12 Routine Encounter for long-term (current) drug use 08/12/2017 2:08 PM EDT HEMOGLOBIN A1C Routine Type 2 diabetes mellitus with stage 2 chronic kidney disease, without long-term current use of insulin (HCC) 08/12/2017 2:08 PM EDT LIPID PANEL WITH DIRECT LDL IF TG ABOVE 400 MG/DL Routine Type 2 diabetes mellitus with stage 2 chronic kidney disease, without long-term current use of insulin (HCC) 08/12/2017 2:08 PM EDT BASIC METAB PANEL, BMP Routine Type 2 diabetes mellitus with stage 2 chronic kidney disease, without long-term current use of insulin (HCC) Essential hypertension with goal blood pressure less than 140/90 08/12/2017 2:08 PM EDT ALBUMIN / CREATININE RATIO, URINE Routine Type 2 diabetes mellitus with stage 2 chronic kidney disease, without long-term current use of insulin (HCC) 08/12/2017 2:08 PM EDT Scheduled Tests Name Priority Associated Diagnoses Order S chedule VITAMIN B12 Routine Encounter for long-term (current) drug use Expected: 08/12/2017 (Approximate), Expires: 08/12/2018 HEMOGLOBIN A1C Routine Type 2 diabetes mellitus with stage 2 chronic kidney disease, without long-term current use of insulin (HCC) Expected: 08/12/2017 (Approximate), Expires: 08/12/2018 LIPID PANEL WITH DIRECT LDL IF TG ABOVE 400 MG/DL Routine Type 2 diabetes mellitus with stage 2 chronic kidney disease, without long-term current use of insulin (HCC) Expected: 08/12/2017 (Approximate), Expires: 08/12/2018 BASIC METAB PANEL, BMP Routine Type 2 diabetes mellitus with stage 2 chronic kidney disease, without long-term current use of insulin (HCC) Essential hypertension with goal blood pressure less than 140/90 Expected: 08/12/2017 (Approximate), Expires: 08/12/2018 ALBUMIN / CREATININE RATIO, URINE Routine Type 2 diabetes mellitus with stage 2 chronic kidney disease, without long-term current use of insulin (HCC) Expected: 08/12/2017 (Approximate), Expires: 08/12/2018 Scheduled Referrals Name Priority Associated Diagnoses Order S chedule OPTOMETRY (DIABETES-EXTENDED) REFERRAL OP Within 10 days (routine) DM type 2 nursing care encounter (HCC) Ordered: 08/12/2017 Health Maintenance Due Date Last Done Comments Yearly B-12 1940 FOBT ANNUALLY,AGES 18-100 11/18/20132012, 11/27/2010, 11/22/2009, Additional history exists DIABETES-EYE EXAM 10/09/2016 10/10/2015, , 09/20/2013, Additional history exists DIABETES-HGBA1C EVERY 6 MONTHS 04/29/2017 0 10/27/2016, 07/25/2016, 01/24/2016, Additional history exists DIABETES-LDL EVERY 12 MONTHS 07/25/201702/2017, 02/14/2015, 06/29/2014, Additional history exists DIABETES-URINE MICROALBUMIN EVERY 12 MONTHS 10/27/2017 10/27/2016, 09/18/2016, 01/28/2016, Additional history exists DIABETES-FOOT EXAM 01/30/2018 01/30/2017, 1 03/25/2015, 04/17/2015, Additional history exists DTaP,Tdap,and Td Vaccines (2 - Td) 08/05/20222012, 03/16/2003 PNEUMOCOCCAL ADULT 65 YRS AND OVER Completed 10/16/2015, 12/15/2006, 04/01/2002 Influenza Vaccine (FLU shot) Completed 10/2016, 11/27/2015, 12/04/2014, Additional history exists as of this encounter Implants Implanted Type Area Ivf Embryologist Device Identifier Expiration Date Model / Serial / Lot Marker Coronary [facility] - [id number] Implanted:Qty: 1 on 12/26/2010 N/A: Heart [employer] 10/13/2013 [facility] / / [id number] Sut [employer] 6 M654g - [id number] Implanted:Qty: 5 on 12/26/2010 Chest DO NOT USE 10/14/2015 M654G / / [id number] 225-241 - [id number] Implanted:Qty: 1 on 12/26/2010 Chest [employer] 225-148 / / [id number] as of this encounter Visit Diagnoses Diagnosis Type 2 diabetes mellitus wit h stage 2 chronic kidney disease, without long-term current use of insulin (HCC) - Primary DM type 2 nursing care encou nter ([facility]) Type II or unspecified type diabetes mellitus without mention of complication, not stated as uncontrolled Atherosclerosis of [place] co ronary artery of [place] heart without angina pectoris Type 2 diabetes mellitus wit h hemoglobin A1c goal of less than 8.0% ([facility]) Essential hypertension with goal blood pressure less than 140/90 Encounter for long-term (cur rent) drug use Encounter for long-term (current) use of other medications in this encounter
--- OUTSIDE RECORDS SUMMARY | 2022-11-16 13:22 | External Medical Summary | Summary of Care ---
Author Name Unknown Organization [place] [address] Phone Care Team Providers Care Estimator Jewelry Name Role Phone Smith Danielle MD Primary Care Provider [phone] Reason for Visit * Reason Comments eRx-Medication Refill Encounter Details Date Type Department Care Team Description 10/17/2017 Refill Internal Medicine [address] [address] Smith Danielle MD [address] [place] [address] [place] [address] [phone] Type 2 diabetes mellitus with diabetic nephropathy ([facility]);Type 2 diabetes mellitus with hemoglobin A1c goal of less than 8.0% ([facility]) Allergies Active Allergy Reactions [...] Active terazosin 2 MG CapsuleIndications :Atherosclerosis of [place] coronary artery of [place] heart without angina pectoris,BPH with obstruction/lower urinary tract symptoms,Essential hypertension with goal blood pressure less than 140/90 Take 1 Cap by mouth at bedtime. 90 Cap 3 03/05/2017 Active tretinoin (RETIN-A) 0.05 % creamIndications:A ctinic keratosis APPLY NIGHTLY TO FACE DIRECTED,CAN MIX WITH PONDS 45 g 5 03/25/2017 Active glipiZIDE XL (GLUCOTROL XL) 10 MG [id number]:Ty pe 2 diabetes mellitus with hemoglobin A1c [...] WITH MEALS 180 Tab 1 10/19/2017 Active MetFORMIN (GLUCOPHAGE) 1000 MG TabletIndications: Type 2 diabetes mellitus with diabetic nephropathy (HCC),Type 2 diabetes mellitus with hemoglobin A1c goal of less than 8.0% (HCC) TAKE 1 TABLET BY MOUTH TWICE A DAY WITH MEALS 180 Tab 1 04/17/2017 8 Discontinued as of this encounter Active [...] less than 8.0% ([facility]) 01/11/2009 Overview: Per Diabetes Taxonomy. ICD-10 update of inactive term ADVANCE DIRECTIVE INFORMATION 12/23/2006 Overview: No, Advance Directive brochure given to patient at prior appointment. CORONARY ATHEROSCLER. OF [place] CORONARY VESSEL 11/30/2001 GENERAL OSTEOARTHROSIS Multiple pulmonary nodules Complex renal cyst Overview: 3.8 cm; L as of this encounter Resolved Problems Problem Noted Date Resolved Date [employer] Other*[id number] 201004/22/2016 Overview: Study Titile: Genomics Markers for Patients with Cardiovascular Disease Project # [id number] PI: Amalia Kingsley MD Please call [phone] with study related questions HTN, goal below [...] hemoglobin A1c goal of less than 7.0% ([facility]) 01/11/2009 Overview: Per Diabetes Taxonomy. [...] Telephone Encounter - Smith Danielle MD - 10/19/2017 8:28 AM EDT Signed Prescriptions: Disp RefillsMetFORMIN (GLUCOPHAGE) 1000 MG Tablet 180 Tab1 Sig: TAKE 1 TABLET BY MOUTH TWICE A DAY WITH MEALSAuthorizing Provider: SMITH DANIELLE * Telephone Encounter - Selam Vickers LPN - 10/19/2017 8:05 AM EDT Pending Prescriptions: Disp Refills MetFORMIN (GLUCOPHAGE) 1000 MG Tablet [Ph*180 Tab3 Sig: TAKE 1 TABLET BY MOUTH TWICE A DAY WITH MEALS * Telephone Encounter - Selam VickersKYLE - 10/19/2017 8:04 AM EDT Pending Prescriptions: Disp Refills MetFORMIN (GLUCOPHAGE) 1000 MG Tablet [Ph*180 Tab 3 Sig: TAKE 1 TABLET BY MOUTH TWICE A DAY WITH MEALS Last Office Visit: 08/12/2017 Next Office Visit: 02/15/2018 Scheduled Provider(s): Smith Danielle MD Lr 2-2-18 in this encounter Plan of Treatment Upcoming Encounters Date Type Specialty Care Team Description 01/11/2018 Office Visit Dermatology Kim Kong MD [address] [facility] [place] [address] [phone] 02/15/2018 Office Visit Internal Medicine Smith Danielle MD [address] [place] [address] [place] [address] 03/18/2018 Office Visit Cardiology Alcon Lott PA-C [address] [facility] [place] [address] Health Maintenance Due Date Last Done [...] of this encounter Implants Implanted Type Area Architecture Technician Device Identifier Expiration Date Model / Serial / Lot Marker Coronary [employer] - [id number] Implanted:Qty: 1 on 12/26/2010 N/A: Heart [employer] 10/13/2013 [employer] / / [id number] [employer] 6 M654g - [id number] Implanted:Qty: 5 on 12/26/2010 Chest DO NOT USE 10/14/2015 M654G / / [id number] [facility] 225-119 - [id number] Implanted:Qty: 1 on 12/26/2010 Chest [employer] 225-438 / / [id number] as of this encounter Visit Diagnoses Diagnosis Type 2 diabetes mellitus wit h diabetic nephropathy (HCC) Type II or unspecified type diabetes mellitus with renal manifestations, not stated as uncontrolled Type 2 diabetes mellitus wit h hemoglobin A1c goal of less than 8.0% (HCC) in this encounter
--- OUTSIDE RECORDS SUMMARY | 2022-11-16 13:22 | External Medical Summary | Summary of Care ---
Author Name Unknown Organization [place] [address] Phone Care Team Providers Care Mask Inspector Name Role Phone Smith Orozco MD Primary Care Provider [phone] Reason for Referral * Evaluate & Treat - Unlimited Visits (Within 10 days (routine)) Status Reason Specialty Diagnoses / Procedures Referred By Contact Referred To Contact Authorized Specialty Services Required Optometry Diagnoses DM type 2 nursing care encounter (HCC) Smith Orozco MD [address] [place] [address] [place] [address] Reason for Visit * Reason Comments STATUS CHECK Encounter Details Date Type Department Care Team Description 08/12/2017 Office Visit Internal Medicine [address] [address] Smith Orozco MD [address] [place] [address] [place] [address] [phone] Type 2 diabetes mellitus with stage 2 chronic kidney disease, without long-term current use of insulin ([facility])*;DM type 2 nursing care encounter ([facility]);Atherosclerosis of [place] coronary artery of [place] heart without angina pectoris;Type 2 diabetes mellitus [...] Active terazosin 2 MG CapsuleIndications:At herosclerosis of [place] coronary artery of [place] heart without angina pectoris,BPH with obstruction/lower urinary [...] Active glipiZIDE XL (GLUCOTROL XL) 10 MG [id number]:Type 2 diabetes mellitus with hemoglobin A1c goal [...] goal of less than 8.0% ([facility]) 01/11/2009 Overview: Per Diabetes Taxonomy. ICD-10 update of inactive term ADVANCE DIRECTIVE INFORMATION 12/23/2006 Overview: No, Advance Directive brochure given to patient at prior appointment. CORONARY ATHEROSCLER. OF [place] CORONARY VESSEL 11/30/2001 GENERAL OSTEOARTHROSIS Multiple pulmonary nodules Complex renal cyst Overview: 3.8 cm; L as of this encounter Resolved Problems Problem Noted Date Resolved Date [employer] Other*[id number] 201004/22/2016 Overview: Study Titile: Genomics Markers for Patients with Cardiovascular Disease Project # [id number] PI: Baljinder Hung MD Please call [phone] with study related questions HTN, goal below [...] Address and Fax Number: Smith Orozco MD [facility] Internal Medicine [place] [address] in this encounter Progress Notes * Smith [...] negative. Past Medical History: Diagnosis Date Acute ND, inferior wall, subsequent episode of care (HCC) 1994 BPH with obstruction/lower urinary tract symptoms 11/01/2009 CKD (chronic kidney disease) stage 2, GFR 60-89 ml/min Coronary atherosclerosis of [place] coronary artery 11/30/2001 DM type 2, goal A1c below 7 Examination of eyes and vision 09/20/13 no diabetic or hypertensive retinopathy Generalized osteoarthritis HTN, goal below 140/90 Mixed dyslipidemia Multiple pulmonary nodules 03/20/13 Peptic ulcer Renal mass, left 2014 3.8 cm Type 2 diabetes mellitus with hemoglobin A1c goal of less than 8.0% ([facility]) 01/11/2009 Per Diabetes Taxonomy. ICD-10 update of inactive term Past Surgical History: Procedure Laterality Date CABG, ARTERIAL, SINGLE 12/26/2010 CORONARY ARTERY BYPASS GRAFT USING ARTERY 1 GRAFT performed by BERTHA SENIOR at [place] [facility] CABG, ARTERY-VEIN, THREE 12/26/2010 CORONARY ARTERY BYPASS GRAFT ARTERIAL AND VENOUS 3 GRAFTS performed by BERTHA SENIOR at [place] [facility] CORONARY ANGIOGRAPHY W/LEFT HEART CATH 12/03/2010 CORONARY ANGIOGRAPHY W/LEFT HEART CATH performed by BALJINDER HUNG at [facility] [place] CHEST W CONTRAST 07/11/13 non calcified [...] VEIN performed by BERTHA SENIOR at [place] [facility] INFORMATION 1994 cardiac cath REPAIR INITIAL INGUINAL [...] Varicella Zoster Vaccine (Adult) 11/15/2011 HEMOGLOBIN, A1C(%) [facility] Dt/Tm Resulted Value Status 10/27/16 9:32A 10/27/16 6.4 FINAL 07/25/16 8:23A 07/25/16 7.0* FINAL 01/24/16 9:17A 01/24/16 6.6* FINAL LIPID PANEL WITH DIRECT LDL IF TG ABOVE 400 MG/DL [facility] Dt/Tm Resulted Value Status HOURS FASTING (hours) [...] disease, without long-term current use of insulin ([facility]) (primary encounter diagnosis) Plan: Hemoglobin a1c Lipid panel with direct ldl if tg above 400 mg/dl Basic metab panel, bmp Albumin / creatinine ratio, urine Hemoglobin a1c Lipid panel with direct ldl if tg above 400 mg/dl Basic metab panel, bmp Albumin / creatinine ratio, urine E11.9 Dm type 2 nursing care encounter ([facility]) Plan: Optometry (diabetes-extended) referral op I25.10 Atherosclerosis of [place] coronary artery of [place] heart without angina pectoris E11.9 Type 2 diabetes mellitus with hemoglobin a1c goal of less than 8.0% ([facility]) I10 Essential hypertension with goal blood pressure [...] Office Visit Cardiology Alcon Lott PA-C [address] [facility] [place] [address] [phone] 01/11/2018 Office Visit Dermatology Kim Kong MD [address] [place], [place] [address] [address] [phone] Scheduled Referrals Name Priority Associated Diagnoses Order [...] of this encounter Implants Implanted Type Area Furniture Packer Device Identifier Expiration Date Model / Serial / Lot Marker Coronary [facility]-Sd - [id number] Implanted:Qty: 1 on 12/26/2010 N/A: Heart [employer] 10/13/2013 AM-SD / / [id number] Sut Steel 6 M654g - [id number] Implanted:Qty: 5 on 12/26/2010 Chest DO NOT USE 10/14/2015 M654G / / [id number] Band [facility] 225-241 - [id number] Implanted:Qty: 1 on 12/26/2010 Chest [employer] 225-894 / / [id number] as of this encounter Results * ALBUMIN / CREATININE RATIO, URINE (08/12/2017 2:08 PM) Component Value Ref Range ALBUMIN, RD URINE 24.99 mg/dL CREATININE, RD URINE 103 mg/dL MICROALBUMIN RATIO 243(H) Comment: Normal:<30 mg/g creatinine High:30-300 mg/g creatinine Very High: >300 mg/g creatinine Nephrotic: >2200 mg/g creatinine <30 mg/g creat Specimen Performing Laborator y [facility] [address] [place] [address] * BASIC METAB PANEL, [facility] (08/12/2017 2:08 PM) Component Value Ref Range BUN 33(H) 6 - 20 mg/dL CREATININE 1.1 Comment: GFR should be used to assess renal function.Plasma/Serum creatinine may not be able to properly reflect renal function in some cases. 0.6 - 1.2 mg/dL E GLOM FILT RATE >60.0Comment:If puja ent is , multiply estimated GFR by 1.159. >60 SODIUM 141 135 - 146 mmol/L POTASSIUM 4.2 3.5 - 5.1 mmol/L CHLORIDE 101 98 - 107 mmol/L CO2 25 22 - 32 mmol/L ANION GAP 15 7 - 15 mmol/L GLUCOSE 161(H) 70 - 120 mg/dL CALCIUM 10.0 8.4 - 10.2 mg/dL Specimen Performing Laborator y [facility] [address] [place] [address] * LIPID PANEL WITH DIRECT LDL IF TG ABOVE 400 MG/DL (08/12/2017 2:08 PM) Component Value Ref Range HOURS FASTING PATIENT NOT FASTING hours TRIGLYCERIDES 143 Comment: TRIGLYCERIDE REFERENCE RANGES (mg/dL) <150 NORMAL 150-199BORDERLINE HIGH 200-499HIGH >499 VERY HIGH <200 mg/dL CHOLESTEROL 208(H) Comment: TOTAL CHOLESTEROL REFERENCE RANGES(mg/dL) <200 DESIRABLE 200-239BORDERLINE HIGH >239 HIGH <200 mg/dL HDL 56 Comment: HDL CHOLESTEROL REFERENCE RANGES(mg/dL) <40LOW(UNDESIRABLE) >59HIGH(DESIRABLE) >39 mg/dL CHOL/HDL RATIO 3.7 LDL (CALCULATED) 123 Comment: LDL CHOLESTEROL REFERENCE RANGES(mg/dL) <100 OPTIMAL GOAL FOR HIGH RISK PATIENTS 100-129NEAR OR ABOVE NORMAL 130-159BORDERLINE HIGH 160-189HIGH >189 VERY HIGH 0 - 129 mg/dL LDL DIRECT(REFLEX) NOT APPLICABLE 0 - 129 mg/dL Specimen Performing Laborator y [facility] [address] [place] [address] * HEMOGLOBIN A1C (08/12/2017 2:08 PM) Component Value Ref Range HEMOGLOBIN, A1C 7.0(H) Comment: The use of HbA1c to monitor glycemic status is based on normal hemoglobin and HbA composition. This test should not be used in patients with abnormal hemoglobin that affects the half life of the red blood cell or the in vivo glycation rates. 4.0 - 6.4 % EST AVG GLUCOSE 154(H) <126 MG/DL Specimen Performing Laborator y [facility] [address] [place] [address] * VITAMIN B12 (08/12/2017 2:08 PM) Component Value Ref Range VITAMIN B12 985 232 - 1245 pg/mL Specimen Performing Laborator y [facility] [address] [place] [address] in this encounter Visit Diagnoses Diagnosis Type 2 diabetes mellitus wit h stage 2 chronic kidney disease, without long-term current use of insulin ([facility]) - Primary DM type 2 nursing care enc nter ([facility]) Type II or unspecified type diabetes mellitus without mention of complication, not stated as uncontrolled Atherosclerosis of [place] co ronary artery of [place] heart without angina pectoris Type 2 diabetes mellitus wit h hemoglobin A1c goal of less than 8.0% ([facility]) Essential hypertension with goal blood pressure less than 140/90 Encounter for long-term (cur rent) drug use Encounter for long-term (current) use of other medications in this encounter
--- OUTSIDE RECORDS SUMMARY | 2022-11-16 13:22 | External Medical Summary ---
Author Name Unknown Address [facility] [place] [address] Phone Organization K01:[place] [address] [address] [facility] [place] [address] Laboratory Report Ordering Provider Test Date Status LOLIS BRADFORD 08/12/2017 14:08:00 Final Observation Date Value Abnormality Reference Status HbA1C 08/12/2017 22:47 7.0 Above high normal 4.0-6 .4 Final Performing Location [facility] [address] [facility] [place] [address]
--- OUTSIDE RECORDS SUMMARY | 2022-11-16 13:22 | External Medical Summary | Summary of Care ---
Author Name Unknown Organization [place] [address] Phone Care Team Providers Care Industrial Robotics Mechanic Name Role Phone Smith Danielle MD Primary Care Provider [phone] Reason for Visit * Reason Comments eRx-Medication Refill Encounter Details Date Type Department Care Team Description 11/22/2017 Refill Internal Medicine [address] [place] [address] Lena Mckeon PA-C [address] [place] [address] [place] [address] [phone] Type 2 diabetes mellitus with hemoglobin A1c goal of less than 8.0% ([facility]) Allergies Active Allergy Reactions Severity Noted [...] Active terazosin 2 MG CapsuleIndications :Atherosclerosis of [place] coronary artery of [place] heart without angina pectoris,BPH with obstruction/lower urinary tract symptoms,Essential hypertension with goal blood pressure less than 140/90 Take 1 Cap by mouth at bedtime. 90 Cap 3 03/05/2017 Active tretinoin (RETIN-A) 0.05 % creamIndications:A ctinic keratosis APPLY NIGHTLY TO FACE DIRECTED,CAN MIX WITH PONDS 45 g 5 03/25/2017 Active omeprazole (PRILOSEC) 20 MG CPDRIndications:Pe ptic [...] Active glipiZIDE XL (GLUCOTROL XL) 10 MG [id number]:Ty pe 2 diabetes mellitus with hemoglobin A1c goal of less than 8.0% (HCC) TAKE ONE TABLET BY MOUTH TWICE A DAY 180 Tab 1 11/23/2017 Active glipiZIDE XL (GLUCOTROL XL) 10 MG [id number]:Ty pe 2 diabetes mellitus with hemoglobin A1c goal of less than 8.0% (HCC) TAKE 1 TABLET BY MOUTH 2 TIMES A DAY 180 Tab 1 06/01/2017 8 Discontinued as of this encounter Active [...] less than 8.0% ([facility]) 01/11/2009 Overview: Per Diabetes Taxonomy. ICD-10 update of inactive term ADVANCE DIRECTIVE INFORMATION 12/23/2006 Overview: No, Advance Directive brochure given to patient at prior appointment. CORONARY ATHEROSCLER. OF [place] CORONARY VESSEL 11/30/2001 GENERAL OSTEOARTHROSIS Multiple pulmonary nodules Complex renal cyst Overview: 3.8 cm; L as of this encounter Resolved Problems Problem Noted Date Resolved Date [employer] Card[employer] Research Other*[id number] 201004/22/2016 Overview: Study Titile: Genomics Markers for Patients with Cardiovascular Disease Project # [id number] PI: Amalia Kingsley MD Please call [phone] with study related questions HTN, goal below [...] A1c goal of less than 7.0% ([facility]) 01/11/2009 Overview: Per Diabetes Taxonomy. ICD-10 update [...] Telephone Encounter - Smith Danielle MD - 11/23/2017 1:40 PM EDT Signed Prescriptions: Disp Refills glipiZIDE XL (GLUCOTROL XL) 10 MG TB24 180 Tab1 Sig: TAKE ONE TABLET BY MOUTH TWICE A DAY Authorizing Provider: SMITH DANIELLE * Telephone Encounter - Ginny Hall LPN - 11/23/2017 1:10 PM EDT Pending Prescriptions: Disp Refills glipiZIDE XL (GLUCOTROL XL) 10 MG TB24 [P*180 Tab1 Sig: TAKE ONE TABLET BY MOUTH TWICE A DAY * Telephone Encounter - Ginny Hall LPN - 11/23/2017 1:08 PM EDT Formatting of this note may be different from the original. Pending Prescriptions: Disp Refills glipiZIDE XL (GLUCOTROL XL) 10 MG TB24 [P*180 Tab1 Sig: TAKE ONE TABLET BY MOUTH TWICE A DAY Last Office Visit: 08/12/2017 Next Office Visit: 02/15/2018 Scheduled Provider(s): Smith Danielle MD If no future appointments scheduled, and last appointment is greater than a year ago, please schedule patient for a follow-up appointment Last date the medication was ordered: 06/01/17 Patient Phone Numbers Labs: Lab Results Component Value Date/Time CREAT 1.1 08/12/2017 02:08 PM POTASSIUM 4.2 08/12/2017 02:08 PM TSH 3.86 08/22/2013 11:51 AM LDLCALC 123 08/12/2017 02:08 PM LDLDIRECT 101 02/04/2011 04:00 PM ALT 22 07/08/2013 07:57 AM HGBA1C 7.0 (H) 08/12/2017 02:08 PM in this encounter Plan of Treatment Upcoming Encounters Date Type Specialty Care Team Description 01/11/2018 Office Visit Dermatology Kim Kong MD [address] [place] [address] [place] [address] [phone] 02/15/2018 Office Visit Internal Medicine Smith Danielle MD [address] [place] [address] [place] [address] [phone] 03/18/2018 Office Visit Cardiology Alcon Lott PA-C [address] [facility] [place] [address] [phone] Health Maintenance Due Date Last Done Comments [...] of this encounter Implants Implanted Type Area Small Appliance Assembly Supervisor Device Identifier Expiration Date Model / Serial / Lot Marker Coronary [employer]-Sd - [id number] Implanted:Qty: 1 on 12/26/2010 N/A: Heart [employer] 10/13/2013 AMGM-SD / / [id number] Sut Steel 6 M654g - [id number] Implanted:Qty: 5 on 12/26/2010 Chest DO NOT USE 10/14/2015 M654G / / [id number] Band [place] 225-737 - [id number] Implanted:Qty: 1 on 12/26/2010 Chest [employer] 225-282 / / [id number] as of this encounter Visit Diagnoses Diagnosis Type 2 diabetes mellitus wit h hemoglobin A1c goal of less than 8.0% (HCC) in this encounter
--- OUTSIDE RECORDS SUMMARY | 2022-11-16 13:22 | External Medical Summary | Summary of Care ---
Author Name Unknown Organization [place] [address] Phone Care Team Providers Care Back Up Scan Coordinator Name Role Phone Smith Orozco MD Primary Care Provider Encounter Details Date Type Department Care Team Description 10/02/2017 Orders Only Internal Medicine [address] [address] Smith Orozco MD [address] [place], [place] [address] [id number] Allergies Active Allergy Reactions Severity Noted Date [...] Active terazosin 2 MG CapsuleIndications:At herosclerosis of [place] coronary artery of [place] heart without angina pectoris,BPH with obstruction/lower urinary tract symptoms,Essential hypertension with goal blood pressure less than 140/90 Take 1 Cap by mouth at bedtime. 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 200 Each 5 07/30/2017 Active ONETOUCH ULTRA BLUE STRPIndications:Type 2 diabetes mellitus with hemoglobin A1c goal of less than 8.0% ([facility]) USE TO TEST TWICE A DAY DX: [...] A DAY 180 Tab 1 09/22/2017 Active as of this encounter Active Problems [...] than 8.0% ([facility]) 01/11/2009 Overview: Per Diabetes Taxonomy. ICD-10 update of inactive term ADVANCE DIRECTIVE INFORMATION 12/23/2006 Overview: No, Advance Directive brochure given to patient at prior appointment. CORONARY ATHEROSCLER. OF [place] CORONARY VESSEL 11/30/2001 GENERAL OSTEOARTHROSIS Multiple pulmonary nodules Complex renal cyst Overview: 3.8 cm; L as of this encounter Resolved Problems Problem Noted Date Resolved Date [employer] Card[employer] Research Other*[id number] 201004/22/2016 Overview: Study Titile: Genomics Markers for Patients with Cardiovascular Disease Project # [id number] PI: Amalia Kingsley MD Please call [phone] with study related questions HTN, goal below [...] hemoglobin A1c goal of less than 7.0% ([facility]) 01/11/2009 Overview: Per Diabetes Taxonomy. ICD-10 [...] Not on file as of this encounter Plan of Treatment Upcoming Encounters Date Type Specialty Care Team Description 01/11/2018 Office Visit Dermatology Kim Kong MD [address] [place] [address] [phone] 02/15/2018 Office Visit Internal Medicine Smith Orozco MD [address] [place] [address] [place] [address] [phone] 03/18/2018 Office Visit Cardiology Alcon Lott PA-C [address] [facility] [place] [address] [phone] Pending Results Name Priority Associated Diagnoses Date/Ti me PSA Routine 09/30/2017 12:0 0 AM EDT Health Maintenance Due Date Last [...] of this encounter Implants Implanted Type Area Parachute Accessories Attacher Device Identifier Expiration Date Model / Serial / Lot Marker Coronary Amgm-Sd - [id number] Implanted:Qty: 1 on 12/26/2010 N/A: Heart [employer] 10/13/2013 AMGM-SD / / [id number] Sut Steel 6 M654g - [id number] Implanted:Qty: 5 on 12/26/2010 Chest DO NOT USE 10/14/2015 M654G / / [id number] [facility] 225-418 - [id number] Implanted:Qty: 1 on 12/26/2010 Chest [employer] 225-218 / / [id number] as of this encounter
--- OUTSIDE RECORDS SUMMARY | 2022-11-16 13:22 | External Medical Summary | Summary of Care ---
Author Name Unknown Organization [place] [address] Phone Care Team Providers Care Power Builder Developer Name Role Phone Smith Orozco MD Primary Care Provider [phone] Reason for Referral * Evaluate & Treat - Unlimited Visits (Within 10 days (routine)) Status Reason Specialty Diagnoses / Procedures Referred By Contact Referred To Contact Authorized Specialty Services Required Optometry Diagnoses DM type 2 nursing care encounter (HCC) Smith Orozco MD [address] [place] [address] [place] [address] Reason for Visit * Reason Comments STATUS CHECK Encounter Details Date Type Department Care Team Description 08/12/2017 Office Visit Internal Medicine [address] [address] Smith Orozco MD [address] [place] [address] [place] [address] [phone] Type 2 diabetes mellitus with stage 2 chronic kidney disease, without long-term current use of insulin ([facility])*;DM type 2 nursing care encounter ([facility]);Atherosclerosis of [place] coronary artery of [place] heart without angina pectoris;Type 2 diabetes mellitus [...] Active terazosin 2 MG CapsuleIndications:At herosclerosis of [place] coronary artery of [place] heart without angina pectoris,BPH with obstruction/lower [...] Active glipiZIDE XL (GLUCOTROL XL) 10 MG [id number]:Type 2 diabetes mellitus with hemoglobin A1c goal [...] of less than 8.0% ([facility]) 01/11/2009 Overview: Per Diabetes Taxonomy. ICD-10 update of inactive term ADVANCE DIRECTIVE INFORMATION 12/23/2006 Overview: No, Advance Directive brochure given to patient at prior appointment. CORONARY ATHEROSCLER. OF [place] CORONARY VESSEL 11/30/2001 GENERAL OSTEOARTHROSIS Multiple pulmonary nodules Complex renal cyst Overview: 3.8 cm; L as of this encounter Resolved Problems Problem Noted Date Resolved Date [employer] Card[employer] Research Other*[id number] 201004/22/2016 Overview: Study Titile: Genomics Markers for Patients with Cardiovascular Disease Project # [id number] PI: Baljinder Hung MD Please call [phone] with study related questions HTN, goal below [...] Address and Fax Number: Smith Orozco MD [facility] Internal Medicine [place] [address] in this encounter Progress Notes * Smith Orozco MD - 08/12/2017 1:54 PM EDT Formatting of this note may be different from the original. No complaints of headache, trouble with vision or hearing. Eating well, with no bowel or bladder complaints. Denies chest pain or palpitations. Denies shortness of breath, PND, or orthopnea. No skinrashes or breakdown. He is very busy outside, now that it is warmer outside. No changes in mentation. The rest of a 10 point review of systems is negative. Past Medical History: Diagnosis Date Acute WI, inferior wall, subsequent episode of care (HCC) 1994 BPH with obstruction/lower urinary tract symptoms 11/01/2009 CKD (chronic kidney disease) stage 2, GFR 60-89 ml/min Coronary atherosclerosis of [place] coronary artery 11/30/2001 DM type 2, goal A1c below 7 Examination of eyes and vision 09/20/13 no diabetic or hypertensive retinopathy Generalized osteoarthritis HTN, goal below 140/90 Mixed dyslipidemia Multiple pulmonary nodules 03/20/13 Peptic ulcer Renal mass, left 2014 3.8 cm Type 2 diabetes mellitus with hemoglobin A1c goal of less than 8.0% ([facility]) 01/11/2009 Per Diabetes Taxonomy. ICD-10 update of inactive term Past Surgical History: Procedure Laterality Date CABG, ARTERIAL, SINGLE 12/26/2010 CORONARY ARTERY BYPASS GRAFT USING ARTERY 1 GRAFT performed by BERTHA SENIOR at [facility] CABG, ARTERY-VEIN, THREE 12/26/2010 CORONARY ARTERY BYPASS GRAFT ARTERIAL AND VENOUS 3 GRAFTS performed by BERTHA SENIOR at OR [facility] CORONARY ANGIOGRAPHY W/LEFT HEART CATH 12/03/2010 CORONARY ANGIOGRAPHY W/LEFT HEART CATH performed by BALJINDER HUNG at CARDIAC LABS [facility] CT CHEST W CONTRAST 07/11/13 non calcified [...] VEIN performed by BERTHA SENIOR at OR [facility] INFORMATION 1994 cardiac cath REPAIR INITIAL INGUINAL [...] Varicella Zoster Vaccine (Adult) 11/15/2011 HEMOGLOBIN, A1C(%) [facility] Dt/Tm Resulted Value Status 10/27/16 9:32A 10/27/16 6.4 FINAL 07/25/16 8:23A 07/25/16 7.0* FINAL 01/24/16 9:17A 01/24/16 6.6* FINAL LIPID PANEL WITH DIRECT LDL IF TG ABOVE 400 MG/DL [facility] Dt/Tm Resulted Value Status HOURS [...] disease, without long-term current use of insulin ([facility]) (primary encounter diagnosis) Plan: Hemoglobin a1c Lipid panel with direct ldl if tg above 400 mg/dl Basic metab panel, bmp Albumin / creatinine ratio, urine Hemoglobin a1c Lipid panel with direct ldl if tg above 400 mg/dl Basic metab panel, bmp Albumin / creatinine ratio, urine E11.9 Dm type 2 nursing care encounter ([facility]) Plan: Optometry (diabetes-extended) referral op I25.10 Atherosclerosis of [place] coronary artery of [place] heart without angina pectoris E11.9 Type 2 diabetes mellitus with hemoglobin a1c goal of less than 8.0% ([facility]) I10 Essential hypertension with goal blood pressure [...] Lott PA-C [address] [facility] [place] [address] [phone] 01/11/2018 Office Visit Dermatology Kim Kong MD [address] [place] [address] [place] [address] [phone] Pending Results Name Priority Associated Diagnoses Date/Ti [...] of this encounter Implants Implanted Type Area Paper Maker Device Identifier Expiration Date Model / Serial / Lot Marker Coronary [facility] - [id number] Implanted:Qty: 1 on 12/26/2010 N/A: Heart [employer] 10/13/2013 [facility] / / [id number] Sut [employer] 6 M654g - [id number] Implanted:Qty: 5 on 12/26/2010 Chest DO NOT USE 10/14/2015 M654G / / [id number] 225-241 - [id number] Implanted:Qty: 1 on 12/26/2010 Chest [employer] 225-063 / / [id number] as of this encounter Visit Diagnoses Diagnosis Type 2 diabetes mellitus wit h stage 2 chronic kidney disease, without long-term current use of insulin (HCC) - Primary DM type 2 nursing care encou nter ([facility]) Type II or unspecified type diabetes mellitus without mention of complication, not stated as uncontrolled Atherosclerosis of [place] co ronary artery of [place] heart without angina pectoris Type 2 diabetes mellitus wit h hemoglobin A1c goal of less than 8.0% ([facility]) Essential hypertension with goal blood pressure less than 140/90 Encounter for long-term (cur rent) drug use Encounter for long-term (current) use of other medications in this encounter
--- OUTSIDE RECORDS SUMMARY | 2022-11-16 13:22 | External Medical Summary | Summary of Care ---
Author Name Unknown Organization [place] [address] Phone Care Team Providers Care Party Plan Sales Unit Sales Leader Name Role Phone Smith Orozco MD Primary Care Provider [phone] Reason for Visit * Reason Comments APPOINTMENT Optometry Encounter Details Date Type Department Care Team Description 08/12/2017 Telephone Internal Medicine [address] [address] Smith Orozco MD [address] [place], [place] [address] [address] [phone] APPOINTMENT (Optometry ) Allergies Active Allergy Reactions Severity Noted Date [...] Active terazosin 2 MG CapsuleIndications:At herosclerosis of [place] coronary artery of [place] heart without angina pectoris,BPH with obstruction/lower urinary [...] Active glipiZIDE XL (GLUCOTROL XL) 10 MG [id number]:Type 2 diabetes mellitus with hemoglobin A1c goal [...] of less than 8.0% ([facility]) 01/11/2009 Overview: Per Diabetes Taxonomy. ICD-10 update of inactive term ADVANCE DIRECTIVE INFORMATION 12/23/2006 Overview: No, Advance Directive brochure given to patient at prior appointment. CORONARY ATHEROSCLER. OF [place] CORONARY VESSEL 11/30/2001 GENERAL OSTEOARTHROSIS Multiple pulmonary nodules Complex renal cyst Overview: 3.8 cm; L as of this encounter Resolved Problems Problem Noted Date Resolved Date Gen[employer] Cardio Research Other*[id number] 201004/22/2016 Overview: Study Titile: Genomics Markers for Patients with Cardiovascular Disease Project # [id number] PI: Amalia Kingsley MD Please call [phone] with study related questions HTN, goal below [...] goal of less than 7.0% ([facility]) 01/11/2009 Overview: Per Diabetes Taxonomy. ICD-10 update [...] encounter Miscellaneous Notes * Telephone Encounter - Adilene Alcantar OSA - 08/12/2017 3:41 PM EDT Pt makes his own eye appts. in this encounter Plan of Treatment Upcoming Encounters Date Type Specialty Care Team Description 09/03/2017 Office Visit Cardiology Alcon Lott PA-C [address] [facility] [place] [address] [phone] 01/11/2018 Office Visit Dermatology Kim Kong MD [address] [place], [place] [address] [address] [phone] 02/15/2018 Office Visit Internal Medicine Smith Orozco MD [address] [place] [address] [place] [address] Health Maintenance Due Date [...] of this encounter Implants Implanted Type Area Museum Or Zoo Director Device Identifier Expiration Date Model / Serial / Lot Marker Coronary Am-[facility] - [id number] Implanted:Qty: 1 on 12/26/2010 N/A: Heart [employer] 10/13/2013 [facility] / / [id number] Sut [employer] 6 M654g - [id number] Implanted:Qty: 5 on 12/26/2010 Chest DO NOT USE 10/14/2015 M654G / / [id number] [facility] 225-241 - [id number] Implanted:Qty: 1 on 12/26/2010 Chest [employer] 225-241 / / [id number] as of this encounter
--- OUTSIDE RECORDS SUMMARY | 2022-11-16 13:22 | External Medical Summary ---
Author Name Unknown Address [address] [place] [id number] Phone Organization K01:[facility] [address] [place] [address] Laboratory Report Ordering Provider Test Date Status WESLEY BRADFORDAFIA 08/12/2017 14:08:00 Final Observation Date Value Abnormality Reference Status Vitamin B12 08/12/2017 22:56 [phone] F inal Performing Location [address] [address]
--- OUTSIDE RECORDS SUMMARY | 2022-11-16 13:22 | External Medical Summary | Summary of Care ---
Author Name Unknown Organization [place] [address] Phone Care Team Providers Care Insecticide Expert Name Role Phone Smith Orozco MD Primary Care Provider [phone] Reason for Visit * Reason Comments FOLLOW UP 6 month return Encounter Details Date Type Department Care Team Description 09/03/2017 Office Visit Cardiology [address] [address] Alcon Lott PA-C [address] [place] [address] [phone] HTN, goal below 130/80*;Ischemic cardiomyopathy;Atheros clerosis of [place] coronary artery of [place] heart without angina pectoris;Dyslipidemia, goal LDL below 70;Statin intolerance;BPH with obstruction/lower urinary tract symptoms Allergies Active [...] each day Active losartan (COZAAR) 50 MG TabletIndications: HTN, goal below 140/80 TAKE ONE TABLET BY MOUTH TWICE A DAY 180 Tab 3 09/29/2016 Active terazosin 2 MG CapsuleIndications :Atherosclerosis of [place] coronary artery of [place] heart without angina pectoris,BPH with [...] MOUTH DAILY. 90 Tab 1 03/30/2017 Active MetFORMIN (GLUCOPHAGE) 1000 MG TabletIndications: Type 2 diabetes mellitus with diabetic nephropathy (HCC),Type 2 diabetes mellitus with hemoglobin A1c goal of less than 8.0% (HCC) TAKE 1 TABLET BY MOUTH TWICE A DAY WITH MEALS 180 Tab 1 04/17/2017 Active glipiZIDE XL (GLUCOTROL XL) 10 MG [id number]:Ty pe 2 diabetes mellitus with hemoglobin A1c [...] a day. 180 Tab 1 09/03/2017 Active amLODIPine (NORVASC) 5 MG TabletIndications: HTN, goal below 140/80 Take 1 Tab by mouth daily. 90 Tab 1 04/06/2017 8 Discontinued as of this encounter Active [...] than 8.0% ([facility]) 01/11/2009 Overview: Per Diabetes Taxonomy. ICD-10 update of inactive term ADVANCE DIRECTIVE INFORMATION 12/23/2006 Overview: No, Advance Directive brochure given to patient at prior appointment. CORONARY ATHEROSCLER. OF [place] CORONARY VESSEL 11/30/2001 GENERAL OSTEOARTHROSIS Multiple pulmonary nodules Complex renal cyst Overview: 3.8 cm; L as of this encounter Resolved Problems Problem Noted Date Resolved Date Genomics Cardio Research Other*[id number] 201004/22/2016 Overview: Study Titile: Genomics Markers for Patients with Cardiovascular Disease Project # [id number] PI: Amalia Kingsley MD Please call [phone] with study related questions HTN, goal below [...] hemoglobin A1c goal of less than 7.0% ([facility]) 01/11/2009 Overview: Per Diabetes Taxonomy. ICD-10 update [...] Vital Sign Reading Time Taken Blood Pressure 128/78 09/03/2017 7:54 AM EDT Pulse 68 09/03/2017 7:54 AM EDT Temperature - - Respiratory Rate 16 09/03/2017 7:54 AM EDT Oxygen Saturation - - Inhaled Oxygen Concentration - - Weight 63.3 kg (139 lb 9.6 oz) 09/04/19 18 7:54 AM EDT Height - - Body Mass Index 23.23 09/03/2017 7:54 AM EDT in this encounter Progress Notes * Alcon Lott PA-C - 09/03/2017 8:03 AM EDT Formatting of this note may be different from the original. History of Present Illness: Mr. Reynolds is a very pleasant 77 year old male here today for routinecardiology follow-up. Patient notes elevated blood pressures in the AM upon wakening, normotension observed on random blood pressure checks throughout the day. No reported chest pain, sublingual nitro glycerin use, palpitations, new or worsening shortness of breath. He remains able to ambulate 2-3 flights without difficulty. No nocturnal cough, orthopnea, PND, or peripheral edema. No lightheadedness, dizziness, near syncope, or true syncope. No epistaxis, hemoptysis, melena, hematochezia, or hematuria. Varying nocturia. Chronic constipation. Patient Active Problem List Diagnosis Code GENERAL OSTEOARTHROSIS M15.9 CORONARY ATHEROSCLER. OF [place] CORONARY VESSEL I25.10 ADVANCE DIRECTIVE INFORMATION DM [...] without long- term current use of insulin ([facility]) E11.22, N18.2 Hx of nonmelanoma skin cancer Z85.828 Past Surgical History: Inguinal hernia. CABG Social History: From [place]. Lives in [place] with his . Reformed smoker. 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 Review of patient's allergies indicates: Allergen Reactions Acetaminophen Renal complications Aspirin Stomach pain Cholestyramine Kidney pain Lipitor [Atorvastatin Calcium] cramping Niacin Muscle pain Simvastatin Hives Zetia [Ezetimibe] Cramping ankles, turned feet inward Current Outpatient Prescriptions Medication Sig Dispense Refill amLODIPine (NORVASC) 5 MG Tablet Take 1 Tab by mouth 2 times a day. 180 Tab 1 finasteride (PROSCAR) 5 MG [...] for allergies 30 5 PHYSICAL EXAMINATION BP 128/78 | Pulse 68 | Resp 16 | Wt 139 lbs 9.6 oz (63.322kg) | BMI 23.23 kg/m | BSA 1.7 m | BP on my examination was 142/74 on the left, 136/76 on the right. General: A&Ox3. NAD. HEENT: Normocephalic. Atraumatic. PER. Conjunctiva pink, sclera clear. Neck: Bilateral carotid bruits. No JVD. No HJR. Heart: Irregular with occasional ectopy around 70 bpm. Grade II/ systolic ejection murmur. No [...] there has been no significant interval change. July 2017 labs reviewed with the patient today. ASSESSMENT: 1. Labile hypertension. 2. ASCVD, ischemic cardiomyopathy with past inferior [place] in 1994 managed at [facility]. 3. Catheterization in 2010 following abnormal [...] and obtuse marginal. 5. Ischemic cardiomyopathy, LVEF 45%. 6. Moderate aortic insufficiency. 7. Compensated volume status. 8. Palpitations in association with sensed ectopy, quiescent 9. Dyslipidemia, statin intolerance. 10. Type II diabetes mellitus. 11. Carotid artery disease. History of prior TIA with transient leg weakness. 12. BPH Options discussed. Plan agreed upon as detailed below. RECOMMENDATIONS/PLAN: 1. Increase amlodipine from 5 mg/day to 5 mg twice a day for additional blood pressure control. Benefits, use, and risks discussed. Updated prescription sent to the pharmacy of his choice electronically. 2. Routine cardiology follow-up in 6 months or as needed. 3. ER with emergencies. Alcon Lott PA-C Department of Cardiology in this encounter Nursing Notes * Arlette Fung RN - 09/03/2017 7:54 AM EDT Examination Room: 3 Name: Cl Reynolds Date of : (1940). Reason for Visit: 6 month return Interim Hospitalization(s): Denied Problems/Concerns: No problems voiced Chest Pain/SOB: Denied [facility] is a way you can talk to your provider online through e-mail. Would you like to sign up? I can activate it for you? NO in this encounter Plan of Treatment Upcoming Encounters Date Type Specialty Care Team Description 01/11/2018 Office Visit Dermatology Kim Kong MD [address] [facility] [place] [address] [phone] 02/15/2018 Office Visit Internal Medicine Smith Orozco MD [address] [place] [address] [place] [address] [phone] 03/18/2018 Office Visit Cardiology Alcon Lott PA-Adelfo [address] [facility] [place] [address] [phone] Health Maintenance Due Date Last Done Comments [...] of this encounter Implants Implanted Type Area Motor Rebuilder Device Identifier Expiration Date Model / Serial / Lot Marker Coronary [facility] - [id number] Implanted:Qty: 1 on 12/26/2010 N/A: Heart [employer] 10/13/2013 [facility] / / [id number] Sut Steel 6 M654g - [id number] Implanted:Qty: 5 on 12/26/2010 Chest DO NOT USE 10/14/2015 M654G / / [id number] Alonso Pascual 723-366 - [id number] Implanted:Qty: 1 on 12/26/2010 Chest [employer] 225-992 / / [id number] as of this encounter Visit Diagnoses Diagnosis HTN, goal below 130/80 - Norma stevenson Unspecified essential hypertension Ischemic cardiomyopathy Other specified forms of chronic ischemic heart disease Atherosclerosis of [place] co ronary artery of [place] heart without angina pectoris Dyslipidemia, goal LDL below 70 Other and unspecified hyperlipidemia Statin intolerance Other drug allergy BPH with obstruction/lower u rinary tract symptoms Hypertrophy of prostate with urinary obstruction and other lower urinary tract symptoms (LUTS) in this encounter"
--- OUTSIDE RECORDS SUMMARY | 2022-11-16 13:22 | External Medical Summary | Summary of Care ---
Author Name Unknown Organization [place] [address] Phone Care Team Providers Care Sheetfed Press Operator Name Role Phone Smith Orozco MD Primary Care Provider [phone] Encounter Details Date Type Department Care Team Description 11/18/2017 Result Scan Unspecified Department <No scans attached> [...] Active terazosin 2 MG CapsuleIndications:At herosclerosis of [place] coronary artery of [place] heart without angina pectoris,BPH with obstruction/lower urinary tract symptoms,Essential hypertension with goal blood pressure less than 140/90 Take 1 Cap by mouth at bedtime. 90 Cap 3 03/05/2017 Active tretinoin (RETIN-A) 0.05 % creamIndications:Acti rene keratosis APPLY NIGHTLY TO FACE DIRECTED,CAN MIX WITH PONDS 45 g 5 03/25/2017 Active glipiZIDE XL (GLUCOTROL XL) 10 MG [id number]:Type 2 diabetes mellitus with hemoglobin A1c goal [...] disease, without long-term current use of insulin ([facility]) 01/24/2016 Hx of actinic keratosis 10/12/2015 Ischemic [...] hemoglobin A1c goal of less than 8.0% ([facility]) 01/11/2009 Overview: Per Diabetes Taxonomy. ICD-10 update of inactive term ADVANCE DIRECTIVE INFORMATION 12/23/2006 Overview: No, Advance Directive brochure given to patient at prior appointment. CORONARY ATHEROSCLER. OF [place] CORONARY VESSEL 11/30/2001 GENERAL OSTEOARTHROSIS Multiple pulmonary nodules Complex renal cyst Overview: 3.8 cm; L as of this encounter Resolved Problems Problem Noted Date Resolved Date [employer] Card[employer] Research Other*[id number] 201004/22/2016 Overview: Study Titile: Genomics Markers for Patients with Cardiovascular Disease Project # [id number] PI: Amalia Kingsley MD Please call [phone] with study related questions HTN, goal below [...] hemoglobin A1c goal of less than 7.0% ([facility]) 01/11/2009 Overview: Per Diabetes Taxonomy. ICD-10 [...] Office Visit [facility]atology Kim Kong [facility] [address] [facility] [address] [phone] 02/15/2018 Office Visit Internal Medicine Smith Orozco MD [address] [place] [address] [place] [address] [phone] 03/18/2018 Office Visit Cardiology Alcon Lott PA-C [address] [facility] [place] [address] Health Maintenance Due Date [...] of this encounter Implants Implanted Type Area Metal Sash Setter Device Identifier Expiration Date Model / Serial / Lot Marker Coronary [facility] - [id number] Implanted:Qty: 1 on 12/26/2010 N/A: Heart [employer] 10/13/2013 [facility] / / [id number] Sut Steel 6 M654g - [id number] Implanted:Qty: 5 on 12/26/2010 Chest DO NOT USE 10/14/2015 M654G / / [id number] [facility] 225-241 - [id number] Implanted:Qty: 1 on 12/26/2010 Chest [employer] 225-241 / / [id number] as of this encounter Results * OUTSIDE LAB RESULTS (11/18/2017) in this encounter
--- OUTSIDE RECORDS SUMMARY | 2022-11-16 13:23 | External Medical Summary | Summary of Care ---
Author Name Unknown Organization [place] [address] Phone Care Team Providers Care Core Man Name Role Phone Smith Orozco MD Primary Care Provider [phone] Reason for Visit * Reason Comments Encounter Created in Error Encounter Details Date Type Department Care Team Description 04/10/2017 Telephone Internal Medicine [address] [place] [address] Smith Orozco MD [address] [place] [address] [place] [address] [phone] Encounter Created in Error Allergies Active Allergy [...] PO TABS one pill each day Active Glucose Blood (AventuraUCH ULTRA BLUE) STRPIndications:Type 2 diabetes mellitus with hemoglobin A1c goal of less than 8.0% (HCC) test twice a day DX: E11.9 200 Strip 5 07/25/2016 Active ONETOUCH ULTRASOFT LANCETS MISCIndications:Type 2 diabetes mellitus with hemoglobin A1c goal of less than 8.0% (HCC) Use as directed 2 times a day. 2 Box Dosing Unit 5 07/25/2016 Active MetFORMIN (GLUCOPHAGE) 1000 MG TabletIndications:Ty pe 2 diabetes mellitus with diabetic nephropathy (HCC),Type 2 diabetes mellitus with hemoglobin A1c goal of less than 8.0% (HCC) TAKE 1 TABLET BY MOUTH TWICE A DAY WITH MEALS 180 Tab 1 09/30/2016 Active losartan (COZAAR) 50 MG TabletIndications:HT N, goal below 140/80 TAKE ONE TABLET BY MOUTH TWICE A DAY 180 Tab 3 09/29/2016 Active omeprazole (PRILOSEC) 20 MG CPDRIndications:Pept ic ulcer TAKE ONE CAPSULE BY MOUTH DAILY ONE HOUR PRIOR TO THE FIRST MEAL OF THE DAY 90 Cap 1 10/01/2016 Active glipiZIDE XL (GLUCOTROL XL) 10 MG [id number]:Type 2 diabetes mellitus with hemoglobin A1c goal of less than 8.0% (HCC) TAKE 1 TABLET BY MOUTH 2 TIMES A DAY 180 Tab 1 12/09/2016 Active terazosin 2 MG CapsuleIndications:A therosclerosis of [place] coronary artery of [place] heart without angina pectoris,BPH with obstruction/lower urinary tract symptoms,Essential hypertension with goal blood pressure less than 140/90 Take 1 Cap by mouth at bedtime. 90 Cap 3 03/05/2017 Active tretinoin (RETIN-A) 0.05 % creamIndications:Act inic keratosis APPLY NIGHTLY TO FACE DIRECTED,CAN MIX WITH PONDS 45 g 5 03/25/2017 Active finasteride (PROSCAR) 5 MG Tablet TAKE 1 TABLET BY MOUTH DAILY. 90 Tab 1 03/30/2017 Active amLODIPine (NORVASC) 5 MG TabletIndications:HT N, goal below 140/80 Take 1 Tab by mouth daily. 90 Tab 1 04/06/2017 Active as of this encounter Active Problems [...] OF [place] CORONARY VESSEL 11/30/2001 Peptic ulcer GENERAL OSTEOARTHROSIS Multiple pulmonary nodules CKD (chronic kidney disease) stage 2, GF R 60-89 ml/min Complex renal cyst Overview: 3.8 cm; L as of this encounter Resolved Problems Problem Noted Date Resolved Date [employer] Card[employer] Research Other*[id number] 201004/22/2016 Overview: Study Titile: Genomics Markers for Patients with Cardiovascular Disease Project # [id number] PI: Amalia Kingsley MD Please call [phone] with study related questions HTN, goal below [...] Mixed dyslipidemia 02/22/2009 Overview: Per Lipid Taxonomy. Type 2 diabetes mellitus wit h hemoglobin A1c goal of less than 7.0% ([facility]) 01/11/2009 Overview: Per Diabetes Taxonomy. ICD-10 update of inactive term as of this encounter Immunizations Name Dates [...] encounter Miscellaneous Notes * Telephone Encounter - Riya Easley, oven builder - 04/10/2017 10:50 AM EST Encounter created in error in this encounter Plan of Treatment Upcoming Encounters Date Type Specialty Care Team Description 07/13/2017 Office Visit Dermatology Kim Kong MD [address] [facility] [place] [address] [phone] 07/31/2017 Office Visit Internal Medicine Smith Orozco MD [address] [place] [address] [place] [address] [phone] 09/03/2017 Office Visit Cardiology Alcon Lott PA-C [address] [facility] [place] [address] Health Maintenance Due Date Last Done Comments FOBT ANNUALLY,AGES 18-100 11/18/20132012, 11/27/2010, 11/22/2009, Additional history exists *ADVANCE DIRECTIVE NOT ON FILE 04/06/2014 DIABETES-EYE EXAM 10/09/2016 10/10/2015, , 09/20/2013, Additional history exists DIABETES-HGBA1C EVERY 6 MONTHS 04/29/2017 0 10/27/2016, 07/25/2016, 01/24/2016, Additional history exists DIABETES-LDL EVERY 12 MONTHS 07/25/201702/2017, 02/14/2015, 06/29/2014, Additional history exists DIABETES-URINE MICROALBUMIN EVERY 12 MONTHS 10/27/2017 10/27/2016, 09/18/2016, 01/28/2016, Additional history exists DIABETES-FOOT EXAM 01/30/2018 01/30/2017, 1 03/25/2015, 04/17/2015, Additional history exists TETANUS EVERY 10 YEARS-TDAP (BOOSTRIX OR ADACEL) SUGGESTED IF NOT RECEIVED IN THE PAST. 08/05/2022 08/05/2012, 03/16/2003 PNEUMOCOCCAL ADULT 65 YRS AND OVER Completed 10/16/2015, 12/15/2006, 04/01/2002 Influenza Vaccine (FLU shot) Completed 10/2016, 11/27/2015, 12/04/2014, Additional history exists as of this encounter Implants Implanted Type Area Info Print Press Operator Device Identifier Expiration Date Model / Serial / Lot Marker Coronary [facility]-Sd - [id number] Implanted:Qty: 1 on 12/26/2010 N/A: Heart [employer] 10/13/2013 [facility]-SD / / [id number] Sut Steel 6 M654g - [id number] Implanted:Qty: 5 on 12/26/2010 Chest DO NOT USE 10/14/2015 M654G / / [id number] Alonso [facility] 225-241 - [id number] Implanted:Qty: 1 on 12/26/2010 Chest [employer] 225-079 / / [id number] as of this encounter Insurance Payer Benefit Plan / Group Subscriber ID Type Phone Address [facility] [employer] [facility] [employer] NO DRUG [id number] Medicare [phone] [place] [address] as of this encounter
--- OUTSIDE RECORDS SUMMARY | 2022-11-16 13:23 | External Medical Summary | Summary of Care ---
Author Name Unknown Organization [place] [address] Phone Care Team Providers Care Ingredient Handler Name Role Phone Smith Orozco MD Primary Care Provider [phone] Reason for Visit * Reason Comments Pre Cert/Prior Auth Encounter Details Date Type Department Care Team Description 03/27/2017 Telephone Internal Medicine [address] [address] Smith Orozco MD [address] [place] [address] [facility] [address] [phone] Pre Cert/Prior Auth Allergies Active Allergy Reactions Severity Noted Date [...] one pill each day Active Glucose Blood (ONETOUCH ULTRA BLUE) STRPIndications:Ty pe 2 diabetes mellitus with hemoglobin A1c goal of less than 8.0% (HCC) test twice a day DX: E11.9 200 Strip 5 07/25/2016 Active ONETOUCH ULTRASOFT LANCETS MISCIndications:Ty pe 2 diabetes mellitus with hemoglobin A1c goal of less than 8.0% (HCC) Use as directed 2 times a day. 2 Box Dosing Unit 5 07/25/2016 Active MetFORMIN (GLUCOPHAGE) 1000 MG TabletIndications: Type 2 diabetes mellitus with diabetic nephropathy (HCC),Type 2 diabetes mellitus with hemoglobin A1c goal of less than 8.0% (HCC) TAKE 1 TABLET BY MOUTH TWICE A DAY WITH MEALS 180 Tab 1 09/30/2016 Active losartan (COZAAR) 50 MG TabletIndications: HTN, goal below 140/80 TAKE ONE TABLET BY MOUTH TWICE A DAY 180 Tab 3 09/29/2016 Active amLODIPine (NORVASC) 5 MG TabletIndications: HTN, goal below 140/80 TAKE ONE TABLET BY MOUTH DAILY 90 Tab 1 09/29/2016 Active omeprazole (PRILOSEC) 20 MG CPDRIndications:Pe ptic ulcer TAKE ONE CAPSULE BY MOUTH DAILY ONE HOUR PRIOR TO THE FIRST MEAL OF THE DAY 90 Cap 1 10/01/2016 Active glipiZIDE XL (GLUCOTROL XL) 10 MG [id number]:Ty pe 2 diabetes mellitus with hemoglobin A1c goal of less than 8.0% (HCC) TAKE 1 TABLET BY MOUTH 2 TIMES A DAY 180 Tab 1 12/09/2016 Active terazosin 2 MG CapsuleIndications :Atherosclerosis of [place] coronary artery of [place] heart without angina pectoris,BPH with obstruction/lower urinary tract symptoms,Essential hypertension with goal blood pressure less than 140/90 Take 1 Cap by mouth at bedtime. 90 Cap 3 03/05/2017 Active tretinoin (RETIN-A) 0.05 % creamIndications:A ctinic keratosis APPLY NIGHTLY TO FACE DIRECTED,CAN MIX WITH PONDS 45 g 5 03/25/2017 Active finasteride (PROSCAR) 5 MG Tablet Take 1 Tab by mouth daily. 90 Tab 1 09/29/2016 8 Discontinued as of this encounter Active Problems Problem Noted Date Hx of nonmelanoma skin cancer 11/19/2016 Overview: L superior posterior helix SCC 09/2016 Type 2 diabetes mellitus wit h stage 2 chronic kidney disease, without long-term current use of insulin ([facility]) 01/24/2016 Hx of actinic keratosis 10/12/2015 Ischemic [...] less than 8.0% ([facility]) 01/11/2009 Overview: Per Diabetes Taxonomy. ICD-10 update of inactive term ADVANCE DIRECTIVE INFORMATION 12/23/2006 Overview: No, Advance Directive brochure given to patient at prior appointment. CORONARY [place]OSCLER. OF [place] CORONARY VESSEL 11/30/2001 Peptic ulcer GENERAL OSTEOARTHROSIS Multiple pulmonary nodules CKD (chronic kidney disease) stage 2, GF R 60-89 ml/min Complex renal cyst Overview: 3.8 cm; L as of this encounter Resolved Problems Problem Noted Date Resolved Date Gen[employer] Cardio Research Other*[id number] 201004/22/2016 Overview: Study Titile: Genomics Markers for Patients with Cardiovascular Disease Project # [id number] PI: Amalia Kingsley MD Please call [phone] with study related questions HTN, goal below [...] hemoglobin A1c goal of less than 7.0% ([facility]) 01/11/2009 Overview: Per Diabetes Taxonomy. ICD-10 update [...] encounter Miscellaneous Notes * Telephone Encounter - Socorro Narvaez CPhT - 03/27/2017 9:29 AM EST Patient name: Cl Reynolds Prescription carrier ID number: [id number] Subscriber name: Cl Reynolds Medication: tretinoin (RETIN-A) 0.05 What reason was given for needing a prior auth? (i.e. not on formulary,quantity exceeds limit...) not approved for patient for acne Pharmacy: [facility] Name of patient's Rx plan and phone number: [facility] List medications patient has tried and failed for this condition and who prescribed it: none Patient stated his insurance will not cover this for Acne Socorro Martínez [facility] Refill Call Center 03/27/2017,9:32 AM in this encounter Plan of Treatment Upcoming Encounters Date Type Specialty Care Team Description 07/13/2017 Office Visit Dermatology Kim Kong MD [address] [place] [address], [place] [address] [phone] 07/31/2017 Office Visit Internal Medicine Smith Orozco MD [address] [place] [address] [place] [address] [phone] 09/03/2017 Office Visit Cardiology Alcon Lott PA-C [address] [facility] [place] [address] [phone] Health Maintenance Due Date Last Done Comments [...] of this encounter Implants Implanted Type Area Measuring Clerk Device Identifier Expiration Date Model / Serial / Lot Marker Coronary Am-Sd - [id number] Implanted:Qty: 1 on 12/26/2010 N/A: Heart [employer] 10/13/2013 [employer]-SD / / [id number] Sut Steel 6 M654g - [id number] Implanted:Qty: 5 on 12/26/2010 Chest DO NOT USE 10/14/2015 M654G / / [id number] Alonso [facility] 225-241 - [id number] Implanted:Qty: 1 on 12/26/2010 Chest [employer] 225-232 / / [id number] as of this encounter Insurance Payer Benefit Plan / Group Subscriber ID Type Phone Address [facility] [employer] [facility] CUSTOM NO DRUG [id number] Medicare [phone] [place] [address] as of this encounter
--- OUTSIDE RECORDS SUMMARY | 2022-11-16 13:23 | External Medical Summary | Summary of Care ---
Author Name Unknown Organization [place] [address] Phone Care Team Providers Care Bullet Casting Operator Name Role Phone Smith Danielle MD Primary Care Provider [phone] Reason for Visit * Reason Comments eRx-Medication Refill Encounter Details Date Type Department Care Team Description 04/17/2017 Refill Internal Medicine [address] [address] Smith Danielle MD [address] [place], [place] [address] [address] [phone] Type 2 diabetes mellitus with diabetic nephropathy ([facility]);Type 2 diabetes mellitus with hemoglobin A1c goal of less than 8.0% ([facility]) Allergies Active Allergy Reactions Severity [...] 2 Box Dosing Unit 5 07/25/2016 Active losartan (COZAAR) 50 MG TabletIndications: HTN, goal below 140/80 TAKE ONE TABLET BY MOUTH TWICE A DAY 180 Tab 3 09/29/2016 Active omeprazole (PRILOSEC) 20 MG CPDRIndications:Pe ptic ulcer TAKE ONE CAPSULE BY MOUTH DAILY ONE HOUR PRIOR TO THE FIRST MEAL OF THE DAY 90 Cap 1 10/01/2016 Active glipiZIDE XL (GLUCOTROL XL) 10 MG [id number]:Ty pe 2 diabetes mellitus with hemoglobin A1c goal of less than 8.0% (HCC) TAKE 1 TABLET BY MOUTH 2 TIMES A DAY 180 Tab 1 12/09/2016 Active terazosin 2 MG CapsuleIndications :Atherosclerosis of [place] coronary artery of [place] [...] 1 03/30/2017 Active amLODIPine (NORVASC) 5 MG TabletIndications: HTN, goal below 140/80 Take 1 Tab by mouth daily. 90 Tab 1 04/06/2017 Active MetFORMIN (GLUCOPHAGE) 1000 MG TabletIndications: Type 2 diabetes mellitus with diabetic nephropathy (HCC),Type 2 diabetes mellitus with hemoglobin A1c goal of less than 8.0% (HCC) TAKE 1 TABLET BY MOUTH TWICE A DAY WITH MEALS 180 Tab 1 04/17/2017 Active MetFORMIN (GLUCOPHAGE) 1000 MG TabletIndications: Type 2 diabetes mellitus with diabetic nephropathy (HCC),Type 2 diabetes mellitus with hemoglobin A1c goal of less than 8.0% ([facility]) TAKE 1 TABLET BY MOUTH TWICE A DAY WITH MEALS 180 Tab 1 09/30/2016 8 Discontinued as of this encounter Active [...] goal of less than 8.0% ([facility]) 01/11/2009 Overview: Per Diabetes Taxonomy. ICD-10 update of inactive term ADVANCE DIRECTIVE INFORMATION 12/23/2006 Overview: No, Advance Directive brochure given to patient at prior appointment. CORONARY ATHEROSCLER. OF [place] CORONARY VESSEL 11/30/2001 Peptic ulcer GENERAL OSTEOARTHROSIS Multiple pulmonary nodules CKD (chronic kidney disease) stage 2, GF R 60-89 ml/min Complex renal cyst Overview: 3.8 cm; L as of this encounter Resolved Problems Problem Noted Date Resolved Date [employer] Cardio Research Other*[id number] 201004/22/2016 Overview: Study Titile: Genomics Markers for Patients with Cardiovascular Disease Project # [id number] PI: Amalia Kingsley MD Please call [phone] with study related questions HTN, goal below [...] goal of less than 7.0% ([facility]) 01/11/2009 Overview: Per Diabetes Taxonomy. [...] Telephone Encounter - Smith Danielle MD - 04/17/2017 3:15 PM EST Signed Prescriptions: Disp Refills MetFORMIN (GLUCOPHAGE) 1000 MG Tablet 180 Tab1 Sig: TAKE 1 TABLET BY MOUTH TWICE A DAY WITH MEALS Authorizing Provider: SMITH DANIELLE * Telephone Encounter - Selam Vickers LPN - 04/17/2017 2:52 PM EST Pending Prescriptions: Disp Refills MetFORMIN (GLUCOPHAGE) 1000 MG Tablet [Ph*180 Tab1 Sig: TAKE 1 TABLET BY MOUTH TWICE A DAY WITH MEALS * Telephone Encounter - Selam Vickers LPN - 04/17/2017 2:51 PM EST Pending Prescriptions: Disp Refills MetFORMIN (GLUCOPHAGE) 1000 MG Tablet [Ph*180 Tab1 Sig: TAKE 1 TABLET BY MOUTH TWICE A DAY WITH MEALS Last Office Visit: 01/30/2017 Next Office Visit: 07/31/2017 Scheduled Provider(s): Smith Danielle MD Lr 09-30-16 in this encounter Plan of Treatment Upcoming Encounters Date Type Specialty Care Team Description 07/13/2017 Office Visit Dermatology Kim Kong MD [address] [place] [address] [phone] 07/31/2017 Office Visit Internal Medicine Smith Danielle MD [address] [place] [address] [place] [address] [phone] 09/03/2017 Office Visit Cardiology Alcon Lott PA-C [address] [facility] [place] [address] [phone] Health Maintenance Due Date Last Done Comments [...] of this encounter Implants Implanted Type Area Rod Finisher Device Identifier Expiration Date Model / Serial / Lot Marker Coronary [employer]-Sd - [id number] Implanted:Qty: 1 on 12/26/2010 N/A: Heart [employer] 10/13/2013 AM-[place] / / [id number] Sut Steel 6 M654g - [id number] Implanted:Qty: 5 on 12/26/2010 Chest DO NOT USE 10/14/2015 M654G / / [id number] Band [facility] 225-649 - [id number] Implanted:Qty: 1 on 12/26/2010 Chest [employer] 225-186 / / [id number] as of this encounter Visit Diagnoses Diagnosis Type 2 diabetes mellitus wit h diabetic nephropathy (HCC) Type II or unspecified type diabetes mellitus with renal manifestations, not stated as uncontrolled Type 2 diabetes mellitus wit h hemoglobin A1c goal of less than 8.0% (HCC) in this encounter Insurance Payer Benefit Plan / Group Subscriber ID Type Phone Address [facility] [employer] [facility] CUSTOM NO DRUG [id number] Medicare [phone] [address] [facility] [place] [address] as of this encounter
--- OUTSIDE RECORDS SUMMARY | 2022-11-16 13:23 | External Medical Summary | Summary of Care ---
Author Name Unknown Organization [place] [address] Phone Care Team Providers Care Hat Band Attacher Name Role Phone Smith Orozco MD Primary Care Provider [phone] Reason for Visit * Reason Comments Pre Cert/Prior Auth Encounter Details Date Type Department Care Team Description 03/27/2017 Telephone Internal Medicine [address] [address] Smith Orozco MD [address] [place] [address] [facility] [place] [address] [phone] Pre Cert/Prior Auth Allergies Active Allergy Reactions [...] Active glipiZIDE XL (GLUCOTROL XL) 10 MG [id number]:Ty pe 2 diabetes mellitus with hemoglobin A1c goal of less than 8.0% (HCC) TAKE 1 TABLET BY MOUTH 2 TIMES A DAY 180 Tab 1 12/09/2016 Active terazosin 2 MG CapsuleIndications :Atherosclerosis of [place] coronary artery of [place] heart without angina pectoris,BPH with obstruction/lower [...] without long-term current use of insulin ([facility]) 01/24/2016 Hx of actinic keratosis 10/12/2015 [...] A1c goal of less than 8.0% ([facility]) 01/11/2009 Overview: Per Diabetes Taxonomy. ICD-10 update of inactive term ADVANCE DIRECTIVE INFORMATION 12/23/2006 Overview: No, Advance Directive brochure given to patient at prior appointment. CORONARY ATHEROSCLER. OF [place] CORONARY VESSEL 11/30/2001 Peptic ulcer GENERAL OSTEOARTHROSIS Multiple pulmonary nodules CKD (chronic kidney disease) stage 2, GF R 60-89 ml/min Complex renal cyst Overview: 3.8 cm; L as of this encounter Resolved Problems Problem Noted Date Resolved Date [employer] Card[employer] Research Other*[id number] 201004/22/2016 Overview: Study Titile: Genomics Markers for Patients with Cardiovascular Disease Project # [id number] PI: Amalia Kingsley MD Please call [phone] with study related questions HTN, goal below [...] A1c goal of less than 7.0% ([facility]) 01/11/2009 Overview: Per Diabetes Taxonomy. ICD-10 [...] name: Cl Reynolds Prescription carrier ID number: [id number] Subscriber name: Cl Reynolds Medication: tretinoin (RETIN-A) 0.05 What reason was given for needing a prior auth? (i.e. not on formulary,quantity exceeds limit...) not approved for patient for acne Pharmacy: [facility] Name of patient's Rx plan and phone number: [facility] List medications patient has tried and failed for this condition and who prescribed it: none Patient stated his insurance will not cover this for Acne Socorro Martínez Sales Office Manager Pharmacy Refill Call Center 03/27/2017,9:32 AM in this encounter Plan of Treatment Upcoming Encounters Date Type Specialty Care Team Description 07/13/2017 Office Visit Dermatology Kim Kong MD [address] [place] [address], [place] [address] [phone] 07/31/2017 Office Visit Internal Medicine Smith Orozco MD [address] [place] [address] [place] [address] [phone] 09/03/2017 Office Visit Cardiology Alcon Lott PA-C [address] [facility] [place] [address] [phone] Health Maintenance Due Date Last Done Comments [...] of this encounter Implants Implanted Type Area Cross Roller Device Identifier Expiration Date Model / Serial / Lot Marker Coronary Am-Sd - [id number] Implanted:Qty: 1 on 12/26/2010 N/A: Heart [employer] 10/13/2013 [employer] / / [id number] Sut Steel 6 M654g - [id number] Implanted:Qty: 5 on 12/26/2010 Chest DO NOT USE 10/14/2015 M654G / / [id number] Alonso [facility] 225-241 - [id number] Implanted:Qty: 1 on 12/26/2010 Chest [employer] 225-302 / / [id number] as of this encounter Insurance Payer Benefit Plan / Group Subscriber ID Type Phone Address [facility] [email or web address] [facility] CUSTOM NO DRUG [id number] Medicare [phone] [place] [address] as of this encounter
--- OUTSIDE RECORDS SUMMARY | 2022-11-16 13:23 | External Medical Summary | Summary of Care ---
Author Name Unknown Organization [place] [address] Phone Care Team Providers Care Infant And Toddler Teacher Name Role Phone Smith Orozco MD Primary Care Provider [phone] Encounter Details Date Type Department Care Team Description 04/12/2017 Scan Encounter Dermatology [facility] [address] [place] [address] Kim Kong MD [address] [place] [address] [phone] <No scans attached> Allergies Active Allergy Reactions [...] one pill each day Active Glucose Blood (Intensity TherapeuticsUCH ULTRA BLUE) STRPIndications:Type 2 diabetes mellitus with hemoglobin A1c goal of less than 8.0% ([facility]) test twice a day DX: E11.9 200 Strip 5 07/25/2016 Active ONETOUCH ULTRASOFT LANCETS MISCIndications:Type 2 diabetes mellitus with hemoglobin A1c goal of less than 8.0% ([facility]) Use as directed 2 times a day. 2 Box Dosing Unit 5 07/25/2016 Active losartan (COZAAR) 50 MG TabletIndications:HT N, goal below 140/80 TAKE ONE TABLET BY MOUTH TWICE A DAY 180 Tab 3 09/29/2016 Active omeprazole (PRILOSEC) 20 MG CPDRIndications:Pept ic ulcer TAKE ONE CAPSULE BY MOUTH DAILY ONE HOUR PRIOR TO THE FIRST MEAL OF THE DAY 90 Cap 1 10/01/2016 Active glipiZIDE XL (GLUCOTROL XL) 10 MG [id number]:Type 2 diabetes mellitus with hemoglobin A1c goal of less than 8.0% ([facility]) TAKE 1 TABLET BY MOUTH 2 TIMES A DAY 180 Tab 1 12/09/2016 Active terazosin 2 MG CapsuleIndications:A therosclerosis of [place] coronary artery of [place] heart without angina pectoris,BPH with obstruction/lower urinary [...] without long-term current use of insulin ([facility]) 01/24/2016 Hx of actinic keratosis 10/12/2015 [...] A1c goal of less than 8.0% ([facility]) 01/11/2009 Overview: Per Diabetes Taxonomy. ICD-10 update of inactive term ADVANCE DIRECTIVE INFORMATION 12/23/2006 Overview: No, Advance Directive brochure given to patient at prior appointment. CORONARY ATHEROSCLER. OF [place] CORONARY VESSEL 11/30/2001 Peptic ulcer GENERAL OSTEOARTHROSIS Multiple pulmonary nodules CKD (chronic kidney disease) stage 2, GF R 60-89 ml/min Complex renal cyst Overview: 3.8 cm; L as of this encounter Resolved Problems Problem Noted Date Resolved Date Gen[employer] Cardio Research Other*[id number] 201004/22/2016 Overview: Study Titile: Genomics Markers for Patients with Cardiovascular Disease Project # [id number] PI: Amalia Kingsley MD Please call [phone] with study related questions HTN, goal below [...] A1c goal of less than 7.0% ([facility]) 01/11/2009 Overview: Per Diabetes Taxonomy. ICD-10 [...] Kong MD 200 [place] [address] [phone] 07/31/2017 Office Visit Internal Medicine Smith Orozco MD [address] [place] [address] [place] [address] [phone] 09/03/2017 Office Visit Cardiology Alocn Lott PA-C [address] [facility] [place] [address] [phone] Health Maintenance Due Date Last Done Comments DTaP,Tdap,and Td Vaccines (3 - Td) 02/05/20132012, 03/16/2003 FOBT ANNUALLY,AGES 18-100 11/18/20132012, 11/27/2010, 11/22/2009, Additional [...] 01/30/2017, 1 03/25/2015, 04/17/2015, Additional history exists PNEUMOCOCCAL ADULT 65 YRS AND OVER Completed 10/16/2015, 12/15/2006, 04/01/2002 Influenza Vaccine (FLU shot) Completed 10/2016, 11/27/2015, 12/04/2014, Additional history exists as of this encounter Implants Implanted Type Area Homicide Squad Sergeant Device Identifier Expiration Date Model / Serial / Lot Marker Coronary Am-Sd - [id number] Implanted:Qty: 1 on 12/26/2010 N/A: Heart [employer] 10/13/2013 AMGM-SD / / [id number] Sut Steel 6 M654g - [id number] Implanted:Qty: 5 on 12/26/2010 Chest DO NOT USE 10/14/2015 M654G / / [id number] [facility] 225-241 - [id number] Implanted:Qty: 1 on 12/26/2010 Chest [employer] 225-730 / / [id number] as of this encounter Insurance Payer Benefit Plan / Group Subscriber ID Type Phone Address [facility] [employer] [facility] CUST[facility] NO DRUG [id number] Medicare [phone] [facility] [address] as of this encounter
--- OUTSIDE RECORDS SUMMARY | 2022-11-16 13:23 | External Medical Summary | Summary of Care ---
Author Name Unknown Organization [place] [address] Phone Care Team Providers Care Limnology Teacher Name Role Phone Smith Orozco MD Primary Care Provider Unava ilable Reason for Visit * Reason Comments eRx-Medication Refill Encounter Details Date Type Department Care Team Description 05/30/2017 Refill Internal Medicine [address] [address] Smith Orozco MD [address] [place] [address] [place] [address] [phone] Type 2 diabetes mellitus with hemoglobin A1c goal of less than 8.0% ([facility]) Allergies Active Allergy Reactions Severity [...] one pill each day Active Glucose Blood (LBE Security MasterTOUCH ULTRA BLUE) STRPIndications:Ty pe 2 diabetes mellitus [...] THE DAY 90 Cap 1 10/01/2016 Active terazosin 2 MG CapsuleIndications :Atherosclerosis of [place] coronary artery of red [...] Active glipiZIDE XL (GLUCOTROL XL) 10 MG BB00Exycairigjh:Ty pe 2 diabetes mellitus with hemoglobin A1c goal of less than 8.0% (HCC) TAKE 1 TABLET BY MOUTH 2 TIMES A DAY 180 Tab 1 06/01/2017 Active glipiZIDE XL (GLUCOTROL XL) 10 MG CG27Jevqaxrmwnc:Ty pe 2 diabetes mellitus with hemoglobin A1c goal of less than 8.0% (HCC) TAKE 1 TABLET BY MOUTH 2 TIMES A DAY 180 Tab 1 12/09/2016 8 Discontinued as of this encounter Active [...] less than 8.0% ([facility]) 01/11/2009 Overview: Per Diabetes Taxonomy. ICD-10 update of inactive term ADVANCE DIRECTIVE INFORMATION 12/23/2006 Overview: No, Advance Directive brochure given to patient at prior appointment. CORONARY ATHEROSCLER. OF [place] CORONARY VESSEL 11/30/2001 Peptic ulcer GENERAL OSTEOARTHROSIS Multiple pulmonary nodules CKD (chronic kidney disease) stage 2, GF R 60-89 ml/min Complex renal cyst Overview: 3.8 cm; L as of this encounter Resolved Problems Problem Noted Date Resolved Date Gen[employer] Cardio Research Other*[id number] 201004/22/2016 Overview: Study Titile: Genomics Markers for Patients with Cardiovascular Disease Project # [id number] PI: Amalia Kingsley MD Please call [phone] with study related questions HTN, goal below [...] hemoglobin A1c goal of less than 7.0% ([facility]) 01/11/2009 Overview: Per Diabetes Taxonomy. [...] Telephone Encounter - Gautam Tubbs PA-C - 06/01/2017 10:36 AM EDT Signed Prescriptions: Disp Refills glipiZIDE XL (GLUCOTROL XL) 10 MG TB24 180 Tab1 Sig: TAKE 1 TABLET BY MOUTH 2 TIMES A DAY Authorizing Provider: GAUTAM TUBBS * Telephone Encounter - Selam Vickers LPN - 06/01/2017 10:25 AM EDT Pending Prescriptions: Disp Refills glipiZIDE XL (GLUCOTROL XL) 10 MG TB24 [P*180 Tab1 Sig: TAKE 1 TABLET BY MOUTH 2 TIMES A DAY * Telephone Encounter - Selam Vickers LPN - 06/01/2017 10:25 AM EDT Pending Prescriptions: Disp Refills glipiZIDE XL (GLUCOTROL XL) 10 MG TB24 [P*180 Tab1 Sig: TAKE 1 TABLET BY MOUTH 2 TIMES A DAY Last Office Visit: 01/30/2017 Next Office Visit: 07/31/2017 Scheduled Provider(s): Smith Orozco MD Lr 9-26-17 in this encounter Plan of Treatment Upcoming Encounters Date Type Specialty Care Team Description 07/13/2017 Office Visit Dermatology Kim Kong MD [address] [facility] [place] [address] [phone] 07/31/2017 Office Visit Internal Medicine Smith Orozco MD [address] [place] [address] [place] [address] 09/03/2017 Office Visit Cardiology Alcon Lott PA-C 132 [facility] [place] [address] Health Maintenance Due [...] of this encounter Implants Implanted Type Area Energy Efficiency Engineer Device Identifier Expiration Date Model / Serial / Lot Marker Coronary Amgm-Sd - [id number] Implanted:Qty: 1 on 12/26/2010 N/A: Heart [employer] 10/13/2013 AMGM-SD / / [id number] Sut Steel 6 M654g - [id number] Implanted:Qty: 5 on 12/26/2010 Chest DO NOT USE 10/14/2015 M654G / / [id number] [facility] 225-259 - [id number] Implanted:Qty: 1 on 12/26/2010 Chest [employer] 225-841 / / [id number] as of this encounter Visit Diagnoses Diagnosis Type 2 diabetes mellitus wit h hemoglobin A1c goal of less than 8.0% (HCC) in this encounter Insurance Payer Benefit Plan / Group Subscriber ID Type Phone Address [facility] CUST[facility] NO DRUG [id number] Medicare [phone] [facility] [place] [address] as of this encounter
--- OUTSIDE RECORDS SUMMARY | 2022-11-16 13:23 | External Medical Summary | Summary of Care ---
Author Name Unknown Organization [place] [address] Phone Care Team Providers Care Cane Flume Watcher Name Role Phone Smith Orozco MD Primary Care Provider [phone] Encounter Details Date Type Department Care Team Description 03/30/2017 Orders Only Outcomes Research Department [address] [place] [facility] [place] [address] [place] [id number] [employer] Research Other*[id number] Allergies Active Allergy Reactions Severity Noted Date [...] one pill each day Active Glucose Blood (OesiaUCH ULTRA BLUE) STRPIndications:Type 2 diabetes mellitus with hemoglobin A1c goal of less than 8.0% ([facility]) test twice a day DX: E11.9 200 [...] 3 09/29/2016 Active amLODIPine (NORVASC) 5 MG TabletIndications:HT N, goal below 140/80 TAKE ONE TABLET BY MOUTH DAILY 90 Tab 1 09/29/2016 Active finasteride (PROSCAR) 5 MG Tablet Take 1 Tab by mouth daily. 90 Tab 1 09/29/2016 Active omeprazole (PRILOSEC) 20 MG CPDRIndications:Pept ic ulcer TAKE ONE CAPSULE BY MOUTH DAILY ONE HOUR PRIOR TO THE FIRST MEAL OF THE DAY 90 Cap 1 10/01/2016 Active glipiZIDE XL (GLUCOTROL XL) 10 MG WC68Xzqjznglngb:Type 2 diabetes mellitus with hemoglobin A1c goal of less than 8.0% (HCC) TAKE 1 TABLET BY MOUTH 2 TIMES A DAY 180 Tab 1 12/09/2016 Active terazosin 2 MG CapsuleIndications:A therosclerosis of [place] coronary artery of [place] heart without angina pectoris,BPH with obstruction/lower urinary tract symptoms,Essential hypertension with goal blood pressure less than 140/90 Take 1 Cap by mouth at bedtime. 90 Cap 3 03/05/2017 Active tretinoin (RETIN-A) 0.05 % creamIndications:Act inic keratosis APPLY NIGHTLY TO FACE DIRECTED,CAN MIX WITH PONDS 45 g 5 03/25/2017 Active as of this encounter Active Problems [...] than 8.0% ([facility]) 01/11/2009 Overview: Per Diabetes Taxonomy. ICD-10 update [...] Noted Date Resolved Date Genomics Cardio Research Other*[id number] 201004/22/2016 Overview: Study Titile: Genomics Markers for Patients with Cardiovascular Disease Project # [id number] PI: Amalia Kingsley MD Please call [phone] with study related questions HTN, goal below [...] hemoglobin A1c goal of less than 7.0% ([facility]) 01/11/2009 Overview: Per Diabetes Taxonomy. ICD-10 update [...] Office Visit Dermatology Kim Kong MD 200 [place] [address] [phone] 07/31/2017 Office Visit Internal Medicine Smith Orozco MD [address] [place] [address] [place] [address] [phone] 09/03/2017 Office Visit Cardiology Alcon Lott PA-C [address] [facility] [place] [address] [phone] Scheduled Tests Name Priority Associated Diagnoses Order S chedule MYCODE SUBSEQUENT ADULT Routine MyCode Research Other*[id number] Every 6 Months for 2 Occurrences starting 03/30/2017 until 04/19/2018 Health Maintenance Due Date Last Done Comments [...] of this encounter Implants Implanted Type Area Roller Stitcher Device Identifier Expiration Date Model / Serial / Lot Marker Coronary Am-Sd - [id number] Implanted:Qty: 1 on 12/26/2010 N/A: Heart [employer] 10/13/2013 AM-SD / / [id number] Sut Steel 6 M654g - [id number] Implanted:Qty: 5 on 12/26/2010 Chest DO NOT USE 10/14/2015 M654G / / [id number] [facility] 225-241 - [id number] Implanted:Qty: 1 on 12/26/2010 Chest [employer] 225-241 / / [id number] as of this encounter Visit Diagnoses Diagnosis MYCODE RESEARCH OTHER*[id number] in this encounter Insurance Payer Benefit Plan / Group Subscriber ID Type Phone Address [facility] [employer] [facility] CUSTOM NO DRUG [id number] Medicare [phone] [facility] [place] [address] as of this encounter
--- OUTSIDE RECORDS SUMMARY | 2022-11-16 13:23 | External Medical Summary | Summary of Care ---
Author Name Unknown Organization [place] [address] Phone Care Team Providers Care Motel Maid Name Role Phone Smith Orozco MD Primary Care Provider [phone] Reason for Visit * Reason Comments Pre Cert/Prior Auth Encounter Details Date Type Department Care Team Description 03/27/2017 Telephone Internal Medicine [address] [address] Smith Orozco MD [address] [place] [address] [facility] [place] [address] [phone] Pre Cert/Prior Auth Allergies Active Allergy Reactions [...] Active glipiZIDE XL (GLUCOTROL XL) 10 MG [id number]:Ty pe 2 diabetes mellitus with hemoglobin A1c goal of less than 8.0% (HCC) TAKE 1 TABLET BY MOUTH 2 TIMES A DAY 180 Tab 1 12/09/2016 Active terazosin 2 MG CapsuleIndications :Atherosclerosis of [place] coronary artery of [place] [...] without long-term current use of insulin ([facility]) 01/24/2016 Hx of actinic keratosis [...] than 8.0% ([facility]) 01/11/2009 Overview: Per Diabetes Taxonomy. ICD-10 update of inactive term ADVANCE DIRECTIVE INFORMATION 12/23/2006 Overview: No, Advance Directive brochure given to patient at prior appointment. CORONARY ATHEROSCLER. OF [place] CORONARY VESSEL 11/30/2001 Peptic ulcer GENERAL OSTEOARTHROSIS Multiple pulmonary nodules CKD (chronic kidney disease) stage 2, GF R 60-89 ml/min Complex renal cyst Overview: 3.8 cm; L as of this encounter Resolved Problems Problem Noted Date Resolved Date Genomics Cardio Research Other*[id number] 201004/22/2016 Overview: Study Titile: Genomics Markers for Patients with Cardiovascular Disease Project # [id number] PI: Amalia Kingsley MD Please call [phone] with study related questions HTN, goal below [...] A1c goal of less than 7.0% ([facility]) 01/11/2009 Overview: Per Diabetes [...] name: Cl Reynolds Prescription carrier ID number: [id number] Subscriber name: Cl Reynolds Medication: tretinoin (RETIN-A) 0.05 What reason was given for needing a prior auth? (i.e. not on formulary,quantity exceeds limit...) not approved for patient for acne Pharmacy: [facility] Name of patient's Rx plan and phone number: [place] [place] List medications patient has tried and failed for this condition and who prescribed it: none Patient stated his insurance will not cover this for Acne [facility] Refill Call Center 03/27/2017,9:32 AM in this encounter Plan of Treatment Upcoming Encounters Date Type Specialty Care Team Description 07/13/2017 Office Visit Dermatology Kim Kong MD [address] [place] [address], [place] [address] [phone] 07/31/2017 Office Visit Internal Medicine Smith Orozco MD [address] [place] [address] [place] [address] [phone] 09/03/2017 Office Visit Cardiology Alcon Lott PA-C [address] [facility] [place] [address] [phone] Health Maintenance Due Date Last Done Comments [...] of this encounter Implants Implanted Type Area Emg Technician Device Identifier Expiration Date Model / Serial / Lot Marker Coronary Am-Sd - [id number] Implanted:Qty: 1 on 12/26/2010 N/A: Heart [employer] 10/13/2013 AMGM-SD / / [id number] Sut Steel 6 M654g - [id number] Implanted:Qty: 5 on 12/26/2010 Chest DO NOT USE 10/14/2015 M654G / / [id number] [facility] 225-241 - [id number] Implanted:Qty: 1 on 12/26/2010 Chest [employer] 225-404 / / [id number] as of this encounter Insurance Payer Benefit Plan / Group Subscriber ID Type Phone Address [facility] [email or web address] [facility] CUSTOM NO DRUG [id number] Medicare [address] [place] [address] as of this encounter
--- OUTSIDE RECORDS SUMMARY | 2022-11-16 13:23 | External Medical Summary | Summary of Care ---
Author Name Unknown Organization [place] [address] Phone Care Team Providers Care Hotel And Dining Room Cashier Name Role Phone Smith Orozco MD Primary Care Provider [phone] Reason for Visit * Reason Comments Pre Cert/Prior Auth Encounter Details Date Type Department Care Team Description 04/14/2017 Telephone Internal Medicine [address] [address] Smith Orozco MD [address] [place] [address] [facility] [place] [address] [phone] Pre Cert/Prior Auth Allergies Active Allergy Reactions [...] one pill each day Active Glucose Blood (Ultimate Football NetworkUCH ULTRA BLUE) STRPIndications:Type 2 diabetes mellitus with [...] Active glipiZIDE XL (GLUCOTROL XL) 10 MG HL79Djtqwwifmyc:Type 2 diabetes mellitus with hemoglobin A1c goal of less than 8.0% (HCC) TAKE 1 TABLET BY MOUTH 2 TIMES A DAY 180 Tab 1 12/09/2016 Active terazosin 2 MG CapsuleIndications:A therosclerosis of [place] coronary artery of [place] heart without angina pectoris,BPH with obstruction/lower urinary [...] disease, without long-term current use of insulin ([facility]) 01/24/2016 Hx of actinic keratosis [...] less than 8.0% ([facility]) 01/11/2009 Overview: Per Diabetes Taxonomy. ICD-10 update of inactive term ADVANCE DIRECTIVE INFORMATION 12/23/2006 Overview: No, Advance Directive brochure given to patient at prior appointment. CORONARY ATHEROSCLER. OF [place] CORONARY VESSEL 11/30/2001 Peptic ulcer GENERAL OSTEOARTHROSIS Multiple pulmonary nodules CKD (chronic kidney disease) stage 2, GF R 60-89 ml/min Complex renal cyst Overview: 3.8 cm; L as of this encounter Resolved Problems Problem Noted Date Resolved Date Genomics Cardio Research Other*[id number] 201004/22/2016 Overview: Study Titile: Genomics Markers for Patients with Cardiovascular Disease Project # [id number] PI: Amalia Kingsley MD Please call [phone] with study related questions HTN, goal below [...] hemoglobin A1c goal of less than 7.0% ([facility]) 01/11/2009 Overview: Per Diabetes Taxonomy. [...] Telephone Encounter - Yohana Alcantara RN - 04/14/2017 2:05 PM EST [facility] scripts approved tretinoin cream from 01/13/17-04/13/18. [facility] pharmacy notified/ via fax. in this encounter Plan of Treatment Upcoming Encounters Date Type Specialty Care Team Description 07/13/2017 Office Visit Dermatology Kim Kong MD [address] [place] [address] [phone] 07/31/2017 Office Visit Internal Medicine Smith Orozco MD [address] [place] [address] [place] [address] [phone] 09/03/2017 Office Visit Cardiology Alcon Lott [facility]C [facility] [place] [address] [phone] Health Maintenance Due Date Last Done Comments [...] this encounter Implants Implanted Type Area Water Superintendent Device Identifier Expiration Date Model / Serial / Lot Marker Coronary Am-Sd - [id number] Implanted:Qty: 1 on 12/26/2010 N/A: Heart [employer] 10/13/2013 AMGM-SD / / [id number] Sut Steel 6 M654g - [id number] Implanted:Qty: 5 on 12/26/2010 Chest DO NOT USE 10/14/2015 M654G / / [id number] [facility] 225-241 - [id number] Implanted:Qty: 1 on 12/26/2010 Chest [employer] 225-097 / / [id number] as of this encounter Insurance Payer Benefit Plan / Group Subscriber ID Type Phone Address [facility] [employer] [facility] CUSTOM NO DRUG [id number] Medicare [phone] [place] [address] as of this encounter
--- OUTSIDE RECORDS SUMMARY | 2022-11-16 13:23 | External Medical Summary | Summary of Care ---
Author Name Unknown Organization [place] [address] Phone Care Team Providers Care Magistrate Name Role Phone Smith Danielle MD Primary Care Provider + [phone] Reason for Visit * Reason Comments eRx-Medication Refill Encounter Details Date Type Department Care Team Description 03/29/2017 Refill Internal Medicine [address] [address] Smith Danielle MD [address] [place] [address] [facility] [place] [address] [phone] Allergies Active Allergy Reactions Severity Noted Date [...] Active glipiZIDE XL (GLUCOTROL XL) 10 MG LB50Lpvepbosxcp:Ty pe 2 diabetes mellitus with hemoglobin A1c goal of less than 8.0% (HCC) TAKE 1 TABLET BY MOUTH 2 TIMES A DAY 180 Tab 1 12/09/2016 Active terazosin 2 MG CapsuleIndications :Atherosclerosis of [place] coronary artery of [place] heart without angina pectoris,BPH with obstruction/lower urinary [...] MOUTH DAILY. 90 Tab 1 03/30/2017 Active finasteride (PROSCAR) 5 MG Tablet Take [...] ([facility]) 01/11/2009 Overview: Per Diabetes Taxonomy. ICD-10 update of inactive term ADVANCE DIRECTIVE INFORMATION 12/23/2006 Overview: No, Advance Directive brochure given to patient at prior appointment. CORONARY ATHEROSCLER. OF [place] CORONARY VESSEL 11/30/2001 Peptic ulcer GENERAL OSTEOARTHROSIS Multiple pulmonary nodules CKD (chronic kidney disease) stage 2, GF R 60-89 ml/min Complex renal cyst Overview: 3.8 cm; L as of this encounter Resolved Problems Problem Noted Date Resolved Date [employer] Other*[id number] 201004/22/2016 Overview: Study Titile: Genomics Markers for Patients with Cardiovascular Disease Project # [id number] PI: Amalia Kingsley MD Please call [phone] with study related questions HTN, goal below [...] less than 7.0% ([facility]) 01/11/2009 Overview: Per Diabetes Taxonomy. ICD-10 update [...] Telephone Encounter - Smith Danielle MD - 03/30/2017 3:53 PM EST Signed Prescriptions: Disp Refills finasteride (PROSCAR) 5 MG Tablet 90 Tab 1 Sig: TAKE 1 TABLET BY MOUTH DAILY. Authorizing Provider: SMITH DANIELLE * Telephone Encounter - Kerri Ferreira LPN - 03/30/2017 2:45 PM EST Pending Prescriptions: Disp Refills finasteride (PROSCAR) 5 MG Tablet [Pharma*90 Tab 1 Sig: TAKE 1 TABLET BY MOUTH DAILY. * Telephone Encounter - Hanna Kerri KYLE Corenjo - 03/30/2017 2:44 PM EST Pending Prescriptions: Disp Refills finasteride (PROSCAR) 5 MG Tablet [Pharma*90 Tab 1 Sig: TAKE 1 TABLET BY MOUTH DAILY. Last Office Visit: 01/30/2017 Next Office Visit: 07/31/2017 Scheduled Provider(s): Smith Danielle MD If no future appointments scheduled, and last appointment is greater than a year ago, please schedule patient for a follow-up appointment Last date the medication was ordered: 09/29/16 Phone number(s): [phone] (home) Labs: CREATININE-OUTSIDE LAB(MG/DL) Lucía Dt/Tm Resulted Value Status 12/01/16 12/03/16 1.00 FINAL POTASSIUM(mmol/L) Lucía Dt/Tm Resulted Value Status 10/27/16 9:32A 10/27/16 4.3 FINAL LDL (CALCULATED)(mg/dL) Lucía Dt/Tm Resulted Value Status 07/25/16 8:23A 07/25/16 143* FINAL TSH(uIU/mL) Lucía Dt/Tm Resulted Value Status 08/22/13 11:51A 08/22/13 3.86 FINAL ALT(U/L) Lucía Dt/Tm Resulted Value Status 07/08/13 7:57A 07/08/13 22 FINAL Hemoglobin AIC Results: HEMOGLOBIN, A1C(%) Lucía Dt/Tm Resulted Value Status 10/27/16 9:32A 10/27/16 6.4 FINAL 07/25/16 8:23A 07/25/16 7.0* FINAL 01/24/16 9:17A 01/24/16 6.6* FINAL in this encounter Plan of Treatment Upcoming Encounters Date Type Specialty Care Team Description 07/13/2017 Office Visit Dermatology Kim Kong MD [address] [place] [address] [phone] 07/31/2017 Office Visit Internal Medicine Smith Danielle MD [address] [place] [address] [place] [address] [phone] 09/03/2017 Office Visit Cardiology Alcon Lott PA-C [address] [facility] [place] [address] [phone] Health Maintenance Due Date Last Done Comments [...] of this encounter Implants Implanted Type Area Crew Leader/Control Room Operator Device Identifier Expiration Date Model / Serial / Lot Marker Coronary Am-Sd - [id number] Implanted:Qty: 1 on 12/26/2010 N/A: Heart [employer] 10/13/2013 AMGM-SD / / [id number] Sut Steel 6 M654g - [id number] Implanted:Qty: 5 on 12/26/2010 Chest DO NOT USE 10/14/2015 M654G / / [id number] [facility] 225-241 - [id number] Implanted:Qty: 1 on 12/26/2010 Chest [employer] 225-354 / / [id number] as of this encounter Insurance Payer Benefit Plan / Group Subscriber ID Type Phone Address [facility] NO DRUG [id number] Medicare [phone] [facility] [place] [address] as of this encounter
--- OUTSIDE RECORDS SUMMARY | 2022-11-16 13:23 | External Medical Summary | Summary of Care ---
Author Name Unknown Organization [place] [address] Phone Care Team Providers Care Telephone Maintainer Name Role Phone Smith Danielle MD Primary Care Provider Unava ilable Reason for Visit * Reason Comments eRx-Medication Refill Encounter Details Date Type Department Care Team Description 07/06/2017 Refill Internal Medicine [address] [address] Smith Danielle MD [address] [place] [address] [place] [id number] PEPTIC ULCER NOS Allergies Active Allergy Reactions [...] one pill each day Active Glucose Blood (AliveshoesTOUCH ULTRA BLUE) STRPIndications:Ty pe 2 diabetes mellitus [...] Active terazosin 2 MG CapsuleIndications :Atherosclerosis of [place] coronary artery of [place] heart without angina pectoris,BPH with obstruction/lower urinary [...] Active glipiZIDE XL (GLUCOTROL XL) 10 MG [id number]:Ty pe 2 diabetes mellitus with hemoglobin A1c goal of less than 8.0% (HCC) TAKE 1 TABLET BY MOUTH 2 TIMES A DAY 180 Tab 1 06/01/2017 Active omeprazole (PRILOSEC) 20 MG CPDRIndications:Pe ptic ulcer TAKE ONE CAPSULE BY MOUTH DAILY ONE HOUR PRIOR TO THE FIRST MEAL OF THE DAY 90 Cap 1 07/07/2017 Active omeprazole (PRILOSEC) 20 MG CPDRIndications:Pe ptic ulcer TAKE ONE CAPSULE BY MOUTH DAILY ONE HOUR PRIOR TO THE FIRST MEAL OF THE DAY 90 Cap 1 10/01/2016 8 Discontinued as of this encounter Active [...] less than 8.0% ([facility]) 01/11/2009 Overview: Per Diabetes Taxonomy. ICD-10 update of inactive term ADVANCE DIRECTIVE INFORMATION 12/23/2006 Overview: No, Advance Directive brochure given to patient at prior appointment. CORONARY ATHEROSCLER. OF [place] CORONARY VESSEL 11/30/2001 Peptic ulcer GENERAL OSTEOARTHROSIS Multiple pulmonary nodules Complex renal cyst Overview: 3.8 cm; L as of this encounter Resolved Problems Problem Noted Date Resolved Date [employer] Other*[id number] 201004/22/2016 Overview: Study Titile: Genomics Markers for Patients with Cardiovascular Disease Project # [id number] PI: Amalia Kingsley MD Please call [phone] with study related questions HTN, goal below [...] A1c goal of less than 7.0% ([facility]) 01/11/2009 Overview: Per Diabetes [...] Telephone Encounter - Smith Danielle MD - 07/07/2017 10:22 AM EDT Signed Prescriptions: Disp Refills omeprazole (PRILOSEC) 20 MG CPDR 90 Cap 1 Sig: TAKE ONE CAPSULE BY MOUTH DAILY ONE HOUR PRIOR TO THE FIRST MEAL OF THE DAY Authorizing Provider: SMITH DANIELLE * Telephone Encounter - Selam Vickers LPN - 07/07/2017 9:59 AM EDT Pending Prescriptions: Disp Refills omeprazole (PRILOSEC) 20 MG CPDR [Pharmac*90 Cap 1 Sig: TAKE ONE CAPSULE BY MOUTH DAILY ONE HOUR PRIOR TO THE FIRST MEAL OF THE DAY * Telephone Encounter - Selam VickersKYLE - 07/07/2017 9:58 AM EDT Pending Prescriptions: Disp Refills omeprazole (PRILOSEC) 20 MG CPDR [Pharmac*90 Cap 1 Sig: TAKE ONE CAPSULE BY MOUTH DAILY ONE HOUR PRIOR TO THE FIRST MEAL OF THE DAY Last Office Visit: 01/30/2017 Next Office Visit: 07/31/2017 Scheduled Provider(s): Smith Danielle MD Lr 10-01-16 in this encounter Plan of Treatment Upcoming Encounters Date Type Specialty Care Team Description 07/13/2017 Office Visit Dermatology Kim Kong MD [address] [place] [address] [phone] 07/31/2017 Office Visit Internal Medicine Smith Danielle MD [address] [place] [address] [place] [address] 09/03/2017 Office Visit Cardiology Alcon Lott PA-C [address] [facility] [place] [address] Health Maintenance Due Date Last Done [...] of this encounter Implants Implanted Type Area Microsoft Office Instructor Device Identifier Expiration Date Model / Serial / Lot Marker Coronary AmJacobAd [employer]. [employer].-Sd - [id number] Implanted:Qty: 1 on 12/26/2010 N/A: Heart [employer] 10/13/2013 AMGM-SD / / [id number] Sut Steel 6 M654g - [id number] Implanted:Qty: 5 on 12/26/2010 Chest DO NOT USE 10/14/2015 M654G / / [id number] [facility] 225-241 - [id number] Implanted:Qty: 1 on 12/26/2010 Chest [employer] 225-925 / / [id number] as of this encounter Visit Diagnoses Diagnosis PEPTIC ULCER NOS Peptic ulcer, unspecified site, unspecified as acute or chronic, without mention of hemorrhage, perforation, or obstruction in this encounter Insurance Payer Benefit Plan / Group Subscriber ID Type Phone Address [facility] NO DRUG [id number] Medicare [phone] [place] [address] as of this encounter
--- OUTSIDE RECORDS SUMMARY | 2022-11-16 13:23 | External Medical Summary | Summary of Care ---
Author Name Unknown Organization [place] [address] Phone Care Team Providers Care Door Closer Name Role Phone Smith Danielle MD Primary Care Provider + [phone] Reason for Visit * Reason Comments FOLLOW UP Partial Skin Check. Has a couple lesions "here and there" that need frozen. History Update [place], [place], Papular Derm atitis Encounter Details Date Type Department Care Team Description 07/13/2017 Office Visit Dermatology [facility] [address] [place] [address] Kim Kong MD [address] [place] [address] [phone] Actinic keratosis*;Hx of actinic keratosis;Scar conditions and fibrosis of skin;Hx of nonmelanoma skin cancer Allergies Active Allergy [...] day Active Glucose Blood (ONETOUCH ULTRA BLUE) STRPIndications:Type 2 diabetes mellitus with [...] Tab 3 09/29/2016 Active terazosin 2 MG CapsuleIndications:A therosclerosis of [place] coronary artery of [place] heart without angina pectoris,BPH with obstruction/lower urinary [...] 1 04/06/2017 Active MetFORMIN (GLUCOPHAGE) 1000 MG TabletIndications: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 OF [place] CORONARY VESSEL 11/30/2001 Peptic ulcer GENERAL OSTEOARTHROSIS Multiple pulmonary nodules Complex renal cyst Overview: 3.8 cm; L as of this encounter Resolved Problems Problem Noted Date Resolved Date [employer] Card[employer] Research Other*[id number] 201004/22/2016 Overview: Study Titile: Genomics Markers for Patients with Cardiovascular Disease Project # [id number] PI: Amalia Kingsley MD Please call [phone] with study related questions HTN, goal below [...] Progress Notes * Kim Kong MD - 07/13/2017 9:48 AM EDT Formatting of this note may be different from the original. SUBJECTIVE: History of Present Illness: Cl [place] is a 76 year old male seen today for follow up - skin check (partial). Last OfficeVisit: 11/19/2016. Sore spots on arms, hands, face, come and go x years, using tretinoin cream nightly. Hx SCC L posterior helix 09/2016 [place] R cheek (could not R/O SCC) 11/2014 Hx other AKs Works outdoors often REVIEW OF SYSTEMS: SKIN: No other new or changing moles. HEME/LYMPH: No new or enlarging lumps or bumps. MEDICA TIONS: Current Outpatient Prescriptions Medication Sig Dispense Refill GAVI 180 MG PO TABS One pill by mouth once a day for allergies 30 5 amLODIPine (NORVASC) 5 MG Tablet Take 1 Tab by mouth daily. 90 Tab 1 finasteride (PROSCAR) 5 MG Tablet TAKE 1 TABLET BY MOUTH DAILY. 90 Tab 1 glipiZIDE XL (GLUCOTROL XL) 10 MG TB24 TAKE 1 TABLET BY MOUTH 2 TIMES A DAY 180 Tab 1 Glucose Blood (ONETOUCH ULTRA BLUE) STRP test twice a day DX: E11.9 200 Strip 5 losartan (COZAAR) 50 MG Tablet TAKE ONE [...] OF THE DAY 90 Cap 1 ONETOUCH ULTRASOFT LANCETS MISC Use as directed 2 times a day. 2 Box Dosing Unit 5 SB LOW DOSE ASA EC 81 MG PO TBEC one tab three times weekly terazosin 2 MG Capsule Take 1 Cap by mouth at bedtime. 90 Cap 3 tretinoin (RETIN-A) 0.05 % cream APPLY NIGHTLY TO FACE DIRECTED,CAN MIX WITH PONDS 45 g 5 ALLERG IES: Acetaminophen; Aspirin; Cholestyramine; Lipitor [atorvastatin calcium]; Niacin; Simvastatin; and Zetia [ezetimibe] OBJECTIVE: GEN: Healthy, alert, no distress, appears oriented, pleasant and cooperative. SKIN: Detailed exam of hair, face including lids and lips, neck and bilateral upper ext. (arm, hand, fingers) completed and are normal except: 1. R midhelix, L cheek, R elbow, R dorsal hand - keratotic pink patches, small 2. L posterior helix - scar Pt declines gown ASSESS MENT/PLAN: 1. Actinic keratoses - Cryosurgery explained to the patient, verbal consent obtained, patient, siteand procedure verified, time-out called, and then cryotherapy was performed with Liquid Nitrogen via cryo spray unit to 4 lesions. Location noted in physical exam. Post op course explained. Continue tretinoin cream nightly to whole face. 2. Scar - Hx NMSC - no evidence of recurrence Discussed sun protection with patient including proper use of sunscreens and protective clothing. ABCDs explained. Follow-up: 6 months skin check and LN exam There were no barriers tolearning and no other pain was related to today's visit. The patient and/or person accompanying patient demonstrates understanding of the visit and treatment. Kim Kong MD 07/13/2017 9:48 AM Ref: SELF[[id number]] NO STREET ADDRESS AVAILABLE None (office) None (fax) PCP: SMITH DANIELLE [address] [place] [address] [place] [address] [phone] in this encounter Nursing Notes * Arya Singh, RN - 07/13/2017 9:48 AM EDT Formatting of this note may be different from the original. Chief Complaint Patient presents with FOLLOW UP Partial Skin Check. Has a couple lesions "here and there" that need frozen. History Update [place], [place], Papular Dermatitis Do you have any concerns about pain management for today's visit? No Living Will or Advance Directive for Health Care as noted on problem list. in this encounter Plan of Treatment Upcoming Encounters Date Type Specialty Care Team Description 07/31/2017 Office Visit Internal Medicine Smith Danielle MD [address] [place] [address] [place] [address] [phone] 09/03/2017 Office Visit Cardiology Alcon Lott PA-C [address] [place] [address] [phone] 01/11/2018 Office Visit Dermatology Kim Kong MD [address] [place] [address], [place] [address] [phone] Scheduled Tests Name Priority Associated Diagnoses Order S chedule SKIN LESION DESTRUC,PREMALIGNANT,1ST LESION Routine Actinic keratosis Ordered: 07/13/2017 SKIN LESION DESTRUC,PREMALIGNANT,2-14 LESIO Routine Actinic keratosis Ordered: 07/13/2017 Health Maintenance Due Date Last Done Comments [...] of this encounter Implants Implanted Type Area Optimization Analyst Device Identifier Expiration Date Model / Serial / Lot Marker Coronary AmAnywhere to Go-Sd - [id number] Implanted:Qty: 1 on 12/26/2010 N/A: Heart [employer] 10/13/2013 AM-SD / / [id number] Sut Steel 6 M654g - [id number] Implanted:Qty: 5 on 12/26/2010 Chest DO NOT USE 10/14/2015 M654G / / [id number] [facility] 225-241 - [id number] Implanted:Qty: 1 on 12/26/2010 Chest [employer] 225-241 / / [id number] as of this encounter Visit Diagnoses Diagnosis Actinic keratosis - Primary Hx of actinic keratosis Personal history of diseases of skin and subcutaneous tissue Scar conditions and fibrosis of skin Scar condition and fibrosis of skin Hx of nonmelanoma skin cance r Personal history of other malignant neoplasm of skin in this encounter Insurance Payer Benefit Plan / Group Subscriber ID Type Phone Address [facility] NO DRUG [id number] Medicare [phone] [address] [place] [phone] as of this encounter
--- OUTSIDE RECORDS SUMMARY | 2022-11-16 13:23 | External Medical Summary | Summary of Care ---
Author Name Unknown Organization [place] [address] Phone Care Team Providers Care Bottle Tester Name Role Phone Smith Orozco MD Primary Care Provider Unava ilable Reason for Visit * Reason Comments eRx-Medication Refill Encounter Details Date Type Department Care Team Description 05/30/2017 Refill Internal Medicine [address] [address] Smith Orozco MD [address] [place] [address] [place] [address] [phone] Type 2 diabetes mellitus with hemoglobin A1c [...] one pill each day Active Glucose Blood (Natural Power ConceptsTOUCH ULTRA BLUE) STRPIndications:Ty pe 2 diabetes mellitus [...] Active terazosin 2 MG CapsuleIndications :Atherosclerosis of [place] coronary artery of [place] heart without angina pectoris,BPH with obstruction/lower urinary [...] Active glipiZIDE XL (GLUCOTROL XL) 10 MG HO25Ecwvzfcxhyc:Ty pe 2 diabetes mellitus with hemoglobin A1c goal of less than 8.0% (HCC) TAKE 1 TABLET BY MOUTH 2 TIMES A DAY 180 Tab 1 06/01/2017 Active glipiZIDE XL (GLUCOTROL XL) 10 MG [id number]:Ty pe 2 diabetes mellitus with hemoglobin A1c [...] 8.0% ([facility]) 01/11/2009 Overview: Per Diabetes Taxonomy. ICD-10 update of inactive term ADVANCE DIRECTIVE INFORMATION 12/23/2006 Overview: No, Advance Directive brochure given to patient at prior appointment. CORONARY ATHEROSCLER. OF [place] CORONARY VESSEL 11/30/2001 Peptic ulcer GENERAL OSTEOARTHROSIS Multiple pulmonary nodules CKD (chronic kidney disease) stage 2, GF R 60-89 ml/min Complex renal cyst Overview: 3.8 cm; L as of this encounter Resolved Problems Problem Noted Date Resolved Date [employer] Other*[id number] 201004/22/2016 Overview: Study Titile: Genomics Markers for Patients with Cardiovascular Disease Project # [id number] PI: Amalia Kingsley MD Please call [phone] with study related questions HTN, goal below [...] hemoglobin A1c goal of less than 7.0% ([facility]) 01/11/2009 Overview: Per Diabetes Taxonomy. ICD-10 [...] Office Visit Dermatology Kim Kong MD [address] [facility] [place] [address] [phone] 07/31/2017 Office Visit Internal Medicine Smith Orozco MD [address] [place] [address] [place] [address] 09/03/2017 Office Visit Cardiology Alcon Lott PA-C [address] [facility] [place] [address] Health Maintenance Due Date [...] of this encounter Implants Implanted Type Area Probation And Patrol Agent Device Identifier Expiration Date Model / Serial / Lot Marker Coronary Amgm-Sd - [id number] Implanted:Qty: 1 on 12/26/2010 N/A: Heart [employer] 10/13/2013 AMGM-SD / / [id number] [employer] 6 M654g - [id number] Implanted:Qty: 5 on 12/26/2010 Chest DO NOT USE 10/14/2015 M654G / / [id number] [facility] 225-188 - [id number] Implanted:Qty: 1 on 12/26/2010 Chest [employer] 225-678 / / [id number] as of this encounter Visit Diagnoses Diagnosis Type 2 diabetes mellitus wit h hemoglobin A1c goal of less than 8.0% (HCC) in this encounter Insurance Payer Benefit Plan / Group Subscriber ID Type Phone Address [facility] NO DRUG [id number] Medicare [phone] [facility] [place] [address] as of this encounter
--- OUTSIDE RECORDS SUMMARY | 2022-11-16 13:23 | External Medical Summary | Summary of Care ---
Author Name Unknown Organization [place] [address] Phone Care Team Providers Care Cardiac Sonographer Name Role Phone Suzette Danielle MD Primary Care Provider + [phone] Reason for Visit * Reason Comments MEDICATION REFILL Encounter Details Date Type Department Care Team Description 04/06/2017 Refill Internal Medicine [address] [place] [address] Suzette Danielle MD [address] [place] [address] [facility] [place] [address] [phone] HTN, goal below 140/80 Allergies Active Allergy [...] Active glipiZIDE XL (GLUCOTROL XL) 10 MG UV76Ccipustqgsg:Ty pe 2 diabetes mellitus with hemoglobin A1c goal of less than 8.0% (HCC) TAKE 1 TABLET BY MOUTH 2 TIMES A DAY 180 Tab 1 12/09/2016 Active terazosin 2 MG CapsuleIndications :Atherosclerosis of [place] coronary artery of [place] heart without angina pectoris,BPH with obstruction/lower urinary [...] mouth daily. 90 Tab 1 04/06/2017 Active amLODIPine (NORVASC) 5 MG TabletIndications: HTN, goal below 140/80 TAKE ONE TABLET BY MOUTH DAILY 90 Tab 1 09/29/2016 8 Discontinued as [...] of less than 8.0% ([facility]) 01/11/2009 Overview: Per Diabetes Taxonomy. ICD-10 update of inactive term ADVANCE DIRECTIVE INFORMATION 12/23/2006 Overview: No, Advance Directive brochure given to patient at prior appointment. CORONARY ATHEROSCLER. OF [place] CORONARY VESSEL 11/30/2001 Peptic ulcer GENERAL OSTEOARTHROSIS Multiple pulmonary nodules CKD (chronic kidney disease) stage 2, GF R 60-89 ml/min Complex renal cyst Overview: 3.8 cm; L as of this encounter Resolved Problems Problem Noted Date Resolved Date [employer] Other*[id number] 201004/22/2016 Overview: Study Titile: Genomics Markers for Patients with Cardiovascular Disease Project # [id number] PI: Amalia Kingsley MD Please call [phone] with study related questions HTN, goal below [...] hemoglobin A1c goal of less than 7.0% ([facility]) 01/11/2009 Overview: Per Diabetes Taxonomy. ICD-10 [...] encounter Miscellaneous Notes * Telephone Encounter - Stepahn Lopez [facility] - 04/06/2017 10:53 AM EST Signed Prescriptions: Disp Refills amLODIPine (NORVASC) 5 MG Tablet 90 Tab 1 Sig: Take 1 Tab by mouth daily. Authorizing Provider: SUZETTE DANIELLE Ordering User: STEPHAN LOPEZ * Telephone Encounter - Riya Easley, inspector fibrous wallboard - 04/06/2017 8:26 AM EST Pending Prescriptions: Disp Refills amLODIPine (NORVASC) 5 MG Tablet 90 Tab 1 Sig: Take 1 Tab by mouth daily. Last Office Visit: 01/30/2017 Next Office Visit: 07/31/2017 Scheduled Provider(s): Suzette Danielle MD If no future appointments scheduled, and last appointment is greater than a year ago, please schedule patient for a follow-up appointment Last date the medication was ordered: 09/29/16 Phone number(s): [phone] (home) Labs: CREATININE-OUTSIDE LAB(MG/DL) Lucía Dt/Tm Resulted [...] 7.0* FINAL 01/24/16 9:17A 01/24/16 6.6* FINAL Thanks, Riya Easely Licensed Mental Health Professional Pharmacy Refill Call Center 04/06/2017,8:27 AM in this encounter Plan of Treatment Upcoming Encounters Date Type Specialty Care Team Description 07/13/2017 Office Visit Dermatology Kim Kong MD [address] [place] [address] [phone] 07/31/2017 Office Visit Internal Medicine Suzette Danielle MD [address] [place] [address] [place] [address] [phone] 09/03/2017 Office Visit Cardiology Alcon Lott PA-C [address] [facility] [place] [address] [phone] Health Maintenance Due Date Last Done Comments [...] of this encounter Implants Implanted Type Area Mover Device Identifier Expiration Date Model / Serial / Lot Marker Coronary Am-Sd - [id number] Implanted:Qty: 1 on 12/26/2010 N/A: Heart [employer] 10/13/2013 AM-SD / / [id number] Sut Steel 6 M654g - [id number] Implanted:Qty: 5 on 12/26/2010 Chest DO NOT USE 10/14/2015 M654G / / [id number] [facility] 225-765 - [id number] Implanted:Qty: 1 on 12/26/2010 Chest [employer] 225-476 / / [id number] as of this encounter Visit Diagnoses Diagnosis HTN, goal below 140/80 Unspecified essential hypertension in this encounter Insurance Payer Benefit Plan / Group Subscriber ID Type Phone Address [facility] [employer] [facility] CUSTOM NO DRUG [id number] Medicare [address] [place] [phone] as of this encounter
--- OUTSIDE RECORDS SUMMARY | 2022-11-16 13:23 | External Medical Summary | Summary of Care ---
Author Name Unknown Organization [place] [address] Phone Care Team Providers Care Stud Beef Cattle Farmer Name Role Phone Smith Orozco MD Primary Care Provider + [phone] Reason for Visit * Reason Comments Pre Cert/Prior Auth Encounter Details Date Type Department Care Team Description 03/27/2017 Telephone Internal Medicine [address] [address] Smith Orozco MD [address] [place] [address] [facility] [place] [address] [phone] Pre Cert/Prior Auth Allergies Active Allergy Reactions [...] one pill each day Active Glucose Blood (INTREorg SYSTEMSUCH ULTRA BLUE) STRPIndications:Type 2 diabetes mellitus with [...] Active glipiZIDE XL (GLUCOTROL XL) 10 MG NW07Mfucqqppgih:Type 2 diabetes mellitus with hemoglobin A1c goal of less than 8.0% (HCC) TAKE 1 TABLET BY MOUTH 2 TIMES A DAY 180 Tab 1 12/09/2016 Active terazosin 2 MG CapsuleIndications:A therosclerosis of [place] coronary artery of [...] without long-term current use of insulin ([facility]) 01/24/2016 Hx of actinic keratosis 10/12/2015 Ischemic [...] 8.0% ([facility]) 01/11/2009 Overview: Per Diabetes Taxonomy. ICD-10 update of inactive term ADVANCE DIRECTIVE INFORMATION 12/23/2006 Overview: No, Advance Directive brochure given to patient at prior appointment. CORONARY ATHEROSCLER. OF [place] CORONARY VESSEL 11/30/2001 Peptic ulcer GENERAL OSTEOARTHROSIS Multiple pulmonary nodules CKD (chronic kidney disease) stage 2, GF R 60-89 ml/min Complex renal cyst Overview: 3.8 cm; L as of this encounter Resolved Problems Problem Noted Date Resolved Date [employer] Card[employer] Research Other*[id number] 201004/22/2016 Overview: Study Titile: Genomics Markers for Patients with Cardiovascular Disease Project # [id number] PI: Amalia Kingsley MD Please call [phone] with study related questions HTN, goal below [...] than 7.0% ([facility]) 01/11/2009 Overview: Per Diabetes Taxonomy. ICD-10 update [...] name: Cl Reynolds Prescription carrier ID number: [id number] Subscriber name: Cl Reynolds Medication: tretinoin (RETIN-A) 0.05 What reason was given for needing a prior auth? (i.e. not on formulary,quantity exceeds limit...) not approved for patient for acne Pharmacy: [facility] Name of patient's Rx plan and phone number: [place] List medications patient has tried and failed for this condition and who prescribed it: none Patient stated his insurance will not cover this for Acne [facility] Refill Call Center 03/27/2017,9:32 AM in this encounter Plan of Treatment Upcoming Encounters Date Type Specialty Care Team Description 07/13/2017 Office Visit Dermatology Kim Kong MD [address] [facility] [place] [address] [phone] 07/31/2017 Office Visit Internal Medicine Smith Orozco MD [address] [place] [address] [place] [address] [phone] 09/03/2017 Office Visit Cardiology Alcon Lott PA-C [address] [facility] [place] [address] [phone] Health Maintenance Due Date Last Done Comments [...] of this encounter Implants Implanted Type Area Soils Analyst Device Identifier Expiration Date Model / Serial / Lot Marker Coronary Am-Sd - [id number] Implanted:Qty: 1 on 12/26/2010 N/A: Heart [employer] 10/13/2013 AMGM-SD / / [id number] Sut Steel 6 M654g - [id number] Implanted:Qty: 5 on 12/26/2010 Chest DO NOT USE 10/14/2015 M654G / / [id number] [employer] 225-241 - [id number] Implanted:Qty: 1 on 12/26/2010 Chest [employer] 225-026 / / [id number] as of this encounter Insurance Payer Benefit Plan / Group Subscriber ID Type Phone Address [facility] [employer] CUSTOM NO DRUG [id number] Medicare [phone] [place] [address] as of this encounter
--- OUTSIDE RECORDS SUMMARY | 2022-11-16 13:23 | External Medical Summary | Summary of Care ---
Author Name Unknown Organization [place] [address] Phone Care Team Providers Care Tariff Publishing Agent Name Role Phone Smith Danielle MD Primary Care Provider Reason for Visit * Reason Comments eRx-Medication Refill Encounter Details Date Type Department Care Team Description 07/30/2017 Refill Internal Medicine [address] [address] Smith Danielle MD [address] [place] [address] [place] [address] [phone] Type 2 diabetes mellitus with hemoglobin A1c goal of less than 8.0% ([facility])* Allergies Active Allergy Reactions Severity Noted Date [...] Active terazosin 2 MG CapsuleIndications :Atherosclerosis of [place] coronary artery of [place] heart without angina pectoris,BPH with obstruction/lower urinary [...] Active glipiZIDE XL (GLUCOTROL XL) 10 MG [id number]:Ty pe 2 diabetes mellitus with hemoglobin A1c [...] DX: E11.9 200 Strip 5 07/30/2017 Active Glucose Blood (ONETOUCH ULTRA BLUE) STRPIndications:Ty pe 2 diabetes mellitus with hemoglobin A1c goal of less than 8.0% (HCC) test twice a day DX: E11.9 200 Strip 5 07/25/2016 8 Discontinued ONETOUCH ULTRASOFT LANCETS MISCIndications:Ty pe 2 diabetes mellitus with hemoglobin A1c goal of less than 8.0% ([facility]) Use as directed 2 times a day. 2 Box Dosing Unit 5 07/25/2016 8 Discontinued as of this encounter Active [...] goal of less than 8.0% (HCC) 01/11/2009 Overview: Per Diabetes Taxonomy. ICD-10 update of inactive term ADVANCE DIRECTIVE INFORMATION 12/23/2006 Overview: No, Advance Directive brochure given to patient at prior appointment. CORONARY ATHEROSCLER. OF [place] CORONARY VESSEL 11/30/2001 Peptic ulcer GENERAL OSTEOARTHROSIS Multiple pulmonary nodules Complex renal cyst Overview: 3.8 cm; L as of this encounter Resolved Problems Problem Noted Date Resolved Date [employer] Cardio Research Other*[id number] 201004/22/2016 Overview: Study Titile: Genomics Markers for Patients with Cardiovascular Disease Project # [id number] PI: Amalia Kingsley MD Please call [phone] with study related questions HTN, goal below [...] goal of less than 7.0% ([facility]) 01/11/2009 Overview: Per Diabetes Taxonomy. ICD-10 [...] Telephone Encounter - Smith Danielle MD - 07/30/2017 11:25 AM EDT Signed Prescriptions: Disp Refills ONETOUCH ULTRASOFT LANCETS MISC 200 Ea*5 Sig: USE TO TEST DIRECTED 2 TIMES A DAY. Authorizing Provider: SMITH DANIELLE ONETOUCH ULTRA BLUE STRP 200 St*5 Sig: USE TO TEST TWICE A DAY DX: E11.9 Authorizing Provider: SMITH DANIELLE * Telephone Encounter - Lavinia Soto, KYLE - 07/30/2017 10:36 AM EDT Pending Prescriptions: Disp Refills ONETOUCH ULTRASOFT LANCETS MISC [Pharmacy*200 Ea*5 Sig: USE TO TEST DIRECTED 2 TIMES A DAY. ONETOUCH ULTRA BLUE STRP [Pharmacy Med Na*200 St*5 Sig: USE TO TEST TWICE A DAY DX: E11.9 * Telephone Encounter - Kasey Rosales, KYLE - 07/30/2017 10:31 AM EDT Pending Prescriptions: Disp Refills ONETOUCH ULTRASOFT LANCETS MISC [Pharmacy*200 Ea*5 Sig: USE TO TEST DIRECTED 2 TIMES A DAY. ONETOUCH ULTRA BLUE STRP [Pharmacy Med Na*200 St*5 Sig: USE TO TEST TWICE A DAY DX: E11.9 * Telephone Encounter - Kasey Rosales, KYLE - 07/30/2017 10:30 AM EDT Formatting of this note may be different from the original. Pending Prescriptions: Disp Refills ONETOUCH ULTRASOFT LANCETS MISC [Pharmacy*200 Ea*5 Sig: USE TO TEST DIRECTED 2 TIMES A DAY. ONETOUCH ULTRA BLUE STRP [Pharmacy Med Na*200 St*5 Sig: USE TO TEST TWICE A DAY DX: E11.9 Last Office Visit: 01/30/2017 Next Office Visit: 08/12/2017 Scheduled Provider(s): Smith Danielle MD Last date the medication was ordered: 07/25/16 Patient Active Problem List Diagnosis Code Peptic ulcer K27.9 GENERAL OSTEOARTHROSIS M15.9 CORONARY ATHEROSCLER. OF [place] CORONARY VESSEL I25.10 ADVANCE DIRECTIVE INFORMATION DM [...] term current use of insulin ([facility]) E11.22, N18.2 Hx of nonmelanoma skin cancer Z85.828 Labs: CREATININE-OUTSIDE LAB(MG/DL) Lucía Dt/Tm Resulted Value Status 12/01/16 12/03/16 1.00 FINAL POTASSIUM(mmol/L) Lucía Dt/Tm Resulted Value Status 10/27/16 9:32A 10/27/16 4.3 FINAL TSH(uIU/mL) Lucía Dt/Tm Resulted Value Status 08/22/13 11:51A 08/22/13 3.86 FINAL LDL (CALCULATED)(mg/dL) Lucía Dt/Tm Resulted Value Status 07/25/16 8:23A 07/25/16 143* FINAL LDL DIRECT(REFLEX)(mg/dL) Lucía Dt/Tm Resulted Value Status 07/25/16 8:23A 07/25/16 FINAL Value: NOT APPLICABLE ALT(U/L) Lucía Dt/Tm Resulted Value Status 07/08/13 7:57A 07/08/13 22 FINAL Hemoglobin AIC Results: HEMOGLOBIN, A1C(%) Lucía Dt/Tm Resulted Value Status 10/27/16 9:32A 10/27/16 6.4 FINAL 07/25/16 8:23A 07/25/16 7.0* FINAL 01/24/16 9:17A 01/24/16 6.6* FINAL in this encounter Plan of Treatment Upcoming Encounters Date Type Specialty Care Team Description 08/12/2017 Office Visit Internal Medicine Smith Danielle MD [address] [place] [address] [place] [address] [phone] 09/03/2017 Office Visit Cardiology Alcon Lott PA-C 132 [facility] [place] [address] [phone] 01/11/2018 Office Visit Dermatology Kim Kong MD [address] [place], [place] [address] [address] [phone] Health Maintenance Due Date Last Done Comments [...] of this encounter Implants Implanted Type Area Dive Superintendent Device Identifier Expiration Date Model / Serial / Lot Marker Coronary Am-Sd - [id number] Implanted:Qty: 1 on 12/26/2010 N/A: Heart [employer] 10/13/2013 AMGM-SD / / [id number] Sut Steel 6 M654g - [id number] Implanted:Qty: 5 on 12/26/2010 Chest DO NOT USE 10/14/2015 M654G / / [id number] [facility] 225-103 - [id number] Implanted:Qty: 1 on 12/26/2010 Chest [employer] 225-988 / / [id number] as of this encounter Visit Diagnoses Diagnosis Type 2 diabetes mellitus wit h hemoglobin A1c goal of less than 8.0% (HCC) - Primary in this encounter
--- OUTSIDE RECORDS SUMMARY | 2022-11-16 13:24 | External Medical Summary ---
Author Name Unknown Address [address] [place] [address] [place] [address] Phone Organization K08:[address] [place] [address] Laboratory Report Ordering Provider Test Date Status LOLIS BRADFORD 07/25/2016 08:23:00 Final Observation Date Value Abnormality Reference Status Fasting status - Reported 07/25/2016 08:27 PATIENT NOT FASTING Final Triglyceride 07/25/2016 14:18 147 <200 Final Performing Location [address] [place] [address]
--- OUTSIDE RECORDS SUMMARY | 2022-11-16 13:24 | External Medical Summary | Summary of Care ---
Author Name Unknown Organization [place] [address] Phone Care Team Providers Care Actuary Clerk Name Role Phone Smith Orozco MD Primary Care Provider [phone] Reason for Referral * Precert (Routine) Status Reason Specialty Diagnoses / Procedures Referred By Contact Referred To Contact Closed Precert Cardiac Studies Diagnoses Ischemic cardiomyopathy Nonrheumatic aortic valve insufficiency Procedures ECHO, COMPLETE (2D), TRANS-THORACIC Alcon Lott PA-C [address] [place] [address] Reason for Visit * Reason Comments Cardiology Study Echo * Precert (Routine) Status Reason Specialty Diagnoses / Procedures Referred By Contact Referred To Contact Closed Precert Cardiac Studies Diagnoses Ischemic cardiomyopathy Nonrheumatic aortic valve insufficiency Procedures ECHO, COMPLETE (2D), TRANS-THORACIC Alcon Lott PA-C [address] [place] [address] Encounter Details Date Type Department Care Team Description 02/27/2017 Cardiac Studies Cardiac Studies [facility] [address] [place] [address] [facility] Teletypewriter Installer [address] [place] [address] Ischemic cardiomyopathy*;Nonrhe umatic aortic valve insufficiency Allergies Active Allergy Reactions Severity Noted Date [...] PO TABS one pill each day Active tretinoin (RETIN-A) 0.05 % creamIndications:Act inic keratosis APPLY NIGHTLY TO FACE DIRECTED,CAN MIX WITH PONDS 45 g 2 02/15/2015 Active Glucose Blood (ONETOUCH ULTRA BLUE) STRPIndications:Type [...] Active glipiZIDE XL (GLUCOTROL XL) 10 MG KQ83Lbsyikbyncn:Type 2 diabetes mellitus with hemoglobin A1c goal of less than 8.0% ([facility]) TAKE 1 TABLET BY MOUTH 2 TIMES A DAY 180 Tab 1 12/09/2016 Active terazosin (HYTRIN) 1 MG CapsuleIndications:A therosclerosis of [place] coronary artery of [place] heart without angina pectoris,BPH with obstruction/lower urinary tract symptoms,Essential hypertension with goal blood pressure less than 140/90 TAKE 1 CAPSULE BY MOUTH AT BEDTIME. 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 ICD-10 update of inactive term ADVANCE DIRECTIVE INFORMATION 12/23/2006 Overview: No, Advance Directive brochure given to patient at prior appointment. CORONARY ATHEROSCLER. OF [place] CORONARY VESSEL 11/30/2001 Peptic ulcer GENERAL OSTEOARTHROSIS Multiple pulmonary nodules CKD (chronic kidney disease) stage 2, GF R 60-89 ml/min Complex renal cyst Overview: 3.8 cm; L as of this encounter Resolved Problems Problem Noted Date Resolved Date [employer] Card[employer] Research Other*[id number] 201004/22/2016 Overview: Study Titile: Genomics Markers for Patients with Cardiovascular Disease Project # [id number] PI: Amalia Kingsley MD Please call [phone] with study related questions HTN, goal below [...] goal of less than 7.0% ([facility]) 01/11/2009 Overview: Per Diabetes Taxonomy. ICD-10 [...] as of this encounter Progress Notes * Suazn Alcantar RN - 02/27/2017 12:40 PM EST Letter sent. 02/27/2017 * Alcon Lott PA-C - 02/27/2017 12:34 PM EST stable * Laura Beltrán TECH - 02/27/2017 9:30 AM EST Echo completed today by aviation technician aircraft per provider order. in this encounter Plan of Treatment Upcoming Encounters Date Type Specialty Care Team Description 03/05/2017 Office Visit Cardiology [facility]con [facility]ott [facility]C [facility] [place] [address] [phone] Nurse As[facility] [address] [place] [address] [phone] 07/13/2017 Office Visit Dermatology Kim Kong MD [address] [place] [address] [phone] 07/31/2017 Office Visit Internal Medicine Smith Orozco MD [address] [place] [address] [place] [phone] Health Maintenance Due Date Last Done Comments [...] of this encounter Implants Implanted Type Area Cup Trimming Machine Operator Device Identifier Expiration Date Model / Serial / Lot Marker Coronary Amgm-Sd - [id number] Implanted:Qty: 1 on 12/26/2010 N/A: Heart [employer] 10/13/2013 AMGM-SD / / [id number] Sut Steel 6 M654g - [id number] Implanted:Qty: 5 on 12/26/2010 Chest DO NOT USE 10/14/2015 M654G / / [id number] Band Ankur 225-745 - [id number] Implanted:Qty: 1 on 12/26/2010 Chest [employer] 225-276 / / [id number] as of this encounter Results * ECHO, COMPLETE (2D), TRANS-THORACIC (02/27/2017 8:52 AM) Specimen Performing Laborator y [facility] in this encounter Visit Diagnoses Diagnosis Ischemic cardiomyopathy - Pr imary Other specified forms of chronic ischemic heart disease Nonrheumatic aortic valve in sufficiency Aortic valve disorders in this encounter Insurance Payer Benefit Plan / Group Subscriber ID Type Phone Address [facility] [employer] [facility] OSBALDO MATHEW CUSTOM NO DRUG [id number] Medicare [phone] [place] [address] as of this encounter
--- OUTSIDE RECORDS SUMMARY | 2022-11-16 13:24 | External Medical Summary ---
Author Name Unknown Address [facility] [address] Phone Organization K01:[place] [address] [place] [id number] Laboratory Report Ordering Provider Test Date Status LOLIS BRADFORD 10/27/2016 09:32:00 Final Observation Date Value Abnormality Reference Status HbA1C 10/27/2016 16:41 6.4 4.0-6.4 Fin al Performing Location [address] [address]
--- OUTSIDE RECORDS SUMMARY | 2022-11-16 13:24 | External Medical Summary ---
Author Name Unknown Address [address] [place] [id number] Phone Organization K01:[facility] [address] [place] [id number] Laboratory Report Ordering Provider Test Date Status LOLIS BRADFORD 07/25/2016 08:23:00 Final Observation Date Value Abnormality Reference Status Albumin 07/25/2016 14:18 4.1 3.8-5.0 Fin al Calcium 07/25/2016 14:18 9.7 8.4-10.2 Fin al CO2 07/25/2016 14:18 27 22-32 Fin al Cl 07/25/2016 14:18 100 98-107 Fin al Creatinine 07/25/2016 14:18 1.0 0.6-1.2 Fi nal Performing Location [facility] [address] [place] [id number]
--- OUTSIDE RECORDS SUMMARY | 2022-11-16 13:24 | External Medical Summary ---
Author Name Unknown Address [address] [place] [address] Phone Organization K01:[facility] [address] [facility] [address] Laboratory Report Ordering Provider Test Date Status MARÍA FRAZIER MD 01/28/2016 12:40:00 Final Obs # Observation Date Value Abnormality Reference Status Performing Location 0 Albumin, Urine 6 21:31 11.42 Final [facility] [address] [facility] [address] 1 Creatinine [Moles/volume] in Urine 6 21:31 30 Final 2 Microalbumin / Creatinine Ratio 6 21:31 381 Above high normal <30 Final
--- OUTSIDE RECORDS SUMMARY | 2022-11-16 13:24 | External Medical Summary ---
Author Name Unknown Address [address] [place] [address] Phone Organization K01:[facility] [address] [facility] [address] Laboratory Report Ordering Provider Test Date Status MARÍA FRAZIER MD 01/28/2016 12:40:00 Final Obs # Observation Date Value Abnormality Reference Status Performing Location 0 Color of Urine by Auto 01/28/20 21:12 STRAW Abnormal YEL Final [facility] [address] [facility] [address] 1 Clarity, Urine 01/28/20 21:12 CLEAR CLEAR Final 2 Glucose [Mass/volume] in Urine by Automated test strip 01/28/20 21:12 NEGATIVE NEG Final 3 Bilirubin.total [Presence] in Urine by Automated test strip 01/28/20 21:12 NEGATIVE NEG Final 4 Ketones [Mass/volume] in Urine by Automated test strip 01/28/20 16 21:12 NEGATIVE NEG Final 5 Specific gravity, Urine 01/28/20 21:12 1.008 1.003-1.030 Final 6 Hemoglobin [Presence] in Urine by Automated test strip 01/28/20 21:12 NEGATIVE NEG Final 7 pH, Urine 01/28/20 21:12 6.5 5.0-7.5 Final 8 Protein [Mass/volume] in Urine by Automated test strip 01/28/20 21:12 TRACE Abnormal NEG Final 9 Urobilinogen [Mass/volume] in Urine by Automated test strip 01/28/20 16 21:12 NORMAL NORM Final 10 Nitrite [Presence] in Urine by Automated test strip 01/28/20 16 21:12 NEGATIVE NEG Final 11 Leukocyte esterase [Presence] in Urine by Automated test strip 01/28/20 16 21:12 NEGATIVE NEG Final 12 Bacteria [Presence] in Urine by Automated 01/28/20 16 21:12 FEW (1-24) Abnormal NONE Final 13 Leukocytes [#/area] in Urine sediment by Automated count 01/28/20 16 21:12 0-2 U02 Final 14 Erythrocytes [#/area] in Urine sediment by Automated count 01/28/20 16 21:12 0-2 U02 Final
--- OUTSIDE RECORDS SUMMARY | 2022-11-16 13:24 | External Medical Summary ---
Author Name Unknown Address [address] [id number] Phone Organization K01:[facility] [address] [id number] Laboratory Report Ordering Provider Test Date Status WESLEY BRADFORDAFIA 10/27/2016 09:32:00 Final Observation Date Value Abnormality Reference Status BUN 10/27/2016 23:39 24 Above high normal 6-20 Final Creatinine 10/27/2016 23:39 1.1 0.6-1.2 Fi nal Performing Location [facility] [address] [id number]
--- OUTSIDE RECORDS SUMMARY | 2022-11-16 13:24 | External Medical Summary | Summary of Care ---
Author Name Unknown Organization [place] [address] Phone Care Team Providers Care Bioengineer Name Role Phone Smith Orozco MD Primary Care Provider [phone] Reason for Referral * Evaluate & Treat - Unlimited Visits (Within 10 days (routine)) Status Reason Specialty Diagnoses / Procedures Referred By Contact Referred To Contact Authorized Specialty Services Required Optometry Diagnoses DM type 2 nursing care encounter (HCC) Smith Orozco MD [address] [place] [address] [place] Reason for Visit * Reason Comments STATUS CHECK Encounter Details Date Type Department Care Team Description 01/30/2017 Office Visit Internal Medicine [address] [address] Smith Orozco MD [address] [place] [address] [place] [phone] Type 2 diabetes mellitus with hemoglobin A1c goal of less than 8.0% ([facility])*;DM type 2 nursing care encounter ([facility]);Type 2 diabetes mellitus with stage 2 chronic kidney disease, without long-term current use of insulin (HCC);Atherosclerosis of [place] coronary artery of [place] heart without angina pectoris;Venous stasis ulcer of leg without varicose veins (HCC) Allergies Active Allergy Reactions Severity Noted [...] each day Active tretinoin (RETIN-A) 0.05 % creamIndications:A ctinic keratosis APPLY NIGHTLY TO FACE DIRECTED,CAN MIX WITH PONDS 45 g 2 02/15/2015 Active Glucose Blood (ONETOUCH ULTRA BLUE) STRPIndications:Ty [...] Active glipiZIDE XL (GLUCOTROL XL) 10 MG BR44Sorlrsskzec:Ty pe 2 diabetes mellitus with hemoglobin A1c goal of less than 8.0% ([facility]) TAKE 1 TABLET BY MOUTH 2 TIMES A DAY 180 Tab 1 12/09/2016 Active terazosin (HYTRIN) 1 MG CapsuleIndications :Atherosclerosis of [place] coronary artery of [place] heart without angina pectoris,BPH with obstruction/lower urinary tract symptoms,Essential hypertension with goal blood pressure less than 140/90 TAKE 1 CAPSULE BY MOUTH AT BEDTIME. 90 Cap 1 01/21/2017 Active mupirocin calcium (BACTROBAN) 2 % ointmentIndication s:Venous stasis ulcer of leg without varicose veins (HCC) Apply topically to affected area 3 times a day for 14 days. To affected area for up to 14 days. 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) 01/24/2016 Hx of actinic keratosis [...] 8.0% ([facility]) 01/11/2009 Overview: Per Diabetes Taxonomy. ICD-10 update of inactive term ADVANCE DIRECTIVE INFORMATION 12/23/2006 Overview: No, Advance Directive brochure given to patient at prior appointment. CORONARY ATHEROSCLER. OF [place] CORONARY VESSEL 11/30/2001 Peptic ulcer GENERAL OSTEOARTHROSIS Multiple pulmonary nodules CKD (chronic kidney disease) stage 2, GF R 60-89 ml/min Complex renal cyst Overview: 3.8 cm; L as of this encounter Resolved Problems Problem Noted Date Resolved Date [employer] Other*[id number] 201004/22/2016 Overview: Study Titile: Genomics Markers for Patients with Cardiovascular Disease Project # [id number] PI: Baljinder Hung MD Please call [phone] with study related questions HTN, goal below [...] hemoglobin A1c goal of less than 7.0% ([facility]) 01/11/2009 Overview: Per Diabetes Taxonomy. [...] Vital Sign Reading Time Taken Blood Pressure 132/60 01/30/2017 8:32 AM EST Pulse 56 01/30/2017 8:32 AM EST Temperature 36.1 C (97 F) 01/30/2017 8:3 2 AM EST Respiratory Rate 12 01/30/2017 8:32 AM EST Oxygen Saturation - - Inhaled Oxygen Concentration - - Weight 64.4 kg (142 lb) 01/30/2017 8:32 AM EST Height - - Body Mass Index 23.63 01/30/2017 8:32 AM EST in this encounter Instructions * Patient Instructions - Yohana Alcantara RN - 01/30/2017 8:32 AM EST Dear Cl Reynolds, The care of your [...] Address and Fax Number: Smith Orozco MD [facility] Internal Medicine [address] [id number] Diabetes: Keeping Feet Healthy Inspect your feet [...] calluses yourself. Talk to your doctor or property portfolio officer (a doctor who specializes in foot care) [...] the area doesnt appear to be healing. [phone] [employer], [address] [place] [address]. All rights reserved. This information is not intended as a substitute for professional medical care. Always follow your healthcare professional's instructions. in this encounter Progress Notes * Smith Orozco MD - 01/30/2017 9:00 AM EST Formatting of this note may be different from the original. Cl sees Derm and they are taking care of his skin. He does have a small sore on the left calf that he soaks in epsom salts and then covers with Vaseline. He had another sore that healed but he wasusing tape and got a new sore from the tape. He is leaving this sore open. No chest pain or dyspnea. Sugars good. He can't tolerate statins or beta blockers. Past Medical History: Diagnosis Date Acute [place], inferior wall, subsequent episode of care ([facility]) 1994 BPH with obstruction/lower urinary tract symptoms 11/01/2009 CKD (chronic kidney disease) stage 2, GFR 60-89 ml/min Coronary atherosclerosis of [place] coronary artery 11/30/2001 DM type 2, goal A1c below 7 Examination of eyes and vision 09/20/13 no diabetic or hypertensive retinopathy Generalized osteoarthritis HTN, goal below 140/90 Mixed dyslipidemia Multiple pulmonary nodules 03/20/13 Peptic ulcer Renal mass, left 2014 3.8 cm Type 2 diabetes mellitus with hemoglobin A1c goal of less than 8.0% ([facility]) 01/11/2009 Per Diabetes Taxonomy. ICD-10 update of inactive term Past Surgical History: Procedure Laterality Date CABG, ARTERIAL, SINGLE 12/26/2010 CORONARY ARTERY BYPASS GRAFT USING ARTERY 1 GRAFT performed by BERTHA SENIOR [place] [facility] CABG, ARTERY-VEIN, THREE 12/26/2010 CORONARY ARTERY BYPASS GRAFT ARTERIAL AND VENOUS 3 GRAFTS performed by BERTHA SENIOR at [place] [facility] [place] WITH IV CONTRAST 07/11/13 non calcified pulmonary nodules persist and are unchanged, calcified hile nodes unchanged, extensive atherosclerosis of cardiac vessels. CHEST CT WITH IV CONTRAST 01/04/14 stable pulmonary nodules and granulomas, 3.8 cm complex cyst left kidney CHEST CT WITH IV CONTRAST 12/19/14 4 mm nodule RUL, 7 mm nodule RML, stable, 3.6 cm left upper kidney cyst, stable CORONARY ANGIOGRAPHY W/LEFT HEART CATH 12/03/2010 CORONARY ANGIOGRAPHY W/LEFT HEART CATH performed by BALJINDER HUNG at [facility] DUPLEX CAROTID BILAT 09/22/13 dense calcificed plaque, <50% ICA stenosis, vertbrals antegrade ENDO,VIDEO ASSIST HARVEST EREN 12/26/2010 ENDOSCOPY VIDEO ASSISTED HARVEST VEIN performed by BERTHA SENIOR at [place] [facility] INFORMATION 1994 cardiac cath REPAIR INITIAL INGUINAL HERNIA REDUCIBLE AGE 5 OR MORE US AAA SCREEN, RADIOLOGY 08/19/13 maximum diameter 2 cm, no AAA Review of patient's allergies indicates: Allergen Reactions [...] Current Outpatient Prescriptions Medication Sig Dispense Refill terazosin (HYTRIN) 1 MG Capsule TAKE 1 CAPSULE BY MOUTH AT BEDTIME. 90 Cap 1 glipiZIDE XL (GLUCOTROL XL) 10 MG TB24 TAKE 1 TABLET BY MOUTH 2 TIMES A DAY 180 Tab 1 omeprazole (PRILOSEC) 20 MG CPDR TAKE ONE CAPSULE BY MOUTH DAILY ONE HOUR PRIOR TO THE FIRST MEAL OF THE DAY 90 Cap 1 MetFORMIN (GLUCOPHAGE) 1000 MG Tablet TAKE 1 TABLET BY MOUTH TWICE A DAY WITH MEALS 180 Tab 1 losartan (COZAAR) 50 MG Tablet TAKE ONE TABLET BY MOUTH TWICE A DAY 180 Tab 3 amLODIPine (NORVASC) 5 MG Tablet TAKE ONE TABLET BY MOUTH DAILY 90 Tab 1 finasteride (PROSCAR) 5 MG Tablet Take 1 Tab by mouth daily. 90 Tab 1 Glucose Blood (ONETOUCH ULTRA BLUE) STRP test twice a day DX: E11.9 200 Strip 5 ONETOUCH ULTRASOFT LANCETS MISC Use as directed 2 times a day. 2 Box Dosing Unit 5 tretinoin (RETIN-A) 0.05 % cream APPLY NIGHTLY TO FACE DIRECTED,CAN MIX WITH PONDS 45 g 2 FLUOROURACIL 5 % EX CREA apply at night to scaly pink spots for 1-2 weeks, wash off in AM 30 g 1 MULTI-VITAMIN PO TABS one pill each [...] older)(Boostrix) 08/05/2012 Varicella Zoster Vaccine (Adult) 11/15/2011 LIPID PANEL WITH DIRECT LDL IF TG ABOVE 400 MG/DL Lucía Dt/Tm Resulted Value Status HOURS FASTING (hours) 07/25/16 8:23A 07/25/16 F Value: PATIENT NOT FASTING TRIGLYCERIDES (mg/dL) 07/25/16 8:23A 07/25/16 147 F CHOLESTEROL (mg/dL) 07/25/16 8:23A 07/25/16 229* F HDL (mg/dL) 07/25/16 8:23A 07/25/16 57 F CHOL/HDL RATIO ( ) 07/25/16 8:23A 07/25/16 4.0 F LDL (CALCULATED) (mg/dL) 07/25/16 8:A 07/25/16 143* F LDL DIRECT(REFLEX) (mg/dL) 07/25/16 8:23A 07/25/16 F Value: NOT APPLICABLE BASIC METAB PANEL, BMP Lucía Dt/Tm Resulted Value Status BUN (mg/dL) 10/27/16 9:32A 10/27/16 24* F CREATININE (mg/dL) 10/27/16 9:32A 10/27/16 1.1 F SODIUM (mmol/L) 10/27/16 9:32A 10/27/16 140 F POTASSIUM (mmol/L) 10/27/16 9:32A 10/27/16 4.3 F CHLORIDE (mmol/L) 10/27/16 9:32A 10/27/16 99 F CO2 (mmol/L) 10/27/16 9:32A 10/27/16 25 F ANION GAP (mmol/L) 10/27/16 9:32A 10/27/16 16* F GLUCOSE (mg/dL) 10/27/16 9:32A 10/27/16 155* F CALCIUM (mg/dL) 10/27/16 9:32A 10/27/16 9.7 F E GLOM FILT RATE ( ) 10/27/16 9:32A 8/14/17 >60.0 F HEMOGLOBIN, A1C(%) Lucía Dt/Tm Resulted Value Status 10/27/16 9:32A 10/27/16 6.4 FINAL 07/25/16 8:23A 07/25/16 7.0* FINAL 01/24/16 9:17A 01/24/16 6.6* FINAL O: Blood pressure 132/60, pulse 56, temperature 36.1 C (97 F), resp. rate 12, weight 64.4 kg (142 lb). General appearance: well developed, well nourished and in no acute distress. Neck is supple withoutadenopathy or thyromegaly. Chest is symmetrical and moves normally. The lungs are clear without wheezes, rales, rhonchi or rubs, and the heart is regular without murmurs or gallops, or ectopy. PMI not displaced. He does have a small open sore on the inside of the left calf A: E11.9 Type 2 diabetes mellitus with hemoglobin a1c goal of less than 8.0% ([facility]) (primary encounter diagnosis) E11.9 Dm type 2 nursing care encounter ([facility]) Plan: Optometry (diabetes-extended) referral op Diabetic eye exam Diabetes foot exam E11.22, N18.2 Type 2 diabetes mellitus with stage 2 chronic kidney disease, without long-term current use of insulin ([facility]) I25.10 Atherosclerosis of [place] coronary artery of [place] heart without angina pectoris I87.2, L97.909 Venous stasis ulcer of leg without varicose veins ([facility]) Plan: Mupirocin 2 % ex oint Sig:Apply topically to affected area 3 times a day for 14 days. to affected area for up to 14 days. Follow up: Return in about 6 months (around 07/30/2017). Continue other meds as before. * Yohana Alcantara RN - 01/30/2017 8:32 AM EST The importance of having a yearly diabetic eye exam has been discussed with patient. Order and Referral placed along with patient instructions. Provider made aware. Yohana Alcantara RN DM Foot Exam completed today. Provider aware. Yohana Alcantara RN Socks and Shoes Removed for Annual Diabetic [...] monofilament pressure on plantar surface of foot in this encounter Plan of Treatment Upcoming Encounters Date Type Specialty Care Team Description 02/27/2017 Cardiac Studies Cardiac Studies [facility] Software Test Specialist [address] [place] [address] 03/05/2017 Office Visit Cardiology [facility] [address] [facility] [address] [phone] Asaf, Nurse Cardiology [address] [place] [address] [phone] 07/13/2017 Office Visit Dermatology Kim Kong MD [address] [place] [address], [place] [address] [phone] 07/31/2017 Office Visit Internal Medicine Smith Orozco MD [address] [place] [address] [place] [phone] Scheduled Referrals Name Priority Associated Diagnoses Order S chedule OPTOMETRY (DIABETES-EXTENDED) REFERRAL OP Within 10 days (routine) DM type 2 nursing care encounter (HCC) Ordered: 01/30/2017 Health Maintenance Due Date Last Done Comments FOBT ANNUALLY,AGES 18-100 11/18/20132012, 11/27/2010, 11/22/2009, Additional history exists *ADVANCE DIRECTIVE NOT ON FILE 04/06/2014 DIABETES-EYE EXAM 10/09/2016 10/10/2015, , 09/20/2013, Additional history exists DIABETES-FOOT EXAM 01/23/2017 01/24/2016, 0 04/17/2015, 07/03/2014, Additional history exists DIABETES-HGBA1C EVERY 6 MONTHS 04/29/2017 0 10/27/2016, 07/25/2016, 01/24/2016, Additional history exists DIABETES-LDL EVERY 12 MONTHS 07/25/201702/2017, 02/14/2015, 06/29/2014, Additional history exists DIABETES-URINE MICROALBUMIN EVERY 12 MONTHS 10/27/2017 10/27/2016, 09/18/2016, 01/28/2016, Additional history exists TETANUS EVERY 10 YEARS-TDAP (BOOSTRIX OR ADACEL) SUGGESTED IF NOT RECEIVED IN THE PAST. 08/05/2022 08/05/2012, 03/16/2003 PNEUMOCOCCAL ADULT 65 YRS AND OVER Completed 10/16/2015, 12/15/2006, 04/01/2002 Influenza Vaccine (FLU shot) Completed 10/2016, 11/27/2015, 12/04/2014, Additional history exists as of this encounter Implants Implanted Type Area Artist Mannequin Coloring Device Identifier Expiration Date Model / Serial / Lot Marker Coronary Am-Sd - [id number] Implanted:Qty: 1 on 12/26/2010 N/A: Heart [employer] 10/13/2013 AM-SD / / [id number] Sut Steel 6 M654g - [id number] Implanted:Qty: 5 on 12/26/2010 Chest DO NOT USE 10/14/2015 M654G / / [id number] [facility] 225-889 - [id number] Implanted:Qty: 1 on 12/26/2010 Chest [employer] 225-443 / / [id number] as of this encounter Visit Diagnoses Diagnosis Type 2 diabetes mellitus wit h hemoglobin A1c goal of less than 8.0% ([facility]) - Primary DM type 2 nursing care encou nter ([facility]) Type II or unspecified type diabetes mellitus without mention of complication, not stated as uncontrolled Type 2 diabetes mellitus wit h stage 2 chronic kidney disease, without long-term current use of insulin (HCC) Atherosclerosis of [place] co ronary artery of [place] heart without angina pectoris Venous stasis ulcer of leg w ithout varicose veins (HCC) Unspecified venous (peripheral) insufficiency in this encounter Insurance Payer Benefit Plan / Group Subscriber ID Type Phone Address [facility] CUST[employer] NO DRUG [id number] Medicare [address] [place] [address] as of this encounter
--- OUTSIDE RECORDS SUMMARY | 2022-11-16 13:24 | External Medical Summary | Summary of Care ---
Author Name Unknown Organization [place] [address] Phone Care Team Providers Care Event Host Name Role Phone Smith Orozco MD Primary Care Provider [phone] Reason for Visit * Reason Comments eRx-Medication Refill Encounter Details Date Type Department Care Team Description 01/21/2017 Refill Internal Medicine [address] [address] Smith Orozco MD [address] [place], [place] [address] [address] [phone] Atherosclerosis of [place] coronary artery of [place] heart without angina pectoris;BPH with obstruction/lower urinary tract symptoms;Essential hypertension with goal blood pressure less than [...] PO TABS one pill each day Active FLUOROURACIL 5 % EX CREAIndications:Ac tinic keratosis apply at night to scaly pink spots for 1-2 weeks, wash off in AM 30 g 1 07/25/2013 Active tretinoin (RETIN-A) 0.05 % creamIndications:A ctinic [...] Active glipiZIDE XL (GLUCOTROL XL) 10 MG AL38Hzydedzjwxg:Ty pe 2 diabetes mellitus with hemoglobin A1c goal of less than 8.0% (HCC) TAKE 1 TABLET BY MOUTH 2 TIMES A DAY 180 Tab 1 12/09/2016 Active terazosin (HYTRIN) 1 MG CapsuleIndications :Atherosclerosis of [place] coronary artery of [place] heart without angina pectoris,BPH with obstruction/lower urinary tract symptoms,Essential hypertension with goal blood pressure less than 140/90 TAKE 1 CAPSULE BY MOUTH AT BEDTIME. 90 Cap 1 01/21/2017 Active terazosin (HYTRIN) 1 MG CapsuleIndications :Atherosclerosis of [place] coronary artery of [place] heart without angina pectoris,BPH with obstruction/lower urinary tract symptoms,Essential hypertension with goal blood pressure less than 140/90 TAKE 1 CAPSULE BY MOUTH AT BEDTIME. 90 Cap 1 07/25/2016 7 Discontinued as of this encounter Active Problems Problem Noted Date Hx of nonmelanoma skin cancer 11/19/2016 Overview: L superior posterior helix SCC 09/2016 Type 2 diabetes mellitus wit h stage 2 chronic kidney disease, without long-term current use of insulin ([facility]) 01/24/2016 Hx of actinic keratosis 10/12/2015 [...] goal of less than 8.0% ([facility]) 01/11/2009 Overview: Per Diabetes Taxonomy. ICD-10 update of inactive term ADVANCE DIRECTIVE INFORMATION 12/23/2006 Overview: No, Advance Directive brochure given to patient at prior appointment. CORONARY ATHEROSCLER. OF [place] CORONARY VESSEL 11/30/2001 Peptic ulcer GENERAL OSTEOARTHROSIS Multiple pulmonary nodules CKD (chronic kidney disease) stage 2, GF R 60-89 ml/min Complex renal cyst Overview: 3.8 cm; L as of this encounter Resolved Problems Problem Noted Date Resolved Date [employer] Other*[id number] 201004/22/2016 Overview: Study Titile: Genomics Markers for Patients with Cardiovascular Disease Project # [id number] PI: Amalia Kingsley MD Please call [phone] with study related questions HTN, goal below [...] A1c goal of less than 7.0% ([facility]) 01/11/2009 Overview: Per Diabetes Taxonomy. ICD-10 [...] Encounters Date Type Specialty Care Team Description 01/30/2017 Office Visit Internal Medicine Smith Orozco MD [address] [place] [address] [place] [address] [phone] 02/27/2017 Cardiac Studies Cardiac Studies [address] [place] [address] 03/05/2017 Office Visit Cardiology Alcon Lott PA-C [address] [place] [address] [phone] Asaf, Nurse Cardiology [address] [place] [address] [phone] 07/13/2017 Office Visit Dermatology Kim Kong MD [address] [place] [address] [phone] Health Maintenance Due Date Last Done Comments [...] of this encounter Implants Implanted Type Area Hotel Houseman Device Identifier Expiration Date Model / Serial / Lot Marker Coronary [facility]-Sd - [id number] Implanted:Qty: 1 on 12/26/2010 N/A: Heart [employer] 10/13/2013 AM-SD / / [id number] S[employer] 6 M654g - [id number] Implanted:Qty: 5 on 12/26/2010 Chest DO NOT USE 10/14/2015 M654G / / [id number] Alonso Pascual 225-601 - [id number] Implanted:Qty: 1 on 12/26/2010 Chest [employer] 225-684 / / [id number] as of this encounter Visit Diagnoses Diagnosis Atherosclerosis of [place] co ronary artery of [place] heart without angina pectoris BPH with obstruction/lower u rinary tract symptoms Hypertrophy of prostate with urinary obstruction and other lower urinary tract symptoms (LUTS) Essential hypertension with goal blood pressure less than 140/90 in this encounter Insurance Payer Benefit Plan / Group Subscriber ID Type Phone Address [facility] [employer]UST[employer] NO DRUG [id number] Medicare [phone] [place] [address] as of this encounter
--- OUTSIDE RECORDS SUMMARY | 2022-11-16 13:24 | External Medical Summary ---
Author Name Unknown Address [address] [place] [address] [place] [address] Phone Organization K08:[address] [place] [address] Laboratory Report Ordering Provider Test Date Status MARÍA FRAZIER 09/18/2016 09:18:00 Final Observation Date Value Abnormality Reference Status Color of Urine by Auto 09/18/2016 10:07 YELLOW YEL Final Clarity, Urine 09/18/2016 10:07 CLEAR CLEAR Final Glucose [Mass/volume] in Urine by Automated test strip 09/18/2016 10:07 NEGATIVE NEG Final Bilirubin, Urine 09/18/2016 10:07 NEGATIVE NEG Final Ketones [Mass/volume] in Urine by Automated test strip 09/18/2016 10:07 NEGATIVE NEG Final Specific gravity, Urine 09/18/2016 10:07 1.010 1.003-1.030 Final Hemoglobin, qual. UA 09/18/2016 10:07 NEGATIVE NE G Final pH, Urine 09/18/2016 10:07 7.0 5.0-7.5 Fin al Protein [Mass/volume] in Urine by Automated test strip 09/18/2016 10:07 NEGATIVE NEG Final Urobilinogen [Mass/volume] in Urine by Automated test strip 09/18/2016 10:07 NORMAL NORM Final Nitrite, Urine 09/18/2016 10:07 NEGATIVE NEG Final Leukocyte Esterase, Urine 09/18/2016 10:07 NEGATIVE NEG Final Bacteria [#/area] in Urine sediment by Microscopy high power field 09/18/2016 10:07 NONE NONE Final WBC, Urine 09/18/2016 10:07 0-2 U02 Fi nal RBC, Urine 09/18/2016 10:07 0-2 U02 Fi nal Performing Location [address] [place] [address]
--- OUTSIDE RECORDS SUMMARY | 2022-11-16 13:24 | External Medical Summary ---
Author Name Unknown Address [facility] [place] [address] Phone Organization K[facility] [address] [address] Laboratory Report Ordering Provider Test Date Status MARÍA FRAZIER MD 01/28/2016 12:40:00 Final Obs # Observation Date Value Abnormality Reference Status Performing Location 0 Albumin 01/28/2016 21:25 4.2 3.8-5.0 Final [facility] Medic [facility] [address] [facility] [address]
--- OUTSIDE RECORDS SUMMARY | 2022-11-16 13:24 | External Medical Summary | Summary of Care ---
Author Name Unknown Organization [place] [address] Phone Care Team Providers Care Scalehouse Attendant Name Role Phone Smith Orozco MD Primary Care Provider [phone] Reason for Visit * Reason Comments APPOINTMENT Optometry Encounter Details Date Type Department Care Team Description 01/30/2017 Telephone Internal Medicine [address] [address] Smith Orozco MD [address] [place], [place] [address] [address] [phone] APPOINTMENT (Optometry ) Allergies Active Allergy Reactions [...] Active glipiZIDE XL (GLUCOTROL XL) 10 MG [id number]:Ty pe 2 diabetes mellitus with hemoglobin A1c [...] long-term current use of insulin ([facility]) 01/24/2016 Hx of actinic keratosis [...] 8.0% ([facility]) 01/11/2009 Overview: Per Diabetes Taxonomy. ICD-10 update of inactive term ADVANCE DIRECTIVE INFORMATION 12/23/2006 Overview: No, Advance Directive brochure given to patient at prior appointment. CORONARY ATHEROSCLER. OF [place] CORONARY VESSEL 11/30/2001 Peptic ulcer GENERAL OSTEOARTHROSIS Multiple pulmonary nodules CKD (chronic kidney disease) stage 2, GF R 60-89 ml/min Complex renal cyst Overview: 3.8 cm; L as of this encounter Resolved Problems Problem Noted Date Resolved Date [employer] Card[employer] Research Other*[id number] 201004/22/2016 Overview: Study Titile: Genomics Markers for Patients with Cardiovascular Disease Project # [id number] PI: Amalia Kingsley MD Please call [phone] with study related questions HTN, goal below [...] goal of less than 7.0% ([facility]) 01/11/2009 Overview: Per Diabetes Taxonomy. [...] Office Visit Internal Medicine Smith Orozco MD [address] [place] [address] [place] [id number] Type 2 diabetes mellitus with hemoglobin A1c goal of less than 8.0% ([facility])*;DM type 2 nursing care encounter (HCC);Type 2 diabetes mellitus with stage 2 chronic kidney disease, without long-term current use of insulin (HCC);Atherosclerosi s of [place] coronary artery of [place] heart without angina pectoris;Venous stasis ulcer of leg without varicose veins (HCC) 02/27/2017 Cardiac Studies Cardiac Studies Asaf, Machine I Trimmer [address] [place] [address] 03/05/2017 Office Visit Cardiology Alcon Lott PA-C [address] [place] [address] [phone] Asaf, Nurse Cardiology [address] [place] [address] [phone] 07/13/2017 Office Visit Dermatology Kim Kong MD [address] [place] [address] [phone] 07/31/2017 Office Visit Internal Medicine Smith Orozco MD [address] [place] [address] [place] [address] [phone] Health Maintenance Due Date Last Done Comments [...] of this encounter Implants Implanted Type Area Hvac Engineer Device Identifier Expiration Date Model / Serial / Lot Marker Coronary [facility] - [id number] Implanted:Qty: 1 on 12/26/2010 N/A: Heart [employer] 10/13/2013 [facility] / / [id number] Sut Steel 6 M654g - [id number] Implanted:Qty: 5 on 12/26/2010 Chest DO NOT USE 10/14/2015 M654G / / [id number] [facility] 225-241 - [id number] Implanted:Qty: 1 on 12/26/2010 Chest [employer] 225-516 / / [id number] as of this encounter Insurance Payer Benefit Plan / Group Subscriber ID Type Phone Address [employer] [facility] CUSTOM NO DRUG [id number] Medicare [phone] [address] [facility] [place] [address] as of this encounter
--- OUTSIDE RECORDS SUMMARY | 2022-11-16 13:24 | External Medical Summary | Summary of Care ---
Author Name Unknown Organization [place] [address] Phone Care Team Providers Care Tank Charger Name Role Phone Smith Orozco MD Primary Care Provider [phone] Reason for Visit * Reason Comments FOLLOW UP Encounter Details Date Type Department Care Team Description 03/05/2017 Office Visit Cardiology [facility] [address] [place] [address] Alcon Lott PA-C [address] [facility] [place] [address] [phone] Asaf, Cardiology [address] [place] [address] [phone] Atherosclerosis of [place] coronary artery of [place] heart without angina pectoris*;Ischemic cardiomyopathy;Dyslipid emia, goal LDL below 70;Statin intolerance;BPH with obstruction/lower urinary tract symptoms;Essential hypertension with [...] DX: E11.9 200 Strip 5 07/25/2016 Active [facility] InstituteTOUCH ULTRASOFT LANCETS MISCIndications:Ty pe 2 diabetes mellitus [...] Active glipiZIDE XL (GLUCOTROL XL) 10 MG [id number]:Ty pe 2 diabetes mellitus with hemoglobin A1c goal of less than 8.0% (HCC) TAKE 1 TABLET BY MOUTH 2 TIMES A DAY 180 Tab 1 12/09/2016 Active terazosin 2 MG CapsuleIndications :Atherosclerosis of [place] coronary artery of [place] heart without angina pectoris,BPH with obstruction/lower urinary tract symptoms,Essential hypertension with goal blood pressure less than 140/90 Take 1 Cap by mouth at bedtime. 90 Cap 3 03/05/2017 Active terazosin (HYTRIN) 1 MG CapsuleIndications :Atherosclerosis of [place] coronary artery of [place] heart without angina pectoris,BPH with obstruction/lower urinary tract symptoms,Essential hypertension with goal blood pressure less than 140/90 TAKE 1 CAPSULE BY MOUTH AT BEDTIME. 90 Cap 1 01/21/2017 7 Discontinued as of this encounter Active [...] patient at prior appointment. CORONARY ATHEROSCLER. OF [place] CORONARY VESSEL 11/30/2001 Peptic ulcer GENERAL OSTEOARTHROSIS Multiple pulmonary nodules CKD (chronic kidney disease) stage 2, GF R 60-89 ml/min Complex renal cyst Overview: 3.8 cm; L as of this encounter Resolved Problems Problem Noted Date Resolved Date Genomics Cardio Research Other*[id number] 201004/22/2016 Overview: Study Titile: Genomics Markers for Patients with Cardiovascular Disease Project # [id number] PI: Amalia Kingsley MD Please call [phone] with study related questions HTN, goal below [...] Vital Sign Reading Time Taken Blood Pressure 130/62 03/05/2017 9:43 AM EST Pulse 60 03/05/2017 9:43 AM EST Temperature - - Respiratory Rate 14 03/05/2017 9:43 AM EST Oxygen Saturation - - Inhaled Oxygen Concentration - - Weight 64 kg (141 lb) 03/05/2017 9:43 AM EST Height - - Body Mass Index 23.46 03/05/2017 9:43 AM EST in this encounter Progress Notes * Alcon Lott PA-C - 03/05/2017 9:59 AM EST Formatting of this note may be different from the original. History of Present Illness: Mr. Reynolds is a very pleasant 76 year old male here today for routinecardiology follow-up. Patient notes elevated blood pressures in the AM upon wakening, normotension observed on random blood pressure checks throughout the day. No chest pain. No sublingual nitroglycerin use. No palpitations. No new or worsening shortness of breath. Able to ambulate 2-3 flights without difficulty. No nocturnal cough, orthopnea, PND, or edema. No lightheadedness, dizziness, near syncope, or true syncope. No epistaxis, hemoptysis, melena, hematochezia, or hematuria. Varying nocturia. Patient Active Problem List Diagnosis Code Peptic ulcer K27.9 GENERAL OSTEOARTHROSIS M15.9 CORONARY ATHEROSCLER. OF [place] CORONARY VESSEL I25.10 ADVANCE DIRECTIVE INFORMATION DM TYPE 2 CAUSING RENAL DZ E11.29 Type 2 diabetes mellitus with hemoglobin A1c goal of less than 8.0% (HCC) E11.9 DYSLIPIDEMIA, GOAL LDL BELOW 70 E78.5 BPH with obstruction/lower urinary tract symptoms N40.1, N13.8 Essential hypertension with goal blood pressure less than 140/90 I10 Statin intolerance Z78.9 Multiple pulmonary nodules R91.8 CKD (chronic kidney disease) stage 2, GFR 60-89 ml/min N18.2 Ischemic cardiomyopathy I25.5 Complex renal cyst N28.1 Hx of actinic keratosis Z87.2 Type 2 diabetes mellitus with stage 2 chronic kidney disease, without long- term current use of insulin (HCC) E11.22, N18.2 Hx of nonmelanoma skin cancer Z85.828 Past Surgical History: Inguinal hernia. CABG Social History: From [place]. Lives in [place] with his . Reformed smoker. 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 Review of patient's allergies indicates: Allergen Reactions Acetaminophen Renal complications Aspirin Stomach pain Cholestyramine Kidney pain Lipitor [Atorvastatin Calcium] cramping Niacin Muscle pain Simvastatin Hives Zetia [Ezetimibe] Cramping ankles, turned feet inward Current Outpatient Prescriptions Medication Sig Dispense Refill terazosin 2 MG Capsule Take 1 Cap [...] mouth daily. 90 Tab 1 Glucose Blood (Max Planck Florida InstituteTOUCH ULTRA BLUE) STRP test twice a day DX: E11.9 200 Strip 5 [facility] Florida InstituteTOUCH ULTRASOFT LANCETS MISC Use as directed 2 times a day. 2 Box Dosing Unit 5 tretinoin (RETIN-A) 0.05 % cream APPLY NIGHTLY TO FACE DIRECTED,CAN MIX WITH PONDS 45 g 2 MULTI-VITAMIN PO TABS one pill each day SB LOW DOSE ASA EC 81 MG PO TBEC one tab three times weekly MAGNESIUM OXIDE 200 MG PO TABS one tablet twice a day 60 Tab 5 GAVI 180 MG PO TABS One pill by mouth once a day for allergies 30 5 PHYSICAL EXAMINATION BP 130/62 | Pulse 60 | Resp 14 | Wt 141 lbs (63.957kg) | BMI 23.46 kg/m | BSA 1.71 m | BP on my examination was 128/66 on the right and 124/66 on the left General: A&Ox3. NAD. HEENT: Normocephalic. Atraumatic. PER. Conjunctiva pink, sclera clear. Neck: Bilateral carotid bruits. No JVD. No HJR. Heart: Irregular with occasional ectopy around 60 bpm. Grade II/ systolic ejection murmur. [...] ventricular systolic function is mildly reduced. The qualitative LV ejection fraction is 45- 49% (mildly reduced). Aortic stenosis is absent. Moderate aortic valve regurgitation is present. There are two separate aortic insufficiency jets. Mild mitral regurgitation is present. Trace tricuspid regurgitation is present. Compared to the prior study dated 08/29/2014, there has been no significant interval change. EKG today demonstrates sinus bradycardia at 58 bpm with a first degree AV block, nonspecific intraventricular block, old inferior and anterior infarcts. QTc 408 ms. ASSESSMENT: 1. Labile hypertension. 2. ASCVD, ischemic cardiomyopathy with past inferior MT in 1994 managed at [facility]. [...] marginal. 5. Ischemic cardiomyopathy, LVEF 45%. 6. Aortic insufficiency. 7. Compensated volume status. 8. Palpitations in association with sensed ectopy. 9. Dyslipidemia, statin intolerance. 10. Type II diabetes mellitus. 11. Carotid artery disease. History of prior TIA with transient leg weakness. 12. BPH Options discussed. Plan agreed upon as detailed below. RECOMMENDATIONS/PLAN: 1. Increase terazosin from 1 mg at bedtime to 2 mg at bedtime. Benefits, use, and risks discussed. 2. Continue current therapies as prescribed, without change. 3. Resting echocardiography just prior to next evaluation, to reassess LV systolic function and valvular status. 4. Routine cardiology follow-up in 6 months or as needed. 5. ER with emergencies. Alcon Lott PA-C Department of Cardiology in this encounter Procedure Notes * Tulio Mcadams, - 03/05/2017 9:52 AM EST Associated Order(s): EKG COMPLETE (TRACING AND INTERP) REASON FOR STUDY: 1 year f/u--hx CAD CONCLUSIONS: Sinus bradycardia with 1st degree AV block Nonspecific intraventricular conduction block Inferior infarct (cited on or before 18-DEC-2010) Cannot rule out Anterior infarct (cited on or before 18-DEC-2010) Abnormal ECG When compared with ECG of 06-MAR-2016 08:37, Aberrant conduction is no longer Present Questionable change in The axis Ventricular Rate: 58 Atrial Rate: 58 ID Interval: 268 QRS Duration: 126 QT/QTc: 416/408 ms P-R-T Graham: 66 : 65 : -22 degrees in this encounter Nursing Notes * Suzan Alcantar RN - 03/05/2017 9:44 AM EST Examination Room: 3 Name: Cl Reynolds Date of : (1940). Reason for Visit: Follow up Interim Hospitalization(s): No Problems/Concerns: States feeling well, overall. States noting slight increase in bp in AM before taking medications. Now ranging in 140's systolic. Chest Pain/SOB: Denies My [facility] is a way you can talk to your provider online through e-mail. Would you like to sign up? I can activate it for you? DECLINES in this encounter Plan of Treatment Upcoming Encounters Date Type Specialty Care Team Description 07/13/2017 Office Visit Dermatology Kim Kong MD [address] [facility] [place] [address] [phone] 07/31/2017 Office Visit Internal Medicine Smith Orozco MD [address] [place] [address] [place] [address] [phone] 09/03/2017 Office Visit Cardiology Alcon Lott PA-C [address] [facility] [place] [address] Health Maintenance Due Date [...] of this encounter Implants Implanted Type Area Computer Technology Instructor Device Identifier Expiration Date Model / Serial / Lot Marker Coronary [employer] Kitchen-Sd - [id number] Implanted:Qty: 1 on 12/26/2010 N/A: Heart [employer] 10/13/2013 [facility] / / [id number] Sut [employer] 6 M654g - [id number] Implanted:Qty: 5 on 12/26/2010 Chest DO NOT USE 10/14/2015 M654G / / [id number] [facility] 225-241 - [id number] Implanted:Qty: 1 on 12/26/2010 Chest [employer] 225-241 / / [id number] as of this encounter Results * EKG COMPLETE (TRACING AND INTERP) (03/05/2017 9:52 AM) Specimen Performing Seamus arellano [facility]ARD[facility] Procedure Note Tulio Mcadams DO - 03/05/2017 9:52 AM EST REASON FOR STUDY: 1 year f/u--hx CAD CONCLUSIONS: Sinus bradycardia with 1st degree AV block Nonspecific intraventricular conduction block Inferior infarct (cited on or before 18-DEC-2010) Cannot rule out Anterior infarct (cited on or before 18-DEC-2010) Abnormal ECG When compared with ECG of 06-MAR-2016 08:37, Aberrant conduction is no longer Present Questionable change in The axis Ventricular Rate: 58 Atrial Rate: 58 ID Interval: 268 QRS Duration: 126 QT/QTc: 416/408 ms P-R-T Graham: 66 : 65 : -22 degrees in this encounter Visit Diagnoses Diagnosis Atherosclerosis of [place] co ronary artery of [place] heart without angina pectoris - Primary Ischemic cardiomyopathy Other specified forms of [...] / Group Subscriber ID Type Phone Address [employer] [facility] CUSTOM NO DRUG [id number] Medicare [phone] [address] [facility] [place] [address] as of this encounter"
--- OUTSIDE RECORDS SUMMARY | 2022-11-16 13:24 | External Medical Summary ---
Author Name Unknown Address [facility] [place] [address] Phone Organization K01:[place] [address] [facility] [place] [address] Laboratory Report Ordering Provider Test Date Status LOLIS BRADFORD 07/25/2016 08:23:00 Final Observation Date Value Abnormality Reference Status HbA1C 07/25/2016 14:31 7.0 Above high normal 4.0-6 .4 Final Performing Location [place] [address] [facility] [address]
--- OUTSIDE RECORDS SUMMARY | 2022-11-16 13:24 | External Medical Summary ---
Author Name Unknown Address [address] [facility] [place] [address] Phone Organization K01:[facility] [address] [facility] [place] [address] Laboratory Report Ordering Provider Test Date Status MARÍA FRAZIER 09/18/2016 09:18:00 Final Observation Date Value Abnormality Reference Status Protein, Urine 09/18/2016 13:57 11 Final Creatinine [Moles/volume] in Urine 09/18/2016 13:57 25 Final Protein/Creatinine [Ratio] in Urine 09/18/2016 13:57 440 Above high normal <150 Final Performing Location [facility] [address] [facility] [place] [address]
--- OUTSIDE RECORDS SUMMARY | 2022-11-16 13:24 | External Medical Summary | Summary of Care ---
Author Name Unknown Organization [place] [address] Phone Care Team Providers Care Fruit Express Agent Name Role Phone Smith Orozco MD Primary Care Provider Reason for Referral * Precert (Routine) Status Reason Specialty Diagnoses / Procedures Referred By Contact Referred To Contact Closed Precert Cardiac Studies Diagnoses Ischemic cardiomyopathy Nonrheumatic aortic valve insufficiency Procedures ECHO, COMPLETE (2D), TRANS-THORACIC Alcon Lott PA-C [address] [place] [address] Reason for Visit * Reason Comments Cardiology Study Echo * Precert (Routine) Status Reason Specialty Diagnoses / Procedures Referred By Contact Referred To Contact Closed Precert Cardiac Studies Diagnoses Ischemic cardiomyopathy Nonrheumatic aortic valve insufficiency Procedures ECHO, COMPLETE (2D), TRANS-THORACIC Alcon Lott PA-C [address] [place] [address] Encounter Details Date Type Department Care Team Description 02/27/2017 Cardiac Studies Cardiac Studies [facility] [address] [place] [address] [facility] Field Operator [address] [place] [address] Ischemic cardiomyopathy*;Nonrhe umatic aortic valve insufficiency Allergies [...] Active glipiZIDE XL (GLUCOTROL XL) 10 MG [id number]:Type 2 diabetes mellitus with hemoglobin A1c goal of less than 8.0% ([facility]) TAKE 1 TABLET BY MOUTH 2 TIMES A DAY 180 Tab 1 12/09/2016 Active terazosin (HYTRIN) 1 MG CapsuleIndications:A therosclerosis of [place] coronary artery of [place] heart without angina pectoris,BPH with obstruction/lower urinary [...] disease, without long-term current use of insulin ([facility]) 01/24/2016 Hx of actinic keratosis 10/12/2015 Ischemic [...] less than 8.0% ([facility]) 01/11/2009 Overview: Per Diabetes Taxonomy. ICD-10 update of inactive term ADVANCE DIRECTIVE INFORMATION 12/23/2006 Overview: No, Advance Directive brochure given to patient at prior appointment. CORONARY ATHEROSCLER. OF [place] CORONARY VESSEL 11/30/2001 Peptic ulcer GENERAL OSTEOARTHROSIS Multiple pulmonary nodules CKD (chronic kidney disease) stage 2, GF R 60-89 ml/min Complex renal cyst Overview: 3.8 cm; L as of this encounter Resolved Problems Problem Noted Date Resolved Date Gen[employer] Cardio Research Other*[id number] 201004/22/2016 Overview: Study Titile: Genomics Markers for Patients with Cardiovascular Disease Project # [id number] PI: Amalia Kingsley MD Please call [phone] with study related questions HTN, goal below [...] hemoglobin A1c goal of less than 7.0% ([facility]) 01/11/2009 Overview: Per Diabetes Taxonomy. ICD-10 update [...] Progress Notes * Laura Beltrán TECH - 02/27/2017 9:30 AM EST Echo completed today by tissue technologist per provider order. in this encounter Plan of Treatment Upcoming Encounters Date Type Specialty Care Team Description 03/05/2017 Office Visit Cardiology Alcon Lott PA-C [address] [place] [address] [phone] Asaf, Nurse Cardiology [address] [place] [address] [phone] 07/13/2017 Office Visit Dermatology Kim Kong MD [address] [facility] [place] [address] [phone] 07/31/2017 Office Visit Internal Medicine Smith Orozco MD [address] [place] [address] [place] [address] [phone] Health Maintenance Due Date Last Done Comments [...] of this encounter Implants Implanted Type Area Ordnance Officer Device Identifier Expiration Date Model / Serial / Lot Marker Coronary Amgm-Sd - [id number] Implanted:Qty: 1 on 12/26/2010 N/A: Heart [employer] 10/13/2013 [facility] / / [id number] Sut [employer] 6 M654g - [id number] Implanted:Qty: 5 on 12/26/2010 Chest DO NOT USE 10/14/2015 M654G / / [id number] Alonso Ankur 225-462 - [id number] Implanted:Qty: 1 on 12/26/2010 Chest [employer] [id number] / / [id number] as of this encounter Visit Diagnoses Diagnosis Ischemic cardiomyopathy - Pr imary Other specified forms of chronic ischemic heart disease Nonrheumatic aortic valve in sufficiency Aortic valve disorders in this encounter Insurance Payer Benefit Plan / Group Subscriber ID Type Phone Address [facility] CUSTOM NO DRUG [id number] Medicare [phone] [place] [address] as of this encounter
--- OUTSIDE RECORDS SUMMARY | 2022-11-16 13:24 | External Medical Summary ---
Author Name Unknown Address [facility] [address] [place] [id number] Phone Organization K01:[facility] [address] [facility] [address] Laboratory Report Ordering Provider Test Date Status LOLIS BRADFORD MD 01/24/2016 09:17:00 Final Obs # Observation Date Value Abnormality Reference Status Performing Location 0 HbA1C 01/24/2016 15:12 6.6 Above high normal 4.0-6.4 Final [place] [address] [address] [facility] [address]
--- OUTSIDE RECORDS SUMMARY | 2022-11-16 13:24 | External Medical Summary | Summary of Care ---
Author Name Unknown Organization [place] [address] Phone Care Team Providers Care Surgical Physician Assistant Name Role Phone Smith Danielle MD Primary Care Provider [phone] Reason for Visit * Reason Comments eRx-Medication Refill Encounter Details Date Type Department Care Team Description 03/24/2017 Refill Dermatology [facility] [address] [place] [address] Kim Kong MD [address] [place] [address] [phone] Actinic keratosis Allergies Active Allergy Reactions Severity [...] Active glipiZIDE XL (GLUCOTROL XL) 10 MG [id number]:Ty pe 2 diabetes mellitus with hemoglobin A1c goal of less than 8.0% (HCC) TAKE 1 TABLET BY MOUTH 2 TIMES A DAY 180 Tab 1 12/09/2016 Active terazosin 2 MG CapsuleIndications :Atherosclerosis of [place] coronary artery of [place] heart without angina pectoris,BPH with obstruction/lower urinary tract symptoms,Essential hypertension with goal blood pressure less than 140/90 Take 1 Cap by mouth at bedtime. 90 Cap 3 03/05/2017 Active tretinoin (RETIN-A) 0.05 % creamIndications:A ctinic keratosis APPLY NIGHTLY TO FACE DIRECTED,CAN MIX WITH PONDS 45 g 5 03/25/2017 Active tretinoin (RETIN-A) 0.05 % creamIndications:A ctinic keratosis APPLY NIGHTLY TO FACE DIRECTED,CAN MIX WITH PONDS 45 g 2 02/15/2015 8 Discontinued as of this encounter Active [...] than 8.0% ([facility]) 01/11/2009 Overview: Per Diabetes Taxonomy. ICD-10 update of inactive term ADVANCE DIRECTIVE INFORMATION 12/23/2006 Overview: No, Advance Directive brochure given to patient at prior appointment. CORONARY ATHEROSCLER. OF [place] CORONARY VESSEL 11/30/2001 Peptic ulcer GENERAL OSTEOARTHROSIS Multiple pulmonary nodules CKD (chronic kidney disease) stage 2, GF R 60-89 ml/min Complex renal cyst Overview: 3.8 cm; L as of this encounter Resolved Problems Problem Noted Date Resolved Date [employer] Other*[id number] 201004/22/2016 Overview: Study Titile: Genomics Markers for Patients with Cardiovascular Disease Project # [id number] PI: Amalia Kingsley MD Please call [phone] with study related questions HTN, goal below [...] goal of less than 7.0% ([facility]) 01/11/2009 Overview: Per Diabetes Taxonomy. [...] Telephone Encounter - Smith Danielle MD - 03/25/2017 12:18 PM EST Signed Prescriptions: Disp Refillstretinoin (RETIN-A) 0.05 % cream 45 g 5Sig: APPLY NIGHTLY TO FACE DIRECTED,CAN MIX WITH PONDSAuthorizing Provider: SMITH DANIELLE * Telephone Encounter - Selam Vickers LPN - 03/25/2017 8:22 AM EST Pending Prescriptions: Disp Refills tretinoin (RETIN-A) 0.05 % cream [Pharmac*45 g 0 Sig: APPLY NIGHTLY TO FACE DIRECTED,CAN MIX WITH PONDS * Telephone Encounter - Selam Vickers, KYLE - 03/25/2017 8:22 AM EST Pending Prescriptions: Disp Refills tretinoin (RETIN-A) 0.05 % cream [Pharmac*45 g 0 Sig: APPLY NIGHTLY TO FACE DIRECTED,CAN MIX WITH PONDS Last Office Visit: 11/19/2016 Next Office Visit: 07/13/2017 Scheduled Provider(s): Kim Kong MD Lr 02-15-15 in this encounter Plan of Treatment Upcoming Encounters Date Type Specialty Care Team Description 07/13/2017 Office Visit Dermatology Kim Kong MD [address] [place] [place] [address] [phone] 07/31/2017 Office Visit Internal Medicine Smith Danielle MD [address] [place] [address] [place] [phone] 09/03/2017 Office Visit Cardiology Alcon Lott PADannyC [address] [facility] [place] [address] [phone] Health Maintenance Due Date Last Done Comments [...] of this encounter Implants Implanted Type Area Cyber Security Device Identifier Expiration Date Model / Serial / Lot Marker Coronary AmMilkyWay-Sd - [id number] Implanted:Qty: 1 on 12/26/2010 N/A: Heart [employer] 10/13/2013 AMGM-SD / / [id number] Sut Steel 6 M654g - [id number] Implanted:Qty: 5 on 12/26/2010 Chest DO NOT USE 10/14/2015 M654G / / [id number] [facility] 225-241 - [id number] Implanted:Qty: 1 on 12/26/2010 Chest [employer] 225-682 / / [id number] as of this encounter Visit Diagnoses Diagnosis Actinic keratosis in this encounter Insurance Payer Benefit Plan / Group Subscriber ID Type Phone Address [facility] [id number] Medicare [phone] [place] [address] as of this encounter
--- OUTSIDE RECORDS SUMMARY | 2022-11-16 13:24 | External Medical Summary ---
Author Name Unknown Address [address] [facility] [place] [address] Phone Organization K01:[facility] [address] [facility] [place] [address] Laboratory Report Ordering Provider Test Date Status MARÍA FRAZIER MD 01/28/2016 12:40:00 Final Obs # Observation Date Value Abnormality Reference Status Performing Location 0 BUN 01/28/2016 21:25 21 Above high normal 6-20 Final [facility] [address] [facility] [place] [address] 1 Creatinine 01/28/2016 21:25 0.9 0.6-1.2 Final
--- OUTSIDE RECORDS SUMMARY | 2022-11-16 13:24 | External Medical Summary ---
Author Name Unknown Address [address] [facility] [place] [facility] Phone Organization K01:[facility] [address] [place] [id number] Laboratory Report Ordering Provider Test Date Status LOLIS BRADFORD 10/27/2016 09:32:00 Final Observation Date Value Abnormality Reference Status Albumin, Urine 10/27/2016 17:21 8.99 Final Creatinine [Moles/volume] in Urine 10/27/2016 17:21 25 Final Microalbumin / Creatinine Ratio 10/27/2016 17:21 360 Above high normal <30 Final Performing Location [facility] [address] [facility] [address]
--- OUTSIDE RECORDS SUMMARY | 2022-11-16 13:24 | External Medical Summary ---
Author Name Unknown Address [address] [facility] [place] [address] Phone Organization K01:[facility] [address] [facility] [address] Laboratory Report Ordering Provider Test Date Status MARÍA FRAZIER MD 01/28/2016 12:40:00 Final Obs # Observation Date Value Abnormality Reference Status Performing Location 0 Protein, Urine 6 21:34 19 Final [facility] [address] [facility] [address] 1 Creatinine [Moles/volume] in Urine 6 21:34 29 Final 2 Protein/Creatini ne [Ratio] in Urine 6 21:34 0.66 Above high normal <0.15 Final
--- OUTSIDE RECORDS SUMMARY | 2022-11-16 13:25 | External Medical Summary ---
Author Name Unknown Address [address] [place] [address] [place] [address] Phone Organization K08:[address] [place] [address] Laboratory Report Ordering Provider Test Date Status RONALDOGENESISKole PAC [id number] Final Obs # Observation Date Value Abnormality Reference Status Performing Location 0 hours fasting 905904517413 [address] [place] [address] 1 Triglyceride 752537127640 133 <[address] [place] [address]
--- OUTSIDE RECORDS SUMMARY | 2022-11-16 13:25 | External Medical Summary ---
Author Name Unknown Address [address] [place] [id number] Phone Organization K01:[facility] [address] [place] [address] Laboratory Report Ordering Provider Test Date Status LOLIS BRADFORD MD [id number] Final Obs # Observation Date Value Abnormality Reference Status Performing Location 0 BUN [id number] 21 Above high normal 6-20 Final [facility] [address] [facility] [address]
--- OUTSIDE RECORDS SUMMARY | 2022-11-16 13:25 | External Medical Summary ---
Author Name Unknown Address [address] [place] [phone] Phone Organization K01:[facility] [address] [place] [id number] Laboratory Report Ordering Provider Test Date Status LOLIS BRADFORD MD [id number] Final Obs # Observation Date Value Abnormality Reference Status Performing Location 0 HbA1C 537639751007 6.8 Above high normal 4.0-6.4 Final [facility] [place] [address] [facility] [address]
--- OUTSIDE RECORDS SUMMARY | 2022-11-16 13:25 | External Medical Summary ---
Author Name Unknown Address [address] [place] [address] Phone Organization K01:[facility] [address] [place] [address] Laboratory Report Ordering Provider Test Date Status MARÍA FRAZIER MD [id number] Final Obs # Observation Date Value Abnormality Reference Status Performing Location 0 C-ANCA [id number] NEGATIVE NEG Final [facility] [address] [facility] [address] 1 P-ANCA [id number] NEGATIVE NEG Final [facility] [address] [facility] [address] 2 comment [id number] Negative for ANCA Final [facility] [address] [facility] [facility] [address]
--- OUTSIDE RECORDS SUMMARY | 2022-11-16 13:25 | External Medical Summary ---
Author Name Unknown Organization K08:[facility] [address] [place] [address] Laboratory Report Ordering Provider Test Date Status SUZETTE DANIELLE MD 12/22/2013 10:08:00-0400 Final Obs # Observation Date Value ABNL Reference Status Pe rforming Location 1 BUN 12/22/2013 11:40-0400 25 H 6-20 mg/dL Final 2 Creatinine 12/22/2013 11:40-0400 1.0 0.7-1.3 mg/dL Final GFR should be used to assess renal function. Plasma/Serum creatinine may not be able to properly reflect renal function in some cases. If patient is , multiply estimated GFR by 1.159.
--- OUTSIDE RECORDS SUMMARY | 2022-11-16 13:25 | External Medical Summary ---
Author Name Unknown Address [address] [place] [address] Phone Organization K01:[facility] [address] [facility] [address] Laboratory Report Ordering Provider Test Date Status LOLIS BRADFORD MD [id number] Final Obs # Observation Date Value Abnormality Reference Status Performing Location 0 BUN 778110684249 23 Above high normal 6-[address] [facility] [address] [facility] [address] 1 Creatinine 188730231470 0.9 0.6-1.[address] [facility] [address] [facility] [address]
--- OUTSIDE RECORDS SUMMARY | 2022-11-16 13:25 | External Medical Summary ---
Author Name Unknown Address [address] [place] [id number] Phone Organization K01:[facility] [address] [place] [place] 6[address]8022 Laboratory Report Ordering Provider Test Date Status LOLIS BRADFORD MD [id number] Final Obs # Observation Date Value Abnormality Reference Status Performing Location 0 HbA1C 614891424417 6.8 Above high normal 4.0-6.4 Final [facility] [address] [facility] [address]
--- OUTSIDE RECORDS SUMMARY | 2022-11-16 13:25 | External Medical Summary ---
Author Name Unknown Address [address] [facility] [place] [address] Phone Organization K01:[facility] [address] [place] [address] Laboratory Report Ordering Provider Test Date Status VITOR BRANDT JOE 10/04/2015 08:28:00 Final Obs # Observation Date Value Abnormality Reference Status Performing Location 0 BUN 10/04/2015 14:12 26 Above high normal 6-20 Final [facility] [address] [place] [facility] [place] [address] 1 Creatinine 10/04/2015 14:12 1.0 0.6-1.2 Final
--- OUTSIDE RECORDS SUMMARY | 2022-11-16 13:25 | External Medical Summary ---
Author Name Unknown Organization K08:[facility] [address] [place] [address] Laboratory Report Ordering Provider Test Date Status SUZETTE DANIELLE MD 06/29/2014 08:27:00-0400 Final Obs # Observation Date Value ABNL Reference Status Pe rforming Location 1 hours fasting 06/29/2014 08:29-0400 12 hours Final 2 Triglyceride 06/29/2014 14:35-0400 104 <200 mg/dL Final TRIGLYCERIDE REFERENCE RANGES (mg/dL) <150 NORMAL 150-199 BORDERLINE HIGH 200-499 HIGH >499 VERY HIGH TOTAL CHOLESTEROL REFERENCE RANGES(mg/dL) <200 DESIRABLE 200-239 BORDERLINE HIGH >239 HIGH HDL CHOLESTEROL REFERENCE RANGES(mg/dL) <40 LOW(UNDESIRABLE) >59 HIGH(DESIRABLE) LDL CHOLESTEROL REFERENCE RANGES(mg/dL) <100 OPTIMAL GOAL FOR HIGH RISK PATIENTS 100-129 NEAR OR ABOVE NORMAL 130-159 BORDERLINE HIGH 160-189 HIGH >189 VERY HIGH
--- OUTSIDE RECORDS SUMMARY | 2022-11-16 13:25 | External Medical Summary ---
Author Name Unknown Organization K08:[facility] [address] [place] [address] Laboratory Report Ordering Provider Test Date Status SUZETTE DANIELLE MD 06/29/2014 08:27:00-0400 Final Obs # Observation Date Value ABNL Reference Status Pe rforming Location 1 WBC 06/29/2014 09:32-0400 5.67 4.00-10.80 K/uL Final 2 RBC 06/29/2014 09:32-0400 4.23 L 4.50-5.25 M/uL Final 3 HGB 06/29/2014 09:32-0400 14.2 14.0-16.8 g/dL Final 4 HCT 06/29/2014 09:32-0400 41.1 40.0-48.4 % Final 5 MCV 06/29/2014 09:32-0400 97.2 82.0-99.5 fL Final 6 MCH 06/29/2014 09:32-0400 33.6 27.0-34.0 pg Final 7 MCHC 06/29/2014 09:32-0400 34.5 32.0-36.0 g/dL Final 8 RDW 06/29/2014 09:32-0400 12.6 11.5-15.5 % Final 9 PLT 06/29/2014 09:32-0400 208 140-400 K/uL Final 10 MPV 06/29/2014 09:32-0400 10.2 6.6-11.1 fL Final
--- OUTSIDE RECORDS SUMMARY | 2022-11-16 13:25 | External Medical Summary ---
Author Name Unknown Organization K08:[facility] [address] [place] [address] Laboratory Report Ordering Provider Test Date Status GAUTAM SULY PAC 01/06/2014 08:10:00-0400 Maria Teresa l Obs # Observation Date Value ABNL Reference Status Pe rforming Location 1 Creatinine 01/06/2014 09:12-0400 1.0 0.7-1.3 mg/dL Final GFR should be used to assess renal function. Plasma/Serum creatinine may not be able to properly reflect renal function in some cases. If patient is , multiply estimated GFR by 1.159.
--- OUTSIDE RECORDS SUMMARY | 2022-11-16 13:25 | External Medical Summary ---
Author Name Unknown Organization K01:[facility], [address] [address] Laboratory Report Ordering Provider Test Date Status SUZETTE DANIELLE MD 06/29/2014 08:27:00-0400 Final Obs # Observation Date Value ABNL Reference Status Pe rforming Location 1 Albumin, Urine 06/29/2014 16:40-0400 23.40 H 0-2 mg/dL Final 2 Creatinine, Random Urine 06/29/2014 16:40-0400 94 mg/dL Final 3 Microalbumin / Creatinine Ratio 06/29/2014 16:40-0400 249 H <31 mg/g creat Final Normal: 0- 29 mg/g creatinine High: 30-300 mg/g creatinine Very High and Nephrotic: >300 mg/g creatinine
--- OUTSIDE RECORDS SUMMARY | 2022-11-16 13:25 | External Medical Summary ---
Author Name Unknown Organization K01:[facility], [address] [place] [id number] Laboratory Report Ordering Provider Test Date Status SUZETTE DANIELLE MD 06/29/2014 08:27:00-0400 Final Obs # Observation Date Value ABNL Reference Status Pe rforming Location 1 PSA 06/29/2014 14:36-0400 3.46 <4.4 ng/mL Final
--- OUTSIDE RECORDS SUMMARY | 2022-11-16 13:25 | External Medical Summary ---
Author Name Unknown Organization K01:[facility], [address] [id number] Laboratory Report Ordering Provider Test Date Status SUZETTE DANIELLE MD 12/22/2013 10:08:00-0400 Final Obs # Observation Date Value ABNL Reference Status Pe rforming Location 1 HbA1C 12/22/2013 22:59-0400 6.7 H 4.0-6.4 % Final 2 Glucose, estimated average 12/22/2013 22:59-0400 146 H <126 MG/DL Final
--- OUTSIDE RECORDS SUMMARY | 2022-11-16 13:25 | External Medical Summary ---
Author Name Unknown Address [facility] [address] [facility] [place] [facility]22 Phone Organization K01:[facility] [address] [place] [place] [address] Laboratory Report Ordering Provider Test Date Status MARÍA FRAZIER MD [id number] Final Obs # Observation Date Value Abnormality Reference Status Perfor sharad Location 0 Protein, Urine total 335656310965 18 Final [facility] [address] [facility] [address] 1 interpretation [id number] NO BENCE-TROTTER PROTEIN DETECTED BY IMMUNOFIXATIO N ELECTROPHORES IS Final [facility] [address] [facility] [address] 2 comment [id number] REVIEWED BY DR Paul HUNT [facility] [address] [facility] [address]
--- OUTSIDE RECORDS SUMMARY | 2022-11-16 13:25 | External Medical Summary ---
Author Name Unknown Address [address] [place] [phone] Phone Organization K01:[facility] [address] [place] [address] Laboratory Report Ordering Provider Test Date Status MARÍA FRAZIER MD [id number] Final Obs # Observation Date Value Abnormality Reference Status Performing Location 0 [id number] Final [facility] [address] [facility] [address]
--- OUTSIDE RECORDS SUMMARY | 2022-11-16 13:25 | External Medical Summary ---
Author Name Unknown Address [address] [place] [address] Phone Organization K01:[facility] [address] [facility] [address] Laboratory Report Ordering Provider Test Date Status LOLIS BRADFORD MD [id number] Final Obs # Observation Date Value Abnormality Reference Status Performing Location 0 BUN 519243876373 22 Above high normal 6-[address] [facility] [address] [facility] [address] 1 Creatinine 718893546950 0.9 0.6-1.[address] [facility] [address] [facility] [address]
--- OUTSIDE RECORDS SUMMARY | 2022-11-16 13:25 | External Medical Summary ---
Author Name Unknown Organization K08:[facility] [place] [place] [address] Laboratory Report Ordering Provider Test Date Status GAUTAM DIAZ 01/06/2014 08:10:00-0400 Maria Teresa akbar Obs # Observation Date Value ABNL Reference Status Pe rforming Location 1 BUN 01/06/2014 09:12-0400 22 H 6-20 mg/dL Final
--- OUTSIDE RECORDS SUMMARY | 2022-11-16 13:25 | External Medical Summary ---
Author Name Unknown Address [address] [place] [phone] Phone Organization K01:[facility] [address] [facility] [address] Laboratory Report Ordering Provider Test Date Status MARÍA FRAZIER MD [id number] Final Obs # Observation Date Value Abnormality Reference Status Performing Location 0 Immunofixation, interpretation [id number] NO MONOCLONAL GAMMOPATHY IS DETECTED. Final [facility] [address] [facility] [address] 1 comment [id number] REVIEWED BY DR Paul HUNT [facility] [address] [facility] [address]
--- OUTSIDE RECORDS SUMMARY | 2022-11-16 13:25 | External Medical Summary ---
Author Name Unknown Address [address] [place] [address] Phone Organization K01:[facility] [address] [facility] [address] Laboratory Report Ordering Provider Test Date Status MARÍA FRAZIER MD [id number] Final Obs # Observation Date Value Abnormality Reference Status Performing Location 0 Albumin, Urine 430596617466 33.78 Maria Teresa [facility] [address] [facility] [address] 1 Creatinine, Urine 215265863122 62 Final [facility] [address] [facility] [address] 2 Microalbumin / Creatinine Ratio 082969421865 545 Above high normal <30 Final [facility] [address] [facility] [address]
--- OUTSIDE RECORDS SUMMARY | 2022-11-16 13:25 | External Medical Summary ---
Author Name Unknown Address [address] [place] [phone] Phone Organization K01:[facility] [address] [place] [address] Laboratory Report Ordering Provider Test Date Status MARÍA FRAZIER MD [id number] Final Obs # Observation Date Value Abnormality Reference Status Performing Location 0 BUN 599151004904 19 6-20 Final [facility] [address] [facility] [address] 1 Creatinine 531550195939 1.0 0.6-1.2 Final [facility] [address] [facility] [address]
--- OUTSIDE RECORDS SUMMARY | 2022-11-16 13:25 | External Medical Summary ---
Author Name Unknown Address [facility] [place] [address] Phone Organization K01:[facility] [address] [place] [address] Laboratory Report Ordering Provider Test Date Status MARÍA FRAZIER MD [id number] Final Obs # Observation Date Value Abnormality Reference Status Performing Location 0 Complement C3c [Mass/volume] in Serum or Plasma 598783482699 90 90-180 Final [facility] [address] [place] [address]
--- OUTSIDE RECORDS SUMMARY | 2022-11-16 13:25 | External Medical Summary ---
Author Name Unknown Organization K01:[facility], [address] [address] Laboratory Report Ordering Provider Test Date Status SUZETTE DANIELLE MD 06/29/2014 08:27:00-0400 Final Obs # Observation Date Value ABNL Reference Status Pe rforming Location 1 HbA1C 06/29/2014 16:42-0400 7.4 H 4.0-6.4 % Final 2 Glucose, estimated average 06/29/2014 16:42-0400 166 H <126 MG/DL Final
--- OUTSIDE RECORDS SUMMARY | 2022-11-16 13:25 | External Medical Summary ---
Author Name Unknown Address [address] [place] [phone] Phone Organization K01:[facility] [address] [place] [address] Laboratory Report Ordering Provider Test Date Status MARÍA FRAZIER MD [id number] Final Obs # Observation Date Value Abnormality Reference Status Performing Location 0 CHRISTO, DYANA Screen [id number] SEE IFA CONFIRMATORY TEST RESULT Final [facility] [address] [facility] [address] 1 CHRISTO, dilution [id number] <40 <40 Final [facility] [address] [facility] [address] 2 CHRISTO, pattern [id number] NOT APPLICABLE Final [facility] [address] [facility] [address]
--- OUTSIDE RECORDS SUMMARY | 2022-11-16 13:25 | External Medical Summary ---
Author Name Unknown Address [address] [place] [phone] Phone Organization K01:[facility] [address] [place] [address] Laboratory Report Ordering Provider Test Date Status LOLIS BRADFORD MD [id number] Final Obs # Observation Date Value Abnormality Reference Status Performing Location 0 Creatinine 564542052838 1.1 0.6-1.2 Final [facility] [address] [facility] [address]
--- OUTSIDE RECORDS SUMMARY | 2022-11-16 13:25 | External Medical Summary ---
Author Name Unknown Address [facility] [address] [place] [id number] Phone Organization K01:[facility] [address] [address] Laboratory Report Ordering Provider Test Date Status AMRÍA FRAZIER MD [id number] Final Obs # Observation Date Value Abnormality Reference Status Performing Location 0 Color, Urine [id number] STRAW Abnormal YEL [facility] [address] [facility] [address] 1 Clarity, Urine [id number] CLEAR CLEAR [facility] [address] [facility] [address] 2 Glucose, Urine [id number] 1000 Abnormal NEG [place] [address] [address] [facility] [address] 3 Bilirubin, Urine [id number] NEGATIVE NEG [facility] [address] [facility] [address] 4 Ketones, Urine [id number] NEGATIVE NEG [facility] [address] [facility] 5 Specific gravity, Urine [id number] 1.026 1.003-1.030 [facility] [address] [facility] 6 Hemoglobin, qual. UA [id number] NEGATIVE NEG [facility] [address] [facility] 7 pH, Urine [id number] 6.5 5.0-7.5 [facility] [address] [facility] 8 Protein, Urine [id number] 30 Abnormal NEG [facility] [address] [facility] 9 Urobilinogen, Urine [id number] NORMAL NORM [facility] [address] [facility] 10 Nitrite, Urine [id number] NEGATIVE NEG [place] [address] [address] [facility] 11 Leukocyte Esterase, Urine [id number] NEGATIVE NEG [facility] [address] [facility] 12 Bacteria, Urine [id number] NONE NONE [facility] 100 [address] [facility]. [facility] [address] 13 WBC, Urine [id number] 0-2 U02 Final [facility] [address] [facility]. [facility] [address] 14 RBC, Urine [id number] 0-2 U02 Final [facility] [address] [facility]. [facility] [address]
--- OUTSIDE RECORDS SUMMARY | 2022-11-16 13:25 | External Medical Summary ---
Author Name Unknown Address [facility] [address] [place] [id number] Phone Organization K01:[facility] [address] [place] [address] Laboratory Report Ordering Provider Test Date Status MARÍA FRAZIER MD [id number] Final Obs # Observation Date Value Abnormality Reference Status Performing Location 0 Protein, Urine [id number] 55 Maria Teresa [facility] 100 [address] [facility] [address] 1 Creatinine, Urine [id number] [address] [place] [address] [address] [facility] [address] 2 Protein / Creatinine, Urine [id number] 0.90 Above high normal <0.15 [place] [address] [address] [facility] [address]
--- OUTSIDE RECORDS SUMMARY | 2022-11-16 13:25 | External Medical Summary ---
Author Name Unknown Organization K01:[facility], [address] [place] [address] Laboratory Report Ordering Provider Test Date Status SUZETTE DANIELLE MD 06/29/2014 08:27:00-0400 Final Obs # Observation Date Value ABNL Reference Status Pe rforming Location 1 BUN 06/29/2014 14:35-0400 21 H 6-20 mg/dL Final 2 Creatinine 06/29/2014 14:35-0400 1.0 0.7-1.3 mg/dL Final GFR should be used to assess renal function. Plasma/Serum creatinine may not be able to properly reflect renal function in some cases. If patient is , multiply estimated GFR by 1.159.
--- OUTSIDE RECORDS SUMMARY | 2022-11-16 13:25 | External Medical Summary ---
Author Name Unknown Address [address] [place] [address] Phone Organization K01:[facility] [address] [facility] [address] Laboratory Report Ordering Provider Test Date Status LOILS BRADFORD MD [id number] Final Obs # Observation Date Value Abnormality Reference Status Performing Location 0 Albumin, Urine [id number] 31.69 Maria Teresa [facility] [address] [facility] [address] 1 Creatinine, Urine [id number] 19 Final [facility] [address] [facility] [address] 2 Microalbumin / Creatinine Ratio [id number] 1668 Above high normal <30 Final [facility] [address] [facility] [address]
--- OUTSIDE RECORDS SUMMARY | 2022-11-16 13:26 | External Medical Summary ---
Author Name RUFINOCuil [facility] Organization K08:[facility] [address] [place] [address] Support Name Relationship Address Phone [employer] [facility], GAUTAM PROV Unknown Unavaila ble Laboratory Report Ordering Provider Test Date Status GAUTAM DIAZ 02/03/2012 09:20:00-0500 Maria Teresa l Obs # Observation Date Value ABNL Reference Status Pe rforming Location 1 Magnesium 02/03/2012 11:28-0500 1.9 1.5-2.6 mg/dL Final
--- OUTSIDE RECORDS SUMMARY | 2022-11-16 13:26 | External Medical Summary ---
Author Name Unknown Organization K01:[facility], [address] [place] [address] Laboratory Report Ordering Provider Test Date Status KARLY ADLER JOE 08/22/2013 11:51:00-0400 Final Obs # Observation Date Value ABNL Reference Status Pe rforming Location 1 T4, Free 08/22/2013 21:29-0400 0.98 0.7-1.7 ng/dL Final
--- OUTSIDE RECORDS SUMMARY | 2022-11-16 13:26 | External Medical Summary ---
Author Name Unknown Organization K01:[facility], [address] [place] [id number] Laboratory Report Ordering Provider Test Date Status SUZETTE DANIELLE MD 08/02/2013 08:14:00-0400 Final Obs # Observation Date Value ABNL Reference Status Pe rforming Location 1 HbA1C 08/02/2013 15:37-0400 7.4 H 3.4-6.4 % Final 2 Glucose, estimated average 08/02/2013 15:37-0400 166 H <126 MG/DL Final
--- OUTSIDE RECORDS SUMMARY | 2022-11-16 13:26 | External Medical Summary ---
Author Name Unknown Organization K08:[facility] [address] [place] [address] Laboratory Report Ordering Provider Test Date Status SUZETTE DANIELLE MD 07/08/2013 07:57:00-0400 Final Obs # Observation Date Value ABNL Reference Status Pe rforming Location 1 BUN 07/08/2013 09:05-0400 29 H 6-20 mg/dL Final 2 Creatinine 07/08/2013 09:05-0400 1.0 0.7-1.3 mg/dL Final GFR should be used to assess renal function. Plasma/Serum creatinine may not be able to properly reflect renal function in some cases. If patient is , multiply estimated GFR by 1.159.
--- OUTSIDE RECORDS SUMMARY | 2022-11-16 13:26 | External Medical Summary ---
Author Name RADHA TEMPLETON Organization K08:[address] [place] [address] Support Name Relationship Address Phone MADELEINE GARCIA MD PROV Unknown Unavailabl e Laboratory Report Ordering Provider Test Date Status MADELEINE GARCIA MD 07/23/2012 07:25:00-0400 Final Obs # Observation Date Value ABNL Reference Status Pe rforming Location 1 BUN 07/23/2012 09:16-0400 25 H 6-20 mg/dL Final 2 Creatinine 07/23/2012 09:16-0400 1.0 0.7-1.3 mg/dL Final GFR should be used to assess renal function. Plasma/Serum creatinine may not be able to properly reflect renal function in some cases.
--- OUTSIDE RECORDS SUMMARY | 2022-11-16 13:26 | External Medical Summary ---
Author Name Unknown Organization K01[facility] [address] [place] [address] Laboratory Report Ordering Provider Test Date Status SUZETTE DANIELLE MD 08/02/2013 08:14:00-0400 Final Obs # Observation Date Value ABNL Reference Status Pe rforming Location 1 hours fasting 08/02/2013 14:06-0400 NOT PROVIDED hours Final 2 Triglyceride 08/02/2013 14:060400 155 <200 mg/dL Final TRIGLYCERIDE REFERENCE RANGES (mg/dL) [...]
--- OUTSIDE RECORDS SUMMARY | 2022-11-16 13:26 | External Medical Summary ---
Author Name Unknown Organization K08:[facility] [place] [address] Laboratory Report Ordering Provider Test Date Status MADELEINE GARCIA MD 01/31/2013 08:34:00-0500 Final Obs # Observation Date Value ABNL Reference Status Pe rforming Location 1 BUN 01/31/2013 09:30-0500 27 H 6-20 mg/dL Final 2 Creatinine 01/31/2013 09:30-0500 1.0 0.7-1.3 mg/dL Final GFR should be used to assess renal function. Plasma/Serum creatinine may not be able to properly reflect renal function in some cases.
--- OUTSIDE RECORDS SUMMARY | 2022-11-16 13:26 | External Medical Summary ---
Author Name Unknown Organization K01:[facility], [address] [place] [address] Laboratory Report Ordering Provider Test Date Status MADELEINE GARCIA MD 01/31/2013 08:34:00-0500 Final Obs # Observation Date Value ABNL Reference Status Pe rforming Location 1 HbA1C 01/31/2013 17:56-0500 6.9 H 3.4-6.4 % Final 2 Glucose, estimated average 01/31/2013 17:56-0500 151 H <126 MG/DL Final
--- OUTSIDE RECORDS SUMMARY | 2022-11-16 13:26 | External Medical Summary ---
Author Name RADHA TEMPLETON Organization K08:[address] [place] [address] Support Name Relationship Address Phone MADELEINE GARCIA MD PROV Unknown Unavailabl e Laboratory Report Ordering Provider Test Date Status MADELEINE GARCIA MD 01/22/2012 08:05:00-0500 Final Obs # Observation Date Value ABNL Reference Status Pe rforming Location 1 WBC 01/22/2012 08:45-0500 3.93 L 4.00-10.80 K/uL Final 2 RBC 01/22/2012 08:45-0500 4.36 L 4.50-5.25 M/uL Final 3 HGB 01/22/2012 08:45-0500 15.0 14.0-16.5 g/dL Final 4 HCT 01/22/2012 08:45-0500 42.4 40.0-47.0 % Final 5 MCV 01/22/2012 08:45-0500 97.2 82.0-99.5 fL Final 6 MCH 01/22/2012 08:45-0500 34.4 H 27.0-34.0 pg Final 7 MCHC 01/22/2012 08:45-0500 35.4 32.0-36.0 g/dL Final 8 RDW 01/22/2012 08:45-0500 12.4 11.5-15.5 % Final 9 PLT 01/22/2012 08:45-0500 158 140-400 K/uL Final 10 MPV 01/22/2012 08:45-0500 9.6 6.6-11.1 fL Final
--- OUTSIDE RECORDS SUMMARY | 2022-11-16 13:26 | External Medical Summary ---
Author Name Unknown Organization K01:[facility], [address] [place] [id number] Laboratory Report Ordering Provider Test Date Status KARLY ADLER PAC 08/22/2013 11:51:00-0400 Final Obs # Observation Date Value ABNL Reference Status Pe rforming Location 1 TSH 08/22/2013 21:29-0400 3.86 0.27-4.2 uIU/mL Final
--- OUTSIDE RECORDS SUMMARY | 2022-11-16 13:26 | External Medical Summary ---
Author Name RADHA TEMPLETON Organization K01:[facility], [address] [place] [address] Support Name Relationship Address Phone MADELEINE GARCIA MD PROV Unknown Unavailabl e Laboratory Report Ordering Provider Test Date Status MADELEINE GARCIA MD 01/22/2012 08:05:00-0500 Final Obs # Observation Date Value ABNL Reference Status Pe rforming Location 1 HbA1C 01/22/2012 15:51-0500 6.7 H 3.4-6.4 % Final 2 Glucose, estimated average 01/22/2012 15:51-0500 146 H <126 MG/DL Final
--- OUTSIDE RECORDS SUMMARY | 2022-11-16 13:26 | External Medical Summary ---
Author Name Unknown Organization K08:[facility] [address] [place] [address] Laboratory Report Ordering Provider Test Date Status MADELEINE GARCIA MD 03/21/2013 08:38:00-0500 Final Obs # Observation Date Value ABNL Reference Status Pe rforming Location 1 BUN 03/21/2013 10:10-0500 23 H 6-20 mg/dL Final 2 Creatinine 03/21/2013 10:10-0500 1.0 0.7-1.3 mg/dL Final GFR should be used to assess renal function. Plasma/Serum creatinine may not be able to properly reflect renal function in some cases.
--- OUTSIDE RECORDS SUMMARY | 2022-11-16 13:26 | External Medical Summary ---
Author Name Unknown Organization K01:[facility], [address] [place] [id number] Laboratory Report Ordering Provider Test Date Status KARLY ADLER PAC 06/15/2013 16:54:00-0400 Final Obs # Observation Date Value ABNL Reference Status Pe rforming Location 1 TSH 06/15/2013 21:45-0400 4.33 H 0.27-4.2 uIU/mL Final
--- OUTSIDE RECORDS SUMMARY | 2022-11-16 13:26 | External Medical Summary ---
Author Name RADHA TEMPLETON Organization K08:[facility] [address] [place] [address] Support Name Relationship Address Phone RADHA TEMPLETON, MADELEINE PROV Unknown Unavailabl e Laboratory Report Ordering Provider Test Date Status MADELEINE GARCIA MD 01/22/2012 08:05:00-0500 Final Obs # Observation Date Value ABNL Reference Status Pe rforming Location 1 hours fasting 01/22/2012 08:10-0500 13 hours Final 2 Triglyceride 01/22/2012 13:51-0500 92 <200 mg/dL Final TRIGLYCERIDE REFERENCE RANGES (mg/dL) [...]
--- OUTSIDE RECORDS SUMMARY | 2022-11-16 13:26 | External Medical Summary ---
Author Name Unknown Organization K08:[facility] [address] [place] [address] Laboratory Report Ordering Provider Test Date Status MADELEINE GARCIA MD 04/01/2013 07:40:00-0500 Final Obs # Observation Date Value ABNL Reference Status Pe rforming Location 1 Creatinine 04/01/2013 08:46-0500 1.0 0.7-1.3 mg/dL Final GFR should be used to assess renal function. Plasma/Serum creatinine may not be able to properly reflect renal function in some cases.
--- OUTSIDE RECORDS SUMMARY | 2022-11-16 13:26 | External Medical Summary ---
Author Name Solasta Organization K08:[facility] [address] [place] [address] Support Name Relationship Address Phone Solasta, GAUTAM PROV Unknown Unavaila ble Laboratory Report Ordering Provider Test Date Status GAUTAM MADDENGoTable JOE 02/03/2012 09:20:00-0500 Maria Teresa l Obs # Observation Date Value ABNL Reference Status Pe rforming Location 1 BUN 02/03/2012 11:28-0500 25 H 6-20 mg/dL Final 2 Creatinine 02/03/2012 11:28-0500 0.9 0.7-1.3 mg/dL Final GFR should be used to assess renal function. Plasma/Serum creatinine may not be able to properly reflect renal function in some cases.
--- OUTSIDE RECORDS SUMMARY | 2022-11-16 13:26 | External Medical Summary ---
Author Name RADHA TEMPLETON Organization K08:[address] [place] [address] Support Name Relationship Address Phone MADELEINE GARCIA MD PROV Unknown Unavailabl e Laboratory Report Ordering Provider Test Date Status MADELEINE GARCIA MD 01/22/2012 08:05:00-0500 Final Obs # Observation Date Value ABNL Reference Status Pe rforming Location 1 Phosphate 01/22/2012 10:22-0500 3.7 2.5-4.8 mg/dL Final
--- OUTSIDE RECORDS SUMMARY | 2022-11-16 13:26 | External Medical Summary ---
Author Name Unknown Organization K08:[facility] [address] [place] [address] Laboratory Report Ordering Provider Test Date Status MADELEINE GARCIA MD 01/31/2013 08:34:00-0500 Final Obs # Observation Date Value ABNL Reference Status Pe rforming Location 1 HGB 01/31/2013 09:44-0500 15.5 14.0-16.5 g/dL Final
--- OUTSIDE RECORDS SUMMARY | 2022-11-16 13:26 | External Medical Summary ---
Author Name RADHA TEMPLETON [facility] [place] [address] Support Name Relationship Address Phone MADELEINE GARCIA MD PROV Unknown Unavailabl e Laboratory Report Ordering Provider Test Date Status MADELEINE GARCIA MD 07/23/2012 07:25:00-0400 Final Obs # Observation Date Value ABNL Reference Status Pe rforming Location 1 hours fasting 07/23/2012 07:34-0400 12 hours Final 2 Triglyceride 07/23/2012 15:09-0400 144 <200 mg/dL Final TRIGLYCERIDE REFERENCE RANGES (mg/dL) [...]
--- OUTSIDE RECORDS SUMMARY | 2022-11-16 13:26 | External Medical Summary ---
Author Name Unknown Organization K01:[facility], [address] [place] [address] Laboratory Report Ordering Provider Test Date Status SUZETTE DANIELLE MD 08/02/2013 08:14:00-0400 Final Obs # Observation Date Value ABNL Reference Status Pe rforming Location 1 Albumin, Urine 08/02/2013 15:21-0400 4.20 H 0-2 mg/dL Final 2 Creatinine, Random Urine 08/02/2013 15:21-0400 71 mg/dL Final 3 Microalbumin / Creatinine Ratio 08/02/2013 15:21-0400 59 H <31 mg/g creat Final Normal: 0- 29 mg/g creatinine High: 30-300 mg/g creatinine Very High and Nephrotic: >300 mg/g creatinine
--- OUTSIDE RECORDS SUMMARY | 2022-11-16 13:26 | External Medical Summary ---
Author Name RADHA TEMPLETON Organization K01:[facility], [address] [place] [address] Support Name Relationship Address Phone RADHA TEMPLETON, MADELEINE PROV Unknown Unavailabl e Laboratory Report Ordering Provider Test Date Status MADELEINE GARCIA MD 07/23/2012 07:25:00-0400 Final Obs # Observation Date Value ABNL Reference Status Pe rforming Location 1 Albumin, Urine 07/23/2012 22:31-0400 7.00 H 0-2 mg/dL Final 2 Creatinine, Random Urine 07/23/2012 22:31-0400 101 mg/dL Final 3 Microalbumin / Creatinine Ratio 07/23/2012 22:31-0400 69 H <31 mg/g creat Final Normal: 0- 29 mg/g creatinine High: 30-300 mg/g creatinine Very High and Nephrotic: >300 mg/g creatinine
--- OUTSIDE RECORDS SUMMARY | 2022-11-16 13:26 | External Medical Summary ---
Author Name Unknown Organization K01:[facility], [address] [facility] [address] Laboratory Report Ordering Provider Test Date Status KARLY ADLER PAC 06/15/2013 16:54:00-0400 Final Obs # Observation Date Value ABNL Reference Status Pe rforming Location 1 WBC 06/15/2013 21: 6.64 4.00-10.80 K/uL Final 2 RBC 06/15/2013 21: 4.59 4.50-5.25 M/uL Final 3 HGB 06/15/2013 21: 15.4 14.0-16.5 g/dL Final 4 HCT 06/15/2013 21: 44.1 40.0-47.0 % Final 5 MCV 06/15/2013 21: 96.1 82.0-99.5 fL Final 6 MCH 06/15/2013 21: 33.6 27.0-34.0 pg Final 7 MCHC 06/15/2013 21: 34.9 32.0-36.0 g/dL Final 8 RDW 06/15/2013 21: 12.5 11.5-15.5 % Final 9 PLT 06/15/2013 21: 167 140-400 K/uL Final 10 MPV 06/15/2013 21: 10.9 6.6-11.1 fL Final
--- OUTSIDE RECORDS SUMMARY | 2022-11-16 13:26 | External Medical Summary ---
Author Name Unknown Organization K01:[facility], [address] [place] [id number] Laboratory Report Ordering Provider Test Date Status KARLY ADLER PAC 06/15/2013 16:54:00-0400 Final Obs # Observation Date Value ABNL Reference Status Pe rforming Location 1 BUN 06/15/2013 21:33-0400 28 H 6-20 mg/dL Final 2 Creatinine 06/15/2013 21:33-0400 1.1 0.7-1.3 mg/dL Final GFR should be used to assess renal function. Plasma/Serum creatinine may not be able to properly reflect renal function in some cases. If patient is , multiply estimated GFR by 1.159.
--- OUTSIDE RECORDS SUMMARY | 2022-11-16 13:26 | External Medical Summary ---
Author Name Unknown Organization K08:[facility] [address] [place] [address] Laboratory Report Ordering Provider Test Date Status MADELEINE GARCIA MD 01/31/2013 08:34:00-0500 Final Obs # Observation Date Value ABNL Reference Status Pe rforming Location 1 hours fasting 01/31/2013 11:10-0500 12 hours Final 2 Triglyceride 01/31/2013 15:17-0500 166 <200 mg/dL Final TRIGLYCERIDE REFERENCE RANGES (mg/dL) [...]
--- OUTSIDE RECORDS SUMMARY | 2022-11-16 13:26 | External Medical Summary ---
Author Name RADHA TEMPLETON Organization K01:[facility], [address] [place] [address] Support Name Relationship Address Phone MADELEINE GARCIA MD PROV Unknown Unavailabl e Laboratory Report Ordering Provider Test Date Status MADELEINE GARCIA MD 07/23/2012 07:25:00-0400 Final Obs # Observation Date Value ABNL Reference Status Pe rforming Location 1 HbA1C 07/23/2012 16:40-0400 7.1 H 3.4-6.4 % Final 2 Glucose, estimated average 07/23/2012 16:40-0400 157 H <126 MG/DL Final
--- OUTSIDE RECORDS SUMMARY | 2022-11-16 13:26 | External Medical Summary ---
Author Name Unknown Organization K01:[facility] [address], [address] [facility] [address] Laboratory Report Ordering Provider Test Date Status KARLY ADLER JOE 06/15/2013 16:54:00-0400 Final Obs # Observation Date Value ABNL Reference Status Pe rforming Location 1 Magnesium 06/15/2013 21:33-0400 1.7 1.5-2.6 mg/dL Final
--- OUTSIDE RECORDS SUMMARY | 2022-11-16 13:26 | External Medical Summary ---
Author Name Unknown Organization K08:[facility] [address] [place] [address] Laboratory Report Ordering Provider Test Date Status MADELEINE GARCIA MD 04/01/2013 07:40:00-0500 Final Obs # Observation Date Value ABNL Reference Status Pe rforming Location 1 BUN 04/01/2013 08:46-0500 32 H 6-20 mg/dL Final
--- OUTSIDE RECORDS SUMMARY | 2022-11-16 13:26 | External Medical Summary ---
Author Name Unknown Organization K08:[facility] [address] [place] [address] Laboratory Report Ordering Provider Test Date Status MADELEINE GARCIA MD 01/31/2013 08:34:00-0500 Final Obs # Observation Date Value ABNL Reference Status Pe rforming Location 1 Phosphate 01/31/2013 09:30-0500 3.6 2.5-4.8 mg/dL Final
--- OUTSIDE RECORDS SUMMARY | 2022-11-16 13:26 | External Medical Summary ---
Author Name MARISELA DIAZ Organization K08:[address] [place] [address] Support Name Relationship Address Phone ROMELIA BRUNER PROV Unknown Unavailabl e Laboratory Report Ordering Provider Test Date Status ROMELIA DIAZ 07/16/2011 08:55:00-0400 Final Obs # Observation Date Value ABNL Reference Status Pe rforming Location 1 BUN 07/16/2011 10:22-0400 26 H 6-20 mg/dL Final 2 Creatinine 07/16/2011 10:22-0400 1.0 0.7-1.3 mg/dL Final GFR should be used to assess renal function. Plasma/Serum creatinine may not be able to properly reflect renal function in some cases.
--- OUTSIDE RECORDS SUMMARY | 2022-11-16 13:27 | External Medical Summary ---
Author Name ROCK ENG DO Organization K01:[facility], [address] [place] [place] [address] Support Name Relationship Address Phone ROCK ENG DO PROV Unknown Unavailabl e Laboratory Report Ordering Provider Test Date Status ROCK ENG DO 12/18/2010 12:57-0400 Final Obs # Observation Date Value ABNL Reference Status Pe rforming Location 1 BUN 1 17:33-040 0 25 H 6-20 mg/dL Final 2 Creatinine 1 17:33-040 0 0.9 0.7-1.3 mg/dL Final 3 Creatinine 1 17:33-040 0 GFR should be used to assess renal function. Plasma/Serum creatinine may not be able to properly reflect renal function in some cases. Final 4 Sodium 1 17:33-040 0 139 135-146 mmol/L Final 5 Potassium 1 17:33-040 0 3.9 3.5-5.1 mmol/L Final 6 Cl 1 17:33-040 0 100 98-111 mmol/L Final 7 CO2 1 17:33-040 0 30 22-32 mmol/L Final 8 Glucose 1 17:33-040 0 119 70-120 mg/dL Final 9 Anion gap 1 17:33-040 0 9 7-15 mmol/L Final 10 Calcium 1 17:33-040 0 10.4 8.3-10.5 mg/dL Final 11 GFR (estimated) 1 17:33-040 0 >60.0 >60 mL/min Final
--- OUTSIDE RECORDS SUMMARY | 2022-11-16 13:27 | External Medical Summary ---
Author Name Unknown Organization K01:[facility], [address] [place] [address] Support Name Relationship Address Phone NORMAN PETER MD PROV Unknown Unavailabl e Laboratory Report Ordering Provider Test Date Status NORMAN PETER MD 11/26/2010 10:50-0400 Final Obs # Observation Date Value ABNL Reference Status Pe rforming Location 1 PT 11/26/2010 18:53-0400 13.4 12.5-14.3 seconds Final 2 INR 11/26/2010 18:53-0400 1.00 0.94-1.12 Final
--- OUTSIDE RECORDS SUMMARY | 2022-11-16 13:27 | External Medical Summary ---
Author Name NORMAN PETER MD Organization K01:[facility], [address] [address] Support Name Relationship Address Phone NORMAN PETER MD PROV Unknown Unavailabl e Laboratory Report Ordering Provider Test Date Status NORMAN PETER MD 02/04/2011 16:00-0500 Final Obs # Observation Date Value ABNL Reference Status Pe rforming Location 1 LDL (DIRECT MEASURE) 02/04/2011 21:34-0500 101 0-129 mg/dL Final
--- OUTSIDE RECORDS SUMMARY | 2022-11-16 13:27 | External Medical Summary ---
Author Name Unknown Organization K01:[facility], [address] [place] [address] Support Name Relationship Address Phone MADELEINE GARCIA MD PROV Unknown Unavailab le Laboratory Report Ordering Provider Test Date Status MADELEINE GARCIA MD 07/08/2010 08:00-0400 Final Obs # Observation Date Value ABNL Reference Status Pe rforming Location 1 Albumin, Urine 07/08/2010 18:20-0400 13.90 H 0-2 mg/dL Final 2 Creatinine, Random Urine 07/08/2010 18:20-0400 90 mg/dL Final 3 Microalbumin Ratio 07/08/2010 18:20-0400 154 H <31 mg/g creat Final
--- OUTSIDE RECORDS SUMMARY | 2022-11-16 13:27 | External Medical Summary ---
Author Name ROCK ENG DO Organization K01:[facility], [address] [address] Support Name Relationship Address Phone ROCK ENG DO PROV Unknown Unavailabl e Laboratory Report Ordering Provider Test Date Status ROCK ENG DO 12/18/2010 13:00-0400 Final Obs # Observation Date Value ABNL Reference Status Pe rforming Location 1 Specimen site 12/18/2010 13:52-0400 Final URINE LESS THAN 1,000 COLONIES/ML (NO GROWTH) FINAL
--- OUTSIDE RECORDS SUMMARY | 2022-11-16 13:27 | External Medical Summary ---
Author Name RADHA TEMPLETON Organization K08:[address] [place] [address] Support Name Relationship Address Phone MADELEINE GARCIA MD PROV Unknown Unavailabl e Laboratory Report Ordering Provider Test Date Status MADELEINE GARCIA MD 07/16/2011 08:35:00-0400 Final Obs # Observation Date Value ABNL Reference Status Pe rforming Location 1 BUN 07/16/2011 10:130400 26 H 6-20 mg/dL Final 2 Creatinine 07/16/2011 10:0 1.0 0.7-1.3 mg/dL Final GFR should be used to assess renal function. Plasma/Serum creatinine may not be able to properly reflect renal function in some cases.
--- OUTSIDE RECORDS SUMMARY | 2022-11-16 13:27 | External Medical Summary ---
Author Name NORMAN PETER MD Organization K08:[facility] [address] [place] [address] Support Name Relationship Address Phone NORMAN PETER MD PROV Unknown Unavailabl e Laboratory Report Ordering Provider Test Date Status NORMAN PETER MD 02/04/2011 16:00-0500 Final Obs # Observation Date Value ABNL Reference Status Pe rforming Location 1 WBC 02/04/2011 16:27-0500 5.30 4.00-10.80 K/uL Final 2 RBC 02/04/2011 16:27-0500 4.15 L 4.50-5.25 M/uL Final 3 HGB 02/04/2011 16:27-0500 13.6 L 14.0-16.5 g/dL Final 4 HCT 02/04/2011 16:27-0500 39.5 L 40.0-47.0 % Final 5 MCV 02/04/2011 16:27-0500 95.2 82.0-99.5 fL Final 6 MCH 02/04/2011 16:27-0500 32.8 27.0-34.0 pg Final 7 MCHC 02/04/2011 16:27-0500 34.4 32.0-36.0 g/dL Final 8 RDW 02/04/2011 16:27-0500 12.9 11.5-15.5 % Final 9 PLATELET COUNT 02/04/2011 16:27-0500 205 140-400 K/uL Final 10 MPV 02/04/2011 16:27-0500 9.0 6.6-11.1 fL Final
--- OUTSIDE RECORDS SUMMARY | 2022-11-16 13:27 | External Medical Summary ---
Author Name Unknown Organization K09:[facility], [address] , [place] [address] Support Name Relationship Address Phone NORMAN PETER MD PROV Unknown Unavailabl e Laboratory Report Ordering Provider Test Date Status NORMAN PETER MD 11/26/2010 10:50-0400 Final Obs # Observation Date Value ABNL Reference Status Pe rforming Location 1 BUN 1 15:24-040 0 25 H 6-20 mg/dL Final 2 Creatinine 1 15:24-040 0 0.8 0.7-1.3 mg/dL Final 3 Creatinine 1 15:24-040 0 GFR should be used to assess renal function. Plasma/Serum creatinine may not be able to properly reflect renal function in some cases. Final 4 Sodium 1 15:24-040 0 140 135-146 mmol/L Final 5 Potassium 1 15:24-040 0 3.8 3.5-5.1 mmol/L Final 6 Cl 1 15:24-040 0 101 98-111 mmol/L Final 7 CO2 1 15:24-040 0 27 22-32 mmol/L Final 8 Glucose 1 15:24-040 0 116 70-120 mg/dL Final 9 Anion gap 1 15:24-040 0 12 7-15 mmol/L Final 10 Calcium 1 15:24-040 0 9.6 8.3-10.5 mg/dL Final 11 GFR / 1.73 sq M.predicted 1 15:24-040 0 >60.0 >60 mL/min Final
--- OUTSIDE RECORDS SUMMARY | 2022-11-16 13:27 | External Medical Summary ---
Author Name ROCK ENG DO Organization K01:[facility], [address] [address] Support Name Relationship Address Phone ROCK ENG DO PROV Unknown Unavailabl e Laboratory Report Ordering Provider Test Date Status ROCK ENG DO 12/18/2010 12:57-0400 Final Obs # Observation Date Value ABNL Reference Status Pe rforming Location 1 Iron 12/18/2010 17:33-0400 89 45-160 ug/dL Final 2 Iron-binding capacity 12/18/2010 17:33-0400 233 228-428 ug/dL Final 3 Transferrin Sat % 12/18/2010 17:33-0400 38 % Final
--- OUTSIDE RECORDS SUMMARY | 2022-11-16 13:27 | External Medical Summary ---
Author Name RADHA TEMPLETON Organization K01:[facility], [address] [address] Support Name Relationship Address Phone MADELEINE GARCIA MD PROV Unknown Unavailabl e Laboratory Report Ordering Provider Test Date Status MADELEINE GARCIA MD 07/16/2011 08:35:00-0400 Final Obs # Observation Date Value ABNL Reference Status Pe rforming Location 1 PSA 07/16/2011 16:30-0400 1.16 <4.4 ng/mL Final
--- OUTSIDE RECORDS SUMMARY | 2022-11-16 13:27 | External Medical Summary ---
Author Name Unknown Organization K08:[facility] [address] [place] [address] Support Name Relationship Address Phone MADELEINE GARCIA MD PROV Unknown Unavailab le Laboratory Report Ordering Provider Test Date Status MADELEINE GARCIA MD 11/11/2010 08:00-0400 Final Obs # Observation Date Value ABNL Reference Status Pe rforming Location 1 HOURS FASTING 11/12/19 11 08:01-04 00 14 hours Final 2 Triglyceride 11/12/19 11 14: 00 185 <200 mg/dL Final 3 Triglyceride 11/12/19 11 14: 00 Final 4 Triglyceride 11/12/19 11 14: 00 TRIGLYCERIDE REFERENCE RANGES (mg/dL) Final 5 Triglyceride 11/12/19 11 14: 00 Final 6 Triglyceride 11/12/19 11 14: 00 <150 NORMAL Final 7 Triglyceride 11/12/19 11 14: 00 150-199 BORDERLINE HIGH Final 8 Triglyceride 11/12/19 11 14: 00 200-499 HIGH Final 9 Triglyceride 11/12/19 11 14: 00 >499 VERY HIGH Final 10 Cholesterol 11/12/19 11 14: 00 198 <200 mg/dL Final 11 HDL 11/12/19 11 14: 00 55 40-59 mg/dL Final 12 Cholesterol / HDL ratio 11/12/19 11 14: 00 3.6 Final 13 LDL (calculated) 11/12/19 11 14: 00 106 0-129 mg/dL Final 14 LDL (calculated) 11/12/19 11 14: 00 Final 15 LDL (calculated) 11/12/19 11 14:- 00 LIPID PANEL REFERENCE RANGES (mg/dL) Final 16 LDL (calculated) 11/12/19 11 14: 00 Final 17 LDL (calculated) 11/12/19 11 14:27-04 00 LDL CHOLESTEROL Final 18 LDL (calculated) 11/12/19 11 14:27-04 00 <100 OPTIMAL GOAL FOR HIGH RISK PATIENTS Final 19 LDL (calculated) 11/12/19 11 14:27-04 00 100-129 NEAR OR ABOVE NORMAL Final 20 LDL (calculated) 11/12/19 11 14:27-04 00 130-159 BORDERLINE HIGH Final 21 LDL (calculated) 11/12/19 11 14:27-04 00 160-189 HIGH Final 22 LDL (calculated) 11/12/19 11 14:27-04 00 >189 VERY HIGH Final 23 LDL (calculated) 11/12/19 11 14:27-04 00 Final 24 LDL (calculated) 11/12/19 11 14:27-04 00 TOTAL CHOLESTEROL Final 25 LDL (calculated) 11/12/19 11 14:27-04 00 <200 DESIRABLE Final 26 LDL (calculated) 11/12/19 11 14:27-04 00 200-239 BORDERLINE HIGH Final 27 LDL (calculated) 11/12/19 11 14:27-04 00 >239 HIGH Final 28 LDL (calculated) 11/12/19 11 14:27-04 00 Final 29 LDL (calculated) 11/12/19 11 14:27-04 00 HDL [id number] Final 30 LDL (calculated) 11/12/19 11 14:27-04 00 <40 LOW Final 31 LDL (calculated) 11/12/19 11 14:27-04 00 40-59 NORMAL Final 32 LDL (calculated) 11/12/19 11 14:27-04 00 >59 HIGH Final
--- OUTSIDE RECORDS SUMMARY | 2022-11-16 13:27 | External Medical Summary ---
Author Name RADHA TEMPLETON Organization K01:[facility], [address] [address] Support Name Relationship Address Phone MADELEINE GARCIA MD PROV Unknown Unavailabl e Laboratory Report Ordering Provider Test Date Status MADELEINE GARCIA MD 03/20/2011 08:40:00-0500 Final Obs # Observation Date Value ABNL Reference Status Pe rforming Location 1 HEMOGLOBIN, A1C 03/20/2011 16:03-0500 6.4 3.4-6.4 % Final 2 EST AVG GLUCOSE 03/20/2011 16:03-0500 137 H <126 MG/DL Final
--- OUTSIDE RECORDS SUMMARY | 2022-11-16 13:27 | External Medical Summary ---
Author Name NORMAN PETER MD Organization K01[facility] [address] [address] Support Name Relationship Address Phone NORMAN PETER MD PROV Unknown Unavailabl e Laboratory Report Ordering Provider Test Date Status NORMAN PETER MD 02/04/2011 16:00-0500 Final Obs # Observation Date Value ABNL Reference Status Pe rforming Location 1 BUN 1 21:34-050 0 25 H 6-20 mg/dL Final 2 Creatinine 1 21:34-050 0 0.9 0.7-1.3 mg/dL Final 3 Creatinine 1 21:34-050 0 GFR should be used to assess renal function. Plasma/Serum creatinine may not be able to properly reflect renal function in some cases. Final 4 SODIUM 1 21:34-050 0 143 135-146 mmol/L Final 5 POTASSIUM 1 21:34-050 0 4.1 3.5-5.1 mmol/L Final 6 Cl 1 21:34-050 0 105 98-111 mmol/L Final 7 CO2 1 21:34-050 0 29 22-32 mmol/L Final 8 GLUCOSE 1 21:34-050 0 111 70-120 mg/dL Final 9 Anion gap 1 21:34-050 0 9 7-15 mmol/L Final 10 Calcium 1 21:34-050 0 9.6 8.3-10.5 mg/dL Final 11 GFR ESTIMATED 1 21:34-050 0 >60.0 >60 mL/min Final
--- OUTSIDE RECORDS SUMMARY | 2022-11-16 13:27 | External Medical Summary ---
Author Name ROCK ENG DO Mary Organization K01:[facility], [address] [address] Support Name Relationship Address Phone ROCK ENG DO Mary PROV Unknown Unavailabl e Laboratory Report Ordering Provider Test Date Status [place] 12/18/2010 12:59-0400 Final Obs # Observation Date Value ABNL Reference Status Pe rforming Location 1 Color, UA 14:21-040 0 YELLOW YEL Final 2 Clarity, UA 14:21-040 0 CLEAR CLEAR Final 3 Glucose, UA 14:21-040 0 NEGATIVE NEG mg/dL Final 4 Bilirubin, UA 14:21-040 0 NEGATIVE NEG Final 5 Ketones, UA 14:21-040 0 NEGATIVE NEG mg/dL Final 6 SPECIFIC GRAVITY 14:21-040 0 1.009 1.003-1.030 Final 7 Hemoglobin, qual. UA 14:21-040 0 NEGATIVE NEG Final 8 pH, UA 14:21-040 0 6.0 5-6 units Final 9 Protein, UA 14:21-040 0 NEGATIVE NEG mg/dL Final 10 Urobilinogen, UA 14:21-040 0 NORMAL NORM EU/dL Final 11 Nitrite, UA 14:21-040 0 NEGATIVE NEG Final 12 Leukocyte Esterase, UA 14:21-040 0 NEGATIVE NEG Final 13 Comment, UA 14:21-040 0 SCREEN NEGATIVE - MICROSCOPIC NOT DONE Final
--- OUTSIDE RECORDS SUMMARY | 2022-11-16 13:27 | External Medical Summary ---
Author Name BERTHA SENIOR MD Organization K01:[facility] [address] [address] Support Name Relationship Address Phone BERTHA SENIOR MD [facility] Unknown Unavaila ble Laboratory Report Ordering Provider Test Date Status BERTHA SENIOR MD 12/18/2010 12:57-0400 Final Obs # Observation Date Value ABNL Reference Status Pe rforming Location 1 ABO and Rh (D) 12/18/2010 16:24-0400 A POSITIVE Final
--- OUTSIDE RECORDS SUMMARY | 2022-11-16 13:27 | External Medical Summary ---
Author Name RADHA TEMPLETON [facility] [place] [address] Support Name Relationship Address Phone MADELEINE GARCIA MD PROV Unknown Unavailabl e Laboratory Report Ordering Provider Test Date Status MADELEINE GARCIA MD 03/20/2011 08:40:00-0500 Final Obs # Observation Date Value ABNL Reference Status Pe rforming Location 1 HOURS FASTING 03/20/2011 08:48-0500 12 hours Final 2 TRIGLYCERIDES 03/20/2011 15:55-0500 125 <200 mg/dL Final TRIGLYCERIDE REFERENCE RANGES (mg/dL) <150 NORMAL 150-199 BORDERLINE HIGH 200-499 HIGH >499 VERY HIGH TOTAL CHOLESTEROL REFERENCE RANGES(mg/dL) <200 DESIRABLE 200-239 BORDERLINE HIGH >239 HIGH HDL CHOLESTEROL REFERENCE RANGES(mg/dL) <40 LOW >59 HIGH LDL CHOLESTEROL REFERENCE RANGES(mg/dL) <100 OPTIMAL GOAL FOR HIGH RISK PATIENTS 100-129 NEAR OR ABOVE NORMAL 130-159 BORDERLINE HIGH 160-189 HIGH >189 VERY HIGH
--- OUTSIDE RECORDS SUMMARY | 2022-11-16 13:27 | External Medical Summary ---
Author Name Unknown Organization K01:[facility], [address] [address] Support Name Relationship Address Phone MADELEINE GARCIA MD PROV Unknown Unavailab le Laboratory Report Ordering Provider Test Date Status MADELEINE GARCIA MD 11/11/2010 08:00-0400 Final Obs # Observation Date Value ABNL Reference Status Pe rforming Location 1 HbA1C 11/11/2010 16:01-0400 6.3 3.4-6.4 % Final 2 Glucose, estimated average 11/11/2010 16:01-0400 134 H <126 MG/DL Final
--- OUTSIDE RECORDS SUMMARY | 2022-11-16 13:27 | External Medical Summary ---
Author Name Unknown [facility]08[facility] [place] [address] Support Name Relationship Address Phone MADELEINE GARCIA MD PROV Unknown Unavailab le Laboratory Report Ordering Provider Test Date Status MADELEINE GARCIA MD 11/11/2010 08:00-0400 Final Obs # Observation Date Value ABNL Reference Status Pe rforming Location 1 BUN 1 09:46-040 0 22 H 6-20 mg/dL Final 2 Creatinine 1 09:46-040 0 0.9 0.7-1.3 mg/dL Final 3 Creatinine 1 09:46-040 0 GFR should be used to assess renal function. Plasma/Serum creatinine may not be able to properly reflect renal function in some cases. Final 4 Sodium 1 09:46-040 0 139 135-146 mmol/L Final 5 Potassium 1 09:46-040 0 4.0 3.5-5.1 mmol/L Final 6 Cl 1 09:46-040 0 102 98-111 mmol/L Final 7 CO2 1 09:46-040 0 31 22-32 mmol/L Final 8 Glucose 1 09:46-040 0 179 H 70-120 mg/dL Final 9 Albumin, Serum 1 09:46-040 0 4.2 3.8-5.0 g/dL Final 10 AST (Aspartate aminotransferase ) 1 09:46-040 0 22 10-50 U/L Final 11 Alk Phos 1 09:46-040 0 42 25-115 U/L Final 12 Bilirubin, Total 1 09:46-040 0 0.5 0.3-1.3 mg/dL Final 13 Calcium 1 09:46-040 0 9.7 8.3-10.5 mg/dL Final 14 Protein 1 09:46-040 0 6.8 6.0-8.3 g/dL Final 15 ALT (Alanine aminotransferase ) 1 09:46-040 0 18 10-50 U/L Final 16 Anion gap 1 09:46-040 0 6 L 7-15 mmol/L Final 17 GFR / 1.73 sq M.predicted 1 09:46-040 0 >60.0 >60 mL/min Final
--- OUTSIDE RECORDS SUMMARY | 2022-11-16 13:27 | External Medical Summary ---
Author Name RADHA TMEPLETON Organization K08:[address] [place] [address] Support Name Relationship Address Phone MADELEINE GARCIA MD PROV Unknown Unavailabl e Laboratory Report Ordering Provider Test Date Status MADELEINE GARCIA MD 03/20/2011 08:40:00-0500 Final Obs # Observation Date Value ABNL Reference Status Pe rforming Location 1 BUN 03/20/2011 10:26-0500 18 6-20 mg/dL Final 2 CREATININE 03/20/2011 10:26-0500 0.9 0.7-1.3 mg/dL Final GFR should be used to assess renal function. Plasma/Serum creatinine may not be able to properly reflect renal function in some cases.
--- OUTSIDE RECORDS SUMMARY | 2022-11-16 13:27 | External Medical Summary ---
Author Name VELASQUEZ GRE[place]OCK Mary Organization K01:[facility], [address] [address] Support Name Relationship Address Phone ORCK ENG DO PROV Unknown Unavailabl e Laboratory Report Ordering Provider Test Date Status ENG ROCK GREENE 12/18/2010 12:57-0400 Final Obs # Observation Date Value ABNL Reference Status Pe rforming Location 1 WBC 12/18/2010 15:05-0400 6.01 4.00-10.80 K/uL Final 2 RBC 12/18/2010 15:05-0400 4.30 L 4.50-5.25 M/uL Final 3 HGB 12/18/2010 15:05-0400 14.5 14.0-16.5 g/dL Final 4 HCT 12/18/2010 15:05-0400 40.8 40.0-47.0 % Final 5 MCV 12/18/2010 15:05-0400 94.9 82.0-99.5 fL Final 6 MCH 12/18/2010 15:05-0400 33.7 27.0-34.0 pg Final 7 MCHC 12/18/2010 15:05-0400 35.5 32.0-36.0 g/dL Final 8 RDW 12/18/2010 15:05-0400 12.6 11.5-15.5 % Final 9 PLT 12/18/2010 15:05-0400 165 140-400 K/uL Final 10 MPV 12/18/2010 15:05-0400 10.2 6.6-11.1 fL Final
--- OUTSIDE RECORDS SUMMARY | 2022-11-16 13:27 | External Medical Summary ---
Author Name RADHA TEMPLETON [facility] K08[facility] [place] [address] Support Name Relationship Address Phone MADELEINE GARCIA MD PROV Unknown Unavailabl e Laboratory Report Ordering Provider Test Date Status MADELEINE GARCIA MD 07/16/2011 08:35:00-0400 Final Obs # Observation Date Value ABNL Reference Status Pe rforming Location 1 hours fasting 07/16/2011 08:47-0400 15 hours Final 2 Triglyceride 07/16/2011 16:12-0400 103 <200 mg/dL Final TRIGLYCERIDE REFERENCE RANGES (mg/dL) [...]
--- OUTSIDE RECORDS SUMMARY | 2022-11-16 13:27 | External Medical Summary ---
Author Name Unknown Organization K01:[facility], [address] [id number] Support Name Relationship Address Phone NORMAN PETER MD PROV Unknown Unavailabl e Laboratory Report Ordering Provider Test Date Status NORMAN PETER MD 11/26/2010 10:50-0400 Final Obs # Observation Date Value ABNL Reference Status Pe rforming Location 1 WBC 11/26/2010 18:38-0400 5.47 4.00-10.80 K/uL Final 2 RBC 11/26/2010 18:38-0400 4.32 L 4.50-5.25 M/uL Final 3 HGB 11/26/2010 18:38-0400 14.7 14.0-16.5 g/dL Final 4 HCT 11/26/2010 18:38-0400 41.9 40.0-47.0 % Final 5 MCV 11/26/2010 18:38-0400 97.0 82.0-99.5 fL Final 6 MCH 11/26/2010 18:38-0400 34.0 27.0-34.0 pg Final 7 MCHC 11/26/2010 18:38-0400 35.1 32.0-36.0 g/dL Final 8 RDW 11/26/2010 18:38-0400 12.7 11.5-15.5 % Final 9 PLT 11/26/2010 18:38-0400 178 140-400 K/uL Final 10 MPV 11/26/2010 18:38-0400 10.3 6.6-11.1 fL Final
--- OUTSIDE RECORDS SUMMARY | 2022-11-16 13:27 | External Medical Summary ---
Author Name RADHA TEMPLETON [facility] K01[facility], [address] [address] Support Name Relationship Address Phone RADHA TEMPLETON, MADELEINE PROV Unknown Unavailabl e Laboratory Report Ordering Provider Test Date Status MADELEINE GARCIA MD 07/16/2011 08:35:00-0400 Final Obs # Observation Date Value ABNL Reference Status Pe rforming Location 1 Albumin, Urine 07/16/2011 16:58-0400 13.50 H 0-2 mg/dL Final 2 Creatinine, Random Urine 07/16/2011 16:58-0400 123 mg/dL Final 3 Microalbumin / Creatinine Ratio 07/16/2011 16:58-0400 110 H <31 mg/g creat Final Normal: 0- 29 mg/g creatinine High: 30-300 mg/g creatinine Very High and Nephrotic: >300 mg/g creatinine
--- OUTSIDE RECORDS SUMMARY | 2022-11-16 13:27 | External Medical Summary ---
Author Name Unknown Organization K01:[facility], [address] [id number] Support Name Relationship Address Phone NORMAN PETER MD PROV Unknown Unavailabl e Laboratory Report Ordering Provider Test Date Status NORMAN PETER MD 11/26/2010 10:50-0400 Final Obs # Observation Date Value ABNL Reference Status Pe rforming Location 1 aPTT 11/26/2010 18:53-0400 27 23-35 seconds Final
--- OUTSIDE RECORDS SUMMARY | 2022-11-16 13:27 | External Medical Summary ---
Author Name ROCK ENG DO Organization K01:[facility], [address] [address] Support Name Relationship Address Phone ROCK ENG DO PROV Unknown Unavailabl e Laboratory Report Ordering Provider Test Date Status ROCK ENG DO 12/18/2010 12:57-0400 Final Obs # Observation Date Value ABNL Reference Status Pe rforming Location 1 ABO and Rh (D) 1 16:24-040 0 A POSITIVE Final 2 Antibody Screen 1 16:24-040 0 NEGATIVE Final 3 SAMPLE EXPIRES 1 16:24-040 0 12/29/2010 Final 4 Unit Number 1 08:58-040 0 [id number] Final 5 BLOOD COMPONENT TYPE 1 08:58-040 0 RBC LEUKOREDUCED Final 6 UNIT DIVISION 1 08:58-040 0 00 Final 7 STATUS OF UNIT 1 06:20-040 0 REL FROM ALLOC Final 8 Crossmatch result 1 08:58-040 0 ELECTRONICALLY COMPATIBLE Final 9 Unit Number 1 08:58-040 0 [id number] Final 10 BLOOD COMPONENT TYPE 1 08:58-040 0 RBC LEUKOREDUCED Final 11 UNIT DIVISION 1 08:58-040 0 00 Final 12 STATUS OF UNIT 1 06:20-040 0 REL FROM ALLOC Final 13 Crossmatch result 1 08:58-040 0 ELECTRONICALLY COMPATIBLE Final
--- OUTSIDE RECORDS SUMMARY | 2022-11-16 13:27 | External Medical Summary ---
Author Name RADHA TEMPLETON Organization K01:[facility], [address] [address] Support Name Relationship Address Phone MADELEINE GARCIA MD PROV Unknown Unavailabl e Laboratory Report Ordering Provider Test Date Status MADELEINE GARCIA MD 07/16/2011 08:35:00-0400 Final Obs # Observation Date Value ABNL Reference Status Pe rforming Location 1 HbA1C 07/16/2011 17:45-0400 6.5 H 3.4-6.4 % Final 2 Glucose, estimated average 07/16/2011 17:45-0400 140 H <126 MG/DL Final
--- OUTSIDE RECORDS SUMMARY | 2022-11-16 13:27 | External Medical Summary ---
Author Name Unknown Organization K08:[address] [place] [address] Support Name Relationship Address Phone MADELEINE GARCIA MD PROV Unknown Unavailab le Laboratory Report Ordering Provider Test Date Status MADELEINE GARCIA MD 11/27/2010 10:38-0400 Final Obs # Observation Date Value ABNL Reference Status Pe rforming Location 1 FOBT (EIA) 11/27/2010 11:-0400 NEGATIVE NEG Final
--- OUTSIDE RECORDS SUMMARY | 2022-11-16 13:27 | External Medical Summary ---
Author Name ROCK ENG DO Organization K01:[facility], [address] [address] Support Name Relationship Address Phone ROCK ENG DO PROV Unknown Unavailabl e Laboratory Report Ordering Provider Test Date Status ROCK ENG DO 12/18/2010 12:57-0400 Final Obs # Observation Date Value ABNL Reference Status Pe rforming Location 1 Heparin Ind Plt Ab 12/19/2010 15:13-0400 0.143 <0.400 OD Final
--- OUTSIDE RECORDS SUMMARY | 2022-11-16 13:27 | External Medical Summary ---
Author Name ROCK ENG DO Organization K01:[facility], [address] [address] Support Name Relationship Address Phone ROCK ENG DO PROV Unknown Unavailabl e Laboratory Report Ordering Provider Test Date Status ROCK ENG DO 12/18/2010 12:57-0400 Final Obs # Observation Date Value ABNL Reference Status Pe rforming Location 1 PT 12/18/2010 15: 13.4 12.5-14.3 seconds Final 2 INR 12/18/2010 15: 1.00 0.94-1.12 Final
--- OUTSIDE RECORDS SUMMARY | 2022-11-16 13:27 | External Medical Summary ---
Author Name ROCK ENG DO Organization K01:[facility], [address] [address] Support Name Relationship Address Phone ROCK ENG DO PROV Unknown Unavailabl e Laboratory Report Ordering Provider Test Date Status ROCK ENG DO 12/18/2010 10:00-0400 Final Obs # Observation Date Value ABNL Reference Status Pe rforming Location 1 Specimen site 12/18/2010 11:33-0400 Final NARES NO STAPHYLOCOCCUS AUREUS ISOLATED FINAL
--- OUTSIDE RECORDS SUMMARY | 2022-11-16 13:28 | External Medical Summary ---
Author Name Unknown Organization [facility] [facility] Support Name Relationship Address Phone MADELEINE GARCIA MD PROV Unknown Unavailab le Laboratory Report Ordering Provider Test Date Status MADELEINE GARCIA MD 03/01/2010 08:00-0500 F Obs # Observation Date Value ABNL Reference Status Pe rforming Location 1 LDLc SerPl Direct Assay-mCnc 03/01/2010 14:50-0500 144 H 0-129 mg/dL Final
--- OUTSIDE RECORDS SUMMARY | 2022-11-16 13:28 | External Medical Summary ---
Author Name Unknown Organization K08:[facility] [place] [address] Support Name Relationship Address Phone MADELEINE GARCIA MD PROV Unknown Unavailab le Laboratory Report Ordering Provider Test Date Status MADELEINE GARCIA MD 07/08/2010 08:00-0400 Final Obs # Observation Date Value ABNL Reference Status Pe rforming Location 1 HOURS FASTING 07/09/19 11 08:02-04 00 12 hours Final 2 Triglyceride 07/09/19 11 14:- 00 113 60-290 mg/dL Final 3 Cholesterol 07/09/19 11 14:- 00 221 H <200 mg/dL Final 4 HDL 07/09/19 11 14:- 00 61 H 40-59 mg/dL Final 5 Cholesterol / HDL ratio 07/09/19 11 14:- 00 3.6 Final 6 LDL (calculated) 07/09/19 11 14:- 00 137 H 0-129 mg/dL Final 7 LDL (calculated) 07/09/19 11 14:- 00 Final 8 LDL (calculated) 07/09/19 11 14:- 00 LIPID PANEL REFERENCE RANGES (mg/dL) Final 9 LDL (calculated) 07/09/19 11 14:- 00 Final 10 LDL (calculated) 07/09/19 11 14:- 00 LDL CHOLESTEROL Final 11 LDL (calculated) 07/09/19 11 14:- 00 <100 OPTIMAL GOAL FOR HIGH RISK PATIENTS Final 12 LDL (calculated) 07/09/19 11 14:- 00 100-129 NEAR OR ABOVE NORMAL Final 13 LDL (calculated) 07/09/19 11 14:- 00 130-159 BORDERLINE HIGH Final 14 LDL (calculated) 07/09/19 11 14:- 00 160-189 HIGH Final 15 LDL (calculated) 07/09/19 11 14:- 00 >189 VERY HIGH Final 16 LDL (calculated) 07/09/19 11 14:-04 00 Final 17 LDL (calculated) 07/09/19 11 14:- 00 TOTAL CHOLESTEROL Final 18 LDL (calculated) 07/09/19 11 14:- 00 <200 DESIRABLE Final 19 LDL (calculated) 07/09/19 11 14:- 00 200-239 BORDERLINE HIGH Final 20 LDL (calculated) 07/09/19 11 14:-04 00 >239 HIGH Final 21 LDL (calculated) 07/09/19 11 14:- 00 Final 22 LDL (calculated) 07/09/19 11 14:- 00 HDL [id number] Final 23 LDL (calculated) 07/09/19 11 14:- 00 <40 LOW Final 24 LDL (calculated) 07/09/19 11 14:- 00 40-59 NORMAL Final 25 LDL (calculated) 07/09/19 11 14:-04 00 >59 HIGH Final
--- OUTSIDE RECORDS SUMMARY | 2022-11-16 13:28 | External Medical Summary ---
Author Name Unknown Organization K01:[facility], [address] [id number] Support Name Relationship Address Phone MADELEINE GARCIA MD PROV Unknown Unavailab le Laboratory Report Ordering Provider Test Date Status MADELEINE GARCIA MD 07/08/2010 08:00-0400 Final Obs # Observation Date Value ABNL Reference Status Pe rforming Location 1 HbA1C 07/08/2010 15:18-0400 6.2 3.4-6.4 % Final 2 Glucose, estimated average 07/08/2010 15:18-0400 131 H <126 MG/DL Final
--- OUTSIDE RECORDS SUMMARY | 2022-11-16 13:28 | External Medical Summary ---
Author Name Unknown Organization [employer] [facility] tem Support Name Relationship Address Phone Unavailable PROV Unknown Unavailable Laboratory Report Ordering Provider Test Date Status 11/22/2009 11:44-0400 F Obs # Observation Date Value ABNL Reference Status Pe rforming Location 1 Occult Bld Stl Ql Imm 11/22/2009 13:12-0400 NEG Final NEGATIVE
--- OUTSIDE RECORDS SUMMARY | 2022-11-16 13:28 | External Medical Summary ---
Author Name Unknown Organization [employer] [facility] tem Support Name Relationship Address Phone Unavailable PROV Unknown Unavailable Laboratory Report Ordering Provider Test Date Status 11/20/2009 08:170400 F Obs # Observation Date Value ABNL Reference Status Pe rforming Location 1 HOURS FASTING 11/20/2009 09:02-0400 12 hours Final 2 Trigl SerPl-mCnc 11/20/2009 14:54-0400 47 L 60-290 mg/dL Final 3 Cholest SerPl-mCnc 11/20/2009 14:54-0400 182 <200 mg/dL Final 4 HDLc SerPl-mCnc 11/20/2009 14:54-0400 71 H 40-59 mg/dL Final 5 Cholest/HDLc SerPl-mRto 11/20/2009 14:54-0400 2.6 Final 6 LDLc SerPl Calc-mCnc 11/20/2009 14:54-0400 102 H 0-100 mg/dL Final
--- OUTSIDE RECORDS SUMMARY | 2022-11-16 13:28 | External Medical Summary ---
Author Name Unknown Organization [email or web address] [facility] tem Support Name Relationship Address Phone Unavailable PROV Unknown Unavailable Laboratory Report Ordering Provider Test Date Status 11/20/2009 08:170400 F Obs # Observation Date Value ABNL Reference Status Pe rforming Location 1 BUN [facility] 11/20/2009 14:54-0400 32 H 6-20 mg/dL Final 2 Creat [facility] 11/20/2009 14:54-0400 0.9 0.7-1.5 mg/dL Final 3 Sodium [facility] 11/20/2009 14:54-0400 141 135-146 mmol/L Final 4 Potassium [facility] 11/20/2009 14:54-0400 4.6 3.5-5.1 mmol/L Final 5 Chloride [facility] 11/20/2009 14:54-0400 105 98-111 mmol/L Final 6 CO2 [facility] 11/20/2009 14:54-0400 27 22-32 mmol/L Final 7 Glucose [facility] 11/20/2009 14:54-0400 143 H 70-120 mg/dL Final 8 Albumin [facility] 11/20/2009 14:54-0400 4.1 3.8-5.0 g/dL Final 9 AST [facility] 11/20/2009 14:54-0400 33 10-50 U/L Final 10 ALP [facility] 11/20/2009 14:54-0400 38 25-125 U/L Final 11 Bilirub [facility] 11/20/2009 14:54-0400 0.7 0.3-1.3 mg/dL Final 12 Calcium [facility] 11/20/2009 14:54-0400 9.0 8.3-10.5 mg/dL Final 13 Prot [facility] 11/20/2009 14:54-0400 6.6 6.0-8.3 g/dL Final 14 ALT [facility] 11/20/2009 14:54-0400 19 10-50 U/L Final 15 Anion Gap SerPl-sCnc 11/20/2009 14:54-0400 9 7-15 mEq/L Final 16 Pred GFR SerPl MDRD-vRate 11/20/2009 14:54-0400 >60.0 >60 mL/min Final
--- OUTSIDE RECORDS SUMMARY | 2022-11-16 13:28 | External Medical Summary ---
Author Name Unknown Organization [email or web address]:[facility], [address] [address] Support Name Relationship Address Phone MADELEINE GARCIA MD PROV Unknown Unavailab le Laboratory Report Ordering Provider Test Date Status MADELEINE GARCIA MD 07/08/2010 08:00-0400 Final Obs # Observation Date Value ABNL Reference Status Pe rforming Location 1 PSA SCREENING 07/08/2010 14:39-0400 1.18 <4.1 ng/mL Final
--- OUTSIDE RECORDS SUMMARY | 2022-11-16 13:28 | External Medical Summary ---
Author Name Unknown Organization [facility] [employer] [facility] tem Support Name Relationship Address Phone MADELEINE GARCIA MD PROV Unknown Unavailab le Laboratory Report Ordering Provider Test Date Status MADELEINE GARCIA MD 03/01/2010 08:00-0500 F Obs # Observation Date Value ABNL Reference Status Pe rforming Location 1 BUN [facility] 03/01/2010 09:15-0500 26 H 6-20 mg/dL Final 2 Creat [facility] 03/01/2010 09:15-0500 0.9 0.7-1.5 mg/dL Final 3 Sodium [facility] 03/01/2010 09:15-0500 138 135-146 mmol/L Final 4 Potassium [facility] 03/01/2010 09:15-0500 4.7 3.5-5.1 mmol/L Final 5 Chloride [facility] 03/01/2010 09:15-0500 102 98-111 mmol/L Final 6 CO2 [facility] 03/01/2010 09:15-0500 26 22-32 mmol/L Final 7 Glucose [facility] 03/01/2010 09:15-0500 143 H 70-120 mg/dL Final 8 Albumin [facility] 03/01/2010 09:15-0500 4.3 3.8-5.0 g/dL Final 9 AST [facility] 03/01/2010 09:15-0500 21 U/L Final 10 ALP [facility]Pl-[facility] 03/01/2010 09:15-0500 38 25-115 U/L Final 11 Bilirub [facility] 03/01/2010 09:15-0500 0.5 0.3-1.3 mg/dL Final 12 Calcium [facility] 03/01/2010 09:15-0500 9.5 8.3-10.5 mg/dL Final 13 Prot [facility] 03/01/2010 09:15-0500 6.9 6.0-8.3 g/dL Final 14 ALT SerPl-cCnc 03/01/2010 09:15-0500 15 10-50 U/L Final 15 Anion Gap SerPl-sCnc 03/01/2010 09:15-0500 10 7-15 mEq/L Final 16 Pred GFR SerPl MDRD-vRate 03/01/2010 09:15-0500 >60.0 >60 mL/min Final
--- OUTSIDE RECORDS SUMMARY | 2022-11-16 13:28 | External Medical Summary ---
Author Name Unknown Organization [employer] [facility] tem Support Name Relationship Address Phone MADELEINE GARCIA MD PROV Unknown Unavailab le Laboratory Report Ordering Provider Test Date Status MADELEINE GARCIA MD 03/01/2010 08:00-0500 F Obs # Observation Date Value ABNL Reference Status Pe rforming Location 1 HOURS FASTING 0 08:06-050 0 12 hours Final 2 Trigl SerPl-mCnc 0 14:50-050 0 83 60-290 mg/dL Final 3 Cholest SerPl-mCnc 0 14:50-050 0 222 H <200 mg/dL Final 4 HDLc SerPl-mCnc 0 14:50-050 0 74 H 40-59 mg/dL Final 5 Cholest/HDLc SerPl-mRto 0 14:50-050 0 3.0 Final 6 LDLc SerPl Calc-mCnc 0 14:50-050 0 131 H 0-129 mg/dL Final 7 LDLc SerPl Calc-mCnc 0 14:50-050 0 Final 8 LDLc SerPl Calc-mCnc 0 14:50-050 0 LIPID PANEL REFERENCE RANGES (mg/dL) Final 9 LDLc SerPl Calc-mCnc 0 14:50-050 0 Final 10 LDLc SerPl Calc-mCnc 0 14:50-050 0 LDL CHOLESTEROL Final 11 LDLc SerPl Calc-mCnc 0 14:50-050 0 <100 OPTIMAL GOAL FOR HIGH RISK PATIENTS Final 12 LDLc SerPl Calc-mCnc 0 14:50-050 0 100-129 NEAR OR ABOVE NORMAL Final 13 LDLc SerPl Calc-mCnc 0 14:50-050 0 130-159 BORDERLINE HIGH Final 14 LDLc SerPl Calc-nc 0 14:50-050 0 160-189 HIGH Final 15 LDLc SerPl Calc-[facility] 0 14:50-050 0 >189 VERY HIGH Final 16 LDLc SerPl Calc-[facility] 0 14:50-050 0 Final 17 LDLc SerPl Calc-[facility] 0 14:50-050 0 TOTAL CHOLESTEROL Final 18 LDLc SerPl Calc-[facility] 0 14:50-050 0 <200 DESIRABLE Final 19 LDLc SerPl Calc-[facility] 0 14:50-050 0 200-239 BORDERLINE HIGH Final 20 LDLc SerPl Calc-[facility] 0 14:50-050 0 >239 HIGH Final 21 LDLc SerPl Calc-[facility] 0 14:50-050 0 Final 22 LDLc SerPl Calc-[facility] 0 14:50-050 0 HDL [id number] Final 23 LDLc SerPl Calc-[facility] 0 14:50-050 0 <40 LOW Final 24 LDLc SerPl Calc-[facility] 0 14:50-050 0 40-59 NORMAL Final 25 LDLc SerPl Calc-[facility] 0 14:50-050 0 >59 HIGH Final
--- OUTSIDE RECORDS SUMMARY | 2022-11-16 13:28 | External Medical Summary ---
Author Name Unknown Organization [employer] [facility] tem Support Name Relationship Address Phone Unavailable PROV Unknown Unavailable Laboratory Report Ordering Provider Test Date Status 11/20/2009 08:17-0400 F Obs # Observation Date Value ABNL Reference Status Pe rforming Location 1 Hgb A1c Fr Bld 11/20/2009 15:26-0400 6.4 3.4-6.4 % Final 2 Mean Glucose Bld gHb Est-mCnc 11/20/2009 15:26-0400 137 H <126 MG/DL Final
--- OUTSIDE RECORDS SUMMARY | 2022-11-16 13:28 | External Medical Summary ---
Author Name Unknown Organization [employer] [facility] tem Support Name Relationship Address Phone MADELEINE GARCIA MD PROV Unknown Unavailab le Laboratory Report Ordering Provider Test Date Status MADELEINE GARCIA MD 03/01/2010 08:00-0500 F Obs # Observation Date Value ABNL Reference Status Pe rforming Location 1 Hgb A1c Fr Bld 03/01/2010 16:05-0500 6.1 3.4-6.4 % Final 2 Mean Glucose Bld gHb Est-mCnc 03/01/2010 16:05-0500 128 H <126 MG/DL Final
--- OUTSIDE RECORDS SUMMARY | 2022-11-16 13:28 | External Medical Summary ---
Author Name Unknown Organization [id number] [place] [address] Support Name Relationship Address Phone MADELEINE GARCIA MD PROV Unknown Unavailab le Laboratory Report Ordering Provider Test Date Status MADELEINE GARCIA MD 07/08/2010 08:000400 Final Obs # Observation Date Value ABNL Reference Status Pe rforming Location 1 BUN 07/08/2010 09:160400 28 H 6-20 mg/dL Final 2 Creatinine 07/08/2010 09:160400 1.0 0.7-1.5 mg/dL Final 3 Sodium 07/08/2010 09:160400 140 135-146 mmol/L Final 4 Potassium 07/08/2010 09:160400 4.0 3.5-5.1 mmol/L Final 5 Cl 07/08/2010 09:16-0400 102 98-111 mmol/L Final 6 CO2 07/08/2010 09:160400 29 22-32 mmol/L Final 7 Glucose 07/08/2010 09:160400 112 70-120 mg/dL Final 8 Albumin, Serum 07/08/2010 09:160400 4.3 3.8-5.0 g/dL Final 9 AST (Aspartate aminotransferase) 07/08/2010 09:160400 17 10-50 U/L Final 10 Alk Phos 07/08/2010 09:16-0400 39 25-115 U/L Final 11 Bilirubin, Total 07/08/2010 09:16-0400 0.6 0.3-1.3 mg/dL Final 12 Calcium 07/08/2010 09:16-0400 9.9 8.3-10.5 mg/dL Final 13 Protein 07/08/2010 09:16-0400 7.1 6.0-8.3 g/dL Final 14 ALT (Alanine aminotransferase) 07/08/2010 09:160400 14 10-50 U/L Final 15 Anion gap 07/08/2010 09:16-0400 9 7-15 mmol/L Final 16 GFR / 1.73 sq M.predicted 07/08/2010 09:16-0400 >60.0 >60 mL/min Final
--- NOTE | 2022-11-16 14:46 | Operative Report ---
Post Operative Report DICTATED BY:Veena De La Torre D.O. DATE OF PROCEDURE: 11/13/2022. PREOPERATIVE DIAGNOSES: Intermittent CHB POSTOPERATIVE DIAGNOSIS: Same PROCEDURE: A dual-chamber rate responsive permanent pacemaker and intracardiac electrogram His bundle recordings, along with a peripheral venogram under fluoroscopic guidance. SURGEON: Veena De La Torre DO ASSISTANTS: None. ANESTHESIA: Monitored conscious sedation administered under my supervision by Fadi Hays.. Start time 15:41, end time 16:45, a total of 5 mg of Versed and 125 mcg of fentanyl. INTRAVENOUS FLUIDS: 241 mL. CONTRAST: 11 mL. ANTIBIOTICS: 1 grams of Ancef. BLOOD LOSS: 40 mL. URINE OUTPUT: Not applicable. SPECIMENS: None. FINDINGS: See below. DRAINS: None. COMPLICATIONS: None. CONDITION: Stable. INDICATIONS: This is a 82-year-old gentleman who has a past medical history for intermittent complete heart block, CAD-Prior inferior NE in 1994 managed at [facility]-Catheterization in 2010 following abnormal nuclear stress testing demonstrating widespread and greatly calcified CAD including a 70% LM stenosis, 80% mid LAD stenosis, 70% proximal LCX lesion and heavily disease distal stenosis, and a dominant RCA with occlusion with left to right filling- Status post 12/26/2010 off pump coronary artery bypass times 4 with a [place]ITT[place] - LAD and SVG's to the diagonal, intermediate artery, and obtuse marginal, Ischemic cardiomyopathy, LVEF 45-50%, Valve disease, aortic stenosis and insufficiency, m itral regurgitation, Palpitations previously observed in association with sensed ectopy, Labile hypertension, Dyslipidemia. Intolerant to statins and ezetimibe. On Praluent, Carotid artery disease. History of prior TIA with transient leg weakness. August 2021 Carotid duplex with stable internal carotid artery disease. +Heavily calcified plaque, Type II diabetes mellitus, BPH, Mild peripheral edema, chronic, stable, multifactorial. Due to his intermittent CHB he was recommended a pacemaker prior to hospital discharge. CONSENT: Cons[facility] The patient was informed of the risks, benefits, and alternatives to the procedure. Risks include, but not limited to, sudden cardiac , cardiac arrhythmias, cerebrovascular accident, myocardial infarction, injury to his blood vessels, chamber of the heart and lung, bleeding and infection. The patient understood these risks and agreed to the procedure as planned. Informed consent was obtained. DESCRIPTION OF PROCEDURE: The patient was brought into electrophysiology lab in a fasting state. He was connected to continuous cardiac monitoring. A timeout was performed to ensure the patient's identity and procedure correctly. He was prepped and draped in the left infraclavicular space in normal surgical standard fashion. Monitored conscious sedation was given throughout the procedure for the patient's comfort level. [place] precautions were maintained throughout the procedure. Prophylactic antibiotics were given prior to incision. A 20 mL of 1% lidocaine and bupivacaine mixture were given in the left deltopectoral groove. An incision was made in the left deltopectoral groove. Blunt dissection was performed down to the pectoralis muscle. Then, using blunt dissection over the pectoralis muscle within the pectoral fascia, a pacemaker pocket was created. Then, a peripheral venogram was performed to identify the axillary vein. Venous axillary access was obtained through a needlestick without any problems. A guidewire was inserted without any resistance. A 7- Chinese sheath was inserted over the guidewire without any resistance. Dilator was removed and a second guidewire was inserted through the sheath to allow for retained venous access. The dilator was flushed and prepped back over a 7 Chinese sheath, then we inserted over one of the guidewires. The guidewire and dilator were removed. The right atrial lead was temporarily placed in the RV apex to have back up pacing while putting the left bundle lead in position. Then a second 7 Chinese sheath was placed over the retained guidewire. The guidewire and dilator were removed. Then, the His C315 sheath was inserted through the 7-Chinese sheath over a Glidewire into the right ventricle. The Glidewire and dilator were removed. Then, the left bundle lead was advanced through the His C315 sheath and intracardiac electrogram His bundle recordings were performed when the camera was in SUNG 10. Once I found where the His bundle is, see below for results, I then moved the camera to SUNG 30 and marked where the His bundle was on my fluoroscopy screen. I came down about 2 cm from this in a line that would extend out to the apex and then started coming on pacing. Once I found an area where I had a nice W formed pace complex in my lead V1, I then moved the camera to ICELANDIC 30 and started giving a series of clockwise turns to screw the lead into the septum pausing once in a while to see how my pacing complex changed.Of note I did go through the septum 3 times so I went a little lower on the septum and was able to I developed a nice R prime, I then gave contrast through the sheath to see how far the lead was into the septum and then I slit the His C315 sheath under fluoroscopic guidance and left the 7-Chinese sheath in while I positioned the right atrial lead. Then the right atrial lead was retracted from the RV apex and positioned into right atrial appendage under fluoroscopic guidance. There was adequate pacing and sensing thresholds and no diaphragmatic stimulation with high output pacing. The 7-Chinese sheath was peeled away and the lead was fixated to the pectoralis muscle using 0 silk suture. The 7-Chinese sheath around the left bundle lead was peeled away and the lead was fixated to pectoralis muscle using 0 silk suture. The pocket was flushed with copious amounts of vancomycin and saline wash and inspected for hemostasis. The pulse generator was then placed attached to the leads making sure the pins were in appropriate position, passed set screws, and set screws were all tightened. Pulse generator was then placed in the antibiotic pouch followed then by being placed in the pocket, making sure the leads were lying flat beneath the device. The incision was closed in a 3-layer fashion using 2-0 Vicryl interrupted suture, followed by 3-0 Vicryl interrupted suture, followed by 4-0 Monocryl running stitch. Dermabond was applied followed by primaseal dressing. EQUIPMENT: 1. Pulse generator is a [employer] [place] XT DR BRODIE Carmichael [id number], serial number [id number]. 2. Right atrial lead, [employer] 5076-52 cm, serial number [id number]. 3. Left bundle lead, [employer] 3830-69 cm, serial number [id number]. 4. Tyrx pouch Ref [id number]; Lot number [id number] INTRAPROCEDURAL FINDINGS: 1. Intracardiac electrogram His bundle recordings, AH is 189 milliseconds, HV is 69 milliseconds. 2. Right atrial lead, P waves 3.7 millivolts, impedance 561 ohms, threshold 0.5 volts at 0.5 milliseconds. 3. Left bundle lead, R waves 11.1 millivolts, impedance 918 ohms, threshold 0.5 volts at 0.5 milliseconds. FINAL MEASUREMENTS THROUGH THE DEVICE: 1. Right atrial lead, P waves 2.8 millivolts, impedance 494 ohms, threshold 0.75 volt at 0.4 milliseconds. 2. Left bundle lead, R waves 13.5 millivolts, impedance 798 ohms, threshold 0.75 volts at 0.4 milliseconds. FINAL PARAMETERS: DDD 60/120, right atrial amplitude 3.5 volts, pulse width 0.4 milliseconds, sensitivity 0.3 millivolts. Left bundle lead amplitude 3.5 volts, pulse width 0.4 milliseconds, sensitivity 1.2 millivolts. IMPRESSION: Successful dual chamber rate responsive permanent pacemaker under fluoroscopic guidance along with peripheral venogram and intracardiac electrogram His bundle recordings, all under fluoroscopic guidance secondary to intermittent CHB PLAN: Monitor the patient post-procedure. A 12-lead ECG, chest x-ray in a few hours. He is not to lift the left elbow or left shoulder for 1 month. He cannot lift more than 10 pounds with the left arm for 2 weeks. He is to keep the dressing on and dry until his wound check next week.
--- NOTE | 2022-11-16 23:34 | Electrocardiogram Report ---
Test Reason : Blood Pressure : / mmHG Vent. Rate : 081 BPM Atrial Rate : 081 BPM P-R Int : 352 ms QRS Dur : 110 ms QT Int : 368 ms P-R-T Axes : 082 066 -26 degrees QTc Int : 427 ms Sinus rhythm with 1st degree A-V block with Premature ventricular complexes Inferior infarct (cited on or before 15-MAR-2013) Anterior infarct , age undetermined Abnormal ECG When compared with ECG of 16-MAR-2013 06:27, Premature ventricular complexes are now Present KS interval has increased Confirmed by Jorge Atkinson ([id number]) on 11/16/2022 11:33:43 PM Referred By: REFERRED SELF Confirmed By:Jorge Atkinson
--- NOTE | 2022-11-17 16:00 | Electrocardiogram Report ---
Test Reason : Blood Pressure : / mmHG Vent. Rate : 085 BPM Atrial Rate : 085 BPM P-R Int : 192 ms QRS Dur : 170 ms QT Int : 448 ms P-R-T Axes : 063 132 -31 degrees QTc Int : 533 ms Atrial-sensed ventricular-paced rhythm Abnormal ECG When compared with ECG of 13-NOV-2022 06:11, Ventricular pacing is now present Vent. rate has increased BY 32 BPM Confirmed by Jorge Atkinson ([id number]) on 11/17/2022 4:00:35 PM Referred By: REFERRED SELF Confirmed By:Jorge Atkinson
--- NOTE | 2022-11-18 07:10 | Electrocardiogram Report ---
Test Reason : Blood Pressure : / mmHG Vent. Rate : 053 BPM Atrial Rate : 053 BPM P-R Int : 336 ms QRS Dur : 116 ms QT Int : 426 ms P-R-T Axes : 000 077 -43 degrees QTc Int : 399 ms Poor data quality, interpretation may be adversely affected Probable Sinus bradycardia with 1st degree A-V block with marked sinus arrhythmia with occasional Pre mature ventricular complexes Cannot rule out Anterior infarct (cited on or before 15-MAR-2013) Possible Inferior infarct Abnormal ECG When compared with ECG of 12-NOV-2022 12:49, Premature ventricular complexes are now Present Vent. rate has decreased BY 28 BPM Confirmed by Jorge Atkinson ([id number]) on 11/17/2022 2:16:39 PM Referred By: REFERRED SELF Confirmed By:Jorge Atkinson
== END 2022-11-14 18:07 | disposition home or self-care (01) | DRG 243 ==
LOC: ED 12:29 → 1E 16:14 → SUATTDRO 16:14 → 1E 18:26 → 4W 11-13 18:59